=== PATIENT | male | born 1955 | race Caucasian/White ===

== ENCOUNTER 2020-04-17 15:14 | Emergency (ER) | payer MEDICARE, SELFPAY ==
[2020-04-17 16:34] VITALS: BP 203/82; PULSE 60; RESP 20; TEMP 36.6; O2SAT 98; BMI 38.0
[2020-04-17 19:24] VITALS: BP 188/63; PULSE 57; RESP 17; TEMP 36.9; O2SAT 99
--- NOTE | 2020-04-17 19:31 | ED.WEAKNESS ---
HPI - Weakness General Chief complaint: Weakness Stated complaint: SWOLLEN LEGS Time Seen by Provider: 04/17/20 18:25 Source: patient Mode of arrival: ambulatory Limitations: no limitations History of Present Illness HPI Narrative: patient with history of hypertension sleep apnea using CPAP machine the night chronic leg edema came here for 1 week of increased lethargic sleeping during daytime. Patient fairly reliable in using CPAP patient denies any headache also noticed that his leg is more swollen than before and has gained 20 lb in last few weeks patient denied any chest pain but does have shortness of breath on exertion. No cough no fever no nausea no vomiting no diarrhea patient urinating okay at this time no other family member is sick patient would like to get the COVID testing also MD Complaint: generalized weakness Onset (ago): week(s) (1) Duration: constant Location: generalized Migration: none Severity: moderate Related Data Home Medications Medication Instructions Recorded Confirmed albuterol sulfate 90 mcg/actuation 2 puff INHALATION 6XD 04/03/20 04/03/20 aerosol inhaler aspirin 81 mg tablet,delayed 81 mg PO DAILY 04/03/20 04/03/20 release calcitriol 0.5 mcg capsule 0.5 mcg PO DAILY 04/03/20 04/03/20 cyclobenzaprine 5 mg tablet 5 mg PO TID PRN 04/03/20 04/03/20 furosemide 20 mg tablet 20 mg PO DAILY 04/03/20 04/03/20 hydralazine 50 mg tablet 50 mg PO TID 04/03/20 04/03/20 hydroxychloroquine 200 mg tablet 200 mg PO DAILY 04/03/20 04/03/20 losartan 100 mg tablet 100 mg PO DAILY 04/03/20 04/03/20 pravastatin 20 mg tablet 20 mg PO DAILY 04/03/20 04/03/20 prednisone 20 mg tablet 20 mg PO DAILY PRN 04/03/20 04/03/20 terazosin 5 mg capsule 5 mg PO DAILY 04/03/20 04/03/20 tramadol 50 mg tablet 50 mg PO Q8H PRN 04/03/20 04/03/20 Previous Rx's Medication Instructions Recorded allopurinol 100 mg tablet 200 mg PO DAILY #60 tab 04/12/20 Allergies Allergy/AdvReac Type Severity Reaction Status Date / Time No Known Allergies Allergy Verified 04/03/20 15:42 [No Known Allergies*] Review of Systems Review of Systems: REVIEW OF SYSTEMS: Pertinent positives and negatives are stated above in the history. GEN: no fevers, chills, fatigue +++ HEENT: no nasal congestion, sore throat, ear pain NEURO: no headache, dizziness, focal weakness PULM: no cough, shortness of breath CV: no chest pain, palpitations, LE edema ABD: no abdominal pain, nausea, vomiting, diarrhea : no dysuria, urgency, frequency SKIN: no rash ROS otherwise negative x 10 PMFSH Past Medical History Medical History Edema Gout High cholesterol HTN (hypertension) Lupus Social History Social History Household Members: Significant Other Housing: House Alcohol intake: never Smoking Status: Former smoker Smoked in Last 30 Days: No Use of substances other than those prescribed or required for medical reasons: No Advance Directives: No Advance Directives Information Provided: Yes Physical Exam Vital Signs: Vital Signs: Vital Signs Temp Pulse Resp BP Pulse Ox 04/17/20 19:24 98.5 F 57 17 188/63 H 99 04/17/20 16:34 97.8 F 60 20 203/82 H 98 Body Mass Index 38.0 VITAL SIGNS: Reviewed. GENERAL: Well developed, well nourished, in no acute distress. HEAD: Normocephalic/atraumatic, EYES: PERRLA No pallor/icterus noted EARS: normal without abnormality NOSE: Nares patent bilateral OROPHARYNX: Oral mucosa moist no oral lesions NECK: Supple, no adenopathy LUNGS: Normal breath sounds. No adventitious sounds or accessory muscle use CARDIOVASCULAR: Regular rate and rhythm without noted murmurs, no JVD or lower extremity edema. ABDOMEN: Soft, non-tender, non-distended with bowel sounds. No rigidity. No guarding. No palpable masses or hernias noted MUSCULOSKELETAL: No tenderness, deformities, EXTREMITIES:4+ edema.L>R SKIN: no rashes, ulcerations, jaundice, pallor, or petechiae NEUROLOGIC: Alert and oriented x 3. Strength and sensation to light touch were grossly intact Course Course Course Narrative: patient with nonspecific weakness chronic leg edema and chronic renal failure creatinine slightly increased from 1.9 to 2.1 patient has a follow-up plan with urologist [id number] testing is negative chest x-ray negative no signs of fluid overload at this time patient already on Lasix at home advised to continue same and follow with hospital receiving clerk KARY Connor Lab Data Result diagrams: 04/17/20 20:33 04/17/20 20:33 Labs: Lab Results 04/17/20 04/17/20 04/17/20 Range/Units 20:33 20:33 20:33 WBC 4.7 L (4.8-10.8) X10*3/uL RBC 3.59 L (4.60-5.80) X10*6/uL Hgb 11.2 L (14.0-18.0) g/dl Hct 33.3 L (42-52) % MCV 92.8 (80-98) fL MCH 31.2 (27.0-33.0) pg MCHC 33.6 (31.0-36.0) g/dl RDW 14.0 (11.0-16.0) % Plt Count 146 L (160-400) X10*3/uL MPV 10.6 (9.4-12.4) fL Immature Gran % (Auto) 0.2 (0.0-0.4) % Neut % (Auto) 74.2 H (45-73) % Lymph % (Auto) 15.9 L (20-40) % [place] % (Auto) 8.6 (2-11) % Eos % (Auto) 0.0 (0-4) % Baso % (Auto) 1.1 (0-2) % Lymph # (Auto) 0.7 L (1.2-4.9) X10*3/uL [place] # (Auto) 0.4 (0.1-1.2) X10*3/uL Eos # (Auto) 0.0 (0.0-0.4) X10*3/uL Baso # (Auto) 0.1 (0.0-0.2) X10*3/uL Abs Immat Gran (auto) 0.01 (0.00-0.03) X10*3/uL Absolute Neuts (auto) 3.5 (2.0-8.3) X10*3/uL Absolute Nucleated RBC 0.000 (0.0-0.012) X10*3/uL Nucleated RBC % (auto) 0.0 (0.0-0.2) /100WBC Sodium 139 (135-145) mmol/L Potassium 4.3 (3.3-5.1) mmol/l Chloride 107 (96-108) mmol/L Carbon Dioxide 22 (22-29) mmol/L Anion Gap 14 (12-20) BUN 48 H (9-16) mg/dL Creatinine 2.10 H (0.5-1.4) mg/dL Estim Creat Clear Calc 47.0 Estimated GFR 32 Random Glucose 90 (60-115) mg/dL Calcium 8.3 L (8.4-10.2) mg/dL Total Bilirubin 0.8 (0.0-1.0) mg/dL Direct Bilirubin 0.3 (0.0-0.5) mg/dL AST 27 (5-37) U/L ALT 23 (0-40) U/L Alkaline Phosphatase 166 H (39-117) U/L B-Natriuretic Peptide 229 H (<100) pg/mL Total Protein 6.8 (6.5-8.0) g/dL Albumin 4.0 (3.5-5.0) g/dL Urine Color Urine Appearance Urine pH (5.0-8.0) Ur Specific [place] (1.005-1.025) Urine Protein (NEG-TRACE) MG/DL Urine Glucose (UA) (NEG) MG/DL Urine Ketones (NEG) MG/DL Urine Blood (NEG) Urine Nitrite (NEG) Ur Leukocyte Esterase (NEG) Urine RBC (0) /HPF Urine WBC (0-4) /HPF Ur Squamous Epith Cells /LPF Urine Bacteria /LPF Coronavirus (PCR) (Negative) 04/17/20 04/17/20 Range/Units 20:37 21:33 WBC (4.8-10.8) X10*3/uL RBC (4.60-5.80) X10*6/uL Hgb (14.0-18.0) g/dl Hct (42-52) % MCV (80-98) fL MCH (27.0-33.0) pg MCHC (31.0-36.0) g/dl RDW (11.0-16.0) % Plt Count (160-400) X10*3/uL MPV (9.4-12.4) fL Immature Gran % (Auto) (0.0-0.4) % Neut % (Auto) (45-73) % Lymph % (Auto) (20-40) % [place] % (Auto) (2-11) % Eos % (Auto) (0-4) % Baso % (Auto) (0-2) % Lymph # (Auto) (1.2-4.9) X10*3/uL [place] # (Auto) (0.1-1.2) X10*3/uL Eos # (Auto) (0.0-0.4) X10*3/uL Baso # (Auto) (0.0-0.2) X10*3/uL Abs Immat Gran (auto) (0.00-0.03) X10*3/uL Absolute Neuts (auto) (2.0-8.3) X10*3/uL Absolute Nucleated RBC (0.0-0.012) X10*3/uL Nucleated RBC % (auto) (0.0-0.2) /100WBC Sodium (135-145) mmol/L Potassium (3.3-5.1) mmol/l Chloride (96-108) mmol/L Carbon Dioxide (22-29) mmol/L Anion Gap (12-20) BUN (9-16) mg/dL Creatinine (0.5-1.4) mg/dL Estim Creat Clear Calc Estimated GFR Random Glucose (60-115) mg/dL Calcium (8.4-10.2) mg/dL Total Bilirubin (0.0-1.0) mg/dL Direct Bilirubin (0.0-0.5) mg/dL AST (5-37) U/L ALT (0-40) U/L Alkaline Phosphatase (39-117) U/L B-Natriuretic Peptide (<100) pg/mL Total Protein (6.5-8.0) g/dL Albumin (3.5-5.0) g/dL Urine Color COLORLESS Urine Appearance CLEAR Urine pH 5.5 (5.0-8.0) Ur Specific [place] 1.015 (1.005-1.025) Urine Protein 1+ H (NEG-TRACE) MG/DL Urine Glucose (UA) NEG (NEG) MG/DL Urine Ketones NEG (NEG) MG/DL Urine Blood TRACE (NEG) Urine Nitrite NEG (NEG) Ur Leukocyte Esterase NEG (NEG) Urine RBC 0-2 (0) /HPF Urine WBC 0-2 (0-4) /HPF Ur Squamous Epith Cells TRACE /LPF Urine Bacteria NONE /LPF Coronavirus (PCR) NEGATIVE (Negative) Discharge Plan Discharge Clinical Impression: Chronic renal disease Qualifiers: Chronic kidney disease stage: stage 3 (moderate) Chronic kidney disease stage 3 subtype: stage 3b (GFR 30-44) Qualified Code(s): N18.32 - Chronic kidney disease, stage 3b Patient Disposition: Home, Self-Care Instructions: Chronic Kidney Disease (ED) Additional Instructions: continue taking medications and follow-up with urologist. , drink plenty of fluids Prescriptions: No Action allopurinol 100 mg tablet 200 mg PO DAILY Qty: 60 RF: 5 hydroxychloroquine [Plaquenil] 200 mg tablet 200 mg PO DAILY RF: 0 calcitriol 0.5 mcg capsule 0.5 mcg PO DAILY RF: 0 losartan 100 mg tablet 100 mg PO DAILY RF: 0 cyclobenzaprine 5 mg tablet 5 mg PO TID PRNRF: 0 tramadol 50 mg tablet 50 mg PO Q8H PRNRF: 0 albuterol sulfate [ProAir HFA] 90 mcg/actuation HFA aerosol inhaler 2 puff inhalation 6XD RF: 0 furosemide 20 mg tablet 20 mg PO DAILY RF: 0 pravastatin 20 mg tablet 20 mg PO DAILY RF: 0 aspirin [Adult Aspirin Regimen] 81 mg tablet,delayed release (DR/EC) 81 mg PO DAILY RF: 0 hydralazine 50 mg tablet 50 mg PO TID RF: 0 terazosin 5 mg capsule 5 mg PO DAILY RF: 0 prednisone 20 mg tablet 20 mg PO DAILY PRN (Reason: for gout attack) RF: 0 Interventions: ED Discharge Assessment Last Done: 04/17/20 22:51 Discharge Date/Time: 04/17/20 23:07
--- NOTE | 2020-04-17 20:15 | XR_ITS ---
EXAMINATION: XR CHEST CLINICAL INFORMATION: Shortness of breath COMPARISON: Chest x-ray 10/12/2017 TECHNIQUE: Frontal portable view of the chest was obtained. 8:17 PM FINDINGS: Lungs are clear. No pulmonary vascular congestion. There is no pleural effusion. The heart size is normal. The cardiac and mediastinal contours are normal. There are calcifications of the thoracic aorta. There are multilevel degenerative changes of dorsal spine. Partial visualization of the shoulder. Bilateral again demonstrating degenerative changes of glenohumeral joints bilaterally. XR/XR chest 1V IMPRESSION: No acute abnormality of the chest.
--- NOTE | 2020-04-17 20:15 | ECG_ITS ---
Test Reason : WEAKNESS Blood Pressure : / mmHG Vent. Rate : 059 BPM Atrial Rate : 375 BPM P-R Int : 000 ms QRS Dur : 152 ms QT Int : 454 ms P-R-T Axes : 000 -43 037 degrees QTc Int : 449 ms Junctional bradycardia (no P-waves found) Left axis deviation Right bundle branch block Abnormal ECG When compared with ECG of 31-MAY-2018 13:23, (no P-waves found) Referred By: Stephen Tapia Electronically Signed By:ERLINDA ROBERSON MD
[2020-04-17 20:39] LABS: MANUAL DIFF FLAG NO
[2020-04-17 20:40] LABS: Basophils Absolute Auto 0.1 X10*3/uL (0.0-0.2); Basophils Percent Auto 1.1 % (0-2); Hematocrit 33.3 % (42-52); Hemoglobin 11.2 g/dl (14.0-18.0); Imm Gran Abs Auto 0.01 X10*3/uL (0.00-0.03); Imm Gran Pct Auto 0.2 % (0.0-0.4); Lymphocytes Absolute Auto 0.7 X10*3/uL (1.2-4.9); Lymphocytes Percent Auto 15.9 % (20-40); Mean Corpuscular HGB Conc 33.6 g/dl (31.0-36.0); Mean Corpuscular Hemoglobin 31.2 pg (27.0-33.0); Mean Corpuscular Volume 92.8 fL (80-98); Mean Platelet Volume 10.6 fL (9.4-12.4); Monocytes Absolute Auto 0.4 X10*3/uL (0.1-1.2); Monocytes Percent Auto 8.6 % (2-11); Neutrophils Absolute Auto 3.5 X10*3/uL (2.0-8.3); Neutrophils Percent Auto 74.2 % (45-73); Platelet Count 146 X10*3/uL (160-400); Red Blood Count 3.59 X10*6/uL (4.60-5.80); White Blood Count 4.7 X10*3/uL (4.8-10.8)
[2020-04-17 21:08] LABS: Alanine Aminotransferase 23 U/L (0-40); Alkaline Phosphatase 166 U/L (39-117); Anion Gap 14 (12-20); Aspartate Amino Transferase 27 U/L (5-37); Bilirubin Direct 0.3 mg/dL (0.0-0.5); Bilirubin Total 0.8 mg/dL (0.0-1.0); Blood Urea Nitrogen 48 mg/dL (9-16); Calcium 8.3 mg/dL (8.4-10.2); Carbon Dioxide 22 mmol/L (22-29); Chloride 107 mmol/L (96-108); Estimated Glomerular Filt Rate 32; Glucose Random 90 mg/dL (60-115); Potassium 4.3 mmol/l (3.3-5.1); Sodium 139 mmol/L (135-145); Total Protein 6.8 g/dL (6.5-8.0)
[2020-04-17 21:11] LABS: B Type Natriuretic Peptide 229 pg/mL (<100)
[2020-04-17 21:40] LABS: Glucose Urine UA NEG (NEG); Leukocyte Esterase Urine NEG (NEG); Nitrite Urine NEG (NEG); PH 5.5 (5.0-8.0); Specific Gravity - Urine 1.015 (1.005-1.025); Urine Blood TRACE (NEG); Urine Ketones NEG (NEG); Urine Protein 1+ MG/DL (NEG-TRACE)
[2020-04-17 21:41] LABS: Appearance Urine CLEAR; Color Urine COLORLESS
[2020-04-17 21:50] LABS: WBC Urine 0-2 /HPF (0-4)
[2020-04-17 21:51] LABS: RBC Urine 0-2 /HPF (0); Squamous Epithelial Cell Urine TRACE /LPF
[2020-04-17 22:22] LABS: SARS COV2 PCR INHOUSE NEGATIVE (Negative)
== END 2020-04-17 23:07 | disposition home or self-care (01) ==
PROVIDERS: Emergency Provider Internal Medicine; PCP Internal Medicine
DX: I12.9 Hypertensive chronic kidney disease with stage 1 through stage 4 chronic kidney disease, or unspecified chronic kidney disease (principal); N18.32 Chronic kidney disease, stage 3b; R60.0 Localized edema; G47.33 Obstructive sleep apnea (adult) (pediatric); Z20.828 Contact with and (suspected) exposure to other viral communicable diseases; Z79.899 Other long term (current) drug therapy; Z87.891 Personal history of nicotine dependence
CPT/HCPCS: 36415; 71045; 80048; 80076; 81001; 83880; 85025; 93005; 99283; 99284; U0003

== ENCOUNTER 2020-05-04 14:59 | Outpatient (REF) | payer MEDICARE, SELFPAY ==
[2020-05-04 16:21] LABS: MANUAL DIFF FLAG NO
[2020-05-04 16:26] LABS: Appearance Urine CLEAR; Basophils Absolute Auto 0.1 X10*3/uL (0.0-0.2); Color Urine YELLOW; Eosinophils Absolute Auto 0.1 X10*3/uL (0.0-0.4); Glucose Urine UA NEG (NEG); Hematocrit 32.3 % (42-52); Hemoglobin 10.7 g/dl (14.0-18.0); Imm Gran Abs Auto 0.02 X10*3/uL (0.00-0.03); Imm Gran Pct Auto 0.4 % (0.0-0.4); Leukocyte Esterase Urine NEG (NEG); Lymphocytes Absolute Auto 0.8 X10*3/uL (1.2-4.9); Lymphocytes Percent Auto 16.4 % (20-40); Mean Corpuscular HGB Conc 33.1 g/dl (31.0-36.0); Mean Corpuscular Volume 93.6 fL (80-98); Mean Platelet Volume 10.8 fL (9.4-12.4); Monocytes Absolute Auto 0.4 X10*3/uL (0.1-1.2); Monocytes Percent Auto 7.2 % (2-11); Neutrophils Absolute Auto 3.6 X10*3/uL (2.0-8.3); Nitrite Urine NEG (NEG); Platelet Count 137 X10*3/uL (160-400); Red Blood Count 3.45 X10*6/uL (4.60-5.80); Red Cell Distribution Width 14.8 % (11.0-16.0); Urine Blood NEG (NEG); Urine Ketones NEG (NEG); Urine Protein TRACE MG/DL (NEG-TRACE); White Blood Count 4.8 X10*3/uL (4.8-10.8)
[2020-05-04 16:32] LABS: RBC Urine 0 /HPF (0); WBC Urine 0 /HPF (0-4)
[2020-05-04 16:44] LABS: Cholesterol 129 mg/dL; HDL Cholesterol 44 mg/dL; LDL Cholesterol Calculated 68 mg/dl; Triglycerides 87 mg/dL
[2020-05-04 16:45] LABS: Alanine Aminotransferase 24 U/L (0-40); Albumin Level 3.9 g/dL (3.5-5.0); Alkaline Phosphatase 144 U/L (39-117); Anion Gap 12 (12-20); Aspartate Amino Transferase 25 U/L (5-37); Bilirubin Total 0.6 mg/dL (0.0-1.0); Blood Urea Nitrogen 59 mg/dL (9-16); C Reactive Protein 0.58 mg/dL (< or = 0.50); Calcium 8.5 mg/dL (8.4-10.2); Carbon Dioxide 25 mmol/L (22-29); Chloride 107 mmol/L (96-108); Estimated Glomerular Filt Rate 32; Glucose Random 90 mg/dL (60-115); Potassium 4.4 mmol/l (3.3-5.1); Sodium 140 mmol/L (135-145); Total Protein 6.8 g/dL (6.5-8.0); Uric Acid 5.9 mg/dL (3.4-7.0)
[2020-05-04 16:53] LABS: Creatinine Urine 32.71 mg/dL; Microalbum/Creatinine Ratio Ur 690.9 ug/mg cr
[2020-05-04 17:07] LABS: Free T4 (Free Thyroxine) 1.09 ng/dL (0.71-1.85); Thyroid Stimulating Hormone 1.23 uIU/mL (0.32-4.0)
[2020-05-04 18:17] LABS: Erythrocyte Sedimentation Rate 29 MM/HR (0-15)
[2020-05-05 11:06] LABS: Anti DNA DS Antibody 27 IU/mL
[2020-05-07 16:42] LABS: Complement C3 87 mg/dL (82-185)
== END 2020-05-04 15:00 | disposition home or self-care (01) ==
LOC: HO.LAB 14:59
PROVIDERS: Student in an Organized Health Care Education/Training Program; PCP Internal Medicine; Visit Provider Internal Medicine
DX: M32.9 Systemic lupus erythematosus, unspecified (principal); M1A.00X0 Idiopathic chronic gout, unspecified site, without tophus (tophi); E11.65 Type 2 diabetes mellitus with hyperglycemia; E78.00 Pure hypercholesterolemia, unspecified; I10 Essential (primary) hypertension
CPT/HCPCS: 36415; 80053; 80061; 81001; 82043; 84439; 84443; 84550; 85025; 85652; 86140; 86160; 86225

== ENCOUNTER 2020-07-05 13:41 | Outpatient (REF) | payer MEDICARE, SELFPAY ==
[2020-07-05 14:51] LABS: Appearance Urine CLEAR; Color Urine YELLOW; Glucose Urine UA NEG (NEG); Leukocyte Esterase Urine NEG (NEG); Nitrite Urine NEG (NEG); PH 5.5 (5.0-8.0); Urine Blood NEG (NEG); Urine Ketones NEG (NEG); Urine Protein 2+ MG/DL (NEG-TRACE)
[2020-07-05 15:01] LABS: Basophils Absolute Auto 0.1 X10*3/uL (0.0-0.2); Basophils Percent Auto 1.3 % (0-2); Hematocrit 30.4 % (42-52); Hemoglobin 10.2 g/dl (14.0-18.0); Imm Gran Abs Auto 0.01 X10*3/uL (0.00-0.03); Imm Gran Pct Auto 0.3 % (0.0-0.4); Lymphocytes Absolute Auto 0.6 X10*3/uL (1.2-4.9); Lymphocytes Percent Auto 15.8 % (20-40); MANUAL DIFF FLAG SCAN; Mean Corpuscular HGB Conc 33.6 g/dl (31.0-36.0); Mean Corpuscular Hemoglobin 31.9 pg (27.0-33.0); Mean Platelet Volume 10.9 fL (9.4-12.4); Monocytes Absolute Auto 0.3 X10*3/uL (0.1-1.2); Monocytes Percent Auto 7.7 % (2-11); Neutrophils Absolute Auto 2.9 X10*3/uL (2.0-8.3); Neutrophils Percent Auto 73.9 % (45-73); Platelet Count 141 X10*3/uL (160-400); Red Cell Distribution Width 14.1 % (11.0-16.0); SCAN SMEAR FLAG 1; White Blood Count 3.9 X10*3/uL (4.8-10.8)
[2020-07-05 15:03] LABS: RBC Urine 0-2 /HPF (0); Squamous Epithelial Cell Urine TRACE /LPF; WBC Urine 0-2 /HPF (0-4)
[2020-07-05 15:04] LABS: Estimated Average Glucose 108 mg/dL; Hemoglobin A1c % 5.4 %
[2020-07-05 15:20] LABS: Alanine Aminotransferase 19 U/L (0-40); Albumin Level 3.9 g/dL (3.5-5.0); Alkaline Phosphatase 155 U/L (39-117); Anion Gap 13 (12-20); Aspartate Amino Transferase 22 U/L (5-37); Bilirubin Total 0.5 mg/dL (0.0-1.0); Blood Urea Nitrogen 57 mg/dL (9-16); C Reactive Protein 1.58 mg/dL (< or = 0.50); Calcium 8.6 mg/dL (8.4-10.2); Carbon Dioxide 25 mmol/L (22-29); Chloride 105 mmol/L (96-108); Estimated Glomerular Filt Rate 30; Glucose Random 104 mg/dL (60-115); Potassium 4.3 mmol/l (3.3-5.1); Sodium 139 mmol/L (135-145); Total Protein 6.6 g/dL (6.5-8.0)
[2020-07-05 15:36] LABS: SLIDE REVIEW VERIFIED
[2020-07-05 15:46] LABS: Erythrocyte Sedimentation Rate 37 MM/HR (0-15)
[2020-07-06 13:27] LABS: Complement C3 110 mg/dL (82-185)
[2020-07-07 12:37] LABS: Anti DNA DS Antibody 22 IU/mL
[2020-07-10 12:22] LABS: Histone Antibody 1.5 U (<1.0)
== END 2020-07-05 13:42 | disposition home or self-care (01) ==
LOC: HO.LAB 13:41
PROVIDERS: PCP Internal Medicine; Referring Provider Internal Medicine; Visit Provider Student in an Organized Health Care Education/Training Program
DX: M32.9 Systemic lupus erythematosus, unspecified (principal); M1A.00X0 Idiopathic chronic gout, unspecified site, without tophus (tophi); E11.65 Type 2 diabetes mellitus with hyperglycemia; Z87.891 Personal history of nicotine dependence; Z79.899 Other long term (current) drug therapy
CPT/HCPCS: 36415; 80053; 81001; 83036; 83516; 84550; 85025; 85652; 86140; 86160; 86225; 99212

== ENCOUNTER 2020-10-16 13:13 | Outpatient (REF) | payer MEDICARE, SELFPAY ==
[2020-10-16 15:14] LABS: Basophils Percent Auto 0.6 % (0-2); Hematocrit 26.1 % (42-52); Imm Gran Abs Auto 0.01 X10*3/uL (0.00-0.03); Imm Gran Pct Auto 0.2 % (0.0-0.4); Lymphocytes Absolute Auto 0.6 X10*3/uL (1.2-4.9); Lymphocytes Percent Auto 11.8 % (20-40); MANUAL DIFF FLAG SCAN; Mean Corpuscular Hemoglobin 31.4 pg (27.0-33.0); Mean Corpuscular Volume 95.3 fL (80-98); Mean Platelet Volume 11.3 fL (9.4-12.4); Monocytes Absolute Auto 0.4 X10*3/uL (0.1-1.2); Monocytes Percent Auto 7.8 % (2-11); Neutrophils Percent Auto 79.6 % (45-73); Platelet Count 144 X10*3/uL (160-400); Red Blood Count 2.74 X10*6/uL (4.60-5.80); Red Cell Distribution Width 14.6 % (11.0-16.0); SCAN SMEAR FLAG 1
[2020-10-16 15:17] LABS: Glucose Urine UA NEG (NEG); Leukocyte Esterase Urine NEG (NEG); Nitrite Urine NEG (NEG); PH 5.5 (5.0-8.0); Urine Blood NEG (NEG); Urine Ketones NEG (NEG); Urine Protein TRACE MG/DL (NEG-TRACE)
[2020-10-16 15:19] LABS: Appearance Urine CLEAR; Color Urine YELLOW
[2020-10-16 15:21] LABS: Estimated Average Glucose 103 mg/dL; Hemoglobin A1c % 5.2 %
[2020-10-16 15:22] LABS: Immature Retic Fraction 6.9 % (2.3-13.4); Retic HGB Equivalent 32.5 pg (30.0-35.0); Reticulocyte Percent 1.1 % (0.5-1.8)
[2020-10-16 15:26] LABS: Hemoglobin 8.6 g/dl (14.0-18.0)
[2020-10-16 15:29] LABS: B Type Natriuretic Peptide 226 pg/mL (<100)
[2020-10-16 15:34] LABS: RBC Urine 0 /HPF (0); WBC Urine 0 /HPF (0-4)
[2020-10-16 15:40] LABS: Uric Acid 5.3 mg/dL (3.4-7.0)
[2020-10-16 15:51] LABS: Thyroid Stimulating Hormone 1.17 uIU/mL (0.32-4.0)
[2020-10-16 15:55] LABS: SLIDE REVIEW VERIFIED
[2020-10-16 15:59] LABS: Alanine Aminotransferase 13 U/L (0-40); Albumin Level 3.4 g/dL (3.5-5.0); Alkaline Phosphatase 151 U/L (39-117); Anion Gap 14 (12-20); Aspartate Amino Transferase 19 U/L (5-37); Bilirubin Total 0.6 mg/dL (0.0-1.0); Blood Urea Nitrogen 65 mg/dL (9-16); C Reactive Protein 5.95 mg/dL (< or = 0.50); Calcium 8.2 mg/dL (8.4-10.2); Carbon Dioxide 18 mmol/L (22-29); Chloride 111 mmol/L (96-108); Estimated Glomerular Filt Rate 26; Glucose Random 104 mg/dL (60-115); Iron 24 mcg/dL (45-160); Percent Iron Saturation 12 % (15-50); Potassium 4.7 mmol/L (3.3-5.1); Sodium 138 mmol/L (135-145); Total Iron Binding Capacity 208 mcg/dL (228-428); Total Protein 6.2 g/dL (6.5-8.0); Unsaturated Iron Binding 184 ug/dL
[2020-10-16 16:00] LABS: Free T4 (Free Thyroxine) 0.94 ng/dL (0.71-1.85); Prostate Specific Antigen Scr 1.03 ng/mL (<0.05-4.0)
[2020-10-16 16:09] LABS: Folate 18.6 ng/mL (> or = 4.0); Vitamin B12 600 pg/mL (200-900)
[2020-10-16 16:29] LABS: Erythrocyte Sedimentation Rate 55 MM/HR (0-15)
[2020-10-16 16:36] LABS: Ferritin 272 ng/mL (20-250)
[2020-10-17 11:26] LABS: Anti DNA DS Antibody 15 IU/mL
[2020-10-17 12:17] LABS: Complement C3 122 mg/dL (82-185)
== END 2020-10-16 13:14 | disposition home or self-care (01) ==
LOC: HO.LAB 13:13
PROVIDERS: PCP Internal Medicine; Visit Provider Student in an Organized Health Care Education/Training Program
DX: M32.9 Systemic lupus erythematosus, unspecified (principal); M1A.00X0 Idiopathic chronic gout, unspecified site, without tophus (tophi); E78.00 Pure hypercholesterolemia, unspecified; E11.65 Type 2 diabetes mellitus with hyperglycemia; I73.9 Peripheral vascular disease, unspecified; Z79.899 Other long term (current) drug therapy
CPT/HCPCS: 36415; 80053; 81001; 82607; 82728; 82746; 83036; 83540; 83880; 84153; 84439; 84443; 84550; 85025; 85045; 85652; 86140; 86160; 86225; 99212

== ENCOUNTER 2020-10-26 08:37 | Outpatient (RCR) | payer MEDICARE, SELFPAY | END 2020-10-31 09:12 | disposition home or self-care (01) | LOC: HO.WCC 08:37 | PROVIDERS: Visit Provider Physician Assistant | DX: E11.40 Type 2 diabetes mellitus with diabetic neuropathy, unspecified (principal); Q82.0 Hereditary lymphedema; M10.00 Idiopathic gout, unspecified site; Z79.899 Other long term (current) drug therapy | CPT/HCPCS: 99202 ==

== ENCOUNTER 2020-12-17 20:20 | Emergency (ER) | payer MEDICARE, SELFPAY ==
--- NOTE | ~2020-12-17 | XR_ITS ---
EXAMINATION: XR CHEST CLINICAL INFORMATION: Evaluate for pulmonary edema COMPARISON: 04/17/2020 TECHNIQUE: Frontal view of the chest was obtained. FINDINGS: There is pulmonary venous congestion without overt edema. Normal heart size for portable technique. Aorta is atherosclerotic. No focal consolidation. No pleural effusion or pneumothorax. Severe degenerative changes of the bilateral glenohumeral joints. XR/XR chest 1V IMPRESSION: Pulmonary venous congestion without overt edema.
[2020-12-17 20:28] VITALS: BP 130/46; PULSE 67; RESP 18; TEMP 36.9; O2SAT 95; BMI 39.3
--- NOTE | 2020-12-17 20:57 | ED_ITS ---
HPI - General Adult General Chief complaint: General Medical Stated complaint: enlarge scrotum Time Seen by Provider: 12/17/20 20:40 Source: patient Mode of arrival: ambulatory Limitations: no limitations History of Present Illness HPI narrative: patient comes emergency room complaining of an enlarged scrotum for the last 2 days, denies testicular pain. Patient denies pain. patient has been taking Lasix for several months now. Patient also has chronic lymphedema. Patient denies dysuria. Of note, patient states that he is known to be anemic, he is due for an iron infusion this week. Patient denies fever chills Related Data Home Medications Medication Instructions Recorded Confirmed aspirin 81 mg tablet,delayed 81 mg PO DAILY 04/03/20 12/03/20 release calcitriol 0.5 mcg capsule 0.5 mcg PO DAILY 04/03/20 12/03/20 hydralazine 50 mg tablet 50 mg PO TID 04/03/20 12/03/20 losartan 100 mg tablet 100 mg PO DAILY 04/03/20 12/03/20 furosemide 40 mg tablet 80 mg PO DAILY tab 05/01/20 12/03/20 nifedipine 90 mg tablet,extended 90 mg PO DAILY 05/01/20 12/03/20 release albuterol sulfate 90 mcg/actuation 2 puff INHALATION 6XD PRN 07/05/20 12/03/20 aerosol inhaler Previous Rx's Medication Instructions Recorded allopurinol 300 mg tablet 300 mg PO DAILY #90 tab 07/03/20 tramadol 50 mg tablet 50 mg PO Q8H PRN #90 tab 07/05/20 terazosin 5 mg capsule 5 mg PO DAILY #90 cap 07/12/20 pravastatin 20 mg tablet 20 mg PO BEDTIME #90 tab 08/23/20 kylah.stocking,knee,reg,xlrg #12 ea 11/01/20 miscellaneous medical supply 1 ea MISCELLANEOUS DAILY #1 ea 11/27/20 Juxta Lite Compression wraps - #2 ea 12/04/20 Adjustable -for chronic ulcers with open wounds bilat lower extremities hydroxychloroquine 200 mg tablet 400 mg PO DAILY #60 tab 12/06/20 Allergies Allergy/AdvReac Type Severity Reaction Status Date / Time No Known Allergies Allergy Verified 12/03/20 17:30 [No Known Allergies*] Review of Systems Review of Systems: Constitutional : No Weight loss, No Fever, No Chills, No Night Sweats, No Fatigue, No Malaise ENT/Mouth : No Hearing loss, No Ear Pain, No Nasal Congestion, No Sinus Pain, No Hoarseness, No sore throat, No Rhinorrhea, No Swallowing Difficulty Eyes: No Eye Pain, No Swelling, No Redness, No Foreign Body, No Discharge, No Vision Changes Cardiovascular : No Chest Pain, No SOB, No Dyspnea on Exertion, No Orthopnea, No Edema, No Palpitations Respiratory : No Cough, No Sputum, No Wheezing, No Smoke Exposure, No Dyspnea Gastrointestinal : No Nausea, No Vomiting, No Diarrhea, No Constipation, No abdominal Pain, No Hematochezia, No Melena Genitourinary : complaining of scrotal swelling, denies testicular pain, No Dysuria, No Urinary Frequency, No Hematuria, No Urinary Incontinence, No Urgency, No Flank Pain, No Urinary Flow Changes, No Hesitancy Musculoskeletal : No joint pain, No Myalgias, No Joint Swelling Skin : chronic bilateral lymphedema Neuro : No Weakness, No Numbness, No Paresthesias, No Loss of Consciousness, No Dizziness, No Headache Psych : No Anxiety/Panic, No Depression, No SI/HI/AH/VH, No Social Issues, Heme/Lymph: No Bruising, No Bleeding,No Lymphadenopathy Endocrine : No Polyuria, No Polydipsia, No Temperature Intolerance [facility], [facility] Past Medical History Medical History Abdominal distension Anemia Anxiety and depression BPH (benign prostatic hyperplasia) Chronic kidney disease COPD (chronic obstructive pulmonary disease) Diabetic retinopathy Edema Essential thrombocytopenia Gout High cholesterol HTN (hypertension) Hypercholesterolemia Lumbar degenerative disc disease Lupus Lymphedema Obesity (BMI 30-39.9) Obstructive sleep apnea Osteoarthritis Peripheral neuropathy Peripheral vascular disease Pulmonary hypertension Type 2 diabetes mellitus with hyperglycemia Venous stasis dermatitis Surgical History H/O prior ablation treatment History of bilateral cataract extraction History of carpal tunnel release History of tonsillectomy Family History Family History Father Prostate cancer CVD (cardiovascular disease) Mother Hemochromatosis Brother Motor vehicle accident Sister CAD (coronary artery disease) Maternal Grandfather Myocardial infarction Social History Social History Household Members: Significant Other Housing: House Alcohol intake: never Patient Tobacco Use Status: Former Tobacco user e-Cigarette/Vaping Use: Never Used Second Hand Smoke Exposure: Yes Advance Directives: No service: No Current occupational status: retired and disabled Physical Exam Vital Signs: Vital Signs: Last Vital Signs Temp 98.4 F 12/17/20 20:28 Pulse 64 12/17/20 23:51 Resp 22 H 12/17/20 23:51 BP 144/48 H 12/17/20 23:51 Pulse Ox 95 12/17/20 23:51 Body Mass Index 39.3 Appearance: Alert. Oriented X3. No acute distress. Eyes: Pupils equal, round and reactive to light. ENT: Pharynx normal. Neck: Normal inspection. Neck supple. No lymph nodes noted. No crepitus CVS: Normal heart rate and rhythm. Pulses normal. Normal S1 and S2 Respiratory: No respiratory distress. Breath sounds normal. No Wheezing. No rales Abdomen: Soft and nontender. No rigidity. distended per patient at baseline : no testicular pain, moderate scrotal swelling, no pain to palpation over the penis Skin: Skin warm and dry. chronic bilateral lower extremity lymphedema, candidiasis in inguinal folds Extremities: No lower extremity edema. No lower extremity edema. No Lacerations. No Rash Neuro: Oriented X 3. No motor deficit. No sensory deficit. Moving all extermities. No slurred speech. Course Course Course Narrative: I reviewed the labs with the patient, they are at baseline. I discussed with the patient increasing his dose of Lasix, at this time, patient would prefer not to do so. I discussed with the patient the option of conservative treatment such as wrapping the scrotum and a towel and applying pressure. Patient states that he has no pain at all. Patient ready for discharge Medical Decision Making Lab Data Result diagrams: 12/17/20 21:12 12/17/20 21:12 Labs: Lab Results 12/17/20 12/17/20 12/17/20 Range/Units 21:12 21:12 21:12 WBC 4.7 L (4.8-10.8) X10*3/uL RBC 2.90 L (4.60-5.80) X10*6/uL Hgb 9.1 L (14.0-18.0) g/dl Hct 28.3 L (42-52) % MCV 97.6 (80-98) fL MCH 31.4 (27.0-33.0) pg MCHC 32.2 (31.0-36.0) g/dl RDW 15.2 (11.0-16.0) % Plt Count 136 L (160-400) X10*3/uL MPV 9.9 (9.4-12.4) fL Immature Gran % (Auto) 0.4 (0.0-0.4) % Neut % (Auto) 75.6 H (45-73) % Lymph % (Auto) 14.6 L (20-40) % [place] % (Auto) 8.8 (2-11) % Eos % (Auto) 0.0 (0-4) % Baso % (Auto) 0.6 (0-2) % Lymph # (Auto) 0.7 L (1.2-4.9) X10*3/uL [place] # (Auto) 0.4 (0.1-1.2) X10*3/uL Eos # (Auto) 0.0 (0.0-0.4) X10*3/uL Baso # (Auto) 0.0 (0.0-0.2) X10*3/uL Abs Immat Gran (auto) 0.02 (0.00-0.03) X10*3/uL Absolute Neuts (auto) 3.5 (2.0-8.3) X10*3/uL Absolute Nucleated RBC 0.000 (0.0-0.012) X10*3/uL Nucleated RBC % (auto) 0.0 (0.0-0.2) /100WBC Sodium 142 (135-145) mmol/L Potassium 4.0 (3.3-5.1) mmol/L Chloride 111 H (96-108) mmol/L Carbon Dioxide 19 L (22-29) mmol/L Anion Gap 16 (12-20) BUN 40 H (9-16) mg/dL Creatinine 2.46 H (0.5-1.4) mg/dL Estim Creat Clear Calc 40.8 Estimated GFR 26 Random Glucose 108 (60-115) mg/dL Calcium 8.4 (8.4-10.2) mg/dL Total Bilirubin 0.8 (0.0-1.0) mg/dL Direct Bilirubin 0.3 (0.0-0.5) mg/dL AST 18 (5-37) U/L ALT 14 (0-40) U/L Alkaline Phosphatase 166 H (39-117) U/L B-Natriuretic Peptide (<100) pg/mL Total Protein 6.2 L (6.5-8.0) g/dL Albumin 3.5 (3.5-5.0) g/dL Urine Color Urine Appearance Urine pH (5.0-8.0) Ur Specific [place] (1.005-1.025) Urine Protein (NEG-TRACE) MG/DL Urine Glucose (UA) (NEG) MG/DL Urine Ketones (NEG) MG/DL Urine Blood (NEG) Urine Nitrite (NEG) Ur Leukocyte Esterase (NEG) 12/17/20 12/17/20 Range/Units 21:12 23:54 WBC (4.8-10.8) X10*3/uL RBC (4.60-5.80) X10*6/uL Hgb (14.0-18.0) g/dl Hct (42-52) % MCV (80-98) fL MCH (27.0-33.0) pg MCHC (31.0-36.0) g/dl RDW (11.0-16.0) % Plt Count (160-400) X10*3/uL MPV (9.4-12.4) fL Immature Gran % (Auto) (0.0-0.4) % Neut % (Auto) (45-73) % Lymph % (Auto) (20-40) % [place] % (Auto) (2-11) % Eos % (Auto) (0-4) % Baso % (Auto) (0-2) % Lymph # (Auto) (1.2-4.9) X10*3/uL [place] # (Auto) (0.1-1.2) X10*3/uL Eos # (Auto) (0.0-0.4) X10*3/uL Baso # (Auto) (0.0-0.2) X10*3/uL Abs Immat Gran (auto) (0.00-0.03) X10*3/uL Absolute Neuts (auto) (2.0-8.3) X10*3/uL Absolute Nucleated RBC (0.0-0.012) X10*3/uL Nucleated RBC % (auto) (0.0-0.2) /100WBC Sodium (135-145) mmol/L Potassium (3.3-5.1) mmol/L Chloride (96-108) mmol/L Carbon Dioxide (22-29) mmol/L Anion Gap (12-20) BUN (9-16) mg/dL Creatinine (0.5-1.4) mg/dL Estim Creat Clear Calc Estimated GFR Random Glucose (60-115) mg/dL Calcium (8.4-10.2) mg/dL Total Bilirubin (0.0-1.0) mg/dL Direct Bilirubin (0.0-0.5) mg/dL AST (5-37) U/L ALT (0-40) U/L Alkaline Phosphatase (39-117) U/L B-Natriuretic Peptide 358 H (<100) pg/mL Total Protein (6.5-8.0) g/dL Albumin (3.5-5.0) g/dL Urine Color YELLOW Urine Appearance CLEAR Urine pH 5.5 (5.0-8.0) Ur Specific [place] 1.025 (1.005-1.025) Urine Protein TRACE (NEG-TRACE) MG/DL Urine Glucose (UA) NEG (NEG) MG/DL Urine Ketones NEG (NEG) MG/DL Urine Blood NEG (NEG) Urine Nitrite NEG (NEG) Ur Leukocyte Esterase NEG (NEG) Discharge Plan Discharge Clinical Impression: Scrotal swelling Patient Disposition: Home, Self-Care Instructions: Hydrocele (ED) Additional Instructions: Please follow-up with your primary care physician tomorrow. If you have any worsening or new symptoms, please return to the emergency room or call 911 Prescriptions: No Action allopurinol 300 mg tablet 300 mg PO DAILY Qty: 90 RF: 1 terazosin 5 mg capsule 5 mg PO DAILY Qty: 90 RF: 3 pravastatin 20 mg tablet 20 mg PO BEDTIME Qty: 90 RF: 3 (DME) kylah.stocking,knee,reg,xlrg Misc See Rx Instructions .ROUTE .MEDSUPPLY Qty: 12 RF: 0 miscellaneous medical supply Misc 1 ea miscellaneous DAILY Qty: 1 RF: 0 (DME) Juxta Lite Compression wraps - Adjustable -for chronic ulcers with open wounds bilat lower extremities See Rx Instructions .Route .MEDSUPPLY Qty: 2 RF: 0 hydroxychloroquine 200 mg tablet 400 mg PO DAILY Qty: 60 RF: 5 furosemide 40 mg tablet 80 mg PO DAILY RF: 0 nifedipine 90 mg tablet extended release 90 mg PO DAILY RF: 0 calcitriol 0.5 mcg capsule 0.5 mcg PO DAILY RF: 0 losartan 100 mg tablet 100 mg PO DAILY RF: 0 aspirin [Adult Aspirin Regimen] 81 mg tablet,delayed release (DR/EC) 81 mg PO DAILY RF: 0 hydralazine 50 mg tablet 50 mg PO TID RF: 0 albuterol sulfate [ProAir HFA] 90 mcg/actuation HFA aerosol inhaler 2 puff inhalation 6XD PRNRF: 0 tramadol 50 mg tablet 50 mg PO Q8H PRN (Reason: pain) Qty: 90 RF: 5
[2020-12-17 21:16] LABS: MANUAL DIFF FLAG NO
[2020-12-17 21:18] LABS: Basophils Percent Auto 0.6 % (0-2); Hematocrit 28.3 % (42-52); Hemoglobin 9.1 g/dl (14.0-18.0); Imm Gran Abs Auto 0.02 X10*3/uL (0.00-0.03); Imm Gran Pct Auto 0.4 % (0.0-0.4); Lymphocytes Absolute Auto 0.7 X10*3/uL (1.2-4.9); Lymphocytes Percent Auto 14.6 % (20-40); Mean Corpuscular HGB Conc 32.2 g/dl (31.0-36.0); Mean Corpuscular Hemoglobin 31.4 pg (27.0-33.0); Mean Corpuscular Volume 97.6 fL (80-98); Mean Platelet Volume 9.9 fL (9.4-12.4); Monocytes Absolute Auto 0.4 X10*3/uL (0.1-1.2); Monocytes Percent Auto 8.8 % (2-11); Neutrophils Absolute Auto 3.5 X10*3/uL (2.0-8.3); Neutrophils Percent Auto 75.6 % (45-73); Platelet Count 136 X10*3/uL (160-400); Red Cell Distribution Width 15.2 % (11.0-16.0); White Blood Count 4.7 X10*3/uL (4.8-10.8)
[2020-12-17 21:42] LABS: Anion Gap 16 (12-20); Blood Urea Nitrogen 40 mg/dL (9-16); Calcium 8.4 mg/dL (8.4-10.2); Carbon Dioxide 19 mmol/L (22-29); Chloride 111 mmol/L (96-108); Creatinine Clr Calc Pharmacy 40.8; Estimated Glomerular Filt Rate 26; Glucose Random 108 mg/dL (60-115); Sodium 142 mmol/L (135-145)
[2020-12-17 21:44] LABS: Alanine Aminotransferase 14 U/L (0-40); Albumin Level 3.5 g/dL (3.5-5.0); Alkaline Phosphatase 166 U/L (39-117); Aspartate Amino Transferase 18 U/L (5-37); Bilirubin Direct 0.3 mg/dL (0.0-0.5); Bilirubin Total 0.8 mg/dL (0.0-1.0); Total Protein 6.2 g/dL (6.5-8.0)
[2020-12-17 21:47] LABS: B Type Natriuretic Peptide 358 pg/mL (<100)
[2020-12-17 23:51] VITALS: BP 144/48; PULSE 64; RESP 22; O2SAT 95
[2020-12-17 23:59] LABS: Appearance Urine CLEAR; Color Urine YELLOW; Glucose Urine UA NEG (NEG); Leukocyte Esterase Urine NEG (NEG); Nitrite Urine NEG (NEG); PH 5.5 (5.0-8.0); Specific Gravity - Urine 1.025 (1.005-1.025); UACC Culture Trigger NO; Urine Blood NEG (NEG); Urine Ketones NEG (NEG); Urine Protein TRACE MG/DL (NEG-TRACE)
== END 2020-12-18 00:15 | disposition home or self-care (01) ==
PROVIDERS: Emergency Provider Emergency Medicine; PCP Internal Medicine
DX: N50.89 Other specified disorders of the male genital organs (principal); D64.9 Anemia, unspecified; Z79.82 Long term (current) use of aspirin; Z79.899 Other long term (current) drug therapy; E11.22 Type 2 diabetes mellitus with diabetic chronic kidney disease; I12.9 Hypertensive chronic kidney disease with stage 1 through stage 4 chronic kidney disease, or unspecified chronic kidney disease; N18.9 Chronic kidney disease, unspecified; J44.9 Chronic obstructive pulmonary disease, unspecified; E78.00 Pure hypercholesterolemia, unspecified; Z79.02 Long term (current) use of antithrombotics/antiplatelets
CPT/HCPCS: 36415; 71045; 80048; 80076; 81003; 83880; 85025; 99283; 99284

== ENCOUNTER 2020-12-24 14:03 | Outpatient (REF) | payer MEDICARE, SELFPAY ==
--- NOTE | ~2020-12-24 | CT_ITS ---
EXAMINATION: CT ABDOMEN AND PELVIS WITHOUT CONTRAST CLINICAL INFORMATION: Other specified soft tissue disorder COMPARISON: Bladder ultrasound September 2013 and MRA of the abdomen January 2013 TECHNIQUE: Multidetector volumetric imaging was performed from the superior aspect of the liver through the pubic symphysis. Sagittal and coronal reformatted images were obtained on the technologist's workstation. This CT examination was performed using dose optimization techniques as appropriate, variously including the following: *Automated exposure control *Adjustment of mA and/or kV according to patient size (this includes techniques or standardized protocols for targeted exams where dose is matched to indication/reason for exam; i.e. extremities or head) *Use of iterative reconstruction technique DLP: 899 mGy-cm FINDINGS: LUNG BASES: There is a small right pleural effusion. LIVER, GALLBLADDER, AND BILIARY TREE: The liver is cirrhotic. No focal liver lesion is seen. The gallbladder is unremarkable. There is no biliary duct dilatation. There is a small amount of ascites. PANCREAS: Unremarkable. SPLEEN: Unremarkable. ADRENAL GLANDS: Unremarkable. KIDNEYS AND URETERS: The kidneys are normal in size, shape, and attenuation. No hydronephrosis, hydroureter, or calculi seen. No perinephric stranding. BLADDER: Unremarkable. GASTROINTESTINAL TRACT: The small and large bowel are unremarkable. The appendix is unremarkable. ABDOMINAL WALL: No significant hernia is appreciated. There is subcutaneous edema or anasarca, greatest in the bilateral lower abdominal wall. LYMPH NODES: There is diffuse lymphadenopathy. Largest lymph node is a right inguinal lymph node measuring 2 x 4 cm axial image 89 series 3. There are smaller retroperitoneal lymph nodes in the abdomen and pelvis. There is periportal and peripancreatic shotty lymphadenopathy. There is a fat stranding seen in the root of the small bowel mesentery. VASCULAR: There is evidence of atherosclerotic disease. PELVIC VISCERA: Unremarkable. OSSEOUS STRUCTURES: There are degenerative changes of the spine. CT/CT abdomen pelvis wo con IMPRESSION: Cirrhotic appearing liver and small amount of ascites. Diffuse lymphadenopathy, largest in the right inguinal region. Small right pleural effusion. Anasarca of the bilateral lower abdominal wall.
== END 2020-12-24 14:04 | disposition home or self-care (01) ==
LOC: HO.CT 14:03
PROVIDERS: Visit Provider Internal Medicine
DX: R14.0 Abdominal distension (gaseous) (principal); M79.89 Other specified soft tissue disorders
CPT/HCPCS: 74176

== ENCOUNTER 2021-01-01 16:37 | Outpatient (REF) | payer MEDICARE, SELFPAY ==
[2021-01-01 17:32] LABS: INTERNATIONAL NORM RATIO 1.4 (0.9-1.1); Prothrombin Time 16.2 SEC (9.9-13.0)
[2021-01-02 08:19] LABS: HBc Num1 0.11 S/CO (0.00-0.79); Hepatitis B Core Antibody Nonreactive (Nonreactive); Hepatitis B Surface Antigen Negative (Negative)
[2021-01-02 08:39] LABS: HBS Num1 0.03 mIU/mL (0-7.99); ~HepC Num1 0.35 S/CO (0.00-0.79); ~Hepatitis B Surface Antibody NONREACTIVE (Nonreactive); ~Hepatitis C Antibody Nonreactive (Nonreactive)
[2021-01-02 12:31] LABS: Alpha Fetoprotein 1.2 ng/mL (<6.1)
[2021-01-02 13:47] LABS: Alpha 1 Anti-trypsin 206 mg/dL (83-199)
[2021-01-02 15:26] LABS: Mitochondrial Antibodies NEGATIVE (NEGATIVE)
[2021-01-04 19:32] LABS: FIB-ALT 14 U/L (9-46); FIB-Alpha-2-Macroglobulin 180 mg/dL (106-279); FIB-Apolipoprotein A1 112 mg/dL (94-176); FIB-GGT 36 U/L (3-70); FIB-Haptoglobin 202 mg/dL (43-212); FIB-Total Bilirubin 0.6 mg/dL (0.2-1.2); Liver Fibrosis Score 0.36; Liver Fibrosis Stage F1-F2; Nec Inflam Act Grade A0; Nec Inflam Act Score 0.05
== END 2021-01-01 16:38 | disposition home or self-care (01) ==
LOC: HO.LAB 16:37
PROVIDERS: PCP Internal Medicine; Visit Provider Internal Medicine
DX: K70.30 Alcoholic cirrhosis of liver without ascites (principal)
CPT/HCPCS: 36415; 81596; 82103; 82105; 85610; 86255; 86256; 86704; 86706; 86803; 87340

== ENCOUNTER 2021-01-24 13:04 | Outpatient (REF) | payer MEDICARE, SELFPAY ==
--- NOTE | ~2021-01-24 | US_ITS ---
EXAMINATION: US COMPLETE ABDOMEN WITH LIVER ELASTOGRAPHY CLINICAL INFORMATION: Cirrhosis of the liver. Ascites. COMPARISON: CT abdomen and pelvis without contrast. TECHNIQUE: Real-time imaging of the abdominal viscera. Noninvasive ultrasound liver fibrosis assessment is performed using Erin ElastPQ point quantification shear wave elastography (pSWE) with a C5-2 MHz transducer. Multiple elastography samples are obtained. FINDINGS: PANCREAS: Normal. The visualized pancreatic head and body are normal in appearance. The remainder of the pancreas is obscured from visualization by the overlying bowel gas. ABDOMINAL AORTA: The proximal, middle, and distal aortic segments are normal in caliber. INFERIOR VENA CAVA: Visualized portions are normal. LIVER: The liver demonstrates normal size, contour and increased echogenicity. No focal lesion or intrahepatic biliary duct dilatation. The right lobe measures 19.8 cm in length. The left lobe measures 10.8 cm in length. Portal flow is hepatopedal. Shear wave liver elastography median stiffness is 1.41 m/s (reference: normal median stiffness is 1.3 m/s or less). IQR/median stiffness to assess sampling precision is 1.23 (reference: good quality data set is IQR/median stiffness of 0.15 or less). GALLBLADDER: There are multiple anechoic nonmobile polyps. No echogenic stones seen. There is edematous gallbladder wall with fluid within the wall and wall thickness measuring 0.75 mm. No echogenic stones seen. Minimal pericholecystic fluid collection. COMMON BILE DUCT: Normal in caliber measuring 0.25 cm in diameter. RIGHT KIDNEY: Normal. No hydronephrosis. No renal calculi or focal parenchymal lesions. The kidney measures 12.1 cm in maximum dimension. LEFT KIDNEY: Normal. No hydronephrosis. No renal calculi or focal parenchymal lesions. The kidney measures 11.6 cm in maximum dimension. SPLEEN: Normal. The spleen measures 13.5 cm in maximum dimension. FREE FLUID: There is trace free fluid surrounding the spleen. Also visualized is a small right pleural effusion. US/US abdomen comp w elastography IMPRESSION: 1. Hepatic steatosis without focal lesion. Thickened gallbladder wall with edema and fluid. There are several nonmobile echogenic polyps. No echogenic stones seen. There is minimal pericholecystic fluid collection. There is a small right pleural effusion and trace ascites. 2. Liver elastography: Medial liver stiffness measures 1.4 m/s, suggestive of cACLD rule out. REFERENCE: Society of Radiologists in Ultrasound Liver Stiffness Thresholds (2020): LIVER STIFFNESS THRESHOLDS: *Liver Stiffness equal or less than 1.3 m/s: High probability of being normal. *Liver Stiffness less than 1.7 m/s: In the absence of other known clinical signs, rules out compensated advanced chronic liver disease. *Liver Stiffness 1.7-2.1 m/s: Suggestive of compensated advanced chronic liver disease but need further test for confirmation. *Liver Stiffness over 2.1 m/s: Rules in compensated advanced chronic liver disease. *Liver Stiffness over 2.4 m/s: Suggestive of clinically significant portal hypertension. QUALITY OF DATA SET: *IQR/Median value equal or less than 0.15 implies a quality data set. *IQR/Median value over 0.15 implies a poor quality data set. SIGNIFICANT CHANGE FROM PRIOR EXAM: Significant change if liver stiffness measurement is 10% or greater from prior exam. OTHER CONSIDERATIONS: The stage of liver fibrosis may be overestimated in the setting of acute hepatitis, liver inflammation, elevated liver function tests, hepatic vascular congestion, obstructive cholestasis, non-fasting state, and infiltrative diseases such as amyloidosis and lymphoma. In some patients with NAFLD, the liver stiffness thresholds for compensated advanced chronic liver disease may be lower. In causes other than viral hepatitis and NAFLD, liver stiffness thresholds are not well established.
== END 2021-01-24 13:05 | disposition home or self-care (01) ==
LOC: HO.US 13:04
PROVIDERS: Visit Provider Internal Medicine
DX: K70.31 Alcoholic cirrhosis of liver with ascites (principal); R60.0 Localized edema
CPT/HCPCS: 76705; 76981

== ENCOUNTER → 2021-02-12 13:21 | Outpatient (BNVA) | payer MEDICARE, SELFPAY | PROVIDERS: PCP Internal Medicine; Visit Provider Student in an Organized Health Care Education/Training Program | CPT/HCPCS: Q3014 ==

== ENCOUNTER → 2021-04-04 08:52 | Outpatient (BNVA) | payer MEDICARE, SELFPAY | PROVIDERS: PCP Internal Medicine; Referring Provider Internal Medicine; Visit Provider Internal Medicine Cardiovascular Disease | DX: I48.91 Unspecified atrial fibrillation (principal); I10 Essential (primary) hypertension; R00.1 Bradycardia, unspecified | CPT/HCPCS: 93005; 99202 ==

== ENCOUNTER → 2021-05-14 09:24 | Outpatient (BNVA) | payer MEDICARE, SELFPAY | PROVIDERS: PCP Internal Medicine; Referring Provider Internal Medicine; Visit Provider Psychiatry & Neurology Neurology | DX: G47.33 Obstructive sleep apnea (adult) (pediatric) (principal); E66.9 Obesity, unspecified; Z68.38 Body mass index [BMI] 38.0-38.9, adult | CPT/HCPCS: 99202 ==

== ENCOUNTER 2021-05-16 07:59 | Outpatient (RCR) | payer MEDICARE, SELFPAY | END 2021-05-23 11:38 | disposition home or self-care (01) | LOC: HO.WCC 07:59 | PROVIDERS: PCP Internal Medicine; Visit Provider Surgery | DX: Z09 Encounter for follow-up examination after completed treatment for conditions other than malignant neoplasm (principal); I89.0 Lymphedema, not elsewhere classified; I48.91 Unspecified atrial fibrillation; G62.9 Polyneuropathy, unspecified; Z86.718 Personal history of other venous thrombosis and embolism; Z87.891 Personal history of nicotine dependence | CPT/HCPCS: 99212 ==

== ENCOUNTER → 2021-05-21 10:16 | Outpatient (REF) | payer MEDICARE, SELFPAY ==
--- NOTE | 2021-05-21 10:22 | HM_ITS ---
Total monitoring time 3 days in 2 hours. Underlying rhythm is sinus. Minimum heart rate 43/Min. Maximum 92/Min. Average 59/Min. No atrial fibrillation or flutter or AV blocks. Pauses noted, longest 2.5 seconds during sleep hours. Rare supraventricular ectopy with minimal burden. Frequent ventricular ectopy; 2 morphologies; 191 couplets; burden of 4%; 6 episodes of NSVT noted, longest 4 beats. No patient events. MTDD
--- NOTE | 2021-05-21 10:22 | CA_ITS ---
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 - There is a flattened septum in systole and diastole consistent with right ventricular pressure and volume overload. - E/E prime ratio is >15, consistent with elevated filling pressures. - Normal right ventricular cavity size and systolic function. - The left atrium is mildly dilated. The right atrium is mildly dilated. - Significantly elevated right atrial pressure. Moderate to severe pulmonary hypertension is present. Findings Left Ventricle Normal left ventricular size and systolic function. There is mildly increased left ventricular wall thickness. The visually estimated ejection fraction is between 55-60%. There is no evidence of regional wall motion abnormalities. There is a flattened septum in systole and diastole consistent with right ventricular pressure and volume overload. Abnormal diastolic function is noted. Spectral Doppler is indicative of a restrictive filling pattern. E/E prime ratio is >15, consistent with elevated filling pressures. Right Ventricle Normal right ventricular cavity size and systolic function. Atria The left atrium is mildly dilated. The right atrium is mildly dilated. Aortic Valve There is a normal trileaflet aortic valve. There is mild calcification of the aortic valve. There is mild thickening of the aortic valve. Mitral Valve There is moderate mitral annular calcification. There is trace mitral valve regurgitation. There is no mitral valve stenosis. Pulmonic Valve Normal pulmonic valve structure and function. There is trace pulmonic valve regurgitation. Tricuspid Valve Normal tricuspid valve structure. There is moderate tricuspid valve regurgitation. Significantly elevated right atrial pressure. Moderate to severe pulmonary hypertension is present. Great Vessels All visible segments of the aorta are normal in size. The visualized portions of the pulmonary artery and branches are normal. Venous The inferior vena cava is dilated and does not collapse with inspiration. Pericardium/Pleural There is no evidence of pericardial effusion. Measurements 2D Linear Measurements IVSd: 1.32 0.6-0.9/0.6-1.0 cm LVIDd: 5.97 3.9-5.3/4.2-5.9 cm LVIDd Index: 2.43 2.4-3.2/2.2-3.1 cm/m2 LVIDs: 4.23 2.0-3.6 cm LVPWd: 1.00 0.7-1.1 cm Ao Root: 3.00 2.1-3.5 cm LA Diam: 5.30 2.7-3.8/3.0-4.0 cm LAIDs Index: 2.15 1.5-2.3 cm/m2 LV Mass: 371.22 67-162/88-224 g LV Mass Index: 150.90 43-95/49-115 g/m2 LVOT Diam: 2.20 3.0+(-)1.3 cm 2D Systolic Function EF 4C: 53.30 >55% EF 2C: 63.50 >55% EF BiP: 59.10 >55% Mitral Valve MV Pk E: 1.14 MV PK A: 0.37 MV Decel Time: 254.00 E/A: 3.10 E'Lateral: 8.05 E'Medial: 6.20 E/E' Med: 18.40 E/E' Lat: 14.20 PHT: 74.00 MVA PHT: 2.97 Decel Coffee: 4.48 Aortic Valve AoV Pk Toribio: 1.41 AoV Pk Grad: 8.00 LVOT LVOT Pk Toribio: 0.93 LVOT Mn Toribio: 0.64 LVOT VTI: 0.26 LVOT Pk Grad: 3.00 LVOT Mn Grad: 2.00 LVOT Diam: 2.20 LVOT Area: 3.80 Diastolic Function MV Pk E: 1.14 MV Pk A: 0.37 E/A: 3.10 E'Medial: 6.20 E/E' Med: 18.40 E' Laterial: 8.05 E/E' Lat: 14.20 Right Ventricle TAPSE (mm): 1.98 Tricuspid Valve TR Pk Toribio: 3.25 TR Pk Grad: 42.00 RA Press: 15.00 RVSP: 57.00 Great Vessels Aorta Ao Root-2D: 3.00 2.0-3.7 cm Ao Asc: 3.00 2.1-3.4 cm Updated in Other Vendor System with Status of Final Danny Ron MD electronically signed on 05/23/2021 2:12:47 PM with status of Final
== END ==
LOC: HO.CARD 10:16
PROVIDERS: Visit Provider Internal Medicine Cardiovascular Disease
DX: I48.91 Unspecified atrial fibrillation (principal)
CPT/HCPCS: 93242; 93306

== ENCOUNTER 2021-05-23 16:54 | Outpatient (REF) | payer MEDICARE, SELFPAY ==
[2021-05-23 17:09] LABS: MANUAL DIFF FLAG NO
[2021-05-23 17:11] LABS: Basophils Percent Auto 0.4 % (0-2); Hematocrit 37.2 % (42.0-52.0); Hemoglobin 11.7 g/dl (14.0-18.0); Imm Gran Abs Auto 0.01 X10*3/uL (0.00-0.03); Imm Gran Pct Auto 0.2 % (0.0-0.4); Immature Retic Fraction 13.5 % (2.3-13.4); Lymphocytes Absolute Auto 0.5 X10*3/uL (1.2-4.9); Lymphocytes Percent Auto 9.2 % (20-40); Mean Corpuscular HGB Conc 31.5 g/dl (31.0-36.0); Mean Corpuscular Hemoglobin 30.4 pg (27.0-33.0); Mean Corpuscular Volume 96.6 fL (80.0-98.0); Mean Platelet Volume 9.5 fL (9.4-12.4); Monocytes Absolute Auto 0.5 X10*3/uL (0.1-1.2); Neutrophils Percent Auto 81.2 % (45-73); Platelet Count 156 X10*3/uL (160-400); Red Blood Count 3.85 X10*6/uL (4.60-5.80); Red Cell Distribution Width 15.2 % (11.0-16.0); Retic HGB Equivalent 29.4 pg (30.0-35.0); Reticulocyte Percent 1.4 % (0.5-1.8); Reticulocytes Absolute 0.055 X10*6/uL (0.026-0.095)
[2021-05-23 17:35] LABS: Ammonia 19 umol/L (13-55)
[2021-05-23 17:43] LABS: Alanine Aminotransferase 26 U/L (0-40); Albumin Level 3.6 g/dL (3.5-5.0); Alkaline Phosphatase 184 U/L (39-117); Anion Gap 14 (12-20); Aspartate Amino Transferase 26 U/L (5-37); Bilirubin Total 1.1 mg/dL (0.0-1.0); Blood Urea Nitrogen 36 mg/dL (9-16); Carbon Dioxide 25 mmol/L (22-29); Chloride 109 mmol/L (96-108); Cholesterol 117 mg/dL; Estimated Glomerular Filt Rate 34; Glucose Random 99 mg/dL (60-115); HDL Cholesterol 38 mg/dL; Iron 27 mcg/dL (45-160); LDL Cholesterol Calculated 67 mg/dl; Percent Iron Saturation 11 % (15-50); Potassium 3.9 mmol/L (3.3-5.1); Sodium 144 mmol/L (135-145); Total Iron Binding Capacity 251 mcg/dL (228-428); Total Protein 6.7 g/dL (6.5-8.0); Triglycerides 63 mg/dL; Unsaturated Iron Binding 224 ug/dL; Uric Acid 5.9 mg/dL (3.4-7.0)
[2021-05-23 17:47] LABS: Appearance Urine CLEAR; Color Urine YELLOW; Glucose Urine UA NEG (NEG); Leukocyte Esterase Urine NEG (NEG); Nitrite Urine NEG (NEG); PH 5.5 (5.0-8.0); Specific Gravity - Urine 1.025 (1.005-1.025); Urine Blood NEG (NEG); Urine Ketones NEG (NEG); Urine Protein 2+ MG/DL (NEG-TRACE)
[2021-05-23 17:53] LABS: Estimated Average Glucose 88 mg/dL; Hemoglobin A1c % 4.7 %
[2021-05-23 18:03] LABS: Folate 17.5 ng/mL (> or = 4.0); Vitamin B12 723 pg/mL (200-900)
[2021-05-23 18:04] LABS: Ferritin 173 ng/mL (20-250); Prostate Specific Antigen Scr 1.06 ng/mL (<0.05-4.0); Thyroid Stimulating Hormone 1.43 uIU/mL (0.32-4.0)
[2021-05-23 18:06] LABS: Erythrocyte Sedimentation Rate 13 MM/HR (0-15)
[2021-05-23 18:19] LABS: RBC Urine 0-2 /HPF (0); WBC Urine 0-2 /HPF (0-4)
== END 2021-05-23 16:55 | disposition home or self-care (01) ==
LOC: HO.LAB 16:54
PROVIDERS: Visit Provider Internal Medicine
DX: M1A.00X0 Idiopathic chronic gout, unspecified site, without tophus (tophi) (principal); I10 Essential (primary) hypertension; E78.00 Pure hypercholesterolemia, unspecified; E11.65 Type 2 diabetes mellitus with hyperglycemia; D64.9 Anemia, unspecified; M32.9 Systemic lupus erythematosus, unspecified
CPT/HCPCS: 36415; 80053; 80061; 81001; 82140; 82607; 82728; 82746; 83036; 83540; 84153; 84439; 84443; 84550; 85025; 85045; 85652

== ENCOUNTER → 2021-05-27 11:04 | Outpatient (BNVA) | payer MEDICARE, SELFPAY | PROVIDERS: PCP Internal Medicine; Referring Provider Internal Medicine; Visit Provider Internal Medicine Cardiovascular Disease | DX: I27.20 Pulmonary hypertension, unspecified (principal); I11.0 Hypertensive heart disease with heart failure; I50.30 Unspecified diastolic (congestive) heart failure; R00.1 Bradycardia, unspecified | CPT/HCPCS: 99212 ==

== ENCOUNTER → 2021-05-30 12:52 | Outpatient (REF) | payer MEDICARE, SELFPAY | LOC: HO.SL 12:52 | PROVIDERS: PCP Internal Medicine; Visit Provider Psychiatry & Neurology Neurology | DX: I10 Essential (primary) hypertension (principal); E66.9 Obesity, unspecified; G47.33 Obstructive sleep apnea (adult) (pediatric) | CPT/HCPCS: 95806 ==

== ENCOUNTER 2021-05-31 16:38 | Emergency (ER) | payer MEDICARE, SELFPAY ==
--- NOTE | ~2021-05-31 | XR_ITS ---
EXAMINATION: XR RIBS, LEFT CLINICAL INFORMATION: Fall with chest wall pain COMPARISON: 12/17/2020 TECHNIQUE: 3 views of the left ribs were obtained. PA view of the chest. FINDINGS: The lungs are well expanded. Central vascular prominence without overt edema. No effusion. No pneumothorax. The cardiomediastinal silhouette is unchanged, with a calcified aorta. Targeted radiographs of the left ribs show no acute fracture or cortical disruption. There is appropriate alignment. Degenerative changes are noted at both glenohumeral joints. XR/XR ribs LT min 3V w CXR1V IMPRESSION: No displaced rib fracture identified. Central vascular prominence without overt edema.
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
[2021-05-31 16:46] VITALS: BP 132/62; PULSE 72; RESP 18; TEMP 37; O2SAT 96; BMI 38.0
--- NOTE | 2021-05-31 17:03 | ED_ITS ---
HPI - Fall General Chief Complaint: Fall Stated Complaint: trip and fell hit his head Time Seen by Provider: 05/31/21 16:57 Source: patient Mode of arrival: ambulatory Limitations: no limitations History of Present Illness HPI Narrative: This is a 66-year-old male with extensive medical history on Eliquis for AFib here after a trip and fall striking his head. Patient tells me he was walking and tripped causing him to fall forward hitting his left face on the ground. There was no loss of consciousness. He also struck his left chest wall. No neck pain, facial pain, abdominal pain, back pain. No vision changes, nausea or vomiting or dizziness or headache. Related Data Home Medications Medication Instructions Recorded Confirmed calcitriol 0.5 mcg capsule 0.5 mcg PO DAILY 04/03/20 05/27/21 albuterol sulfate 90 mcg/actuation 2 puff INHALATION 6XD PRN 07/05/20 05/27/21 aerosol inhaler (ProAir HFA) ergocalciferol (vitamin D2) 1,250 0 mcg PO 04/04/21 05/27/21 mcg (50,000 unit) capsule ferrous sulfate 325 mg (65 mg 325 mg PO DAILY 04/04/21 05/27/21 iron) tablet furosemide 40 mg tablet See Rx Instructions PO BID tab 05/27/21 05/27/21 Previous Rx's Medication Instructions Recorded tramadol 50 mg tablet 50 mg PO Q8H PRN #90 tab 07/05/20 terazosin 5 mg capsule 5 mg PO DAILY #90 cap 07/12/20 pravastatin 20 mg tablet 20 mg PO BEDTIME #90 tab 08/23/20 kylah.stocking,knee,reg,xlrg #12 ea 11/01/20 miscellaneous medical supply 1 ea MISCELLANEOUS DAILY #1 ea 11/27/20 hydroxychloroquine 200 mg tablet 400 mg PO DAILY #60 tab 12/06/20 allopurinol 300 mg tablet 300 mg PO DAILY #90 tab 12/25/20 losartan 100 mg tablet 100 mg PO DAILY 90 Days #90 tab 12/26/20 hydralazine 50 mg tablet 50 mg PO TID 90 Days #270 tab 12/31/20 amlodipine 5 mg tablet 5 mg PO DAILY #60 tab 04/04/21 apixaban 2.5 mg tablet 2.5 mg PO BID #60 tab 04/04/21 Juxta Lite Compression wraps - #2 ea 05/22/21 Adjustable -for chronic ulcers with open wounds bilat lower extremities isosorbide mononitrate 30 mg 30 mg PO DAILY #30 tab 05/27/21 tablet,extended release 24 hr miscellaneous medical supply See Rx Instructions MISCELLANEOUS 05/27/21 .COMPLEX #1 ea miscellaneous medical supply See Rx Instructions MISCELLANEOUS 05/27/21 .COMPLEX #2 ea miscellaneous medical supply See Rx Instructions MISCELLANEOUS 05/27/21 .COMPLEX #2 ea compr.stocking,thigh,reg,x-lrg #12 ea 05/31/21 Allergies Allergy/AdvReac Type Severity Reaction Status Date / Time No Known Allergies Allergy Verified 05/31/21 16:46 [No Known Allergies*] Review of Systems Review of Systems: Yes all other systems are reviewed and are negative Constitutional: Constitutional: Reports no additional constitutional complaints, Denies body ache(s), Denies chills, Denies fever(s), Denies headache(s) and Denies weakness Eyes: Eyes: Reports no additional eye complaints and Denies change in vision ENT: Reports system reviewed and no additional complaints, except as documented, Denies dizziness, Denies headache(s), Denies nasal congestion, Den ies nasal discharge and Denies neck pain Cardiovascular: Cardiovascular: Reports no additional cardiovascular complaints, Denies chest pain, Denies leg edema and Denies dyspnea Respiratory: Respiratory: Reports no additional respiratory complaints, Denies cough and Denies dyspnea Gastrointestinal: Gastrointestinal: Reports no additional gastrointestinal complaints, Denies abdominal pain, Denies diarrhea, Denies nausea and Denies vomiting Genitourinary: Genitourinary: Denies urinary incontinence Musculoskeletal: Musculoskeletal: Reports no additional musculoskeletal complaints, Denies back pain, Denies arthralgias, Denies joint swelling, Denies neck pain, Denies numbness and Denies tingling Integumentary/Breasts: Skin/Breast: Reports system reviewed and no additional complaints, except as docu and Denies rash Comments: +laceration Neurologic: Reports system reviewed and no additional complaints, except as documented, Denies Abnormal speech present, Denies dizziness, Denies headache( s), Denies numbness, Denies tingling and Denies weakness PMFSH Past Medical History Attestation statement: The following information was validated with the patient. Source: old records reviewed and nursing notes reviewed Medical History Anemia BPH (benign prostatic hyperplasia) Chronic kidney disease COPD (chronic obstructive pulmonary disease) Diabetic retinopathy Edema Essential thrombocytopenia Gout High cholesterol HTN (hypertension) Hypercholesterolemia Lumbar degenerative disc disease Lymphedema Obesity (BMI 30-39.9) Obstructive sleep apnea Osteoarthritis Peripheral neuropathy Peripheral vascular disease Pulmonary hypertension Type 2 diabetes mellitus with hyperglycemia Venous stasis dermatitis Surgical History H/O prior ablation treatment History of bilateral cataract extraction History of carpal tunnel release History of tonsillectomy Family History Family History Father Prostate cancer CVD (cardiovascular disease) Mother Hemochromatosis Brother Motor vehicle accident Sister CAD (coronary artery disease) Maternal Grandfather Myocardial infarction Social History Social History Household Members: Significant Other Housing: House Alcohol intake: never Patient Tobacco Use Status: Former Tobacco user (10 years) e-Cigarette/Vaping Use: Never Used Second Hand Smoke Exposure: Yes Advance Directives: No Advance Directives Information Provided: Yes service: No Current occupational status: retired and disabled Physical Exam Vital Signs: Vital Signs: Last Vital Signs Temp 98.6 F 05/31/21 16:46 Pulse 72 05/31/21 16:46 Resp 18 05/31/21 16:46 BP 132/62 05/31/21 16:46 Pulse Ox 96 05/31/21 16:46 BMI result Body Mass Index 38.0 Const: General: cooperative, healthy appearing, comfortable and no acute distress Orientation/consciousness: patient oriented x3 Limitations: no limitations HENMT: Head: Yes normal to inspection Head images: 1. head lac Ears: hearing grossly normal bilaterally and TM's normal bilaterally General nose exam: Normal external nose present Face and sinus: Yes normal facial exam Mouth: Normal oral and palatal mucosa present Throat: Yes posterior oropharynx normal, Yes tonsils normal and Yes uvula midline Eyes: General: appearance normal, both eyes and all related structures Pupils: Equal, round and reactive pupils present Neck: Other: No cervical midline tenderness, step-offs deformities Neck: Yes normal visual inspection, Yes full ROM, Yes no lymphadenopathy and Yes no meningeal signs Chest: Chest palpation & inspection: normal inspection of the chest Resp: Effort & Inspection: normal respiratory effort Auscultation: clear to auscultation bilaterally Cardio: Rate: regular rate Rhythm: regular rhythm Peripheral pulses: Peripheral pulses 2+ throughout GI: Inspection: Yes normal to inspection Palpation (GI): Soft to palpation and nontender Auscultation: normal bowel sounds Back/Spine/Pelvis: Thoracic/Lumbar Spine: thoracic and lumbar spine normal to inspection Skin: General skin exam: no rashes or lesions noted Neuro: General: patient oriented x3, no meningeal signs, no focal motor deficits and normal sensation to monofilament Cranial nerves: Yes CN's II-XII intact bilaterally, Yes Equal, round and reactive pupils present, Yes Bilaterally intact EOM present, Yes Nystagmus not present, Yes Normal facial strength present and Yes Midline tongue present Cognition (Neuro): normal cognition Speech: No Abnormal speech present Gait exam (Neuro): Normal gait present Motor exam (neuro): 5/5 motor strength present throughout Sensory Exam: Normal double simultaneous stimulation for sensation Extrem: General: Yes normal to inspection, Yes no pedal edema and Yes no calf tenderness Course Course Course Narrative: 66-year-old male here after a trip and fall with head strike. No loss of consciousness. Normal normal neuro exam. Does have a small facial laceration that will need repair. Patient is on Eliquis so will check CT head. Also complaining some left chest wall pains will check rib x-ray. Will give tetanus, wound repair note 1800-Sign out to Cindy WALTERS pending CT Procedures Laceration Laceration 1: Site: scalp Side (If applicable): left Size (cm): 2 Description: linear Depth: simple, single layer Local Anesthetic: lidocaine 2% Amount of anesthesia used (mL): 3 Pre-repair: wound explored, irrigated extensively and deep structures intact Skin layer closed with: other (prolene ) Size (cm): 6-0 Number of sutures: 4 Technique: simple, interrupted MDM - Fall Medical Records Attestation: I reviewed the patient's medical records. Lab Data Attestation: I reviewed the patient's lab results. Imaging Data ribs/chest xray: Attestation: I personally reviewed and interpreted this imaging study as follows: Radiologist's impression: [id number] [place] [address] XRay Report Signed Patient: Kael Meyer MR#: [id number] : 1955 Acct:[id number] Age/Sex: 66 / M ADM Date: 05/31/21 Loc: HO.ED Attending Dr: Ordering Physician: Apryl Carbajal NP Date of Service: 05/31/21 Procedure(s): XR ribs LT min 3V w CXR1V Accession Number(s): [id number] cc: Apryl Carbajal NP~ EXAMINATION: XR RIBS, LEFT CLINICAL INFORMATION: Fall with chest wall pain COMPARISON: 12/17/2020 TECHNIQUE: 3 views of the left ribs were obtained. PA view of the chest. FINDINGS: The lungs are well expanded. Central vascular prominence without overt edema. No effusion. No pneumothorax. The cardiomediastinal silhouette is unchanged, with a calcified aorta. Targeted radiographs of the left ribs show no acute fracture or cortical disruption. There is appropriate alignment. Degenerative changes are noted at both glenohumeral joints. XR/XR ribs LT min 3V w CXR1V IMPRESSION: No displaced rib fracture identified. ? Central vascular prominence without overt edema. Discharge Plan Discharge Clinical Impression: Contusion of rib, Contusion of head, Facial laceration Patient Disposition: Home, Self-Care Instructions: Laceration (ED), Contusion in Adults (ED), Rib Contusion (ED) Additional Instructions: Sutures out in 5-7 days Prescriptions: No Action terazosin 5 mg capsule 5 mg PO DAILY Qty: 90 RF: 3 pravastatin 20 mg tablet 20 mg PO BEDTIME Qty: 90 RF: 3 (DME) kylah.stocking,knee,reg,xlrg Misc See Rx Instructions .ROUTE .MEDSUPPLY Qty: 12 RF: 0 miscellaneous medical supply Misc 1 ea miscellaneous DAILY Qty: 1 RF: 0 hydroxychloroquine 200 mg tablet 400 mg PO DAILY Qty: 60 RF: 5 allopurinol 300 mg tablet 300 mg PO DAILY Qty: 90 RF: 1 losartan 100 mg tablet 100 mg PO DAILY 90 Days Qty: 90 RF: 2 hydralazine 50 mg tablet 50 mg PO TID 90 Days Qty: 270 RF: 3 (DME) Juxta Lite Compression wraps - Adjustable -for chronic ulcers with open wounds bilat lower extremities See Rx Instructions .Route .MEDSUPPLY Qty: 2 RF: 0 miscellaneous medical supply Misc See Rx Instructions miscellaneous .COMPLEX Qty: 2 RF: 0 miscellaneous medical supply Misc See Rx Instructions miscellaneous .COMPLEX Qty: 2 RF: 0 miscellaneous medical supply Misc See Rx Instructions miscellaneous .COMPLEX Qty: 1 RF: 0 (DME) compr.stocking,thigh,reg,x-lrg Misc See Rx Instructions .Route Qty: 12 RF: 0 furosemide 40 mg tablet See Rx Instructions PO BID RF: 0 ferrous sulfate 325 mg (65 mg iron) tablet 325 mg PO DAILY RF: 0 ergocalciferol (vitamin D2) 1,250 mcg (50,000 unit) capsule 0 mcg PO RF: 0 apixaban 2.5 mg tablet 2.5 mg PO BID Qty: 60 RF: 3 amlodipine 5 mg tablet 5 mg PO DAILY Qty: 60 RF: 3 calcitriol 0.5 mcg capsule 0.5 mcg PO DAILY RF: 0 albuterol sulfate [ProAir HFA] 90 mcg/actuation HFA aerosol inhaler 2 puff inhalation 6XD PRNRF: 0 tramadol 50 mg tablet 50 mg PO Q8H PRN (Reason: pain) Qty: 90 RF: 5 isosorbide mononitrate 30 mg tablet extended release 24 hr 30 mg PO DAILY Qty: 30 RF: 3 Referrals: Po,Steve Dawn MD [Primary Care Provider] - 2 days
[2021-05-31] MEDS: Lidocaine HCl 2 % MPF 5 ML VIAL SUBCUT (18:02)
[2021-05-31 19:37] VITALS: BP 165/59; PULSE 61; RESP 16; O2SAT 95
[2021-05-31] MEDS: Diphth,Pertus(ACell),Tet Adult 0.5 ML SYRINGE IM (19:45)
[2021-05-31 22:30] VITALS: BP 175/61; PULSE 63; RESP 16; O2SAT 95
== END 2021-05-31 23:51 | disposition home or self-care (01) ==
PROVIDERS: Emergency Provider Emergency Medicine; PCP Internal Medicine
DX: S01.01XA Laceration without foreign body of scalp, initial encounter (principal); S20.213A Contusion of bilateral front wall of thorax, initial encounter; S20.319A Abrasion of unspecified front wall of thorax, initial encounter; G44.309 Post-traumatic headache, unspecified, not intractable; R07.81 Pleurodynia; W01.10XA Fall on same level from slipping, tripping and stumbling with subsequent striking against unspecified object, initial encounter; Y93.9 Activity, unspecified; Y92.009 Unspecified place in unspecified non-institutional (private) residence as the place of occurrence of the external cause; Y99.9 Unspecified external cause status; Z79.899 Other long term (current) drug therapy; Z87.891 Personal history of nicotine dependence
CPT/HCPCS: 70450; 71101; 90471; 90715; 99283; 99284

== ENCOUNTER → 2021-06-20 15:04 | Outpatient (BNVA) | payer OTHER, SELFPAY | PROVIDERS: PCP Internal Medicine; Visit Provider Internal Medicine Pulmonary Disease | DX: I27.20 Pulmonary hypertension, unspecified (principal); J43.9 Emphysema, unspecified | CPT/HCPCS: 94618; 99202 ==

== ENCOUNTER → 2021-08-01 13:55 | Outpatient (BNVA) | payer OTHER, SELFPAY | PROVIDERS: PCP Internal Medicine; Referring Provider Internal Medicine; Visit Provider Internal Medicine Cardiovascular Disease | DX: I50.30 Unspecified diastolic (congestive) heart failure (principal); I27.20 Pulmonary hypertension, unspecified; R00.1 Bradycardia, unspecified | CPT/HCPCS: 99212 ==

== ENCOUNTER 2021-08-16 11:00 | Outpatient (RCR) | payer MEDICARE, OTHER, SELFPAY ==
--- NOTE | 2021-05-08 10:19 | MHC.OT.OP ---
[address] [phone] F: [phone] Occupational Therapy Progress Note Diagnosis: Lymphedema Date of Surgery: Date of Evaluation: 04/09/21 Treatments to Date: 9 Cancellations to Date: 0 No Shows to Date: 0 Subjective: Pain Score: 4 Pain Location: Bilateral lower legs..occassional Objective Measures: See edema form Status: Assessment: Pt seen for bilateral LE lymphedema. Started with right lower leg bandaging with grayfoam and Comprilan , massage, skin care and some ther ex. Pt now wearing Juxtalite bandaging on lower leg over 2 carlton wraps and non woven gauze pad above ankle to below knee , circumstantially for inc ease and frequency of skin care. Pt now with inc edema noted at ankle , dorsal foot and proximal to Juxtalite. Medial distal thigh mild fibrosis with thickening of skin. Large areas of dried light clear yellow drainage on bandaging and breakthrough on Carlton wraps. Layer of thin dry tissue over previously granulated tissue noted at last visit. Large areas of deep pink , raw looking granulated tissue and areas of thick dry peeling, and turkey skin Sterile saline applied and wash with premoistened Ready bath wipes. Mild to moderate debridement with wipes. Areas of weeping noted at distal lower leg Pt is with large areas of open granulated tissue weeping and areas of new thin dry tissue peeling up with dressing change and cleaning as well as areas of hyperkeritosis and turkey skin I am concerned about appropriate topical applications . I instructed pt to apply Amlactin only to areas of hypergranulation at foot and thigh. Pt will also benefit from a foot to progression to thigh high Juxtafix for ease with self bandaging at this time. At this time will benefit from medical intervention to determine appropriate topical to promote healing tissue and prevent infection. 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
--- NOTE | 2021-08-16 13:09 | MHC.OT.DC ---
[address] [phone] F: [phone] Occupational Therapy Discharge Note Provider: Steve Nguyen MD Diagnosis: Lymphedema Date of Surgery: Date of Evaluation: 04/09/21 Date of Discharge: Treatments to Date: 27 Cancellations to Date: 0 No Shows to Date: 0 Discharge Status: Discharge Summary: Pt is indep with skin care, ther ex and consistant with Juxtalite calf wraps. Pt will benefit from adding a knee and thigh wrap for reducing upper leg volume for improved health of the tissues to prevent infection. He is motivated to con't with self treatment . Right lower leg circumference is reduced by 23 cm . Left lower leg circumference is reduced by 23 cm. Skin intergrity is significantly improved. Electronically Signed By: Maday Meyer OT CHT, CLT Reviewed/agree with student documentation: N/A Therapist: Please Sign and return to therapist, thank you for your referral.
== END 2021-08-16 13:10 | disposition home or self-care (01) ==
LOC: HO.OT 11:00
PROVIDERS: PCP Internal Medicine; Visit Provider Internal Medicine
DX: I89.0 Lymphedema, not elsewhere classified (principal)
CPT/HCPCS: 97110; 97140

== ENCOUNTER → 2021-09-17 14:44 | Outpatient (BNVA) | payer OTHER, SELFPAY | PROVIDERS: PCP Internal Medicine; Visit Provider Internal Medicine Pulmonary Disease | DX: I27.20 Pulmonary hypertension, unspecified (principal); J43.9 Emphysema, unspecified; Z79.899 Other long term (current) drug therapy | CPT/HCPCS: 99212 ==

== ENCOUNTER 2021-10-17 14:56 | Outpatient (REF) | payer OTHER, SELFPAY ==
--- NOTE | 2021-10-17 17:13 | PFT_ITS ---
FLOWS: FEV1 81% of predicted at 2.90 L. FVC 74% of predicted at 3.58 L. FEV1 to FVC ratio of 0.81. No bronchodilator response except in small to medium airways. LUNG VOLUMES: Total lung capacity 83% of predicted at 6.22 L. Residual volume 98% of predicted at 2.50 L. Slow vital capacity 75% of predicted at 3.72 L. Expiratory reserve volume 87% of predicted at 1.25 L. Diffusion capacity is moderately decreased. In comparison to pulmonary function test performed in August of 2014, FEV1, FVC, TLC, and SVC have been without significant changes; residual volume has decreased by 0.22 L; expiratory reserve volume has increased by 0.98 L; diffusion capacity has decreased by 4.41 mL/minute per mmHg. IMPRESSION: No obstructive or restrictive ventilatory defect. No bronchodilator response except in small to medium airways. Decreased diffusion capacity suggests emphysema. MD DEBBIE Guido/MODL / [id number]
== END 2021-10-17 14:57 | disposition home or self-care (01) ==
LOC: HO.RESP 14:56
PROVIDERS: PCP Internal Medicine; Visit Provider Internal Medicine Pulmonary Disease
DX: J43.9 Emphysema, unspecified (principal)
CPT/HCPCS: 94060; 94727; 94729

== ENCOUNTER → 2021-10-29 14:11 | Outpatient (BNVA) | payer OTHER, SELFPAY | PROVIDERS: PCP Internal Medicine; Visit Provider Internal Medicine Pulmonary Disease | DX: J43.9 Emphysema, unspecified (principal); I27.20 Pulmonary hypertension, unspecified | CPT/HCPCS: 99212 ==

== ENCOUNTER → 2021-11-21 14:48 | Outpatient (BNVA) | payer OTHER, SELFPAY | PROVIDERS: PCP Internal Medicine; Referring Provider Internal Medicine; Visit Provider Nurse Practitioner Family | DX: R00.1 Bradycardia, unspecified (principal); I11.0 Hypertensive heart disease with heart failure; I50.30 Unspecified diastolic (congestive) heart failure; I48.0 Paroxysmal atrial fibrillation; I27.20 Pulmonary hypertension, unspecified | CPT/HCPCS: Q3014 ==

== ENCOUNTER 2021-12-03 07:33 | Outpatient (REF) | payer OTHER, SELFPAY ==
[2021-12-03 07:49] LABS: MANUAL DIFF FLAG NO
[2021-12-03 08:05] LABS: Basophils Absolute Auto 0.1 X10*3/uL (0.0-0.2); Basophils Percent Auto 1.3 % (0-2); Eosinophils Percent Auto 0.8 % (0-4); Hemoglobin 10.6 g/dl (14.0-18.0); Imm Gran Abs Auto 0.01 X10*3/uL (0.00-0.03); Imm Gran Pct Auto 0.3 % (0.0-0.4); Immature Retic Fraction 6.5 % (2.3-13.4); Lymphocytes Absolute Auto 0.7 X10*3/uL (1.2-4.9); Lymphocytes Percent Auto 18.7 % (20-40); Mean Corpuscular HGB Conc 32.1 g/dl (31.0-36.0); Mean Corpuscular Hemoglobin 31.2 pg (27.0-33.0); Mean Corpuscular Volume 97.1 fL (80.0-98.0); Monocytes Absolute Auto 0.5 X10*3/uL (0.1-1.2); Monocytes Percent Auto 13.2 % (2-11); Neutrophils Absolute Auto 2.5 x10*3/uL (2.0-8.3); Neutrophils Percent Auto 65.7 % (45-73); Red Cell Distribution Width 14.3 % (11.0-16.0); Retic HGB Equivalent 35.3 pg (30.0-35.0); Reticulocytes Absolute 0.034 X10*6/uL (0.026-0.095); White Blood Count 3.8 X10*3/uL (4.8-10.8)
[2021-12-03 08:31] LABS: Alanine Aminotransferase 18 U/L (0-40); Alkaline Phosphatase 143 U/L (39-117); Anion Gap 15 (12-20); Aspartate Amino Transferase 16 U/L (5-37); Bilirubin Total 0.8 mg/dL (0.0-1.0); Blood Urea Nitrogen 68 mg/dL (9-16); Carbon Dioxide 24 mmol/L (22-29); Chloride 107 mmol/L (96-108); Cholesterol 122 mg/dL; Estimated Average Glucose 103 mg/dL; Estimated Glomerular Filt Rate 19; Glucose Random 97 mg/dL (60-115); HDL Cholesterol 52 mg/dL; Hemoglobin A1c % 5.2 %; Iron 88 mcg/dL (45-160); LDL Cholesterol Calculated 62 mg/dl; Percent Iron Saturation 32 % (15-50); Potassium 4.2 mmol/L (3.3-5.1); Sodium 142 mmol/L (135-145); Total Iron Binding Capacity 271 mcg/dL (228-428); Total Protein 6.9 g/dL (6.5-8.0); Triglycerides 42 mg/dL; Unsaturated Iron Binding 183 ug/dL; Uric Acid 12.1 mg/dL (3.4-7.0)
[2021-12-03 08:34] LABS: Platelet Count 105 X10*3/uL (160-400)
[2021-12-03 08:37] LABS: B Type Natriuretic Peptide 404 pg/mL (<100)
[2021-12-03 08:54] LABS: Ferritin 321 ng/mL (20-250); Free T4 (Free Thyroxine) 1.12 ng/dL (0.71-1.85); Thyroid Stimulating Hormone 1.88 uIU/mL (0.32-4.0)
[2021-12-03 08:59] LABS: Creatinine Urine 52.26 mg/dL; Microalbum/Creatinine Ratio Ur 143.5 ug/mg cr
[2021-12-03 09:02] LABS: Folate 10.7 ng/mL (> or = 4.0); Vitamin B12 465 pg/mL (200-900)
== END 2021-12-03 07:34 | disposition home or self-care (01) ==
LOC: HO.LAB 07:33
PROVIDERS: PCP Internal Medicine; Visit Provider Internal Medicine
DX: M1A.00X0 Idiopathic chronic gout, unspecified site, without tophus (tophi) (principal); I11.0 Hypertensive heart disease with heart failure; I50.30 Unspecified diastolic (congestive) heart failure; E78.00 Pure hypercholesterolemia, unspecified; E11.65 Type 2 diabetes mellitus with hyperglycemia
CPT/HCPCS: 36415; 80053; 80061; 82043; 82607; 82728; 82746; 83036; 83540; 83880; 84439; 84443; 84550; 85025; 85045

== ENCOUNTER 2021-12-20 07:59 | Outpatient (REF) | payer OTHER, SELFPAY ==
[2021-12-20 10:01] LABS: Appearance Urine CLEAR; Color Urine YELLOW; Glucose Urine UA NEG (NEG); Leukocyte Esterase Urine NEG (NEG); Nitrite Urine NEG (NEG); PH 5.5 (5.0-8.0); Specific Gravity - Urine 1.015 (1.005-1.025); Urine Blood NEG (NEG); Urine Ketones NEG (NEG); Urine Protein NEG (NEG-TRACE)
[2021-12-20 10:13] LABS: Mucus Urine TRACE /LPF; Squamous Epithelial Cell Urine TRACE /LPF
[2021-12-20 10:14] LABS: Hyaline Casts Urine 0-2 /LPF; RBC Urine 0 /HPF (0); WBC Urine 0-2 /HPF (0-4)
[2021-12-20 10:43] LABS: Creatinine Urine 64.84 mg/dL
== END 2021-12-20 08:00 | disposition home or self-care (01) ==
LOC: HO.LAB 07:59
PROVIDERS: PCP Internal Medicine; Visit Provider Internal Medicine
DX: E11.65 Type 2 diabetes mellitus with hyperglycemia (principal); M32.9 Systemic lupus erythematosus, unspecified
CPT/HCPCS: 81001

== ENCOUNTER 2022-01-01 08:11 | Outpatient (REF) | payer OTHER, SELFPAY ==
--- NOTE | ~2022-01-01 | US_ITS ---
EXAMINATION: US COMPLETE ABDOMEN WITH LIVER ELASTOGRAPHY CLINICAL INFORMATION: Alcoholic cirrhosis. COMPARISON: None. TECHNIQUE: Real-time imaging of the abdominal viscera. Noninvasive ultrasound liver fibrosis assessment is performed using Erin ElastPQ point quantification shear wave elastography (2D-SWE) with a C5-2 MHz transducer. Multiple elastography samples are obtained. FINDINGS: PANCREAS: The visualized pancreatic head and body are normal in appearance. The remainder of the pancreas is obscured from visualization by the overlying bowel gas. ABDOMINAL AORTA: The proximal and mid aortic segments are normal in caliber. The distal aortic segment is enlarged. INFERIOR VENA CAVA: Visualized portions are normal. LIVER: The liver demonstrates normal size, lobulated contour and increased echogenicity. No focal lesion or intrahepatic biliary duct dilatation. There is mild perihepatic ascites. The right lobe measures 18.9 cm in length. The left lobe measures 12.6 cm in length. Portal flow is pulsatile hepatopedal. Shear wave liver elastography median stiffness is 1.64 m/s (reference: normal median stiffness is 1.3 m/s or less). IQR/median stiffness to assess sampling precision is 0.09 (reference: good quality data set is IQR/median stiffness of 0.15 or less). GALLBLADDER: There are multiple non-mobile echogenic polyps with gallbladder wall thickening measuring 0.5 cm. No echogenic mobile stones seen. The gallbladder wall appears slightly edematous. COMMON BILE DUCT: Normal in caliber measuring 0.4 cm in diameter. RIGHT KIDNEY: Small anechoic cyst in midpole measures 1.0 x 1.2 x 0.7 cm. No hydronephrosis. No renal calculi or focal parenchymal lesions. The kidney measures 11.9 cm in maximum dimension. LEFT KIDNEY: Normal. No hydronephrosis. No renal calculi or focal parenchymal lesions. The kidney measures 12.2 cm in maximum dimension. SPLEEN: There is small amount of ascites around the spleen. The spleen measures 14.9 cm in maximum dimension. FREE FLUID: None. US/US abdomen comp w elastography IMPRESSION: 1. Lobulated liver with slight increased echogenicity suspicious for cirrhosis. There is small perihepatic fluid. Pulsatile hepatopedal flow. Multiple echogenic nonmobile polyps with mild gallbladder wall thickening. There are no echogenic stones. Midpole right renal cyst. 2. Liver elastography: Median liver stiffness measures 1.6. This is suggestive of cACLD ruled out. REFERENCE: Society of Radiologists in Ultrasound Liver Stiffness Thresholds (2020): LIVER STIFFNESS THRESHOLDS: *Liver Stiffness equal or less than 1.3 m/s: High probability of being normal. *Liver Stiffness less than 1.7 m/s: In the absence of other known clinical signs, rules out compensated advanced chronic liver disease. *Liver Stiffness 1.7-2.1 m/s: Suggestive of compensated advanced chronic liver disease but need further test for confirmation. *Liver Stiffness over 2.1 m/s: Rules in compensated advanced chronic liver disease. *Liver Stiffness over 2.4 m/s: Suggestive of clinically significant portal hypertension. QUALITY OF DATA SET: *IQR/Median value equal or less than 0.15 implies a quality data set. *IQR/Median value over 0.15 implies a poor quality data set. SIGNIFICANT CHANGE FROM PRIOR EXAM: Significant change if liver stiffness measurement is 10% or greater from prior exam. OTHER CONSIDERATIONS: The stage of liver fibrosis may be overestimated in the setting of acute hepatitis, liver inflammation, elevated liver function tests, hepatic vascular congestion, obstructive cholestasis, non-fasting state, and infiltrative diseases such as amyloidosis and lymphoma. In some patients with NAFLD, the liver stiffness thresholds for compensated advanced chronic liver disease may be lower. In causes other than viral hepatitis and NAFLD, liver stiffness thresholds are not well established.
== END 2022-01-01 08:12 | disposition home or self-care (01) ==
LOC: HO.US 08:11
PROVIDERS: Visit Provider Internal Medicine
DX: K70.30 Alcoholic cirrhosis of liver without ascites (principal)
CPT/HCPCS: 76705; 76981

== ENCOUNTER → 2022-02-06 13:34 | Outpatient (BNVA) | payer OTHER, SELFPAY | PROVIDERS: PCP Internal Medicine; Visit Provider Internal Medicine Pulmonary Disease | DX: I27.20 Pulmonary hypertension, unspecified (principal); J43.9 Emphysema, unspecified; Z79.899 Other long term (current) drug therapy | CPT/HCPCS: 99212 ==

== ENCOUNTER → 2022-02-24 14:50 | Outpatient (BNVA) | payer OTHER, SELFPAY | PROVIDERS: PCP Internal Medicine; Referring Provider Internal Medicine; Visit Provider Internal Medicine Cardiovascular Disease | DX: I50.30 Unspecified diastolic (congestive) heart failure (principal); I27.20 Pulmonary hypertension, unspecified; R00.1 Bradycardia, unspecified | CPT/HCPCS: 93005; 99212 ==

== ENCOUNTER → 2022-03-03 13:36 | Outpatient (REF) | payer OTHER, SELFPAY ==
--- NOTE | 2022-03-03 13:38 | ECG_ITS ---
Hook-up date: 2022-03-03 12:46:00 Duration: 42:48:00 Test Indications: BRADYCARDIA Medications: 94208 QRS complexes 66667 Ventricular ectopics which represent 16 % of total QRS comp. * Supraventricular ectopics which represent % of total QRS comp. * Paced QRS complexs which represent % of total QRS comp. VENTRICULAR ECTOPY 5154 Isolated 638 Bigeminal Cycles 2683 Couplets 297 Runs 907 Beats in Runs 4 Beats LONGEST at 109 BPM at 15:13:55 2022-03-03 3 Beats FASTEST at 142 BPM at 23:23:59 2022-03-03 SUPRAVENTRICULAR ECTOPY * Isolated * Couplets * Runs * Beats in Runs * Beats LONGEST at * BPM at :: -- * Beats FASTEST at * BPM at :: -- HEART RATES 28 MIN at 06:20:49 2022-03-04 46 AVG 67 MAX at 18:53:19 2022-03-03 LONGEST RR 2.9360 secs at 06:10:00 2022-03-04 S-T LEVELS Channel 1 - 128 mm at 12:46:00 2022-03-03 - 128 mm at 12:46:00 2022-03-03 Channel 2 - 128 mm at 12:46:00 2022-03-03 - 128 mm at 12:46:00 2022-03-03 Channel 3 - 128 mm at 03:20:51 -- - 128 mm at 03:20:51 Basic rhythm Atrial fibrillation Frequent slow VR to AF with average HR of 46 bpm No significant pauses greater than 3 seconds. Baseline BBB Frequent Premature ventricular complexes Frequent salvos of NSVT, longest 4 beats Patient did not report any symptoms in the diary Referred By: Danny Ron Overread By: PRAMOD DE LEON MD
== END ==
LOC: HO.CARD 13:36
PROVIDERS: PCP Internal Medicine; Visit Provider Internal Medicine Cardiovascular Disease
DX: R00.1 Bradycardia, unspecified (principal)
CPT/HCPCS: 93225; 93226

== ENCOUNTER → 2022-03-13 11:17 | Outpatient (BNVA) | payer OTHER, SELFPAY | PROVIDERS: PCP Internal Medicine; Visit Provider Internal Medicine Cardiovascular Disease | DX: I50.30 Unspecified diastolic (congestive) heart failure (principal); I27.20 Pulmonary hypertension, unspecified; R00.1 Bradycardia, unspecified | CPT/HCPCS: 99212 ==

== ENCOUNTER → 2022-05-26 14:06 | Outpatient (BNVA) | payer OTHER, SELFPAY | PROVIDERS: PCP Internal Medicine; Visit Provider Internal Medicine Pulmonary Disease | DX: I27.20 Pulmonary hypertension, unspecified (principal); J43.9 Emphysema, unspecified; Z79.899 Other long term (current) drug therapy | CPT/HCPCS: 99212 ==

== ENCOUNTER → 2022-06-30 11:26 | Outpatient (BNVA) | payer OTHER, SELFPAY | PROVIDERS: PCP Internal Medicine; Referring Provider Internal Medicine; Visit Provider Internal Medicine Cardiovascular Disease | DX: R07.9 Chest pain, unspecified (principal); I50.30 Unspecified diastolic (congestive) heart failure; I27.20 Pulmonary hypertension, unspecified | CPT/HCPCS: 99212 ==

== ENCOUNTER 2022-07-21 10:26 | Outpatient (REF) | payer OTHER, SELFPAY ==
[2022-07-21 10:43] LABS: MANUAL DIFF FLAG NO
[2022-07-21 11:43] LABS: Basophils Percent Auto 0.9 % (0-2); Eosinophils Percent Auto 0.9 % (0-4); Hematocrit 29.7 % (42.0-52.0); Hemoglobin 9.6 g/dl (14.0-18.0); Imm Gran Abs Auto 0.01 X10*3/uL (0.00-0.03); Imm Gran Pct Auto 0.2 % (0.0-0.4); Lymphocytes Absolute Auto 0.5 X10*3/uL (1.2-4.9); Lymphocytes Percent Auto 10.8 % (20-40); Mean Corpuscular HGB Conc 32.3 g/dl (31.0-36.0); Mean Corpuscular Hemoglobin 32.2 pg (27.0-33.0); Mean Corpuscular Volume 99.7 fL (80.0-98.0); Mean Platelet Volume 10.9 fL (9.4-12.4); Monocytes Absolute Auto 0.3 X10*3/uL (0.1-1.2); Neutrophils Absolute Auto 3.6 x10*3/uL (2.0-8.3); Neutrophils Percent Auto 80.2 % (45-73); Red Blood Count 2.98 X10*6/uL (4.60-5.80); Red Cell Distribution Width 15.9 % (11.0-16.0); White Blood Count 4.4 X10*3/uL (4.8-10.8)
[2022-07-21 12:01] LABS: Prothrombin Time 23.1 SEC (10.0-13.1)
[2022-07-21 12:42] LABS: Alanine Aminotransferase 8 U/L (0-40); Albumin Level 3.3 g/dL (3.5-5.0); Alkaline Phosphatase 140 U/L (39-117); Aspartate Amino Transferase 21 U/L (5-37); Bilirubin Direct 0.5 mg/dL (0.0-0.5); Bilirubin Total 1.1 mg/dL (0.0-1.0); Total Protein 5.6 g/dL (6.5-8.0)
[2022-07-21 12:46] LABS: Platelet Count 98 X10*3/uL (160-400)
[2022-07-22 14:08] LABS: Alpha Fetoprotein 1.8 ng/mL (<6.1)
[2022-07-24 23:39] LABS: FIB-ALT 9 U/L (9-46); FIB-Alpha-2-Macroglobulin 132 mg/dL (106-279); FIB-Apolipoprotein A1 107 mg/dL (94-176); FIB-GGT 17 U/L (3-70); FIB-Haptoglobin 164 mg/dL (43-212); FIB-Total Bilirubin 0.8 mg/dL (0.2-1.2); Liver Fibrosis Score 0.25; Liver Fibrosis Stage F0-F1; Nec Inflam Act Grade A0; Nec Inflam Act Score 0.02
== END 2022-07-21 10:27 | disposition home or self-care (01) ==
LOC: HO.LAB 10:26
PROVIDERS: PCP Internal Medicine; Visit Provider Internal Medicine
DX: K70.30 Alcoholic cirrhosis of liver without ascites (principal)
CPT/HCPCS: 36415; 80076; 81596; 82105; 85025; 85610

== ENCOUNTER → 2022-09-19 09:26 | Outpatient (REF) | payer OTHER, SELFPAY ==
--- NOTE | 2022-09-19 09:31 | CA_ITS ---
Acquisition Time: 2022-09-19 10:06:44 Total Exercise Time: 00:02:31 Test Indications: Abnormal ECG JUNCTIONAL BRADYCAR Medications: SEE H Protocol: CHAPIN Max HR: 077 BPM 50% of Pred: 151 BPM Max BP: 110/068 mmHG Max Work Load: 1.4 METS Exercise stress test with exercise 1 min 48 sec of Chapin protocol, with request to stop due to fatigue and sob, no chest discomfort, without arrythmia, with baseline heart rate 48 and only georgie to 53 with walking, with limited BP assessment with exercise due to short exercise time, with nondiagnostic EKG for ischemia. Test reviewed with Dr Ron. Note: Stress program states he exercise 2 min 31 sec however treadmill stopped at 1 min 48 sec, recovery button not immediately pressed. Referred By: Danny Ron Overread By: SHAKEEL MISHRA
== END ==
LOC: HO.CARD 09:26
PROVIDERS: PCP Internal Medicine; Visit Provider Internal Medicine Cardiovascular Disease
DX: R07.9 Chest pain, unspecified (principal)
CPT/HCPCS: 93017

== ENCOUNTER → 2022-09-22 12:48 | Outpatient (BNVA) | payer OTHER, SELFPAY | PROVIDERS: PCP Internal Medicine; Referring Provider Internal Medicine; Visit Provider Internal Medicine Cardiovascular Disease | DX: I50.30 Unspecified diastolic (congestive) heart failure (principal); I48.0 Paroxysmal atrial fibrillation; I27.20 Pulmonary hypertension, unspecified; R00.1 Bradycardia, unspecified; Z79.899 Other long term (current) drug therapy | CPT/HCPCS: 93005; 99212 ==

== ENCOUNTER 2022-09-24 09:07 | Inpatient (IN) | payer OTHER, SELFPAY ==
[2022-09-24] VITALS (7 sets, daily range): BP systolic 118–143; BP diastolic 39–65; PULSE 46–84; RESP 13–20; TEMP 36–36.4; O2SAT 96–100; BMI 35.5; BMI 36.4
--- NOTE | ~2022-09-24 | XR_ITS ---
EXAMINATION: XR CHEST CLINICAL INFORMATION: Evaluate pacer leads. COMPARISON: Most recent chest radiograph dated 09/27/2022. TECHNIQUE: Frontal view of the chest was obtained. FINDINGS: Left chest wall pacer with the leads overlying the right heart. The leads appear intact. Stable cardiomediastinal silhouette. Patchy right infrahilar airspace opacities, new when compared to the prior examination which could represent atelectasis versus early infiltrates. Mild interstitial prominence and vascular crowding, new when compared to the prior examination. No pleural effusion or pneumothorax. XR/XR chest 1V IMPRESSION: 1. Left chest wall pacer with the leads overlying the right heart. The leads appear intact. 2. Patchy right infrahilar airspace opacities, new when compared to the prior examination which could represent atelectasis versus early infiltrates. Mild interstitial prominence and vascular crowding, new when compared to the prior examination.
--- NOTE | ~2022-09-24 | FL_ITS ---
EXAMINATION: XR FLUOROSCOPY WITH IMAGES CLINICAL INFORMATION: Dual chamber pacemaker. COMPARISON: None available. TECHNIQUE: Fluoroscopy Supervised By: Lambert. Fluoroscopy Time: 1080 seconds. Cumulative Dose: 379.32 mGy. Images: 2. FINDINGS: Partial visualization is made of multiple external artifacts and ventricular and atrial pacer leads. No gross lead interruptions or grossly ectopia identified. FL/FL guidance in OR IMPRESSION: Intraprocedural fluoroscopic guidance as noted above.
--- NOTE | ~2022-09-24 | CT_ITS ---
EXAMINATION: CT ABDOMEN AND PELVIS WITHOUT CONTRAST CLINICAL INFORMATION: Hematuria COMPARISON: December 24, 2020 TECHNIQUE: Multidetector volumetric imaging was performed from the superior aspect of the liver through the pubic symphysis. Sagittal and coronal reformatted images were obtained on the technologist's workstation. This CT examination was performed using dose optimization techniques as appropriate, variously including the following: *Automated exposure control *Adjustment of mA and/or kV according to patient size (this includes techniques or standardized protocols for targeted exams where dose is matched to indication/reason for exam; i.e. extremities or head) *Use of iterative reconstruction technique DLP: 971 mGy-cm FINDINGS: LUNG BASES: There is some discoid atelectasis or scarring seen within the lingula. No pleural or pericardial effusion. Heart is upper limits of normal in size. Coronary artery calcification is present. LIVER, GALLBLADDER, AND BILIARY TREE: The liver has a nodular appearance without focal mass or intrahepatic bile duct dilatation being identified. The gallbladder is unremarkable with no evidence of radiopaque gallstones, gallbladder wall thickening, or obvious pericholecystic inflammatory changes. PANCREAS: Unremarkable. No definite mass or peripancreatic fluid is identified however there is some limited evaluation due to the ascites present. SPLEEN: Unremarkable. ADRENAL GLANDS: Unremarkable. KIDNEYS AND URETERS: The kidneys are normal in size, shape, and attenuation. No hydronephrosis, hydroureter, or collecting system calculi seen. There are some vascular calcifications present. There is perinephric stranding seen. BLADDER: There is nondependent gas present as well as gas about the urinary bladder wall with the wall being thickened. This has the appearance of emphysematous cystitis. GASTROINTESTINAL TRACT: There is small to moderate amount of ascites present. No free air is identified. No dilated loops of large or small bowel. ABDOMINAL WALL: Anasarca is present. LYMPH NODES: There are enlarged bilateral inguinal lymph nodes and right iliac chain lymph nodes VASCULAR: There is prominent calcified plaque throughout the aortoiliac system with no evidence of abdominal aortic aneurysm. PELVIC VISCERA: No suspicious pelvic masses identified. OSSEOUS STRUCTURES: No suspicious destructive bony lesions identified. There is multilevel severe degenerative disc disease seen. CT/CT abdomen pelvis wo IV con IMPRESSION: Emphysematous cystitis. Findings consistent with cirrhosis and small to moderate amount of ascites. Enlarged bilateral inguinal lymph nodes and right iliac chain lymph nodes. Fleischner guidelines were followed.
--- NOTE | ~2022-09-24 | FL_ITS ---
EXAMINATION: XR chest 1V, FL guidance in OR CLINICAL INFORMATION: Reason for Exam f/u pacer leads COMPARISON: Fluoroscopic guidance 09/27/2022 TECHNIQUE: Portable AP chest radiograph, intraprocedural fluoroscopy of the heart FINDINGS: Fluoroscopy: Cumulative dose: 83.31 mCi right. Total fluoroscopy time: 178 seconds. Total images: 2. Digital spot fluoroscopic images demonstrate partial visualization of atrial and ventricular pacer leads with multiple external overlying artifacts. No gross evidence of lead ectopia or discontinuity noted. CHEST: A left pectoral atrioventricular pacer without evidence of lead interruptions or gross lead ectopia is visualized. The heart size is normal. Moderate aortic calcific atherosclerotic plaques are visualized. Pleura no focal pulmonary consolidation is identified. Mild diffuse vascular indistinctness and fine pulmonary reticular opacities are identified. Partial visualization is made of chronic appearing arthropathic changes of the left right glenohumeral joints. FL/FL guidance in OR IMPRESSION: Chest radiograph: *No effusions or pneumothoraces. *Status post left pectoral atrioventricular pacer without evidence of grossly ectopia or discontinuity. *Mild pulmonary vascular congestion. Intraprocedural fluoroscopy: *Digital spot and continues fluoroscopic visualization for pacer placement as detailed above.
--- NOTE | ~2022-09-24 | XR_ITS ---
EXAMINATION: XR CHEST CLINICAL INFORMATION: New pacer. COMPARISON: 12/17/2020. TECHNIQUE: Portable AP view of the chest was obtained. XR/XR chest 1V FINDINGS/IMPRESSION: The study is limited by portable technique and low lung volumes. No focal infiltrate, effusion, pneumothorax is seen. The pulmonary veins may be mildly prominent in the nondependent portions, raising the possibility of mild pulmonary venous hypertension, not grossly changed. The cardiac silhouette is suboptimally evaluated. The aorta is atherosclerotic. The tips of left subclavian pulse generator device leads project over the right atrium and right ventricle. Severe osteoarthritis of the glenohumeral joints. Mild degenerative changes of the spine.
--- NOTE | ~2022-09-24 | XR_ITS ---
EXAMINATION: XR CHEST CLINICAL INFORMATION: Check pacemaker leads COMPARISON: Previous chest x-rays most recent from yesterday TECHNIQUE: Frontal view of the chest was obtained. FINDINGS: There is a left subclavian dual chamber pacemaker that appears unchanged. There are leads projecting over the right atrium and ventricular apex. The cardiac and mediastinal contours are stable. There may be pulmonary venous redistribution. The lungs are otherwise clear. No pleural effusion or pneumothorax. Degenerative changes of the spine and shoulders. XR/XR chest 1V IMPRESSION: Stable position of left subclavian dual chamber pacemaker with leads projecting over the right atrium and ventricular apex. Question pulmonary venous redistribution.
--- NOTE | 2022-09-24 10:21 | ED_ITS ---
HPI - Male Genitourinary General Chief complaint: Urogenital-Male Stated complaint: Blood in Urine Time Seen by Provider: 09/24/22 10:00 Source: patient and old records reviewed Mode of arrival: ambulatory History of Present Illness HPI Narrative: This is a 67-year-old male, with a past medical history of CKD stage 4, diabetes, COPD, hypertension, hypercholesterolemia, sleep apnea, atrial fibrillation on Eliquis, who presents emergency department today with complaints of blood in urine since yesterday. Patient denies any dysuria, urinary frequency or urinary urgency. Denies any recent trauma to his groin. Patient does report that 3 weeks ago he had a perforated bowel which required surgical repair. He was admitted to [facility] for several days and was discharged to a usp which he was discharged from on Thursday. He reports that he had frequent catheterizations at that time. He denies history of hematuria in the past. Denies any fevers or chills, dizziness, weakness, abdominal pain, nausea or vomiting. He is unsure if he has had diarrhea, unable to report bloody or black stool. No other complaints or concerns at this time. Exacerbating factors: urination Context: recent surgery Associated symptoms: Reports denies other symptoms Related Data Home Medications Medication Instructions Recorded Confirmed calcitriol 0.5 mcg capsule 0.5 mcg PO DAILY 04/03/20 09/24/22 albuterol sulfate 90 mcg/actuation 2 puff inhalation 6XD PRN 07/05/20 09/24/22 aerosol inhaler (ProAir HFA) Shortness Of Breath Or Wheezing ferrous sulfate 325 mg (65 mg 325 mg PO DAILY 04/04/21 09/24/22 iron) tablet sodium bicarbonate 650 mg tablet 650 mg PO QID 09/22/22 09/24/22 polyethylene glycol 3350 17 gram 17 g PO DAILY PRN Constipation 09/24/22 09/24/22 oral powder packet (Miralax) torsemide 20 mg tablet 40 mg PO BID 09/24/22 09/24/22 Previous Rx's Medication Instructions Recorded terazosin 5 mg capsule 5 mg PO DAILY #90 caps 07/12/20 kylah.stocking,knee,reg,xlrg #12 ea 11/01/20 compr.stocking,thigh,reg,x-lrg #12 ea 05/31/21 Juxta Lite Compression wraps - #2 ea 07/02/21 Adjustable -for chronic ulcers with open wounds bilat lower extremities APAP 5-15 cm H20 humidified AIR #1 ea 09/06/21 pravastatin 20 mg tablet 20 mg PO BEDTIME #90 tabs 09/09/21 isosorbide mononitrate 30 mg 30 mg PO DAILY #90 tabs 01/17/22 tablet,extended release 24 hr amlodipine 5 mg tablet 5 mg PO DAILY #90 tabs 03/28/22 losartan 100 mg tablet 100 mg PO DAILY 90 days #90 tabs 06/10/22 Anoro Ellipta 62.5 mcg-25 1 ea inhalation DAILY #60 ea 07/07/22 mcg/actuation powder for inhalation (umeclidinium-vilanterol) apixaban 5 mg tablet (Eliquis) 5 mg PO BID #60 tabs 07/07/22 simethicone 80 mg chewable tablet 80 mg PO BID-QID PRN abdominal 07/17/22 (Gas Relief (simethicone)) distention #30 tabs Allergies Allergy/AdvReac Type Severity Reaction Status Date / Time No Known Allergies Allergy Verified 09/22/22 12:56 [No Known Allergies*] Review of Systems Review of Systems: Yes all other systems are reviewed and are negative PMFSH Past Medical History Medical History Afib Anemia BPH (benign prostatic hyperplasia) Chronic kidney disease COPD (chronic obstructive pulmonary disease) Depression, major Diabetic retinopathy Edema Essential thrombocytopenia Fistula Gout High cholesterol HTN (hypertension) Hypercholesterolemia Lumbar degenerative disc disease Lymphedema Obesity (BMI 30-39.9) Obstructive sleep apnea Osteoarthritis Peripheral neuropathy Peripheral vascular disease Pulmonary hypertension Scrotal edema Type 2 diabetes mellitus with hyperglycemia Venous stasis dermatitis Surgical History H/O prior ablation treatment History of bilateral cataract extraction History of carpal tunnel release History of gastric surgery History of tonsillectomy Family History Family History Father Prostate cancer CVD (cardiovascular disease) Mother Hemochromatosis Brother Motor vehicle accident Sister CAD (coronary artery disease) Maternal Grandfather Myocardial infarction Social History Social History Household Members: Significant Other Housing: House Alcohol intake: never Patient Tobacco Use Status: Former Tobacco user Smoked in Last 30 Days: Yes e-Cigarette/Vaping Use: Never Used Second Hand Smoke Exposure: Yes Substance Use Type: Marijuana Substance Use Frequency: Daily Advance Directives: No Nutrition Risks: No Nutritional Risk service: No Current occupational status: retired and disabled Cognitive needs: Yes Hearing needs: Yes Vision needs: Yes Physical Exam Vital Signs: Vital Signs: Last Vital Signs Temp 97.6 F 09/24/22 09:24 Pulse 46 L 09/24/22 17:13 Resp 20 09/24/22 17:13 BP 139/58 L 09/24/22 17:13 Pulse Ox 100 09/24/22 17:13 O2 Del Method Room Air 09/24/22 17:13 BMI result Body Mass Index 35.5 Appearance: Alert. Oriented X3. No acute distress. Eyes: Pupils equal, round and reactive to light. EOMI ENT: Pharynx normal. Moist mucus membranes. Neck: Normal inspection. Neck supple. CVS:Irregularly irregular. No murmurs, rubs or gallops. Respiratory: No respiratory distress. Breath sounds normal. Coarse lung sounds in the bases, no wheezes. Abdomen: Soft and nontender. +BS x4 Skin: Skin warm and dry. Normal skin color. Normal skin turgor. No rashes. Extremities: Bilateral lower extremities with advanced vascular changes extending from bilateral knees and distally. Faint, but palpable pedal pulses bilaterally. No calf tenderness. No erythema or edema. Neuro: Oriented X 3. No motor deficit. No sensory deficit. CN II-XII intact. Course Reevaluation(s) Reevaluation #1: Creatining 5.01 - 1L IV fluids ordered. UA and CT abdomen still pending. Time: 13:00 Reevaluation #2: Labs reveal Creatinine 5.01, BUN 106, H&H 7.3/23.4, with a WBC 2.6k, with urine 100+ urine protein, Large blood, large leukocytes, negative nitrates. CT abdomen obtained revealing Emphysematous cystitis. Findings consistent with cirrhosis and small to moderate amount ofascites. Enlarged bilateral inguinal lymph nodes and right iliac chain lymph nodes . Second L IV fluids, 1g Ceftriaxone, o rdered. Lactate and blood cultures ordered. Discussed case with Hospital Medicine physician, Dr. Wagoner, who suggests to speak with Urology. I reached out to Dr. Gonzalez who is going to review the CT scan images and get back to me. Transfer to Hospital Medicine initiated. Time: 14:23 Time: 17:39 Medications Administered Generic Name Dose Route Start Last Admin Trade Name Freq PRN Reason Stop Dose Admin Sodium Bicarbonate 650 mg 09/24/22 17:00 09/24/22 17:10 Sodium Bicarbonate 650 Mg Tablet PO 650 mg QID ROBERT Administration Sodium Chloride 3 ml 09/24/22 16:00 09/24/22 17:06 0.9 % Sodium Chloride Flush 3 Ml Syringe IVFLUSH Not Given QSHIFT ROBERT Discontinued Medications Generic Name Dose Route Start Last Admin Trade Name Freq PRN Reason Stop Dose Admin Sodium Chloride 1,000 mls @ 999 mls/hr 09/24/22 11:20 09/24/22 13:23 Ns IVCONT 09/24/22 12:20 Infused .Q1H1M ONE Infusion Sodium Chloride 1,000 mls @ 999 mls/hr 09/24/22 14:15 09/24/22 17:10 Ns IVCONT 09/24/22 16:15 999 mls/hr .Q1H1M ROBERT Administration Ceftriaxone Sodium 1 gm/ 50 mls @ 100 mls/hr 09/24/22 14:18 09/24/22 17:06 Sodium Chloride IV 09/24/22 14:47 Infused ONCE ONE Infusion Medical Decision Making Medical Decision Making [facility] Narrative: [id number], with a past medical history of CKD stage 4, diabetes, COPD, hypertension, hypercholesterolemia, sleep apnea, atrial fibrillation on Eliquis, who presents today for complaints of hematuria since yesterday. Pt had recent hospitalization 3 weeks ago after having a perforated duodenum with surgical repair from August 15-August 26, 2022. Obtained medical records from [facility], see below. Denies any dysuria, abdominal pain, nausea, or vomiting. He was unsure of any bloody/black stool, hemoccult stool sample collected and was negative. On exam, patient has no abdominal tenderness and is nontoxic appearing. Differential Diagnosis Differential Diagnoses: The differential diagnosis associated with the presentation includes UTI, CARY, Hematuria, Cystitis, Nephroliathiasis Lab Data [facility] Lab Attestation statement: I reviewed the patient's lab results. 09/24/22 10:33 09/24/22 10:33 Labs: Lab Results 09/24/22 09/24/22 09/24/22 Range/Units 10:33 10:33 10:33 WBC 2.6 L (4.8-10.8) X10*3/uL RBC 2.29 L D (4.60-5.80) X10*6/uL Hgb 7.3 L D (14.0-18.0) g/dl Hct 23.4 L D (42.0-52.0) % MCV 102.2 H (80.0-98.0) fL MCH 31.9 (27.0-33.0) pg MCHC 31.2 (31.0-36.0) g/dl RDW 17.2 H (11.0-16.0) % Plt Count 77 L (160-400) X10*3/uL MPV 9.5 (9.4-12.4) fL Immature Gran % (Auto) 0.4 (0.0-0.4) % Neut % (Auto) 72.9 (45-73) % Lymph % (Auto) 14.3 L (20-40) % [place] % (Auto) 11.2 H (2-11) % Eos % (Auto) 0.0 (0-4) % Baso % (Auto) 1.2 (0-2) % Lymph # (Auto) 0.4 L (1.2-4.9) X10*3/uL [place] # (Auto) 0.3 (0.1-1.2) X10*3/uL Eos # (Auto) 0.0 (0.0-0.4) X10*3/uL Baso # (Auto) 0.0 (0.0-0.2) X10*3/uL Abs Immat Gran (auto) 0.01 (0.00-0.03) X10*3/uL Absolute Neuts (auto) 1.9 L (2.0-8.3) x10*3/uL Absolute Nucleated RBC 0.000 (0.0-0.012) X10*3/uL Nucleated RBC % (auto) 0.0 (0.0-0.2) /100WBC PT 21.9 H (10.0-13.1) SEC INR 1.9 H (0.9-1.1) APTT 38.6 H (26.0-36.4) SEC Sodium 143 (135-145) mmol/L Potassium 5.0 (3.3-5.1) mmol/L Chloride 113 H (96-108) mmol/L Carbon Dioxide 18 L (22-29) mmol/L Anion Gap 17 (12-20) BUN 106 H (9-16) mg/dL Creatinine 5.01 H* (0.5-1.4) mg/dL Estim Creat Clear Calc 17.9 Estimated GFR 12 Random Glucose 77 (60-115) mg/dL Lactic Acid (0.5-2.0) mmol/L Calcium 8.0 L D (8.4-10.2) mg/dL Magnesium 1.9 (1.6-2.6) mg/dL Total Bilirubin 0.8 (0.0-1.0) mg/dL Direct Bilirubin 0.3 (0.0-0.5) mg/dL AST 12 (5-37) U/L ALT 12 (0-40) U/L Alkaline Phosphatase 131 H (39-117) U/L Total Protein 5.7 L (6.5-8.0) g/dL Albumin 3.2 L (3.5-5.0) g/dL Lipase 47 (8-78) U/L Urine Color Urine Appearance Urine pH (5.0-9.0) Ur Specific [place] (1.005-1.025) Urine Protein (Neg-Trace) mg/dL Urine Glucose (UA) (Negative) mg/dL Urine Ketones (Negative) mg/dL Urine Blood (Negative) Urine Nitrite (Negative) Ur Leukocyte Esterase (Negative) Urine RBC (0-2) /HPF Urine WBC (0-5) /HPF Ur Squamous Epith Cells (0-2) /HPF Urine Bacteria (None Seen) Hyaline Casts (0-2) /LPF Ur Random Sodium mmol/L Urine Creatinine mg/dL Stool Occult Blood (NEGATIVE) Influenza Type A (PCR) (Negative) Influenza Type B (PCR) (Negative) RSV RNA Qual (PCR) (Negative) SARS-CoV-2 RNA (RT-PCR) (Negative) Blood Type Antibody Screen 09/24/22 09/24/22 09/24/22 Range/Units 10:33 13:37 13:37 WBC (4.8-10.8) X10*3/uL RBC (4.60-5.80) X10*6/uL Hgb (14.0-18.0) g/dl Hct (42.0-52.0) % MCV (80.0-98.0) fL MCH (27.0-33.0) pg MCHC (31.0-36.0) g/dl RDW (11.0-16.0) % Plt Count (160-400) X10*3/uL MPV (9.4-12.4) fL Immature Gran % (Auto) (0.0-0.4) % Neut % (Auto) (45-73) % Lymph % (Auto) (20-40) % [place] % (Auto) (2-11) % Eos % (Auto) (0-4) % Baso % (Auto) (0-2) % Lymph # (Auto) (1.2-4.9) X10*3/uL [place] # (Auto) (0.1-1.2) X10*3/uL Eos # (Auto) (0.0-0.4) X10*3/uL Baso # (Auto) (0.0-0.2) X10*3/uL Abs Immat Gran (auto) (0.00-0.03) X10*3/uL Absolute Neuts (auto) (2.0-8.3) x10*3/uL Absolute Nucleated RBC (0.0-0.012) X10*3/uL Nucleated RBC % (auto) (0.0-0.2) /100WBC PT (10.0-13.1) SEC INR (0.9-1.1) APTT (26.0-36.4) SEC Sodium (135-145) mmol/L Potassium (3.3-5.1) mmol/L Chloride (96-108) mmol/L Carbon Dioxide (22-29) mmol/L Anion Gap (12-20) BUN (9-16) mg/dL Creatinine (0.5-1.4) mg/dL Estim Creat Clear Calc Estimated GFR Random Glucose (60-115) mg/dL Lactic Acid (0.5-2.0) mmol/L Calcium (8.4-10.2) mg/dL Magnesium (1.6-2.6) mg/dL Total Bilirubin (0.0-1.0) mg/dL Direct Bilirubin (0.0-0.5) mg/dL AST (5-37) U/L ALT (0-40) U/L Alkaline Phosphatase (39-117) U/L Total Protein (6.5-8.0) g/dL Albumin (3.5-5.0) g/dL Lipase (8-78) U/L Urine Color Urine Appearance Urine pH (5.0-9.0) Ur Specific [place] (1.005-1.025) Urine Protein (Neg-Trace) mg/dL Urine Glucose (UA) (Negative) mg/dL Urine Ketones (Negative) mg/dL Urine Blood (Negative) Urine Nitrite (Negative) Ur Leukocyte Esterase (Negative) Urine RBC (0-2) /HPF Urine WBC (0-5) /HPF Ur Squamous Epith Cells (0-2) /HPF Urine Bacteria (None Seen) Hyaline Casts (0-2) /LPF Ur Random Sodium 64.0 mmol/L Urine Creatinine 70.94 mg/dL Stool Occult Blood NEGATIVE (NEGATIVE) Influenza Type A (PCR) NEGATIVE (Negative) Influenza Type B (PCR) NEGATIVE (Negative) RSV RNA Qual (PCR) NEGATIVE (Negative) SARS-CoV-2 RNA (RT-PCR) NEGATIVE (Negative) Blood Type Antibody Screen 09/24/22 09/24/22 09/24/22 Range/Units 13:37 14:15 14:15 WBC (4.8-10.8) X10*3/uL RBC (4.60-5.80) X10*6/uL Hgb (14.0-18.0) g/dl Hct (42.0-52.0) % MCV (80.0-98.0) fL MCH (27.0-33.0) pg MCHC (31.0-36.0) g/dl RDW (11.0-16.0) % Plt Count (160-400) X10*3/uL MPV (9.4-12.4) fL Immature Gran % (Auto) (0.0-0.4) % Neut % (Auto) (45-73) % Lymph % (Auto) (20-40) % [place] % (Auto) (2-11) % Eos % (Auto) (0-4) % Baso % (Auto) (0-2) % Lymph # (Auto) (1.2-4.9) X10*3/uL [place] # (Auto) (0.1-1.2) X10*3/uL Eos # (Auto) (0.0-0.4) X10*3/uL Baso # (Auto) (0.0-0.2) X10*3/uL Abs Immat Gran (auto) (0.00-0.03) X10*3/uL Absolute Neuts (auto) (2.0-8.3) x10*3/uL Absolute Nucleated RBC (0.0-0.012) X10*3/uL Nucleated RBC % (auto) (0.0-0.2) /100WBC PT (10.0-13.1) SEC INR (0.9-1.1) APTT (26.0-36.4) SEC Sodium (135-145) mmol/L Potassium (3.3-5.1) mmol/L Chloride (96-108) mmol/L Carbon Dioxide (22-29) mmol/L Anion Gap (12-20) BUN (9-16) mg/dL Creatinine (0.5-1.4) mg/dL Estim Creat Clear Calc Estimated GFR Random Glucose (60-115) mg/dL Lactic Acid 0.7 (0.5-2.0) mmol/L Calcium (8.4-10.2) mg/dL Magnesium (1.6-2.6) mg/dL Total Bilirubin (0.0-1.0) mg/dL Direct Bilirubin (0.0-0.5) mg/dL AST (5-37) U/L ALT (0-40) U/L Alkaline Phosphatase (39-117) U/L Total Protein (6.5-8.0) g/dL Albumin (3.5-5.0) g/dL Lipase (8-78) U/L Urine Color Dark Yellow Urine Appearance Turbid Urine pH 5.5 (5.0-9.0) Ur Specific [place] 1.010 (1.005-1.025) Urine Protein 100 (2+) H (Neg-Trace) mg/dL Urine Glucose (UA) Negative (Negative) mg/dL Urine Ketones Negative (Negative) mg/dL Urine Blood Large (3+) H (Negative) Urine Nitrite Negative (Negative) Ur Leukocyte Esterase Large (3+) H (Negative) Urine RBC >20 H (0-2) /HPF Urine WBC >50 H (0-5) /HPF Ur Squamous Epith Cells 0-2 (0-2) /HPF Urine Bacteria 4+ (None Seen) Hyaline Casts 0-2 (0-2) /LPF Ur Random Sodium mmol/L Urine Creatinine mg/dL Stool Occult Blood (NEGATIVE) Influenza Type A (PCR) (Negative) Influenza Type B (PCR) (Negative) RSV RNA Qual (PCR) (Negative) SARS-CoV-2 RNA (RT-PCR) (Negative) Blood Type A Negative Antibody Screen NEGATIVE Independent Interpretation I performed an independent interpretation of an: CT Scan Interpretation: EXAMINATION: CT ABDOMEN AND PELVIS WITHOUT CONTRAST? CLINICAL INFORMATION: Hematuria? COMPARISON: December 24, 2020? TECHNIQUE: Multidetector volumetric imaging was performed from the superior aspect of the liver through the pubic symphysis. Sagittal and coronal reformatted images were obtained on the technologist's workstation.? This CT examination was performed using dose optimization techniques as appropriate, variously including the following: *Automated exposure control *Adjustment of mA and/or kV according to patient size (this includes techniques or standardized protocols for targeted exams where dose is matched to indication/reason for exam; i.e. extremities or head) *Use of iterative reconstruction technique DLP: 971 mGy-cm FINDINGS: LUNG BASES: There is some discoid atelectasis or scarring seen within the lingula. No pleural or pericardial effusion. Heart is upper limits of normal in size. Coronary artery calcification is present.? LIVER, GALLBLADDER, AND BILIARY TREE: The liver has a nodular appearance without focal mass or intrahepatic bile duct dilatation being identified. The gallbladder is unremarkable with no evidence of radiopaque gallstones, gallbladder wall thickening, or obvious pericholecystic inflammatory changes.? PANCREAS: Unremarkable. No definite mass or peripancreatic fluid is identified however there is some limited evaluation due to the ascites present. SPLEEN: Unremarkable.? ADRENAL GLANDS: Unremarkable.? KIDNEYS AND URETERS: The kidneys are normal in size, shape, and attenuation. No hydronephrosis, hydroureter, or collecting system calculi seen. There are some vascular calcifications present. There is perinephric stranding seen. BLADDER: There is nondependent gas present as well as gas about the urinary bladder wall with the wall being thickened. This has the appearance of emphysematous cystitis.? GASTROINTESTINAL TRACT: There is small to moderate amount of ascites present. No free air is identified. No dilated loops of large or small bowel.? ABDOMINAL WALL: Anasarca is present.? LYMPH NODES: There are enlarged bilateral inguinal lymph nodes and right iliac chain lymph nodes VASCULAR: There is prominent calcified plaque throughout the aortoiliac system with no evidence of abdominal aortic aneurysm. PELVIC VISCERA: No suspicious pelvic masses identified.? OSSEOUS STRUCTURES: No suspicious destructive bony lesions identified. There is multilevel severe degenerative disc disease seen.? CT/CT abdomen pelvis wo IV con IMPRESSION: Emphysematous cystitis. ? Findings consistent with cirrhosis and small to moderate amount of ascites. ? Enlarged bilateral inguinal lymph nodes and right iliac chain lymph nodes. ? Fleischner guidelines were followed. Dictated By: Jarvis Figueredo MD External Record Review External record reviewed: Inpatient record and Outside ED record Review of medical records from [facility] hospital admission: Creatinine on September 08, 2022 was 3.6. During his hospital stay he received blood transfusion for symptomatic anemia H&H at that time was 7.6. Patient presented to the ED at that time due to abdominal pain, CT abdomen revealed a moderate volume pneumoperitoneum concerning for bowel perforation general surgery was consulted he was taken to the or emergent urgently for an ex lap with primary repair of the duodenal perforation with Amrit patch repair with PAUL drain placement. He was admitted to the surgical ICU for blood pressure support and renal was consulted for an acute on chronic kidney failure. Patient has never required hemodialysis. He was weaned off pressors and transferred out of the ICU on 08/18. Postoperative day 5 PAUL drain was noticed to have increased bloody output and was sent for IR for evaluation. He had an upper GI study on 08/21 revealing no evidence of leak. Surgery performed by Dr. Heredia. Prescription Management I considered prescription management with: Antibiotic Chronic Conditions Patient?s care impacted by: Diabetes and Other (CKD stage 4) Discharge Plan Discharge Clinical Impression: Cystitis, Acute kidney injury superimposed on chronic kidney disease Patient Disposition: Admitted As Inpatient
[2022-09-24 10:38] LABS: MANUAL DIFF FLAG NO
[2022-09-24 10:44] LABS: Basophils Percent Auto 1.2 % (0-2); Hematocrit 23.4 % (42.0-52.0); Hemoglobin 7.3 g/dl (14.0-18.0); Imm Gran Abs Auto 0.01 X10*3/uL (0.00-0.03); Imm Gran Pct Auto 0.4 % (0.0-0.4); Lymphocytes Absolute Auto 0.4 X10*3/uL (1.2-4.9); Lymphocytes Percent Auto 14.3 % (20-40); Mean Corpuscular HGB Conc 31.2 g/dl (31.0-36.0); Mean Corpuscular Hemoglobin 31.9 pg (27.0-33.0); Mean Corpuscular Volume 102.2 fL (80.0-98.0); Mean Platelet Volume 9.5 fL (9.4-12.4); Monocytes Absolute Auto 0.3 X10*3/uL (0.1-1.2); Monocytes Percent Auto 11.2 % (2-11); Neutrophils Absolute Auto 1.9 x10*3/uL (2.0-8.3); Neutrophils Percent Auto 72.9 % (45-73); Red Blood Count 2.29 X10*6/uL (4.60-5.80); Red Cell Distribution Width 17.2 % (11.0-16.0)
[2022-09-24 10:45] LABS: Platelet Count 77 X10*3/uL (160-400)
[2022-09-24 10:46] LABS: White Blood Count 2.6 X10*3/uL (4.8-10.8)
[2022-09-24 10:56] LABS: INTERNATIONAL NORM RATIO 1.9 (0.9-1.1); Prothrombin Time 21.9 SEC (10.0-13.1)
[2022-09-24 10:58] LABS: Partial Thromboplastin Time 38.6 SEC (26.0-36.4)
[2022-09-24 11:16] LABS: Alanine Aminotransferase 12 U/L (0-40); Albumin Level 3.2 g/dL (3.5-5.0); Alkaline Phosphatase 131 U/L (39-117); Anion Gap 17 (12-20); Aspartate Amino Transferase 12 U/L (5-37); Bilirubin Direct 0.3 mg/dL (0.0-0.5); Bilirubin Total 0.8 mg/dL (0.0-1.0); Blood Urea Nitrogen 106 mg/dL (9-16); Carbon Dioxide 18 mmol/L (22-29); Chloride 113 mmol/L (96-108); Creatinine Clr Calc Pharmacy 17.9; Estimated Glomerular Filt Rate 12; Glucose Random 77 mg/dL (60-115); Lipase 47 U/L (8-78); Magnesium 1.9 mg/dL (1.6-2.6); Sodium 143 mmol/L (135-145); Total Protein 5.7 g/dL (6.5-8.0)
[2022-09-24 11:33] LABS: Influenza A PCR NEGATIVE (Negative); Influenza B PCR NEGATIVE (Negative); Resp Syncy Virus RNA Qual PCR NEGATIVE (Negative); SARS COV2 PCR INHOUSE NEGATIVE (Negative)
[2022-09-24] MEDS: 0.9 % Sodium Chloride 1,000 ML 999 ML IVCONT ×3 (12:07→17:10)
--- NOTE | 2022-09-24 12:45 | PHA.MEDREC ---
Pharmacy Consult ? Medication Reconciliation Pharmacy has completed the medication reconciliation. Completed med rec using claim history and confirmed meds with patient. He states he is now on torsemide 40 mg bid per his md reduced from 60 mg bid.
[2022-09-24 13:51] LABS: OBS Int Ctl Valid YES; OBS1 NEGATIVE (NEGATIVE)
[2022-09-24 13:55] LABS: Creatinine Urine 70.94 mg/dL
[2022-09-24 13:56] LABS: Appearance Urine Turbid; Glucose Urine UA Negative (Negative); Leukocyte Esterase Urine Large (3+) (Negative); Nitrite Urine Negative (Negative); PH 5.5 (5.0-9.0); UMIC TRIGGER UACC YES; Urine Blood Large (3+) (Negative); Urine Ketones Negative (Negative); Urine Protein 100 (2+) mg/dL (Neg-Trace)
[2022-09-24 13:57] LABS: Color Urine Dark Yellow
[2022-09-24 13:58] LABS: Bacteria Urine 4+ (None Seen); Hyaline Casts Urine 0-2 /LPF (0-2); RBC Urine >20 /HPF (0-2); Squamous Epithelial Cell Urine 0-2 /HPF (0-2); UACC Culture Trigger YES; WBC Urine >50 /HPF (0-5)
[2022-09-24 14:34] LABS: Lactic Acid 0.7 mmol/L (0.5-2.0)
[2022-09-24] MEDS: cefTRIAXone sodium 1 GM in 0.9 % Sodium Chloride 50 ML IV (14:48)
--- NOTE | 2022-09-24 16:03 | P.HPHOSP_ITS ---
History of Present Illness Date of Service: 09/24/22 Chief Complaint: urinating blood 67-year-old male, with a past medical history of CKD stage 4, diabetes, COPD, hypertension, hypercholesterolemia, sleep apnea, atrial fibrillation on Eliquis, who presents emergency department today with complaints of blood in urine since yesterday.? Patient denies any dysuria, urinary frequency or urinary urgency.? Denies any recent trauma to his groin.? Patient does report that 3 weeks ago he had a perforated bowel which required surgical repair.? He was admitted to [facility] for several days and was discharged to a long-term which he was discharged from on Thursday.? He reports that he had frequent catheteri zations at that time.? He denies history of hematuria in the past.? Denies any fevers or chills, dizziness, weakness, abdominal pain, nausea or vomiting.? He is unsure if he has had diarrhea, unable to report bloody or black stool.? No other complaints or concerns at this time. Recent creatinine 09/07/2022 was 3.6 at [facility]. Review of Systems Review of Systems: Denies chest pain Denies shortness of breath Denies nausea vomiting diarrhea Denies fever chills PMFSH Medical History Afib Anemia BPH (benign prostatic hyperplasia) Chronic kidney disease COPD (chronic obstructive pulmonary disease) Depression, major Diabetic retinopathy Edema Essential thrombocytopenia Fistula Gout High cholesterol HTN (hypertension) Hypercholesterolemia Lumbar degenerative disc disease Lymphedema Obesity (BMI 30-39.9) Obstructive sleep apnea Osteoarthritis Peripheral neuropathy Peripheral vascular disease Pulmonary hypertension Scrotal edema Type 2 diabetes mellitus with hyperglycemia Venous stasis dermatitis Family History Father Prostate cancer CVD (cardiovascular disease) Mother Hemochromatosis Brother Motor vehicle accident Sister CAD (coronary artery disease) Maternal Grandfather Myocardial infarction Surgical History H/O prior ablation treatment History of bilateral cataract extraction History of carpal tunnel release History of gastric surgery History of tonsillectomy Social History Household Members: Significant Other Housing: House Alcohol intake: never Patient Tobacco Use Status: Former Tobacco user Smoked in Last 30 Days: Yes e-Cigarette/Vaping Use: Never Used Second Hand Smoke Exposure: Yes Substance Use Type: Marijuana Substance Use Frequency: Daily Advance Directives: No service: No Current occupational status: retired and disabled Cognitive needs: Yes Hearing needs: Yes Vision needs: Yes Meds Allergies Allergy/AdvReac Type Severity Reaction Status Date / Time No Known Allergies Allergy Verified 09/22/22 12:56 [No Known Allergies*] Active Medications: Current Medications Acetaminophen (Acetaminophen 325 Mg Tablet) 650 mg PO Q6H PRN PRN Reason: Pain, Mild (Pain Scale 1-3) Albuterol Sulfate (Albuterol Sulfate 90 Mcg 8 Gm Inhaler) 2 puff INHALE 6XD PRN PRN Reason: Shortness Of Breath Or Wheezing Amlodipine Besylate (Amlodipine Besylate 5 Mg Tablet) 5 mg PO DAILY ROBERT; Protocol Apixaban (Apixaban 5 Mg Tablet) 5 mg PO BID ROBERT Sodium Chloride (Ns) 1,000 mls @ 999 mls/hr IVCONT .Q1H1M ROBERT Stop: 09/24/22 16:15 Last Admin: 09/24/22 14:48 Dose: 999 mls/hr Ceftriaxone Sodium 1 gm/ (Sodium Chloride) 50 mls @ 100 mls/hr IV Q24H [facility] Isosorbide Mononitrate (Isosorbide Mononitrate 30 Mg Tab.Er.24h) 30 mg PO DAILY ROBERT; Protocol Losartan Potassium (Losartan Potassium 50 Mg Tablet) 100 mg PO DAILY ROBERT; Protocol Non-Formulary Medication (Umeclidinium-Vilanterol [Anoro Ellipta]) 1 each INHALE DAILY [facility] Non-Formulary Medication (Ferrous Sulfate) 325 mg PO DAILY [facility] Non-Formulary Medication (Terazosin) 5 mg PO DAILY [facility] Ondansetron HCl (Ondansetron Hcl 4 Mg/2 Ml Vial) 4 mg IVPUSH Q8H PRN PRN Reason: Nausea and Vomiting Pharmacy Consult (Consult Rx Perform Med Rec) 1 each MISCELLANE ONCE PRN PRN Reason: Consult order Pravastatin Sodium (Pravastatin Sodium 20 Mg Tablet) 20 mg PO BEDTIME [facility] Sodium Bicarbonate (Sodium Bicarbonate 650 Mg Tablet) 650 mg PO QID [facility] Sodium Chloride (0.9 % Sodium Chloride Flush 3 Ml Syringe) 3 ml IVFLUSH QSHIFT [facility] Home Medications Medication Instructions Recorded Confirmed Last Taken Type calcitriol 0.5 mcg capsule 0.5 mcg PO DAILY 04/03/20 09/24/22 09/23/22 History albuterol sulfate 90 mcg/actuation 2 puff inhalation 6XD PRN 07/05/20 09/24/22 09/23/22 History aerosol inhaler (ProAir HFA) Shortness Of Breath Or Wheezing ferrous sulfate 325 mg (65 mg 325 mg PO DAILY 04/04/21 09/24/22 09/23/22 History iron) tablet sodium bicarbonate 650 mg tablet 650 mg PO QID 09/22/22 09/24/22 09/23/22 History polyethylene glycol 3350 17 gram 17 g PO DAILY PRN Constipation 09/24/22 09/24/22 Unknown History oral powder packet (Miralax) torsemide 20 mg tablet 40 mg PO BID 09/24/22 09/24/22 09/23/22 History Physical Exam 2 Vital Signs and Narrative: Vital Signs: Last Vital Signs Temp 97.6 F 09/24/22 09:24 Pulse 48 L 09/24/22 15:58 Resp 19 09/24/22 15:58 BP 118/52 L 09/24/22 15:58 Pulse Ox 98 09/24/22 15:58 O2 Del Method Room Air 09/24/22 15:58 BMI result Body Mass Index 35.5 Const: Other: Awake alert oriented x3 no acute distress Resp: Other: Clear to auscultation bilaterally no rales rhonchi or wheezes Cardio: Other: No S4; positive S1-S2; no S3 murmurs rubs or gallops. Irregularly irregular GI: Other: Soft nontender nondistended normoactive bowel sounds Extrem: Other: Chronic venous stasis changes bilateral lower extremity Results Labs 09/24/22 10:33 09/24/22 10:33 Labs: Laboratory Results - last 24 hr 09/24/22 09/24/22 09/24/22 10:33 10:33 10:33 MCV 102.2 H MCH 31.9 MCHC 31.2 RDW 17.2 H Plt Count 77 L MPV 9.5 Immature Gran % (Auto) 0.4 Neut % (Auto) 72.9 Lymph % (Auto) 14.3 L [place] % (Auto) 11.2 H Eos % (Auto) 0.0 Baso % (Auto) 1.2 Lymph # (Auto) 0.4 L [place] # (Auto) 0.3 Eos # (Auto) 0.0 Baso # (Auto) 0.0 Abs Immat Gran (auto) 0.01 Absolute Neuts (auto) 1.9 L Absolute Nucleated RBC 0.000 Nucleated RBC % (auto) 0.0 PT 21.9 H INR 1.9 H APTT 38.6 H Anion Gap 17 Estim Creat Clear Calc 17.9 Estimated GFR 12 Random Glucose 77 Lactic Acid Calcium 8.0 L D Magnesium 1.9 Total Bilirubin 0.8 Direct Bilirubin 0.3 AST 12 ALT 12 Alkaline Phosphatase 131 H Total Protein 5.7 L Albumin 3.2 L Lipase 47 Urine Color Urine Appearance Urine pH Ur Specific [place] Urine Protein Urine Glucose (UA) Urine Ketones Urine Blood Urine Nitrite Ur Leukocyte Esterase Urine RBC Urine WBC Ur Squamous Epith Cells Urine Bacteria Hyaline Casts Ur Random Sodium Urine Creatinine Stool Occult Blood Influenza Type A (PCR) Influenza Type B (PCR) RSV RNA Qual (PCR) SARS-CoV-2 RNA (RT-PCR) Blood Type Antibody Screen 09/24/22 09/24/22 09/24/22 10:33 13:37 13:37 MCV MCH MCHC RDW Plt Count MPV Immature Gran % (Auto) Neut % (Auto) Lymph % (Auto) [place] % (Auto) Eos % (Auto) Baso % (Auto) Lymph # (Auto) [place] # (Auto) Eos # (Auto) Baso # (Auto) Abs Immat Gran (auto) Absolute Neuts (auto) Absolute Nucleated RBC Nucleated RBC % (auto) PT INR APTT Anion Gap Estim Creat Clear Calc Estimated GFR Random Glucose Lactic Acid Calcium Magnesium Total Bilirubin Direct Bilirubin AST ALT Alkaline Phosphatase Total Protein Albumin Lipase Urine Color Urine Appearance Urine pH Ur Specific [place] Urine Protein Urine Glucose (UA) Urine Ketones Urine Blood Urine Nitrite Ur Leukocyte Esterase Urine RBC Urine WBC Ur Squamous Epith Cells Urine Bacteria Hyaline Casts Ur Random Sodium 64.0 Urine Creatinine 70.94 Stool Occult Blood NEGATIVE Influenza Type A (PCR) NEGATIVE Influenza Type B (PCR) NEGATIVE RSV RNA Qual (PCR) NEGATIVE SARS-CoV-2 RNA (RT-PCR) NEGATIVE Blood Type Antibody Screen 09/24/22 09/24/22 09/24/22 13:37 14:15 14:15 MCV MCH MCHC RDW Plt Count MPV Immature Gran % (Auto) Neut % (Auto) Lymph % (Auto) [place] % (Auto) Eos % (Auto) Baso % (Auto) Lymph # (Auto) [place] # (Auto) Eos # (Auto) Baso # (Auto) Abs Immat Gran (auto) Absolute Neuts (auto) Absolute Nucleated RBC Nucleated RBC % (auto) PT INR APTT Anion Gap Estim Creat Clear Calc Estimated GFR Random Glucose Lactic Acid 0.7 Calcium Magnesium Total Bilirubin Direct Bilirubin AST ALT Alkaline Phosphatase Total Protein Albumin Lipase Urine Color Dark Yellow Urine Appearance Turbid Urine pH 5.5 Ur Specific [place] 1.010 Urine Protein 100 (2+) H Urine Glucose (UA) Negative Urine Ketones Negative Urine Blood Large (3+) H Urine Nitrite Negative Ur Leukocyte Esterase Large (3+) H Urine RBC >20 H Urine WBC >50 H Ur Squamous Epith Cells 0-2 Urine Bacteria 4+ Hyaline Casts 0-2 Ur Random Sodium Urine Creatinine Stool Occult Blood Influenza Type A (PCR) Influenza Type B (PCR) RSV RNA Qual (PCR) SARS-CoV-2 RNA (RT-PCR) Blood Type A Negative Antibody Screen NEGATIVE Imaging Radiologist's Impressions: Impressions Abdomen/Pelvis CT 09/24/22 11:53 IMPRESSION: Emphysematous cystitis. Findings consistent with cirrhosis and small to moderate amount of ascites. Enlarged bilateral inguinal lymph nodes and right iliac chain lymph nodes. Fleischner guidelines were followed. Assessment and Plan (1) Hematuria: Status: Acute (2) Acute kidney injury superimposed on chronic kidney disease: Status: Acute (3) Paroxysmal A-fib: Status: Acute (4) Type 2 diabetes mellitus with hyperglycemia: Qualifiers: Diabetes mellitus joint terminal attack controller insulin use: without halfway use Qualified Code(s): E11.65 - Type 2 diabetes mellitus with hyperglycemia Status: Acute (5) HTN (hypertension): Qualifiers: Hypertension type: essential hypertension Qualified Code(s): I10 - Essential (primary) hypertension Status: Acute Plan 67-year-old male presents emergency room today with a complaint of gross hematuria. 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 Found to have acute kidney injury in backdrop of chronic kidney disease. Patient recently admitted to [facility] secondary to abdominal pain; CT abdomen revealed a moderate volume pneumoperitoneum concerning for bowel perforation general surgery was consulted he was taken to the or emergent urgently for an ex lap with primary repair of the duodenal perforation with Amrit patch repair with PAUL drain placement.? He was admitted to the surgical ICU for blood pressure support and renal was consulted for an acute on chronic kidney failure.? Patient has never required hemodialysis.? He was weaned off pressors and transferred out of the ICU on 08/18.? Postoperative day 5 PAUL drain was noticed to have increased bloody output and was sent for IR for evaluation.? He had an upper GI study on 08/21 revealing no evidence of leak. 1. Hematuria (in backdrop of emphysematous cystitis) -empirically cover with ceftriaxone -consult urology -strict I&Os 2. Acute kidney injury superimposed on chronic kidney disease -clinically volume depleted. Received 3 L fluid bolus in ER -follow renals/divalents -nephrology consult in a.m. 3. Paroxysmal atrial fibrillation -monitor demonstrates atrial fibrillation with slow ventricular response -monitor on telemetry -avoid selena agents -hold Eliquis at this time secondary to hematuria 4. Diabetes type 2 -well controlled per patient -cover with sliding scale 5.Hypertension -acceptable control on current therapies -adjust as indicated Pneumatics Full Code Will require at least 2 midnights of inpatient stay for volume repletion and monitor of renal function. Will also need evaluation of hematuria. This cannot be achieved a lesser acute setting Time Spent With Patient Time: Total time managing care of this patient today ____ minutes. Quality Stroke Does the patient have a stroke diagnosis?: No VTE Prior VTE?: No VTE Risk Level:: Medical - moderate - high VTE Device Contraindication: Treatment Not Indicated VTE Drug Contraindication: N/A - Med Ordered
[2022-09-24] MEDS: Sodium Bicarbonate 650 MG TABLET PO ×2 (17:10→23:11)
--- NOTE | 2022-09-24 20:28 | PC.NURSE ---
RN to RN report given to ZACARIAS Mckay. Pt being transferred to room 444 and aware of plan of care.
[2022-09-24] MEDS: Pravastatin Sodium 20 MG TABLET PO (23:11)
[2022-09-24 23:13] LABS: Glucose, Whole Blood 106 mg/dL (60-115)
[2022-09-25] VITALS: BP 131/63; PULSE 80; RESP 18; TEMP 36.2; O2SAT 98
[2022-09-25 03:40] VITALS: BP 125/62; PULSE 70; RESP 18; TEMP 36.6; O2SAT 98
[2022-09-25 06:16] LABS: MANUAL DIFF FLAG NO
[2022-09-25 06:20] LABS: Basophils Percent Auto 0.6 % (0-2); Hematocrit 25.5 % (42.0-52.0); Hemoglobin 8.2 g/dl (14.0-18.0); Imm Gran Abs Auto 0.01 X10*3/uL (0.00-0.03); Imm Gran Pct Auto 0.3 % (0.0-0.4); Lymphocytes Absolute Auto 0.5 X10*3/uL (1.2-4.9); Lymphocytes Percent Auto 17.1 % (20-40); Mean Corpuscular HGB Conc 32.2 g/dl (31.0-36.0); Mean Corpuscular Hemoglobin 32.8 pg (27.0-33.0); Mean Platelet Volume 9.6 fL (9.4-12.4); Monocytes Absolute Auto 0.3 X10*3/uL (0.1-1.2); Monocytes Percent Auto 9.8 % (2-11); Neutrophils Absolute Auto 2.3 x10*3/uL (2.0-8.3); Neutrophils Percent Auto 72.2 % (45-73); Red Cell Distribution Width 17.2 % (11.0-16.0); White Blood Count 3.2 X10*3/uL (4.8-10.8)
[2022-09-25 06:21] LABS: Platelet Count 85 X10*3/uL (160-400)
[2022-09-25 06:49] LABS: Alanine Aminotransferase 13 U/L (0-40); Albumin Level 3.4 g/dL (3.5-5.0); Alkaline Phosphatase 145 U/L (39-117); Anion Gap 17 (12-20); Aspartate Amino Transferase 14 U/L (5-37); Bilirubin Total 0.7 mg/dL (0.0-1.0); Blood Urea Nitrogen 96 mg/dL (9-16); Calcium 8.5 mg/dL (8.4-10.2); Carbon Dioxide 18 mmol/L (22-29); Chloride 113 mmol/L (96-108); Creatinine Clr Calc Pharmacy 19.6; Estimated Glomerular Filt Rate 13; Glucose Random 72 mg/dL (60-115); Potassium 5.1 mmol/L (3.3-5.1); Sodium 143 mmol/L (135-145); Total Protein 6.1 g/dL (6.5-8.0)
--- NOTE | 2022-09-25 07:00 | CA_ITS ---
Transthoracic Echocardiogram Patient (Last, First, Middle): Kael Meyer J Gender: Male Date of : 1955 Age: 67 Procedure Date: 09/25/2022 Procedure Type: Transthoracic Echocardiogram [place] [facility] [place]: 180.34 cm Weight: 118.39 kg BSA: 2.36 m2 Heart Rate: bpm BP: 131 / 53 mmHg Banquet Line Cook: GABBY Referring MD: Hero Santos DO Family Welfare Social Work Professor: See Mcghee MD Symptoms: AFib Study Quality: Fair ECG Rhythm: Sinus Conclusions: - 1. Low normal LV systolic function with mild LVH with at least grade 2 diastolic dysfunction 2. At least moderate left atrial enlargement 3. Early mild aortic stenosis and mild mitral regurgitation 4. Severely elevated right systolic pressure with significantly elevated right atrial pressures 5. No gross pericardial effusion Findings Left Ventricle Normal left ventricular cavity size. There is mildly increased left ventricular wall thickness. The left ventricular systolic function is low normal. The visually estimated ejection fraction is between 50-55%. Spectral Doppler is indicative of a pseudonormal filling pattern. E/E prime ratio is >15, consistent with elevated filling pressures. Evidence suggests grade II (moderate) diastolic dysfunction. Wall Motion Rest Echo Findings The basal inferior and apical septum segments are hypokinetic. All other scored wall segments showed normal motion. Right Ventricle Mildly increased right ventricular cavity size. There is normal right ventricular systolic function. Atria The left atrium is moderately dilated. Interatrial shunt cannot be excluded. The right atrium is moderately dilated. Aortic Valve There is mild calcification of the aortic valve. The peak aortic gradient is 15 mmHg.The mean gradient is 9 mmHg. There is no aortic valve regurgitation. Mitral Valve The mitral valve appears normal. There is mild anterior and posterior mitral leaflet thickening. There is mild mitral annular calcification. There is mild mitral valve regurgitation. There is no mitral valve stenosis. Pulmonic Valve The pulmonic valve is likely normal. There is trace pulmonic valve regurgitation. Tricuspid Valve Normal tricuspid valve structure. There is mild to moderate tricuspid valve regurgitation. Significantly elevated right atrial pressure. Severe pulmonary hypertension is present. Great Vessels All visible segments of the aorta are normal in size. The pulmonary artery was not well visualized. Venous The inferior vena cava is severely dilated and does not collapse with inspiration. Pericardium/Pleural There is no evidence of pericardial effusion. Prior Study Comparison Changes noted compared to prior study dated: 05/21/2021. LV systolic function is at low end of normal Measurements 2D Linear Measurements IVSd: 1.29 0.6-0.9/0.6-1.0 cm LVIDd: 5.66 3.9-5.3/4.2-5.9 cm LVIDd Index: 2.40 2.4-3.2/2.2-3.1 cm/m2 LVIDs: 4.22 2.0-3.6 cm LVPWd: 1.28 0.7-1.1 cm LA Diam: 4.90 2.7-3.8/3.0-4.0 cm LAIDs Index: 2.08 1.5-2.3 cm/m2 LV Mass: 391.17 67-162/88-224 g LV Mass Index: 165.75 43-95/49-115 g/m2 LVOT Diam: 2.30 3.0+(-)1.3 cm 2D Systolic Function EF 4C: 56.70 >55% EF 2C: 53.20 >55% EF BiP: 53.20 >55% Mitral Valve MV Pk E: 1.34 MV Decel Time: 209.00 E'Lateral: 9.36 E'Medial: 5.77 E/E' Med: 23.20 E/E' Lat: 14.30 PHT: 61.00 MVA PHT: 3.61 Decel [place]: 6.42 Aortic Valve AoV Pk Toribio: 1.96 AoV Mn Toribio: 1.39 AoV VTI: 0.60 AoV Pk Grad: 15.00 Aov Mn Grad: 9.00 KARI Cont.VTI: 2.18 LVOT LVOT Pk Toribio: 1.01 LVOT Mn Toribio: 0.70 LVOT VTI: 0.31 LVOT Pk Grad: 4.00 LVOT Mn Grad: 2.00 LVOT Diam: 2.30 LVOT Area: 4.15 Diastolic Function MV Pk E: 1.34 E'Medial: 5.77 E/E' Med: 23.20 E' Laterial: 9.36 E/E' Lat: 14.30 Right Ventricle TAPSE (mm): 23.10 TVS' Toribio: 13.10 Tricuspid Valve TR Pk Toribio: 3.68 TR Pk Grad: 54.00 RA Press: 15.00 RVSP: 69.00 Great Vessels Aorta Sinus of Valsalva: 3.32 2.0-3.[address] [place]: 2.13 1.7-3.4 cm Ao Asc: 3.30 2.1-3.4 cm Updated in Other Vendor System with Status of Final See Mcghee MD electronically signed on 09/26/2022 11:05:13 AM with status of Final
[2022-09-25 07:03] LABS: Glucose, Whole Blood 80 mg/dL (60-115)
[2022-09-25 07:06] VITALS: BP 131/53; PULSE 50; RESP 16; TEMP 36.3; O2SAT 100
--- NOTE | 2022-09-25 07:32 | PC.NURSE ---
Pts heart rate kept dropping throughout the night the lowest being to 32. MD notified but since pt was not symptomatic and sleeping, this RN was told to continue monitoring. Respirations steady.
[2022-09-25] MEDS: Isosorbide Mononitrate 30 MG TAB.ER.24H PO (08:27)
[2022-09-25] MEDS: 0.9 % Sodium Chloride Flush 3 ML SYRINGE IVFLUSH ×2 (08:27→21:26)
[2022-09-25] MEDS: Sodium Bicarbonate 650 MG TABLET PO ×4 (08:27→21:25)
[2022-09-25] MEDS: amLODIPine Besylate 5 MG TABLET PO (08:27)
[2022-09-25] MEDS: Ferrous Sulfate 324 MG TABLET.DR PO (08:27)
[2022-09-25] MEDS: Doxazosin Mesylate 2 MG TABLET 4 MG PO (08:27)
[2022-09-25] MEDS: Losartan Potassium 50 MG TABLET 100 MG PO (08:27)
--- NOTE | 2022-09-25 08:42 | MHC.CM.PN ---
CM met with Patient at bedside and verbally addressed IMM with him (patient wanted to answer questions but presented with s/s of pain and later admitted to needing to use the urinal), providing him with the original and placing a copy on the chart. Patient lives in a house with his /HCP/Kimi and he uses a cane to assist with mobility. Patient states that he receives some home services through [facility]. Home/resume said services is the goal and CM has initiated and will follow for dc planning. Patient has received Pfizer/CovSymcat vax x3 and his PCP is Dr. Wilson Po.
--- NOTE | 2022-09-25 11:08 | PM.CNCAR ---
History of Present Illness History of Present Illness Date of Service: 09/25/22 Requesting physician: Hero Santos Consult reason: other (Bradycardia) Chief complaint: Hematuria Narrative: I was consulted to see Kael in cardiology consultation today per for slow heart rate with atrial fibrillation. Patient 67-year-old male who present hospital with hematuria with ludwin red blood. He was recently discharged from nursing home facility and 2 days later developed hematuria. He was in the nursing home facility for rehab because of recent hospitalization at [facility] with small-bowel rupture as per him undergoing surgery. He has known history of diastolic heart failure as well as atrial fibrillation slow ventricular response in the past. He is not on any rate lowering medication. He is on oral anticoagulation with Eliquis which is currently being withheld. He was noted to have atrial fibrillation slow ventricular response on the monitor in cardiology consult was sought. In the past he has had this for a long time without symptoms and pacing therapy has been deferred. He has also had Holter monitor without any significant pauses. Patient denies any cardiac complaints at current time. Review of Systems Constitutional: Constitutional: Reports lethargy Eyes: Eyes: Reports no additional eye complaints Cardiovascular: Cardiovascular: Reports no additional cardiovascular complaints Respiratory: Respiratory: Reports no additional respiratory complaints Gastrointestinal: Gastrointestinal: Reports no additional gastrointestinal complaints Genitourinary: Genitourinary: Reports hematuria Musculoskeletal: Musculoskeletal: Reports no additional musculoskeletal complaints Neurologic: Reports system reviewed and no additional complaints, except as documented PMF Past Medical History Medical History (Updated 09/25/22 @ 11:11 by See Mcghee MD) Afib Anemia BPH (benign prostatic hyperplasia) Chronic kidney disease COPD (chronic obstructive pulmonary disease) Depression, major Diabetic retinopathy Edema Essential thrombocytopenia Fistula Gout High cholesterol HTN (hypertension) Hypercholesterolemia Lumbar degenerative disc disease Lymphedema Obesity (BMI 30-39.9) Obstructive sleep apnea Osteoarthritis Paroxysmal A-fib Peripheral neuropathy Peripheral vascular disease Pulmonary hypertension Scrotal edema Type 2 diabetes mellitus with hyperglycemia Venous stasis dermatitis Family History Family History Father Prostate cancer CVD (cardiovascular disease) Mother Hemochromatosis Brother Motor vehicle accident Sister CAD (coronary artery disease) Maternal Grandfather Myocardial infarction Surgical History Surgical History H/O prior ablation treatment History of bilateral cataract extraction History of carpal tunnel release History of gastric surgery History of tonsillectomy Social History Social History Household Members: Spouse Housing: House Alcohol intake: never Patient Tobacco Use Status: Former Tobacco user e-Cigarette/Vaping Use: Never Used Second Hand Smoke Exposure: Yes Substance Use Type: Marijuana service: No Current occupational status: retired Cognitive needs: Yes Hearing needs: Yes Vision needs: Yes Meds Allergies Allergy/AdvReac Type Severity Reaction Status Date / Time No Known Allergies Allergy Verified 09/22/22 12:56 [No Known Allergies*] Active Medications: Current Medications Acetaminophen (Acetaminophen 325 Mg Tablet) 650 mg PO Q6H PRN PRN Reason: Pain, Mild (Pain Scale 1-3) Albuterol Sulfate (Albuterol Sulfate 90 Mcg 8 Gm Inhaler) 2 puff INHALE Q4H PRN PRN Reason: Shortness Of Breath Or Wheezing Amlodipine Besylate (Amlodipine Besylate 5 Mg Tablet) 5 mg PO DAILY [facility]; Protocol Last Admin: 09/25/22 08:27 Dose: 5 mg Doxazosin Mesylate (Doxazosin Mesylate 2 Mg Tablet) 4 mg PO DAILY [facility] Last Admin: 09/25/22 08:27 Dose: 4 mg Ferrous Sulfate (Ferrous Sulfate 324 Mg Tablet.Dr) 324 mg PO DAILY [facility] Last Admin: 09/25/22 08:27 Dose: 324 mg Glucose (Glucose Gel 15 Gm Gel..Gram.) 15 gm PO Q15M PRN; Protocol PRN Reason: per Hypoglycemia Standing Ord. Ceftriaxone Sodium 1 gm/ (Sodium Chloride) 50 mls @ 100 mls/hr IV Q24H [facility] Dextrose (D10) 250 mls @ 750 mls/hr IV Q15M PRN; Protocol PRN Reason: per Hypoglycemia Standing Ord. Insulin Human Lispro (Insulin Lispro 100 Unit/Ml 3 Ml Vial) 0.1 - 10 unit SUBCUT QIDACHS [facility]; Protocol Last Admin: 09/25/22 07:24 Dose: Not Given Isosorbide Mononitrate (Isosorbide Mononitrate 30 Mg Tab.Er.24h) 30 mg PO DAILY [facility]; Protocol Last Admin: 09/25/22 08:27 Dose: 30 mg Losartan Potassium (Losartan Potassium 50 Mg Tablet) 100 mg PO DAILY [facility]; Protocol Last Admin: 09/25/22 08:27 Dose: 100 mg Non-Formulary Medication (Umeclidinium-Vilanterol [Anoro Ellipta]) 1 each INHALE DAILY [facility] Ondansetron HCl (Ondansetron Hcl 4 Mg/2 Ml Vial) 4 mg IVPUSH Q8H PRN PRN Reason: Nausea and Vomiting Pharmacy Consult (Consult Rx Perform Med Rec) 1 each MISCELLANE ONCE PRN PRN Reason: Consult order Pravastatin Sodium (Pravastatin Sodium 20 Mg Tablet) 20 mg PO BEDTIME [facility] Last Admin: 09/24/22 23:11 Dose: 20 mg Sodium Bicarbonate (Sodium Bicarbonate 650 Mg Tablet) 650 mg PO QID [facility] Last Admin: 09/25/22 08:27 Dose: 650 mg Sodium Chloride (0.9 % Sodium Chloride Flush 3 Ml Syringe) 3 ml IVFLUSH QSHIFT [facility] Last Admin: 09/25/22 08:27 Dose: 3 ml Home Medications Medication Instructions Recorded Confirmed Last Taken Type calcitriol 0.5 mcg capsule 0.5 mcg PO DAILY 04/03/20 09/24/22 09/23/22 History albuterol sulfate 90 mcg/actuation 2 puff inhalation 6XD PRN 07/05/20 09/24/22 09/23/22 History aerosol inhaler (ProAir HFA) Shortness Of Breath Or Wheezing ferrous sulfate 325 mg (65 mg 325 mg PO DAILY 04/04/21 09/24/22 09/23/22 History iron) tablet sodium bicarbonate 650 mg tablet 650 mg PO QID 09/22/22 09/24/22 09/23/22 History polyethylene glycol 3350 17 gram 17 g PO DAILY PRN Constipation 09/24/22 09/24/22 Unknown History oral powder packet (Miralax) torsemide 20 mg tablet 40 mg PO BID 09/24/22 09/24/22 09/23/22 History Physical Exam Vital Signs: Vital Signs: Last Vital Signs Temp 97.4 F 09/25/22 07:06 Pulse 50 09/25/22 07:06 Resp 16 09/25/22 07:06 BP 131/53 L 09/25/22 07:06 Pulse Ox 100 09/25/22 07:06 O2 Del Method Room Air 09/25/22 07:06 BMI result Body Mass Index 36.4 Const: General: cooperative, comfortable, no acute distress, alert, awake and tired appearing Nutritional Appearance: obese Orientation/consciousness: patient oriented x3 HEENT: Head: Yes normocephalic and Yes atraumatic Neck: Neck: Yes trachea midline, Yes supple and Yes no JVD Resp: Effort & Inspection: normal respiratory effort Auscultation: clear to auscultation bilaterally Cardio: Jugular venous distension: no JVD Rate: bradycardic Rhythm: abnormal rhythm irregularly irregular Heart sounds: S1 normal heart sound present, S2 normal heart sound present, no click, no gallops and no murmurs GI: Auscultation: normal bowel sounds Skin: General skin exam: no rashes or lesions noted and ecchymosis Neuro: General: patient oriented x3 and no focal motor deficits Extrem: General: Yes no clubbing, cyanosis or edema Objective Labs and Meds 09/25/22 05:47 09/25/22 05:47 Lab results: Laboratory Results - last 24 hr 09/24/22 09/24/22 09/24/22 10:33 10:33 13:37 WBC RBC Hgb Hct MCV MCH MCHC RDW Plt Count MPV Immature Gran % (Auto) Neut % (Auto) Lymph % (Auto) [place] % (Auto) Eos % (Auto) Baso % (Auto) Lymph # (Auto) [place] # (Auto) Eos # (Auto) Baso # (Auto) Abs Immat Gran (auto) Absolute Neuts (auto) Absolute Nucleated RBC Nucleated RBC % (auto) Sodium 143 Potassium 5.0 Chloride 113 H Carbon Dioxide 18 L Anion Gap 17 BUN 106 H Creatinine 5.01 H* Estim Creat Clear Calc 17.9 Estimated GFR 12 POC Glucose Random Glucose 77 Lactic Acid Calcium 8.0 L D Magnesium 1.9 Total Bilirubin 0.8 Direct Bilirubin 0.3 AST 12 ALT 12 Alkaline Phosphatase 131 H Total Protein 5.7 L Albumin 3.2 L Lipase 47 Urine Color Urine Appearance Urine pH Ur Specific [place] Urine Protein Urine Glucose (UA) Urine Ketones Urine Blood Urine Nitrite Ur Leukocyte Esterase Urine RBC Urine WBC Ur Squamous Epith Cells Urine Bacteria Hyaline Casts Ur Random Sodium Urine Creatinine Stool Occult Blood NEGATIVE Influenza Type A (PCR) NEGATIVE Influenza Type B (PCR) NEGATIVE RSV RNA Qual (PCR) NEGATIVE SARS-CoV-2 RNA (RT-PCR) NEGATIVE Blood Type Antibody Screen 09/24/22 09/24/22 09/24/22 13:37 13:37 14:15 WBC RBC Hgb Hct MCV MCH MCHC RDW Plt Count MPV Immature Gran % (Auto) Neut % (Auto) Lymph % (Auto) [place] % (Auto) Eos % (Auto) Baso % (Auto) Lymph # (Auto) [place] # (Auto) Eos # (Auto) Baso # (Auto) Abs Immat Gran (auto) Absolute Neuts (auto) Absolute Nucleated RBC Nucleated RBC % (auto) Sodium Potassium Chloride Carbon Dioxide Anion Gap BUN Creatinine Estim Creat Clear Calc Estimated GFR POC Glucose Random Glucose Lactic Acid Calcium Magnesium Total Bilirubin Direct Bilirubin AST ALT Alkaline Phosphatase Total Protein Albumin Lipase Urine Color Dark Yellow Urine Appearance Turbid Urine pH 5.5 Ur Specific [place] 1.010 Urine Protein 100 (2+) H Urine Glucose (UA) Negative Urine Ketones Negative Urine Blood Large (3+) H Urine Nitrite Negative Ur Leukocyte Esterase Large (3+) H Urine RBC >20 H Urine WBC >50 H Ur Squamous Epith Cells 0-2 Urine Bacteria 4+ Hyaline Casts 0-2 Ur Random Sodium 64.0 Urine Creatinine 70.94 Stool Occult Blood Influenza Type A (PCR) Influenza Type B (PCR) RSV RNA Qual (PCR) SARS-CoV-2 RNA (RT-PCR) Blood Type A Negative Antibody Screen NEGATIVE 09/24/22 09/24/22 09/25/22 14:15 23:09 05:47 WBC 3.2 L RBC 2.50 L Hgb 8.2 L Hct 25.5 L MCV 102.0 H MCH 32.8 MCHC 32.2 RDW 17.2 H Plt Count 85 L MPV 9.6 Immature Gran % (Auto) 0.3 Neut % (Auto) 72.2 Lymph % (Auto) 17.1 L [place] % (Auto) 9.8 Eos % (Auto) 0.0 Baso % (Auto) 0.6 Lymph # (Auto) 0.5 L [place] # (Auto) 0.3 Eos # (Auto) 0.0 Baso # (Auto) 0.0 Abs Immat Gran (auto) 0.01 Absolute Neuts (auto) 2.3 Absolute Nucleated RBC 0.000 Nucleated RBC % (auto) 0.0 Sodium Potassium Chloride Carbon Dioxide Anion Gap BUN Creatinine Estim Creat Clear Calc Estimated GFR POC Glucose 106 Random Glucose Lactic Acid 0.7 Calcium Magnesium Total Bilirubin Direct Bilirubin AST ALT Alkaline Phosphatase Total Protein Albumin Lipase Urine Color Urine Appearance Urine pH Ur Specific [place] Urine Protein Urine Glucose (UA) Urine Ketones Urine Blood Urine Nitrite Ur Leukocyte Esterase Urine RBC Urine WBC Ur Squamous Epith Cells Urine Bacteria Hyaline Casts Ur Random Sodium Urine Creatinine Stool Occult Blood Influenza Type A (PCR) Influenza Type B (PCR) RSV RNA Qual (PCR) SARS-CoV-2 RNA (RT-PCR) Blood Type Antibody Screen 09/25/22 09/25/22 05:47 06:47 WBC RBC Hgb Hct MCV MCH MCHC RDW Plt Count MPV Immature Gran % (Auto) Neut % (Auto) Lymph % (Auto) [place] % (Auto) Eos % (Auto) Baso % (Auto) Lymph # (Auto) [place] # (Auto) Eos # (Auto) Baso # (Auto) Abs Immat Gran (auto) Absolute Neuts (auto) Absolute Nucleated RBC Nucleated RBC % (auto) Sodium 143 Potassium 5.1 Chloride 113 H Carbon Dioxide 18 L Anion Gap 17 BUN 96 H Creatinine 4.64 H* Estim Creat Clear Calc 19.6 Estimated GFR 13 POC Glucose 80 Random Glucose 72 Lactic Acid Calcium 8.5 D Magnesium Total Bilirubin 0.7 Direct Bilirubin AST 14 ALT 13 Alkaline Phosphatase 145 H Total Protein 6.1 L Albumin 3.4 L Lipase Urine Color Urine Appearance Urine pH Ur Specific [place] Urine Protein Urine Glucose (UA) Urine Ketones Urine Blood Urine Nitrite Ur Leukocyte Esterase Urine RBC Urine WBC Ur Squamous Epith Cells Urine Bacteria Hyaline Casts Ur Random Sodium Urine Creatinine Stool Occult Blood Influenza Type A (PCR) Influenza Type B (PCR) RSV RNA Qual (PCR) SARS-CoV-2 RNA (RT-PCR) Blood Type Antibody Screen no 12 lead EKG on admission Imaging Radiologist's impression: Impressions Abdomen/Pelvis CT 09/24/22 11:53 IMPRESSION: Emphysematous cystitis. Findings consistent with cirrhosis and small to moderate amount of ascites. Enlarged bilateral inguinal lymph nodes and right iliac chain lymph nodes. Fleischner guidelines were followed. Assessment and Plan (1) Afib: Status: Acute Chronic persistent atrial fibrillation with slow ventricular response which is known without any cardiac symptoms. There is no indication for pacing. Continue telemetry and if there are any significant pauses greater than 5 seconds may be indication for pacing therapy. This was discussed with him. He is currently on blood thinners due to active hematuria. This needs to be investigated thoroughly hopefully inpatient to assess for the source. Urology clearance prior to restarting oral anticoagulation therapy. (2) Diastolic heart failure: Status: Acute Prior history of diastolic heart failure. Clinically appears to be euvolemic and well compensated. Continue current therapy. Avoid sudden fluid shifts. Watch for signs or symptoms of heart failure. Continue current torsemide dose otherwise. Continue current blood pressure control. Will sign of the case. Thank you for allowing me to partake in his care Time Spent With Patient Time: Total time managing care of this patient today ____ minutes. Procedures Date of Service Date of Service: 09/25/22
[2022-09-25 11:40] LABS: Glucose, Whole Blood 137 mg/dL (60-115)
[2022-09-25 11:51] VITALS: BP 142/64; PULSE 46; RESP 20; TEMP 36.2; O2SAT 99
--- NOTE | 2022-09-25 12:02 | P.CNUR_ITS ---
History of Present Illness Consult details Consult date: 09/24/22 Narrative: Consulting complaint - emphysematous cystitis 67-year-old male Past medical history significant for diabetes, COPD, hypertension, CKD stage 4, AF on Eliquis Recent admission to [facility] last month for perforated bowel Had been discharged to long-term until Thursday At long-term had frequent catheterizations for inability to void Presents to [facility] with hematuria. Leuk esterase positive, nitrate negative on dipstick. Denies fever, chills, dysuria On imaging seen to have emphysematous cystitis along with gravity dependent air within bladder consistent with prior catheterization Recommendation Dorado catheter in antibiotics pending urine culture - preliminary Gram-negative rods Review of Systems Constitutional: Constitutional: Reports as per HPI and Reports no additional constitutional complaints Cardiovascular: Cardiovascular: Reports as per HPI and Reports no additional cardiovascular complaints Respiratory: Respiratory: Reports as per HPI and Reports no additional respiratory complaints Gastrointestinal: Gastrointestinal: Reports as per HPI and Reports no additional gastrointestinal complaints Genitourinary: Genitourinary: Reports as per HPI Musculoskeletal: Musculoskeletal: Reports no additional musculoskeletal complaints and Reports as per HPI Neurologic: Reports system reviewed and no additional complaints, except as documented and Reports as per HPI PMF Past Medical History Medical History (Updated 09/25/22 @ 12:05 by Juan Gonzalez MD) Afib Anemia BPH (benign prostatic hyperplasia) Chronic kidney disease COPD (chronic obstructive pulmonary disease) Depression, major Diabetic retinopathy Edema Essential thrombocytopenia Fistula Gout High cholesterol HTN (hypertension) Hypercholesterolemia Lumbar degenerative disc disease Lymphedema Obesity (BMI 30-39.9) Obstructive sleep apnea Osteoarthritis Paroxysmal A-fib Peripheral neuropathy Peripheral vascular disease Pulmonary hypertension Scrotal edema Type 2 diabetes mellitus with hyperglycemia Venous stasis dermatitis Family History Family History Father Prostate cancer CVD (cardiovascular disease) Mother Hemochromatosis Brother Motor vehicle accident Sister CAD (coronary artery disease) Maternal Grandfather Myocardial infarction Surgical History Surgical History H/O prior ablation treatment History of bilateral cataract extraction History of carpal tunnel release History of gastric surgery History of tonsillectomy Social History Social History Household Members: Spouse Housing: House Alcohol intake: never Patient Tobacco Use Status: Former Tobacco user e-Cigarette/Vaping Use: Never Used Second Hand Smoke Exposure: Yes Substance Use Type: Marijuana service: No Current occupational status: retired Cognitive needs: Yes Hearing needs: Yes Vision needs: Yes Meds Allergies Allergy/AdvReac Type Severity Reaction Status Date / Time No Known Allergies Allergy Verified 09/22/22 12:56 [No Known Allergies*] Active Medications: Current Medications Acetaminophen (Acetaminophen 325 Mg Tablet) 650 mg PO Q6H PRN PRN Reason: Pain, Mild (Pain Scale 1-3) Albuterol Sulfate (Albuterol Sulfate 90 Mcg 8 Gm Inhaler) 2 puff INHALE Q4H PRN PRN Reason: Shortness Of Breath Or Wheezing Amlodipine Besylate (Amlodipine Besylate 5 Mg Tablet) 5 mg PO DAILY [facility]; Protocol Last Admin: 09/25/22 08:27 Dose: 5 mg Doxazosin Mesylate (Doxazosin Mesylate 2 Mg Tablet) 4 mg PO DAILY [facility] Last Admin: 09/25/22 08:27 Dose: 4 mg Ferrous Sulfate (Ferrous Sulfate 324 Mg Tablet.Dr) 324 mg PO DAILY [facility] Last Admin: 09/25/22 08:27 Dose: 324 mg Glucose (Glucose Gel 15 Gm Gel..Gram.) 15 gm PO Q15M PRN; Protocol PRN Reason: per Hypoglycemia Standing Ord. Ceftriaxone Sodium 1 gm/ (Sodium Chloride) 50 mls @ 100 mls/hr IV Q24H [facility] Dextrose (D10) 250 mls @ 750 mls/hr IV Q15M PRN; Protocol PRN Reason: per Hypoglycemia Standing Ord. Insulin Human Lispro (Insulin Lispro 100 Unit/Ml 3 Ml Vial) 0.1 - 10 unit SUBCUT QIDACHS [facility]; Protocol Last Admin: 09/25/22 11:45 Dose: Not Given Isosorbide Mononitrate (Isosorbide Mononitrate 30 Mg Tab.Er.24h) 30 mg PO DAILY [facility]; Protocol Last Admin: 09/25/22 08:27 Dose: 30 mg Losartan Potassium (Losartan Potassium 50 Mg Tablet) 100 mg PO DAILY [facility]; Protocol Last Admin: 09/25/22 08:27 Dose: 100 mg Non-Formulary Medication (Umeclidinium-Vilanterol [Anoro Ellipta]) 1 each INHALE DAILY [facility] Ondansetron HCl (Ondansetron Hcl 4 Mg/2 Ml Vial) 4 mg IVPUSH Q8H PRN PRN Reason: Nausea and Vomiting Pharmacy Consult (Consult Rx Perform Med Rec) 1 each MISCELLANE ONCE PRN PRN Reason: Consult order Pravastatin Sodium (Pravastatin Sodium 20 Mg Tablet) 20 mg PO BEDTIME [facility] Last Admin: 09/24/22 23:11 Dose: 20 mg Sodium Bicarbonate (Sodium Bicarbonate 650 Mg Tablet) 650 mg PO QID [facility] Last Admin: 09/25/22 08:27 Dose: 650 mg Sodium Chloride (0.9 % Sodium Chloride Flush 3 Ml Syringe) 3 ml IVFLUSH QSHIFT [facility] Last Admin: 09/25/22 08:27 Dose: 3 ml Home Medications Medication Instructions Recorded Confirmed Last Taken Type calcitriol 0.5 mcg capsule 0.5 mcg PO DAILY 04/03/20 09/24/22 09/23/22 History albuterol sulfate 90 mcg/actuation 2 puff inhalation 6XD PRN 07/05/20 09/24/22 09/23/22 History aerosol inhaler (ProAir HFA) Shortness Of Breath Or Wheezing ferrous sulfate 325 mg (65 mg 325 mg PO DAILY 04/04/21 09/24/22 09/23/22 History iron) tablet sodium bicarbonate 650 mg tablet 650 mg PO QID 09/22/22 09/24/22 09/23/22 History polyethylene glycol 3350 17 gram 17 g PO DAILY PRN Constipation 09/24/22 09/24/22 Unknown History oral powder packet (Miralax) torsemide 20 mg tablet 40 mg PO BID 09/24/22 09/24/22 09/23/22 History Physical Exam Vital Signs: Vital Signs: Last Vital Signs Temp 97.1 F 09/25/22 11:51 Pulse 46 L 09/25/22 11:51 Resp 20 09/25/22 11:51 BP 142/64 H 09/25/22 11:51 Pulse Ox 99 09/25/22 11:51 O2 Del Method Room Air 09/25/22 11:51 BMI result Body Mass Index 36.4 Const: General: cooperative, healthy appearing, comfortable and no acute distress Orientation/consciousness: patient oriented x3 HEENT: Face and sinus: Yes normal facial exam Mouth: moist mucous membranes Neck: Neck: Yes normal visual inspection, Yes full ROM and Yes trachea midline Chest: Chest palpation & inspection: normal inspection of the chest Resp: Effort & Inspection: normal respiratory effort, able to speak in c omplete sentences and no respiratory distress GI: Inspection: Yes normal to inspection Back/Spine/Pelvis: Cervical Spine: normal cervical lordosis Thoracic/Lumbar Spine: thoracic and lumbar spine normal to inspection Skin: General skin exam: no rashes or lesions noted Neuro: General: patient oriented x3, tone normal and moves all extremities Extrem: General: Yes normal to inspection and Yes capillary refill normal Results Labs 09/25/22 05:47 09/25/22 05:47 Labs: Abnormal lab results 09/24/22 09/25/22 09/25/22 Range/Units 13:37 05:47 05:47 WBC 3.2 L (4.8-10.8) X10*3/uL RBC 2.50 L (4.60-5.80) X10*6/uL Hgb 8.2 L (14.0-18.0) g/dl Hct 25.5 L (42.0-52.0) % MCV 102.0 H (80.0-98.0) fL RDW 17.2 H (11.0-16.0) % Plt Count 85 L (160-400) X10*3/uL Lymph % (Auto) 17.1 L (20-40) % Lymph # (Auto) 0.5 L (1.2-4.9) X10*3/uL Chloride 113 H (96-108) mmol/L Carbon Dioxide 18 L (22-29) mmol/L BUN 96 H (9-16) mg/dL Creatinine 4.64 H* (0.5-1.4) mg/dL POC Glucose (60-115) mg/dL Alkaline Phosphatase 145 H (39-117) U/L Total Protein 6.1 L (6.5-8.0) g/dL Albumin 3.4 L (3.5-5.0) g/dL Urine Protein 100 (2+) H (Neg-Trace) mg/dL Urine Blood Large (3+) H (Negative) Ur Leukocyte Esterase Large (3+) H (Negative) Urine RBC >20 H (0-2) /HPF Urine WBC >50 H (0-5) /HPF 09/25/22 Range/Units 11:07 WBC (4.8-10.8) X10*3/uL RBC (4.60-5.80) X10*6/uL Hgb (14.0-18.0) g/dl Hct (42.0-52.0) % MCV (80.0-98.0) fL RDW (11.0-16.0) % Plt Count (160-400) X10*3/uL Lymph % (Auto) (20-40) % Lymph # (Auto) (1.2-4.9) X10*3/uL Chloride (96-108) mmol/L Carbon Dioxide (22-29) mmol/L BUN (9-16) mg/dL Creatinine (0.5-1.4) mg/dL POC Glucose 137 H (60-115) mg/dL Alkaline Phosphatase (39-117) U/L Total Protein (6.5-8.0) g/dL Albumin (3.5-5.0) g/dL Urine Protein (Neg-Trace) mg/dL Urine Blood (Negative) Ur Leukocyte Esterase (Negative) Urine RBC (0-2) /HPF Urine WBC (0-5) /HPF Short CBC 09/25/22 Range/Units 05:47 WBC 3.2 L (4.8-10.8) X10*3/uL Hgb 8.2 L (14.0-18.0) g/dl Hct 25.5 L (42.0-52.0) % Plt Count 85 L (160-400) X10*3/uL BMP 09/25/22 05:47 Sodium 143 Potassium 5.1 Chloride 113 H Carbon Dioxide 18 L BUN 96 H Creatinine 4.64 H* Calcium 8.5 D Liver Function 09/25/22 Range/Units 05:47 Total Bilirubin 0.7 (0.0-1.0) mg/dL AST 14 (5-37) U/L ALT 13 (0-40) U/L Alkaline Phosphatase 145 H (39-117) U/L Albumin 3.4 L (3.5-5.0) g/dL Urine 09/24/22 Range/Units 13:37 Urine Color Dark Yellow Urine Appearance Turbid Urine pH 5.5 (5.0-9.0) Ur Specific [place] 1.010 (1.005-1.025) Urine Protein 100 (2+) H (Neg-Trace) mg/dL Urine Glucose (UA) Negative (Negative) mg/dL All other labs normal. Assessment and Plan (1) Cystitis: Status: Acute (2) Hematuria: Status: Acute (3) Incomplete emptying of bladder due to benign prostatic hyperplasia: Status: Acute Plan Dorado catheter Prostate medications Antibiotics pending urine culture confirmation Time Spent With Patient Time: Total time managing care of this patient today ____ minutes. Procedures Date of Service Date of Service: 09/25/22
--- NOTE | 2022-09-25 12:57 | P.PNIM_ITS ---
Subjective Subjective Date of Service: 09/25/22 Interval History: No acute issues overnight. Monitor with bradycardia intermittently Review of Systems Denies chest pain Denies shortness of breath Denies nausea vomiting diarrhea Denies fever chills Physical Exam Vital Signs: Vital Signs: Last Vital Signs Temp 97.1 F 09/25/22 11:51 Pulse 46 L 09/25/22 11:51 Resp 20 09/25/22 11:51 BP 142/64 H 09/25/22 11:51 Pulse Ox 99 09/25/22 11:51 O2 Del Method Room Air 09/25/22 11:51 BMI result Body Mass Index 36.4 Const: Other: Awake alert oriented x3 no acute distress Resp: Other: Clear to auscultation bilaterally no rales rhonchi or wheezes Cardio: Other: No S4; positive S1-S2; no S3 murmurs rubs or gallops. Irregularly irregular GI: Other: Soft nontender nondistended normoactive bowel sounds Extrem: Other: Chronic venous stasis changes bilateral lower extremity Objective Data Active Medications Acetaminophen (Acetaminophen 325 Mg Tablet) 650 mg PO Q6H PRN PRN Reason: Pain, Mild (Pain Scale 1-3) Albuterol Sulfate (Albuterol Sulfate 90 Mcg 8 Gm Inhaler) 2 puff INHALE Q4H PRN PRN Reason: Shortness Of Breath Or Wheezing Amlodipine Besylate (Amlodipine Besylate 5 Mg Tablet) 5 mg PO DAILY [facility]; Protocol Last Admin: 09/25/22 08:27 Dose: 5 mg Documented By: AZRA Doxazosin Mesylate (Doxazosin Mesylate 2 Mg Tablet) 4 mg PO DAILY [facility] Last Admin: 09/25/22 08:27 Dose: 4 mg Documented By: AZRA Ferrous Sulfate (Ferrous Sulfate 324 Mg Tablet.Dr) 324 mg PO DAILY [facility] Last Admin: 09/25/22 08:27 Dose: 324 mg Documented By: AZRA Glucose (Glucose Gel 15 Gm Gel..Gram.) 15 gm PO Q15M PRN; Protocol PRN Reason: per Hypoglycemia Standing Ord. Ceftriaxone Sodium 1 gm/ (Sodium Chloride) 50 mls @ 100 mls/hr IV Q24H [facility] Dextrose (D10) 250 mls @ 750 mls/hr IV Q15M PRN; Protocol PRN Reason: per Hypoglycemia Standing Ord. Insulin Human Lispro (Insulin Lispro 100 Unit/Ml 3 Ml Vial) 0.1 - 10 unit SUBCUT QIDACHS [facility]; Protocol Last Admin: 09/25/22 11:45 Dose: Not Given Documented By: IKE Non-Admin Reason: No Insulin Coverage Isosorbide Mononitrate (Isosorbide Mononitrate 30 Mg Tab.Er.24h) 30 mg PO DAILY [facility]; Protocol Last Admin: 09/25/22 08:27 Dose: 30 mg Documented By: AZRA Losartan Potassium (Losartan Potassium 50 Mg Tablet) 100 mg PO DAILY [facility]; Protocol Last Admin: 09/25/22 08:27 Dose: 100 mg Documented By: AZRA Non-Formulary Medication (Umeclidinium-Vilanterol [Anoro Ellipta]) 1 each INHALE DAILY [facility] Ondansetron HCl (Ondansetron Hcl 4 Mg/2 Ml Vial) 4 mg IVPUSH Q8H PRN PRN Reason: Nausea and Vomiting Pharmacy Consult (Consult Rx Perform Med Rec) 1 each MISCELLANE ONCE PRN PRN Reason: Consult order Pravastatin Sodium (Pravastatin Sodium 20 Mg Tablet) 20 mg PO BEDTIME [facility] Last Admin: 09/24/22 23:11 Dose: 20 mg Documented By: KAYLEEN Sodium Bicarbonate (Sodium Bicarbonate 650 Mg Tablet) 650 mg PO QID [facility] Last Admin: 09/25/22 08:27 Dose: 650 mg Documented By: AZRA Sodium Chloride (0.9 % Sodium Chloride Flush 3 Ml Syringe) 3 ml IVFLUSH QSHIFT [facility] Last Admin: 09/25/22 08:27 Dose: 3 ml Documented By: AZRA Labs 09/25/22 05:47 09/25/22 05:47 Labs: Laboratory Results - last 24 hr 09/24/22 09/24/22 09/24/22 13:37 13:37 13:37 MCV MCH MCHC RDW Plt Count MPV Immature Gran % (Auto) Neut % (Auto) Lymph % (Auto) Edgar % (Auto) Eos % (Auto) Baso % (Auto) Lymph # (Auto) Edgar # (Auto) Eos # (Auto) Baso # (Auto) Abs Immat Gran (auto) Absolute Neuts (auto) Absolute Nucleated RBC Nucleated RBC % (auto) Anion Gap Estim Creat Clear Calc Estimated GFR POC Glucose Random Glucose Lactic Acid Calcium Total Bilirubin AST ALT Alkaline Phosphatase Total Protein Albumin Urine Color Dark Yellow Urine Appearance Turbid Urine pH 5.5 Ur Specific [place] 1.010 Urine Protein 100 (2+) H Urine Glucose (UA) Negative Urine Ketones Negative Urine Blood Large (3+) H Urine Nitrite Negative Ur Leukocyte Esterase Large (3+) H Urine RBC >20 H Urine WBC >50 H Ur Squamous Epith Cells 0-2 Urine Bacteria 4+ Hyaline Casts 0-2 Ur Random Sodium 64.0 Urine Creatinine 70.94 Stool Occult Blood NEGATIVE Blood Type Antibody Screen 09/24/22 09/24/22 09/24/22 14:15 14:15 23:09 MCV MCH MCHC RDW Plt Count MPV Immature Gran % (Auto) Neut % (Auto) Lymph % (Auto) Edgar % (Auto) Eos % (Auto) Baso % (Auto) Lymph # (Auto) Edgar # (Auto) Eos # (Auto) Baso # (Auto) Abs Immat Gran (auto) Absolute Neuts (auto) Absolute Nucleated RBC Nucleated RBC % (auto) Anion Gap Estim Creat Clear Calc Estimated GFR POC Glucose 106 Random Glucose Lactic Acid 0.7 Calcium Total Bilirubin AST ALT Alkaline Phosphatase Total Protein Albumin Urine Color Urine Appearance Urine pH Ur Specific [place] Urine Protein Urine Glucose (UA) Urine Ketones Urine Blood Urine Nitrite Ur Leukocyte Esterase Urine RBC Urine WBC Ur Squamous Epith Cells Urine Bacteria Hyaline Casts Ur Random Sodium Urine Creatinine Stool Occult Blood Blood Type A Negative Antibody Screen NEGATIVE 09/25/22 09/25/22 09/25/22 05:47 05:47 06:47 MCV 102.0 H MCH 32.8 MCHC 32.2 RDW 17.2 H Plt Count 85 L MPV 9.6 Immature Gran % (Auto) 0.3 Neut % (Auto) 72.2 Lymph % (Auto) 17.1 L Edgar % (Auto) 9.8 Eos % (Auto) 0.0 Baso % (Auto) 0.6 Lymph # (Auto) 0.5 L Edgar # (Auto) 0.3 Eos # (Auto) 0.0 Baso # (Auto) 0.0 Abs Immat Gran (auto) 0.01 Absolute Neuts (auto) 2.3 Absolute Nucleated RBC 0.000 Nucleated RBC % (auto) 0.0 Anion Gap 17 Estim Creat Clear Calc 19.6 Estimated GFR 13 POC Glucose 80 Random Glucose 72 Lactic Acid Calcium 8.5 D Total Bilirubin 0.7 AST 14 ALT 13 Alkaline Phosphatase 145 H Total Protein 6.1 L Albumin 3.4 L Urine Color Urine Appearance Urine pH Ur Specific [place] Urine Protein Urine Glucose (UA) Urine Ketones Urine Blood Urine Nitrite Ur Leukocyte Esterase Urine RBC Urine WBC Ur Squamous Epith Cells Urine Bacteria Hyaline Casts Ur Random Sodium Urine Creatinine Stool Occult Blood Blood Type Antibody Screen 09/25/22 11:07 MCV MCH MCHC RDW Plt Count MPV Immature Gran % (Auto) Neut % (Auto) Lymph % (Auto) Edgar % (Auto) Eos % (Auto) Baso % (Auto) Lymph # (Auto) Edgar # (Auto) Eos # (Auto) Baso # (Auto) Abs Immat Gran (auto) Absolute Neuts (auto) Absolute Nucleated RBC Nucleated RBC % (auto) Anion Gap Estim Creat Clear Calc Estimated GFR POC Glucose 137 H Random Glucose Lactic Acid Calcium Total Bilirubin AST ALT Alkaline Phosphatase Total Protein Albumin Urine Color Urine Appearance Urine pH Ur Specific [place] Urine Protein Urine Glucose (UA) Urine Ketones Urine Blood Urine Nitrite Ur Leukocyte Esterase Urine RBC Urine WBC Ur Squamous Epith Cells Urine Bacteria Hyaline Casts Ur Random Sodium Urine Creatinine Stool Occult Blood Blood Type Antibody Screen Microbiology Microbiology Results: Microbiology 09/24/22 14:03 Urine Culture - Preliminary Urine clean catch - Urine keys top Gram negative west Assessment and Plan (1) Hematuria: Status: Acute (2) Acute kidney injury superimposed on chronic kidney disease: Status: Acute (3) Afib: Status: Acute (4) Type 2 diabetes mellitus with hyperglycemia: Status: Acute Plan 67-year-old male presents emergency room today with a complaint of gross hematuria. 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 Found to have acute kidney injury in backdrop of chronic kidney disease. Patient recently admitted to [facility] secondary to abdominal pain; CT abdomen revealed a moderate volume pneumoperitoneum concerning for bowel perforation general surgery was consulted he was taken to the or emergent urgently for an ex lap with primary repair of the duodenal perforation with Amrit patch repair with PAUL drain placement.? He was admitted to the surgical ICU for blood pressure support and renal was consulted for an acute on chronic kidney failure.? Patient has never required hemodialysis.? He was weaned off pressors and transferred out of the ICU on 08/18.? Postoperative day 5 PAUL drain was noticed to have increased bloody output and was sent for IR for evaluation.? He had an upper GI study on 08/21 revealing no evidence of leak. 1. Hematuria (in backdrop of emphysematous cystitis) -empirically cover with ceftriaxone... Await culture -consult urology -strict I&Os 2. Acute kidney injury superimposed on chronic kidney disease -clinically volume depleted. Received 3 L fluid bolus in ER -follow renals/divalents -nephrology consult in a.m. -check echo to demonstrate forward flow 3. Paroxysmal atrial fibrillation -monitor demonstrates atrial fibrillation with slow ventricular response -monitor on telemetry -avoid selena agents -hold Eliquis at this time secondary to hematuria 4. Diabetes type 2 -well controlled per patient -cover with sliding scale 5.Hypertension -acceptable control on current therapies -adjust as indicated Pneumatics Full Code Will require at least 2 midnights of inpatient stay for volume repletion and monitor of renal function. Will also need evaluation of hematuria. This cannot be achieved a lesser acute setting Time Spent With Patient Time: Total time managing care of this patient today ____ minutes. Quality Stroke Does the patient have a stroke diagnosis?: No VTE Prior VTE?: No VTE Risk Level:: Medical - moderate - high VTE Device Contraindication: Treatment Not Indicated VTE Drug Contraindication: N/A - Med Ordered
[2022-09-25] MEDS: cefTRIAXone sodium 1 GM in 0.9 % Sodium Chloride 50 ML IV (15:12)
[2022-09-25 15:49] VITALS: BP 120/59; PULSE 46; RESP 14; TEMP 36.1; O2SAT 99
--- NOTE | 2022-09-25 15:54 | P.CONNP_ITS ---
History of Present Illness Reason for Consult Consult date: 09/25/22 Chief Complaint Chief complaint: Hematuria History of Present Illness Narrative: 67-year-old male, with CKD stage 4 presented to emergency department with complaints of blood in urine since day before yesterday.? Patient denies any dysuria, urinary frequency or urinary urgency.? Denies any recent trauma to his groin.? Patient does report that 3 weeks ago he had a perforated bowel which required surgical repair.? He was admitted to [facility] for several days and was [facility] a [facility] which he was discharged from on Thursday.? He reports that he had frequent catheterizations at that time.? He denies history of hematuria in the past.? Denies any fevers or chills, dizziness, weakness, abdominal pain, nausea or vomiting.? He is unsure if he has had diarrhea, unable to report bloody or black stool.? No other complaints or concerns at this time.? Recent creatinine 09/07/2022 was 3.6 at [facility] which was 5.01 at this presentation. Nephrology has been consulted to assist in his clinical care during his current hospital stay Review of Systems Review of Systems Yes all other systems are reviewed and are negative [facility] Past Medical History Medical History (Updated 09/25/22 @ 12:05 by Juan Gonzalez MD) Afib Anemia BPH (benign prostatic hyperplasia) Chronic kidney disease COPD (chronic obstructive pulmonary disease) Depression, major Diabetic retinopathy Edema Essential thrombocytopenia Fistula Gout High cholesterol HTN (hypertension) Hypercholesterolemia Lumbar degenerative disc disease Lymphedema Obesity (BMI 30-39.9) Obstructive sleep apnea Osteoarthritis Paroxysmal A-fib Peripheral neuropathy Peripheral vascular disease Pulmonary hypertension Scrotal edema Type 2 diabetes mellitus with hyperglycemia Venous stasis dermatitis Family History Family History Father Prostate cancer CVD (cardiovascular disease) Mother Hemochromatosis Brother Motor vehicle accident Sister CAD (coronary artery disease) Maternal Grandfather Myocardial infarction Surgical History Surgical History H/O prior ablation treatment History of bilateral cataract extraction History of carpal tunnel release History of gastric surgery History of tonsillectomy Social History Social History Household Members: Spouse Housing: House Alcohol intake: never Patient Tobacco Use Status: Former Tobacco user e-Cigarette/Vaping Use: Never Used Second Hand Smoke Exposure: Yes Substance Use Type: Marijuana service: No Current occupational status: retired Cognitive needs: Yes Hearing needs: Yes Vision needs: Yes Meds Allergies Allergy/AdvReac Type Severity Reaction Status Date / Time No Known Allergies Allergy Verified 09/22/22 12:56 [No Known Allergies*] Active Medications: Current Medications Acetaminophen (Acetaminophen 325 Mg Tablet) 650 mg PO Q6H PRN PRN Reason: Pain, Mild (Pain Scale 1-3) Albuterol Sulfate (Albuterol Sulfate 90 Mcg 8 Gm Inhaler) 2 puff INHALE Q4H PRN PRN Reason: Shortness Of Breath Or Wheezing Amlodipine Besylate (Amlodipine Besylate 5 Mg Tablet) 5 mg PO DAILY [facility]; Protocol Last Admin: 09/25/22 08:27 Dose: 5 mg Doxazosin Mesylate (Doxazosin Mesylate 2 Mg Tablet) 4 mg PO DAILY [facility] Last Admin: 09/25/22 08:27 Dose: 4 mg Ferrous Sulfate (Ferrous Sulfate 324 Mg Tablet.Dr) 324 mg PO DAILY [facility] Last Admin: 09/25/22 08:27 Dose: 324 mg Glucose (Glucose Gel 15 Gm Gel..Gram.) 15 gm PO Q15M PRN; Protocol PRN Reason: per Hypoglycemia Standing Ord. Ceftriaxone Sodium 1 gm/ (Sodium Chloride) 50 mls @ 100 mls/hr IV Q24H [facility] Last Infusion: 09/25/22 15:46 Dose: Infused Dextrose (D10) 250 mls @ 750 mls/hr IV Q15M PRN; Protocol PRN Reason: per Hypoglycemia Standing Ord. Insulin Human Lispro (Insulin Lispro 100 Unit/Ml 3 Ml Vial) 0.1 - 10 unit SUBCUT QIDACHS [facility]; Protocol Last Admin: 09/25/22 11:45 Dose: Not Given Isosorbide Mononitrate (Isosorbide Mononitrate 30 Mg Tab.Er.24h) 30 mg PO DAILY [facility]; Protocol Last Admin: 09/25/22 08:27 Dose: 30 mg Losartan Potassium (Losartan Potassium 50 Mg Tablet) 100 mg PO DAILY [facility]; Protocol Last Admin: 09/25/22 08:27 Dose: 100 mg Non-Formulary Medication (Umeclidinium-Vilanterol [Anoro Ellipta]) 1 each INHALE DAILY [facility] Ondansetron HCl (Ondansetron Hcl 4 Mg/2 Ml Vial) 4 mg IVPUSH Q8H PRN PRN Reason: Nausea and Vomiting Pharmacy Consult (Consult Rx Perform Med Rec) 1 each MISCELLANE ONCE PRN PRN Reason: Consult order Pravastatin Sodium (Pravastatin Sodium 20 Mg Tablet) 20 mg PO BEDTIME [facility] Last Admin: 09/24/22 23:11 Dose: 20 mg Sodium Bicarbonate (Sodium Bicarbonate 650 Mg Tablet) 650 mg PO QID [facility] Last Admin: 09/25/22 12:57 Dose: 650 mg Sodium Chloride (0.9 % Sodium Chloride Flush 3 Ml Syringe) 3 ml IVFLUSH QSHIFT [facility] Last Admin: 09/25/22 15:13 Dose: Not Given Home Medications Medication Instructions Recorded Confirmed Last Taken Type calcitriol 0.5 mcg capsule 0.5 mcg PO DAILY 04/03/20 09/24/22 09/23/22 History albuterol sulfate 90 mcg/actuation 2 puff inhalation 6XD PRN 07/05/20 09/24/22 09/23/22 History aerosol inhaler (ProAir HFA) Shortness Of Breath Or Wheezing ferrous sulfate 325 mg (65 mg 325 mg PO DAILY 04/04/21 09/24/22 09/23/22 History iron) tablet sodium bicarbonate 650 mg tablet 650 mg PO QID 09/22/22 09/24/22 09/23/22 History polyethylene glycol 3350 17 gram 17 g PO DAILY PRN Constipation 09/24/22 09/24/22 Unknown History oral powder packet (Miralax) torsemide 20 mg tablet 40 mg PO BID 09/24/22 09/24/22 09/23/22 History Physical Exam Vital Signs: Last Vital Signs Temp 97.0 F 09/25/22 15:49 Pulse 46 L 09/25/22 15:49 Resp 14 09/25/22 15:49 BP 120/59 L 09/25/22 15:49 Pulse Ox 99 09/25/22 15:49 O2 Del Method Room Air 09/25/22 15:49 BMI result Body Mass Index 36.4 Const General: no acute distress Orientation/consciousness: patient oriented x3 Eyes EOM: EOMs intact bilaterally Neck Neck: Yes supple Resp Auscultation: diminished lung sounds Cardio Rhythm: regular rhythm GI Palpation (GI): Soft to palpation Neuro General: patient oriented x3 and moves all extremities Results Lab Results 09/25/22 05:47 09/25/22 05:47 Lab results: Chemistry 09/24/22 09/25/22 10:33 05:47 Sodium 143 143 Potassium 5.0 5.1 Carbon Dioxide 18 L 18 L BUN 106 H 96 H Creatinine 5.01 H* 4.64 H* Calcium 8.0 L D 8.5 D Hematology 09/24/22 09/25/22 10:33 05:47 WBC 2.6 L 3.2 L Hgb 7.3 L D 8.2 L Plt Count 77 L 85 L Urinalysis 09/24/22 13:37 Urine Color Dark Yellow Urine Appearance Turbid Urine pH 5.5 Ur Specific [place] 1.010 Urine Protein 100 (2+) H Urine Glucose (UA) Negative Urine Ketones Negative Urine Blood Large (3+) H Urine Nitrite Negative Ur Leukocyte Esterase Large (3+) H Urine RBC >20 H Urine WBC >50 H Ur Squamous Epith Cells 0-2 Hyaline Casts 0-2 Urine Studies 09/24/22 13:37 Urine Creatinine 70.94 Assessment and Plan (1) Acute kidney injury superimposed on chronic kidney disease: Status: Acute Time Spent With Patient Time: Acute Kidney Injury due to tubular injury Has advanced CKD at baseline Had been on losartan which has been on hold Urine output OK; No reason to suspect GN/AIN Renal function better with supportive management No indication for renal replacement therapy Labs AM; Shall closely follow along Procedures Date of Service Date of Service: 09/25/22
[2022-09-25 16:30] LABS: Glucose, Whole Blood 111 mg/dL (60-115)
[2022-09-25 19:22] VITALS: BP 143/65; PULSE 50; RESP 18; TEMP 36.3; O2SAT 99
[2022-09-25 20:46] LABS: Glucose, Whole Blood 104 mg/dL (60-115)
[2022-09-25] MEDS: Pravastatin Sodium 20 MG TABLET PO (21:25)
[2022-09-25 23:55] LABS: Magnesium 1.7 mg/dL (1.6-2.6)
[2022-09-26] VITALS (8 sets, daily range): BP systolic 122–138; BP diastolic 54–69; PULSE 43–83; RESP 16–20; TEMP 36.4–37; O2SAT 96–99
--- NOTE | 2022-09-26 | ECG_ITS ---
Test Reason : bradycardia Blood Pressure : / mmHG Vent. Rate : 086 BPM Atrial Rate : 064 BPM P-R Int : 000 ms QRS Dur : 132 ms QT Int : 492 ms P-R-T Axes : 000 -10 266 degrees QTc Int : 588 ms Undetermined rhythm Right bundle branch block ST elevation consider lateral injury or acute infarct ACUTE AK / STEMI Abnormal ECG When compared with ECG of 17-APR-2020 20:26, Current undetermined rhythm precludes rhythm comparison, needs review QRS voltage has decreased T wave inversion now evident in Inferior leads QT has lengthened Referred By: Roldan Zaragoza Electronically Signed By:
[2022-09-26] MEDS: Magnesium Sulfate/H2O 2 GM/50 ML PIGGYBACK IV (00:35)
[2022-09-26 06:03] LABS: MANUAL DIFF FLAG NO
[2022-09-26 06:07] LABS: Basophils Percent Auto 1.1 % (0-2); Hemoglobin 7.6 g/dl (14.0-18.0); Imm Gran Abs Auto 0.01 X10*3/uL (0.00-0.03); Imm Gran Pct Auto 0.4 % (0.0-0.4); Lymphocytes Absolute Auto 0.5 X10*3/uL (1.2-4.9); Lymphocytes Percent Auto 19.2 % (20-40); Mean Corpuscular HGB Conc 31.7 g/dl (31.0-36.0); Mean Corpuscular Hemoglobin 31.8 pg (27.0-33.0); Mean Corpuscular Volume 100.4 fL (80.0-98.0); Mean Platelet Volume 9.7 fL (9.4-12.4); Monocytes Absolute Auto 0.4 X10*3/uL (0.1-1.2); Monocytes Percent Auto 13.4 % (2-11); Neutrophils Absolute Auto 1.8 x10*3/uL (2.0-8.3); Neutrophils Percent Auto 65.9 % (45-73); Red Blood Count 2.39 X10*6/uL (4.60-5.80); Red Cell Distribution Width 17.2 % (11.0-16.0); White Blood Count 2.8 X10*3/uL (4.8-10.8)
[2022-09-26 06:11] LABS: Platelet Count 76 X10*3/uL (160-400)
[2022-09-26 06:25] LABS: Alanine Aminotransferase 12 U/L (0-40); Albumin Level 3.1 g/dL (3.5-5.0); Alkaline Phosphatase 134 U/L (39-117); Anion Gap 18 (12-20); Aspartate Amino Transferase 12 U/L (5-37); Bilirubin Total 0.6 mg/dL (0.0-1.0); Blood Urea Nitrogen 100 mg/dL (9-16); Calcium 8.2 mg/dL (8.4-10.2); Carbon Dioxide 16 mmol/L (22-29); Chloride 114 mmol/L (96-108); Creatinine Clr Calc Pharmacy 18.7; Estimated Glomerular Filt Rate 12; Glucose Random 75 mg/dL (60-115); Potassium 5.2 mmol/L (3.3-5.1); Sodium 143 mmol/L (135-145); Total Protein 5.5 g/dL (6.5-8.0)
[2022-09-26 07:39] LABS: Glucose, Whole Blood 74 mg/dL (60-115)
[2022-09-26] MEDS: amLODIPine Besylate 5 MG TABLET PO (07:59)
[2022-09-26] MEDS: Isosorbide Mononitrate 30 MG TAB.ER.24H PO (07:59)
[2022-09-26] MEDS: 0.9 % Sodium Chloride Flush 3 ML SYRINGE IVFLUSH (07:59)
[2022-09-26] MEDS: Ferrous Sulfate 324 MG TABLET.DR PO (07:59)
[2022-09-26] MEDS: Doxazosin Mesylate 2 MG TABLET 4 MG PO (08:00)
[2022-09-26] MEDS: Sodium Bicarbonate 650 MG TABLET PO ×4 (08:00→20:05)
[2022-09-26] MEDS: levoFLOXacin/D5W 500 MG/100 ML PIGGYBACK 100 MG IV (08:59)
[2022-09-26] MEDS: Sodium Bicarbonate 8.4% 100 MEQ in Dextrose 5 % 900 ML IV ×2 (08:59→20:06)
--- NOTE | 2022-09-26 10:57 | ECG_ITS ---
Test Reason : bradycardia Blood Pressure : / mmHG Vent. Rate : 054 BPM Atrial Rate : 062 BPM P-R Int : 000 ms QRS Dur : 126 ms QT Int : 456 ms P-R-T Axes : 000 -26 019 degrees QTc Int : 432 ms Junctional bradycardia with Premature ventricular complexes Right bundle branch block Abnormal ECG When compared with ECG of 26-SEP-2022 02:04, Nonspecific T wave abnormality no longer evident in Lateral leads Referred By: See Mcghee Electronically Signed By:SEE MCGHEE MD
[2022-09-26 11:15] LABS: Glucose, Whole Blood 101 mg/dL (60-115)
--- NOTE | 2022-09-26 12:05 | PM.PNCARD ---
Subjective Subjective Date of Service: 09/26/22 Principal diagnosis: Bradycardia Interval history: Patient noted of significant bradycardia with heart rate in the upper 20s. No obvious symptoms related to it. Interestingly echocardiogram shows A wave which is usually sits suggestive of atrial contractility. However EKG is not showing clear P-waves. No significant hematuria at this point in time Review of Systems Constitutional: Reports no additional constitutional complaints Cardiovascular: Reports no additional cardiovascular complaints Physical Exam Vital Signs: Last Vital Signs Temp 98.4 F 09/26/22 07:12 Pulse 69 09/26/22 07:12 Resp 16 09/26/22 07:12 BP 133/64 09/26/22 07:12 Pulse Ox 96 09/26/22 07:12 O2 Del Method Room Air 09/26/22 07:12 BMI result Body Mass Index 36.4 Const General: cooperative, comfortable, no acute distress, alert, awake and tired appearing Nutritional Appearance: obese Orientation/consciousness: patient oriented x3 Neck Neck: Yes trachea midline, Yes supple and Yes no JVD Resp Effort & Inspection: normal respiratory effort Auscultation: clear to auscultation bilaterally Cardio Jugular venous distension: no JVD Rate: bradycardic Rhythm: abnormal rhythm irregularly irregular Heart sounds: S1 normal heart sound present, S2 normal heart sound present, no click, no gallops and no murmurs GI Auscultation: normal bowel sounds Skin General skin exam: no rashes or lesions noted and ecchymosis Neuro General: patient oriented x3 and no focal motor deficits Extrem General: Yes no clubbing, cyanosis or edema Objective Labs and Meds 09/26/22 05:37 09/26/22 05:37 Lab results: Laboratory Results - last 24 hr 09/25/22 09/25/22 09/25/22 16:12 20:39 23:31 WBC RBC Hgb Hct MCV MCH MCHC RDW Plt Count MPV Immature Gran % (Auto) Neut % (Auto) Lymph % (Auto) [place] % (Auto) Eos % (Auto) Baso % (Auto) Lymph # (Auto) [place] # (Auto) Eos # (Auto) Baso # (Auto) Abs Immat Gran (auto) Absolute Neuts (auto) Absolute Nucleated RBC Nucleated RBC % (auto) Sodium Potassium Chloride Carbon Dioxide Anion Gap BUN Creatinine Estim Creat Clear Calc Estimated GFR POC Glucose 111 104 Random Glucose Calcium Magnesium 1.7 Total Bilirubin AST ALT Alkaline Phosphatase Total Protein Albumin 09/26/22 09/26/22 09/26/22 05:37 05:37 07:11 WBC 2.8 L RBC 2.39 L Hgb 7.6 L Hct 24.0 L MCV 100.4 H MCH 31.8 MCHC 31.7 RDW 17.2 H Plt Count 76 L MPV 9.7 Immature Gran % (Auto) 0.4 Neut % (Auto) 65.9 Lymph % (Auto) 19.2 L [place] % (Auto) 13.4 H Eos % (Auto) 0.0 Baso % (Auto) 1.1 Lymph # (Auto) 0.5 L [place] # (Auto) 0.4 Eos # (Auto) 0.0 Baso # (Auto) 0.0 Abs Immat Gran (auto) 0.01 Absolute Neuts (auto) 1.8 L Absolute Nucleated RBC 0.000 Nucleated RBC % (auto) 0.0 Sodium 143 Potassium 5.2 H Chloride 114 H Carbon Dioxide 16 L Anion Gap 18 BUN 100 H Creatinine 4.88 H* Estim Creat Clear Calc 18.7 Estimated GFR 12 POC Glucose 74 Random Glucose 75 Calcium 8.2 L Magnesium Total Bilirubin 0.6 AST 12 ALT 12 Alkaline Phosphatase 134 H Total Protein 5.5 L Albumin 3.1 L 09/26/22 11:07 WBC RBC Hgb Hct MCV MCH MCHC RDW Plt Count MPV Immature Gran % (Auto) Neut % (Auto) Lymph % (Auto) [place] % (Auto) Eos % (Auto) Baso % (Auto) Lymph # (Auto) [place] # (Auto) Eos # (Auto) Baso # (Auto) Abs Immat Gran (auto) Absolute Neuts (auto) Absolute Nucleated RBC Nucleated RBC % (auto) Sodium Potassium Chloride Carbon Dioxide Anion Gap BUN Creatinine Estim Creat Clear Calc Estimated GFR POC Glucose 101 Random Glucose Calcium Magnesium Total Bilirubin AST ALT Alkaline Phosphatase Total Protein Albumin Progress Note: A&P Assessment and plan (1) Bradycardia: Status: Acute Assessment and Plan: Patient with significant bradycardia, by echocardiogram appears to have preserved atrial activity although it is not apparent on the EKG. Could suggest atrial myopathy. I would attempt to place a dual-chamber pacemaker if there is atrial electrical activity noted and/or atrial pacing possible. Need for pacemaker was discussed with the patient. He understands and agrees. Risks and benefits were discussed. To be placed tomorrow by . (2) Afib: Status: Acute Assessment and Plan: Prior history of atrial fibrillation. Admitted with hematuria. Should resume oral anticoagulation therapy if there is no further concern for recurrent hematuria. In future if he has recurrent hematuria may consider Watchman device. Once pacemaker is implanted can consider rate control medications. Pacemaker will help with management of atrial fibrillation as well. Will follow with you Time Spent With Patient Time: Total time managing care of this patient today ____ minutes. Progress Note: Quality Stroke Does the patient have a stroke diagnosis?: No Procedures Date of Service Date of Service: 09/26/22
[2022-09-26] MEDS: ceFAZolin Sodium/Dextrose,Iso 2 GM/50 ML PIGGYBACK IV (13:07)
--- NOTE | 2022-09-26 15:06 | HO.PM.IMPN ---
Subjective Subjective Date of Service: 09/26/22 Interval History: Developed a symptomatic bradycardia with heart rate in the high 20s low 30s this a.m. Review of Systems Denies chest pain Denies shortness of breath Denies nausea vomiting diarrhea Denies fever chills Physical Exam Vital Signs: Vital Signs: Last Vital Signs Temp 98.6 F 09/26/22 12:00 Pulse 83 09/26/22 12:00 Resp 16 09/26/22 12:00 BP 133/69 09/26/22 12:00 Pulse Ox 96 09/26/22 12:00 O2 Del Method Room Air 09/26/22 12:00 BMI result Body Mass Index 36.4 Const: Other: Awake alert oriented x3 no acute distress Resp: Other: Clear to auscultation bilaterally no rales rhonchi or wheezes Cardio: Other: No S4; positive S1-S2; no S3 murmurs rubs or gallops. Irregularly irregular GI: Other: Soft nontender nondistended normoactive bowel sounds Extrem: Other: Chronic venous stasis changes bilateral lower extremity Objective Data Active Medications Acetaminophen (Acetaminophen 325 Mg Tablet) 650 mg PO Q6H PRN PRN Reason: Pain, Mild (Pain Scale 1-3) Albuterol Sulfate (Albuterol Sulfate 90 Mcg 8 Gm Inhaler) 2 puff INHALE Q4H PRN PRN Reason: Shortness Of Breath Or Wheezing Amlodipine Besylate (Amlodipine Besylate 5 Mg Tablet) 5 mg PO DAILY [facility]; Protocol Last Admin: 09/26/22 07:59 Dose: 5 mg Documented By: IKE Doxazosin Mesylate (Doxazosin Mesylate 2 Mg Tablet) 4 mg PO DAILY [facility] Last Admin: 09/26/22 08:00 Dose: 4 mg Documented By: IKE Ferrous Sulfate (Ferrous Sulfate 324 Mg Tablet.Dr) 324 mg PO DAILY [facility] Last Admin: 09/26/22 07:59 Dose: 324 mg Documented By: IKE Glucose (Glucose Gel 15 Gm Gel..Gram.) 15 gm PO Q15M PRN; Protocol PRN Reason: per Hypoglycemia Standing Ord. Dextrose (D10) 250 mls @ 750 mls/hr IV Q15M PRN; Protocol PRN Reason: per Hypoglycemia Standing Ord. Sodium Bicarbonate 100 meq/ (Dextrose) 1,000 mls @ 100 mls/hr IV .Q10H [facility] Last Admin: 09/26/22 08:59 Dose: 100 mls/hr Documented By: IKE Insulin Human Lispro (Insulin Lispro 100 Unit/Ml 3 Ml Vial) 0.1 - 10 unit SUBCUT QIDACHS [facility]; Protocol Last Admin: 09/26/22 11:18 Dose: Not Given Documented By: IKE Non-Admin Reason: No Insulin Coverage Isosorbide Mononitrate (Isosorbide Mononitrate 30 Mg Tab.Er.24h) 30 mg PO DAILY [facility]; Protocol Last Admin: 09/26/22 07:59 Dose: 30 mg Documented By: IKE Ondansetron HCl (Ondansetron Hcl 4 Mg/2 Ml Vial) 4 mg IVPUSH Q8H PRN PRN Reason: Nausea and Vomiting Pharmacy Consult (Consult Rx Perform Med Rec) 1 each MISCELLANE ONCE PRN PRN Reason: Consult order Pravastatin Sodium (Pravastatin Sodium 20 Mg Tablet) 20 mg PO BEDTIME [facility] Last Admin: 09/25/22 21:25 Dose: 20 mg Documented By: SIN Salmeterol Xinafoate (Salmeterol Xinafoate 50 Mcg Blst.W.Dev) 1 puff INHALE RBID [facility] Last Admin: 09/26/22 08:00 Dose: Not Given Documented By: MARII Non-Admin Reason: Med Not Available Sodium Bicarbonate (Sodium Bicarbonate 650 Mg Tablet) 650 mg PO QID [facility] Last Admin: 09/26/22 13:06 Dose: 650 mg Documented By: IKE Sodium Chloride (0.9 % Sodium Chloride Flush 3 Ml Syringe) 3 ml IVFLUSH QSHIFT [facility] Last Admin: 09/26/22 07:59 Dose: 3 ml Documented By: IKE Tiotropium Reader (Tiotropium Reader 18 Mcg Cap.W.Dev) 1 puff INHALE RDAILY [facility] Last Admin: 09/26/22 08:01 Dose: Not Given Documented By: MARII Non-Admin Reason: Med Not Available Labs 09/26/22 05:37 09/26/22 05:37 Labs: Laboratory Results - last 24 hr 09/25/22 09/25/22 09/25/22 16:12 20:39 23:31 MCV MCH MCHC RDW Plt Count MPV Immature Gran % (Auto) Neut % (Auto) Lymph % (Auto) [place] % (Auto) Eos % (Auto) Baso % (Auto) Lymph # (Auto) [place] # (Auto) Eos # (Auto) Baso # (Auto) Abs Immat Gran (auto) Absolute Neuts (auto) Absolute Nucleated RBC Nucleated RBC % (auto) Anion Gap Estim Creat Clear Calc Estimated GFR POC Glucose 111 104 Random Glucose Calcium Magnesium 1.7 Total Bilirubin AST ALT Alkaline Phosphatase Total Protein Albumin 09/26/22 09/26/22 09/26/22 05:37 05:37 07:11 MCV 100.4 H MCH 31.8 MCHC 31.7 RDW 17.2 H Plt Count 76 L MPV 9.7 Immature Gran % (Auto) 0.4 Neut % (Auto) 65.9 Lymph % (Auto) 19.2 L [place] % (Auto) 13.4 H Eos % (Auto) 0.0 Baso % (Auto) 1.1 Lymph # (Auto) 0.5 L [place] # (Auto) 0.4 Eos # (Auto) 0.0 Baso # (Auto) 0.0 Abs Immat Gran (auto) 0.01 Absolute Neuts (auto) 1.8 L Absolute Nucleated RBC 0.000 Nucleated RBC % (auto) 0.0 Anion Gap 18 Estim Creat Clear Calc 18.7 Estimated GFR 12 POC Glucose 74 Random Glucose 75 Calcium 8.2 L Magnesium Total Bilirubin 0.6 AST 12 ALT 12 Alkaline Phosphatase 134 H Total Protein 5.5 L Albumin 3.1 L 09/26/22 11:07 MCV MCH MCHC RDW Plt Count MPV Immature Gran % (Auto) Neut % (Auto) Lymph % (Auto) [place] % (Auto) Eos % (Auto) Baso % (Auto) Lymph # (Auto) [place] # (Auto) Eos # (Auto) Baso # (Auto) Abs Immat Gran (auto) Absolute Neuts (auto) Absolute Nucleated RBC Nucleated RBC % (auto) Anion Gap Estim Creat Clear Calc Estimated GFR POC Glucose 101 Random Glucose Calcium Magnesium Total Bilirubin AST ALT Alkaline Phosphatase Total Protein Albumin Microbiology Microbiology Results: Microbiology 09/24/22 14:03 Urine Culture - Final Urine clean catch - Urine keys top Klebsiella oxytoca 09/24/22 14:25 Blood Culture - Preliminary Blood - Venous No growth after 24 hours. 09/24/22 14:15 Blood Culture - Preliminary Blood - Venous No growth after 24 hours. Assessment and Plan (1) Hematuria: Status: Acute (2) Acute kidney injury superimposed on chronic kidney disease: Status: Acute (3) Afib: Status: Acute Plan 67-year-old male presents emergency room today with a complaint of gross hematuria. 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 Found to have acute kidney injury in backdrop of chronic kidney disease. Patient recently admitted to [facility] secondary to abdominal pain; CT abdomen revealed a moderate volume pneumoperitoneum concerning for bowel perforation general surgery was consulted he was taken to the or emergent urgently for an ex lap with primary repair of the duodenal perforation with Amrit patch repair with PAUL drain placement.? He was admitted to the surgical ICU for blood pressure support and renal was consulted for an acute on chronic kidney failure.? Patient has never required hemodialysis.? He was weaned off pressors and transferred out of the ICU on 08/18.? Postoperative day 5 PAUL drain was noticed to have increased bloody output and was sent for IR for evaluation.? He had an upper GI study on 08/21 revealing no evidence of leak. 1. Hematuria (Klebsiella).. -switch to IV Levaquin -continue [place] -strict I&Os 2. Acute kidney injury superimposed on chronic kidney disease -now with significant acidosis. .. Bicarb drip started -follow renals/divalents -question impact of cardiac issues on renal function 3. Paroxysmal atrial fibrillation with slow ventricular response (asymptomatic) -for pacemaker in a.m. -monitor on telemetry -avoid selena agents -hold Eliquis at this time secondary to pacer placement 4. Diabetes type 2 -well controlled per patient -cover with sliding scale 5.Hypertension -acceptable control on current therapies -adjust as indicated Pneumatics Full Code Will require at least 2 midnights of inpatient stay for volume repletion and monitor of renal function. Will also need evaluation of hematuria. This cannot be achieved a lesser acute setting Time Spent With Patient Time: Total time managing care of this patient today ____ minutes. Quality Stroke Does the patient have a stroke diagnosis?: No VTE Prior VTE?: No VTE Risk Level:: Medical - moderate - high VTE Device Contraindication: Treatment Not Indicated VTE Drug Contraindication: N/A - Med Ordered
--- NOTE | 2022-09-26 16:08 | PM.PNNEP ---
Subjective Subjective Date of Service: 09/26/22 Principal diagnosis: Bradycardia Interval history: Developed a symptomatic bradycardia with heart rate in the high 20s low 30s this a.m. Feels ok, denies chest pain, SOB or nausea Physical Exam Vital Signs: Vital Signs: Last Vital Signs Temp 97.5 F 09/26/22 15:49 Pulse 43 L 09/26/22 15:49 Resp 18 09/26/22 15:49 BP 130/58 L 09/26/22 15:49 Pulse Ox 97 09/26/22 15:49 O2 Del Method Room Air 09/26/22 15:49 BMI result Body Mass Index 36.4 Const: Other: Awake alert oriented x3 no acute distress General: cooperative, comfortable, no acute distress, alert, awake and tired appearing Nutritional Appearance: obese Orientation/consciousness: patient oriented x3 HEENT: Head: Yes normocephalic and Yes atraumatic Face and sinus: Yes normal facial exam Mouth: moist mucous membranes Eyes: EOM: EOMs intact bilaterally Neck: Neck: Yes normal visual inspection, Yes trachea midline, Yes supple and Yes no JVD Chest: Chest palpation & inspection: normal inspection of the chest Resp: Other: Clear to auscultation bilaterally no rales rhonchi or wheezes Effort & Inspection: normal respiratory effort, able to speak in complete sentences and no respiratory distress Auscultation: clear to auscultation bilaterally and diminished lung sounds Cardio: Other: No S4; positive S1-S2; no S3 murmurs rubs or gallops. Irregularly irregular Jugular venous distension: no JVD Rate: bradycardic Rhythm: abnormal rhythm irregularly irregular Heart sounds: S1 normal heart sound present, S2 normal heart sound present, no click, no gallops and no murmurs GI: Other: Soft nontender nondistended normoactive bowel sounds Inspection: Yes normal to inspection Palpation (GI): Soft to palpation Auscultation: normal bowel sounds Back/Spine/Pelvis: Cervical Spine: normal cervical lordosis Thoracic/Lumbar Spine: thoracic and lumbar spine normal to inspection Skin: General skin exam: no rashes or lesions noted and ecchymosis Neuro: General: patient oriented x3, tone normal, moves all extremities and no focal motor deficits Extrem: Other: Chronic venous stasis changes bilateral lower extremity Objective Data Labs 09/26/22 05:37 09/26/22 05:37 Labs: Laboratory Results - last 24 hr 09/25/22 09/25/22 09/25/22 16:12 20:39 23:31 WBC RBC Hgb Hct MCV MCH MCHC RDW Plt Count MPV Immature Gran % (Auto) Neut % (Auto) Lymph % (Auto) [place] % (Auto) Eos % (Auto) Baso % (Auto) Lymph # (Auto) [place] # (Auto) Eos # (Auto) Baso # (Auto) Abs Immat Gran (auto) Absolute Neuts (auto) Absolute Nucleated RBC Nucleated RBC % (auto) Sodium Potassium Chloride Carbon Dioxide Anion Gap BUN Creatinine Estim Creat Clear Calc Estimated GFR POC Glucose 111 104 Random Glucose Calcium Magnesium 1.7 Total Bilirubin AST ALT Alkaline Phosphatase Total Protein Albumin 09/26/22 09/26/22 09/26/22 05:37 05:37 07:11 WBC 2.8 L RBC 2.39 L Hgb 7.6 L Hct 24.0 L MCV 100.4 H MCH 31.8 MCHC 31.7 RDW 17.2 H Plt Count 76 L MPV 9.7 Immature Gran % (Auto) 0.4 Neut % (Auto) 65.9 Lymph % (Auto) 19.2 L [place] % (Auto) 13.4 H Eos % (Auto) 0.0 Baso % (Auto) 1.1 Lymph # (Auto) 0.5 L [place] # (Auto) 0.4 Eos # (Auto) 0.0 Baso # (Auto) 0.0 Abs Immat Gran (auto) 0.01 Absolute Neuts (auto) 1.8 L Absolute Nucleated RBC 0.000 Nucleated RBC % (auto) 0.0 Sodium 143 Potassium 5.2 H Chloride 114 H Carbon Dioxide 16 L Anion Gap 18 BUN 100 H Creatinine 4.88 H* Estim Creat Clear Calc 18.7 Estimated GFR 12 POC Glucose 74 Random Glucose 75 Calcium 8.2 L Magnesium Total Bilirubin 0.6 AST 12 ALT 12 Alkaline Phosphatase 134 H Total Protein 5.5 L Albumin 3.1 L 09/26/22 11:07 WBC RBC Hgb Hct MCV MCH MCHC RDW Plt Count MPV Immature Gran % (Auto) Neut % (Auto) Lymph % (Auto) [place] % (Auto) Eos % (Auto) Baso % (Auto) Lymph # (Auto) [place] # (Auto) Eos # (Auto) Baso # (Auto) Abs Immat Gran (auto) Absolute Neuts (auto) Absolute Nucleated RBC Nucleated RBC % (auto) Sodium Potassium Chloride Carbon Dioxide Anion Gap BUN Creatinine Estim Creat Clear Calc Estimated GFR POC Glucose 101 Random Glucose Calcium Magnesium Total Bilirubin AST ALT Alkaline Phosphatase Total Protein Albumin Microbiology Microbiology Results: Microbiology 09/24/22 14:03 Urine clean catch - Urine keys top Urine Culture - Final Klebsiella oxytoca 09/24/22 14:25 Blood - Venous Blood Culture - Preliminary No growth after 24 hours. 09/24/22 14:15 Blood - Venous Blood Culture - Preliminary No growth after 24 hours. Procedures Date of Service Date of Service: 09/26/22 Assessment & Plan Assessment and plan (1) Acute kidney injury superimposed on chronic kidney disease: Status: Acute Assessment and Plan: CARY occurring in the setting of bradycardia; may be the cause of renal hypoperfusion; to undertake pacer placement tomorrow Prerenal CARY exacerbated by presence of raas casey and outflow issues (2) CKD (chronic kidney disease) stage 4, GFR 15-29 ml/min: Status: Acute Assessment and Plan: Carries diagnosis of SLE , cirrhosis and DM II; stage 4/5 CD (3) Hematuria: Status: Acute Assessment and Plan: ?related to traumatic garcia placement (4) Type 2 diabetes mellitus with hyperglycemia: Status: Acute (5) Metabolic acidosis: Status: Acute Assessment and Plan: Due to renal failure : both nonAG and AG Plan Pt with worsening kidney function, creaat 4.8 and BUN 100; apparently nonoliguric; hyperkalemia and metabolic acidosis Could come to require dialysis but no urgent need today To have pacer tomorrow which may improve renal perfusion; HR quite low Add sodium bicarb: 1300 bid po Low K diet Time Spent With Patient Time: Total time managing care of this patient today ____ minutes. Progress Note: Quality Stroke Does the patient have a stroke diagnosis?: No
[2022-09-26 16:27] LABS: Glucose, Whole Blood 95 mg/dL (60-115)
[2022-09-26] MEDS: Salmeterol Xinafoate 50 MCG BLST.W.DEV 1 PUFF INHALE (16:53)
[2022-09-26] MEDS: Pravastatin Sodium 20 MG TABLET PO (20:05)
[2022-09-26 20:23] LABS: Glucose, Whole Blood 95 mg/dL (60-115)
[2022-09-27] VITALS (12 sets, daily range): BP systolic 105–140; BP diastolic 50–78; PULSE 40–80; RESP 12–20; TEMP 36.3–36.8; O2SAT 95–99
[2022-09-27] MEDS: Sodium Bicarbonate 8.4% 100 MEQ in Dextrose 5 % 900 ML IV (05:49)
[2022-09-27 06:35] LABS: MANUAL DIFF FLAG NO
[2022-09-27 06:38] LABS: Basophils Percent Auto 0.7 % (0-2); Hematocrit 24.4 % (42.0-52.0); Hemoglobin 7.7 g/dl (14.0-18.0); Imm Gran Abs Auto 0.01 X10*3/uL (0.00-0.03); Imm Gran Pct Auto 0.3 % (0.0-0.4); Lymphocytes Absolute Auto 0.6 X10*3/uL (1.2-4.9); Lymphocytes Percent Auto 19.4 % (20-40); Mean Corpuscular HGB Conc 31.6 g/dl (31.0-36.0); Mean Corpuscular Hemoglobin 31.7 pg (27.0-33.0); Mean Corpuscular Volume 100.4 fL (80.0-98.0); Monocytes Absolute Auto 0.4 X10*3/uL (0.1-1.2); Neutrophils Percent Auto 66.6 % (45-73); Red Blood Count 2.43 X10*6/uL (4.60-5.80); Red Cell Distribution Width 16.9 % (11.0-16.0)
[2022-09-27 06:51] LABS: Platelet Count 72 X10*3/uL (160-400)
[2022-09-27 07:22] LABS: Alanine Aminotransferase 10 U/L (0-40); Albumin Level 2.9 g/dL (3.5-5.0); Alkaline Phosphatase 122 U/L (39-117); Anion Gap 15 (12-20); Aspartate Amino Transferase 11 U/L (5-37); Bilirubin Total 0.5 mg/dL (0.0-1.0); Blood Urea Nitrogen 95 mg/dL (9-16); Calcium 8.2 mg/dL (8.4-10.2); Carbon Dioxide 21 mmol/L (22-29); Chloride 110 mmol/L (96-108); Creatinine Clr Calc Pharmacy 19.5; Estimated Glomerular Filt Rate 12; Glucose Random 80 mg/dL (60-115); Potassium 4.8 mmol/L (3.3-5.1); Sodium 141 mmol/L (135-145); Total Protein 5.3 g/dL (6.5-8.0)
[2022-09-27 07:31] LABS: Glucose, Whole Blood 80 mg/dL (60-115)
[2022-09-27] MEDS: Salmeterol Xinafoate 50 MCG BLST.W.DEV 1 PUFF INHALE ×2 (07:43→22:42)
--- NOTE | 2022-09-27 08:05 | W.PM.CCCN ---
History of Present Illness Data of Consult Service Date: 09/27/22 Requesting physician: See Mcghee Primary Care Provider: Steve Nguyen MD HPI Reason for consult: symptomatic bradycardia 67-year-old chronically ill appearing gentleman with a history of systemic lupus with nephritis and in recently worsening progressive renal failure with current creatinine approximately 5 and what appears to be a a failed the fistula and these left upper extremity but he was a former drinker and smoker he has got elements of COPD but he also has hepatic failure with at least mild portal hypertension because he has a small amount of ascites in his abdomen my bedside echo he was in bigeminy in the peer to have a at least a moderately dysfunctional left ventricle ejection fraction may be in the mid 40s without segmental wall motion abnormality but normal left and right ventricular dimensions and no primary valve or pericardial disease he is also notably pancytopenic severely anemic with a hemoglobin approximately 770 1000 platelets he has several days now off of his Eliquis currently being treated for a a.m. cystitis with Klebsiella his rhythm is difficult to discern but he has a wide QRS escape with fairly prolonged pauses heart rates actually down into the high 20s and is affective heart rate is even less than at peak is specially when he is bigeminal with all this this there is no doubt there is a component of low-flow Review of Systems Review of Systems: Yes all other systems are reviewed and are negative [facility] Past Medical History Medical History (Updated 09/27/22 @ 15:00 by Fátima Moreau MD) Afib Anemia BPH (benign prostatic hyperplasia) Bradycardia Chronic kidney disease COPD (chronic obstructive pulmonary disease) Depression, major Diabetic retinopathy Edema Essential thrombocytopenia Fistula Gout High cholesterol HTN (hypertension) Hypercholesterolemia Lumbar degenerative disc disease Lymphedema Obesity (BMI 30-39.9) Obstructive sleep apnea Osteoarthritis Paroxysmal A-fib Peripheral neuropathy Peripheral vascular disease Pulmonary hypertension Scrotal edema Type 2 diabetes mellitus with hyperglycemia Venous stasis dermatitis Family History Family History Father Prostate cancer CVD (cardiovascular disease) Mother Hemochromatosis Brother Motor vehicle accident Sister CAD (coronary artery disease) Maternal Grandfather Myocardial infarction Surgical History Surgical History H/O prior ablation treatment History of bilateral cataract extraction History of carpal tunnel release History of gastric surgery History of tonsillectomy Social History Social History Household Members: Spouse Housing: House Alcohol intake: never Patient Tobacco Use Status: Former Tobacco user e-Cigarette/Vaping Use: Never Used Second Hand Smoke Exposure: Yes Substance Use Type: Marijuana service: No Current occupational status: retired Cognitive needs: Yes Hearing needs: Yes Vision needs: Yes Meds Allergies Allergy/AdvReac Type Severity Reaction Status Date / Time No Known Allergies Allergy Verified 09/22/22 12:56 [No Known Allergies*] Active Medications: Current Medications Acetaminophen (Acetaminophen 325 Mg Tablet) 650 mg PO Q6H PRN PRN Reason: Pain, Mild (Pain Scale 1-3) Albuterol Sulfate (Albuterol Sulfate 90 Mcg 8 Gm Inhaler) 2 puff INHALE Q4H PRN PRN Reason: Shortness Of Breath Or Wheezing Amlodipine Besylate (Amlodipine Besylate 5 Mg Tablet) 5 mg PO DAILY [facility]; Protocol Last Admin: 09/26/22 07:59 Dose: 5 mg Doxazosin Mesylate (Doxazosin Mesylate 2 Mg Tablet) 4 mg PO DAILY [facility] Last Admin: 09/26/22 08:00 Dose: 4 mg Ferrous Sulfate (Ferrous Sulfate 324 Mg Tablet.Dr) 324 mg PO DAILY [facility] Last Admin: 09/26/22 07:59 Dose: 324 mg Glucose (Glucose Gel 15 Gm Gel..Gram.) 15 gm PO Q15M PRN; Protocol PRN Reason: per Hypoglycemia Standing Ord. Dextrose (D10) 250 mls @ 750 mls/hr IV Q15M PRN; Protocol PRN Reason: per Hypoglycemia Standing Ord. Sodium Bicarbonate 100 meq/ (Dextrose) 1,000 mls @ 100 mls/hr IV .Q10H [facility] Last Admin: 09/27/22 05:49 Dose: 100 mls/hr Linezolid (Zyvox/D5w) 600 mg in 300 mls @ 300 mls/hr IV ONCE ONE Stop: 09/27/22 09:19 Insulin Human Lispro (Insulin Lispro 100 Unit/Ml 3 Ml Vial) 0.1 - 10 unit SUBCUT QIDACHS [facility]; Protocol Last Admin: 09/27/22 07:35 Dose: Not Given Isosorbide Mononitrate (Isosorbide Mononitrate 30 Mg Tab.Er.24h) 30 mg PO DAILY [facility]; Protocol Last Admin: 09/26/22 07:59 Dose: 30 mg Ondansetron HCl (Ondansetron Hcl 4 Mg/2 Ml Vial) 4 mg IVPUSH Q8H PRN PRN Reason: Nausea and Vomiting Pharmacy Consult (Consult Rx Perform Med Rec) 1 each MISCELLANE ONCE PRN PRN Reason: Consult order Pravastatin Sodium (Pravastatin Sodium 20 Mg Tablet) 20 mg PO BEDTIME [facility] Last Admin: 09/26/22 20:05 Dose: 20 mg Salmeterol Xinafoate (Salmeterol Xinafoate 50 Mcg Blst.W.Dev) 1 puff INHALE RBID [facility] Last Admin: 09/27/22 07:43 Dose: 1 puff Sodium Bicarbonate (Sodium Bicarbonate 650 Mg Tablet) 650 mg PO QID [facility] Last Admin: 09/26/22 20:05 Dose: 650 mg Sodium Chloride (0.9 % Sodium Chloride Flush 3 Ml Syringe) 3 ml IVFLUSH QSHIFT [facility] Last Admin: 09/26/22 20:08 Dose: Not Given Tiotropium [place] (Tiotropium [place] 18 Mcg Cap.W.Dev) 1 puff INHALE RDAILY [facility] Last Admin: 09/27/22 07:43 Dose: 1 puff Home Medications Medication Instructions Recorded Confirmed Last Taken Type calcitriol 0.5 mcg capsule 0.5 mcg PO DAILY 04/03/20 09/24/22 09/23/22 History albuterol sulfate 90 mcg/actuation 2 puff inhalation 6XD PRN 07/05/20 09/24/22 09/23/22 History aerosol inhaler (ProAir HFA) Shortness Of Breath Or Wheezing ferrous sulfate 325 mg (65 mg 325 mg PO DAILY 04/04/21 09/24/22 09/23/22 History iron) tablet sodium bicarbonate 650 mg tablet 650 mg PO QID 09/22/22 09/24/22 09/23/22 History polyethylene glycol 3350 17 gram 17 g PO DAILY PRN Constipation 09/24/22 09/24/22 Unknown History oral powder packet (Miralax) torsemide 20 mg tablet 40 mg PO BID 09/24/22 09/24/22 09/23/22 History Physical Exam Vital Signs: Vital Signs: Last Vital Signs Temp 98.3 F 09/27/22 07:47 Pulse 40 L 09/27/22 07:47 Resp 20 09/27/22 07:47 BP 105/60 09/27/22 07:47 Pulse Ox 98 09/27/22 07:47 O2 Del Method Room Air 09/27/22 07:47 BMI result Body Mass Index 36.4 awake and alert no focal neurologic issue no peripheral livedo or acrocyanosis abdomen soft no organomegaly bedside echo still with some some degree of reduced left ventricular systolic reserve but evidence of elevated left heart filling pressures as well lungs diminished bilateral breath sounds but no adventitious sounds Results Labs 09/27/22 06:11 09/27/22 06:11 Labs: Short CBC 09/27/22 Range/Units 06:11 WBC 3.0 L (4.8-10.8) X10*3/uL Hgb 7.7 L (14.0-18.0) g/dl Hct 24.4 L (42.0-52.0) % Plt Count 72 L (160-400) X10*3/uL BMP 09/27/22 06:11 Sodium 141 Potassium 4.8 Chloride 110 H Carbon Dioxide 21 L BUN 95 H Creatinine 4.68 H* Calcium 8.2 L Liver Function 09/27/22 Range/Units 06:11 Total Bilirubin 0.5 (0.0-1.0) mg/dL AST 11 (5-37) U/L ALT 10 (0-40) U/L Alkaline Phosphatase 122 H (39-117) U/L Albumin 2.9 L (3.5-5.0) g/dL Microbiology Microbiology Results: Microbiology 09/24/22 14:25 Blood - Venous Blood Culture - Preliminary No growth after 48 hours. 09/24/22 14:15 Blood - Venous Blood Culture - Preliminary No growth after 48 hours. 09/24/22 14:03 Urine clean catch - Urine keys top Urine Culture - Final Klebsiella oxytoca Assessment and Plan (1) Metabolic acidosis: Status: Acute (2) Symptomatic bradycardia: Status: Acute (3) CKD (chronic kidney disease) stage 4, GFR 15-29 ml/min: Status: Acute (4) Afib: Status: Acute (5) Hematuria: Status: Acute (6) Cystitis: Status: Acute (7) Acute kidney injury superimposed on chronic kidney disease: Status: Acute (8) Left leg cellulitis: Status: Acute (9) Diastolic heart failure: Status: Acute (10) Pulmonary hypertension: Status: Acute (11) SLE (systemic lupus erythematosus related syndrome): Status: Acute (12) Anasarca: Status: Acute (13) Cirrhosis: Status: Acute (14) Anemia: Status: Acute (15) Pancytopenia: Status: Acute (16) Type 2 diabetes mellitus with hyperglycemia: Qualifiers: Diabetes mellitus care home insulin use: without care home use Qualified Code(s): E11.65 - Type 2 diabetes mellitus with hyperglycemia Status: Acute (17) Chronic kidney disease: Qualifiers: Chronic kidney disease stage: stage 3 (moderate) Chronic kidney disease stage 3 subtype: stage 3b (GFR 30-44) Qualified Code(s): N18.32 - Chronic kidney disease, stage 3b Status: Acute (18) Obstructive sleep apnea: Status: Acute (19) Obesity (BMI 30-39.9): Status: Acute (20) HTN (hypertension): Qualifiers: Hypertension type: essential hypertension Qualified Code(s): I10 - Essential (primary) hypertension Status: Acute (21) COPD (chronic obstructive pulmonary disease): Qualifiers: COPD type: emphysema Emphysema type: unspecified Qualified Code(s): J43.9 - Emphysema, unspecified Status: Acute Plan the there is an equivocal component of of symptomatic bradycardia here certainly contributing to his congestive heart failure possibly even contributing acutely to his diminished creatinine clearance this remains to be seen but it the we will attempt permanent pacing at least for mormon of heart rate but hopefully if there is an organized atrial mechanism in the background we might be able to do a dual-chamber pacemaker and have the added benefit [place] [address] which is stable is adequate to proceed ease been off now for 3 days from his apixaban Time Spent With Patient Time: Total time managing care of this patient today _35___ minutes.
--- NOTE | 2022-09-27 08:06 | P.OP_ITS ---
Operative Note Operative Note Date of Service: 09/27/22 Narrative: for symptomatic bradycardia we installed and Abbot dual-chamber permanent pacemaker without complication- difficulties arose from very very significant bleeding very difficult to control I am sure that not just thrombocytopenia but probably dysfunctional platelets contributed greatly to this under fluoroscopically guidance and 1st locating axillary vein and its entry point into the subclavian venous system by ultrasound and then after sterile preparation and draping I 1st made a careful incision and dissection down to the level of prepectoral fascia securing all bleeders and gained entry into the subclavian venous system and passing retrograde with Seldinger technique 2 J tipped guidewires 5th and 1st an active fixation right ventricular lead we needed to deployed to the it to the interventricular septum deployed to screw it was well tethered 10 volts no phrenic irritation capture was 0.5 volts at 0.5 milliseconds sensing 5.7 mV there was excellent injury current and and impedance was stable at 510 Ohms so that lead was sewn and tethered to the pectoral muscle in the floor of the pocket then passing an active fixation right atrial lead with various curves because we have brief but it was difficult to find good position with good sensing and capture in that atrium when we did it lost its position on several occasions requiring is to go back in and redeployed a finally we had good injury current 1 0 volts there was no phrenic irritation we captured at 1.5 volts at 0.5 milliseconds sensing was 0.8 mV and stable lead impedance of 340 Ohms that lead was sewn and tethered to the pectoral muscle the floor of the pocket and and addend completed the pocket along the plane of the prepectoral fascia place both leads into the generator secure them and there was no change in the impedance and the leads and generator were placed in the pocket the wound closed in 3 layers patient was removed from the table without complication awake we await chest x-ray
[2022-09-27] MEDS: Linezolid/D5W 600 MG/300 ML PIGGYBACK 300 MG IV (08:33)
[2022-09-27] MEDS: Sodium Bicarbonate 650 MG TABLET PO ×3 (10:23→19:58)
--- NOTE | 2022-09-27 10:28 | PC.NURSE ---
Patient is alert and oriented to person place, time and event. Patient had a blood pressure of 105/60 morning, with patient going to surgery for pace maker this morning. Consulted Dr. Santos during morning medical rounds and verbal consent to hold morning oral medication with exception of sodium bicarb. see mar for details.
--- NOTE | 2022-09-27 10:37 | P.CONAN_ITS ---
HPI - Anesthesia Eval Consult details Narrative: Symptomatic shayy with CHF [facility] Active Problems Active Problems: All Active Problems (Updated 09/26/22 @ 16:14 by Shelley Tan MD) Metabolic acidosis (Acute) Bradycardia (Acute) CKD (chronic kidney disease) stage 4, GFR 15-29 ml/min (Acute) Incomplete emptying of bladder due to benign prostatic hyperplasia (Acute) Afib (Acute) Hematuria (Acute) Cystitis (Acute) Acute kidney injury superimposed on chronic kidney disease (Acute) Constipation (Acute) Left leg cellulitis (Acute) Chest pain (Acute) Eczema (Acute) Diastolic heart failure (Acute) Pulmonary hypertension (Acute) SLE (systemic lupus erythematosus related syndrome) (Acute) Recurrent major depression (Acute) Anasarca (Acute) Cirrhosis (Acute) Lymphedema (Acute) Skin ulcer of multiple sites of lower extremity (Acute) Anemia (Acute) Swelling of both lower extremities (Acute) GERD (gastroesophageal reflux disease) (Acute) Abdominal distension (Acute) Chronic kidney disease (Acute) Type 2 diabetes mellitus with hyperglycemia (Acute) Osteoarthritis (Acute) Obstructive sleep apnea (Acute) Obesity (BMI 30-39.9) (Acute) Hypercholesterolemia (Acute) Peripheral vascular disease (Acute) HTN (hypertension) (Acute) COPD (chronic obstructive pulmonary disease) (Acute) Gout (Acute) Past Medical History Medical History (Updated 09/26/22 @ 16:14 by Shelley Tan MD) Afib Anemia BPH (benign prostatic hyperplasia) Bradycardia Chronic kidney disease COPD (chronic obstructive pulmonary disease) Depression, major Diabetic retinopathy Edema Essential thrombocytopenia Fistula Gout High cholesterol HTN (hypertension) Hypercholesterolemia Lumbar degenerative disc disease Lymphedema Obesity (BMI 30-39.9) Obstructive sleep apnea Osteoarthritis Paroxysmal A-fib Peripheral neuropathy Peripheral vascular disease Pulmonary hypertension Scrotal edema Type 2 diabetes mellitus with hyperglycemia Venous stasis dermatitis Family History Family History Father Prostate cancer CVD (cardiovascular disease) Mother Hemochromatosis Brother Motor vehicle accident Sister CAD (coronary artery disease) Maternal Grandfather Myocardial infarction Family history of problems with anesthesia: No Surgical History Surgical History H/O prior ablation treatment History of bilateral cataract extraction History of carpal tunnel release History of gastric surgery History of tonsillectomy History of Problems with Anesthesia: No Social History Social History Household Members: Spouse Housing: House Alcohol intake: never Patient Tobacco Use Status: Former Tobacco user e-Cigarette/Vaping Use: Never Used Second Hand Smoke Exposure: Yes Substance Use Type: Marijuana service: No Current occupational status: retired Cognitive needs: Yes Hearing needs: Yes Vision needs: Yes Meds Allergies Allergy/AdvReac Type Severity Reaction Status Date / Time No Known Allergies Allergy Verified 09/22/22 12:56 [No Known Allergies*] Active Medications: Current Medications Acetaminophen (Acetaminophen 325 Mg Tablet) 650 mg PO Q6H PRN PRN Reason: Pain, Mild (Pain Scale 1-3) Albuterol Sulfate (Albuterol Sulfate 90 Mcg 8 Gm Inhaler) 2 puff INHALE Q4H PRN PRN Reason: Shortness Of Breath Or Wheezing Amlodipine Besylate (Amlodipine Besylate 5 Mg Tablet) 5 mg PO DAILY [facility]; Protocol Last Admin: 09/27/22 10:04 Dose: Not Given Doxazosin Mesylate (Doxazosin Mesylate 2 Mg Tablet) 4 mg PO DAILY [facility] Last Admin: 09/26/22 08:00 Dose: 4 mg Ferrous Sulfate (Ferrous Sulfate 324 Mg Tablet.Dr) 324 mg PO DAILY [facility] Last Admin: 09/27/22 10:05 Dose: Not Given Glucose (Glucose Gel 15 Gm Gel..Gram.) 15 gm PO Q15M PRN; Protocol PRN Reason: per Hypoglycemia Standing Ord. Dextrose (D10) 250 mls @ 750 mls/hr IV Q15M PRN; Protocol PRN Reason: per Hypoglycemia Standing Ord. Sodium Bicarbonate 100 meq/ (Dextrose) 1,000 mls @ 100 mls/hr IV .Q10H [facility] Last Admin: 09/27/22 05:49 Dose: 100 mls/hr Insulin Human Lispro (Insulin Lispro 100 Unit/Ml 3 Ml Vial) 0.1 - 10 unit SUBCUT QIDACHS [facility]; Protocol Last Admin: 09/27/22 07:35 Dose: Not Given Isosorbide Mononitrate (Isosorbide Mononitrate 30 Mg Tab.Er.24h) 30 mg PO DAILY [facility]; Protocol Last Admin: 09/26/22 07:59 Dose: 30 mg Ondansetron HCl (Ondansetron Hcl 4 Mg/2 Ml Vial) 4 mg IVPUSH Q8H PRN PRN Reason: Nausea and Vomiting Pharmacy Consult (Consult Rx Perform Med Rec) 1 each MISCELLANE ONCE PRN PRN Reason: Consult order Pravastatin Sodium (Pravastatin Sodium 20 Mg Tablet) 20 mg PO BEDTIME [facility] Last Admin: 09/26/22 20:05 Dose: 20 mg Salmeterol Xinafoate (Salmeterol Xinafoate 50 Mcg Blst.W.Dev) 1 puff INHALE RBID [facility] Last Admin: 09/27/22 07:43 Dose: 1 puff Sodium Bicarbonate (Sodium Bicarbonate 650 Mg Tablet) 650 mg PO QID [facility] Last Admin: 09/27/22 10:23 Dose: 650 mg Sodium Chloride (0.9 % Sodium Chloride Flush 3 Ml Syringe) 3 ml IVFLUSH QSHIFT [facility] Last Admin: 09/27/22 08:43 Dose: Not Given Tiotropium Advance (Tiotropium Advance 18 Mcg Cap.W.Dev) 1 puff INHALE RDAILY [facility] Last Admin: 09/27/22 07:43 Dose: 1 puff Home Medications Medication Instructions Recorded Confirmed Last Taken Type calcitriol 0.5 mcg capsule 0.5 mcg PO DAILY 04/03/20 09/24/22 09/23/22 History albuterol sulfate 90 mcg/actuation 2 puff inhalation 6XD PRN 07/05/20 09/24/22 09/23/22 History aerosol inhaler (ProAir HFA) Shortness Of Breath Or Wheezing ferrous sulfate 325 mg (65 mg 325 mg PO DAILY 04/04/21 09/24/22 09/23/22 History iron) tablet sodium bicarbonate 650 mg tablet 650 mg PO QID 09/22/22 09/24/22 09/23/22 History polyethylene glycol 3350 17 gram 17 g PO DAILY PRN Constipation 09/24/22 0 09/24/22 Unknown History oral powder packet (Miralax) torsemide 20 mg tablet 40 mg PO BID 09/24/22 09/24/22 09/23/22 History Exam Exam Date and Time: September 27, 2022 1037 Height,Weight and Vital Signs: Height 5 ft 11 in Weight 118.6 kg Last Vital Signs Temp 98.3 F 09/27/22 07:47 Pulse 40 L 09/27/22 07:47 Resp 20 09/27/22 07:47 BP 105/60 09/27/22 07:47 Pulse Ox 98 09/27/22 07:47 O2 Del Method Room Air 09/27/22 07:47 Pertinent Lab Results Pertinent Lab Results: Laboratory Tests 09/24/22 09/24/22 09/24/22 10:33 10:33 10:33 WBC 2.6 L RBC 2.29 L D Hgb 7.3 L D Hct 23.4 L D MCV 102.2 H MCH 31.9 MCHC 31.2 RDW 17.2 H Plt Count 77 L MPV 9.5 Immature Gran % (Auto) 0.4 Neut % (Auto) 72.9 Lymph % (Auto) 14.3 L Edgar % (Auto) 11.2 H Eos % (Auto) 0.0 Baso % (Auto) 1.2 Lymph # (Auto) 0.4 L Edgar # (Auto) 0.3 Eos # (Auto) 0.0 Baso # (Auto) 0.0 Abs Immat Gran (auto) 0.01 Absolute Neuts (auto) 1.9 L Absolute Nucleated RBC 0.000 Nucleated RBC % (auto) 0.0 PT 21.9 H INR 1.9 H APTT 38.6 H Sodium 143 Potassium 5.0 Chloride 113 H Carbon Dioxide 18 L Anion Gap 17 BUN 106 H Creatinine 5.01 H* Estim Creat Clear Calc 17.9 Estimated GFR 12 POC Glucose Random Glucose 77 Lactic Acid Calcium 8.0 L D Magnesium 1.9 Total Bilirubin 0.8 Direct Bilirubin 0.3 AST 12 ALT 12 Alkaline Phosphatase 131 H Total Protein 5.7 L Albumin 3.2 L Lipase 47 Urine Color Urine Appearance Urine pH Ur Specific [place] Urine Protein Urine Glucose (UA) Urine Ketones Urine Blood Urine Nitrite Ur Leukocyte Esterase Urine RBC Urine WBC Ur Squamous Epith Cells Urine Bacteria Hyaline Casts Ur Random Sodium Urine Creatinine Stool Occult Blood Influenza Type A (PCR) Influenza Type B (PCR) RSV RNA Qual (PCR) SARS-CoV-2 RNA (RT-PCR) Blood Type Antibody Screen 09/24/22 09/24/22 09/24/22 10:33 13:37 13:37 WBC RBC Hgb Hct MCV MCH MCHC RDW Plt Count MPV Immature Gran % (Auto) Neut % (Auto) Lymph % (Auto) Edgar % (Auto) Eos % (Auto) Baso % (Auto) Lymph # (Auto) Edgar # (Auto) Eos # (Auto) Baso # (Auto) Abs Immat Gran (auto) Absolute Neuts (auto) Absolute Nucleated RBC Nucleated RBC % (auto) PT INR APTT Sodium Potassium Chloride Carbon Dioxide Anion Gap BUN Creatinine Estim Creat Clear Calc Estimated GFR POC Glucose Random Glucose Lactic Acid Calcium Magnesium Total Bilirubin Direct Bilirubin AST ALT Alkaline Phosphatase Total Protein Albumin Lipase Urine Color Urine Appearance Urine pH Ur Specific [place] Urine Protein Urine Glucose (UA) Urine Ketones Urine Blood Urine Nitrite Ur Leukocyte Esterase Urine RBC Urine WBC Ur Squamous Epith Cells Urine Bacteria Hyaline Casts Ur Random Sodium 64.0 Urine Creatinine 70.94 Stool Occult Blood NEGATIVE Influenza Type A (PCR) NEGATIVE Influenza Type B (PCR) NEGATIVE RSV RNA Qual (PCR) NEGATIVE SARS-CoV-2 RNA (RT-PCR) NEGATIVE Blood Type Antibody Screen 09/24/22 09/24/22 09/24/22 13:37 14:15 14:15 WBC RBC Hgb Hct MCV MCH MCHC RDW Plt Count MPV Immature Gran % (Auto) Neut % (Auto) Lymph % (Auto) Edgar % (Auto) Eos % (Auto) Baso % (Auto) Lymph # (Auto) Edgar # (Auto) Eos # (Auto) Baso # (Auto) Abs Immat Gran (auto) Absolute Neuts (auto) Absolute Nucleated RBC Nucleated RBC % (auto) PT INR APTT Sodium Potassium Chloride Carbon Dioxide Anion Gap BUN Creatinine Estim Creat Clear Calc Estimated GFR POC Glucose Random Glucose Lactic Acid 0.7 Calcium Magnesium Total Bilirubin Direct Bilirubin AST ALT Alkaline Phosphatase Total Protein Albumin Lipase Urine Color Dark Yellow Urine Appearance Turbid Urine pH 5.5 Ur Specific [place] 1.010 Urine Protein 100 (2+) H Urine Glucose (UA) Negative Urine Ketones Negative Urine Blood Large (3+) H Urine Nitrite Negative Ur Leukocyte Esterase Large (3+) H Urine RBC >20 H Urine WBC >50 H Ur Squamous Epith Cells 0-2 Urine Bacteria 4+ Hyaline Casts 0-2 Ur Random Sodium Urine Creatinine Stool Occult Blood Influenza Type A (PCR) Influenza Type B (PCR) RSV RNA Qual (PCR) SARS-CoV-2 RNA (RT-PCR) Blood Type A Negative Antibody Screen NEGATIVE 09/24/22 09/25/22 09/25/22 23:09 05:47 05:47 WBC 3.2 L RBC 2.50 L Hgb 8.2 L Hct 25.5 L MCV 102.0 H MCH 32.8 MCHC 32.2 RDW 17.2 H Plt Count 85 L MPV 9.6 Immature Gran % (Auto) 0.3 Neut % (Auto) 72.2 Lymph % (Auto) 17.1 L Edgar % (Auto) 9.8 Eos % (Auto) 0.0 Baso % (Auto) 0.6 Lymph # (Auto) 0.5 L Edgar # (Auto) 0.3 Eos # (Auto) 0.0 Baso # (Auto) 0.0 Abs Immat Gran (auto) 0.01 Absolute Neuts (auto) 2.3 Absolute Nucleated RBC 0.000 Nucleated RBC % (auto) 0.0 PT INR APTT Sodium 143 Potassium 5.1 Chloride 113 H Carbon Dioxide 18 L Anion Gap 17 BUN 96 H Creatinine 4.64 H* Estim Creat Clear Calc 19.6 Estimated GFR 13 POC Glucose 106 Random Glucose 72 Lactic Acid Calcium 8.5 D Magnesium Total Bilirubin 0.7 Direct Bilirubin AST 14 ALT 13 Alkaline Phosphatase 145 H Total Protein 6.1 L Albumin 3.4 L Lipase Urine Color Urine Appearance Urine pH Ur Specific [place] Urine Protein Urine Glucose (UA) Urine Ketones Urine Blood Urine Nitrite Ur Leukocyte Esterase Urine RBC Urine WBC Ur Squamous Epith Cells Urine Bacteria Hyaline Casts Ur Random Sodium Urine Creatinine Stool Occult Blood Influenza Type A (PCR) Influenza Type B (PCR) RSV RNA Qual (PCR) SARS-CoV-2 RNA (RT-PCR) Blood Type Antibody Screen 09/25/22 09/25/22 09/25/22 06:47 11:07 16:12 WBC RBC Hgb Hct MCV MCH MCHC RDW Plt Count MPV Immature Gran % (Auto) Neut % (Auto) Lymph % (Auto) Edgar % (Auto) Eos % (Auto) Baso % (Auto) Lymph # (Auto) Edgar # (Auto) Eos # (Auto) Baso # (Auto) Abs Immat Gran (auto) Absolute Neuts (auto) Absolute Nucleated RBC Nucleated RBC % (auto) PT INR APTT Sodium Potassium Chloride Carbon Dioxide Anion Gap BUN Creatinine Estim Creat Clear Calc Estimated GFR POC Glucose 80 137 H 111 Random Glucose Lactic Acid Calcium Magnesium Total Bilirubin Direct Bilirubin AST ALT Alkaline Phosphatase Total Protein Albumin Lipase Urine Color Urine Appearance Urine pH Ur Specific [place] Urine Protein Urine Glucose (UA) Urine Ketones Urine Blood Urine Nitrite Ur Leukocyte Esterase Urine RBC Urine WBC Ur Squamous Epith Cells Urine Bacteria Hyaline Casts Ur Random Sodium Urine Creatinine Stool Occult Blood Influenza Type A (PCR) Influenza Type B (PCR) RSV RNA Qual (PCR) SARS-CoV-2 RNA (RT-PCR) Blood Type Antibody Screen 09/25/22 09/25/22 09/26/22 20:39 23:31 05:37 WBC 2.8 L RBC 2.39 L Hgb 7.6 L Hct 24.0 L MCV 100.4 H MCH 31.8 MCHC 31.7 RDW 17.2 H Plt Count 76 L MPV 9.7 Immature Gran % (Auto) 0.4 Neut % (Auto) 65.9 Lymph % (Auto) 19.2 L Edgar % (Auto) 13.4 H Eos % (Auto) 0.0 Baso % (Auto) 1.1 Lymph # (Auto) 0.5 L Edgar # (Auto) 0.4 Eos # (Auto) 0.0 Baso # (Auto) 0.0 Abs Immat Gran (auto) 0.01 Absolute Neuts (auto) 1.8 L Absolute Nucleated RBC 0.000 Nucleated RBC % (auto) 0.0 PT INR APTT Sodium Potassium Chloride Carbon Dioxide Anion Gap BUN Creatinine Estim Creat Clear Calc Estimated GFR POC Glucose 104 Random Glucose Lactic Acid Calcium Magnesium 1.7 Total Bilirubin Direct Bilirubin AST ALT Alkaline Phosphatase Total Protein Albumin Lipase Urine Color Urine Appearance Urine pH Ur Specific [place] Urine Protein Urine Glucose (UA) Urine Ketones Urine Blood Urine Nitrite Ur Leukocyte Esterase Urine RBC Urine WBC Ur Squamous Epith Cells Urine Bacteria Hyaline Casts Ur Random Sodium Urine Creatinine Stool Occult Blood Influenza Type A (PCR) Influenza Type B (PCR) RSV RNA Qual (PCR) SARS-CoV-2 RNA (RT-PCR) Blood Type Antibody Screen 09/26/22 09/26/22 09/26/22 05:37 07:11 11:07 WBC RBC Hgb Hct MCV MCH MCHC RDW Plt Count MPV Immature Gran % (Auto) Neut % (Auto) Lymph % (Auto) Edgar % (Auto) Eos % (Auto) Baso % (Auto) Lymph # (Auto) Edgar # (Auto) Eos # (Auto) Baso # (Auto) Abs Immat Gran (auto) Absolute Neuts (auto) Absolute Nucleated RBC Nucleated RBC % (auto) PT INR APTT Sodium 143 Potassium 5.2 H Chloride 114 H Carbon Dioxide 16 L Anion Gap 18 BUN 100 H Creatinine 4.88 H* Estim Creat Clear Calc 18.7 Estimated GFR 12 POC Glucose 74 101 Random Glucose 75 Lactic Acid Calcium 8.2 L Magnesium Total Bilirubin 0.6 Direct Bilirubin AST 12 ALT 12 Alkaline Phosphatase 134 H Total Protein 5.5 L Albumin 3.1 L Lipase Urine Color Urine Appearance Urine pH Ur Specific [place] Urine Protein Urine Glucose (UA) Urine Ketones Urine Blood Urine Nitrite Ur Leukocyte Esterase Urine RBC Urine WBC Ur Squamous Epith Cells Urine Bacteria Hyaline Casts Ur Random Sodium Urine Creatinine Stool Occult Blood Influenza Type A (PCR) Influenza Type B (PCR) RSV RNA Qual (PCR) SARS-CoV-2 RNA (RT-PCR) Blood Type Antibody Screen 09/26/22 09/26/22 09/27/22 16:21 20:19 06:11 WBC 3.0 L RBC 2.43 L Hgb 7.7 L Hct 24.4 L MCV 100.4 H MCH 31.7 MCHC 31.6 RDW 16.9 H Plt Count 72 L MPV 10.0 Immature Gran % (Auto) 0.3 Neut % (Auto) 66.6 Lymph % (Auto) 19.4 L Edgar % (Auto) 13.0 H Eos % (Auto) 0.0 Baso % (Auto) 0.7 Lymph # (Auto) 0.6 L Edgar # (Auto) 0.4 Eos # (Auto) 0.0 Baso # (Auto) 0.0 Abs Immat Gran (auto) 0.01 Absolute Neuts (auto) 2.0 Absolute Nucleated RBC 0.000 Nucleated RBC % (auto) 0.0 PT INR APTT Sodium Potassium Chloride Carbon Dioxide Anion Gap BUN Creatinine Estim Creat Clear Calc Estimated GFR POC Glucose 95 95 Random Glucose Lactic Acid Calcium Magnesium Total Bilirubin Direct Bilirubin AST ALT Alkaline Phosphatase Total Protein Albumin Lipase Urine Color Urine Appearance Urine pH Ur Specific [place] Urine Protein Urine Glucose (UA) Urine Ketones Urine Blood Urine Nitrite Ur Leukocyte Esterase Urine RBC Urine WBC Ur Squamous Epith Cells Urine Bacteria Hyaline Casts Ur Random Sodium Urine Creatinine Stool Occult Blood Influenza Type A (PCR) Influenza Type B (PCR) RSV RNA Qual (PCR) SARS-CoV-2 RNA (RT-PCR) Blood Type Antibody Screen 09/27/22 09/27/22 06:11 07:19 WBC RBC Hgb Hct MCV MCH MCHC RDW Plt Count MPV Immature Gran % (Auto) Neut % (Auto) Lymph % (Auto) Edgar % (Auto) Eos % (Auto) Baso % (Auto) Lymph # (Auto) Edgar # (Auto) Eos # (Auto) Baso # (Auto) Abs Immat Gran (auto) Absolute Neuts (auto) Absolute Nucleated RBC Nucleated RBC % (auto) PT INR APTT Sodium 141 Potassium 4.8 Chloride 110 H Carbon Dioxide 21 L Anion Gap 15 BUN 95 H Creatinine 4.68 H* Estim Creat Clear Calc 19.5 Estimated GFR 12 POC Glucose 80 Random Glucose 80 Lactic Acid Calcium 8.2 L Magnesium Total Bilirubin 0.5 Direct Bilirubin AST 11 ALT 10 Alkaline Phosphatase 122 H Total Protein 5.3 L Albumin 2.9 L Lipase Urine Color Urine Appearance Urine pH Ur Specific [place] Urine Protein Urine Glucose (UA) Urine Ketones Urine Blood Urine Nitrite Ur Leukocyte Esterase Urine RBC Urine WBC Ur Squamous Epith Cells Urine Bacteria Hyaline Casts Ur Random Sodium Urine Creatinine Stool Occult Blood Influenza Type A (PCR) Influenza Type B (PCR) RSV RNA Qual (PCR) SARS-CoV-2 RNA (RT-PCR) Blood Type Antibody Screen Airway Mallampati Class: II TM Dist: >3cm Neck ROM: Full Loose/Missing/Broken Teeth: Yes (missing upper teeth) Heart: IRRR Lungs: CTA Assessment and Plan Assessment Anesthesia Assessment: Anesthesia Plan Discussed and Chart Reviewed Final Anesthetic Review Family History of Problems with Anesthesia: No History of Problems with Anesthesia: No NPO: Yes ASA Class: IV Final Preanesthetic Review: No Changes in Pt Med Stat, Meds/Allgs Chart Reviewed, Consent Obtained/Reviewed and Anes Risks/Benef Reviewed Patient Risk: High Procedure Risk: Low Anesthetic Plan Anesthetic Plan: GA Disposition: Standard PACU
--- NOTE | 2022-09-27 11:33 | HO.PM.IMPN ---
Subjective Subjective Date of Service: 09/27/22 Interval History: No acute cardiac events overnight. Monitor atrial fibrillation with slow ventricular response (50-60). No focal complaints Review of Systems Denies chest pain Denies shortness of breath Denies nausea vomiting diarrhea Denies fever chills Physical Exam Vital Signs: Vital Signs: Last Vital Signs Temp 98.3 F 09/27/22 07:47 Pulse 40 L 09/27/22 07:47 Resp 20 09/27/22 07:47 BP 105/60 09/27/22 07:47 Pulse Ox 98 09/27/22 07:47 O2 Del Method Room Air 09/27/22 07:47 BMI result Body Mass Index 36.4 Const: Other: Awake alert oriented x3 no acute distress Resp: Other: Clear to auscultation bilaterally no rales rhonchi or wheezes Cardio: Other: No S4; positive S1-S2; no S3 murmurs rubs or gallops. Irregularly irregular GI: Other: Soft nontender nondistended normoactive bowel sounds Extrem: Other: Chronic venous stasis changes bilateral lower extremity Objective Data Active Medications Acetaminophen (Acetaminophen 325 Mg Tablet) 650 mg PO Q6H PRN PRN Reason: Pain, Mild (Pain Scale 1-3) Albuterol Sulfate (Albuterol Sulfate 90 Mcg 8 Gm Inhaler) 2 puff INHALE Q4H PRN PRN Reason: Shortness Of Breath Or Wheezing Amlodipine Besylate (Amlodipine Besylate 5 Mg Tablet) 5 mg PO DAILY [facility]; Protocol Last Admin: 09/27/22 10:04 Dose: Not Given Documented By: HOWARD Non-Admin Reason: Off Unit: Surgery Doxazosin Mesylate (Doxazosin Mesylate 2 Mg Tablet) 4 mg PO DAILY [facility] Last Admin: 09/26/22 08:00 Dose: 4 mg Documented By: IKE Ferrous Sulfate (Ferrous Sulfate 324 Mg Tablet.) 324 mg PO DAILY [facility] Last Admin: 09/27/22 10:05 Dose: Not Given Documented By: HOWARD Non-Admin Reason: Off Unit: Surgery Glucose (Glucose Gel 15 Gm Gel..Gram.) 15 gm PO Q15M PRN; Protocol PRN Reason: per Hypoglycemia Standing Ord. Dextrose (D10) 250 mls @ 750 mls/hr IV Q15M PRN; Protocol PRN Reason: per Hypoglycemia Standing Ord. Sodium Bicarbonate 100 meq/ (Dextrose) 1,000 mls @ 100 mls/hr IV .Q10H [facility] Last Admin: 09/27/22 05:49 Dose: 100 mls/hr Documented By: TRISH Insulin Human Lispro (Insulin Lispro 100 Unit/Ml 3 Ml Vial) 0.1 - 10 unit SUBCUT QIDACHS [facility]; Protocol Last Admin: 09/27/22 07:35 Dose: Not Given Documented By: HOWARD Non-Admin Reason: No Insulin Coverage Isosorbide Mononitrate (Isosorbide Mononitrate 30 Mg Tab.Er.24h) 30 mg PO DAILY [facility]; Protocol Last Admin: 09/26/22 07:59 Dose: 30 mg Documented By: IKE Ondansetron HCl (Ondansetron Hcl 4 Mg/2 Ml Vial) 4 mg IVPUSH Q8H PRN PRN Reason: Nausea and Vomiting Pharmacy Consult (Consult Rx Perform Med Rec) 1 each MISCELLANE ONCE PRN PRN Reason: Consult order Pravastatin Sodium (Pravastatin Sodium 20 Mg Tablet) 20 mg PO BEDTIME [facility] Last Admin: 09/26/22 20:05 Dose: 20 mg Documented By: TRISH Salmeterol Xinafoate (Salmeterol Xinafoate 50 Mcg Blst.W.Dev) 1 puff INHALE RBID [facility] Last Admin: 09/27/22 07:43 Dose: 1 puff Documented By: CRYSTAL Sodium Bicarbonate (Sodium Bicarbonate 650 Mg Tablet) 650 mg PO QID [facility] Last Admin: 09/27/22 10:23 Dose: 650 mg Documented By: HOWARD Sodium Chloride (0.9 % Sodium Chloride Flush 3 Ml Syringe) 3 ml IVFLUSH QSHIFT [facility] Last Admin: 09/27/22 08:43 Dose: Not Given Documented By: HOWARD Non-Admin Reason: IV Running Tiotropium [place] (Tiotropium [place] 18 Mcg Cap.W.Dev) 1 puff INHALE RDAILY [facility] Last Admin: 09/27/22 07:43 Dose: 1 puff Documented By: CRYSATL Labs 09/27/22 06:11 09/27/22 06:11 Labs: Laboratory Results - last 24 hr 09/26/22 09/26/22 09/27/22 16:21 20:19 06:11 MCV 100.4 H MCH 31.7 MCHC 31.6 RDW 16.9 H Plt Count 72 L MPV 10.0 Immature Gran % (Auto) 0.3 Neut % (Auto) 66.6 Lymph % (Auto) 19.4 L [place] % (Auto) 13.0 H Eos % (Auto) 0.0 Baso % (Auto) 0.7 Lymph # (Auto) 0.6 L [place] # (Auto) 0.4 Eos # (Auto) 0.0 Baso # (Auto) 0.0 Abs Immat Gran (auto) 0.01 Absolute Neuts (auto) 2.0 Absolute Nucleated RBC 0.000 Nucleated RBC % (auto) 0.0 Anion Gap Estim Creat Clear Calc Estimated GFR POC Glucose 95 95 Random Glucose Calcium Total Bilirubin AST ALT Alkaline Phosphatase Total Protein Albumin 09/27/22 09/27/22 06:11 07:19 MCV MCH MCHC RDW Plt Count MPV Immature Gran % (Auto) Neut % (Auto) Lymph % (Auto) [place] % (Auto) Eos % (Auto) Baso % (Auto) Lymph # (Auto) [place] # (Auto) Eos # (Auto) Baso # (Auto) Abs Immat Gran (auto) Absolute Neuts (auto) Absolute Nucleated RBC Nucleated RBC % (auto) Anion Gap 15 Estim Creat Clear Calc 19.5 Estimated GFR 12 POC Glucose 80 Random Glucose 80 Calcium 8.2 L Total Bilirubin 0.5 AST 11 ALT 10 Alkaline Phosphatase 122 H Total Protein 5.3 L Albumin 2.9 L Microbiology Microbiology Results: Microbiology 09/24/22 14:25 Blood Culture - Preliminary Blood - Venous No growth after 48 hours. 09/24/22 14:15 Blood Culture - Preliminary Blood - Venous No growth after 48 hours. 09/24/22 14:03 Urine Culture - Final Urine clean catch - Urine keys top Klebsiella oxytoca Assessment and Plan (1) Afib: Status: Acute (2) Hematuria: Status: Acute (3) Acute kidney injury superimposed on chronic kidney disease: Status: Acute Plan 67-year-old male presents emergency room today with a complaint of gross hematuria. 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 Found to have acute kidney injury in backdrop of chronic kidney disease. Patient recently admitted to [facility] secondary to abdominal pain; CT abdomen revealed a moderate volume pneumoperitoneum concerning for bowel perforation general surgery was consulted he was taken to the or emergent urgently for an ex lap with primary repair of the duodenal perforation with Amrit patch repair with PAUL drain placement.? He was admitted to the surgical ICU for blood pressure support and renal was consulted for an acute on chronic kidney failure.? Patient has never required hemodialysis.? He was weaned off pressors and transferred out of the ICU on 08/18.? Postoperative day 5 PAUL drain was noticed to have increased bloody output and was sent for IR for evaluation.? He had an upper GI study on 08/21 revealing no evidence of leak. 1. Paroxysmal atrial fibrillation with slow ventricular response (asymptomatic) -for pacemakertoday -monitor on telemetry -avoid selena agents -hold Eliquis at this time secondary to pacer placement....restart as per cardiology 2. Hematuria (Klebsiella).. -switch to IV Levaquin(2) -continue [place] -strict I&Os 3. Acute kidney injury superimposed on chronic kidney disease -bicarb improved; will DC bicarb drip and continue oral repletion -follow renals/divalents -follow response to pacer 4.. Diabetes type 2 -well controlled per patient -cover with sliding scale 5.Hypertension -acceptable control on current therapies -adjust as indicated Pneumatics Full Code Will require at least 2 midnights of inpatient stay for volume repletion and monitor of renal function. Will also need evaluation of hematuria. This cannot be achieved a lesser acute setting Time Spent With Patient Time: Total time managing care of this patient today ____ minutes. Quality Stroke Does the patient have a stroke diagnosis?: No VTE Prior VTE?: No VTE Risk Level:: Medical - moderate - high VTE Device Contraindication: Treatment Not Indicated VTE Drug Contraindication: N/A - Med Ordered
[2022-09-27 14:29] LABS: Glucose, Whole Blood 78 mg/dL (60-115)
[2022-09-27] MEDS: 0.9 % Sodium Chloride Flush 3 ML SYRINGE IVFLUSH ×2 (16:01→19:58)
[2022-09-27 16:54] LABS: Glucose, Whole Blood 80 mg/dL (60-115)
[2022-09-27] MEDS: Pravastatin Sodium 20 MG TABLET PO (19:58)
[2022-09-27 20:07] LABS: Glucose, Whole Blood 91 mg/dL (60-115)
[2022-09-28] VITALS (11 sets, daily range): BP systolic 107–144; BP diastolic 50–85; PULSE 65–93; RESP 14–20; TEMP 36.4–37.2; O2SAT 95–98
--- NOTE | 2022-09-28 | ECG_ITS ---
Test Reason : AFIB Blood Pressure : / mmHG Vent. Rate : 090 BPM Atrial Rate : 000 BPM P-R Int : 000 ms QRS Dur : 154 ms QT Int : 372 ms P-R-T Axes : 000 -81 127 degrees QTc Int : 455 ms Intermittent dual chamber pacing; some V pacing, some [place] conduction Abnormal ECG No previous ECGs available Referred By: Oliver Aleman Electronically Signed By:VICKY BANGURA
[2022-09-28] MEDS: Acetaminophen 325 MG TABLET 650 MG PO (06:26)
[2022-09-28 06:48] LABS: MANUAL DIFF FLAG NO
[2022-09-28 06:52] LABS: Basophils Percent Auto 0.8 % (0-2); Hematocrit 25.3 % (42.0-52.0); Imm Gran Abs Auto 0.02 X10*3/uL (0.00-0.03); Imm Gran Pct Auto 0.6 % (0.0-0.4); Lymphocytes Absolute Auto 0.5 X10*3/uL (1.2-4.9); Lymphocytes Percent Auto 13.2 % (20-40); Mean Corpuscular HGB Conc 31.6 g/dl (31.0-36.0); Mean Corpuscular Hemoglobin 32.3 pg (27.0-33.0); Mean Platelet Volume 9.5 fL (9.4-12.4); Monocytes Absolute Auto 0.4 X10*3/uL (0.1-1.2); Monocytes Percent Auto 10.4 % (2-11); Neutrophils Absolute Auto 2.7 x10*3/uL (2.0-8.3); Red Blood Count 2.48 X10*6/uL (4.60-5.80); Red Cell Distribution Width 16.7 % (11.0-16.0); White Blood Count 3.6 X10*3/uL (4.8-10.8)
[2022-09-28 07:07] LABS: Platelet Count 77 X10*3/uL (160-400)
[2022-09-28 07:24] LABS: Alanine Aminotransferase 5 U/L (0-40); Alkaline Phosphatase 116 U/L (39-117); Anion Gap 15 (12-20); Aspartate Amino Transferase 10 U/L (5-37); Bilirubin Total 0.6 mg/dL (0.0-1.0); Blood Urea Nitrogen 91 mg/dL (9-16); Calcium 8.2 mg/dL (8.4-10.2); Carbon Dioxide 22 mmol/L (22-29); Chloride 109 mmol/L (96-108); Creatinine Clr Calc Pharmacy 19.8; Estimated Glomerular Filt Rate 13; Glucose Fasting 77 mg/dL (60-99); Potassium 4.9 mmol/L (3.3-5.1); Sodium 141 mmol/L (135-145); Total Protein 5.3 g/dL (6.5-8.0)
[2022-09-28] MEDS: Salmeterol Xinafoate 50 MCG BLST.W.DEV 1 PUFF INHALE ×2 (07:30→19:53)
[2022-09-28 07:39] LABS: Glucose, Whole Blood 77 mg/dL (60-115)
[2022-09-28] MEDS: 0.9 % Sodium Chloride Flush 3 ML SYRINGE IVFLUSH (08:19)
[2022-09-28] MEDS: amLODIPine Besylate 5 MG TABLET PO (08:20)
[2022-09-28] MEDS: Ferrous Sulfate 324 MG TABLET.DR PO (08:20)
[2022-09-28] MEDS: Sodium Bicarbonate 650 MG TABLET PO ×3 (08:20→20:57)
--- NOTE | 2022-09-28 08:46 | HO.POSTANES ---
Post Anesthesia Evaluation Post Anesthesia Evaluation Vital Signs: Vital Signs Temp Pulse Resp BP Pulse Ox O2 Del Method 09/28/22 07:30 65 15 09/28/22 07:16 97.5 F 88 20 130/72 98 Room Air 09/28/22 02:58 98.3 F 81 18 107/57 L 97 Room Air 09/27/22 22:41 98.1 F 78 20 120/72 98 Room Air 09/27/22 22:42 60 18 Anesthesia: General LMA Mental Status: Awake Pain Control: Satisfactory Nausea/Vomiting: None Hydration: Adequate Anesthesia-Related Issues: No Anes. Related Issues
[2022-09-28] MEDS: levoFLOXacin/D5W 500 MG/100 ML PIGGYBACK 100 MG IV (09:17)
[2022-09-28 11:44] LABS: Glucose, Whole Blood 89 mg/dL (60-115)
--- NOTE | 2022-09-28 11:44 | P.PNCA_ITS ---
Subjective Subjective Date of Service: 09/28/22 Principal diagnosis: Bradycardia Interval history: Patient underwent pacemaker placement yesterday dual-chamber pacemaker. RV lead has dislodged. Patient has no cardiac symptoms. Some discomfort at the pacer site. Creatinine is still elevated Review of Systems Constitutional: Reports malaise and Reports weakness Cardiovascular: Reports no additional cardiovascular complaints Respiratory: Reports no additional respiratory complaints Reports weakness Physical Exam Vital Signs: Last Vital Signs Temp 97.7 F 09/28/22 11:39 Pulse 86 09/28/22 11:39 Resp 20 09/28/22 11:39 BP 144/63 H 09/28/22 11:39 Pulse Ox 95 09/28/22 11:39 O2 Del Method Room Air 09/28/22 11:39 O2 Flow Rate 2 09/27/22 14:15 BMI result Body Mass Index 36.4 Const General: cooperative, comfortable, no acute distress, alert, awake and tired appearing Nutritional Appearance: obese Orientation/consciousness: patient oriented x3 Neck Neck: Yes trachea midline, Yes supple and Yes no JVD Resp Effort & Inspection: normal respiratory effort Auscultation: clear to auscultation bilaterally Cardio Jugular venous distension: no JVD Rate: bradycardic Rhythm: abnormal rhythm irregularly irregular Heart sounds: S1 normal heart sound present, S2 normal heart sound present, no click, no gallops and no murmurs GI Auscultation: normal bowel sounds Skin General skin exam: no rashes or lesions noted and ecchymosis Neuro General: patient oriented x3 and no focal motor deficits Extrem General: Yes no clubbing, cyanosis or edema Objective Labs and Meds 09/28/22 06:23 09/28/22 06:23 Lab results: Laboratory Results - last 24 hr 09/27/22 09/27/22 09/27/22 14:22 16:41 19:53 WBC RBC Hgb Hct MCV MCH MCHC RDW Plt Count MPV Immature Gran % (Auto) Neut % (Auto) Lymph % (Auto) [place] % (Auto) Eos % (Auto) Baso % (Auto) Lymph # (Auto) [place] # (Auto) Eos # (Auto) Baso # (Auto) Abs Immat Gran (auto) Absolute Neuts (auto) Absolute Nucleated RBC Nucleated RBC % (auto) Sodium Potassium Chloride Carbon Dioxide Anion Gap BUN Creatinine Estim Creat Clear Calc Estimated GFR POC Glucose 78 80 91 Fasting Glucose Calcium Total Bilirubin AST ALT Alkaline Phosphatase Total Protein Albumin 09/28/22 09/28/22 09/28/22 06:23 06:23 07:35 WBC 3.6 L RBC 2.48 L Hgb 8.0 L Hct 25.3 L MCV 102.0 H MCH 32.3 MCHC 31.6 RDW 16.7 H Plt Count 77 L MPV 9.5 Immature Gran % (Auto) 0.6 H Neut % (Auto) 75.0 H Lymph % (Auto) 13.[address] [place] % (Auto) 10.4 Eos % (Auto) 0.0 Baso % (Auto) 0.8 Lymph # (Auto) 0.[address] [place] # (Auto) 0.4 Eos # (Auto) 0.0 Baso # (Auto) 0.0 Abs Immat Gran (auto) 0.02 Absolute Neuts (auto) 2.7 Absolute Nucleated RBC 0.000 Nucleated RBC % (auto) 0.0 Sodium 141 Potassium 4.9 Chloride 109 H Carbon Dioxide 22 Anion Gap 15 BUN 91 H Creatinine 4.59 H* Estim Creat Clear Calc 19.8 Estimated GFR 13 POC Glucose 77 Fasting Glucose 77 Calcium 8.2 L Total Bilirubin 0.6 AST 10 ALT 5 Alkaline Phosphatase 116 Total Protein 5.3 L Albumin 3.0 L 09/28/22 11:36 WBC RBC Hgb Hct MCV MCH MCHC RDW Plt Count MPV Immature Gran % (Auto) Neut % (Auto) Lymph % (Auto) [place] % (Auto) Eos % (Auto) Baso % (Auto) Lymph # (Auto) [place] # (Auto) Eos # (Auto) Baso # (Auto) Abs Immat Gran (auto) Absolute Neuts (auto) Absolute Nucleated RBC Nucleated RBC % (auto) Sodium Potassium Chloride Carbon Dioxide Anion Gap BUN Creatinine Estim Creat Clear Calc Estimated GFR POC Glucose 89 Fasting Glucose Calcium Total Bilirubin AST ALT Alkaline Phosphatase Total Protein Albumin Imaging Radiologist's impression: Impressions Chest X-Ray 09/27/22 15:00 FINDINGS/IMPRESSION: The study is limited by portable technique and low lung volumes. No focal infiltrate, effusion, pneumothorax is seen. The pulmonary veins may be mildly prominent in the nondependent portions, raising the possibility of mild pulmonary venous hypertension, not grossly changed. The cardiac silhouette is suboptimally evaluated. The aorta is atherosclerotic. The tips of left subclavian pulse generator device leads project over the right atrium and right ventricle. Severe osteoarthritis of the glenohumeral joints. Mild degenerative changes of the spine. Chest X-Ray 09/28/22 08:04 IMPRESSION: 1. Left chest wall pacer with the leads overlying the right heart. The leads appear intact. 2. Patchy right infrahilar airspace opacities, new when compared to the prior examination which could represent atelectasis versus early infiltrates. Mild interstitial prominence and vascular crowding, new when compared to the prior examination. Progress Note: A&P Assessment and plan (1) Bradycardia: Status: Acute Assessment and Plan: Patient with significant bradycardia status post dual-chamber pacemaker with unfortunate RV lead dislodgement. Undergoing surgery again today. From cardiac perspective no other recommendations at this point in time. Will follow-up as outpatient in 6 weeks time. (2) Afib: Status: Acute Assessment and Plan: Paroxysmal atrial fibrillation given atrial activity noted on echocardiogram. Also noted to have atrial capture thresholds with atrial lead yesterday although appears to have atrial myopathy process. Continue rate control and current medications. Once cleared by Urology can resume oral anticoagulation although this may be difficult given his advancing renal dysfunction. Will sign of the case. Thank you for allowing me to partake in his care Time Spent With Patient Time: Total time managing care of this patient today ____ minutes. Progress Note: Quality Stroke Does the patient have a stroke diagnosis?: No Procedures Date of Service Date of Service: 09/28/22
--- NOTE | 2022-09-28 12:05 | P.PNIM_ITS ---
Subjective Subjective Date of Service: 09/28/22 Physical Exam Vital Signs: Vital Signs: Last Vital Signs Temp 97.7 F 09/28/22 11:39 Pulse 86 09/28/22 11:39 Resp 20 09/28/22 11:39 BP 144/63 H 09/28/22 11:39 Pulse Ox 95 09/28/22 11:39 O2 Del Method Room Air 09/28/22 11:39 O2 Flow Rate 2 09/27/22 14:15 BMI result Body Mass Index 36.4 Objective Data Active Medications Acetaminophen (Acetaminophen 325 Mg Tablet) 650 mg PO Q6H PRN PRN Reason: Pain, Mild (Pain Scale 1-3) Last Admin: 09/28/22 06:26 Dose: 650 mg Documented By: ALHAJI Albuterol Sulfate (Albuterol Sulfate 90 Mcg 8 Gm Inhaler) 2 puff INHALE Q4H PRN PRN Reason: Shortness Of Breath Or Wheezing Amlodipine Besylate (Amlodipine Besylate 5 Mg Tablet) 5 mg PO DAILY [facility]; Protocol Last Admin: 09/28/22 08:20 Dose: 5 mg Documented By: USMAN Doxazosin Mesylate (Doxazosin Mesylate 2 Mg Tablet) 4 mg PO DAILY [facility] Last Admin: 09/26/22 08:00 Dose: 4 mg Documented By: IKE Ferrous Sulfate (Ferrous Sulfate 324 Mg Tablet.Dr) 324 mg PO DAILY [facility] Last Admin: 09/28/22 08:20 Dose: 324 mg Documented By: USMAN Glucose (Glucose Gel 15 Gm Gel..Gram.) 15 gm PO Q15M PRN; Protocol PRN Reason: per Hypoglycemia Standing Ord. Dextrose (D10) 250 mls @ 750 mls/hr IV Q15M PRN; Protocol PRN Reason: per Hypoglycemia Standing Ord. Levofloxacin (Levaquin) 500 mg in 100 mls @ 100 mls/hr IV Q48H [facility] Last Infusion: 09/28/22 10:17 Dose: 0 mls/hr Documented By: USMAN Insulin Human Lispro (Insulin Lispro 100 Unit/Ml 3 Ml Vial) 0.1 - 10 unit SUBCUT QIDACHS [facility]; Protocol Last Admin: 09/28/22 11:59 Dose: Not Given Documented By: CAITY Non-Admin Reason: No Insulin Coverage Isosorbide Mononitrate (Isosorbide Mononitrate 30 Mg Tab.Er.24h) 30 mg PO DAILY [facility]; Protocol Last Admin: 09/26/22 07:59 Dose: 30 mg Documented By: IKE Ondansetron HCl (Ondansetron Hcl 4 Mg/2 Ml Vial) 4 mg IVPUSH Q8H PRN PRN Reason: Nausea and Vomiting Pharmacy Consult (Consult Rx Perform Med Rec) 1 each MISCELLANE ONCE PRN PRN Reason: Consult order Pravastatin Sodium (Pravastatin Sodium 20 Mg Tablet) 20 mg PO BEDTIME [facility] Last Admin: 09/27/22 19:58 Dose: 20 mg Documented By: ALHAJI Salmeterol Xinafoate (Salmeterol Xinafoate 50 Mcg Blst.W.Dev) 1 puff INHALE RBID [facility] Last Admin: 09/28/22 07:30 Dose: 1 puff Documented By: CRYSTAL Sodium Bicarbonate (Sodium Bicarbonate 650 Mg Tablet) 650 mg PO QID [facility] Last Admin: 09/28/22 08:20 Dose: 650 mg Documented By: USMAN Sodium Chloride (0.9 % Sodium Chloride Flush 3 Ml Syringe) 3 ml IVFLUSH QSHIFT [facility] Last Admin: 09/28/22 08:19 Dose: 3 ml Documented By: USMAN Tiotropium [place] (Tiotropium [place] 18 Mcg Cap.W.Dev) 1 puff INHALE RDAILY [facility] Last Admin: 09/28/22 07:30 Dose: 1 puff Documented By: CRYSTAL Labs 09/28/22 06:23 09/28/22 06:23 Labs: Laboratory Results - last 24 hr 09/27/22 09/27/22 09/27/22 14:22 16:41 19:53 MCV MCH MCHC RDW Plt Count MPV Immature Gran % (Auto) Neut % (Auto) Lymph % (Auto) [place] % (Auto) Eos % (Auto) Baso % (Auto) Lymph # (Auto) [place] # (Auto) Eos # (Auto) Baso # (Auto) Abs Immat Gran (auto) Absolute Neuts (auto) Absolute Nucleated RBC Nucleated RBC % (auto) Anion Gap Estim Creat Clear Calc Estimated GFR POC Glucose 78 80 91 Fasting Glucose Calcium Total Bilirubin AST ALT Alkaline Phosphatase Total Protein Albumin 0409/28/22 09/28/22 06:23 06:23 07:35 MCV 102.0 H MCH 32.3 MCHC 31.6 RDW 16.7 H Plt Count 77 L MPV 9.5 Immature Gran % (Auto) 0.6 H Neut % (Auto) 75.0 H Lymph % (Auto) 13.2 L [place] % (Auto) 10.4 Eos % (Auto) 0.0 Baso % (Auto) 0.8 Lymph # (Auto) 0.5 L [place] # (Auto) 0.4 Eos # (Auto) 0.0 Baso # (Auto) 0.0 Abs Immat Gran (auto) 0.02 Absolute Neuts (auto) 2.7 Absolute Nucleated RBC 0.000 Nucleated RBC % (auto) 0.0 Anion Gap 15 Estim Creat Clear Calc 19.8 Estimated GFR 13 POC Glucose 77 Fasting Glucose 77 Calcium 8.2 L Total Bilirubin 0.6 AST 10 ALT 5 Alkaline Phosphatase 116 Total Protein 5.3 L Albumin 3.0 L 09/28/22 11:36 MCV MCH MCHC RDW Plt Count MPV Immature Gran % (Auto) Neut % (Auto) Lymph % (Auto) [place] % (Auto) Eos % (Auto) Baso % (Auto) Lymph # (Auto) [place] # (Auto) Eos # (Auto) Baso # (Auto) Abs Immat Gran (auto) Absolute Neuts (auto) Absolute Nucleated RBC Nucleated RBC % (auto) Anion Gap Estim Creat Clear Calc Estimated GFR POC Glucose 89 Fasting Glucose Calcium Total Bilirubin AST ALT Alkaline Phosphatase Total Protein Albumin Assessment and Plan (1) Symptomatic bradycardia: Status: Acute (2) Hematuria: Status: Acute (3) Incomplete emptying of bladder due to benign prostatic hyperplasia: Status: Acute (4) Cystitis: Status: Acute (5) Acute kidney injury superimposed on chronic kidney disease: Status: Acute Plan 67-year-old male presents emergency room today with a complaint of gross hematuria. 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 Found to have acute kidney injury in backdrop of chronic kidney disease. Patient recently admitted to [facility] secondary to abdominal pain; CT abdomen revealed a moderate volume pneumoperitoneum concerning for bowel perforation general surgery was consulted he was taken to the or emergent urgently for an ex lap with primary repair of the duodenal perforation with Amrit patch repair with PAUL drain placement.? He was admitted to the surgical ICU for blood pressure support and renal was consulted for an acute on chronic kidney failure.? Patient has never required hemodialysis.? He was weaned off pressors and transferred out of the ICU on 08/18.? Postoperative day 5 PAUL drain was noticed to have increased bloody output and was sent for IR for evaluation.? He had an upper GI study on 08/21 revealing no evidence of leak. 1. Paroxysmal atrial fibrillation with slow ventricular response status post dual-chamber pacemaker with unfortunate RV lead dislodgement.? Undergoing surgery again today. monitor on telemetry hold Eliquis at this time secondary to pacer placement....restart as per cardiology cadiology input appreciated; continue rate control meds 2. Hematuria 2/2 UTI w Klebsiella Continue IV Levaquin continue [place] strict I&Os 3. Acute kidney injury superimposed on chronic kidney disease bicarb improved follow renals/divalents nephrology following, no urgency in dialysis sodium bicarb: 1300 bid po 4. Diabetes type 2 well controlled per patient cover with sliding scale 5.Hypertension acceptable control on current therapies adjust as indicated Pneumatics Full Code Will require overnight of inpatient stay for treatment of hematuria and UTI pending surgical intervention of PPM placement. This cannot be achieved a lesser acute setting Time Spent With Patient Time: Total time managing care of this patient today ____ minutes. Quality Stroke Does the patient have a stroke diagnosis?: No VTE Prior VTE?: No VTE Risk Level:: Medical - moderate - high VTE Device Contraindication: Treatment Not Indicated VTE Drug Contraindication: N/A - Med Ordered
--- NOTE | 2022-09-28 14:02 | HO.ANESPROP2 ---
HPI - Anesthesia Eval Consult details Narrative: dislodged ppm lead PMFSH Active Problems Active Problems: All Active Problems (Updated 09/27/22 @ 15:00 by Fátima Moreau MD) Pancytopenia (Acute) Symptomatic bradycardia (Acute) Metabolic acidosis (Acute) Bradycardia (Acute) CKD (chronic kidney disease) stage 4, GFR 15-29 ml/min (Acute) Incomplete emptying of bladder due to benign prostatic hyperplasia (Acute) Afib (Acute) Hematuria (Acute) Cystitis (Acute) Acute kidney injury superimposed on chronic kidney disease (Acute) Constipation (Acute) Left leg cellulitis (Acute) Chest pain (Acute) Eczema (Acute) Diastolic heart failure (Acute) Pulmonary hypertension (Acute) SLE (systemic lupus erythematosus related syndrome) (Acute) Recurrent major depression (Acute) Anasarca (Acute) Cirrhosis (Acute) Lymphedema (Acute) Skin ulcer of multiple sites of lower extremity (Acute) Anemia (Acute) Swelling of both lower extremities (Acute) GERD (gastroesophageal reflux disease) (Acute) Abdominal distension (Acute) Chronic kidney disease (Acute) Type 2 diabetes mellitus with hyperglycemia (Acute) Osteoarthritis (Acute) Obstructive sleep apnea (Acute) Obesity (BMI 30-39.9) (Acute) Hypercholesterolemia (Acute) Peripheral vascular disease (Acute) HTN (hypertension) (Acute) COPD (chronic obstructive pulmonary disease) (Acute) Gout (Acute) Past Medical History Medical History (Updated 09/27/22 @ 15:00 by Fátima Moreau MD) Afib Anemia BPH (benign prostatic hyperplasia) Bradycardia Chronic kidney disease COPD (chronic obstructive pulmonary disease) Depression, major Diabetic retinopathy Edema Essential thrombocytopenia Fistula Gout High cholesterol HTN (hypertension) Hypercholesterolemia Lumbar degenerative disc disease Lymphedema Obesity (BMI 30-39.9) Obstructive sleep apnea Osteoarthritis Paroxysmal A-fib Peripheral neuropathy Peripheral vascular disease Pulmonary hypertension Scrotal edema Type 2 diabetes mellitus with hyperglycemia Venous stasis dermatitis Family History Family History Father Prostate cancer CVD (cardiovascular disease) Mother Hemochromatosis Brother Motor vehicle accident Sister CAD (coronary artery disease) Maternal Grandfather Myocardial infarction Family history of problems with anesthesia: No Surgical History Surgical History H/O prior ablation treatment History of bilateral cataract extraction History of carpal tunnel release History of gastric surgery History of tonsillectomy History of Problems with Anesthesia: No Social History Social History Household Members: Spouse Housing: House Alcohol intake: never Patient Tobacco Use Status: Former Tobacco user e-Cigarette/Vaping Use: Never Used Second Hand Smoke Exposure: Yes Substance Use Type: Marijuana service: No Current occupational status: retired Cognitive needs: Yes Hearing needs: Yes Vision needs: Yes Meds Allergies Allergy/AdvReac Type Severity Reaction Status Date / Time No Known Allergies Allergy Verified 09/22/22 12:56 [No Known Allergies*] Active Medications: Current Medications Acetaminophen (Acetaminophen 325 Mg Tablet) 650 mg PO Q6H PRN PRN Reason: Pain, Mild (Pain Scale 1-3) Last Admin: 09/28/22 06:26 Dose: 650 mg Albuterol Sulfate (Albuterol Sulfate 90 Mcg 8 Gm Inhaler) 2 puff INHALE Q4H PRN PRN Reason: Shortness Of Breath Or Wheezing Amlodipine Besylate (Amlodipine Besylate 5 Mg Tablet) 5 mg PO DAILY [facility]; Protocol Last Admin: 09/28/22 08:20 Dose: 5 mg Doxazosin Mesylate (Doxazosin Mesylate 2 Mg Tablet) 4 mg PO DAILY [facility] Last Admin: 09/26/22 08:00 Dose: 4 mg Ferrous Sulfate (Ferrous Sulfate 324 Mg Tablet.Dr) 324 mg PO DAILY [facility] Last Admin: 09/28/22 08:20 Dose: 324 mg Glucose (Glucose Gel 15 Gm Gel..Gram.) 15 gm PO Q15M PRN; Protocol PRN Reason: per Hypoglycemia Standing Ord. Dextrose (D10) 250 mls @ 750 mls/hr IV Q15M PRN; Protocol PRN Reason: per Hypoglycemia Standing Ord. Levofloxacin (Levaquin) 500 mg in 100 mls @ 100 mls/hr IV Q48H [facility] Last Infusion: 09/28/22 10:17 Dose: Infused Insulin Human Lispro (Insulin Lispro 100 Unit/Ml 3 Ml Vial) 0.1 - 10 unit SUBCUT QIDACHS [facility]; Protocol Last Admin: 09/28/22 11:59 Dose: Not Given Isosorbide Mononitrate (Isosorbide Mononitrate 30 Mg Tab.Er.24h) 30 mg PO DAILY [facility]; Protocol Last Admin: 09/26/22 07:59 Dose: 30 mg Ondansetron HCl (Ondansetron Hcl 4 Mg/2 Ml Vial) 4 mg IVPUSH Q8H PRN PRN Reason: Nausea and Vomiting Pharmacy Consult (Consult Rx Perform Med Rec) 1 each MISCELLANE ONCE PRN PRN Reason: Consult order Pravastatin Sodium (Pravastatin Sodium 20 Mg Tablet) 20 mg PO BEDTIME [facility] Last Admin: 09/27/22 19:58 Dose: 20 mg Salmeterol Xinafoate (Salmeterol Xinafoate 50 Mcg Blst.W.Dev) 1 puff INHALE RBID [facility] Last Admin: 09/28/22 07:30 Dose: 1 puff Sodium Bicarbonate (Sodium Bicarbonate 650 Mg Tablet) 650 mg PO QID [facility] Last Admin: 09/28/22 08:20 Dose: 650 mg Sodium Chloride (0.9 % Sodium Chloride Flush 3 Ml Syringe) 3 ml IVFLUSH QSHIFT [facility] Last Admin: 09/28/22 08:19 Dose: 3 ml Tiotropium [place] (Tiotropium [place] 18 Mcg Cap.W.Dev) 1 puff INHALE RDAILY [facility] Last Admin: 09/28/22 07:30 Dose: 1 puff Home Medications Medication Instructions Recorded Confirmed Last Taken Type calcitriol 0.5 mcg capsule 0.5 mcg PO DAILY 04/03/20 09/24/22 09/23/22 History albuterol sulfate 90 mcg/actuation 2 puff inhalation 6XD PRN 07/05/20 09/24/22 09/23/22 History aerosol inhaler (ProAir HFA) Shortness Of Breath Or Wheezing ferrous sulfate 325 mg (65 mg 325 mg PO DAILY 04/04/21 09/24/22 09/23/22 History iron) tablet sodium bicarbonate 650 mg tablet 650 mg PO QID 09/22/22 09/24/22 09/23/22 History polyethylene glycol 3350 17 gram 17 g PO DAILY PRN Constipation 09/24/22 09/24/22 Unknown History oral powder packet (Miralax) torsemide 20 mg tablet 40 mg PO BID 09/24/22 09/24/22 09/23/22 History Exam Exam Date and Time: September 28, 2022 140 Height,Weight and Vital Signs: Height 5 ft 11 in Weight 118.6 kg Last Vital Signs Temp 97.7 F 09/28/22 11:39 Pulse 86 09/28/22 11:39 Resp 20 09/28/22 11:39 BP 144/63 H 09/28/22 11:39 Pulse Ox 95 09/28/22 11:39 O2 Del Method Room Air 09/28/22 11:39 O2 Flow Rate 2 09/27/22 14:15 Pertinent Lab Results Pertinent Lab Results: Laboratory Tests 09/24/22 09/24/22 09/24/22 10:33 10:33 10:33 WBC 2.6 L RBC 2.29 L D Hgb 7.3 L D Hct 23.4 L D MCV 102.2 H MCH 31.9 MCHC 31.2 RDW 17.2 H Plt Count 77 L MPV 9.5 Immature Gran % (Auto) 0.4 Neut % (Auto) 72.9 Lymph % (Auto) 14.3 L [place] % (Auto) 11.2 H Eos % (Auto) 0.0 Baso % (Auto) 1.2 Lymph # (Auto) 0.4 L [place] # (Auto) 0.3 Eos # (Auto) 0.0 Baso # (Auto) 0.0 Abs Immat Gran (auto) 0.01 Absolute Neuts (auto) 1.9 L Absolute Nucleated RBC 0.000 Nucleated RBC % (auto) 0.0 PT 21.9 H INR 1.9 H APTT 38.6 H Sodium 143 Potassium 5.0 Chloride 113 H Carbon Dioxide 18 L Anion Gap 17 BUN 106 H Creatinine 5.01 H* Estim Creat Clear Calc 17.9 Estimated GFR 12 POC Glucose Random Glucose 77 Fasting Glucose Lactic Acid Calcium 8.0 L D Magnesium 1.9 Total Bilirubin 0.8 Direct Bilirubin 0.3 AST 12 ALT 12 Alkaline Phosphatase 131 H Total Protein 5.7 L Albumin 3.2 L Lipase 47 Urine Color Urine Appearance Urine pH Ur Specific [place] Urine Protein Urine Glucose (UA) Urine Ketones Urine Blood Urine Nitrite Ur Leukocyte Esterase Urine RBC Urine WBC Ur Squamous Epith Cells Urine Bacteria Hyaline Casts Ur Random Sodium Urine Creatinine Stool Occult Blood Influenza Type A (PCR) Influenza Type B (PCR) RSV RNA Qual (PCR) SARS-CoV-2 RNA (RT-PCR) Blood Type Antibody Screen 09/24/22 09/24/22 09/24/22 10:33 13:37 13:37 WBC RBC Hgb Hct MCV MCH MCHC RDW Plt Count MPV Immature Gran % (Auto) Neut % (Auto) Lymph % (Auto) [place] % (Auto) Eos % (Auto) Baso % (Auto) Lymph # (Auto) [place] # (Auto) Eos # (Auto) Baso # (Auto) Abs Immat Gran (auto) Absolute Neuts (auto) Absolute Nucleated RBC Nucleated RBC % (auto) PT INR APTT Sodium Potassium Chloride Carbon Dioxide Anion Gap BUN Creatinine Estim Creat Clear Calc Estimated GFR POC Glucose Random Glucose Fasting Glucose Lactic Acid Calcium Magnesium Total Bilirubin Direct Bilirubin AST ALT Alkaline Phosphatase Total Protein Albumin Lipase Urine Color Urine Appearance Urine pH Ur Specific [place] Urine Protein Urine Glucose (UA) Urine Ketones Urine Blood Urine Nitrite Ur Leukocyte Esterase Urine RBC Urine WBC Ur Squamous Epith Cells Urine Bacteria Hyaline Casts Ur Random Sodium 64.0 Urine Creatinine 70.94 Stool Occult Blood NEGATIVE Influenza Type A (PCR) NEGATIVE Influenza Type B (PCR) NEGATIVE RSV RNA Qual (PCR) NEGATIVE SARS-CoV-2 RNA (RT-PCR) NEGATIVE Blood Type Antibody Screen 09/24/22 09/24/22 09/24/22 13:37 14:15 14:15 WBC RBC Hgb Hct MCV MCH MCHC RDW Plt Count MPV Immature Gran % (Auto) Neut % (Auto) Lymph % (Auto) [place] % (Auto) Eos % (Auto) Baso % (Auto) Lymph # (Auto) [place] # (Auto) Eos # (Auto) Baso # (Auto) Abs Immat Gran (auto) Absolute Neuts (auto) Absolute Nucleated RBC Nucleated RBC % (auto) PT INR APTT Sodium Potassium Chloride Carbon Dioxide Anion Gap BUN Creatinine Estim Creat Clear Calc Estimated GFR POC Glucose Random Glucose Fasting Glucose Lactic Acid 0.7 Calcium Magnesium Total Bilirubin Direct Bilirubin AST ALT Alkaline Phosphatase Total Protein Albumin Lipase Urine Color Dark Yellow Urine Appearance Turbid Urine pH 5.5 Ur Specific [place] 1.010 Urine Protein 100 (2+) H Urine Glucose (UA) Negative Urine Ketones Negative Urine Blood Large (3+) H Urine Nitrite Negative Ur Leukocyte Esterase Large (3+) H Urine RBC >20 H Urine WBC >50 H Ur Squamous Epith Cells 0-2 Urine Bacteria 4+ Hyaline Casts 0-2 Ur Random Sodium Urine Creatinine Stool Occult Blood Influenza Type A (PCR) Influenza Type B (PCR) RSV RNA Qual (PCR) SARS-CoV-2 RNA (RT-PCR) Blood Type A Negative Antibody Screen NEGATIVE 09/24/22 09/25/22 09/25/22 23:09 05:47 05:47 WBC 3.2 L RBC 2.50 L Hgb 8.2 L Hct 25.5 L MCV 102.0 H MCH 32.8 MCHC 32.2 RDW 17.2 H Plt Count 85 L MPV 9.6 Immature Gran % (Auto) 0.3 Neut % (Auto) 72.2 Lymph % (Auto) 17.1 L [place] % (Auto) 9.8 Eos % (Auto) 0.0 Baso % (Auto) 0.6 Lymph # (Auto) 0.5 L [place] # (Auto) 0.3 Eos # (Auto) 0.0 Baso # (Auto) 0.0 Abs Immat Gran (auto) 0.01 Absolute Neuts (auto) 2.3 Absolute Nucleated RBC 0.000 Nucleated RBC % (auto) 0.0 PT INR APTT Sodium 143 Potassium 5.1 Chloride 113 H Carbon Dioxide 18 L Anion Gap 17 BUN 96 H Creatinine 4.64 H* Estim Creat Clear Calc 19.6 Estimated GFR 13 POC Glucose 106 Random Glucose 72 Fasting Glucose Lactic Acid Calcium 8.5 D Magnesium Total Bilirubin 0.7 Direct Bilirubin AST 14 ALT 13 Alkaline Phosphatase 145 H Total Protein 6.1 L Albumin 3.4 L Lipase Urine Color Urine Appearance Urine pH Ur Specific [place] Urine Protein Urine Glucose (UA) Urine Ketones Urine Blood Urine Nitrite Ur Leukocyte Esterase Urine RBC Urine WBC Ur Squamous Epith Cells Urine Bacteria Hyaline Casts Ur Random Sodium Urine Creatinine Stool Occult Blood Influenza Type A (PCR) Influenza Type B (PCR) RSV RNA Qual (PCR) SARS-CoV-2 RNA (RT-PCR) Blood Type Antibody Screen 09/25/22 09/25/22 09/25/22 06:47 11:07 16:12 WBC RBC Hgb Hct MCV MCH MCHC RDW Plt Count MPV Immature Gran % (Auto) Neut % (Auto) Lymph % (Auto) [place] % (Auto) Eos % (Auto) Baso % (Auto) Lymph # (Auto) [place] # (Auto) Eos # (Auto) Baso # (Auto) Abs Immat Gran (auto) Absolute Neuts (auto) Absolute Nucleated RBC Nucleated RBC % (auto) PT INR APTT Sodium Potassium Chloride Carbon Dioxide Anion Gap BUN Creatinine Estim Creat Clear Calc Estimated GFR POC Glucose 80 137 H 111 Random Glucose Fasting Glucose Lactic Acid Calcium Magnesium Total Bilirubin Direct Bilirubin AST ALT Alkaline Phosphatase Total Protein Albumin Lipase Urine Color Urine Appearance Urine pH Ur Specific [place] Urine Protein Urine Glucose (UA) Urine Ketones Urine Blood Urine Nitrite Ur Leukocyte Esterase Urine RBC Urine WBC Ur Squamous Epith Cells Urine Bacteria Hyaline Casts Ur Random Sodium Urine Creatinine Stool Occult Blood Influenza Type A (PCR) Influenza Type B (PCR) RSV RNA Qual (PCR) SARS-CoV-2 RNA (RT-PCR) Blood Type Antibody Screen 09/25/22 09/25/22 09/26/22 20:39 23:31 05:37 WBC 2.8 L RBC 2.39 L Hgb 7.6 L Hct 24.0 L MCV 100.4 H MCH 31.8 MCHC 31.7 RDW 17.2 H Plt Count 76 L MPV 9.7 Immature Gran % (Auto) 0.4 Neut % (Auto) 65.9 Lymph % (Auto) 19.2 L [place] % (Auto) 13.4 H Eos % (Auto) 0.0 Baso % (Auto) 1.1 Lymph # (Auto) 0.5 L [place] # (Auto) 0.4 Eos # (Auto) 0.0 Baso # (Auto) 0.0 Abs Immat Gran (auto) 0.01 Absolute Neuts (auto) 1.8 L Absolute Nucleated RBC 0.000 Nucleated RBC % (auto) 0.0 PT INR APTT Sodium Potassium Chloride Carbon Dioxide Anion Gap BUN Creatinine Estim Creat Clear Calc Estimated GFR POC Glucose 104 Random Glucose Fasting Glucose Lactic Acid Calcium Magnesium 1.7 Total Bilirubin Direct Bilirubin AST ALT Alkaline Phosphatase Total Protein Albumin Lipase Urine Color Urine Appearance Urine pH Ur Specific [place] Urine Protein Urine Glucose (UA) Urine Ketones Urine Blood Urine Nitrite Ur Leukocyte Esterase Urine RBC Urine WBC Ur Squamous Epith Cells Urine Bacteria Hyaline Casts Ur Random Sodium Urine Creatinine Stool Occult Blood Influenza Type A (PCR) Influenza Type B (PCR) RSV RNA Qual (PCR) SARS-CoV-2 RNA (RT-PCR) Blood Type Antibody Screen 09/26/22 09/26/22 09/26/22 05:37 07:11 11:07 WBC RBC Hgb Hct MCV MCH MCHC RDW Plt Count MPV Immature Gran % (Auto) Neut % (Auto) Lymph % (Auto) [place] % (Auto) Eos % (Auto) Baso % (Auto) Lymph # (Auto) [place] # (Auto) Eos # (Auto) Baso # (Auto) Abs Immat Gran (auto) Absolute Neuts (auto) Absolute Nucleated RBC Nucleated RBC % (auto) PT INR APTT Sodium 143 Potassium 5.2 H Chloride 114 H Carbon Dioxide 16 L Anion Gap 18 BUN 100 H Creatinine 4.88 H* Estim Creat Clear Calc 18.7 Estimated GFR 12 POC Glucose 74 101 Random Glucose 75 Fasting Glucose Lactic Acid Calcium 8.2 L Magnesium Total Bilirubin 0.6 Direct Bilirubin AST 12 ALT 12 Alkaline Phosphatase 134 H Total Protein 5.5 L Albumin 3.1 L Lipase Urine Color Urine Appearance Urine pH Ur Specific [place] Urine Protein Urine Glucose (UA) Urine Ketones Urine Blood Urine Nitrite Ur Leukocyte Esterase Urine RBC Urine WBC Ur Squamous Epith Cells Urine Bacteria Hyaline Casts Ur Random Sodium Urine Creatinine Stool Occult Blood Influenza Type A (PCR) Influenza Type B (PCR) RSV RNA Qual (PCR) SARS-CoV-2 RNA (RT-PCR) Blood Type Antibody Screen 09/26/22 09/26/22 09/27/22 16:21 20:19 06:11 WBC 3.0 L RBC 2.43 L Hgb 7.7 L Hct 24.4 L MCV 100.4 H MCH 31.7 MCHC 31.6 RDW 16.9 H Plt Count 72 L MPV 10.0 Immature Gran % (Auto) 0.3 Neut % (Auto) 66.6 Lymph % (Auto) 19.4 L [place] % (Auto) 13.0 H Eos % (Auto) 0.0 Baso % (Auto) 0.7 Lymph # (Auto) 0.6 L [place] # (Auto) 0.4 Eos # (Auto) 0.0 Baso # (Auto) 0.0 Abs Immat Gran (auto) 0.01 Absolute Neuts (auto) 2.0 Absolute Nucleated RBC 0.000 Nucleated RBC % (auto) 0.0 PT INR APTT Sodium Potassium Chloride Carbon Dioxide Anion Gap BUN Creatinine Estim Creat Clear Calc Estimated GFR POC Glucose 95 95 Random Glucose Fasting Glucose Lactic Acid Calcium Magnesium Total Bilirubin Direct Bilirubin AST ALT Alkaline Phosphatase Total Protein Albumin Lipase Urine Color Urine Appearance Urine pH Ur Specific [place] Urine Protein Urine Glucose (UA) Urine Ketones Urine Blood Urine Nitrite Ur Leukocyte Esterase Urine RBC Urine WBC Ur Squamous Epith Cells Urine Bacteria Hyaline Casts Ur Random Sodium Urine Creatinine Stool Occult Blood Influenza Type A (PCR) Influenza Type B (PCR) RSV RNA Qual (PCR) SARS-CoV-2 RNA (RT-PCR) Blood Type Antibody Screen 09/27/22 09/27/22 09/27/22 06:11 07:19 14:22 WBC RBC Hgb Hct MCV MCH MCHC RDW Plt Count MPV Immature Gran % (Auto) Neut % (Auto) Lymph % (Auto) [place] % (Auto) Eos % (Auto) Baso % (Auto) Lymph # (Auto) [place] # (Auto) Eos # (Auto) Baso # (Auto) Abs Immat Gran (auto) Absolute Neuts (auto) Absolute Nucleated RBC Nucleated RBC % (auto) PT INR APTT Sodium 141 Potassium 4.8 Chloride 110 H Carbon Dioxide 21 L Anion Gap 15 BUN 95 H Creatinine 4.68 H* Estim Creat Clear Calc 19.5 Estimated GFR 12 POC Glucose 80 78 Random Glucose 80 Fasting Glucose Lactic Acid Calcium 8.2 L Magnesium Total Bilirubin 0.5 Direct Bilirubin AST 11 ALT 10 Alkaline Phosphatase 122 H Total Protein 5.3 L Albumin 2.9 L Lipase Urine Color Urine Appearance Urine pH Ur Specific [place] Urine Protein Urine Glucose (UA) Urine Ketones Urine Blood Urine Nitrite Ur Leukocyte Esterase Urine RBC Urine WBC Ur Squamous Epith Cells Urine Bacteria Hyaline Casts Ur Random Sodium Urine Creatinine Stool Occult Blood Influenza Type A (PCR) Influenza Type B (PCR) RSV RNA Qual (PCR) SARS-CoV-2 RNA (RT-PCR) Blood Type Antibody Screen 09/27/22 09/27/22 09/28/22 16:41 19:53 06:23 WBC 3.6 L RBC 2.48 L Hgb 8.0 L Hct 25.3 L MCV 102.0 H MCH 32.3 MCHC 31.6 RDW 16.7 H Plt Count 77 L MPV 9.5 Immature Gran % (Auto) 0.6 H Neut % (Auto) 75.0 H Lymph % (Auto) 13.2 L [place] % (Auto) 10.4 Eos % (Auto) 0.0 Baso % (Auto) 0.8 Lymph # (Auto) 0.5 L [place] # (Auto) 0.4 Eos # (Auto) 0.0 Baso # (Auto) 0.0 Abs Immat Gran (auto) 0.02 Absolute Neuts (auto) 2.7 Absolute Nucleated RBC 0.000 Nucleated RBC % (auto) 0.0 PT INR APTT Sodium Potassium Chloride Carbon Dioxide Anion Gap BUN Creatinine Estim Creat Clear Calc Estimated GFR POC Glucose 80 91 Random Glucose Fasting Glucose Lactic Acid Calcium Magnesium Total Bilirubin Direct Bilirubin AST ALT Alkaline Phosphatase Total Protein Albumin Lipase Urine Color Urine Appearance Urine pH Ur Specific [place] Urine Protein Urine Glucose (UA) Urine Ketones Urine Blood Urine Nitrite Ur Leukocyte Esterase Urine RBC Urine WBC Ur Squamous Epith Cells Urine Bacteria Hyaline Casts Ur Random Sodium Urine Creatinine Stool Occult Blood Influenza Type A (PCR) Influenza Type B (PCR) RSV RNA Qual (PCR) SARS-CoV-2 RNA (RT-PCR) Blood Type Antibody Screen 09/28/22 09/28/22 09/28/22 06:23 07:35 11:36 WBC RBC Hgb Hct MCV MCH MCHC RDW Plt Count MPV Immature Gran % (Auto) Neut % (Auto) Lymph % (Auto) [place] % (Auto) Eos % (Auto) Baso % (Auto) Lymph # (Auto) [place] # (Auto) Eos # (Auto) Baso # (Auto) Abs Immat Gran (auto) Absolute Neuts (auto) Absolute Nucleated RBC Nucleated RBC % (auto) PT INR APTT Sodium 141 Potassium 4.9 Chloride 109 H Carbon Dioxide 22 Anion Gap 15 BUN 91 H Creatinine 4.59 H* Estim Creat Clear Calc 19.8 Estimated GFR 13 POC Glucose 77 89 Random Glucose Fasting Glucose 77 Lactic Acid Calcium 8.2 L Magnesium Total Bilirubin 0.6 Direct Bilirubin AST 10 ALT 5 Alkaline Phosphatase 116 Total Protein 5.3 L Albumin 3.0 L Lipase Urine Color Urine Appearance Urine pH Ur Specific [place] Urine Protein Urine Glucose (UA) Urine Ketones Urine Blood Urine Nitrite Ur Leukocyte Esterase Urine RBC Urine WBC Ur Squamous Epith Cells Urine Bacteria Hyaline Casts Ur Random Sodium Urine Creatinine Stool Occult Blood Influenza Type A (PCR) Influenza Type B (PCR) RSV RNA Qual (PCR) SARS-CoV-2 RNA (RT-PCR) Blood Type Antibody Screen Airway Mallampati Class: II TM Dist: >3cm Partial: Upper Loose/Missing/Broken Teeth: No Heart: RRR Lungs: CTA Assessment and Plan Final Anesthetic Review Family History of Problems with Anesthesia: No History of Problems with Anesthesia: No ASA Class: IV Final Preanesthetic Review: No Changes in Pt Med Stat, Meds/Allgs Chart Reviewed, Consent Obtained/Reviewed and Anes Risks/Benef Reviewed Patient Risk: High Procedure Risk: Low Anesthetic Plan Anesthetic Plan: MAC: Disposition: Standard PACU
--- NOTE | 2022-09-28 15:23 | PM.PNNEP ---
Subjective Subjective Date of Service: 09/28/22 Principal diagnosis: Bradycardia Interval history: No acute cardiac events overnight. Monitor atrial fibrillation with slow ventricular response (50-60). No focal complaints. 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 Review meds and labs Of note in 2020 has pos anti-ds DNA Physical Exam Vital Signs: Vital Signs: Last Vital Signs Temp 97.7 F 09/28/22 11:39 Pulse 86 09/28/22 11:39 Resp 20 09/28/22 11:39 BP 144/63 H 09/28/22 11:39 Pulse Ox 95 09/28/22 11:39 O2 Del Method Room Air 09/28/22 11:39 O2 Flow Rate 2 09/27/22 14:15 BMI result Body Mass Index 36.4 Objective Data Labs 09/28/22 06:23 09/28/22 06:23 Labs: Laboratory Results - last 24 hr 09/27/22 09/27/22 09/28/22 16:41 19:53 06:23 WBC 3.6 L RBC 2.48 L Hgb 8.0 L Hct 25.3 L MCV 102.0 H MCH 32.3 MCHC 31.6 RDW 16.7 H Plt Count 77 L MPV 9.5 Immature Gran % (Auto) 0.6 H Neut % (Auto) 75.0 H Lymph % (Auto) 13.2 L [place] % (Auto) 10.4 Eos % (Auto) 0.0 Baso % (Auto) 0.8 Lymph # (Auto) 0.5 L [place] # (Auto) 0.4 Eos # (Auto) 0.0 Baso # (Auto) 0.0 Abs Immat Gran (auto) 0.02 Absolute Neuts (auto) 2.7 Absolute Nucleated RBC 0.000 Nucleated RBC % (auto) 0.0 Sodium Potassium Chloride Carbon Dioxide Anion Gap BUN Creatinine Estim Creat Clear Calc Estimated GFR POC Glucose 80 91 Fasting Glucose Calcium Total Bilirubin AST ALT Alkaline Phosphatase Total Protein Albumin 09/28/22 09/28/22 09/28/22 06:23 07:35 11:36 WBC RBC Hgb Hct MCV MCH MCHC RDW Plt Count MPV Immature Gran % (Auto) Neut % (Auto) Lymph % (Auto) [place] % (Auto) Eos % (Auto) Baso % (Auto) Lymph # (Auto) [place] # (Auto) Eos # (Auto) Baso # (Auto) Abs Immat Gran (auto) Absolute Neuts (auto) Absolute Nucleated RBC Nucleated RBC % (auto) Sodium 141 Potassium 4.9 Chloride 109 H Carbon Dioxide 22 Anion Gap 15 BUN 91 H Creatinine 4.59 H* Estim Creat Clear Calc 19.8 Estimated GFR 13 POC Glucose 77 89 Fasting Glucose 77 Calcium 8.2 L Total Bilirubin 0.6 AST 10 ALT 5 Alkaline Phosphatase 116 Total Protein 5.3 L Albumin 3.0 L Microbiology Microbiology Results: Microbiology 09/24/22 14:25 Blood - Venous Blood Culture - Preliminary No growth after 48 hours. 09/24/22 14:15 Blood - Venous Blood Culture - Preliminary No growth after 48 hours. 09/24/22 14:03 Urine clean catch - Urine keys top Urine Culture - Final Klebsiella oxytoca Procedures Date of Service Date of Service: 09/28/22 Assessment & Plan Assessment and plan (1) Acute kidney injury superimposed on chronic kidney disease: Status: Acute (2) CKD (chronic kidney disease) stage 4, GFR 15-29 ml/min: Status: Acute (3) Cystitis: Status: Acute (4) Hematuria: Status: Acute (5) SLE (systemic lupus erythematosus related syndrome): Status: Acute (6) Cirrhosis: Status: Acute (7) Pancytopenia: Status: Acute (8) Symptomatic bradycardia: Status: Acute (9) Metabolic acidosis: Status: Acute Plan Pt followed by [facility] with advanced CKD, prior hx of SLE with pos ds DNA 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 (1) Acute kidney injury superimposed on chronic kidney disease: ?Status:?Acute ?Assessment and Plan: CARY occurring in the setting of bradycardia; may be the cause of renal hypoperfusion; getting paer Prerenal CARY exacerbated by presence of raas casey and outflow issues (2) CKD (chronic kidney disease) stage 4, GFR 15-29 ml/min: ?Status:?Acute ?Assessment and Plan: Carries diagnosis of SLE , cirrhosis and DM II; stage 4/5 CD (3) Hematuria: ?Status:?Acute ?Assessment and Plan: ?related to traumatic garcia placement (4) Type 2 diabetes mellitus with hyperglycemia: ?Status:?Acute (5) Metabolic acidosis: ?Status:?Acute ?Assessment and Plan: Due to renal failure : both nonAG and AG Plan Pt with worsening kidney function, creaat 4.8 and BUN 100; nonoliguric; Potassium and acid/base status improved Could come to require dialysis but no urgent need today Pacer today may improve renal perfusion; HR quite low sodium bicarb: 1300 bid po Low K diet Time Spent With Patient Time: Total time managing care of this patient today ____ minutes. Progress Note: Quality Stroke Does the patient have a stroke diagnosis?: No
[2022-09-28 15:57] LABS: Glucose, Whole Blood 71 mg/dL (60-115)
--- NOTE | 2022-09-28 16:06 | W.PM.OPN ---
Operative Note Operative Note Date of Service: 09/28/22 Narrative: and Dr. Moreau dictating what I thought would be a right ventricular lead repositioning because based on the morning x-ray it looked like the lead despite the excellent capture and stable impedance and excellent sensing with identical numbers it looked like the lead tip was down in the right ventricular apex which radiology agreed with but under fluoroscopy with after the wound was was opened the lead was detached was placed on the on the interrogator the numbers were excellent and position looked like it was the original position a so we tested it with maneuvers deep breathing and and on i.e. then re-sutured delete back down to the pectoral muscle and irrigated the wound and closed in 3 layers in including 4-0 sutures to the skin sterilely dressed patient returned to his room in the postoperative chest x-ray looks excellent so and retrospect there was never a true did lead dislodge it was really an artifact of the x-ray technique
[2022-09-28] MEDS: Pravastatin Sodium 20 MG TABLET PO (20:57)
[2022-09-28 21:12] LABS: Glucose, Whole Blood 96 mg/dL (60-115)
[2022-09-29] VITALS (8 sets, daily range): BP systolic 121–145; BP diastolic 59–69; PULSE 72–90; RESP 14–20; TEMP 36.4–37.1; O2SAT 94–98
[2022-09-29] MEDS: 0.9 % Sodium Chloride Flush 3 ML SYRINGE IVFLUSH ×3 (00:53→18:38)
[2022-09-29 06:46] LABS: Hematocrit 26.5 % (42.0-52.0); Hemoglobin 8.2 g/dl (14.0-18.0); Mean Corpuscular HGB Conc 30.9 g/dl (31.0-36.0); Mean Corpuscular Volume 103.5 fL (80.0-98.0); Mean Platelet Volume 9.8 fL (9.4-12.4); Red Blood Count 2.56 X10*6/uL (4.60-5.80); Red Cell Distribution Width 16.6 % (11.0-16.0); White Blood Count 4.1 X10*3/uL (4.8-10.8)
[2022-09-29 06:49] LABS: Platelet Count 70 X10*3/uL (160-400)
[2022-09-29 07:23] LABS: Anion Gap 14 (12-20); Blood Urea Nitrogen 87 mg/dL (9-16); Calcium 8.4 mg/dL (8.4-10.2); Carbon Dioxide 23 mmol/L (22-29); Chloride 109 mmol/L (96-108); Estimated Glomerular Filt Rate 13; Glucose Random 72 mg/dL (60-115); Potassium 5.1 mmol/L (3.3-5.1); Sodium 141 mmol/L (135-145)
[2022-09-29] MEDS: Salmeterol Xinafoate 50 MCG BLST.W.DEV 1 PUFF INHALE ×2 (07:31→20:18)
[2022-09-29 07:49] LABS: Glucose, Whole Blood 67 mg/dL (60-115)
[2022-09-29] MEDS: Ferrous Sulfate 324 MG TABLET.DR PO (08:34)
[2022-09-29] MEDS: amLODIPine Besylate 5 MG TABLET PO (08:34)
[2022-09-29] MEDS: Sodium Bicarbonate 650 MG TABLET PO ×4 (08:34→22:36)
--- NOTE | 2022-09-29 10:24 | P.PNIM_ITS ---
Subjective Subjective Date of Service: 09/29/22 Interval History: Seen and evaluated this morning paced rhythm with PACs and underlying Afib , rate controlled Urine clear Cr still elevated at 4.6 To start PT today Review of Systems Review of Systems: Yes all other systems are reviewed and are negative Physical Exam Vital Signs: Vital Signs: Last Vital Signs Temp 98.7 F 09/29/22 07:15 Pulse 90 09/29/22 07:33 Resp 16 09/29/22 07:33 BP 141/64 H 09/29/22 07:15 Pulse Ox 94 09/29/22 07:15 O2 Del Method Room Air 09/29/22 07:15 O2 Flow Rate 2 09/27/22 14:15 BMI result Body Mass Index 36.4 Const: Other: Constitutional : Awake, interactive, not in distress Neck : Normal inspection, Supple Cardiovascular :irregular , no JVP, no lower extremity edema Respiratory : good bilateral air entry, no crackles, wheezes or rhonchi Gastrointestinal: soft, lax, Normal bowel sounds, Non tender Skin : Warm, Dry Urology; garcia in place, no hematuria Neurological : Alert & oriented x3, No focal deficit Objective Data Active Medications Acetaminophen (Acetaminophen 325 Mg Tablet) 650 mg PO Q6H PRN PRN Reason: Pain, Mild (Pain Scale 1-3) Last Admin: 09/28/22 06:26 Dose: 650 mg Documented By: ALHAJI Albuterol Sulfate (Albuterol Sulfate 90 Mcg 8 Gm Inhaler) 2 puff INHALE Q4H PRN PRN Reason: Shortness Of Breath Or Wheezing Amlodipine Besylate (Amlodipine Besylate 5 Mg Tablet) 5 mg PO DAILY REPLACED BY [facility]; Protocol Last Admin: 09/29/22 08:34 Dose: 5 mg Documented By: LUCILA Doxazosin Mesylate (Doxazosin Mesylate 2 Mg Tablet) 4 mg PO DAILY REPLACED BY [facility] Last Admin: 09/26/22 08:00 Dose: 4 mg Documented By: IKE Ferrous Sulfate (Ferrous Sulfate 324 Mg Tablet.) 324 mg PO DAILY REPLACED BY [facility] Last Admin: 09/29/22 08:34 Dose: 324 mg Documented By: LUCILA Glucose (Glucose Gel 15 Gm Gel..Gram.) 15 gm PO Q15M PRN; Protocol PRN Reason: per Hypoglycemia Standing Ord. Dextrose (D10) 250 mls @ 750 mls/hr IV Q15M PRN; Protocol PRN Reason: per Hypoglycemia Standing Ord. Levofloxacin (Levaquin) 500 mg in 100 mls @ 100 mls/hr IV Q48H REPLACED BY [facility] Last Infusion: 09/28/22 10:17 Dose: 0 mls/hr Documented By: USMAN Insulin Human Lispro (Insulin Lispro 100 Unit/Ml 3 Ml Vial) 0.1 - 10 unit SUBCUT QIDACHS REPLACED BY [facility]; Protocol Last Admin: 09/29/22 08:02 Dose: Not Given Documented By: LUCILA Non-Admin Reason: No Insulin Coverage Isosorbide Mononitrate (Isosorbide Mononitrate 30 Mg Tab.Er.24h) 30 mg PO DAILY REPLACED BY [facility]; Protocol Last Admin: 09/26/22 07:59 Dose: 30 mg Documented By: IKE Ondansetron HCl (Ondansetron Hcl 4 Mg/2 Ml Vial) 4 mg IVPUSH Q8H PRN PRN Reason: Nausea and Vomiting Pharmacy Consult (Consult Rx Perform Med Rec) 1 each MISCELLANE ONCE PRN PRN Reason: Consult order Pravastatin Sodium (Pravastatin Sodium 20 Mg Tablet) 20 mg PO BEDTIME REPLACED BY [facility] Last Admin: 09/28/22 20:57 Dose: 20 mg Documented By: CAITY Salmeterol Xinafoate (Salmeterol Xinafoate 50 Mcg Blst.W.Dev) 1 puff INHALE RBI D REPLACED BY [facility] Last Admin: 09/29/22 07:31 Dose: 1 puff Documented By: CRYSTAL Sodium Bicarbonate (Sodium Bicarbonate 650 Mg Tablet) 650 mg PO QID REPLACED BY [facility] Last Admin: 09/29/22 08:34 Dose: 650 mg Documented By: LUCILA Sodium Chloride (0.9 % Sodium Chloride Flush 3 Ml Syringe) 3 ml IVFLUSH QSHIFT REPLACED BY [facility] Last Admin: 09/29/22 08:34 Dose: 3 ml Documented By: LUCILA Tiotropium Wetmore (Tiotropium Wetmore 18 Mcg Cap.W.Dev) 1 puff INHALE RDAILY REPLACED BY [facility] Last Admin: 09/29/22 07:31 Dose: 1 puff Documented By: CRYSTAL Labs 09/29/22 06:06 09/29/22 05:37 Labs: Laboratory Results - last 24 hr 09/28/22 09/28/22 09/28/22 11:36 15:52 20:57 MCV MCH MCHC RDW Plt Count MPV Absolute Nucleated RBC Nucleated RBC % (auto) Anion Gap Estim Creat Clear Calc Estimated GFR POC Glucose 89 71 96 Random Glucose Calcium 09/29/22 09/29/22 09/29/22 05:37 06:06 07:15 MCV 103.5 H MCH 32.0 MCHC 30.9 L RDW 16.6 H Plt Count 70 L MPV 9.8 Absolute Nucleated RBC 0.000 Nucleated RBC % (auto) 0.0 Anion Gap 14 Estim Creat Clear Calc 20.0 Estimated GFR 13 POC Glucose 67 Random Glucose 72 Calcium 8.4 Assessment and Plan (1) Pancytopenia: Status: Acute (2) Symptomatic bradycardia: Status: Acute (3) Acute kidney injury superimposed on chronic kidney disease: Status: Acute Plan 67-year-old male presents emergency room today with a complaint of gross hematuria. 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 Found to have acute kidney injury in backdrop of chronic kidney disease. Patient recently admitted to [facility] secondary to abdominal p ain; CT abdomen revealed a moderate volume pneumoperitoneum concerning for bowel perforation general surgery was consulted he was taken to the or emergent urgently for an ex lap with primary repair of the duodenal perforation with Amrit patch repair with PAUL drain placement.? He was admitted to the surgical ICU for blood pressure support and renal was consulted for an acute on chronic kidney failure.? Patient has never required hemodialysis.? He was weaned off pressors and transferred out of the ICU on 08/18.? Postoperative day 5 PAUL drain was noticed to have increased bloody output and was sent for IR for evaluation.? He had an upper GI study on 08/21 revealing no evidence of leak. 1. Paroxysmal atrial fibrillation with slow ventricular response status post dual-chamber pacemaker with reeval, no dislodgement noted monitor on telemetry restart eliquis as per cardiology, to discuss with patient cadiology input appreciated; continue rate control meds 2. Hematuria 2/2 UTI w Klebsiella Continue PO Levaquin continue Garcia strict I&Os 3. Acute kidney injury superimposed on chronic kidney disease bicarb improved follow renals/divalents nephrology following, no urgency in dialysis sodium bicarb: 1300 bid po 4. Diabetes type 2 well controlled per patient cover with sliding scale 5.Hypertension acceptable control on current therapies adjust as indicated Pneumatics Full Code Will require overnight of inpatient stay for treatment of hematuria and UTI pending PT eval for safe discharge plan. This cannot be achieved a lesser acute setting Time Spent With Patient Time: Total time managing care of this patient today ____ minutes. Quality Stroke Does the patient have a stroke diagnosis?: No VTE Prior VTE?: No VTE Risk Level:: Medical - moderate - high VTE Device Contraindication: Treatment Not Indicated VTE Drug Contraindication: N/A - Med Ordered
[2022-09-29] MEDS: Metoprolol Tartrate 12.5 MG HALFTAB PO ×2 (11:05→22:36)
--- NOTE | 2022-09-29 11:42 | PM.PNNEP ---
Subjective Subjective Date of Service: 09/30/22 Principal diagnosis: Bradycardia Interval history: Seen and evaluated this morning paced rhythm with PACs and underlying Afib , rate controlled Urine clear Cr still elevated at 4.6 To start PT today Physical Exam Vital Signs: Vital Signs: Last Vital Signs Temp 98.6 F 09/29/22 11:37 Pulse 84 09/29/22 11:37 Resp 20 09/29/22 11:37 BP 121/59 L 09/29/22 11:37 Pulse Ox 96 09/29/22 11:37 O2 Del Method Room Air 09/29/22 11:37 O2 Flow Rate 2 09/27/22 14:15 BMI result Body Mass Index 36.4 Const: Other: Awake alert oriented x3 no acute distress General: cooperative, comfortable, no acute distress, alert, awake and tired appearing Nutritional Appearance: obese Orientation/consciousness: patient oriented x3 HEENT: Head: Yes normocephalic and Yes atraumatic Face and sinus: Yes normal facial exam Mouth: moist mucous membranes Eyes: EOM: EOMs intact bilaterally Neck: Neck: Yes normal visual inspection, Yes trachea midline, Yes supple and Yes no JVD Chest: Chest palpation & inspection: normal inspection of the chest Resp: Other: Clear to auscultation bilaterally no rales rhonchi or wheezes Effort & Inspection: normal respiratory effort, able to speak in complete sentences and no respiratory distress Auscultation: clear to auscultation bilaterally and diminished lung sounds Cardio: Other: No S4; positive S1-S2; no S3 murmurs rubs or gallops. Irregularly irregular Jugular venous distension: no JVD Rate: bradycardic Rhythm: regular rhythm and abnormal rhythm irregularly irregular Heart sounds: S1 normal heart sound present, S2 normal heart sound present, no click, no gallops and no murmurs GI: Other: Soft nontender nondistended normoactive bowel sounds Inspection: Yes normal to inspection Palpation (GI): Soft to palpation Auscultation: normal bowel sounds Back/Spine/Pelvis: Cervical Spine: normal cervical lordosis Thoracic/Lumbar Spine: thoracic and lumbar spine normal to inspection Skin: General skin exam: no rashes or lesions noted Neuro: General: patient oriented x3, tone normal, moves all extremities and no focal motor deficits Extrem: Other: Chronic venous stasis changes bilateral lower extremity Objective Data Labs 09/29/22 06:06 09/29/22 05:37 Labs: Laboratory Results - last 24 hr 09/28/22 09/28/22 09/28/22 11:36 15:52 20:57 WBC RBC Hgb Hct MCV MCH MCHC RDW Plt Count MPV Absolute Nucleated RBC Nucleated RBC % (auto) Sodium Potassium Chloride Carbon Dioxide Anion Gap BUN Creatinine Estim Creat Clear Calc Estimated GFR POC Glucose 89 71 96 Random Glucose Calcium 09/29/22 09/29/22 09/29/22 05:37 06:06 07:15 WBC 4.1 L RBC 2.56 L Hgb 8.2 L Hct 26.5 L MCV 103.5 H MCH 32.0 MCHC 30.9 L RDW 16.6 H Plt Count 70 L MPV 9.8 Absolute Nucleated RBC 0.000 Nucleated RBC % (auto) 0.0 Sodium 141 Potassium 5.1 Chloride 109 H Carbon Dioxide 23 Anion Gap 14 BUN 87 H Creatinine 4.56 H* Estim Creat Clear Calc 20.0 Estimated GFR 13 POC Glucose 67 Random Glucose 72 Calcium 8.4 Microbiology Microbiology Results: Microbiology 09/24/22 14:25 Blood - Venous Blood Culture - Preliminary No growth after 48 hours. 09/24/22 14:15 Blood - Venous Blood Culture - Preliminary No growth after 48 hours. 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 (1) Acute kidney injury superimposed on chronic kidney disease: ?Status:?Acute ?Assessment and Plan: CARY occurring in the setting of bradycardia; may be the cause of renal hypoperfusion; getting paer Prerenal CARY exacerbated by presence of raas casey and outflow issues (2) CKD (chronic kidney disease) stage 4, GFR 15-29 ml/min: ?Status:?Acute ?Assessment and Plan: Carries diagnosis of SLE , cirrhosis and DM II; stage 4/5 CD (3) Hematuria: ?Status:?Acute ?Assessment and Plan: ?related to traumatic garcia placement (4) Type 2 diabetes mellitus with hyperglycemia: ?Status:?Acute (5) Metabolic acidosis: ?Status:?Acute ?Assessment and Plan: Due to renal failure : both nonAG and AG Plan Pt with worsening kidney function, creat 4.8 and BUN 100; nonoliguric; Potassium and acid/base status improved Could come to require dialysis but no urgent need Pacer today may improve renal perfusion; HR quite low sodium bicarb: 1300 bid po Low K diet Continue to hold diuretics and ARB for now. Time Spent With Patient Time: Total time managing care of this patient today ____ minutes. Progress Note: Quality Stroke Does the patient have a stroke diagnosis?: No
--- NOTE | 2022-09-29 11:47 | MHC.CM.PN ---
PER PHYSICAL THERAPY PT RECOMMENDED HOME W/SERVICES, [facility]NA REFERRAL SENT TO [facility], CM WILL CONT TO FOLLOW D/C NEEDS.
[2022-09-29 12:07] LABS: Glucose, Whole Blood 105 mg/dL (60-115)
--- NOTE | 2022-09-29 13:52 | HO.POSTANES ---
Post Anesthesia Evaluation Post Anesthesia Evaluation Vital Signs: Vital Signs Temp Pulse Resp BP Pulse Ox O2 Del Method 09/29/22 11:48 84 121/59 L 96 09/29/22 11:37 98.6 F 84 20 121/59 L 96 Room Air 09/29/22 07:33 90 16 09/29/22 07:15 98.7 F 90 17 141/64 H 94 Room Air 09/29/22 03:20 98 F 89 20 139/60 97 Room Air Anesthesia: General LMA Mental Status: Awake Pain Control: Satisfactory Nausea/Vomiting: None Hydration: Adequate Anesthesia-Related Issues: No Anes. Related Issues
[2022-09-29] MEDS: Apixaban 2.5 MG TABLET PO ×2 (14:19→22:36)
[2022-09-29 17:22] LABS: Glucose, Whole Blood 99 mg/dL (60-115)
[2022-09-29] MEDS: Pravastatin Sodium 20 MG TABLET PO (22:36)
[2022-09-30 03:34] VITALS: BP 132/64; PULSE 90; RESP 14; TEMP 37; O2SAT 98
[2022-09-30 06:58] LABS: Glucose, Whole Blood 104 mg/dL (60-115)
[2022-09-30 07:13] LABS: Hematocrit 25.7 % (42.0-52.0); Hemoglobin 8.2 g/dl (14.0-18.0); Mean Corpuscular HGB Conc 31.9 g/dl (31.0-36.0); Mean Corpuscular Hemoglobin 32.8 pg (27.0-33.0); Mean Corpuscular Volume 102.8 fL (80.0-98.0); Mean Platelet Volume 9.9 fL (9.4-12.4); Red Cell Distribution Width 16.4 % (11.0-16.0); White Blood Count 4.4 X10*3/uL (4.8-10.8)
[2022-09-30 07:27] VITALS: BP 128/62; PULSE 95; RESP 20; TEMP 36.8; O2SAT 97
[2022-09-30 07:27] LABS: Platelet Count 68 X10*3/uL (160-400)
[2022-09-30 07:35] LABS: Glucose, Whole Blood 81 mg/dL (60-115)
[2022-09-30] MEDS: Salmeterol Xinafoate 50 MCG BLST.W.DEV 1 PUFF INHALE (07:41)
[2022-09-30 07:44] VITALS: PULSE 71; RESP 16
[2022-09-30 07:44] LABS: Anion Gap 14 (12-20); Blood Urea Nitrogen 81 mg/dL (9-16); Calcium 8.4 mg/dL (8.4-10.2); Carbon Dioxide 24 mmol/L (22-29); Chloride 110 mmol/L (96-108); Creatinine Clr Calc Pharmacy 20.9; Estimated Glomerular Filt Rate 14; Glucose Random 76 mg/dL (60-115); Potassium 4.7 mmol/L (3.3-5.1); Sodium 143 mmol/L (135-145)
[2022-09-30] MEDS: levoFLOXacin 500 MG TABLET PO ×2 (09:41→09:47)
[2022-09-30] MEDS: Metoprolol Tartrate 12.5 MG HALFTAB PO ×2 (09:41→09:49)
[2022-09-30] MEDS: Ferrous Sulfate 324 MG TABLET.DR PO ×2 (09:41→09:48)
[2022-09-30] MEDS: amLODIPine Besylate 5 MG TABLET PO ×2 (09:41→09:47)
[2022-09-30] MEDS: Sodium Bicarbonate 650 MG TABLET PO ×2 (09:41→09:48)
[2022-09-30] MEDS: 0.9 % Sodium Chloride Flush 3 ML SYRINGE IVFLUSH (09:41)
[2022-09-30] MEDS: Apixaban 2.5 MG TABLET PO (09:59)
[2022-09-30 10:49] VITALS: PULSE 71
[2022-09-30 10:54] VITALS: BP 136/60; PULSE 77; RESP 20; TEMP 37; O2SAT 98
--- NOTE | 2022-09-30 10:54 | PM.PNNEP ---
Subjective Subjective Date of Service: 10/02/22 Principal diagnosis: Bradycardia Interval history: Events noted Physical Exam Vital Signs: Vital Signs: Last Vital Signs Temp 98.3 F 09/30/22 07:27 Pulse 71 09/30/22 10:49 Resp 16 09/30/22 07:44 BP 128/62 09/30/22 07:27 Pulse Ox 97 09/30/22 07:27 O2 Del Method Room Air 09/30/22 07:27 O2 Flow Rate 2 09/27/22 14:15 BMI result Body Mass Index 36.4 Const: General: cooperative, comfortable, no acute distress, alert, awake and tired appearing Nutritional Appearance: obese Orientation/consciousness: patient oriented x3 HEENT: Head: Yes normocephalic and Yes atraumatic Face and sinus: Yes normal facial exam Mouth: moist mucous membranes Neck: Neck: Yes normal visual inspection, Yes trachea midline, Yes supple and Yes no JVD Chest: Chest palpation & inspection: normal inspection of the chest Resp: Other: Clear to auscultation bilaterally no rales rhonchi or wheezes Effort & Inspection: normal respiratory effort, able to speak in complete sentences and no respiratory distress Auscultation: clear to auscultation bilaterally and diminished lung sounds Cardio: Jugular venous distension: no JVD Rate: bradycardic Rhythm: regular rhythm and abnormal rhythm irregularly irregular Heart sounds: S1 normal heart sound present, S2 normal heart sound present, no click, no gallops and no murmurs GI: Other: Soft nontender nondistended normoactive bowel sounds Inspection: Yes normal to inspection Palpation (GI): Soft to palpation Auscultation: normal bowel sounds Back/Spine/Pelvis: Cervical Spine: normal cervical lordosis Thoracic/Lumbar Spine: thoracic and lumbar spine normal to inspection Skin: General skin exam: no rashes or lesions noted Neuro: General: patient oriented x3, tone normal, moves all extremities and no focal motor deficits Extrem: Other: Chronic venous stasis changes bilateral lower extremity Objective Data Labs 09/30/22 06:30 09/30/22 06:30 Labs: Laboratory Results - last 24 hr 09/29/22 09/29/22 09/29/22 12:03 16:58 21:19 WBC RBC Hgb Hct MCV MCH MCHC RDW Plt Count MPV Absolute Nucleated RBC Nucleated RBC % (auto) Sodium Potassium Chloride Carbon Dioxide Anion Gap BUN Creatinine Estim Creat Clear Calc Estimated GFR POC Glucose 105 99 104 Random Glucose Calcium 09/30/22 09/30/22 09/30/22 06:30 06:30 07:27 WBC 4.4 L RBC 2.50 L Hgb 8.2 L Hct 25.7 L MCV 102.8 H MCH 32.8 MCHC 31.9 RDW 16.4 H Plt Count 68 L MPV 9.9 Absolute Nucleated RBC 0.000 Nucleated RBC % (auto) 0.0 Sodium 143 Potassium 4.7 Chloride 110 H Carbon Dioxide 24 Anion Gap 14 BUN 81 H Creatinine 4.36 H* Estim Creat Clear Calc 20.9 Estimated GFR 14 POC Glucose 81 Random Glucose 76 Calcium 8.4 Microbiology Microbiology Results: Microbiology 09/24/22 14:25 Blood - Venous Blood Culture - Final No growth after 5 days. 09/24/22 14:15 Blood - Venous Blood Culture - Final No growth after 5 days. 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 (1) Acute kidney injury superimposed on chronic kidney disease: ?Status:?Acute ?Assessment and Plan: CARY occurring in the setting of bradycardia; may be the cause of renal hypoperfusion; getting paer Prerenal CARY exacerbated by presence of raas casey and outflow issues (2) CKD (chronic kidney disease) stage 4, GFR 15-29 ml/min: ?Status:?Acute ?Assessment and Plan: Carries diagnosis of SLE , cirrhosis and DM II; stage 4/5 CD (3) Hematuria: ?Status:?Acute ?Assessment and Plan: ?related to traumatic garcia placement (4) Type 2 diabetes mellitus with hyperglycemia: ?Status:?Acute (5) Metabolic acidosis: ?Status:?Acute ?Assessment and Plan: Due to renal failure : both nonAG and AG Plan Pt with worsening kidney function, creat 4.8 and BUN 100; nonoliguric; Potassium and acid/base status improved Could come to require dialysis but no urgent need Pacer - may improve renal perfusion; sodium bicarb: 1300 bid po Low K diet Continue to hold diuretics and ARB for now. Time Spent With Patient Time: Total time managing care of this patient today ____ minutes. Progress Note: Quality Stroke Does the patient have a stroke diagnosis?: No
[2022-09-30 11:08] LABS: Glucose, Whole Blood 110 mg/dL (60-115)
--- NOTE | 2022-09-30 11:16 | P.DS_ITS ---
DS: Providers Provider Date of Service: 09/30/22 Date of admission: 09/24/22 15:15 Primary care physician: Steve Nguyen MD Consults: 09/24/22 15:20 Consult to Nephrology Routine Consulting Provider: Toribio Sparrow Reason for consultation: Acute on chronic KD Has provider been notified: No 09/24/22 15:22 Consult to Urology Routine Consulting Provider: Juan Gonzalez Reason for consultation: emphysematous cyctitis Has provider been notified: No 09/25/22 08:33 Consult to Cardiology Routine Consulting Provider[place] [facility] Reason for consultation: AFib with shayy Has provider been notified: Yes DS: Diagnosis Discharge Diagnosis (1) Acute kidney injury superimposed on chronic kidney disease: Status: Acute (2) CKD (chronic kidney disease) stage 4, GFR 15-29 ml/min: Status: Acute (3) Hematuria: Status: Acute (4) Symptomatic bradycardia: Status: Acute (5) Pancytopenia: Status: Acute (6) Metabolic acidosis: Status: Acute (7) Bradycardia: Status: Acute (8) Cystitis: Status: Acute DS: Summary Hospital Course Hospital Course: Admission note HPI 67-year-old male, with a past medical history of CKD stage 4, diabetes, COPD, hypertension, hypercholesterolemia, sleep apnea, atrial fibrillation on Eliquis, who presents emergency department today with complaints of blood in urine since yesterday.? Patient denies any dysuria, urinary frequency or urinary urgency.? Denies any recent trauma to his groin.? Patient does report that 3 weeks ago he had a perforated bowel which required surgical repair.? He was admitted to [facility] for several days and was discharged to a care home which he was discharged from on Thursday.? He reports that he had frequent catheterizations at that time.? He denies history of hematuria in the past.? Denies any fevers or chills, dizziness, weakness, abdominal pain, nausea or vomiting.? He is unsure if he has had diarrhea, unable to report bloody or black stool.? No other complaints or concerns at this time.? Recent creatinine 09/07/2022 was 3.6 at [facility]. Hospital course The patient presented to ED with a complaint of gross hematuria.? 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 Found to have acute kidney injury in backdrop of chronic kidney disease.? 1. he was evaluated for Paroxysmal atrial fibrillation with slow ventricular response, status post dual-chamber pacemaker with reeval, no dislodgement noted on reeval by dr Moreau. monitored on telemetry with well paced rate. cadiology dr Mcghee followed the patient and recommended starting low dose Metoprolol for better rate control. to follow with cardiology as outpatient. 2. Hematuria 2/2 UTI w Klebsiella. Garcia placed as he was followed by urologist who recommended placing a Garcia and starting Prostate medications with treatment of urine infection for underlying Incomplete emptying of bladder due to benign prostatic hyperplasia. Continue PO Levaquin to finish total of 10 days of treatment. Eliquis was restarted with no evidence of bleeding. to follow with dr Gonzalez in office for 2 weeks. 3. Noted to have Acute kidney injury superimposed on chronic kidney disease with associated metabolic acidosis with Cr elevated 5. Treated with IV fluids, bicarb drip and holding nephrotoxic medications with mild improvement in function to 4.3 at time of discharge. followed by nephrology team who recommended to continue sodium bicarb and follow up as outpatient. to repeat BMP next week. 4.Hypertension acceptable control while holding Losartan and Torsemide. monitor as outpatient. Discontinue Torsemide and Losartan Finish Levofloxacin as prescribed for urine infection Repeat blood work as outpatient Follow with dr Blair from nephrology in 2-[address] Mcghee from cardiology in 2-[address] Gonzalez from urology in 2 weeks to remove the garcia catheter Time Spent with Patient Time attestation: Total time managing care of this patient today ____ minutes. Discharge coordination time: Greater than 30 minutes Quality: Safe Use of Opioids Does Pt have an Active Cancer Diagnosis on the Problem List?: No Quality: Stroke Does the patient have a stroke diagnosis?: No Physical Exam Vital Signs: Vital Signs: Last Vital Signs Temp 98.6 F 09/30/22 10:54 Pulse 77 09/30/22 10:54 Resp 20 09/30/22 10:54 BP 136/60 09/30/22 10:54 Pulse Ox 98 09/30/22 10:54 O2 Del Method Room Air 09/30/22 10:54 O2 Flow Rate 2 09/27/22 14:15 BMI result Body Mass Index 36.4 Const: Other: Constitutional : Awake, interactive, not in distress Neck : Normal inspection, Supple Cardiovascular :irregular , no JVP, no lower extremity edema Respiratory : good bilateral air entry, no crackles, wheezes or rhonchi Gastrointestinal: soft, lax, Normal bowel sounds, Non tender Skin : Warm, Dry Urology; garcia in place, no hematuria Neurological : Alert & oriented x3, No focal deficit DS: Data Data Completed and Pending Labs on day of discharge: Laboratory Results - last 24 hr 09/29/22 09/29/22 09/29/22 12:03 16:58 21:19 WBC RBC Hgb Hct MCV MCH MCHC RDW Plt Count MPV Absolute Nucleated RBC Nucleated RBC % (auto) Sodium Potassium Chloride Carbon Dioxide Anion Gap BUN Creatinine Estim Creat Clear Calc Estimated GFR POC Glucose 105 99 104 Random Glucose Calcium 09/30/22 09/30/22 09/30/22 06:30 06:30 07:27 WBC 4.4 L RBC 2.50 L Hgb 8.2 L Hct 25.7 L MCV 102.8 H MCH 32.8 MCHC 31.9 RDW 16.4 H Plt Count 68 L MPV 9.9 Absolute Nucleated RBC 0.000 Nucleated RBC % (auto) 0.0 Sodium 143 Potassium 4.7 Chloride 110 H Carbon Dioxide 24 Anion Gap 14 BUN 81 H Creatinine 4.36 H* Estim Creat Clear Calc 20.9 Estimated GFR 14 POC Glucose 81 Random Glucose 76 Calcium 8.4 09/30/22 10:59 WBC RBC Hgb Hct MCV MCH MCHC RDW Plt Count MPV Absolute Nucleated RBC Nucleated RBC % (auto) Sodium Potassium Chloride Carbon Dioxide Anion Gap BUN Creatinine Estim Creat Clear Calc Estimated GFR POC Glucose 110 Random Glucose Calcium Imaging Chest x-ray: Radiologist's impression: ITS Impressions Abdomen/Pelvis CT 09/24/22 11:53 IMPRESSION: Emphysematous cystitis. Findings consistent with cirrhosis and small to moderate amount of ascites. Enlarged bilateral inguinal lymph nodes and right iliac chain lymph nodes. Fleischner guidelines were followed. Guidance Fluoroscopy 09/27/22 14:20 IMPRESSION: Intraprocedural fluoroscopic guidance as noted above. Chest X-Ray 09/27/22 15:00 FINDINGS/IMPRESSION: The study is limited by portable technique and low lung volumes. No focal infiltrate, effusion, pneumothorax is seen. The pulmonary veins may be mildly prominent in the nondependent portions, raising the possibility of mild pulmonary venous hypertension, not grossly changed. The cardiac silhouette is suboptimally evaluated. The aorta is atherosclerotic. The tips of left subclavian pulse generator device leads project over the right atrium and right ventricle. Severe osteoarthritis of the glenohumeral joints. Mild degenerative changes of the spine. Chest X-Ray 09/28/22 08:04 IMPRESSION: 1. Left chest wall pacer with the leads overlying the right heart. The leads appear intact. 2. Patchy right infrahilar airspace opacities, new when compared to the prior examination which could represent atelectasis versus early infiltrates. Mild interstitial prominence and vascular crowding, new when compared to the prior examination. Guidance Fluoroscopy 09/28/22 15:50 IMPRESSION: Chest radiograph: *No effusions or pneumothoraces. *Status post left pectoral atrioventricular pacer without evidence of grossly ectopia or discontinuity. *Mild pulmonary vascular congestion. Intraprocedural fluoroscopy: *Digital spot and continues fluoroscopic visualization for pacer placement as detailed above. Chest X-Ray 09/28/22 16:02 IMPRESSION: Chest radiograph: *No effusions or pneumothoraces. *Status post left pectoral atrioventricular pacer without evidence of grossly ectopia or discontinuity. *Mild pulmonary vascular congestion. Intraprocedural fluoroscopy: *Digital spot and continues fluoroscopic visualization for pacer placement as detailed above. Chest X-Ray 09/29/22 09:55 IMPRESSION: Stable position of left subclavian dual chamber pacemaker with leads projecting over the right atrium and ventricular apex. Question pulmonary venous redistribution. Discharge Plan Discharge Anticipated Discharge Date/Time: 09/30/22 11:00 Patient Disposition: Home Health Service Discharge Diagnosis: Symptomatic bradycardia post permenant pacemaker placement Acute kidney injury Hematuria 2/2 UTI Referrals: Son MCCALL [Outside] - 1 Week Po,Steve Dawn MD [Primary Care Provider] - 1 Week Discharge Medications: New levofloxacin 500 mg Tablet 500 mg PO Q48H Qty: 3 0RF metoprolol tartrate 25 mg tablet 12.5 mg PO BID Qty: 30 0RF Continued terazosin 5 mg capsule 5 mg PO DAILY Qty: 90 3RF (DME) kylah.stocking,knee,reg,xlrg Misc See Rx Instructions .ROUTE .MEDSUPPLY Qty: 12 0RF Rx Instructions: As directedcompression stockings bilateral adjustable lower extremity garments (DME) compr.stocking,thigh,reg,x-lrg Misc See Rx Instructions .Route Qty: 12 0RF Rx Instructions: As directed 20-30 mm HG (DME) Juxta Lite Compression wraps - Adjustable -for chronic ulcers with open wounds bilat lower extremities See Rx Instructions .Route .MEDSUPPLY Qty: 2 0RF Rx Instructions: As directed pravastatin 20 mg tablet 20 mg PO BEDTIME Qty: 90 3RF isosorbide mononitrate 30 mg tablet extended release 24 hr 30 mg PO DAILY Qty: 90 3RF amlodipine 5 mg tablet 5 mg PO DAILY Qty: 90 3RF Eliquis 5 mg tablet 5 mg PO BID Qty: 60 5RF Anoro Ellipta 62.5-25 mcg/actuation blister with device 1 ea inhalation DAILY Qty: 60 6RF polyethylene glycol 3350 [Miralax] 17 gram powder in packet 17 g PO DAILY PRN (Reason: Constipation) ferrous sulfate 325 mg (65 mg iron) tablet 325 mg PO DAILY Qty: 30 0RF (DME) APAP 5-15 cm H20 humidified AIR See Rx Instructions .Route .MEDSUPPLY Qty: 1 0RF Rx Instructions: As directed simethicone [Gas Relief (simethicone)] 80 mg tablet,chewable 80 mg PO BID-QID PRN (Reason: abdominal distention) Qty: 30 0RF calcitriol 0.5 mcg capsule 0.5 mcg PO DAILY albuterol sulfate [ProAir HFA] 90 mcg/actuation HFA aerosol inhaler 2 puff inhalation 6XD PRN (Reason: Shortness Of Breath Or Wheezing) sodium bicarbonate 650 mg tablet 650 mg PO QID Discontinued losartan 100 mg tablet 100 mg PO DAILY 90 Days Qty: 90 2RF torsemide 20 mg tablet 40 mg PO BID Discharge Orders: Discharge Order (Routine); Ordered 09/30/22 Ordered By: Oliver Aleman Diet: Low potassium diet Activity on Discharge: As tolerated Stand Alone Forms: Patient Portal Discharge page Care Plan Goals: Read below Health Concerns: Read below Plan of Treatment: Read below Assessment: You were admitted to the hospital for bloody urine and irregular heart beats. Evaluated by urologist dr Gonzalez as garcia catheter was placed and blood thinners put on hold. Treated for urine infection with IV antibiotics. Seen by cardiology for slow heart rate. a dual chamber pacemaker was placed. to be followed by cardiology Dr Mcghee as outpatient Noted to have acute kidney injury followed by nephrology team with mild improvement during hospital stay. Discontinue Torsemide and Losartan Finish Levofloxacin as prescribed for urine infection Repeat blood work as outpatient Follow with dr Blair from nephrology in 2-[address] Mcghee from cardiology in 2-[address] Gonzalez from urology in 2 weeks to remove the garcia catheter
--- NOTE | 2022-09-30 11:27 | MHC.CM.PN ---
Patient has been medically cleared for dc to home today with services.A referral was made to [facility], who has been made aware of today's dc. CM met with Patient and his at bedside and addressed IMM with them (original was given to Patient and a copy has been placed on the chart). Patient and his are pleased with the dc plan.
--- NOTE | 2022-09-30 11:38 | W.MHC.F2F ---
Service Date Service Date: 09/30/22 Encounter Date of encounter: 09/30/22 Reasons for Services Signs and symptoms assessed: physical deconditioning Isaías Dorado Reason for intermediate: medication management and teach disease management Reason for physical therapy: home safety and mobility and therapeutic exercises Homebound: Leaving the home is medically contraindicated at this time without the asist of a device and/or another person due th the listed conditions above and below. Reason homebound: unsteady gait / fall risk Certification: Based on the above findings, I certify that this patient is confined to the home and needs intermittent intermediate care, physical therapy and/or speech therapy, or continues to need occupational therapy. The patient is under my care, and I have initiated the establishment of the plan of care. The patient will be followed by a physician who will periodically review the plan of care. Time Spent With Patient Time: Total time managing care of this patient today ____ minutes.
[2022-09-30 15:16] VITALS: BP 145/65; PULSE 71; RESP 15; TEMP 36.7; O2SAT 98
== END 2022-09-30 16:47 | disposition home health service (06) | DRG 982 ==
LOC: HO.ED 14:41 → HO.EDOVER 15:24 → HO.IMC 19:46
PROVIDERS: Internal Medicine Cardiovascular Disease; Physician Assistant Medical; Student in an Organized Health Care Education/Training Program; Admitting Provider Hospitalist; Emergency Provider Emergency Medicine; PCP Internal Medicine; Visit Provider Student in an Organized Health Care Education/Training Program
PROC: 0JH606Z Insertion of Pacemaker, Dual Chamber into Chest Subcutaneous Tissue and Fascia, Open Approach (ICD-10-PCS; principal; 2022-09-27 09:00)
DX: N30.81 Other cystitis with hematuria (principal); D61.818 Other pancytopenia; E87.20 Acidosis, unspecified; F32.3 Major depressive disorder, single episode, severe with psychotic features; N18.4 Chronic kidney disease, stage 4 (severe); N17.9 Acute kidney failure, unspecified; K76.6 Portal hypertension; E78.00 Pure hypercholesterolemia, unspecified; G47.33 Obstructive sleep apnea (adult) (pediatric); E11.42 Type 2 diabetes mellitus with diabetic polyneuropathy; E11.65 Type 2 diabetes mellitus with hyperglycemia; I12.9 Hypertensive chronic kidney disease with stage 1 through stage 4 chronic kidney disease, or unspecified chronic kidney disease; I48.0 Paroxysmal atrial fibrillation; N40.1 Benign prostatic hyperplasia with lower urinary tract symptoms; R39.14 Feeling of incomplete bladder emptying; R00.1 Bradycardia, unspecified; M32.9 Systemic lupus erythematosus, unspecified; K74.60 Unspecified cirrhosis of liver; K72.90 Hepatic failure, unspecified without coma; B96.1 Klebsiella pneumoniae [K. pneumoniae] as the cause of diseases classified elsewhere; E11.22 Type 2 diabetes mellitus with diabetic chronic kidney disease; Z20.822 Contact with and (suspected) exposure to COVID-19; Z87.891 Personal history of nicotine dependence; Z79.01 Long term (current) use of anticoagulants; Z79.899 Other long term (current) drug therapy
CPT/HCPCS: 0241U; 36415; 71045; 74176; 80048; 80053; 80076; 81001; 82272; 82947; 83605; 83690; 83735; 84300; 85025; 85027; 85610; 85730; 86850; 86900; 86901; 87040; 87086; 87088; 87186; 93005; 93306; 94640; 97110; 97116; 97162; 99285; C1758; C1785; C1892; C1898; J0690; J0696; J1956; J2020; J2185; J2250; J2405; J3010; J3475; Q9957

== ENCOUNTER 2022-10-03 11:06 | Emergency (ER) | payer OTHER, SELFPAY ==
--- NOTE | ~2022-10-03 | US_ITS ---
EXAMINATION: US VENOUS WITH DOPPLER UPPER EXTREMITY, LEFT CLINICAL INFORMATION: Left upper extremity edema and pain. COMPARISON: None available. TECHNIQUE: Ultrasound of the upper extremity is performed using compression sonography and color and pulse Doppler flow with assessment of augmentation of flow. There is also imaging and Doppler assessment of the jugular and subclavian veins. Spectral analysis with color-flow imaging is performed. FINDINGS: Respiratory variation, normal compression, and augmented flow are noted throughout the upper extremity including the axillary, brachial, cubital, and radial and ulnar veins. There is normal flow in the internal jugular and subclavian veins. There is no visible deep or superficial thrombophlebitis. Fluid seen in the region of the shoulder, possibly surrounding the biceps tendon. Prominent axillary lymph node noted. US/US venous duplex UE LT IMPRESSION: No DVT demonstrated in the left upper extremity. Possible biceps tenosynovitis.
--- NOTE | ~2022-10-03 | XR_ITS ---
EXAMINATION: XR CHEST CLINICAL INFORMATION: Pain COMPARISON: Chest 09/29/2022 TECHNIQUE: 2 views of the chest were obtained. FINDINGS: The lungs are well-expanded and clear of acute pneumonic process. There is normal size heart with increased bilateral hilar markings. There are dual pacer electrodes in right atrium and right ventricle. No gross bony abnormality seen. XR/XR chest 2V IMPRESSION: No acute cardiopulmonary process seen. There are dual pacer electrodes in right atrium and right ventricle. No major change compared to 09/29/2022.
[2022-10-03 11:10] VITALS: BP 118/50; PULSE 87; RESP 18; TEMP 36.8; O2SAT 97; BMI 36.2
--- NOTE | 2022-10-03 11:16 | ECG_ITS ---
Test Reason : cp Blood Pressure : / mmHG Vent. Rate : 080 BPM Atrial Rate : 064 BPM P-R Int : 196 ms QRS Dur : 192 ms QT Int : 478 ms P-R-T Axes : 000 -53 134 degrees QTc Int : 551 ms AV dual-paced rhythm with occasional Premature ventricular complexes Abnormal ECG When compared with ECG of 28-SEP-2022 16:24, No significant changes seen Referred By: Andrews Jenkins Electronically Signed By:VICKY BANGURA
--- NOTE | 2022-10-03 11:17 | ED_ITS ---
HPI - General Adult General Chief complaint: Extremity Problem <Andrews Jenkins - Last Filed: 10/03/22 11:18> Stated complaint: arm swollen after pace maker was put in <Andrews Jenkins - Last Filed: 10/03/22 11:18> Time Seen by Provider: 10/03/22 13:13 <Andrews Jenkins - Last Filed: 10/03/22 11:18> Source: patient <Andriy Gardiner MD - Last Filed: 10/03/22 14:13> Mode of arrival: ambulatory <Andriy Gardiner MD - Last Filed: 10/03/22 14:13> Limitations: no limitations <Andriy Gardiner MD - Last Filed: 10/03/22 14:13> History of Present Illness HPI narrative: 67-year-old male who presents emergency department for evaluation of swelling and ecchymosis of his left chest and left arm. The patient had a pacemaker placed 09/27/2022 at this facility by Dr. Moreau. The patient does have cirrhosis of the liver secondary to alcohol use disorder. Patient had baseline anemia with thrombocytopenia and the chronic renal failure. The patient states since the procedure he has been feeling well and at his baseline. The patient noted increased swelling with ecchymosis which concerned him. He did contact Dr. Moreau and was advised to come to the emergency department. I did take expect note from Dr. Moreau regarding the patient. <Andriy Gardiner MD - Last Filed: 10/03/22 14:13> Related Data Home medications: Home Medications Medication Instructions Recorded Confirmed calcitriol 0.5 mcg capsule 0.5 mcg PO DAILY 04/03/20 09/24/22 albuterol sulfate 90 mcg/actuation 2 puff inhalation 6XD PRN 07/05/20 09/24/22 aerosol inhaler (ProAir HFA) Shortness Of Breath Or Wheezing sodium bicarbonate 650 mg tablet 650 mg PO QID 09/22/22 09/24/22 polyethylene glycol 3350 17 gram 17 g PO DAILY PRN Constipation 09/24/22 09/24/22 oral powder packet (Miralax) Previous Rx's Medication Instructions Recorded terazosin 5 mg capsule 5 mg PO DAILY #90 caps 07/12/20 kylah.stocking,knee,reg,xlrg #12 ea 11/01/20 compr.stocking,thigh,reg,x-lrg #12 ea 05/31/21 Juxta Lite Compression wraps - #2 ea 07/02/21 Adjustable -for chronic ulcers with open wounds bilat lower extremities APAP 5-15 cm H20 humidified AIR #1 ea 09/06/21 pravastatin 20 mg tablet 20 mg PO BEDTIME #90 tabs 09/09/21 isosorbide mononitrate 30 mg 30 mg PO DAILY #90 tabs 01/17/22 tablet,extended release 24 hr amlodipine 5 mg tablet 5 mg PO DAILY #90 tabs 03/28/22 Anoro Ellipta 62.5 mcg-25 1 ea inhalation DAILY #60 ea 07/07/22 mcg/actuation powder for inhalation (umeclidinium-vilanterol) apixaban 5 mg tablet (Eliquis) 5 mg PO BID #60 tabs 07/07/22 simethicone 80 mg chewable tablet 80 mg PO BID-QID PRN abdominal 07/17/22 (Gas Relief (simethicone)) distention #30 tabs ferrous sulfate 325 mg (65 mg 325 mg PO DAILY #30 tabs 09/30/22 iron) tablet levofloxacin 500 mg tablet 500 mg PO Q48H #3 tabs 09/30/22 metoprolol tartrate 25 mg tablet 12.5 mg PO BID #30 tabs 09/30/22 blood sugar diagnostic (FreeStyle #200 ea 10/02/22 Lite Strips) blood-glucose meter (FreeStyle #1 ea 10/02/22 Lite Meter kit) lancets 28 gauge (FreeStyle #200 ea 10/02/22 Lancets) <Andrews Jenkins - Last Filed: 10/03/22 11:18> Allergies/adverse reactions: Allergies Allergy/AdvReac Type Severity Reaction Status Date / Time No Known Allergies Allergy Verified 09/22/22 12:56 [No Known Allergies*] <Andrews Jenkins - Last Filed: 10/03/22 11:18> Review of Systems Review of Systems: Yes all other systems are reviewed and are negative <Andriy Gardiner MD - Last Filed: 10/03/22 14:13> [facility] Past Medical History PMFSH Narrative: Social history: Patient lives with his he is here in the emergency department with him. <Andriy Gardiner MD - Last Filed: 10/03/22 14:13> Medical History: Medical History Afib Anemia BPH (benign prostatic hyperplasia) Bradycardia Chronic kidney disease COPD (chronic obstructive pulmonary disease) Depression, major Diabetic retinopathy Edema Essential thrombocytopenia Fistula Gout High cholesterol HTN (hypertension) Hypercholesterolemia Lumbar degenerative disc disease Lymphedema Obesity (BMI 30-39.9) Obstructive sleep apnea Osteoarthritis Paroxysmal A-fib Peripheral neuropathy Peripheral vascular disease Pulmonary hypertension Scrotal edema Type 2 diabetes mellitus with hyperglycemia Venous stasis dermatitis <Andrews Jenkins - Last Filed: 10/03/22 11:18> Surgical History: Surgical History H/O prior ablation treatment History of bilateral cataract extraction History of carpal tunnel release History of gastric surgery History of tonsillectomy <Andrews Jenkins - Last Filed: 10/03/22 11:18> Family History Family History: Family History Father Prostate cancer CVD (cardiovascular disease) Mother Hemochromatosis Brother Motor vehicle accident Sister CAD (coronary artery disease) Maternal Grandfather Myocardial infarction <Andrews Jenkins - Last Filed: 10/03/22 11:18> Social History Social History: Social History Household Members: Spouse Housing: House Alcohol intake: never Patient Tobacco Use Status: Former Tobacco user Smoked in Last 30 Days: No e-Cigarette/Vaping Use: Never Used Second Hand Smoke Exposure: Yes Use of substances other than those prescribed or required for medical reasons: No Substance Use Type: Marijuana Advance Directives: Yes Advance Directives Information Provided: No Advance Directives on File: No service: No Current occupational status: retired Cognitive needs: Yes Hearing needs: Yes Vision needs: Yes <Andrews Jenkins - Last Filed: 10/03/22 11:18> Physical Exam ED Vital Signs: Vital Signs - 24 hr 10/03/22 11:10 10/03/22 12:34 Temperature 98.3 F Pulse Rate 87 75 Respiratory Rate 18 16 Blood Pressure 118/50 L 110/56 L Pulse Oximetry 97 98 Oxygen Delivery Method Room Air Room Air BMI result Body Mass Index 36.2 <Andrews Jenkins - Last Filed: 10/03/22 11:18> Vital Signs - 24 hr 10/03/22 11:10 10/03/22 12:34 Temperature 98.3 F Pulse Rate 87 75 Respiratory Rate 18 16 Blood Pressure 118/50 L 110/56 L Pulse Oximetry 97 98 Oxygen Delivery Method Room Air Room Air BMI result Body Mass Index 36.2 <Andriy Gardiner MD - Last Filed: 10/03/22 14:13> Const General: cooperative and no acute distress <Andriy Gardiner MD - Last Filed: 10/03/22 14:13> Orientation/consciousness: oriented to person and oriented to place <Andriy Gardiner MD - Last Filed: 10/03/22 14:13> Limitations: no limitations <Andriy Gardiner MD - Last Filed: 10/03/22 14:13> HENMT Head: Yes normal to inspection, Yes normocephalic and Yes atraumatic <Andriy Gardiner MD - Last Filed: 10/03/22 14:13> Ears: external ears normal <Andriy Gardiner MD - Last Filed: 10/03/22 14:13> General nose exam: Normal external nose present <Andriy Gardiner MD - Last Filed: 10/03/22 14:13> Face and sinus: Yes normal facial exam <Andriy Gardiner MD - Last Filed: 10/03/22 14: 13> Mouth: Normal oral and palatal mucosa present <Andriy Gardiner MD - Last Filed: 10/03/22 14:13> Throat: Yes posterior oropharynx normal <Andriy Gardiner MD - Last Filed: 10/03/22 14:13> Eyes General: appearance normal, both eyes and all related structures <Andriy Gardiner MD - Last Filed: 10/03/22 14:13> Pupils: Equal, round and reactive pupils present <Andriy Gardiner MD - Last Filed: 10/03/22 14:13> Neck Neck: Yes normal visual inspection, Yes no lymphadenopathy, Yes trachea midline and Yes supple <Andriy Gardiner MD - Last Filed: 10/03/22 14:13> Chest Other: There is some slight swelling over the pacemaker pocket, there is ecchymosis over the pacemaker pocket, left chest wall, the last chest wall is nontender. <Andriy Gardiner MD - Last Filed: 10/03/22 14:13> Resp Effort & Inspection: normal respiratory effort and able to speak in complete sentences <Andriy Gardiner MD - Last Filed: 10/03/22 14:13> Auscultation: clear to auscultation bilaterally <Andriy Gardiner MD - Last Filed: 10/03/22 14:13> Cardio Rate: regular rate <Andriy Gardiner MD - Last Filed: 10/03/22 14:13> Rhythm: regular rhythm <Andriy Gardiner MD - Last Filed: 10/03/22 14:13> Heart sounds: S1 normal heart sound present, S2 normal heart sound present and no murmurs <Andriy Gardiner MD - Last Filed: 10/03/22 14:13> GI Inspection: Yes normal to inspection <Andriy Gardiner MD - Last Filed: 10/03/22 14:13> Palpation (GI): Soft to palpation, nontender and no guarding <Andriy Gardiner MD - Last Filed: 10/03/22 14:13> Auscultation: normal bowel sounds <MD Mars Roche Last Filed: 10/03/22 14:13> General: Yes no CVA tenderness <Andriy Gardiner MD - Last Filed: 10/03/22 14:13> Back/Spine/Pelvis Back: no CVA tenderness <Andriy Gardiner MD - Last Filed: 10/03/22 14:13> Skin Other: There is ecchymosis over the pacemaker pocket, left pectoralis muscle, left lateral chest. There is also significant ecchymosis of the left upper extremity compared <Andriy Gardiner MD - Last Filed: 10/03/22 14:13> Neuro General: oriented to person and oriented to place <Andriy Gardiner MD - Last Filed: 10/03/22 14:13> Cranial nerves: Yes CN's II-XII intact bilaterally and Yes Equal, round and reactive pupils present <Andriy Gardiner MD - Last Filed: 10/03/22 14:13> Cognition (Neuro): normal cognition <Andriy Gardiner MD - Last Filed: 10/03/22 14:13> Motor exam (neuro): 5/5 motor strength present throughout <Andriy Gardiner MD - Last Filed: 10/03/22 14:13> Extrem Other: Left upper extremity is swollen to 1-1/2 times the size of the right upper extremity, there is ecchymosis, there is nonpitting edema of the extremity, extremities neurovascular intact <Andriy Gardiner MD - Last Filed: 10/03/22 14:13> Psych Appearance: grossly normal <Andriy Gadriner MD - Last Filed: 10/03/22 14:13> Speech and movement: Normal speech and movement present <Andriy Gardiner MD - Last Filed: 10/03/22 14:13> Affect: normal affect <Andriy Gardiner MD - Last Filed: 10/03/22 14:13> Attitude: cooperative <Andriy Gardiner MD - Last Filed: 10/03/22 14:13> Thought process: Normal thought process present <Andriy Gardiner MD - Last Filed: 14:13> Thought content: Normal thought content present <Andriy Gardiner MD - Last Filed: 10/03/22 14:13> Course Course Course Narrative: 67-year-old male presents for evaluation of pain, swelling mostly to the left but also left chest wall. He had a pacemaker placed last week at this facility. No drainage from the pacemaker wound. Plan for labs, ultrasound of the left upper extremity, chest x-ray. Patient reports history of anemia requiring transfusions a type and screen was ordered as well <Andrews Jenkins - Last Filed: 10/03/22 11:18> Medical Decision Making Medical Decision Making MDM Narrative: 67-year-old male with a history of cirrhosis, thrombocytopenia, acute on chronic kidney injury who had a pacemaker placed 09/27/2022 who presents now for evaluation of ecchymosis of his left chest, left side and left upper extremity with swelling of the left upper extremity compared to the right. Patient was otherwise asymptomatic with no increased weakness for increased shortness of breath above his baseline. Vital signs were unremarkable. Examination did reveal ecchymosis and soft tissue swelling of the left upper extremities with ecchymosis to left chest and left lateral aspect of the chest and abdomen. Provider at triage ordered a laboratory evaluation to include CBC, CMP, PT/INR, PTT, magnesium. Two-view chest x-ray, 12 EKG and left upper extremity duplex ultrasound 1400: My interpretation patient's laboratory evaluation as follows: Anemia with an H was 7.3 and 23 decreased from baseline of 8.2 and 25.7 on 09/30/2022. Thrombocytopenia 72,000-chronic. Elevated BUN and creatinine of 70 and 4.0 improving from previous values. Elevated INR 1.8, elevated PTT 37.4. Magnesium was normal 1.6. Two-view chest x-ray revealed no acute process, there are dual paced electrodes in the right atrium and right ventricle. Duplex ultrasound revealed no DVT of the left upper extremity. I did discuss the patient's physical examination and laboratory findings with Dr. Moreau. The findings are consistent with dependent edema and the patient may have also blood in to left arm subcutaneous tissue caused the swelling and ecchymosis. Given the fact that he is asymptomatic I do not think that he needs to be transfused. Pacemaker also is working and the chest x-ray shows that the pacemaker wires are in the appropriate place. The patient did restart his Eliquis at 5 mg every [address] Moreau recommended that patient stop this for 1 week and that prior to restarting it you should discuss starting a lower dose of Eliquis 2.5 mg every 12 hours with his PCP. The patient was discharged home <Andriy Gardiner MD - Last Filed: 10/03/22 14:13> Differential Diagnosis Differential diagnosis includes was not limited to DVT, bleeding into extremity, dependent edema, anemia, electrolyte abnormality <Andriy Gardiner MD - Last Filed: 10/03/22 14:13> Consult Healthcare Provider Management of the patient was discussed with: Marketing Database Coordinator (Dr. Moreau) <Andriy Gardiner MD - Last Filed: 10/03/22 14:13> Lab Data [facility] Lab Attestation statement: I reviewed the patient's lab results. <Andriy Gardiner MD - Last Filed: 10/03/22 14:13> See MDM <Andriy Gardiner MD - Last Filed: 10/03/22 14:13> Result Diagrams: 10/03/22 11:42 10/03/22 11:42 <Andrews Jenkins - Last Filed: 10/03/22 11:18> Labs: Lab Results 10/03/22 10/03/22 10/03/22 Range/Units 11:42 11:42 11:42 WBC 4.8 (4.8-10.8) X10*3/uL RBC 2.25 L (4.60-5.80) X10*6/uL Hgb 7.3 L (14.0-18.0) g/dl Hct 23.0 L (42.0-52.0) % MCV 102.2 H (80.0-98.0) fL MCH 32.4 (27.0-33.0) pg MCHC 31.7 (31.0-36.0) g/dl RDW 15.8 (11.0-16.0) % Plt Count 72 L (160-400) X10*3/uL MPV 9.4 (9.4-12.4) fL Immature Gran % (Auto) 0.4 (0.0-0.4) % Neut % (Auto) 82.7 H (45-73) % Lymph % (Auto) 9.2 L (20-40) % Crook % (Auto) 7.1 (2-11) % Eos % (Auto) 0.0 (0-4) % Baso % (Auto) 0.6 (0-2) % Lymph # (Auto) 0.4 L (1.2-4.9) X10*3/uL Crook # (Auto) 0.3 (0.1-1.2) X10*3/uL Eos # (Auto) 0.0 (0.0-0.4) X10*3/uL Baso # (Auto) 0.0 (0.0-0.2) X10*3/uL Abs Immat Gran (auto) 0.02 (0.00-0.03) X10*3/uL Absolute Neuts (auto) 4.0 (2.0-8.3) x10*3/uL Absolute Nucleated RBC 0.000 (0.0-0.012) X10*3/uL Nucleated RBC % (auto) 0.0 (0.0-0.2) /100WBC PT 21.1 H (10.0-13.1) SEC INR 1.8 H (0.9-1.1) APTT 37.4 H (26.0-36.4) SEC Sodium 146 H (135-145) mmol/L Potassium 4.1 (3.3-5.1) mmol/L Chloride 111 H (96-108) mmol/L Carbon Dioxide 25 (22-29) mmol/L Anion Gap 14 (12-20) BUN 78 H (9-16) mg/dL Creatinine 4.07 H* (0.5-1.4) mg/dL Estim Creat Clear Calc 22.3 Estimated GFR 15 Random Glucose 80 (60-115) mg/dL Calcium 8.1 L (8.4-10.2) mg/dL Magnesium 1.6 (1.6-2.6) mg/dL Total Bilirubin 0.7 (0.0-1.0) mg/dL AST 17 (5-37) U/L ALT 6 (0-40) U/L Alkaline Phosphatase 118 H (39-117) U/L Total Protein 5.5 L (6.5-8.0) g/dL Albumin 3.1 L (3.5-5.0) g/dL Blood Type Blood Bank Comment 10/03/22 Range/Units 11:42 WBC (4.8-10.8) X10*3/uL RBC (4.60-5.80) X10*6/uL Hgb (14.0-18.0) g/dl Hct (42.0-52.0) % MCV (80.0-98.0) fL MCH (27.0-33.0) pg MCHC (31.0-36.0) g/dl RDW (11.0-16.0) % Plt Count (160-400) X10*3/uL MPV (9.4-12.4) fL Immature Gran % (Auto) (0.0-0.4) % Neut % (Auto) (45-73) % Lymph % (Auto) (20-40) % Crook % (Auto) (2-11) % Eos % (Auto) (0-4) % Baso % (Auto) (0-2) % Lymph # (Auto) (1.2-4.9) X10*3/uL Crook # (Auto) (0.1-1.2) X10*3/uL Eos # (Auto) (0.0-0.4) X10*3/uL Baso # (Auto) (0.0-0.2) X10*3/uL Abs Immat Gran (auto) (0.00-0.03) X10*3/uL Absolute Neuts (auto) (2.0-8.3) x10*3/uL Absolute Nucleated RBC (0.0-0.012) X10*3/uL Nucleated RBC % (auto) (0.0-0.2) /100WBC PT (10.0-13.1) SEC INR (0.9-1.1) APTT (26.0-36.4) SEC Sodium (135-145) mmol/L Potassium (3.3-5.1) mmol/L Chloride (96-108) mmol/L Carbon Dioxide (22-29) mmol/L Anion Gap (12-20) BUN (9-16) mg/dL Creatinine (0.5-1.4) mg/dL Estim Creat Clear Calc Estimated GFR Random Glucose (60-115) mg/dL Calcium (8.4-10.2) mg/dL Magnesium (1.6-2.6) mg/dL Total Bilirubin (0.0-1.0) mg/dL AST (5-37) U/L ALT (0-40) U/L Alkaline Phosphatase (39-117) U/L Total Protein (6.5-8.0) g/dL Albumin (3.5-5.0) g/dL Blood Type A Negative Blood Bank Comment Technical <Andrews Jenkins - Last Filed: 10/03/22 11:18> Lab Results 10/03/22 10/03/22 10/03/22 Range/Units 11:42 11:42 11:42 WBC 4.8 (4.8-10.8) X10*3/uL RBC 2.25 L (4.60-5.80) X10*6/uL Hgb 7.3 L (14.0-18.0) g/dl Hct 23.0 L (42.0-52.0) % MCV 102.2 H (80.0-98.0) fL MCH 32.4 (27.0-33.0) pg MCHC 31.7 (31.0-36.0) g/dl RDW 15.8 (11.0-16.0) % Plt Count 72 L (160-400) X10*3/uL MPV 9.4 (9.4-12.4) fL Immature Gran % (Auto) 0.4 (0.0-0.4) % Neut % (Auto) 82.7 H (45-73) % Lymph % (Auto) 9.2 L (20-40) % Crook % (Auto) 7.1 (2-11) % Eos % (Auto) 0.0 (0-4) % Baso % (Auto) 0.6 (0-2) % Lymph # (Auto) 0.4 L (1.2-4.9) X10*3/uL Crook # (Auto) 0.3 (0.1-1.2) X10*3/uL Eos # (Auto) 0.0 (0.0-0.4) X10*3/uL Baso # (Auto) 0.0 (0.0-0.2) X10*3/uL Abs Immat Gran (auto) 0.02 (0.00-0.03) X10*3/uL Absolute Neuts (auto) 4.0 (2.0-8.3) x10*3/uL Absolute Nucleated RBC 0.000 (0.0-0.012) X10*3/uL Nucleated RBC % (auto) 0.0 (0.0-0.2) /100WBC PT 21.1 H (10.0-13.1) SEC INR 1.8 H (0.9-1.1) APTT 37.4 H (26.0-36.4) SEC Sodium 146 H (135-145) mmol/L Potassium 4.1 (3.3-5.1) mmol/L Chloride 111 H (96-108) mmol/L Carbon Dioxide 25 (22-29) mmol/L Anion Gap 14 (12-20) BUN 78 H (9-16) mg/dL Creatinine 4.07 H* (0.5-1.4) mg/dL Estim Creat Clear Calc 22.3 Estimated GFR 15 Random Glucose 80 (60-115) mg/dL Calcium 8.1 L (8.4-10.2) mg/dL Magnesium 1.6 (1.6-2.6) mg/dL Total Bilirubin 0.7 (0.0-1.0) mg/dL AST 17 (5-37) U/L ALT 6 (0-40) U/L Alkaline Phosphatase 118 H (39-117) U/L Total Protein 5.5 L (6.5-8.0) g/dL Albumin 3.1 L (3.5-5.0) g/dL Blood Type Blood Bank Comment 10/03/22 Range/Units 11:42 WBC (4.8-10.8) X10*3/uL RBC (4.60-5.80) X10*6/uL Hgb (14.0-18.0) g/dl Hct (42.0-52.0) % MCV (80.0-98.0) fL MCH (27.0-33.0) pg MCHC (31.0-36.0) g/dl RDW (11.0-16.0) % Plt Count (160-400) X10*3/uL MPV (9.4-12.4) fL Immature Gran % (Auto) (0.0-0.4) % Neut % (Auto) (45-73) % Lymph % (Auto) (20-40) % Crook % (Auto) (2-11) % Eos % (Auto) (0-4) % Baso % (Auto) (0-2) % Lymph # (Auto) (1.2-4.9) X10*3/uL Crook # (Auto) (0.1-1.2) X10*3/uL Eos # (Auto) (0.0-0.4) X10*3/uL Baso # (Auto) (0.0-0.2) X10*3/uL Abs Immat Gran (auto) (0.00-0.03) X10*3/uL Absolute Neuts (auto) (2.0-8.3) x10*3/uL Absolute Nucleated RBC (0.0-0.012) X10*3/uL Nucleated RBC % (auto) (0.0-0.2) /100WBC PT (10.0-13.1) SEC INR (0.9-1.1) APTT (26.0-36.4) SEC Sodium (135-145) mmol/L Potassium (3.3-5.1) mmol/L Chloride (96-108) mmol/L Carbon Dioxide (22-29) mmol/L Anion Gap (12-20) BUN (9-16) mg/dL Creatinine (0.5-1.4) mg/dL Estim Creat Clear Calc Estimated GFR Random Glucose (60-115) mg/dL Calcium (8.4-10.2) mg/dL Magnesium (1.6-2.6) mg/dL Total Bilirubin (0.0-1.0) mg/dL AST (5-37) U/L ALT (0-40) U/L Alkaline Phosphatase (39-117) U/L Total Protein (6.5-8.0) g/dL Albumin (3.5-5.0) g/dL Blood Type A Negative Blood Bank Comment Technical <Andriy Gardiner MD - Last Filed: 10/03/22 14:13> Independent Interpretation I performed an independent interpretation of an: EKG <Andriy Gardiner MD - Last Filed: 10/03/22 14:13> Interpretation: My independent interpretation patient's 12 EKG done at 11:32 is as follows: Normal sinus rhythm with a rate of 80. This is a paced rhythm with occasional PVCs. <Andriy Gardiner MD - Last Filed: 10/03/22 14:13> Radiology Impression Discussion of test interpretation with radiology: I have reviewed the radiologist's reading. <Andriy Gardiner MD - Last Filed: 10/03/22 14:13> Radiologist Impression: XR chest 2V IMPRESSION: No acute cardiopulmonary process seen. There are dual pacer electrodes in right atrium and right ventricle. No major change compared to 09/29/2022. Dictated By:Jayjay Sparks MD US venous duplex UE LT IMPRESSION: No DVT demonstrated in the left upper extremity. Possible biceps tenosynovitis. Dictated By:Cedric Galvan MD <Andriy Gardiner MD - Last Filed: 10/03/22 14:13> Independent Historian Clinical information obtained from an independent historian. History obtained from or confirmed by: Spouse <Andriy Gardiner MD - Last Filed: 10/03/22 14:13> External Record Review External record reviewed: Inpatient record <Andriy Gardiner MD - Last Filed: 10/03/22 14:13> Discharge Plan Discharge Clinical Impression: Dependent edema, Ecchymosis <Andrews Jenkins - Last Filed: 10/03/22 11:18> Patient Disposition: Home, Self-Care <Andrews Jenkins - Last Filed: 10/03/22 11:18> Additional Instructions: The duplex ultrasound of your left arm revealed no blood clot in the veins of your arm which are reassuring. Your blood count revealed a dropped in your red blood cells but not a far enough dropped to give you a transfusion The black and blueness swelling of your arm may be caused by bleeding and your arm which is most likely stopped. Also, if you are not moving her arm this can cause swelling. It is important to move your arm and to keep your arm elevated to reduce the swelling. Dr. Moreau wants you to stop your Eliquis (apixaban) for 1 week Before you restart this medication you should talk to the doctor that prescribed the medicine, Dr. Moreau is recommending that if you restart this medication you started at a lower dose, Eliquis 2.5 mg pills every 12 hours . Follow-up with your doctor in 2 days. Please return to the emergency department if your symptoms get worse or if you develop any symptoms that are concerning to you. <Andrews Jenkins - Last Filed: 10/03/22 11:18> Prescriptions: No Action terazosin 5 mg capsule 5 mg PO DAILY Qty: 90 3RF (DME) kylah.stocking,knee,reg,xlrg Misc See Rx Instructions .ROUTE .MEDSUPPLY Qty: 12 0RF Rx Instructions: As directedcompression stockings bilateral adjustable lower extremity garments (DME) compr.stocking,thigh,reg,x-lrg Misc See Rx Instructions .Route Qty: 12 0RF Rx Instructions: As directed 20-30 mm HG (DME) Juxta Lite Compression wraps - Adjustable -for chronic ulcers with open wounds bilat lower extremities See Rx Instructions .Route .MEDSUPPLY Qty: 2 0RF Rx Instructions: As directed pravastatin 20 mg tablet 20 mg PO BEDTIME Qty: 90 3RF isosorbide mononitrate 30 mg tablet extended release 24 hr 30 mg PO DAILY Qty: 90 3RF amlodipine 5 mg tablet 5 mg PO DAILY Qty: 90 3RF Eliquis 5 mg tablet 5 mg PO BID Qty: 60 5RF Anoro Ellipta 62.5-25 mcg/actuation blister with device 1 ea inhalation DAILY Qty: 60 6RF (DME) lancets [FreeStyle Lancets] 28 gauge misc See Rx Instructions .ROUTE .MEDSUPPLY Qty: 200 3RF Rx Instructions: As directed check BS BID (DME) blood-glucose meter [FreeStyle Lite Meter] Kit See Rx Instructions .ROUTE .MEDSUPPLY Qty: 1 0RF Rx Instructions: As directed (DME) FreeStyle Lite Strips Strip See Rx Instructions .ROUTE .MEDSUPPLY Qty: 200 3RF Rx Instructions: As directed check the BS BID polyethylene glycol 3350 [Miralax] 17 gram powder in packet 17 g PO DAILY PRN (Reason: Constipation) levofloxacin 500 mg Tablet 500 mg PO Q48H Qty: 3 0RF ferrous sulfate 325 mg (65 mg iron) tablet 325 mg PO DAILY Qty: 30 0RF metoprolol tartrate 25 mg tablet 12.5 mg PO BID Qty: 30 0RF (DME) APAP 5-15 cm H20 humidified AIR See Rx Instructions .Route .MEDSUPPLY Qty: 1 0RF Rx Instructions: As directed simethicone [Gas Relief (simethicone)] 80 mg tablet,chewable 80 mg PO BID-QID PRN (Reason: abdominal distention) Qty: 30 0RF calcitriol 0.5 mcg capsule 0.5 mcg PO DAILY albuterol sulfate [ProAir HFA] 90 mcg/actuation HFA aerosol inhaler 2 puff inhalation 6XD PRN (Reason: Shortness Of Breath Or Wheezing) sodium bicarbonate 650 mg tablet 650 mg PO QID <Andrews Jenkins - Last Filed: 10/03/22 11:18>
[2022-10-03 11:58] LABS: Basophils Percent Auto 0.6 % (0-2); Hemoglobin 7.3 g/dl (14.0-18.0); Imm Gran Abs Auto 0.02 X10*3/uL (0.00-0.03); Imm Gran Pct Auto 0.4 % (0.0-0.4); Lymphocytes Absolute Auto 0.4 X10*3/uL (1.2-4.9); Lymphocytes Percent Auto 9.2 % (20-40); MANUAL DIFF FLAG NO; Mean Corpuscular HGB Conc 31.7 g/dl (31.0-36.0); Mean Corpuscular Hemoglobin 32.4 pg (27.0-33.0); Mean Corpuscular Volume 102.2 fL (80.0-98.0); Mean Platelet Volume 9.4 fL (9.4-12.4); Monocytes Absolute Auto 0.3 X10*3/uL (0.1-1.2); Monocytes Percent Auto 7.1 % (2-11); Neutrophils Percent Auto 82.7 % (45-73); Red Blood Count 2.25 X10*6/uL (4.60-5.80); Red Cell Distribution Width 15.8 % (11.0-16.0); White Blood Count 4.8 X10*3/uL (4.8-10.8)
[2022-10-03 11:59] LABS: Platelet Count 72 X10*3/uL (160-400)
[2022-10-03 12:02] LABS: INTERNATIONAL NORM RATIO 1.8 (0.9-1.1); Prothrombin Time 21.1 SEC (10.0-13.1)
[2022-10-03 12:05] LABS: Partial Thromboplastin Time 37.4 SEC (26.0-36.4)
[2022-10-03 12:34] VITALS: BP 110/56; PULSE 75; RESP 16; O2SAT 98
--- NOTE | 2022-10-03 12:56 | PC.NURSE ---
pt calm, cooperative, a&ox4. changed over to hospital gown. noticable red, warm, swollen left arm with 2+ pitting edema. no pain or tenderness. rr even/unlabored. denies sob. at bedside. vss. wctm
[2022-10-03 13:18] LABS: Alanine Aminotransferase 6 U/L (0-40); Albumin Level 3.1 g/dL (3.5-5.0); Alkaline Phosphatase 118 U/L (39-117); Anion Gap 14 (12-20); Aspartate Amino Transferase 17 U/L (5-37); Bilirubin Total 0.7 mg/dL (0.0-1.0); Blood Urea Nitrogen 78 mg/dL (9-16); Calcium 8.1 mg/dL (8.4-10.2); Carbon Dioxide 25 mmol/L (22-29); Chloride 111 mmol/L (96-108); Creatinine Clr Calc Pharmacy 22.3; Estimated Glomerular Filt Rate 15; Glucose Random 80 mg/dL (60-115); Magnesium 1.6 mg/dL (1.6-2.6); Potassium 4.1 mmol/L (3.3-5.1); Sodium 146 mmol/L (135-145); Total Protein 5.5 g/dL (6.5-8.0)
[2022-10-03 14:20] VITALS: BP 113/59; PULSE 75; RESP 18; O2SAT 98
== END 2022-10-03 14:45 | disposition home or self-care (01) ==
PROVIDERS: Physician Assistant; Emergency Provider Emergency Medicine Emergency Medical Services; PCP Internal Medicine
DX: S40.022A Contusion of left upper arm, initial encounter (principal); R07.89 Other chest pain; R60.0 Localized edema; X58.XXXA Exposure to other specified factors, initial encounter; Y93.9 Activity, unspecified; Y92.9 Unspecified place or not applicable; Y99.9 Unspecified external cause status; Z79.899 Other long term (current) drug therapy; Z98.84 Bariatric surgery status; Z87.891 Personal history of nicotine dependence
CPT/HCPCS: 36415; 71046; 80053; 83735; 85025; 85610; 85730; 86850; 86870; 86880; 86900; 86901; 93005; 93971; 99284

== ENCOUNTER 2022-10-06 12:01 | Outpatient (REF) | payer OTHER, SELFPAY ==
[2022-10-06 12:05] LABS: MANUAL DIFF FLAG NO
[2022-10-06 12:13] LABS: Basophils Percent Auto 0.7 % (0-2); Eosinophils Percent Auto 0.6 % (0-4); Hemoglobin 7.7 g/dl (14.0-18.0); Imm Gran Abs Auto 0.02 X10*3/uL (0.00-0.03); Imm Gran Pct Auto 0.4 % (0.0-0.4); Lymphocytes Absolute Auto 0.5 X10*3/uL (1.2-4.9); Lymphocytes Percent Auto 8.4 % (20-40); Mean Corpuscular HGB Conc 32.1 g/dl (31.0-36.0); Mean Corpuscular Hemoglobin 32.6 pg (27.0-33.0); Mean Corpuscular Volume 101.7 fL (80.0-98.0); Mean Platelet Volume 10.1 fL (9.4-12.4); Monocytes Absolute Auto 0.4 X10*3/uL (0.1-1.2); Monocytes Percent Auto 6.9 % (2-11); Neutrophils Absolute Auto 4.4 x10*3/uL (2.0-8.3); Red Blood Count 2.36 X10*6/uL (4.60-5.80); Red Cell Distribution Width 15.5 % (11.0-16.0); White Blood Count 5.4 X10*3/uL (4.8-10.8)
[2022-10-06 12:16] LABS: Platelet Count 92 X10*3/uL (160-400)
[2022-10-06 13:20] LABS: Anion Gap 15 (12-20); Blood Urea Nitrogen 78 mg/dL (9-16); Calcium 8.5 mg/dL (8.4-10.2); Carbon Dioxide 24 mmol/L (22-29); Chloride 111 mmol/L (96-108); Glucose Random 79 mg/dL (60-115); Potassium 4.2 mmol/L (3.3-5.1); Sodium 146 mmol/L (135-145)
[2022-10-06 13:31] LABS: Estimated Glomerular Filt Rate 15
== END 2022-10-06 12:02 | disposition home or self-care (01) ==
LOC: HO.HVNA 12:01
PROVIDERS: Internal Medicine Cardiovascular Disease; Visit Provider Internal Medicine
DX: N17.9 Acute kidney failure, unspecified (principal); N18.9 Chronic kidney disease, unspecified; D61.818 Other pancytopenia; R00.1 Bradycardia, unspecified; I48.91 Unspecified atrial fibrillation; I27.20 Pulmonary hypertension, unspecified; Z95.0 Presence of cardiac pacemaker
CPT/HCPCS: 36415; 80048; 85025; 93280; 99212

== ENCOUNTER → 2022-10-13 16:02 | Outpatient (BNVA) | payer OTHER, SELFPAY | PROVIDERS: PCP Internal Medicine; Visit Provider Nurse Practitioner Family | DX: R06.02 Shortness of breath (principal); R00.1 Bradycardia, unspecified; I48.91 Unspecified atrial fibrillation; I27.20 Pulmonary hypertension, unspecified; N18.32 Chronic kidney disease, stage 3b; D64.9 Anemia, unspecified; Z95.0 Presence of cardiac pacemaker; Z51.89 Encounter for other specified aftercare | CPT/HCPCS: 99212 ==

== ENCOUNTER 2022-10-13 16:42 | Inpatient (IN) | payer OTHER, SELFPAY ==
--- NOTE | ~2022-10-13 | XR_ITS ---
EXAMINATION: XR HAND, RIGHT CLINICAL INFORMATION: Right and swelling COMPARISON: None available. TECHNIQUE: PA, lateral, and oblique views of the right hand. FINDINGS: The bones and soft tissues are normal. No fracture. Alignment is anatomic. Joint spaces are maintained. No erosions or soft tissue calcifications. XR/XR hand RT 2V IMPRESSION: Unremarkable right hand.
--- NOTE | ~2022-10-13 | IR_ITS ---
PROCEDURE: IR INSERTION OF TUNNEL CATHETER CLINICAL INFORMATION: Renal failure COMPARISON: None available. TECHNIQUE: Procedure and risks and benefits including bleeding, infection and pneumothorax were discussed with the patient and informed consent was obtained. All elements of maximal sterile barrier technique followed including use of cap, mask, sterile gown, sterile gloves, a sterile full body drape and hand hygiene. Also followed skin preparation with 2% chlorhexidine for cutaneous antisepsis, and sterile ultrasound preparation with sterile gel and probe cover when applicable. The right neck and chest were prepped and draped in the usual sterile fashion. The skin and soft tissues were anesthetized with lidocaine plain. Using ultrasound guidance and a 5 [place] micropuncture system, right internal jugular vein access was obtained. Over an 018 wire, a 5 [place] dilator was positioned in the skin and soft tissues of the right upper anterior neck were anesthetized with 1% lidocaine plain. A small incision was made. A subcutaneous tunnel from the chest to the neck incision was anesthetized with 1% lidocaine plain. Using a tunneler, a 14.5 [place] permacath was tunneled from the chest to the neck incision. An 035 guidewire was advanced through the 5 [place] dilator into the IVC. Following serial dilatation and through a peel-away sheath, permacath was advanced centrally. Catheter tip is at the cavoatrial junction. The neck incision was closed using a 3 oh absorbable subarticular suture. Chest incision was closed using a 3 0 absorbable mattress suture. Both ports had good blood return, flushed easily and were instilled with heparin 1.6 mL heparin 1000 unit per mL solution. Real-time ultrasound guidance was used to document vein patency and for needle entry. A formal ultrasound picture was recorded. Fluoroscopy time 0.4 minutes. DAP 133 CG Y per centimeter squared. 1 saved fluoroscopic image. Conscious sedation was provided by a registered nurse under my direct supervision with continuous hemodynamic monitoring. Patient received Versed 1 mg and fentanyl 50 mcg intravenously during the procedure. Total [id number] contact time was 18 minutes. FINDINGS: There is a right internal jugular 14.5 [place] 19 cm in length GlidePath permacath with tip projecting over the cavoatrial junction. IR/IR cvc insert central tunnel IMPRESSION: Right internal jugular 14.5 [place] 19 cm in length GlidePath permacath placement.
--- NOTE | ~2022-10-13 | XR_ITS ---
EXAMINATION: XR CHEST CLINICAL INFORMATION: Pain. COMPARISON: Chest radiograph 10/03/2020. TECHNIQUE: 2 views of the chest were obtained. FINDINGS: Stable cardiomegaly. Left-sided pacer with leads projecting over the right atrium and right ventricle. EKG wires overlie the chest. Increased interstitial thickening as well as patchy airspace opacities in the mid and lower lungs. Trace amount of bilateral pleural fluid. No pneumothorax. No acute osseous abnormalities. XR/XR chest 2V IMPRESSION: Constellation of findings are suspicious for worsening pulmonary edema or the presence of an atypical/viral infection. Continued follow-up recommended.
--- NOTE | ~2022-10-13 | US_ITS ---
EXAMINATION: Ultrasound-guided paracentesis CLINICAL INFORMATION: Rule out peritonitis COMPARISON: None. TECHNIQUE: Procedure and risks and benefits including bleeding, infection and low blood pressure were discussed with the patient and informed consent was obtained. The right lower quadrant was prepped and draped in the usual sterile fashion. The skin and soft tissues were anesthetized with 1% lidocaine plain. Using ultrasound guidance and a 4 [place] 1 6 system, access to the ascitic fluid was obtained. 50 mL of clear yellow fluid was removed. Diagnostic specimen was sent as requested by the ordering physician. FINDINGS: There is a moderate amount of ascites. US/US paracentesis abd w/image IMPRESSION: Ultrasound-guided paracentesis.
--- NOTE | ~2022-10-13 | US_ITS ---
EXAMINATION: US ABDOMEN LIMITED CLINICAL INFORMATION: Check for ascites. COMPARISON: Previous CT of the abdomen and pelvis most recent September 2022 TECHNIQUE: Limited 4 quadrant abdominal ultrasound FINDINGS: There is a moderate amount of ascites. US/US abdomen limited IMPRESSION: Moderate amount of ascites.
--- NOTE | ~2022-10-13 | US_ITS ---
EXAMINATION: US VENOUS WITH DOPPLER UPPER EXTREMITY, RIGHT CLINICAL INFORMATION: Evaluate for DVT COMPARISON: None available. TECHNIQUE: Ultrasound of the upper extremity is performed using compression sonography and color and pulse Doppler flow with assessment of augmentation of flow. There is also imaging and Doppler assessment of the jugular and subclavian veins. Spectral analysis with color-flow imaging is performed. FINDINGS: Respiratory variation, normal compression, and augmented flow are noted throughout the upper extremity including the axillary, brachial, cubital, and radial and ulnar veins. There is normal flow in the internal jugular and subclavian veins. There is no visible deep or superficial thrombophlebitis. If the patient's symptoms progress, a followup ultrasound in 5 -7 days might be of value to exclude proximal propagation from a nonvisualized distal arm vein. US/US venous duplex UE RT IMPRESSION: No DVT demonstrated in the right upper extremity
[2022-10-13 16:58] VITALS: BP 120/70; PULSE 75; RESP 20; O2SAT 96; BMI 40.8
[2022-10-13 17:09] VITALS: RESP 18
--- NOTE | 2022-10-13 17:12 | ECG_ITS ---
Test Reason : PAIN Blood Pressure : / mmHG Vent. Rate : 086 BPM Atrial Rate : 086 BPM P-R Int : 000 ms QRS Dur : 192 ms QT Int : 482 ms P-R-T Axes : 000 012 174 degrees QTc Int : 576 ms Ventricular-paced rhythm Abnormal ECG When compared with ECG of 03-OCT-2022 11:32, Premature ventricular complexes are no longer Present Atrial pacing is nolonger present Referred By: Andrews Jenkins Electronically Signed By:PRAMOD DE LEON MD
--- NOTE | 2022-10-13 17:13 | PC.NURSE ---
Pt on stretcher, airway open and patent, pt has slight labored breathing, equal chest rise and fall. Pt a&ox4, skin normal for ethnicity, warm, and dry. Lung sounds clr and equal bilaterally. Pt has pace maker. Bowel sounds present all elizabeth, abdomen has scar that pt reports is from intestine surgery. Abdomen firm, non-tender. Pt has pitting edema in legs, wound on right lower ankle. Pt reports that he has felt short of breath for the last week.
--- NOTE | 2022-10-13 17:24 | ED.GENADULT ---
HPI - General Adult General Chief complaint: Dyspnea Stated complaint: SOB Time Seen by Provider: 10/13/22 16:56 Source: patient, RN notes reviewed and old records reviewed Mode of arrival: ambulatory Limitations: no limitations History of Present Illness HPI narrative: 67-year-old male past medical history significant for chronic kidney disease, liver cirrhosis, CHF, recent pacemaker implantation who presents for evaluation of ?too much fluid. ? Patient presents from his cardiology office, who is Dr Ron, for evaluation of anasarca. Patient reports that he had an 11 lb weight gain in the last week He reports that at rest he feels pretty well, however he feels very short of breath with exertion. He had a pacemaker placed on 09/27/[address] Moreau. The patient was seen here on 10/03/2022 with increased edema and bruising to his left arm. He reports that he has still not yet restarted his Eliquis The patient is reportedly being considered for dialysis but he still makes urine and does not yet have a fistula Related Data Home Medications Medication Instructions Recorded Confirmed calcitriol 0.5 mcg capsule 0.5 mcg PO DAILY 04/03/20 10/13/22 albuterol sulfate 90 mcg/actuation 2 puff inhalation Q4H PRN 07/05/20 10/13/22 aerosol inhaler (ProAir HFA) Shortness Of Breath Or Wheezing sodium bicarbonate 650 mg tablet 650 mg PO QID PRN Gastric Reflux 09/22/22 10/13/22 polyethylene glycol 3350 17 gram 17 g PO DAILY PRN Constipation 09/24/22 10/13/22 oral powder packet (Miralax) terazosin 5 mg capsule 5 mg PO BEDTIME 10/13/22 10/13/22 Previous Rx's Medication Instructions Recorded kylah.stocking,knee,reg,xlrg #12 ea 11/01/20 compr.stocking,thigh,reg,x-lrg #12 ea 05/31/21 Juxta Lite Compression wraps - #2 ea 07/02/21 Adjustable -for chronic ulcers with open wounds bilat lower extremities APAP 5-15 cm H20 humidified AIR #1 ea 09/06/21 pravastatin 20 mg tablet 20 mg PO BEDTIME #90 tabs 09/09/21 isosorbide mononitrate 30 mg 30 mg PO DAILY #90 tabs 01/17/22 tablet,extended release 24 hr amlodipine 5 mg tablet 5 mg PO DAILY #90 tabs 03/28/22 Anoro Ellipta 62.5 mcg-25 1 ea inhalation DAILY #60 ea 07/07/22 mcg/actuation powder for inhalation (umeclidinium-vilanterol) ferrous sulfate 325 mg (65 mg 325 mg PO DAILY #30 tabs 09/30/22 iron) tablet metoprolol tartrate 25 mg tablet 12.5 mg PO BID #30 tabs 09/30/22 blood sugar diagnostic (FreeStyle #200 ea 10/02/22 Lite Strips) blood-glucose meter (FreeStyle #1 ea 10/02/22 Lite Meter kit) lancets 28 gauge (FreeStyle #200 ea 10/02/22 Lancets) apixaban 2.5 mg tablet (Eliquis) 2.5 mg PO BID #60 tabs 10/10/22 Allergies Allergy/AdvReac Type Severity Reaction Status Date / Time No Known Allergies Allergy Verified 10/13/22 17:04 [No Known Allergies*] Review of Systems Constitutional: Constitutional: Denies body ache(s), Denies chills, Denies fever(s), Reports weakness and Reports weight gain Eyes: Eyes: Denies blurry vision Cardiovascular: Cardiovascular: Reports edema, Reports leg edema, Reports dyspnea, Reports dyspnea on exertion and Denies orthopnea Respiratory: Respiratory: Reports dyspnea and Reports dyspnea on exertion Gastrointestinal: Gastrointestinal: Denies abdominal pain Genitourinary: Genitourinary: Denies dysuria Musculoskeletal: Musculoskeletal: Denies arthralgias Integumentary/Breasts: Skin/Breast: Reports wounds (Right lower leg) Neurologic: Reports weakness [facility] Past Medical History Medical History Acute kidney injury superimposed on chronic kidney disease Afib Anasarca Anemia Anemia BPH (benign prostatic hyperplasia) Bradycardia Chronic kidney disease Cirrhosis CKD (chronic kidney disease) stage 4, GFR 15-29 ml/min COPD (chronic obstructive pulmonary disease) Depression, major Diabetic retinopathy Diastolic heart failure Edema Essential thrombocytopenia Fistula Gout High cholesterol HTN (hypertension) Hypercholesterolemia Incomplete emptying of bladder due to benign prostatic hyperplasia Lumbar degenerative disc disease Lymphedema Obesity (BMI 30-39.9) Obstructive sleep apnea Osteoarthritis Pacemaker Pancytopenia Paroxysmal A-fib Peripheral neuropathy Peripheral vascular disease Pulmonary hypertension Pulmonary hypertension Scrotal edema SLE (systemic lupus erythematosus related syndrome) Type 2 diabetes mellitus with hyperglycemia Venous stasis dermatitis Surgical History H/O prior ablation treatment History of bilateral cataract extraction History of bowel diversion surgery History of carpal tunnel release History of gastric surgery History of tonsillectomy Family History Family History Father Prostate cancer CVD (cardiovascular disease) Mother Hemochromatosis Brother Motor vehicle accident Sister CAD (coronary artery disease) Maternal Grandfather Myocardial infarction Social History Social History Household Members: Spouse Housing: House Alcohol intake: never Patient Tobacco Use Status: Former Tobacco user Smoked in Last 30 Days: No e-Cigarette/Vaping Use: Never Used Second Hand Smoke Exposure: Yes Use of substances other than those prescribed or required for medical reasons: No Substance Use Type: Marijuana Advance Directives: No Advance Directives Information Provided: Yes service: No Current occupational status: retired Cognitive needs: Yes Hearing needs: Yes Vision needs: Yes Physical Exam ED Vital Signs: Vital Signs - 24 hr 10/13/22 16:58 10/13/22 17:09 10/13/22 18:12 Pulse Rate 75 75 Respiratory Rate 20 18 16 Blood Pressure 120/70 106/57 L Pulse Oximetry 96 96 Oxygen Delivery Method Room Air Room Air BMI result Body Mass Index 40.8 Const General: no acute distress, alert and awake Nutritional Appearance: well nourished Orientation/consciousness: patient oriented x3 HENMT Head: Yes normocephalic and Yes atraumatic Throat: Yes posterior oropharynx normal Eyes Eyelids: Yes eyelids normal Conjunctivae: conjunctivae normal Sclerae: sclerae normal Corneas: corneas normal Pupils: Equal, round and reactive pupils present EOM: EOMs intact bilaterally Neck Neck: Yes full ROM Resp Other: Diminished without adventitious breath sounds Effort & Inspection: normal respiratory effort, able to speak in complete sentences, no audible wheezes and not labored Auscultation: clear to auscultation bilaterally, no crackles, no rhonchi, no wheezes and diminished lung sounds Cardio Rate: regular rate Rhythm: regular rhythm GI Inspection: Yes Abdominal wall edema and Yes distended Palpation (GI): Soft to palpation, nontender and no guarding Auscultation: normoactive bowel sounds Skin Other: Superficial approximately 3 cm wound to the right lower leg. No surrounding erythema or drainage from the wound General skin exam: no rashes or lesions noted and elasticity normal Neuro General: patient oriented x3 Cranial nerves: Yes CN's II-XII intact bilaterally, Yes Equal, round and reactive pupils present and Yes Bilaterally intact EOM present Cognition (Neuro): normal cognition Extrem Other: Moving all extremities well without any obvious deformities Course Reevaluation(s) Time: 19:03 Reevaluation #2: Patient is anemic with an H&H of 7.5 in 23.4 which is consistent with his recent baseline. His creatinine is 4.06 also consistent with his recent baseline. He has a BNP of 962 which is over double his recent baseline. His chest x-ray shows increased pulmonary edema. I discussed with Nephrology, Dr. Byrne who agrees with IV diuresis and his team will see the patient tomorrow. The patient will be given Bumex 2 mg IV Medical Decision Making Medical Decision Making MDM Narrative: Patient is a quite complicated medical history. He has significant edema to his abdomen. This is likely multifactorial S in any allergy. The patient has history of heart failure, liver disease and kidney disease which can all pleural this. The patient is not currently on his Eliquis due to his recent surgery and subsequent bruising afterwards. He is quite comfortable at rest. Will start with labs, chest x-ray, EKG. The patient will likely require diuretics, but as he is medically stable will wait further workup. Differential Diagnosis Fluid overload CHF Anasarca Renal failure Liver failure Hepatic renal syndrome Lab Data 10/13/22 17:57 10/13/22 17:57 Labs: Lab Results 10/13/22 10/13/22 10/13/22 Range/Units 17:57 17:57 17:57 WBC 3.5 L (4.8-10.8) X10*3/uL RBC 2.31 L (4.60-5.80) X10*6/uL Hgb 7.5 L (14.0-18.0) g/dl Hct 23.4 L (42.0-52.0) % MCV 101.3 H (80.0-98.0) fL MCH 32.5 (27.0-33.0) pg MCHC 32.1 (31.0-36.0) g/dl RDW 15.4 (11.0-16.0) % Plt Count 90 L (160-400) X10*3/uL MPV 10.4 (9.4-12.4) fL Immature Gran % (Auto) 0.9 H (0.0-0.4) % Neut % (Auto) 77.2 H (45-73) % Lymph % (Auto) 9.2 L (20-40) % [place] % (Auto) 10.9 (2-11) % Eos % (Auto) 0.9 (0-4) % Baso % (Auto) 0.9 (0-2) % Lymph # (Auto) 0.3 L (1.2-4.9) X10*3/uL [place] # (Auto) 0.4 (0.1-1.2) X10*3/uL Eos # (Auto) 0.0 (0.0-0.4) X10*3/uL Baso # (Auto) 0.0 (0.0-0.2) X10*3/uL Abs Immat Gran (auto) 0.03 (0.00-0.03) X10*3/uL Absolute Neuts (auto) 2.7 (2.0-8.3) x10*3/uL Absolute Nucleated RBC 0.000 (0.0-0.012) X10*3/uL Nucleated RBC % (auto) 0.0 (0.0-0.2) /100WBC PT 16.2 H (10.0-13.1) SEC INR 1.4 H (0.9-1.1) APTT 35.3 (26.0-36.4) SEC Sodium 144 (135-145) mmol/L Potassium 4.2 (3.3-5.1) mmol/L Chloride 112 H (96-108) mmol/L Carbon Dioxide 22 (22-29) mmol/L Anion Gap 14 (12-20) BUN 98 H (9-16) mg/dL Creatinine 4.06 H* (0.5-1.4) mg/dL Estim Creat Clear Calc 23.8 Estimated GFR 15 Random Glucose 90 (60-115) mg/dL Calcium 8.4 (8.4-10.2) mg/dL Phosphorus 5.9 H (2.7-4.5) mg/dL Magnesium 1.7 (1.6-2.6) mg/dL Total Bilirubin 0.7 (0.0-1.0) mg/dL AST 18 (5-37) U/L ALT 13 (0-40) U/L Alkaline Phosphatase 130 H (39-117) U/L Troponin I High Sens (<3.5-35.0) ng/L B-Natriuretic Peptide (<100) pg/mL Total Protein 5.6 L (6.5-8.0) g/dL Albumin 3.1 L (3.5-5.0) g/dL Lipase 32 (8-78) U/L Influenza Type A (PCR) (Negative) Influenza Type B (PCR) (Negative) RSV RNA Qual (PCR) (Negative) SARS-CoV-2 RNA (RT-PCR) (Negative) 10/13/22 10/13/22 10/13/22 Range/Units 17:57 17:57 17:57 WBC (4.8-10.8) X10*3/uL RBC (4.60-5.80) X10*6/uL Hgb (14.0-18.0) g/dl Hct (42.0-52.0) % MCV (80.0-98.0) fL MCH (27.0-33.0) pg MCHC (31.0-36.0) g/dl RDW (11.0-16.0) % Plt Count (160-400) X10*3/uL MPV (9.4-12.4) fL Immature Gran % (Auto) (0.0-0.4) % Neut % (Auto) (45-73) % Lymph % (Auto) (20-40) % [place] % (Auto) (2-11) % Eos % (Auto) (0-4) % Baso % (Auto) (0-2) % Lymph # (Auto) (1.2-4.9) X10*3/uL [place] # (Auto) (0.1-1.2) X10*3/uL Eos # (Auto) (0.0-0.4) X10*3/uL Baso # (Auto) (0.0-0.2) X10*3/uL Abs Immat Gran (auto) (0.00-0.03) X10*3/uL Absolute Neuts (auto) (2.0-8.3) x10*3/uL Absolute Nucleated RBC (0.0-0.012) X10*3/uL Nucleated RBC % (auto) (0.0-0.2) /100WBC PT (10.0-13.1) SEC INR (0.9-1.1) APTT (26.0-36.4) SEC Sodium (135-145) mmol/L Potassium (3.3-5.1) mmol/L Chloride (96-108) mmol/L Carbon Dioxide (22-29) mmol/L Anion Gap (12-20) BUN (9-16) mg/dL Creatinine (0.5-1.4) mg/dL Estim Creat Clear Calc Estimated GFR Random Glucose (60-115) mg/dL Calcium (8.4-10.2) mg/dL Phosphorus (2.7-4.5) mg/dL Magnesium (1.6-2.6) mg/dL Total Bilirubin (0.0-1.0) mg/dL AST (5-37) U/L ALT (0-40) U/L Alkaline Phosphatase (39-117) U/L Troponin I High Sens 27.7 (<3.5-35.0) ng/L B-Natriuretic Peptide 962 H (<100) pg/mL Total Protein (6.5-8.0) g/dL Albumin (3.5-5.0) g/dL Lipase (8-78) U/L Influenza Type A (PCR) NEGATIVE (Negative) Influenza Type B (PCR) NEGATIVE (Negative) RSV RNA Qual (PCR) NEGATIVE (Negative) SARS-CoV-2 RNA (RT-PCR) NEGATIVE (Negative) Discharge Plan Discharge Clinical Impression: Congestive heart failure Patient Disposition: Admitted As Inpatient Prescriptions: No Action (DME) kylah.stocking,knee,reg,xlrg Misc See Rx Instructions .ROUTE .MEDSUPPLY Qty: 12 0RF Rx Instructions: As directedcompression stockings bilateral adjustable lower extremity garments (DME) compr.stocking,thigh,reg,x-lrg Misc See Rx Instructions .Route Qty: 12 0RF Rx Instructions: As directed 20-30 mm HG (DME) Juxta Lite Compression wraps - Adjustable -for chronic ulcers with open wounds bilat lower extremities See Rx Instructions .Route .MEDSUPPLY Qty: 2 0RF Rx Instructions: As directed pravastatin 20 mg tablet 20 mg PO BEDTIME Qty: 90 3RF isosorbide mononitrate 30 mg tablet extended release 24 hr 30 mg PO DAILY Qty: 90 3RF amlodipine 5 mg tablet 5 mg PO DAILY Qty: 90 3RF Anoro Ellipta 62.5-25 mcg/actuation blister with device 1 ea inhalation DAILY Qty: 60 6RF (DME) lancets [FreeStyle Lancets] 28 gauge misc See Rx Instructions .ROUTE .MEDSUPPLY Qty: 200 3RF Rx Instructions: As directed check BS BID (DME) blood-glucose meter [FreeStyle Lite Meter] Kit See Rx Instructions .ROUTE .MEDSUPPLY Qty: 1 0RF Rx Instructions: As directed (DME) FreeStyle Lite Strips Strip See Rx Instructions .ROUTE .MEDSUPPLY Qty: 200 3RF Rx Instructions: As directed check the BS BID Eliquis 2.5 mg tablet 2.5 mg PO BID Qty: 60 3RF polyethylene glycol 3350 [Miralax] 17 gram powder in packet 17 g PO DAILY PRN (Reason: Constipation) ferrous sulfate 325 mg (65 mg iron) tablet 325 mg PO DAILY Qty: 30 0RF metoprolol tartrate 25 mg tablet 12.5 mg PO BID Qty: 30 0RF terazosin 5 mg capsule 5 mg PO BEDTIME (DME) APAP 5-15 cm H20 humidified AIR See Rx Instructions .Route .MEDSUPPLY Qty: 1 0RF Rx Instructions: As directed calcitriol 0.5 mcg capsule 0.5 mcg PO DAILY albuterol sulfate [ProAir HFA] 90 mcg/actuation HFA aerosol inhaler 2 puff inhalation Q4H PRN (Reason: Shortness Of Breath Or Wheezing) sodium bicarbonate 650 mg tablet 650 mg PO QID PRN (Reason: Gastric Reflux)
[2022-10-13 18:02] LABS: MANUAL DIFF FLAG NO
[2022-10-13 18:07] LABS: Basophils Percent Auto 0.9 % (0-2); Eosinophils Percent Auto 0.9 % (0-4); Hematocrit 23.4 % (42.0-52.0); Hemoglobin 7.5 g/dl (14.0-18.0); Imm Gran Abs Auto 0.03 X10*3/uL (0.00-0.03); Imm Gran Pct Auto 0.9 % (0.0-0.4); Lymphocytes Absolute Auto 0.3 X10*3/uL (1.2-4.9); Lymphocytes Percent Auto 9.2 % (20-40); Mean Corpuscular HGB Conc 32.1 g/dl (31.0-36.0); Mean Corpuscular Hemoglobin 32.5 pg (27.0-33.0); Mean Corpuscular Volume 101.3 fL (80.0-98.0); Mean Platelet Volume 10.4 fL (9.4-12.4); Monocytes Absolute Auto 0.4 X10*3/uL (0.1-1.2); Monocytes Percent Auto 10.9 % (2-11); Neutrophils Absolute Auto 2.7 x10*3/uL (2.0-8.3); Neutrophils Percent Auto 77.2 % (45-73); Red Blood Count 2.31 X10*6/uL (4.60-5.80); Red Cell Distribution Width 15.4 % (11.0-16.0); White Blood Count 3.5 X10*3/uL (4.8-10.8)
[2022-10-13 18:10] LABS: Platelet Count 90 X10*3/uL (160-400)
[2022-10-13 18:12] VITALS: BP 106/57; PULSE 75; RESP 16; O2SAT 96
[2022-10-13 18:15] LABS: INTERNATIONAL NORM RATIO 1.4 (0.9-1.1); Prothrombin Time 16.2 SEC (10.0-13.1)
[2022-10-13 18:17] LABS: Partial Thromboplastin Time 35.3 SEC (26.0-36.4)
[2022-10-13 18:30] LABS: Alanine Aminotransferase 13 U/L (0-40); Albumin Level 3.1 g/dL (3.5-5.0); Alkaline Phosphatase 130 U/L (39-117); Anion Gap 14 (12-20); Aspartate Amino Transferase 18 U/L (5-37); B Type Natriuretic Peptide 962 pg/mL (<100); Bilirubin Total 0.7 mg/dL (0.0-1.0); Blood Urea Nitrogen 98 mg/dL (9-16); Calcium 8.4 mg/dL (8.4-10.2); Carbon Dioxide 22 mmol/L (22-29); Chloride 112 mmol/L (96-108); Creatinine Clr Calc Pharmacy 23.8; Estimated Glomerular Filt Rate 15; Glucose Random 90 mg/dL (60-115); Lipase 32 U/L (8-78); Magnesium 1.7 mg/dL (1.6-2.6); Phosphorus 5.9 mg/dL (2.7-4.5); Potassium 4.2 mmol/L (3.3-5.1); Sodium 144 mmol/L (135-145); Total Protein 5.6 g/dL (6.5-8.0)
[2022-10-13 18:34] LABS: Troponin-I High Sensitivity 27.7 ng/L (<3.5-35.0)
--- NOTE | 2022-10-13 18:40 | PHA.MEDREC ---
Pharmacy Consult ? Medication Reconciliation Pharmacy has completed the medication reconciliation. SPOKE WITH PT. HE SAID HE IS OFF THE APIXABAN FOR A WEEK
[2022-10-13 18:57] LABS: Influenza A PCR NEGATIVE (Negative); Influenza B PCR NEGATIVE (Negative); Resp Syncy Virus RNA Qual PCR NEGATIVE (Negative); SARS COV2 PCR INHOUSE NEGATIVE (Negative)
[2022-10-13] MEDS: Bumetanide 1 MG/4 ML VIAL 2 MG IVPUSH (19:26)
[2022-10-13 20:22] VITALS: BP 122/60; PULSE 86; RESP 17; TEMP 36.5; O2SAT 97
--- NOTE | 2022-10-13 21:36 | P.HPHOSP_ITS ---
I agree with findings of Mr Cook. in HPI, assessment and plan. Patient will be admitted for volume overload secondary to underlying CHF as well as CKD, will consult GI, Nephrology, continue diuretics, for full H&P please see Kushal History of Present Illness Date of Service: 10/13/22 Attending physician on admission: Eleanor White Chief Complaint: SOB with exertion Pt is a 67-year-old male with a PMH significant for?CKD stage 4 not on dialysis, [id number]-fvymuqhks diabetes type 2, COPD, HTN, HLD, ZEYAD, and AFib on Eliquis who presents to the ED with?worsening SOB with exertion for the past week. Pt was seen Dr. Ron and Cardiology for follow-up appointment when he was noted to have a 12 lb weight gain during the past week. Patient complained of increased swelling in his legs and abdomen as well as difficulty with walking due to shortness breath and being off balance. Occasional dry cough. Was sent to the ED for further evaluation. Patient also notes a skin tear on right ankle that occurred approximately 1 week ago. Patient is not currently on home supplemental oxygen. Patient denies chest pain/pressure, palpitations. No fever, chills, nausea, vomiting, diarrhea, abdominal pain. Patient denies orthopnea or paroxysmal nocturnal dyspnea. Of note, patient had a dual chamber pacemaker placed 3 weeks ago here at the hospital and has not yet restarted his Eliquis because of some postop bruising on his left chest and back. Patient also recently had an unsuccessful attempt at placing a fistula in his left arm in anticipation of starting on hemodialysis. He says he has an appointment to try again this Thursday. In the ED patient was afebrile but mildly hypotensive at 106/57. Labs were significant for chronic stable pancytopenia: WBC 3.5, H&H 7.5/23.4, platelets 90. Creatinine 4.06 (at baseline), phosphorus 5.9, BNP 962 (nearly double bas selene). CXR showed suspicion for worsening pulmonary edema versus presence atypical/viral infection. EKG demonstrated ventricular paced rhythm with no evidence ST elevations depressions. Last echocardiogram was done on 09/25/2022 and found low normal LV systolic function with mild LVH with at least grade 2 diastolic dysfunction. Pt was treated with bumetanide 2 mg IV. Pt will be admitted to the hospital treatment and further evaluation of acute CHF exacerbation. Review of Systems Review of Systems: Shortness of breath with exertion 12 lb weight gain Increased lower leg and abdominal edema No orthopnea or PND Patient denies chest pain/pressure, palpitations No fever, chills, nausea, vomiting, diarrhea Denies abdominal pain Yes all other systems are reviewed and are negative FOR[facility]LY [facility] Medical History Acute kidney injury superimposed on chronic kidney disease Afib Anasarca Anemia Anemia BPH (benign prostatic hyperplasia) Bradycardia Chronic kidney disease Cirrhosis CKD (chronic kidney disease) stage 4, GFR 15-29 ml/min COPD (chronic obstructive pulmonary disease) Depression, major Diabetic retinopathy Diastolic heart failure Edema Essential thrombocytopenia Fistula Gout High cholesterol HTN (hypertension) Hypercholesterolemia Incomplete emptying of bladder due to benign prostatic hyperplasia Lumbar degenerative disc disease Lymphedema Obesity (BMI 30-39.9) Obstructive sleep apnea Osteoarthritis Pacemaker Pancytopenia Paroxysmal A-fib Peripheral neuropathy Peripheral vascular disease Pulmonary hypertension Pulmonary hypertension Scrotal edema SLE (systemic lupus erythematosus related syndrome) Type 2 diabetes mellitus with hyperglycemia Venous stasis dermatitis Family History Father Prostate cancer CVD (cardiovascular disease) Mother Hemochromatosis Brother Motor vehicle accident Sister CAD (coronary artery disease) Maternal Grandfather Myocardial infarction Surgical History H/O prior ablation treatment History of bilateral cataract extraction History of bowel diversion surgery History of carpal tunnel release History of gastric surgery History of tonsillectomy Social History Household Members: Spouse Housing: House Alcohol intake: never Patient Tobacco Use Status: Former Tobacco user Smoked in Last 30 Days: No e-Cigarette/Vaping Use: Never Used Second Hand Smoke Exposure: Yes Use of substances other than those prescribed or required for medical reasons: No Substance Use Type: Marijuana Advance Directives: No Advance Directives Information Provided: Yes service: No Current occupational status: retired Cognitive needs: Yes Hearing needs: Yes Vision needs: Yes Meds Allergies Allergy/AdvReac Type Severity Reaction Status Date / Time No Known Allergies Allergy Verified 10/13/22 17:04 [No Known Allergies*] Active Medications: Current Medications Pharmacy Consult (Consult Rx Perform Med Rec) 1 each MISCELLANE ONCE PRN PRN Reason: Consult order Home Medications Medication Instructions Recorded Confirmed Last Taken Type calcitriol 0.5 mcg capsule 0.5 mcg PO DAILY 04/03/20 10/13/22 10/13/22 History albuterol sulfate 90 mcg/actuation 2 puff inhalation Q4H PRN 07/05/20 10/13/22 10/13/22 History aerosol inhaler (ProAir HFA) Shortness Of Breath Or Wheezing sodium bicarbonate 650 mg tablet 650 mg PO QID PRN Gastric Reflux 09/22/22 10/13/22 10/13/22 History polyethylene glycol 3350 17 gram 17 g PO DAILY PRN Constipation 09/24/22 10/13/22 10/13/22 History oral powder packet (Miralax) terazosin 5 mg capsule 5 mg PO BEDTIME 10/13/22 10/13/22 10/13/22 History Physical Exam Vital Signs and Narrative: Vital Signs: Last Vital Signs Temp 97.7 F 10/13/22 20:22 Pulse 86 10/13/22 20:22 Resp 17 10/13/22 20:22 BP 122/60 10/13/22 20:22 Pulse Ox 97 10/13/22 20:22 O2 Del Method Room Air 10/13/22 20:22 BMI result Body Mass Index 40.8 Constitutional: Alert, in no acute respiratory distress. Mental Status: Oriented to person, place and time. Eyes: Pupils are equal, round, and reactive to light. Ear, Nose, and Throat: Oropharynx clear, mucous membranes moist. Ears and nose without deformities. Trachea midline. Respiratory: Clear to auscultation bilaterally. No wheezing, rales, or rhonchi. Diminished breath sounds Cardiovascular: S1, S2 regular. No murmurs, rubs, or gallops. Gastrointestinal: Abdomen soft, non-tender, obese, distended. Normal bowel sounds. Neurologic: Cranial nerves II-XII are grossly intact bilaterally. No focal neurological deficits. Moves all extremities spontaneously. Extremities: Bilateral 2+ pitting edema. 3 cm skin tear on lateral aspect of right ankle, non-draining, non erythematous, and superficial. Bilateral chronic venous stasis dermatitis. See picture below. Psychiatric: Normal mood and affect. Results Labs 10/13/22 17:57 10/13/22 17:57 Labs: Laboratory Results - last 24 hr 10/13/22 10/13/22 10/13/22 17:57 17:57 17:57 MCV 101.3 H MCH 32.5 MCHC 32.1 RDW 15.4 Plt Count 90 L MPV 10.4 Immature Gran % (Auto) 0.9 H Neut % (Auto) 77.2 H Lymph % (Auto) 9.2 L [place] % (Auto) 10.9 Eos % (Auto) 0.9 Baso % (Auto) 0.9 Lymph # (Auto) 0.3 L [place] # (Auto) 0.4 Eos # (Auto) 0.0 Baso # (Auto) 0.0 Abs Immat Gran (auto) 0.03 Absolute Neuts (auto) 2.7 Absolute Nucleated RBC 0.000 Nucleated RBC % (auto) 0.0 PT 16.2 H INR 1.4 H APTT 35.3 Anion Gap 14 Estim Creat Clear Calc 23.8 Estimated GFR 15 Random Glucose 90 Calcium 8.4 Phosphorus 5.9 H Magnesium 1.7 Total Bilirubin 0.7 AST 18 ALT 13 Alkaline Phosphatase 130 H Troponin I High Sens B-Natriuretic Peptide Total Protein 5.6 L Albumin 3.1 L Lipase 32 Influenza Type A (PCR) Influenza Type B (PCR) RSV RNA Qual (PCR) SARS-CoV-2 RNA (RT-PCR) 10/13/22 10/13/22 10/13/22 17:57 17:57 17:57 MCV MCH MCHC RDW Plt Count MPV Immature Gran % (Auto) Neut % (Auto) Lymph % (Auto) [place] % (Auto) Eos % (Auto) Baso % (Auto) Lymph # (Auto) [place] # (Auto) Eos # (Auto) Baso # (Auto) Abs Immat Gran (auto) Absolute Neuts (auto) Absolute Nucleated RBC Nucleated RBC % (auto) PT INR APTT Anion Gap Estim Creat Clear Calc Estimated GFR Random Glucose Calcium Phosphorus Magnesium Total Bilirubin AST ALT Alkaline Phosphatase Troponin I High Sens 27.7 B-Natriuretic Peptide 962 H Total Protein Albumin Lipase Influenza Type A (PCR) NEGATIVE Influenza Type B (PCR) NEGATIVE RSV RNA Qual (PCR) NEGATIVE SARS-CoV-2 RNA (RT-PCR) NEGATIVE Imaging Radiologist's Impressions: Impressions Chest X-Ray 10/13/22 17:35 IMPRESSION: Constellation of findings are suspicious for worsening pulmonary edema or the presence of an atypical/viral infection. Continued follow-up recommended. Assessment and Plan (1) Congestive heart failure: Status: Acute Plan Pt is a 67-year-old male with a PMH significant for?CKD stage 4 not on dialysis, [id number] diabetes type 2, COPD, HTN, HLD, ZEYAD, and AFib on Eliquis who presents to the ED with?worsening SOB with exertion for the past week. Pt will be admitted to the hospital treatment and further evaluation of acute CHF exacerbation. Acute HFpEF exacerbation Patient with SOB, 12 lb weight gain in past week, increased lower leg and abdominal edema, elevated BNP, CXR with evidence of pulmonary edema IV diuretics: Bumex 2mg, per nephrology Follow lytes, mg, I/O Daily weights, low-salt diet Last echocardiogram on 09/25/2022 found low normal LV systolic function with mild LVH and at least grade 2 diastolic dysfunction Cardiology consult Monitor on telemetry Hyperphosphatemia Patient's phosphorus 5.9, likely secondary to patient's CKD Low phosphorus diet Follow phosphorus levels CKD stage 4 Patient creatinine 4.06, estimated GFR 15 Stable, at baseline Nephrology consult Paroxysmal atrial fibrillation Continue metoprolol Eliquis being held by Cardiology d/t bruising from pacemaker implantation Non insulin-dependent diabetes type 2, diet-controlled Patient not on home meds Cover with sliding scale insulin HTN Continue amlodipine COPD Not in acute exacerbation Continue home inhalers DNI Attending:?Dr. White DVT Prophylaxis: Heparin Pt will require a hospitalization of at least two nights for treatment of?acute HFpEF exacerbation with IV diuretics and specialist consults. Time Spent With Patient Time: Total time managing care of this patient today ____ minutes. Quality Stroke Does the patient have a stroke diagnosis?: No VTE Prior VTE?: No VTE Risk Level:: Medical - moderate - high VTE Device Contraindication: Treatment Not Indicated VTE Drug Contraindication: N/A - Med Ordered
[2022-10-13] MEDS: Heparin Sodium,Porcine 5,000 UNIT/ML VIAL 5000 UNIT SUBCUT (23:45)
[2022-10-13] MEDS: Metoprolol Tartrate 12.5 MG HALFTAB PO (23:57)
[2022-10-13] MEDS: Pravastatin Sodium 20 MG TABLET PO (23:57)
[2022-10-14] VITALS (12 sets, daily range): BP systolic 94–153; BP diastolic 59–87; PULSE 67–91; RESP 16–20; TEMP 36.1–36.7; O2SAT 93–97
--- NOTE | 2022-10-14 00:02 | PC.NURSE ---
handoff to augusto kwon
[2022-10-14 01:08] LABS: Appearance Urine Clear; Color Urine Yellow; Glucose Urine UA Negative (Negative); Leukocyte Esterase Urine Small (1+) (Negative); Nitrite Urine Negative (Negative); UMIC TRIGGER UACC YES; Urine Blood Negative (Negative); Urine Ketones Negative (Negative); Urine Protein Negative (Neg-Trace)
[2022-10-14 01:20] LABS: Bacteria Urine None Seen (None Seen); Hyaline Casts Urine 0-2 /LPF (0-2); RBC Urine 0-2 /HPF (0-2); Squamous Epithelial Cell Urine 0-2 /HPF (0-2); UACC Culture Trigger YES; WBC Urine 0-5 /HPF (0-5)
[2022-10-14 02:17] LABS: Glucose, Whole Blood 78 mg/dL (60-115)
--- NOTE | 2022-10-14 02:45 | PC.NURSE ---
Pt a&o, no sign of distress, pt repositioned for comfort. Will continue to monitor.
--- NOTE | 2022-10-14 06:26 | PC.NURSE ---
pt reposition for comfort, attempted to call report, Rn will call back.
[2022-10-14] MEDS: Heparin Sodium,Porcine 5,000 UNIT/ML VIAL 5000 UNIT SUBCUT ×3 (06:36→21:49)
[2022-10-14] MEDS: 0.9 % Sodium Chloride Flush 3 ML SYRINGE IVFLUSH ×2 (06:37→09:29)
[2022-10-14 07:13] LABS: Glucose, Whole Blood 79 mg/dL (60-115)
[2022-10-14 07:53] LABS: Anion Gap 18 (12-20); Blood Urea Nitrogen 97 mg/dL (9-16); Calcium 8.4 mg/dL (8.4-10.2); Carbon Dioxide 19 mmol/L (22-29); Chloride 111 mmol/L (96-108); Creatinine Clr Calc Pharmacy 24.9; Estimated Glomerular Filt Rate 15; Glucose Random 70 mg/dL (60-115); Magnesium 1.7 mg/dL (1.6-2.6); Phosphorus 5.6 mg/dL (2.7-4.5); Potassium 4.3 mmol/L (3.3-5.1); Sodium 144 mmol/L (135-145)
--- NOTE | 2022-10-14 08:36 | MHC.CM.PN ---
CM met with Patient at bedside and addressed IMM with him, providing him with the original and placing a copy on the chart. Patient lives in a house with his /HCP and he uses a walker to assist with mobility. Patient states that he is active with [facility] and home/resume said services is the goal. CM has initiated and will follow for dc planning. Patient has received Pfizer/Covid vax x3 and his PCP is Dr. Wilson Po.
[2022-10-14] MEDS: Metoprolol Tartrate 12.5 MG HALFTAB PO (09:28)
[2022-10-14] MEDS: Bumetanide 1 MG/4 ML VIAL 2 MG IVPUSH (09:29)
[2022-10-14] MEDS: amLODIPine Besylate 5 MG TABLET PO (09:29)
[2022-10-14] MEDS: Ferrous Sulfate 324 MG TABLET.DR PO (09:29)
[2022-10-14] MEDS: Isosorbide Mononitrate 30 MG TAB.ER.24H PO (09:29)
[2022-10-14] MEDS: calcitrioL 0.25 MCG CAPSULE 0.5 MCG PO (09:30)
[2022-10-14 09:54] LABS: Iron 46 mcg/dL (45-160); Percent Iron Saturation 24 % (15-50); Total Iron Binding Capacity 194 mcg/dL (228-428); Unsaturated Iron Binding 148 ug/dL
[2022-10-14 10:28] LABS: Ferritin 449 ng/mL (20-250); Folate 4.2 ng/mL (> or = 4.0); Vitamin B12 875 pg/mL (200-900)
--- NOTE | 2022-10-14 10:38 | PM.CNNEP ---
History of Present Illness Reason for Consult Consult date: 10/14/22 Reason for consult: CKD Chief Complaint Chief complaint: Acute chf exacerbation History of Present Illness Narrative: 67-year-old male with a PMH significant for?CKD stage 4 not on dialysis, [id number] diabetes type 2, COPD, HTN, HLD, ZEYAD, and AFib on Eliquis who presents to the ED with?worsening SOB with exertion for the past week. Pt was seen Dr. Ron and Cardiology for follow-up appointment when he was noted to have a 12 lb weight gain during the past week.? Patient complained of increased swelling in his legs and abdomen as well as difficulty with walking due to shortness breath and being off balance.? Occasional dry cough.? Was sent to the ED for further evaluation.? Patient also notes a skin tear on right ankle that occurred approximately 1 week ago.? Patient is not currently on home supplemental oxygen.? Patient denies chest pain/pressure, palpitations.? No fever, chills, nausea, vomiting, diarrhea, abdominal pain.? Patient denies orthopnea or paroxysmal nocturnal dyspnea. Of note, patient had a dual chamber pacemaker placed 3 weeks ago here at the hospital and has not yet restarted his Eliquis because of some postop bruising on his left chest and back.? Patient also recently had an unsuccessful attempt at placing a fistula in his left arm in anticipation of starting on hemodialysis. He says he has an appointment to try again this Thursday. Review of Systems Review of Systems Shortness of breath with exertion 12 lb weight gain Increased lower leg and abdominal edema No orthopnea or PND Patient denies chest pain/pressure, palpitations No fever, chills, nausea, vomiting, diarrhea Denies abdominal pain ? Yes all other systems are reviewed and are negative [facility]LY [facility] Past Medical History Medical History Acute kidney injury superimposed on chronic kidney disease Afib Anasarca Anemia Anemia BPH (benign prostatic hyperplasia) Bradycardia Chronic kidney disease Cirrhosis CKD (chronic kidney disease) stage 4, GFR 15-29 ml/min COPD (chronic obstructive pulmonary disease) Depression, major Diabetic retinopathy Diastolic heart failure Edema Essential thrombocytopenia Fistula Gout High cholesterol HTN (hypertension) Hypercholesterolemia Incomplete emptying of bladder due to benign prostatic hyperplasia Lumbar degenerative disc disease Lymphedema Obesity (BMI 30-39.9) Obstructive sleep apnea Osteoarthritis Pacemaker Pancytopenia Paroxysmal A-fib Peripheral neuropathy Peripheral vascular disease Pulmonary hypertension Pulmonary hypertension Scrotal edema SLE (systemic lupus erythematosus related syndrome) Type 2 diabetes mellitus with hyperglycemia Venous stasis dermatitis Family History Family History Father Prostate cancer CVD (cardiovascular disease) Mother Hemochromatosis Brother Motor vehicle accident Sister CAD (coronary artery disease) Maternal Grandfather Myocardial infarction Surgical History Surgical History H/O prior ablation treatment History of bilateral cataract extraction History of bowel diversion surgery History of carpal tunnel release History of gastric surgery History of tonsillectomy Social History Social History Household Members: Spouse Housing: House Do you presently have visiting nurse or other home services: Yes Alcohol intake: never Patient Tobacco Use Status: Former Tobacco user Tobacco use type: Cigarette Smoked in Last 30 Days: No e-Cigarette/Vaping Use: Former Use Patient Interested in Nicotine Replacement: No Patient Given Instructions on How to Stop Smoking: No Second Hand Smoke Exposure: Yes Use of substances other than those prescribed or required for medical reasons: No Substance Use Type: Marijuana Currently Displaying Signs/Symptoms of Drug Intoxication Withdrawal: No Any prior treatment program specific to substance use: No Have you been hit, kicked, punched, or otherwise hurt by someone within the past year? If so, by whom?: No Do you feel safe in your current relationship?: Yes Is there a partner from a previous relationship who is making you feel unsafe now?: No Are you made to feel afraid or neglected: No Advance Directives: No Advance Directives Information Provided: Yes Do you have thoughts of harming others: None Do you have a plan to hurt others: No Plan Recently lost weight without trying: Unsure How much weight loss: Unsure Eating poorly because of decreased appetite: Yes Nutrition screen score: 5 Nutrition Risks: Recent weight gain Poor oral hygiene: No service: No Current occupational status: retired Cognitive needs: Yes Hearing needs: Yes Vision needs: Yes Meds Allergies Allergy/AdvReac Type Severity Reaction Status Date / Time No Known Allergies Allergy Verified 10/13/22 17:04 [No Known Allergies*] Active Medications: Current Medications Acetaminophen (Acetaminophen 325 Mg Tablet) 650 mg PO Q6H PRN PRN Reason: Pain, Mild (Pain Scale 1-3) Albuterol Sulfate (Albuterol Sulfate 90 Mcg 8 Gm Inhaler) 2 puff INHALE Q4H PRN PRN Reason: Shortness Of Breath Or Wheezing Amlodipine Besylate (Amlodipine Besylate 5 Mg Tablet) 5 mg PO DAILY COUNTS INCLUDE 234 BEDS AT THE [facility]; Protocol Last Admin: 10/14/22 09:29 Dose: 5 mg Bumetanide (Bumetanide 1 Mg/4 Ml Vial) 2 mg IVPUSH DAILY COUNTS INCLUDE 234 BEDS AT THE [facility]; Protocol Last Admin: 10/14/22 09:29 Dose: 2 mg Calcitriol (Calcitriol 0.25 Mcg Capsule) 0.5 mcg PO DAILY COUNTS INCLUDE 234 BEDS AT THE [facility] Last Admin: 10/14/22 09:30 Dose: 0.5 mcg Docusate Sodium (Docusate Sodium 100 Mg Capsule) 100 mg PO DAILY PRN PRN Reason: Constipation Doxazosin Mesylate (Doxazosin Mesylate 2 Mg Tablet) 4 mg PO BEDTIME COUNTS INCLUDE 234 BEDS AT THE [facility] Ferrous Sulfate (Ferrous Sulfate 324 Mg Tablet.Dr) 324 mg PO DAILY COUNTS INCLUDE 234 BEDS AT THE [facility] Last Admin: 10/14/22 09:29 Dose: 324 mg Glucose (Glucose Gel 15 Gm Gel..Gram.) 15 gm PO Q15M PRN; Protocol PRN Reason: per Hypoglycemia Standing Ord. Heparin Sodium (Porcine) (Heparin Sodium,Porcine 5,000 Unit/Ml Vial) 5,000 unit SUBCUT Q8H COUNTS INCLUDE 234 BEDS AT THE [facility] Last Admin: 10/14/22 06:36 Dose: 5,000 unit Dextrose (D10) 250 mls @ 750 mls/hr IV Q15M PRN; Protocol PRN Reason: per Hypoglycemia Standing Ord. Insulin Human Lispro (Insulin Lispro 100 Unit/Ml 3 Ml Vial) 0 unit SUBCUT QIDACHS COUNTS INCLUDE 234 BEDS AT THE [facility]; Protocol Last Admin: 10/14/22 09:17 Dose: Not Given Isosorbide Mononitrate (Isosorbide Mononitrate 30 Mg Tab.Er.24h) 30 mg PO DAILY COUNTS INCLUDE 234 BEDS AT THE [facility]; Protocol Last Admin: 10/14/22 09:29 Dose: 30 mg Metoprolol Tartrate (Metoprolol Tartrate 12.5 Mg Halftab) 12.5 mg PO BID COUNTS INCLUDE 234 BEDS AT THE [facility]; Protocol Last Admin: 10/14/22 09:28 Dose: 12.5 mg Non-Formulary Medication (Umeclidinium-Vilanterol [Anoro Ellipta]) 1 each INHALE DAILY COUNTS INCLUDE 234 BEDS AT THE [facility] Ondansetron HCl (Ondansetron Hcl 4 Mg/2 Ml Vial) 4 mg IVPUSH Q8H PRN PRN Reason: Nausea and Vomiting Pharmacy Consult (Consult Rx Perform Med Rec) 1 each MISCELLANE ONCE PRN PRN Reason: Consult order Polyethylene Glycol (Polyethylene Glycol 3350 17 Gm Powd.Pack) 17 gm PO DAILY PRN PRN Reason: Constipation Pravastatin Sodium (Pravastatin Sodium 20 Mg Tablet) 20 mg PO BEDTIME COUNTS INCLUDE 234 BEDS AT THE [facility] Last Admin: 10/13/22 23:57 Dose: 20 mg Sodium Bicarbonate (Sodium Bicarbonate 650 Mg Tablet) 650 mg PO QID PRN PRN Reason: Gastric Reflux Sodium Chloride (0.9 % Sodium Chloride Flush 3 Ml Syringe) 3 ml IVFLUSH QSHIFT COUNTS INCLUDE 234 BEDS AT THE [facility] Last Admin: 10/14/22 09:29 Dose: 3 ml Home Medications Medication Instructions Recorded Confirmed Last Taken Type calcitriol 0.5 mcg capsule 0.5 mcg PO DAILY 04/03/20 10/13/22 10/13/22 History albuterol sulfate 90 mcg/actuation 2 puff inhalation Q4H PRN 07/05/20 10/13/22 10/13/22 History aerosol inhaler (ProAir HFA) Shortness Of Breath Or Wheezing sodium bicarbonate 650 mg tablet 650 mg PO QID PRN Gastric Reflux 09/22/22 10/13/22 10/13/22 History polyethylene glycol 3350 17 gram 17 g PO DAILY PRN Constipation 09/24/22 10/13/22 10/13/22 History oral powder packet (Miralax) terazosin 5 mg capsule 5 mg PO BEDTIME 10/13/22 10/13/22 10/13/22 History Physical Exam Vital Signs: Last Vital Signs Temp 97.3 F 10/14/22 07:06 Pulse 89 10/14/22 07:06 Resp 16 10/14/22 07:06 BP 103/62 10/14/22 07:06 Pulse Ox 96 10/14/22 07:06 O2 Del Method Room Air 10/14/22 07:06 BMI result Body Mass Index 40.8 Constitutional:?Alert, in no acute respiratory distress. Mental Status:?Oriented to person, place and time. Eyes:?Pupils are equal, round, and reactive to light. Ear, Nose, and Throat:?Oropharynx clear, mucous membranes moist. Ears and nose without deformities. Trachea midline. Respiratory:?Clear to auscultation bilaterally. No wheezing, rales, or rhonchi. Diminished breath sounds Cardiovascular:?S1, S2 regular. No murmurs, rubs, or gallops. Gastrointestinal:?Abdomen soft, non-tender, obese, distended. Normal bowel sounds. Neurologic:?Cranial nerves II-XII are grossly intact bilaterally. No focal neurological deficits. Moves all extremities spontaneously. Extremities:?Bilateral 2+ pitting edema. 3 cm skin tear on lateral aspect of right ankle, non-draining, non erythematous, and superficial. Bilateral chronic venous stasis dermatitis.? See picture below. Psychiatric:?Normal mood and affect. Results Lab Results 10/13/22 17:57 10/14/22 07:21 Lab results: Chemistry 10/13/22 10/14/22 17:57 07:21 Sodium 144 144 Potassium 4.2 4.3 Carbon Dioxide 22 19 L BUN 98 H 97 H Creatinine 4.06 H* 3.89 H Calcium 8.4 8.4 Phosphorus 5.9 H 5.6 H Hematology 10/13/22 17:57 WBC 3.5 L Hgb 7.5 L Plt Count 90 L Urinalysis 10/14/22 00:58 Urine Color Yellow Urine Appearance Clear Urine pH 5.0 Ur Specific [place] 1.010 Urine Protein Negative Urine Glucose (UA) Negative Urine Ketones Negative Urine Blood Negative Urine Nitrite Negative Ur Leukocyte Esterase Small (1+) H Urine RBC 0-2 Urine WBC 0-5 Ur Squamous Epith Cells 0-2 Hyaline Casts 0-2 Assessment and Plan (1) Congestive heart failure: Status: Acute (2) Shortness of breath: Status: Acute (3) CKD (chronic kidney disease) stage 4, GFR 15-29 ml/min: Status: Acute Plan 67-year-old man with advanced renal failure approaching ESRD admitted with fluid overload. Severe anemia. Hyperchloremic metabolic acidosis. Congestive heart failure. Recommendations For now start him on IV diuretics to keep him on a negative fluid balance. We will suggest starting Lasix drip at 10 mg an hour. if he fails to respond to IV diuretics he may require hemodialysis. I have discussed this with him and he is agreeable. Discussed with team. Time Spent With Patient Time: Total time managing care of this patient today ____ minutes. Procedures Date of Service Date of Service: 10/14/22
[2022-10-14 11:10] LABS: Glucose, Whole Blood 103 mg/dL (60-115)
--- NOTE | 2022-10-14 12:37 | P.CONCA_ITS ---
History of Present Illness History of Present Illness Date of Service: 10/14/22 Requesting physician: Andrae Rockwell Consult reason: congestive heart failure Chief complaint: Acute chf exacerbation Narrative: I was consulted to see Kael in cardiology consultation today for decompensated congestive heart failure. He has a very complicated past medical history including recent past medical history and recent hospitalization. Patient with prior history of heart failure preserved ejection fraction with last echocardiogram done September 25 showing low normal LVEF of 50-55% with mild LVH with grade 2 diastolic dysfunction with mild aortic stenosis and mild mitral regurgitation. He also has significant pulmonary hypertension with signifi cantly elevated right atrial pressure by that echocardiogram. Was admitted last time with noncardiac issues and subsequently required pacemaker due to persistent significant bradycardia. He has history of paroxysmal atrial fibrillation. He came to the office for follow-up for wound check yesterday after recent hospitalization pacemaker placement he was noted to be significantly short of breath and was referred to the emergency room. In the emergency room radiographically was noted to be in interstitial pulmonary edema with significant elevated BNP was admitted. He remains persistently and severely anemic. Since yesterday he said he has only gone to urination once. He has advanced chronic kidney disease. Creatinine is in the 4. Patient says he is feeling somewhat better than yesterday but still short of breath. Still has leg edema. Review of Systems Constitutional: Constitutional: Reports lethargy and Reports weakness Cardiovascular: Cardiovascular: Reports Abdominal Distension, Denies chest pain, Reports leg edema, Denies lightheadedness, Denies Loss of Consciousness, Denies palpitations, Reports dyspnea on exertion and Reports orthopnea Respiratory: Respiratory: Reports no additional respiratory complaints and Reports dyspnea on exertion Gastrointestinal: Gastrointestinal: Reports no additional gastrointestinal complaints Integumentary/Breasts: Skin/Breast: Reports system reviewed and no additional complaints, except as docu Neurologic: Reports system reviewed and no additional complaints, except as documented and Reports weakness Psychiatric: Psychiatric: Reports no additional psychiatric complaints Endocrine: Endocrine: Denies palpitations PMFSH Past Medical History Medical History Acute kidney injury superimposed on chronic kidney disease Afib Anasarca Anemia Anemia BPH (benign prostatic hyperplasia) Bradycardia Chronic kidney disease Cirrhosis CKD (chronic kidney disease) stage 4, GFR 15-29 ml/min COPD (chronic obstructive pulmonary disease) Depression, major Diabetic retinopathy Diastolic heart failure Edema Essential thrombocytopenia Fistula Gout High cholesterol HTN (hypertension) Hypercholesterolemia Incomplete emptying of bladder due to benign prostatic hyperplasia Lumbar degenerative disc disease Lymphedema Obesity (BMI 30-39.9) Obstructive sleep apnea Osteoarthritis Pacemaker Pancytopenia Paroxysmal A-fib Peripheral neuropathy Peripheral vascular disease Pulmonary hypertension Pulmonary hypertension Scrotal edema SLE (systemic lupus erythematosus related syndrome) Type 2 diabetes mellitus with hyperglycemia Venous stasis dermatitis Family History Family History Father Prostate cancer CVD (cardiovascular disease) Mother Hemochromatosis Brother Motor vehicle accident Sister CAD (coronary artery disease) Maternal Grandfather Myocardial infarction Surgical History Surgical History H/O prior ablation treatment History of bilateral cataract extraction History of bowel diversion surgery History of carpal tunnel release History of gastric surgery History of tonsillectomy Social History Social History Household Members: Spouse Housing: House Do you presently have visiting nurse or other home services: Yes Alcohol intake: never Patient Tobacco Use Status: Former Tobacco user Tobacco use type: Cigarette Smoked in Last 30 Days: No e-Cigarette/Vaping Use: Former Use Patient Interested in Nicotine Replacement: No Patient Given Instructions on How to Stop Smoking: No Second Hand Smoke Exposure: Yes Use of substances other than those prescribed or required for medical reasons: No Substance Use Type: Marijuana Currently Displaying Signs/Symptoms of Drug Intoxication Withdrawal: No Any prior treatment program specific to substance use: No Have you been hit, kicked, punched, or otherwise hurt by someone within the past year? If so, by whom?: No Do you feel safe in your current relationship?: Yes Is there a partner from a previous relationship who is making you feel unsafe now?: No Are you made to feel afraid or neglected: No Advance Directives: No Advance Directives Information Provided: Yes Do you have thoughts of harming others: None Do you have a plan to hurt others: No Plan Recently lost weight without trying: Unsure How much weight loss: Unsure Eating poorly because of decreased appetite: Yes Nutrition screen score: 5 Nutrition Risks: Recent weight gain Poor oral hygiene: No service: No Current occupational status: retired Cognitive needs: Yes Hearing needs: Yes Vision needs: Yes Meds Allergies Allergy/AdvReac Type Severity Reaction Status Date / Time No Known Allergies Allergy Verified 10/13/22 17:04 [No Known Allergies*] Active Medications: Current Medications Acetaminophen (Acetaminophen 325 Mg Tablet) 650 mg PO Q6H PRN PRN Reason: Pain, Mild (Pain Scale 1-3) Albuterol Sulfate (Albuterol Sulfate 90 Mcg 8 Gm Inhaler) 2 puff INHALE Q4H PRN PRN Reason: Shortness Of Breath Or Wheezing Amlodipine Besylate (Amlodipine Besylate 5 Mg Tablet) 5 mg PO DAILY [facility]; Protocol Last Admin: 10/14/22 09:29 Dose: 5 mg Bumetanide (Bumetanide 1 Mg/4 Ml Vial) 2 mg IVPUSH DAILY [facility]; Protocol Last Admin: 10/14/22 09:29 Dose: 2 mg Calcitriol (Calcitriol 0.25 Mcg Capsule) 0.5 mcg PO DAILY [facility] Last Admin: 10/14/22 09:30 Dose: 0.5 mcg Docusate Sodium (Docusate Sodium 100 Mg Capsule) 100 mg PO DAILY PRN PRN Reason: Constipation Doxazosin Mesylate (Doxazosin Mesylate 2 Mg Tablet) 4 mg PO BEDTIME [facility] Ferrous Sulfate (Ferrous Sulfate 324 Mg Tablet.Dr) 324 mg PO DAILY [facility] Last Admin: 10/14/22 09:29 Dose: 324 mg Glucose (Glucose Gel 15 Gm Gel..Gram.) 15 gm PO Q15M PRN; Protocol PRN Reason: per Hypoglycemia Standing Ord. Heparin Sodium (Porcine) (Heparin Sodium,Porcine 5,000 Unit/Ml Vial) 5,000 unit SUBCUT Q8H [facility] Last Admin: 10/14/22 06:36 Dose: 5,000 unit Dextrose (D10) 250 mls @ 750 mls/hr IV Q15M PRN; Protocol PRN Reason: per Hypoglycemia Standing Ord. Insulin Human Lispro (Insulin Lispro 100 Unit/Ml 3 Ml Vial) 0 unit SUBCUT QIDACHS [facility]; Protocol Last Admin: 10/14/22 12:17 Dose: Not Given Isosorbide Mononitrate (Isosorbide Mononitrate 30 Mg Tab.Er.24h) 30 mg PO DAILY [facility]; Protocol Last Admin: 10/14/22 09:29 Dose: 30 mg Metoprolol Tartrate (Metoprolol Tartrate 12.5 Mg Halftab) 12.5 mg PO BID [facility]; Protocol Last Admin: 10/14/22 09:28 Dose: 12.5 mg Non-Formulary Medication (Umeclidinium-Vilanterol [Anoro Ellipta]) 1 each INHALE DAILY [facility] Ondansetron HCl (Ondansetron Hcl 4 Mg/2 Ml Vial) 4 mg IVPUSH Q8H PRN PRN Reason: Nausea and Vomiting Pharmacy Consult (Consult Rx Perform Med Rec) 1 each MISCELLANE ONCE PRN PRN Reason: Consult order Polyethylene Glycol (Polyethylene Glycol 3350 17 Gm Powd.Pack) 17 gm PO DAILY PRN PRN Reason: Constipation Pravastatin Sodium (Pravastatin Sodium 20 Mg Tablet) 20 mg PO BEDTIME [facility] Last Admin: 10/13/22 23:57 Dose: 20 mg Sodium Bicarbonate (Sodium Bicarbonate 650 Mg Tablet) 650 mg PO QID PRN PRN Reason: Gastric Reflux Sodium Chloride (0.9 % Sodium Chloride Flush 3 Ml Syringe) 3 ml IVFLUSH QSHIFT [facility] Last Admin: 10/14/22 09:29 Dose: 3 ml Home Medications Medication Instructions Recorded Confirmed Last Taken Type calcitriol 0.5 mcg capsule 0.5 mcg PO DAILY 04/03/20 10/13/22 10/13/22 History albuterol sulfate 90 mcg/actuation 2 puff inhalation Q4H PRN 07/05/20 10/13/22 10/13/22 History aerosol inhaler (ProAir HFA) Shortness Of Breath Or Wheezing sodium bicarbonate 650 mg tablet 650 mg PO QID PRN Gastric Reflux 09/22/22 10/13/22 10/13/22 History polyethylene glycol 3350 17 gram 17 g PO DAILY PRN Constipation 09/24/22 10/13/22 10/13/22 History oral powder packet (Miralax) terazosin 5 mg capsule 5 mg PO BEDTIME 10/13/22 10/13/22 10/13/22 History Physical Exam Vital Signs: Vital Signs: Last Vital Signs Temp 97.3 F 10/14/22 11:49 Pulse 91 10/14/22 11:49 Resp 16 10/14/22 11:49 BP 94/59 L 10/14/22 11:49 Pulse Ox 94 10/14/22 11:49 O2 Del Method Room Air 10/14/22 11:49 BMI result Body Mass Index 40.8 Const: General: cooperative, alert, awake and in distress mild and respiratory Nutritional Appearance: obese Orientation/consciousness: patient oriented x3 HEENT: Head: Yes normocephalic and Yes atraumatic Neck: Neck: Yes trachea midline, Yes supple and Yes JVD Resp: Effort & Inspection: normal respiratory effort Auscultation: no rales, no wheezes and diminished lung sounds Cardio: Jugular venous distension: JVD Rate: regular rate Rhythm: regular rhythm Heart sounds: S1 normal heart sound present, S2 normal heart sound present, no click, no gallops, no murmurs and no rubs GI: Inspection: Yes distended Auscultation: normal bowel sounds Skin: General skin exam: no rashes or lesions noted Neuro: General: patient oriented x3 Extrem: General: No clubbing, No cyanosis and Yes edema Objective Labs and Meds 10/13/22 17:57 10/14/22 07:21 Lab results: Laboratory Results - last 24 hr 10/13/22 10/13/22 10/13/22 17:57 17:57 17:57 WBC 3.5 L RBC 2.31 L Hgb 7.5 L Hct 23.4 L MCV 101.3 H MCH 32.5 MCHC 32.1 RDW 15.4 Plt Count 90 L MPV 10.4 Immature Gran % (Auto) 0.9 H Neut % (Auto) 77.2 H Lymph % (Auto) 9.2 L Cocke % (Auto) 10.9 Eos % (Auto) 0.9 Baso % (Auto) 0.9 Lymph # (Auto) 0.3 L [place] # (Auto) 0.4 Eos # (Auto) 0.0 Baso # (Auto) 0.0 Abs Immat Gran (auto) 0.03 Absolute Neuts (auto) 2.7 Absolute Nucleated RBC 0.000 Nucleated RBC % (auto) 0.0 PT 16.2 H INR 1.4 H APTT 35.3 Sodium 144 Potassium 4.2 Chloride 112 H Carbon Dioxide 22 Anion Gap 14 BUN 98 H Creatinine 4.06 H* Estim Creat Clear Calc 23.8 Estimated GFR 15 POC Glucose Random Glucose 90 Calcium 8.4 Phosphorus 5.9 H Magnesium 1.7 Iron TIBC % Saturation Unsat Iron Binding Ferritin Total Bilirubin 0.7 AST 18 ALT 13 Alkaline Phosphatase 130 H Troponin I High Sens B-Natriuretic Peptide Total Protein 5.6 L Albumin 3.1 L Lipase 32 Vitamin B12 Folate Urine Color Urine Appearance Urine pH Ur Specific [place] Urine Protein Urine Glucose (UA) Urine Ketones Urine Blood Urine Nitrite Ur Leukocyte Esterase Urine RBC Urine WBC Ur Squamous Epith Cells Urine Bacteria Hyaline Casts Influenza Type A (PCR) Influenza Type B (PCR) RSV RNA Qual (PCR) SARS-CoV-2 RNA (RT-PCR) 10/13/22 10/13/22 10/13/22 17:57 17:57 17:57 WBC RBC Hgb Hct MCV MCH MCHC RDW Plt Count MPV Immature Gran % (Auto) Neut % (Auto) Lymph % (Auto) Cocke % (Auto) Eos % (Auto) Baso % (Auto) Lymph # (Auto) Cocke # (Auto) Eos # (Auto) Baso # (Auto) Abs Immat Gran (auto) Absolute Neuts (auto) Absolute Nucleated RBC Nucleated RBC % (auto) PT INR APTT Sodium Potassium Chloride Carbon Dioxide Anion Gap BUN Creatinine Estim Creat Clear Calc Estimated GFR POC Glucose Random Glucose Calcium Phosphorus Magnesium Iron TIBC % Saturation Unsat Iron Binding Ferritin Total Bilirubin AST ALT Alkaline Phosphatase Troponin I High Sens 27.7 B-Natriuretic Peptide 962 H Total Protein Albumin Lipase Vitamin B12 Folate Urine Color Urine Appearance Urine pH Ur Specific [place] Urine Protein Urine Glucose (UA) Urine Ketones Urine Blood Urine Nitrite Ur Leukocyte Esterase Urine RBC Urine WBC Ur Squamous Epith Cells Urine Bacteria Hyaline Casts Influenza Type A (PCR) NEGATIVE Influenza Type B (PCR) NEGATIVE RSV RNA Qual (PCR) NEGATIVE SARS-CoV-2 RNA (RT-PCR) NEGATIVE 10/14/22 10/14/22 10/14/22 00:58 02:12 07:05 WBC RBC Hgb Hct MCV MCH MCHC RDW Plt Count MPV Immature Gran % (Auto) Neut % (Auto) Lymph % (Auto) [place] % (Auto) Eos % (Auto) Baso % (Auto) Lymph # (Auto) [place] # (Auto) Eos # (Auto) Baso # (Auto) Abs Immat Gran (auto) Absolute Neuts (auto) Absolute Nucleated RBC Nucleated RBC % (auto) PT INR APTT Sodium Potassium Chloride Carbon Dioxide Anion Gap BUN Creatinine Estim Creat Clear Calc Estimated GFR POC Glucose 78 79 Random Glucose Calcium Phosphorus Magnesium Iron TIBC % Saturation Unsat Iron Binding Ferritin Total Bilirubin AST ALT Alkaline Phosphatase Troponin I High Sens B-Natriuretic Peptide Total Protein Albumin Lipase Vitamin B12 Folate Urine Color Yellow Urine Appearance Clear Urine pH 5.0 Ur Specific [place] 1.010 Urine Protein Negative Urine Glucose (UA) Negative Urine Ketones Negative Urine Blood Negative Urine Nitrite Negative Ur Leukocyte Esterase Small (1+) H Urine RBC 0-2 Urine WBC 0-5 Ur Squamous Epith Cells 0-2 Urine Bacteria None Seen Hyaline Casts 0-2 Influenza Type A (PCR) Influenza Type B (PCR) RSV RNA Qual (PCR) SARS-CoV-2 RNA (RT-PCR) 10/14/22 10/14/22 07:21 11:06 WBC RBC Hgb Hct MCV MCH MCHC RDW Plt Count MPV Immature Gran % (Auto) Neut % (Auto) Lymph % (Auto) [place] % (Auto) Eos % (Auto) Baso % (Auto) Lymph # (Auto) [place] # (Auto) Eos # (Auto) Baso # (Auto) Abs Immat Gran (auto) Absolute Neuts (auto) Absolute Nucleated RBC Nucleated RBC % (auto) PT INR APTT Sodium 144 Potassium 4.3 Chloride 111 H Carbon Dioxide 19 L Anion Gap 18 BUN 97 H Creatinine 3.89 H Estim Creat Clear Calc 24.9 Estimated GFR 15 POC Glucose 103 Random Glucose 70 Calcium 8.4 Phosphorus 5.6 H Magnesium 1.7 Iron 46 TIBC 194 L % Saturation 24 Unsat Iron Binding 148 Ferritin 449 H Total Bilirubin AST ALT Alkaline Phosphatase Troponin I High Sens B-Natriuretic Peptide Total Protein Albumin Lipase Vitamin B12 875 Folate 4.2 Urine Color Urine Appearance Urine pH Ur Specific [place] Urine Protein Urine Glucose (UA) Urine Ketones Urine Blood Urine Nitrite Ur Leukocyte Esterase Urine RBC Urine WBC Ur Squamous Epith Cells Urine Bacteria Hyaline Casts Influenza Type A (PCR) Influenza Type B (PCR) RSV RNA Qual (PCR) SARS-CoV-2 RNA (RT-PCR) EKG shows ventricular paced rhythm, atrial rhythm is not heparin. Pacemaker evaluated bedside shows fast heart rate with adequate ventricular pacing. Imaging Radiologist's impression: Impressions Chest X-Ray 10/13/22 17:35 IMPRESSION: Constellation of findings are suspicious for worsening pulmonary edema or the presence of an atypical/viral infection. Continued follow-up recommended. Assessment and Plan (1) Decompensated heart failure: Status: Acute Decompensated congestive heart failure in this elderly gentleman with significant fluid overload on clinical exam, with multiple comorbidities including poor functional status with multiple recent hospitalization, chronic kidney disease and significant anemia. Would start on IV Lasix drip. Strict intake and output chart needs to be pursued. Continue monitor renal function as well as BNP. Requires significant amount of diuresis. Consider transfusion 1-2 units of packed RBC to maintain hematocrit over 30 due to his poor cardiac status overall. Overall prognosis is guarded. Pacemaker seems to be functioning okay patient does not seem to be in atrial fibrillation the echo co ntribute to his heart failure syndrome. Will continue to follow with you. Time Spent With Patient Time: Total time managing care of this patient today ____ minutes. Procedures Date of Service Date of Service: 10/14/22
[2022-10-14 15:39] LABS: Glucose, Whole Blood 111 mg/dL (60-115)
[2022-10-14] MEDS: Furosemide 200 MG in 0.9 % Sodium Chloride 80 ML IVCONT (15:55)
[2022-10-14] MEDS: Albumin Human 25 % 100 ML IV ×2 (16:00→17:06)
--- NOTE | 2022-10-14 17:35 | HO.PM.IMPN ---
Subjective Subjective Date of Service: 10/14/22 Interval History: Acute HFpEF exacerbation,ckd 4 Review of Systems sob seems improvin has b/l leg swellin/scrotal swellin Producing urine but able to put in the urinal because of significant scrotal /denies swelling Nor edema or discharge Physical Exam Vital Signs: Vital Signs: Last Vital Signs Temp 97.0 F 10/14/22 15:04 Pulse 67 10/14/22 15:04 Resp 17 10/14/22 15:04 BP 94/66 10/14/22 15:04 Pulse Ox 95 10/14/22 15:04 O2 Del Method Room Air 10/14/22 15:04 BMI result Body Mass Index 40.8 Appearance: Alert.? Oriented X3.? sob improving? cvs: rrr, [id number] . res: clear to auscultation ,no rhonchii or wheezing abd: no rebound or guarding ,nt, bs present. abd : soft ,nd , nt ,bs present : scrotal/penile swellin ext pulses present , no cyanosis . neuro: axo3 , nonfocal. Objective Data Active Medications Acetaminophen (Acetaminophen 325 Mg Tablet) 650 mg PO Q6H PRN PRN Reason: Pain, Mild (Pain Scale 1-3) Acetaminophen (Acetaminophen 325 Mg Tablet) 650 mg PO ONCE ONE Stop: 10/14/22 17:26 Albuterol Sulfate (Albuterol Sulfate 90 Mcg 8 Gm Inhaler) 2 puff INHALE Q4H PRN PRN Reason: Shortness Of Breath Or Wheezing Amlodipine Besylate (Amlodipine Besylate 5 Mg Tablet) 5 mg PO DAILY [facility]; Protocol Last Admin: 10/14/22 09:29 Dose: 5 mg Documented By: HALIE Calcitriol (Calcitriol 0.25 Mcg Capsule) 0.5 mcg PO DAILY [facility] Last Admin: 10/14/22 09:30 Dose: 0.5 mcg Documented By: HALIE Docusate Sodium (Docusate Sodium 100 Mg Capsule) 100 mg PO DAILY PRN PRN Reason: Constipation Doxazosin Mesylate (Doxazosin Mesylate 2 Mg Tablet) 4 mg PO BEDTIME [facility] Ferrous Sulfate (Ferrous Sulfate 324 Mg Tablet.Dr) 324 mg PO DAILY [facility] Last Admin: 10/14/22 09:29 Dose: 324 mg Documented By: HALIE Glucose (Glucose Gel 15 Gm Gel..Gram.) 15 gm PO Q15M PRN; Protocol PRN Reason: per Hypoglycemia Standing Ord. Heparin Sodium (Porcine) (Heparin Sodium,Porcine 5,000 Unit/Ml Vial) 5,000 unit SUBCUT Q8H [facility] Last Admin: 10/14/22 16:10 Dose: 5,000 unit Documented By: HALIE Dextrose (D10) 250 mls @ 750 mls/hr IV Q15M PRN; Protocol PRN Reason: per Hypoglycemia Standing Ord. Furosemide 200 mg/ Sodium (Chloride) 100 mls @ 2.5 mls/hr IVCONT .Q24H [facility] Last Admin: 10/14/22 15:55 Dose: 5 mg/hr, 2.5 mls/hr Documented By: HALIE Insulin Human Lispro (Insulin Lispro 100 Unit/Ml 3 Ml Vial) 0 unit SUBCUT QIDACHS [facility]; Protocol Last Admin: 10/14/22 12:17 Dose: Not Given Documented By: HALIE Non-Admin Reason: No Insulin Coverage Isosorbide Mononitrate (Isosorbide Mononitrate 30 Mg Tab.Er.24h) 30 mg PO DAILY [facility]; Protocol Last Admin: 10/14/22 09:29 Dose: 30 mg Documented By: HALIE Metoprolol Tartrate (Metoprolol Tartrate 12.5 Mg Halftab) 12.5 mg PO BID [facility]; Protocol Last Admin: 10/14/22 09:28 Dose: 12.5 mg Documented By: HALIE Non-Formulary Medication (Umeclidinium-Vilanterol [Anoro Ellipta]) 1 each INHALE DAILY [facility] Ondansetron HCl (Ondansetron Hcl 4 Mg/2 Ml Vial) 4 mg IVPUSH Q8H PRN PRN Reason: Nausea and Vomiting Pharmacy Consult (Consult Rx Perform Med Rec) 1 each MISCELLANE ONCE PRN PRN Reason: Consult order Polyethylene Glycol (Polyethylene Glycol 3350 17 Gm Powd.Pack) 17 gm PO DAILY PRN PRN Reason: Constipation Pravastatin Sodium (Pravastatin Sodium 20 Mg Tablet) 20 mg PO BEDTIME [facility] Last Admin: 10/13/22 23:57 Dose: 20 mg Documented By: LAM Sodium Bicarbonate (Sodium Bicarbonate 650 Mg Tablet) 650 mg PO QID PRN PRN Reason: Gastric Reflux Sodium Chloride (0.9 % Sodium Chloride Flush 3 Ml Syringe) 3 ml IVFLUSH QSHIFT [facility] Last Admin: 10/14/22 09:29 Dose: 3 ml Documented By: HALIE Labs 10/13/22 17:57 10/14/22 07:21 Labs: Laboratory Results - last 24 hr 10/13/22 10/13/22 10/13/22 17:57 17:57 17:57 MCV 101.3 H MCH 32.5 MCHC 32.1 RDW 15.4 Plt Count 90 L MPV 10.4 Immature Gran % (Auto) 0.9 H Neut % (Auto) 77.2 H Lymph % (Auto) 9.2 L [place] % (Auto) 10.9 Eos % (Auto) 0.9 Baso % (Auto) 0.9 Lymph # (Auto) 0.3 L [place] # (Auto) 0.4 Eos # (Auto) 0.0 Baso # (Auto) 0.0 Abs Immat Gran (auto) 0.03 Absolute Neuts (auto) 2.7 Absolute Nucleated RBC 0.000 Nucleated RBC % (auto) 0.0 PT 16.2 H INR 1.4 H APTT 35.3 Anion Gap 14 Estim Creat Clear Calc 23.8 Estimated GFR 15 POC Glucose Random Glucose 90 Calcium 8.4 Phosphorus 5.9 H Magnesium 1.7 Iron TIBC % Saturation Unsat Iron Binding Ferritin Total Bilirubin 0.7 AST 18 ALT 13 Alkaline Phosphatase 130 H Troponin I High Sens B-Natriuretic Peptide Total Protein 5.6 L Albumin 3.1 L Lipase 32 Vitamin B12 Folate Urine Color Urine Appearance Urine pH Ur Specific [place] Urine Protein Urine Glucose (UA) Urine Ketones Urine Blood Urine Nitrite Ur Leukocyte Esterase Urine RBC Urine WBC Ur Squamous Epith Cells Urine Bacteria Hyaline Casts Influenza Type A (PCR) Influenza Type B (PCR) RSV RNA Qual (PCR) SARS-CoV-2 RNA (RT-PCR) Blood Type Antibody Screen Crossmatch ([facility]) 10/13/22 10/13/22 10/13/22 17:57 17:57 17:57 MCV MCH MCHC RDW Plt Count MPV Immature Gran % (Auto) Neut % (Auto) Lymph % (Auto) [place] % (Auto) Eos % (Auto) Baso % (Auto) Lymph # (Auto) [place] # (Auto) Eos # (Auto) Baso # (Auto) Abs Immat Gran (auto) Absolute Neuts (auto) Absolute Nucleated RBC Nucleated RBC % (auto) PT INR APTT Anion Gap Estim Creat Clear Calc Estimated GFR POC Glucose Random Glucose Calcium Phosphorus Magnesium Iron TIBC % Saturation Unsat Iron Binding Ferritin Total Bilirubin AST ALT Alkaline Phosphatase Troponin I High Sens 27.7 B-Natriuretic Peptide 962 H Total Protein Albumin Lipase Vitamin B12 Folate Urine Color Urine Appearance Urine pH Ur Specific [place] Urine Protein Urine Glucose (UA) Urine Ketones Urine Blood Urine Nitrite Ur Leukocyte Esterase Urine RBC Urine WBC Ur Squamous Epith Cells Urine Bacteria Hyaline Casts Influenza Type A (PCR) NEGATIVE Influenza Type B (PCR) NEGATIVE RSV RNA Qual (PCR) NEGATIVE SARS-CoV-2 RNA (RT-PCR) NEGATIVE Blood Type Antibody Screen Crossmatch ([facility]) 10/14/22 10/14/22 10/14/22 00:58 02:12 07:05 MCV MCH MCHC RDW Plt Count MPV Immature Gran % (Auto) Neut % (Auto) Lymph % (Auto) [place] % (Auto) Eos % (Auto) Baso % (Auto) Lymph # (Auto) [place] # (Auto) Eos # (Auto) Baso # (Auto) Abs Immat Gran (auto) Absolute Neuts (auto) Absolute Nucleated RBC Nucleated RBC % (auto) PT INR APTT Anion Gap Estim Creat Clear Calc Estimated GFR POC Glucose 78 79 Random Glucose Calcium Phosphorus Magnesium Iron TIBC % Saturation Unsat Iron Binding Ferritin Total Bilirubin AST ALT Alkaline Phosphatase Troponin I High Sens B-Natriuretic Peptide Total Protein Albumin Lipase Vitamin B12 Folate Urine Color Yellow Urine Appearance Clear Urine pH 5.0 Ur Specific [place] 1.010 Urine Protein Negative Urine Glucose (UA) Negative Urine Ketones Negative Urine Blood Negative Urine Nitrite Negative Ur Leukocyte Esterase Small (1+) H Urine RBC 0-2 Urine WBC 0-5 Ur Squamous Epith Cells 0-2 Urine Bacteria None Seen Hyaline Casts 0-2 Influenza Type A (PCR) Influenza Type B (PCR) RSV RNA Qual (PCR) SARS-CoV-2 RNA (RT-PCR) Blood Type Antibody Screen Crossmatch ([facility]) 10/14/22 10/14/22 10/14/22 07:21 11:06 13:23 MCV MCH MCHC RDW Plt Count MPV Immature Gran % (Auto) Neut % (Auto) Lymph % (Auto) [place] % (Auto) Eos % (Auto) Baso % (Auto) Lymph # (Auto) [place] # (Auto) Eos # (Auto) Baso # (Auto) Abs Immat Gran (auto) Absolute Neuts (auto) Absolute Nucleated RBC Nucleated RBC % (auto) PT INR APTT Anion Gap 18 Estim Creat Clear Calc 24.9 Estimated GFR 15 POC Glucose 103 Random Glucose 70 Calcium 8.4 Phosphorus 5.6 H Magnesium 1.7 Iron 46 TIBC 194 L % Saturation 24 Unsat Iron Binding 148 Ferritin 449 H Total Bilirubin AST ALT Alkaline Phosphatase Troponin I High Sens B-Natriuretic Peptide Total Protein Albumin Lipase Vitamin B12 875 Folate 4.2 Urine Color Urine Appearance Urine pH Ur Specific [place] Urine Protein Urine Glucose (UA) Urine Ketones Urine Blood Urine Nitrite Ur Leukocyte Esterase Urine RBC Urine WBC Ur Squamous Epith Cells Urine Bacteria Hyaline Casts Influenza Type A (PCR) Influenza Type B (PCR) RSV RNA Qual (PCR) SARS-CoV-2 RNA (RT-PCR) Blood Type A Negative Antibody Screen NEGATIVE Crossmatch ([facility]) See Detail 10/14/22 15:06 MCV MCH MCHC RDW Plt Count MPV Immature Gran % (Auto) Neut % (Auto) Lymph % (Auto) [place] % (Auto) Eos % (Auto) Baso % (Auto) Lymph # (Auto) [place] # (Auto) Eos # (Auto) Baso # (Auto) Abs Immat Gran (auto) Absolute Neuts (auto) Absolute Nucleated RBC Nucleated RBC % (auto) PT INR APTT Anion Gap Estim Creat Clear Calc Estimated GFR POC Glucose 111 Random Glucose Calcium Phosphorus Magnesium Iron TIBC % Saturation Unsat Iron Binding Ferritin Total Bilirubin AST ALT Alkaline Phosphatase Troponin I High Sens B-Natriuretic Peptide Total Protein Albumin Lipase Vitamin B12 Folate Urine Color Urine Appearance Urine pH Ur Specific [place] Urine Protein Urine Glucose (UA) Urine Ketones Urine Blood Urine Nitrite Ur Leukocyte Esterase Urine RBC Urine WBC Ur Squamous Epith Cells Urine Bacteria Hyaline Casts Influenza Type A (PCR) Influenza Type B (PCR) RSV RNA Qual (PCR) SARS-CoV-2 RNA (RT-PCR) Blood Type Antibody Screen Crossmatch ([facility]) Assessment and Plan (1) Decompensated heart failure: Status: Acute (2) CKD (chronic kidney disease) stage 4, GFR 15-29 ml/min: Status: Acute Plan 67-year-old male with a PMH significant for?CKD stage 4 not on dialysis, [id number] diabetes type 2, COPD, HTN, HLD, ZEYAD, and AFib on Eliquis who presents to the ED with?worsening SOB with exertion for the past week. Pt will be admitted to the hospital treatment and further evaluation of acute CHF exacerbation. Acute HFpEF exacerbation,boderline bP Patient with SOB, 12 lb weight gain in past week, increased lower leg and abdominal edema, elevated BNP, CXR with evidence of pulmonary edema Follow lytes, mg, I/O Daily weights, low-salt diet Last echocardiogram on 09/25/2022 found low normal LV systolic function with mild LVH and at least grade 2 diastolic dysfunction producing urine but difficult to collect in the urinal and also difficult to place urine a get tighter because of significant penile swelling Cardiology consult-added lasix drip , moniter bnp, i/o strict, hold bp meds:amlodipine /bb/imdure , if needed will add midodrine. added albumin . Monitor on telemetry Hyperphosphatemia Patient's phosphorus 5.6,improving, likely secondary to patient's CKD Low phosphorus diet Follow phosphorus levels CKD stage 4 Patient creatinine 4.06, estimated GFR 15 Stable, at baseline Nephrology consult Paroxysmal atrial fibrillation Continue metoprolol Eliquis being held by Cardiology d/t bruising from pacemaker implantation Non insulin-dependent diabetes type 2, diet-controlled Patient not on home meds Cover with sliding scale insulin HTN Continue amlodipine COPD Not in acute exacerbation Continue home inhalers DNI inpatient need:acute HFpEF exacerbation with IV diuretics and specialist consults, electrolytic monitering Time Spent With Patient Time: Total time managing care of this patient today ____ minutes. Quality Stroke Does the patient have a stroke diagnosis?: No VTE Prior VTE?: No VTE Risk Level:: Medical - moderate - high VTE Device Contraindication: Treatment Not Indicated VTE Drug Contraindication: N/A - Med Ordered
[2022-10-14] MEDS: Acetaminophen 325 MG TABLET 650 MG PO (18:49)
[2022-10-14 21:00] LABS: Glucose, Whole Blood 93 mg/dL (60-115)
[2022-10-14] MEDS: Pravastatin Sodium 20 MG TABLET PO (21:49)
[2022-10-14] MEDS: Doxazosin Mesylate 2 MG TABLET 4 MG PO (21:49)
[2022-10-15] VITALS (9 sets, daily range): BP systolic 119–139; BP diastolic 63–81; PULSE 79–95; RESP 15–20; TEMP 36.1–37; O2SAT 93–96
[2022-10-15 06:29] LABS: Hematocrit 24.2 % (42.0-52.0); Hemoglobin 7.9 g/dl (14.0-18.0)
[2022-10-15] MEDS: Heparin Sodium,Porcine 5,000 UNIT/ML VIAL 5000 UNIT SUBCUT (06:37)
[2022-10-15 06:38] LABS: B Type Natriuretic Peptide 1246 pg/mL (<100)
[2022-10-15 07:41] LABS: Anion Gap 18 (12-20); Blood Urea Nitrogen 98 mg/dL (9-16); Calcium 8.5 mg/dL (8.4-10.2); Carbon Dioxide 19 mmol/L (22-29); Chloride 110 mmol/L (96-108); Creatinine Clr Calc Pharmacy 23.3; Estimated Glomerular Filt Rate 14; Glucose Random 72 mg/dL (60-115); Potassium 4.2 mmol/L (3.3-5.1); Sodium 143 mmol/L (135-145)
[2022-10-15 07:58] LABS: Glucose, Whole Blood 81 mg/dL (60-115)
[2022-10-15] MEDS: Ferrous Sulfate 324 MG TABLET.DR PO (09:24)
[2022-10-15] MEDS: 0.9 % Sodium Chloride Flush 3 ML SYRINGE IVFLUSH ×2 (09:24→16:25)
[2022-10-15] MEDS: calcitrioL 0.25 MCG CAPSULE 0.5 MCG PO (09:27)
--- NOTE | 2022-10-15 10:05 | P.PNNP_ITS ---
Subjective Subjective Date of Service: 10/16/22 Interval history: Acute HFpEF exacerbation,ckd 4 Physical Exam Vital Signs: Vital Signs: Last Vital Signs Temp 98.6 F 10/15/22 07:28 Pulse 94 10/15/22 07:28 Resp 20 10/15/22 07:28 BP 125/64 10/15/22 07:28 Pulse Ox 94 10/15/22 07:28 O2 Del Method Room Air 10/15/22 07:28 BMI result Body Mass Index 40.8 Const: General: cooperative, no acute distress, alert, awake and in distress mild and respiratory Nutritional Appearance: well nourished and obese Orientation/consciousness: patient oriented x3 HEENT: Head: Yes normocephalic and Yes atraumatic Throat: Yes posterior oropharynx normal Eyes: Eyelids: Yes eyelids normal Conjunctivae: conjunctivae normal Sc lerae: sclerae normal Corneas: corneas normal Pupils: Equal, round and reactive pupils present EOM: EOMs intact bilaterally Neck: Neck: Yes full ROM, Yes trachea midline, Yes supple and Yes JVD Resp: Other: Diminished without adventitious breath sounds Effort & Inspection: normal respiratory effort, able to speak in complete sentences, no audible wheezes and not labored Auscultation: clear to auscultation bilaterally, no crackles, no rales, no rhonchi, no wheezes and diminished lung sounds Cardio: Jugular venous distension: JVD Rate: regular rate Rhythm: regular rhythm Heart sounds: S1 normal heart sound present, S2 normal heart sound present, no click, no gallops, no murmurs and no rubs GI: Inspection: Yes Abdominal wall edema and Yes distended Palpation (GI): Soft to palpation, nontender and no guarding Auscultation: normal bowel sounds and normoactive bowel sounds Skin: Other: Superficial approximately 3 cm wound to the right lower leg. No surrounding erythema or drainage from the wound General skin exam: no rashes or lesions noted and elasticity normal Neuro: General: patient oriented x3 Cranial nerves: Yes CN's II-XII intact bilaterally, Yes Equal, round and reactive pupils present and Yes Bilaterally intact EOM present Cognition (Neuro): normal cognition Extrem: Other: Moving all extremities well without any obvious deformities General: No clubbing, No cyanosis and Yes edema Objective Data Labs 10/15/22 05:37 10/15/22 05:37 Labs: Laboratory Results - last 24 hr 10/14/22 10/14/22 10/14/22 07:21 11:06 13:23 Hgb Hct Sodium Potassium Chloride Carbon Dioxide Anion Gap BUN Creatinine Estim Creat Clear Calc Estimated GFR POC Glucose 103 Random Glucose Calcium Ferritin 449 H B-Natriuretic Peptide Vitamin B12 875 Folate 4.2 Blood Type A Negative Antibody Screen NEGATIVE Crossmatch ([facility]) See Detail 10/14/22 10/14/22 10/15/22 15:06 19:16 05:37 Hgb 7.9 L Hct 24.2 L Sodium Potassium Chloride Carbon Dioxide Anion Gap BUN Creatinine Estim Creat Clear Calc Estimated GFR POC Glucose 111 93 Random Glucose Calcium Ferritin B-Natriuretic Peptide Vitamin B12 Folate Blood Type Antibody Screen Crossmatch ([facility]) 10/15/22 10/15/22 10/15/22 05:37 05:37 07:29 Hgb Hct Sodium 143 Potassium 4.2 Chloride 110 H Carbon Dioxide 19 L Anion Gap 18 BUN 98 H Creatinine 4.15 H* Estim Creat Clear Calc 23.3 Estimated GFR 14 POC Glucose 81 Random Glucose 72 Calcium 8.5 Ferritin B-Natriuretic Peptide 1246 H Vitamin B12 Folate Blood Type Antibody Screen Crossmatch ([facility]) Microbiology Microbiology Results: Microbiology 10/14/22 Unknown Urine clean catch - Urine keys top Urine Culture - Final Procedures Date of Service Date of Service: 10/15/22 Assessment & Plan Assessment and plan (1) Congestive heart failure: Status: Acute (2) Shortness of breath: Status: Acute (3) CKD (chronic kidney disease) stage 4, GFR 15-29 ml/min: Status: Acute Plan 67-year-old man with advanced renal failure approaching ESRD admitted with fluid overload. Severe anemia. Hyperchloremic metabolic acidosis. Congestive heart failure. Recommendations Keep on IV diuretics to keep him on a negative fluid balance. Lasix drip at 10 mg an hour. if he fails to respond to IV diuretics he may require hemodialysis. I have discussed this with him and he is agreeable. Tentatively schedule permcath for Thursday - SPoke to HOLD SQ Heparin on 10/16 Discussed with team. Time Spent With Patient Time: Total time managing care of this patient today ____ minutes. Progress Note: Quality Stroke Does the patient have a stroke diagnosis?: No
--- NOTE | 2022-10-15 10:18 | PM.UROCN ---
History of Present Illness Consult details Consult date: 10/15/22 Narrative: New consult to for penile and scrotal swelling, Pt in CHF.. 67-year-old male, with who was admitted 09/24/22, has a past medical history of CKD stage 4, diabetes, COPD, hypertension, hypercholesterolemia, sleep apnea, atrial fibrillation on Eliquis, Prior to [facility] admission, he had a perforated bowel which required surgical repair at [facility] and he was discharged to a snf with a catheter. On this admission he complaints of hematuria and was seen in consultation by on 09/25/22.? He has been on Abx for treatment of cystitis.? Denies any fevers or chills, dizziness, weakness, abdominal pain, nausea or vomiting.? He is unsure if he has had diarrhea, unable to report bloody or black stool.? Review of Systems Review of Systems: 10 point ROS negative other then stated in HPI PMFSH Past Medical History Medical History Acute kidney injury superimposed on chronic kidney disease Afib Anasarca Anemia Anemia BPH (benign prostatic hyperplasia) Bradycardia Chronic kidney disease Cirrhosis CKD (chronic kidney disease) stage 4, GFR 15-29 ml/min COPD (chronic obstructive pulmonary disease) Depression, major Diabetic retinopathy Diastolic heart failure Edema Essential thrombocytopenia Fistula Gout High cholesterol HTN (hypertension) Hypercholesterolemia Incomplete emptying of bladder due to benign prostatic hyperplasia Lumbar degenerative disc disease Lymphedema Obesity (BMI 30-39.9) Obstructive sleep apnea Osteoarthritis Pacemaker Pancytopenia Paroxysmal A-fib Peripheral neuropathy Peripheral vascular disease Pulmonary hypertension Pulmonary hypertension Scrotal edema SLE (systemic lupus erythematosus related syndrome) Type 2 diabetes mellitus with hyperglycemia Venous stasis dermatitis Family History Family History Father Prostate cancer CVD (cardiovascular disease) Mother Hemochromatosis Brother Motor vehicle accident Sister CAD (coronary artery disease) Maternal Grandfather Myocardial infarction Surgical History Surgical History H/O prior ablation treatment History of bilateral cataract extraction History of bowel diversion surgery History of carpal tunnel release History of gastric surgery History of tonsillectomy Social History Social History Household Members: Spouse Housing: House Do you presently have visiting nurse or other home services: Yes Alcohol intake: never Patient Tobacco Use Status: Former Tobacco user Tobacco use type: Cigarette Smoked in Last 30 Days: No e-Cigarette/Vaping Use: Former Use Patient Interested in Nicotine Replacement: No Patient Given Instructions on How to Stop Smoking: No Second Hand Smoke Exposure: Yes Use of substances other than those prescribed or required for medical reasons: No Substance Use Type: Marijuana Currently Displaying Signs/Symptoms of Drug Intoxication Withdrawal: No Any prior treatment program specific to substance use: No Have you been hit, kicked, punched, or otherwise hurt by someone within the past year? If so, by whom?: No Do you feel safe in your current relationship?: Yes Is there a partner from a previous relationship who is making you feel unsafe now?: No Are you made to feel afraid or neglected: No Advance Directives: No Advance Directives Information Provided: Yes Do you have thoughts of harming others: None Do you have a plan to hurt others: No Plan Recently lost weight without trying: Unsure How much weight loss: Unsure Eating poorly because of decreased appetite: Yes Nutrition screen score: 5 Nutrition Risks: Recent weight gain Poor oral hygiene: No service: No Current occupational status: retired Cognitive needs: Yes Hearing needs: Yes Vision needs: Yes Meds Allergies Allergy/AdvReac Type Severity Reaction Status Date / Time No Known Allergies Allergy Verified 10/13/22 17:04 [No Known Allergies*] Active Medications: Current Medications Acetaminophen (Acetaminophen 325 Mg Tablet) 650 mg PO Q6H PRN PRN Reason: Pain, Mild (Pain Scale 1-3) Albuterol Sulfate (Albuterol Sulfate 90 Mcg 8 Gm Inhaler) 2 puff INHALE Q4H PRN PRN Reason: Shortness Of Breath Or Wheezing Calcitriol (Calcitriol 0.25 Mcg Capsule) 0.5 mcg PO DAILY [facility] Last Admin: 10/15/22 09:27 Dose: 0.5 mcg Clotrimazole (Clotrimazole 1 % Cream 15 Gm Tube) 1 appl TOPICAL BID [facility]ERT; Protocol Docusate Sodium (Docusate Sodium 100 Mg Capsule) 100 mg PO DAILY PRN PRN Reason: Constipation Doxazosin Mesylate (Doxazosin Mesylate 2 Mg Tablet) 4 mg PO BEDTIME [facility]ERT Last Admin: 10/14/22 21:49 Dose: 4 mg Ferrous Sulfate (Ferrous Sulfate 324 Mg Tablet.Dr) 324 mg PO DAILY [facility] Last Admin: 10/15/22 09:24 Dose: 324 mg Glucose (Glucose Gel 15 Gm Gel..Gram.) 15 gm PO Q15M PRN; Protocol PRN Reason: per Hypoglycemia Standing Ord. Heparin Sodium (Porcine) (Heparin Sodium,Porcine 5,000 Unit/Ml Vial) 5,000 unit SUBCUT Q8H [facility] Last Admin: 10/15/22 06:37 Dose: 5,000 unit Dextrose (D10) 250 mls @ 750 mls/hr IV Q15M PRN; Protocol PRN Reason: per Hypoglycemia Standing Ord. Furosemide 200 mg/ Sodium (Chloride) 100 mls @ 5 mls/hr IVCONT .Q20H [facility] Last Admin: 10/14/22 15:55 Dose: 5 mg/hr, 2.5 mls/hr Insulin Human Lispro (Insulin Lispro 100 Unit/Ml 3 Ml Vial) 0 unit SUBCUT QIDACHS [facility]; Protocol Last Admin: 10/15/22 07:46 Dose: Not Given Isosorbide Mononitrate (Isosorbide Mononitrate 30 Mg Tab.Er.24h) 30 mg PO DAILY [facility]; Protocol Last Admin: 10/14/22 09:29 Dose: 30 mg Metoprolol Tartrate (Metoprolol Tartrate 12.5 Mg Halftab) 12.5 mg PO BID [facility]; Protocol Last Admin: 10/14/22 09:28 Dose: 12.5 mg Non-Formulary Medication (Umeclidinium-Vilanterol [Anoro Ellipta]) 1 each INHALE DAILY [facility] Nystatin (Nystatin Powder 15 Gm Bottle) 1 appl TOPICAL BID [facility]; Protocol Ondansetron HCl (Ondansetron Hcl 4 Mg/2 Ml Vial) 4 mg IVPUSH Q8H PRN PRN Reason: Nausea and Vomiting Pharmacy Consult (Consult Rx Perform Med Rec) 1 each MISCELLANE ONCE PRN PRN Reason: Consult order Polyethylene Glycol (Polyethylene Glycol 3350 17 Gm Powd.Pack) 17 gm PO DAILY PRN PRN Reason: Constipation Pravastatin Sodium (Pravastatin Sodium 20 Mg Tablet) 20 mg PO BEDTIME [facility] Last Admin: 10/14/22 21:49 Dose: 20 mg Sodium Bicarbonate (Sodium Bicarbonate 650 Mg Tablet) 650 mg PO QID PRN PRN Reason: Gastric Reflux Sodium Chloride (0.9 % Sodium Chloride Flush 3 Ml Syringe) 3 ml IVFLUSH QSHIFT [facility] Last Admin: 10/15/22 09:24 Dose: 3 ml Home Medications Medication Instructions Recorded Confirmed Last Taken Type calcitriol 0.5 mcg capsule 0.5 mcg PO DAILY 04/03/20 10/13/22 10/13/22 History albuterol sulfate 90 mcg/actuation 2 puff inhalation Q4H PRN 07/05/20 10/13/22 10/13/22 History aerosol inhaler (ProAir HFA) Shortness Of Breath Or Wheezing sodium bicarbonate 650 mg tablet 650 mg PO QID PRN Gastric Reflux 09/22/22 10/13/22 10/13/22 History polyethylene glycol 3350 17 gram 17 g PO DAILY PRN Constipation 09/24/22 10/13/22 10/13/22 History oral powder packet (Miralax) terazosin 5 mg capsule 5 mg PO BEDTIME 10/13/22 10/13/22 10/13/22 History Physical Exam Vital Signs: Vital Signs: Last Vital Signs Temp 98.6 F 10/15/22 07:28 Pulse 94 10/15/22 07:28 Resp 20 10/15/22 07:28 BP 125/64 10/15/22 07:28 Pulse Ox 94 10/15/22 07:28 O2 Del Method Room Air 10/15/22 07:28 BMI result Body Mass Index 40.8 Results Labs 10/15/22 05:37 10/15/22 05:37 Labs: Abnormal lab results 10/14/22 10/14/22 10/15/22 Range/Units 07:21 13:23 05:37 Hgb 7.9 L (14.0-18.0) g/dl Hct 24.2 L (42.0-52.0) % Chloride (96-108) mmol/L Carbon Dioxide (22-29) mmol/L BUN (9-16) mg/dL Creatinine (0.5-1.4) mg/dL Ferritin 449 H (20-250) ng/mL B-Natriuretic Peptide (<100) pg/mL Crossmatch (AHG) See Detail 10/15/22 10/15/22 Range/Units 05:37 05:37 Hgb (14.0-18.0) g/dl Hct (42.0-52.0) % Chloride 110 H (96-108) mmol/L Carbon Dioxide 19 L (22-29) mmol/L BUN 98 H (9-16) mg/dL Creatinine 4.15 H* (0.5-1.4) mg/dL Ferritin (20-250) ng/mL B-Natriuretic Peptide 1246 H (<100) pg/mL Crossmatch (AHG) Short CBC 10/15/22 Range/Units 05:37 Hgb 7.9 L (14.0-18.0) g/dl Hct 24.2 L (42.0-52.0) % BMP 10/15/22 05:37 Sodium 143 Potassium 4.2 Chloride 110 H Carbon Dioxide 19 L BUN 98 H Creatinine 4.15 H* Calcium 8.5 Urine 10/14/22 Range/Units 00:58 Urine Color Yellow Urine Appearance Clear Urine pH 5.0 (5.0-9.0) Ur Specific [place] 1.010 (1.005-1.025) Urine Protein Negative (Neg-Trace) mg/dL Urine Glucose (UA) Negative (Negative) mg/dL All other labs normal. Imaging Additional studies: Date of Service: 09/24/22 CT ABDOMEN AND PELVIS WITHOUT CONTRAST? CLINICAL INFORMATION: Hematuria? COMPARISON: December 24, 2020? TECHNIQUE: Multidetector volumetric imaging was performed from the superior aspect of the liver through the pubic symphysis. Sagittal and coronal reformatted images were obtained on the technologist's workstation.? This CT examination was performed using dose optimization techniques as appropriate, variously including the following: *Automated exposure control *Adjustment of mA and/or kV according to patient size (this includes techniques or standardized protocols for targeted exams where dose is matched to indication/reason for exam; i.e. extremities or head) *Use of iterative reconstruction technique DLP: 971 mGy-cm FINDINGS: LUNG BASES: There is some discoid atelectasis or scarring seen within the lingula. No pleural or pericardial effusion. Heart is upper limits of normal in size. Coronary artery calcification is present.? LIVER, GALLBLADDER, AND BILIARY TREE: The liver has a nodular appearance without focal mass or intrahepatic bile duct dilatation being identified. The gallbladder is unremarkable with no evidence of radiopaque gallstones, gallbladder wall thickening, or obvious pericholecystic inflammatory changes.? PANCREAS: Unremarkable. No definite mass or peripancreatic fluid is identified however there is some limited evaluation due to the ascites present. SPLEEN: Unremarkable.? ADRENAL GLANDS: Unremarkable.? KIDNEYS AND URETERS: The kidneys are normal in size, shape, and attenuation. No hydronephrosis, hydroureter, or collecting system calculi seen. There are some vascular calcifications present. There is perinephric stranding seen. BLADDER: There is nondependent gas present as well as gas about the urinary bladder wall with the wall being thickened. This has the appearance of emphysematous cystitis.? GASTROINTESTINAL TRACT: There is small to moderate amount of ascites present. No free air is identified. No dilated loops of large or small bowel.? ABDOMINAL WALL: Anasarca is present.? LYMPH NODES: There are enlarged bilateral inguinal lymph nodes and right iliac chain lymph nodes VASCULAR: There is prominent calcified plaque throughout the aortoiliac system with no evidence of abdominal aortic aneurysm. PELVIC VISCERA: No suspicious pelvic masses identified.? OSSEOUS STRUCTURES: No suspicious destructive bony lesions identified. There is multilevel severe degenerative disc disease seen.? IMPRESSION: Emphysematous cystitis.? Findings consistent with cirrhosis and small to moderate amount of ascites.? Enlarged bilateral inguinal lymph nodes and right iliac chain lymph nodes. Assessment and Plan (1) Urinary retention with incomplete bladder emptying: Status: Acute (2) Penile swelling: Status: Acute Plan Dorado catheter placed To remain until ambulatory Time Spent With Patient Time: Total time managing care of this patient today ____ minutes.
--- NOTE | 2022-10-15 10:19 | MHC.CM.PN ---
Per ROUNDS discussion, Patient is not yet medically cleared for dc (IV Lasix); Home/resume vna is the goal and CM will continue to follow.
--- NOTE | 2022-10-15 10:21 | PM.UROCN ---
History of Present Illness Consult details Consult date: 10/15/22 Narrative: Concerning complain - retention 67-year-old male Past medical history significant for diabetes, COPD, hypertension, CKD stage 4, AF on Eliquis Recent admission to [facility] June 2022 for perforated bowel Presents through emergency room with CHF Lasix drip initiated Has significant scrotal edema with penile edema Dorado catheter placed with 600 cc output - difficult catheter placed Review of Systems Constitutional: Constitutional: Reports as per HPI and Reports no additional constitutional complaints Cardiovascular: Cardiovascular: Reports as per HPI and Reports no additional cardiovascular complaints Respiratory: Respiratory: Reports as per HPI and Reports no additional respiratory complaints Gastrointestinal: Gastrointestinal: Reports as per HPI and Reports no additional gastrointestinal complaints Genitourinary: Genitourinary: Reports as per HPI Musculoskeletal: Musculoskeletal: Reports no additional musculoskeletal complaints and Reports as per HPI Neurologic: Reports system reviewed and no additional complaints, except as documented and Reports as per HPI [facility] Past Medical History Medical History Acute kidney injury superimposed on chronic kidney disease Afib Anasarca Anemia Anemia BPH (benign prostatic hyperplasia) Bradycardia Chronic kidney disease Cirrhosis CKD (chronic kidney disease) stage 4, GFR 15-29 ml/min COPD (chronic obstructive pulmonary disease) Depression, major Diabetic retinopathy Diastolic heart failure Edema Essential thrombocytopenia Fistula Gout High cholesterol HTN (hypertension) Hypercholesterolemia Incomplete emptying of bladder due to benign prostatic hyperplasia Lumbar degenerative disc disease Lymphedema Obesity (BMI 30-39.9) Obstructive sleep apnea Osteoarthritis Pacemaker Pancytopenia Paroxysmal A-fib Peripheral neuropathy Peripheral vascular disease Pulmonary hypertension Pulmonary hypertension Scrotal edema SLE (systemic lupus erythematosus related syndrome) Type 2 diabetes mellitus with hyperglycemia Venous stasis dermatitis Family History Family History Father Prostate cancer CVD (cardiovascular disease) Mother Hemochromatosis Brother Motor vehicle accident Sister CAD (coronary artery disease) Maternal Grandfather Myocardial infarction Surgical History Surgical History H/O prior ablation treatment History of bilateral cataract extraction History of bowel diversion surgery History of carpal tunnel release History of gastric surgery History of tonsillectomy Social History Social History Household Members: Spouse Housing: House Do you presently have visiting nurse or other home services: Yes Alcohol intake: never Patient Tobacco Use Status: Former Tobacco user Tobacco use type: Cigarette Smoked in Last 30 Days: No e-Cigarette/Vaping Use: Former Use Patient Interested in Nicotine Replacement: No Patient Given Instructions on How to Stop Smoking: No Second Hand Smoke Exposure: Yes Use of substances other than those prescribed or required for medical reasons: No Substance Use Type: Marijuana Currently Displaying Signs/Symptoms of Drug Intoxication Withdrawal: No Any prior treatment program specific to substance use: No Have you been hit, kicked, punched, or otherwise hurt by someone within the past year? If so, by whom?: No Do you feel safe in your current relationship?: Yes Is there a partner from a previous relationship who is making you feel unsafe now?: No Are you made to feel afraid or neglected: No Advance Directives: No Advance Directives Information Provided: Yes Do you have thoughts of harming others: None Do you have a plan to hurt others: No Plan Recently lost weight without trying: Unsure How much weight loss: Unsure Eating poorly because of decreased appetite: Yes Nutrition screen score: 5 Nutrition Risks: Recent weight gain Poor oral hygiene: No service: No Current occupational status: retired Cognitive needs: Yes Hearing needs: Yes Vision needs: Yes Meds Allergies Allergy/AdvReac Type Severity Reaction Status Date / Time No Known Allergies Allergy Verified 10/13/22 17:04 [No Known Allergies*] Active Medications: Current Medications Acetaminophen (Acetaminophen 325 Mg Tablet) 650 mg PO Q6H PRN PRN Reason: Pain, Mild (Pain Scale 1-3) Albuterol Sulfate (Albuterol Sulfate 90 Mcg 8 Gm Inhaler) 2 puff INHALE Q4H PRN PRN Reason: Shortness Of Breath Or Wheezing Calcitriol (Calcitriol 0.25 Mcg Capsule) 0.5 mcg PO DAILY [facility] Last Admin: 10/15/22 09:27 Dose: 0.5 mcg Clotrimazole (Clotrimazole 1 % Cream 15 Gm Tube) 1 appl TOPICAL BID [facility]; Protocol Docusate Sodium (Docusate Sodium 100 Mg Capsule) 100 mg PO DAILY PRN PRN Reason: Constipation Doxazosin Mesylate (Doxazosin Mesylate 2 Mg Tablet) 4 mg PO BEDTIME [facility] Last Admin: 10/14/22 21:49 Dose: 4 mg Ferrous Sulfate (Ferrous Sulfate 324 Mg Tablet.Dr) 324 mg PO DAILY [facility] Last Admin: 10/15/22 09:24 Dose: 324 mg Glucose (Glucose Gel 15 Gm Gel..Gram.) 15 gm PO Q15M PRN; Protocol PRN Reason: per Hypoglycemia Standing Ord. Heparin Sodium (Porcine) (Heparin Sodium,Porcine 5,000 Unit/Ml Vial) 5,000 unit SUBCUT Q8H [facility] Last Admin: 10/15/22 06:37 Dose: 5,000 unit Dextrose (D10) 250 mls @ 750 mls/hr IV Q15M PRN; Protocol PRN Reason: per Hypoglycemia Standing Ord. Furosemide 200 mg/ Sodium (Chloride) 100 mls @ 5 mls/hr IVCONT .Q20H [facility] Last Admin: 10/14/22 15:55 Dose: 5 mg/hr, 2.5 mls/hr Insulin Human Lispro (Insulin Lispro 100 Unit/Ml 3 Ml Vial) 0 unit SUBCUT QIDACHS [facility]; Protocol Last Admin: 10/15/22 07:46 Dose: Not Given Isosorbide Mononitrate (Isosorbide Mononitrate 30 Mg Tab.Er.24h) 30 mg PO DAILY [facility]; Protocol Last Admin: 10/14/22 09:29 Dose: 30 mg Metoprolol Tartrate (Metoprolol Tartrate 12.5 Mg Halftab) 12.5 mg PO BID [facility]; Protocol Last Admin: 10/14/22 09:28 Dose: 12.5 mg Non-Formulary Medication (Umeclidinium-Vilanterol [Anoro Ellipta]) 1 each INHALE DAILY [facility] Nystatin (Nystatin Powder 15 Gm Bottle) 1 appl TOPICAL BID [facility]; Protocol Ondansetron HCl (Ondansetron Hcl 4 Mg/2 Ml Vial) 4 mg IVPUSH Q8H PRN PRN Reason: Nausea and Vomiting Pharmacy Consult (Consult Rx Perform Med Rec) 1 each MISCELLANE ONCE PRN PRN Reason: Consult order Polyethylene Glycol (Polyethylene Glycol 3350 17 Gm Powd.Pack) 17 gm PO DAILY PRN PRN Reason: Constipation Pravastatin Sodium (Pravastatin Sodium 20 Mg Tablet) 20 mg PO BEDTIME [facility] Last Admin: 10/14/22 21:49 Dose: 20 mg Sodium Bicarbonate (Sodium Bicarbonate 650 Mg Tablet) 650 mg PO QID PRN PRN Reason: Gastric Reflux Sodium Chloride (0.9 % Sodium Chloride Flush 3 Ml Syringe) 3 ml IVFLUSH QSHIFT [facility] Last Admin: 10/15/22 09:24 Dose: 3 ml Home Medications Medication Instructions Recorded Confirmed Last Taken Type calcitriol 0.5 mcg capsule 0.5 mcg PO DAILY 04/03/20 10/13/22 10/13/22 History albuterol sulfate 90 mcg/actuation 2 puff inhalation Q4H PRN 07/05/20 10/13/22 10/13/22 History aerosol inhaler (ProAir HFA) Shortness Of Breath Or Wheezing sodium bicarbonate 650 mg tablet 650 mg PO QID PRN Gastric Reflux 09/22/22 10/13/22 10/13/22 History polyethylene glycol 3350 17 gram 17 g PO DAILY PRN Constipation 09/24/22 10/13/22 10/13/22 History oral powder packet (Miralax) terazosin 5 mg capsule 5 mg PO BEDTIME 10/13/22 10/13/22 10/13/22 History Physical Exam Vital Signs: Vital Signs: Last Vital Signs Temp 98.6 F 10/15/22 07:28 Pulse 94 10/15/22 07:28 Resp 20 10/15/22 07:28 BP 125/64 10/15/22 07:28 Pulse Ox 94 10/15/22 07:28 O2 Del Method Room Air 10/15/22 07:28 BMI result Body Mass Index 40.8 Const: General: cooperative, healthy appearing, comfortable and no acute distress Orientation/consciousness: patient oriented x3 HEENT: Face and sinus: Yes normal facial exam Mouth: moist mucous membranes Neck: Neck: Yes normal visual inspection, Yes full ROM and Yes trachea midline Chest: Chest palpation & inspection: normal inspection of the chest Resp: Effort & Inspection: normal respiratory effort, able to speak in complete sentences and no respiratory distress GI: Inspection: Yes normal to inspection Back/Spine/Pelvis: Cervical Spine: normal cervical lordosis Thoracic/Lumbar Spine: thoracic and lumbar spine normal to inspection Skin: General skin exam: no rashes or lesions noted Neuro: General: patient oriented x3, tone normal and moves all extremities Extrem: General: Yes normal to inspection and Yes capillary refill normal Results Labs 10/15/22 05:37 10/15/22 05:37 Labs: Abnormal lab results 10/14/22 10/14/22 10/15/22 Range/Units 07:21 13:23 05:37 Hgb 7.9 L (14.0-18.0) g/dl Hct 24.2 L (42.0-52.0) % Chloride (96-108) mmol/L Carbon Dioxide (22-29) mmol/L BUN (9-16) mg/dL Creatinine (0.5-1.4) mg/dL Ferritin 449 H (20-250) ng/mL B-Natriuretic Peptide (<100) pg/mL Crossmatch (AHG) See Detail 10/15/22 10/15/22 Range/Units 05:37 05:37 Hgb (14.0-18.0) g/dl Hct (42.0-52.0) % Chloride 110 H (96-108) mmol/L Carbon Dioxide 19 L (22-29) mmol/L BUN 98 H (9-16) mg/dL Creatinine 4.15 H* (0.5-1.4) mg/dL Ferritin (20-250) ng/mL B-Natriuretic Peptide 1246 H (<100) pg/mL Crossmatch (AHG) Short CBC 10/15/22 Range/Units 05:37 Hgb 7.9 L (14.0-18.0) g/dl Hct 24.2 L (42.0-52.0) % BMP 10/15/22 05:37 Sodium 143 Potassium 4.2 Chloride 110 H Carbon Dioxide 19 L BUN 98 H Creatinine 4.15 H* Calcium 8.5 Urine 10/14/22 Range/Units 00:58 Urine Color Yellow Urine Appearance Clear Urine pH 5.0 (5.0-9.0) Ur Specific [place] 1.010 (1.005-1.025) Urine Protein Negative (Neg-Trace) mg/dL Urine Glucose (UA) Negative (Negative) mg/dL All other labs normal. Assessment and Plan (1) Urinary retention with incomplete bladder emptying: Status: Acute Plan Dorado catheter placed To remain until ambulatory Time Spent With Patient Time: Total time managing care of this patient today ____ minutes. Procedures Date of Service Date of Service: 10/15/22 Catheter Insertion (Urinary) Date of insertion: 10/15/22 Replacement of catheter present on admission: No Reason for placing: Acute urinary retention (600 cc residual on diuretics) Bladder scan/ultrasound used before catheterization: Yes Estimated amount of urine (mLs): 600 Antiseptic solution prep: Povidone-Iodine Topical anesthesia used: Yes Catheter type/location: 2-way Urethral Size (Czech): 16 Catheter balloon size (mL): 10 Results: successfully catheterized-immediate flow Procedure performed: without complications Complications: Urology placement for difficult Dorado catheterization
--- NOTE | 2022-10-15 10:35 | PM.PNCARD ---
Subjective Subjective Date of Service: 10/15/22 Principal diagnosis: Decompensated heart failure Interval history: patient remain short of breath but says he is improving. Continues to have swelling including significant scrotal edema as well as leg swelling and abdominal distension. Eyes and nose are not well charted, there is difficulty in monitoring his output due to his incontinence. His creatinine is still elevated. His Lasix was increased to 10 mg per hour. His hematocrit remains low Review of Systems Constitutional: Reports lethargy Cardiovascular: Reports Abdominal Distension, Denies chest pain, Reports leg edema, Denies lightheadedness and Reports dyspnea Respiratory: Reports no additional respiratory complaints and Reports dyspnea Physical Exam Vital Signs: Last Vital Signs Temp 98.6 F 10/15/22 07:28 Pulse 94 10/15/22 07:28 Resp 20 10/15/22 07:28 BP 125/64 10/15/22 07:28 Pulse Ox 94 10/15/22 07:28 O2 Del Method Room Air 10/15/22 07:28 BMI result Body Mass Index 40.8 Const General: cooperative, no acute distress, alert and awake Nutritional Appearance: obese Orientation/consciousness: patient oriented x3 Neck Neck: Yes trachea midline, Yes supple and Yes JVD Resp Effort & Inspection: normal respiratory effort Auscultation: no rales, no wheezes and diminished lung sounds Cardio Jugular venous distension: JVD Rate: regular rate Rhythm: regular rhythm Heart sounds: S1 normal heart sound present, S2 normal heart sound present, no click, no gallops, no murmurs and no rubs GI Inspection: Yes distended Auscultation: normal bowel sounds Skin General skin exam: no rashes or lesions noted Neuro General: patient oriented x3 Extrem General: No clubbing, No cyanosis and Yes edema Objective Labs and Meds 10/15/22 05:37 10/15/22 05:37 Lab results: Laboratory Results - last 24 hr 10/14/22 10/14/22 10/14/22 11:06 13:23 15:06 Hgb Hct Sodium Potassium Chloride Carbon Dioxide Anion Gap BUN Creatinine Estim Creat Clear Calc Estimated GFR POC Glucose 103 111 Random Glucose Calcium B-Natriuretic Peptide Blood Type A Negative Antibody Screen NEGATIVE Crossmatch ([facility]) See Detail 10/14/22 10/15/22 10/15/22 19:16 05:37 05:37 Hgb 7.9 L Hct 24.2 L Sodium 143 Potassium 4.2 Chloride 110 H Carbon Dioxide 19 L Anion Gap 18 BUN 98 H Creatinine 4.15 H* Estim Creat Clear Calc 23.3 Estimated GFR 14 POC Glucose 93 Random Glucose 72 Calcium 8.5 B-Natriuretic Peptide Blood Type Antibody Screen Crossmatch ([facility] [place]) 10/15/22 10/15/22 05:37 07:29 Hgb Hct Sodium Potassium Chloride Carbon Dioxide Anion Gap BUN Creatinine Estim Creat Clear Calc Estimated GFR POC Glucose 81 Random Glucose Calcium B-Natriuretic Peptide 1246 H Blood Type Antibody Screen Crossmatch ([facility] [place]) Progress Note: A&P Assessment and plan (1) Decompensated heart failure: Status: Acute Assessment and Plan: decompensated congestive heart failure predominantly right-sided heart failure with multiple comorbidities including poor functional status, paroxysmal atrial fibrillation, advanced kidney dysfunction as well as significant anemia. Clinically has tepid diuretic response. Agree with increasing Lasix to 10 mg an hour and add metolazone 2.5 mg to his regimen. Nephrology is on the case and considering dialysis if he has poor response. Agree with that plan although I think he will respond to more aggressive diuresis. Continue transfuse to maintain hematocrit over 30 (2) Paroxysmal A-fib: Status: Acute Assessment and Plan: paroxysmal atrial fibrillation without any obvious clinical recurrence, intermittent episodes. Will continue monitor clinically. Continue metoprolol. Can hold Eliquis for next few days but resume in about a week to reduce risk of stroke. His blood pressure is currently improved. No need for antiarrhythmic drug therapy. Will continue to follow with you Time Spent With Patient Time: Total time managing care of this patient today ____ minutes. Progress Note: Quality Stroke Does the patient have a stroke diagnosis?: No Procedures Date of Service Date of Service: 10/15/22
[2022-10-15 11:19] LABS: Glucose, Whole Blood 112 mg/dL (60-115)
[2022-10-15] MEDS: Acetaminophen 325 MG TABLET 650 MG PO (12:49)
[2022-10-15] MEDS: metOLazone 2.5 MG TABLET PO (12:49)
[2022-10-15] MEDS: Furosemide 200 MG in 0.9 % Sodium Chloride 80 ML IVCONT (12:50)
--- NOTE | 2022-10-15 14:00 | HO.PM.IMPN ---
Subjective Subjective Date of Service: 10/15/22 Interval History: Acute HFpEF exacerbation,ckd 4 Review of Systems sob seems improvin,has b/l leg swellin/scrotal swellin Producing urine but able to put in the urinal because of significant scrotal /denies swelling Nor edema or discharge Physical Exam Vital Signs: Vital Signs: Last Vital Signs Temp 98.3 F 10/15/22 13:15 Pulse 82 10/15/22 13:15 Resp 20 10/15/22 13:15 BP 139/78 10/15/22 13:15 Pulse Ox 94 10/15/22 10:45 O2 Del Method Room Air 10/15/22 10:45 BMI result Body Mass Index 40.8 Appearance: Alert.? Oriented X3.? sob improving? cvs: rrr, [id number] . res: clear to auscultation ,no rhonchii or wheezing abd: no rebound or guarding ,nt, bs present. abd : soft ,nd , nt ,bs present : scrotal/penile swellin ext pulses present , no cyanosis . neuro: axo3 , nonfocal. Objective Data Active Medications Acetaminophen (Acetaminophen 325 Mg Tablet) 650 mg PO Q6H PRN PRN Reason: Pain, Mild (Pain Scale 1-3) Albuterol Sulfate (Albuterol Sulfate 90 Mcg 8 Gm Inhaler) 2 puff INHALE Q4H PRN PRN Reason: Shortness Of Breath Or Wheezing Calcitriol (Calcitriol 0.25 Mcg Capsule) 0.5 mcg PO DAILY COUNTS INCLUDE 234 BEDS AT THE [facility] Last Admin: 10/15/22 09:27 Dose: 0.5 mcg Documented By: ISAAC Clotrimazole (Clotrimazole 1 % Cream 15 Gm Tube) 1 appl TOPICAL BID COUNTS INCLUDE 234 BEDS AT THE [facility]; Protocol Docusate Sodium (Docusate Sodium 100 Mg Capsule) 100 mg PO DAILY PRN PRN Reason: Constipation Doxazosin Mesylate (Doxazosin Mesylate 2 Mg Tablet) 4 mg PO BEDTIME COUNTS INCLUDE 234 BEDS AT THE [facility] Last Admin: 10/14/22 21:49 Dose: 4 mg Documented By: KAYLEEN Ferrous Sulfate (Ferrous Sulfate 324 Mg Tablet.) 324 mg PO DAILY COUNTS INCLUDE 234 BEDS AT THE [facility] Last Admin: 10/15/22 09:24 Dose: 324 mg Documented By: ISAAC Glucose (Glucose Gel 15 Gm Gel..Gram.) 15 gm PO Q15M PRN; Protocol PRN Reason: per Hypoglycemia Standing Ord. Heparin Sodium (Porcine) (Heparin Sodium,Porcine 5,000 Unit/Ml Vial) 5,000 unit SUBCUT Q8H COUNTS INCLUDE 234 BEDS AT THE [facility] Last Admin: 10/15/22 06:37 Dose: 5,000 unit Documented By: KAYLEEN Dextrose (D10) 250 mls @ 750 mls/hr IV Q15M PRN; Protocol PRN Reason: per Hypoglycemia Standing Ord. Furosemide 200 mg/ Sodium (Chloride) 100 mls @ 5 mls/hr IVCONT .Q20H COUNTS INCLUDE 234 BEDS AT THE [facility] Last Admin: 10/15/22 12:50 Dose: 5 mg/hr, 2.5 mls/hr Documented By: ISAAC Insulin Human Lispro (Insulin Lispro 100 Unit/Ml 3 Ml Vial) 0 unit SUBCUT QIDACHS COUNTS INCLUDE 234 BEDS AT THE [facility]; Protocol Last Admin: 10/15/22 11:20 Dose: Not Given Documented By: ISAAC Non-Admin Reason: No Insulin Coverage Isosorbide Mononitrate (Isosorbide Mononitrate 30 Mg Tab.Er.24h) 30 mg PO DAILY COUNTS INCLUDE 234 BEDS AT THE [facility]; Protocol Last Admin: 10/14/22 09:29 Dose: 30 mg Documented By: HALIE Metoprolol Tartrate (Metoprolol Tartrate 12.5 Mg Halftab) 12.5 mg PO BID COUNTS INCLUDE 234 BEDS AT THE [facility]; Protocol Last Admin: 10/14/22 09:28 Dose: 12.5 mg Documented By: HALIE Non-Formulary Medication (Umeclidinium-Vilanterol [Anoro Ellipta]) 1 each INHALE DAILY COUNTS INCLUDE 234 BEDS AT THE [facility] Nystatin (Nystatin Powder 15 Gm Bottle) 1 appl TOPICAL BID COUNTS INCLUDE 234 BEDS AT THE [facility]; Protocol Ondansetron HCl (Ondansetron Hcl 4 Mg/2 Ml Vial) 4 mg IVPUSH Q8H PRN PRN Reason: Nausea and Vomiting Pharmacy Consult (Consult Rx Perform Med Rec) 1 each MISCELLANE ONCE PRN PRN Reason: Consult order Polyethylene Glycol (Polyethylene Glycol 3350 17 Gm Powd.Pack) 17 gm PO DAILY PRN PRN Reason: Constipation Pravastatin Sodium (Pravastatin Sodium 20 Mg Tablet) 20 mg PO BEDTIME COUNTS INCLUDE 234 BEDS AT THE [facility] Last Admin: 10/14/22 21:49 Dose: 20 mg Documented By: KAYLEEN Sodium Bicarbonate (Sodium Bicarbonate 650 Mg Tablet) 650 mg PO QID PRN PRN Reason: Gastric Reflux Sodium Chloride (0.9 % Sodium Chloride Flush 3 Ml Syringe) 3 ml IVFLUSH QSHIFT COUNTS INCLUDE 234 BEDS AT THE [facility] Last Admin: 10/15/22 09:24 Dose: 3 ml Documented By: ISAAC Labs 10/15/22 05:37 10/15/22 05:37 Labs: Laboratory Results - last 24 hr 10/14/22 10/14/22 10/14/22 13:23 15:06 19:16 Anion Gap Estim Creat Clear Calc Estimated GFR POC Glucose 111 93 Random Glucose Calcium B-Natriuretic Peptide Blood Type A Negative Antibody Screen NEGATIVE Crossmatch ([facility]) See Detail 10/15/22 10/15/22 10/15/22 05:37 05:37 07:29 Anion Gap 18 Estim Creat Clear Calc 23.3 Estimated GFR 14 POC Glucose 81 Random Glucose 72 Calcium 8.5 B-Natriuretic Peptide 1246 H Blood Type Antibody Screen Crossmatch ([facility]) 10/15/22 10:49 Anion Gap Estim Creat Clear Calc Estimated GFR POC Glucose 112 Random Glucose Calcium B-Natriuretic Peptide Blood Type Antibody Screen Crossmatch ([facility]) Microbiology Microbiology Results: Microbiology 10/14/22 Unknown Urine Culture - Final Urine clean catch - Urine keys top Assessment and Plan (1) Decompensated heart failure: Status: Acute (2) CKD (chronic kidney disease) stage 4, GFR 15-29 ml/min: Status: Acute Plan 67-year-old male with a PMH significant for?CKD stage 4 not on dialysis, [id number] diabetes type 2, COPD, HTN, HLD, ZEYAD, and AFib on Eliquis who presents to the ED with?worsening SOB with exertion for the past week. Pt will be admitted to the hospital treatment and further evaluation of acute CHF exacerbation. Acute HFpEF exacerbation,boderline bP Patient with SOB, 12 lb weight gain in past week, increased lower leg and abdominal edema, elevated BNP, CXR with evidence of pulmonary edema Follow lytes, mg, I/O( we will place garcia) Daily weights, low-salt diet Last echocardiogram on 09/25/2022 found low normal LV systolic function with mild LVH and at least grade 2 diastolic dysfunction producing urine but difficult to collect in the urinal and also difficult to place urine a get tighter because of significant penile swelling he is still sob and lower ext swellin, bnp trending up Cardiology consult-adjusted lasix drip 10 mg/hr ,metolazone , moniter bnp, i/o strict, hold bp meds:amlodipine /bb/imdure , if needed will add midodrine. added albumin . Monitor on telemetry Hyperphosphatemia Patient's phosphorus 5.6,improving, likely secondary to patient's CKD Low phosphorus diet Follow phosphorus levels CKD stage 4 Patient creatinine 4.15, estimated GFR 15 Stable, at baseline Nephrology consult- may need hd . Paroxysmal atrial fibrillation Continue metoprolol Eliquis being held by Cardiology d/t bruising from pacemaker implantation Non insulin-dependent diabetes type 2, diet-controlled Patient not on home meds Cover with sliding scale insulin HTN Continue amlodipine COPD Not in acute exacerbation Continue home inhalers DNI inpatient need:acute HFpEF exacerbation with IV diuretics and specialist consults, electrolytic monitering Time Spent With Patient Time: Total time managing care of this patient today ____ minutes. Quality Stroke Does the patient have a stroke diagnosis?: No VTE Prior VTE?: No VTE Risk Level:: Medical - moderate - high VTE Device Contraindication: Treatment Not Indicated VTE Drug Contraindication: N/A - Med Ordered
--- NOTE | 2022-10-15 14:06 | P.PNIM_ITS ---
Subjective Subjective Date of Service: 10/15/22 Interval History: Acute HFpEF exacerbation,ckd 4 Review of Systems sob seems similar to yesterday has b/l leg swellin/scrotal swellin Producing urine but able to put in the urinal because of significant scrotal /denies swelling Nor edema or discharge Physical Exam Vital Signs: Vital Signs: Last Vital Signs Temp 98.3 F 10/15/22 13:15 Pulse 82 10/15/22 13:15 Resp 20 10/15/22 13:15 BP 139/78 10/15/22 13:15 Pulse Ox 94 10/15/22 10:45 O2 Del Method Room Air 10/15/22 10:45 BMI result Body Mass Index 40.8 Appearance: Alert.? Oriented X3.? sob improving? cvs: rrr, [id number] . res: clear to auscultation ,no rhonchii or wheezing abd: no rebound or guarding ,nt, bs present. abd : soft ,nd , nt ,bs present : scrotal/penile swellin ext pulses present , no cyanosis . neuro: axo3 , nonfocal. Objective Data Active Medications Acetaminophen (Acetaminophen 325 Mg Tablet) 650 mg PO Q6H PRN PRN Reason: Pain, Mild (Pain Scale 1-3) Albuterol Sulfate (Albuterol Sulfate 90 Mcg 8 Gm Inhaler) 2 puff INHALE Q4H PRN PRN Reason: Shortness Of Breath Or Wheezing Calcitriol (Calcitriol 0.25 Mcg Capsule) 0.5 mcg PO DAILY [facility] Last Admin: 10/15/22 09:27 Dose: 0.5 mcg Documented By: ISAAC Clotrimazole (Clotrimazole 1 % Cream 15 Gm Tube) 1 appl TOPICAL BID [facility]; Helio col Docusate Sodium (Docusate Sodium 100 Mg Capsule) 100 mg PO DAILY PRN PRN Reason: Constipation Doxazosin Mesylate (Doxazosin Mesylate 2 Mg Tablet) 4 mg PO BEDTIME [facility] Last Admin: 10/14/22 21:49 Dose: 4 mg Documented By: KAYLEEN Ferrous Sulfate (Ferrous Sulfate 324 Mg Tablet.) 324 mg PO DAILY [facility] Last Admin: 10/15/22 09:24 Dose: 324 mg Documented By: ISAAC Glucose (Glucose Gel 15 Gm Gel..Gram.) 15 gm PO Q15M PRN; Protocol PRN Reason: per Hypoglycemia Standing Ord. Heparin Sodium (Porcine) (Heparin Sodium,Porcine 5,000 Unit/Ml Vial) 5,000 unit SUBCUT Q8H [facility] Last Admin: 10/15/22 06:37 Dose: 5,000 unit Documented By: KAYLEEN Dextrose (D10) 250 mls @ 750 mls/hr IV Q15M PRN; Protocol PRN Reason: per Hypoglycemia Standing Ord. Furosemide 200 mg/ Sodium (Chloride) 100 mls @ 5 mls/hr IVCONT .Q20H [facility] Last Admin: 10/15/22 12:50 Dose: 5 mg/hr, 2.5 mls/hr Documented By: ISAAC Insulin Human Lispro (Insulin Lispro 100 Unit/Ml 3 Ml Vial) 0 unit SUBCUT QIDACHS [facility]; Protocol Last Admin: 10/15/22 11:20 Dose: Not Given Documented By: ISAAC Non-Admin Reason: No Insulin Coverage Isosorbide Mononitrate (Isosorbide Mononitrate 30 Mg Tab.Er.24h) 30 mg PO DAILY [facility]; Protocol Last Admin: 10/14/22 09:29 Dose: 30 mg Documented By: HALIE Metoprolol Tartrate (Metoprolol Tartrate 12.5 Mg Halftab) 12.5 mg PO BID [facility]; Protocol Last Admin: 10/14/22 09:28 Dose: 12.5 mg Documented By: HALIE Non-Formulary Medication (Umeclidinium-Vilanterol [Anoro Ellipta]) 1 each INHALE DAILY [facility] Nystatin (Nystatin Powder 15 Gm Bottle) 1 appl TOPICAL BID [facility]; Protocol Ondansetron HCl (Ondansetron Hcl 4 Mg/2 Ml Vial) 4 mg IVPUSH Q8H PRN PRN Reason: Nausea and Vomiting Pharmacy Consult (Consult Rx Perform Med Rec) 1 each MISCELLANE ONCE PRN PRN Reason: Consult order Polyethylene Glycol (Polyethylene Glycol 3350 17 Gm Powd.Pack) 17 gm PO DAILY PRN PRN Reason: Constipation Pravastatin Sodium (Pravastatin Sodium 20 Mg Tablet) 20 mg PO BEDTIME [facility] Last Admin: 10/14/22 21:49 Dose: 20 mg Documented By: KAYLEEN Sodium Bicarbonate (Sodium Bicarbonate 650 Mg Tablet) 650 mg PO QID PRN PRN Reason: Gastric Reflux Sodium Chloride (0.9 % Sodium Chloride Flush 3 Ml Syringe) 3 ml IVFLUSH QSHIFT [facility] Last Admin: 10/15/22 09:24 Dose: 3 ml Documented By: ISAAC Labs 10/15/22 05:37 10/15/22 05:37 Labs: Laboratory Results - last 24 hr 10/14/22 10/14/22 10/14/22 13:23 15:06 19:16 Anion Gap Estim Creat Clear Calc Estimated GFR POC Glucose 111 93 Random Glucose Calcium B-Natriuretic Peptide Blood Type A Negative Antibody Screen NEGATIVE Crossmatch ([facility]) See Detail 10/15/22 10/15/22 10/15/22 05:37 05:37 07:29 Anion Gap 18 Estim Creat Clear Calc 23.3 Estimated GFR 14 POC Glucose 81 Random Glucose 72 Calcium 8.5 B-Natriuretic Peptide 1246 H Blood Type Antibody Screen Crossmatch ([facility]) 10/15/22 10:49 Anion Gap Estim Creat Clear Calc Estimated GFR POC Glucose 112 Random Glucose Calcium B-Natriuretic Peptide Blood Type Antibody Screen Crossmatch ([facility]) Microbiology Microbiology Results: Microbiology 10/14/22 Unknown Urine Culture - Final Urine clean catch - Urine keys top Assessment and Plan (1) Decompensated heart failure: Status: Acute (2) CKD (chronic kidney disease) stage 4, GFR 15-29 ml/min: Status: Acute Plan 67-year-old male with a PMH significant for?CKD stage 4 not on dialysis, [id number] diabetes type 2, COPD, HTN, HLD, ZEYAD, and AFib on Eliquis who presents to the ED with?worsening SOB with exertion for the past week. Pt will be admitted to the hospital treatment and further evaluation of acute CHF exacerbation. Acute HFpEF exacerbation,boderline bP Patient with SOB, 12 lb weight gain in past week, increased lower leg and abdominal edema, elevated BNP, CXR with evidence of pulmonary edema Follow lytes, mg, I/O( we will place garcia) Daily weights, low-salt diet Last echocardiogram on 09/25/2022 found low normal LV systolic function with mild LVH and at least grade 2 diastolic dysfunction producing urine but difficult to collect in the urinal and also difficult to place urine a get tighter because of significant penile swelling he is still sob and lower ext swellin, bnp trending up Cardiology consult-adjusted lasix,will add metolazone today (tried with lasix drip 5 mg/hr yesterday-still synptomatic ) , moniter bnp, i/o strict, hold bp meds:amlodipine /bb/imdure , if needed will add midodrine. added albumin . Monitor on telemetry Hyperphosphatemia Patient's phosphorus 5.6,improving, likely secondary to patient's CKD Low phosphorus diet Follow phosphorus levels CKD stage 4 Patient creatinine 4.15, estimated GFR 15 Stable, at baseline Nephrology consult- may need hd . Paroxysmal atrial fibrillation Continue metoprolol Eliquis being held by Cardiology d/t bruising from pacemaker implantation Non insulin-dependent diabetes type 2, diet-controlled Patient not on home meds Cover with sliding scale insulin HTN Continue amlodipine COPD Not in acute exacerbation Continue home inhalers woserning anemia of aocd(ckd) given 1 prbc yesterday-added another prbc -keep hct around 30. DNI inpatient need:acute HFpEF exacerbation with IV diuretics and specialist consults, electrolytic monitering Time Spent With Patient Time: Total time managing care of this patient today ____ minutes. Quality Stroke Does the patient have a stroke diagnosis?: No VTE Prior VTE?: No VTE Risk Level:: Medical - moderate - high VTE Device Contraindication: Treatment Not Indicated VTE Drug Contraindication: N/A - Med Ordered
[2022-10-15 16:38] LABS: Glucose, Whole Blood 96 mg/dL (60-115)
[2022-10-15] MEDS: Pravastatin Sodium 20 MG TABLET PO (20:35)
[2022-10-15] MEDS: Doxazosin Mesylate 2 MG TABLET 4 MG PO (20:35)
[2022-10-15] MEDS: Clotrimazole 1 % Cream 15 GM TUBE 1 APPL TOPICAL (20:37)
[2022-10-15] MEDS: Nystatin Powder 15 GM BOTTLE 1 APPL TOPICAL (20:41)
[2022-10-15 20:42] LABS: Glucose, Whole Blood 83 mg/dL (60-115)
[2022-10-16] VITALS (7 sets, daily range): BP systolic 111–135; BP diastolic 65–76; PULSE 87–95; RESP 14–18; TEMP 36.2–37.4; O2SAT 95–100
[2022-10-16 07:04] LABS: Hematocrit 27.8 % (42.0-52.0); Hemoglobin 9.2 g/dl (14.0-18.0)
[2022-10-16 07:24] LABS: Anion Gap 17 (12-20); Blood Urea Nitrogen 96 mg/dL (9-16); Calcium 8.7 mg/dL (8.4-10.2); Carbon Dioxide 21 mmol/L (22-29); Chloride 109 mmol/L (96-108); Creatinine Clr Calc Pharmacy 23.1; Estimated Glomerular Filt Rate 14; Glucose Random 70 mg/dL (60-115); Sodium 143 mmol/L (135-145)
[2022-10-16 08:00] LABS: B Type Natriuretic Peptide 1388 pg/mL (<100)
[2022-10-16 08:07] LABS: Glucose, Whole Blood 71 mg/dL (60-115)
[2022-10-16] MEDS: Ferrous Sulfate 324 MG TABLET.DR PO (08:22)
[2022-10-16] MEDS: calcitrioL 0.25 MCG CAPSULE 0.5 MCG PO (08:22)
[2022-10-16] MEDS: Nystatin Powder 15 GM BOTTLE 1 APPL TOPICAL ×2 (08:22→19:58)
[2022-10-16] MEDS: Clotrimazole 1 % Cream 15 GM TUBE 1 APPL TOPICAL ×2 (08:23→20:01)
[2022-10-16] MEDS: Salmeterol Xinafoate 50 MCG BLST.W.DEV 1 PUFF INHALE (08:56)
[2022-10-16] MEDS: Furosemide 200 MG in 0.9 % Sodium Chloride 80 ML IVCONT (09:35)
[2022-10-16] MEDS: metOLazone 2.5 MG TABLET PO (11:39)
--- NOTE | 2022-10-16 11:40 | PM.PNCARD ---
Subjective Subjective Date of Service: 10/16/22 Principal diagnosis: Decompensated heart failure Interval history: patient responded to diuresis well and is overall -2 L since yesterday. He feels slightly better. Still remain short of breath still has leg swelling and scrotal swelling. No atrial fibrillation. Hematocrit has improved but still not above 30. Has received blood transfusion since yesterday. Review of Systems Constitutional: Reports weakness Cardiovascular: Denies chest pain, Reports leg edema, Denies lightheadedness, Denies palpitations and Reports dyspnea on exertion Respiratory: Reports dyspnea on exertion Genitourinary: Reports scrotal swelling Reports weakness Endocrine: Denies palpitations Physical Exam Vital Signs: Last Vital Signs Temp 98.1 F 10/16/22 08:00 Pulse 95 10/16/22 08:59 Resp 18 10/16/22 08:59 BP 129/68 10/16/22 08:00 Pulse Ox 95 10/16/22 08:00 O2 Del Method Room Air 10/16/22 08:00 BMI result Body Mass Index 40.8 Const General: cooperative, no acute distress, alert and awake Nutritional Appearance: obese Orientation/consciousness: patient oriented x3 Neck Neck: Yes trachea midline, Yes supple and Yes JVD Resp Effort & Inspection: normal respiratory effort Auscultation: no rales, no wheezes and diminished lung sounds Cardio Jugular venous distension: JVD Rate: regular rate Rhythm: regular rhythm Heart sounds: S1 normal heart sound present, S2 normal heart sound present, no click, no gallops, no murmurs and no rubs GI Inspection: Yes distended Auscultation: normal bowel sounds Skin General skin exam: no rashes or lesions noted Neuro General: patient oriented x3 Extrem General: No clubbing, No cyanosis and Yes edema Objective Labs and Meds 10/16/22 06:07 10/16/22 06:07 Lab results: Laboratory Results - last 24 hr 10/14/22 10/15/22 10/15/22 13:23 16:19 20:34 Hgb Hct Sodium Potassium Chloride Carbon Dioxide Anion Gap BUN Creatinine Estim Creat Clear Calc Estimated GFR POC Glucose 96 83 Random Glucose Calcium B-Natriuretic Peptide Blood Type A Negative Antibody Screen NEGATIVE Crossmatch ([facility]) See Detail 10/16/22 10/16/22 10/16/22 06:07 06:07 06:07 Hgb 9.2 L Hct 27.8 L Sodium 143 Potassium 4.0 Chloride 109 H Carbon Dioxide 21 L Anion Gap 17 BUN 96 H Creatinine 4.19 H* Estim Creat Clear Calc 23.1 Estimated GFR 14 POC Glucose Random Glucose 70 Calcium 8.7 B-Natriuretic Peptide 1388 H Blood Type Antibody Screen Crossmatch ([facility]) 10/16/22 07:18 Hgb Hct Sodium Potassium Chloride Carbon Dioxide Anion Gap BUN Creatinine Estim Creat Clear Calc Estimated GFR POC Glucose 71 Random Glucose Calcium B-Natriuretic Peptide Blood Type Antibody Screen Crossmatch ([facility]) Progress Note: A&P Assessment and plan (1) Decompensated heart failure: Status: Acute Assessment and Plan: Decompensated congestive heart failure, improving with more aggressive diuresis. Continue metolazone and Lasix drip. Continue strict intake and output chart. Continue monitor renal function as well as BNP. Out of bed to chair. Incentive spirometry. Overall prognosis is guarded. Will continue transfuse him to hematocrit above 30. overall prognosis remains guarded. (2) Paroxysmal A-fib: Status: Acute Assessment and Plan: Paroxysmal atrial fibrillation, maintains rhythm. Continue rhythm control. Currently off anticoagulation due significant anemia of unclear etiology. Consider further workup for anemia. Eventually if his hematocrit remains stable and he has no further bleeding issues should consider oral anticoagulation therapy. Will continue to follow with you Time Spent With Patient Time: Total time managing care of this patient today ____ minutes. Progress Note: Quality Stroke Does the patient have a stroke diagnosis?: No Procedures Date of Service Date of Service: 10/16/22
[2022-10-16 11:42] LABS: Glucose, Whole Blood 93 mg/dL (60-115)
--- NOTE | 2022-10-16 14:55 | HO.PM.IMPN ---
Subjective Subjective Date of Service: 10/16/22 Interval History: Acute HFpEF exacerbation,ckd 4 Review of Systems sob seems somewhat improving feels nauseated this morning has b/l leg swellin/scrotal swellin Producing urine better Nor edema or discharge. Physical Exam Vital Signs: Vital Signs: Last Vital Signs Temp 98.5 F 10/16/22 11:43 Pulse 87 10/16/22 11:43 Resp 18 10/16/22 11:43 BP 111/75 10/16/22 11:43 Pulse Ox 95 10/16/22 11:43 O2 Del Method Room Air 10/16/22 11:43 BMI result Body Mass Index 40.8 Appearance: Alert.? Oriented X3.? slightly sob improving? cvs: rrr, [id number] . res: clear to auscultation ,no rhonchii or wheezing abd: no rebound or guarding ,nt, bs present. abd : soft ,nd , nt ,bs present : scrotal/penile swellin ext pulses present , no cyanosis . neuro: axo3 , nonfocal Objective Data Active Medications Acetaminophen (Acetaminophen 325 Mg Tablet) 650 mg PO Q6H PRN PRN Reason: Pain, Mild (Pain Scale 1-3) Albuterol Sulfate (Albuterol Sulfate 90 Mcg 8 Gm Inhaler) 2 puff INHALE Q4H PRN PRN Reason: Shortness Of Breath Or Wheezing Calcitriol (Calcitriol 0.25 Mcg Capsule) 0.5 mcg PO DAILY [facility] Last Admin: 10/16/22 08:22 Dose: 0.5 mcg Documented By: ISAAC Clotrimazole (Clotrimazole 1 % Cream 15 Gm Tube) 1 appl TOPICAL BID [facility]; Protocol Last Admin: 10/16/22 08:23 Dose: 1 appl Documented By: ISAAC Docusate Sodium (Docusate Sodium 100 Mg Capsule) 100 mg PO DAILY PRN PRN Reason: Constipation Doxazosin Mesylate (Doxazosin Mesylate 2 Mg Tablet) 4 mg PO BEDTIME [facility] Last Admin: 10/15/22 20:35 Dose: 4 mg Documented By: MAGUE Ferrous Sulfate (Ferrous Sulfate 324 Mg Tablet.Dr) 324 mg PO DAILY [facility] Last Admin: 10/16/22 08:22 Dose: 324 mg Documented By: ISAAC Glucose (Glucose Gel 15 Gm Gel..Gram.) 15 gm PO Q15M PRN; Protocol PRN Reason: per Hypoglycemia Standing Ord. Dextrose (D10) 250 mls @ 750 mls/hr IV Q15M PRN; Protocol PRN Reason: per Hypoglycemia Standing Ord. Furosemide 200 mg/ Sodium (Chloride) 100 mls @ 5 mls/hr IVCONT .Q20H [facility] Last Admin: 10/16/22 09:35 Dose: 10 mg/hr, 5 mls/hr Documented By: ISAAC Insulin Human Lispro (Insulin Lispro 100 Unit/Ml 3 Ml Vial) 0 unit SUBCUT QIDACHS [facility]; Protocol Last Admin: 10/16/22 12:09 Dose: Not Given Documented By: ISAAC Non-Admin Reason: No Insulin Coverage Isosorbide Mononitrate (Isosorbide Mononitrate 30 Mg Tab.Er.24h) 30 mg PO DAILY [facility]; Protocol Last Admin: 10/14/22 09:29 Dose: 30 mg Documented By: HALIE Metolazone (Metolazone 2.5 Mg Tablet) 2.5 mg PO DAILY [facility] Last Admin: 10/16/22 11:39 Dose: 2.5 mg Documented By: ISAAC Metoprolol Tartrate (Metoprolol Tartrate 12.5 Mg Halftab) 12.5 mg PO BID [facility]; Protocol Last Admin: 10/14/22 09:28 Dose: 12.5 mg Documented By: HALIE Nystatin (Nystatin Powder 15 Gm Bottle) 1 appl TOPICAL BID [facility]; Protocol Last Admin: 10/16/22 08:22 Dose: 1 appl Documented By: ISAAC Ondansetron HCl (Ondansetron Hcl 4 Mg/2 Ml Vial) 4 mg IVPUSH Q8H PRN PRN Reason: Nausea and Vomiting Pharmacy Consult (Consult Rx Perform Med Rec) 1 each MISCELLANE ONCE PRN PRN Reason: Consult order Polyethylene Glycol (Polyethylene Glycol 3350 17 Gm Powd.Pack) 17 gm PO DAILY PRN PRN Reason: Constipation Pravastatin Sodium (Pravastatin Sodium 20 Mg Tablet) 20 mg PO BEDTIME [facility] Last Admin: 10/15/22 20:35 Dose: 20 mg Documented By: MAGUE Salmeterol Xinafoate (Salmeterol Xinafoate 50 Mcg Blst.W.Dev) 1 puff INHALE RBID [facility] Last Admin: 10/16/22 08:56 Dose: 1 puff Documented By: PEDRO Sodium Bicarbonate (Sodium Bicarbonate 650 Mg Tablet) 650 mg PO QID PRN PRN Reason: Gastric Reflux Sodium Chloride (0.9 % Sodium Chloride Flush 3 Ml Syringe) 3 ml IVFLUSH QSHIFT [facility] Last Admin: 10/16/22 08:25 Dose: Not Given Documented By: BROB Non-Admin Reason: IV Running Tiotropium [place] (Tiotropium [place] 18 Mcg Cap.W.Dev) 1 puff INHALE RDAILY [facility] Last Admin: 10/16/22 08:56 Dose: 1 puff Documented By: PEDRO Labs 10/16/22 06:07 10/16/22 06:07 Labs: Laboratory Results - last 24 hr 10/15/22 10/15/22 10/16/22 16:19 20:34 06:07 Anion Gap 17 Estim Creat Clear Calc 23.1 Estimated GFR 14 POC Glucose 96 83 Random Glucose 70 Calcium 8.7 B-Natriuretic Peptide 10/16/22 10/16/22 10/16/22 06:07 07:18 11:38 Anion Gap Estim Creat Clear Calc Estimated GFR POC Glucose 71 93 Random Glucose Calcium B-Natriuretic Peptide 1388 H Assessment and Plan (1) Paroxysmal A-fib: Status: Acute (2) Penile swelling: Status: Acute (3) Urinary retention with incomplete bladder emptying: Status: Acute (4) Decompensated heart failure: Status: Acute Plan 67-year-old male with a PMH significant for?CKD stage 4 not on dialysis, [id number] diabetes type 2, COPD, HTN, HLD, ZEYAD, and AFib on Eliquis who presents to the ED with?worsening SOB with exertion for the past week. Pt will be admitted to the hospital treatment and further evaluation of acute CHF exacerbation. Acute HFpEF exacerbation,boderline bP Patient with SOB, 12 lb weight gain in past week, increased lower leg and abdominal edema, elevated BNP, CXR with evidence of pulmonary edema Follow lytes, mg, I/O( we will place garcia) Daily weights, low-salt diet Last echocardiogram on 09/25/2022 found low normal LV systolic function with mild LVH and at least grade 2 diastolic dysfunction producing urine but difficult to collect in the urinal and also difficult to place urine a get tighter because of significant penile? swelling he is still sob and lower ext swellin, bnp trending up Cardiology consult-adjusted? lasix, metolazone , moniter bnp, i/o strict, hold bp meds:amlodipine /bb/imdure , if needed will add midodrine. Monitor on telemetry Hyperphosphatemia Patient's phosphorus 5.6,improving, likely secondary to patient's CKD Low phosphorus diet Follow phosphorus levels CKD stage 4 Patient creatinine 4.15, estimated GFR 15 Stable, at baseline Nephrology consult- may need hd . Paroxysmal atrial fibrillation Continue metoprolol Eliquis being held by Cardiology d/t bruising from pacemaker implantation Non insulin-dependent diabetes type 2, diet-controlled Patient not on home meds Cover with sliding scale insulin HTN Continue amlodipine COPD Not in acute exacerbation Continue home inhalers woserning anemia of aocd(ckd) given 1 prbc yesterday-added another prbc -keep hct around 30. DNI inpatient need:acute HFpEF exacerbation with IV diuretics and specialist consults, electrolytic monitering Time Spent With Patient Time: Total time managing care of this patient today ____ minutes. Quality Stroke Does the patient have a stroke diagnosis?: No VTE Prior VTE?: No VTE Risk Level:: Medical - moderate - high VTE Device Contraindication: Treatment Not Indicated VTE Drug Contraindication: N/A - Med Ordered
[2022-10-16 16:45] LABS: Glucose, Whole Blood 107 mg/dL (60-115)
[2022-10-16 19:47] LABS: Glucose, Whole Blood 113 mg/dL (60-115)
[2022-10-16] MEDS: Doxazosin Mesylate 2 MG TABLET 4 MG PO (19:57)
[2022-10-16] MEDS: Pravastatin Sodium 20 MG TABLET PO (19:57)
[2022-10-16] MEDS: 0.9 % Sodium Chloride Flush 3 ML SYRINGE IVFLUSH (19:59)
--- NOTE | 2022-10-16 20:56 | PM.PNNEP ---
Subjective Subjective Date of Service: 10/27/22 Principal diagnosis: Decompensated heart failure Interval history: Acute HFpEF exacerbation,ckd 4 On Lasix drip Physical Exam Vital Signs: Vital Signs: Last Vital Signs Temp 97.3 F 10/16/22 19:15 Pulse 94 10/16/22 19:15 Resp 15 10/16/22 19:15 BP 124/76 10/16/22 19:15 Pulse Ox 100 10/16/22 19:15 O2 Del Method Room Air 10/16/22 19:15 BMI result Body Mass Index 40.8 Const: General: cooperative, no acute distress, alert, awake and in distress mild and respiratory Nutritional Appearance: well nourished and obese Orientation/consciousness: patient oriented x3 HEENT: Head: Yes normocephalic and Yes atraumatic Throat: Yes posterior oropharynx normal Eyes: Eyelids: Yes eyelids normal Conjunctivae: conjunctivae normal Sclerae: sclerae normal Corneas: corneas normal Pupils: Equal, round and reactive pupils present EOM: EOMs intact bilaterally Neck: Neck: Yes full ROM, Yes trachea midline, Yes supple and Yes JVD Resp: Other: Diminished without adventitious breath sounds Effort & Inspection: normal respiratory effort, able to speak in complete sentences, no audible wheezes and not labored Auscultation: clear to auscultation bilaterally, no crackles, no rales, no rhonchi, no wheezes and diminished lung sounds Cardio: Jugular venous distension: JVD Rate: regular rate Rhythm: regular rhythm Heart sounds: S1 normal heart sound present, S2 normal heart sound present, no click, no gallops, no murmurs and no rubs GI: Inspection: Yes Abdominal wall edema and Yes distended Palpation (GI): Soft to palpation, nontender and no guarding Auscultation: normal bowel sounds and normoactive bowel sounds Skin: Other: Superficial approximately 3 cm wound to the right lower leg. No surrounding erythema or drainage from the wound General skin exam: no rashes or lesions noted and elasticity normal Neuro: General: patient oriented x3 Cranial nerves: Yes CN's II-XII intact bilaterally, Yes Equal, round and reactive pupils present and Yes Bilaterally intact EOM present Cognition (Neuro): normal cognition Extrem: Other: Moving all extremities well without any obvious deformities General: No clubbing, No cyanosis and Yes edema Objective Data Labs 10/16/22 06:07 05/04/23 06:07 Labs: Laboratory Results - last 24 hr 10/16/22 10/16/22 10/16/22 06:07 06:07 06:07 Hgb 9.2 L Hct 27.8 L Sodium 143 Potassium 4.0 Chloride 109 H Carbon Dioxide 21 L Anion Gap 17 BUN 96 H Creatinine 4.19 H* Estim Creat Clear Calc 23.1 Estimated GFR 14 POC Glucose Random Glucose 70 Calcium 8.7 B-Natriuretic Peptide 1388 H 10/16/22 10/16/22 10/16/22 07:18 11:38 15:59 Hgb Hct Sodium Potassium Chloride Carbon Dioxide Anion Gap BUN Creatinine Estim Creat Clear Calc Estimated GFR POC Glucose 71 93 107 Random Glucose Calcium B-Natriuretic Peptide 10/16/22 19:40 Hgb Hct Sodium Potassium Chloride Carbon Dioxide Anion Gap BUN Creatinine Estim Creat Clear Calc Estimated GFR POC Glucose 113 Random Glucose Calcium B-Natriuretic Peptide Microbiology Microbiology Results: Microbiology 10/14/22 Unknown Urine clean catch - Urine keys top Urine Culture - Final Procedures Date of Service Date of Service: 10/16/22 Assessment & Plan Assessment and plan (1) Congestive heart failure: Status: Acute (2) Shortness of breath: Status: Acute (3) CKD (chronic kidney disease) stage 4, GFR 15-29 ml/min: Status: Acute Plan 67-year-old man with advanced renal failure approaching ESRD admitted with fluid overload. Severe anemia. Hyperchloremic metabolic acidosis. Congestive heart failure. Recommendations Keep on IV diuretics to keep him on a negative fluid balance. Lasix drip at 10 mg an hour. if he fails to respond to IV diuretics he may require hemodialysis. I have discussed this with him and he is agreeable. scheduled permcath for Thursday - HOLD SQ Heparin on 10/16 DDAVP x 1 dose Discussed with team. Time Spent With Patient Time: Total time managing care of this patient today ____ minutes. Progress Note: Quality Stroke Does the patient have a stroke diagnosis?: No
[2022-10-17] VITALS (9 sets, daily range): BP systolic 115–144; BP diastolic 58–81; PULSE 66–97; RESP 14–20; TEMP 36–36.6; O2SAT 94–100
[2022-10-17] MEDS: Furosemide 200 MG in 0.9 % Sodium Chloride 80 ML IVCONT (05:15)
[2022-10-17 07:10] LABS: Hematocrit 27.9 % (42.0-52.0); Hemoglobin 9.2 g/dl (14.0-18.0)
[2022-10-17 07:41] LABS: B Type Natriuretic Peptide 1645 pg/mL (<100)
[2022-10-17] MEDS: Salmeterol Xinafoate 50 MCG BLST.W.DEV 1 PUFF INHALE ×2 (07:42→20:08)
[2022-10-17] MEDS: Desmopressin Acetate 20 MCG in 0.9 % Sodium Chloride 50 ML 100 MCG IV (07:55)
[2022-10-17 08:00] LABS: Anion Gap 16 (12-20); Blood Urea Nitrogen 103 mg/dL (9-16); Carbon Dioxide 22 mmol/L (22-29); Chloride 109 mmol/L (96-108); Creatinine Clr Calc Pharmacy 23.4; Estimated Glomerular Filt Rate 14; Glucose Random 74 mg/dL (60-115); Potassium 3.6 mmol/L (3.3-5.1); Sodium 143 mmol/L (135-145)
[2022-10-17 08:01] LABS: Phosphorus 5.8 mg/dL (2.7-4.5)
[2022-10-17] MEDS: 0.9 % Sodium Chloride Flush 3 ML SYRINGE IVFLUSH (08:02)
[2022-10-17] MEDS: Clotrimazole 1 % Cream 15 GM TUBE 1 APPL TOPICAL ×2 (08:03→20:09)
[2022-10-17 08:05] LABS: Glucose, Whole Blood 75 mg/dL (60-115)
[2022-10-17] MEDS: Nystatin Powder 15 GM BOTTLE 1 APPL TOPICAL ×2 (08:09→20:09)
[2022-10-17] MEDS: Ferrous Sulfate 324 MG TABLET.DR PO (08:12)
[2022-10-17] MEDS: calcitrioL 0.25 MCG CAPSULE 0.5 MCG PO (08:12)
[2022-10-17] MEDS: metOLazone 2.5 MG TABLET PO (08:12)
--- NOTE | 2022-10-17 10:37 | MHC.CM.PN ---
Per ROUNDS discussion, Patient is still in Fluid Overload and not yet medically cleared for dc. CM will follow.
--- NOTE | 2022-10-17 10:56 | P.PNCA_ITS ---
Subjective Subjective Date of Service: 10/17/22 Principal diagnosis: Decompensated heart failure Interval history: patient has diuresed very well overnight. Overall negative balance of 3 L since yesterday. BUN creatinine is stable. Plan for PermCath placement today. Review of Systems Review of Systems Yes all other systems are reviewed and are negative Physical Exam Vital Signs: Last Vital Signs Temp 97.4 F 10/17/22 08:26 Pulse 84 10/17/22 08:26 Resp 20 10/17/22 08:26 BP 115/70 10/17/22 08:26 Pulse Ox 94 10/17/22 08:26 O2 Del Method Room Air 10/17/22 08:26 BMI result Body Mass Index 40.8 Const General: cooperative, no acute distress, alert and awake Nutritional Appearance: obese Orientation/consciousness: patient oriented x3 Neck Neck: Yes trachea midline, Yes supple and Yes JVD Resp Effort & Inspection: normal respiratory effort Auscultation: no rales, no wheezes and diminished lung sounds Cardio Jugular venous distension: JVD Rate: regular rate Rhythm: regular rhythm Heart sounds: S1 normal heart sound present, S2 normal heart sound present, no click, no gallops, no murmurs and no rubs GI Inspection: Yes distended Auscultation: normal bowel sounds Skin General skin exam: no rashes or lesions noted Neuro General: patient oriented x3 Extrem General: No clubbing, No cyanosis and Yes edema Objective Labs and Meds 10/17/22 06:13 10/17/22 06:13 Lab results: Laboratory Results - last 24 hr 10/16/22 10/16/22 10/16/22 11:38 15:59 19:40 Hgb Hct Sodium Potassium Chloride Carbon Dioxide Anion Gap BUN Creatinine Estim Creat Clear Calc Estimated GFR POC Glucose 93 107 113 Random Glucose Calcium Phosphorus B-Natriuretic Peptide 10/17/22 10/17/22 10/17/22 06:13 06:13 06:13 Hgb 9.2 L Hct 27.9 L Sodium 143 Potassium 3.6 Chloride 109 H Carbon Dioxide 22 Anion Gap 16 BUN 103 H Creatinine 4.14 H* Estim Creat Clear Calc 23.4 Estimated GFR 14 POC Glucose Random Glucose 74 Calcium 9.0 Phosphorus 5.8 H B-Natriuretic Peptide 1645 H 10/17/22 07:58 Hgb Hct Sodium Potassium Chloride Carbon Dioxide Anion Gap BUN Creatinine Estim Creat Clear Calc Estimated GFR POC Glucose 75 Random Glucose Calcium Phosphorus B-Natriuretic Peptide Progress Note: A&P Assessment and plan (1) Decompensated heart failure: Status: Acute Assessment and Plan: Decompensated heart failure with advanced kidney disease with comorbidities of poor functional status, advanced kidney disease, severe anemia. Continue IV diuresis. Add Diamox to his regimen. Plan for PermCath placement and if he has poor response plan for dialysis in the future. Can give additional dose of metolazone as well today. Continue Lasix drip. Strict intake and output chart needs to be pursued. Continue monitor renal function. Increasing BNP most likely due to poor renal clearance. Clinically gradually improving. (2) Pacemaker: Status: Acute Assessment and Plan: Cardiac pacemaker in-situ, working well. Will monitor full disclosure cardiac telemetry. (3) Paroxysmal A-fib: Status: Acute Assessment and Plan: Paroxysmal atrial fibrillation without any clinical recurrence. No further e vidence of bleeding or drop in hematocrit. Consider re-initiation oral anticoagulation therapy if there are no other obvious contraindications. Consider Eliquis 2.5 mg b.i.d. Will follow with you Time Spent With Patient Time: Total time managing care of this patient today ____ minutes. Progress Note: Quality Stroke Does the patient have a stroke diagnosis?: No Procedures Date of Service Date of Service: 10/17/22
[2022-10-17] MEDS: Lidocaine HCl 1 % MPF 5 ML VIAL 6 ML SUBCUT (11:24)
[2022-10-17] MEDS: Lidocaine HCl 1% PF/Epi 1:200,000 30 ML VIAL 10 ML SUBCUT (11:25)
[2022-10-17] MEDS: Heparin Sodium,Porcine 1,000 UNIT/ML VIAL 3200 UNIT IV (11:27)
[2022-10-17] MEDS: acetaZOLAMIDE 250 MG TABLET PO ×2 (12:33→20:09)
--- NOTE | 2022-10-17 15:44 | HO.PM.IMPN ---
Subjective Subjective Date of Service: 10/17/22 Interval History: Acute HFpEF exacerbation,ckd 4 Review of Systems sob seems slightly improvin, still swelling leg/scrotum/upper thigh Physical Exam Vital Signs: Vital Signs: Last Vital Signs Temp 97.1 F 10/17/22 15:09 Pulse 83 10/17/22 15:09 Resp 14 10/17/22 15:09 BP 118/58 L 10/17/22 15:09 Pulse Ox 99 10/17/22 15:09 O2 Del Method Room Air 10/17/22 15:09 BMI result Body Mass Index 40.8 Appearance: Alert.? Oriented X3.? slightly sob improving? cvs: rrr, [id number] . res: clear to auscultation ,no rhonchii or wheezing abd: no rebound or guarding ,nt, bs present. abd : soft ,nd , nt ,bs present : scrotal/penile swellin,leg sweling/thigh swelelin-overall anacarca-somewhat improving ext pulses present , no cyanosis . neuro: axo3 , nonfocal Objective Data Active Medications Acetaminophen (Acetaminophen 325 Mg Tablet) 650 mg PO Q6H PRN PRN Reason: Pain, Mild (Pain Scale 1-3) Acetazolamide (Acetazolamide 250 Mg Tablet) 250 mg PO BID [facility] Last Admin: 10/17/22 12:33 Dose: 250 mg Documented By: ISAAC Albuterol Sulfate (Albuterol Sulfate 90 Mcg 8 Gm Inhaler) 2 puff INHALE Q4H PRN PRN Reason: Shortness Of Breath Or Wheezing Calcitriol (Calcitriol 0.25 Mcg Capsule) 0.5 mcg PO DAILY [facility] Last Admin: 10/17/22 08:12 Dose: 0.5 mcg Documented By: ISAAC Clotrimazole (Clotrimazole 1 % Cream 15 Gm Tube) 1 appl TOPICAL BID [facility]; Protocol Last Admin: 10/17/22 08:03 Dose: 1 appl Documented By: ISAAC Docusate Sodium (Docusate Sodium 100 Mg Capsule) 100 mg PO DAILY PRN PRN Reason: Constipation Doxazosin Mesylate (Doxazosin Mesylate 2 Mg Tablet) 4 mg PO BEDTIME [facility] Last Admin: 10/16/22 19:57 Dose: 4 mg Documented By: TONE Ferrous Sulfate (Ferrous Sulfate 324 Mg Tablet.Dr) 324 mg PO DAILY [facility] Last Admin: 10/17/22 08:12 Dose: 324 mg Documented By: ISAAC Glucose (Glucose Gel 15 Gm Gel..Gram.) 15 gm PO Q15M PRN; Protocol PRN Reason: per Hypoglycemia Standing Ord. Dextrose (D10) 250 mls @ 750 mls/hr IV Q15M PRN; Protocol PRN Reason: per Hypoglycemia Standing Ord. Furosemide 200 mg/ Sodium (Chloride) 100 mls @ 5 mls/hr IVCONT .Q20H [facility] Last Admin: 10/17/22 05:15 Dose: 10 mg/hr, 5 mls/hr Documented By: TONE Insulin Human Lispro (Insulin Lispro 100 Unit/Ml 3 Ml Vial) 0 unit SUBCUT QIDACHS [facility]; Protocol Last Admin: 10/17/22 12:28 Dose: Not Given Documented By: ISAAC Non-Admin Reason: No Insulin Coverage Isosorbide Mononitrate (Isosorbide Mononitrate 30 Mg Tab.Er.24h) 30 mg PO DAILY [facility]; Protocol Last Admin: 10/14/22 09:29 Dose: 30 mg Documented By: HALIE Metolazone (Metolazone 2.5 Mg Tablet) 2.5 mg PO DAILY [facility] Last Admin: 10/17/22 08:12 Dose: 2.5 mg Documented By: ISAAC Metoprolol Tartrate (Metoprolol Tartrate 12.5 Mg Halftab) 12.5 mg PO BID [facility]; Protocol Last Admin: 10/14/22 09:28 Dose: 12.5 mg Documented By: HALIE Nystatin (Nystatin Powder 15 Gm Bottle) 1 appl TOPICAL BID [facility]; Protocol Last Admin: 10/17/22 08:09 Dose: 1 appl Documented By: ISAAC Ondansetron HCl (Ondansetron Hcl 4 Mg/2 Ml Vial) 4 mg IVPUSH Q8H PRN PRN Reason: Nausea and Vomiting Pharmacy Consult (Consult Rx Perform Med Rec) 1 each MISCELLANE ONCE PRN PRN Reason: Consult order Polyethylene Glycol (Polyethylene Glycol 3350 17 Gm Powd.Pack) 17 gm PO DAILY PRN PRN Reason: Constipation Pravastatin Sodium (Pravastatin Sodium 20 Mg Tablet) 20 mg PO BEDTIME [facility] Last Admin: 10/16/22 19:57 Dose: 20 mg Documented By: TONE Salmeterol Xinafoate (Salmeterol Xinafoate 50 Mcg Blst.W.Dev) 1 puff INHALE RBID [facility] Last Admin: 10/17/22 07:42 Dose: 1 puff Documented By: AL Sodium Bicarbonate (Sodium Bicarbonate 650 Mg Tablet) 650 mg PO QID PRN PRN Reason: Gastric Reflux Sodium Chloride (0.9 % Sodium Chloride Flush 3 Ml Syringe) 3 ml IVFLUSH QSHIFT [facility] Last Admin: 10/17/22 15:31 Dose: Not Given Documented By: BROB Non-Admin Reason: IV Running Tiotropium [place] (Tiotropium [place] 18 Mcg Cap.W.Dev) 1 puff INHALE RDAILY [facility] Last Admin: 10/17/22 07:42 Dose: 1 puff Documented By: AL Labs 10/17/22 06:13 10/17/22 06:13 Labs: Laboratory Results - last 24 hr 10/16/22 10/16/22 10/17/22 15:59 19:40 06:13 Anion Gap 16 Estim Creat Clear Calc 23.4 Estimated GFR 14 POC Glucose 107 113 Random Glucose 74 Calcium 9.0 Phosphorus 5.8 H B-Natriuretic Peptide 10/17/22 10/17/22 06:13 07:58 Anion Gap Estim Creat Clear Calc Estimated GFR POC Glucose 75 Random Glucose Calcium Phosphorus B-Natriuretic Peptide 1645 H Assessment and Plan (1) Paroxysmal A-fib: Status: Acute (2) Decompensated heart failure: Status: Acute (3) CKD (chronic kidney disease) stage 4, GFR 15-29 ml/min: Status: Acute Plan 67-year-old male with a PMH significant for?CKD stage 4 not on dialysis, [id number] diabetes type 2, COPD, HTN, HLD, ZEYAD, and AFib on Eliquis who presents to the ED with?worsening SOB with exertion for the past week. Pt will be admitted to the hospital treatment and further evaluation of acute CHF exacerbation. Acute HFpEF exacerbation,boderline bP Patient with SOB, 12 lb weight gain in past week, increased lower leg and abdominal edema, elevated BNP, CXR with evidence of pulmonary edema Follow lytes, mg, I/O( we will place garcia) neg 5 liters Daily weights, low-salt diet Last echocardiogram on 09/25/2022 found low normal LV systolic function with mild LVH and at least grade 2 diastolic dysfunction producing urine but difficult to collect in the urinal and also difficult to place urine a get tighter because of significant penile? swelling sob improving, overall sweling/lower ext swellin slightly improving, bnp trending up Cardiology consult-adjusted? lasix, metolazone , moniter bnp, i/o strict, hold bp meds:amlodipine /bb/imdure , if needed will add midodrine. Monitor on telemetry Hyperphosphatemia Patient's phosphorus flactuating 5.8,improving, likely secondary to patient's CKD Low phosphorus diet Follow phosphorus levels CKD stage 4 Patient creatinine 4.14, estimated GFR 15 Stable, at baseline Nephrology consult- may need hd/permacath . Paroxysmal atrial fibrillation Continue metoprolol Eliquis being held by Cardiology d/t bruising from pacemaker implantation Non insulin-dependent diabetes type 2, diet-controlled Patient not on home meds Cover with sliding scale insulin HTN Continue amlodipine COPD Not in acute exacerbation Continue home inhalers woserning anemia of aocd(ckd) given 1 prbc yesterday-added another prbc -keep hct around 30. DNI inpatient need:acute HFpEF exacerbation with IV diuretics and specialist consults, electrolytic monitering Time Spent With Patient Time: Total time managing care of this patient today ____ minutes. Quality Stroke Does the patient have a stroke diagnosis?: No VTE Prior VTE?: No VTE Risk Level:: Medical - moderate - high VTE Device Contraindication: Treatment Not Indicated VTE Drug Contraindication: N/A - Med Ordered
[2022-10-17 16:16] LABS: Glucose, Whole Blood 123 mg/dL (60-115)
[2022-10-17 20:09] LABS: Glucose, Whole Blood 107 mg/dL (60-115)
[2022-10-17] MEDS: Doxazosin Mesylate 2 MG TABLET 4 MG PO (20:09)
[2022-10-17] MEDS: Pravastatin Sodium 20 MG TABLET PO (20:09)
--- NOTE | 2022-10-17 20:47 | PM.PNNEP ---
Subjective Subjective Date of Service: 10/17/22 Principal diagnosis: Decompensated heart failure Interval history: Pt with a PC Acute HFpEF exacerbation,ckd 4 Physical Exam Vital Signs: Vital Signs: Last Vital Signs Temp 96.8 F 10/17/22 19:10 Pulse 83 10/17/22 20:10 Resp 18 10/17/22 20:10 BP 128/68 10/17/22 19:10 Pulse Ox 100 10/17/22 19:10 O2 Del Method Room Air 10/17/22 19:10 BMI result Body Mass Index 40.8 Appearance: Alert.? Oriented X3.? slightly sob improving? cvs: rrr, [id number] . res: clear to auscultation ,no rhonchii or wheezing abd: no rebound or guarding ,nt, bs present. abd : soft ,nd , nt ,bs present : scrotal/penile swellin,leg sweling/thigh swelelin-overall anacarca-somewhat improving ext pulses present , no cyanosis . neuro: axo3 , nonfocal Objective Data Labs 10/17/22 06:13 10/17/22 06:13 Labs: Laboratory Results - last 24 hr 10/17/22 10/17/22 10/17/22 06:13 06:13 06:13 Hgb 9.2 L Hct 27.9 L Sodium 143 Potassium 3.6 Chloride 109 H Carbon Dioxide 22 Anion Gap 16 BUN 103 H Creatinine 4.14 H* Estim Creat Clear Calc 23.4 Estimated GFR 14 POC Glucose Random Glucose 74 Calcium 9.0 Phosphorus 5.8 H B-Natriuretic Peptide 1645 H 10/17/22 10/17/22 10/17/22 07:58 16:02 20:06 Hgb Hct Sodium Potassium Chloride Carbon Dioxide Anion Gap BUN Creatinine Estim Creat Clear Calc Estimated GFR POC Glucose 75 123 H 107 Random Glucose Calcium Phosphorus B-Natriuretic Peptide Microbiology Microbiology Results: Microbiology 10/14/22 Unknown Urine clean catch - Urine keys top Urine Culture - Final Procedures Date of Service Date of Service: 10/17/22 Assessment & Plan Assessment and plan (1) Congestive heart failure: Status: Acute (2) Shortness of breath: Status: Acute (3) CKD (chronic kidney disease) stage 4, GFR 15-29 ml/min: Status: Acute Plan 67-year-old man with advanced renal failure approaching ESRD admitted with fluid overload. Severe anemia. Hyperchloremic metabolic acidosis. Congestive heart failure. Recommendations Continue IV diuretics to keep him on a negative fluid balance. Lasix drip at 10 mg an hour. Will watch and consider hemodialysis. d/w Pt has a PC - Discussed with team. Time Spent With Patient Time: Total time managing care of this patient today ____ minutes. Progress Note: Quality Stroke Does the patient have a stroke diagnosis?: No
[2022-10-18] VITALS (9 sets, daily range): BP systolic 114–143; BP diastolic 62–77; PULSE 74–88; RESP 16–20; TEMP 36.2–36.7; O2SAT 95–100
[2022-10-18] MEDS: Furosemide 200 MG in 0.9 % Sodium Chloride 80 ML IVCONT ×2 (01:30→22:23)
[2022-10-18 06:42] LABS: Hematocrit 27.7 % (42.0-52.0); Hemoglobin 8.9 g/dl (14.0-18.0)
[2022-10-18 07:05] LABS: Anion Gap 16 (12-20); Blood Urea Nitrogen 101 mg/dL (9-16); Calcium 8.7 mg/dL (8.4-10.2); Carbon Dioxide 24 mmol/L (22-29); Chloride 107 mmol/L (96-108); Creatinine Clr Calc Pharmacy 23.6; Estimated Glomerular Filt Rate 15; Glucose Random 72 mg/dL (60-115); Potassium 3.6 mmol/L (3.3-5.1); Sodium 143 mmol/L (135-145)
[2022-10-18 07:40] LABS: Glucose, Whole Blood 73 mg/dL (60-115)
[2022-10-18 08:07] LABS: B Type Natriuretic Peptide 1474 pg/mL (<100)
[2022-10-18] MEDS: Salmeterol Xinafoate 50 MCG BLST.W.DEV 1 PUFF INHALE ×2 (08:18→20:13)
[2022-10-18] MEDS: calcitrioL 0.25 MCG CAPSULE 0.5 MCG PO (08:25)
[2022-10-18] MEDS: 0.9 % Sodium Chloride Flush 3 ML SYRINGE IVFLUSH (08:26)
[2022-10-18] MEDS: acetaZOLAMIDE 250 MG TABLET PO ×2 (08:26→20:24)
[2022-10-18] MEDS: Ferrous Sulfate 324 MG TABLET.DR PO (08:26)
[2022-10-18] MEDS: metOLazone 2.5 MG TABLET PO (08:26)
[2022-10-18] MEDS: Nystatin Powder 15 GM BOTTLE 1 APPL TOPICAL ×2 (08:27→20:25)
[2022-10-18] MEDS: Clotrimazole 1 % Cream 15 GM TUBE 1 APPL TOPICAL ×2 (08:27→20:25)
--- NOTE | 2022-10-18 11:10 | P.PNIM_ITS ---
Subjective Subjective Date of Service: 10/18/22 Interval History: Acute HFpEF exacerbation,ckd 4 Review of Systems swelling leg/scrotum/upper thigh little improvin denies any chest pain or sob Physical Exam Vital Signs: Vital Signs: Last Vital Signs Temp 97.7 F 10/18/22 07:35 Pulse 88 10/18/22 08:19 Resp 18 10/18/22 08:19 BP 121/77 10/18/22 07:35 Pulse Ox 98 10/18/22 07:35 O2 Del Method Room Air 10/18/22 07:35 BMI result Body Mass Index 40.8 Appearance: Alert.? Oriented X3.? slightly sob improving? cvs: rrr, [id number] . res: clear to auscultation ,no rhonchii or wheezing abd: no rebound or guarding ,nt, bs present. abd : soft ,nd , nt ,bs present : scrotal/penile swellin,leg sweling/thigh swelelin-overall anacarca-somewhat improving has garcia ext pulses present , no cyanosis . neuro: axo3 , nonfocal Objective Data Active Medications Acetaminophen (Acetaminophen 325 Mg Tablet) 650 mg PO Q6H PRN PRN Reason: Pain, Mild (Pain Scale 1-3) Acetazolamide (Acetazolamide 250 Mg Tablet) 250 mg PO BID [facility] Last Admin: 10/18/22 08:26 Dose: 250 mg Documented By: AUNDREA Albuterol Sulfate (Albuterol Sulfate 90 Mcg 8 Gm Inhaler) 2 puff INHALE Q4H PRN PRN Reason: Shortness Of Breath Or Wheezing Calcitriol (Calcitriol 0.25 Mcg Capsule) 0.5 mcg PO DAILY [facility] Last Admin: 10/18/22 08:25 Dose: 0.5 mcg Documented By: AUNDREA Clotrimazole (Clotrimazole 1 % Cream 15 Gm Tube) 1 appl TOPICAL BID [facility]; Protocol Last Admin: 10/18/22 08:27 Dose: 1 appl Documented By: AUNDREA Docusate Sodium (Docusate Sodium 100 Mg Capsule) 100 mg PO DAILY PRN PRN Reason: Constipation Doxazosin Mesylate (Doxazosin Mesylate 2 Mg Tablet) 4 mg PO BEDTIME [facility] Last Admin: 10/17/22 20:09 Dose: 4 mg Documented By: JUAN JOSÉ Ferrous Sulfate (Ferrous Sulfate 324 Mg Tablet.Dr) 324 mg PO DAILY [facility] Last Admin: 10/18/22 08:26 Dose: 324 mg Documented By: AUNDREA Glucose (Glucose Gel 15 Gm Gel..Gram.) 15 gm PO Q15M PRN; Protocol PRN Reason: per Hypoglycemia Standing Ord. Dextrose (D10) 250 mls @ 750 mls/hr IV Q15M PRN; Protocol PRN Reason: per Hypoglycemia Standing Ord. Furosemide 200 mg/ Sodium (Chloride) 100 mls @ 5 mls/hr IVCONT .Q20H [facility] Last Admin: 10/18/22 01:30 Dose: 10 mg/hr, 5 mls/hr Documented By: JUAN JOSÉ Insulin Human Lispro (Insulin Lispro 100 Unit/Ml 3 Ml Vial) 0 unit SUBCUT QIDACHS [facility]; Protocol Last Admin: 10/18/22 07:52 Dose: Not Given Documented By: AUNDREA Non-Admin Reason: No Insulin Coverage Isosorbide Mononitrate (Isosorbide Mononitrate 30 Mg Tab.Er.24h) 30 mg PO DAILY [facility]; Protocol Last Admin: 10/14/22 09:29 Dose: 30 mg Documented By: HALIE Lactic Acid (Ammonium Lactate 12 % Cream 140 Gm Tube) 1 appl TOPICAL BID PRN; Protocol PRN Reason: Dry Skin Metolazone (Metolazone 2.5 Mg Tablet) 2.5 mg PO DAILY [facility] Last Admin: 10/18/22 08:26 Dose: 2.5 mg Documented By: AUNDREA Metoprolol Tartrate (Metoprolol Tartrate 12.5 Mg Halftab) 12.5 mg PO BID [facility]; Protocol Last Admin: 10/14/22 09:28 Dose: 12.5 mg Documented By: HALIE Nystatin (Nystatin Powder 15 Gm Bottle) 1 appl TOPICAL BID [facility]; Protocol Last Admin: 10/18/22 08:27 Dose: 1 appl Documented By: AUNDREA Ondansetron HCl (Ondansetron Hcl 4 Mg/2 Ml Vial) 4 mg IVPUSH Q8H PRN PRN Reason: Nausea and Vomiting Pharmacy Consult (Consult Rx Perform Med Rec) 1 each MISCELLANE ONCE PRN PRN Reason: Consult order Polyethylene Glycol (Polyethylene Glycol 3350 17 Gm Powd.Pack) 17 gm PO DAILY PRN PRN Reason: Constipation Pravastatin Sodium (Pravastatin Sodium 20 Mg Tablet) 20 mg PO BEDTIME [facility] Last Admin: 10/17/22 20:09 Dose: 20 mg Documented By: JUAN JOSÉ Salmeterol Xinafoate (Salmeterol Xinafoate 50 Mcg Blst.W.Dev) 1 puff INHALE RBID [facility] Last Admin: 10/18/22 08:18 Dose: 1 puff Documented By: PAT Sodium Bicarbonate (Sodium Bicarbonate 650 Mg Tablet) 650 mg PO QID PRN PRN Reason: Gastric Reflux Sodium Chloride (0.9 % Sodium Chloride Flush 3 Ml Syringe) 3 ml IVFLUSH QSHIFT [facility] Last Admin: 10/18/22 08:26 Dose: 3 ml Documented By: AUNDREA Tiotropium [place] (Tiotropium [place] 18 Mcg Cap.W.Dev) 1 puff INHALE RDAILY [facility] Last Admin: 10/18/22 08:19 Dose: 1 puff Documented By: PAT Labs 10/18/22 06:32 10/18/22 06:32 Labs: Laboratory Results - last 24 hr 10/17/22 10/17/22 10/18/22 16:02 20:06 06:32 Anion Gap 16 Estim Creat Clear Calc 23.6 Estimated GFR 15 POC Glucose 123 H 107 Random Glucose 72 Calcium 8.7 B-Natriuretic Peptide 10/18/22 10/18/22 06:32 07:32 Anion Gap Estim Creat Clear Calc Estimated GFR POC Glucose 73 Random Glucose Calcium B-Natriuretic Peptide 1474 H Assessment and Plan (1) Paroxysmal A-fib: Status: Acute (2) Decompensated heart failure: Status: Acute (3) CKD (chronic kidney disease) stage 4, GFR 15-29 ml/min: Status: Acute Plan 67-year-old male with a PMH significant for?CKD stage 4 not on dialysis, [id number] diabetes type 2, COPD, HTN, HLD, ZEYAD, and AFib on Eliquis who presents to the ED with?worsening SOB with exertion for the past week. Pt will be admitted to the hospital treatment and further evaluation of acute CHF exacerbation. Acute HFpEF exacerbation,boderline bP Patient with SOB, 12 lb weight gain in past week, increased lower leg and abdominal edema, elevated BNP, CXR with evidence of pulmonary edema Follow lytes, mg, I/O( we will place garcia) neg 9 liters Daily weights(today weight 133kg), low-salt diet Last echocardiogram on 09/25/2022 found low normal LV systolic function with mild LVH and at least grade 2 diastolic dysfunction producing urine but difficult to collect in the urinal and also difficult to place urine a get tighter because of significant penile? swelling sob improving, overall sweling/lower ext swellin slightly improving, bnp trending up Cardiology consult-adjusted? lasix, added acetazolamide , bnp improving, i/o strict, hold bp meds:amlodipine /bb/imdure . Monitor on telemetry Hyperphosphatemia Patient's phosphorus flactuating 5.8,improving, likely secondary to patient's CKD Low phosphorus diet Follow phosphorus levels CKD stage 4 Patient creatinine 4.14, estimated GFR 15 Stable, at baseline Nephrology consult- may need hd/permacath . Paroxysmal atrial fibrillation Continue metoprolol Eliquis added back ,moniter any brusing Non insulin-dependent diabetes type 2, diet-controlled Patient not on home meds Cover with sliding scale insulin HTN Continue amlodipine COPD Not in acute exacerbation Continue home inhalers woserning anemia of aocd(ckd) given 2 prbc h/h 03/11.7 DNI inpatient need:acute HFpEF exacerbation , still has fluid overload-with IV diuretics and specialist consults, electrolytic monitering Time Spent With Patient Time: Total time managing care of this patient today ____ minutes. Quality Stroke Does the patient have a stroke diagnosis?: No VTE Prior VTE?: No VTE Risk Level:: Medical - moderate - high VTE Device Contraindication: Treatment Not Indicated VTE Drug Contraindication: N/A - Med Ordered
[2022-10-18 11:17] LABS: Glucose, Whole Blood 121 mg/dL (60-115)
--- NOTE | 2022-10-18 11:57 | PM.PNCARD ---
Subjective Subjective Date of Service: 10/18/22 Principal diagnosis: Decompensated heart failure Interval history: Patient diuresing well. Overall negative balance of 9.5 L. Responding to diuretics very well. He feels a lot better. Shortness of breath is improved. Leg edema is improving. Generalized is fluid overload has improved significantly. Underwent PermCath yesterday. No overt bleeding issues. Review of Systems Constitutional: Reports fatigue and Reports weakness Eyes: Reports no additional eye complaints Cardiovascular: Denies chest pain, Reports leg edema, Denies lightheadedness, Denies palpitations and Reports dyspnea on exertion Respiratory: Reports no additional respiratory complaints and Reports dyspnea on exertion Reports weakness Endocrine: Reports fatigue and Denies palpitations Physical Exam Vital Signs: Last Vital Signs Temp 97.8 F 10/18/22 11:53 Pulse 74 10/18/22 11:53 Resp 16 10/18/22 11:53 BP 127/73 10/18/22 11:53 Pulse Ox 99 10/18/22 11:53 O2 Del Method Room Air 10/18/22 11:53 BMI result Body Mass Index 40.8 Const General: cooperative, no acute distress, alert and awake Nutritional Appearance: obese Orientation/consciousness: patient oriented x3 Neck Neck: Yes trachea midline, Yes supple and Yes JVD (Improving) Resp Effort & Inspection: normal respiratory effort Auscultation: no rales, no wheezes and diminished lung sounds Cardio Jugular venous distension: JVD Rate: regular rate Rhythm: regular rhythm Heart sounds: S1 normal heart sound present, S2 normal heart sound present, no click, no gallops, no murmurs and no rubs GI Inspection: Yes distended Auscultation: normal bowel sounds Skin General skin exam: no rashes or lesions noted Neuro General: patient oriented x3 Extrem General: No clubbing, No cyanosis and Yes edema (Improving) Objective Labs and Meds 10/18/22 06:32 10/18/22 06:32 Lab results: Laboratory Results - last 24 hr 10/17/22 10/17/22 10/18/22 16:02 20:06 06:32 Hgb 8.9 L Hct 27.7 L Sodium Potassium Chloride Carbon Dioxide Anion Gap BUN Creatinine Estim Creat Clear Calc Estimated GFR POC Glucose 123 H 107 Random Glucose Calcium B-Natriuretic Peptide 05/06/23 05/06/23 05/06/23 06:32 06:32 07:32 Hgb Hct Sodium 143 Potassium 3.6 Chloride 107 Carbon Dioxide 24 Anion Gap 16 BUN 101 H Creatinine 4.10 H* Estim Creat Clear Calc 23.6 Estimated GFR 15 POC Glucose 73 Random Glucose 72 Calcium 8.7 B-Natriuretic Peptide 1474 H 10/18/22 11:02 Hgb Hct Sodium Potassium Chloride Carbon Dioxide Anion Gap BUN Creatinine Estim Creat Clear Calc Estimated GFR POC Glucose 121 H Random Glucose Calcium B-Natriuretic Peptide Imaging Radiologist's impression: Impressions Insertion Tunneled Catheter 10/17/22 11:28 IMPRESSION: Right internal jugular 14.5 English 19 cm in length [facility] permacath placement. Progress Note: A&P Assessment and plan (1) Decompensated heart failure: Status: Acute Assessment and Plan: Decompensated heart failure with multiple comorbidities with poor functional status, advanced kidney disease as well as anemia. Has improved significantly in diuresed very well at this point time. Kidney functions have remained stable. Continue IV diuresis with Lasix. Still appears to be fluid overloaded. Not ready for discharge. Heart failure education to be provided. Continue to trend BNP tomorrow. Continue monitor renal function and strict intake and output chart. (2) Paroxysmal A-fib: Status: Acute Assessment and Plan: Paroxysmal atrial fibrillation without any clinical recurrence at this point time. Continue to monitor. If okay with surgery should restart his Eliquis therapy. Continue metoprolol therapy. Will follow with you Time Spent With Patient Time: Total time managing care of this patient today ____ minutes. Progress Note: Quality Stroke Does the patient have a stroke diagnosis?: No Procedures Date of Service Date of Service: 10/18/22
--- NOTE | 2022-10-18 15:17 | P.PNNP_ITS ---
Subjective Subjective Date of Service: 10/18/22 Principal diagnosis: Decompensated heart failure Interval history: Acute HFpEF exacerbation,ckd 4 Good Urine output Physical Exam Vital Signs: Vital Signs: Last Vital Signs Temp 98.0 F 10/18/22 15:08 Pulse 80 10/18/22 15:08 Resp 20 10/18/22 15:08 BP 121/66 10/18/22 15:08 Pulse Ox 97 10/18/22 15:08 O2 Del Method Room Air 10/18/22 15:08 BMI result Body Mass Index 40.8 Const: General: cooperative, no acute distress, alert and awake Nutritional Appearance: obese Orientation/consciousness: patient oriented x3 Neck: Neck: Yes trachea midline, Yes supple and Yes JVD (Improving) Resp: Effort & Inspection: normal respiratory effort Auscultation: no rales, no wheezes and diminished lung sounds Cardio: Jugular venous distension: JVD Rate: regular rate Rhythm: regula r rhythm Heart sounds: S1 normal heart sound present, S2 normal heart sound present, no click, no gallops, no murmurs and no rubs GI: Inspection: Yes distended Auscultation: normal bowel sounds Skin: General skin exam: no rashes or lesions noted Neuro: General: patient oriented x3 Extrem: General: No clubbing, No cyanosis and Yes edema (Improving) Objective Data Labs 10/18/22 06:32 10/18/22 06:32 Labs: Laboratory Results - last 24 hr 10/17/22 10/17/22 10/18/22 16:02 20:06 06:32 Hgb 8.9 L Hct 27.7 L Sodium Potassium Chloride Carbon Dioxide Anion Gap BUN Creatinine Estim Creat Clear Calc Estimated GFR POC Glucose 123 H 107 Random Glucose Calcium B-Natriuretic Peptide 10/18/22 10/18/22 10/18/22 06:32 06:32 07:32 Hgb Hct Sodium 143 Potassium 3.6 Chloride 107 Carbon Dioxide 24 Anion Gap 16 BUN 101 H Creatinine 4.10 H* Estim Creat Clear Calc 23.6 Estimated GFR 15 POC Glucose 73 Random Glucose 72 Calcium 8.7 B-Natriuretic Peptide 1474 H 10/18/22 11:02 Hgb Hct Sodium Potassium Chloride Carbon Dioxide Anion Gap BUN Creatinine Estim Creat Clear Calc Estimated GFR POC Glucose 121 H Random Glucose Calcium B-Natriuretic Peptide Microbiology Microbiology Results: Microbiology 10/14/22 Unknown Urine clean catch - Urine keys top Urine Culture - Final Procedures Date of Service Date of Service: 10/18/22 Assessment & Plan Assessment and plan (1) Congestive heart failure: Status: Acute (2) Shortness of breath: Status: Acute (3) CKD (chronic kidney disease) stage 4, GFR 15-29 ml/min: Status: Acute Plan 67-year-old man with advanced renal failure approaching ESRD admitted with fluid overload. Severe anemia. Hyperchloremic metabolic acidosis. Congestive heart failure. Recommendations Continue IV diuretics to keep him on a negative fluid balance.( Cr stable with diuretics ) Lasix drip at 10 mg an hour. Hold off hemodialysis. - Pt has a PC Low Na diet Fluid restriction F/u renal func Time Spent With Patient Time: Total time managing care of this patient today ____ minutes. Progress Note: Quality Stroke Does the patient have a stroke diagnosis?: No
[2022-10-18 16:24] LABS: Glucose, Whole Blood 107 mg/dL (60-115)
--- NOTE | 2022-10-18 17:23 | HO.POSTANES ---
Post Anesthesia Evaluation Post Anesthesia Evaluation Vital Signs: Vital Signs Temp Pulse Resp BP Pulse Ox O2 Del Method 10/18/22 15:08 98.0 F 80 20 121/66 97 Room Air 10/18/22 11:53 97.8 F 74 16 127/73 99 Room Air 10/18/22 08:19 88 18 10/18/22 07:35 97.7 F 85 16 121/77 98 Room Air Anesthesia: General LMA Mental Status: Awake Pain Control: Satisfactory Nausea/Vomiting: None Hydration: Adequate Anesthesia-Related Issues: No Anes. Related Issues
[2022-10-18 20:11] LABS: Glucose, Whole Blood 106 mg/dL (60-115)
[2022-10-18] MEDS: Doxazosin Mesylate 2 MG TABLET 4 MG PO (20:24)
[2022-10-18] MEDS: Apixaban 2.5 MG TABLET PO (20:24)
[2022-10-18] MEDS: Pravastatin Sodium 20 MG TABLET PO (20:24)
[2022-10-19] VITALS (8 sets, daily range): BP systolic 111–128; BP diastolic 57–94; PULSE 77–92; RESP 18–20; TEMP 36.6–36.8; O2SAT 95–100
[2022-10-19 06:52] LABS: Hematocrit 27.8 % (42.0-52.0)
[2022-10-19 07:06] LABS: Anion Gap 17 (12-20); Blood Urea Nitrogen 102 mg/dL (9-16); Calcium 8.8 mg/dL (8.4-10.2); Carbon Dioxide 24 mmol/L (22-29); Chloride 104 mmol/L (96-108); Creatinine Clr Calc Pharmacy 24.1; Estimated Glomerular Filt Rate 15; Glucose Random 72 mg/dL (60-115); Potassium 3.6 mmol/L (3.3-5.1); Sodium 141 mmol/L (135-145)
[2022-10-19] MEDS: Salmeterol Xinafoate 50 MCG BLST.W.DEV 1 PUFF INHALE ×2 (07:31→19:19)
[2022-10-19 08:04] LABS: Glucose, Whole Blood 78 mg/dL (60-115)
[2022-10-19] MEDS: 0.9 % Sodium Chloride Flush 3 ML SYRINGE IVFLUSH (09:03)
[2022-10-19] MEDS: Nystatin Powder 15 GM BOTTLE 1 APPL TOPICAL ×2 (09:04→20:53)
[2022-10-19] MEDS: Ferrous Sulfate 324 MG TABLET.DR PO (09:04)
[2022-10-19] MEDS: Apixaban 2.5 MG TABLET PO ×2 (09:04→20:52)
[2022-10-19] MEDS: acetaZOLAMIDE 250 MG TABLET PO ×2 (09:04→20:52)
[2022-10-19] MEDS: calcitrioL 0.25 MCG CAPSULE 0.5 MCG PO (09:04)
[2022-10-19] MEDS: metOLazone 2.5 MG TABLET PO (09:04)
[2022-10-19] MEDS: Clotrimazole 1 % Cream 15 GM TUBE 1 APPL TOPICAL ×2 (09:05→20:53)
--- NOTE | 2022-10-19 11:13 | PM.PNCARD ---
Subjective Subjective Date of Service: 10/19/22 Principal diagnosis: Decompensated heart failure Interval history: Patient feeling a lot better. Breathing is improved significantly. Leg edema is improving. Diuresing very well. Overall negative balance of about 12 L. Review of Systems Review of Systems Yes all other systems are reviewed and are negative Physical Exam Vital Signs: Last Vital Signs Temp 97.8 F 10/19/22 10:59 Pulse 92 10/19/22 10:59 Resp 20 10/19/22 10:59 BP 114/73 10/19/22 10:59 Pulse Ox 98 10/19/22 10:59 O2 Del Method Room Air 10/19/22 10:59 BMI result Body Mass Index 40.8 Const General: cooperative, no acute distress, alert and awake Nutritional Appearance: obese Orientation/consciousness: patient oriented x3 Neck Neck: Yes trachea midline, Yes supple and Yes JVD (Improving) Resp Effort & Inspection: normal respiratory effort Auscultation: no rales, no wheezes and diminished lung sounds Cardio Jugular venous distension: JVD Rate: regular rate Rhythm: regular rhythm Heart sounds: S1 normal heart sound present, S2 normal heart sound present, no click, no gallops, no murmurs and no rubs GI Inspection: Yes distended Auscultation: normal bowel sounds Skin General skin exam: no rashes or lesions noted Neuro General: patient oriented x3 Extrem General: No clubbing, No cyanosis and Yes edema (Improving) Objective Labs and Meds 10/19/22 06:16 10/19/22 06:16 Lab results: Laboratory Results - last 24 hr 10/18/22 10/18/22 10/18/22 11:02 16:09 19:54 Hgb Hct Sodium Potassium Chloride Carbon Dioxide Anion Gap BUN Creatinine Estim Creat Clear Calc Estimated GFR POC Glucose 121 H 107 106 Random Glucose Calcium 10/19/22 10/19/22 10/19/22 06:16 06:16 07:21 Hgb 9.0 L Hct 27.8 L Sodium 141 Potassium 3.6 Chloride 104 Carbon Dioxide 24 Anion Gap 17 BUN 102 H Creatinine 4.01 H* Estim Creat Clear Calc 24.1 Estimated GFR 15 POC Glucose 78 Random Glucose 72 Calcium 8.8 Progress Note: A&P Assessment and plan (1) Decompensated heart failure: Status: Acute Assessment and Plan: Decompensated heart failure with multiple comorbidities doing extremely well since admission has diuresed very well over the last many days. Continue diuresis. Trend BMP tomorrow. If BNP is significantly reduce below 500 range would switch to p.o. diuretics. Would switch him to p.o. torsemide of as an outpatient for better diuretic response. He was not responding to Lasix therapy. P.r.n. metolazone as outpatient also. Heart failure education to be provided. Continue supportive care. Consider PT consult tomorrow and ambulate as tolerated. Continue pursue rhythm control approach. Continue maintain hematocrit over 30. Will continue to follow with you. (2) Paroxysmal A-fib: Status: Acute Assessment and Plan: Paroxysmal atrial fibrillation has remained suppressed. Patient currently pacing in the ventricle. Doing well. Continue current metoprolol therapy. Continue current Eliquis therapy for anticoagulation. Will continue to follow with you Time Spent With Patient Time: Total time managing care of this patient today ____ minutes. Progress Note: Quality Stroke Does the patient have a stroke diagnosis?: No Procedures Date of Service Date of Service: 10/19/22
--- NOTE | 2022-10-19 11:30 | HO.PM.IMPN ---
Subjective Subjective Date of Service: 10/19/22 Interval History: Acute HFpEF exacerbation,ckd 4 Review of Systems swelling leg/scrotum/upper thigh little improvin denies any chest pain or sob Physical Exam Vital Signs: Vital Signs: Last Vital Signs Temp 97.8 F 10/19/22 10:59 Pulse 92 10/19/22 10:59 Resp 20 10/19/22 10:59 BP 114/73 10/19/22 10:59 Pulse Ox 98 10/19/22 10:59 O2 Del Method Room Air 10/19/22 10:59 BMI result Body Mass Index 40.8 Appearance: Alert.? Oriented X3.? slightly sob improving? cvs: rrr, [id number] . res: clear to auscultation ,no rhonchii or wheezing abd: no rebound or guarding ,nt, bs present. abd : soft ,nd , nt ,bs present : scrotal/penile swellin,leg sweling/thigh swelelin-overall anacarca-somewhat improving has garcia ext pulses present , no cyanosis . neuro: axo3 , nonfocal Objective Data Active Medications Acetaminophen (Acetaminophen 325 Mg Tablet) 650 mg PO Q6H PRN PRN Reason: Pain, Mild (Pain Scale 1-3) Acetazolamide (Acetazolamide 250 Mg Tablet) 250 mg PO BID [facility] Last Admin: 10/19/22 09:04 Dose: 250 mg Documented By: AUNDREA Albuterol Sulfate (Albuterol Sulfate 90 Mcg 8 Gm Inhaler) 2 puff INHALE Q4H PRN PRN Reason: Shortness Of Breath Or Wheezing Apixaban (Apixaban 2.5 Mg Tablet) 2.5 mg PO BID [facility] Last Admin: 10/19/22 09:04 Dose: 2.5 mg Documented By: AUNDREA Calcitriol (Calcitriol 0.25 Mcg Capsule) 0.5 mcg PO DAILY [facility] Last Admin: 10/19/22 09:04 Dose: 0.5 mcg Documented By: AUNDREA Clotrimazole (Clotrimazole 1 % Cream 15 Gm Tube) 1 appl TOPICAL BID [facility]; Protocol Last Admin: 10/19/22 09:05 Dose: 1 appl Documented By: AUNDREA Docusate Sodium (Docusate Sodium 100 Mg Capsule) 100 mg PO DAILY PRN PRN Reason: Constipation Doxazosin Mesylate (Doxazosin Mesylate 2 Mg Tablet) 4 mg PO BEDTIME [facility] Last Admin: 10/18/22 20:24 Dose: 4 mg Documented By: JUAN JOSÉ Ferrous Sulfate (Ferrous Sulfate 324 Mg Tablet.Dr) 324 mg PO DAILY [facility] Last Admin: 10/19/22 09:04 Dose: 324 mg Documented By: AUNDREA Glucose (Glucose Gel 15 Gm Gel..Gram.) 15 gm PO Q15M PRN; Protocol PRN Reason: per Hypoglycemia Standing Ord. Dextrose (D10) 250 mls @ 750 mls/hr IV Q15M PRN; Protocol PRN Reason: per Hypoglycemia Standing Ord. Furosemide 200 mg/ Sodium (Chloride) 100 mls @ 5 mls/hr IVCONT .Q20H [facility] Last Admin: 10/18/22 22:23 Dose: 10 mg/hr, 5 mls/hr Documented By: JUAN JOSÉ Insulin Human Lispro (Insulin Lispro 100 Unit/Ml 3 Ml Vial) 0 unit SUBCUT QIDACHS [facility]; Protocol Last Admin: 10/19/22 07:47 Dose: Not Given Documented By: AUNDREA Non-Admin Reason: No Insulin Coverage Isosorbide Mononitrate (Isosorbide Mononitrate 30 Mg Tab.Er.24h) 30 mg PO DAILY [facility]; Protocol Last Admin: 10/14/22 09:29 Dose: 30 mg Documented By: HALIE Lactic Acid (Ammonium Lactate 12 % Cream 140 Gm Tube) 1 appl TOPICAL BID PRN; Protocol PRN Reason: Dry Skin Metolazone (Metolazone 2.5 Mg Tablet) 2.5 mg PO DAILY [facility] Last Admin: 10/19/22 09:04 Dose: 2.5 mg Documented By: AUNDREA Metoprolol Tartrate (Metoprolol Tartrate 12.5 Mg Halftab) 12.5 mg PO BID [facility]; Protocol Last Admin: 10/14/22 09:28 Dose: 12.5 mg Documented By: HALIE Nystatin (Nystatin Powder 15 Gm Bottle) 1 appl TOPICAL BID [facility]; Protocol Last Admin: 10/19/22 09:04 Dose: 1 appl Documented By: AUNDREA Ondansetron HCl (Ondansetron Hcl 4 Mg/2 Ml Vial) 4 mg IVPUSH Q8H PRN PRN Reason: Nausea and Vomiting Pharmacy Consult (Consult Rx Perform Med Rec) 1 each MISCELLANE ONCE PRN PRN Reason: Consult order Polyethylene Glycol (Polyethylene Glycol 3350 17 Gm Powd.Pack) 17 gm PO DAILY PRN PRN Reason: Constipation Pravastatin Sodium (Pravastatin Sodium 20 Mg Tablet) 20 mg PO BEDTIME [facility] Last Admin: 10/18/22 20:24 Dose: 20 mg Documented By: JUAN JOSÉ Salmeterol Xinafoate (Salmeterol Xinafoate 50 Mcg Blst.W.Dev) 1 puff INHALE RBID [facility] Last Admin: 10/19/22 07:31 Dose: 1 puff Documented By: PAT Sodium Bicarbonate (Sodium Bicarbonate 650 Mg Tablet) 650 mg PO QID PRN PRN Reason: Gastric Reflux Sodium Chloride (0.9 % Sodium Chloride Flush 3 Ml Syringe) 3 ml IVFLUSH QSHIFT [facility] Last Admin: 10/19/22 09:03 Dose: 3 ml Documented By: AUNDREA Tiotropium [place] (Tiotropium [place] 18 Mcg Cap.W.Dev) 1 puff INHALE RDAILY [facility] Last Admin: 10/19/22 07:31 Dose: 1 puff Documented By: PAT Labs 10/19/22 06:16 10/19/22 06:16 Labs: Laboratory Results - last 24 hr 10/18/22 10/18/22 10/19/22 16:09 19:54 06:16 Anion Gap 17 Estim Creat Clear Calc 24.1 Estimated GFR 15 POC Glucose 107 106 Random Glucose 72 Calcium 8.8 10/19/22 07:21 Anion Gap Estim Creat Clear Calc Estimated GFR POC Glucose 78 Random Glucose Calcium Assessment and Plan (1) Paroxysmal A-fib: Status: Acute (2) Decompensated heart failure: Status: Acute Plan 67-year-old male with a PMH significant for?CKD stage 4 not on dialysis, [id number] diabetes type 2, COPD, HTN, HLD, ZEYAD, and AFib on Eliquis who presents to the ED with?worsening SOB with exertion for the past week. Pt will be admitted to the hospital treatment and further evaluation of acute CHF exacerbation. Acute HFpEF exacerbation,boderline bP Patient with SOB, 12 lb weight gain in past week, increased lower leg and abdominal edema, elevated BNP, CXR with evidence of pulmonary edema Follow lytes, mg, I/O( we will place garcia) neg 12 liters Daily weights(today weight 133kg), low-salt diet Last echocardiogram on 09/25/2022 found low normal LV systolic function with mild LVH and at least grade 2 diastolic dysfunction producing urine but difficult to collect in the urinal and also difficult to place urine a get tighter because of significant penile? swelling sob improving, overall sweling/lower ext swellin slightly improving, bnp trending up Cardiology consult-adjusted? lasix, added acetazolamide? , bnp improving, i/o strict, hold bp meds:amlodipine /bb/imdure . Monitor on telemetry Hyperphosphatemia Patient's phosphorus? flactuating 5.8,improving, likely secondary to patient's CKD Low phosphorus diet Follow phosphorus levels CKD stage 4 Patient creatinine 4.14, estimated GFR 15 Stable, at baseline Nephrology consult- may need hd/permacath . Paroxysmal atrial fibrillation Continue metoprolol Eliquis added back ,moniter any brusing Non insulin-dependent diabetes type 2, diet-controlled Patient not on home meds Cover with sliding scale insulin HTN Continue amlodipine COPD Not in acute exacerbation Continue home inhalers woserning anemia of aocd(ckd) given 2 prbc h/h 03/11.7 DNI inpatient need:acute HFpEF exacerbation , still has fluid overload-with IV diuretics and specialist consults, electrolytic monitering Time Spent With Patient Time: Total time managing care of this patient today ____ minutes. Quality Stroke Does the patient have a stroke diagnosis?: No VTE Prior VTE?: No VTE Risk Level:: Medical - moderate - high VTE Device Contraindication: Treatment Not Indicated VTE Drug Contraindication: N/A - Med Ordered
[2022-10-19 11:41] LABS: Glucose, Whole Blood 114 mg/dL (60-115)
[2022-10-19 16:26] LABS: Glucose, Whole Blood 120 mg/dL (60-115)
--- NOTE | 2022-10-19 17:33 | PM.PNNEP ---
Subjective Subjective Date of Service: 10/19/22 Principal diagnosis: Decompensated heart failure Interval history: Sitting up in the chair Good U output Physical Exam Vital Signs: Vital Signs: Last Vital Signs Temp 97.9 F 10/19/22 15:40 Pulse 78 10/19/22 15:40 Resp 20 10/19/22 15:40 BP 126/94 H 10/19/22 15:40 Pulse Ox 100 10/19/22 15:40 O2 Del Method Room Air 10/19/22 15:40 BMI result Body Mass Index 40.8 Appearance: Alert.? Oriented X3.? slightly sob improving? cvs: rrr, [id number] . res: clear to auscultation ,no rhonchii or wheezing abd: no rebound or guarding ,nt, bs present. abd : soft ,nd , nt ,bs present : scrotal/penile swellin,leg sweling/thigh swelelin-overall anacarca-somewhat improving has garcia ext pulses present , no cyanosis . neuro: axo3 , nonfocal Objective Data Labs 10/19/22 06:16 10/19/22 06:16 Labs: Laboratory Results - last 24 hr 10/18/22 10/19/22 10/19/22 19:54 06:16 06:16 Hgb 9.0 L Hct 27.8 L Sodium 141 Potassium 3.6 Chloride 104 Carbon Dioxide 24 Anion Gap 17 BUN 102 H Creatinine 4.01 H* Estim Creat Clear Calc 24.1 Estimated GFR 15 POC Glucose 106 Random Glucose 72 Calcium 8.8 10/19/22 10/19/22 10/19/22 07:21 11:00 16:15 Hgb Hct Sodium Potassium Chloride Carbon Dioxide Anion Gap BUN Creatinine Estim Creat Clear Calc Estimated GFR POC Glucose 78 114 120 H Random Glucose Calcium Microbiology Microbiology Results: Microbiology 10/14/22 Unknown Urine clean catch - Urine keys top Urine Culture - Final Procedures Date of Service Date of Service: 10/19/22 Assessment & Plan Assessment and plan (1) Congestive heart failure: Status: Acute (2) Shortness of breath: Status: Acute (3) CKD (chronic kidney disease) stage 4, GFR 15-29 ml/min: Status: Acute Plan 67-year-old man with advanced renal failure approaching ESRD admitted with fluid overload. Severe anemia. Hyperchloremic metabolic acidosis. Congestive heart failure. Recommendations Continue IV diuretics to keep him on a negative fluid balance.( Cr stable with diuretics ) Lasix drip at 10 mg an hour. Pt is still edematus Make sure pt is on a fluoid restriction 150o ml Hold off HD initiation ( Pt never started ). - Pt has a TEMP IJ in R SIDE- Will keep it today Low Na diet Fluid restriction F/u renal func Time Spent With Patient Time: Total time managing care of this patient today ____ minutes. Progress Note: Quality Stroke Does the patient have a stroke diagnosis?: No
[2022-10-19] MEDS: Furosemide 200 MG in 0.9 % Sodium Chloride 80 ML IVCONT (20:52)
[2022-10-19] MEDS: Pravastatin Sodium 20 MG TABLET PO (20:53)
[2022-10-19] MEDS: Doxazosin Mesylate 2 MG TABLET 4 MG PO (20:53)
[2022-10-19 21:00] LABS: Glucose, Whole Blood 108 mg/dL (60-115)
[2022-10-20] VITALS (9 sets, daily range): BP systolic 108–131; BP diastolic 59–73; PULSE 72–102; RESP 14–20; TEMP 36.4–37.3; O2SAT 94–99
[2022-10-20 06:26] LABS: Anion Gap 17 (12-20); Blood Urea Nitrogen 107 mg/dL (9-16); Calcium 8.8 mg/dL (8.4-10.2); Carbon Dioxide 24 mmol/L (22-29); Chloride 103 mmol/L (96-108); Creatinine Clr Calc Pharmacy 22.9; Estimated Glomerular Filt Rate 14; Glucose Random 71 mg/dL (60-115); Potassium 3.4 mmol/L (3.3-5.1); Sodium 141 mmol/L (135-145)
[2022-10-20 06:29] LABS: B Type Natriuretic Peptide 1431 pg/mL (<100)
[2022-10-20] MEDS: Salmeterol Xinafoate 50 MCG BLST.W.DEV 1 PUFF INHALE ×2 (07:23→18:45)
[2022-10-20 07:57] LABS: Glucose, Whole Blood 78 mg/dL (60-115)
[2022-10-20] MEDS: acetaZOLAMIDE 250 MG TABLET PO ×2 (08:08→21:10)
[2022-10-20] MEDS: Apixaban 2.5 MG TABLET PO ×2 (08:08→21:10)
[2022-10-20] MEDS: calcitrioL 0.25 MCG CAPSULE 0.5 MCG PO (08:08)
[2022-10-20] MEDS: metOLazone 2.5 MG TABLET PO (08:09)
[2022-10-20] MEDS: Ferrous Sulfate 324 MG TABLET.DR PO (08:09)
[2022-10-20] MEDS: 0.9 % Sodium Chloride Flush 3 ML SYRINGE IVFLUSH ×2 (08:09→21:14)
[2022-10-20] MEDS: Nystatin Powder 15 GM BOTTLE 1 APPL TOPICAL ×2 (08:10→21:11)
[2022-10-20] MEDS: Clotrimazole 1 % Cream 15 GM TUBE 1 APPL TOPICAL ×2 (08:11→21:10)
--- NOTE | 2022-10-20 10:12 | MHC.CM.PN ---
Per ROUNDS discussion, Patient is not yet medically cleared for dc (IV LASIX); home is the goal AND cm WILL CONTINUE TO FOLLOW.
--- NOTE | 2022-10-20 11:02 | P.PNCA_ITS ---
Subjective Subjective Date of Service: 10/20/22 Principal diagnosis: Decompensated heart failure Interval history: Patient states that he is feeling okay. No new complaints. Breathing is improved. Review of Systems Review of Systems Yes all other systems are reviewed and are negative Constitutional: Reports as per HPI and Reports no additional constitutional complaints Eyes: Reports as per HPI and Denies no additional eye complaints Denies system reviewed and no additional complaints, except as documented and Reports as per HPI Cardiovascular: Reports as per HPI, Reports no additional cardiovascular complaints, Denies acrocyanosis, Denies cool extremities, Denies chest pain, Reports leg edema, Denies lightheadedness, Denies palpitations and Reports dyspnea Respiratory: Reports as per HPI, Denies no additional respiratory complaints and Reports dyspnea Gastrointestinal: Reports as per HPI and Denies no additional gastrointestinal complaints Genitourinary: Reports no additional male genitourinary complaints and Reports as per HPI Musculoskeletal: Reports no additional musculoskeletal complaints and Reports as per HPI Skin/Breast: Reports system reviewed and no additional complaints, except as docu Reports system reviewed and no additional complaints, except as documented and Reports as per HPI Psychiatric: Reports no additional psychiatric complaints and Reports as per HPI Endocrine: Reports no additional endocrine complaints, Reports as per HPI and Denies palpitations Hematologic/Lymphatic: Reports no additional hematologic/lymphatic complaints and Reports as per HPI Allergic/Immunologic: Reports no additional allergic/immunologic complaints and Reports as per HPI Physical Exam Vital Signs: Last Vital Signs Temp 98.4 F 10/20/22 07:20 Pulse 79 10/20/22 07:25 Resp 20 10/20/22 07:25 BP 108/62 10/20/22 07:20 Pulse Ox 96 10/20/22 07:20 O2 Del Method Room Air 10/20/22 07:20 BMI result Body Mass Index 40.8 Const General: comfortable and no acute distress Orientation/consciousness: patient oriented x3 HEENT Other: Unremarkable Head: Yes normal to inspection Neck Neck: Yes normal visual inspection Chest Chest palpation & inspection: normal inspection of the chest Resp Other: few basal crackles Cardio Palpation: normal PMI Heart sounds: S1 normal heart sound present, S2 normal heart sound present, no gallops, no murmurs and no rubs GI Palpation (GI): Soft to palpation Back/Spine/Pelvis Other: unremarkable Skin General skin exam: no rashes or lesions noted Neuro General: patient oriented x3 Extrem Other: chronic changes in both LE; 1+ edema Psych Mental Status: mental status grossly normal Objective Labs and Meds 10/19/22 06:16 10/20/22 05:30 Lab results: Laboratory Results - last 24 hr 10/19/22 10/19/22 10/19/22 11:00 16:15 20:55 Sodium Potassium Chloride Carbon Dioxide Anion Gap BUN Creatinine Estim Creat Clear Calc Estimated GFR POC Glucose 114 120 H 108 Random Glucose Calcium B-Natriuretic Peptide 10/20/22 10/20/22 10/20/22 05:30 05:30 07:17 Sodium 141 Potassium 3.4 Chloride 103 Carbon Dioxide 24 Anion Gap 17 BUN 107 H Creatinine 4.23 H* Estim Creat Clear Calc 22.9 Estimated GFR 14 POC Glucose 78 Random Glucose 71 Calcium 8.8 B-Natriuretic Peptide 1431 H Progress Note: A&P Assessment and plan (1) Acute on chronic diastolic CHF (congestive heart failure), NYHA class 3: Status: Acute (2) Pulmonary hypertension: Status: Acute (3) CKD (chronic kidney disease) stage 4, GFR 15-29 ml/min: Status: Acute (4) Cirrhosis: Status: Acute Plan Per last echocardiogram, LVEF 55%. Moderate diastolic dysfunction. Basal inferior/apical septum hypokinesis. At least moderately dilated left atrium. Early aortic stenosis and mild mitral regurgitation. Significant pulmonary hypertension. Other labs reviewed. Cardiac BNP is 1431. On the 1st of this month, it was 962. Last year, 404. Creatinine is 4.23. It has been in this range for at le ast the last month. In 2021 it was 3.2. Even lower in 2020. In the abdomen CT-cirrhosis, small to moderate amount of ascites. Overall, he has some combination of diastolic dysfunction, renal insufficiency, cirrhosis causing fluid overload. It may be difficult to follow cardiac BNP as renal function is quite abnormal. However, based on input output data, he is - 16 L so far. Based on this, may be reasonable to switch him to oral diuretics. Will discuss with Dr. Rockwell. If Cirrhosis has not been addressed in past, may need GI involvement. Time Spent With Patient Time: Total time managing care of this patient today 50 minutes. This includes time spent in review of chart, laboratory data, imaging studies, review of telemetry, counseling patient, discussion with hospitalist, RN, documentation, coordination of care. Progress Note: Quality Stroke Does the patient have a stroke diagnosis?: No Procedures Date of Service Date of Service: 10/20/22
[2022-10-20 11:46] LABS: Glucose, Whole Blood 105 mg/dL (60-115)
--- NOTE | 2022-10-20 11:47 | HO.PM.IMPN ---
Subjective Subjective Date of Service: 10/20/22 Interval History: Acute HFpEF exacerbation,ckd 4 Review of Systems swelling leg/scrotum/upper thigh little improvin denies any chest pain or sob sofar i/o :16 liter neg Physical Exam Vital Signs: Vital Signs: Last Vital Signs Temp 99.2 F 10/20/22 11:29 Pulse 72 10/20/22 11:29 Resp 20 10/20/22 11:29 BP 114/59 L 10/20/22 11:29 Pulse Ox 97 10/20/22 11:29 O2 Del Method Room Air 10/20/22 11:29 BMI result Body Mass Index 40.8 Appearance: Alert.? Oriented X3.? slightly sob improving? cvs: rrr, [id number] . res: clear to auscultation ,no rhonchii or wheezing abd: no rebound or guarding ,nt, bs present. abd : soft ,nd , nt ,bs present : scrotal/penile swellin,leg sweling/thigh swelelin-overall anacarca-somewhat improving has garcia ext pulses present , no cyanosis . neuro: axo3 , nonfocal Objective Data Active Medications Acetaminophen (Acetaminophen 325 Mg Tablet) 650 mg PO Q6H PRN PRN Reason: Pain, Mild (Pain Scale 1-3) Acetazolamide (Acetazolamide 250 Mg Tablet) 250 mg PO BID [facility] Last Admin: 10/20/22 08:08 Dose: 250 mg Documented By: ISAAC Albuterol Sulfate (Albuterol Sulfate 90 Mcg 8 Gm Inhaler) 2 puff INHALE Q4H PRN PRN Reason: Shortness Of Breath Or Wheezing Apixaban (Apixaban 2.5 Mg Tablet) 2.5 mg PO BID [facility] Last Admin: 10/20/22 08:08 Dose: 2.5 mg Documented By: ISAAC Calcitriol (Calcitriol 0.25 Mcg Capsule) 0.5 mcg PO DAILY [facility] Last Admin: 10/20/22 08:08 Dose: 0.5 mcg Documented By: ISAAC Clotrimazole (Clotrimazole 1 % Cream 15 Gm Tube) 1 appl TOPICAL BID [facility]; Protocol Last Admin: 10/20/22 08:11 Dose: 1 appl Documented By: ISAAC Docusate Sodium (Docusate Sodium 100 Mg Capsule) 100 mg PO DAILY PRN PRN Reason: Constipation Doxazosin Mesylate (Doxazosin Mesylate 2 Mg Tablet) 4 mg PO BEDTIME [facility] Last Admin: 10/19/22 20:53 Dose: 4 mg Documented By: ISAAC Ferrous Sulfate (Ferrous Sulfate 324 Mg Tablet.Dr) 324 mg PO DAILY [facility] Last Admin: 10/20/22 08:09 Dose: 324 mg Documented By: ISAAC Glucose (Glucose Gel 15 Gm Gel..Gram.) 15 gm PO Q15M PRN; Protocol PRN Reason: per Hypoglycemia Standing Ord. Dextrose (D10) 250 mls @ 750 mls/hr IV Q15M PRN; Protocol PRN Reason: per Hypoglycemia Standing Ord. Furosemide 200 mg/ Sodium (Chloride) 100 mls @ 5 mls/hr IVCONT .Q20H [facility] Last Admin: 10/19/22 20:52 Dose: 10 mg/hr, 5 mls/hr Documented By: ISAAC Insulin Human Lispro (Insulin Lispro 100 Unit/Ml 3 Ml Vial) 0 unit SUBCUT QIDACHS [facility]; Protocol Last Admin: 10/20/22 08:00 Dose: Not Given Documented By: ISAAC Non-Admin Reason: No Insulin Coverage Isosorbide Mononitrate (Isosorbide Mononitrate 30 Mg Tab.Er.24h) 30 mg PO DAILY [facility]; Protocol Last Admin: 10/14/22 09:29 Dose: 30 mg Documented By: HALIE Lactic Acid (Ammonium Lactate 12 % Cream 140 Gm Tube) 1 appl TOPICAL BID PRN; Protocol PRN Reason: Dry Skin Metolazone (Metolazone 2.5 Mg Tablet) 2.5 mg PO DAILY [facility] Last Admin: 10/20/22 08:09 Dose: 2.5 mg Documented By: ISAAC Metoprolol Tartrate (Metoprolol Tartrate 12.5 Mg Halftab) 12.5 mg PO BID [facility]; Protocol Last Admin: 10/14/22 09:28 Dose: 12.5 mg Documented By: HALIE Nystatin (Nystatin Powder 15 Gm Bottle) 1 appl TOPICAL BID [facility]; Protocol Last Admin: 10/20/22 08:10 Dose: 1 appl Documented By: ISAAC Ondansetron HCl (Ondansetron Hcl 4 Mg/2 Ml Vial) 4 mg IVPUSH Q8H PRN PRN Reason: Nausea and Vomiting Pharmacy Consult (Consult Rx Perform Med Rec) 1 each MISCELLANE ONCE PRN PRN Reason: Consult order Polyethylene Glycol (Polyethylene Glycol 3350 17 Gm Powd.Pack) 17 gm PO DAILY PRN PRN Reason: Constipation Pravastatin Sodium (Pravastatin Sodium 20 Mg Tablet) 20 mg PO BEDTIME [facility] Last Admin: 10/19/22 20:53 Dose: 20 mg Documented By: ISAAC Salmeterol Xinafoate (Salmeterol Xinafoate 50 Mcg Blst.W.Dev) 1 puff INHALE RBID [facility] Last Admin: 10/20/22 07:23 Dose: 1 puff Documented By: RAMU Sodium Bicarbonate (Sodium Bicarbonate 650 Mg Tablet) 650 mg PO QID PRN PRN Reason: Gastric Reflux Sodium Chloride (0.9 % Sodium Chloride Flush 3 Ml Syringe) 3 ml IVFLUSH QSHIFT [facility] Last Admin: 10/20/22 08:09 Dose: 3 ml Documented By: ISAAC Tiotropium [place] (Tiotropium [place] 18 Mcg Cap.W.Dev) 1 puff INHALE RDAILY [facility] Last Admin: 10/20/22 07:24 Dose: 1 puff Documented By: ULRICC Labs 10/19/22 06:16 10/20/22 05:30 Labs: Laboratory Results - last 24 hr 10/19/22 10/19/22 10/20/22 16:15 20:55 05:30 Anion Gap 17 Estim Creat Clear Calc 22.9 Estimated GFR 14 POC Glucose 120 H 108 Random Glucose 71 Calcium 8.8 B-Natriuretic Peptide 10/20/22 10/20/22 10/20/22 05:30 07:17 11:31 Anion Gap Estim Creat Clear Calc Estimated GFR POC Glucose 78 105 Random Glucose Calcium B-Natriuretic Peptide 1431 H Assessment and Plan (1) Cirrhosis: Status: Acute (2) Pulmonary hypertension: Status: Acute (3) Acute on chronic diastolic CHF (congestive heart failure), NYHA class 3: Status: Acute Plan 67-year-old male with a PMH significant for?CKD stage 4 not on dialysis, [id number] diabetes type 2, COPD, HTN, HLD, ZEYAD, and AFib on Eliquis who presents to the ED with?worsening SOB with exertion for the past week. Pt will be admitted to the hospital treatment and further evaluation of acute CHF exacerbation. Acute HFpEF exacerbation,boderline bP Patient with SOB, 12 lb weight gain in past week, increased lower leg and abdominal edema, elevated BNP, CXR with evidence of pulmonary edema Follow lytes, mg, I/O( we will place garcia) neg 16 liters Daily weights(today weight 133kg), low-salt diet Last echocardiogram on 09/25/2022 found low normal LV systolic function with mild LVH and at least grade 2 diastolic dysfunction producing urine but difficult to collect in the urinal and also difficult to place urine a get tighter because of significant penile? swelling sob improving, overall sweling/lower ext swellin slightly improving, bnp trending up Cardiology consult-seems improving significantly with lasix drip /dimox -will d/w nephro -if need able to switch po diuretics ? , bnp improving, i/o strict, hold bp meds:amlodipine /bb/imdure . previous Ct scan showed ascitis /? possible liver cirrosis : added GI eval for further input Monitor on telemetry Hyperphosphatemia Patient's phosphorus? flactuating 5.8,improving, likely secondary to patient's CKD Low phosphorus diet Follow phosphorus levels CKD stage 4 Patient creatinine 4.14, estimated GFR 15 Stable, at baseline Nephrology consult- may need hd/permacath . Paroxysmal atrial fibrillation Continue metoprolol Eliquis added back ,moniter any brusing Non insulin-dependent diabetes type 2, diet-controlled Patient not on home meds Cover with sliding scale insulin HTN Continue amlodipine COPD Not in acute exacerbation Continue home inhalers woserning anemia of aocd(ckd) given 2 prbc h/h 03/11.7 DNI inpatient need:acute HFpEF exacerbation , still has fluid overload-with IV diuretics and specialist consults, electrolytic monitering Time Spent With Patient Time: Total time managing care of this patient today ____ minutes. Quality Stroke Does the patient have a stroke diagnosis?: No VTE Prior VTE?: No VTE Risk Level:: Medical - moderate - high VTE Device Contraindication: Treatment Not Indicated VTE Drug Contraindication: N/A - Med Ordered
--- NOTE | 2022-10-20 16:10 | PM.PNNEP ---
Subjective Subjective Date of Service: 10/20/22 Principal diagnosis: Decompensated heart failure Interval history: Seen and examined,e vents noted Physical Exam Vital Signs: Vital Signs: Last Vital Signs Temp 98.2 F 10/20/22 15:24 Pulse 89 10/20/22 15:24 Resp 14 10/20/22 15:24 BP 131/73 10/20/22 15:24 Pulse Ox 96 10/20/22 15:24 O2 Del Method Room Air 10/20/22 15:24 BMI result Body Mass Index 40.8 Const: General: cooperative, no acute distress, alert, awake and in distress mild and respiratory Nutritional Appearance: well nourished and obese Orientation/consciousness: patient oriented x3 HEENT: Head: Yes normocephalic and Yes atraumatic Throat: Yes posterior oropharynx normal Eyes: Eyelids: Yes eyelids normal Conjunctivae: conjunctivae normal Sclerae: sclerae normal Corneas: corneas normal Pupils: Equal, round and reactive pupils present EOM: EOMs intact bilaterally Neck: Neck: Yes full ROM, Yes trachea midline, Yes supple and Yes JVD (Improving) Resp: Other: Diminished without adventitious breath sounds Effort & Inspection: normal respiratory effort, able to speak in complete sentences, no audible wheezes and not labored Auscultation: clear to auscultation bilaterally, no crackles, no rales, no rhonchi, no wheezes and diminished lung sounds Cardio: Jugular venous distension: JVD Rate: regular rate Rhythm: regular rhythm Heart sounds: S1 normal heart sound present, S2 normal heart sound present, no click, no gallops, no murmurs and no rubs GI: Inspection: Yes Abdominal wall edema and Yes distended Palpation (GI): Soft to palpation, nontender and no guarding Auscultation: normal bowel sounds and normoactive bowel sounds Skin: Other: Superficial approximately 3 cm wound to the right lower leg. No surrounding erythema or drainage from the wound General skin exam: no rashes or lesions noted and elasticity normal Neuro: General: patient oriented x3 Cranial nerves: Yes CN's II-XII intact bilaterally, Yes Equal, round and reactive pupils present and Yes Bilaterally intact EOM present Cognition (Neuro): normal cognition Extrem: Other: Moving all extremities well without any obvious deformities General: No clubbing, No cyanosis and Yes edema (Improving) Objective Data Labs 10/19/22 06:16 10/20/22 05:30 Labs: Laboratory Results - last 24 hr 10/19/22 10/19/22 10/20/22 16:15 20:55 05:30 Sodium 141 Potassium 3.4 Chloride 103 Carbon Dioxide 24 Anion Gap 17 BUN 107 H Creatinine 4.23 H* Estim Creat Clear Calc 22.9 Estimated GFR 14 POC Glucose 120 H 108 Random Glucose 71 Calcium 8.8 B-Natriuretic Peptide 10/20/22 10/20/22 10/20/22 05:30 07:17 11:31 Sodium Potassium Chloride Carbon Dioxide Anion Gap BUN Creatinine Estim Creat Clear Calc Estimated GFR POC Glucose 78 105 Random Glucose Calcium B-Natriuretic Peptide 1431 H Microbiology Microbiology Results: Microbiology 10/14/22 Unknown Urine clean catch - Urine keys top Urine Culture - Final Procedures Date of Service Date of Service: 10/20/22 Assessment & Plan Assessment and plan (1) Congestive heart failure: Status: Acute (2) Shortness of breath: Status: Acute (3) CKD (chronic kidney disease) stage 4, GFR 15-29 ml/min: Status: Acute Plan 67-year-old man with advanced renal failure approaching ESRD admitted with fluid overload. Reviewing records SCR 2.0- 3.0 range 11/2021 and then adm in 09/2022 and SCr now 4.0 -5.0 range; h/o liver cirrhosis and HFpEF and urine studies benign 1. Adv CKD: SCr appears at BSL; etiol of adv CKD not clear but doubt a kidney Bx will hange management 2. Hypervol: diuresing on IV lasix and ? 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 Progress Note: Quality Stroke Does the patient have a stroke diagnosis?: No
[2022-10-20 17:09] LABS: Glucose, Whole Blood 102 mg/dL (60-115)
[2022-10-20] MEDS: Doxazosin Mesylate 2 MG TABLET 4 MG PO (21:09)
[2022-10-20] MEDS: Pravastatin Sodium 20 MG TABLET PO (21:12)
[2022-10-20 21:16] LABS: Glucose, Whole Blood 97 mg/dL (60-115)
[2022-10-21] VITALS (8 sets, daily range): BP systolic 125–140; BP diastolic 59–88; PULSE 57–98; RESP 15–20; TEMP 36.2–37.3; O2SAT 96–98
[2022-10-21 05:04] LABS: Hematocrit 26.6 % (42.0-52.0); Mean Corpuscular HGB Conc 33.8 g/dl (31.0-36.0); Mean Corpuscular Hemoglobin 32.8 pg (27.0-33.0); Mean Corpuscular Volume 97.1 fL (80.0-98.0); Mean Platelet Volume 10.8 fL (9.4-12.4); Red Blood Count 2.74 X10*6/uL (4.60-5.80); White Blood Count 5.6 X10*3/uL (4.8-10.8)
[2022-10-21 05:07] LABS: Platelet Count 91 X10*3/uL (160-400)
[2022-10-21 05:31] LABS: Alanine Aminotransferase 5 U/L (0-40); Albumin Level 3.2 g/dL (3.5-5.0); Alkaline Phosphatase 114 U/L (39-117); Anion Gap 17 (12-20); Aspartate Amino Transferase 11 U/L (5-37); Bilirubin Direct 0.4 mg/dL (0.0-0.5); Blood Urea Nitrogen 109 mg/dL (9-16); Calcium 8.6 mg/dL (8.4-10.2); Carbon Dioxide 25 mmol/L (22-29); Chloride 102 mmol/L (96-108); Creatinine Clr Calc Pharmacy 23.8; Estimated Glomerular Filt Rate 15; Glucose Random 77 mg/dL (60-115); Potassium 3.1 mmol/L (3.3-5.1); Sodium 141 mmol/L (135-145); Total Protein 5.7 g/dL (6.5-8.0)
[2022-10-21 07:12] LABS: Glucose, Whole Blood 82 mg/dL (60-115)
[2022-10-21] MEDS: Salmeterol Xinafoate 50 MCG BLST.W.DEV 1 PUFF INHALE ×2 (08:24→19:57)
[2022-10-21] MEDS: calcitrioL 0.25 MCG CAPSULE 0.5 MCG PO (09:25)
[2022-10-21] MEDS: Potassium Chloride ER 20 MEQ TAB.ER.PRT 40 MEQ PO (09:25)
[2022-10-21] MEDS: metOLazone 2.5 MG TABLET PO (09:26)
[2022-10-21] MEDS: Torsemide 20 MG TABLET 100 MG PO (09:26)
[2022-10-21] MEDS: 0.9 % Sodium Chloride Flush 3 ML SYRINGE IVFLUSH ×3 (09:27→21:15)
[2022-10-21] MEDS: Ferrous Sulfate 324 MG TABLET.DR PO (09:27)
[2022-10-21] MEDS: Apixaban 2.5 MG TABLET PO ×2 (09:27→21:04)
[2022-10-21] MEDS: acetaZOLAMIDE 250 MG TABLET PO ×2 (09:27→21:04)
--- NOTE | 2022-10-21 10:22 | P.CNGI_ITS ---
History of Present Illness Data of Consult Service Date: 10/21/22 Requesting physician: Andrae Rockwell Primary Care Provider: Steve Nguyen MD HPI Reason for consult: ?cirrhosis ?67-year-old male with hx of ?CKD stage 4 not on dialysis, [id number] diabetes type 2, COPD, HTN, HLD, ZEYAD, and AFib on Eliquis, and pacemaker insertion who I am seeing for assessment for abn imaging. Patient initially presented with dyspnea and weight gain with leg edema. No fever, chills, nausea, vomiting, diarrhea, abdominal pain.? Patient denies orthopnea or paroxysmal nocturnal dyspnea. He had an echo confirming severe pulm HTN with TR 09/2022. He had imaging with CT 09/2022-- which had suggestion of nodular liver and small ascites. He had been placed on Iv lasix drip with good results. He has never been a heavy drinker, LFt have been normal, AMA and hep serologies neg Review of Systems Review of Systems: Constitutional : No Weight loss, No Fever, No Chills ENT/Mouth : No sore throat, No Rhinorrhea Eyes: No Swelling, No Redness Cardiovascular : No Chest Pain, + SOB, + Edema Respiratory : + Cough, No Sputum, No Wheezing Gastrointestinal : see HPI Genitourinary : NO Dysuria, No Urinary Frequency, No Hematuria, No Urgency Musculoskeletal : No joint pain, No Myalgias, No Joint Swelling Skin : No Skin Lesions, No rash Neuro : No Weakness, No Numbness, No Dizziness, No Headache Psych : No Anxiety/Panic, No Depression Heme/Lymph: No Bruising, No Lymphadenopathy Endocrine : No Polyuria, No Polydipsia All other systems reviewed and are negative. [facility] Past Medical History Medical History (Updated 10/20/22 @ 11:09 by Jaylen Cornell MD) Acute kidney injury superimposed on chronic kidney disease Afib Anasarca Anemia Anemia BPH (benign prostatic hyperplasia) Bradycardia Chronic kidney disease Cirrhosis CKD (chronic kidney disease) stage 4, GFR 15-29 ml/min COPD (chronic obstructive pulmonary disease) Depression, major Diabetic retinopathy Diastolic heart failure Edema Essential thrombocytopenia Fistula Gout High cholesterol HTN (hypertension) Hypercholesterolemia Incomplete emptying of bladder due to benign prostatic hyperplasia Lumbar degenerative disc disease Lymphedema Obesity (BMI 30-39.9) Obstructive sleep apnea Osteoarthritis Pacemaker Pancytopenia Paroxysmal A-fib Peripheral neuropathy Peripheral vascular disease Pulmonary hypertension Pulmonary hypertension Scrotal edema SLE (systemic lupus erythematosus related syndrome) Type 2 diabetes mellitus with hyperglycemia Venous stasis dermatitis Family History Family History Father Prostate cancer CVD (cardiovascular disease) Mother Hemochromatosis Brother Motor vehicle accident Sister CAD (coronary artery disease) Maternal Grandfather Myocardial infarction Surgical History Surgical History H/O prior ablation treatment History of bilateral cataract extraction History of bowel diversion surgery History of carpal tunnel release History of gastric surgery History of tonsillectomy Social History Social History Household Members: Spouse Housing: House Do you presently have visiting nurse or other home services: Yes Alcohol intake: never Patient Tobacco Use Status: Former Tobacco user Tobacco use type: Cigarette Smoked in Last 30 Days: No e-Cigarette/Vaping Use: Former Use Patient Interested in Nicotine Replacement: No Patient Given Instructions on How to Stop Smoking: No Second Hand Smoke Exposure: Yes Use of substances other than those prescribed or required for medical reasons: No Substance Use Type: Marijuana Currently Displaying Signs/Symptoms of Drug Intoxication Withdrawal: No Any prior treatment program specific to substance use: No Have you been hit, kicked, punched, or otherwise hurt by someone within the past year? If so, by whom?: No Do you feel safe in your current relationship?: Yes Is there a partner from a previous relationship who is making you feel unsafe now?: No Are you made to feel afraid or neglected: No Advance Directives: No Advance Directives Information Provided: Yes Do you have thoughts of harming others: None Do you have a plan to hurt others: No Plan Recently lost weight without trying: Unsure How much weight loss: Unsure Eating poorly because of decreased appetite: Yes Nutrition screen score: 5 Nutrition Risks: Recent weight gain Poor oral hygiene: No service: No Current occupational status: retired Cognitive needs: Yes Hearing needs: Yes Vision needs: Yes Meds Allergies Allergy/AdvReac Type Severity Reaction Status Date / Time No Known Allergies Allergy Verified 10/13/22 17:04 [No Known Allergies*] Active Medications: Current Medications Acetaminophen (Acetaminophen 325 Mg Tablet) 650 mg PO Q6H PRN PRN Reason: Pain, Mild (Pain Scale 1-3) Acetazolamide (Acetazolamide 250 Mg Tablet) 250 mg PO BID [facility] Last Admin: 10/21/22 09:27 Dose: 250 mg Albuterol Sulfate (Albuterol Sulfate 90 Mcg 8 Gm Inhaler) 2 puff INHALE Q4H PRN PRN Reason: Shortness Of Breath Or Wheezing Apixaban (Apixaban 2.5 Mg Tablet) 2.5 mg PO BID [facility] Last Admin: 10/21/22 09:27 Dose: 2.5 mg Calcitriol (Calcitriol 0.25 Mcg Capsule) 0.5 mcg PO DAILY [facility] Last Admin: 10/21/22 09:25 Dose: 0.5 mcg Clotrimazole (Clotrimazole 1 % Cream 15 Gm Tube) 1 appl TOPICAL BID [facility]; Protocol Last Admin: 10/21/22 09:31 Dose: Not Given Docusate Sodium (Docusate Sodium 100 Mg Capsule) 100 mg PO DAILY PRN PRN Reason: Constipation Doxazosin Mesylate (Doxazosin Mesylate 2 Mg Tablet) 4 mg PO BEDTIME [facility] Last Admin: 10/20/22 21:09 Dose: 4 mg Ferrous Sulfate (Ferrous Sulfate 324 Mg Tablet.Dr) 324 mg PO DAILY [facility] Last Admin: 10/21/22 09:27 Dose: 324 mg Glucose (Glucose Gel 15 Gm Gel..Gram.) 15 gm PO Q15M PRN; Protocol PRN Reason: per Hypoglycemia Standing Ord. Dextrose (D10) 250 mls @ 750 mls/hr IV Q15M PRN; Protocol PRN Reason: per Hypoglycemia Standing Ord. Insulin Human Lispro (Insulin Lispro 100 Unit/Ml 3 Ml Vial) 0 unit SUBCUT QIDACHS [facility]; Protocol Last Admin: 10/21/22 07:36 Dose: Not Given Isosorbide Mononitrate (Isosorbide Mononitrate 30 Mg Tab.Er.24h) 30 mg PO DAILY [facility]; Protocol Last Admin: 10/14/22 09:29 Dose: 30 mg Lactic Acid (Ammonium Lactate 12 % Cream 140 Gm Tube) 1 appl TOPICAL BID PRN; Protocol PRN Reason: Dry Skin Metolazone (Metolazone 2.5 Mg Tablet) 2.5 mg PO DAILY [facility] Last Admin: 10/21/22 09:26 Dose: 2.5 mg Metoprolol Tartrate (Metoprolol Tartrate 12.5 Mg Halftab) 12.5 mg PO BID [facility]; Protocol Last Admin: 10/14/22 09:28 Dose: 12.5 mg Nystatin (Nystatin Powder 15 Gm Bottle) 1 appl TOPICAL BID [facility]; Protocol Last Admin: 10/21/22 09:31 Dose: Not Given Ondansetron HCl (Ondansetron Hcl 4 Mg/2 Ml Vial) 4 mg IVPUSH Q8H PRN PRN Reason: Nausea and Vomiting Pharmacy Consult (Consult Rx Perform Med Rec) 1 each MISCELLANE ONCE PRN PRN Reason: Consult order Polyethylene Glycol (Polyethylene Glycol 3350 17 Gm Powd.Pack) 17 gm PO DAILY PRN PRN Reason: Constipation Pravastatin Sodium (Pravastatin Sodium 20 Mg Tablet) 20 mg PO BEDTIME [facility] Last Admin: 10/20/22 21:12 Dose: 20 mg Salmeterol Xinafoate (Salmeterol Xinafoate 50 Mcg Blst.W.Dev) 1 puff INHALE RBID [facility] Last Admin: 10/21/22 08:24 Dose: 1 puff Sodium Bicarbonate (Sodium Bicarbonate 650 Mg Tablet) 650 mg PO QID PRN PRN Reason: Gastric Reflux Sodium Chloride (0.9 % Sodium Chloride Flush 3 Ml Syringe) 3 ml IVFLUSH QSHIFT [facility] Last Admin: 10/21/22 09:27 Dose: 3 ml Tiotropium [place] (Tiotropium [place] 18 Mcg Cap.W.Dev) 1 puff INHALE RDAILY [facility] Last Admin: 10/21/22 08:25 Dose: Not Given Torsemide (Torsemide 20 Mg Tablet) 100 mg PO DAILY [facility]; Protocol Last Admin: 10/21/22 09:26 Dose: 100 mg Home Medications Medication Instructions Recorded Confirmed Last Taken Type calcitriol 0.5 mcg capsule 0.5 mcg PO DAILY 04/03/20 10/13/22 10/13/22 History albuterol sulfate 90 mcg/actuation 2 puff inhalation Q4H PRN 07/05/20 10/13/22 10/13/22 History aerosol inhaler (ProAir HFA) Shortness Of Breath Or Wheezing sodium bicarbonate 650 mg tablet 650 mg PO QID PRN Gastric Reflux 09/22/22 10/13/22 10/13/22 History polyethylene glycol 3350 17 gram 17 g PO DAILY PRN Constipation 09/24/22 10/13/22 10/13/22 History oral powder packet (Miralax) terazosin 5 mg capsule 5 mg PO BEDTIME 10/13/22 10/13/22 10/13/22 History Physical Exam Vital Signs: Vital Signs: Last Vital Signs Temp 99.2 F 10/21/22 07:14 Pulse 57 10/21/22 08:25 Resp 18 10/21/22 08:25 BP 132/69 10/21/22 07:14 Pulse Ox 96 10/21/22 07:14 O2 Del Method Room Air 10/21/22 07:14 BMI result Body Mass Index 40.8 EXAM: GENERAL: The patient is obese, frail appearing VITAL SIGNS:see workflow HEENT: Nonicteric sclerae, PERRLA, EOMI. Oropharynx clear. Moist mucous membranes. Conjunctivae appear well perfused. No thyroid mass. CHEST: Chest wall is nontender. HEART: Regular rate and rhythm without murmurs. LUNGS: Clear to auscultation bilaterally. ABDOMEN: Soft, positive bowel sounds, nontender, no organomegaly.no flank tenderness SKIN: No rash, no excessive bruising, petechiae, or purpura. NEUROLOGIC: Cranial nerves II-XII intact without motor/sensory deficit. Legs: edema ++ Results Labs 10/21/22 04:31 10/21/22 04:30 Labs: Short CBC 10/21/22 Range/Units 04:31 WBC 5.6 (4.8-10.8) X10*3/uL Hgb 9.0 L (14.0-18.0) g/dl Hct 26.6 L (42.0-52.0) % Plt Count 91 L (160-400) X10*3/uL BMP 10/21/22 04:30 Sodium 141 Potassium 3.1 L Chloride 102 Carbon Dioxide 25 BUN 109 H Creatinine 4.06 H* Calcium 8.6 Liver Function 10/21/22 Range/Units 04:30 Total Bilirubin 1.0 (0.0-1.0) mg/dL Direct Bilirubin 0.4 (0.0-0.5) mg/dL AST 11 (5-37) U/L ALT 5 (0-40) U/L Alkaline Phosphatase 114 (39-117) U/L Albumin 3.2 L (3.5-5.0) g/dL Microbiology Microbiology Results: Microbiology 10/14/22 Unknown Urine clean catch - Urine keys top Urine Culture - Final Imaging CT scan - abdomen: My impression: irregular liver, ascites, atherosclerosis, CT 09/2022 Assessment and Plan (1) Pulmonary hypertension: Status: Acute (2) Cirrhosis: Status: Acute (3) Acute on chronic diastolic CHF (congestive heart failure), NYHA class 3: Status: Acute Plan 1/ Nodular liver on imaging with nml LFT, most likely 2/2 to cor pulmonale and right heart failure, may also have NRH, ddx: infiltrative liver disease e.g amyloid or sarcoid but much less likely, TOMLINSON related but LFT totally normal --neg Hep serologies, and unimpressive alcohol hx 2/ anemia, from combination of CKD and liver disease PLAN: 1/ cont with treatment for hert failure 2/ would hold on liver biopsy at this time, can tap ascites and measure albumina and total protein in ascites for SAAG, cell counts 3/ his CKD and cardiac issues take precedence, can see as o/p for further assessement Time Spent With Patient Time: Total time managing care of this patient today ____ minutes. Procedures Date of Service Date of Service: 10/21/22
[2022-10-21 11:18] LABS: Glucose, Whole Blood 102 mg/dL (60-115)
--- NOTE | 2022-10-21 16:19 | P.PNIM_ITS ---
Subjective Subjective Date of Service: 10/21/22 Interval History: Acute HFpEF exacerbation,ckd 4 Review of Systems swelling leg/scrotum/upper thigh little improvin denies any chest pain or sob sofar i/o :16 liter neg Physical Exam Vital Signs: Vital Signs: Last Vital Signs Temp 97.2 F 10/21/22 15:09 Pulse 89 10/21/22 15:09 Resp 15 10/21/22 15:09 BP 139/88 10/21/22 15:09 Pulse Ox 98 10/21/22 15:09 O2 Del Method Room Air 10/21/22 15:09 BMI result Body Mass Index 40.8 Appearing in no acute distress lung sounds are clear to auscultation heart regular rate rhythm, clear S1, S2 positive bowel sounds, abdomen is soft, nontender neuro patient is alert x3, no focal deficits Objective Data Active Medications Acetaminophen (Acetaminophen 325 Mg Tablet) 650 mg PO Q6H PRN PRN Reason: Pain, Mild (Pain Scale 1-3) Acetazolamide (Acetazolamide 250 Mg Tablet) 250 mg PO BID [facility] Last Admin: 10/21/22 09:27 Dose: 250 mg Documented By: ISAAC Albuterol Sulfate (Albuterol Sulfate 90 Mcg 8 Gm Inhaler) 2 puff INHALE Q4H PRN PRN Reason: Shortness Of Breath Or Wheezing Apixaban (Apixaban 2.5 Mg Tablet) 2.5 mg PO BID [facility] Last Admin: 10/21/22 09:27 Dose: 2.5 mg Documented By: ISAAC Calcitriol (Calcitriol 0.25 Mcg Capsule) 0.5 mcg PO DAILY [facility] Last Admin: 10/21/22 09:25 Dose: 0.5 mcg Documented By: ISAAC Clotrimazole (Clotrimazole 1 % Cream 15 Gm Tube) 1 appl TOPICAL BID [facility]; Protocol Last Admin: 10/21/22 09:31 Dose: Not Given Documented By: ISAAC Non-Admin Reason: Previously Administered Docusate Sodium (Docusate Sodium 100 Mg Capsule) 100 mg PO DAILY PRN PRN Reason: Constipation Doxazosin Mesylate (Doxazosin Mesylate 2 Mg Tablet) 4 mg PO BEDTIME [facility] Last Admin: 10/20/22 21:09 Dose: 4 mg Documented By: TONE Ferrous Sulfate (Ferrous Sulfate 324 Mg Tablet.) 324 mg PO DAILY [facility] Last Admin: 10/21/22 09:27 Dose: 324 mg Documented By: ISAAC Glucose (Glucose Gel 15 Gm Gel..Gram.) 15 gm PO Q15M PRN; Protocol PRN Reason: per Hypoglycemia Standing Ord. Dextrose (D10) 250 mls @ 750 mls/hr IV Q15M PRN; Protocol PRN Reason: per Hypoglycemia Standing Ord. Insulin Human Lispro (Insulin Lispro 100 Unit/Ml 3 Ml Vial) 0 unit SUBCUT QIDACHS [facility]; Protocol Last Admin: 10/21/22 11:25 Dose: Not Given Documented By: ISAAC Non-Admin Reason: No Insulin Coverage Isosorbide Mononitrate (Isosorbide Mononitrate 30 Mg Tab.Er.24h) 30 mg PO DAILY [facility]; Protocol Last Admin: 10/14/22 09:29 Dose: 30 mg Documented By: HALIE Lactic Acid (Ammonium Lactate 12 % Cream 140 Gm Tube) 1 appl TOPICAL BID PRN; Protocol PRN Reason: Dry Skin Metolazone (Metolazone 2.5 Mg Tablet) 2.5 mg PO DAILY [facility] Last Admin: 10/21/22 09:26 Dose: 2.5 mg Documented By: ISAAC Metoprolol Tartrate (Metoprolol Tartrate 12.5 Mg Halftab) 12.5 mg PO BID [facility]; Protocol Last Admin: 10/14/22 09:28 Dose: 12.5 mg Documented By: HALIE Nystatin (Nystatin Powder 15 Gm Bottle) 1 appl TOPICAL BID [facility]; Protocol Last Admin: 10/21/22 09:31 Dose: Not Given Documented By: ISAAC Non-Admin Reason: Previously Administered Ondansetron HCl (Ondansetron Hcl 4 Mg/2 Ml Vial) 4 mg IVPUSH Q8H PRN PRN Reason: Nausea and Vomiting Pharmacy Consult (Consult Rx Perform Med Rec) 1 each MISCELLANE ONCE PRN PRN Reason: Consult order Polyethylene Glycol (Polyethylene Glycol 3350 17 Gm Powd.Pack) 17 gm PO DAILY PRN PRN Reason: Constipation Pravastatin Sodium (Pravastatin Sodium 20 Mg Tablet) 20 mg PO BEDTIME [facility] Last Admin: 10/20/22 21:12 Dose: 20 mg Documented By: TONE Salmeterol Xinafoate (Salmeterol Xinafoate 50 Mcg Blst.W.Dev) 1 puff INHALE RBID [facility] Last Admin: 10/21/22 08:24 Dose: 1 puff Documented By: DESTINY Sodium Bicarbonate (Sodium Bicarbonate 650 Mg Tablet) 650 mg PO QID PRN PRN Reason: Gastric Reflux Sodium Chloride (0.9 % Sodium Chloride Flush 3 Ml Syringe) 3 ml IVFLUSH QSHIFT [facility] Last Admin: 10/21/22 09:27 Dose: 3 ml Documented By: ISAAC Tiotropium [place] (Tiotropium [place] 18 Mcg Cap.W.Dev) 1 puff INHALE RDAILY [facility] Last Admin: 10/21/22 08:25 Dose: Not Given Documented By: DESTINY Non-Admin Reason: Med Not Available Torsemide (Torsemide 20 Mg Tablet) 100 mg PO DAILY [facility]; Protocol Last Admin: 10/21/22 09:26 Dose: 100 mg Documented By: ISAAC Labs 10/21/22 04:31 10/21/22 04:30 Labs: Laboratory Results - last 24 hr 10/20/22 10/20/22 10/21/22 16:58 21:11 04:30 MCV MCH MCHC RDW Plt Count MPV Absolute Nucleated RBC Nucleated RBC % (auto) Anion Gap 17 Estim Creat Clear Calc 23.8 Estimated GFR 15 POC Glucose 102 97 Random Glucose 77 Calcium 8.6 Total Bilirubin 1.0 Direct Bilirubin 0.4 AST 11 ALT 5 Alkaline Phosphatase 114 Total Protein 5.7 L Albumin 3.2 L 10/21/22 10/21/22 10/21/22 04:31 07:08 11:11 MCV 97.1 MCH 32.8 MCHC 33.8 RDW 16.0 Plt Count 91 L MPV 10.8 Absolute Nucleated RBC 0.000 Nucleated RBC % (auto) 0.0 Anion Gap Estim Creat Clear Calc Estimated GFR POC Glucose 82 102 Random Glucose Calcium Total Bilirubin Direct Bilirubin AST ALT Alkaline Phosphatase Total Protein Albumin Assessment and Plan (1) Cirrhosis: Status: Acute (2) Pulmonary hypertension: Status: Acute (3) Acute on chronic diastolic CHF (congestive heart failure), NYHA class 3: Status: Acute Plan 67-year-old male with a PMH significant for?CKD stage 4 not on dialysis, [id number] diabetes type 2, COPD, HTN, HLD, ZEYAD, and AFib on Eliquis who presents to the ED with?worsening SOB with exertion for the past week. Pt will be admitted to the hospital treatment and further evaluation of acute CHF exacerbation. Diarrhea check stool studies and cdiff Acute HFpEF exacerbation. Resolving Last echocardiogram EF 55% Mod dystolic dysfunction, pulm htn BNP 1431 neg 19+L so far now on Torsemide 100mg daily cardiology following Liver cirrhosis nodular liver noted with normal LFT likely secondary to cor pulmonale and right heart failure neg hep panel and no pertinent alcohol history GI following>continue tx for CHF, no need for liver biopsy at this time check abd us for ascites, if enough, tap and check cell counts Hyperphosphatemia phosphorus?fluctuating, 5.8, likely secondary to patient's CKD Low phosphorus diet check phos in am CKD stage 4 Patient creatinine 4.06 Nephrology following>hold off on starting HD for now 24hr urine started 10/21/22, depending on result may dictate when to start dialysis (possibly this admission) Has Pcath to right chest Paroxysmal atrial fibrillation Continue metoprolol and eliquis Non insulin-dependent diabetes type 2, diet-controlled ss, ada diet HTN Continue amlodipine COPD No acute exacerbation Continue home inhalers acute on chronic anemia secondary to CKD and liver disease s/p 2 units prbc h/h 9.0/26.6 DVT prophylaxis with Caterina Attending Dr. Whitley DNI DISPO PT consult, encourage OOB to chair. Lives with , goal is home when medically clear inpatient need:acute HFpEF exacerbation , still has fluid overload-with IV diuretics and specialist consults, electrolytic monitering Time Spent With Patient Time: Total time managing care of this patient today ____ minutes. Quality Stroke Does the patient have a stroke diagnosis?: No VTE Prior VTE?: No VTE Risk Level:: Medical - moderate - high VTE Device Contraindication: Treatment Not Indicated VTE Drug Contraindication: N/A - Med Ordered
--- NOTE | 2022-10-21 16:24 | PM.PNNEP ---
Subjective Subjective Date of Service: 10/21/22 Principal diagnosis: Decompensated heart failure Interval history: Seen and exmined Physical Exam Vital Signs: Vital Signs: Last Vital Signs Temp 97.2 F 10/21/22 15:09 Pulse 89 10/21/22 15:09 Resp 15 10/21/22 15:09 BP 139/88 10/21/22 15:09 Pulse Ox 98 10/21/22 15:09 O2 Del Method Room Air 10/21/22 15:09 BMI result Body Mass Index 40.8 Const: General: cooperative, no acute distress, alert, awake and in distress mild and respiratory Nutritional Appearance: well nourished and obese Orientation/consciousness: patient oriented x3 HEENT: Head: Yes normocephalic and Yes atraumatic Throat: Yes posterior oropharynx normal Eyes: Eyelids: Yes eyelids normal Conjunctivae: conjunctivae normal Sclerae: sclerae normal Corneas: corneas normal Pupils: Equal, round and reactive pupils present EOM: EOMs intact bilaterally Neck: Neck: Yes full ROM, Yes trachea midline, Yes supple and Yes JVD (Improving) Resp: Other: Diminished without adventitious breath sounds Effort & Inspection: normal respiratory effort, able to speak in complete sentences, no audible wheezes and not labored Auscultation: clear to auscultation bilaterally, no crackles, no rales, no rhonchi, no wheezes and diminished lung sounds Cardio: Jugular venous distension: JVD Rate: regular rate Rhythm: regular rhythm Heart sounds: S1 normal heart sound present, S2 normal heart sound present, no click, no gallops, no murmurs and no rubs GI: Inspection: Yes Abdominal wall edema and Yes distended Palpation (GI): Soft to palpation, nontender and no guarding Auscultation: normal bowel sounds and normoactive bowel sounds Skin: Other: Superficial approximately 3 cm wound to the right lower leg. No surrounding erythema or drainage from the wound General skin exam: no rashes or lesions noted and elasticity normal Neuro: General: patient oriented x3 Cranial nerves: Yes CN's II-XII intact bilaterally, Yes Equal, round and reactive pupils present and Yes Bilaterally intact EOM present Cognition (Neuro): normal cognition Extrem: Other: Moving all extremities well without any obvious deformities General: No clubbing, No cyanosis and Yes edema (Improving) Objective Data Labs 10/21/22 04:31 05/09/23 04:30 Labs: Laboratory Results - last 24 hr 10/20/22 10/20/22 10/21/22 16:58 21:11 04:30 WBC RBC Hgb Hct MCV MCH MCHC RDW Plt Count MPV Absolute Nucleated RBC Nucleated RBC % (auto) Sodium 141 Potassium 3.1 L Chloride 102 Carbon Dioxide 25 Anion Gap 17 BUN 109 H Creatinine 4.06 H* Estim Creat Clear Calc 23.8 Estimated GFR 15 POC Glucose 102 97 Random Glucose 77 Calcium 8.6 Total Bilirubin 1.0 Direct Bilirubin 0.4 AST 11 ALT 5 Alkaline Phosphatase 114 Total Protein 5.7 L Albumin 3.2 L 10/21/22 10/21/22 10/21/22 04:31 07:08 11:11 WBC 5.6 RBC 2.74 L Hgb 9.0 L Hct 26.6 L MCV 97.1 MCH 32.8 MCHC 33.8 RDW 16.0 Plt Count 91 L MPV 10.8 Absolute Nucleated RBC 0.000 Nucleated RBC % (auto) 0.0 Sodium Potassium Chloride Carbon Dioxide Anion Gap BUN Creatinine Estim Creat Clear Calc Estimated GFR POC Glucose 82 102 Random Glucose Calcium Total Bilirubin Direct Bilirubin AST ALT Alkaline Phosphatase Total Protein Albumin Microbiology Microbiology Results: Microbiology 10/14/22 Unknown Urine clean catch - Urine keys top Urine Culture - Final Procedures Date of Service Date of Service: 10/21/22 Assessment & Plan Assessment and plan (1) Congestive heart failure: Status: Acute (2) Shortness of breath: Status: Acute (3) CKD (chronic kidney disease) stage 4, GFR 15-29 ml/min: Status: Acute Plan 67-year-old man with advanced renal failure approaching ESRD admitted with fluid overload. Reviewing records SCR 2.0- 3.0 range 11/2021 and then adm in 09/2022 and SCr now 4.0 -5.0 range; h/o liver cirrhosis and HFpEF and urine studies benign 1. Adv CKD: SCr appears at BSL; etiol of adv CKD not clear but doubt a kidney Bx will hange management 2. Hypervol: diuresing on IV lasix and ? approaching target WT to balance vol vs azotemia REC: hold off starting HD but suspect he wll need to start soon; 24 hr urine for combined CrCl and Urea Clearance and depending on htese results will look to start HD this adm Will leave Pcath in for now as likely will need to start CLINICAL REVIEWER in near future--possibly this hospoiitlization Time Spent With Patient Time: Total time managing care of this patient today ____ minutes. Progress Note: Quality Stroke Does the patient have a stroke diagnosis?: No
[2022-10-21 16:27] LABS: Glucose, Whole Blood 98 mg/dL (60-115)
[2022-10-21 20:41] LABS: CDiff Gene PCR POSITIVE (Negative)
[2022-10-21 20:50] LABS: Glucose, Whole Blood 86 mg/dL (60-115)
[2022-10-21] MEDS: Doxazosin Mesylate 2 MG TABLET 4 MG PO (21:04)
[2022-10-21] MEDS: Pravastatin Sodium 20 MG TABLET PO (21:04)
[2022-10-21 21:45] LABS: CDIFF Internal ctrl Dots and bkg OK (V)
[2022-10-21 21:48] LABS: CDiff Toxin Positive (Negative)
--- NOTE | 2022-10-21 21:54 | PM.EVENT ---
Event Note Date of Service: 10/21/22 Event Note: Was informed by the nurse that patient's stool studies came back positive for C diff. Will initiate p.o. vancomycin. Time Spent With Patient Time: Total time managing care of this patient today ____ minutes.
[2022-10-21] MEDS: vancomycin HCL 125 MG CAPSULE PO (22:04)
[2022-10-22] VITALS (7 sets, daily range): BP systolic 112–139; BP diastolic 65–98; PULSE 85–108; RESP 13–20; TEMP 36.1–36.8; O2SAT 96–97
[2022-10-22] MEDS: Acetaminophen 325 MG TABLET 650 MG PO (05:19)
[2022-10-22] MEDS: vancomycin HCL 125 MG CAPSULE PO ×2 (05:19→10:27)
[2022-10-22 06:22] LABS: Hematocrit 27.8 % (42.0-52.0); Hemoglobin 9.1 g/dl (14.0-18.0); Mean Corpuscular HGB Conc 32.7 g/dl (31.0-36.0); Mean Corpuscular Hemoglobin 31.7 pg (27.0-33.0); Mean Corpuscular Volume 96.9 fL (80.0-98.0); Mean Platelet Volume 10.9 fL (9.4-12.4); Platelet Count 94 X10*3/uL (160-400); Red Blood Count 2.87 X10*6/uL (4.60-5.80); Red Cell Distribution Width 15.8 % (11.0-16.0); White Blood Count 6.1 X10*3/uL (4.8-10.8)
[2022-10-22 06:41] LABS: Anion Gap 19 (12-20); Blood Urea Nitrogen 109 mg/dL (9-16); Calcium 8.6 mg/dL (8.4-10.2); Carbon Dioxide 25 mmol/L (22-29); Chloride 102 mmol/L (96-108); Creatinine Clr Calc Pharmacy 23.3; Estimated Glomerular Filt Rate 14; Glucose Random 71 mg/dL (60-115); Potassium 3.1 mmol/L (3.3-5.1); Sodium 143 mmol/L (135-145)
[2022-10-22 06:52] LABS: Phosphorus 6.6 mg/dL (2.7-4.5)
[2022-10-22] MEDS: Salmeterol Xinafoate 50 MCG BLST.W.DEV 1 PUFF INHALE ×2 (07:37→19:36)
[2022-10-22 07:48] LABS: Glucose, Whole Blood 75 mg/dL (60-115)
[2022-10-22] MEDS: metOLazone 2.5 MG TABLET PO (08:43)
[2022-10-22] MEDS: 0.9 % Sodium Chloride Flush 3 ML SYRINGE IVFLUSH ×2 (08:43→21:59)
[2022-10-22] MEDS: Torsemide 20 MG TABLET 100 MG PO (08:44)
[2022-10-22] MEDS: calcitrioL 0.25 MCG CAPSULE 0.5 MCG PO (08:44)
[2022-10-22] MEDS: acetaZOLAMIDE 250 MG TABLET PO (08:44)
[2022-10-22] MEDS: Ferrous Sulfate 324 MG TABLET.DR PO (08:44)
[2022-10-22] MEDS: Apixaban 2.5 MG TABLET PO ×2 (08:44→22:11)
[2022-10-22] MEDS: Lactulose 20 GM/30 ML SOLUTION 30 GM PO ×2 (08:45→21:49)
[2022-10-22] MEDS: Albumin Human 25 % 100 ML IV ×3 (08:45→21:48)
[2022-10-22] MEDS: rifAXIMin 550 MG TABLET PO ×2 (08:46→21:48)
[2022-10-22] MEDS: Nystatin Powder 15 GM BOTTLE 1 APPL TOPICAL ×2 (08:46→21:48)
[2022-10-22 09:17] LABS: Ammonia 51 umol/L (13-55)
--- NOTE | 2022-10-22 09:48 | PM.PNCARD ---
Subjective Subjective Date of Service: 10/22/22 Principal diagnosis: Decompensated heart failure Interval history: Patient seems fairly deconditioned. Repeatedly asked him how he felt and after some time, he finally stated that he was feeling okay. Seems tired, somewhat lethargic. Does not look like he has moved much at all. Review of Systems Review of Systems Yes all other systems are reviewed and are negative Constitutional: Reports as per HPI and Reports no additional constitutional complaints Eyes: Reports as per HPI and Denies no additional eye complaints Denies system reviewed and no additional complaints, except as documented and Reports as per HPI Cardiovascular: Reports as per HPI, Reports no additional cardiovascular complaints, Denies acrocyanosis, Denies cool extremities, Denies chest pain, Denies leg edema, Denies lightheadedness, Denies palpitations and Denies dyspnea Respiratory: Reports as per HPI, Denies no additional respiratory complaints and Denies dyspnea Gastrointestinal: Reports as per HPI and Denies no additional gastrointestinal complaints Genitourinary: Reports no additional male genitourinary complaints and Reports as per HPI Musculoskeletal: Reports no additional musculoskeletal complaints and Reports as per HPI Skin/Breast: Reports system reviewed and no additional complaints, except as docu Reports system reviewed and no additional complaints, except as documented and Reports as per HPI Psychiatric: Reports no additional psychiatric complaints and Reports as per HPI Endocrine: Reports no additional endocrine complaints, Reports as per HPI and Denies palpitations Hematologic/Lymphatic: Reports no additional hematologic/lymphatic complaints and Reports as per HPI Allergic/Immunologic: Reports no additional allergic/immunologic complaints and Reports as per HPI Physical Exam Vital Signs: Last Vital Signs Temp 97.6 F 10/22/22 07:06 Pulse 98 10/22/22 08:05 Resp 15 10/22/22 07:38 BP 112/71 10/22/22 07:06 Pulse Ox 96 10/22/22 07:06 O2 Del Method Room Air 10/22/22 07:06 BMI result Body Mass Index 40.8 Const General: comfortable, no acute distress, ill appearing, lethargic and tired appearing Orientation/consciousness: patient oriented x3 and lethargic HEENT Other: Unremarkable Head: Yes normal to inspection Neck Neck: Yes normal visual inspection Chest Chest palpation & inspection: normal inspection of the chest Resp Other: Inspiratory crackles but difficult to examine because of his positioning. Cardio Palpation: normal PMI Heart sounds: S1 normal heart sound present, S2 normal heart sound present, no gallops, no murmurs and no rubs GI Palpation (GI): Soft to palpation Back/Spine/Pelvis Other: unremarkable Skin General skin exam: no rashes or lesions noted Neuro General: patient oriented x3 Extrem Other: Chronic changes, mild edema. Psych Mental Status: mental status grossly normal Objective Labs and Meds 10/22/22 05:44 10/22/22 05:44 Lab results: Laboratory Results - last 24 hr 10/21/22 10/21/22 10/21/22 11:11 16:23 19:10 WBC RBC Hgb Hct MCV MCH MCHC RDW Plt Count MPV Absolute Nucleated RBC Nucleated RBC % (auto) Sodium Potassium Chloride Carbon Dioxide Anion Gap BUN Creatinine Estim Creat Clear Calc Estimated GFR POC Glucose 102 98 Random Glucose Calcium Phosphorus Ammonia C. difficile Tox B Gene POSITIVE A* C. difficile Toxin A&B Positive A* C. difficile Interpret SEE NOTE 10/21/22 10/22/22 10/22/22 20:40 05:44 05:44 WBC 6.1 RBC 2.87 L Hgb 9.1 L Hct 27.8 L MCV 96.9 MCH 31.7 MCHC 32.7 RDW 15.8 Plt Count 94 L MPV 10.9 Absolute Nucleated RBC 0.000 Nucleated RBC % (auto) 0.0 Sodium 143 Potassium 3.1 L Chloride 102 Carbon Dioxide 25 Anion Gap 19 BUN 109 H Creatinine 4.16 H* Estim Creat Clear Calc 23.3 Estimated GFR 14 POC Glucose 86 Random Glucose 71 Calcium 8.6 Phosphorus Ammonia C. difficile Tox B Gene C. difficile Toxin A&B C. difficile Interpret 10/22/22 10/22/22 10/22/22 05:44 07:35 08:55 WBC RBC Hgb Hct MCV MCH MCHC RDW Plt Count MPV Absolute Nucleated RBC Nucleated RBC % (auto) Sodium Potassium Chloride Carbon Dioxide Anion Gap BUN Creatinine Estim Creat Clear Calc Estimated GFR POC Glucose 75 Random Glucose Calcium Phosphorus 6.6 H Ammonia 51 C. difficile Tox B Gene C. difficile Toxin A&B C. difficile Interpret Imaging Radiologist's impression: Impressions Abdomen Ultrasound 10/21/22 18:01 IMPRESSION: Moderate amount of ascites. Progress Note: A&P Assessment and plan (1) Acute on chronic diastolic CHF (congestive heart failure), NYHA class 3: Status: Acute (2) Pulmonary hypertension: Status: Acute (3) CKD (chronic kidney disease) stage 4, GFR 15-29 ml/min: Status: Acute (4) Cirrhosis: Status: Acute Plan Per last echocardiogram, LVEF 55%. Moderate diastolic dysfunction. Basal inferior/apical septum hypokinesis. At least moderately dilated left atrium. Early aortic stenosis and mild mitral regurgitation. Significant pulmonary hypertension. CT abdomen shows cirrhotic liver, small to moderate amount of ascites. Renal function is quite abnormal with BUN of 109 and creatinine of 4.16. Overall, believe that his fluid retention is likely multifactorial from some combination of cardiac, liver as well as renal etiologies. With regard to the question of if the cirrhosis related to heart failure, probably less likely as he only has [id number] tricuspid regurgitation and with normal right heart function. Only way to definitively prove this will be with a liver biopsy. Overall, he seems quite deconditioned to me. He has been on a diuretics for quite some time with some improvement but in general, looks ill. So far, he has -22 L. Beyond this, no major cardiac indication to aggressively diurese. Need to set goals of care. If not already done, to discuss with family. Discussed with Dr. Mcmillan as well as Dr. Villafuerte. Time Spent With Patient Time: Total time managing care of this patient today 50 minutes. This includes time spent in review of chart, laboratory data, imaging studies, review of telemetry, counseling patient, discussion with hospitalist, Nephrology, RN, documentation, coordination of care. Progress Note: Quality Stroke Does the patient have a stroke diagnosis?: No Procedures Date of Service Date of Service: 10/22/22
--- NOTE | 2022-10-22 10:18 | MHC.CM.PN ---
Per ROUNDS discussion, Patient is not yet medically cleared for dc (new HD today, CDiff (+), needs Paracentesis); Patient will need PT eval to assist with disposition. CM will follow.
[2022-10-22 11:25] LABS: Adenovirus F 40/41 Not Detected (Not Detect.); Astrovirus Not Detected (Not Detect.); Campylobacter Not Detected (Not Detect.); Cryptosporidium Not Detected (Not Detect.); Cyclospora cayetanensis Not Detected (Not Detect.); E. coli EAEC Not Detected (Not Detect.); E. coli EPEC Not Detected (Not Detect.); E. coli ETEC Not Detected (Not Detect.); E. coli STEC Not Detected (Not Detect.); Entamoeba histolytica Not Detected (Not Detect.); Giardia lamblia Not Detected (Not Detect.); Norovirus GI/GII Not Detected (Not Detect.); Plesiomonas shigelloides Not Detected (Not Detect.); Rotavirus A Not Detected (Not Detect.); Salmonella Not Detected (Not Detect.); Sapovirus Not Detected (Not Detect.); Shigella sp./EIEC Not Detected (Not Detect.); Vibrio Not Detected (Not Detect.); Vibrio Cholerae Not Detected (Not Detect.); Yersinia enterocolitica Not Detected (Not Detect.)
[2022-10-22 12:23] LABS: HBS Num1 0.84 mIU/mL (0-7.99); HBsAGNum1 0.57 S/CO (0.00-0.99); Hepatitis B Surface Antigen Negative (Negative); ~Hepatitis B Surface Antibody NONREACTIVE (Nonreactive)
--- NOTE | 2022-10-22 12:37 | P.PNNP_ITS ---
Subjective Subjective Date of Service: 10/22/22 Principal diagnosis: Decompensated heart failure Interval history: Seen and exmined Physical Exam Vital Signs: Vital Signs: Last Vital Signs Temp 97.6 F 10/22/22 07:06 Pulse 98 10/22/22 08:05 Resp 15 10/22/22 07:38 BP 112/71 10/22/22 07:06 Pulse Ox 96 10/22/22 07:06 O2 Del Method Room Air 10/22/22 07:06 BMI result Body Mass Index 40.8 Const: General: cooperative, no acute distress, alert, awake and in distress mild and respiratory Nutritional Appearance: well nourished and obese Orientation/consciousness: patient oriented x3 HEENT: Head: Yes normocephalic and Yes atraumatic Throat: Yes posterior oropharynx normal Eyes: Eyelids: Yes eyelids normal Conjunctivae: conjunctivae normal Sclerae: sclerae normal Corneas: corneas normal Pupils: Equal, round and reactive pupils present EOM: EOMs intact bilaterally Neck: Neck: Yes full ROM, Yes trachea midline, Yes supple and Yes JVD (Improving) Resp: Other: Diminished without adventitious breath sounds Effort & Inspection: normal respiratory effort, able to speak in complete sentences, no audible wheezes and not labored Auscultation: clear to auscultation bilaterally, no crackles, no rales, no rhonchi, no wheezes and diminished lung sounds Cardio: Jugular venous distension: JVD Rate: regular rate Rhythm: regular rhythm Heart sounds: S1 normal heart sound present, S2 normal heart sound present, no click, no gallops, no murmurs and no rubs GI: Inspection: Yes Abdominal wall edema and Yes distended Palpation (GI): Soft to palpation, nontender and no guarding Auscultation: normal bowel sounds and normoactive bowel sounds Skin: Other: Superficial approximately 3 cm wound to the right lower leg. No surrounding erythema or drainage from the wound General skin exam: no rashes or lesions noted and elasticity normal Neuro: General: patient oriented x3 Cranial nerves: Yes CN's II-XII intact bilaterally, Yes Equal, round and reactive pupils present and Yes Bilaterally intact EOM present Cognition (Neuro): normal cognition Extrem: Other: Moving all extremities well without any obvious deformities General: No clubbing, No cyanosis and Yes edema (Improving) Objective Data Labs 10/22/22 05:44 05/10/23 05:44 Labs: Laboratory Results - last 24 hr 10/21/22 10/21/22 10/21/22 16:23 19:10 19:10 WBC RBC Hgb Hct MCV MCH MCHC RDW Plt Count MPV Absolute Nucleated RBC Nucleated RBC % (auto) Sodium Potassium Chloride Carbon Dioxide Anion Gap BUN Creatinine Estim Creat Clear Calc Estimated GFR POC Glucose 98 Random Glucose Calcium Phosphorus Ammonia Stl C. cayetanensis PCR Not Detected Stool Rotavirus A PCR Not Detected Stl Adenov F 40/ PCR Not Detected Stool Astrovirus (PCR) Not Detected Stool Campylobacter PCR Not Detected Stool Cryptosporidium PCR Not Detected Stl Sh Tox Pr E STEC PCR Not Detected Stool E coli O157 PCR Not applicable Stl Enterotoxigenic E PCR Not Detected Stool EPEC (PCR) Not Detected Stool EAEC (PCR) Not Detected Stl E. histolytica PCR Not Detected Stool Giardia Lamblia PCR Not Detected Stl P. shigelloides PCR Not Detected Stool Salmonella PCR Not Detected Stool Sapovirus (PCR) Not Detected Stl Shigella/EIEC PCR Not Detected St Y.enterocolitica PCR Not Detected Stool Vibrio (PCR) Not Detected Stl Vibrio cholerae PCR Not Detected Stl Norovirus GI/GII PCR Not Detected C. difficile Tox B Gene POSITIVE A* C. difficile Toxin A&B Positive A* C. difficile Interpret SEE NOTE 10/21/22 10/22/22 10/22/22 20:40 05:44 05:44 WBC 6.1 RBC 2.87 L Hgb 9.1 L Hct 27.8 L MCV 96.9 MCH 31.7 MCHC 32.7 RDW 15.8 Plt Count 94 L MPV 10.9 Absolute Nucleated RBC 0.000 Nucleated RBC % (auto) 0.0 Sodium 143 Potassium 3.1 L Chloride 102 Carbon Dioxide 25 Anion Gap 19 BUN 109 H Creatinine 4.16 H* Estim Creat Clear Calc 23.3 Estimated GFR 14 POC Glucose 86 Random Glucose 71 Calcium 8.6 Phosphorus Ammonia Stl C. cayetanensis PCR Stool Rotavirus A PCR Stl Adenov F 40/41 PCR Stool Astrovirus (PCR) Stool Campylobacter PCR Stool Cryptosporidium PCR Stl Sh Tox Pr E STEC PCR Stool E coli O157 PCR Stl Enterotoxigenic E PCR Stool EPEC (PCR) Stool EAEC (PCR) Stl E. histolytica PCR Stool Giardia Lamblia PCR Stl P. shigelloides PCR Stool Salmonella PCR Stool Sapovirus (PCR) Stl Shigella/EIEC PCR St Y.enterocolitica PCR Stool Vibrio (PCR) Stl Vibrio cholerae PCR Stl Norovirus GI/GII PCR C. difficile Tox B Gene C. difficile Toxin A&B C. difficile Interpret 10/22/22 10/22/22 10/22/22 05:44 07:35 08:55 WBC RBC Hgb Hct MCV MCH MCHC RDW Plt Count MPV Absolute Nucleated RBC Nucleated RBC % (auto) Sodium Potassium Chloride Carbon Dioxide Anion Gap BUN Creatinine Estim Creat Clear Calc Estimated GFR POC Glucose 75 Random Glucose Calcium Phosphorus 6.6 H Ammonia 51 Stl C. cayetanensis PCR Stool Rotavirus A PCR Stl Adenov F 40 PCR Stool Astrovirus (PCR) Stool Campylobacter PCR Stool Cryptosporidium PCR Stl Sh Tox Pr E STEC PCR Stool E coli O157 PCR Stl Enterotoxigenic E PCR Stool EPEC (PCR) Stool EAEC (PCR) Stl E. histolytica PCR Stool Giardia Lamblia PCR Stl P. shigelloides PCR Stool Salmonella PCR Stool Sapovirus (PCR) Stl Shigella/EIEC PCR St Y.enterocolitica PCR Stool Vibrio (PCR) Stl Vibrio cholerae PCR Stl Norovirus GI/GII PCR C. difficile Tox B Gene C. difficile Toxin A&B C. difficile Interpret Microbiology Microbiology Results: Microbiology 10/14/22 Unknown Urine clean catch - Urine keys top Urine Culture - Final Procedures Date of Service Date of Service: 10/22/22 Assessment & Plan Assessment and plan (1) Congestive heart failure: Status: Acute (2) Shortness of breath: Status: Acute (3) CKD (chronic kidney disease) stage 4, GFR 15-29 ml/min: Status: Acute Plan 67-year-old man with advanced renal failure approaching ESRD admitted with fluid overload. Reviewing records SCR 2.0- 3.0 range 11/2021 and then adm in 09/2022 and SCr now 4.0 -5.0 range; h/o liver cirrhosis and HFpEF and urine studies benign 1. Adv CKD: SCr appears at new BSL; etiol of adv CKD not clear but doubt a kidney Bx will change management manager 2. Hypervol: diuresing on IV lasix and ? approaching target WT to balance vol vs azotemia Disc: AMS and clearly with asterxisis--unlcear if the latter is d/t liver dysfunc vs urmeia but given ammonia not markedly elvated suspect UREMIA playing a signif role REC: start HD today and check 24 hr urine for combined CrCl and Urea Clearance and will look to get him outpt HD spot Will follow zita with team Time Spent With Patient Time: Total time managing care of this patient today ____ minutes. Progress Note: Quality Stroke Does the patient have a stroke diagnosis?: No
[2022-10-22 12:55] LABS: HBc Num1 0.36 S/CO (0.00-0.79); Hepatitis B Core Antibody Nonreactive (Nonreactive)
[2022-10-22 13:31] LABS: Creatinine, mg/dL 27.06
[2022-10-22 13:49] LABS: Creatinine (CrCl) 4.16 mg/dL (0.5-1.4); Creatinine Clearance 13.3 mL/min (85-125); Creatinine, 24Hr Urine 0.8 G/Day (1.0-2.0); Total Volume 24 Hour Urine 2950 mL
--- NOTE | 2022-10-22 14:48 | HO.PM.IMPN ---
Subjective Subjective Date of Service: 10/22/22 Interval History: Lethargic this morning. Awake and alert and oriented [at least to person/place/year]. Per his he has been more lethargic over the last 2 days. Diuresed nearly 22L this admission. Obvious asterixis elicited. C/o generalized swelling. Overnight Cdiff +stool. Review of Systems Review of Systems: Yes all other systems are reviewed and are negative Physical Exam Vital Signs: Vital Signs: Last Vital Signs Temp 97.6 F 10/22/22 07:06 Pulse 98 10/22/22 08:05 Resp 15 10/22/22 07:38 BP 112/71 10/22/22 07:06 Pulse Ox 96 10/22/22 07:06 O2 Del Method Room Air 10/22/22 07:06 BMI result Body Mass Index 40.8 Gen: lethargic but arousable HEENT: sclera anicteric, moist mucus membranes Neck: supple Lungs: clear to auscultation bilaterally Heart: regular rate and rhythm, no murmurs Abd: soft, fluid wave present, bulging flanks, morbidly obese Ext: generalized edema/anasarca Skin: warm/well-perfused Neuro: alert and oriented x3 [at least to person/place/year], asterixis elicited Psych: appropriate affect Objective Data Active Medications Acetaminophen (Acetaminophen 325 Mg Tablet) 650 mg PO Q6H PRN PRN Reason: Pain, Mild (Pain Scale 1-3) Last Admin: 10/22/22 05:19 Dose: 650 mg Documented By: SHIRLEY Albuterol Sulfate (Albuterol Sulfate 90 Mcg 8 Gm Inhaler) 2 puff INHALE Q4H PRN PRN Reason: Shortness Of Breath Or Wheezing Apixaban (Apixaban 2.5 Mg Tablet) 2.5 mg PO BID [facility] Last Admin: 10/22/22 08:44 Dose: 2.5 mg Documented By: BRADLY Calcitriol (Calcitriol 0.25 Mcg Capsule) 0.5 mcg PO DAILY [facility] Last Admin: 10/22/22 08:44 Dose: 0.5 mcg Documented By: BRADLY Clotrimazole (Clotrimazole 1 % Cream 15 Gm Tube) 1 appl TOPICAL BID [facility]; Protocol Last Admin: 10/22/22 08:46 Dose: Not Given Documented By: BRADLY Non-Admin Reason: Previously Administered Docusate Sodium (Docusate Sodium 100 Mg Capsule) 100 mg PO DAILY PRN PRN Reason: Constipation Doxazosin Mesylate (Doxazosin Mesylate 2 Mg Tablet) 4 mg PO BEDTIME [facility] Last Admin: 10/21/22 21:04 Dose: 4 mg Documented By: SHIRLEY Ferrous Sulfate (Ferrous Sulfate 324 Mg Tablet.Dr) 324 mg PO DAILY [facility] Last Admin: 10/22/22 08:44 Dose: 324 mg Documented By: BRADLY Glucose (Glucose Gel 15 Gm Gel..Gram.) 15 gm PO Q15M PRN; Protocol PRN Reason: per Hypoglycemia Standing Ord. Dextrose (D10) 250 mls @ 750 mls/hr IV Q15M PRN; Protocol PRN Reason: per Hypoglycemia Standing Ord. Albumin Human (Kedbumin 25 %) 100 mls @ 100 mls/hr IV Q6H [facility] Stop: 10/23/22 03:29 Last Infusion: 10/22/22 10:08 Dose: 0 mls/hr Documented By: BRADLY Insulin Human Lispro (Insulin Lispro 100 Unit/Ml 3 Ml Vial) 0 unit SUBCUT QIDACHS [facility]; Protocol Last Admin: 10/22/22 07:42 Dose: Not Given Documented By: BRADLY Non-Admin Reason: No Insulin Coverage Isosorbide Mononitrate (Isosorbide Mononitrate 30 Mg Tab.Er.24h) 30 mg PO DAILY [facility]; Protocol Last Admin: 10/14/22 09:29 Dose: 30 mg Documented By: HALIE Lactic Acid (Ammonium Lactate 12 % Cream 140 Gm Tube) 1 appl TOPICAL BID PRN; Protocol PRN Reason: Dry Skin Lactulose (Lactulose 20 Gm/30 Ml Solution) 30 gm PO TID [facility] Last Admin: 10/22/22 08:45 Dose: 30 gm Documented By: BRADLY Metoprolol Tartrate (Metoprolol Tartrate 12.5 Mg Halftab) 12.5 mg PO BID [facility]; Protocol Last Admin: 10/14/22 09:28 Dose: 12.5 mg Documented By: HALIE Nystatin (Nystatin Powder 15 Gm Bottle) 1 appl TOPICAL BID [facility]; Protocol Last Admin: 10/22/22 08:46 Dose: 1 appl Documented By: BRADLY Ondansetron HCl (Ondansetron Hcl 4 Mg/2 Ml Vial) 4 mg IVPUSH Q8H PRN PRN Reason: Nausea and Vomiting Pharmacy Consult (Consult Rx Perform Med Rec) 1 each MISCELLANE ONCE PRN PRN Reason: Consult order Polyethylene Glycol (Polyethylene Glycol 3350 17 Gm Powd.Pack) 17 gm PO DAILY PRN PRN Reason: Constipation Pravastatin Sodium (Pravastatin Sodium 20 Mg Tablet) 20 mg PO BEDTIME [facility] Last Admin: 10/21/22 21:04 Dose: 20 mg Documented By: SHIRLEY Rifaximin (Rifaximin 550 Mg Tablet) 550 mg PO BID [facility] Last Admin: 10/22/22 08:46 Dose: 550 mg Documented By: BRADLY Salmeterol Xinafoate (Salmeterol Xinafoate 50 Mcg Blst.W.Dev) 1 puff INHALE RBID [facility] Last Admin: 10/22/22 07:37 Dose: 1 puff Documented By: CRYSTAL Sodium Bicarbonate (Sodium Bicarbonate 650 Mg Tablet) 650 mg PO QID PRN PRN Reason: Gastric Reflux Sodium Chloride (0.9 % Sodium Chloride Flush 3 Ml Syringe) 3 ml IVFLUSH QSHIFT [facility] Last Admin: 10/22/22 08:43 Dose: 3 ml Documented By: BRADLY Tiotropium [place] (Tiotropium [place] 18 Mcg Cap.W.Dev) 1 puff INHALE RDAILY [facility] Last Admin: 10/22/22 07:37 Dose: 1 puff Documented By: CRYSTAL Vancomycin HCl (Vancomycin Hcl 125 Mg Capsule) 125 mg PO Q6H [facility] Last Admin: 10/22/22 10:27 Dose: 125 mg Documented By: BRADLY Labs 10/22/22 05:44 10/22/22 07:00 Labs: Laboratory Results - last 24 hr 10/21/22 10/21/22 10/21/22 16:23 19:10 19:10 MCV MCH MCHC RDW Plt Count MPV Absolute Nucleated RBC Nucleated RBC % (auto) Anion Gap Estim Creat Clear Calc Estimated GFR POC Glucose 98 Random Glucose Calcium Phosphorus Ammonia Ur 24 Hour Volume Ur Creatinine mg/dL Ur Creatinine 24 Hour Creat Clearance 24 Hr Stl C. cayetanensis PCR Not Detected Stool Rotavirus A PCR Not Detected Stl Adenov F 40/41 PCR Not Detected Stool Astrovirus (PCR) Not Detected Stool Campylobacter PCR Not Detected Stool Cryptosporidium PCR Not Detected Stl Sh Tox Pr E STEC PCR Not Detected Stool E coli O157 PCR Not applicable Stl Enterotoxigenic E PCR Not Detected Stool EPEC (PCR) Not Detected Stool EAEC (PCR) Not Detected Stl E. histolytica PCR Not Detected Stool Giardia Lamblia PCR Not Detected Stl P. shigelloides PCR Not Detected Stool Salmonella PCR Not Detected Stool Sapovirus (PCR) Not Detected Stl Shigella/EIEC PCR Not Detected St Y.enterocolitica PCR Not Detected Stool Vibrio (PCR) Not Detected Stl Vibrio cholerae PCR Not Detected Stl Norovirus GI/GII PCR Not Detected C. difficile Tox B Gene POSITIVE A* C. difficile Toxin A&B Positive A* C. difficile Interpret SEE NOTE Hep Bs Antigen Hep Bs Antibody Hep B Core Total Ab 10/21/22 10/22/22 10/22/22 20:40 05:44 05:44 MCV 96.9 MCH 31.7 MCHC 32.7 RDW 15.8 Plt Count 94 L MPV 10.9 Absolute Nucleated RBC 0.000 Nucleated RBC % (auto) 0.0 Anion Gap 19 Estim Creat Clear Calc 23.3 Estimated GFR 14 POC Glucose 86 Random Glucose 71 Calcium 8.6 Phosphorus Ammonia Ur 24 Hour Volume Ur Creatinine mg/dL Ur Creatinine 24 Hour Creat Clearance 24 Hr Stl C. cayetanensis PCR Stool Rotavirus A PCR Stl Adenov F PCR Stool Astrovirus (PCR) Stool Campylobacter PCR Stool Cryptosporidium PCR Stl Sh Tox Pr E STEC PCR Stool E coli O157 PCR Stl Enterotoxigenic E PCR Stool EPEC (PCR) Stool EAEC (PCR) Stl E. histolytica PCR Stool Giardia Lamblia PCR Stl P. shigelloides PCR Stool Salmonella PCR Stool Sapovirus (PCR) Stl Shigella/EIEC PCR St Y.enterocolitica PCR Stool Vibrio (PCR) Stl Vibrio cholerae PCR Stl Norovirus GI/GII PCR C. difficile Tox B Gene C. difficile Toxin A&B C. difficile Interpret Hep Bs Antigen Hep Bs Antibody Hep B Core Total Ab 10/22/22 10/22/22 10/22/22 05:44 07:00 07:35 MCV MCH MCHC RDW Plt Count MPV Absolute Nucleated RBC Nucleated RBC % (auto) Anion Gap Estim Creat Clear Calc Estimated GFR POC Glucose 75 Random Glucose Calcium Phosphorus 6.6 H Ammonia Ur 24 Hour Volume 2950 Ur Creatinine mg/dL 27.06 Ur Creatinine 24 Hour 0.8 L Creat Clearance 24 Hr 13.3 L Stl C. cayetanensis PCR Stool Rotavirus A PCR Stl Adenov F 40/41 PCR Stool Astrovirus (PCR) Stool Campylobacter PCR Stool Cryptosporidium PCR Stl Sh Tox Pr E STEC PCR Stool E coli O157 PCR Stl Enterotoxigenic E PCR Stool EPEC (PCR) Stool EAEC (PCR) Stl E. histolytica PCR Stool Giardia Lamblia PCR Stl P. shigelloides PCR Stool Salmonella PCR Stool Sapovirus (PCR) Stl Shigella/EIEC PCR St Y.enterocolitica PCR Stool Vibrio (PCR) Stl Vibrio cholerae PCR Stl Norovirus GI/GII PCR C. difficile Tox B Gene C. difficile Toxin A&B C. difficile Interpret Hep Bs Antigen Hep Bs Antibody Hep B Core Total Ab 10/22/22 10/22/22 08:55 11:30 MCV MCH MCHC RDW Plt Count MPV Absolute Nucleated RBC Nucleated RBC % (auto) Anion Gap Estim Creat Clear Calc Estimated GFR POC Glucose Random Glucose Calcium Phosphorus Ammonia 51 Ur 24 Hour Volume Ur Creatinine mg/dL Ur Creatinine 24 Hour Creat Clearance 24 Hr Stl C. cayetanensis PCR Stool Rotavirus A PCR Stl Adenov F 40/41 PCR Stool Astrovirus (PCR) Stool Campylobacter PCR Stool Cryptosporidium PCR Stl Sh Tox Pr E STEC PCR Stool E coli O157 PCR Stl Enterotoxigenic E PCR Stool EPEC (PCR) Stool EAEC (PCR) Stl E. histolytica PCR Stool Giardia Lamblia PCR Stl P. shigelloides PCR Stool Salmonella PCR Stool Sapovirus (PCR) Stl Shigella/EIEC PCR St Y.enterocolitica PCR Stool Vibrio (PCR) Stl Vibrio cholerae PCR Stl Norovirus GI/GII PCR C. difficile Tox B Gene C. difficile Toxin A&B C. difficile Interpret Hep Bs Antigen Negative Hep Bs Antibody NONREACTIVE Hep B Core Total Ab Nonreactive Assessment and Plan (1) Cirrhosis: Status: Acute (2) Pulmonary hypertension: Status: Acute (3) Acute on chronic diastolic CHF (congestive heart failure), NYHA class 3: Status: Acute Plan d#10 67yo M with CKD4, DM2, COPD, HTN, HLD, ZEYAD, AF on apixaban presenting with exertional dyspnea x 1 wk, admitted for CHF exacerbation hospitalization complicated by hepatic encephalopathy, CARY, and Cdiff infection # hepatic encephalopathy - start lactulose/rifaxmin, tap ascites as below # Cdiff infection - started # cirrhosis with ascites - diagnostic tap to r/o SBP. albumin as above - GI consulted # CARY/CKD4 - concern for cardiorenal and hepatorenal syndrome, to start HD today per discussion with Nephrology. Permacath placed 10/17/22. will give 25g IV albumin q6h x4 doses today # acute HFpEF - last TTE 09/25/22 with LVEF 55%, mod diastolic dysfunction, pulmonary HTN - negative 22L thus far - d/c diuretics [torsemide, acetazolamide, metolazone] as starting dialysis today [10/22] - continue Imdur, amlodipine, metoprolol tartrate # paroxysmal AF - continue metoprolol + apixaban # DM2 - marco-dose lispro # HTN - amlodipine, Imdur, metoprolol tartrate # acute/chronic anemia - s/p 2u pRBCs 10/14/22 - likely due to CKD + cirrhosis - H+H stable - continue Fe supplementation # COPD not in acute exac - prn albuterol, controller inhalers [salmeterol, tiotropium] # VTE ppx: apixaban # dispo: will need STR eventually + HD placement In my clinical judgment, the patient requires continued inpatient hospitalization for the following reasons: dialysis initiation, AMS, electrolyte monitoring I updated the pt's Zeus Castano via phone today. Time Spent With Patient Time: Total time managing care of this patient today __60__ minutes. Quality Stroke Does the patient have a stroke diagnosis?: No VTE Prior VTE?: No VTE Risk Level:: Medical - moderate - high VTE Device Contraindication: Treatment Not Indicated VTE Drug Contraindication: N/A - Med Ordered
[2022-10-22] MEDS: Lidocaine HCl 1 % MPF 5 ML VIAL SUBCUT (15:06)
[2022-10-22 15:20] LABS: MN% 77.7 %; PMN% 22.3 %; WBC Peritoneal Fluid 0.392 X10*3/uL
[2022-10-22 15:33] LABS: RBC Peritoneal Fluid < 0.002 X10*6/uL
[2022-10-22 16:10] LABS: Glucose, Whole Blood 80 mg/dL (60-115)
[2022-10-22 16:33] LABS: BF Shift QC OK YES; Lymphocyte Peritoneal Fl 5 %; Neutrophils Peritoneal Fluid 18 %; Other Peritioneal Fl 77 %
[2022-10-22] MEDS: Potassium Chloride/H20 10 MEQ/100 ML PIGGYBACK 100 MEQ IV ×4 (18:11→21:47)
--- NOTE | 2022-10-22 18:51 | PC.NURSE ---
Pt. had very loose bowel movement compromising existing garcia. MD was made aware and garcia was removed. MD ordered for new garcia to be placed along with rectal tube. Pt. tolerated both insertions well, will continue to monitor.
[2022-10-22 20:00] LABS: Glucose, Whole Blood 76 mg/dL (60-115)
[2022-10-22] MEDS: Doxazosin Mesylate 2 MG TABLET 4 MG PO (21:48)
[2022-10-22] MEDS: Clotrimazole 1 % Cream 15 GM TUBE 1 APPL TOPICAL (21:48)
[2022-10-22] MEDS: Pravastatin Sodium 20 MG TABLET PO (21:48)
[2022-10-22] MEDS: vancomycin HCL Oral Solution 125 MG/5 ML SOLN.RECON PO (21:48)
[2022-10-22 22:35] LABS: Albumin Peritoneal Fluid 2.4 GM/DL; LDH Peritoneal Fluid 94 U/L; Total Protein Peritoneal Fluid 3.9 GM/DL
--- NOTE | 2022-10-22 23:13 | W.PM.IDCN ---
History of Present Illness Data of Consult Service Date: 10/22/22 Requesting physician: Eileen Villafuerte Primary Care Provider: Steve Nguyen MD HPI Reason for consult: weakness,Cdiff He presents with weakness and swelling in legs. He has known cirrhosis and anasarca. He did come in with diarrhea as well and diagnosed Cdiff He was started on po Vancomycin and Rifaximin. He is tolerating them Review of Systems Review of Systems: Yes all other systems are reviewed and are negative [facility] Past Medical History Medical History (Updated 10/22/22 @ 23:17 by Marisa Maurer MD) Acute kidney injury superimposed on chronic kidney disease Afib Anasarca Anemia Anemia BPH (benign prostatic hyperplasia) Bradycardia Chronic kidney disease Cirrhosis CKD (chronic kidney disease) stage 4, GFR 15-29 ml/min Clostridioides difficile diarrhea COPD (chronic obstructive pulmonary disease) Depression, major Diabetic retinopathy Diastolic heart failure Edema Essential thrombocytopenia Fistula Gout High cholesterol HTN (hypertension) Hypercholesterolemia Incomplete emptying of bladder due to benign prostatic hyperplasia Lumbar degenerative disc disease Lymphedema Obesity (BMI 30-39.9) Obstructive sleep apnea Osteoarthritis Pacemaker Pancytopenia Paroxysmal A-fib Peripheral neuropathy Peripheral vascular disease Pulmonary hypertension Pulmonary hypertension Scrotal edema SLE (systemic lupus erythematosus related syndrome) Type 2 diabetes mellitus with hyperglycemia Venous stasis dermatitis Family History Family History Father Prostate cancer CVD (cardiovascular disease) Mother Hemochromatosis Brother Motor vehicle accident Sister CAD (coronary artery disease) Maternal Grandfather Myocardial infarction Family history: reviewed and not pertinent Surgical History Surgical History H/O prior ablation treatment History of bilateral cataract extraction History of bowel diversion surgery History of carpal tunnel release History of gastric surgery History of tonsillectomy Social History Social History Household Members: Spouse Housing: House Do you presently have visiting nurse or other home services: Yes Alcohol intake: never Patient Tobacco Use Status: Former Tobacco user Tobacco use type: Cigarette Smoked in Last 30 Days: No e-Cigarette/Vaping Use: Former Use Patient Interested in Nicotine Replacement: No Patient Given Instructions on How to Stop Smoking: No Second Hand Smoke Exposure: Yes Use of substances other than those prescribed or required for medical reasons: No Substance Use Type: Marijuana Currently Displaying Signs/Symptoms of Drug Intoxication Withdrawal: No Any prior treatment program specific to substance use: No Have you been hit, kicked, punched, or otherwise hurt by someone within the past year? If so, by whom?: No Do you feel safe in your current relationship?: Yes Is there a partner from a previous relationship who is making you feel unsafe now?: No Are you made to feel afraid or neglected: No Advance Directives: No Advance Directives Information Provided: Yes Do you have thoughts of harming others: None Do you have a plan to hurt others: No Plan Recently lost weight without trying: Unsure How much weight loss: Unsure Eating poorly because of decreased appetite: Yes Nutrition screen score: 5 Nutrition Risks: Recent weight gain Poor oral hygiene: No service: No Current occupational status: retired Cognitive needs: Yes Hearing needs: Yes Vision needs: Yes Meds Allergies Allergy/AdvReac Type Severity Reaction Status Date / Time No Known Allergies Allergy Verified 10/13/22 17:04 [No Known Allergies*] Active Medications: Current Medications Acetaminophen (Acetaminophen 325 Mg Tablet) 650 mg PO Q6H PRN PRN Reason: Pain, Mild (Pain Scale 1-3) Last Admin: 10/22/22 05:19 Dose: 650 mg Albuterol Sulfate (Albuterol Sulfate 90 Mcg 8 Gm Inhaler) 2 puff INHALE Q4H PRN PRN Reason: Shortness Of Breath Or Wheezing Apixaban (Apixaban 2.5 Mg Tablet) 2.5 mg PO BID [facility] Last Admin: 10/22/22 22:11 Dose: 2.5 mg Calcitriol (Calcitriol 0.25 Mcg Capsule) 0.5 mcg PO DAILY [facility] Last Admin: 10/22/22 08:44 Dose: 0.5 mcg Clotrimazole (Clotrimazole 1 % Cream 15 Gm Tube) 1 appl TOPICAL BID [facility]; Protocol Last Admin: 10/22/22 21:48 Dose: 1 appl Docusate Sodium (Docusate Sodium 100 Mg Capsule) 100 mg PO DAILY PRN PRN Reason: Constipation Doxazosin Mesylate (Doxazosin Mesylate 2 Mg Tablet) 4 mg PO BEDTIME [facility] Last Admin: 10/22/22 21:48 Dose: 4 mg Ferrous Sulfate (Ferrous Sulfate 324 Mg Tablet.) 324 mg PO DAILY [facility] Last Admin: 10/22/22 08:44 Dose: 324 mg Glucose (Glucose Gel 15 Gm Gel..Gram.) 15 gm PO Q15M PRN; Protocol PRN Reason: per Hypoglycemia Standing Ord. Dextrose (D10) 250 mls @ 750 mls/hr IV Q15M PRN; Protocol PRN Reason: per Hypoglycemia Standing Ord. Albumin Human (Kedbumin 25 %) 100 mls @ 100 mls/hr IV Q6H [facility] Stop: 10/23/22 03:29 Last Admin: 10/22/22 21:48 Dose: 100 mls/hr Insulin Human Lispro (Insulin Lispro 100 Unit/Ml 3 Ml Vial) 0 unit SUBCUT QIDACHS [facility]; Protocol Last Admin: 10/22/22 19:58 Dose: Not Given Isosorbide Mononitrate (Isosorbide Mononitrate 30 Mg Tab.Er.24h) 30 mg PO DAILY [facility]; Protocol Last Admin: 10/14/22 09:29 Dose: 30 mg Lactic Acid (Ammonium Lactate 12 % Cream 140 Gm Tube) 1 appl TOPICAL BID PRN; Protocol PRN Reason: Dry Skin Lactulose (Lactulose 20 Gm/30 Ml Solution) 30 gm PO TID [facility] Last Admin: 10/22/22 21:49 Dose: 30 gm Metoprolol Tartrate (Metoprolol Tartrate 12.5 Mg Halftab) 12.5 mg PO BID [facility]; Protocol Last Admin: 10/14/22 09:28 Dose: 12.5 mg Nystatin (Nystatin Powder 15 Gm Bottle) 1 appl TOPICAL BID [facility]; Protocol Last Admin: 10/22/22 21:48 Dose: 1 appl Ondansetron HCl (Ondansetron Hcl 4 Mg/2 Ml Vial) 4 mg IVPUSH Q8H PRN PRN Reason: Nausea and Vomiting Pharmacy Consult (Consult Rx Perform Med Rec) 1 each MISCELLANE ONCE PRN PRN Reason: Consult order Polyethylene Glycol (Polyethylene Glycol 3350 17 Gm Powd.Pack) 17 gm PO DAILY PRN PRN Reason: Constipation Pravastatin Sodium (Pravastatin Sodium 20 Mg Tablet) 20 mg PO BEDTIME [facility] Last Admin: 10/22/22 21:48 Dose: 20 mg Rifaximin (Rifaximin 550 Mg Tablet) 550 mg PO BID [facility] Last Admin: 10/22/22 21:48 Dose: 550 mg Salmeterol Xinafoate (Salmeterol Xinafoate 50 Mcg Blst.W.Dev) 1 puff INHALE RBID [facility] Last Admin: 10/22/22 19:36 Dose: 1 puff Sodium Bicarbonate (Sodium Bicarbonate 650 Mg Tablet) 650 mg PO QID PRN PRN Reason: Gastric Reflux Sodium Chloride (0.9 % Sodium Chloride Flush 3 Ml Syringe) 3 ml IVFLUSH QSHIFT [facility] Last Admin: 10/22/22 21:59 Dose: 3 ml Tiotropium [place] (Tiotropium [place] 18 Mcg Cap.W.Dev) 1 puff INHALE RDAILY [facility] Last Admin: 10/22/22 07:37 Dose: 1 puff Vancomycin HCl (Vancomycin Hcl Oral Solution 125 Mg/5 Ml Soln.Recon) 125 mg PO Q6H [facility] Last Admin: 10/22/22 21:48 Dose: 125 mg Home Medications Medication Instructions Recorded Confirmed Last Taken Type calcitriol 0.5 mcg capsule 0.5 mcg PO DAILY 04/03/20 10/13/22 10/13/22 History albuterol sulfate 90 mcg/actuation 2 puff inhalation Q4H PRN 07/05/20 10/13/22 10/13/22 History aerosol inhaler (ProAir HFA) Shortness Of Breath Or Wheezing sodium bicarbonate 650 mg tablet 650 mg PO QID PRN Gastric Reflux 09/22/22 10/13/22 10/13/22 History polyethylene glycol 3350 17 gram 17 g PO DAILY PRN Constipation 09/24/22 10/13/22 10/13/22 History oral powder packet (Miralax) terazosin 5 mg capsule 5 mg PO BEDTIME 10/13/22 10/13/22 10/13/22 History Physical Exam Vital Signs: Vital Signs: Last Vital Signs Temp 97.0 F 10/22/22 19:14 Pulse 93 10/22/22 19:37 Resp 13 10/22/22 19:37 BP 137/88 10/22/22 19:14 Pulse Ox 97 10/22/22 19:14 O2 Del Method Room Air 10/22/22 19:14 BMI result Body Mass Index 40.8 Const: General: cooperative HEENT: Head: Yes normal to inspection Face and sinus: Yes normal facial exam Mouth: Normal oral and palatal mucosa present Teeth and gingiva: dentition normal Eyes: General: appearance normal, both eyes and all related structures Pupils: Equal, round and reactive pupils present Resp: Effort & Inspection: normal respiratory effort Cardio: Other: 2/6 CHAYO Rate: regular rate Rhythm: regular rhythm GI: Palpation (GI): Soft to palpation and nontender : General: Yes no CVA tenderness Back/Spine/Pelvis: Back: no CVA tenderness Skin: Other: right chest wall port left chest wall possible fistula General skin exam: no rashes or lesions noted Neuro: General: moves all extremities Cranial nerves: Yes Equal, round and reactive pupils present Extrem: General: Yes normal to inspection Psych: Appearance: grossly normal Results Labs 10/22/22 05:44 10/22/22 07:00 Labs: Short CBC 10/22/22 Range/Units 05:44 WBC 6.1 (4.8-10.8) X10*3/uL Hgb 9.1 L (14.0-18.0) g/dl Hct 27.8 L (42.0-52.0) % Plt Count 94 L (160-400) X10*3/uL BMP 10/22/22 10/22/22 05:44 07:00 Sodium 143 Potassium 3.1 L Chloride 102 Carbon Dioxide 25 BUN 109 H Creatinine 4.16 H* 4.16 H* Calcium 8.6 Microbiology Microbiology Results: Microbiology 10/14/22 Unknown Urine clean catch - Urine keys top Urine Culture - Final Assessment and Plan (1) Clostridioides difficile diarrhea: Status: Acute He presents with diarrhea and has positive Cdiff This is probably due to immunocompromised state He is needing hemodialysis Plan Can use po Vancomycin in ESRD Fidaxomicin data doesnt indicate mandatory need but can be used as adjunctive therapy ,both for 10 days Time Spent With Patient Time: Total time managing care of this patient today ____ minutes.
[2022-10-23] VITALS (8 sets, daily range): BP systolic 108–134; BP diastolic 57–87; PULSE 77–97; RESP 18–20; TEMP 36.3–37.2; O2SAT 94–97
[2022-10-23] MEDS: Albumin Human 25 % 100 ML IV (02:48)
[2022-10-23] MEDS: traMADoL HCL 50 MG TABLET PO (02:48)
[2022-10-23] MEDS: vancomycin HCL Oral Solution 125 MG/5 ML SOLN.RECON PO ×4 (02:48→20:36)
[2022-10-23 07:40] LABS: Hematocrit 26.9 % (42.0-52.0); Mean Corpuscular HGB Conc 33.5 g/dl (31.0-36.0); Mean Corpuscular Hemoglobin 32.5 pg (27.0-33.0); Mean Corpuscular Volume 97.1 fL (80.0-98.0); Platelet Count 110 X10*3/uL (160-400); Red Blood Count 2.77 X10*6/uL (4.60-5.80); Red Cell Distribution Width 15.7 % (11.0-16.0); White Blood Count 6.6 X10*3/uL (4.8-10.8)
[2022-10-23 07:57] LABS: Alanine Aminotransferase < 5 U/L (0-40); Albumin Level 3.7 g/dL (3.5-5.0); Alkaline Phosphatase 104 U/L (39-117); Anion Gap 20 (12-20); Aspartate Amino Transferase 10 U/L (5-37); Bilirubin Total 1.2 mg/dL (0.0-1.0); Blood Urea Nitrogen 86 mg/dL (9-16); Calcium 8.8 mg/dL (8.4-10.2); Carbon Dioxide 27 mmol/L (22-29); Chloride 101 mmol/L (96-108); Estimated Glomerular Filt Rate 18; Glucose Random 56 mg/dL (60-115); Potassium 2.6 mmol/L (3.3-5.1); Sodium 145 mmol/L (135-145); Total Protein 5.8 g/dL (6.5-8.0)
[2022-10-23] MEDS: Glucose Gel 15 GM GEL..GRAM. PO (08:03)
[2022-10-23 08:54] LABS: Glucose, Whole Blood 76 mg/dL (60-115)
[2022-10-23] MEDS: rifAXIMin 550 MG TABLET PO ×2 (09:14→20:36)
[2022-10-23] MEDS: Apixaban 2.5 MG TABLET PO ×2 (09:14→20:37)
[2022-10-23] MEDS: 0.9 % Sodium Chloride Flush 3 ML SYRINGE IVFLUSH (09:14)
[2022-10-23] MEDS: Ferrous Sulfate 324 MG TABLET.DR PO (09:14)
[2022-10-23] MEDS: calcitrioL 0.25 MCG CAPSULE 0.5 MCG PO (09:14)
[2022-10-23] MEDS: Clotrimazole 1 % Cream 15 GM TUBE 1 APPL TOPICAL ×2 (09:15→20:42)
[2022-10-23] MEDS: Nystatin Powder 15 GM BOTTLE 1 APPL TOPICAL (09:16)
--- NOTE | 2022-10-23 10:21 | PM.PNNEP ---
Subjective Subjective Date of Service: 10/23/22 Principal diagnosis: Decompensated heart failure Interval history: Seen and examied, events noted Physical Exam Vital Signs: Vital Signs: Last Vital Signs Temp 99.0 F 10/23/22 08:52 Pulse 92 10/23/22 08:52 Resp 20 10/23/22 08:52 BP 108/57 L 10/23/22 08:52 Pulse Ox 94 10/23/22 08:52 O2 Del Method Room Air 10/23/22 08:52 BMI result Body Mass Index 40.8 Const: General: cooperative, no acute distress, alert, awake and in distress mild and respiratory Nutritional Appearance: well nourished and obese Orientation/consciousness: patient oriented x3 HEENT: Head: Yes normocephalic and Yes atraumatic Throat: Yes posterior oropharynx normal Eyes: Eyelids: Yes eyelids normal Conjunctivae: conjunctivae normal Sclerae: sclerae normal Corneas: corneas normal Pupils: Equal, round and reactive pupils present EOM: EOMs intact bilaterally Neck: Neck: Yes full ROM, Yes trachea midline, Yes supple and Yes JVD (Improving) Resp: Other: Diminished without adventitious breath sounds Effort & Inspection: normal respiratory effort, able to speak in complete sentences, no audible wheezes and not labored Auscultation: clear to auscultation bilaterally, no crackles, no rales, no rhonchi, no wheezes and diminished lung sounds Cardio: Jugular venous distension: JVD Rate: regular rate Rhythm: regular rhythm Heart sounds: S1 normal heart sound present, S2 normal heart sound present, no click, no gallops, no murmurs and no rubs GI: Inspection: Yes Abdominal wall edema and Yes distended Palpation (GI): Soft to palpation, nontender and no guarding Auscultation: normal bowel sounds and normoactive bowel sounds Skin: Other: Superficial approximately 3 cm wound to the right lower leg. No surrounding erythema or drainage from the wound General skin exam: no rashes or lesions noted and elasticity normal Neuro: General: patient oriented x3 Cranial nerves: Yes CN's II-XII intact bilaterally, Yes Equal, round and reactive pupils present and Yes Bilaterally intact EOM present Cognition (Neuro): normal cognition Extrem: Other: Moving all extremities well without any obvious deformities General: No clubbing, No cyanosis and Yes edema (Improving) Objective Data Labs 10/23/22 05:15 10/23/22 05:15 Labs: Laboratory Results - last 24 hr 10/21/22 10/22/22 10/22/22 19:10 07:00 11:30 WBC RBC Hgb Hct MCV MCH MCHC RDW Plt Count MPV Absolute Nucleated RBC Nucleated RBC % (auto) Sodium Potassium Chloride Carbon Dioxide Anion Gap BUN Creatinine 4.16 H* Estim Creat Clear Calc Estimated GFR POC Glucose Random Glucose Calcium Total Bilirubin AST ALT Alkaline Phosphatase Total Protein Albumin Ur 24 Hour Volume 2950 Ur Creatinine mg/dL 27.06 Ur Creatinine 24 Hour 0.8 L Creat Clearance 24 Hr 13.3 L Peritoneal WBC Peritoneal RBC Periton Neutrophils Periton Lymphocytes Peritoneal Other Cells Peritoneal Tot Protein Peritoneal Albumin Peritoneal LDH Stl C. cayetanensis PCR Not Detected Stool Rotavirus A PCR Not Detected Stl Adenov F / PCR Not Detected Stool Astrovirus (PCR) Not Detected Stool Campylobacter PCR Not Detected Stool Cryptosporidium PCR Not Detected Stl Sh Tox Pr E STEC PCR Not Detected Stool E coli O157 PCR Not applicable Stl Enterotoxigenic E PCR Not Detected Stool EPEC (PCR) Not Detected Stool EAEC (PCR) Not Detected Stl E. histolytica PCR Not Detected Stool Giardia Lamblia PCR Not Detected Stl P. shigelloides PCR Not Detected Stool Salmonella PCR Not Detected Stool Sapovirus (PCR) Not Detected Stl Shigella/EIEC PCR Not Detected St Y.enterocolitica PCR Not Detected Stool Vibrio (PCR) Not Detected Stl Vibrio cholerae PCR Not Detected Stl Norovirus GI/GII PCR Not Detected Hep Bs Antigen Negative Hep Bs Antibody NONREACTIVE Hep B Core Total Ab Nonreactive 10/22/22 10/22/22 10/22/22 14:21 14:21 16:00 WBC RBC Hgb Hct MCV MCH MCHC RDW Plt Count MPV Absolute Nucleated RBC Nucleated RBC % (auto) Sodium Potassium Chloride Carbon Dioxide Anion Gap BUN Creatinine Estim Creat Clear Calc Estimated GFR POC Glucose 80 Random Glucose Calcium Total Bilirubin AST ALT Alkaline Phosphatase Total Protein Albumin Ur 24 Hour Volume Ur Creatinine mg/dL Ur Creatinine 24 Hour Creat Clearance 24 Hr Peritoneal WBC 0.392 Peritoneal RBC < 0.002 Periton Neutrophils 18 Periton Lymphocytes 5 Peritoneal Other Cells 77 Peritoneal Tot Protein 3.9 Peritoneal Albumin 2.4 Peritoneal LDH 94 Stl C. cayetanensis PCR Stool Rotavirus A PCR Stl Adenov F 40/41 PCR Stool Astrovirus (PCR) Stool Campylobacter PCR Stool Cryptosporidium PCR Stl Sh Tox Pr E STEC PCR Stool E coli O157 PCR Stl Enterotoxigenic E PCR Stool EPEC (PCR) Stool EAEC (PCR) Stl E. histolytica PCR Stool Giardia Lamblia PCR Stl P. shigelloides PCR Stool Salmonella PCR Stool Sapovirus (PCR) Stl Shigella/EIEC PCR St Y.enterocolitica PCR Stool Vibrio (PCR) Stl Vibrio cholerae PCR Stl Norovirus GI/GII PCR Hep Bs Antigen Hep Bs Antibody Hep B Core Total Ab 10/22/22 10/23/22 10/23/22 19:51 05:15 05:15 WBC 6.6 RBC 2.77 L Hgb 9.0 L Hct 26.9 L MCV 97.1 MCH 32.5 MCHC 33.5 RDW 15.7 Plt Count 110 L MPV 11.0 Absolute Nucleated RBC 0.000 Nucleated RBC % (auto) 0.0 Sodium 145 Potassium 2.6 L Chloride 101 Carbon Dioxide 27 Anion Gap 20 BUN 86 H Creatinine 3.46 H Estim Creat Clear Calc 28.0 Estimated GFR 18 POC Glucose 76 Random Glucose 56 L* Calcium 8.8 Total Bilirubin 1.2 H AST 10 ALT < 5 Alkaline Phosphatase 104 Total Protein 5.8 L Albumin 3.7 Ur 24 Hour Volume Ur Creatinine mg/dL Ur Creatinine 24 Hour Creat Clearance 24 Hr Peritoneal WBC Peritoneal RBC Periton Neutrophils Periton Lymphocytes Peritoneal Other Cells Peritoneal Tot Protein Peritoneal Albumin Peritoneal LDH Stl C. cayetanensis PCR Stool Rotavirus A PCR Stl Adenov F 40/41 PCR Stool Astrovirus (PCR) Stool Campylobacter PCR Stool Cryptosporidium PCR Stl Sh Tox Pr E STEC PCR Stool E coli O157 PCR Stl Enterotoxigenic E PCR Stool EPEC (PCR) Stool EAEC (PCR) Stl E. histolytica PCR Stool Giardia Lamblia PCR Stl P. shigelloides PCR Stool Salmonella PCR Stool Sapovirus (PCR) Stl Shigella/EIEC PCR St Y.enterocolitica PCR Stool Vibrio (PCR) Stl Vibrio cholerae PCR Stl Norovirus GI/GII PCR Hep Bs Antigen Hep Bs Antibody Hep B Core Total Ab 10/23/22 08:47 WBC RBC Hgb Hct MCV MCH MCHC RDW Plt Count MPV Absolute Nucleated RBC Nucleated RBC % (auto) Sodium Potassium Chloride Carbon Dioxide Anion Gap BUN Creatinine Estim Creat Clear Calc Estimated GFR POC Glucose 76 Random Glucose Calcium Total Bilirubin AST ALT Alkaline Phosphatase Total Protein Albumin Ur 24 Hour Volume Ur Creatinine mg/dL Ur Creatinine 24 Hour Creat Clearance 24 Hr Peritoneal WBC Peritoneal RBC Periton Neutrophils Periton Lymphocytes Peritoneal Other Cells Peritoneal Tot Protein Peritoneal Albumin Peritoneal LDH Stl C. cayetanensis PCR Stool Rotavirus A PCR Stl Adenov F 40 PCR Stool Astrovirus (PCR) Stool Campylobacter PCR Stool Cryptosporidium PCR Stl Sh Tox Pr E STEC PCR Stool E coli O157 PCR Stl Enterotoxigenic E PCR Stool EPEC (PCR) Stool EAEC (PCR) Stl E. histolytica PCR Stool Giardia Lamblia PCR Stl P. shigelloides PCR Stool Salmonella PCR Stool Sapovirus (PCR) Stl Shigella/EIEC PCR St Y.enterocolitica PCR Stool Vibrio (PCR) Stl Vibrio cholerae PCR Stl Norovirus GI/GII PCR Hep Bs Antigen Hep Bs Antibody Hep B Core Total Ab Microbiology Microbiology Results: Microbiology 10/22/22 14:21 Ascites Fluid Gram Stain - Final 10/22/22 14:21 Ascites Fluid Anaerobic Culture - Preliminary No growth to date. 10/22/22 14:21 Ascites Fluid Body Fluid Culture - Preliminary No growth after 1 day 10/14/22 Unknown Urine clean catch - Urine keys top Urine Culture - Final Procedures Date of Service Date of Service: 10/23/22 Assessment & Plan Assessment and plan (1) Congestive heart failure: Status: Acute (2) Shortness of breath: Status: Acute (3) CKD (chronic kidney disease) stage 4, GFR 15-29 ml/min: Status: Acute Plan 67-year-old man with advanced renal failure approaching ESRD admitted with fluid overload. Reviewing records SCR 2.0- 3.0 range 11/2021 and then adm in 09/2022 and SCr now 4.0 -5.0 range; h/o liver cirrhosis and HFpEF and urine studies benign 1. 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 Hypervol: diuresing on IV lasix and ? approaching target WT to balance vol vs azotemia Disc: AMS and clearly with asterxisis--unlcear if the latter is d/t liver dysfunc vs urmeia but given ammonia not markedly elvated suspect UREMIA playing a signif role HD day # 2today and looks better; CrCl 13 and UrCl pending REC: cont HD MWF; outpt HD spot at [facility] Unit MWF 1st shift ( [id number]) Will follow zita with team Time Spent With Patient Time: Total time managing care of this patient today ____ minutes. Progress Note: Quality Stroke Does the patient have a stroke diagnosis?: No
[2022-10-23 11:36] LABS: Glucose, Whole Blood 100 mg/dL (60-115)
--- NOTE | 2022-10-23 12:23 | HO.PM.IMPN ---
Subjective Subjective Date of Service: 10/23/22 Interval History: seen and examined this morning while in HD follow up for multiple issues patient awake and alert, knows he is in [facility] reporting right arm pain, otherwise no complaints, doesn't seem to be reliable historian. Review of Systems Review of Systems: Yes all other systems are reviewed and are negative Constitutional Constitutional: Denies fever(s) Cardiovascular Cardiovascular: Denies chest pain and Denies dyspnea Respiratory Respiratory: Denies dyspnea Gastrointestinal Gastrointestinal: Denies abdominal pain Physical Exam Vital Signs: Vital Signs: Last Vital Signs Temp 98.3 F 10/23/22 11:25 Pulse 88 10/23/22 11:25 Resp 20 10/23/22 11:25 BP 121/66 10/23/22 11:25 Pulse Ox 97 10/23/22 11:25 O2 Del Method Room Air 10/23/22 11:25 BMI result Body Mass Index 40.8 Const: General: comfortable, alert and awake Nutritional Appearance: overweight Orientation/consciousness: oriented to person and oriented to place Chest: Other: permcath present right side pacemaker site left side with some swelling GI: Other: rectal tube in place Palpation (GI): Soft to palpation and nontender : Other: garcia present, draining clear yellow urine Skin: Other: chronic skin changes b/l lower extremiteis Neuro: General: oriented to person, oriented to place and moves all extremities Objective Data Active Medications Acetaminophen (Acetaminophen 325 Mg Tablet) 650 mg PO Q6H PRN PRN Reason: Pain, Mild (Pain Scale 1-3) Last Admin: 10/22/22 05:19 Dose: 650 mg Documented By: SHIRLEY Albuterol Sulfate (Albuterol Sulfate 90 Mcg 8 Gm Inhaler) 2 puff INHALE Q4H PRN PRN Reason: Shortness Of Breath Or Wheezing Apixaban (Apixaban 2.5 Mg Tablet) 2.5 mg PO BID [facility] Last Admin: 10/23/22 09:14 Dose: 2.5 mg Documented By: BRADLY Calcitriol (Calcitriol 0.25 Mcg Capsule) 0.5 mcg PO DAILY [facility] Last Admin: 10/23/22 09:14 Dose: 0.5 mcg Documented By: BRADLY Clotrimazole (Clotrimazole 1 % Cream 15 Gm Tube) 1 appl TOPICAL BID [facility]; Protocol Last Admin: 10/23/22 09:15 Dose: 1 appl Documented By: BRADLY Docusate Sodium (Docusate Sodium 100 Mg Capsule) 100 mg PO DAILY PRN PRN Reason: Constipation Doxazosin Mesylate (Doxazosin Mesylate 2 Mg Tablet) 4 mg PO BEDTIME [facility] Last Admin: 10/22/22 21:48 Dose: 4 mg Documented By: SHIRLEY Ferrous Sulfate (Ferrous Sulfate 324 Mg Tablet.Dr) 324 mg PO DAILY [facility] Last Admin: 10/23/22 09:14 Dose: 324 mg Documented By: BRADLY Glucose (Glucose Gel 15 Gm Gel..Gram.) 15 gm PO Q15M PRN; Protocol PRN Reason: per Hypoglycemia Standing Ord. Last Admin: 10/23/22 08:03 Dose: 15 gm Documented By: BRADLY Dextrose (D10) 250 mls @ 750 mls/hr IV Q15M PRN; Protocol PRN Reason: per Hypoglycemia Standing Ord. Insulin Human Lispro (Insulin Lispro 100 Unit/Ml 3 Ml Vial) 0 unit SUBCUT QIDACHS [facility]; Protocol Last Admin: 10/23/22 11:46 Dose: Not Given Documented By: BRADLY Non-Admin Reason: No Insulin Coverage Isosorbide Mononitrate (Isosorbide Mononitrate 30 Mg Tab.Er.24h) 30 mg PO DAILY [facility]; Protocol Last Admin: 10/14/22 09:29 Dose: 30 mg Documented By: HALIE Lactic Acid (Ammonium Lactate 12 % Cream 140 Gm Tube) 1 appl TOPICAL BID PRN; Protocol PRN Reason: Dry Skin Lactulose (Lactulose 20 Gm/30 Ml Solution) 30 gm PO TID [facility] Last Admin: 10/23/22 09:14 Dose: Not Given Documented By: BRADLY Non-Admin Reason: Patient Condition Contraindication Metoprolol Tartrate (Metoprolol Tartrate 12.5 Mg Halftab) 12.5 mg PO BID [facility]; Protocol Last Admin: 10/14/22 09:28 Dose: 12.5 mg Documented By: HALIE Nystatin (Nystatin Powder 15 Gm Bottle) 1 appl TOPICAL BID [facility]; Protocol Last Admin: 10/23/22 09:16 Dose: 1 appl Documented By: BRADLY Ondansetron HCl (Ondansetron Hcl 4 Mg/2 Ml Vial) 4 mg IVPUSH Q8H PRN PRN Reason: Nausea and Vomiting Pharmacy Consult (Consult Rx Perform Med Rec) 1 each MISCELLANE ONCE PRN PRN Reason: Consult order Polyethylene Glycol (Polyethylene Glycol 3350 17 Gm Powd.Pack) 17 gm PO DAILY PRN PRN Reason: Constipation Pravastatin Sodium (Pravastatin Sodium 20 Mg Tablet) 20 mg PO BEDTIME [facility] Last Admin: 10/22/22 21:48 Dose: 20 mg Documented By: SHIRLEY Rifaximin (Rifaximin 550 Mg Tablet) 550 mg PO BID [facility] Last Admin: 10/23/22 09:14 Dose: 550 mg Documented By: BRADLY Salmeterol Xinafoate (Salmeterol Xinafoate 50 Mcg Blst.W.Dev) 1 puff INHALE RBID [facility] Last Admin: 10/23/22 07:48 Dose: Not Given Documented By: AL Non-Admin Reason: Off unit: Dialysis Sodium Bicarbonate (Sodium Bicarbonate 650 Mg Tablet) 650 mg PO QID PRN PRN Reason: Gastric Reflux Sodium Chloride (0.9 % Sodium Chloride Flush 3 Ml Syringe) 3 ml IVFLUSH QSHIFT [facility] Last Admin: 10/23/22 09:14 Dose: 3 ml Documented By: BRADLY Tiotropium Slaton (Tiotropium Slaton 18 Mcg Cap.W.Dev) 1 puff INHALE RDAILY [facility] Last Admin: 10/23/22 07:48 Dose: Not Given Documented By: AL Non-Admin Reason: Off unit: Dialysis Tramadol HCl (Tramadol Hcl 50 Mg Tablet) 50 mg PO Q6H PRN PRN Reason: Pain, Moderate(Pain Scale 4-6) Last Admin: 10/23/22 02:48 Dose: 50 mg Documented By: SHIRLEY Vancomycin HCl (Vancomycin Hcl Oral Solution 125 Mg/5 Ml Soln.Recon) 125 mg PO Q6H [facility] Last Admin: 10/23/22 09:14 Dose: 125 mg Documented By: BRADLY Labs 10/23/22 05:15 10/23/22 05:15 Labs: Laboratory Results - last 24 hr 10/22/22 10/22/22 10/22/22 07:00 11:30 14:21 MCV MCH MCHC RDW Plt Count MPV Absolute Nucleated RBC Nucleated RBC % (auto) Anion Gap Estim Creat Clear Calc Estimated GFR POC Glucose Random Glucose Calcium Total Bilirubin AST ALT Alkaline Phosphatase Total Protein Albumin Ur 24 Hour Volume 2950 Ur Creatinine mg/dL 27.06 Ur Creatinine 24 Hour 0.8 L Creat Clearance 24 Hr 13.3 L Peritoneal WBC Peritoneal RBC Periton Neutrophils Periton Lymphocytes Peritoneal Other Cells Peritoneal Tot Protein 3.9 Peritoneal Albumin 2.4 Peritoneal LDH 94 Hep Bs Antigen Negative Hep Bs Antibody NONREACTIVE Hep B Core Total Ab Nonreactive 10/22/22 10/22/22 10/22/22 14:21 16:00 19:51 MCV MCH MCHC RDW Plt Count MPV Absolute Nucleated RBC Nucleated RBC % (auto) Anion Gap Estim Creat Clear Calc Estimated GFR POC Glucose 80 76 Random Glucose Calcium Total Bilirubin AST ALT Alkaline Phosphatase Total Protein Albumin Ur 24 Hour Volume Ur Creatinine mg/dL Ur Creatinine 24 Hour Creat Clearance 24 Hr Peritoneal WBC 0.392 Peritoneal RBC < 0.002 Periton Neutrophils 18 Periton Lymphocytes 5 Peritoneal Other Cells 77 Peritoneal Tot Protein Peritoneal Albumin Peritoneal LDH Hep Bs Antigen Hep Bs Antibody Hep B Core Total Ab 10/23/22 10/23/22 10/23/22 05:15 05:15 08:47 MCV 97.1 MCH 32.5 MCHC 33.5 RDW 15.7 Plt Count 110 L MPV 11.0 Absolute Nucleated RBC 0.000 Nucleated RBC % (auto) 0.0 Anion Gap 20 Estim Creat Clear Calc 28.0 Estimated GFR 18 POC Glucose 76 Random Glucose 56 L* Calcium 8.8 Total Bilirubin 1.2 H AST 10 ALT < 5 Alkaline Phosphatase 104 Total Protein 5.8 L Albumin 3.7 Ur 24 Hour Volume Ur Creatinine mg/dL Ur Creatinine 24 Hour Creat Clearance 24 Hr Peritoneal WBC Peritoneal RBC Periton Neutrophils Periton Lymphocytes Peritoneal Other Cells Peritoneal Tot Protein Peritoneal Albumin Peritoneal LDH Hep Bs Antigen Hep Bs Antibody Hep B Core Total Ab 10/23/22 11:23 MCV MCH MCHC RDW Plt Count MPV Absolute Nucleated RBC Nucleated RBC % (auto) Anion Gap Estim Creat Clear Calc Estimated GFR POC Glucose 100 Random Glucose Calcium Total Bilirubin AST ALT Alkaline Phosphatase Total Protein Albumin Ur 24 Hour Volume Ur Creatinine mg/dL Ur Creatinine 24 Hour Creat Clearance 24 Hr Peritoneal WBC Peritoneal RBC Periton Neutrophils Periton Lymphocytes Peritoneal Other Cells Peritoneal Tot Protein Peritoneal Albumin Peritoneal LDH Hep Bs Antigen Hep Bs Antibody Hep B Core Total Ab Microbiology Microbiology Results: Microbiology 10/22/22 08:55 Blood Culture - Preliminary Blood - Venous No growth after 24 hours. 10/22/22 08:55 Blood Culture - Preliminary Blood - Venous No growth after 24 hours. 10/22/22 14:21 Gram Stain - Final Ascites Fluid Anaerobic Culture - Preliminary No growth to date. Body Fluid Culture - Preliminary No growth after 1 day Assessment and Plan (1) Clostridioides difficile diarrhea: Status: Acute (2) Decompensated heart failure: Status: Acute Plan 67yo M with CKD4, DM2, COPD, HTN, HLD, ZEYAD, AF on apixaban presenting with exertional dyspnea x 1 wk, admitted for CHF exacerbation hospitalization complicated by hepatic encephalopathy, CARY, and Cdiff infection # Cdiff infection -started on po vanco -seen by ID, rec to add deficid as well; total 10 days for both # cirrhosis with ascites - diagnostic tap, ascites most likely from heart failure - GI consulted # CARY/CKD4 - concern for cardiorenal and hepatorenal syndrome, received HD 10/22 and this am. Permacath placed 10/17/22 -nephrology following # acute HFpEF - last TTE 09/25/22 with LVEF 55%, mod diastolic dysfunction, pulmonary HTN - negative 22L thus far - d/c diuretics [torsemide, acetazolamide, metolazone] as starting dialysis today [10/22] #acute toxic metabolic encephalopathy multifactorial due to renal failure, cdif, new HD, and hepatic encephalopathy likely uremia playing significant role - now on HD started on lactulose/rifaximin for hepatic encephalopathy #hypokalemia 40 po K per nephro rec follow renal function # paroxysmal AF s/p PPM placement 09/27 - continue AC with apixaban # DM2 - marco-dose lispro # HTN - amlodipine previously d/c and Imdur, metoprolol tartrate have been on hold # acute/chronic anemia - s/p 2u pRBCs 10/14/22 - likely due to CKD + cirrhosis - H+H stable - continue Fe supplementation #thrombocytopenia chronic # COPD not in acute exac - prn albuterol, controller inhalers [salmeterol, tiotropium] #morbid obesity bmi 40.9 # VTE ppx: apixaban # dispo: will need STR eventually + HD placement attending - dr. edwards In my clinical judgment, the patient requires continued inpatient hospitalization for the following reasons: dialysis initiation, AMS, electrolyte monitoring aboce discussed with pt's Zeus Castano at bedside Time Spent With Patient Time: Total time managing care of this patient today ____ minutes. Quality Stroke Does the patient have a stroke diagnosis?: No VTE Prior VTE?: No VTE Risk Level:: Medical - moderate - high VTE Device Contraindication: Treatment Not Indicated VTE Drug Contraindication: N/A - Med Ordered
[2022-10-23] MEDS: Potassium Chloride Packet 20 MEQ PACKET 40 MEQ PO (12:30)
[2022-10-23 13:43] LABS: Ammonia 25 umol/L (13-55)
[2022-10-23 16:47] LABS: Glucose, Whole Blood 83 mg/dL (60-115)
--- NOTE | 2022-10-23 17:12 | MHC.SL.SWA ---
Speech Pathologist Impression: Risk of Aspiration Due to: Medically Fragile Dysphasia Diet Status: Mild to moderate oropharyngeal dysphagia, Liquid Consistency and Strategies for Safe Swallow: Liquid Intake Recommendation: Thin Liquid Intake Strategies: Small Sips Solid Food Consistency: Dietary Recommendations: Chopped/Advanced (NDD3) Additional Modifications to Solid Foods: Recommend full supervision during all meals with monitor for signs of aspiration (coughing, throat clearing, upper respiratory congestion after swallow). Do not attempt if patient is too lethargic. Discontinue meal if signs of aspiration. Blend gravies and sauces into meal. Avoid mixed consistencies, including and in particular soups and cereals. Oral Medication Intake: Whole with Puree Please contact the pharmacy regarding appropriate crushable or liquid drug formulations that are available whenever modified delivery is recommended. Compensatory Strategies and Precautions to be Taken for Safe Swallow: Sitting Upright (90 deg) Liquids from Cup Small Bites and Sips Alternate Liquids/Solids Oral Check Supervision While Eating and Drinking for Safe Swallow: Total Supervision (1:1) Foods to Avoid: Mixed consistencies (soups, cereals), difficult to chew solids. Swallowing Recommended Treatments: Compens. Strategy Educat. Recommendation for Speech: Inpatient Speech Therapy Comment: Patient presents with a mild to moderate oropharyngeal dysphagia, characterized by a consistent delay initiating swallow, with longer delay noted on solid consistencies, and slow, mildly disorganized oral phase of swallow. Patient evidenced clinical signs of aspiration on regular food item with mixed consistencies (melon/juice). Recommend DOWNGRADE diet to Chopped/Advanced (NDD2) with THIN liquids, pills whole in puree. Patient will require supervision at all meals with close monitor for signs of aspiration. Discontinue if patient evidences coughing, wet voice, throat clearing or increasing upper respiratory congestion. Do not attempt if patient is fatigued. Avoid all mixed consistencies. , RD notified of recommendation by secure text, discussed with RN in person. ASSISTANT PRODUCT MANAGER will continue to follow for toleration of diet, re-assessment of swallow as needed. ASSISTANT PRODUCT MANAGER made diet adjustment in orders. Frequency/Duration: M-F while inpatient Date Range for Service Req: Timeline to reassess: Electrical And Electronic Assembler Clinican/Clinical Fellow: No Supervisory Statement: I have reviewed and agree with the student/clinical fellow's documentation: N/A Speech Language Pathologist: Salima Mueller M.A., [facility]-ASSISTANT PRODUCT MANAGER
[2022-10-23] MEDS: Salmeterol Xinafoate 50 MCG BLST.W.DEV 1 PUFF INHALE (19:27)
[2022-10-23 20:02] LABS: Glucose, Whole Blood 92 mg/dL (60-115)
[2022-10-23] MEDS: Doxazosin Mesylate 2 MG TABLET 4 MG PO (20:36)
[2022-10-23] MEDS: Lactulose 20 GM/30 ML SOLUTION 30 GM PO (20:36)
[2022-10-23] MEDS: Fidaxomicin 200 MG TABLET PO (20:37)
[2022-10-23] MEDS: Pravastatin Sodium 20 MG TABLET PO (20:37)
[2022-10-24] VITALS (7 sets, daily range): BP systolic 114–141; BP diastolic 53–73; PULSE 75–86; RESP 16–20; TEMP 36.3–37.6; O2SAT 93–98
[2022-10-24] MEDS: vancomycin HCL Oral Solution 125 MG/5 ML SOLN.RECON PO ×4 (03:19→21:29)
[2022-10-24 06:31] LABS: Hematocrit 28.6 % (42.0-52.0); Hemoglobin 9.3 g/dl (14.0-18.0); Mean Corpuscular HGB Conc 32.5 g/dl (31.0-36.0); Mean Corpuscular Hemoglobin 31.6 pg (27.0-33.0); Mean Corpuscular Volume 97.3 fL (80.0-98.0); Mean Platelet Volume 10.3 fL (9.4-12.4); Platelet Count 106 X10*3/uL (160-400); Red Blood Count 2.94 X10*6/uL (4.60-5.80); White Blood Count 7.5 X10*3/uL (4.8-10.8)
[2022-10-24 07:07] LABS: Anion Gap 16 (12-20); Blood Urea Nitrogen 59 mg/dL (9-16); Calcium 8.9 mg/dL (8.4-10.2); Carbon Dioxide 26 mmol/L (22-29); Chloride 102 mmol/L (96-108); Creatinine Clr Calc Pharmacy 33.1; Estimated Glomerular Filt Rate 21; Glucose Random 74 mg/dL (60-115); Potassium 2.6 mmol/L (3.3-5.1); Sodium 141 mmol/L (135-145)
[2022-10-24 07:13] LABS: Glucose, Whole Blood 85 mg/dL (60-115)
[2022-10-24] MEDS: Lactulose 20 GM/30 ML SOLUTION 30 GM PO ×2 (07:42→13:36)
[2022-10-24] MEDS: Apixaban 2.5 MG TABLET PO ×2 (07:43→21:30)
[2022-10-24] MEDS: Ammonium Lactate 12 % Cream 140 GM TUBE 1 APPL TOPICAL (07:43)
[2022-10-24] MEDS: rifAXIMin 550 MG TABLET PO ×2 (07:43→21:30)
[2022-10-24] MEDS: calcitrioL 0.25 MCG CAPSULE 0.5 MCG PO (07:43)
[2022-10-24] MEDS: Ferrous Sulfate 324 MG TABLET.DR PO (07:43)
[2022-10-24] MEDS: Fidaxomicin 200 MG TABLET PO ×2 (07:43→21:30)
[2022-10-24] MEDS: 0.9 % Sodium Chloride Flush 3 ML SYRINGE IVFLUSH ×3 (07:43→21:31)
[2022-10-24] MEDS: Potassium Chloride Packet 20 MEQ PACKET 40 MEQ PO ×4 (07:43→21:29)
[2022-10-24] MEDS: Nystatin Powder 15 GM BOTTLE 1 APPL TOPICAL ×2 (07:44→21:43)
[2022-10-24] MEDS: Clotrimazole 1 % Cream 15 GM TUBE 1 APPL TOPICAL ×2 (07:44→21:43)
[2022-10-24] MEDS: Salmeterol Xinafoate 50 MCG BLST.W.DEV 1 PUFF INHALE (08:40)
--- NOTE | 2022-10-24 10:08 | MHC.CM.PN ---
Per ROUNDS discussion, Patient is not yet medically cleared for dc (Initiation of HD); Patient will need a PT eval to assist with disposition. CM will follow.
[2022-10-24] MEDS: Magnesium Sulfate/H2O 2 GM/50 ML PIGGYBACK IV (10:26)
[2022-10-24 11:06] LABS: Magnesium 1.8 mg/dL (1.6-2.6)
[2022-10-24 11:10] LABS: Glucose, Whole Blood 105 mg/dL (60-115)
--- NOTE | 2022-10-24 11:26 | HO.PM.IMPN ---
Subjective Subjective Date of Service: 10/24/22 Interval History: seen and examined this morning follow up for renal failure, chf no overnight events, was noted to have 13 beat vtach this am patient with no specific complaints at this time. he is awake, alert and able to state his name, the hospital and year Review of Systems Review of Systems: Yes all other systems are reviewed and are negative Constitutional Constitutional: Denies chills and Denies fever(s) Cardiovascular Cardiovascular: Denies chest pain, Denies palpitations and Denies dyspnea Respiratory Respiratory: Denies dyspnea Gastrointestinal Gastrointestinal: Denies abdominal pain Endocrine Endocrine: Denies palpitations Physical Exam Vital Signs: Vital Signs: Last Vital Signs Temp 99.3 F 10/24/22 11:12 Pulse 86 10/24/22 11:12 Resp 16 10/24/22 11:12 BP 129/59 L 10/24/22 11:12 Pulse Ox 93 10/24/22 11:12 O2 Del Method Room Air 10/24/22 11:12 BMI result Body Mass Index 40.8 Const: General: comfortable, alert, awake and ill appearing Nutritional Appearance: overweight Orientation/consciousness: patient oriented x3 Chest: Other: permcath present right side pacemaker site left side with some swelling GI: Other: rectal tube in place Palpation (GI): Soft to palpation and nontender : Other: garcia present, draining clear yellow urine Skin: Other: chronic b/l lower extremity skin changes Neuro: General: patient oriented x3 and moves all extremities Objective Data Active Medications Acetaminophen (Acetaminophen 325 Mg Tablet) 650 mg PO Q6H PRN PRN Reason: Pain, Mild (Pain Scale 1-3) Last Admin: 10/22/22 05:19 Dose: 650 mg Documented By: SHIRLEY Albuterol Sulfate (Albuterol Sulfate 90 Mcg 8 Gm Inhaler) 2 puff INHALE Q4H PRN PRN Reason: Shortness Of Breath Or Wheezing Apixaban (Apixaban 2.5 Mg Tablet) 2.5 mg PO BID [facility] Last Admin: 10/24/22 07:43 Dose: 2.5 mg Documented By: JIMI Calcitriol (Calcitriol 0.25 Mcg Capsule) 0.5 mcg PO DAILY [facility] Last Admin: 10/24/22 07:43 Dose: 0.5 mcg Documented By: JIMI Clotrimazole (Clotrimazole 1 % Cream 15 Gm Tube) 1 appl TOPICAL BID [facility]; Protocol Last Admin: 10/24/22 07:44 Dose: 1 appl Documented By: JIMI Docusate Sodium (Docusate Sodium 100 Mg Capsule) 100 mg PO DAILY PRN PRN Reason: Constipation Doxazosin Mesylate (Doxazosin Mesylate 2 Mg Tablet) 4 mg PO BEDTIME [facility] Last Admin: 10/23/22 20:36 Dose: 4 mg Documented By: BROCK Ferrous Sulfate (Ferrous Sulfate 324 Mg Tablet.Dr) 324 mg PO DAILY [facility] Last Admin: 10/24/22 07:43 Dose: 324 mg Documented By: JIMI Fidaxomicin (Fidaxomicin 200 Mg Tablet) 200 mg PO BID [facility] Last Admin: 10/24/22 07:43 Dose: 200 mg Documented By: JIMI Glucose (Glucose Gel 15 Gm Gel..Gram.) 15 gm PO Q15M PRN; Protocol PRN Reason: per Hypoglycemia Standing Ord. Last Admin: 10/23/22 08:03 Dose: 15 gm Documented By: BRADLY Dextrose (D10) 250 mls @ 750 mls/hr IV Q15M PRN; Protocol PRN Reason: per Hypoglycemia Standing Ord. Magnesium Sulfate (Magnesium Sulfate/H2o) 2 gm in 50 mls @ 25 mls/hr IV ONCE ONE Stop: 10/24/22 12:20 Last Admin: 10/24/22 10:26 Dose: 25 mls/hr Documented By: JIMI Insulin Human Lispro (Insulin Lispro 100 Unit/Ml 3 Ml Vial) 0 unit SUBCUT QIDACHS [facility]; Protocol Last Admin: 10/24/22 11:19 Dose: Not Given Documented By: JIMI Non-Admin Reason: No Insulin Coverage Isosorbide Mononitrate (Isosorbide Mononitrate 30 Mg Tab.Er.24h) 30 mg PO DAILY [facility]; Protocol Last Admin: 10/14/22 09:29 Dose: 30 mg Documented By: HALIE Lactic Acid (Ammonium Lactate 12 % Cream 140 Gm Tube) 1 appl TOPICAL BID PRN; Protocol PRN Reason: Dry Skin Last Admin: 10/24/22 07:43 Dose: 1 appl Documented By: JIMI Lactulose (Lactulose 20 Gm/30 Ml Solution) 30 gm PO TID [facility] Last Admin: 10/24/22 07:42 Dose: 30 gm Documented By: JIMI Metoprolol Tartrate (Metoprolol Tartrate 12.5 Mg Halftab) 12.5 mg PO BID [facility]; Protocol Nystatin (Nystatin Powder 15 Gm Bottle) 1 appl TOPICAL BID [facility]; Protocol Last Admin: 10/24/22 07:44 Dose: 1 appl Documented By: JIMI Ondansetron HCl (Ondansetron Hcl 4 Mg/2 Ml Vial) 4 mg IVPUSH Q8H PRN PRN Reason: Nausea and Vomiting Pharmacy Consult (Consult Rx Perform Med Rec) 1 each MISCELLANE ONCE PRN PRN Reason: Consult order Polyethylene Glycol (Polyethylene Glycol 3350 17 Gm Powd.Pack) 17 gm PO DAILY PRN PRN Reason: Constipation Potassium Chloride (Potassium Chloride Packet 20 Meq Packet) 40 meq PO ONCE ONE Stop: 10/24/22 11:31 Last Admin: 10/24/22 11:26 Dose: 40 meq Documented By: JIMI Pravastatin Sodium (Pravastatin Sodium 20 Mg Tablet) 20 mg PO BEDTIME [facility] Last Admin: 10/23/22 20:37 Dose: 20 mg Documented By: BROCK Rifaximin (Rifaximin 550 Mg Tablet) 550 mg PO BID [facility] Last Admin: 10/24/22 07:43 Dose: 550 mg Documented By: JIMI Salmeterol Xinafoate (Salmeterol Xinafoate 50 Mcg Blst.W.Dev) 1 puff INHALE RBID [facility] Last Admin: 10/24/22 08:40 Dose: 1 puff Documented By: PEDRO Sodium Bicarbonate (Sodium Bicarbonate 650 Mg Tablet) 650 mg PO QID PRN PRN Reason: Gastric Reflux Sodium Chloride (0.9 % Sodium Chloride Flush 3 Ml Syringe) 3 ml IVFLUSH QSHIFT [facility] Last Admin: 10/24/22 07:43 Dose: 3 ml Documented By: JIMI Tiotropium [place] (Tiotropium [place] 18 Mcg Cap.W.Dev) 1 puff INHALE RDAILY [facility] Last Admin: 10/24/22 08:40 Dose: 1 puff Documented By: PEDRO Tramadol HCl (Tramadol Hcl 50 Mg Tablet) 50 mg PO Q6H PRN PRN Reason: Pain, Moderate(Pain Scale 4-6) Last Admin: 10/23/22 02:48 Dose: 50 mg Documented By: SHIRLEY Vancomycin HCl (Vancomycin Hcl Oral Solution 125 Mg/5 Ml Soln.Recon) 125 mg PO Q6H ROBERT Stop: 11/01/22 19:59 Last Admin: 10/24/22 07:42 Dose: 125 mg Documented By: JIMI Labs 10/24/22 05:59 10/24/22 05:59 Labs: Laboratory Results - last 24 hr 10/23/22 10/23/22 10/23/22 11:23 13:28 16:41 MCV MCH MCHC RDW Plt Count MPV Absolute Nucleated RBC Nucleated RBC % (auto) Anion Gap Estim Creat Clear Calc Estimated GFR POC Glucose 100 83 Random Glucose Calcium Magnesium Ammonia 25 10/23/22 10/24/22 10/24/22 19:50 05:59 05:59 MCV 97.3 MCH 31.6 MCHC 32.5 RDW 15.0 Plt Count 106 L MPV 10.3 Absolute Nucleated RBC 0.000 Nucleated RBC % (auto) 0.0 Anion Gap 16 Estim Creat Clear Calc 33.1 Estimated GFR 21 POC Glucose 92 Random Glucose 74 Calcium 8.9 Magnesium 1.8 Ammonia 10/24/22 10/24/22 07:05 11:07 MCV MCH MCHC RDW Plt Count MPV Absolute Nucleated RBC Nucleated RBC % (auto) Anion Gap Estim Creat Clear Calc Estimated GFR POC Glucose 85 105 Random Glucose Calcium Magnesium Ammonia Microbiology Microbiology Results: Microbiology 10/22/22 08:55 Blood Culture - Preliminary Blood - Venous No growth after 48 hours. 10/22/22 08:55 Blood Culture - Preliminary Blood - Venous No growth after 48 hours. 10/22/22 14:21 Gram Stain - Final Ascites Fluid Anaerobic Culture - Preliminary No growth to date. Body Fluid Culture - Final No growth after 2 days Assessment and Plan (1) Clostridioides difficile diarrhea: Status: Acute (2) Acute on chronic diastolic CHF (congestive heart failure), NYHA class 3: Status: Acute (3) Paroxysmal A-fib: Status: Acute (4) Decompensated heart failure: Status: Acute Plan 67yo M with CKD4, DM2, COPD, HTN, HLD, ZEYAD, AF on apixaban presenting with exertional dyspnea x 1 wk, admitted for CHF exacerbation hospitalization complicated by hepatic encephalopathy, CARY, and Cdiff infection # Cdiff infection -started on po vanco -seen by ID, rec to add deficid as well; total 10 days for both #vtach had 13 beat episode 10/24 will give empiric magnesium k 40 q4h x2 and then repeat level resume low dose BB, up titrate prn echo from september with preserved EF tele monitoring # cirrhosis with ascites - diagnostic tap, ascites most likely from heart failure - GI following # CARY/CKD4 - concern for cardiorenal and hepatorenal syndrome, received HD 10/22 and this am. Permacath placed 10/17/22 -nephrology following # acute HFpEF - last TTE 09/25/22 with LVEF 55%, mod diastolic dysfunction, pulmonary HTN - negative 22L thus far - d/c diuretics [torsemide, acetazolamide, metolazone] as started dialysis [10/22] #acute toxic metabolic encephalopathy multifactorial due to renal failure, cdif, new HD, and hepatic encephalopathy likely uremia playing significant role - now on HD started on lactulose/rifaximin for hepatic encephalopathy #hypokalemia 40 po x2 doses today per nephro rec follow levels closely # paroxysmal AF s/p PPM placement 09/27 - continue AC with apixaban # DM2 - correction-dose lispro # HTN - amlodipine previously d/c and Imdur, metoprolol tartrate have been on hold resume metoprolol # acute/chronic anemia - s/p 2u pRBCs 10/14/22 - likely due to CKD + cirrhosis - H+H stable - continue Fe supplementation #thrombocytopenia chronic # COPD not in acute exac - prn albuterol, controller inhalers [salmeterol, tiotropium] #morbid obesity bmi 40.9 # VTE ppx: apixaban # dispo: will need STR eventually + HD placement attending - dr. edwards In my clinical judgment, the patient requires continued inpatient hospitalization for the following reasons: dialysis initiation, AMS, electrolyte monitoring, telemetry monitoring Time Spent With Patient Time: Total time managing care of this patient today ____ minutes. Quality Stroke Does the patient have a stroke diagnosis?: No VTE Prior VTE?: No VTE Risk Level:: Medical - moderate - high VTE Device Contraindication: Treatment Not Indicated VTE Drug Contraindication: N/A - Med Ordered
--- NOTE | 2022-10-24 12:50 | PM.PNNEP ---
Subjective Subjective Date of Service: 10/24/22 Principal diagnosis: Decompensated heart failure Interval history: Events noted Had HD yesterday K is low Right hand edema Doppler- NO DVT Physical Exam Vital Signs: Vital Signs: Last Vital Signs Temp 99.3 F 10/24/22 11:12 Pulse 86 10/24/22 11:12 Resp 16 10/24/22 11:12 BP 129/59 L 10/24/22 11:12 Pulse Ox 93 10/24/22 11:12 O2 Del Method Room Air 10/24/22 11:12 BMI result Body Mass Index 40.8 Comfortable Neck is supple Lung: Air entry equal with rhonchi Heart: S1,S2, normal. No rub Abd: Soft. BS + Distended NS : Alert.No asterexis Ext: 1+ edema Objective Data Labs 10/24/22 05:59 10/24/22 05:59 Labs: Laboratory Results - last 24 hr 10/23/22 10/23/22 10/23/22 13:28 16:41 19:50 WBC RBC Hgb Hct MCV MCH MCHC RDW Plt Count MPV Absolute Nucleated RBC Nucleated RBC % (auto) Sodium Potassium Chloride Carbon Dioxide Anion Gap BUN Creatinine Estim Creat Clear Calc Estimated GFR POC Glucose 83 92 Random Glucose Calcium Magnesium Ammonia 25 10/24/22 10/24/22 10/24/22 05:59 05:59 07:05 WBC 7.5 RBC 2.94 L Hgb 9.3 L Hct 28.6 L MCV 97.3 MCH 31.6 MCHC 32.5 RDW 15.0 Plt Count 106 L MPV 10.3 Absolute Nucleated RBC 0.000 Nucleated RBC % (auto) 0.0 Sodium 141 Potassium 2.6 L Chloride 102 Carbon Dioxide 26 Anion Gap 16 BUN 59 H Creatinine 2.93 H Estim Creat Clear Calc 33.1 Estimated GFR 21 POC Glucose 85 Random Glucose 74 Calcium 8.9 Magnesium 1.8 Ammonia 10/24/22 11:07 WBC RBC Hgb Hct MCV MCH MCHC RDW Plt Count MPV Absolute Nucleated RBC Nucleated RBC % (auto) Sodium Potassium Chloride Carbon Dioxide Anion Gap BUN Creatinine Estim Creat Clear Calc Estimated GFR POC Glucose 105 Random Glucose Calcium Magnesium Ammonia Microbiology Microbiology Results: Microbiology 10/22/22 08:55 Blood - Venous Blood Culture - Preliminary No growth after 48 hours. 10/22/22 08:55 Blood - Venous Blood Culture - Preliminary No growth after 48 hours. 10/22/22 14:21 Ascites Fluid Gram Stain - Final 10/22/22 14:21 Ascites Fluid Anaerobic Culture - Preliminary No growth to date. 10/22/22 14:21 Ascites Fluid Body Fluid Culture - Final No growth after 2 days 10/14/22 Unknown Urine clean catch - Urine keys top Urine Culture - Final Procedures Date of Service Date of Service: 10/24/22 Assessment & Plan Assessment and plan (1) Acute on chronic diastolic CHF (congestive heart failure), NYHA class 3: Status: Acute (2) CKD (chronic kidney disease) stage 4, GFR 15-29 ml/min: Status: Acute Plan HD 3 X week Next HD tomorrow and fluid removal Hypokalemia Replace K orally CHD- Fluid removal with HD Time Spent With Patient Time: Total time managing care of this patient today ____ minutes. Progress Note: Quality Stroke Does the patient have a stroke diagnosis?: No
[2022-10-24 13:48] LABS: Potassium 3.1 mmol/L (3.3-5.1)
--- NOTE | 2022-10-24 14:28 | MHC.SL.SWA ---
Speech Pathologist Impression: Risk of aspiration, oropharyngeal dysphagia Risk of Aspiration Due to: Medically Fragile Dysphasia Diet Status: Downgrade from NDD3/thin to NDD2/HTL Liquid Consistency and Strategies for Safe Swallow: Liquid Intake Recommendation: Honey Thick Liquid Intake Strategies: Small Sips No Straws Solid Food Consistency: Dietary Recommendations: Grnd/Mech Altered (NDD2) Additional Modifications to Solid Foods: Recommend DOWNGRADE to GROUND/MECH ALTERED (NDD2) solids and HONEY THICK liquids (avoid straws). Patient will require supervision at all meals with close monitor for signs of aspiration. Discontinue if patient evidences coughing, wet voice, throat clearing or increasing upper respiratory congestion. Do not attempt if patient is fatigued. Avoid all mixed consistencies. , KARON notified of change by secure text, discussed with RN in person. Updated whiteboard in pt's room w/ this recommendation. MORT[facility] MAN will continue to follow for toleration of diet, re-assessment of swallow as needed. MORTAR MAN made diet adjustment in orders. Oral Medication Intake: Whole with Puree Please contact the pharmacy regarding appropriate crushable or liquid drug formulations that are available whenever modified delivery is recommended. Compensatory Strategies and Precautions to be Taken for Safe Swallow: Sitting Upright (90 deg) Double Swallow No Straw Small Bites and Sips Rate of Ingestion Change Avoid Specific Foods Supervision While Eating and Drinking for Safe Swallow: Total Supervision (1:1) Foods to Avoid: Mixed consistencies (soups, cereals), difficult to chew solids. Swallowing Recommended Treatments: Compens. Strategy Educat. Recommendation for Speech: Inpatient Speech Therapy Frequency/Duration: M-F while inpatient [facility] Clinican/Clinical Fellow: No Supervisory Statement: I have reviewed and agree with the student/clinical fellow's documentation: N/A Speech Language Pathologist: Judy Sandoval M.A., CCC-MORTAR MAN
[2022-10-24 16:07] LABS: Glucose, Whole Blood 109 mg/dL (60-115)
[2022-10-24 17:34] LABS: Urea, 24 Hr Urine 9 g/24 h (6-17)
[2022-10-24 19:23] LABS: Glucose, Whole Blood 109 mg/dL (60-115)
[2022-10-24] MEDS: Pravastatin Sodium 20 MG TABLET PO (21:30)
[2022-10-24] MEDS: Doxazosin Mesylate 2 MG TABLET 4 MG PO (21:30)
[2022-10-24] MEDS: Metoprolol Tartrate 12.5 MG HALFTAB PO (21:30)
[2022-10-25] VITALS (8 sets, daily range): BP systolic 102–150; BP diastolic 55–89; PULSE 73–101; RESP 18–20; TEMP 36.3–37.6; O2SAT 93–97
[2022-10-25] MEDS: vancomycin HCL Oral Solution 125 MG/5 ML SOLN.RECON PO ×4 (02:24→21:00)
[2022-10-25 07:16] LABS: Anion Gap 17 (12-20); Blood Urea Nitrogen 65 mg/dL (9-16); Calcium 8.9 mg/dL (8.4-10.2); Carbon Dioxide 26 mmol/L (22-29); Chloride 105 mmol/L (96-108); Creatinine Clr Calc Pharmacy 28.5; Estimated Glomerular Filt Rate 18; Glucose Random 84 mg/dL (60-115); Magnesium 2.1 mg/dL (1.6-2.6); Potassium 3.2 mmol/L (3.3-5.1); Sodium 145 mmol/L (135-145)
[2022-10-25] MEDS: Salmeterol Xinafoate 50 MCG BLST.W.DEV 1 PUFF INHALE ×2 (07:29→18:51)
[2022-10-25 08:18] LABS: Glucose, Whole Blood 96 mg/dL (60-115)
[2022-10-25] MEDS: Fidaxomicin 200 MG TABLET PO ×2 (08:53→22:46)
[2022-10-25] MEDS: Potassium Chloride ER 20 MEQ TAB.ER.PRT 40 MEQ PO (08:53)
[2022-10-25] MEDS: calcitrioL 0.25 MCG CAPSULE 0.5 MCG PO (08:54)
[2022-10-25] MEDS: Ferrous Sulfate 324 MG TABLET.DR PO (08:54)
[2022-10-25] MEDS: Metoprolol Tartrate 12.5 MG HALFTAB PO ×2 (08:54→22:45)
[2022-10-25] MEDS: rifAXIMin 550 MG TABLET PO ×2 (08:54→22:46)
[2022-10-25] MEDS: Apixaban 2.5 MG TABLET PO ×2 (08:54→22:46)
[2022-10-25] MEDS: 0.9 % Sodium Chloride Flush 3 ML SYRINGE IVFLUSH (08:55)
--- NOTE | 2022-10-25 10:54 | HO.PM.IMPN ---
Subjective Subjective Date of Service: 10/25/22 Interval History: seen and examined this morning follow up for renal failure, chf no overnight events, was noted to have 13 beat vtach this am patient with no specific complaints at this time. he is awake, alert and able to state his name, the hospital and year Review of Systems Review of Systems: Yes all other systems are reviewed and are negative Constitutional Constitutional: Denies chills and Denies fever(s) Cardiovascular Cardiovascular: Denies chest pain, Denies palpitations and Denies dyspnea Respiratory Respiratory: Denies dyspnea Gastrointestinal Gastrointestinal: Denies abdominal pain Endocrine Endocrine: Denies palpitations Physical Exam Vital Signs: Vital Signs: Last Vital Signs Temp 97.3 F 10/25/22 07:59 Pulse 101 H 10/25/22 07:59 Resp 18 10/25/22 07:59 BP 145/78 H 10/25/22 07:59 Pulse Ox 93 10/25/22 07:59 O2 Del Method Room Air 10/25/22 07:59 BMI result Body Mass Index 40.8 Objective Data Active Medications Acetaminophen (Acetaminophen 325 Mg Tablet) 650 mg PO Q6H PRN PRN Reason: Pain, Mild (Pain Scale 1-3) Last Admin: 10/22/22 05:19 Dose: 650 mg Documented By: SHIRLEY Albuterol Sulfate (Albuterol Sulfate 90 Mcg 8 Gm Inhaler) 2 puff INHALE Q4H PRN PRN Reason: Shortness Of Breath Or Wheezing Albuterol/Ipratropium (Albuterol/Iprat 2.5/0.5mg 3 Ml Ampul.Neb) 3 ml INHALE RQ6H WHILE AWAKE PRN PRN Reason: Shortness of Breath/Wheezing Apixaban (Apixaban 2.5 Mg Tablet) 2.5 mg PO BID [facility] Last Admin: 10/25/22 08:54 Dose: 2.5 mg Documented By: LAVINIA Calcitriol (Calcitriol 0.25 Mcg Capsule) 0.5 mcg PO DAILY [facility] Last Admin: 10/25/22 08:54 Dose: 0.5 mcg Documented By: LAVINIA Clotrimazole (Clotrimazole 1 % Cream 15 Gm Tube) 1 appl TOPICAL BID [facility]; Protocol Last Admin: 10/24/22 21:43 Dose: 1 appl Documented By: SHIRLEY Docusate Sodium (Docusate Sodium 100 Mg Capsule) 100 mg PO DAILY PRN PRN Reason: Constipation Doxazosin Mesylate (Doxazosin Mesylate 2 Mg Tablet) 4 mg PO BEDTIME [facility] Last Admin: 10/24/22 21:30 Dose: 4 mg Documented By: SHIRLEY Ferrous Sulfate (Ferrous Sulfate 324 Mg Tablet.Dr) 324 mg PO DAILY [facility] Last Admin: 10/25/22 08:54 Dose: 324 mg Documented By: LAVINIA Fidaxomicin (Fidaxomicin 200 Mg Tablet) 200 mg PO BID [facility] Stop: 11/02/22 20:59 Last Admin: 10/25/22 08:53 Dose: 200 mg Documented By: LAVINIA Glucose (Glucose Gel 15 Gm Gel..Gram.) 15 gm PO Q15M PRN; Protocol PRN Reason: per Hypoglycemia Standing Ord. Last Admin: 10/23/22 08:03 Dose: 15 gm Documented By: BRADLY Dextrose (D10) 250 mls @ 750 mls/hr IV Q15M PRN; Protocol PRN Reason: per Hypoglycemia Standing Ord. Insulin Human Lispro (Insulin Lispro 100 Unit/Ml 3 Ml Vial) 0 unit SUBCUT QIDACHS [facility]; Protocol Last Admin: 10/25/22 08:16 Dose: Not Given Documented By: LAVINIA Non-Admin Reason: No Insulin Coverage Isosorbide Mononitrate (Isosorbide Mononitrate 30 Mg Tab.Er.24h) 30 mg PO DAILY [facility]; Protocol Last Admin: 10/14/22 09:29 Dose: 30 mg Documented By: HALIE Lactic Acid (Ammonium Lactate 12 % Cream 140 Gm Tube) 1 appl TOPICAL BID PRN; Protocol PRN Reason: Dry Skin Last Admin: 10/24/22 07:43 Dose: 1 appl Documented By: JIMI Lactulose (Lactulose 20 Gm/30 Ml Solution) 30 gm PO TID [facility] Last Admin: 10/25/22 08:55 Dose: Not Given Documented By: LAVINIA Non-Admin Reason: See Note Metoprolol Tartrate (Metoprolol Tartrate 12.5 Mg Halftab) 12.5 mg PO BID [facility]; Protocol Last Admin: 10/25/22 08:54 Dose: 12.5 mg Documented By: LAVINIA Nystatin (Nystatin Powder 15 Gm Bottle) 1 appl TOPICAL BID [facility]; Protocol Last Admin: 10/24/22 21:43 Dose: 1 appl Documented By: SHIRLEY Ondansetron HCl (Ondansetron Hcl 4 Mg/2 Ml Vial) 4 mg IVPUSH Q8H PRN PRN Reason: Nausea and Vomiting Pharmacy Consult (Consult Rx Perform Med Rec) 1 each MISCELLANE ONCE PRN PRN Reason: Consult order Polyethylene Glycol (Polyethylene Glycol 3350 17 Gm Powd.Pack) 17 gm PO DAILY PRN PRN Reason: Constipation Pravastatin Sodium (Pravastatin Sodium 20 Mg Tablet) 20 mg PO BEDTIME [facility] Last Admin: 10/24/22 21:30 Dose: 20 mg Documented By: SHIRLEY Rifaximin (Rifaximin 550 Mg Tablet) 550 mg PO BID [facility] Last Admin: 10/25/22 08:54 Dose: 550 mg Documented By: LAVINIA Salmeterol Xinafoate (Salmeterol Xinafoate 50 Mcg Blst.W.Dev) 1 puff INHALE RBID [facility] Last Admin: 10/25/22 07:29 Dose: 1 puff Documented By: AL Sodium Bicarbonate (Sodium Bicarbonate 650 Mg Tablet) 650 mg PO QID PRN PRN Reason: Gastric Reflux Sodium Chloride (0.9 % Sodium Chloride Flush 3 Ml Syringe) 3 ml IVFLUSH QSHIFT [facility] Last Admin: 10/25/22 08:55 Dose: 3 ml Documented By: LAIVNIA Tiotropium [place] (Tiotropium [place] 18 Mcg Cap.W.Dev) 1 puff INHALE RDAILY [facility] Last Admin: 10/25/22 07:29 Dose: 1 puff Documented By: AL Tramadol HCl (Tramadol Hcl 50 Mg Tablet) 50 mg PO Q6H PRN PRN Reason: Pain, Moderate(Pain Scale 4-6) Last Admin: 10/23/22 02:48 Dose: 50 mg Documented By: SHIRLEY Vancomycin HCl (Vancomycin Hcl Oral Solution 125 Mg/5 Ml Soln.Recon) 125 mg PO Q6H [facility] Stop: 11/01/22 19:59 Last Admin: 10/25/22 08:52 Dose: 125 mg Documented By: LAVINIA Labs 10/24/22 05:59 10/25/22 06:25 Labs: Laboratory Results - last 24 hr 10/22/22 10/24/22 10/24/22 07:00 05:59 11:07 Anion Gap Estim Creat Clear Calc Estimated GFR POC Glucose 105 Random Glucose Calcium Magnesium 1.8 Urine Urea 24 Hr 9 10/24/22 10/24/22 10/25/22 16:04 19:20 06:25 Anion Gap 17 Estim Creat Clear Calc 28.5 Estimated GFR 18 POC Glucose 109 109 Random Glucose 84 Calcium 8.9 Magnesium 2.1 Urine Urea 24 Hr 10/25/22 08:01 Anion Gap Estim Creat Clear Calc Estimated GFR POC Glucose 96 Random Glucose Calcium Magnesium Urine Urea 24 Hr Microbiology Microbiology Results: Microbiology 10/22/22 14:21 Gram Stain - Final Ascites Fluid Anaerobic Culture - Preliminary No growth to date. Body Fluid Culture - Final No growth after 2 days 10/22/22 08:55 Blood Culture - Preliminary Blood - Venous No growth after 48 hours. 10/22/22 08:55 Blood Culture - Preliminary Blood - Venous No growth after 48 hours. Assessment and Plan (1) Clostridioides difficile diarrhea: Status: Acute (2) Acute on chronic diastolic CHF (congestive heart failure), NYHA class 3: Status: Acute (3) Paroxysmal A-fib: Status: Acute (4) Decompensated heart failure: Status: Acute Plan 67 year old with CKD4, DM2, COPD, HTN, HLD, ZEYAD, AF on apixaban presenting with exertional dyspnea x 1 wk, admitted for CHF exacerbation hospitalization complicated by hepatic encephalopathy, CARY, and Cdiff infection. Cdiff infection continue po vanco seen by ID, rec to add deficid; total 10 days for both vtach had 13 beat episode 10/24 s/p empiric magnesium k 40 q4h x2 resume low dose BB, up titrate prn echo from september with preserved EF tele monitoring cirrhosis with ascites diagnostic tap, ascites most likely from heart failure GI following CARY/CKD4 concern for cardiorenal and hepatorenal syndrome, received HD 10/22 and this am. Permacath placed 10/17/22 nephrology following HD T<TH<SAT acute HFpEF last TTE 09/25/22 with LVEF 55%, mod diastolic dysfunction, pulmonary HTN negative 22L thus far d/c diuretics [torsemide, acetazolamide, metolazone] as started dialysis [10/22] acute toxic metabolic encephalopathy multifactorial due to renal failure, cdif, new HD, and hepatic encephalopathy likely uremia playing significant role - now on HD started on lactulose/rifaximin for hepatic encephalopathy hypokalemia replaced follow levels closely paroxysmal AF s/p PPM placement 09/27 continue AC with apixaban DM2 ss, ada diet HTN metoprolol acute/chronic anemia s/p 2u pRBCs 10/14/22 likely due to CKD + cirrhosis H+H stable continue Fe supplementation thrombocytopenia chronic COPD not in acute exacerbation prn albuterol, controller inhalers [salmeterol, tiotropium] morbid obesity BMI 40.9 weight management VTE ppx: apixaban attending - dr. Wagoner dispo: will need STR eventually + HD placement In my clinical judgment, the patient requires continued inpatient hospitalization for the following reasons: dialysis initiation, AMS, electrolyte monitoring, telemetry monitoring Time Spent With Patient Time: Total time managing care of this patient today ____ minutes. Quality Stroke Does the patient have a stroke diagnosis?: No VTE Prior VTE?: No VTE Risk Level:: Medical - moderate - high VTE Device Contraindication: Treatment Not Indicated VTE Drug Contraindication: N/A - Med Ordered
--- NOTE | 2022-10-25 12:40 | W.PM.DNNEP ---
Subjective Subjective Principal diagnosis: Decompensated heart failure This patient was seen during dialysis. Interval history: Events noted. Seen during dialysis. Still has diarrhea. Received potassium supplementation yesterday. Current potassium is 3.2. He still has ongoing potassium losses from the diarrhea. The right upper extremity edema has improved. Physical Exam Vital Signs: Vital Signs: Last Vital Signs Temp 97.3 F 10/25/22 07:59 Pulse 101 H 10/25/22 07:59 Resp 18 10/25/22 07:59 BP 145/78 H 10/25/22 07:59 Pulse Ox 93 10/25/22 07:59 O2 Del Method Room Air 10/25/22 07:59 BMI result Body Mass Index 40.8 Comfortable Neck is supple Lung: Air entry decreased bilaterally. Heart: S1,S2, normal. No rub Abd: Soft. BS + NS : Alert.No asterexis Ext: 1+ edema Assessment & Plan Assessment and plan (1) Acute on chronic diastolic CHF (congestive heart failure), NYHA class 3: Status: Acute (2) CKD (chronic kidney disease) stage 4, GFR 15-29 ml/min: Status: Acute Plan He is tolerating dialysis and fluid removal. He is currently on dialysis primarily for fluid management. Clinically is not uremic. We will continue with hemodialysis and remove fluid as tolerated. It is possible that he may require dialysis 2 times a week rather than 3 times. Further clinical course will determine this. Hypokalemia due to GI losses. Add potassium chloride 40 mEq p.o. b.i.d. for now and follow potassium levels. We will use K 3.0 bath during dialysis. Anemia. Due to the combination of iron deficiency and erythropoietin deficiency. I will add Epogen. Time Spent With Patient Time: Total time managing care of this patient today ____ minutes. Procedures Date of Service Date of Service: 10/27/22
[2022-10-25 12:48] LABS: Glucose, Whole Blood 99 mg/dL (60-115)
[2022-10-25] MEDS: Nystatin Powder 15 GM BOTTLE 1 APPL TOPICAL ×2 (13:11→22:48)
[2022-10-25] MEDS: Clotrimazole 1 % Cream 15 GM TUBE 1 APPL TOPICAL ×2 (13:12→22:47)
[2022-10-25] MEDS: Ammonium Lactate 12 % Cream 140 GM TUBE 1 APPL TOPICAL (13:12)
[2022-10-25 16:02] LABS: Glucose, Whole Blood 149 mg/dL (60-115)
--- NOTE | 2022-10-25 17:34 | PC.NURSE ---
Patient off unit this am for dialysis returns early afternoon dressing to right chest access CDI. Vital signs stable. Remains A&OX4. Continues with generalized weakness. Dressing changed to right ankle. [place] catheter in place. Rectal tube in place with liquid stool occasionally leaking, incontinent care provided and creams applied to buttocks. Will continue to monitor and report changes
[2022-10-25 19:40] LABS: Glucose, Whole Blood 133 mg/dL (60-115)
[2022-10-25] MEDS: Doxazosin Mesylate 2 MG TABLET 4 MG PO (22:46)
[2022-10-25] MEDS: Pravastatin Sodium 20 MG TABLET PO (22:46)
[2022-10-26] VITALS (9 sets, daily range): BP systolic 123–141; BP diastolic 56–83; PULSE 62–92; RESP 18–20; TEMP 36.2–37.1; O2SAT 95–98
[2022-10-26] MEDS: vancomycin HCL Oral Solution 125 MG/5 ML SOLN.RECON PO ×4 (03:00→19:45)
[2022-10-26] MEDS: 0.9 % Sodium Chloride Flush 3 ML SYRINGE IVFLUSH ×3 (03:15→19:47)
--- NOTE | 2022-10-26 06:19 | PC.NURSE ---
Assumed care at 19:00. Patient alert, oriented x4, vague at times. Patient endorses tenderness to touch in right hand and has nonverbal signs of pain there as well as mild nonpitting swelling. Patient reports history of ?gout, and says he may have been taking steroids for this, which does not appear to be represented by his medication list. Patient declines Ultram at this time, pending MD coming to bedside to assess. MD was notified and reports will come assess or relay to daytime provider.
[2022-10-26] MEDS: Salmeterol Xinafoate 50 MCG BLST.W.DEV 1 PUFF INHALE ×2 (07:45→19:29)
[2022-10-26 07:49] LABS: Glucose, Whole Blood 92 mg/dL (60-115)
[2022-10-26 08:05] LABS: Anion Gap 16 (12-20); Blood Urea Nitrogen 48 mg/dL (9-16); Calcium 8.6 mg/dL (8.4-10.2); Carbon Dioxide 23 mmol/L (22-29); Chloride 104 mmol/L (96-108); Creatinine Clr Calc Pharmacy 34.4; Estimated Glomerular Filt Rate 22; Glucose Random 92 mg/dL (60-115); Potassium 3.5 mmol/L (3.3-5.1); Sodium 139 mmol/L (135-145)
[2022-10-26] MEDS: rifAXIMin 550 MG TABLET PO ×2 (08:28→19:44)
[2022-10-26] MEDS: calcitrioL 0.25 MCG CAPSULE 0.5 MCG PO (08:28)
[2022-10-26] MEDS: Ferrous Sulfate 324 MG TABLET.DR PO (08:28)
[2022-10-26] MEDS: Metoprolol Tartrate 12.5 MG HALFTAB PO ×2 (08:28→19:44)
[2022-10-26] MEDS: Apixaban 2.5 MG TABLET PO ×2 (08:29→19:45)
[2022-10-26] MEDS: Fidaxomicin 200 MG TABLET PO ×2 (08:29→19:45)
[2022-10-26] MEDS: Nystatin Powder 15 GM BOTTLE 1 APPL TOPICAL ×2 (08:29→19:46)
[2022-10-26] MEDS: Clotrimazole 1 % Cream 15 GM TUBE 1 APPL TOPICAL ×2 (08:29→19:45)
[2022-10-26] MEDS: Ammonium Lactate 12 % Cream 140 GM TUBE 1 APPL TOPICAL (08:37)
--- NOTE | 2022-10-26 09:03 | HO.PM.IMPN ---
Subjective Subjective Date of Service: 10/26/22 Interval History: seen and examined this morning follow up for renal failure, chf doing better today Review of Systems Review of Systems: Yes all other systems are reviewed and are negative Constitutional Constitutional: Denies chills and Denies fever(s) Cardiovascular Cardiovascular: Denies chest pain, Denies palpitations and Denies dyspnea Respiratory Respiratory: Denies dyspnea Gastrointestinal Gastrointestinal: Denies abdominal pain Endocrine Endocrine: Denies palpitations Physical Exam Vital Signs: Vital Signs: Last Vital Signs Temp 97.4 F 10/26/22 08:00 Pulse 84 10/26/22 08:00 Resp 20 10/26/22 08:00 BP 129/83 10/26/22 08:00 Pulse Ox 97 10/26/22 08:00 O2 Del Method Room Air 10/26/22 08:00 BMI result Body Mass Index 40.8 Appearing in no acute distress lung sounds are clear to auscultation heart regular rate rhythm, clear S1, S2 positive bowel sounds, abdomen is soft, nontender neuro patient is alert x3, no focal deficits Stasis dermatitis to LE Right hand edema Right hand Objective Data Active Medications Acetaminophen (Acetaminophen 325 Mg Tablet) 650 mg PO Q6H PRN PRN Reason: Pain, Mild (Pain Scale 1-3) Last Admin: 10/22/22 05:19 Dose: 650 mg Documented By: SHIRLEY Albuterol Sulfate (Albuterol Sulfate 90 Mcg 8 Gm Inhaler) 2 puff INHALE Q4H PRN PRN Reason: Shortness Of Breath Or Wheezing Albuterol/Ipratropium (Albuterol/Iprat 2.5/0.5mg 3 Ml Ampul.Neb) 3 ml INHALE RQ6H WHILE AWAKE PRN PRN Reason: Shortness of Breath/Wheezing Apixaban (Apixaban 2.5 Mg Tablet) 2.[address] [facility] Last Admin: 10/26/22 08:29 Dose: 2.5 mg Documented By: IKE Calcitriol (Calcitriol 0.25 Mcg Capsule) 0.[address] [facility] Last Admin: 10/26/22 08:28 Dose: 0.5 mcg Documented By: IKE Clotrimazole (Clotrimazole 1 % Cream 15 Gm Tube) [address] [facility]; Protocol Last Admin: 10/26/22 08:29 Dose: 1 appl Documented By: IKE Docusate Sodium (Docusate Sodium 100 Mg Capsule) 100 mg PO DAILY PRN PRN Reason: Constipation Doxazosin Mesylate (Doxazosin Mesylate 2 Mg Tablet) [address] [facility] Last Admin: 10/25/22 22:46 Dose: 4 mg Documented By: CAITY Ferrous Sulfate (Ferrous Sulfate 324 Mg Tablet.Dr) [address] [facility] Last Admin: 10/26/22 08:28 Dose: 324 mg Documented By: IKE Fidaxomicin (Fidaxomicin 200 Mg Tablet) [address] [facility] Stop: 11/02/22 20:59 Last Admin: 10/26/22 08:29 Dose: 200 mg Documented By: IKE Glucose (Glucose Gel 15 Gm Gel..Gram.) 15 gm PO Q15M PRN; Protocol PRN Reason: per Hypoglycemia Standing Ord. Last Admin: 10/23/22 08:03 Dose: 15 gm Documented By: BRADLY Dextrose (D10) 250 mls @ 750 mls/hr IV Q15M PRN; Protocol PRN Reason: per Hypoglycemia Standing Ord. Insulin Human Lispro (Insulin Lispro 100 Unit/Ml 3 Ml Vial) [address] [facility]; Protocol Last Admin: 10/26/22 07:56 Dose: Not Given Documented By: IKE Non-Admin Reason: No Insulin Coverage Isosorbide Mononitrate (Isosorbide Mononitrate 30 Mg Tab.Er.24h) [address] [facility]; Protocol Last Admin: 10/14/22 09:29 Dose: 30 mg Documented By: HALIE Lactic Acid (Ammonium Lactate 12 % Cream 140 Gm Tube) 1 appl TOPICAL BID PRN; Protocol PRN Reason: Dry Skin Last Admin: 10/26/22 08:37 Dose: 1 appl Documented By: IKE Lactulose (Lactulose 20 Gm/30 Ml Solution) [address] [facility] Last Admin: 10/26/22 07:24 Dose: Not Given Documented By: IKE Non-Admin Reason: diarrhea Metoprolol Tartrate (Metoprolol Tartrate 12.5 Mg Halftab) 12.[address] [facility]; Protocol Last Admin: 10/26/22 08:28 Dose: 12.5 mg Documented By: IKE Nystatin (Nystatin Powder 15 Gm Bottle) [address] [facility]; Protocol Last Admin: 10/26/22 08:29 Dose: 1 appl Documented By: IKE Ondansetron HCl (Ondansetron Hcl 4 Mg/2 Ml Vial) 4 mg IVPUSH Q8H PRN PRN Reason: Nausea and Vomiting Pharmacy Consult (Consult Rx Perform Med Rec) 1 each MISCELLANE ONCE PRN PRN Reason: Consult order Polyethylene Glycol (Polyethylene Glycol 3350 17 Gm Powd.Pack) 17 gm PO DAILY PRN PRN Reason: Constipation Pravastatin Sodium (Pravastatin Sodium 20 Mg Tablet) [address] [facility] Last Admin: 10/25/22 22:46 Dose: 20 mg Documented By: CAITY Rifaximin (Rifaximin 550 Mg Tablet) [address] [facility] Last Admin: 10/26/22 08:28 Dose: 550 mg Documented By: IKE Salmeterol Xinafoate (Salmeterol Xinafoate 50 Mcg Blst.W.Dev) [address] [facility] Last Admin: 10/26/22 07:45 Dose: 1 puff Documented By: AL Sodium Bicarbonate (Sodium Bicarbonate 650 Mg Tablet) 650 mg PO QID PRN PRN Reason: Gastric Reflux Sodium Chloride (0.9 % Sodium Chloride Flush 3 Ml Syringe) [address] [facility] Last Admin: 10/26/22 08:28 Dose: 3 ml Documented By: IKE Tiotropium Sc[place] (Tiotropium [place] 18 Mcg Cap.W.Dev) [address] [facility] Last Admin: 10/26/22 07:45 Dose: 1 puff Documented By: AL Tramadol HCl (Tramadol Hcl 50 Mg Tablet) 50 mg PO Q6H PRN PRN Reason: Pain, Moderate(Pain Scale 4-6) Last Admin: 10/23/22 02:48 Dose: 50 mg Documented By: SHIRLEY Vancomycin HCl (Vancomycin Hcl Oral Solution 125 Mg/5 Ml Soln.Recon) [address] [facility] Stop: 11/01/22 19:59 Last Admin: 10/26/22 08:29 Dose: 125 mg Documented By: IKE Labs 10/24/22 05:59 10/26/22 07:37 Labs: Laboratory Results - last 24 hr 10/25/22 10/25/22 10/25/22 12:44 15:50 18:56 Anion Gap Estim Creat Clear Calc Estimated GFR POC Glucose 99 149 H 133 H Random Glucose Calcium 10/26/22 10/26/22 07:37 07:41 Anion Gap 16 Estim Creat Clear Calc 34.4 Estimated GFR 22 POC Glucose 92 Random Glucose 92 Calcium 8.6 Microbiology Microbiology Results: Microbiology 10/22/22 14:21 Gram Stain - Final Ascites Fluid Anaerobic Culture - Preliminary No growth to date. Body Fluid Culture - Final No growth after 2 days Assessment and Plan (1) Clostridioides difficile diarrhea: Status: Acute (2) Acute on chronic diastolic CHF (congestive heart failure), NYHA class 3: Status: Acute (3) Paroxysmal A-fib: Status: Acute (4) Decompensated heart failure: Status: Acute Plan 67 year old with CKD4, DM2, COPD, HTN, HLD, ZEYAD, AF on apixaban presenting with exertional dyspnea x 1 wk, admitted for CHF exacerbation hospitalization complicated by hepatic encephalopathy, CARY, and Cdiff infection. Cdiff infection continue po vanco seen by ID, rec to add deficid; total 10 days for both vtach. Resolved had 13 beat episode 10/24 s/p empiric magnesium k 40 q4h x2 resume low dose BB, up titrate prn echo from september with preserved EF tele monitoring cirrhosis with ascites diagnostic tap, ascites most likely from heart failure GI following CARY/CKD4 concern for cardiorenal and hepatorenal syndrome, received HD 10/22 and this am. Permacath placed 10/17/22 nephrology following HD T<TH<SAT acute HFpEF last TTE 09/25/22 with LVEF 55%, mod diastolic dysfunction, pulmonary HTN negative 22L thus far d/c diuretics [torsemide, acetazolamide, metolazone] as started dialysis [10/22] acute toxic metabolic encephalopathy multifactorial due to renal failure, cdif, new HD, and hepatic encephalopathy likely uremia playing significant role - now on HD started on lactulose/rifaximin for hepatic encephalopathy hypokalemia replaced follow levels closely paroxysmal AF s/p PPM placement 09/27 continue AC with apixaban DM2 ss, ada diet HTN metoprolol acute/chronic anemia s/p 2u pRBCs 10/14/22 likely due to CKD + cirrhosis H+H stable continue Fe supplementation thrombocytopenia chronic COPD not in acute exacerbation prn albuterol, controller inhalers [salmeterol, tiotropium] morbid obesity BMI 40.9 weight management VTE ppx: apixaban attending - dr. Wagoner dispo: will need STR eventually + HD placement In my clinical judgment, the patient requires continued inpatient hospitalization for the following reasons: dialysis initiation, AMS, electrolyte monitoring, telemetry monitoring Time Spent With Patient Time: Total time managing care of this patient today ____ minutes. Quality Stroke Does the patient have a stroke diagnosis?: No VTE Prior VTE?: No VTE Risk Level:: Medical - moderate - high VTE Device Contraindication: Treatment Not Indicated VTE Drug Contraindication: N/A - Med Ordered
[2022-10-26 11:51] LABS: Glucose, Whole Blood 105 mg/dL (60-115)
--- NOTE | 2022-10-26 13:47 | PM.PNNEP ---
Subjective Subjective Date of Service: 10/27/22 Principal diagnosis: Decompensated heart failure Interval history: Events noted. Significant improvement in edema. Physical Exam Vital Signs: Vital Signs: Last Vital Signs Temp 97.2 F 10/26/22 11:49 Pulse 75 10/26/22 11:49 Resp 20 10/26/22 11:49 BP 126/65 10/26/22 11:49 Pulse Ox 97 10/26/22 11:49 O2 Del Method Room Air 10/26/22 11:49 BMI result Body Mass Index 40.8 Const: General: cooperative, no acute distress, alert, awake and in distress mild and respiratory Nutritional Appearance: well nourished and obese Orientation/consciousness: patient oriented x3 HEENT: Head: Yes normocephalic and Yes atraumatic Throat: Yes posterior oropharynx normal Eyes: Eyelids: Yes eyelids normal Conjunctivae: conjunctivae normal Sclerae: sclerae normal Corneas: corneas normal Pupils: Equal, round and reactive pupils present EOM: EOMs intact bilaterally Neck: Neck: Yes full ROM, Yes trachea midline, Yes supple and Yes JVD Resp: Other: Diminished without adventitious breath sounds Effort & Inspection: normal respiratory effort, able to speak in complete sentences, no audible wheezes and not labored Auscultation: clear to auscultation bilaterally, no crackles, no rales, no rhonchi, no wheezes and diminished lung sounds Cardio: Jugular venous distension: JVD Rate: regular rate Rhythm: regular rhythm Heart sounds: S1 normal heart sound present, S2 normal heart sound present, no click, no gallops, no murmurs and no rubs GI: Inspection: Yes Abdominal wall edema and Yes distended Palpation (GI): Soft to palpation, nontender and no guarding Auscultation: normal bowel sounds and normoactive bowel sounds Skin: Other: Superficial approximately 3 cm wound to the right lower leg. No surrounding erythema or drainage from the wound General skin exam: no rashes or lesions noted and elasticity normal Neuro: General: patient oriented x3 Cranial nerves: Yes CN's II-XII intact bilaterally, Yes Equal, round and reactive pupils present and Yes Bilaterally intact EOM present Cognition (Neuro): normal cognition Extrem: Other: Moving all extremities well without any obvious deformities General: No clubbing, No cyanosis and Yes edema Objective Data Labs 10/24/22 05:59 10/26/22 07:37 Labs: Laboratory Results - last 24 hr 10/25/22 10/25/22 10/26/22 15:50 18:56 07:37 Sodium 139 Potassium 3.5 Chloride 104 Carbon Dioxide 23 Anion Gap 16 BUN 48 H Creatinine 2.82 H Estim Creat Clear Calc 34.4 Estimated GFR 22 POC Glucose 149 H 133 H Random Glucose 92 Calcium 8.6 10/26/22 10/26/22 07:41 11:44 Sodium Potassium Chloride Carbon Dioxide Anion Gap BUN Creatinine Estim Creat Clear Calc Estimated GFR POC Glucose 92 105 Random Glucose Calcium Microbiology Microbiology Results: Microbiology 10/22/22 14:21 Ascites Fluid Gram Stain - Final 10/22/22 14:21 Ascites Fluid Anaerobic Culture - Preliminary No growth to date. 10/22/22 14:21 Ascites Fluid Body Fluid Culture - Final No growth after 2 days 10/22/22 08:55 Blood - Venous Blood Culture - Preliminary No growth after 48 hours. 10/22/22 08:55 Blood - Venous Blood Culture - Preliminary No growth after 48 hours. 10/14/22 Unknown Urine clean catch - Urine keys top Urine Culture - Final Procedures Date of Service Date of Service: 10/27/22 Assessment & Plan Assessment and plan (1) Acute on chronic diastolic CHF (congestive heart failure), NYHA class 3: Status: Acute (2) CKD (chronic kidney disease) stage 4, GFR 15-29 ml/min: Status: Acute Plan He is tolerating dialysis and fluid removal. He is currently on dialysis primarily for fluid management. Clinically is not uremic. We will continue with hemodialysis and remove fluid as tolerated. It is possible that he may require dialysis 2 times a week rather than 3 times. Further clinical course will determine this. Hypokalemia due to GI losses. We will use K 3.0 bath during dialysis. Anemia. Due to the combination of iron deficiency and erythropoietin deficiency. On Epogen Epogen. Time Spent With Patient Time: Total time managing care of this patient today ____ minutes. Progress Note: Quality Stroke Does the patient have a stroke diagnosis?: No
[2022-10-26 16:04] LABS: Glucose, Whole Blood 103 mg/dL (60-115)
[2022-10-26 19:37] LABS: Glucose, Whole Blood 98 mg/dL (60-115)
[2022-10-26] MEDS: Pravastatin Sodium 20 MG TABLET PO (19:44)
[2022-10-26] MEDS: Doxazosin Mesylate 2 MG TABLET 4 MG PO (19:45)
[2022-10-27] VITALS (8 sets, daily range): BP systolic 115–142; BP diastolic 58–70; PULSE 75–93; RESP 14–20; TEMP 36.2–37.1; O2SAT 96–98; BMI 30.5
[2022-10-27] MEDS: vancomycin HCL Oral Solution 125 MG/5 ML SOLN.RECON PO ×4 (01:34→20:41)
[2022-10-27 05:56] LABS: MANUAL DIFF FLAG NO
[2022-10-27 06:02] LABS: Basophils Percent Auto 0.5 % (0-2); Hematocrit 28.4 % (42.0-52.0); Hemoglobin 9.1 g/dl (14.0-18.0); Imm Gran Abs Auto 0.03 X10*3/uL (0.00-0.03); Imm Gran Pct Auto 0.5 % (0.0-0.4); Lymphocytes Absolute Auto 0.5 X10*3/uL (1.2-4.9); Lymphocytes Percent Auto 8.7 % (20-40); Mean Corpuscular Hemoglobin 31.6 pg (27.0-33.0); Mean Corpuscular Volume 98.6 fL (80.0-98.0); Mean Platelet Volume 10.2 fL (9.4-12.4); Monocytes Absolute Auto 0.4 X10*3/uL (0.1-1.2); Monocytes Percent Auto 6.6 % (2-11); Neutrophils Absolute Auto 4.8 x10*3/uL (2.0-8.3); Neutrophils Percent Auto 83.7 % (45-73); Platelet Count 103 X10*3/uL (160-400); Red Blood Count 2.88 X10*6/uL (4.60-5.80); Red Cell Distribution Width 14.6 % (11.0-16.0); White Blood Count 5.7 X10*3/uL (4.8-10.8)
[2022-10-27 06:26] LABS: Anion Gap 17 (12-20); Blood Urea Nitrogen 56 mg/dL (9-16); Calcium 8.6 mg/dL (8.4-10.2); Carbon Dioxide 22 mmol/L (22-29); Chloride 104 mmol/L (96-108); Creatinine Clr Calc Pharmacy 33.4; Estimated Glomerular Filt Rate 22; Glucose Random 76 mg/dL (60-115); Potassium 3.5 mmol/L (3.3-5.1); Sodium 139 mmol/L (135-145)
[2022-10-27 06:32] LABS: B Type Natriuretic Peptide 2285 pg/mL (<100)
[2022-10-27 07:47] LABS: Glucose, Whole Blood 80 mg/dL (60-115)
[2022-10-27] MEDS: Salmeterol Xinafoate 50 MCG BLST.W.DEV 1 PUFF INHALE ×2 (08:16→20:16)
[2022-10-27] MEDS: Metoprolol Tartrate 12.5 MG HALFTAB PO ×2 (08:56→20:42)
[2022-10-27] MEDS: Apixaban 2.5 MG TABLET PO ×2 (08:56→20:42)
[2022-10-27] MEDS: Ferrous Sulfate 324 MG TABLET.DR PO (08:57)
[2022-10-27] MEDS: Clotrimazole 1 % Cream 15 GM TUBE 1 APPL TOPICAL ×2 (08:57→20:43)
[2022-10-27] MEDS: Nystatin Powder 15 GM BOTTLE 1 APPL TOPICAL ×2 (08:57→20:43)
[2022-10-27] MEDS: calcitrioL 0.25 MCG CAPSULE 0.5 MCG PO (08:57)
[2022-10-27] MEDS: 0.9 % Sodium Chloride Flush 3 ML SYRINGE IVFLUSH ×2 (08:57→20:43)
[2022-10-27] MEDS: rifAXIMin 550 MG TABLET PO ×2 (08:57→20:42)
[2022-10-27] MEDS: Fidaxomicin 200 MG TABLET PO ×2 (08:57→20:42)
--- NOTE | 2022-10-27 09:56 | HO.PM.IMPN ---
Subjective Subjective Date of Service: 10/27/22 Interval History: seen and examined this morning follow up for renal failure, chf doing better today Review of Systems Review of Systems: Yes all other systems are reviewed and are negative Constitutional Constitutional: Denies chills and Denies fever(s) Cardiovascular Cardiovascular: Denies chest pain, Denies palpitations and Denies dyspnea Respiratory Respiratory: Denies dyspnea Gastrointestinal Gastrointestinal: Denies abdominal pain Endocrine Endocrine: Denies palpitations Physical Exam Vital Signs: Vital Signs: Last Vital Signs Temp 98.7 F 10/27/22 08:00 Pulse 80 10/27/22 08:17 Resp 16 10/27/22 08:17 BP 115/58 L 10/27/22 08:00 Pulse Ox 96 10/27/22 08:00 O2 Del Method Room Air 10/27/22 08:00 BMI result Body Mass Index 30.5 Appearing in no acute distress lung sounds are clear to auscultation heart regular rate rhythm, clear S1, S2 positive bowel sounds, abdomen is soft, nontender neuro patient is alert x3, no focal deficits Chronic stasis dermatitis to LE Objective Data Active Medications Acetaminophen (Acetaminophen 325 Mg Tablet) 650 mg PO Q6H PRN PRN Reason: Pain, Mild (Pain Scale 1-3) Last Admin: 10/22/22 05:19 Dose: 650 mg Documented By: SHIRLEY Albuterol Sulfate (Albuterol Sulfate 90 Mcg 8 Gm Inhaler) 2 puff INHALE Q4H PRN PRN Reason: Shortness Of Breath Or Wheezing Albuterol/Ipratropium (Albuterol/Iprat 2.5/0.5mg 3 Ml Ampul.Neb) 3 ml INHALE RQ6H WHILE AWAKE PRN PRN Reason: Shortness of Breath/Wheezing Apixaban (Apixaban 2.5 Mg Tablet) 2.5 mg PO BID [facility] Last Admin: 10/27/22 08:56 Dose: 2.5 mg Documented By: BRADLY Calcitriol (Calcitriol 0.25 Mcg Capsule) 0.5 mcg PO DAILY [facility] Last Admin: 10/27/22 08:57 Dose: 0.5 mcg Documented By: BRADLY Clotrimazole (Clotrimazole 1 % Cream 15 Gm Tube) 1 appl TOPICAL BID [facility]; Protocol Last Admin: 10/27/22 08:57 Dose: 1 appl Documented By: BRADLY Docusate Sodium (Docusate Sodium 100 Mg Capsule) 100 mg PO DAILY PRN PRN Reason: Constipation Doxazosin Mesylate (Doxazosin Mesylate 2 Mg Tablet) 4 mg PO BEDTIME [facility] Last Admin: 10/26/22 19:45 Dose: 4 mg Documented By: JUAN JOSÉ Ferrous Sulfate (Ferrous Sulfate 324 Mg Tablet.Dr) 324 mg PO DAILY [facility] Last Admin: 10/27/22 08:57 Dose: 324 mg Documented By: BRADLY Fidaxomicin (Fidaxomicin 200 Mg Tablet) 200 mg PO BID [facility] Stop: 11/02/22 20:59 Last Admin: 10/27/22 08:57 Dose: 200 mg Documented By: BRADLY Glucose (Glucose Gel 15 Gm Gel..Gram.) 15 gm PO Q15M PRN; Protocol PRN Reason: per Hypoglycemia Standing Ord. Last Admin: 10/23/22 08:03 Dose: 15 gm Documented By: BRADLY Dextrose (D10) 250 mls @ 750 mls/hr IV Q15M PRN; Protocol PRN Reason: per Hypoglycemia Standing Ord. Insulin Human Lispro (Insulin Lispro 100 Unit/Ml 3 Ml Vial) 0 unit SUBCUT QIDACHS [facility]; Protocol Last Admin: 10/27/22 07:50 Dose: Not Given Documented By: BRADLY Non-Admin Reason: No Insulin Coverage Isosorbide Mononitrate (Isosorbide Mononitrate 30 Mg Tab.Er.24h) 30 mg PO DAILY [facility]; Protocol Last Admin: 10/14/22 09:29 Dose: 30 mg Documented By: HALIE Lactic Acid (Ammonium Lactate 12 % Cream 140 Gm Tube) 1 appl TOPICAL BID PRN; Protocol PRN Reason: Dry Skin Last Admin: 10/26/22 08:37 Dose: 1 appl Documented By: IKE Lactulose (Lactulose 20 Gm/30 Ml Solution) 30 gm PO TID [facility] Last Admin: 10/27/22 08:54 Dose: Not Given Documented By: BRADLY Non-Admin Reason: diarrhea Metoprolol Tartrate (Metoprolol Tartrate 12.5 Mg Halftab) 12.5 mg PO BID [facility]; Protocol Last Admin: 10/27/22 08:56 Dose: 12.5 mg Documented By: BRADLY Nystatin (Nystatin Powder 15 Gm Bottle) 1 appl TOPICAL BID [facility]; Protocol Last Admin: 10/27/22 08:57 Dose: 1 appl Documented By: BRADLY Ondansetron HCl (Ondansetron Hcl 4 Mg/2 Ml Vial) 4 mg IVPUSH Q8H PRN PRN Reason: Nausea and Vomiting Pharmacy Consult (Consult Rx Perform Med Rec) 1 each MISCELLANE ONCE PRN PRN Reason: Consult order Polyethylene Glycol (Polyethylene Glycol 3350 17 Gm Powd.Pack) 17 gm PO DAILY PRN PRN Reason: Constipation Pravastatin Sodium (Pravastatin Sodium 20 Mg Tablet) 20 mg PO BEDTIME [facility] Last Admin: 10/26/22 19:44 Dose: 20 mg Documented By: JUAN JOSÉ Rifaximin (Rifaximin 550 Mg Tablet) 550 mg PO BID [facility] Last Admin: 10/27/22 08:57 Dose: 550 mg Documented By: BRADLY Salmeterol Xinafoate (Salmeterol Xinafoate 50 Mcg Blst.W.Dev) 1 puff INHALE RBID [facility] Last Admin: 10/27/22 08:16 Dose: 1 puff Documented By: PEDRO Sodium Bicarbonate (Sodium Bicarbonate 650 Mg Tablet) 650 mg PO QID PRN PRN Reason: Gastric Reflux Sodium Chloride (0.9 % Sodium Chloride Flush 3 Ml Syringe) 3 ml IVFLUSH QSHIFT [facility] Last Admin: 10/27/22 08:57 Dose: 3 ml Documented By: BRADLY Tiotropium [place] (Tiotropium [place] 18 Mcg Cap.W.Dev) 1 puff INHALE RDAILY [facility] Last Admin: 10/27/22 08:16 Dose: 1 puff Documented By: PEDRO Tramadol HCl (Tramadol Hcl 50 Mg Tablet) 50 mg PO Q6H PRN PRN Reason: Pain, Moderate(Pain Scale 4-6) Last Admin: 10/23/22 02:48 Dose: 50 mg Documented By: SHIRLEY Vancomycin HCl (Vancomycin Hcl Oral Solution 125 Mg/5 Ml Soln.Recon) 125 mg PO Q6H [facility] Stop: 11/01/22 19:59 Last Admin: 10/27/22 08:56 Dose: 125 mg Documented By: BRADLY Labs 10/27/22 05:11 10/27/22 05:11 Labs: Laboratory Results - last 24 hr 10/26/22 10/26/22 10/26/22 11:44 15:14 19:10 MCV MCH MCHC RDW Plt Count MPV Immature Gran % (Auto) Neut % (Auto) Lymph % (Auto) [place] % (Auto) Eos % (Auto) Baso % (Auto) Lymph # (Auto) [place] # (Auto) Eos # (Auto) Baso # (Auto) Abs Immat Gran (auto) Absolute Neuts (auto) Absolute Nucleated RBC Nucleated RBC % (auto) Anion Gap Estim Creat Clear Calc Estimated GFR POC Glucose 105 103 98 Random Glucose Calcium B-Natriuretic Peptide 10/27/22 10/27/22 10/27/22 05:11 05:11 05:11 MCV 98.6 H MCH 31.6 MCHC 32.0 RDW 14.6 Plt Count 103 L MPV 10.2 Immature Gran % (Auto) 0.5 H Neut % (Auto) 83.7 H Lymph % (Auto) 8.7 L [place] % (Auto) 6.6 Eos % (Auto) 0.0 Baso % (Auto) 0.5 Lymph # (Auto) 0.5 L [place] # (Auto) 0.4 Eos # (Auto) 0.0 Baso # (Auto) 0.0 Abs Immat Gran (auto) 0.03 Absolute Neuts (auto) 4.8 Absolute Nucleated RBC 0.000 Nucleated RBC % (auto) 0.0 Anion Gap 17 Estim Creat Clear Calc 33.4 Estimated GFR 22 POC Glucose Random Glucose 76 Calcium 8.6 B-Natriuretic Peptide 2285 H 10/27/22 07:35 MCV MCH MCHC RDW Plt Count MPV Immature Gran % (Auto) Neut % (Auto) Lymph % (Auto) [place] % (Auto) Eos % (Auto) Baso % (Auto) Lymph # (Auto) [place] # (Auto) Eos # (Auto) Baso # (Auto) Abs Immat Gran (auto) Absolute Neuts (auto) Absolute Nucleated RBC Nucleated RBC % (auto) Anion Gap Estim Creat Clear Calc Estimated GFR POC Glucose 80 Random Glucose Calcium B-Natriuretic Peptide Microbiology Microbiology Results: Microbiology 10/22/22 14:21 Gram Stain - Final Ascites Fluid Anaerobic Culture - Final NO GROWTH AFTER 5 DAYS Body Fluid Culture - Final No growth after 2 days Assessment and Plan (1) Clostridioides difficile diarrhea: Status: Acute (2) Acute on chronic diastolic CHF (congestive heart failure), NYHA class 3: Status: Acute (3) Paroxysmal A-fib: Status: Acute (4) Decompensated heart failure: Status: Acute Plan 67 year old with CKD4, DM2, COPD, HTN, HLD, ZEYAD, AF on apixaban presenting with exertional dyspnea x 1 wk, admitted for CHF exacerbation hospitalization complicated by hepatic encephalopathy, CARY, and Cdiff infection. Cdiff infection continue po vanco seen by ID, rec to add deficid; total 10 days for both (11/02/22) vtach. Resolved had 13 beat episode 10/24 s/p empiric magnesium k 40 q4h x2 resume low dose BB, up titrate prn echo from september with preserved EF tele monitoring cirrhosis with ascites diagnostic tap, ascites most likely from heart failure GI following CARY/CKD4 concern for cardiorenal and hepatorenal syndrome Permacath placed 10/17/22 nephrology following HD T<TH<SAT acute HFpEF last TTE 09/25/22 with LVEF 55%, mod diastolic dysfunction, pulmonary HTN negative 22L thus far d/c diuretics [torsemide, acetazolamide, metolazone] as started dialysis [10/22] acute toxic metabolic encephalopathy multifactorial due to renal failure, cdif, new HD, and hepatic encephalopathy likely uremia playing significant role - now on HD started on lactulose/rifaximin for hepatic encephalopathy hypokalemia replaced follow levels closely paroxysmal AF s/p PPM placement 09/27 continue AC with apixaban DM2 ss, ada diet HTN metoprolol acute/chronic anemia s/p 2u pRBCs 10/14/22 likely due to CKD + cirrhosis H+H stable continue Fe supplementation thrombocytopenia chronic COPD not in acute exacerbation prn albuterol, controller inhalers [salmeterol, tiotropium] morbid obesity BMI 40.9 weight management VTE ppx: apixaban attending - dr. Wagoner dispo: will need STR eventually + HD placement In my clinical judgment, the patient requires continued inpatient hospitalization for the following reasons: dialysis initiation, AMS, electrolyte monitoring, telemetry monitoring Time Spent With Patient Time: Total time managing care of this patient today ____ minutes. Quality Stroke Does the patient have a stroke diagnosis?: No VTE Prior VTE?: No VTE Risk Level:: Medical - moderate - high VTE Device Contraindication: Treatment Not Indicated VTE Drug Contraindication: N/A - Med Ordered
--- NOTE | 2022-10-27 10:29 | MHC.CM.PN ---
Per ROUNDS discussion, Patient will get a PT eval to assist with disposition; CM will follow.
--- NOTE | 2022-10-27 10:43 | MHC.SL.SWA ---
Speech Pathologist Impression: Mild oropharyngeal dysphagia Risk of Aspiration Due to: Medically Fragile Dysphasia Diet Status: UPGRADE from NDD2/HTL to NDD3/NTL Liquid Consistency and Strategies for Safe Swallow: Liquid Intake Recommendation: [place] Thick Liquid Intake Strategies: Small Sips No Straws Solid Food Consistency: Dietary Recommendations: Chopped/Advanced (NDD3) Additional Modifications to Solid Foods: Recommend UPGRADE to CHOPPED/ADVANCED (NDD3) solids and [place] THICK liquids (avoid straws). Patient will require supervision at all meals with close monitor for signs of aspiration. Discontinue if patient evidences coughing, wet voice, throat clearing or increasing upper respiratory congestion. Do not attempt if patient is fatigued. Avoid all mixed consistencies. , KARON notified of change by secure text, discussed with RN in person. Updated whiteboard in pt's room w/ this recommendation. CASING COOKER will continue to follow for toleration of diet, re-assessment of swallow as needed. CASING COOKER made diet adjustment in orders. Oral Medication Intake: Whole with Puree Please contact the pharmacy regarding appropriate crushable or liquid drug formulations that are available whenever modified delivery is recommended. Compensatory Strategies and Precautions to be Taken for Safe Swallow: Sitting Upright (90 deg) Double Swallow No Straw Small Bites and Sips Rate of Ingestion Change Avoid Specific Foods Supervision While Eating and Drinking for Safe Swallow: Total Supervision (1:1) Foods to Avoid: Mixed consistencies (soups, cereals), difficult to chew solids. Swallowing Recommended Treatments: Compens. Strategy Educat. Recommendation for Speech: Inpatient Speech Therapy Frequency/Duration: M-F while inpatient Date Range for Service Req: Timeline to reassess: [employer] Clinican/Clinical Fellow: No Supervisory Statement: I have reviewed and agree with the student/clinical fellow's documentation: N/A Speech Language Pathologist: Judy Sandoval M.A., CCC-CASING COOKER
[2022-10-27 11:39] LABS: Glucose, Whole Blood 98 mg/dL (60-115)
--- NOTE | 2022-10-27 11:51 | P.PNNP_ITS ---
Subjective Subjective Date of Service: 10/30/22 Principal diagnosis: Decompensated heart failure Interval history: seen and examined this morning follow up for renal failure, chf doing better today Physical Exam Vital Signs: Vital Signs: Last Vital Signs Temp 98.5 F 10/27/22 11:38 Pulse 75 10/27/22 11:38 Resp 20 10/27/22 11:38 BP 121/63 10/27/22 11:38 Pulse Ox 96 10/27/22 11:38 O2 Del Method Room Air 10/27/22 11:38 BMI result Body Mass Index 30.5 Const: General: cooperative, alert, awake and in distress mild and respiratory HEENT: Head: Yes normocephalic and Yes atraumatic Throat: Yes posterior oropharynx normal Eyes: Eyelids: Yes eyelids normal Conjunctivae: conjunctivae normal Sclerae: sclerae normal Corneas: corneas normal EOM: EOMs intact bilaterally Neck: Neck: Yes full ROM, Yes trachea midline, Yes supple and Yes JVD Resp: Effort & Inspection: normal respiratory effort, able to speak in complete sentences, no audible wheezes and not labored Auscultation: clear to auscultation bilaterally, no crackles, no rales, no rhonchi, no wheezes and diminished lung sounds Cardio: Jugular venous distension: JVD Rate: regular rate Rhythm: regular rhythm Heart sounds: S1 normal heart sound present, S2 normal heart sound present, no click, no gallops, no murmurs and no rubs GI: Inspection: Yes Abdominal wall edema and Yes distended Palpation (GI): Soft to palpation, nontender and no guarding Auscultation: normal bowel sounds and normoactive bowel sounds Skin: Other: Superficial approximately 3 cm wound to the right lower leg. No surrounding erythema or drainage from the wound General skin exam: no rashes or lesions noted and elasticity normal Neuro: Cognition (Neuro): normal cognition Extrem: General: No clubbing, No cyanosis and Yes edema Objective Data Labs 10/27/22 05:11 10/27/22 05:11 Labs: Laboratory Results - last 24 hr 10/26/22 10/26/22 10/26/22 11:44 15:14 19:10 WBC RBC Hgb Hct MCV MCH MCHC RDW Plt Count MPV Immature Gran % (Auto) Neut % (Auto) Lymph % (Auto) [place] % (Auto) Eos % (Auto) Baso % (Auto) Lymph # (Auto) [place] # (Auto) Eos # (Auto) Baso # (Auto) Abs Immat Gran (auto) Absolute Neuts (auto) Absolute Nucleated RBC Nucleated RBC % (auto) Sodium Potassium Chloride Carbon Dioxide Anion Gap BUN Creatinine Estim Creat Clear Calc Estimated GFR POC Glucose 105 103 98 Random Glucose Calcium B-Natriuretic Peptide 10/27/22 10/27/22 10/27/22 05:11 05:11 05:11 WBC 5.7 RBC 2.88 L Hgb 9.1 L Hct 28.4 L MCV 98.6 H MCH 31.6 MCHC 32.0 RDW 14.6 Plt Count 103 L MPV 10.2 Immature Gran % (Auto) 0.5 H Neut % (Auto) 83.7 H Lymph % (Auto) 8.7 L [place] % (Auto) 6.6 Eos % (Auto) 0.0 Baso % (Auto) 0.5 Lymph # (Auto) 0.5 L [place] # (Auto) 0.4 Eos # (Auto) 0.0 Baso # (Auto) 0.0 Abs Immat Gran (auto) 0.03 Absolute Neuts (auto) 4.8 Absolute Nucleated RBC 0.000 Nucleated RBC % (auto) 0.0 Sodium 139 Potassium 3.5 Chloride 104 Carbon Dioxide 22 Anion Gap 17 BUN 56 H Creatinine 2.90 H Estim Creat Clear Calc 33.4 Estimated GFR 22 POC Glucose Random Glucose 76 Calcium 8.6 B-Natriuretic Peptide 2285 H 10/27/22 10/27/22 07:35 11:14 WBC RBC Hgb Hct MCV MCH MCHC RDW Plt Count MPV Immature Gran % (Auto) Neut % (Auto) Lymph % (Auto) [place] % (Auto) Eos % (Auto) Baso % (Auto) Lymph # (Auto) [place] # (Auto) Eos # (Auto) Baso # (Auto) Abs Immat Gran (auto) Absolute Neuts (auto) Absolute Nucleated RBC Nucleated RBC % (auto) Sodium Potassium Chloride Carbon Dioxide Anion Gap BUN Creatinine Estim Creat Clear Calc Estimated GFR POC Glucose 80 98 Random Glucose Calcium B-Natriuretic Peptide Microbiology Microbiology Results: Microbiology 10/22/22 08:55 Blood - Venous Blood Culture - Final No growth after 5 days. 10/22/22 08:55 Blood - Venous Blood Culture - Final No growth after 5 days. 10/22/22 14:21 Ascites Fluid Gram Stain - Final 10/22/22 14:21 Ascites Fluid Anaerobic Culture - Final NO GROWTH AFTER 5 DAYS 10/22/22 14:21 Ascites Fluid Body Fluid Culture - Final No growth after 2 days 10/14/22 Unknown Urine clean catch - Urine keys top Urine Culture - Final Procedures Date of Service Date of Service: 10/30/22 Assessment & Plan Assessment and plan (1) Acute on chronic diastolic CHF (congestive heart failure), NYHA class 3: Status: Acute (2) CKD (chronic kidney disease) stage 4, GFR 15-29 ml/min: Status: Acute Plan Advanced CKD approaching ESRD. He is tolerating dialysis and fluid removal. He is currently on dialysis primarily for fluid management. Clinically is not uremic. We will continue with hemodialysis and remove fluid as tolerated. It is possible that he may require dialysis 2 times a week rather than 3 times. Fur ther clinical course will determine this. Hypokalemia due to GI losses. Potassium is normalized Anemia. Due to the combination of iron deficiency and erythropoietin deficiency. On Epogen Epogen. He will require rehab. I will arrange for hemodialysis at [facility] since his is also getting dialyzed there. Time Spent With Patient Time: Total time managing care of this patient today ____ minutes. Progress Note: Quality Stroke Does the patient have a stroke diagnosis?: No
[2022-10-27 16:47] LABS: Glucose, Whole Blood 92 mg/dL (60-115)
[2022-10-27 20:40] LABS: Glucose, Whole Blood 108 mg/dL (60-115)
[2022-10-27] MEDS: Doxazosin Mesylate 2 MG TABLET 4 MG PO (20:42)
[2022-10-27] MEDS: Pravastatin Sodium 20 MG TABLET PO (20:42)
[2022-10-28] VITALS (9 sets, daily range): BP systolic 122–137; BP diastolic 59–68; PULSE 70–81; RESP 16–20; TEMP 36.4–36.8; O2SAT 95–99
[2022-10-28] MEDS: vancomycin HCL Oral Solution 125 MG/5 ML SOLN.RECON PO ×4 (01:57→20:24)
[2022-10-28 07:26] LABS: Glucose, Whole Blood 78 mg/dL (60-115)
[2022-10-28] MEDS: Salmeterol Xinafoate 50 MCG BLST.W.DEV 1 PUFF INHALE ×2 (08:06→19:22)
[2022-10-28] MEDS: 0.9 % Sodium Chloride Flush 3 ML SYRINGE IVFLUSH ×2 (08:20→20:26)
[2022-10-28] MEDS: rifAXIMin 550 MG TABLET PO ×2 (08:20→20:22)
[2022-10-28] MEDS: calcitrioL 0.25 MCG CAPSULE 0.5 MCG PO (08:20)
[2022-10-28] MEDS: Ferrous Sulfate 324 MG TABLET.DR PO (08:20)
[2022-10-28] MEDS: Metoprolol Tartrate 12.5 MG HALFTAB PO ×2 (08:20→20:25)
[2022-10-28] MEDS: Apixaban 2.5 MG TABLET PO ×2 (08:20→20:25)
[2022-10-28] MEDS: Fidaxomicin 200 MG TABLET PO ×2 (08:20→20:25)
[2022-10-28] MEDS: Clotrimazole 1 % Cream 15 GM TUBE 1 APPL TOPICAL (08:21)
[2022-10-28] MEDS: Nystatin Powder 15 GM BOTTLE 1 APPL TOPICAL ×2 (08:21→20:26)
[2022-10-28 08:31] LABS: Anion Gap 17 (12-20); Blood Urea Nitrogen 69 mg/dL (9-16); Calcium 9.4 mg/dL (8.4-10.2); Carbon Dioxide 23 mmol/L (22-29); Chloride 104 mmol/L (96-108); Estimated Glomerular Filt Rate 21; Glucose Random 80 mg/dL (60-115); Potassium 3.5 mmol/L (3.3-5.1); Sodium 140 mmol/L (135-145)
--- NOTE | 2022-10-28 09:37 | W.PM.DNNEP ---
Subjective Subjective Principal diagnosis: Decompensated heart failure This patient was seen during dialysis. Interval history: Feels better Physical Exam Vital Signs: Vital Signs: Last Vital Signs Temp 98.1 F 10/28/22 07:08 Pulse 80 10/28/22 08:10 Resp 16 10/28/22 08:10 BP 126/65 10/28/22 07:08 Pulse Ox 95 10/28/22 07:08 O2 Del Method Room Air 10/28/22 07:08 BMI result Body Mass Index 30.5 Const: General: cooperative, no acute distress, alert, awake and in distress mild and respiratory Nutritional Appearance: well nourished and obese Orientation/consciousness: patient oriented x3 HEENT: Head: Yes normocephalic and Yes atraumatic Throat: Yes posterior oropharynx normal Eyes: Eyelids: Yes eyelids normal Conjunctivae: conjunctivae normal Sclerae: sclerae normal Corneas: corneas normal Pupils: Equal, round and reactive pupils present EOM: EOMs intact bilaterally Neck: Neck: Yes supple Resp: Effort & Inspection: normal respiratory effort, able to speak in complete sentences, no audible wheezes and not labored Auscultation: diminished lung sounds Cardio: Jugular venous distension: JVD Rate: regular rate Rhythm: regular rhythm Heart sounds: no click GI: Inspection: Yes Abdominal wall edema and Yes distended Palpation (GI): Soft to palpation, nontender and no guarding Auscultation: normal bowel sounds and normoactive bowel sounds Skin: General skin exam: no rashes or lesions noted and elasticity normal Neuro: General: patient oriented x3 Cranial nerves: Yes Equal, round and reactive pupils present Cognition (Neuro): normal cognition Extrem: General: No clubbing, No cyanosis and Yes edema Assessment & Plan Assessment and plan (1) Acute on chronic diastolic CHF (congestive heart failure), NYHA class 3: Status: Acute (2) CKD (chronic kidney disease) stage 4, GFR 15-29 ml/min: Status: Acute Plan Advanced CKD approaching ESRD. He is tolerating dialysis and fluid removal. He is currently on dialysis primarily for fluid management. Clinically is not uremic. We will continue with hemodialysis and remove fluid as tolerated. Hypokalemia due to GI losses. Potassium is normalized Anemia. Due to the combination of iron deficiency and erythropoietin deficiency. On Epogen Epogen. He will require rehab. hemodialysis at [facility] since his is also getting dialyzed there. Time Spent With Patient Time: Total time managing care of this patient today ____ minutes. Procedures Date of Service Date of Service: 10/30/22
--- NOTE | 2022-10-28 11:13 | P.PNIM_ITS ---
Subjective Subjective Date of Service: 10/28/22 Interval History: seen and examined this morning follow up for renal failure, chf doing better today Review of Systems Review of Systems: Yes all other systems are reviewed and are negative Constitutional Constitutional: Denies chills and Denies fever(s) Cardiovascular Cardiovascular: Denies chest pain, Denies palpitations and Denies dyspnea Respiratory Respiratory: Denies dyspnea Gastrointestinal Gastrointestinal: Denies abdominal pain Endocrine Endocrine: Denies palpitations Physical Exam Vital Signs: Vital Signs: Last Vital Signs Temp 98.1 F 10/28/22 07:08 Pulse 80 10/28/22 08:10 Resp 16 10/28/22 08:10 BP 126/65 10/28/22 07:08 Pulse Ox 95 10/28/22 07:08 O2 Del Method Room Air 10/28/22 07:08 BMI result Body Mass Index 30.5 Appearing in no acute distress lung sounds are clear to auscultation heart regular rate rhythm, clear S1, S2 positive bowel sounds, abdomen is soft, nontender neuro patient is alert x3, no focal deficits Objective Data Active Medications Acetaminophen (Acetaminophen 325 Mg Tablet) 650 mg PO Q6H PRN PRN Reason: Pain, Mild (Pain Scale 1-3) Last Admin: 10/22/22 05:19 Dose: 650 mg Documented By: SHIRLEY Albuterol Sulfate (Albuterol Sulfate 90 Mcg 8 Gm Inhaler) 2 puff INHALE Q4H PRN PRN Reason: Shortness Of Breath Or Wheezing Albuterol/Ipratropium (Albuterol/Iprat 2.5/0.5mg 3 Ml Ampul.Neb) 3 ml INHALE RQ6H WHILE AWAKE PRN PRN Reason: Shortness of Breath/Wheezing Apixaban (Apixaban 2.5 Mg Tablet) 2.5 mg PO BID [facility] Last Admin: 10/28/22 08:20 Dose: 2.5 mg Documented By: BRADLY Calcitriol (Calcitriol 0.25 Mcg Capsule) 0.5 mcg PO DAILY [facility] Last Admin: 10/28/22 08:20 Dose: 0.5 mcg Documented By: BRADLY Clotrimazole (Clotrimazole 1 % Cream 15 Gm Tube) 1 appl TOPICAL BID [facility]; Protocol Last Admin: 10/28/22 08:21 Dose: 1 appl Documented By: BRADLY Docusate Sodium (Docusate Sodium 100 Mg Capsule) 100 mg PO DAILY PRN PRN Reason: Constipation Doxazosin Mesylate (Doxazosin Mesylate 2 Mg Tablet) 4 mg PO BEDTIME [facility] Last Admin: 10/27/22 20:42 Dose: 4 mg Documented By: JUAN OJSÉ Ferrous Sulfate (Ferrous Sulfate 324 Mg Tablet.Dr) 324 mg PO DAILY [facility] Last Admin: 10/28/22 08:20 Dose: 324 mg Documented By: BRADLY Fidaxomicin (Fidaxomicin 200 Mg Tablet) 200 mg PO BID [facility] Stop: 11/02/22 20:59 Last Admin: 10/28/22 08:20 Dose: 200 mg Documented By: BRADLY Glucose (Glucose Gel 15 Gm Gel..Gram.) 15 gm PO Q15M PRN; Protocol PRN Reason: per Hypoglycemia Standing Ord. Last Admin: 10/23/22 08:03 Dose: 15 gm Documented By: BRADLY Dextrose (D10) 250 mls @ 750 mls/hr IV Q15M PRN; Protocol PRN Reason: per Hypoglycemia Standing Ord. Insulin Human Lispro (Insulin Lispro 100 Unit/Ml 3 Ml Vial) 0 unit SUBCUT QIDACHS [facility]; Protocol Last Admin: 10/28/22 07:29 Dose: Not Given Documented By: BRADLY Non-Admin Reason: No Insulin Coverage Isosorbide Mononitrate (Isosorbide Mononitrate 30 Mg Tab.Er.24h) 30 mg PO DAILY [facility]; Protocol Last Admin: 10/14/22 09:29 Dose: 30 mg Documented By: HALIE Lactic Acid (Ammonium Lactate 12 % Cream 140 Gm Tube) 1 appl TOPICAL BID PRN; Protocol PRN Reason: Dry Skin Last Admin: 10/26/22 08:37 Dose: 1 appl Documented By: IKE Lactulose (Lactulose 20 Gm/30 Ml Solution) 30 gm PO TID [facility] Last Admin: 10/28/22 08:21 Dose: Not Given Documented By: BRADLY Non-Admin Reason: DIARRHEA Metoprolol Tartrate (Metoprolol Tartrate 12.5 Mg Halftab) 12.5 mg PO BID [facility]; Protocol Last Admin: 10/28/22 08:20 Dose: 12.5 mg Documented By: BRADLY Nystatin (Nystatin Powder 15 Gm Bottle) 1 appl TOPICAL BID [facility]; Protocol Last Admin: 10/28/22 08:21 Dose: 1 appl Documented By: BRADLY Ondansetron HCl (Ondansetron Hcl 4 Mg/2 Ml Vial) 4 mg IVPUSH Q8H PRN PRN Reason: Nausea and Vomiting Pharmacy Consult (Consult Rx Perform Med Rec) 1 each MISCELLANE ONCE PRN PRN Reason: Consult order Polyethylene Glycol (Polyethylene Glycol 3350 17 Gm Powd.Pack) 17 gm PO DAILY PRN PRN Reason: Constipation Pravastatin Sodium (Pravastatin Sodium 20 Mg Tablet) 20 mg PO BEDTIME [facility] Last Admin: 10/27/22 20:42 Dose: 20 mg Documented By: JUAN JOSÉ Rifaximin (Rifaximin 550 Mg Tablet) 550 mg PO BID [facility] Last Admin: 10/28/22 08:20 Dose: 550 mg Documented By: BRADLY Salmeterol Xinafoate (Salmeterol Xinafoate 50 Mcg Blst.W.Dev) 1 puff INHALE RBID [facility] Last Admin: 10/28/22 08:06 Dose: 1 puff Documented By: MALI Sodium Bicarbonate (Sodium Bicarbonate 650 Mg Tablet) 650 mg PO QID PRN PRN Reason: Gastric Reflux Sodium Chloride (0.9 % Sodium Chloride Flush 3 Ml Syringe) 3 ml IVFLUSH QSHIFT [facility] Last Admin: 10/28/22 08:20 Dose: 3 ml Documented By: BRADLY Tiotropium [place] (Tiotropium [place] 18 Mcg Cap.W.Dev) 1 puff INHALE RDAILY [facility] Last Admin: 10/28/22 08:06 Dose: 1 puff Documented By: MALI Vancomycin HCl (Vancomycin Hcl Oral Solution 125 Mg/5 Ml Soln.Recon) 125 mg PO Q6H [facility] Stop: 11/01/22 19:59 Last Admin: 10/28/22 08:20 Dose: 125 mg Documented By: BRADLY Labs 10/27/22 05:11 10/28/22 08:09 Labs: Laboratory Results - last 24 hr 10/27/22 10/27/22 10/27/22 11:14 16:32 20:31 Anion Gap Estim Creat Clear Calc Estimated GFR POC Glucose 98 92 108 Random Glucose Calcium 10/28/22 10/28/22 07:09 08:09 Anion Gap 17 Estim Creat Clear Calc 28.0 Estimated GFR 21 POC Glucose 78 Random Glucose 80 Calcium 9.4 D Microbiology Microbiology Results: Microbiology 10/22/22 08:55 Blood Culture - Final Blood - Venous No growth after 5 days. 10/22/22 08:55 Blood Culture - Final Blood - Venous No growth after 5 days. 10/22/22 14:21 Gram Stain - Final Ascites Fluid Anaerobic Culture - Final NO GROWTH AFTER 5 DAYS Body Fluid Culture - Final No growth after 2 days Assessment and Plan (1) Clostridioides difficile diarrhea: Status: Acute (2) Acute on chronic diastolic CHF (congestive heart failure), NYHA class 3: Status: Acute (3) Paroxysmal A-fib: Status: Acute (4) Decompensated heart failure: Status: Acute Plan 67 year old with CKD4, DM2, COPD, HTN, HLD, ZEYAD, AF on apixaban presenting with exertional dyspnea x 1 wk, admitted for CHF exacerbation hospitalization complicated by hepatic encephalopathy, CARY, and Cdiff infection. Cdiff infection continue po vanco seen by ID, rec to add deficid; total 10 days for both (11/02/22) vtach. Resolved had 13 beat episode 10/24 s/p empiric magnesium k 40 q4h x2 resume low dose BB, up titrate prn echo from september with preserved EF tele monitoring cirrhosis with ascites diagnostic tap, ascites most likely from heart failure GI following CARY/CKD4 concern for cardiorenal and hepatorenal syndrome Permacath placed 10/17/22 nephrology following HD T<TH<SAT acute HFpEF last TTE 09/25/22 with LVEF 55%, mod diastolic dysfunction, pulmonary HTN negative 22L thus far d/c diuretics [torsemide, acetazolamide, metolazone] as started dialysis [10/22] acute toxic metabolic encephalopathy multifactorial due to renal failure, cdif, new HD, and hepatic encephalopathy likely uremia playing significant role - now on HD started on lactulose/rifaximin for hepatic encephalopathy hypokalemia replaced follow levels closely paroxysmal AF s/p PPM placement 09/27 continue AC with apixaban DM2 ss, ada diet HTN metoprolol acute/chronic anemia s/p 2u pRBCs 10/14/22 likely due to CKD + cirrhosis H+H stable continue Fe supplementation thrombocytopenia chronic COPD not in acute exacerbation prn albuterol, controller inhalers [salmeterol, tiotropium] Obesity BMI 30.5 weight management VTE ppx: apixaban attending - dr. Gutierrez bhagat: Plan for STR, o/p HD set up at [facility] In my clinical judgment, the patient requires continued inpatient hospitalization for the following reasons: dialysis, electrolyte monitoring, telemetry monitoring Time Spent With Patient Time: Total time managing care of this patient today ____ minutes. Quality Stroke Does the patient have a stroke diagnosis?: No VTE Prior VTE?: No VTE Risk Level:: Medical - moderate - high VTE Device Contraindication: Treatment Not Indicated VTE Drug Contraindication: N/A - Med Ordered
--- NOTE | 2022-10-28 11:30 | MHC.SPEECHCO ---
Pt in Dialysis this morning. Per RN, he has been tolerating his diet without complaints or concerns. 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
[2022-10-28 11:37] LABS: Glucose, Whole Blood 92 mg/dL (60-115)
--- NOTE | 2022-10-28 13:46 | MHC.CM.PN ---
PT recommendations given for pt to got to STR, referrals place via careport. Natty from [facility] called requesting pt information in order to start dialysis at their center. Requested information faxed to Natty. [facility] was contacted and rep [employer] confirmed that they would cover an OON benefit. [facility] unable to accept an [facility] pt, although they were informed that [facility] had approved it. We were hopeful that pt could have gone to [facility] as he was getting set up with [facility] dialysis associated with [facility], and pts also receives her dialysis at [facility]. Pts states she can drive pt to dialysis from home once he is done with STR. Will continue to try to find placement for STR.
[2022-10-28 16:12] LABS: Glucose, Whole Blood 97 mg/dL (60-115)
[2022-10-28] MEDS: Doxazosin Mesylate 2 MG TABLET 4 MG PO (20:24)
[2022-10-28] MEDS: Pravastatin Sodium 20 MG TABLET PO (20:25)
[2022-10-28] MEDS: Ammonium Lactate 12 % Cream 140 GM TUBE 1 APPL TOPICAL (20:26)
[2022-10-28 20:51] LABS: Glucose, Whole Blood 91 mg/dL (60-115)
[2022-10-29] VITALS (7 sets, daily range): BP systolic 119–134; BP diastolic 61–72; PULSE 67–82; RESP 16–20; TEMP 36.6–37.1; O2SAT 96–99
[2022-10-29] MEDS: vancomycin HCL Oral Solution 125 MG/5 ML SOLN.RECON PO ×4 (02:43→20:50)
--- NOTE | 2022-10-29 05:36 | PC.NURSE ---
There was a IT computer glitch and the documentation done under RN Rekha Alan on 10/28 around 20:00 should be under RN Nely Manzanares. IT aware.
[2022-10-29 07:11] LABS: Anion Gap 15 (12-20); Blood Urea Nitrogen 42 mg/dL (9-16); Calcium 8.7 mg/dL (8.4-10.2); Carbon Dioxide 24 mmol/L (22-29); Chloride 105 mmol/L (96-108); Creatinine Clr Calc Pharmacy 36.3; Estimated Glomerular Filt Rate 28; Glucose Random 75 mg/dL (60-115); Potassium 3.6 mmol/L (3.3-5.1); Sodium 140 mmol/L (135-145)
[2022-10-29 07:20] LABS: Glucose, Whole Blood 83 mg/dL (60-115)
[2022-10-29] MEDS: Salmeterol Xinafoate 50 MCG BLST.W.DEV 1 PUFF INHALE ×2 (07:49→19:39)
[2022-10-29] MEDS: Ferrous Sulfate 324 MG TABLET.DR PO (08:02)
[2022-10-29] MEDS: Apixaban 2.5 MG TABLET PO ×2 (08:02→20:50)
[2022-10-29] MEDS: rifAXIMin 550 MG TABLET PO ×2 (08:02→20:49)
[2022-10-29] MEDS: calcitrioL 0.25 MCG CAPSULE 0.5 MCG PO (08:02)
[2022-10-29] MEDS: Fidaxomicin 200 MG TABLET PO ×2 (08:02→20:50)
[2022-10-29] MEDS: Metoprolol Tartrate 12.5 MG HALFTAB PO ×2 (08:02→20:49)
[2022-10-29] MEDS: 0.9 % Sodium Chloride Flush 3 ML SYRINGE IVFLUSH ×2 (08:03→20:52)
[2022-10-29] MEDS: Nystatin Powder 15 GM BOTTLE 1 APPL TOPICAL ×2 (08:05→20:50)
[2022-10-29] MEDS: Ammonium Lactate 12 % Cream 140 GM TUBE 1 APPL TOPICAL (08:05)
[2022-10-29] MEDS: Clotrimazole 1 % Cream 15 GM TUBE 1 APPL TOPICAL (08:06)
[2022-10-29 11:24] LABS: Glucose, Whole Blood 91 mg/dL (60-115)
--- NOTE | 2022-10-29 12:29 | MHC.SL.SWA ---
Speech Pathologist Impression: Mild oral phase dysphagia Risk of Aspiration Due to: Medically Fragile Dysphasia Diet Status: Upgrade liquids Liquid Consistency and Strategies for Safe Swallow: Liquid Intake Recommendation: Thin Liquid Intake Strategies: Small Sips Solid Food Consistency: Dietary Recommendations: NDD3, soft bread OK Oral Medication Intake: Whole with Liquid/Puree Please contact the pharmacy regarding appropriate crushable or liquid drug formulations that are available whenever modified delivery is recommended. Compensatory Strategies and Precautions to be Taken for Safe Swallow: Sitting Upright (90 deg) Double Swallow Small Bites and Sips Alternate Liquids/Solids Rate of Ingestion Change Avoid Specific Foods Supervision While Eating and Drinking for Safe Swallow: Supervision Foods to Avoid: Mixed consistencies (soups, cereals), difficult to chew solids. Swallowing Recommended Treatments: Compens. Strategy Educat. Recommendation for Speech: Inpatient Speech Therapy Per conversation with RN, recommend pt continue with CHOPPED/ADVANCED solids (SOFT breads OK i.e. hamburger bun). Upgrade to THIN liquids (Straws OK). Pills whole w/ liquid or puree (one at a time), depending on pt preference. Recommend supervision/assistance during meals to provide assistance w/ tray as needed and reminders to take small bites/sips slowly. Continue to avoid mixed consistencies (i.e. soup, cereal). , RD notified of change by secure text, discussed with RN in person. Updated whiteboard in pt's room w/ this recommendation. SOFTWARE SOLUTIONS ARCHITECT will continue to follow for toleration of diet, re-assessment of swallow as needed. SOFTWARE SOLUTIONS ARCHITECT made diet adjustment in orders. Pt and provided education on s/s of dysphagia. Resident Care Associate Clinican/Clinical Fellow: No Supervisory Statement: I have reviewed and agree with the student/clinical fellow's documentation: N/A Speech Language Pathologist: Neena Arrington M.A., SOFTWARE SOLUTIONS ARCHITECT
--- NOTE | 2022-10-29 12:59 | HO.PM.IMPN ---
Subjective Subjective Date of Service: 10/29/22 Interval History: being followed for renal failure, congestive heart failure and C diff infection, rectal tube in place patient noted to have multiple coccyx ulcers. complaining of right hand discomfort, no other acute events overnight, offers no other complaints no nausea, no vomiting,and no abdominal pain. Review of Systems Review of Systems: Yes all other systems are reviewed and are negative Physical Exam Vital Signs: Vital Signs: Last Vital Signs Temp 97.9 F 10/29/22 11:50 Pulse 74 10/29/22 11:50 Resp 20 10/29/22 11:50 BP 134/66 10/29/22 11:50 Pulse Ox 99 10/29/22 11:50 O2 Del Method Room Air 10/29/22 11:50 BMI result Body Mass Index 30.5 Const: Other: HEENT: sclera anicteric, moist mucus membranes Neck: supple Lungs: clear to auscultation bilaterally Heart: regular rate and rhythm, no murmurs Abd: soft, nontender, bowel sounds audible, no guarding, no rigidity Ext:? mild edema rectal tube in place with liquidy stools Skin: coccyx stage II ulceration with surrounding macerated skin, midline sacral ulcer unstageable Neuro: nonfocal Psych: appropriate affect Objective Data Active Medications Acetaminophen (Acetaminophen 325 Mg Tablet) 650 mg PO Q6H PRN PRN Reason: Pain, Mild (Pain Scale 1-3) Last Admin: 10/22/22 05:19 Dose: 650 mg Documented By: SHIRLEY Albuterol Sulfate (Albuterol Sulfate 90 Mcg 8 Gm Inhaler) 2 puff INHALE Q4H PRN PRN Reason: Shortness Of Breath Or Wheezing Albuterol/Ipratropium (Albuterol/Iprat 2.5/0.5mg 3 Ml Ampul.Neb) 3 ml INHALE RQ6H WHILE AWAKE PRN PRN Reason: Shortness of Breath/Wheezing Apixaban (Apixaban 2.5 Mg Tablet) 2.5 mg PO BID [facility] Last Admin: 10/29/22 08:02 Dose: 2.5 mg Documented By: IKE Calcitriol (Calcitriol 0.25 Mcg Capsule) 0.5 mcg PO DAILY [facility] Last Admin: 10/29/22 08:02 Dose: 0.5 mcg Documented By: IKE Clotrimazole (Clotrimazole 1 % Cream 15 Gm Tube) 1 appl TOPICAL BID [facility]; Protocol Last Admin: 10/29/22 08:06 Dose: 1 appl Documented By: IKE Docusate Sodium (Docusate Sodium 100 Mg Capsule) 100 mg PO DAILY PRN PRN Reason: Constipation Doxazosin Mesylate (Doxazosin Mesylate 2 Mg Tablet) 4 mg PO BEDTIME [facility] Last Admin: 10/28/22 20:24 Dose: 4 mg Documented By: MAGUE Ferrous Sulfate (Ferrous Sulfate 324 Mg Tablet.Dr) 324 mg PO DAILY [facility] Last Admin: 10/29/22 08:02 Dose: 324 mg Documented By: IKE Fidaxomicin (Fidaxomicin 200 Mg Tablet) 200 mg PO BID [facility] Stop: 11/02/22 20:59 Last Admin: 10/29/22 08:02 Dose: 200 mg Documented By: IKE Glucose (Glucose Gel 15 Gm Gel..Gram.) 15 gm PO Q15M PRN; Protocol PRN Reason: per Hypoglycemia Standing Ord. Last Admin: 10/23/22 08:03 Dose: 15 gm Documented By: BRADLY Dextrose (D10) 250 mls @ 750 mls/hr IV Q15M PRN; Protocol PRN Reason: per Hypoglycemia Standing Ord. Insulin Human Lispro (Insulin Lispro 100 Unit/Ml 3 Ml Vial) 0 unit SUBCUT QIDACHS [facility]; Protocol Last Admin: 10/29/22 11:20 Dose: Not Given Documented By: IKE Non-Admin Reason: No Insulin Coverage Isosorbide Mononitrate (Isosorbide Mononitrate 30 Mg Tab.Er.24h) 30 mg PO DAILY [facility]; Protocol Last Admin: 10/14/22 09:29 Dose: 30 mg Documented By: HALIE Lactic Acid (Ammonium Lactate 12 % Cream 140 Gm Tube) 1 appl TOPICAL BID PRN; Protocol PRN Reason: Dry Skin Last Admin: 10/29/22 08:05 Dose: 1 appl Documented By: IKE Metoprolol Tartrate (Metoprolol Tartrate 12.5 Mg Halftab) 12.5 mg PO BID [facility]; Protocol Last Admin: 10/29/22 08:02 Dose: 12.5 mg Documented By: IKE Nystatin (Nystatin Powder 15 Gm Bottle) 1 appl TOPICAL BID [facility]; Protocol Last Admin: 10/29/22 08:05 Dose: 1 appl Documented By: IKE Ondansetron HCl (Ondansetron Hcl 4 Mg/2 Ml Vial) 4 mg IVPUSH Q8H PRN PRN Reason: Nausea and Vomiting Pharmacy Consult (Consult Rx Perform Med Rec) 1 each MISCELLANE ONCE PRN PRN Reason: Consult order Polyethylene Glycol (Polyethylene Glycol 3350 17 Gm Powd.Pack) 17 gm PO DAILY PRN PRN Reason: Constipation Pravastatin Sodium (Pravastatin Sodium 20 Mg Tablet) 20 mg PO BEDTIME [facility] Last Admin: 10/28/22 20:25 Dose: 20 mg Documented By: MAGUE Rifaximin (Rifaximin 550 Mg Tablet) 550 mg PO BID [facility] Last Admin: 10/29/22 08:02 Dose: 550 mg Documented By: IKE Salmeterol Xinafoate (Salmeterol Xinafoate 50 Mcg Blst.W.Dev) 1 puff INHALE RBID [facility] Last Admin: 10/29/22 07:49 Dose: 1 puff Documented By: PHYLICIA Sodium Bicarbonate (Sodium Bicarbonate 650 Mg Tablet) 650 mg PO QID PRN PRN Reason: Gastric Reflux Sodium Chloride (0.9 % Sodium Chloride Flush 3 Ml Syringe) 3 ml IVFLUSH QSHIFT [facility] Last Admin: 10/29/22 08:03 Dose: 3 ml Documented By: IKE Tiotropium [place] (Tiotropium [place] 18 Mcg Cap.W.Dev) 1 puff INHALE RDAILY [facility] Last Admin: 10/29/22 07:49 Dose: 1 puff Documented By: PHYLICIA Vancomycin HCl (Vancomycin Hcl Oral Solution 125 Mg/5 Ml Soln.Recon) 125 mg PO Q6H [facility] Stop: 11/01/22 19:59 Last Admin: 10/29/22 08:02 Dose: 125 mg Documented By: IKE Labs 10/27/22 05:11 10/29/22 06:04 Labs: Laboratory Results - last 24 hr 10/28/22 10/28/22 10/29/22 15:20 20:41 06:04 Anion Gap 15 Estim Creat Clear Calc 36.3 Estimated GFR 28 POC Glucose 97 91 Random Glucose 75 Calcium 8.7 D 10/29/22 10/29/22 06:58 11:14 Anion Gap Estim Creat Clear Calc Estimated GFR POC Glucose 83 91 Random Glucose Calcium Assessment and Plan (1) Clostridioides difficile diarrhea: Status: Acute (2) Acute on chronic diastolic CHF (congestive heart failure), NYHA class 3: Status: Acute (3) Paroxysmal A-fib: Status: Acute (4) Decompensated heart failure: Status: Acute Plan 67 year old with CKD4, DM2, COPD, HTN, HLD, ZEYAD, AF on apixaban presenting with exertional dyspnea x 1 wk, admitted for CHF exacerbation hospitalization complicated by hepatic encephalopathy, CARY, and Cdiff infection. Cdiff infection persistent diarrhea, rectal tube in place will DC lactulose seen by ID, sharifa matthews and [place] for total 10 days ending 11/02/22 vtach. Resolved had 13 beat episode 10/24 s/p empiric magnesium,k 40 q4h x2 ,magnesium 2.1, stable potassium of on low dose BB, 12.5 mg b.i.d. tele monitoring cirrhosis with ascites underwent diagnostic tap, no SBP, ascites most likely from severe pulmonary hypertension, tricuspid regurgitation /heart failure GI following CARY/CKD4 concern for cardiorenal and hepatorenal syndrome Permacath placed 10/17/22 nephrology following , continue hemodialysis on Thursday and Saturdays for fluid management acute HFpEF last TTE 09/25/22 with LVEF 55%, mod diastolic dysfunction, pulmonary HTN negative 24L thus far d/c diuretics [torsemide, acetazolamide, metolazone] as started dialysis [10/22] acute toxic metabolic encephalopathy likely multifactorial due to renal failure, cdif, and hepatic encephalopathy started on lactulose/rifaximin for hepatic encephalopathy , since encephalopathy resolved will DC lactulose due to persistent diarrhea hypokalemia resolved repeat potassium 3.6 paroxysmal AF s/p PPM placement 09/27 continue AC with apixaban DM2 stable blood sugars, DC insulin sliding scale and point of care blood sugar monitoring, ada diet stage II coccyx ulcers, frequent position change, air loss mattress, added protein supplements, wound consult HTN stable blood sugar continue metoprolol home dose 12.5 b.i.d. acute/chronic anemia s/p 2u pRBCs 10/14/22 likely due to CKD + cirrhosis H+H stable continue Fe supplementation thrombocytopenia chronic and stable COPD not in acute exacerbation prn albuterol, controller inhalers [salmeterol, tiotropium] Obesity BMI 30.5 weight management VTE ppx: apixaban dispo: Plan for STR In my clinical judgment, the patient requires continued inpatient hospitalization for the following reasons: dialysis, electrolyte monitoring, telemetry monitoring and safe disposition to rehab Time Spent With Patient Time: Total time managing care of this patient today ____ minutes. Quality Stroke Does the patient have a stroke diagnosis?: No VTE Prior VTE?: No VTE Risk Level:: Medical - moderate - high VTE Device Contraindication: Treatment Not Indicated VTE Drug Contraindication: N/A - Med Ordered
--- NOTE | 2022-10-29 13:09 | MHC.CM.PN ---
EMR REVIEWED AND PER MD ROUNDS, PT IS NOT MEDICALLY CLEARED FOR DC (RECTAL TUBE, LOOSE STOOLS, NEW SACRAL WOUNDS) CM WILL CONTINUE TO FOLLOW FOR CHANGE IN PLAN
--- NOTE | 2022-10-29 15:02 | PC.NURSE ---
pt's rectal tube accidentally removed by pt. pt reluctant to have tube replaced. pt states he is able to verbalize his toileting needs. when cleaning pt this morning, two wounds were noted on around coccyx: stage 2 L buttock and a difficult to stage/unstageable on coccyx. wounds were lightly cleaned, a foam was applied, barrier cream was also applied.
[2022-10-29 16:47] LABS: Glucose, Whole Blood 96 mg/dL (60-115)
[2022-10-29 20:04] LABS: Glucose, Whole Blood 91 mg/dL (60-115)
[2022-10-29] MEDS: Doxazosin Mesylate 2 MG TABLET 4 MG PO (20:49)
[2022-10-29] MEDS: Pravastatin Sodium 20 MG TABLET PO (20:50)
[2022-10-30] VITALS (10 sets, daily range): BP systolic 113–142; BP diastolic 61–73; PULSE 56–87; RESP 17–20; TEMP 36.2–37; O2SAT 95–100; BMI 30.5
[2022-10-30] MEDS: vancomycin HCL Oral Solution 125 MG/5 ML SOLN.RECON PO ×4 (03:04→20:00)
[2022-10-30 07:22] LABS: Glucose, Whole Blood 73 mg/dL (60-115)
[2022-10-30] MEDS: Salmeterol Xinafoate 50 MCG BLST.W.DEV 1 PUFF INHALE ×2 (07:25→19:35)
[2022-10-30] MEDS: calcitrioL 0.25 MCG CAPSULE 0.5 MCG PO (08:01)
[2022-10-30] MEDS: Metoprolol Tartrate 12.5 MG HALFTAB PO ×2 (08:01→20:01)
[2022-10-30] MEDS: Fidaxomicin 200 MG TABLET PO ×2 (08:01→20:01)
[2022-10-30] MEDS: Apixaban 2.5 MG TABLET PO ×2 (08:01→20:00)
[2022-10-30] MEDS: rifAXIMin 550 MG TABLET PO ×2 (08:01→20:01)
[2022-10-30] MEDS: Ferrous Sulfate 324 MG TABLET.DR PO (08:02)
[2022-10-30] MEDS: Clotrimazole 1 % Cream 15 GM TUBE 1 APPL TOPICAL ×2 (08:03→20:08)
[2022-10-30] MEDS: Nystatin Powder 15 GM BOTTLE 1 APPL TOPICAL ×2 (08:03→20:03)
[2022-10-30] MEDS: 0.9 % Sodium Chloride Flush 3 ML SYRINGE IVFLUSH ×2 (08:05→15:16)
--- NOTE | 2022-10-30 09:24 | PM.PNNEP ---
Subjective Subjective Date of Service: 10/30/22 Principal diagnosis: Decompensated heart failure Interval history: Events noted. Comfortable. Still has diarrhea. Physical Exam Vital Signs: Vital Signs: Last Vital Signs Temp 97.2 F 10/30/22 07:42 Pulse 87 10/30/22 07:42 Resp 20 10/30/22 07:42 BP 123/71 10/30/22 07:42 Pulse Ox 99 10/30/22 07:42 O2 Del Method Room Air 10/30/22 07:42 BMI result Body Mass Index 30.5 Comfortable Neck is supple Lung: Air entry equal Heart: S1,S2, normal. No rub Abd: Soft. BS + NS : Alert.No asterexis Ext: No edema Objective Data Labs 10/27/22 05:11 10/29/22 06:04 Labs: Laboratory Results - last 24 hr 10/29/22 10/29/22 10/29/22 11:14 16:25 19:36 POC Glucose 91 96 91 10/30/22 07:15 POC Glucose 73 Microbiology Microbiology Results: Microbiology 10/22/22 08:55 Blood - Venous Blood Culture - Final No growth after 5 days. 10/22/22 08:55 Blood - Venous Blood Culture - Final No growth after 5 days. 10/22/22 14:21 Ascites Fluid Gram Stain - Final 10/22/22 14:21 Ascites Fluid Anaerobic Culture - Final NO GROWTH AFTER 5 DAYS 10/22/22 14:21 Ascites Fluid Body Fluid Culture - Final No growth after 2 days 10/14/22 Unknown Urine clean catch - Urine keys top Urine Culture - Final Procedures Date of Service Date of Service: 10/30/22 Assessment & Plan Assessment and plan (1) Acute on chronic diastolic CHF (congestive heart failure), NYHA class 3: Status: Acute (2) CKD (chronic kidney disease) stage 4, GFR 15-29 ml/min: Status: Acute Plan Advanced CKD approaching ESRD. He is tolerating dialysis and fluid removal. He is currently on dialysis primarily for fluid management. Clinically is not uremic. We will continue with hemodialysis and remove fluid as tolerated. Hypokalemia due to GI losses. Potassium is normalized Anemia. Due to the combination of iron deficiency and erythropoietin deficiency. On Epogen Epogen. He will require rehab. hemodialysis at [place] dialysis 3 x week for 3 hrs since his is also getting dialyzed there. Time Spent With Patient Time: Total time managing care of this patient today ____ minutes. Progress Note: Quality Stroke Does the patient have a stroke diagnosis?: No
--- NOTE | 2022-10-30 09:25 | HO.WOUND ---
Wound Care Consult Reason for consult: Coccyx ulcer Patient has an abraded area on coccyx and right buttock. Coccyx area seems to be full thickness and right buttock is partial thickness. Allevyn foam dressing in place at the time of consult. Wound bed appearance was mostly red granulation with a small amount of slough/fibrin. Wound edges were attached. No undermining or tunneling. Surrounding tissue is intact for the most part, the periwound on the right buttock was peeling. There was a moderate amount of serosangineous drainage. Wound area measured about 8cm x 8cm x 0.2cm (cluster of 3 areas). Wounds were cleansed with the sea clens wound wash. Applied alginate ag cut to the size of wounds, skin prepped area and covered with 2 allevyn foams. Recommendation: Cleanse wound with normal saline or the sea clense wound wash, cut alginate ag to wound size and cover with allevyn foam. Change daily and as needed for soiling.
--- NOTE | 2022-10-30 10:38 | MHC.CLN ---
RE: CONSULT PT WITH INCREASED NUTRITION RISK R/T PRESSURE INJURIES PO INTAKE VARIABLE THROUGHOUT ADMISSION DIET RX: 2000DM, LOW PHOS, 2GM NA CHOPPED-APPROPRIATE PT WITH ORDER FOR GLUCERNA HOWEVER GLUCERNA SHAKES ON BACK ORDERED AND NOT AVAILABLE AT THIS TIME RECOMMEND ENSURE MAX BID TO PROVIDE 300KCALS, 60G PROTEIN TO PROMOTE WOUND HEALING MONITOR PO INTAKE CLOSELY SEE ALSO FULL CLINICAL NUTRITION ASSESSMENT
[2022-10-30 11:27] LABS: Glucose, Whole Blood 96 mg/dL (60-115)
--- NOTE | 2022-10-30 12:30 | HO.WOUNDCONS ---
History of Present Illness Data of Consult Service Date: 10/29/22 Primary Care Provider: Steve Nguyen MD [facility] Reason for consult: Sacral wounds The patient is a 67-year-old male who is here with multiple medical issues but we are being consulted for sacral and buttock wounds with skin breakdown. He has C diff colitis and is being treated for this but has had multiple loose bowel movements and had a rectal tube in place. He has a history of alcohol abuse and has alcoholic encephalopathy as well and was being given medication for diarrhea promotion Review of Systems Review of Systems: Yes Unobtainable due to mental status [facility] Medical History (Updated 10/30/22 @ 12:40 by Herlinda Georges MD) Acute kidney injury superimposed on chronic kidney disease Afib Anasarca Anemia Anemia BPH (benign prostatic hyperplasia) Bradycardia Chronic kidney disease Cirrhosis CKD (chronic kidney disease) stage 4, GFR 15-29 ml/min Clostridioides difficile diarrhea COPD (chronic obstructive pulmonary disease) Depression, major Diabetic retinopathy Diastolic heart failure Edema Essential thrombocytopenia Fistula Gout High cholesterol HTN (hypertension) Hypercholesterolemia Incomplete emptying of bladder due to benign prostatic hyperplasia Lumbar degenerative disc disease Lymphedema Obesity (BMI 30-39.9) Obstructive sleep apnea Osteoarthritis Pacemaker Pancytopenia Paroxysmal A-fib Peripheral neuropathy Peripheral vascular disease Pulmonary hypertension Pulmonary hypertension Scrotal edema SLE (systemic lupus erythematosus related syndrome) Type 2 diabetes mellitus with hyperglycemia Venous stasis dermatitis Family History Father Prostate cancer CVD (cardiovascular disease) Mother Hemochromatosis Brother Motor vehicle accident Sister CAD (coronary artery disease) Maternal Grandfather Myocardial infarction Surgical History H/O prior ablation treatment History of bilateral cataract extraction History of bowel diversion surgery History of carpal tunnel release History of gastric surgery History of tonsillectomy Social History Household Members: Spouse Housing: House Do you presently have visiting nurse or other home services: Yes Alcohol intake: never Patient Tobacco Use Status: Former Tobacco user Tobacco use type: Cigarette Smoked in Last 30 Days: No e-Cigarette/Vaping Use: Former Use Patient Interested in Nicotine Replacement: No Patient Given Instructions on How to Stop Smoking: No Second Hand Smoke Exposure: Yes Use of substances other than those prescribed or required for medical reasons: No Substance Use Type: Marijuana Currently Displaying Signs/Symptoms of Drug Intoxication Withdrawal: No Any prior treatment program specific to substance use: No Have you been hit, kicked, punched, or otherwise hurt by someone within the past year? If so, by whom?: No Do you feel safe in your current relationship?: Yes Is there a partner from a previous relationship who is making you feel unsafe now?: No Are you made to feel afraid or neglected: No Advance Directives: No Advance Directives Information Provided: Yes Do you have thoughts of harming others: None Do you have a plan to hurt others: No Plan Recently lost weight without trying: Unsure How much weight loss: Unsure Eating poorly because of decreased appetite: Yes Nutrition screen score: 5 Nutrition Risks: Recent weight gain Poor oral hygiene: No service: No Current occupational status: retired Cognitive needs: Yes Hearing needs: Yes Vision needs: Yes Meds Allergies Allergy/AdvReac Type Severity Reaction Status Date / Time No Known Allergies Allergy Verified 10/13/22 17:04 [No Known Allergies*] Active Medications: Current Medications Acetaminophen (Acetaminophen 325 Mg Tablet) 650 mg PO Q6H PRN PRN Reason: Pain, Mild (Pain Scale 1-3) Last Admin: 10/22/22 05:19 Dose: 650 mg Albuterol Sulfate (Albuterol Sulfate 90 Mcg 8 Gm Inhaler) 2 puff INHALE Q4H PRN PRN Reason: Shortness Of Breath Or Wheezing Albuterol/Ipratropium (Albuterol/Iprat 2.5/0.5mg 3 Ml Ampul.Neb) 3 ml INHALE RQ6H WHILE AWAKE PRN PRN Reason: Shortness of Breath/Wheezing Apixaban (Apixaban 2.5 Mg Tablet) 2.5 mg PO BID [facility] Last Admin: 10/30/22 08:01 Dose: 2.5 mg Calcitriol (Calcitriol 0.25 Mcg Capsule) 0.5 mcg PO DAILY [facility] Last Admin: 10/30/22 08:01 Dose: 0.5 mcg Clotrimazole (Clotrimazole 1 % Cream 15 Gm Tube) 1 appl TOPICAL BID [facility]; Protocol Last Admin: 10/30/22 08:03 Dose: 1 appl Docusate Sodium (Docusate Sodium 100 Mg Capsule) 100 mg PO DAILY PRN PRN Reason: Constipation Doxazosin Mesylate (Doxazosin Mesylate 2 Mg Tablet) 4 mg PO BEDTIME [facility] Last Admin: 10/29/22 20:49 Dose: 4 mg Ferrous Sulfate (Ferrous Sulfate 324 Mg Tablet.Dr) 324 mg PO DAILY [facility] Last Admin: 10/30/22 08:02 Dose: 324 mg Fidaxomicin (Fidaxomicin 200 Mg Tablet) 200 mg PO BID [facility] Stop: 11/02/22 20:59 Last Admin: 10/30/22 08:01 Dose: 200 mg Glucose (Glucose Gel 15 Gm Gel..Gram.) 15 gm PO Q15M PRN; Protocol PRN Reason: per Hypoglycemia Standing Ord. Last Admin: 10/23/22 08:03 Dose: 15 gm Dextrose (D10) 250 mls @ 750 mls/hr IV Q15M PRN; Protocol PRN Reason: per Hypoglycemia Standing Ord. Insulin Human Lispro (Insulin Lispro 100 Unit/Ml 3 Ml Vial) 0 unit SUBCUT QIDACHS [facility]; Protocol Last Admin: 10/30/22 08:04 Dose: Not Given Isosorbide Mononitrate (Isosorbide Mononitrate 30 Mg Tab.Er.24h) 30 mg PO DAILY [facility]; Protocol Last Admin: 10/14/22 09:29 Dose: 30 mg Lactic Acid (Ammonium Lactate 12 % Cream 140 Gm Tube) 1 appl TOPICAL BID PRN; Protocol PRN Reason: Dry Skin Last Admin: 10/29/22 08:05 Dose: 1 appl Metoprolol Tartrate (Metoprolol Tartrate 12.5 Mg Halftab) 12.5 mg PO BID [facility]; Protocol Last Admin: 10/30/22 08:01 Dose: 12.5 mg Nystatin (Nystatin Powder 15 Gm Bottle) 1 appl TOPICAL BID [facility]; Protocol Last Admin: 10/30/22 08:03 Dose: 1 appl Ondansetron HCl (Ondansetron Hcl 4 Mg/2 Ml Vial) 4 mg IVPUSH Q8H PRN PRN Reason: Nausea and Vomiting Pharmacy Consult (Consult Rx Perform Med Rec) 1 each MISCELLANE ONCE PRN PRN Reason: Consult order Polyethylene Glycol (Polyethylene Glycol 3350 17 Gm Powd.Pack) 17 gm PO DAILY PRN PRN Reason: Constipation Pravastatin Sodium (Pravastatin Sodium 20 Mg Tablet) 20 mg PO BEDTIME [facility] Last Admin: 10/29/22 20:50 Dose: 20 mg Rifaximin (Rifaximin 550 Mg Tablet) 550 mg PO BID [facility] Last Admin: 10/30/22 08:01 Dose: 550 mg Salmeterol Xinafoate (Salmeterol Xinafoate 50 Mcg Blst.W.Dev) 1 puff INHALE RBID [facility] Last Admin: 10/30/22 07:25 Dose: 1 puff Sodium Bicarbonate (Sodium Bicarbonate 650 Mg Tablet) 650 mg PO QID PRN PRN Reason: Gastric Reflux Sodium Chloride (0.9 % Sodium Chloride Flush 3 Ml Syringe) 3 ml IVFLUSH QSHIFT [facility] Last Admin: 10/30/22 08:05 Dose: 3 ml Tiotropium [place] (Tiotropium [place] 18 Mcg Cap.W.Dev) 1 puff INHALE RDAILY [facility] Last Admin: 10/30/22 07:25 Dose: 1 puff Vancomycin HCl (Vancomycin Hcl Oral Solution 125 Mg/5 Ml Soln.Recon) 125 mg PO Q6H [facility] Stop: 11/01/22 19:59 Last Admin: 10/30/22 08:01 Dose: 125 mg Home Medications Medication Instructions Recorded Confirmed Last Taken Type calcitriol 0.5 mcg capsule 0.5 mcg PO DAILY 04/03/20 10/13/22 10/13/22 History albuterol sulfate 90 mcg/actuation 2 puff inhalation Q4H PRN 07/05/20 10/13/22 10/13/22 History aerosol inhaler (ProAir HFA) Shortness Of Breath Or Wheezing sodium bicarbonate 650 mg tablet 650 mg PO QID PRN Gastric Reflux 09/22/22 10/13/22 10/13/22 History polyethylene glycol 3350 17 gram 17 g PO DAILY PRN Constipation 09/24/22 10/13/22 10/13/22 History oral powder packet (Miralax) terazosin 5 mg capsule 5 mg PO BEDTIME 10/13/22 10/13/22 10/13/22 History Physical Exam Vital Signs and Narrative: Vital Signs: Last Vital Signs Temp 97.2 F 10/30/22 11:28 Pulse 85 10/30/22 11:28 Resp 20 10/30/22 11:28 BP 120/73 10/30/22 11:28 Pulse Ox 100 10/30/22 11:28 O2 Del Method Room Air 10/30/22 11:28 BMI result Body Mass Index 30.5 Skin: Other: Reason for consult: Coccyx ulcer ? ? Patient has an abraded area on coccyx and right buttock. Coccyx area seems to be full thickness and right buttock is partial thickness. Allevyn foam dressing in place at the time of consult. Wound bed appearance was mostly red granulation with a small amount of slough/fibrin. Wound edges were attached. No undermining or tunneling. Surrounding tissue is intact for the most part, the periwound on the right buttock was peeling. There was a moderate amount of serosangineous drainage. Wound area measured about 8cm x 8cm x 0.2cm (cluster of 3 areas). Wounds were cleansed with the [email or web address] wound wash. Applied alginate ag cut to the size of wounds, skin prepped area and covered with 2 allevyn foams. ? Results Labs 10/27/22 05:11 10/29/22 06:04 Labs: Laboratory Results - last 24 hr 10/29/22 10/29/22 10/30/22 16:25 19:36 07:15 POC Glucose 96 91 73 10/30/22 11:10 POC Glucose 96 Assessment and Plan (1) Dermatitis associated with moisture from stool incontinence: Status: Acute Plan Patient is a 67-year-old male with moisture associated dermatitis skin breakdown in the coccyx and sacral area probably secondary to his C diff colitis and diarrhea and the rectal tube. At this point plan to remove rectal tube as soon as possible but need to maintain a relatively dry environment for his buttock skin. Carry out dressings as above with some alginate as well as zinc oxide for barrier protection. These wounds are not true pressure wounds but we need to stake cognizant of pressure wounds in these types of patients with shifting every 2 3 hours and offloading the body. Time Spent With Patient Time: Total time managing care of this patient today ____ minutes.
--- NOTE | 2022-10-30 12:37 | MHC.SLORD ---
Addendum entered and electronically signed by STEW Crow 10/30/22 14:01: Made second attempt in PM to see patient, patient was still away at dialysis. Original Note: Speech Language Pathology Order Status: Attempted to see patient today for toleration of upgraded diet (Chopped/Advanced, Thin), patient away at dialysis during lunch. Will continue to follow.
--- NOTE | 2022-10-30 14:21 | P.PNIM_ITS ---
Subjective Subjective Date of Service: 10/30/22 Interval History: resting comfortably in bed complaining of lower back discomfort otherwise offers no other complaints of nausea vomiting, no abdominal pain, no chest pain no lightheadedness or dizziness, no shortness of breath, in no acute issues overnight his stools are more formed, rectal tube is out. Review of Systems Review of Systems: Yes all other systems are reviewed and are negative Physical Exam Vital Signs: Vital Signs: Last Vital Signs Temp 97.2 F 10/30/22 11:28 Pulse 85 10/30/22 11:28 Resp 20 10/30/22 11:28 BP 120/73 10/30/22 11:28 Pulse Ox 100 10/30/22 11:28 O2 Del Method Room Air 10/30/22 11:28 BMI result Body Mass Index 30.5 Const: Other: HEENT: sclera anicteric, moist mucus membranes Neck: supple right anterior chest wall hemodialysis catheter in place with mild surrounding bruise, pacemaker in place left chest wall Lungs: clear to auscultation bilaterally Heart: regular rate and rhythm, no murmurs Abd: soft,? nontender, bowel sounds audible, no guarding, no rigidity Ext:? chronic discoloration, no edema Skin:? coccyx full-thickness and right buttock partial-thickness wound/stage II ulceration with surrounding macerated skin.? Neuro: nonfocal Psych: appropriate affect Objective Data Active Medications Acetaminophen (Acetaminophen 325 Mg Tablet) 650 mg PO Q6H PRN PRN Reason: Pain, Mild (Pain Scale 1-3) Last Admin: 10/22/22 05:19 Dose: 650 mg Documented By: SHIRLEY Albuterol Sulfate (Albuterol Sulfate 90 Mcg 8 Gm Inhaler) 2 puff INHALE Q4H PRN PRN Reason: Shortness Of Breath Or Wheezing Albuterol/Ipratropium (Albuterol/Iprat 2.5/0.5mg 3 Ml Ampul.Neb) 3 ml INHALE RQ6H WHILE AWAKE PRN PRN Reason: Shortness of Breath/Wheezing Apixaban (Apixaban 2.5 Mg Tablet) 2.5 mg PO BID [facility] Last Admin: 10/30/22 08:01 Dose: 2.5 mg Documented By: LAVINIA Calcitriol (Calcitriol 0.25 Mcg Capsule) 0.5 mcg PO DAILY [facility] Last Admin: 10/30/22 08:01 Dose: 0.5 mcg Documented By: LAVINIA Clotrimazole (Clotrimazole 1 % Cream 15 Gm Tube) 1 appl TOPICAL BID [facility]; Protocol Last Admin: 10/30/22 08:03 Dose: 1 appl Documented By: LAVINIA Docusate Sodium (Docusate Sodium 100 Mg Capsule) 100 mg PO DAILY PRN PRN Reason: Constipation Doxazosin Mesylate (Doxazosin Mesylate 2 Mg Tablet) 4 mg PO BEDTIME [facility] Last Admin: 10/29/22 20:49 Dose: 4 mg Documented By: KAYLEEN Ferrous Sulfate (Ferrous Sulfate 324 Mg Tablet.Dr) 324 mg PO DAILY [facility] Last Admin: 10/30/22 08:02 Dose: 324 mg Documented By: LAVINIA Fidaxomicin (Fidaxomicin 200 Mg Tablet) 200 mg PO BID [facility] Stop: 11/02/22 20:59 Last Admin: 10/30/22 08:01 Dose: 200 mg Documented By: LAVINIA Glucose (Glucose Gel 15 Gm Gel..Gram.) 15 gm PO Q15M PRN; Protocol PRN Reason: per Hypoglycemia Standing Ord. Last Admin: 10/23/22 08:03 Dose: 15 gm Documented By: BRADLY Dextrose (D10) 250 mls @ 750 mls/hr IV Q15M PRN; Protocol PRN Reason: per Hypoglycemia Standing Ord. Insulin Human Lispro (Insulin Lispro 100 Unit/Ml 3 Ml Vial) 0 unit SUBCUT QIDACHS [facility]; Protocol Last Admin: 10/30/22 13:10 Dose: Not Given Documented By: LAVINIA Non-Admin Reason: No Insulin Coverage Isosorbide Mononitrate (Isosorbide Mononitrate 30 Mg Tab.Er.24h) 30 mg PO DAILY [facility]; Protocol Last Admin: 10/14/22 09:29 Dose: 30 mg Documented By: HALIE Lactic Acid (Ammonium Lactate 12 % Cream 140 Gm Tube) 1 appl TOPICAL BID PRN; Protocol PRN Reason: Dry Skin Last Admin: 10/29/22 08:05 Dose: 1 appl Documented By: IKE Metoprolol Tartrate (Metoprolol Tartrate 12.5 Mg Halftab) 12.5 mg PO BID [facility]; Protocol Last Admin: 10/30/22 08:01 Dose: 12.5 mg Documented By: LAVINIA Nystatin (Nystatin Powder 15 Gm Bottle) 1 appl TOPICAL BID [facility]; Protocol Last Admin: 10/30/22 08:03 Dose: 1 appl Documented By: LAVINIA Ondansetron HCl (Ondansetron Hcl 4 Mg/2 Ml Vial) 4 mg IVPUSH Q8H PRN PRN Reason: Nausea and Vomiting Pharmacy Consult (Consult Rx Perform Med Rec) 1 each MISCELLANE ONCE PRN PRN Reason: Consult order Polyethylene Glycol (Polyethylene Glycol 3350 17 Gm Powd.Pack) 17 gm PO DAILY PRN PRN Reason: Constipation Pravastatin Sodium (Pravastatin Sodium 20 Mg Tablet) 20 mg PO BEDTIME [facility] Last Admin: 10/29/22 20:50 Dose: 20 mg Documented By: KAYLEEN Rifaximin (Rifaximin 550 Mg Tablet) 550 mg PO BID [facility] Last Admin: 10/30/22 08:01 Dose: 550 mg Documented By: LAVINIA Salmeterol Xinafoate (Salmeterol Xinafoate 50 Mcg Blst.W.Dev) 1 puff INHALE RBID [facility] Last Admin: 10/30/22 07:25 Dose: 1 puff Documented By: AL Sodium Bicarbonate (Sodium Bicarbonate 650 Mg Tablet) 650 mg PO QID PRN PRN Reason: Gastric Reflux Sodium Chloride (0.9 % Sodium Chloride Flush 3 Ml Syringe) 3 ml IVFLUSH QSHIFT [facility] Last Admin: 10/30/22 08:05 Dose: 3 ml Documented By: LAVINIA Tiotropium [place] (Tiotropium [place] 18 Mcg Cap.W.Dev) 1 puff INHALE RDAILY [facility] Last Admin: 10/30/22 07:25 Dose: 1 puff Documented By: AL Vancomycin HCl (Vancomycin Hcl Oral Solution 125 Mg/5 Ml Soln.Recon) 125 mg PO Q6H [facility] Stop: 11/01/22 19:59 Last Admin: 10/30/22 08:01 Dose: 125 mg Documented By: LAVINIA Labs 10/27/22 05:11 10/29/22 06:04 Labs: Laboratory Results - last 24 hr 10/29/22 10/29/22 10/30/22 16:25 19:36 07:15 POC Glucose 96 91 73 10/30/22 11:10 POC Glucose 96 Assessment and Plan (1) Clostridioides difficile diarrhea: Status: Acute (2) Acute on chronic diastolic CHF (congestive heart failure), NYHA class 3: Status: Acute (3) Paroxysmal A-fib: Status: Acute (4) Decompensated heart failure: Status: Acute Plan 67 year old with CKD4, DM2, COPD, HTN, HLD, ZEYAD, AF on apixaban presenting with exertional dyspnea x 1 wk, admitted for CHF exacerbation hospitalization complicated by hepatic encephalopathy, CARY, and Cdiff infection. Cdiff infection stools more formed, rectal tube is out, on vanco and deficid for total 10 days ending 11/02/22 vtach. Resolved had 13 beat episode 10/24 s/p empiric magnesium,k 40 q4h x2 ,magnesium 2.1, stable potassium continue low dose BB, 12.5 mg b.i.d. tele monitoring cirrhosis with ascites underwent diagnostic tap, no SBP, ascites most likely from severe pulmonary hypertension, tricuspid regurgitation /heart failure CARY/CKD4 concern for cardiorenal and hepatorenal syndrome Permacath placed 10/17/22 nephrology following , continue hemodialysis on Thursday and Saturdays for fluid management acute HFpEF last TTE 09/25/22 with LVEF 55%, mod diastolic dysfunction, pulmonary HTN negative 24L thus far d/c diuretics [torsemide, acetazolamide, metolazone] as started dialysis [10/22] acute toxic metabolic encephalopathy resolved was likely multifactorial due to renal failure, cdif, and hepatic encephalopathy started on lactulose/rifaximin for hepatic encephalopathy , since encephalopathy resolved will DC lactulose due to persistent diarrhea hypokalemia resolved repeat potassium 3.6 paroxysmal AF s/p PPM placement 09/27 continue AC with apixaban DM2 stable blood sugars, DC insulin sliding scale and point of care blood sugar monitoring, ada diet full-thickness (stage 3/4) coccyx ulcers, and right buttock stage II, frequent position change, air loss mattress, added protein supplements, seen by wound nurse patient placed on silver alginate and foam dressing HTN stable blood sugar continue metoprolol home dose 12.5 b.i.d. acute/chronic anemia s/p 2u pRBCs 10/14/22 likely due to CKD + cirrhosis H+H stable continue Fe supplementation thrombocytopenia chronic and stable COPD not in acute exacerbation prn albuterol, controller inhalers [salmeterol, tiotropium] Obesity BMI 30.5 weight management VTE ppx: apixaban dispo: Plan for STR In my clinical judgment, the patient requires continued inpatient hospitalization for the following reasons: dialysis, electrolyte monitoring, telemetry monitoring and safe disposition to rehab Time Spent With Patient Time: Total time managing care of this patient today ____ minutes. Quality Stroke Does the patient have a stroke diagnosis?: No VTE Prior VTE?: No VTE Risk Level:: Medical - moderate - high VTE Device Contraindication: Treatment Not Indicated VTE Drug Contraindication: N/A - Med Ordered
[2022-10-30] MEDS: Pravastatin Sodium 20 MG TABLET PO (20:00)
[2022-10-30] MEDS: Doxazosin Mesylate 2 MG TABLET 4 MG PO (20:01)
[2022-10-31] VITALS (9 sets, daily range): BP systolic 112–126; BP diastolic 58–72; PULSE 62–84; RESP 18–20; TEMP 36.2–37.6; O2SAT 98–100
[2022-10-31] MEDS: 0.9 % Sodium Chloride Flush 3 ML SYRINGE IVFLUSH ×4 (00:32→22:19)
[2022-10-31] MEDS: vancomycin HCL Oral Solution 125 MG/5 ML SOLN.RECON PO ×4 (02:20→22:16)
[2022-10-31] MEDS: Salmeterol Xinafoate 50 MCG BLST.W.DEV 1 PUFF INHALE ×2 (07:31→19:37)
[2022-10-31 07:55] LABS: Glucose, Whole Blood 72 mg/dL (60-115)
[2022-10-31] MEDS: rifAXIMin 550 MG TABLET PO ×2 (08:00→22:15)
[2022-10-31] MEDS: Fidaxomicin 200 MG TABLET PO ×2 (08:00→22:15)
[2022-10-31] MEDS: Apixaban 2.5 MG TABLET PO ×2 (08:00→22:15)
[2022-10-31] MEDS: Ferrous Sulfate 324 MG TABLET.DR PO (08:00)
[2022-10-31] MEDS: calcitrioL 0.25 MCG CAPSULE 0.5 MCG PO (08:00)
[2022-10-31] MEDS: Metoprolol Tartrate 12.5 MG HALFTAB PO ×2 (08:01→22:15)
[2022-10-31] MEDS: Clotrimazole 1 % Cream 15 GM TUBE 1 APPL TOPICAL ×2 (08:06→22:18)
[2022-10-31] MEDS: Nystatin Powder 15 GM BOTTLE 1 APPL TOPICAL ×2 (08:06→22:18)
--- NOTE | 2022-10-31 10:56 | MHC.SL.SWA ---
Speech Pathologist Impression: Mild oropharyngeal dysphagia Risk of Aspiration Due to: Medically Fragile Dysphasia Diet Status: No changes Liquid Consistency and Strategies for Safe Swallow: Liquid Intake Recommendation: Thin Liquid Intake Strategies: Small Sips Solid Food Consistency: Dietary Recommendations: Chopped/Advanced (NDD3) Additional Modifications to Solid Foods: Per conversation with RN, recommend pt continue with CHOPPED/ADVANCED solids (SOFT breads OK i.e. hamburger bun). Upgrade to THIN liquids (Straws OK). Pills whole w/ liquid or puree (one at a time), depending on pt preference. Pt may require some assistance with tray set up. Recommend intermittent supervision during meals. Avoid all mixed consistencies. KARON ANDERSEN notified of change by secure text, discussed with RN in person. Updated whiteboard in pt's room w/ this recommendation. RESIDENTIAL ADVISOR will continue to follow for toleration of diet, re-assessment of swallow as needed. Oral Medication Intake: Whole with Liquid Please contact the pharmacy regarding appropriate crushable or liquid drug formulations that are available whenever modified delivery is recommended. Compensatory Strategies and Precautions to be Taken for Safe Swallow: Sitting Upright (90 deg) Double Swallow Small Bites and Sips Alternate Liquids/Solids Rate of Ingestion Change Avoid Specific Foods Supervision While Eating and Drinking for Safe Swallow: Intermittent Supervision Foods to Avoid: Mixed consistencies (soups, cereals), difficult to chew solids. Swallowing Recommended Treatments: Compens. Strategy Educat. Recommendation for Speech: Inpatient Speech Therapy Fruit Stuffer Clinican/Clinical Fellow: No Supervisory Statement: I have reviewed and agree with the student/clinical fellow's documentation: N/A Speech Language Pathologist: Judy Sandoval M.A., CCC-RESIDENTIAL ADVISOR
--- NOTE | 2022-10-31 11:44 | MHC.CLN ---
F/U PT WITH INCREASED NUTRITION RISK R/T PRESSURE INJURIES PO INTAKE REMAINS VARIABLE DIET RX: 2000DM, LOW PHOS, 2GM NA CHOPPED-APPROPRIATE INTERNATIONAL LOGISTICS ANALYST FOLLOWING FOR APPROPRIATE DIET CONSISTENCY PT RECEIVING ENSURE MAX BID PROVIDES 300KCALS, 60G PROTEIN TO PROMOTE WOUND HEALING MONITOR PO INTAKE AND SUPPLEMENT ACCEPTANCE
--- NOTE | 2022-10-31 12:46 | HO.PM.IMPN ---
Subjective Subjective Date of Service: 10/31/22 Interval History: resting comfortably, denies lower back discomfort, tolerating diet denies nausea, no vomiting, no abdominal pain, no further bout of diarrhea, no fevers no chills,no acute events overnight. Review of Systems Review of Systems: Yes all other systems are reviewed and are negative Physical Exam Vital Signs: Vital Signs: Last Vital Signs Temp 97.2 F 10/31/22 11:39 Pulse 82 10/31/22 11:39 Resp 20 10/31/22 11:39 BP 112/58 L 10/31/22 11:39 Pulse Ox 99 10/31/22 11:39 O2 Del Method Room Air 10/31/22 11:39 BMI result Body Mass Index 30.5 Const: Other: HEENT: sclera anicteric, moist mucus membranes Neck: supple right anterior chest wall hemodialysis catheter in place with mild surrounding bruise, pacemaker in place? left chest wall Lungs: clear to auscultation bilaterally Heart: regular rate and rhythm, no murmurs Abd: soft,? nontender, bowel sounds audible, no guarding, no rigidity Ext:? chronic discoloration, no edema Skin:? coccyx? full-thickness and right buttock partial-thickness wound/stage II ulceration .? Neuro: nonfocal Psych: appropriate affect Objective Data Active Medications Acetaminophen (Acetaminophen 325 Mg Tablet) 650 mg PO Q6H PRN PRN Reason: Pain, Mild (Pain Scale 1-3) Last Admin: 10/22/22 05:19 Dose: 650 mg Documented By: SHIRLEY Albuterol Sulfate (Albuterol Sulfate 90 Mcg 8 Gm Inhaler) 2 puff INHALE Q4H PRN PRN Reason: Shortness Of Breath Or Wheezing Albuterol/Ipratropium (Albuterol/Iprat 2.5/0.5mg 3 Ml Ampul.Neb) 3 ml INHALE RQ6H WHILE AWAKE PRN PRN Reason: Shortness of Breath/Wheezing Apixaban (Apixaban 2.5 Mg Tablet) 2.5 mg PO BID [facility] Last Admin: 10/31/22 08:00 Dose: 2.5 mg Documented By: SARITA Calcitriol (Calcitriol 0.25 Mcg Capsule) 0.5 mcg PO DAILY [facility] Last Admin: 10/31/22 08:00 Dose: 0.5 mcg Documented By: SARITA Clotrimazole (Clotrimazole 1 % Cream 15 Gm Tube) 1 appl TOPICAL BID [facility]; Protocol Last Admin: 10/31/22 08:06 Dose: 1 appl Documented By: SARITA Docusate Sodium (Docusate Sodium 100 Mg Capsule) 100 mg PO DAILY PRN PRN Reason: Constipation Doxazosin Mesylate (Doxazosin Mesylate 2 Mg Tablet) 4 mg PO BEDTIME [facility] Last Admin: 10/30/22 20:01 Dose: 4 mg Documented By: INGRID Ferrous Sulfate (Ferrous Sulfate 324 Mg Tablet.) 324 mg PO DAILY [facility] Last Admin: 10/31/22 08:00 Dose: 324 mg Documented By: SARITA Fidaxomicin (Fidaxomicin 200 Mg Tablet) 200 mg PO BID [facility] Stop: 11/02/22 20:59 Last Admin: 10/31/22 08:00 Dose: 200 mg Documented By: SARITA Isosorbide Mononitrate (Isosorbide Mononitrate 30 Mg Tab.Er.24h) 30 mg PO DAILY [facility]; Protocol Last Admin: 10/14/22 09:29 Dose: 30 mg Documented By: HALIE Lactic Acid (Ammonium Lactate 12 % Cream 140 Gm Tube) 1 appl TOPICAL BID PRN; Protocol PRN Reason: Dry Skin Last Admin: 10/29/22 08:05 Dose: 1 appl Metoprolol Tartrate (Metoprolol Tartrate 12.5 Mg Halftab) 12.5 mg PO BID [facility]; Protocol Last Admin: 10/31/22 08:01 Dose: 12.5 mg Documented By: SARITA Nystatin (Nystatin Powder 15 Gm Bottle) 1 appl TOPICAL BID [facility]; Protocol Last Admin: 10/31/22 08:06 Dose: 1 appl Documented By: SARITA Ondansetron HCl (Ondansetron Hcl 4 Mg/2 Ml Vial) 4 mg IVPUSH Q8H PRN PRN Reason: Nausea and Vomiting Pharmacy Consult (Consult Rx Perform Med Rec) 1 each MISCELLANE ONCE PRN PRN Reason: Consult order Polyethylene Glycol (Polyethylene Glycol 3350 17 Gm Powd.Pack) 17 gm PO DAILY PRN PRN Reason: Constipation Pravastatin Sodium (Pravastatin Sodium 20 Mg Tablet) 20 mg PO BEDTIME [facility] Last Admin: 10/30/22 20:00 Dose: 20 mg Documented By: INGRID Rifaximin (Rifaximin 550 Mg Tablet) 550 mg PO BID [facility] Last Admin: 10/31/22 08:00 Dose: 550 mg Documented By: SARITA Salmeterol Xinafoate (Salmeterol Xinafoate 50 Mcg Blst.W.Dev) 1 puff INHALE RBID [facility] Last Admin: 10/31/22 07:31 Dose: 1 puff Documented By: AL Sodium Bicarbonate (Sodium Bicarbonate 650 Mg Tablet) 650 mg PO QID PRN PRN Reason: Gastric Reflux Sodium Chloride (0.9 % Sodium Chloride Flush 3 Ml Syringe) 3 ml IVFLUSH QSHIFT [facility] Last Admin: 10/31/22 08:01 Dose: 3 ml Documented By: SARITA Tiotropium [place] (Tiotropium [place] 18 Mcg Cap.W.Dev) 1 puff INHALE RDAILY [facility] Last Admin: 10/31/22 07:31 Dose: 1 puff Documented By: AL Vancomycin HCl (Vancomycin Hcl Oral Solution 125 Mg/5 Ml Soln.Recon) 125 mg PO Q6H [facility] Stop: 11/01/22 19:59 Last Admin: 10/31/22 08:00 Dose: 125 mg Documented By: SARITA Labs 10/27/22 05:11 10/29/22 06:04 Labs: Laboratory Results - last 24 hr 10/31/22 07:35 POC Glucose 72 Assessment and Plan (1) Clostridioides difficile diarrhea: Status: Acute (2) Acute on chronic diastolic CHF (congestive heart failure), NYHA class 3: Status: Acute (3) Paroxysmal A-fib: Status: Acute (4) Decompensated heart failure: Status: Acute Plan 67 year old with CKD4, DM2, COPD, HTN, HLD, ZEYAD, AF on apixaban presenting with exertional dyspnea x 1 wk, admitted for CHF exacerbation hospitalization complicated by hepatic encephalopathy, CARY, and Cdiff infection. Cdiff infection no further diarrhea,rectal tube is out, on vanco and deficid for total 10 days ending 11/02/22 vtach. Resolved had 13 beat episode 10/24, stable magnesium and potassium continue low dose BB, 12.5 mg b.i.d. tele monitoring cirrhosis with ascites underwent diagnostic tap, no SBP, ascites most likely from severe pulmonary hypertension, tricuspid regurgitation /heart failure. no recurrent abdominal distension. CARY/CKD4 concern for cardiorenal and hepatorenal syndrome Permacath placed 10/17/22 nephrology following , continue hemodialysis on Thursday and Saturdays for fluid management acute HFpEF last TTE 09/25/22 with LVEF 55%, mod diastolic dysfunction, pulmonary HTN not on diuretics since receiving hemodialysis acute toxic metabolic encephalopathy resolved was likely multifactorial due to renal failure, cdif, and hepatic encephalopathy started on lactulose/rifaximin for hepatic encephalopathy , since encephalopathy resolved , lactulose discontinued due to persistent diarrhea hypokalemia resolved repeat potassium 3.6 paroxysmal AF s/p PPM placement 09/27 ,continue AC with apixaban DM2 stable blood sugars, DC insulin sliding scale and point of care blood sugar monitoring, ada diet full-thickness (stage 3/4) coccyx ulcers, and right buttock stage II, frequent position change, air loss mattress, added protein supplements, seen by wound nurse patient placed on silver alginate and foam dressing HTN stable blood sugar continue metoprolol home dose 12.5 b.i.d. acute/chronic anemia s/p 2u pRBCs 10/14/22, likely due to CKD + cirrhosis H+H stable, continue Fe supplementation thrombocytopenia chronic and stable COPD not in acute exacerbation prn albuterol, controller inhalers [salmeterol, tiotropium] Obesity BMI 30.5 weight management VTE ppx: apixaban dispo: Plan for STR In my clinical judgment, the patient requires continued inpatient hospitalization for the following reasons: dialysis, electrolyte monitoring, telemetry monitoring and safe disposition to rehab Time Spent With Patient Time: Total time managing care of this patient today ____ minutes. Quality Stroke Does the patient have a stroke diagnosis?: No VTE Prior VTE?: No VTE Risk Level:: Medical - moderate - high VTE Device Contraindication: Treatment Not Indicated VTE Drug Contraindication: N/A - Med Ordered
--- NOTE | 2022-10-31 12:47 | P.PNNP_ITS ---
Subjective Subjective Date of Service: 10/31/22 Principal diagnosis: Decompensated heart failure Interval history: seen and examined no complaints at bedside Physical Exam Vital Signs: Vital Signs: Last Vital Signs Temp 97.2 F 10/31/22 11:39 Pulse 82 10/31/22 11:39 Resp 20 10/31/22 11:39 BP 112/58 L 10/31/22 11:39 Pulse Ox 99 10/31/22 11:39 O2 Del Method Room Air 10/31/22 11:39 BMI result Body Mass Index 30.5 Const: General: alert and awake HEENT: Head: Yes normocephalic and Yes atraumatic Neck: Neck: Yes supple Resp: Effort & Inspection: normal respiratory effort Cardio: Heart sounds: S1 normal heart sound present and S2 normal heart sound present GI: Palpation (GI): Soft to palpation and nontender Extrem: General: Yes pedal edema Objective Data Labs 10/27/22 05:11 10/29/22 06:04 Labs: Laboratory Results - last 24 hr 10/31/22 07:35 POC Glucose 72 Microbiology Microbiology Results: Microbiology 10/22/22 08:55 Blood - Venous Blood Culture - Final No growth after 5 days. 10/22/22 08:55 Blood - Venous Blood Culture - Final No growth after 5 days. 10/22/22 14:21 Ascites Fluid Gram Stain - Final 10/22/22 14:21 Ascites Fluid Anaerobic Culture - Final NO GROWTH AFTER 5 DAYS 10/22/22 14:21 Ascites Fluid Body Fluid Culture - Final No growth after 2 days 10/14/22 Unknown Urine clean catch - Urine keys top Urine Culture - Final Procedures Date of Service Date of Service: 10/31/22 Assessment & Plan Assessment and plan (1) CARY (acute kidney injury): Status: Acute (2) (HFpEF) heart failure with preserved ejection fraction: Status: Acute (3) CKD (chronic kidney disease) stage 4, GFR 15-29 ml/min: Status: Acute Plan CARY superimposed on advanced CKD now ESRD s/p placement of dialysis tunnelled catheter on 10/17 LVEF 55% with pulmonary HTN o/p HD arranged at [place] dialysis unit REC HD in am renal diet phosphate binders retacrit Time Spent With Patient Time: Total time managing care of this patient today ____ minutes. Progress Note: Quality Stroke Does the patient have a stroke diagnosis?: No
--- NOTE | 2022-10-31 14:21 | MHC.CM.PN ---
Pt medically cleared for D/C, awaiting STR bed placement. [facility] currently following. Suni ([phone]) from [facility] dialysis called and stated that they can't start the patient with them until this upcoming Thursday (11/04/22) and he will be on a //Thu schedule with a 6am chair time arriving at 5:45am. Suni states that the patient will have to stay at [facility] to receive dialysis through Thursday. Aye at [facility] aware of the anticipated dialysis schedule at [facility].
[2022-10-31] MEDS: Doxazosin Mesylate 2 MG TABLET 4 MG PO (22:15)
[2022-10-31] MEDS: Pravastatin Sodium 20 MG TABLET PO (22:19)
[2022-11-01] VITALS (7 sets, daily range): BP systolic 99–130; BP diastolic 56–66; PULSE 72–101; RESP 16–20; TEMP 36.2–37.2; O2SAT 96–99
[2022-11-01] MEDS: vancomycin HCL Oral Solution 125 MG/5 ML SOLN.RECON PO ×3 (02:11→13:41)
[2022-11-01] MEDS: Salmeterol Xinafoate 50 MCG BLST.W.DEV 1 PUFF INHALE ×2 (08:37→20:07)
[2022-11-01] MEDS: 0.9 % Sodium Chloride Flush 3 ML SYRINGE IVFLUSH (09:03)
[2022-11-01] MEDS: calcitrioL 0.25 MCG CAPSULE 0.5 MCG PO (09:03)
[2022-11-01] MEDS: Metoprolol Tartrate 12.5 MG HALFTAB PO ×2 (09:03→21:19)
[2022-11-01] MEDS: Fidaxomicin 200 MG TABLET PO ×2 (09:03→21:19)
[2022-11-01] MEDS: Apixaban 2.5 MG TABLET PO ×2 (09:04→21:19)
[2022-11-01] MEDS: Clotrimazole 1 % Cream 15 GM TUBE 1 APPL TOPICAL (09:04)
[2022-11-01] MEDS: Nystatin Powder 15 GM BOTTLE 1 APPL TOPICAL ×2 (09:04→21:21)
[2022-11-01] MEDS: Ferrous Sulfate 324 MG TABLET.DR PO (09:04)
--- NOTE | 2022-11-01 09:13 | P.PNNP_ITS ---
Subjective Subjective Date of Service: 11/01/22 Principal diagnosis: Decompensated heart failure Interval history: seen and examined no complaints had HD earlier Physical Exam Vital Signs: Vital Signs: Last Vital Signs Temp 98 F 11/01/22 07:45 Pulse 72 11/01/22 08:38 Resp 18 11/01/22 08:38 BP 99/58 L 11/01/22 07:45 Pulse Ox 96 11/01/22 07:45 O2 Del Method Room Air 11/01/22 07:45 BMI result Body Mass Index 30.5 Const: General: alert and awake HEENT: Head: Yes normocephalic and Yes atraumatic Neck: Neck: Yes supple Resp: Effort & Inspection: normal respiratory effort Cardio: Heart sounds: S1 normal heart sound present and S2 normal heart sound present GI: Palpation (GI): Soft to palpation and nontender Extrem: General: Yes pedal edema Objective Data Labs 10/27/22 05:11 10/29/22 06:04 Microbiology Microbiology Results: Microbiology 10/22/22 08:55 Blood - Venous Blood Culture - Final No growth after 5 days. 10/22/22 08:55 Blood - Venous Blood Culture - Final No growth after 5 days. 10/22/22 14:21 Ascites Fluid Gram Stain - Final 10/22/22 14:21 Ascites Fluid Anaerobic Culture - Final NO GROWTH AFTER 5 DAYS 10/22/22 14:21 Ascites Fluid Body Fluid Culture - Final No growth after 2 days 10/14/22 Unknown Urine clean catch - Urine keys top Urine Culture - Final Procedures Date of Service Date of Service: 11/01/22 Assessment & Plan Assessment and plan (1) CARY (acute kidney injury): Status: Acute (2) (HFpEF) heart failure with preserved ejection fraction: Status: Acute (3) CKD (chronic kidney disease) stage 4, GFR 15-29 ml/min: Status: Acute Plan CARY superimposed on advanced CKD now ESRD s/p placement of dialysis tunnelled catheter on 10/17 LVEF 55% with pulmonary HTN o/p HD arranged at [place] dialysis unit REC HD today with volume optimization renal diet phosphate binders retacrit Time Spent With Patient Time: Total time managing care of this patient today ____ minutes. Progress Note: Quality Stroke Does the patient have a stroke diagnosis?: No
[2022-11-01] MEDS: rifAXIMin 550 MG TABLET PO ×2 (09:14→21:19)
[2022-11-01 11:29] LABS: Glucose, Whole Blood 109 mg/dL (60-115)
--- NOTE | 2022-11-01 12:59 | P.PNIM_ITS ---
Subjective Subjective Date of Service: 11/01/22 Interval History: offers no acute complaints resting comfortably on chair, is at bedside, tolerating diet no nausea, no vomiting, no abdominal pain no diarrhea no fevers, no chills denies back discomfort, no acute events overnight. Review of Systems Review of Systems: Yes all other systems are reviewed and are negative Physical Exam 2 Vital Signs: Vital Signs: Last Vital Signs Temp 98.5 F 11/01/22 11:03 Pulse 101 H 11/01/22 11:03 Resp 18 11/01/22 11:03 BP 115/56 L 11/01/22 11:03 Pulse Ox 98 11/01/22 11:03 O2 Del Method Room Air 11/01/22 11:03 BMI result Body Mass Index 30.5 Const: Other: HEENT: sclera anicteric, moist mucus membranes Neck: supple right anterior chest wall hemodialysis catheter in place with mild surrounding bruise, pacemaker in place? left chest wall Lungs: clear to auscultation bilaterally Heart: regular rate and rhythm, no murmurs Abd: soft,? non tender, bowel sounds audible, no guarding, no rigidity Ext:? chronic discoloration, no edema Skin:? coccyx? full-thickness and right buttock partial-thickness wound/stage II ulceration .? Neuro: nonfocal Psych: appropriate affect Objective Data Active Medications Acetaminophen (Acetaminophen 325 Mg Tablet) 650 mg PO Q6H PRN PRN Reason: Pain, Mild (Pain Scale 1-3) Last Admin: 10/22/22 05:19 Dose: 650 mg Documented By: SHIRLEY Albuterol Sulfate (Albuterol Sulfate 90 Mcg 8 Gm Inhaler) 2 puff INHALE Q4H PRN PRN Reason: Shortness Of Breath Or Wheezing Albuterol/Ipratropium (Albuterol/Iprat 2.5/0.5mg 3 Ml Ampul.Neb) 3 ml INHALE RQ6H WHILE AWAKE PRN PRN Reason: Shortness of Breath/Wheezing Apixaban (Apixaban 2.5 Mg Tablet) 2.5 mg PO BID [facility] Last Admin: 11/01/22 09:04 Dose: 2.5 mg Documented By: BRADLY Calcitriol (Calcitriol 0.25 Mcg Capsule) 0.5 mcg PO DAILY [facility] Last Admin: 11/01/22 09:03 Dose: 0.5 mcg Documented By: BRADLY Clotrimazole (Clotrimazole 1 % Cream 15 Gm Tube) 1 appl TOPICAL BID [facility]; Protocol Last Admin: 11/01/22 09:04 Dose: 1 appl Documented By: BRADLY Docusate Sodium (Docusate Sodium 100 Mg Capsule) 100 mg PO DAILY PRN PRN Reason: Constipation Doxazosin Mesylate (Doxazosin Mesylate 2 Mg Tablet) 4 mg PO BEDTIME [facility] Last Admin: 10/31/22 22:15 Dose: 4 mg Documented By: JOCE Ferrous Sulfate (Ferrous Sulfate 324 Mg Tablet.Dr) 324 mg PO DAILY [facility] Last Admin: 11/01/22 09:04 Dose: 324 mg Documented By: BRADLY Fidaxomicin (Fidaxomicin 200 Mg Tablet) 200 mg PO BID [facility] Stop: 11/02/22 20:59 Last Admin: 11/01/22 09:03 Dose: 200 mg Documented By: BRADLY Isosorbide Mononitrate (Isosorbide Mononitrate 30 Mg Tab.Er.24h) 30 mg PO DAILY [facility]; Protocol Last Admin: 10/14/22 09:29 Dose: 30 mg Documented By: HALIE Lactic Acid (Ammonium Lactate 12 % Cream 140 Gm Tube) 1 appl TOPICAL BID PRN; Protocol PRN Reason: Dry Skin Last Admin: 10/29/22 08:05 Dose: 1 appl Metoprolol Tartrate (Metoprolol Tartrate 12.5 Mg Halftab) 12.5 mg PO BID [facility]; Protocol Last Admin: 11/01/22 09:03 Dose: 12.5 mg Documented By: BRADLY Nystatin (Nystatin Powder 15 Gm Bottle) 1 appl TOPICAL BID [facility]; Protocol Last Admin: 11/01/22 09:04 Dose: 1 appl Documented By: BRADLY Ondansetron HCl (Ondansetron Hcl 4 Mg/2 Ml Vial) 4 mg IVPUSH Q8H PRN PRN Reason: Nausea and Vomiting Pharmacy Consult (Consult Rx Perform Med Rec) 1 each MISCELLANE ONCE PRN PRN Reason: Consult order Polyethylene Glycol (Polyethylene Glycol 3350 17 Gm Powd.Pack) 17 gm PO DAILY PRN PRN Reason: Constipation Pravastatin Sodium (Pravastatin Sodium 20 Mg Tablet) 20 mg PO BEDTIME [facility] Last Admin: 10/31/22 22:19 Dose: 20 mg Documented By: JOCE Rifaximin (Rifaximin 550 Mg Tablet) 550 mg PO BID [facility] Last Admin: 11/01/22 09:14 Dose: 550 mg Documented By: BRADLY Salmeterol Xinafoate (Salmeterol Xinafoate 50 Mcg Blst.W.Dev) 1 puff INHALE RBID [facility] Last Admin: 11/01/22 08:37 Dose: 1 puff Documented By: PAT Sodium Bicarbonate (Sodium Bicarbonate 650 Mg Tablet) 650 mg PO QID PRN PRN Reason: Gastric Reflux Sodium Chloride (0.9 % Sodium Chloride Flush 3 Ml Syringe) 3 ml IVFLUSH QSHIFT [facility] Last Admin: 11/01/22 09:03 Dose: 3 ml Documented By: BRADLY Tiotropium [place] (Tiotropium [place] 18 Mcg Cap.W.Dev) 1 puff INHALE RDAILY [facility] Last Admin: 11/01/22 08:37 Dose: 1 puff Documented By: PAT Vancomycin HCl (Vancomycin Hcl Oral Solution 125 Mg/5 Ml Soln.Recon) 125 mg PO Q6H [facility] Stop: 11/01/22 19:59 Last Admin: 11/01/22 09:03 Dose: 125 mg Documented By: BRADLY Labs 10/27/22 05:11 10/29/22 06:04 Labs: Laboratory Results - last 24 hr 11/01/22 11:05 POC Glucose 109 Assessment and Plan (1) Clostridioides difficile diarrhea: Status: Acute (2) Acute on chronic diastolic CHF (congestive heart failure), NYHA class 3: Status: Acute (3) Paroxysmal A-fib: Status: Acute (4) Decompensated heart failure: Status: Acute Plan 67 year old with CKD4, DM2, COPD, HTN, HLD, ZEYAD, AF on apixaban presenting with exertional dyspnea x 1 wk, admitted for CHF exacerbation hospitalization complicated by hepatic encephalopathy, CARY, and Cdiff infection. Cdiff infection no further diarrhea,rectal tube is out, on vanco and deficid for total 10 days ending 11/02/22 vtach. Resolved had 13 beat episode 10/24, stable magnesium and potassium continue low dose BB, 12.5 mg b.i.d. tele monitoring showed no recurrent episodes cirrhosis with ascites underwent diagnostic tap, no SBP, ascites most likely from severe pulmonary hypertension, tricuspid regurgitation /heart failure. no recurrent abdominal distension. CARY/CKD4 now ESRD concern for cardiorenal and hepatorenal syndrome Permacath placed 10/17/22 nephrology following , continue hemodialysis on Thursday and Saturdays for fluid management, continue renal diet, phosphate binders acute HFpEF last TTE 09/25/22 with LVEF 55%, mod diastolic dysfunction, pulmonary HTN not on diuretics since receiving hemodialysis acute toxic metabolic encephalopathy resolved was likely multifactorial due to renal failure, cdif, and hepatic encephalopathy started on lactulose/rifaximin for hepatic encephalopathy , since encephalopathy resolved , lactulose discontinued due to persistent diarrhea hypokalemia resolved repeat potassium 3.6 paroxysmal AF s/p PPM placement 09/27 ,continue AC with apixaban DM2 stable blood sugars, cont. ada diet no insulin sliding scale and point of care blood sugar monitoring. full-thickness (stage 3/4) coccyx ulcers, and right buttock stage II, frequent position change, air loss mattress, added protein supplements, seen by wound nurse patient placed on silver alginate and foam dressing HTN stable blood sugar continue metoprolol home dose 12.5 b.i.d. acute/chronic anemia s/p 2u pRBCs 10/14/22, likely due to CKD + cirrhosis H+H stable, continue Fe supplementation thrombocytopenia chronic and stable COPD not in acute exacerbation prn albuterol, controller inhalers [salmeterol, tiotropium] Obesity BMI 30.5 weight management VTE ppx: apixaban dispo: Plan for STR In my clinical judgment, the patient requires continued inpatient hospitalization for the following reasons: dialysis, electrolyte monitoring, telemetry monitoring and safe disposition to rehab. Time Spent With Patient Time: Total time managing care of this patient today ____ minutes. Quality Stroke Does the patient have a stroke diagnosis?: No VTE Prior VTE?: No VTE Risk Level:: Medical - moderate - high VTE Device Contraindication: Treatment Not Indicated VTE Drug Contraindication: N/A - Med Ordered
[2022-11-01 16:11] LABS: Glucose, Whole Blood 105 mg/dL (60-115)
[2022-11-01] MEDS: Doxazosin Mesylate 2 MG TABLET 4 MG PO (21:19)
[2022-11-01] MEDS: Pravastatin Sodium 20 MG TABLET PO (21:19)
[2022-11-01] MEDS: Ammonium Lactate 12 % Cream 140 GM TUBE 1 APPL TOPICAL (21:21)
[2022-11-02] VITALS (8 sets, daily range): BP systolic 100–134; BP diastolic 57–72; PULSE 71–90; RESP 18–20; TEMP 36.2–37.1; O2SAT 96–100
--- NOTE | 2022-11-02 06:54 | P.PNNP_ITS ---
Subjective Subjective Date of Service: 11/02/22 Principal diagnosis: Decompensated heart failure Interval history: seen and examined no complaints had HD yesterday Physical Exam Vital Signs: Vital Signs: Last Vital Signs Temp 98.0 F 11/02/22 03:48 Pulse 90 11/02/22 03:48 Resp 18 11/02/22 03:48 BP 100/57 L 11/02/22 03:48 Pulse Ox 99 11/02/22 03:48 O2 Del Method Room Air 11/02/22 03:48 BMI result Body Mass Index 30.5 Const: General: alert and awake HEENT: Head: Yes normocephalic and Yes atraumatic Neck: Neck: Yes supple Resp: Effort & Inspection: normal respiratory effort Cardio: Heart sounds: S1 normal heart sound present and S2 normal heart sound present GI: Palpation (GI): Soft to palpation and nontender Extrem: General: Yes pedal edema Objective Data Labs 10/27/22 05:11 10/29/22 06:04 Labs: Laboratory Results - last 24 hr 11/01/22 11/01/22 11:05 16:08 POC Glucose 109 105 Microbiology Microbiology Results: Microbiology 10/22/22 08:55 Blood - Venous Blood Culture - Final No growth after 5 days. 10/22/22 08:55 Blood - Venous Blood Culture - Final No growth after 5 days. 10/22/22 14:21 Ascites Fluid Gram Stain - Final 10/22/22 14:21 Ascites Fluid Anaerobic Culture - Final NO GROWTH AFTER 5 DAYS 10/22/22 14:21 Ascites Fluid Body Fluid Culture - Final No growth after 2 days 10/14/22 Unknown Urine clean catch - Urine keys top Urine Culture - Final Procedures Date of Service Date of Service: 11/02/22 Assessment & Plan Assessment and plan (1) CARY (acute kidney injury): Status: Acute (2) (HFpEF) heart failure with preserved ejection fraction: Status: Acute (3) CKD (chronic kidney disease) stage 4, GFR 15-29 ml/min: Status: Acute Plan CARY superimposed on advanced CKD now ESRD s/p placement of dialysis tunnelled catheter on 10/17 LVEF 55% with pulmonary HTN o/p HD arranged at [place] dialysis unit REC HD per schedule renal diet phosphate binders retacrit Time Spent With Patient Time: Total time managing care of this patient today ____ minutes. Progress Note: Quality Stroke Does the patient have a stroke diagnosis?: No
[2022-11-02] MEDS: Salmeterol Xinafoate 50 MCG BLST.W.DEV 1 PUFF INHALE ×2 (07:49→19:09)
[2022-11-02] MEDS: 0.9 % Sodium Chloride Flush 3 ML SYRINGE IVFLUSH (09:18)
[2022-11-02] MEDS: Nystatin Powder 15 GM BOTTLE 1 APPL TOPICAL ×2 (09:18→20:05)
[2022-11-02] MEDS: rifAXIMin 550 MG TABLET PO (09:18)
[2022-11-02] MEDS: calcitrioL 0.25 MCG CAPSULE 0.5 MCG PO (09:18)
[2022-11-02] MEDS: Ferrous Sulfate 324 MG TABLET.DR PO (09:18)
[2022-11-02] MEDS: Apixaban 2.5 MG TABLET PO ×2 (09:18→20:01)
[2022-11-02] MEDS: Metoprolol Tartrate 12.5 MG HALFTAB PO ×2 (09:18→20:01)
[2022-11-02] MEDS: Fidaxomicin 200 MG TABLET PO (09:18)
[2022-11-02] MEDS: Clotrimazole 1 % Cream 15 GM TUBE 1 APPL TOPICAL ×2 (09:19→20:02)
--- NOTE | 2022-11-02 09:52 | MHC.CM.PN ---
Per MD, Patient is medically cleared for dc. Replaced By [facility] is attempting to arrange for a O[facility] agreement with [facility]. CM will follow.
--- NOTE | 2022-11-02 12:16 | HO.PM.IMPN ---
Subjective Subjective Date of Service: 11/02/22 Interval History: Show sitting comfortably on bed offers no acute complaints tolerating diet, denies nausea, no vomiting, no abdominal pain, no urinary symptoms, no back pain, no fevers, no chills, no acute events overnight. Review of Systems Review of Systems: Yes all other systems are reviewed and are negative Physical Exam Vital Signs: Vital Signs: Last Vital Signs Temp 98.2 F 11/02/22 11:56 Pulse 75 11/02/22 11:56 Resp 20 11/02/22 11:56 BP 104/62 11/02/22 11:56 Pulse Ox 99 11/02/22 11:56 O2 Del Method Room Air 11/02/22 11:56 BMI result Body Mass Index 30.5 Const: Other: HEENT: sclera anic teric, moist mucus membranes Neck: s upple right anteri or chest wall hemo dialysis catheter in place, pacemake r in place? left c hest wall Lungs: c lear to auscultati on bilaterally Hea rt: regular rate a nd rhythm, no murm urs Abd: soft,? no n tender, bowel so unds audible, no g uarding, no rigidi ty Ext:? chronic d iscoloration, no e candice Skin:? coccyx ? full-thickness a nd right buttock p artial-thickness w ound/stage II ulce ration .? Neuro: n onfocal Psych: gilbert ropriate affect Objective Data Active Medications Acetaminophen (Acetaminophen 325 Mg Tablet) 650 mg PO Q6H PRN PRN Reason: Pain, Mild (Pain Scale 1-3) Last Admin: 10/22/22 05:19 Dose: 650 mg Documented By: SHIRLEY Albuterol Sulfate (Albuterol Sulfate 90 Mcg 8 Gm Inhaler) 2 puff INHALE Q4H PRN PRN Reason: Shortness Of Breath Or Wheezing Albuterol/Ipratropium (Albuterol/Iprat 2.5/0.5mg 3 Ml Ampul.Neb) 3 ml INHALE RQ6H WHILE AWAKE PRN PRN Reason: Shortness of Breath/Wheezing Apixaban (Apixaban 2.5 Mg Tablet) 2.5 mg PO BID [facility] Last Admin: 11/02/22 09:18 Dose: 2.5 mg Documented By: BRADLY Calcitriol (Calcitriol 0.25 Mcg Capsule) 0.5 mcg PO DAILY [facility] Last Admin: 11/02/22 09:18 Dose: 0.5 mcg Documented By: BRADLY Clotrimazole (Clotrimazole 1 % Cream 15 Gm Tube) 1 appl TOPICAL BID ROBERT; Protocol Last Admin: 11/02/22 09:19 Dose: 1 appl Documented By: BRADLY Docusate Sodium (Docusate Sodium 100 Mg Capsule) 100 mg PO DAILY PRN PRN Reason: Constipation Doxazosin Mesylate (Doxazosin Mesylate 2 Mg Tablet) 4 mg PO BEDTIME [facility] Last Admin: 11/01/22 21:19 Dose: 4 mg Documented By: JODIE Ferrous Sulfate (Ferrous Sulfate 324 Mg Tablet.Dr) 324 mg PO DAILY [facility] Last Admin: 11/02/22 09:18 Dose: 324 mg Documented By: BRADLY Fidaxomicin (Fidaxomicin 200 Mg Tablet) 200 mg PO BID [facility] Stop: 11/02/22 20:59 Last Admin: 11/02/22 09:18 Dose: 200 mg Documented By: BRADLY Isosorbide Mononitrate (Isosorbide Mononitrate 30 Mg Tab.Er.24h) 30 mg PO DAILY [facility]; Protocol Last Admin: 10/14/22 09:29 Dose: 30 mg Documented By: HALIE Lactic Acid (Ammonium Lactate 12 % Cream 140 Gm Tube) 1 appl TOPICAL BID PRN; Protocol PRN Reason: Dry Skin Last Admin: 11/01/22 21:21 Dose: 1 appl Documented By: JODIE Metoprolol Tartrate (Metoprolol Tartrate 12.5 Mg Halftab) 12.5 mg PO BID ROBERT; Protocol Last Admin: 11/02/22 09:18 Dose: 12.5 mg Documented By: BRADLY Nystatin (Nystatin Powder 15 Gm Bottle) 1 appl TOPICAL BID ROBERT; Protocol Last Admin: 11/02/22 09:18 Dose: 1 appl Documented By: BRADLY Ondansetron HCl (Ondansetron Hcl 4 Mg/2 Ml Vial) 4 mg IVPUSH Q8H PRN PRN Reason: Nausea and Vomiting Pharmacy Consult (Consult Rx Perform Med Rec) 1 each MISCELLANE ONCE PRN PRN Reason: Consult order Polyethylene Glycol (Polyethylene Glycol 3350 17 Gm Powd.Pack) 17 gm PO DAILY PRN PRN Reason: Constipation Pravastatin Sodium (Pravastatin Sodium 20 Mg Tablet) 20 mg PO BEDTIME [facility] Last Admin: 11/01/22 21:19 Dose: 20 mg Documented By: GRETCHEN-JOZEB Rifaximin (Rifaximin 550 Mg Tablet) 550 mg PO BID [facility] Last Admin: 11/02/22 09:18 Dose: 550 mg Documented By: BRADLY Salmeterol Xinafoate (Salmeterol Xinafoate 50 Mcg Blst.W.Dev) 1 puff INHALE RBID [facility] Last Admin: 11/02/22 07:49 Dose: 1 puff Documented By: PAT Sodium Bicarbonate (Sodium Bicarbonate 650 Mg Tablet) 650 mg PO QID PRN PRN Reason: Gastric Reflux Sodium Chloride (0.9 % Sodium Chloride Flush 3 Ml Syringe) 3 ml IVFLUSH QSHIFT [facility] Last Admin: 11/02/22 09:18 Dose: 3 ml Documented By: BRADLY Tiotropium [place] (Tiotropium [place] 18 Mcg Cap.W.Dev) 1 puff INHALE RDAILY [facility] Last Admin: 11/02/22 07:49 Dose: 1 puff Documented By: PAT Labs 10/27/22 05:11 10/29/22 06:04 Labs: Laboratory Results - last 24 hr 11/01/22 16:08 POC Glucose 105 Assessment and Plan (1) Clostridioides difficile diarrhea: Status: Acute (2) Acute on chronic diastolic CHF (congestive heart failure), NYHA class 3: Status: Acute (3) Paroxysmal A-fib: Status: Acute (4) Decompensated heart failure: Status: Acute Plan 67 year old with CKD4, DM2, COPD, HTN, HLD, ZEYAD, AF on apixaban presenting with exertional dyspnea x 1 wk, admitted for CHF exacerbation hospitalization complicated by hepatic encephalopathy, CARY, and Cdiff infection. Cdiff infection no further diarrhea,rectal tube is out, finished 10 day course of vanco and deficid. vtach. Resolved had 13 beat episode 10/24, stable magnesium and potassium continue low dose BB, 12.5 mg b.i.d. tele monitoring showed no recurrent episodes cirrhosis with ascites underwent diagnostic tap, no SBP, ascites most likely from severe pulmonary hypertension, tricuspid regurgitation /heart failure. no recurrent abdominal distension. CARY/CKD4 now ESRD concern for cardiorenal and hepatorenal syndrome Permacath placed 10/17/22 nephrology following , continue hemodialysis on Thursday and Saturdays for fluid management, continue renal diet, phosphate binders acute HFpEF last TTE 09/25/22 with LVEF 55%, mod diastolic dysfunction, pulmonary HTN not on diuretics since receiving hemodialysis acute toxic metabolic encephalopathy resolved was likely multifactorial due to renal failure, cdif, and hepatic encephalopathy started on lactulose/rifaximin for hepatic encephalopathy , since encephalopathy resolved , lactulose discontinued due to persistent diarrhea, will also DC rifaximin. hypokalemia resolved repeat potassium 3.6 paroxysmal AF s/p PPM placement 09/27 ,continue AC with apixaban DM2 stable blood sugars, cont. ada diet no insulin sliding scale and point of care blood sugar monitoring. full-thickness (stage 3/4) coccyx ulcers, and right buttock stage II, frequent position change, air loss mattress, added protein supplements, on silver alginate and foam dressing HTN stable blood pressure continue metoprolol home dose 12.5 b.i.d. acute/chronic anemia s/p 2u pRBCs 10/14/22, likely due to CKD + cirrhosis H+H stable, continue Fe supplementation thrombocytopenia chronic and stable COPD not in acute exacerbation prn albuterol, controller inhalers [salmeterol, tiotropium] Obesity BMI 30.5 weight management VTE ppx: apixaban dispo: Plan for STR In my clinical judgment, the patient requires continued inpatient hospitalization for the following reasons: dialysis, electrolyte monitoring, telemetry monitoring and safe disposition to rehab. Time Spent With Patient Time: Total time managing care of this patient today ____ minutes. Quality Stroke Does the patient have a stroke diagnosis?: No VTE Prior VTE?: No VTE Risk Level:: Medical - moderate - high VTE Device Contraindication: Treatment Not Indicated VTE Drug Contraindication: N/A - Med Ordered
[2022-11-02] MEDS: Pravastatin Sodium 20 MG TABLET PO (20:01)
[2022-11-02] MEDS: Doxazosin Mesylate 2 MG TABLET 4 MG PO (20:01)
[2022-11-02] MEDS: Ammonium Lactate 12 % Cream 140 GM TUBE 1 APPL TOPICAL (20:02)
[2022-11-03] VITALS (9 sets, daily range): BP systolic 110–132; BP diastolic 60–68; PULSE 72–80; RESP 18–20; TEMP 36.5–37; O2SAT 95–100
[2022-11-03] MEDS: 0.9 % Sodium Chloride Flush 3 ML SYRINGE IVFLUSH ×2 (00:30→21:54)
[2022-11-03 05:54] LABS: Hematocrit 27.5 % (42.0-52.0); Hemoglobin 8.9 g/dl (14.0-18.0); Mean Corpuscular HGB Conc 32.4 g/dl (31.0-36.0); Mean Corpuscular Hemoglobin 31.3 pg (27.0-33.0); Mean Corpuscular Volume 96.8 fL (80.0-98.0); Mean Platelet Volume 9.5 fL (9.4-12.4); Platelet Count 175 X10*3/uL (160-400); Red Blood Count 2.84 X10*6/uL (4.60-5.80); Red Cell Distribution Width 14.4 % (11.0-16.0); White Blood Count 4.8 X10*3/uL (4.8-10.8)
[2022-11-03 05:56] LABS: Anion Gap 16 (12-20); Blood Urea Nitrogen 66 mg/dL (9-16); Carbon Dioxide 26 mmol/L (22-29); Chloride 99 mmol/L (96-108); Creatinine Clr Calc Pharmacy 31.2; Estimated Glomerular Filt Rate 24; Glucose Random 79 mg/dL (60-115); Potassium 4.3 mmol/L (3.3-5.1); Sodium 137 mmol/L (135-145)
[2022-11-03] MEDS: Salmeterol Xinafoate 50 MCG BLST.W.DEV 1 PUFF INHALE ×2 (07:44→19:25)
[2022-11-03] MEDS: Metoprolol Tartrate 12.5 MG HALFTAB PO ×2 (08:44→21:54)
[2022-11-03] MEDS: Apixaban 2.5 MG TABLET PO ×2 (08:44→21:54)
[2022-11-03] MEDS: calcitrioL 0.25 MCG CAPSULE 0.5 MCG PO (08:44)
[2022-11-03] MEDS: Ferrous Sulfate 324 MG TABLET.DR PO (08:44)
--- NOTE | 2022-11-03 10:06 | PM.PNNEP ---
Subjective Subjective Date of Service: 11/03/22 Principal diagnosis: Decompensated heart failure Interval history: seen and examined no complaints d/w medical attending Physical Exam Vital Signs: Vital Signs: Last Vital Signs Temp 98.6 F 11/03/22 06:59 Pulse 72 11/03/22 07:45 Resp 18 11/03/22 07:45 BP 129/68 11/03/22 06:59 Pulse Ox 95 11/03/22 06:59 O2 Del Method Room Air 11/03/22 06:59 BMI result Body Mass Index 30.5 Const: General: alert and awake HEENT: Head: Yes normocephalic and Yes atraumatic Neck: Neck: Yes supple Resp: Effort & Inspection: normal respiratory effort Cardio: Heart sounds: S1 normal heart sound present and S2 normal heart sound present GI: Palpation (GI): Soft to palpation and nontender Extrem: General: Yes pedal edema Objective Data Labs 11/03/22 05:26 11/03/22 05:26 Labs: Laboratory Results - last 24 hr 11/03/22 11/03/22 05:26 05:26 WBC 4.8 RBC 2.84 L Hgb 8.9 L Hct 27.5 L MCV 96.8 MCH 31.3 MCHC 32.4 RDW 14.4 Plt Count 175 D MPV 9.5 Absolute Nucleated RBC 0.000 Nucleated RBC % (auto) 0.0 Sodium 137 Potassium 4.3 Chloride 99 Carbon Dioxide 26 Anion Gap 16 BUN 66 H Creatinine 2.68 H Estim Creat Clear Calc 31.2 Estimated GFR 24 Random Glucose 79 Calcium 9.0 Microbiology Microbiology Results: Microbiology 10/22/22 08:55 Blood - Venous Blood Culture - Final No growth after 5 days. 10/22/22 08:55 Blood - Venous Blood Culture - Final No growth after 5 days. 10/22/22 14:21 Ascites Fluid Gram Stain - Final 10/22/22 14:21 Ascites Fluid Anaerobic Culture - Final NO GROWTH AFTER 5 DAYS 10/22/22 14:21 Ascites Fluid Body Fluid Culture - Final No growth after 2 days 10/14/22 Unknown Urine clean catch - Urine keys top Urine Culture - Final Procedures Date of Service Date of Service: 11/03/22 Assessment & Plan Assessment and plan (1) CARY (acute kidney injury): Status: Acute (2) (HFpEF) heart failure with preserved ejection fraction: Status: Acute (3) CKD (chronic kidney disease) stage 4, GFR 15-29 ml/min: Status: Acute Plan CARY superimposed on advanced CKD now ESRD s/p placement of dialysis tunnelled catheter on 10/17 LVEF 55% with pulmonary HTN o/p HD arranged at [facility] REC HD tomorrow renal diet phosphate binders retacrit await placement Time Spent With Patient Time: Total time managing care of this patient today ____ minutes. Progress Note: Quality Stroke Does the patient have a stroke diagnosis?: No
--- NOTE | 2022-11-03 10:46 | MHC.CLN ---
F/U PO INTAKE LIMITED BUT 100% DIET RX: 2000DM, LOW PHOS, 2GM NA CHOPPED-APPROPRIATE PT RECEIVING ENSURE MAX BID PROVIDES 300KCALS, 60G PROTEIN TO PROMOTE WOUND HEALING MONITOR PO INTAKE AND SUPPLEMENT ACCEPTANCE
[2022-11-03] MEDS: Clotrimazole 1 % Cream 15 GM TUBE 1 APPL TOPICAL ×2 (11:11→21:55)
[2022-11-03] MEDS: Nystatin Powder 15 GM BOTTLE 1 APPL TOPICAL ×2 (11:12→21:55)
--- NOTE | 2022-11-03 11:19 | P.PNIM_ITS ---
Subjective Subjective Date of Service: 11/03/22 Interval History: Offers no acute complaints, denies fever, no chills, denies nausea, vomiting, abdominal pain, no recurrence of diarrhea, denies lower back discomfort, no urinary symptoms , no events overnight. Review of Systems Review of Systems: Yes all other systems are reviewed and are negative Physical Exam Vital Signs: Vital Signs: Last Vital Signs Temp 97.7 F 11/03/22 11:07 Pulse 76 11/03/22 11:07 Resp 20 11/03/22 11:07 BP 110/62 11/03/22 11:07 Pulse Ox 98 11/03/22 11:07 O2 Del Method Room Air 11/03/22 11:07 BMI result Body Mass Index 30.5 Const: Other: HEENT: sclera anicteric, moist mucus membranes Neck: supple right anterior chest wall hemodialysis catheter in place with mild surrounding bruise, pacemaker in place? left chest wall Lungs: clear to auscultation bilaterally Heart: regular rate and rhythm, no murmurs Abd: soft,? non tender, bowel sounds audible, no guarding, no rigidity Ext:? chronic discoloration, no edema Skin:? coccyx? foam dressing in place. Neuro: nonfocal Psych: appropriate affect Objective Data Active Medications Acetaminophen (Acetaminophen 325 Mg Tablet) 650 mg PO Q6H PRN PRN Reason: Pain, Mild (Pain Scale 1-3) Last Admin: 10/22/22 05:19 Dose: 650 mg Documented By: SHIRLEY Albuterol Sulfate (Albuterol Sulfate 90 Mcg 8 Gm Inhaler) 2 puff INHALE Q4H PRN PRN Reason: Shortness Of Breath Or Wheezing Albuterol/Ipratropium (Albuterol/Iprat 2.5/0.5mg 3 Ml Ampul.Neb) 3 ml INHALE RQ6H WHILE AWAKE PRN PRN Reason: Shortness of Breath/Wheezing Apixaban (Apixaban 2.5 Mg Tablet) 2.5 mg PO BID [facility] Last Admin: 11/03/22 08:44 Dose: 2.5 mg Documented By: LAVINIA Calcitriol (Calcitriol 0.25 Mcg Capsule) 0.5 mcg PO DAILY [facility] Last Admin: 11/03/22 08:44 Dose: 0.5 mcg Documented By: LAVINIA Clotrimazole (Clotrimazole 1 % Cream 15 Gm Tube) 1 appl TOPICAL BID [facility]; Protocol Last Admin: 11/03/22 11:11 Dose: 1 appl Documented By: LAVINIA Docusate Sodium (Docusate Sodium 100 Mg Capsule) 100 mg PO DAILY PRN PRN Reason: Constipation Doxazosin Mesylate (Doxazosin Mesylate 2 Mg Tablet) 4 mg PO BEDTIME [facility] Last Admin: 11/02/22 20:01 Dose: 4 mg Documented By: PILAR Ferrous Sulfate (Ferrous Sulfate 324 Mg Tablet.Dr) 324 mg PO DAILY [facility] Last Admin: 11/03/22 08:44 Dose: 324 mg Documented By: LAVINIA Isosorbide Mononitrate (Isosorbide Mononitrate 30 Mg Tab.Er.24h) 30 mg PO DAILY [facility]; Protocol Last Admin: 10/14/22 09:29 Dose: 30 mg Documented By: HALIE Lactic Acid (Ammonium Lactate 12 % Cream 140 Gm Tube) 1 appl TOPICAL BID PRN; Protocol PRN Reason: Dry Skin Last Admin: 11/02/22 20:02 Dose: 1 appl Documented By: PILAR Metoprolol Tartrate (Metoprolol Tartrate 12.5 Mg Halftab) 12.5 mg PO BID [facility]; Protocol Last Admin: 11/03/22 08:44 Dose: 12.5 mg Documented By: LAVINIA Nystatin (Nystatin Powder 15 Gm Bottle) 1 appl TOPICAL BID [facility]; Protocol Last Admin: 11/03/22 11:12 Dose: 1 appl Documented By: LAVINIA Ondansetron HCl (Ondansetron Hcl 4 Mg/2 Ml Vial) 4 mg IVPUSH Q8H PRN PRN Reason: Nausea and Vomiting Pharmacy Consult (Consult Rx Perform Med Rec) 1 each MISCELLANE ONCE PRN PRN Reason: Consult order Polyethylene Glycol (Polyethylene Glycol 3350 17 Gm Powd.Pack) 17 gm PO DAILY PRN PRN Reason: Constipation Pravastatin Sodium (Pravastatin Sodium 20 Mg Tablet) 20 mg PO BEDTIME [facility] Last Admin: 11/02/22 20:01 Dose: 20 mg Documented By: PILAR Salmeterol Xinafoate (Salmeterol Xinafoate 50 Mcg Blst.W.Dev) 1 puff INHALE RBID [facility] Last Admin: 11/03/22 07:44 Dose: 1 puff Documented By: PAT Sodium Bicarbonate (Sodium Bicarbonate 650 Mg Tablet) 650 mg PO QID PRN PRN Reason: Gastric Reflux Sodium Chloride (0.9 % Sodium Chloride Flush 3 Ml Syringe) 3 ml IVFLUSH QSHIFT [facility] Last Admin: 11/03/22 08:39 Dose: Not Given Documented By: LAVINIA Non-Admin Reason: IV Running Tiotropium Walker (Tiotropium Walker 18 Mcg Cap.W.Dev) 1 puff INHALE RDAILY [facility] Last Admin: 11/03/22 07:44 Dose: 1 puff Documented By: PAT Labs 11/03/22 05:26 11/03/22 05:26 Labs: Laboratory Results - last 24 hr 11/03/22 11/03/22 05:26 05:26 MCV 96.8 MCH 31.3 MCHC 32.4 RDW 14.4 Plt Count 175 D MPV 9.5 Absolute Nucleated RBC 0.000 Nucleated RBC % (auto) 0.0 Anion Gap 16 Estim Creat Clear Calc 31.2 Estimated GFR 24 Random Glucose 79 Calcium 9.0 Assessment and Plan (1) Clostridioides difficile diarrhea: Status: Acute (2) Acute on chronic diastolic CHF (congestive heart failure), NYHA class 3: Status: Acute (3) Paroxysmal A-fib: Status: Acute (4) Decompensated heart failure: Status: Acute Plan 67 year old with CKD4, DM2, COPD, HTN, HLD, ZEYAD, AF on apixaban presenting with exertional dyspnea x 1 wk, admitted for CHF exacerbation hospitalization complicated by hepatic encephalopathy, CARY, and Cdiff infection. Cdiff infection no further diarrhea,rectal tube is out, finished 10 day course of vanco and deficid. vtach. Resolved had 13 beat episode 10/24, stable magnesium and potassium continue low dose BB, 12.5 mg b.i.d. tele monitoring showed no recurrent episodes cirrhosis with ascites underwent diagnostic tap, no SBP, ascites most likely from severe pulmonary hypertension, tricuspid regurgitation /heart failure. no recurrent abdominal distension. CARY/CKD4 now ESRD concern for cardiorenal and hepatorenal syndrome Permacath placed 10/17/22 nephrology following , continue hemodialysis on Thursday and Saturdays for fluid management, continue renal diet, phosphate binders acute HFpEF last TTE 09/25/22 with LVEF 55%, mod diastolic dysfunction, pulmonary HTN not on diuretics since receiving hemodialysis, will DC cardiac monitoring acute toxic metabolic encephalopathy resolved was likely multifactorial due to renal failure, and cdif, less likely hepatic encephalopathy with no underlying history of liver disease started on lactulose/rifaximin for concern for hepatic encephalopathy , since encephalopathy resolved , with no underlying history of liver disease lactulose and rifaximin discontinued hypokalemia resolved repeat potassium 3.6 paroxysmal AF s/p PPM placement 09/27 ,continue AC with apixaban DM2 stable blood sugars, cont. ada diet, no insulin sliding scale and point of care blood sugar monitoring. full-thickness (stage 3/4) coccyx ulcers, and right buttock stage II, frequent position change, air loss mattress, added protein supplements, silver alginate and foam dressing HTN stable blood pressure continue metoprolol home dose 12.5 b.i.d. acute/chronic anemia s/p 2u pRBCs 10/14/22, likely due to CKD + cirrhosis. H+H stable, continue Fe supplementation. thrombocytopenia chronic and stable. COPD not in acute exacerbation prn albuterol, controller inhalers [salmeterol, tiotropium]. Obesity BMI 30.5 weight management. VTE ppx: apixaban dispo: Plan for STR In my clinical judgment, the patient requires continued inpatient hospitalization for the following reasons: dialysis, electrolyte monitoring,and safe disposition to rehab. Time Spent With Patient Time: Total time managing care of this patient today ____ minutes. Quality Stroke Does the patient have a stroke diagnosis?: No VTE Prior VTE?: No VTE Risk Level:: Medical - moderate - high VTE Device Contraindication: Treatment Not Indicated VTE Drug Contraindication: N/A - Med Ordered
--- NOTE | 2022-11-03 15:20 | MHC.SL.SWA ---
Speech Pathologist Impression: Mild oral phase dysphagia Risk of Aspiration Due to: Medically Fragile Dysphasia Diet Status: No change Liquid Consistency and Strategies for Safe Swallow: Liquid Intake Recommendation: Thin Liquid Intake Strategies: Small Sips Solid Food Consistency: Dietary Recommendations: Chopped/Advanced (NDD3) Oral Medication Intake: Whole with Liquid Please contact the pharmacy regarding appropriate crushable or liquid drug formulations that are available whenever modified delivery is recommended. Compensatory Strategies and Precautions to be Taken for Safe Swallow: Sitting Upright (90 deg) Double Swallow Small Bites and Sips Alternate Liquids/Solids Rate of Ingestion Change Avoid Specific Foods Supervision While Eating and Drinking for Safe Swallow: Intermittent Supervision Foods to Avoid: Mixed consistencies (soups, cereals), difficult to chew solids. Swallowing Recommended Treatments: Compens. Strategy Educat. Recommendation for Speech: Inpatient Speech Therapy Per conversation with RN, recommend pt continue with CHOPPED/ADVANCED solids and THIN liquids (Straws OK). Pills whole w/ liquid or puree (one at a time), depending on pt preference. Pt may require some assistance with tray set up. Recommend intermittent supervision during meals. HEAD WELL PULLER will continue to follow for toleration of diet, re-assessment of swallow as needed. Toe Sewer Clinican/Clinical Fellow: No Supervisory Statement: I have reviewed and agree with the student/clinical fellow's documentation: N/A Speech Language Pathologist: Neena Arrington M.A., HEAD WELL PULLER
[2022-11-03] MEDS: Doxazosin Mesylate 2 MG TABLET 4 MG PO (21:54)
[2022-11-03] MEDS: Pravastatin Sodium 20 MG TABLET PO (21:54)
[2022-11-04 04:00] VITALS: BP 131/69; PULSE 75; RESP 16; TEMP 37.2; O2SAT 99
[2022-11-04 07:00] VITALS: BP 139/80; PULSE 74; RESP 20; TEMP 37.2; O2SAT 96
--- NOTE | 2022-11-04 07:09 | P.PNNP_ITS ---
Subjective Subjective Date of Service: 11/04/22 Principal diagnosis: Decompensated heart failure Interval history: seen and examined no complaints Physical Exam Vital Signs: Vital Signs: Last Vital Signs Temp 98.9 F 11/04/22 07:00 Pulse 74 11/04/22 07:00 Resp 20 11/04/22 07:00 BP 139/80 11/04/22 07:00 Pulse Ox 96 11/04/22 07:00 O2 Del Method Room Air 11/04/22 07:00 BMI result Body Mass Index 30.5 Const: General: alert and awake HEENT: Head: Yes normocephalic and Yes atraumatic Neck: Neck: Yes supple Resp: Effort & Inspection: normal respiratory effort Cardio: Heart sounds: S1 normal heart sound present and S2 normal heart sound present GI: Palpation (GI): Soft to palpation and nontender Extrem: General: Yes pedal edema Objective Data Labs 11/03/22 05:26 11/03/22 05:26 Microbiology Microbiology Results: Microbiology 10/22/22 08:55 Blood - Venous Blood Culture - Final No growth after 5 days. 10/22/22 08:55 Blood - Venous Blood Culture - Final No growth after 5 days. 10/22/22 14:21 Ascites Fluid Gram Stain - Final 10/22/22 14:21 Ascites Fluid Anaerobic Culture - Final NO GROWTH AFTER 5 DAYS 10/22/22 14:21 Ascites Fluid Body Fluid Culture - Final No growth after 2 days 10/14/22 Unknown Urine clean catch - Urine keys top Urine Culture - Final Procedures Date of Service Date of Service: 11/04/22 Assessment & Plan Assessment and plan (1) CARY (acute kidney injury): Status: Acute (2) (HFpEF) heart failure with preserved ejection fraction: Status: Acute (3) CKD (chronic kidney disease) stage 4, GFR 15-29 ml/min: Status: Acute Plan CARY superimposed on advanced CKD now ESRD s/p placement of dialysis tunnelled catheter on 10/17 LVEF 55% with pulmonary HTN o/p HD arranged at [place] dialysis unit REC HD today optimize volume status ? HD twice a week (will depends on residual [place] kidney function) renal diet phosphate binders retacrit await placement Time Spent With Patient Time: Total time managing care of this patient today ____ minutes. Progress Note: Quality Stroke Does the patient have a stroke diagnosis?: No
[2022-11-04] MEDS: Salmeterol Xinafoate 50 MCG BLST.W.DEV 1 PUFF INHALE ×2 (07:32→19:32)
[2022-11-04 07:35] VITALS: PULSE 74; RESP 20; O2SAT 96
[2022-11-04] MEDS: 0.9 % Sodium Chloride Flush 3 ML SYRINGE IVFLUSH (07:58)
[2022-11-04] MEDS: calcitrioL 0.25 MCG CAPSULE 0.5 MCG PO (07:58)
[2022-11-04] MEDS: Apixaban 2.5 MG TABLET PO ×2 (07:58→20:33)
[2022-11-04] MEDS: Ferrous Sulfate 324 MG TABLET.DR PO (07:58)
[2022-11-04] MEDS: Metoprolol Tartrate 12.5 MG HALFTAB PO ×2 (07:58→20:33)
[2022-11-04] MEDS: Ammonium Lactate 12 % Cream 140 GM TUBE 1 APPL TOPICAL ×2 (07:59→20:35)
[2022-11-04] MEDS: Nystatin Powder 15 GM BOTTLE 1 APPL TOPICAL ×2 (07:59→20:35)
[2022-11-04] MEDS: Clotrimazole 1 % Cream 15 GM TUBE 1 APPL TOPICAL ×2 (07:59→20:35)
--- NOTE | 2022-11-04 09:48 | MHC.CM.PN ---
CM has assisted Patient with the completion of a HCP; Patient has named his /Kimi as his Agent.
--- NOTE | 2022-11-04 10:53 | MHC.CM.PN ---
[facility] SNF is unable to obtain an O[facility] agreement with [facility] . 29 SNF referrals have been made and thus far, [facility] is the only SNF considering accepting Patient (many are out of network with Patient's insurance and Patient does not have a payer to cover transportation to HD/ was willing to try transporting Patient but Patient is requiring a 2 assist transport). CM has met with Patient today at bedside/in HD and spoke with /HCP/Kimi at listed #; Kimi is willing to discuss a pinion-pins gilbert with [facility] to secure a payer for HD transport. A referral has been sent to [facility]. Referrals have also been sent to the 3 area [facility]. CM will follow.
--- NOTE | 2022-11-04 11:07 | MHC.SPEECHCO ---
Pt off the floor this morning. Per RN he has been stable with his diet recommendations. No further RUSSIAN TEACHER intervention indicated at this time. Please re-refer if status changes.
--- NOTE | 2022-11-04 11:33 | HO.PM.IMPN ---
Subjective Subjective Date of Service: 11/04/22 Interval History: Sitting comfortably offers no acute complaints scheduled for hemodialysis today, tolerating diet with no nausea, no vomiting, no abdominal pain, no other acute events overnight, no symptoms of shortness of breath, no chest pain or palpitation tolerating all medications. Review of Systems Review of Systems: Yes all other systems are reviewed and are negative Physical Exam Vital Signs: Vital Signs: Last Vital Signs Temp 98.9 F 11/04/22 07:00 Pulse 74 11/04/22 07:35 Resp 20 11/04/22 07:35 BP 139/80 11/04/22 07:00 Pulse Ox 96 11/04/22 07:00 O2 Del Method Room Air 11/04/22 07:00 BMI result Body Mass Index 30.5 Const: Other: HEENT: sclera anicteric, moist mucus membranes Neck: supple right anterior chest wall hemodialysis catheter in place with mild surrounding bruise, pacemaker in place? left chest wall Lungs: clear to auscultation bilaterally Heart: regular rate and rhythm, no murmurs Abd: soft,? non tender, bowel sounds audible, no guarding, no rigidity Ext:? chronic discoloration, no edema Skin:? coccyx? foam dressing in place. Neuro: nonfocal Psych: appropriate affect Objective Data Active Medications Acetaminophen (Acetaminophen 325 Mg Tablet) 650 mg PO Q6H PRN PRN Reason: Pain, Mild (Pain Scale 1-3) Last Admin: 10/22/22 05:19 Dose: 650 mg Documented By: SHIRLEY Albuterol Sulfate (Albuterol Sulfate 90 Mcg 8 Gm Inhaler) 2 puff INHALE Q4H PRN PRN Reason: Shortness Of Breath Or Wheezing Albuterol/Ipratropium (Albuterol/Iprat 2.5/0.5mg 3 Ml Ampul.Neb) 3 ml INHALE RQ6H WHILE AWAKE PRN PRN Reason: Shortness of Breath/Wheezing Apixaban (Apixaban 2.5 Mg Tablet) 2.5 mg PO BID [facility] Last Admin: 11/04/22 07:58 Dose: 2.5 mg Documented By: IKE Calcitriol (Calcitriol 0.25 Mcg Capsule) 0.5 mcg PO DAILY [facility] Last Admin: 11/04/22 07:58 Dose: 0.5 mcg Documented By: IKE Clotrimazole (Clotrimazole 1 % Cream 15 Gm Tube) 1 appl TOPICAL BID [facility]; Protocol Last Admin: 11/04/22 07:59 Dose: 1 appl Documented By: IKE Docusate Sodium (Docusate Sodium 100 Mg Capsule) 100 mg PO DAILY PRN PRN Reason: Constipation Doxazosin Mesylate (Doxazosin Mesylate 2 Mg Tablet) 4 mg PO BEDTIME [facility] Last Admin: 11/03/22 21:54 Dose: 4 mg Documented By: LONA Ferrous Sulfate (Ferrous Sulfate 324 Mg Tablet.Dr) 324 mg PO DAILY [facility] Last Admin: 11/04/22 07:58 Dose: 324 mg Documented By: IKE Isosorbide Mononitrate (Isosorbide Mononitrate 30 Mg Tab.Er.24h) 30 mg PO DAILY [facility]; Protocol Last Admin: 10/14/22 09:29 Dose: 30 mg Documented By: HALIE Lactic Acid (Ammonium Lactate 12 % Cream 140 Gm Tube) 1 appl TOPICAL BID PRN; Protocol PRN Reason: Dry Skin Last Admin: 11/04/22 07:59 Dose: 1 appl Documented By: IKE Metoprolol Tartrate (Metoprolol Tartrate 12.5 Mg Halftab) 12.5 mg PO BID [facility]; Protocol Last Admin: 11/04/22 07:58 Dose: 12.5 mg Documented By: IKE Nystatin (Nystatin Powder 15 Gm Bottle) 1 appl TOPICAL BID [facility]; Protocol Last Admin: 11/04/22 07:59 Dose: 1 appl Documented By: IKE Ondansetron HCl (Ondansetron Hcl 4 Mg/2 Ml Vial) 4 mg IVPUSH Q8H PRN PRN Reason: Nausea and Vomiting Pharmacy Consult (Consult Rx Perform Med Rec) 1 each MISCELLANE ONCE PRN PRN Reason: Consult order Polyethylene Glycol (Polyethylene Glycol 3350 17 Gm Powd.Pack) 17 gm PO DAILY PRN PRN Reason: Constipation Pravastatin Sodium (Pravastatin Sodium 20 Mg Tablet) 20 mg PO BEDTIME [facility] Last Admin: 11/03/22 21:54 Dose: 20 mg Documented By: LONA Salmeterol Xinafoate (Salmeterol Xinafoate 50 Mcg Blst.W.Dev) 1 puff INHALE RBID [facility] Last Admin: 11/04/22 07:32 Dose: 1 puff Documented By: DESTINY Sodium Bicarbonate (Sodium Bicarbonate 650 Mg Tablet) 650 mg PO QID PRN PRN Reason: Gastric Reflux Sodium Chloride (0.9 % Sodium Chloride Flush 3 Ml Syringe) 3 ml IVFLUSH QSHIFT [facility] Last Admin: 11/04/22 07:58 Dose: 3 ml Documented By: IKE Tiotropium [place] (Tiotropium [place] 18 Mcg Cap.W.Dev) 1 puff INHALE RDAILY [facility] Last Admin: 11/04/22 07:32 Dose: 1 puff Documented By: DESTINY Labs 11/03/22 05:26 11/03/22 05:26 Assessment and Plan (1) Clostridioides difficile diarrhea: Status: Acute (2) Acute on chronic diastolic CHF (congestive heart failure), NYHA class 3: Status: Acute (3) Paroxysmal A-fib: Status: Acute (4) Decompensated heart failure: Status: Acute Plan 67 year old with CKD4, DM2, COPD, HTN, HLD, ZEYAD, AF on apixaban presenting with exertional dyspnea x 1 wk, admitted for CHF exacerbation hospitalization complicated by hepatic encephalopathy, CARY, and Cdiff infection. Cdiff infection no further diarrhea,rectal tube is out, finished 10 day course of vanco and deficid. vtach. Resolved had 13 beat episode 10/24, stable magnesium and potassium continue low dose BB, 12.5 mg b.i.d. tele monitoring showed no recurrent episodes cirrhosis with ascites underwent diagnostic tap, no SBP, ascites most likely from severe pulmonary hypertension, tricuspid regurgitation /heart failure. no recurrent abdominal distension. CARY/CKD4 now ESRD concern for cardiorenal and hepatorenal syndrome Permacath placed 10/17/22 nephrology following , continue hemodialysis on Thursday and Saturdays for fluid management, continue renal diet, phosphate binders acute HFpEF last TTE 09/25/22 with LVEF 55%, mod diastolic dysfunction, pulmonary HTN not on diuretics since receiving hemodialysis. acute toxic metabolic encephalopathy resolved was likely multifactorial due to renal failure, and cdif, less likely hepatic encephalopathy with no underlying history of liver disease started on lactulose/rifaximin for concern for hepatic encephalopathy , since encephalopathy resolved , with no underlying history of liver disease lactulose and rifaximin discontinued hypokalemia resolved repeat potassium 3.6 paroxysmal AF s/p PPM placement 09/27 ,continue AC with apixaban DM2 stable blood sugars, cont. ada diet, no insulin sliding scale and point of care blood sugar monitoring. Pressure ulcer (stage 3/4) coccyx , and right buttock stage II, frequent position change, air loss mattress, protein supplements, silver alginate and foam dressing, is stable ulcers. HTN stable blood pressure continue metoprolol home dose 12.5 b.i.d. acute/chronic anemia s/p 2u pRBCs 10/14/22, likely due to CKD + cirrhosis.H+H stable, continue Fe supplementation. thrombocytopenia chronic and stable. COPD not in acute exacerbation prn albuterol, controller inhalers [salmeterol, tiotropium]. Obesity BMI 30.5 weight management. VTE ppx: apixaban dispo: Plan for STR In my clinical judgment, the patient requires continued inpatient hospitalization for the following reasons: dialysis, electrolyte monitoring,and safe disposition to rehab. Time Spent With Patient Time: Total time managing care of this patient today ____ minutes. Quality Stroke Does the patient have a stroke diagnosis?: No VTE Prior VTE?: No VTE Risk Level:: Medical - moderate - high VTE Device Contraindication: Treatment Not Indicated VTE Drug Contraindication: N/A - Med Ordered
[2022-11-04 11:43] VITALS: BP 110/66; PULSE 81; RESP 20; TEMP 36.4; O2SAT 97
[2022-11-04 15:58] VITALS: BP 121/63; PULSE 78; RESP 18; TEMP 36.7; O2SAT 98
[2022-11-04 19:28] VITALS: BP 118/60; PULSE 89; RESP 18; TEMP 36.7; O2SAT 98
[2022-11-04] MEDS: Doxazosin Mesylate 2 MG TABLET 4 MG PO (20:33)
[2022-11-04] MEDS: Pravastatin Sodium 20 MG TABLET PO (20:33)
[2022-11-05] VITALS: BP 132/66; PULSE 79; RESP 18; TEMP 37.3; O2SAT 97
[2022-11-05 04:00] VITALS: BP 133/63; PULSE 75; RESP 18; TEMP 37.4; O2SAT 96
[2022-11-05 07:37] VITALS: BP 126/63; PULSE 87; RESP 20; TEMP 36.7; O2SAT 98
[2022-11-05 07:40] VITALS: PULSE 87; RESP 20; O2SAT 98
[2022-11-05] MEDS: Salmeterol Xinafoate 50 MCG BLST.W.DEV 1 PUFF INHALE (07:40)
[2022-11-05] MEDS: Apixaban 2.5 MG TABLET PO (08:19)
[2022-11-05] MEDS: Clotrimazole 1 % Cream 15 GM TUBE 1 APPL TOPICAL (08:19)
[2022-11-05] MEDS: calcitrioL 0.25 MCG CAPSULE 0.5 MCG PO (08:19)
[2022-11-05] MEDS: Metoprolol Tartrate 12.5 MG HALFTAB PO (08:19)
[2022-11-05] MEDS: Ferrous Sulfate 324 MG TABLET.DR PO (08:19)
[2022-11-05] MEDS: 0.9 % Sodium Chloride Flush 3 ML SYRINGE IVFLUSH (08:20)
[2022-11-05] MEDS: Nystatin Powder 15 GM BOTTLE 1 APPL TOPICAL (08:23)
--- NOTE | 2022-11-05 09:53 | MHC.CM.PN ---
Per MD, Patient will be medically cleared for dc to home today (Patient and 's preference over STR)with services.Patient is active with [facility], who has been informed of today's dc. CM met with Patient and at bedside and addressed IMM with them (original was given to Patient and a copy has been placed on the chart).
--- NOTE | 2022-11-05 09:55 | P.PNNP_ITS ---
Subjective Subjective Date of Service: 11/05/22 Principal diagnosis: Decompensated heart failure Interval history: seen and examined had HD yesterday no complaints Physical Exam Vital Signs: Vital Signs: Last Vital Signs Temp 98.1 F 11/05/22 07:37 Pulse 87 11/05/22 07:40 Resp 20 11/05/22 07:40 BP 126/63 11/05/22 07:37 Pulse Ox 98 11/05/22 07:37 O2 Del Method Room Air 11/05/22 07:37 BMI result Body Mass Index 30.5 Const: General: alert and awake HEENT: Head: Yes normocephalic and Yes atraumatic Neck: Neck: Yes supple Resp: Effort & Inspection: normal respiratory effort Cardio: Heart sounds: S1 normal heart sound present and S2 normal heart sound present GI: Palpation (GI): Soft to palpation and nontender Extrem: General: Yes pedal edema Objective Data Labs 11/03/22 05:26 11/03/22 05:26 Microbiology Microbiology Results: Microbiology 10/22/22 08:55 Blood - Venous Blood Culture - Final No growth after 5 days. 10/22/22 08:55 Blood - Venous Blood Culture - Final No growth after 5 days. 10/22/22 14:21 Ascites Fluid Gram Stain - Final 10/22/22 14:21 Ascites Fluid Anaerobic Culture - Final NO GROWTH AFTER 5 DAYS 10/22/22 14:21 Ascites Fluid Body Fluid Culture - Final No growth after 2 days 10/14/22 Unknown Urine clean catch - Urine keys top Urine Culture - Final Procedures Date of Service Date of Service: 11/05/22 Assessment & Plan Assessment and plan (1) CARY (acute kidney injury): Status: Acute (2) (HFpEF) heart failure with preserved ejection fraction: Status: Acute (3) CKD (chronic kidney disease) stage 4, GFR 15-29 ml/min: Status: Acute Plan CARY superimposed on advanced CKD now ESRD s/p placement of dialysis tunnelled catheter on 10/17 LVEF 55% with pulmonary HTN o/p HD arranged at [facility] dialysis unit REC HD on Thursday ? HD twice a week (will depends on residual [place] kidney function) renal diet phosphate binders retacrit await placement Time Spent With Patient Time: Total time managing care of this patient today ____ minutes. Progress Note: Quality Stroke Does the patient have a stroke diagnosis?: No
--- NOTE | 2022-11-05 10:41 | MHC.CLN ---
F/U PO INTAKE 75-100% DIET RX: 2000DM, LOW PHOS, 2GM NA CHOPPED-APPROPRIATE PT RECEIVING ENSURE MAX BID PROVIDES 300KCALS, 60G PROTEIN TO PROMOTE WOUND HEALING RECOMMEND CHANGING SUPPLEMENT TO ENSURE CLEAR TID WITH THAO PRODUCT IS MORE RENAL FRIENDLY SUPP TO PROVIDE 1200KCALS, 39G PROTEIN MONITOR PO INTAKE, SUPPLEMENT ACCEPTANCE AND WOUND HEALING
--- NOTE | 2022-11-05 11:00 | PM.DS ---
DS: Providers Provider Date of Service: 11/05/22 Date of admission: 10/13/22 22:44 Primary care physician: Steve Nguyen MD Consults: 10/13/22 22:54 Consult to Cardiology Routine Consulting Provider: [facility] Reason for consultation: CHF, sent to ED by Dr. Ron Consult to Nephrology Stat Consulting Provider: Shaggy Byrne Reason for consultation: CHF in pt w/CKD stage 4 10/15/22 07:39 Consult to Urology Routine Consulting Provider: [facility] Reason for consultation: significant scrotal/penile ,has chf Has provider been notified: No 10/20/22 18:24 Consult to Gastroenterology Routine Consulting Provider: [facility] [place] [facility] Reason for consultation: cirrosis /ascitis Has provider been notified: No 10/22/22 15:20 Consult to Infectious Diseases Routine Consulting Provider: [facility] [facility] Reason for consultation: severe Cdiff-> dificid? 10/29/22 12:52 Consult to Wound Care Stat Consulting Provider: Herlinda Georges Reason for consultation: coccyx ulcer Has provider been notified: No DS: Diagnosis Discharge Diagnosis (1) CARY (acute kidney injury): Status: Acute (2) (HFpEF) heart failure with preserved ejection fraction: Status: Acute (3) CKD (chronic kidney disease) stage 4, GFR 15-29 ml/min: Status: Acute DS: Summary Hospital Course Hospital Course: History of presenting illness: Attending physician on admission: Eleanor White Chief Complaint: SOB with exertion Pt is a 67-year-old male with a PMH significant for?CKD stage 4 not on dialysis, tda-nevrpab-[place] diabetes type 2, COPD, HTN, HLD, ZEYAD, and AFib on Eliquis who presents to the ED with?worsening SOB with exertion for the past week. Pt was seen Dr. Ron and Cardiology for follow-up appointment when he was noted to have a 12 lb weight gain during the past week.? Patient complained of increased swelling in his legs and abdomen as well as difficulty with walking due to shortness breath and being off balance.? Occasional dry cough.? Was sent to the ED for further evaluation.? Patient also notes a skin tear on right ankle that occurred approximately 1 week ago.? Patient is not currently on home supplemental oxygen.? Patient denies chest pain/pressure, palpitations.? No fever, chills, nausea, vomiting, diarrhea, abdominal pain.? Patient denies orthopnea or paroxysmal nocturnal dyspnea. Of note, patient had a dual chamber pacemaker placed 3 weeks ago here at the hospital and has not yet restarted his Eliquis because of some postop bruising on his left chest and back.? Patient also recently had an unsuccessful attempt at placing a fistula in his left arm in anticipation of starting on hemodialysis. He says he has an appointment to try again this Thursday. In the ED patient was afebrile but mildly hypotensive at 106/57. Labs were significant for chronic stable pancytopenia:? WBC 3.5, H&H 7.5/23.4, platelets 90.? Creatinine 4.06 (at baseline), phosphorus 5.9, BNP 962 (nearly double baseline). CXR showed suspicion for worsening pulmonary edema versus presence atypical/viral infection. EKG demonstrated ventricular paced rhythm with no evidence ST elevations depressions.? Last echocardiogram was done on 09/25/2022 and found low normal LV systolic function with mild LVH with at least grade 2 diastolic dysfunction. Pt was treated with bumetanide 2 mg IV. Pt will be admitted to the hospital treatment and further evaluation of acute CHF exacerbation. Hospital course: 67 year old with CKD4, DM2, COPD, HTN, HLD, ZEYAD, AF on apixaban presenting with exertional dyspnea x 1 wk, admitted for CHF exacerbation hospitalization complicated by hepatic encephalopathy, CARY, and Cdiff infection. CARY/CKD4 now ESRD noted to have worsening renal function concern for cardiorenal and hepatorenal syndrome? Permacath placed 10/17/22 and patient started on dialysis For fluid management his continued on phosphate binders, outpatient hemodialysis is arranged at [facility] dialysis unit for ThursdayNovember 07 recommend continued outpatient follow-up with Nephrology. Cdiff infection: Diarrhea resolved, finished 10 day course of? vanco and deficid. vtach. Resolved had 13 beat episode 10/24,? stable magnesium and potassium, continue low dose BB, 12.5 mg b.i.d. cirrhosis with ascites underwent diagnostic tap, no SBP, ascites most likely from severe pulmonary hypertension, tricuspid regurgitation /heart failure. no recurrent abdominal distension noted patient tolerating diet. acute HFpEF resolved patient not on diuretic since receiving hemodialysis, last echocardiogram 09/25/22 with LVEF 55%, mod diastolic dysfunction, pulmonary HTN. acute toxic metabolic encephalopathy resolved, was likely multifactorial due to renal failure, and cdif, less likely hepatic encephalopathy with no underlying history of liver disease hypokalemia resolved repeat potassium 3.6 paroxysmal AF s/p PPM placement 09/27 ,continue AC with apixaban DM2 ?stable blood sugars, cont. ada diet, no insulin sliding scale and point of care blood sugar monitoring needed. Pressure ulcer (stage 3/4) coccyx , and right buttock stage II, recommend frequent position change, protein supplements,? silver alginate and foam dressing, stable ulcers. HTN stable blood pressure continue metoprolol home dose 12.5 b.i.d. acute/chronic anemia s/p 2u pRBCs 10/14/22, likely due to CKD H+H stable, continue Fe supplementation. thrombocytopenia chronic and stable. COPD not in acute exacerbation prn albuterol, continue home inhalers. Obesity BMI 30.5, weight management. Time Spent with Patient Time attestation: Total time managing care of this patient today ____ minutes. Discharge coordination time: Greater than 30 minutes Quality: Safe Use of Opioids Does Pt have an Active Cancer Diagnosis on the Problem List?: No Quality: Stroke Does the patient have a stroke diagnosis?: No Physical Exam Vital Signs: Vital Signs: Last Vital Signs Temp 98.1 F 11/05/22 07:37 Pulse 87 11/05/22 07:40 Resp 20 11/05/22 07:40 BP 126/63 11/05/22 07:37 Pulse Ox 98 11/05/22 07:37 O2 Del Method Room Air 11/05/22 07:37 BMI result Body Mass Index 30.5 Const: Other: HEENT: sclera anicteric, moist mucus membranes Neck: supple right anterior chest wall hemodialysis catheter in place with mild surrounding bruise, pacemaker in place? left chest wall Lungs: clear to auscultation bilaterally Heart: regular rate and rhythm, no murmurs Abd: soft,? non tender, bowel sounds audible, no guarding, no rigidity Ext:? chronic discoloration, no edema Skin:? coccyx? foam dressing in place. Neuro: nonfocal Psych: appropriate affect DS: Data Data Completed and Pending Completed studies during hospitalization [Text1]: Pending at discharge 10/22/22 11:00 Cytology [PTH] Routine Procedures Insertion of Pacemaker Lead into Right Atrium, Percutaneous Approach (09/24/22) Insertion of Pacemaker Lead into Right Ventricle, Percutaneous Approach (09/24/22) Insertion of Pacemaker, Dual Chamber into Chest Subcutaneous Tissue and Fascia, Open Approach (09/24/22) Discharge Plan Discharge Anticipated Discharge Date/Time: 11/05/22 10:49 Patient Disposition: Home Health Service Discharge Diagnosis: C difficile infection V-tach Cirrhosis with ascites Acute on chronic kidney disease now end-stage renal disease Heart failure with preserved EF Acute toxic metabolic encephalopathy Hypokalemia Referrals: Son MCCALL [Outside] - 1 Week Po,Steve Dawn MD [Primary Care Provider] - 1 Week (Call office to schedule follow up visit) Discharge Medications: Continued (DME) kylah.stocking,knee,reg,xlrg Misc See Rx Instructions .ROUTE .MEDSUPPLY Qty: 12 0RF Rx Instructions: As directedcompression stockings bilateral adjustable lower extremity garments (DME) compr.stocking,thigh,reg,x-lrg Misc See Rx Instructions .Route Qty: 12 0RF Rx Instructions: As directed 20-30 mm HG (DME) Juxta Lite Compression wraps - Adjustable -for chronic ulcers with open wounds bilat lower extremities See Rx Instructions .Route .MEDSUPPLY Qty: 2 0RF Rx Instructions: As directed pravastatin 20 mg tablet 20 mg PO BEDTIME Qty: 90 3RF Anoro Ellipta 62.5-25 mcg/actuation blister with device 1 ea inhalation DAILY Qty: 60 6RF (DME) lancets [FreeStyle Lancets] 28 gauge misc See Rx Instructions .ROUTE .MEDSUPPLY Qty: 200 3RF Rx Instructions: As directed check BS BID (DME) blood-glucose meter [FreeStyle Lite Meter] Kit See Rx Instructions .ROUTE .MEDSUPPLY Qty: 1 0RF Rx Instructions: As directed (DME) FreeStyle Lite Strips Strip See Rx Instructions .ROUTE .MEDSUPPLY Qty: 200 3RF Rx Instructions: As directed check the BS BID Eliquis 2.5 mg tablet 2.5 mg PO BID Qty: 60 3RF polyethylene glycol 3350 [Miralax] 17 gram powder in packet 17 g PO DAILY PRN (Reason: Constipation) ferrous sulfate 325 mg (65 mg iron) tablet 325 mg PO DAILY Qty: 30 0RF metoprolol tartrate 25 mg tablet 12.5 mg PO BID Qty: 30 0RF terazosin 5 mg capsule 5 mg PO BEDTIME (DME) APAP 5-15 cm H20 humidified AIR See Rx Instructions .Route .MEDSUPPLY Qty: 1 0RF Rx Instructions: As directed calcitriol 0.5 mcg capsule 0.5 mcg PO DAILY albuterol sulfate [ProAir HFA] 90 mcg/actuation HFA aerosol inhaler 2 puff inhalation Q4H PRN (Reason: Shortness Of Breath Or Wheezing) Discontinued isosorbide mononitrate 30 mg tablet extended release 24 hr 30 mg PO DAILY Qty: 90 3RF amlodipine 5 mg tablet 5 mg PO DAILY Qty: 90 3RF sodium bicarbonate 650 mg tablet 650 mg PO QID PRN (Reason: Gastric Reflux) Discharge Orders: Discharge Order (Routine); Ordered 11/05/22 Ordered By: Jim Benites Diet: Diabetic diet Activity on Discharge: As tolerated Stand Alone Forms: Patient Portal Discharge page Care Plan Goals: Take all medications as prescribed Return to check with shortness of breath, chest pain, lightheadedness or dizziness. Outpatient hemodialysis Arranged at [facility] dialysis unit on Thursday Hemodialysis on Thursday. Continue silver alginate and foam dressing to pressure ulcers coccyx and right buttock Health Concerns: End-stage renal disease/diabetes/atrial fibrillation Plan of Treatment: Outpatient follow-up with primary care physician and with Nephrology for continued hemodialysis Assessment: As above
[2022-11-05 11:24] VITALS: BP 129/74; PULSE 74; RESP 20; TEMP 36.3; O2SAT 96
--- NOTE | 2022-11-05 13:49 | MHC.CM.PN ---
Per Patient's 's request, has asked MD to call to address questions regarding HD. MD is agreeable to call.
--- NOTE | 2022-11-05 14:01 | MHC.CM.PN ---
Per MD, she has spoken with Patient's and addressed her questions regarding HD and HD schedule.
--- NOTE | 2022-11-05 14:09 | MHC.CM.PN ---
DEV received a call from CONSUELO BARRETT/Natty @ [phone] requesting community HD start date. Per MD start date is tomorrow/AM shift, DEV relayed to Natty that Dr. Benites indicated Patient will start community HD at [facility] tomorrow morning. Per Natty's request, DEV has faxed dc summary to Natty @ fax # [phone].
== END 2022-11-05 15:34 | disposition home health service (06) | DRG 291 ==
LOC: HO.ED 19:04 → HO.EDOVER 23:22 → HO.IMC 10-14 06:14
PROVIDERS: Family Medicine; Internal Medicine; Internal Medicine Nephrology; Nurse Practitioner Acute Care; Physician Assistant; Physician Assistant Medical; Radiology Diagnostic Radiology; Admitting Provider Student in an Organized Health Care Education/Training Program; Emergency Provider Emergency Medicine; PCP Internal Medicine; Visit Provider Hospitalist
PROC: 0JH63XZ Insertion of Tunneled Vascular Access Device into Chest Subcutaneous Tissue and Fascia, Percutaneous Approach (ICD-10-PCS; principal; 2022-10-17 10:00)
DX: I13.0 Hypertensive heart and chronic kidney disease with heart failure and stage 1 through stage 4 chronic kidney disease, or unspecified chronic kidney disease (principal); G92.8 Other toxic encephalopathy; L89.153 Pressure ulcer of sacral region, stage 3; I50.33 Acute on chronic diastolic (congestive) heart failure; K76.7 Hepatorenal syndrome; N18.4 Chronic kidney disease, stage 4 (severe); E87.20 Acidosis, unspecified; A04.72 Enterocolitis due to Clostridium difficile, not specified as recurrent; R18.8 Other ascites; N17.9 Acute kidney failure, unspecified; D84.9 Immunodeficiency, unspecified; I47.20 Ventricular tachycardia, unspecified; I27.29 Other secondary pulmonary hypertension; E78.00 Pure hypercholesterolemia, unspecified; E11.22 Type 2 diabetes mellitus with diabetic chronic kidney disease; D63.1 Anemia in chronic kidney disease; J44.9 Chronic obstructive pulmonary disease, unspecified; K74.60 Unspecified cirrhosis of liver; Z95.0 Presence of cardiac pacemaker; I50.810 Right heart failure, unspecified; K76.82 Hepatic encephalopathy; D69.6 Thrombocytopenia, unspecified; D50.9 Iron deficiency anemia, unspecified; E87.6 Hypokalemia; I27.81 Cor pulmonale (chronic); E66.9 Obesity, unspecified; L89.312 Pressure ulcer of right buttock, stage 2; Z68.30 Body mass index [BMI] 30.0-30.9, adult; I48.0 Paroxysmal atrial fibrillation; G47.33 Obstructive sleep apnea (adult) (pediatric); E83.39 Other disorders of phosphorus metabolism; Z87.891 Personal history of nicotine dependence; Z79.01 Long term (current) use of anticoagulants; Z79.899 Other long term (current) drug therapy
CPT/HCPCS: 0241U; 36415; 36558; 49083; 71046; 73120; 76705; 80048; 80053; 80076; 81001; 82042; 82140; 82575; 82607; 82728; 82746; 82947; 83540; 83615; 83690; 83735; 83880; 84100; 84132; 84157; 84484; 84540; 85014; 85018; 85025; 85027; 85610; 85730; 86704; 86706; 86850; 86900; 86901; 86920; 86922; 87040; 87070; 87073; 87086; 87205; 87324; 87340; 87493; 87507; 88112; 88305; 89051; 90999; 92526; 92610; 92950; 93005; 93971; 94640; 97110; 97162; 99152; 99285; C1750; C1758; C1769; J0885; J1643; J1940; J2597; J3475; P9016; P9047

== ENCOUNTER 2022-11-22 04:34 | Inpatient (IN) | payer OTHER, SELFPAY ==
[2022-11-22] VITALS (18 sets, daily range): BP systolic 98–133; BP diastolic 44–64; PULSE 65–100; RESP 12–22; TEMP 36.1–37.1; O2SAT 98–100; BMI 27.9; BMI 27.8
--- NOTE | 2022-11-22 | ECG_ITS ---
Test Reason : GI BLEED Blood Pressure : / mmHG Vent. Rate : 089 BPM Atrial Rate : 000 BPM P-R Int : 000 ms QRS Dur : 162 ms QT Int : 450 ms P-R-T Axes : 000 -14 135 degrees QTc Int : 547 ms V-paced rhythm with frequent PVCs Abnormal ECG When compared with ECG of 13-OCT-2022 17:45, Frequent PVCs Referred By: Janine Tuttle Electronically Signed By:Danny Ron
--- NOTE | ~2022-11-22 | CT_ITS ---
EXAMINATION: CT ABDOMEN AND PELVIS WITH AND WITHOUT CONTRAST: CT GI BLEEDING STUDY CLINICAL INFORMATION: Reason for Exam rectal bleeding. COMPARISON: 09/24/2022. TECHNIQUE: Multidetector volumetric imaging was performed from the lung bases to the pubic symphysis before and after the administration of: Intravenous contrast: 80 mL Omnipaque 350 No contrast reaction reported MIP coronal, sagittal and coronal reformatted images were obtained on the technologist workstation. This CT examination was performed using dose optimization techniques as appropriate, variously including the following: *Automated exposure control *Adjustment of mA and/or kV according to patient size (this includes techniques or standardized protocols for targeted exams where dose is matched to indication/reason for exam; i.e. extremities or head) *Use of iterative reconstruction technique Total exam dose-length product 2240 mGy-cm FINDINGS: STOMACH: Partially distended. No abnormal wall thickening or mass. No intraluminal contrast accumulation to suggest hemorrhage. SMALL BOWEL: No abnormal wall thickening or dilation. No intraluminal contrast accumulation to suggest hemorrhage. COLON: No intraluminal contrast accumulation to suggest hemorrhage. No colonic wall thickening or pericolonic inflammatory changes. Normal appendix. LUNG BASES: Minimal left basilar atelectasis. Coronary artery calcifications. Cardiac pacer lead. PLEURA: No pleural effusion. LIVER, GALLBLADDER, AND BILIARY TREE: Normal size of the liver with nodular Contour. No biliary ductal dilatation or focal lesion. The gallbladder is unremarkable with no evidence of radiopaque gallstones, gallbladder wall thickening, or obvious pericholecystic inflammatory changes. PANCREAS: Normal; no mass or surrounding fluid. SPLEEN: Normal size. No focal lesion. ADRENAL GLANDS: Normal; no mass. KIDNEYS AND URETERS: The kidneys are normal in size, shape, and attenuation. No hydronephrosis, hydroureter, or calculi. Simple cyst at the midpole of the left kidney. No specific follow-up recommended. ABDOMINAL WALL: No hernia seen. Diffuse anasarca. LYMPHOVASCULAR STRUCTURES: Mildly prominent inguinal lymph nodes bilaterally. No retroperitoneal lymphadenopathy.. The aorta is normal in caliber. Severe atherosclerotic calcification. BLADDER: Partially distended with circumferential wall thickening. Mild adjacent inflammation. PELVIC VISCERA: The prostate and seminal vesicles are normal. OSSEOUS STRUCTURES: No acute or suspicious osseous abnormality. Advanced degenerative change throughout the spine. CT/CT gi bleed abd pel wo/w IVcon IMPRESSION: 1. No evidence of active gastrointestinal hemorrhage. 2. Cirrhotic liver. 3. Wall thickening of the bladder with adjacent inflammation. Correlate for cystitis.
--- NOTE | 2022-11-22 04:56 | ED.GIBLEED ---
HPI - GI Bleed General Chief complaint: GI Bleed Stated complaint: Bleeding from rectum Time Seen by Provider: 11/22/22 04:55 Source: patient Mode of arrival: ambulatory Limitations: no limitations History of Present Illness HPI Narrative: Patient comes in the emergency room complaining of a GI bleed and feeling weak. Patient states that prior to arrival, patient thought that he had diarrhea, went to the bathroom, noticed that there was a large amount of blood in the toilet, Robin in his stool. Patient denies abdominal pain. Patient has been on Eliquis for approximately 6 months. Patient states that he has been feeling very weak for the last 2 days. Denies lightheadedness, no chest pain or shortness of breath. Related Data Home Medications Medication Instructions Recorded Confirmed calcitriol 0.5 mcg capsule 0.5 mcg PO DAILY 04/03/20 10/13/22 albuterol sulfate 90 mcg/actuation 2 puff inhalation Q4H PRN 07/05/20 10/13/22 aerosol inhaler (ProAir HFA) Shortness Of Breath Or Wheezing polyethylene glycol 3350 17 gram 17 g PO DAILY PRN Constipation 09/24/22 10/13/22 oral powder packet (Miralax) terazosin 5 mg capsule 5 mg PO BEDTIME 10/13/22 10/13/22 Previous Rx's Medication Instructions Recorded kylah.stocking,knee,reg,xlrg #12 ea 11/01/20 compr.stocking,thigh,reg,x-lrg #12 ea 05/31/21 Juxta Lite Compression wraps - #2 ea 07/02/21 Adjustable -for chronic ulcers with open wounds bilat lower extremities APAP 5-15 cm H20 humidified AIR #1 ea 09/06/21 pravastatin 20 mg tablet 20 mg PO BEDTIME #90 tabs 09/09/21 Anoro Ellipta 62.5 mcg-25 1 ea inhalation DAILY #60 ea 07/07/22 mcg/actuation powder for inhalation (umeclidinium-vilanterol) ferrous sulfate 325 mg (65 mg 325 mg PO DAILY #30 tabs 09/30/22 iron) tablet metoprolol tartrate 25 mg tablet 12.5 mg PO BID #30 tabs 09/30/22 blood sugar diagnostic (FreeStyle #200 ea 10/02/22 Lite Strips) blood-glucose meter (FreeStyle #1 ea 10/02/22 Lite Meter kit) lancets 28 gauge (FreeStyle #200 ea 10/02/22 Lancets) apixaban 2.5 mg tablet (Eliquis) 2.5 mg PO BID #60 tabs 10/10/22 Allergies Allergy/AdvReac Type Severity Reaction Status Date / Time No Known Allergies Allergy Verified 10/13/22 17:04 [No Known Allergies*] Review of Systems Review of Systems: Constitutional : No Weight loss, No Fever, No Chills, No Night Sweats, complaining of fatigue ENT/Mouth : No Hearing loss, No Ear Pain, No Nasal Congestion, No Sinus Pain, No Hoarseness, No sore throat, No Rhinorrhea, No Swallowing Difficulty Eyes: No Eye Pain, No Swelling, No Redness, No Foreign Body, No Discharge, No Vision Changes Cardiovascular : No Chest Pain, No SOB, No Dyspnea on Exertion, No Orthopnea, No Edema, No Palpitations Respiratory : No Cough, No Sputum, No Wheezing, No Smoke Exposure, No Dyspnea Gastrointestinal : No Nausea, No Vomiting, No Diarrhea, No Constipation, No abdominal Pain, complaining of rectal bleeding Genitourinary : No Dysuria, No Urinary Frequency, No Hematuria, No Urinary Incontinence, No Urgency, No Flank Pain, No Urinary Flow Changes, No Hesitancy Musculoskeletal : No joint pain, No Myalgias, No Joint Swelling Skin : No Skin Lesions, No rash Neuro : No Weakness, No Numbness, No Paresthesias, No Loss of Consciousness, No Dizziness, No Headache Psych : No Anxiety/Panic, No Depression, No SI/HI/AH/VH, No Social Issues, Heme/Lymph: No Bruising, No Bleeding,No Lymphadenopathy Endocrine : No Polyuria, No Polydipsia, No Temperature Intolerance PMFSH Past Medical History Medical History Acute kidney injury superimposed on chronic kidney disease Afib Anasarca Anemia Anemia BPH (benign prostatic hyperplasia) Bradycardia Chronic kidney disease Cirrhosis CKD (chronic kidney disease) stage 4, GFR 15-29 ml/min Clostridioides difficile diarrhea COPD (chronic obstructive pulmonary disease) Depression, major Dermatitis associated with moisture from stool incontinence Diabetic retinopathy Diastolic heart failure Edema Essential thrombocytopenia Fistula Gout High cholesterol HTN (hypertension) Hypercholesterolemia Incomplete emptying of bladder due to benign prostatic hyperplasia Lumbar degenerative disc disease Lymphedema Obesity (BMI 30-39.9) Obstructive sleep apnea Osteoarthritis Pacemaker Pancytopenia Paroxysmal A-fib Peripheral neuropathy Peripheral vascular disease Pulmonary hypertension Pulmonary hypertension Scrotal edema SLE (systemic lupus erythematosus related syndrome) Type 2 diabetes mellitus with hyperglycemia Urinary retention with incomplete bladder emptying Venous stasis dermatitis Surgical History H/O prior ablation treatment History of bilateral cataract extraction History of bowel diversion surgery History of carpal tunnel release History of gastric surgery History of tonsillectomy Family History Family History Father Prostate cancer CVD (cardiovascular disease) Mother Hemochromatosis Brother Motor vehicle accident Sister CAD (coronary artery disease) Maternal Grandfather Myocardial infarction Social History Social History Household Members: Spouse Housing: House Do you presently have visiting nurse or other home services: Yes Alcohol intake: never Patient Tobacco Use Status: Former Tobacco user Tobacco use type: Cigarette Smoked in Last 30 Days: No e-Cigarette/Vaping Use: Former Use Second Hand Smoke Exposure: Yes Use of substances other than those prescribed or required for medical reasons: No Substance Use Type: Marijuana Advance Directives: No Advance Directives Information Provided: Yes service: No Current occupational status: retired Cognitive needs: Yes Hearing needs: Yes Vision needs: Yes Physical Exam Vital Signs: Vital Signs: Last Vital Signs Temp 97 F 11/22/22 04:36 Pulse 85 11/22/22 06:45 Resp 12 11/22/22 06:45 BP 133/56 L 11/22/22 06:45 Pulse Ox 100 11/22/22 06:45 O2 Del Method Room Air 11/22/22 06:45 BMI result Body Mass Index 27.9 Const: Other: Appearance: Alert. Oriented X3. No acute distress. Eyes: Pupils equal, round and reactive to light. ENT: Pharynx normal. Neck: Normal inspection. Neck supple. No lymph nodes noted. No crepitus CVS: Normal heart rate and rhythm. Pulses normal. Normal S1 and S2 Respiratory: No respiratory distress. Breath sounds normal. No Wheezing. No rales Abdomen: Soft and nontender. No rigidity. No distention. On rectal exam the stool is black mixed with fresh blood Skin: Skin warm and dry. Normal skin color. Normal skin turgor. Extremities: No lower extremity edema. No Lacerations. No Rash Neuro: Oriented X 3. No motor deficit. No sensory deficit. Moving all extremities. No slurred speech. CN 2 through 12 grossly intact Psych: calm, cooperative, normal affect Medications Administered Discontinued Medications Generic Name Dose Route Start Last Admin Trade Name Krystina PRN Reason Stop Dose Admin Iohexol 80 ml 11/22/22 06:31 11/22/22 06:32 Iohexol 350 Mg/Ml 100 Ml Infus..Btl IV 11/22/22 06:32 80 ml ONCE ONE Administration Medical Decision Making Medical Decision Making [facility] Narrative: -patient has had a GI bleed, vital stable, unable to use contrast for CT scan due to chronic kidney disease. -patient started dialysis 3 weeks ago -patient had a pacemaker inserted 2 weeks ago -GI bleed likely secondary to Eliquis, all labs pending. -I was informed by the lab that the patient's hemoglobin is 5.6. Patient's baseline is approximately 9. Patient is symptomatic. I discussed with the patient the benefits versus risks of a blood transfusion, patient states he has had blood transfusions in the past and is agreeable to the blood transfusion. Patient signed consent. I was informed by the blood bank that the patient has antibodies and the blood transfusion will be delayed for couple of hours. -CT scan of the abdomen/pelvis for GI bleed is pending. We will go ahead and use contrast. Patient is due for dialysis today - I discussed the patient with Dr. Santos, patient being admitted Admission/Observation Consideration of admission/observation: Escalation of care including admission/observation considered Consult Healthcare Provider Management of the patient was discussed with: Hospitalist Lab Data [facility] Lab Attestation statement: I reviewed the patient's lab results. 11/22/22 05:08 11/22/22 05:06 Labs: Lab Results 11/22/22 11/22/22 11/22/22 Range/Units 05:06 05:06 05:06 WBC (4.8-10.8) X10*3/uL RBC (4.60-5.80) X10*6/uL Hgb (14.0-18.0) g/dl Hct (42.0-52.0) % MCV (80.0-98.0) fL MCH (27.0-33.0) pg MCHC (31.0-36.0) g/dl RDW (11.0-16.0) % Plt Count (160-400) X10*3/uL MPV (9.4-12.4) fL Immature Gran % (Auto) (0.0-0.4) % Neut % (Auto) (45-73) % Lymph % (Auto) (20-40) % Rowan % (Auto) (2-11) % Eos % (Auto) (0-4) % Baso % (Auto) (0-2) % Lymph # (Auto) (1.2-4.9) X10*3/uL Rowan # (Auto) (0.1-1.2) X10*3/uL Eos # (Auto) (0.0-0.4) X10*3/uL Baso # (Auto) (0.0-0.2) X10*3/uL Abs Immat Gran (auto) (0.00-0.03) X10*3/uL Absolute Neuts (auto) (2.0-8.3) x10*3/uL Absolute Nucleated RBC (0.0-0.012) X10*3/uL Nucleated RBC % (auto) (0.0-0.2) /100WBC PT 15.2 H (10.0-13.1) SEC INR 1.3 H (0.9-1.1) Sodium 138 (135-145) mmol/L Potassium 5.3 H D (3.3-5.1) mmol/L Chloride 99 (96-108) mmol/L Carbon Dioxide 23 (22-29) mmol/L Anion Gap 21 H (12-20) BUN 73 H (9-16) mg/dL Creatinine 4.88 H* (0.5-1.4) mg/dL Estim Creat Clear Calc 16.4 Estimated GFR 12 Random Glucose 121 H (60-115) mg/dL Lactic Acid 4.5 H* (0.5-2.0) mmol/L Calcium 8.5 (8.4-10.2) mg/dL Total Bilirubin 0.6 (0.0-1.0) mg/dL Direct Bilirubin 0.3 (0.0-0.5) mg/dL AST 11 (5-37) U/L ALT 8 (0-40) U/L Alkaline Phosphatase 109 (39-117) U/L Troponin I High Sens (<3.5-35.0) ng/L Total Protein 5.5 L (6.5-8.0) g/dL Albumin 2.9 L (3.5-5.0) g/dL Stool Occult Blood (NEGATIVE) Blood Type Antibody Screen Antibody Identification Crossmatch (AHG) Enhanced Crossmatch 11/22/22 11/22/22 11/22/22 Range/Units 05:06 05:06 05:07 WBC (4.8-10.8) X10*3/uL RBC (4.60-5.80) X10*6/uL Hgb (14.0-18.0) g/dl Hct (42.0-52.0) % MCV (80.0-98.0) fL MCH (27.0-33.0) pg MCHC (31.0-36.0) g/dl RDW (11.0-16.0) % Plt Count (160-400) X10*3/uL MPV (9.4-12.4) fL Immature Gran % (Auto) (0.0-0.4) % Neut % (Auto) (45-73) % Lymph % (Auto) (20-40) % Rowan % (Auto) (2-11) % Eos % (Auto) (0-4) % Baso % (Auto) (0-2) % Lymph # (Auto) (1.2-4.9) X10*3/uL Rowan # (Auto) (0.1-1.2) X10*3/uL Eos # (Auto) (0.0-0.4) X10*3/uL Baso # (Auto) (0.0-0.2) X10*3/uL Abs Immat Gran (auto) (0.00-0.03) X10*3/uL Absolute Neuts (auto) (2.0-8.3) x10*3/uL Absolute Nucleated RBC (0.0-0.012) X10*3/uL Nucleated RBC % (auto) (0.0-0.2) /100WBC PT (10.0-13.1) SEC INR (0.9-1.1) Sodium (135-145) mmol/L Potassium (3.3-5.1) mmol/L Chloride (96-108) mmol/L Carbon Dioxide (22-29) mmol/L Anion Gap (12-20) BUN (9-16) mg/dL Creatinine (0.5-1.4) mg/dL Estim Creat Clear Calc Estimated GFR Random Glucose (60-115) mg/dL Lactic Acid (0.5-2.0) mmol/L Calcium (8.4-10.2) mg/dL Total Bilirubin (0.0-1.0) mg/dL Direct Bilirubin (0.0-0.5) mg/dL AST (5-37) U/L ALT (0-40) U/L Alkaline Phosphatase (39-117) U/L Troponin I High Sens 33.3 (<3.5-35.0) ng/L Total Protein (6.5-8.0) g/dL Albumin (3.5-5.0) g/dL Stool Occult Blood POSITIVE (NEGATIVE) Blood Type A Negative Antibody Screen POSITIVE Antibody Identification Warm Auto Antibody Crossmatch (AHG) See Detail Enhanced Crossmatch See Detail 11/22/22 Range/Units 05:08 WBC 6.4 (4.8-10.8) X10*3/uL RBC 1.77 L D (4.60-5.80) X10*6/uL Hgb 5.6 L* D (14.0-18.0) g/dl Hct 17.3 L* D (42.0-52.0) % MCV 97.7 (80.0-98.0) fL MCH 31.6 (27.0-33.0) pg MCHC 32.4 (31.0-36.0) g/dl RDW 14.1 (11.0-16.0) % Plt Count 114 L D (160-400) X10*3/uL MPV 9.5 (9.4-12.4) fL Immature Gran % (Auto) 0.5 H (0.0-0.4) % Neut % (Auto) 83.5 H (45-73) % Lymph % (Auto) 9.0 L (20-40) % Rowan % (Auto) 6.7 (2-11) % Eos % (Auto) 0.0 (0-4) % Baso % (Auto) 0.3 (0-2) % Lymph # (Auto) 0.6 L (1.2-4.9) X10*3/uL Rowan # (Auto) 0.4 (0.1-1.2) X10*3/uL Eos # (Auto) 0.0 (0.0-0.4) X10*3/uL Baso # (Auto) 0.0 (0.0-0.2) X10*3/uL Abs Immat Gran (auto) 0.03 (0.00-0.03) X10*3/uL Absolute Neuts (auto) 5.4 (2.0-8.3) x10*3/uL Absolute Nucleated RBC 0.000 (0.0-0.012) X10*3/uL Nucleated RBC % (auto) 0.0 (0.0-0.2) /100WBC PT (10.0-13.1) SEC INR (0.9-1.1) Sodium (135-145) mmol/L Potassium (3.3-5.1) mmol/L Chloride (96-108) mmol/L Carbon Dioxide (22-29) mmol/L Anion Gap (12-20) BUN (9-16) mg/dL Creatinine (0.5-1.4) mg/dL Estim Creat Clear Calc Estimated GFR Random Glucose (60-115) mg/dL Lactic Acid (0.5-2.0) mmol/L Calcium (8.4-10.2) mg/dL Total Bilirubin (0.0-1.0) mg/dL Direct Bilirubin (0.0-0.5) mg/dL AST (5-37) U/L ALT (0-40) U/L Alkaline Phosphatase (39-117) U/L Troponin I High Sens (<3.5-35.0) ng/L Total Protein (6.5-8.0) g/dL Albumin (3.5-5.0) g/dL Stool Occult Blood (NEGATIVE) Blood Type Antibody Screen Antibody Identification Crossmatch (AHG) Enhanced Crossmatch Radiology Impression Discussion of test interpretation with radiology: I have reviewed the radiologist's reading. Radiologist Impression: FINDINGS: STOMACH: Partially distended. No abnormal wall thickening or mass.? No intraluminal contrast accumulation to suggest hemorrhage. SMALL BOWEL: No abnormal wall thickening or dilation. No intraluminal contrast accumulation to suggest hemorrhage. COLON: No intraluminal contrast accumulation to suggest hemorrhage.? No colonic wall thickening or pericolonic inflammatory changes.? Normal appendix. LUNG BASES: Minimal left basilar atelectasis. Coronary artery calcifications. Cardiac pacer lead. PLEURA: No pleural effusion. LIVER, GALLBLADDER, AND BILIARY TREE: Normal size of the liver with nodular Contour. No biliary ductal dilatation or focal lesion. The gallbladder is unremarkable with no evidence of radiopaque gallstones, gallbladder wall thickening, or obvious pericholecystic inflammatory changes.? PANCREAS: Normal; no mass or surrounding fluid.? SPLEEN: Normal size.? No focal lesion.? ADRENAL GLANDS: Normal; no mass.? KIDNEYS AND URETERS: The kidneys are normal in size, shape, and attenuation. No hydronephrosis, hydroureter, or calculi. Simple cyst at the midpole of the left kidney. No specific follow-up recommended. ABDOMINAL WALL: No hernia seen. Diffuse anasarca. LYMPHOVASCULAR STRUCTURES: Mildly prominent inguinal lymph nodes bilaterally. No retroperitoneal lymphadenopathy.. The aorta is normal in caliber. Severe atherosclerotic calcification. BLADDER: Partially distended with circumferential wall thickening. Mild adjacent inflammation.? PELVIC VISCERA: The prostate and seminal vesicles are normal. OSSEOUS STRUCTURES: No acute or suspicious osseous abnormality. Advanced degenerative change throughout the spine. CT/CT gi bleed abd pel wo/w IVcon IMPRESSION: 1.? No evidence of active gastrointestinal hemorrhage. 2.? Cirrhotic liver. 3.? Wall thickening of the bladder with adjacent inflammation. Correlate for cystitis. ? Critical Care Time Critical Care Time Critical Care Time: Yes Total Critical Care Time: 60 Attestation: I have personally provided critical care time. Time includes review of lab data, radiology results, discussion with consultants, and monitoring for potential decompensation. Intervention performed as documented. Discharge Plan Discharge Clinical Impression: Acute GI bleeding, Anemia Patient Disposition: Admitted As Inpatient Prescriptions: No Action (DME) kylah.stocking,knee,reg,xlrg Misc See Rx Instructions .ROUTE .MEDSUPPLY Qty: 12 0RF Rx Instructions: As directedcompression stockings bilateral adjustable lower extremity garments (DME) compr.stocking,thigh,reg,x-lrg Misc See Rx Instructions .Route Qty: 12 0RF Rx Instructions: As directed 20-30 mm HG (DME) Juxta Lite Compression wraps - Adjustable -for chronic ulcers with open wounds bilat lower extremities See Rx Instructions .Route .MEDSUPPLY Qty: 2 0RF Rx Instructions: As directed pravastatin 20 mg tablet 20 mg PO BEDTIME Qty: 90 3RF Anoro Ellipta 62.5-25 mcg/actuation blister with device 1 ea inhalation DAILY Qty: 60 6RF (DME) lancets [FreeStyle Lancets] 28 gauge misc See Rx Instructions .ROUTE .MEDSUPPLY Qty: 200 3RF Rx Instructions: As directed check BS BID (DME) blood-glucose meter [FreeStyle Lite Meter] Kit See Rx Instructions .ROUTE .MEDSUPPLY Qty: 1 0RF Rx Instructions: As directed (DME) FreeStyle Lite Strips Strip See Rx Instructions .ROUTE .MEDSUPPLY Qty: 200 3RF Rx Instructions: As directed check the BS BID Eliquis 2.5 mg tablet 2.5 mg PO BID Qty: 60 3RF polyethylene glycol 3350 [Miralax] 17 gram powder in packet 17 g PO DAILY PRN (Reason: Constipation) ferrous sulfate 325 mg (65 mg iron) tablet 325 mg PO DAILY Qty: 30 0RF metoprolol tartrate 25 mg tablet 12.5 mg PO BID Qty: 30 0RF terazosin 5 mg capsule 5 mg PO BEDTIME (DME) APAP 5-15 cm H20 humidified AIR See Rx Instructions .Route .MEDSUPPLY Qty: 1 0RF Rx Instructions: As directed calcitriol 0.5 mcg capsule 0.5 mcg PO DAILY albuterol sulfate [ProAir HFA] 90 mcg/actuation HFA aerosol inhaler 2 puff inhalation Q4H PRN (Reason: Shortness Of Breath Or Wheezing)
[2022-11-22 05:16] LABS: MANUAL DIFF FLAG NO
[2022-11-22 05:17] LABS: OBS Int Ctl Valid YES; OBS1 POSITIVE (NEGATIVE)
[2022-11-22 05:18] LABS: Basophils Percent Auto 0.3 % (0-2); Imm Gran Abs Auto 0.03 X10*3/uL (0.00-0.03); Imm Gran Pct Auto 0.5 % (0.0-0.4); Lymphocytes Absolute Auto 0.6 X10*3/uL (1.2-4.9); Mean Corpuscular HGB Conc 32.4 g/dl (31.0-36.0); Mean Corpuscular Hemoglobin 31.6 pg (27.0-33.0); Mean Corpuscular Volume 97.7 fL (80.0-98.0); Mean Platelet Volume 9.5 fL (9.4-12.4); Monocytes Absolute Auto 0.4 X10*3/uL (0.1-1.2); Monocytes Percent Auto 6.7 % (2-11); Neutrophils Absolute Auto 5.4 x10*3/uL (2.0-8.3); Neutrophils Percent Auto 83.5 % (45-73); Platelet Count 114 X10*3/uL (160-400); Red Blood Count 1.77 X10*6/uL (4.60-5.80); Red Cell Distribution Width 14.1 % (11.0-16.0); White Blood Count 6.4 X10*3/uL (4.8-10.8)
[2022-11-22 05:21] LABS: Hematocrit 17.3 % (42.0-52.0); Hemoglobin 5.6 g/dl (14.0-18.0)
[2022-11-22 05:24] LABS: INTERNATIONAL NORM RATIO 1.3 (0.9-1.1); Prothrombin Time 15.2 SEC (10.0-13.1)
[2022-11-22 05:31] LABS: Lactic Acid 4.5 mmol/L (0.5-2.0)
[2022-11-22 05:34] LABS: Alanine Aminotransferase 8 U/L (0-40); Albumin Level 2.9 g/dL (3.5-5.0); Alkaline Phosphatase 109 U/L (39-117); Anion Gap 21 (12-20); Aspartate Amino Transferase 11 U/L (5-37); Bilirubin Direct 0.3 mg/dL (0.0-0.5); Bilirubin Total 0.6 mg/dL (0.0-1.0); Blood Urea Nitrogen 73 mg/dL (9-16); Calcium 8.5 mg/dL (8.4-10.2); Carbon Dioxide 23 mmol/L (22-29); Chloride 99 mmol/L (96-108); Creatinine Clr Calc Pharmacy 16.4; Estimated Glomerular Filt Rate 12; Glucose Random 121 mg/dL (60-115); Potassium 5.3 mmol/L (3.3-5.1); Sodium 138 mmol/L (135-145); Total Protein 5.5 g/dL (6.5-8.0); Troponin-I High Sensitivity 33.3 ng/L (<3.5-35.0)
[2022-11-22] MEDS: iohexoL 350 MG/ML 100 ML INFUS..BTL 80 ML IV (06:32)
[2022-11-22 07:15] LABS: Reflex Lactate? Lactic Acid Added
[2022-11-22 08:00] LABS: ~Lactic Acid-LAB USE ONLY 1.5 mmol/L (0.5-2.0)
--- NOTE | 2022-11-22 08:24 | PM.IMHP ---
History of Present Illness Date of Service: 11/22/22 Chief Complaint: Dark red blood per rectum 67M PMH liver cirrhosis (?TOMLINSON), ESRD on HD, sick sinus s/p pacer, DM, chronic diastolic chf, pulm htn, COPD, depression, paroxysmal afib on eliquis, recent cdif 10/2022, presented with blood per rectum. patient states on night priot to presentation he noted significant dark red blood per rectum. 1 episode, took imodium and has not recurred. he feels weak and 'Whoozy', in ED noted to have hgb of 5.6. Review of Systems Review of Systems: Yes all other systems are reviewed and are negative [facility] Medical History Acute kidney injury superimposed on chronic kidney disease Afib Anasarca Anemia Anemia BPH (benign prostatic hyperplasia) Bradycardia Chronic kidney disease Cirrhosis CKD (chronic kidney disease) stage 4, GFR 15-29 ml/min Clostridioides difficile diarrhea COPD (chronic obstructive pulmonary disease) Depression, major Dermatitis associated with moisture from stool incontinence Diabetic retinopathy Diastolic heart failure Edema Essential thrombocytopenia Fistula Gout High cholesterol HTN (hypertension) Hypercholesterolemia Incomplete emptying of bladder due to benign prostatic hyperplasia Lumbar degenerative disc disease Lymphedema Obesity (BMI 30-39.9) Obstructive sleep apnea Osteoarthritis Pacemaker Pancytopenia Paroxysmal A-fib Peripheral neuropathy Peripheral vascular disease Pulmonary hypertension Pulmonary hypertension Scrotal edema SLE (systemic lupus erythematosus related syndrome) Type 2 diabetes mellitus with hyperglycemia Urinary retention with incomplete bladder emptying Venous stasis dermatitis Family History Father Prostate cancer CVD (cardiovascular disease) Mother Hemochromatosis Brother Motor vehicle accident Sister CAD (coronary artery disease) Maternal Grandfather Myocardial infarction Surgical History H/O prior ablation treatment History of bilateral cataract extraction History of bowel diversion surgery History of carpal tunnel release History of gastric surgery History of tonsillectomy Social History Household Members: Spouse Housing: House Do you presently have visiting nurse or other home services: Yes Alcohol intake: never Patient Tobacco Use Status: Former Tobacco user Tobacco use type: Cigarette Smoked in Last 30 Days: No e-Cigarette/Vaping Use: Former Use Second Hand Smoke Exposure: Yes Use of substances other than those prescribed or required for medical reasons: No Substance Use Type: Marijuana Advance Directives: No Advance Directives Information Provided: Yes service: No Current occupational status: retired Cognitive needs: Yes Hearing needs: Yes Vision needs: Yes Meds Allergies Allergy/AdvReac Type Severity Reaction Status Date / Time No Known Allergies Allergy Verified 10/13/22 17:04 [No Known Allergies*] Active Medications: Current Medications Glucose (Glucose Gel 15 Gm Gel..Gram.) 15 gm PO Q15M PRN; Protocol PRN Reason: per Hypoglycemia Standing Ord. Dextrose (D10) 250 mls @ 750 mls/hr IV Q15M PRN; Protocol PRN Reason: per Hypoglycemia Standing Ord. Sodium Chloride (Ns) 1,000 mls @ 75 mls/hr IVCONT .[id number] [facility] Insulin Human Lispro (Insulin Lispro 100 Unit/Ml 3 Ml Vial) 0 unit SUBCUT QIDACHS [facility]; Protocol Pantoprazole Sodium (Pantoprazole Sodium 40 Mg/10 Ml Vial) 40 mg IVPUSH BID@0630,1630 [facility] Pharmacy Consult (Consult Rx Perform Med Rec) 1 each MISCELLANE ONCE STA Stop: 11/22/22 07:51 Home Medications Medication Instructions Recorded Confirmed Last Taken Type calcitriol 0.5 mcg capsule 0.5 mcg PO DAILY 04/03/20 10/13/22 10/13/22 History albuterol sulfate 90 mcg/actuation 2 puff inhalation Q4H PRN 07/05/20 10/13/22 10/13/22 History aerosol inhaler (ProAir HFA) Shortness Of Breath Or Wheezing polyethylene glycol 3350 17 gram 17 g PO DAILY PRN Constipation 09/24/22 10/13/22 10/13/22 History oral powder packet (Miralax) terazosin 5 mg capsule 5 mg PO BEDTIME 10/13/22 10/13/22 10/13/22 History Physical Exam Vital Signs and Narrative: Vital Signs: Last Vital Signs Temp 97.9 F 11/22/22 08:16 Pulse 84 11/22/22 08:16 Resp 16 11/22/22 08:16 BP 121/57 L 11/22/22 08:16 Pulse Ox 100 11/22/22 08:16 O2 Del Method Room Air 11/22/22 08:16 BMI result Body Mass Index 27.9 General: AO X 3, no acute distress, pale Resp: CTA bilateral, no accessory muscles used CVS: S1,S2,RRR GI: soft, non tender, non distended Neuro: motor grossly intact, alert Psych: appropriate affect, appropriate insight Results Labs 11/22/22 05:08 11/22/22 05:06 Labs: Laboratory Results - last 24 hr 11/22/22 11/22/22 11/22/22 05:06 05:06 05:06 MCV MCH MCHC RDW Plt Count MPV Immature Gran % (Auto) Neut % (Auto) Lymph % (Auto) [place] % (Auto) Eos % (Auto) Baso % (Auto) Lymph # (Auto) [place] # (Auto) Eos # (Auto) Baso # (Auto) Abs Immat Gran (auto) Absolute Neuts (auto) Absolute Nucleated RBC Nucleated RBC % (auto) PT 15.2 H INR 1.3 H Anion Gap 21 H Estim Creat Clear Calc 16.4 Estimated GFR 12 Random Glucose 121 H Lactic Acid 4.5 H* Lactic Acid F/U @ 2Hr Calcium 8.5 Total Bilirubin 0.6 Direct Bilirubin 0.3 AST 11 ALT 8 Alkaline Phosphatase 109 Troponin I High Sens Total Protein 5.5 L Albumin 2.9 L Stool Occult Blood Blood Type Antibody Screen Antibody Identification Crossmatch (AHG) Enhanced Crossmatch 11/22/22 11/22/22 11/22/22 05:06 05:06 05:07 MCV MCH MCHC RDW Plt Count MPV Immature Gran % (Auto) Neut % (Auto) Lymph % (Auto) [place] % (Auto) Eos % (Auto) Baso % (Auto) Lymph # (Auto) [place] # (Auto) Eos # (Auto) Baso # (Auto) Abs Immat Gran (auto) Absolute Neuts (auto) Absolute Nucleated RBC Nucleated RBC % (auto) PT INR Anion Gap Estim Creat Clear Calc Estimated GFR Random Glucose Lactic Acid Lactic Acid F/U @ 2Hr Calcium Total Bilirubin Direct Bilirubin AST ALT Alkaline Phosphatase Troponin I High Sens 33.3 Total Protein Albumin Stool Occult Blood POSITIVE Blood Type A Negative Antibody Screen POSITIVE Antibody Identification Warm Auto Antibody Crossmatch (AHG) See Detail Enhanced Crossmatch See Detail 11/22/22 11/22/22 05:08 07:41 MCV 97.7 MCH 31.6 MCHC 32.4 RDW 14.1 Plt Count 114 L D MPV 9.5 Immature Gran % (Auto) 0.5 H Neut % (Auto) 83.5 H Lymph % (Auto) 9.0 L [place] % (Auto) 6.7 Eos % (Auto) 0.0 Baso % (Auto) 0.3 Lymph # (Auto) 0.6 L [place] # (Auto) 0.4 Eos # (Auto) 0.0 Baso # (Auto) 0.0 Abs Immat Gran (auto) 0.03 Absolute Neuts (auto) 5.4 Absolute Nucleated RBC 0.000 Nucleated RBC % (auto) 0.0 PT INR Anion Gap Estim Creat Clear Calc Estimated GFR Random Glucose Lactic Acid Lactic Acid F/U @ 2Hr 1.5 Calcium Total Bilirubin Direct Bilirubin AST ALT Alkaline Phosphatase Troponin I High Sens Total Protein Albumin Stool Occult Blood Blood Type Antibody Screen Antibody Identification Crossmatch (AHG) Enhanced Crossmatch Imaging Radiologist's Impressions: Impressions Abdomen/Pelvis CT 11/22/22 06:20 IMPRESSION: 1. No evidence of active gastrointestinal hemorrhage. 2. Cirrhotic liver. 3. Wall thickening of the bladder with adjacent inflammation. Correlate for cystitis. Assessment and Plan (1) Acute GI bleeding: Status: Acute Plan 67M PMH liver cirrhosis (?TOMLINSON), ESRD on HD, sick sinus s/p pacer, DM, chronic diastolic chf, pulm htn, COPD, depression, paroxysmal afib on eliquis, recent cdif 10/2022, presented with blood per rectum. acute blood loss anemia due to gi bleed hold eliquis iv ppi gi eval 3 units prbc monitor cbc if stable plan for scope on 11/24/22 ESRD HD, nephro DM insulin sliding scale liver cirrhosis suspect TOMLINSON, history of morbid obesity and DM, now with significant weight loss over past 2 years gi eval chronic diastolic chf, pulm htn currently hypovolemic, cautious hydration copd stable paroxysmal afib holding eliquis dvt prophylaxis - mechanical due to gi bleed full code patient with signifcant anemia and gi bleed, needing iv ppi and transfusions as well as close monitoring and likely endoscopic procedure, therefore, expected to require atleast 2 midnights inpatient Time Spent With Patient Time: Total time managing care of this patient today ____ minutes. Quality Stroke Does the patient have a stroke diagnosis?: No VTE Prior VTE?: No VTE Risk Level:: Medical - moderate - high VTE Device Contraindication: N/A - Device Ordered VTE Drug Contraindication: Treatment Not Tolerated
[2022-11-22] MEDS: Pantoprazole Sodium 40 MG/10 ML VIAL IVPUSH ×2 (08:29→18:15)
--- NOTE | 2022-11-22 08:30 | PC.NURSE ---
N2N report given to ZACARIAS Fan
--- NOTE | 2022-11-22 11:13 | P.CONNP_ITS ---
History of Present Illness Reason for Consult Consult date: 11/23/22 Reason for consult: ESRD Chief Complaint Chief complaint: gi bleed History of Present Illness Narrative: 67M PMH liver cirrhosis (?TOMLINSON), ESRD on HD, sick sinus s/p pacer, DM, chronic diastolic chf, pulm htn, COPD, depression, paroxysmal afib on eliquis, recent cdif 10/2022, presented with blood per rectum. patient states on night priot to presentation he noted significant dark red blood per rectum. 1 episode, took imodium and has not recurred. he feels weak and 'Whoozy', in ED noted to have hgb of 5.6. He was on apixaban at home. Usually gets dialysis at [facility] [place] on Saturdays in the morning. Review of Systems Review of Systems No headache. No nausea vomiting. No abdominal pain. No shortness of breath. No cough. No dysuria urgency or hematuria. No edema. No rash. He noticed some dark stools. [facility] Past Medical History Medical History Acute kidney injury superimposed on chronic kidney disease Afib Anasarca Anemia Anemia BPH (benign prostatic hyperplasia) Bradycardia Chronic kidney disease Cirrhosis CKD (chronic kidney disease) stage 4, GFR 15-29 ml/min Clostridioides difficile diarrhea COPD (chronic obstructive pulmonary disease) Depression, major Dermatitis associated with moisture from stool incontinence Diabetic retinopathy Diastolic heart failure Edema Essential thrombocytopenia Fistula Gout High cholesterol HTN (hypertension) Hypercholesterolemia Incomplete emptying of bladder due to benign prostatic hyperplasia Lumbar degenerative disc disease Lymphedema Obesity (BMI 30-39.9) Obstructive sleep apnea Osteoarthritis Pacemaker Pancytopenia Paroxysmal A-fib Peripheral neuropathy Peripheral vascular disease Pulmonary hypertension Pulmonary hypertension Scrotal edema SLE (systemic lupus erythematosus related syndrome) Type 2 diabetes mellitus with hyperglycemia Urinary retention with incomplete bladder emptying Venous stasis dermatitis Family History Family History Father Prostate cancer CVD (cardiovascular disease) Mother Hemochromatosis Brother Motor vehicle accident Sister CAD (coronary artery disease) Maternal Grandfather Myocardial infarction Surgical History Surgical History H/O prior ablation treatment History of bilateral cataract extraction History of bowel diversion surgery History of carpal tunnel release History of gastric surgery History of tonsillectomy Social History Social History Household Members: Spouse Housing: House Do you presently have visiting nurse or other home services: Yes Alcohol intake: never Patient Tobacco Use Status: Former Tobacco user Tobacco use type: Cigarette e-Cigarette/Vaping Use: Former Use Second Hand Smoke Exposure: Yes Substance Use Type: Marijuana service: No Current occupational status: retired Cognitive needs: Yes Hearing needs: Yes Vision needs: Yes Meds Allergies Allergy/AdvReac Type Severity Reaction Status Date / Time No Known Allergies Allergy Verified 10/13/22 17:04 [No Known Allergies*] Active Medications: Current Medications Glucose (Glucose Gel 15 Gm Gel..Gram.) 15 gm PO Q15M PRN; Protocol PRN Reason: per Hypoglycemia Standing Ord. Dextrose (D10) 250 mls @ 750 mls/hr IV Q15M PRN; Protocol PRN Reason: per Hypoglycemia Standing Ord. Insulin Human Lispro (Insulin Lispro 100 Unit/Ml 3 Ml Vial) 0 unit SUBCUT QIDACHS [facility]; Protocol Pantoprazole Sodium (Pantoprazole Sodium 40 Mg/10 Ml Vial) 40 mg IVPUSH BID@0630,1630 [facility] Last Admin: 11/22/22 08:29 Dose: 40 mg Pharmacy Consult (Consult Rx Perform Med Rec) 1 each MISCELLANE ONCE STA Stop: 11/22/22 07:51 Sodium Chloride (0.9 % Sodium Chloride Flush 3 Ml Syringe) [facility] Medications Medication Instructions Recorded Confirmed Last Taken Type calcitriol 0.5 mcg capsule 0.5 mcg PO TUTHSA 04/03/20 11/22/22 10/13/22 History albuterol sulfate 90 mcg/actuation 2 puff inhalation Q6H PRN 07/05/20 11/22/22 10/13/22 History aerosol inhaler (ProAir HFA) Shortness Of Breath Or Wheezing polyethylene glycol 3350 17 gram 17 g PO DAILY PRN Constipation 09/24/22 11/22/22 10/13/22 History oral powder packet (Miralax) terazosin 5 mg capsule 5 mg PO BEDTIME 10/13/22 11/22/22 10/13/22 History pravastatin 20 mg tablet 20 mg PO DAILY 11/22/22 11/22/22 Unknown History sevelamer carbonate 800 mg tablet 800 mg PO TIDWM 11/22/22 11/22/22 Unknown History Physical Exam Vital Signs: Last Vital Signs Temp 97.9 F 11/22/22 10:18 Pulse 80 11/22/22 10:18 Resp 20 11/22/22 10:18 BP 121/57 L 11/22/22 10:18 Pulse Ox 100 11/22/22 10:18 O2 Del Method Room Air 11/22/22 10:18 BMI result Body Mass Index 27.9 Comfortable Neck is supple Lung: Air entry equal Heart: S1,S2, normal. No rub Abd: Soft. BS + NS : Alert.No asterexis Ext: 1+ edema with pigmentation legs Results Lab Results 11/22/22 05:08 11/22/22 05:06 Lab results: Chemistry 11/22/22 05:06 Sodium 138 Potassium 5.3 H D Carbon Dioxide 23 BUN 73 H Creatinine 4.88 H* Calcium 8.5 Hematology 11/22/22 05:08 WBC 6.4 Hgb 5.6 L* D Plt Count 114 L D Assessment and Plan (1) Anemia: Status: Acute (2) ESRD (end stage renal disease): Status: Acute Plan Elderly man with renal failure currently on hemodialysis. Admitted with GI bleed. From a renal status. No overt signs or symptoms of uremia. We will dialyze him again today. We will use a low-potassium bath to correct hyperkalemia. Transfuse packed red blood cells as indicated. Concur with GI workup for the GI bleed. Time Spent With Patient Time: Total time managing care of this patient today ____ minutes. Procedures Date of Service Date of Service: 11/23/22
--- NOTE | 2022-11-22 11:21 | PC.NURSE ---
[facility] called to see how patient was doing. Gave an update. 2nd unit of RBC's en route.
--- NOTE | 2022-11-22 11:32 | PHA.MEDREC ---
Pharmacy Consult ? Medication Reconciliation Pharmacy has completed the medication reconciliation. spoke with patient. verified his medications. His Eliquis was prescribed as 5mg BID but the patient and the previous discharge summaries say 2.5mg BID. Also, there is no claim history for the Terazosin 5mg but the patient says he is on it and is on his previous discharge summaries as well. Patient gave me the phone number for the visiting nurse ([phone]). Left her a voicemail for further verification.
[2022-11-22 12:35] LABS: Glucose, Whole Blood 73 mg/dL (60-115)
--- NOTE | 2022-11-22 16:05 | PC.NURSE ---
Pt is in dialysis at this time. Nurse from Dialysis just called the ED to inform me that the second unit of blood is finished. Third unit of blood will be hung when pt gets back to ED.
--- NOTE | 2022-11-22 16:35 | PC.NURSE ---
Medication administration delayed due to pt in dialysis.
[2022-11-22 18:08] LABS: Glucose, Whole Blood 88 mg/dL (60-115)
--- NOTE | 2022-11-22 18:08 | PC.NURSE ---
Just retrieved pt from dialysis. Pt states he fees okay, reports no pain................... Third unit of blood is being issued now.
--- NOTE | 2022-11-22 20:42 | PC.NURSE ---
Third unit of blood completed. I confirmed with SELENA Gamez that pt will only get 3 units, but there is a fourth unit in the system. Pt resting comfortably in bed at this time, no complaints
[2022-11-22 20:50] LABS: Glucose, Whole Blood 87 mg/dL (60-115)
--- NOTE | 2022-11-22 21:52 | PC.NURSE ---
Attempted to call report at 21:53, no response.
[2022-11-22] MEDS: 0.9 % Sodium Chloride Flush 3 ML SYRINGE IVFLUSH (23:06)
[2022-11-23] VITALS (10 sets, daily range): BP systolic 94–132; BP diastolic 43–70; PULSE 84–91; RESP 12–20; TEMP 36.4–37.2; O2SAT 98–100
[2022-11-23] MEDS: Pantoprazole Sodium 40 MG/10 ML VIAL IVPUSH ×2 (05:42→17:14)
[2022-11-23 06:35] LABS: Anion Gap 14 (12-20); Blood Urea Nitrogen 38 mg/dL (9-16); Calcium 8.5 mg/dL (8.4-10.2); Carbon Dioxide 25 mmol/L (22-29); Chloride 102 mmol/L (96-108); Creatinine Clr Calc Pharmacy 26.3; Estimated Glomerular Filt Rate 20; Glucose Fasting 71 mg/dL (60-99); Potassium 4.2 mmol/L (3.3-5.1); Sodium 137 mmol/L (135-145)
[2022-11-23 06:40] LABS: Mean Corpuscular HGB Conc 32.5 g/dl (31.0-36.0); Mean Corpuscular Hemoglobin 31.8 pg (27.0-33.0); Mean Corpuscular Volume 97.7 fL (80.0-98.0); Platelet Count 106 X10*3/uL (160-400); Red Blood Count 2.14 X10*6/uL (4.60-5.80); Red Cell Distribution Width 14.4 % (11.0-16.0); White Blood Count 5.3 X10*3/uL (4.8-10.8)
[2022-11-23 07:21] LABS: Hemoglobin 6.8 g/dl (14.0-18.0)
[2022-11-23 07:22] LABS: Hematocrit 20.9 % (42.0-52.0)
[2022-11-23 08:11] LABS: Glucose, Whole Blood 76 mg/dL (60-115)
--- NOTE | 2022-11-23 08:19 | HO.PM.IMPN ---
Subjective Subjective Date of Service: 11/23/22 Interval History: no further bleeding Physical Exam Vital Signs: Vital Signs: Last Vital Signs Temp 97.9 F 11/23/22 07:08 Pulse 88 11/23/22 07:08 Resp 20 11/23/22 07:08 BP 116/64 11/23/22 07:08 Pulse Ox 98 11/23/22 07:08 O2 Del Method Room Air 11/23/22 07:08 BMI result Body Mass Index 27.8 General: AO X 3, no acute distress Resp: CTA bilateral, no accessory muscles used CVS: S1,S2,RRR GI: soft, non tender, non distended Neuro: motor grossly intact, alert Psych: appropriate affect, appropriate insight Objective Data Active Medications Glucose (Glucose Gel 15 Gm Gel..Gram.) 15 gm PO Q15M PRN; Protocol PRN Reason: per Hypoglycemia Standing Ord. Dextrose (D10) 250 mls @ 750 mls/hr IV Q15M PRN; Protocol PRN Reason: per Hypoglycemia Standing Ord. Insulin Human Lispro (Insulin Lispro 100 Unit/Ml 3 Ml Vial) 0 unit SUBCUT QIDACHS [facility]; Protocol Last Admin: 11/22/22 21:25 Dose: Not Given Documented By: GREGORIO Non-Admin Reason: No Insulin Coverage Metoprolol Tartrate (Metoprolol Tartrate 12.5 Mg Halftab) 12.5 mg PO BID [facility]; Protocol Pantoprazole Sodium (Pantoprazole Sodium 40 Mg/10 Ml Vial) 40 mg IVPUSH BID@0630,1630 [facility] Last Admin: 11/23/22 05:42 Dose: 40 mg Documented By: GLORIA Sevelamer Carbonate (Sevelamer Carbonate Tablet 800 Mg Tablet) 800 mg PO TIDWM [facility] Sodium Chloride (0.9 % Sodium Chloride Flush 3 Ml Syringe) 3 ml IVFLUSH QSHIFT [facility] Last Admin: 11/22/22 23:06 Dose: 3 ml Documented By: ELLA Labs 11/23/22 05:39 11/23/22 05:39 Labs: Laboratory Results - last 24 hr 11/22/22 11/22/22 11/22/22 05:06 12:31 18:05 MCV MCH MCHC RDW Plt Count MPV Absolute Nucleated RBC Nucleated RBC % (auto) Anion Gap Estim Creat Clear Calc Estimated GFR POC Glucose 73 88 Fasting Glucose Calcium Blood Type A Negative Antibody Screen POSITIVE Antibody Identification Warm Auto Antibody Crossmatch (AHG) See Detail Enhanced Crossmatch See Detail 11/22/22 11/23/22 11/23/22 20:45 05:39 05:39 MCV 97.7 MCH 31.8 MCHC 32.5 RDW 14.4 Plt Count 106 L MPV 10.0 Absolute Nucleated RBC 0.000 Nucleated RBC % (auto) 0.0 Anion Gap 14 Estim Creat Clear Calc 26.3 Estimated GFR 20 POC Glucose 87 Fasting Glucose 71 Calcium 8.5 Blood Type Antibody Screen Antibody Identification Crossmatch (AHG) Enhanced Crossmatch 11/23/22 07:17 MCV MCH MCHC RDW Plt Count MPV Absolute Nucleated RBC Nucleated RBC % (auto) Anion Gap Estim Creat Clear Calc Estimated GFR POC Glucose 76 Fasting Glucose Calcium Blood Type Antibody Screen Antibody Identification Crossmatch (AHG) Enhanced Crossmatch Microbiology Microbiology Results: Microbiology 11/22/22 05:06 Blood Culture - Preliminary Blood - Venous No growth after 24 hours. 11/22/22 05:06 Blood Culture - Preliminary Blood - Venous No growth after 24 hours. Assessment and Plan (1) ESRD (end stage renal disease): Status: Acute Plan 67M PMH liver cirrhosis (?TOMLINSON), ESRD on HD, sick sinus s/p pacer, DM, chronic diastolic chf, pulm htn, COPD, depression, paroxysmal afib on eliquis, recent cdif 10/2022, presented with blood per rectum. acute blood loss anemia due to gi bleed holding eliquis iv ppi gi eval 3 units prbc 11/22/22, hgb 6.8, will order another unit 11/23/22 monitor cbc if stable plan for scope on 11/24/22, will make npo after midnight ESRD HD, nephro DM insulin sliding scale liver cirrhosis suspect TOMLINSON, history of morbid obesity and DM, now with significant weight loss over past 2 years gi eval chronic diastolic chf, pulm htn monitor for volume overload copd stable paroxysmal afib holding eliquis dvt prophylaxis - mechanical due to gi bleed full code reason for continued hospitalization:close monitoring of active bleed Time Spent With Patient Time: Total time managing care of this patient today ____ minutes. Quality Stroke Does the patient have a stroke diagnosis?: No VTE Prior VTE?: No VTE Risk Level:: Medical - moderate - high VTE Device Contraindication: N/A - Device Ordered VTE Drug Contraindication: Treatment Not Tolerated
[2022-11-23] MEDS: Metoprolol Tartrate 12.5 MG HALFTAB PO ×2 (08:49→20:27)
[2022-11-23] MEDS: Sevelamer Carbonate Tablet 800 MG TABLET PO ×3 (08:49→17:14)
[2022-11-23] MEDS: 0.9 % Sodium Chloride Flush 3 ML SYRINGE IVFLUSH ×2 (08:50→15:40)
--- NOTE | 2022-11-23 10:00 | PM.GICN ---
History of Present Illness Data of Consult Service Date: 11/23/22 Requesting physician: Rickie Barrow Primary Care Provider: Steve Nguyen MD HPI Reason for consult: acute GI blood loss anemia 67 year old with hx of CKD4, DM2, COPD, HTN, HLD, ZEYAD, AF on apixaban, cirrhosis who I am seeing for assessment for acute blood loss anemia. Patient noted few episodes of bloody maroon colored diarrheal stools last few days but no abdominal pain, no nausea, no vomiting, no reflux. Not been taking nsaids. He did SOB and slightly dizzy but no chest pain. sicne admission he is feeling better, not noted any further bleeding in hospital. CT scan with cirrhosis but no acute findings. (I had seen him previously and felt this was due to right heart failure as ascitic fluid with high TP level) HGB: 6 g/dl on admission, normally runs at 9 g/dl Review of Systems Review of Systems: Constitutional : No Weight loss, No Fever, No Chills ENT/Mouth : No sore throat, No Rhinorrhea Eyes: No Swelling, No Redness Cardiovascular : No Chest Pain, + SOB, No Edema Respiratory : No Cough, No Sputum, No Wheezing Gastrointestinal : see HPI Genitourinary : NO Dysuria, No Urinary Frequency, No Hematuria, No Urgency Musculoskeletal : No joint pain, No Myalgias, No Joint Swelling Skin : No Skin Lesions, No rash Neuro : + Weakness, No Numbness, No Dizziness, No Headache Psych : No Anxiety/Panic, No Depression Heme/Lymph: No Bruising, No Lymphadenopathy Endocrine : No Polyuria, No Polydipsia All other systems reviewed and are negative. [facility]LY [facility] Past Medical History Medical History Acute kidney injury superimposed on chronic kidney disease Afib Anasarca Anemia Anemia BPH (benign prostatic hyperplasia) Bradycardia Chronic kidney disease Cirrhosis CKD (chronic kidney disease) stage 4, GFR 15-29 ml/min Clostridioides difficile diarrhea COPD (chronic obstructive pulmonary disease) Depression, major Dermatitis associated with moisture from stool incontinence Diabetic retinopathy Diastolic heart failure Edema Essential thrombocytopenia Fistula Gout High cholesterol HTN (hypertension) Hypercholesterolemia Incomplete emptying of bladder due to benign prostatic hyperplasia Lumbar degenerative disc disease Lymphedema Obesity (BMI 30-39.9) Obstructive sleep apnea Osteoarthritis Pacemaker Pancytopenia Paroxysmal A-fib Peripheral neuropathy Peripheral vascular disease Pulmonary hypertension Pulmonary hypertension Scrotal edema SLE (systemic lupus erythematosus related syndrome) Type 2 diabetes mellitus with hyperglycemia Urinary retention with incomplete bladder emptying Venous stasis dermatitis Family History Family History Father Prostate cancer CVD (cardiovascular disease) Mother Hemochromatosis Brother Motor vehicle accident Sister CAD (coronary artery disease) Maternal Grandfather Myocardial infarction Surgical History Surgical History H/O prior ablation treatment History of bilateral cataract extraction History of bowel diversion surgery History of carpal tunnel release History of gastric surgery History of tonsillectomy Social History Social History Household Members: Spouse Housing: House Do you presently have visiting nurse or other home services: Yes Alcohol intake: never Patient Tobacco Use Status: Former Tobacco user Tobacco use type: Cigarette e-Cigarette/Vaping Use: Former Use Second Hand Smoke Exposure: Yes Substance Use Type: Marijuana service: No Current occupational status: retired Cognitive needs: Yes Hearing needs: Yes Vision needs: Yes Meds Allergies Allergy/AdvReac Type Severity Reaction Status Date / Time No Known Allergies Allergy Verified 10/13/22 17:04 [No Known Allergies*] Active Medications: Current Medications Glucose (Glucose Gel 15 Gm Gel..Gram.) 15 gm PO Q15M PRN; Protocol PRN Reason: per Hypoglycemia Standing Ord. Dextrose (D10) 250 mls @ 750 mls/hr IV Q15M PRN; Protocol PRN Reason: per Hypoglycemia Standing Ord. Insulin Human Lispro (Insulin Lispro 100 Unit/Ml 3 Ml Vial) 0 unit SUBCUT QIDACHS [facility]; Protocol Last Admin: 11/23/22 08:48 Dose: Not Given Metoprolol Tartrate (Metoprolol Tartrate 12.5 Mg Halftab) 12.5 mg PO BID [facility]; Protocol Last Admin: 11/23/22 08:49 Dose: 12.5 mg Pantoprazole Sodium (Pantoprazole Sodium 40 Mg/10 Ml Vial) 40 mg IVPUSH BID@0630,1630 [facility] Last Admin: 11/23/22 05:42 Dose: 40 mg Sevelamer Carbonate (Sevelamer Carbonate Tablet 800 Mg Tablet) 800 mg PO TIDWM [facility] Last Admin: 11/23/22 08:49 Dose: 800 mg Sodium Chloride (0.9 % Sodium Chloride Flush 3 Ml Syringe) 3 ml IVFLUSH QSHIFT [facility] Last Admin: 11/23/22 08:50 Dose: 3 ml Home Medications Medication Instructions Recorded Confirmed Last Taken Type calcitriol 0.5 mcg capsule 0.5 mcg PO TUTHSA 04/03/20 11/22/22 10/13/22 History albuterol sulfate 90 mcg/actuation 2 puff inhalation Q6H PRN 07/05/20 11/22/22 10/13/22 History aerosol inhaler (ProAir HFA) Shortness Of Breath Or Wheezing polyethylene glycol 3350 17 gram 17 g PO DAILY PRN Constipation 09/24/22 11/22/22 10/13/22 History oral powder packet (Miralax) terazosin 5 mg capsule 5 mg PO BEDTIME 10/13/22 11/22/22 10/13/22 History pravastatin 20 mg tablet 20 mg PO DAILY 11/22/22 11/22/22 Unknown History sevelamer carbonate 800 mg tablet 800 mg PO TIDWM 11/22/22 11/22/22 Unknown History Physical Exam Vital Signs: Vital Signs: Last Vital Signs Temp 98.7 F 11/23/22 09:12 Pulse 85 11/23/22 09:12 Resp 12 11/23/22 09:12 BP 103/58 L 11/23/22 09:12 Pulse Ox 98 11/23/22 07:08 O2 Del Method Room Air 11/23/22 07:08 BMI result Body Mass Index 27.8 EXAM: GENERAL: The patient is nontoxic appearing VITAL SIGNS:see workflow HEENT: Nonicteric sclerae, PERRLA, EOMI. Oropharynx clear. Moist mucous membranes. Conjunctivae appear well perfused. No thyroid mass. CHEST: Chest wall is nontender. HEART: irregular rate and rhythm without murmurs. LUNGS: Clear to auscultation bilaterally. ABDOMEN: Soft, positive bowel sounds, nontender, no organomegaly.no flank tenderness SKIN: No rash, no excessive bruising, petechiae, or purpura. dialysis catheter noted. NEUROLOGIC: Cranial nerves II-XII intact without motor/sensory deficit. Psych: Appearance: grossly normal Results Labs 11/23/22 05:39 11/23/22 05:39 Labs: Short CBC 11/23/22 Range/Units 05:39 WBC 5.3 (4.8-10.8) X10*3/uL Hgb 6.8 L* D (14.0-18.0) g/dl Hct 20.9 L* D (42.0-52.0) % Plt Count 106 L (160-400) X10*3/uL BMP 11/23/22 05:39 Sodium 137 Potassium 4.2 D Chloride 102 Carbon Dioxide 25 BUN 38 H Creatinine 3.05 H Calcium 8.5 Microbiology Microbiology Results: Microbiology 11/22/22 05:06 Blood - Venous Blood Culture - Preliminary No growth after 24 hours. 11/22/22 05:06 Blood - Venous Blood Culture - Preliminary No growth after [address] scan - abdomen: My impression: no acute findings, nodular liver Assessment and Plan (1) Acute GI bleeding: Status: Acute (2) Anemia: Status: Acute Plan 1/ Acute on chronic blood loss anemia, with overt GI bleeding, maybe upper wiht rapid transit as BUN is high vs lower bleed, ddx: PUD, gastritis, right sided colonic lesion, less likely variceal, dieulafoy PLAN: 1/ Fluid and PRBC resus as needed 2/ IV PPI 3/ allow clears 4/ plan for EGD and colo tomorrow, hopefully will be long enough for apixiban to be out of his system 5/ can hold on ABX for cirrhosis as he does not have any major ascites Time Spent With Patient Time: Total time managing care of this patient today ____ minutes. Procedures Date of Service Date of Service: 11/23/22
[2022-11-23 11:32] LABS: Glucose, Whole Blood 84 mg/dL (60-115)
--- NOTE | 2022-11-23 12:14 | PM.PNNEP ---
Subjective Subjective Date of Service: 11/24/22 Interval history: Events noted. at bedside. Status post transfusion. Physical Exam Vital Signs: Vital Signs: Last Vital Signs Temp 98.4 F 11/23/22 11:21 Pulse 84 11/23/22 11:21 Resp 20 11/23/22 11:21 BP 104/64 11/23/22 11:21 Pulse Ox 98 11/23/22 11:21 O2 Del Method Room Air 11/23/22 11:21 BMI result Body Mass Index 27.8 Comfortable Neck is supple Lung: Air entry equal Heart: S1,S2, normal. No rub Abd: Soft. BS + NS : Alert.No asterexis Ext: No edema Const: Other: Appearance: Alert. Oriented X3. No acute distress. Eyes: Pupils equal, round and reactive to light. ENT: Pharynx normal. Neck: Normal inspection. Neck supple. No lymph nodes noted. No crepitus CVS: Normal heart rate and rhythm. Pulses normal. Normal S1 and S2 Respiratory: No respiratory distress. Breath sounds normal. No Wheezing. No rales Abdomen: Soft and nontender. No rigidity. No distention. On rectal exam the stool is black mixed with fresh blood Skin: Skin warm and dry. Normal skin color. Normal skin turgor. Extremities: No lower extremity edema. No Lacerations. No Rash Neuro: Oriented X 3. No motor deficit. No sensory deficit. Moving all extremities. No slurred speech. CN 2 through 12 grossly intact Psych: calm, cooperative, normal affect Objective Data Labs 11/23/22 05:39 11/23/22 05:39 Labs: Laboratory Results - last 24 hr 11/22/22 11/22/22 11/22/22 05:06 12:31 18:05 WBC RBC Hgb Hct MCV MCH MCHC RDW Plt Count MPV Absolute Nucleated RBC Nucleated RBC % (auto) Sodium Potassium Chloride Carbon Dioxide Anion Gap BUN Creatinine Estim Creat Clear Calc Estimated GFR POC Glucose 73 88 Fasting Glucose Calcium Blood Type A Negative Antibody Screen POSITIVE Antibody Identification Warm Auto Antibody Crossmatch (AHG) See Detail Enhanced Crossmatch See Detail 11/22/22 11/23/22 11/23/22 20:45 05:39 05:39 WBC 5.3 RBC 2.14 L D Hgb 6.8 L* D Hct 20.9 L* D MCV 97.7 MCH 31.8 MCHC 32.5 RDW 14.4 Plt Count 106 L MPV 10.0 Absolute Nucleated RBC 0.000 Nucleated RBC % (auto) 0.0 Sodium 137 Potassium 4.2 D Chloride 102 Carbon Dioxide 25 Anion Gap 14 BUN 38 H Creatinine 3.05 H Estim Creat Clear Calc 26.3 Estimated GFR 20 POC Glucose 87 Fasting Glucose 71 Calcium 8.5 Blood Type Antibody Screen Antibody Identification Crossmatch (AHG) Enhanced Crossmatch 11/23/22 11/23/22 07:17 11:23 WBC RBC Hgb Hct MCV MCH MCHC RDW Plt Count MPV Absolute Nucleated RBC Nucleated RBC % (auto) Sodium Potassium Chloride Carbon Dioxide Anion Gap BUN Creatinine Estim Creat Clear Calc Estimated GFR POC Glucose 76 84 Fasting Glucose Calcium Blood Type Antibody Screen Antibody Identification Crossmatch (AHG) Enhanced Crossmatch Microbiology Microbiology Results: Microbiology 11/22/22 05:06 Blood - Venous Blood Culture - Preliminary No growth after 24 hours. 11/22/22 05:06 Blood - Venous Blood Culture - Preliminary No growth after 24 hours. Procedures Date of Service Date of Service: 11/24/22 Assessment & Plan Assessment and plan (1) Anemia: Status: Acute (2) ESRD (end stage renal disease): Status: Acute Plan Elderly man with renal failure currently on hemodialysis. Admitted with GI bleed. From a renal status. No overt signs or symptoms of uremia. We will dialyze him on Thursday schedule.. We will use a low-potassium bath to correct hyperkalemia. Transfuse packed red blood cells as indicated. Concur with GI workup for the GI bleed. Await endoscopy tomorrow Time Spent With Patient Time: Total time managing care of this patient today ____ minutes. Progress Note: Quality Stroke Does the patient have a stroke diagnosis?: No
[2022-11-23 14:10] LABS: Appearance Urine Turbid; Color Urine Yellow; Glucose Urine UA Negative (Negative); Leukocyte Esterase Urine Large (3+) (Negative); Nitrite Urine Negative (Negative); Specific Gravity - Urine 1.015 (1.005-1.025); UMIC TRIGGER UACC YES; Urine Blood Moderate (2+) (Negative); Urine Ketones Negative (Negative); Urine Protein 100 (2+) mg/dL (Neg-Trace)
[2022-11-23 14:15] LABS: Bacteria Urine 4+ (None Seen); Hyaline Casts Urine 0-2 /LPF (0-2); Squamous Epithelial Cell Urine 0-2 /HPF (0-2); UACC Culture Trigger YES; WBC Urine >50 /HPF (0-5)
[2022-11-23 15:43] LABS: Glucose, Whole Blood 132 mg/dL (60-115)
--- NOTE | 2022-11-23 16:08 | MHC.CM.PN ---
PT REPORTS HE LIVES WITH HIS AND IS INDEPENDENT WITH SELF CARE PT SAYS HE IS ACTIVE WITH [facility] AND GOES TO [facility] FOR HD HIS PROVIDES TRANSPORT PT HAS A WALKER, CANE, CPAP, AND COMMODE AT HOME HCP ON FILE PCP: TIMMY WALKER IMM DELIVERED DCP: HOME RESUME [facility] AND OP HD TO TRANSPORT
[2022-11-23] MEDS: PEG 3350/Na Sulf,Bicarb,Cl/KCL 4,000 ML SOLN.RECON 4000 ML PO (17:15)
[2022-11-23 20:38] LABS: Glucose, Whole Blood 93 mg/dL (60-115)
[2022-11-24] VITALS (12 sets, daily range): BP systolic 100–129; BP diastolic 50–70; PULSE 67–94; RESP 16–20; TEMP 36.1–36.8; O2SAT 95–100; BMI 27.8
[2022-11-24] MEDS: Pantoprazole Sodium 40 MG/10 ML VIAL IVPUSH (05:18)
[2022-11-24 06:53] LABS: Hematocrit 22.8 % (42.0-52.0); Hemoglobin 7.7 g/dl (14.0-18.0); Mean Corpuscular HGB Conc 33.8 g/dl (31.0-36.0); Mean Corpuscular Hemoglobin 32.1 pg (27.0-33.0); Mean Platelet Volume 9.8 fL (9.4-12.4); Platelet Count 107 X10*3/uL (160-400); Red Cell Distribution Width 14.5 % (11.0-16.0)
[2022-11-24 07:01] LABS: Anion Gap 14 (12-20); Blood Urea Nitrogen 44 mg/dL (9-16); Calcium 8.4 mg/dL (8.4-10.2); Carbon Dioxide 25 mmol/L (22-29); Chloride 99 mmol/L (96-108); Creatinine Clr Calc Pharmacy 20.6; Estimated Glomerular Filt Rate 15; Glucose Fasting 77 mg/dL (60-99); Potassium 3.9 mmol/L (3.3-5.1); Sodium 134 mmol/L (135-145)
[2022-11-24 07:16] LABS: Glucose, Whole Blood 84 mg/dL (60-115)
--- NOTE | 2022-11-24 08:24 | P.PNIM_ITS ---
Subjective Subjective Date of Service: 11/24/22 Interval History: lolita eblood during prep Physical Exam Vital Signs: Vital Signs: Last Vital Signs Temp 98.1 F 11/24/22 07:29 Pulse 85 11/24/22 07:29 Resp 16 11/24/22 07:29 BP 126/68 11/24/22 07:29 Pulse Ox 99 11/24/22 07:29 O2 Del Method Room Air 11/24/22 07:29 BMI result Body Mass Index 27.8 Comfortable Neck is supple Lung: Air entry equal Heart: S1,S2, normal. No rub Abd: Soft. BS + NS : Alert.No asterexis Ext: No edema Const: Other: Appearance: Alert. Oriented X3. No acute distress. Eyes: Pupils equal, round and reactive to light. ENT: Pharynx normal. Neck: Normal inspection. Neck supple. No lymph nodes noted. No crepitus CVS: Normal heart rate and rhythm. Pulses normal. Normal S1 and S2 Respiratory: No respiratory distress. Breath sounds normal. No Wheezing. No rales Abdomen: Soft and nontender. No rigidity. No distention. On rectal exam the stool is black mixed with fresh blood Skin: Skin warm and dry. Normal skin color. Normal skin turgor. Extremities: No lower extremity edema. No Lacerations. No Rash Neuro: Oriented X 3. No motor deficit. No sensory deficit. Moving all extremities. No slurred speech. CN 2 through 12 grossly intact Psych: calm, cooperative, normal affect Objective Data Active Medications Glucose (Glucose Gel 15 Gm Gel..Gram.) 15 gm PO Q15M PRN; Protocol PRN Reason: per Hypoglycemia Standing Ord. Dextrose (D10) 250 mls @ 750 mls/hr IV Q15M PRN; Protocol PRN Reason: per Hypoglycemia Standing Ord. Insulin Human Lispro (Insulin Lispro 100 Unit/Ml 3 Ml Vial) 0 unit SUBCUT QIDACHS [facility]; Protocol Last Admin: 11/24/22 07:54 Dose: Not Given Documented By: BRADLY Non-Admin Reason: No Insulin Coverage Metoprolol Tartrate (Metoprolol Tartrate 12.5 Mg Halftab) 12.5 mg PO BID [facility]; Protocol Last Admin: 11/24/22 07:55 Dose: Not Given Documented By: BRADLY Non-Admin Reason: NPO Pantoprazole Sodium (Pantoprazole Sodium 40 Mg/10 Ml Vial) 40 mg IVPUSH BID@0630,1630 [facility] Last Admin: 11/24/22 05:18 Dose: 40 mg Documented By: BROCK Sevelamer Carbonate (Sevelamer Carbonate Tablet 800 Mg Tablet) 800 mg PO TIDWM [facility] Last Admin: 11/24/22 07:54 Dose: Not Given Documented By: BRADLY Non-Admin Reason: NPO Sodium Chloride (0.9 % Sodium Chloride Flush 3 Ml Syringe) 3 ml IVFLUSH QSHIFT [facility] Last Admin: 11/24/22 01:48 Dose: Not Given Documented By: BROCK Non-Admin Reason: Patient Asleep Labs 11/24/22 06:01 11/24/22 06:01 Labs: Laboratory Results - last 24 hr 11/22/22 11/23/22 11/23/22 05:06 11:23 14:00 MCV MCH MCHC RDW Plt Count MPV Absolute Nucleated RBC Nucleated RBC % (auto) Anion Gap Estim Creat Clear Calc Estimated GFR POC Glucose 84 Fasting Glucose Calcium Urine Color Yellow Urine Appearance Turbid Urine pH 6.0 Ur Specific [place] 1.015 Urine Protein 100 (2+) H Urine Glucose (UA) Negative Urine Ketones Negative Urine Blood Moderate (2+) H Urine Nitrite Negative Ur Leukocyte Esterase Large (3+) H Urine RBC 6-10 H Urine WBC >50 H Ur Squamous Epith Cells 0-2 Urine Bacteria 4+ Hyaline Casts 0-2 Blood Type A Negative Antibody Screen POSITIVE Antibody Identification Warm Auto Antibody Crossmatch (AHG) See Detail Enhanced Crossmatch See Detail 11/23/22 11/23/22 11/24/22 15:22 19:48 06:01 MCV 95.0 MCH 32.1 MCHC 33.8 RDW 14.5 Plt Count 107 L MPV 9.8 Absolute Nucleated RBC 0.000 Nucleated RBC % (auto) 0.0 Anion Gap Estim Creat Clear Calc Estimated GFR POC Glucose 132 H 93 Fasting Glucose Calcium Urine Color Urine Appearance Urine pH Ur Specific [place] Urine Protein Urine Glucose (UA) Urine Ketones Urine Blood Urine Nitrite Ur Leukocyte Esterase Urine RBC Urine WBC Ur Squamous Epith Cells Urine Bacteria Hyaline Casts Blood Type Antibody Screen Antibody Identification Crossmatch (AHG) Enhanced Crossmatch 11/24/22 11/24/22 06:01 07:12 MCV MCH MCHC RDW Plt Count MPV Absolute Nucleated RBC Nucleated RBC % (auto) Anion Gap 14 Estim Creat Clear Calc 20.6 Estimated GFR 15 POC Glucose 84 Fasting Glucose 77 Calcium 8.4 Urine Color Urine Appearance Urine pH Ur Specific [place] Urine Protein Urine Glucose (UA) Urine Ketones Urine Blood Urine Nitrite Ur Leukocyte Esterase Urine RBC Urine WBC Ur Squamous Epith Cells Urine Bacteria Hyaline Casts Blood Type Antibody Screen Antibody Identification Crossmatch (AHG) Enhanced Crossmatch Microbiology Microbiology Results: Microbiology 11/23/22 18:15 Urine Culture - Preliminary Urine clean catch - Urine keys top Culture in progress. 11/22/22 05:06 Blood Culture - Preliminary Blood - Venous No growth after 48 hours. 11/22/22 05:06 Blood Culture - Preliminary Blood - Venous No growth after 48 hours. Assessment and Plan (1) ESRD (end stage renal disease): Status: Acute Plan 67M PMH liver cirrhosis (?TOMLINSON), ESRD on HD, sick sinus s/p pacer, DM, chronic diastolic chf, pulm htn, COPD, depression, paroxysmal afib on eliquis, recent cdif 10/2022, presented with blood per rectum. acute blood loss anemia due to gi bleed holding eliquis iv ppi gi eval s/p 4 units prbc so far monitor cbc plan for egd/colono today, 11/24/22 ESRD HD, nephro DM insulin sliding scale liver cirrhosis suspect TOMLINSON, history of morbid obesity and DM, now with significant weight loss over past 2 years gi following chronic diastolic chf, pulm htn monitor for volume overload copd stable paroxysmal afib holding eliquis dvt prophylaxis - mechanical due to gi bleed full code reason for continued hospitalization:close monitoring of active bleed Time Spent With Patient Time: Total time managing care of this patient today ____ minutes. Quality Stroke Does the patient have a stroke diagnosis?: No VTE Prior VTE?: No VTE Risk Level:: Medical - moderate - high VTE Device Contraindication: N/A - Device Ordered VTE Drug Contraindication: Treatment Not Tolerated
[2022-11-24] MEDS: 0.9 % Sodium Chloride Flush 3 ML SYRINGE IVFLUSH ×2 (09:13→17:16)
--- NOTE | 2022-11-24 09:32 | PC.NURSE ---
Pt. prepping for colonoscopy, occasional incontinence. Foam dressings on sacrum and L buttock soiled, dressings changed to protect integrity of skin. Barrier cream applied. Pt. is dry, will continue to check for incontinence.
--- NOTE | 2022-11-24 09:45 | P.PNNP_ITS ---
Subjective Subjective Date of Service: 11/25/22 Interval history: Events noted Physical Exam Vital Signs: Vital Signs: Last Vital Signs Temp 98.1 F 11/24/22 07:29 Pulse 85 11/24/22 07:29 Resp 16 11/24/22 07:29 BP 126/68 11/24/22 07:29 Pulse Ox 99 11/24/22 07:29 O2 Del Method Room Air 11/24/22 07:29 BMI result Body Mass Index 27.8 Const: Other: Appearance: Alert. Oriented X3. No acute distress. Eyes: Pupils equal, round and reactive to light. ENT: Pharynx normal. Neck: Normal inspection. Neck supple. No lymph nodes noted. No crepitus CVS: Normal heart rate and rhythm. Pulses normal. Normal S1 and S2 Respiratory: No respiratory distress. Breath sounds normal. No Wheezing. No rales Abdomen: Soft and nontender. No rigidity. No distention. On rectal exam the stool is black mixed with fresh blood Skin: Skin warm and dry. Normal skin color. Normal skin turgor. Extremities: No lower extremity edema. No Lacerations. No Rash Neuro: Oriented X 3. No motor deficit. No sensory deficit. Moving all extr emities. No slurred speech. CN 2 through 12 grossly intact Psych: calm, cooperative, normal affect Objective Data Labs 11/24/22 06:01 11/24/22 06:01 Labs: Laboratory Results - last 24 hr 11/22/22 11/23/22 11/23/22 05:06 11:23 14:00 WBC RBC Hgb Hct MCV MCH MCHC RDW Plt Count MPV Absolute Nucleated RBC Nucleated RBC % (auto) Sodium Potassium Chloride Carbon Dioxide Anion Gap BUN Creatinine Estim Creat Clear Calc Estimated GFR POC Glucose 84 Fasting Glucose Calcium Urine Color Yellow Urine Appearance Turbid Urine pH 6.0 Ur Specific [place] 1.015 Urine Protein 100 (2+) H Urine Glucose (UA) Negative Urine Ketones Negative Urine Blood Moderate (2+) H Urine Nitrite Negative Ur Leukocyte Esterase Large (3+) H Urine RBC 6-10 H Urine WBC >50 H Ur Squamous Epith Cells 0-2 Urine Bacteria 4+ Hyaline Casts 0-2 Blood Type A Negative Antibody Screen POSITIVE Antibody Identification Warm Auto Antibody Crossmatch (AHG) See Detail Enhanced Crossmatch See Detail 11/23/22 11/23/22 11/24/22 15:22 19:48 06:01 WBC 5.0 RBC 2.40 L Hgb 7.7 L Hct 22.8 L MCV 95.0 MCH 32.1 MCHC 33.8 RDW 14.5 Plt Count 107 L MPV 9.8 Absolute Nucleated RBC 0.000 Nucleated RBC % (auto) 0.0 Sodium Potassium Chloride Carbon Dioxide Anion Gap BUN Creatinine Estim Creat Clear Calc Estimated GFR POC Glucose 132 H 93 Fasting Glucose Calcium Urine Color Urine Appearance Urine pH Ur Specific [place] Urine Protein Urine Glucose (UA) Urine Ketones Urine Blood Urine Nitrite Ur Leukocyte Esterase Urine RBC Urine WBC Ur Squamous Epith Cells Urine Bacteria Hyaline Casts Blood Type Antibody Screen Antibody Identification Crossmatch (AHG) Enhanced Crossmatch 11/24/22 11/24/22 06:01 07:12 WBC RBC Hgb Hct MCV MCH MCHC RDW Plt Count MPV Absolute Nucleated RBC Nucleated RBC % (auto) Sodium 134 L Potassium 3.9 Chloride 99 Carbon Dioxide 25 Anion Gap 14 BUN 44 H Creatinine 3.89 H Estim Creat Clear Calc 20.6 Estimated GFR 15 POC Glucose 84 Fasting Glucose 77 Calcium 8.4 Urine Color Urine Appearance Urine pH Ur Specific [place] Urine Protein Urine Glucose (UA) Urine Ketones Urine Blood Urine Nitrite Ur Leukocyte Esterase Urine RBC Urine WBC Ur Squamous Epith Cells Urine Bacteria Hyaline Casts Blood Type Antibody Screen Antibody Identification Crossmatch (AHG) Enhanced Crossmatch Microbiology Microbiology Results: Microbiology 11/23/22 18:15 Urine clean catch - Urine keys top Urine Culture - Preliminary Culture in progress. 11/22/22 05:06 Blood - Venous Blood Culture - Preliminary No growth after 48 hours. 11/22/22 05:06 Blood - Venous Blood Culture - Preliminary No growth after 48 hours. Procedures Date of Service Date of Service: 11/25/22 Assessment & Plan Assessment and plan (1) Anemia: Status: Acute (2) ESRD (end stage renal disease): Status: Acute Plan Elderly man with renal failure currently on hemodialysis. Admitted with GI bleed. No overt signs or symptoms of uremia. We will dialyze him on Thursday schedule.. We will use a low-potassium bath to correct hyperkalemia. Transfuse packed red blood cells as indicated. Concur with GI workup for the GI bleed. Await endoscopy Resume MAURICE Time Spent With Patient Time: Total time managing care of this patient today ____ minutes. Progress Note: Quality Stroke Does the patient have a stroke diagnosis?: No
--- NOTE | 2022-11-24 10:33 | MHC.CM.PN ---
EMR reviewed and per MD rounds, pt not medically cleared for D/C at this time, anticipating need for endoscopy. CM will continue to follow.
[2022-11-24 11:03] LABS: Glucose, Whole Blood 80 mg/dL (60-115)
--- NOTE | 2022-11-24 12:26 | MHC.CLN ---
RE: CONSULT PT TRIGGERS FOR 26.5% SIGNIFICANT WT LOSS X 6 MONTHS, HOWEVER WITH CHF AND ESRD ON HD AND FLUID MAY BE CONTRIBUTING FACTOR IN WT LOSS. PT REMAINS OVER WT FOR HT AND APPEARS TO BE WELL NOURISHED PT IS CURRENTLY NPO WHEN DIET TO ADVANCE; RECOMMEND ADDING ENSURE CLEAR TID AND THAO TO INCREASE KCALS AND PROMOTE WOUND HEALING RECOMMEND 2200DM 2GM NA LOW PHOS LOW K+ DIET MONITOR FOR DIET ADVANCEMENT AND WOUND IMPROVEMENT SEE ALSO FULL CLINICAL NUTRITION ASSESSMENT
--- NOTE | 2022-11-24 12:37 | P.CONAN_ITS ---
HPI - Anesthesia Eval Consult details Narrative: 67 yo male patient for EGD, Colonoscopy PMF Active Problems Active Problems: All Active Problems (Updated 11/24/22 @ 12:30 by Lena Okeefe MD) ESRD (end stage renal disease) (Acute) Acute GI bleeding (Acute) Anemia (Acute) S/p 4 units PRBC since 11/22/22. Hct today 22.8. Baseline Hct 27 Hospital discharge follow-up (Acute) Visit for wound check (Acute) Bowel perforation (Acute) Constipation (Acute) Chest pain (Acute) Eczema (Acute) Recurrent major depression (Acute) Lymphedema (Acute) Skin ulcer of multiple sites of lower extremity (Acute) Swelling of both lower extremities (Acute) GERD (gastroesophageal reflux disease) (Acute) Abdominal distension (Acute) Osteoarthritis (Acute) Hypercholesterolemia (Acute) Peripheral vascular disease (Acute) Gout (Acute) ZEYAD. Uses CPAP ?UTI Past Medical History Medical History (Updated 11/24/22 @ 13:17 by Lena Okeefe MD) Acute kidney injury superimposed on chronic kidney disease Afib Anasarca Anemia BPH (benign prostatic hyperplasia) Bradycardia Chronic kidney disease Cirrhosis CKD (chronic kidney disease) stage 4, GFR 15-29 ml/min Clostridioides difficile diarrhea COPD (chronic obstructive pulmonary disease) Depression, major Dermatitis associated with moisture from stool incontinence Diabetic retinopathy Diastolic heart failure Edema Essential thrombocytopenia Fistula Gout High cholesterol HTN (hypertension) Hypercholesterolemia Incomplete emptying of bladder due to benign prostatic hyperplasia Lumbar degenerative disc disease Lymphedema Obesity (BMI 30-39.9) Obstructive sleep apnea Osteoarthritis Pacemaker Pancytopenia Paroxysmal A-fib Peripheral neuropathy Peripheral vascular disease Pulmonary hypertension Pulmonary hypertension Scrotal edema SLE (systemic lupus erythematosus related syndrome) Type 2 diabetes mellitus with hyperglycemia Urinary retention with incomplete bladder emptying Venous stasis dermatitis Family History Family History Father Prostate cancer CVD (cardiovascular disease) Mother Hemochromatosis Brother Motor vehicle accident Sister CAD (coronary artery disease) Maternal Grandfather Myocardial infarction Family history of problems with anesthesia: No Surgical History Surgical History H/O prior ablation treatment History of bilateral cataract extraction History of bowel diversion surgery History of carpal tunnel release History of gastric surgery History of tonsillectomy History of Problems with Anesthesia: No Social History Social History Household Members: Spouse Housing: House Do you presently have visiting nurse or other home services: Yes Alcohol intake: never Patient Tobacco Use Status: Former Tobacco user Tobacco use type: Cigarette e-Cigarette/Vaping Use: Former Use Second Hand Smoke Exposure: Yes Substance Use Type: Marijuana service: No Current occupational status: retired Cognitive needs: Yes Hearing needs: Yes Vision needs: Yes Meds Allergies Allergy/AdvReac Type Severity Reaction Status Date / Time No Known Allergies Allergy Verified 10/13/22 17:04 [No Known Allergies*] Active Medications: Current Medications Epoetin Duncan (Epoetin Duncan 10,000 Unit/Ml Vial) 10,000 unit SUBCUT TuTa@1645 [facility] Glucose (Glucose Gel 15 Gm Gel..Gram.) 15 gm PO Q15M PRN; Protocol PRN Reason: per Hypoglycemia Standing Ord. Dextrose (D10) 250 mls @ 750 mls/hr IV Q15M PRN; Protocol PRN Reason: per Hypoglycemia Standing Ord. Insulin Human Lispro (Insulin Lispro 100 Unit/Ml 3 Ml Vial) 0 unit SUBCUT QIDACHS [facility]; Protocol Last Admin: 11/24/22 11:06 Dose: Not Given Metoprolol Tartrate (Metoprolol Tartrate 12.5 Mg Halftab) 12.5 mg PO BID [facility]; Protocol Last Admin: 11/24/22 07:55 Dose: Not Given Pantoprazole Sodium (Pantoprazole Sodium 40 Mg/10 Ml Vial) 40 mg IVPUSH BID@0630,1630 [facility] Last Admin: 11/24/22 05:18 Dose: 40 mg Sevelamer Carbonate (Sevelamer Carbonate Tablet 800 Mg Tablet) 800 mg PO TIDWM [facility] Last Admin: 11/24/22 11:06 Dose: Not Given Sodium Chloride (0.9 % Sodium Chloride Flush 3 Ml Syringe) [facility] Last Admin: 11/24/22 09:13 Dose: 3 ml Home Medications Medication Instructions Recorded Confirmed Last Taken Type calcitriol 0.5 mcg capsule 0.5 mcg PO TUTHSA 04/03/20 11/22/22 10/13/22 History albuterol sulfate 90 mcg/actuation 2 puff inhalation Q6H PRN 07/05/20 11/22/22 10/13/22 History aerosol inhaler (ProAir HFA) Shortness Of Breath Or Wheezing polyethylene glycol 3350 17 gram 17 g PO DAILY PRN Constipation 09/24/22 11/22/22 10/13/22 History oral powder packet (Miralax) terazosin 5 mg capsule 5 mg PO BEDTIME 10/13/22 11/22/22 10/13/22 History pravastatin 20 mg tablet 20 mg PO DAILY 11/22/22 11/22/22 Unknown History sevelamer carbonate 800 mg tablet 800 mg PO TIDWM 11/22/22 11/22/22 Unknown History Exam Exam Date and Time: November 24, 2022 1237 Height,Weight and Vital Signs: Height 5 ft 11 in Weight 90.5 kg Last Vital Signs Temp 97 F 11/24/22 11:38 Pulse 83 11/24/22 11:38 Resp 20 11/24/22 11:38 BP 126/68 11/24/22 11:38 Pulse Ox 97 11/24/22 11:38 O2 Del Method Room Air 11/24/22 11:38 Pertinent Lab Results Pertinent Lab Results: Laboratory Tests 11/22/22 11/22/22 11/22/22 05:06 05:06 05:06 WBC RBC Hgb Hct MCV MCH MCHC RDW Plt Count MPV Immature Gran % (Auto) Neut % (Auto) Lymph % (Auto) [place] % (Auto) Eos % (Auto) Baso % (Auto) Lymph # (Auto) [place] # (Auto) Eos # (Auto) Baso # (Auto) Abs Immat Gran (auto) Absolute Neuts (auto) Absolute Nucleated RBC Nucleated RBC % (auto) PT 15.2 H INR 1.3 H Sodium 138 Potassium 5.3 H D Chloride 99 Carbon Dioxide 23 Anion Gap 21 H BUN 73 H Creatinine 4.88 H* Estim Creat Clear Calc 16.4 Estimated GFR 12 POC Glucose Random Glucose 121 H Fasting Glucose Lactic Acid 4.5 H* Lactic Acid F/U @ 2Hr Calcium 8.5 Total Bilirubin 0.6 Direct Bilirubin 0.3 AST 11 ALT 8 Alkaline Phosphatase 109 Troponin I High Sens Total Protein 5.5 L Albumin 2.9 L Urine Color Urine Appearance Urine pH Ur Specific [place] Urine Protein Urine Glucose (UA) Urine Ketones Urine Blood Urine Nitrite Ur Leukocyte Esterase Urine RBC Urine WBC Ur Squamous Epith Cells Urine Bacteria Hyaline Casts Stool Occult Blood Blood Type Antibody Screen Antibody Identification Crossmatch ([facility]G) Enhanced Crossmatch 11/22/22 11/22/22 11/22/22 05:06 05:06 05:07 WBC RBC Hgb Hct MCV MCH MCHC RDW Plt Count MPV Immature Gran % (Auto) Neut % (Auto) Lymph % (Auto) [place] % (Auto) Eos % (Auto) Baso % (Auto) Lymph # (Auto) [place] # (Auto) Eos # (Auto) Baso # (Auto) Abs Immat Gran (auto) Absolute Neuts (auto) Absolute Nucleated RBC Nucleated RBC % (auto) PT INR Sodium Potassium Chloride Carbon Dioxide Anion Gap BUN Creatinine Estim Creat Clear Calc Estimated GFR POC Glucose Random Glucose Fasting Glucose Lactic Acid Lactic Acid F/U @ 2Hr Calcium Total Bilirubin Direct Bilirubin AST ALT Alkaline Phosphatase Troponin I High Sens 33.3 Total Protein Albumin Urine Color Urine Appearance Urine pH Ur Specific [place] Urine Protein Urine Glucose (UA) Urine Ketones Urine Blood Urine Nitrite Ur Leukocyte Esterase Urine RBC Urine WBC Ur Squamous Epith Cells Urine Bacteria Hyaline Casts Stool Occult Blood POSITIVE Blood Type A Negative Antibody Screen POSITIVE Antibody Identification Warm Auto Antibody Crossmatch (AHG) See Detail Enhanced Crossmatch See Detail 11/22/22 11/22/22 11/22/22 05:08 07:41 12:31 WBC 6.4 RBC 1.77 L D Hgb 5.6 L* D Hct 17.3 L* D MCV 97.7 MCH 31.6 MCHC 32.4 RDW 14.1 Plt Count 114 L D MPV 9.5 Immature Gran % (Auto) 0.5 H Neut % (Auto) 83.5 H Lymph % (Auto) 9.0 L [place] % (Auto) 6.7 Eos % (Auto) 0.0 Baso % (Auto) 0.3 Lymph # (Auto) 0.6 L [place] # (Auto) 0.4 Eos # (Auto) 0.0 Baso # (Auto) 0.0 Abs Immat Gran (auto) 0.03 Absolute Neuts (auto) 5.4 Absolute Nucleated RBC 0.000 Nucleated RBC % (auto) 0.0 PT INR Sodium Potassium Chloride Carbon Dioxide Anion Gap BUN Creatinine Estim Creat Clear Calc Estimated GFR POC Glucose 73 Random Glucose Fasting Glucose Lactic Acid Lactic Acid F/U @ 2Hr 1.5 Calcium Total Bilirubin Direct Bilirubin AST ALT Alkaline Phosphatase Troponin I High Sens Total Protein Albumin Urine Color Urine Appearance Urine pH Ur Specific [place] Urine Protein Urine Glucose (UA) Urine Ketones Urine Blood Urine Nitrite Ur Leukocyte Esterase Urine RBC Urine WBC Ur Squamous Epith Cells Urine Bacteria Hyaline Casts Stool Occult Blood Blood Type Antibody Screen Antibody Identification Crossmatch ([facility]) Enhanced Crossmatch 11/22/22 11/22/22 11/23/22 18:05 20:45 05:39 WBC 5.3 RBC 2.14 L D Hgb 6.8 L* D Hct 20.9 L* D MCV 97.7 MCH 31.8 MCHC 32.5 RDW 14.4 Plt Count 106 L MPV 10.0 Immature Gran % (Auto) Neut % (Auto) Lymph % (Auto) [place] % (Auto) Eos % (Auto) Baso % (Auto) Lymph # (Auto) [place] # (Auto) Eos # (Auto) Baso # (Auto) Abs Immat Gran (auto) Absolute Neuts (auto) Absolute Nucleated RBC 0.000 Nucleated RBC % (auto) 0.0 PT INR Sodium Potassium Chloride Carbon Dioxide Anion Gap BUN Creatinine Estim Creat Clear Calc Estimated GFR POC Glucose 88 87 Random Glucose Fasting Glucose Lactic Acid Lactic Acid F/U @ 2Hr Calcium Total Bilirubin Direct Bilirubin AST ALT Alkaline Phosphatase Troponin I High Sens Total Protein Albumin Urine Color Urine Appearance Urine pH Ur Specific [place] Urine Protein Urine Glucose (UA) Urine Ketones Urine Blood Urine Nitrite Ur Leukocyte Esterase Urine RBC Urine WBC Ur Squamous Epith Cells Urine Bacteria Hyaline Casts Stool Occult Blood Blood Type Antibody Screen Antibody Identification Crossmatch ([facility]) Enhanced Crossmatch 11/23/22 11/23/22 11/23/22 05:39 07:17 11:23 WBC RBC Hgb Hct MCV MCH MCHC RDW Plt Count MPV Immature Gran % (Auto) Neut % (Auto) Lymph % (Auto) [place] % (Auto) Eos % (Auto) Baso % (Auto) Lymph # (Auto) [place] # (Auto) Eos # (Auto) Baso # (Auto) Abs Immat Gran (auto) Absolute Neuts (auto) Absolute Nucleated RBC Nucleated RBC % (auto) PT INR Sodium 137 Potassium 4.2 D Chloride 102 Carbon Dioxide 25 Anion Gap 14 BUN 38 H Creatinine 3.05 H Estim Creat Clear Calc 26.3 Estimated GFR 20 POC Glucose 76 84 Random Glucose Fasting Glucose 71 Lactic Acid Lactic Acid F/U @ 2Hr Calcium 8.5 Total Bilirubin Direct Bilirubin AST ALT Alkaline Phosphatase Troponin I High Sens Total Protein Albumin Urine Color Urine Appearance Urine pH Ur Specific [place] Urine Protein Urine Glucose (UA) Urine Ketones Urine Blood Urine Nitrite Ur Leukocyte Esterase Urine RBC Urine WBC Ur Squamous Epith Cells Urine Bacteria Hyaline Casts Stool Occult Blood Blood Type Antibody Screen Antibody Identification Crossmatch ([facility]) Enhanced Crossmatch 11/23/22 11/23/22 11/23/22 14:00 15:22 19:48 WBC RBC Hgb Hct MCV MCH MCHC RDW Plt Count MPV Immature Gran % (Auto) Neut % (Auto) Lymph % (Auto) [place] % (Auto) Eos % (Auto) Baso % (Auto) Lymph # (Auto) [place] # (Auto) Eos # (Auto) Baso # (Auto) Abs Immat Gran (auto) Absolute Neuts (auto) Absolute Nucleated RBC Nucleated RBC % (auto) PT INR Sodium Potassium Chloride Carbon Dioxide Anion Gap BUN Creatinine Estim Creat Clear Calc Estimated GFR POC Glucose 132 H 93 Random Glucose Fasting Glucose Lactic Acid Lactic Acid F/U @ 2Hr Calcium Total Bilirubin Direct Bilirubin AST ALT Alkaline Phosphatase Troponin I High Sens Total Protein Albumin Urine Color Yellow Urine Appearance Turbid Urine pH 6.0 Ur Specific [place] 1.015 Urine Protein 100 (2+) H Urine Glucose (UA) Negative Urine Ketones Negative Urine Blood Moderate (2+) H Urine Nitrite Negative Ur Leukocyte Esterase Large (3+) H Urine RBC 6-10 H Urine WBC >50 H Ur Squamous Epith Cells 0-2 Urine Bacteria 4+ Hyaline Casts 0-2 Stool Occult Blood Blood Type Antibody Screen Antibody Identification Crossmatch ([facility]) Enhanced Crossmatch 11/24/22 11/24/22 11/24/22 06:01 06:01 07:12 WBC 5.0 RBC 2.40 L Hgb 7.7 L Hct 22.8 L MCV 95.0 MCH 32.1 MCHC 33.8 RDW 14.5 Plt Count 107 L MPV 9.8 Immature Gran % (Auto) Neut % (Auto) Lymph % (Auto) [place] % (Auto) Eos % (Auto) Baso % (Auto) Lymph # (Auto) [place] # (Auto) Eos # (Auto) Baso # (Auto) Abs Immat Gran (auto) Absolute Neuts (auto) Absolute Nucleated RBC 0.000 Nucleated RBC % (auto) 0.0 PT INR Sodium 134 L Potassium 3.9 Chloride 99 Carbon Dioxide 25 Anion Gap 14 BUN 44 H Creatinine 3.89 H Estim Creat Clear Calc 20.6 Estimated GFR 15 POC Glucose 84 Random Glucose Fasting Glucose 77 Lactic Acid Lactic Acid F/U @ 2Hr Calcium 8.4 Total Bilirubin Direct Bilirubin AST ALT Alkaline Phosphatase Troponin I High Sens Total Protein Albumin Urine Color Urine Appearance Urine pH Ur Specific [place] Urine Protein Urine Glucose (UA) Urine Ketones Urine Blood Urine Nitrite Ur Leukocyte Esterase Urine RBC Urine WBC Ur Squamous Epith Cells Urine Bacteria Hyaline Casts Stool Occult Blood Blood Type Antibody Screen Antibody Identification Crossmatch ([facility]) Enhanced Crossmatch 11/24/22 11:00 WBC RBC Hgb Hct MCV MCH MCHC RDW Plt Count MPV Immature Gran % (Auto) Neut % (Auto) Lymph % (Auto) [place] % (Auto) Eos % (Auto) Baso % (Auto) Lymph # (Auto) [place] # (Auto) Eos # (Auto) Baso # (Auto) Abs Immat Gran (auto) Absolute Neuts (auto) Absolute Nucleated RBC Nucleated RBC % (auto) PT INR Sodium Potassium Chloride Carbon Dioxide Anion Gap BUN Creatinine Estim Creat Clear Calc Estimated GFR POC Glucose 80 Random Glucose Fasting Glucose Lactic Acid Lactic Acid F/U @ 2Hr Calcium Total Bilirubin Direct Bilirubin AST ALT Alkaline Phosphatase Troponin I High Sens Total Protein Albumin Urine Color Urine Appearance Urine pH Ur Specific [place] Urine Protein Urine Glucose (UA) Urine Ketones Urine Blood Urine Nitrite Ur Leukocyte Esterase Urine RBC Urine WBC Ur Squamous Epith Cells Urine Bacteria Hyaline Casts Stool Occult Blood Blood Type Antibody Screen Antibody Identification Crossmatch ([facility]) Enhanced Crossmatch Airway Mallampati Class: III TM Dist: >3cm Neck ROM: Full Loose/Missing/Broken Teeth: Yes (Poor dentition. Many missing. Denies loose) Heart: Irregularly irregular Lungs: CTAB Assessment and Plan Assessment Anesthesia Assessment: Anesthesia Plan Discussed and Chart Reviewed Final Anesthetic Review Family History of Problems with Anesthesia: No History of Problems with Anesthesia: No NPO: Yes ASA Class: IV and Emergency Final Preanesthetic Review: No Changes in Pt Med Stat, Meds/Allgs Chart Reviewed, Consent Obtained/Reviewed and Anes Risks/Benef Reviewed Patient Risk: High Procedure Risk: Intermediate Assessment/Block/Sedation in SS: Assess/Block/Sedation-SS Anesthetic Plan Anesthetic Plan: GA and MAC: Disposition: Standard PACU and Inp. Admit - Standard Bed
[2022-11-24] MEDS: Lactated Ringers 1,000 ML 100 ML IVCONT ×2 (12:53→22:48)
--- NOTE | 2022-11-24 12:56 | P.OP_ITS ---
Operative Note Operative Note Date of Service: 11/24/22 Narrative: Operative Information Procedure Description: EGD, Colonoscopy Indication: acute blood loss anemia Anesthesia: GA FLEXIBLE TRANSORAL UPPER GASTROINTESTINAL ENDOSCOPY AND COLONOSCOPY PROCEDURE NOTE UPPER ENDOSCOPY Consent: Indications for the procedure and potential complications of bleeding, perforation, reaction to medications and missed diagnosis were discussed with the patient and informed consent was obtained. Instrument: Olympus GIF H 190 J mid size upper endoscope Monitoring: Vital signs and clinical assessment, continuous EKG monitoring, Pulse oximetry, Carbon Dioxide monitoring and blood pressure monitoring were done throughout the procedure. Procedure: The patient was placed in the left lateral decubitis position and pre-procedure medications were administered and a bite block was placed. The endoscope was inserted into the mouth and advanced under direct vision to the third part of duodenum. A careful inspection was made as the upper endoscope was withdrawn including a retroflexed examination of the proximal stomach; Findings and interventions are described below. Findings: Larynx:normal Esophagus: GE junction at 44 cm, diaphragm hiatus at 44 cm, bogginess and erythema at GEJ consistent with esophagitis Stomach: Normal mucosa. Biopsies were obtained. Grade 2 flap valve on retroflexed examination of the cardia. Duodenum: Severe duodenitis noted, no active bleeding, old suture noted, possible slight erosion around it but hard to see. Intervention: Biopsies as noted above COLONOSCOPY Instrument: Olympus variable stiffness pediatric scope 190L Colonoscopy Monitoring: Vital signs and clinical assessment, continuous EKG monitoring, Pulse oximetry, Carbon Dioxide monitoring and blood pressure monitoring were done throughout the procedure. Procedure: The patient was placed in the left lateral decubitis position and pre-procedure medications were administered. After a digital rectal examination of the ano-rectum, the video colonoscope was inserted into the rectum and advanced through the colon to the cecum/TI. The colonoscope was slowly withdrawn in a retrograde panoramic fashion and the colon mucosa was carefully examined including a retroflexed view of the rectum. Findings and interventions are described below. Procedure Difficulty: easy Findings: old blood noted in colon, no active bleeding Terminal Ileum-normal Cecum:normal Ascending Colon: normal Transverse Colon -normal Descending Colon: x3 sessile polyps 4-6 mm removed with cold forceps Sigmoid Colon: normal Rectum: Retroflexion with small internal hemorrhoids, grade I Anorectum - normal Colon preparation: [place] Bowel Preparation Scale Right colon; 2 Transverse colon: 2 Left colon; 2 (0 = Unprepared colon segment with mucosa not seen due to solid stool that cannot be cleared. 1 = Portion of mucosa of the colon segment seen, but other areas of the colon segment not well seen due to staining, residual stool and/or opaque liquid. 2 = Minor amount of residual staining, small fragments of stool and/or opaque liquid, but mucosa of colon segment seen well. 3 = Entire mucosa of colon segment seen well with no residual staining, small fragments of stool or opaque liquid) Impression and Post Procedure Diagnosis: Endoscopy Findings: esophagitis duodenitis -severe Colonoscopy Findings: internal hemorrhoids polyps Plan: Await Pathology results High fiber diet leaflet avoid straining at stool, epsom salts and sitz bath, anusol supps or cream most likely source of bleeding is duodenum, recommend high dose PPI and carafate BID--if ongoing bleeding then capsule endoscopy--restart eliquis in 2-3 d Above findings were reviewed with the patient and relevant handouts were provided if indicated.
--- NOTE | 2022-11-24 12:56 | MHC.SHP ---
Pre-Procedural Eval Section A Date of Service: 11/24/22 The patient is an INPATIENT: Yes The History & Physical has been completed within 30 days and I have reviewed it.: Yes Section B Chief Complaint: gi bleed Allergies: Allergies Allergy/AdvReac Type Severity Reaction Status Date / Time No Known Allergies Allergy Verified 10/13/22 17:04 [No Known Allergies*] Plan Diagnosis/Plan: Unchanged I have reviewed the history and physical and performed a pertinent physical examination on my patient. No changes have occurred unless specified. egd,colo for assessment of GI blood loss Time Spent With Patient Time: Total time managing care of this patient today ____ minutes.
[2022-11-24 16:36] LABS: Glucose, Whole Blood 81 mg/dL (60-115)
[2022-11-24] MEDS: Omeprazole 40 MG CAPSULE.DR PO (17:16)
[2022-11-24] MEDS: Sevelamer Carbonate Tablet 800 MG TABLET PO (17:16)
[2022-11-24] MEDS: Sucralfate 1 GM TABLET PO ×2 (17:16→19:43)
[2022-11-24 19:29] LABS: Glucose, Whole Blood 124 mg/dL (60-115)
[2022-11-25] MEDS: 0.9 % Sodium Chloride Flush 3 ML SYRINGE IVFLUSH ×2 (01:07→08:22)
[2022-11-25 03:41] VITALS: BP 107/61; PULSE 86; RESP 18; TEMP 36.6; O2SAT 100
[2022-11-25] MEDS: Omeprazole 40 MG CAPSULE.DR PO (05:23)
[2022-11-25 05:36] LABS: Hematocrit 22.7 % (42.0-52.0); Hemoglobin 7.6 g/dl (14.0-18.0); Mean Corpuscular HGB Conc 33.5 g/dl (31.0-36.0); Mean Corpuscular Hemoglobin 31.7 pg (27.0-33.0); Mean Corpuscular Volume 94.6 fL (80.0-98.0); Mean Platelet Volume 9.2 fL (9.4-12.4); Platelet Count 104 X10*3/uL (160-400); Red Cell Distribution Width 14.1 % (11.0-16.0); White Blood Count 5.2 X10*3/uL (4.8-10.8)
[2022-11-25 06:27] LABS: Anion Gap 14 (12-20); Blood Urea Nitrogen 48 mg/dL (9-16); Calcium 8.2 mg/dL (8.4-10.2); Carbon Dioxide 24 mmol/L (22-29); Chloride 100 mmol/L (96-108); Creatinine Clr Calc Pharmacy 17.6; Estimated Glomerular Filt Rate 13; Glucose Fasting 81 mg/dL (60-99); Sodium 134 mmol/L (135-145)
[2022-11-25 07:42] VITALS: BP 137/74; PULSE 92; RESP 20; TEMP 36.1; O2SAT 96
[2022-11-25 07:48] LABS: Glucose, Whole Blood 78 mg/dL (60-115)
[2022-11-25] MEDS: Sevelamer Carbonate Tablet 800 MG TABLET PO (08:20)
[2022-11-25] MEDS: Sucralfate 1 GM TABLET PO (08:20)
[2022-11-25] MEDS: Metoprolol Tartrate 12.5 MG HALFTAB PO (08:20)
--- NOTE | 2022-11-25 09:06 | PM.DS ---
DS: Providers Provider Date of Service: 11/25/22 Date of admission: 11/22/22 08:23 Primary care physician: Steve Nguyen MD Consults: 11/22/22 08:17 Consult to Nephrology Routine Consulting Provider: Alber Mcmillan Reason for consultation: esrd 11/22/22 08:18 Consult to Gastroenterology Routine Consulting Provider: Wally Devi Reason for consultation: gi bleed DS: Diagnosis Discharge Diagnosis (1) Anemia: Status: Acute (2) ESRD (end stage renal disease): Status: Acute DS: Summary Hospital Course Hospital Course: form initial hpi: 67M PMH liver cirrhosis (?TOMLINSON), ESRD on HD, sick sinus s/p pacer, DM, chronic diastolic chf, pulm htn, COPD, depression, paroxysmal afib on eliquis, recent cdif 10/2022, presented with blood per rectum. patient states on night priot to presentation he noted significant dark red blood per rectum. 1 episode, took imodium and has not recurred. he feels weak and 'Whoozy', in ED noted to have hgb of 5.6. hospital course: patient was admitted for acute blood loss anemia due to gi bleed. his eliquis was held. he was started on iv ppi, received total 4 units prbc during hospitalization, hgb stabilized between 7 and 7.5. underwent EGD/Colonoscopy 11/24/22 which showed: esophagitis, severe duodenitis, internal hemorrhoids, polyps. duodenitis is the likely culprit. recommendations were to follow up path, high fiber diet, avoid straining at stool, epsom salts and sitz bath, anusol supps or cream, high dose PPI and carafate BID, and hold eliquis for 2-3 days. patient had no futher bleeding. for ESRD was conintued on HD. for DM was continued on insulin. for liver cirrhosis likely due to TOMLINSON will follow up outpatinet with gi. for chornic diastolic chf and pulm htn remained euvolemic. for copd remained stable. for paroxysmal afib will restart eliquis in 2-3 days. Time Spent with Patient Time attestation: Total time managing care of this patient today ____ minutes. Discharge coordination time: Greater than 30 minutes Quality: Safe Use of Opioids Does Pt have an Active Cancer Diagnosis on the Problem List?: No Quality: Stroke Does the patient have a stroke diagnosis?: No Physical Exam Vital Signs: Vital Signs: Last Vital Signs Temp 97.0 F 11/25/22 07:42 Pulse 92 11/25/22 07:42 Resp 20 11/25/22 07:42 BP 137/74 11/25/22 07:42 Pulse Ox 96 11/25/22 07:42 O2 Del Method Room Air 11/25/22 07:42 BMI result Body Mass Index 27.8 General: AO X 3, no acute distress Resp: CTA bilateral, no accessory muscles used CVS: S1,S2,RRR GI: soft, non tender, non distended Neuro: motor grossly intact, alert Psych: appropriate affect, appropriate insight skin: bilateral lower extremity chronic venous stasis changes DS: Data Data Completed and Pending Completed studies during hospitalization [Text1]: Procedures Drainage of Peritoneal Cavity, Percutaneous Approach (10/13/22) Insertion of Infusion Device into Superior Vena Cava, Percutaneous Approach (10/13/22) Insertion of Pacemaker Lead into Right Atrium, Percutaneous Approach (09/24/22) Insertion of Pacemaker Lead into Right Ventricle, Percutaneous Approach (09/24/22) Insertion of Pacemaker, Dual Chamber into Chest Subcutaneous Tissue and Fascia, Open Approach (09/24/22) Insertion of Tunneled Vascular Access Device into Chest Subcutaneous Tissue and Fascia, Percutaneous Approach (10/13/22) Performance of Urinary Filtration, Intermittent, Less than 6 Hours Per Day (10/13/22) Ultrasonography of Superior Vena Cava, Guidance (10/13/22) Pending studies at discharge: Pending at discharge 11/24/22 13:56 Surgical [PTH] Routine Labs on day of discharge: Laboratory Results - last 24 hr 11/24/22 11/24/22 11/24/22 11:00 16:00 19:25 WBC RBC Hgb Hct MCV MCH MCHC RDW Plt Count MPV Absolute Nucleated RBC Nucleated RBC % (auto) Sodium Potassium Chloride Carbon Dioxide Anion Gap BUN Creatinine Estim Creat Clear Calc Estimated GFR POC Glucose 80 81 124 H Fasting Glucose Calcium 11/25/22 11/25/22 11/25/22 05:27 05:27 07:44 WBC 5.2 RBC 2.40 L Hgb 7.6 L Hct 22.7 L MCV 94.6 MCH 31.7 MCHC 33.5 RDW 14.1 Plt Count 104 L MPV 9.2 L Absolute Nucleated RBC 0.000 Nucleated RBC % (auto) 0.0 Sodium 134 L Potassium 4.0 Chloride 100 Carbon Dioxide 24 Anion Gap 14 BUN 48 H Creatinine 4.55 H* Estim Creat Clear Calc 17.6 Estimated GFR 13 POC Glucose 78 Fasting Glucose 81 Calcium 8.2 L Preliminary micro results at discharge 11/23/22 18:15 Urine Culture - Preliminary Urine clean catch - Urine keys top Culture in progress. 11/22/22 05:06 Blood Culture - Preliminary Blood - Venous No growth after 48 hours. 11/22/22 05:06 Blood Culture - Preliminary Blood - Venous No growth after 48 hours. Discharge Plan Discharge Anticipated Discharge Date/Time: 11/25/22 09:03 Patient Disposition: Home, Self-Care Discharge Diagnosis: gi bleed - severe duodenitis Referrals: Po,Steve Dawn MD [Primary Care Provider] - 1 Week Discharge Medications: New sucralfate 1 gram Tablet 1 g PO QIDACHS Qty: 120 0RF omeprazole 40 mg Capsule,Delayed Release(Dr/Ec) 40 mg PO BID@0630,1630 Qty: 60 0RF Continued (DME) kylah.stocking,knee,reg,xlrg Misc See Rx Instructions .ROUTE .MEDSUPPLY Qty: 12 0RF Rx Instructions: As directedcompression stockings bilateral adjustable lower extremity garments (DME) compr.stocking,thigh,reg,x-lrg Misc See Rx Instructions .Route Qty: 12 0RF Rx Instructions: As directed 20-30 mm HG (DME) Juxta Lite Compression wraps - Adjustable -for chronic ulcers with open wounds bilat lower extremities See Rx Instructions .Route .MEDSUPPLY Qty: 2 0RF Rx Instructions: As directed Anoro Ellipta 62.5-25 mcg/actuation blister with device 1 ea inhalation DAILY Qty: 60 6RF (DME) lancets [FreeStyle Lancets] 28 gauge misc See Rx Instructions .ROUTE .MEDSUPPLY Qty: 200 3RF Rx Instructions: As directed check BS BID (DME) blood-glucose meter [FreeStyle Lite Meter] Kit See Rx Instructions .ROUTE .MEDSUPPLY Qty: 1 0RF Rx Instructions: As directed (DME) FreeStyle Lite Strips Strip See Rx Instructions .ROUTE .MEDSUPPLY Qty: 200 3RF Rx Instructions: As directed check the BS BID polyethylene glycol 3350 [Miralax] 17 gram powder in packet 17 g PO DAILY PRN (Reason: Constipation) ferrous sulfate 325 mg (65 mg iron) tablet 325 mg PO DAILY Qty: 30 0RF metoprolol tartrate 25 mg tablet 12.5 mg PO BID Qty: 30 0RF terazosin 5 mg capsule 5 mg PO BEDTIME sevelamer carbonate 800 mg tablet 800 mg PO TIDWM pravastatin 20 mg tablet 20 mg PO DAILY (DME) APAP 5-15 cm H20 humidified AIR See Rx Instructions .Route .MEDSUPPLY Qty: 1 0RF Rx Instructions: As directed calcitriol 0.5 mcg capsule 0.5 mcg PO TUTHSA Rx Instructions: during dialysis albuterol sulfate [ProAir HFA] 90 mcg/actuation HFA aerosol inhaler 2 puff inhalation Q6H PRN (Reason: Shortness Of Breath Or Wheezing) Held Eliquis 2.5 mg tablet 2.5 mg PO BID Qty: 60 3RF Hold Instructions: Resume on 11/27/22. Discharge Orders: Discharge Order (Routine); Ordered 11/25/22 Ordered By: Rickie Barrow Diet: Advance to usual diet Activity on Discharge: As tolerated Stand Alone Forms: Patient Portal Discharge page Care Plan Goals: avoid bleed Health Concerns: severe duodenitis Plan of Treatment: follow up Pathology results High fiber diet avoid straining at stool, epsom salts and sitz bath, anusol supps or cream most likely source of bleeding is duoditis, high dose PPI and carafate BID--if ongoing bleeding then capsule endoscopy--restart eliquis in 2-3 d follow up with gi Assessment: see above
--- NOTE | 2022-11-25 10:18 | W.PM.DNNEP ---
Subjective Subjective This patient was seen during dialysis. Interval history: Events noted Physical Exam Vital Signs: Vital Signs: Last Vital Signs Temp 97.0 F 11/25/22 07:42 Pulse 92 11/25/22 07:42 Resp 20 11/25/22 07:42 BP 137/74 11/25/22 07:42 Pulse Ox 96 11/25/22 07:42 O2 Del Method Room Air 11/25/22 07:42 BMI result Body Mass Index 27.8 Const: Other: Appearance: Alert. Oriented X3. No acute distress. Eyes: Pupils equal, round and reactive to light. ENT: Pharynx normal. Neck: Normal inspection. Neck supple. No lymph nodes noted. No crepitus CVS: Normal heart rate and rhythm. Pulses normal. Normal S1 and S2 Respiratory: No respiratory distress. Breath sounds normal. No Wheezing. No rales Abdomen: Soft and nontender. No rigidity. No distention. On rectal exam the stool is black mixed with fresh blood Skin: Skin warm and dry. Normal skin color. Normal skin turgor. Extremities: No lower extremity edema. No Lacerations. No Rash Neuro: Oriented X 3. No motor deficit. No sensory deficit. Moving all extremities. No slurred speech. CN 2 through 12 grossly intact Psych: calm, cooperative, normal affect Assessment & Plan Assessment and plan (1) Anemia: Status: Acute (2) ESRD (end stage renal disease): Status: Acute Plan Elderly man with renal failure currently on hemodialysis. Admitted with GI bleed. No overt signs or symptoms of uremia. We will dialyze him on Thursday schedule.. We will use a low-potassium bath to correct hyperkalemia. Transfuse packed red blood cells as indicated. Concur with GI workup for the GI bleed. s/p endoscopy Resume MAURICE Time Spent With Patient Time: Total time managing care of this patient today ____ minutes. Procedures Date of Service Date of Service: 11/25/22
--- NOTE | 2022-11-25 12:12 | MHC.CM.PN ---
EMR reviewed and per MD rounds, pt medically cleared for D/C home self-care, pts will transport. Pt will continue with [facility] dialysis and pts to transport.
--- NOTE | 2022-11-25 13:55 | HO.POSTANES ---
Post Anesthesia Evaluation Post Anesthesia Evaluation Date of Service: 11/25/22 Vital Signs: Vital Signs Temp Pulse Resp BP Pulse Ox O2 Del Method 11/25/22 07:42 97.0 F 92 20 137/74 96 Room Air 11/25/22 03:41 97.8 F 86 18 107/61 100 Room Air Anesthesia: General Mental Status: Awake Pain Control: Satisfactory Nausea/Vomiting: None Hydration: Adequate Anesthesia-Related Issues: No Anes. Related Issues
[2022-11-25 15:05] VITALS: BP 134/68; PULSE 80; RESP 20; TEMP 37.2; O2SAT 92
== END 2022-11-25 15:17 | disposition home or self-care (01) | DRG 377 ==
LOC: HO.ED 07:19 → HO.EDOVER 08:33 → HO.IMC 21:41
PROVIDERS: Internal Medicine Gastroenterology; Admitting Provider Internal Medicine; Emergency Provider Emergency Medicine; PCP Internal Medicine; Visit Provider Internal Medicine
PROC: 0DB98ZX Excision of Duodenum, Via Natural or Artificial Opening Endoscopic, Diagnostic (ICD-10-PCS; principal; 2022-11-24 12:10)
DX: K29.81 Duodenitis with bleeding (principal); N18.6 End stage renal disease; I13.2 Hypertensive heart and chronic kidney disease with heart failure and with stage 5 chronic kidney disease, or end stage renal disease; D62 Acute posthemorrhagic anemia; D68.32 Hemorrhagic disorder due to extrinsic circulating anticoagulants; I50.32 Chronic diastolic (congestive) heart failure; K20.91 Esophagitis, unspecified with bleeding; D63.1 Anemia in chronic kidney disease; E11.22 Type 2 diabetes mellitus with diabetic chronic kidney disease; K63.5 Polyp of colon; Z99.2 Dependence on renal dialysis; I48.0 Paroxysmal atrial fibrillation; E87.5 Hyperkalemia; K74.69 Other cirrhosis of liver; K64.8 Other hemorrhoids; K75.81 Nonalcoholic steatohepatitis (NASH); Z95.0 Presence of cardiac pacemaker; I49.5 Sick sinus syndrome; T45.511A Poisoning by anticoagulants, accidental (unintentional), initial encounter; Z79.01 Long term (current) use of anticoagulants; Z79.899 Other long term (current) drug therapy
CPT/HCPCS: 36415; 74178; 80048; 80076; 81001; 82272; 82947; 83605; 84484; 85025; 85027; 85610; 86850; 86870; 86885; 86900; 86901; 86920; 86921; 87040; 87086; 87088; 87186; 88305; 88307; 88342; 90999; 93005; 99285; J0330; J3010; P9016; Q9967

== ENCOUNTER 2022-12-24 10:57 | Outpatient (AMB) | payer OTHER, SELFPAY ==
--- NOTE | 2022-12-24 10:59 | A.OFFVIS_ITS ---
Intake Vital Signs 12/24/22 11:01 Height 5 ft 11 in Weight 196 lb 3.382 oz BMI 27.4 BP 90/56 L Blood Pressure Location Lt brachial Position Sitting Pulse 62 Pulse Source Pulse Oximeter Intake Visit Reasons: 3 mth fu/clearance Intake Note: 3 month follow up. Senior Group Manager Required: No Accompanied by: Self / Same As Patient Allergies No Known Allergies [No Known Allergies*] Allergy (Verified 12/24/22 11:03) Medication List - Last Reconciled 12/24/22 by Danny Ron MD albuterol sulfate 90 mcg/actuation (ProAir HFA) 2 puffs inhalation Q6H PRN Anoro Ellipta 62.5-25 mcg/actuation (umeclidinium-vilanterol) 1 ea inhalation D AILY NS [APAP 5-15 cm H20 humidified AIR As directed] apixaban (Eliquis) 2.5 mg PO BID blood sugar diagnostic (FreeStyle Lite Strips) As directed check the BS BID blood-glucose meter (FreeStyle Lite Meter kit) As directed calcitriol 0.5 mcg PO TUTHSA compr.stocking,thigh,reg,x-lrg As directed 20-30 mm HG kylah.stocking,knee,reg,xlrg As directedcompression stockings bilateral adjustable lower extremity garments ferrous sulfate 325 mg PO DAILY [Juxta Lite Compression wraps - Adjustable -for chronic ulcers with open wounds bilat lower extremities As directed] lancets (FreeStyle Lancets) As directed check BS BID metoprolol tartrate 12.5 mg (1/2 x 25 mg) PO BID omeprazole 40 mg PO BID@0630,1630 polyethylene glycol 3350 (Miralax) 17 grams PO DAILY PRN pravastatin 20 mg PO DAILY sevelamer carbonate 800 mg PO TIDWM sucralfate 1 g PO QIDACHS terazosin 5 mg PO BEDTIME HPI HPI Comments History of Present Illness Details 67-year-old gentleman who is here for follow-up. He was previously seeing Dr. Cuevas and Dr Varner at [facility]. He has background history of diabetes, obesity, obstructive sleep apnea, chronic kidney disease, peripheral vascular disease, COPD, gout, hypertension and lymphedema. He has background of junctional bradycardia and as per his report there were some discussions in the past about pacemaker placement but then it was decided not to place a pacemaker. Echocardiography showed normal biventricular function with D-shaped LV cavity pointing towards right ventricular pressure and volume overload. Echo also showed moderate to severe pulmonary hypertension he is a former smoker. Has been taking medications regularly. He was referred for pulmonology evaluation to see if he has hypoxic when he ambulates. This has shown that his saturations are normal when he walks. He has atrial fibrillation with slow ventricular response in low 40s. He has been asymptomatic and denies any chest discomfort, dizziness or syncope. He does look little in more edematous on follow-up. He is saying that he is taking the morning dose of Lasix but not taking the afternoon does regularly. He is supposed to be on 120 mg Lasix in the morning and 80 in the afternoon. Because of progressive kidney disease he had left arm AV fistula placed but since then he has swelling of the left hand and unable to use the left hand and unable to make a fist. He is saying he is going back for surgery where they are going to ligate the AV fistula and make a new 1 in the upper arm. He also had 1 episode of central chest tightness at rest which happen few days ago. He is saying it lasted for few minutes and then resolved. It has not recurred since then. He was referred for stress test but could not exercise signifcantly on treadmill and stress was very limited. 09/2022: He is returning [place] [facility] [place]. He had bowel perforation and underwent surgery. His BP was low and his medications were held. He as finished rehab and came back home 2 days ago. He has not been taking the Lasix. He has edema. He has PETERSEN. 12/24/22: He returns for follow-up. He has lost significant weight. Since last visit, he has been started on hemodialysis. He also had admission with severe anemia and was transfused. He is here for follow-up with his . He is planning to undergo vascular surgery to have AV fistula formation on the left arm. He is significantly frail. He is walking with a walker. With ambulation inside the house he has no significant chest discomfort or shortness of breath. He is describing 1 episode of right-sided chest discomfort which lasted for 30 minutes at rest few days ago but it has not been a recurrent symptom for him. With ambulation he currently has no chest discomfort. [facility] Medical History (Updated 12/24/22 @ 19:33 by Danny Ron MD) Acute kidney injury superimposed on chronic kidney disease Afib Anasarca Anemia BPH (benign prostatic hyperplasia) Bradycardia Chronic kidney disease Cirrhosis CKD (chronic kidney disease) stage 4, GFR 15-29 ml/min Clostridioides difficile diarrhea COPD (chronic obstructive pulmonary disease) Depression, major Dermatitis associated with moisture from stool incontinence Diabetic retinopathy Diastolic heart failure Edema Essential thrombocytopenia Fistula Gout High cholesterol HTN (hypertension) Hypercholesterolemia Incomplete emptying of bladder due to benign prostatic hyperplasia Lumbar degenerative disc disease Lymphedema Obesity (BMI 30-39.9) Obstructive sleep apnea Osteoarthritis Pacemaker Pancytopenia Paroxysmal A-fib Peripheral neuropathy Peripheral vascular disease Pulmonary hypertension Pulmonary hypertension Scrotal edema SLE (systemic lupus erythematosus related syndrome) Type 2 diabetes mellitus with hyperglycemia Urinary retention with incomplete bladder emptying Venous stasis dermatitis Surgical History H/O prior ablation treatment History of bilateral cataract extraction History of bowel diversion surgery History of carpal tunnel release History of gastric surgery History of tonsillectomy Family History Father Prostate cancer CVD (cardiovascular disease) Mother Hemochromatosis Brother Motor vehicle accident Sister CAD (coronary artery disease) Maternal Grandfather Myocardial infarction Social History Household Members: Spouse Housing: House Do you presently have visiting nurse or other home services: Yes Alcohol intake: never Patient Tobacco Use Status: Former Tobacco user Tobacco use type: Cigarette e-Cigarette/Vaping Use: Former Use Second Hand Smoke Exposure: Yes Substance Use Type: Marijuana service: No Current occupational status: retired Cognitive needs: Yes Hearing needs: Yes Vision needs: Yes Review of Systems Const Denies weakness ENT Denies dizziness Card Denies chest pain, Denies chest pain with activity, Denies syncope, Denies rapid heart rate, Denies pedal edema, Denies edema, Denies leg edema, Denies lightheadedness, Denies palpitations, Denies dyspnea, Denies dyspnea on exertion and Denies orthopnea Resp Denies cough, Denies dyspnea and Denies dyspnea on exertion GI Denies hematochezia and Denies change in stool character Musc Denies abnormal gait, Denies muscle cramps, Denies muscle weakness, Denies numbness, Denies radiating pain into limb and Denies tingling Neuro Denies abnormal gait, Denies dizziness, Denies syncope, Denies numbness, Denies tingling and Denies weakness Endo Denies palpitations Physical Exam Vital Signs: Last Vital Signs Pulse 62 12/24/22 11:01 BP 90/56 L 12/24/22 11:01 BMI result Body Mass Index 27.4 GENERAL APPEARANCE: in no acute distress, frail. NECK: no carotid bruit, no jugular venous distention. SKIN: no suspicious lesions, warm and dry. HEART: no murmurs, regular rate and rhythm. LUNGS: Lungs clear to auscultation ABDOMEN: soft, nontender. EXTREMITIES: Chronic changes for lymphedema. Mild edema. PERIPHERAL PULSES: equal. NEUROLOGIC: No gross deficits, AAO X 3 Assessment & Plan Assessment & Plan (1) Shortness of breath: Code(s): R06.02 - Shortness of breath (2) ESRD (end stage renal disease): Code(s): N18.6 - End stage renal disease (3) Acute GI bleeding: Code(s): K92.2 - Gastrointestinal hemorrhage, unspecified (4) Anemia: Code(s): D64.9 - Anemia, unspecified (5) Chest pain: Code(s): R07.9 - Chest pain, unspecified (6) Afib: Code(s): I48.91 - Unspecified atrial fibrillation Plan 67-year-old gentleman who is here for follow-up. He has complex issues. He has end-stage renal disease now and is on hemodialysis. He has been anemic and received blood transfusion and juices. He is on apixaban for AFib. He also had permanent pacemaker placement for slow atrial fibrillation. He has lost significant weight and has been quite deconditioned and appears very frail. He has been experiencing some off and on chest pains but no consistent symptoms. We previously tried exercise stress test but he had very poor functional capacity in the was quite limited and stress test was inconclusive. He has been on hemodialysis and is denying any significant symptoms on follow-up right now. Not in heart failure. Ambulating inside the house without any significant issues. Overall I feel he is intermediate to high risk for perioperative cardiovascular complications. He has ESRD and probably will need a fistula placement though. I think we should continue the same medications for now. Thank you for allowing me to participate in the care of your patient. Please feel free to contact me if you have any questions. Orders: Orders XR chest 2V Today N18.6 - End stage renal disease Medications: Discontinued terazosin 5 mg PO DAILY 90 caps 3RF pravastatin 20 mg PO BEDTIME 90 tabs 3RF polyethylene glycol 3350 17 grams PO DAILY 90 days 100 ea 0RF K59.00 - Constipation, unspecified Coding Level of Care Code Est Pt Level 4 (17890) Diagnoses Shortness of breath R06.02 ESRD (end stage renal disease) N18.6 Acute GI bleeding K92.2 Anemia D64.9 Chest pain R07.9 Afib I48.91
[2022-12-24 11:01] VITALS: BP 90/56; PULSE 62; BMI 27.4
== END 2022-12-24 11:27 | disposition home or self-care (01) ==
PROVIDERS: Visit Provider Internal Medicine Cardiovascular Disease
DX: R06.02 Shortness of breath (principal); N18.6 End stage renal disease; K92.2 Gastrointestinal hemorrhage, unspecified; D64.9 Anemia, unspecified; R07.9 Chest pain, unspecified; I48.91 Unspecified atrial fibrillation
CPT/HCPCS: 99214

== ENCOUNTER 2022-12-24 10:57 | Outpatient (REF) | payer OTHER, SELFPAY ==
--- NOTE | ~2022-12-24 | XR_ITS ---
EXAMINATION: XR CHEST CLINICAL INFORMATION: End-stage renal disease COMPARISON: 10/13/2022 TECHNIQUE: 2 views of the chest were obtained. FINDINGS: Dual-chamber pacemaker device and right-sided central line in place. No pneumothorax. Minor increased markings at the left base appears chronic likely sequela of old infectious inflammatory process. There is no acute superimposed process. No significant abnormality is noted involving the heart, lungs, mediastinum, bony thorax or soft tissues. XR/XR chest 2V IMPRESSION: No active chest disease.
== END 2022-12-24 10:58 | disposition home or self-care (01) ==
LOC: HO.XRAY 10:57
PROVIDERS: PCP Internal Medicine; Visit Provider Internal Medicine Cardiovascular Disease
DX: I48.91 Unspecified atrial fibrillation (principal); N18.6 End stage renal disease; D63.1 Anemia in chronic kidney disease; R06.02 Shortness of breath; K92.2 Gastrointestinal hemorrhage, unspecified; R07.9 Chest pain, unspecified; Z79.899 Other long term (current) drug therapy; Z87.891 Personal history of nicotine dependence
CPT/HCPCS: 71046; 99212

== ENCOUNTER → 2023-01-09 23:59 | Outpatient (BNV) | payer OTHER, SELFPAY ==
--- NOTE | 2023-01-19 14:33 | MHC.OFFVIS ---
Intake Intake Visit Reasons: Remote Device Check- [facility] Allergies No Known Allergies [No Known Allergies*] Allergy (Verified 01/12/23 09:25) PFSH Medical History Acute kidney injury superimposed on chronic kidney disease Afib Anasarca Anemia BPH (benign prostatic hyperplasia) Bradycardia Chronic kidney disease Cirrhosis CKD (chronic kidney disease) stage 4, GFR 15-29 ml/min Clostridioides difficile diarrhea COPD (chronic obstructive pulmonary disease) Depression, major Dermatitis associated with moisture from stool incontinence Diabetic retinopathy Diastolic heart failure Edema Essential thrombocytopenia Fistula Gout High cholesterol HTN (hypertension) Hypercholesterolemia Incomplete emptying of bladder due to benign prostatic hyperplasia Lumbar degenerative disc disease Lymphedema Obesity (BMI 30-39.9) Obstructive sleep apnea Osteoarthritis Pacemaker Pancytopenia Paroxysmal A-fib Peripheral neuropathy Peripheral vascular disease Pulmonary hypertension Pulmonary hypertension Scrotal edema SLE (systemic lupus erythematosus related syndrome) Type 2 diabetes mellitus with hyperglycemia Urinary retention with incomplete bladder emptying Venous stasis dermatitis Surgical History H/O prior ablation treatment History of bilateral cataract extraction History of bowel diversion surgery History of carpal tunnel release History of gastric surgery History of tonsillectomy Family History Father Prostate cancer CVD (cardiovascular disease) Mother Hemochromatosis Brother Motor vehicle accident Sister CAD (coronary artery disease) Maternal Grandfather Myocardial infarction Social History Household Members: Spouse Housing: House Do you presently have visiting nurse or other home services: Yes Alcohol intake: never Patient Tobacco Use Status: Former Tobacco user Tobacco use type: Cigarette e-Cigarette/Vaping Use: Former Use Second Hand Smoke Exposure: Yes Substance Use Type: Marijuana service: No Current occupational status: retired Cognitive needs: Yes Hearing needs: Yes Vision needs: Yes Office Procedures Cardiac Device Check Cardiac Device Check Details: [facility]. Good better life 6 years. Mode DDD. Atrial paced 51%. V paced 85%. Acute mode switch episodes = 356, due to known atrial fibrillation. [id number] Cardiac Device Interrogation, pacemaker Procedure code (CPT) selection complete Assessment & Plan Assessment & Plan (1) Pacemaker: Code(s): Z95.0 - Presence of cardiac pacemaker Medications: Discontinued terazosin 5 mg PO DAILY 90 caps 3RF pravastatin 20 mg PO BEDTIME 90 tabs 3RF polyethylene glycol 3350 17 grams PO DAILY 90 days 100 ea 0RF K59.00 - Constipation, unspecified Coding Level of Care Code Procedure Only Diagnoses Pacemaker Z95.0 CPT Codes Cardiac Device Check - Cardiac Device 12: [id number] Cardiac Device Interrogation, pacemaker ([id number])
== END ==
PROVIDERS: PCP Internal Medicine; Visit Provider Internal Medicine Cardiovascular Disease
DX: I48.0 Paroxysmal atrial fibrillation (principal); Z95.0 Presence of cardiac pacemaker
CPT/HCPCS: 93294

== ENCOUNTER 2023-01-12 09:17 | Outpatient (AMB) | payer OTHER, SELFPAY ==
[2023-01-12 09:23] VITALS: BP 133/69; PULSE 98; BMI 27.5
--- NOTE | 2023-01-12 09:23 | MHC.OFFVIS ---
Intake Vital Signs 01/12/23 09:23 Height 5 ft 11 in Weight 197 lb 1.492 oz BMI 27.5 BP 133/69 Blood Pressure Location Lt brachial Position Sitting Pulse 98 Intake Visit Reasons: Anemia Intake Note: Kael presents in office as a new.patient for Anemia. 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 his eliquis was held. he was started on iv ppi, received total 4 units prbc during hospitalization, hgb stabilized between 7 and 7.5. underwent EGD/Colonoscopy 11/24/22 which showed: esophagitis, severe duodenitis, internal hemorrhoids, polyps. duodenitis is the likely culprit. recommendations were to follow up path, high fiber diet, avoid straining at stool, epsom salts and sitz bath, anusol supps or cream, high dose PPI and carafate BID, and hold eliquis for 2-3 days. patient had no futher bleeding. for ESRD was conintued on HD. for DM was continued on insulin. for liver cirrhosis likely due to [place] will follow up outpatinet with gi. for chornic diastolic chf and pulm htn remained euvolemic. for copd remained stable. for paroxysmal afib will restart eliquis in 2-3 days. UPPER ENDOSCOPY AND COLONOSCOPY Findings: Larynx:normal Esophagus: GE junction at 44? cm, diaphragm hiatus at 44 cm, bogginess and erythema at GEJ consistent with esophagitis Stomach: Normal mucosa. Biopsies were obtained. Grade 2 flap valve on retroflexed examination of the cardia. Duodenum: Severe duodenitis noted, no active bleeding, old suture noted, possible slight erosion around it but hard to see. Intervention: Biopsies as noted above Findings: old blood noted in colon, no active bleeding Terminal Ileum-normal Cecum:normal Ascending Colon: normal Transverse Colon -normal Descending Colon: x3 sessile polyps 4-6 mm removed with cold forceps Sigmoid Colon: normal Rectum: Retroflexion with small internal hemorrhoids, grade I Anorectum - normal Colon preparation: [place] Bowel Preparation Scale Right colon; 2 Transverse colon: 2 Left colon; 2 (0 = Unprepared colon segment with mucosa not seen due to solid stool that cannot be cleared. 1 = Portion of mucosa of the colon segment seen, but other areas of the colon segment not well seen due to staining, residual stool and/or opaque liquid. 2 = Minor amount of residual staining, small fragments of stool and/or opaque liquid, but mucosa of colon segment seen well. 3 = Entire mucosa of colon segment seen well with no residual staining, small fragments of stool or opaque liquid) Impression and Post Procedure Diagnosis: Endoscopy Findings: esophagitis duodenitis -severe Colonoscopy Findings: internal hemorrhoids polyps Plan: Await Pathology results High fiber diet leaflet avoid straining at stool, epsom salts and sitz bath, anusol supps or cream most likely source of bleeding is duodenum, recommend high dose PPI and carafate BID--if ongoing bleeding then capsule endoscopy--restart eliquis in 2-3 d TODAY'S VISIT Patient is here today following hospital visit. 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 Recently admitted with possible GI bleed had colonoscopy and upper endoscopy done by Dr. Farris and referred to our office for possible capsule. Patient reports that occasionally he will see blood in his stools. He continues to be on Eliquis. He is going for hemodialysis Thursday and Saturdays. Patient denies any GI concerning symptoms. He was diagnosed with hemorrhoids, duodenitis. Patient ran out of his omeprazole will send a script for that. He continues to take sucralfate twice a day. Denies dyspepsia, dysphagia or odynophagia [facility] Medical History Acute kidney injury superimposed on chronic kidney disease Afib Anasarca Anemia BPH (benign prostatic hyperplasia) Bradycardia Chronic kidney disease Cirrhosis CKD (chronic kidney disease) stage 4, GFR 15-29 ml/min Clostridioides difficile diarrhea COPD (chronic obstructive pulmonary disease) Depression, major Dermatitis associated with moisture from stool incontinence Diabetic retinopathy Diastolic heart failure Edema Essential thrombocytopenia Fistula Gout High cholesterol HTN (hypertension) Hypercholesterolemia Incomplete emptying of bladder due to benign prostatic hyperplasia Lumbar degenerative disc disease Lymphedema Obesity (BMI 30-39.9) Obstructive sleep apnea Osteoarthritis Pacemaker Pancytopenia Paroxysmal A-fib Peripheral neuropathy Peripheral vascular disease Pulmonary hypertension Pulmonary hypertension Scrotal edema SLE (systemic lupus erythematosus related syndrome) Type 2 diabetes mellitus with hyperglycemia Urinary retention with incomplete bladder emptying Venous stasis dermatitis Surgical History H/O prior ablation treatment History of bilateral cataract extraction History of bowel diversion surgery History of carpal tunnel release History of gastric surgery History of tonsillectomy Family History Father Prostate cancer CVD (cardiovascular disease) Mother Hemochromatosis Brother Motor vehicle accident Sister CAD (coronary artery disease) Maternal Grandfather Myocardial infarction Social History Household Members: Spouse Housing: House Do you presently have visiting nurse or other home services: Yes Alcohol intake: never Patient Tobacco Use Status: Former Tobacco user Tobacco use type: Cigarette e-Cigarette/Vaping Use: Former Use Second Hand Smoke Exposure: Yes Substance Use Type: Marijuana service: No Current occupational status: retired Cognitive needs: Yes Hearing needs: Yes Vision needs: Yes Review of Systems Const Denies weight gain and Denies weight loss ENT Reports no additional complaints, Denies dysphagia and Denies odynophagia Card Reports no additional complaints Resp Reports no additional complaints GI Denies abdominal pain, Denies belching, Denies melena, Denies bloating, Reports hematochezia, Denies change in bowel habits, Denies dysphagia, Denies excessive flatus, Denies dyspepsia, Denies heartburn, Denies diarrhea, Denies loose stools, Denies nausea, Denies odynophagia, Denies vomiting and Reports other (Black stool) Reports no additional complaints Musc Reports no additional complaints Neuro Reports no additional complaints Psych Reports no additional complaints Endo Reports no additional complaints Physical Exam Vital Signs: Last Vital Signs Pulse 98 01/12/23 09:23 BP 133/69 01/12/23 09:23 BMI result Body Mass Index 27.5 Const General: no acute distress and well developed Nutritional Appearance: well nourished Orientation/consciousness: patient oriented x3 HEENT Head: Yes normal to inspection, Yes normocephalic and Yes atraumatic Face and sinus: Yes normal facial exam Mouth: Normal oral and palatal mucosa present Throat: Yes posterior oropharynx normal, Yes tonsils normal and Yes uvula midline Eyes General: appearance normal, both eyes and all related structures Neck Neck: Yes normal visual inspection, Yes full ROM and Yes trachea midline Thyroid: Thyroid normal Resp Effort & Inspection: normal respiratory effort, able to speak in complete sentences, no tracheal deviation and symmetric chest movement Auscultation: clear to auscultation bilaterally Cardio Rate: regular rate Heart sounds: S1 normal heart sound present and S2 normal heart sound present GI Inspection: Yes normal to inspection and No distended Palpation (GI): Soft to palpation, not firm, nontender and No hepatosplenomegaly present Auscultation: normal bowel sounds General: Yes no CVA tenderness Back/Spine/Pelvis Back: no CVA tenderness Skin General skin exam: elasticity normal, turgor normal and dry skin Neuro General: patient oriented x3 Psych Appearance: grossly normal Mental Status: mental status grossly normal Speech and movement: Normal speech and movement present Assessment & Plan Assessment & Plan (1) Acute GI bleeding: Code(s): K92.2 - Gastrointestinal hemorrhage, unspecified Plan: Continue omeprazole and sucralfate. Patient can also be scheduled for capsule endoscopy. Discussed with patient prep and what to expect day before and the day of the testing (2) Anemia: Code(s): D64.9 - Anemia, unspecified Qualifiers: Anemia type: iron deficiency Iron deficiency anemia type: chronic blood loss Qualified Code(s): D50.0 - Iron deficiency anemia secondary to blood loss (chronic) Plan: Capsule endoscopy scheduled for January 23. Will send patient to repeat his CBC. He will follow-up with Dr. Freed. Patient is agreeable to this plan and verbalizes understanding of instructions. He was the opportunity to ask questions and all questions answered. Thank you for allowing me to participate in his care Orders: Orders Complete Blood Count no Diff Today D64.9 - Anemia, unspecified Medications: New bisacodyl (Dulcolax (bisacodyl)) take 2 tabs at noon the day before your colonoscopy 10 mg (2 x 5 mg) PO ONCE 1 day 2 tabs 0RF Z12.11 - Encounter for screening for malignant neoplasm of colon polyethylene glycol 3350 (Miralax) As directed by gastroenterology department at [facility] 238 grams PO ONCE 238 grams 0RF Z12.11 - Encounter for screening for malignant neoplasm of colon Changed From omeprazole 40 mg PO BID@0630,1630 60 caps 0RF To omeprazole 40 mg PO BID 60 caps 0RF From sucralfate 1 g PO QIDACHS 120 tabs 0RF To sucralfate 1 g PO BID 60 tabs 0RF Discontinued terazosin 5 mg PO DAILY 90 caps 3RF pravastatin 20 mg PO BEDTIME 90 tabs 3RF polyethylene glycol 3350 17 grams PO DAILY 90 days 100 ea 0RF K59.00 - Constipation, unspecified Coding Level of Care Code New Pt Level 4 (57038) Diagnoses Acute GI bleeding K92.2 Anemia D50.0 Anemia type: iron deficiency Iron deficiency anemia type: chronic blood loss Time Spent (min) 45 Comment 30 minutes spent with patient and additional 15 minutes spent reviewing his records
== END 2023-01-12 10:22 | disposition home or self-care (01) ==
PROVIDERS: PCP Internal Medicine; Visit Provider Nurse Practitioner Family
DX: K92.2 Gastrointestinal hemorrhage, unspecified (principal); D50.0 Iron deficiency anemia secondary to blood loss (chronic)
CPT/HCPCS: 99204; 99214

== ENCOUNTER → 2023-01-12 09:17 | Outpatient (BNVA) | payer OTHER, SELFPAY | PROVIDERS: PCP Internal Medicine; Visit Provider Nurse Practitioner Family | DX: K92.2 Gastrointestinal hemorrhage, unspecified (principal); D63.8 Anemia in other chronic diseases classified elsewhere; E11.65 Type 2 diabetes mellitus with hyperglycemia; E11.22 Type 2 diabetes mellitus with diabetic chronic kidney disease; E11.319 Type 2 diabetes mellitus with unspecified diabetic retinopathy without macular edema; I12.9 Hypertensive chronic kidney disease with stage 1 through stage 4 chronic kidney disease, or unspecified chronic kidney disease; N18.4 Chronic kidney disease, stage 4 (severe); Z98.84 Bariatric surgery status | CPT/HCPCS: 99202 ==

== ENCOUNTER 2023-01-23 07:46 | Outpatient (AMB) | payer OTHER, SELFPAY ==
--- NOTE | 2023-01-27 18:52 | A.OFFVIS_ITS ---
Intake Intake Visit Reasons: Capsules Allergies No Known Allergies [No Known Allergies*] Allergy (Verified 01/12/23 09:25) PFSH Medical History Acute kidney injury superimposed on chronic kidney disease Afib Anasarca Anemia BPH (benign prostatic hyperplasia) Bradycardia Chronic kidney disease Cirrhosis CKD (chronic kidney disease) stage 4, GFR 15-29 ml/min Clostridioides difficile diarrhea COPD (chronic obstructive pulmonary disease) Depression, major Dermatitis associated with moisture from stool incontinence Diabetic retinopathy Diastolic heart failure Edema Essential thrombocytopenia Fistula Gout High cholesterol HTN (hypertension) Hypercholesterolemia Incomplete emptying of bladder due to benign prostatic hyperplasia Lumbar degenerative disc disease Lymphedema Obesity (BMI 30-39.9) Obstructive sleep apnea Osteoarthritis Pacemaker Pancytopenia Paroxysmal A-fib Peripheral neuropathy Peripheral vascular disease Pulmonary hypertension Pulmonary hypertension Scrotal edema SLE (systemic lupus erythematosus related syndrome) Type 2 diabetes mellitus with hyperglycemia Urinary retention with incomplete bladder emptying Venous stasis dermatitis Surgical History H/O prior ablation treatment History of bilateral cataract extraction History of bowel diversion surgery History of carpal tunnel release History of gastric surgery History of tonsillectomy Family History Father Prostate cancer CVD (cardiovascular disease) Mother Hemochromatosis Brother Motor vehicle accident Sister CAD (coronary artery disease) Maternal Grandfather Myocardial infarction Social History Household Members: Spouse Housing: House Do you presently have visiting nurse or other home services: Yes Alcohol intake: never Patient Tobacco Use Status: Former Tobacco user Tobacco use type: Cigarette e-Cigarette/Vaping Use: Former Use Second Hand Smoke Exposure: Yes Substance Use Type: Marijuana service: No Current occupational status: retired Cognitive needs: Yes Hearing needs: Yes Vision needs: Yes Office Procedures AMB Capsule Endoscopy Procedure Notes: Capsule endoscopy date of service: 01/23/23 Indication: GI bleed Findings: esophagitis noted at GEJ. Stomach appeared normal. Duodenum entered at 19 min with mild bulbar duodenitis noted. [place] pattern to duodenal mucosa. No active bleeding seen in small bowel, cecum reached at 3 hr 20 min Conclusion: esophagitis mild duodenitis cobblestone appearance to mucosa check celiac serology and h pylori if not done Capsule Endoscopy CPT Code: 30241 - Capsule Endoscopy Assessment & Plan Assessment & Plan (1) Anemia: Code(s): D64.9 - Anemia, unspecified Qualifiers: Anemia type: iron deficiency Iron deficiency anemia type: chronic blood loss Qualified Code(s): D50.0 - Iron deficiency anemia secondary to blood loss (chronic) Orders: Orders Gliadin Ab Panel Today D64.9 - Anemia, unspecified Transglutaminase IgA Today D64.9 - Anemia, unspecified Transglutaminase Ab IgG Today D64.9 - Anemia, unspecified, G89.29 - Other chronic pain, R10.33 - Periumbilical pain Medications: Discontinued terazosin 5 mg PO DAILY 90 caps 3RF pravastatin 20 mg PO BEDTIME 90 tabs 3RF polyethylene glycol 3350 17 grams PO DAILY 90 days 100 ea 0RF K59.00 - Constip ation, unspecified Coding Level of Care Code Procedure Only Diagnoses Anemia D50.0 Anemia type: iron deficiency Iron deficiency anemia type: chronic blood loss CPT Codes AMB Capsule Endoscopy - Capsule Endoscopy CPT Code: 09636 - Capsule Endoscopy ([id number])
== END 2023-01-23 08:29 | disposition home or self-care (01) ==
PROVIDERS: PCP Internal Medicine; Visit Provider Internal Medicine Gastroenterology
DX: D50.0 Iron deficiency anemia secondary to blood loss (chronic) (principal)
CPT/HCPCS: 91110

== ENCOUNTER → 2023-01-23 07:46 | Outpatient (BNVA) | payer OTHER, SELFPAY | PROVIDERS: PCP Internal Medicine; Visit Provider Internal Medicine Gastroenterology | DX: D50.0 Iron deficiency anemia secondary to blood loss (chronic) (principal); K20.90 Esophagitis, unspecified without bleeding; K29.80 Duodenitis without bleeding | CPT/HCPCS: 91110 ==

== ENCOUNTER 2023-03-03 10:45 | Outpatient (AMB) | payer OTHER, SELFPAY ==
[2023-03-03 10:54] VITALS: BP 128/60; PULSE 76; TEMP 36.3; O2SAT 96; BMI 27.2
--- NOTE | 2023-03-03 10:54 | A.OFFVIS_ITS ---
Intake Vital Signs 03/03/23 10:54 Height 5 ft 11 in Weight 195 lb 1.745 oz BMI 27.2 BP 128/60 Blood Pressure Location Rt brachial Position Sitting Pulse 76 Pulse Source Pulse Oximeter Temp 97.3 F Temp Source Skin Pulse Oximetry (%) 96 Intake Visit Reasons: sle Intake Note: Pt seen today for SLE consult. Last seen by Dr Birch March 2020. C/o constant bl shoulder pain, has tried tylenol. States he was thinking about trying some prednisone he has from [address] Birch last prescribed it. 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 Accompanied by: Spouse Allergies No Known Allergies [No Known Allergies*] Allergy (Verified 03/03/23 10:57) Medication List - Last Reconciled 03/03/23 by Colton Reyna MD albuterol sulfate 90 mcg/actuation (ProAir HFA) 2 puffs inhalation Q6H PRN amlodipine 5 mg PO DAILY Anoro Ellipta 62.5-25 mcg/actuation (umeclidinium-vilanterol) 1 ea inhalation DAILY NS [APAP 5-15 cm H20 humidified AIR As directed] apixaban (Eliquis) 2.5 mg PO BID bisacodyl (Dulcolax (bisacodyl)) 10 mg (2 x 5 mg) PO ONCE 1 day blood sugar diagnostic (FreeStyle Lite Strips) As directed check the BS BID blood-glucose meter (FreeStyle Lite Meter kit) As directed [email or web address],thigh,reg,x-lrg As directed 20-30 mm HG [email or web address],knee,reg,xlrg As directedcompression stockings bilateral adjustable lower extremity garments ferrous sulfate 325 mg PO DAILY [Juxta Lite Compression wraps - Adjustable -for chronic ulcers with open wounds bilat lower extremities As directed] ketoconazole 2% appl topical DAILY lancets (FreeStyle Lancets) As directed check BS BID metoprolol tartrate 12.5 mg (1/2 x 25 mg) PO BID omeprazole 40 mg PO BID polyethylene glycol 3350 (Miralax) 17 grams PO DAILY PRN pravastatin 20 mg PO DAILY sucralfate 1 g PO BID HPI HPI Comments History of Present Illness Details This is a 68-year-old male with a past medical history of SLE, gout who presents for follow-up. He was last seen by Dr. Birch 2 years ago. Patient was admitted to the hospital in July of 2022 and discharged in November of 2022. Patient had a GI bleed, he had other complications including acute on chronic CKD which turned into end-stage CKD, now he is on hemodialysis. He had a pacemaker placed. He also had multiple infections. He has lost 80 lb since then. Over the last 6-7 months patient has been having bilateral shoulder pain and stiffness. Gets intermittent ankle swelling. He has not been on the hydroxychloroquine for more than a year as he was not able to get any refills. He is not taking allopurinol but has not had any gout flares recently. He denies any skin rashes. [facility] Medical History SLE (systemic lupus erythematosus related syndrome) Dermatitis associated with moisture from stool incontinence Clostridioides difficile diarrhea Urinary retention with incomplete bladder emptying Pacemaker Pancytopenia CKD (chronic kidney disease) stage 4, GFR 15-29 ml/min Incomplete emptying of bladder due to benign prostatic hyperplasia Acute kidney injury superimposed on chronic kidney disease Fistula Paroxysmal A-fib Diastolic heart failure Pulmonary hypertension Depression, major Afib Bradycardia Scrotal edema Anasarca Cirrhosis Lymphedema Type 2 diabetes mellitus with hyperglycemia Osteoarthritis Peripheral neuropathy Obstructive sleep apnea BPH (benign prostatic hyperplasia) Venous stasis dermatitis Obesity (BMI 30-39.9) Hypercholesterolemia Peripheral vascular disease Pulmonary hypertension Essential thrombocytopenia Anemia COPD (chronic obstructive pulmonary disease) Diabetic retinopathy Chronic kidney disease Lumbar degenerative disc disease High cholesterol HTN (hypertension) Edema Gout Surgical History Hx of cardiac pacemaker History of bowel diversion surgery History of gastric surgery H/O prior ablation treatment History of carpal tunnel release History of bilateral cataract extraction History of tonsillectomy Family History Father Prostate cancer CVD (cardiovascular disease) Mother Hemochromatosis Brother Motor vehicle accident Sister CAD (coronary artery disease) Maternal Grandfather Myocardial infarction Social History Household Members: Spouse Housing: House Do you presently have visiting nurse or other home services: Yes Alcohol intake: never Patient Tobacco Use Status: Former Tobacco user Tobacco use type: Cigarette e-Cigarette/Vaping Use: Former Use Second Hand Smoke Exposure: Yes Substance Use Type: Marijuana service: No Current occupational status: retired Cognitive needs: Yes Hearing needs: Yes Vision needs: Yes Review of Systems Const Reports weight loss Resp Reports cough Musc Reports arthralgias, Reports joint swelling and Reports stiffness Skin/Breast Reports dry skin, Denies rash and Reports unusual bruising Physical Exam Vital Signs: Last Vital Signs Temp 97.3 F 03/03/23 10:54 Pulse 76 03/03/23 10:54 BP 128/60 03/03/23 10:54 Pulse Ox 96 03/03/23 10:54 BMI result Body Mass Index 27.2 Const General: cooperative and poor hygiene Nutritional Appearance: overweight Limitations: ambulation with walker HEENT Other: Bilateral temporal wasting Mouth: moist mucous membranes Resp Effort & Inspection: normal respiratory effort and able to speak in complete sentences Auscultation: clear to auscultation bilaterally Cardio Other: Pacemaker left upper chest and PermCath right upper chest Rhythm: abnormal rhythm Skin Other: Dry skin on both lower extremities Extrem Other: Osteoarthritic changes of both hands Mild flexure contracture of multiple PIPs Right 1st MCP swelling and tenderness Right 4th finger swelling No wrist swelling tenderness or pain with full range of motion No elbow swelling or tenderness or pain with range of motion Bilateral significantly limited range of motion of both shoulders. Bilateral knee osteoarthritis, crepitus with knee flexion Normal nailfold capillaroscopy Assessment & Plan Assessment & Plan (1) SLE (systemic lupus erythematosus related syndrome): Code(s): M32.9 - Systemic lupus erythematosus, unspecified Plan: This is a 68-year-old male previously diagnosed with SLE based on positive MARISEL 1-320 homogeneous, low titer positive SENIOR QUALITATIVE RESEARCHER antibody, leukopenia, thrombocytopenia, low complements and positive dsDNA. He was on hydroxychloroquine 200 mg every other day. Could not tolerate higher doses due to GI upset. Has not been on hydroxychloroquine for more than a year. Who presents with bilateral shoulder pain and stiffness. Can be inflammatory arthritis versus osteoarthritis. Of note patient was admitted to the hospital for 4 months due to a complicated hospital course with GI bleeding, pacemaker placement, progression of CKD into ESRD on hemodialysis, multiple infections, has lost about 80 lb. On exam he has significant stiffness of both shoulders and few swollen finger joints. Will check x-rays of both shoulders and both hands. Check SLE activity labs. Start prednisone therapeutic trial. Patient has history of GI bleeding and is on Eliquis but takes omeprazole 40 mg Twice daily Follow-up in 1 month (2) Gout: Code(s): M10.9 - Gout, unspecified Qualifiers: Gout site: unspecified site Gout etiology: idiopathic Chronicity: chronic Presence of tophus: without tophus Qualified Code(s): M1A.00X0 - Idiopathic chronic gout, unspecified site, without tophus (tophi) Plan: Has not been on allopurinol for a long period of time, has not had any gout flares recently. Patient however was started on dialysis. Will check uric acid less Plan I spent 46 minutes reviewing patient's chart, evaluating patient, ordering diagnostic workup, counseling patient and documenting in the chart Orders: Orders Immunofixation Pnl, Serum Today M32.9 - Systemic lupus erythematosus, unspecified Protein Electrophoresis, Serum Today M32.9 - Systemic lupus erythematosus, unspecified Anti Extractable Nuclear Ag Today M32.9 - Systemic lupus erythematosus, uns pecified Anti DNA DS Antibody Today M32.9 - Systemic lupus erythematosus, unspecified Protein Creatinine Ratio, Ur Today M32.9 - Systemic lupus erythematosus, unspecified UA w Microscopic Today M32.9 - Systemic lupus erythematosus, unspecified Cyclic Citrullinated Peptide Today M19.90 - Unspecified osteoarthritis, unspecified site, M25.511 - Pain in right shoulder, M25.512 - Pain in left shoulder Complete Blood Count Auto Diff Today M32.9 - Systemic lupus erythematosus, unspecified Comprehensive Met. Panel Today M32.9 - Systemic lupus erythematosus, unspecified C Reactive Protein Today M32.9 - Systemic lupus erythematosus, unspecified Hepatitis A,B,C Profile Today Z11.59 - Encounter for screening for other viral diseases Complement C3 Today M32.9 - Systemic lupus erythematosus, unspecified Complement C4 Today M32.9 - Systemic lupus erythematosus, unspecified Erythrocyte Sedimentation Rate Today M32.9 - Systemic lupus erythematosus, unspecified Sjogren's Antibodies Today M32.9 - Systemic lupus erythematosus, unspecified Rheumatoid Factor Today M19.90 - Unspecified osteoarthritis, unspecified site, M25.511 - Pain in right shoulder, M25.512 - Pain in left shoulder Uric Acid Today M10.9 - Gout, unspecified XR hand wrist LT Today M19.90 - Unspecified osteoarthritis, unspecified site XR hand wrist RT Today M19.90 - Unspecified osteoarthritis, unspecified site XR shoulder LT min 2V Today M25.511 - Pain in right shoulder, M25.512 - Pain in left shoulder XR shoulder RT min 2V Today M25.511 - Pain in right shoulder, M25.512 - Pain in left shoulder Medications: New prednisone Take 4 tabs by mouth daily with breakfast for 1 week then 3 tabs daily for 1 week then 2 tabs daily for 1 week then 1 tab daily for 1 week then stop 70 tabs 0RF Coding Level of Care Code Est Pt Level 5 (87155) Diagnoses SLE (systemic lupus erythematosus related syndrome) M32.9 Idiopathic chronic gout without tophus, unspecified site M1A.00X0 Gout site: unspecified site Gout etiology: idiopathic Chronicity: chronic Presence of tophus: without tophus
== END 2023-03-03 11:38 | disposition home or self-care (01) ==
PROVIDERS: PCP Internal Medicine; Visit Provider Student in an Organized Health Care Education/Training Program
DX: M32.9 Systemic lupus erythematosus, unspecified (principal); M1A.00X0 Idiopathic chronic gout, unspecified site, without tophus (tophi)
CPT/HCPCS: 99215

== ENCOUNTER 2023-03-03 10:45 | Outpatient (REF) | payer OTHER, SELFPAY ==
--- NOTE | ~2023-03-03 | XR_ITS ---
EXAMINATION: XR WRIST, BILATERAL XR HAND, BILATERAL XR SHOULDER, BILATERAL CLINICAL INFORMATION: Any signs of inflammatory arthritis? Pain. COMPARISON: Right hand 10/24/2022 TECHNIQUE: 4 views of each hand. 4 views of each shoulder.. FINDINGS: RIGHT WRIST/HAND: Vascular calcifications. Bones are diffusely demineralized. Moderate degenerative changes in the 1st carpometacarpal joint with joint space narrowing and hypertrophic change. Mild degenerative changes in scattered interphalangeal joints, most notable in the DIP joints. Suggestion of periarticular erosive changes most notable at the distal aspect of the 2nd proximal phalange. A 6 mm cystic lucency at the distal aspect of the 2nd proximal phalanx. LEFT WRIST/HAND: Vascular calcifications. Bones are diffusely demineralized. Moderate degenerative changes in the 1st carpometacarpal joint with joint space narrowing and hypertrophic change. Mild degenerative changes in scattered interphalangeal joints. Periarticular erosions most notable at the PIP joint of the 2nd digit. RIGHT SHOULDER: Bones are diffusely demineralized. Catheter partially visualized overlying the mediastinum. Severe degenerative changes in the glenohumeral joint with loss of the joint space, hypertrophic change and periarticular lucencies. Scattered soft tissue calcifications may be vascular. Moderate degenerative changes in the acromioclavicular joint. LEFT SHOULDER: Bones are diffusely demineralized. Pacer overlies the upper left thorax. Severe degenerative changes in the glenohumeral joint with loss of the joint space, hypertrophic change and periarticular lucencies. Scattered soft tissue calcifications may be vascular. Moderate degenerative changes in the acromioclavicular joint. XR/XR shoulder LT min 2V IMPRESSION: 1. Scattered degenerative changes in bilateral hands as detailed above. 2. Severe degenerative changes in the bilateral glenohumeral joints. 3. Bones are diffusely demineralized. Additional imaging with CT scan or MRI should be considered for better visualization as these modalities are much more sensitive for detection of fracture or other underlying pathology.
--- NOTE | ~2023-03-03 | XR_ITS ---
EXAMINATION: XR WRIST, BILATERAL XR HAND, BILATERAL XR SHOULDER, BILATERAL CLINICAL INFORMATION: Any signs of inflammatory arthritis? Pain. COMPARISON: Right hand 10/24/2022 TECHNIQUE: 4 views of each hand. 4 views of each shoulder.. FINDINGS: RIGHT WRIST/HAND: Vascular calcifications. Bones are diffusely demineralized. Moderate degenerative changes in the 1st carpometacarpal joint with joint space narrowing and hypertrophic change. Mild degenerative changes in scattered interphalangeal joints, most notable in the DIP joints. Suggestion of periarticular erosive changes most notable at the distal aspect of the 2nd proximal phalange. A 6 mm cystic lucency at the distal aspect of the 2nd proximal phalanx. LEFT WRIST/HAND: Vascular calcifications. Bones are diffusely demineralized. Moderate degenerative changes in the 1st carpometacarpal joint with joint space narrowing and hypertrophic change. Mild degenerative changes in scattered interphalangeal joints. Periarticular erosions most notable at the PIP joint of the 2nd digit. RIGHT SHOULDER: Bones are diffusely demineralized. Catheter partially visualized overlying the mediastinum. Severe degenerative changes in the glenohumeral joint with loss of the joint space, hypertrophic change and periarticular lucencies. Scattered soft tissue calcifications may be vascular. Moderate degenerative changes in the acromioclavicular joint. LEFT SHOULDER: Bones are diffusely demineralized. Pacer overlies the upper left thorax. Severe degenerative changes in the glenohumeral joint with loss of the joint space, hypertrophic change and periarticular lucencies. Scattered soft tissue calcifications may be vascular. Moderate degenerative changes in the acromioclavicular joint. XR/XR hand wrist RT IMPRESSION: 1. Scattered degenerative changes in bilateral hands as detailed above. 2. Severe degenerative changes in the bilateral glenohumeral joints. 3. Bones are diffusely demineralized. Additional imaging with CT scan or MRI should be considered for better visualization as these modalities are much more sensitive for detection of fracture or other underlying pathology.
--- NOTE | ~2023-03-03 | XR_ITS ---
EXAMINATION: XR WRIST, BILATERAL XR HAND, BILATERAL XR SHOULDER, BILATERAL CLINICAL INFORMATION: Any signs of inflammatory arthritis? Pain. COMPARISON: Right hand 10/24/2022 TECHNIQUE: 4 views of each hand. 4 views of each shoulder.. FINDINGS: RIGHT WRIST/HAND: Vascular calcifications. Bones are diffusely demineralized. Moderate degenerative changes in the 1st carpometacarpal joint with joint space narrowing and hypertrophic change. Mild degenerative changes in scattered interphalangeal joints, most notable in the DIP joints. Suggestion of periarticular erosive changes most notable at the distal aspect of the 2nd proximal phalange. A 6 mm cystic lucency at the distal aspect of the 2nd proximal phalanx. LEFT WRIST/HAND: Vascular calcifications. Bones are diffusely demineralized. Moderate degenerative changes in the 1st carpometacarpal joint with joint space narrowing and hypertrophic change. Mild degenerative changes in scattered interphalangeal joints. Periarticular erosions most notable at the PIP joint of the 2nd digit. RIGHT SHOULDER: Bones are diffusely demineralized. Catheter partially visualized overlying the mediastinum. Severe degenerative changes in the glenohumeral joint with loss of the joint space, hypertrophic change and periarticular lucencies. Scattered soft tissue calcifications may be vascular. Moderate degenerative changes in the acromioclavicular joint. LEFT SHOULDER: Bones are diffusely demineralized. Pacer overlies the upper left thorax. Severe degenerative changes in the glenohumeral joint with loss of the joint space, hypertrophic change and periarticular lucencies. Scattered soft tissue calcifications may be vascular. Moderate degenerative changes in the acromioclavicular joint. XR/XR hand wrist LT IMPRESSION: 1. Scattered degenerative changes in bilateral hands as detailed above. 2. Severe degenerative changes in the bilateral glenohumeral joints. 3. Bones are diffusely demineralized. Additional imaging with CT scan or MRI should be considered for better visualization as these modalities are much more sensitive for detection of fracture or other underlying pathology.
--- NOTE | ~2023-03-03 | XR_ITS ---
EXAMINATION: XR WRIST, BILATERAL XR HAND, BILATERAL XR SHOULDER, BILATERAL CLINICAL INFORMATION: Any signs of inflammatory arthritis? Pain. COMPARISON: Right hand 10/24/2022 TECHNIQUE: 4 views of each hand. 4 views of each shoulder.. FINDINGS: RIGHT WRIST/HAND: Vascular calcifications. Bones are diffusely demineralized. Moderate degenerative changes in the 1st carpometacarpal joint with joint space narrowing and hypertrophic change. Mild degenerative changes in scattered interphalangeal joints, most notable in the DIP joints. Suggestion of periarticular erosive changes most notable at the distal aspect of the 2nd proximal phalange. A 6 mm cystic lucency at the distal aspect of the 2nd proximal phalanx. LEFT WRIST/HAND: Vascular calcifications. Bones are diffusely demineralized. Moderate degenerative changes in the 1st carpometacarpal joint with joint space narrowing and hypertrophic change. Mild degenerative changes in scattered interphalangeal joints. Periarticular erosions most notable at the PIP joint of the 2nd digit. RIGHT SHOULDER: Bones are diffusely demineralized. Catheter partially visualized overlying the mediastinum. Severe degenerative changes in the glenohumeral joint with loss of the joint space, hypertrophic change and periarticular lucencies. Scattered soft tissue calcifications may be vascular. Moderate degenerative changes in the acromioclavicular joint. LEFT SHOULDER: Bones are diffusely demineralized. Pacer overlies the upper left thorax. Severe degenerative changes in the glenohumeral joint with loss of the joint space, hypertrophic change and periarticular lucencies. Scattered soft tissue calcifications may be vascular. Moderate degenerative changes in the acromioclavicular joint. XR/XR shoulder RT min 2V IMPRESSION: 1. Scattered degenerative changes in bilateral hands as detailed above. 2. Severe degenerative changes in the bilateral glenohumeral joints. 3. Bones are diffusely demineralized. Additional imaging with CT scan or MRI should be considered for better visualization as these modalities are much more sensitive for detection of fracture or other underlying pathology.
[2023-03-03 12:25] LABS: MANUAL DIFF FLAG NO
[2023-03-03 12:56] LABS: Basophils Absolute Auto 0.1 X10*3/uL (0.0-0.2); Basophils Percent Auto 0.9 % (0-2); Eosinophils Absolute Auto 0.2 X10*3/uL (0.0-0.4); Eosinophils Percent Auto 2.8 % (0-4); Hematocrit 37.3 % (42.0-52.0); Hemoglobin 12.6 g/dl (14.0-18.0); Imm Gran Abs Auto 0.04 X10*3/uL (0.00-0.03); Imm Gran Pct Auto 0.7 % (0.0-0.4); Lymphocytes Absolute Auto 0.8 X10*3/uL (1.2-4.9); Lymphocytes Percent Auto 14.6 % (20-40); Mean Corpuscular HGB Conc 33.8 g/dl (31.0-36.0); Mean Corpuscular Hemoglobin 32.8 pg (27.0-33.0); Mean Corpuscular Volume 97.1 fL (80.0-98.0); Mean Platelet Volume 9.4 fL (9.4-12.4); Monocytes Absolute Auto 0.6 X10*3/uL (0.1-1.2); Monocytes Percent Auto 10.9 % (2-11); Neutrophils Percent Auto 70.1 % (45-73); Platelet Count 169 X10*3/uL (160-400); Red Blood Count 3.84 X10*6/uL (4.60-5.80); Red Cell Distribution Width 14.8 % (11.0-16.0); White Blood Count 5.7 X10*3/uL (4.8-10.8)
[2023-03-03 13:37] LABS: Erythrocyte Sedimentation Rate 77 MM/HR (0-15)
[2023-03-03 14:04] LABS: Rheumatoid Factor 16.9 IU/mL (<15.0)
[2023-03-03 14:07] LABS: C Reactive Protein 3.79 mg/dL (< or = 0.50); Uric Acid 2.9 mg/dL (3.4-7.0)
[2023-03-04 09:10] LABS: HBc Num1 0.19 S/CO (0.00-0.79); HBsAGNum1 0.31 S/CO (0.00-0.99); Hepatitis A Antibody IgM 0.21 Index (0-0.79); Hepatitis B Core Antibody Nonreactive (Nonreactive); Hepatitis B Surface Antigen Negative (Negative); ~Hepatitis A Antibody IgM Nonreactive (Nonreactive); ~Hepatitis B Surface Antibody REACTIVE (Nonreactive); ~Hepatitis C Antibody Nonreactive (Nonreactive)
[2023-03-04 12:09] LABS: Complement C3 161 mg/dL (82-185)
[2023-03-04 13:28] LABS: Anti DNA DS Antibody 4 IU/mL; Antibody to SS-A Antigen <1.0 NEG AI (<1.0 NEG); Antibody to SS-B Antigen <1.0 NEG AI (<1.0 NEG); SM/Ribonucleoprotein Ab <1.0 NEG AI (<1.0 NEG); Smith Protein <1.0 NEG AI (<1.0 NEG)
[2023-03-04 15:29] LABS: Cyclic Citrullinated Peptide <16 UNITS
[2023-03-05 11:43] LABS: IgA 525 mg/dL (70-320); IgG 1453 mg/dL (600-1540); IgM 176 mg/dL (50-300)
[2023-03-05 13:04] LABS: Prot Elec - Albumin 3.8 g/dL (3.8-4.8); Prot Elec - Alpha1 0.5 g/dL (0.2-0.3); Prot Elec - Alpha2 0.9 g/dL (0.5-0.9); Prot Elec - Beta 1 0.4 g/dL (0.4-0.6); Prot Elec - Beta 2 0.6 g/dL (0.2-0.5); Prot Elec - Gamma 1.4 g/dL (0.8-1.7); Prot Elec - Total Protein 7.6 g/dL (6.1-8.1)
== END 2023-03-03 10:46 | disposition home or self-care (01) ==
LOC: HO.XRAY 10:45
PROVIDERS: PCP Internal Medicine; Visit Provider Student in an Organized Health Care Education/Training Program
DX: M32.9 Systemic lupus erythematosus, unspecified (principal); M19.90 Unspecified osteoarthritis, unspecified site; M25.512 Pain in left shoulder; M25.511 Pain in right shoulder; N18.6 End stage renal disease; M1A.00X0 Idiopathic chronic gout, unspecified site, without tophus (tophi); Z99.2 Dependence on renal dialysis; Z11.59 Encounter for screening for other viral diseases; Z79.899 Other long term (current) drug therapy; Z72.89 Other problems related to lifestyle
CPT/HCPCS: 36415; 73030; 73110; 73130; 82784; 84165; 84550; 85025; 85652; 86140; 86160; 86200; 86225; 86235; 86334; 86431; 86704; 86706; 86709; 86803; 87340; 99212

== ENCOUNTER 2023-03-10 09:45 | Outpatient (REF) | payer OTHER, SELFPAY ==
[2023-03-10 10:43] LABS: Appearance Urine Cloudy; Color Urine Yellow; Glucose Urine UA Negative (Negative); Leukocyte Esterase Urine Small (1+) (Negative); Nitrite Urine Negative (Negative); Specific Gravity - Urine 1.015 (1.005-1.025); UMIC TRIGGER UA YES; Urine Blood Negative (Negative); Urine Ketones Negative (Negative); Urine Protein 30 (1+) mg/dL (Neg-Trace)
[2023-03-10 10:48] LABS: Bacteria Urine None Seen (None Seen); RBC Urine 0-2 /HPF (0-2)
[2023-03-10 10:58] LABS: Creatinine Urine 94.98 mg/dL; Protein/Creatinine Ratio, Ur 0.58 (<0.2); Total Protein Urine Random 55 mg/dL (<12)
== END 2023-03-10 09:46 | disposition home or self-care (01) ==
LOC: HO.LNPL 09:45
PROVIDERS: Visit Provider Student in an Organized Health Care Education/Training Program
DX: M32.9 Systemic lupus erythematosus, unspecified (principal)
CPT/HCPCS: 81001; 82570; 84156

== ENCOUNTER 2023-04-06 14:01 | Outpatient (AMB) | payer OTHER, SELFPAY ==
[2023-04-06 14:03] VITALS: BP 124/60; PULSE 95; O2SAT 100; BMI 29.0
--- NOTE | 2023-04-06 14:03 | A.OFFPC_ITS ---
Vital Signs 04/06/23 14:03 Height 5 ft 11 in Weight 208 lb BMI 29.0 BP 124/60 Blood Pressure Location Lt brachial Position Sitting Pulse 95 Pulse Source Pulse Oximeter Temp Source Skin Pulse Oximetry (%) 100 Oxygen Delivery Method Room Air Intake Visit Reasons: DM Skin Care Specialist Required: No Allergies No Known Allergies [No Known Allergies*] Allergy (Verified 04/06/23 14:03) Medication List - Last Reconciled 04/06/23 by Steve Dawn Po, albuterol sulfate 90 mcg/actuation (ProAir HFA) 2 puffs inhalation Q6H PRN amlodipine 5 mg PO DAILY Anoro Ellipta 62.5-25 mcg/actuation (umeclidinium-vilanterol) 1 ea inhalation DAILY NS [APAP 5-15 cm H20 humidified AIR As directed] apixaban 2.5 mg PO BID bisacodyl (Dulcolax (bisacodyl)) 10 mg (2 x 5 mg) PO ONCE 1 day blood sugar diagnostic (FreeStyle Lite Strips) As directed check the BS BID blood-glucose meter (FreeStyle Lite Meter kit) As directed compr.stocking,thigh,reg,x-lrg As directed 20-30 mm HG kylah.stocking,knee,reg,xlrg As directedcompression stockings bilateral adjustable lower extremity garments ferrous sulfate 325 mg PO DAILY [Juxta Lite Compression wraps - Adjustable -for chronic ulcers with open wounds bilat lower extremities As directed] ketoconazole 2% appl topical DAILY lancets (FreeStyle Lancets) As directed check BS BID metoprolol tartrate 12.5 mg (1/2 x 25 mg) PO BID omeprazole 40 mg PO BID polyethylene glycol 3350 (Miralax) 17 grams PO DAILY PRN pravastatin 20 mg PO DAILY sucralfate 1 g PO BID Tobacco use date assessed: 04/06/23 Fall risk assessment: No Falls in past year Last assessed Fall Risk: 04/06/23 Dental Screening Dental Screen Date: 04/06/23 Did you have a dental visit in the last 12 months?: Yes Did you have a dental problem in the last 6 months where you did not have access to dental care?: No Was dental information given to patient?: Patient has dentist HPI DM HPI Details 68-year-old overweight male with multipl e medical problems diabetes mellitus obstructive sleep apnea hypercholesterolemia hypertension COPD depression atrial fibrillation with congestive heart failure SLE coming in for follow-up. Last seen in July 2022 patient did have colonoscopy done November 2022 with the end-stage renal disease patient had the creation of for a right ulnar artery 2 0 ulnar vein ENDO AV fistula with wave line Q 01/21/2023. For the dialysis. Patient also follows up with Rheumatology with SLE bilateral shoulder pain patient was advised blood work and started on prednisone x-ray did show severe degenerative changes in the glenohumeral joints for the SLE patient also had GI bleed had capsule endoscopy under gastroenterology showing esophagitis, duodenitis cobblestone appearance checking celiac serology. Patient has been seeing the nurse practitioner for follow-up for the hospital admission for GI bleed. Did and before that in October had C diff.. In September patient was in the hospital also for hematuria had a CT scan of the abdomen showing emphysematous cystitis. September 2022 [facility] emergency room for bowel perforation, had exploratory lap had the bradycardia [facility] Medical History (Updated 04/06/23 @ 14:48 by Steve Nguyen MD) HTN (hypertension) SLE (systemic lupus erythematosus related syndrome) Dermatitis associated with moisture from stool incontinence Clostridioides difficile diarrhea Urinary retention with incomplete bladder emptying Pacemaker Pancytopenia CKD (chronic kidney disease) stage 4, GFR 15-29 ml/min Incomplete emptying of bladder due to benign prostatic hyperplasia Acute kidney injury superimposed on chronic kidney disease Fistula Paroxysmal A-fib Diastolic heart failure Pulmonary hypertension Depression, major Afib Bradycardia Scrotal edema Anasarca Cirrhosis Lymphedema Type 2 diabetes mellitus with hyperglycemia Osteoarthritis Peripheral neuropathy Obstructive sleep apnea BPH (benign prostatic hyperplasia) Venous stasis dermatitis Obesity (BMI 30-39.9) Hypercholesterolemia Peripheral vascular disease Pulmonary hypertension Essential thrombocytopenia Anemia COPD (chronic obstructive pulmonary disease) Diabetic retinopathy Chronic kidney disease Lumbar degenerative disc disease High cholesterol Edema Gout Surgical History Hx of cardiac pacemaker History of bowel diversion surgery History of gastric surgery H/O prior ablation treatment History of carpal tunnel release History of bilateral cataract extraction History of tonsillectomy Family History Father Prostate cancer CVD (cardiovascular disease) Mother Hemochromatosis Brother Motor vehicle accident Sister CAD (coronary artery disease) Maternal Grandfather Myocardial infarction Social History Household Members: Spouse Housing: House Do you presently have visiting nurse or other home services: Yes Alcohol intake: never Patient Tobacco Use Status: Former Tobacco user Tobacco use type: Cigarette e-Cigarette/Vaping Use: Former Use Second Hand Smoke Exposure: Yes Substance Use Type: Marijuana service: No Current occupational status: retired Cognitive needs: Yes Hearing needs: Yes Vision needs: Yes Questionnaire Thrive Questionnaire Date Thrive assessed: 07/17/22 AUDIT C Alcohol Use Questionnaire (AUDIT-C) 1. How often do you have a drink containing alcohol?: Never 3. How often do you have six or more drinks on one occasion?: Never Total Score: 0 RADHA-7 AMB Questionnaire RADHA-7 Date RADHA - 7 assessed: 07/17/22 Source: Developed by Drs. Milton Ferrer, Shanna Fischer, Marc Hunt and colleagues, with an educational kaur from [employer]. Physical exam (Primary Care) Vital Signs: Last Vital Signs Pulse 95 04/06/23 14:03 BP 124/60 04/06/23 14:03 Pulse Ox 100 04/06/23 14:03 Oxygen Delivery Method Room Air 04/06/23 14:03 BMI result Body Mass Index 29.0 Tobacco/Smoking Status: Tobacco use Status Tobacco use date assessed 04/06/23 04/06/23 14:04 Patient Tobacco Use Status Former Tobacco user 04/06/23 14:04 Tobacco use type Cigarette 04/06/23 14:04 e-Cigarette/Vaping Use Former Use 04/06/23 14:04 Thrive Assessment: Date of Thrive Assessment Date Thrive assessed 07/17/22 04/06/23 14:04 Const General: alert; No acute distress Eyes Conjunctivae: conjunctivae normal Resp Auscultation: clear to auscultation bilaterally Cardio Rate: regular rate Rhythm: regular rhythm GI Inspection: Yes normal to inspection Extrem Other: Lower extremity 1+ edema bilaterally with scaly skin General: Yes edema Results AMB Hemoglobin A1c AMB Hemoglobin A1c 6.0 % Last Edit by PAULA Rosado on 04/06/23 14:23 Results Reviewed Results Reviewed: Laboratory Last Values Hgb A1c (Clinic) 6.0 % (4.0-6.0) 04/06/23 14:16 Assessment and Plan Assessment & Plan (1) Hypercholesterolemia: Code(s): E78.00 - Pure hypercholesterolemia, unspecified Plan: Avoid fried foods, chicken skin, eggs, butter margarine, pastries and meat. Be it pork or beef they have a lot of cholesterol LDL goal of less than 100 and triglyceride of less than 150 on pravastatin 20 mg once a day (2) GERD (gastroesophageal reflux disease): Code(s): K21.9 - Gastro-esophageal reflux disease without esophagitis Plan: Avoid the foods that causes that usually spicy foods, tomato products, juices, coffee, soda and foods that your sensitive to. After eating do not lie down, allow 3-4 hours before in lie down. And keep the head of bed above 30 degrees to avoid the acid from going up. (3) Recurrent major depression: Comment: decline referral for counselling presently Code(s): F33.9 - Major depressive disorder, recurrent, unspecified Plan: Continue with present medication (4) Bowel perforation: Comment: August 2022 Code(s): K63.1 - Perforation of intestine (nontraumatic) Plan: Stable (5) ESRD (end stage renal disease): Code(s): N18.6 - End stage renal disease Plan: On dialysis continued follow-up with Nephrology (6) Afib: Code(s): I48.91 - Unspecified atrial fibrillation Plan: Continue with anticoagulation with apixaban to 2.5 mg twice a day (7) SLE (systemic lupus erythematosus related syndrome): Code(s): M32.9 - Systemic lupus erythematosus, unspecified Plan: Continue to monitor (8) HTN (hypertension): Comment: May 2013 perfusion negative echo EF 60-65% Code(s): I10 - Essential (primary) hypertension Qualifiers: Hypertension type: essential hypertension Qualified Code(s): I10 - Essential (primary) hypertension Orders: Orders Pneumococcal 20 Immunization Today Z23 - Encounter for immunization Complete Blood Count Auto Diff Today K21.9 - Gastro-esophageal reflux disease without esophagitis Comprehensive Met. Panel Today K21.9 - Gastro-esophageal reflux disease without esophagitis Lipid Panel Today E78.00 - Pure hypercholesterolemia, unspecified, K21.9 - Gastro-esophageal reflux disease without esophagitis Thyroid Stimulating Hormone Today K21.9 - Gastro-esophageal reflux disease without esophagitis Free T4 (Free Thyroxine) Today K21.9 - Gastro-esophageal reflux disease without esophagitis Vitamin B12 and Folate Today K21.9 - Gastro-esophageal reflux disease without esophagitis Prostate Specific Antigen Scr Today K21.9 - Gastro-esophageal reflux disease without esophagitis Ferritin Today K21.9 - Gastro-esophageal reflux disease without esophagitis AMB Hemoglobin A1c Today Z13.9 - Encounter for screening, unspecified IRON PROFILE Today K21.9 - Gastro-esophageal reflux disease without esophagitis Reticulocyte Count Today K21.9 - Gastro-esophageal reflux disease without esophagitis Medications: New pneumoc 20-dejuan conj-dip cr(PF) 0.5 mL IM ONCE 0.5 mL 0RF Z23 - Encounter for immunization tramadol 50 mg PO BEDTIME 30 tabs 0RF M25.511 - Pain in right shoulder, M25.512 - Pain in left shoulder amlodipine 5 mg PO DAILY 90 tabs 1RF I10 - Essential (primary) hypertension Changed From metoprolol tartrate 12.5 mg (1/2 x 25 mg) PO BID 30 tabs 0RF I10 - Essential (primary) hypertension To metoprolol tartrate 12.5 mg (1/2 x 25 mg) PO BID 90 days 90 tabs 1RF I10 - Essential (primary) hypertension Coding Level of Care Code Est Pt Level 4 (92562) Diagnoses Hypercholesterolemia E78.00 GERD (gastroesophageal reflux disease) K21.9 Recurrent major depression F33.9 Bowel perforation K63.1 ESRD (end stage renal disease) N18.6 Afib I48.91 SLE (systemic lupus erythematosus related syndrome) M32.9 Essential hypertension I10 Hypertension type: essential hypertension
== END 2023-04-06 15:09 | disposition home or self-care (01) ==
PROVIDERS: PCP Internal Medicine; Visit Provider Internal Medicine
DX: Z23 Encounter for immunization (principal); E11.22 Type 2 diabetes mellitus with diabetic chronic kidney disease; I12.0 Hypertensive chronic kidney disease with stage 5 chronic kidney disease or end stage renal disease; N18.6 End stage renal disease; F33.9 Major depressive disorder, recurrent, unspecified; M32.9 Systemic lupus erythematosus, unspecified; I48.91 Unspecified atrial fibrillation
CPT/HCPCS: 83036; 90471; 90677; 99214

== ENCOUNTER 2023-04-08 08:04 | Outpatient (AMB) | payer OTHER, SELFPAY ==
[2023-04-08 08:14] VITALS: BP 122/74; PULSE 56; TEMP 36.2; O2SAT 99; BMI 28.9
--- NOTE | 2023-04-08 08:14 | MHC.OFFVIS ---
Intake Vital Signs 04/08/23 08:14 Height 5 ft 11 in Weight 207 lb 7.28 oz BMI 28.9 BP 122/74 Blood Pressure Location Lt brachial Position Sitting Pulse 56 Pulse Source Pulse Oximeter Temp 97.1 F Temp Source Skin Pulse Oximetry (%) 99 Intake Visit Reasons: sle Intake Note: Pt presents today for follow up on bl shoulder pain/stiffness and test results. Completed prednisone taper. Continues to have pain and stiffness in [place]. Saw PCP prescribed tramadol but he hasn't picked it up yet. Hog Tender Required: No Accompanied by: Self / Same As Patient Allergies No Known Allergies [No Known Allergies*] Allergy (Verified 04/08/23 08:16) Medication List - Last Reconciled 04/08/23 by Colton Reyna MD albuterol sulfate 90 mcg/actuation (ProAir HFA) 2 puffs inhalation Q6H PRN amlodipine 5 mg PO DAILY Anoro Ellipta 62.5-25 mcg/actuation (umeclidinium-vilanterol) 1 ea inhalation DAILY NS [APAP 5-15 cm H20 humidified AIR As directed] apixaban 2.5 mg PO BID bisacodyl (Dulcolax (bisacodyl)) 10 mg (2 x 5 mg) PO ONCE 1 day blood sugar diagnostic (FreeStyle Lite Strips) As directed check the BS BID blood-glucose meter (FreeStyle Lite Meter kit) As directed compr.stocking,thigh,reg,x-lrg As directed 20-30 mm HG kylah.stocking,knee,reg,xlrg As directedcompression stockings bilateral adjustable lower extremity garments ferrous sulfate 325 mg PO DAILY hydroxychloroquine 200 mg PO Q OTHER DAY [Juxta Lite Compression wraps - Adjustable -for chronic ulcers with open wounds bilat lower extremities As directed] ketoconazole 2% appl topical DAILY lancets (FreeStyle Lancets) As directed check BS BID metoprolol tartrate 12.5 mg (1/2 x 25 mg) PO BID 90 days omeprazole 40 mg PO BID polyethylene glycol 3350 (Miralax) 17 grams PO DAILY PRN pravastatin 20 mg PO DAILY prednisone 15 mg (3 x 5 mg) PO DAILY sevelamer carbonate mg PO sucralfate 1 g PO BID tramadol 50 mg PO BEDTIME HPI HPI Comments History of Present Illness Details 68-year-old male with SLE returns for follow-up, patient took prednisone taper as prescribed. Stated that when he was taking the higher doses he felt some relief and improvement in his shoulder pain and stiffness. Today he feels about the same as when I saw him last visit. States that he was eating a little more when he was on prednisone. He completed prednisone taper 5 days ago. Mentions that he has triggering of both ring fingers. INITIAL HISTORY: This is a 68-year-old male with a past medical history of SLE, gout who presents for follow-up. He was last seen by Dr. Birch 2 years ago. Patient was admitted to the hospital in July of 2022 and discharged in November of 2022. Patient had a GI bleed, he had other complications including acute on chronic CKD which turned into end-stage CKD, now he is on hemodialysis. He had a pacemaker placed. He also had multiple infections. He has lost 80 lb since then. Over the last 6-7 months patient has been having bilateral shoulder pain and stiffness. Gets intermittent ankle swelling. He has not been on the hydroxychloroquine for more than a year as he was not able to get any refills. He is not taking allopurinol but has not had any gout flares recently. He denies any skin rashes. [facility] Medical History HTN (hypertension) Dermatitis associated with moisture from stool incontinence Clostridioides difficile diarrhea Urinary retention with incomplete bladder emptying Pacemaker Pancytopenia CKD (chronic kidney disease) stage 4, GFR 15-29 ml/min Incomplete emptying of bladder due to benign prostatic hyperplasia Acute kidney injury superimposed on chronic kidney disease Fistula Paroxysmal A-fib Diastolic heart failure Pulmonary hypertension Depression, major Afib Bradycardia Scrotal edema Anasarca Cirrhosis Lymphedema Type 2 diabetes mellitus with hyperglycemia Osteoarthritis Peripheral neuropathy Obstructive sleep apnea BPH (benign prostatic hyperplasia) Venous stasis dermatitis Obesity (BMI 30-39.9) Hypercholesterolemia Peripheral vascular disease Pulmonary hypertension Essential thrombocytopenia Anemia COPD (chronic obstructive pulmonary disease) Diabetic retinopathy Chronic kidney disease Lumbar degenerative disc disease High cholesterol Edema Gout Surgical History Hx of cardiac pacemaker History of bowel diversion surgery History of gastric surgery H/O prior ablation treatment History of carpal tunnel release History of bilateral cataract extraction History of tonsillectomy Family History Father Prostate cancer CVD (cardiovascular disease) Mother Hemochromatosis Brother Motor vehicle accident Sister CAD (coronary artery disease) Maternal Grandfather Myocardial infarction Social History Household Members: Spouse Housing: House Do you presently have visiting nurse or other home services: Yes Alcohol intake: never Patient Tobacco Use Status: Former Tobacco user Tobacco use type: Cigarette e-Cigarette/Vaping Use: Former Use Second Hand Smoke Exposure: Yes Substance Use Type: Marijuana service: No Current occupational status: retired Cognitive needs: Yes Hearing needs: Yes Vision needs: Yes Review of Systems Musc Reports arthralgias, Reports joint swelling and Reports stiffness Skin/Breast Reports dry skin, Denies rash and Reports unusual bruising Physical Exam Vital Signs: Last Vital Signs Temp 97.1 F 04/08/23 08:14 Pulse 56 04/08/23 08:14 BP 122/74 04/08/23 08:14 Pulse Ox 99 04/08/23 08:14 BMI result Body Mass Index 28.9 Const General: cooperative and poor hygiene Nutritional Appearance: overweight Limitations: ambulation with walker HEENT Other: Bilateral temporal wasting Mouth: moist mucous membranes Resp Effort & Inspection: normal respiratory effort and able to speak in complete sentences Cardio Other: Pacemaker left upper chest and PermCath right upper chest Rhythm: abnormal rhythm Skin Other: Dry skin on both lower extremities Extrem Other: Osteoarthritic changes of both hands Mild flexure contracture of multiple PIPs Right 1st MCP swelling without tenderness Triggering of right ring finger No wrist swelling tenderness or pain with full range of motion No elbow swelling or tenderness or pain with range of motion Bilateral significantly limited abduction of both shoulders Painful flexion of both shoulders Bilateral knee osteoarthritis, crepitus with knee flexion Normal nailfold capillaroscopy Assessment & Plan Assessment & Plan (1) SLE (systemic lupus erythematosus related syndrome): Code(s): M32.9 - Systemic lupus erythematosus, unspecified Plan: This is a 68-year-old male previously diagnosed with SLE based on positive MARISEL 1-320 homogeneous, low titer 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 He was on hydroxychloroquine 200 mg every other day. Could not tolerate higher doses due to GI upset. Has not been on hydroxychloroquine for more than a year. Who presents with bilateral shoulder pain and stiffness. Labs show significantly elevated inflammatory markers, x-rays show significant bilateral shoulder osteoarthritis. I prescribed him a prednisone taper patient felt some improvement. On exam today his peripheral synovitis is improved, however continues to have significantly limited shoulder range of motion. His SLE activity markers are normal, he has normal dsDNA and normal C3-C4. DDx PMR versus elderly onset RA versus osteoarthritis Start prednisone 15 mg daily as a standing dose. Start hydroxychloroquine 200 mg every other day. Labs before next visit in 1 month (2) Gout: Code(s): M10.9 - Gout, unspecified Qualifiers: Gout site: unspecified site Gout etiology: idiopathic Chronicity: chronic Presence of tophus: without tophus Qualified Code(s): M1A.00X0 - Idiopathic chronic gout, unspecified site, without tophus (tophi) Plan: Has not been on allopurinol for a long period of time, has not had any gout flares recently. He is on dialysis currently, his uric acid level is 2.9 (3) Trigger finger: Code(s): M65.30 - Trigger finger, unspecified finger Qualifiers: Trigger finger location: ring finger Laterality: right Qualified Code(s): M65.341 - Trigger finger, right ring finger Plan: Triggering of her right ring finger on exam. Patient also mentions triggering of his left ring finger. Minimally symptomatic. Patient not interested in any treatment at this point Plan I spent 30 minutes reviewing patient's chart, evaluating patient, ordering diagnostic workup, counseling patient and documenting in the chart Orders: Orders Complete Blood Count Auto Diff 1 Month M32.9 - Systemic lupus erythematosus, unspecified Comprehensive Met. Panel 1 Month M32.9 - Systemic lupus erythematosus, unspecified Erythrocyte Sedimentation Rate 1 Month M32.9 - Systemic lupus erythematosus, unspecified C Reactive Protein 1 Month M32.9 - Systemic lupus erythematosus, unspecified Medications: New hydroxychloroquine 200 mg PO Q OTHER DAY 30 tabs 1RF prednisone 15 mg (3 x 5 mg) PO DAILY 90 tabs 1RF Coding Level of Care Code Est Pt Level 4 (04400) Diagnoses SLE (systemic lupus erythematosus related syndrome) M32.9 Idiopathic chronic gout without tophus, unspecified site M1A.00X0 Gout site: unspecified site Gout etiology: idiopathic Chronicity: chronic Presence of tophus: without tophus Trigger ring finger of right hand M65.341 Trigger finger location: ring finger Laterality: right
== END 2023-04-08 08:44 | disposition home or self-care (01) ==
PROVIDERS: PCP Internal Medicine; Visit Provider Student in an Organized Health Care Education/Training Program
DX: M32.9 Systemic lupus erythematosus, unspecified (principal); M1A.00X0 Idiopathic chronic gout, unspecified site, without tophus (tophi); M65.341 Trigger finger, right ring finger
CPT/HCPCS: 99214

== ENCOUNTER → 2023-04-08 08:04 | Outpatient (BNVA) | payer OTHER, SELFPAY | PROVIDERS: PCP Internal Medicine; Visit Provider Student in an Organized Health Care Education/Training Program | DX: M32.9 Systemic lupus erythematosus, unspecified (principal); M1A.00X0 Idiopathic chronic gout, unspecified site, without tophus (tophi); M65.341 Trigger finger, right ring finger | CPT/HCPCS: 99212 ==

== ENCOUNTER → 2023-04-10 23:59 | Outpatient (BNV) | payer OTHER, SELFPAY ==
--- NOTE | 2023-04-13 11:44 | MHC.OFFVIS ---
Intake Intake Visit Reasons: Remote Device Check- [facility] Allergies No Known Allergies [No Known Allergies*] Allergy (Verified 04/08/23 08:16) [facility] Medical History HTN (hypertension) Dermatitis associated with moisture from stool incontinence Clostridioides difficile diarrhea Urinary retention with incomplete bladder emptying Pacemaker Pancytopenia CKD (chronic kidney disease) stage 4, GFR 15-29 ml/min Incomplete emptying of bladder due to benign prostatic hyperplasia Acute kidney injury superimposed on chronic kidney disease Fistula Paroxysmal A-fib Diastolic heart failure Pulmonary hypertension Depression, major Afib Bradycardia Scrotal edema Anasarca Cirrhosis Lymphedema Type 2 diabetes mellitus with hyperglycemia Osteoarthritis Peripheral neuropathy Obstructive sleep apnea BPH (benign prostatic hyperplasia) Venous stasis dermatitis Obesity (BMI 30-39.9) Hypercholesterolemia Peripheral vascular disease Pulmonary hypertension Essential thrombocytopenia Anemia COPD (chronic obstructive pulmonary disease) Diabetic retinopathy Chronic kidney disease Lumbar degenerative disc disease High cholesterol Edema Gout Surgical History Hx of cardiac pacemaker History of bowel diversion surgery History of gastric surgery H/O prior ablation treatment History of carpal tunnel release History of bilateral cataract extraction History of tonsillectomy Family History Father Prostate cancer CVD (cardiovascular disease) Mother Hemochromatosis Brother Motor vehicle accident Sister CAD (coronary artery disease) Maternal Grandfather Myocardial infarction Social History Household Members: Spouse Housing: House Do you presently have visiting nurse or other home services: Yes Alcohol intake: never Patient Tobacco Use Status: Former Tobacco user Tobacco use type: Cigarette e-Cigarette/Vaping Use: Former Use Second Hand Smoke Exposure: Yes Substance Use Type: Marijuana service: No Current occupational status: retired Cognitive needs: Yes Hearing needs: Yes Vision needs: Yes Office Procedures Cardiac Device Check Cardiac Device Check Details: PPM Battery life 5.7 years. 91% V -paced. AP 80%. [id number] Cardiac Device Interrogation, pacemaker Procedure code (CPT) selection complete Assessment & Plan Assessment & Plan (1) Pacemaker: Code(s): Z95.0 - Presence of cardiac pacemaker Orders: Orders AMB Cardiac Device Follow-up 04/10/23 Z95.0 - Presence of cardiac pacemaker Coding Level of Care Code Procedure Only Diagnoses Pacemaker Z95.0 CPT Codes Cardiac Device Check - Cardiac Device 12: [id number] Cardiac Device Interrogation, pacemaker ([id number])
== END ==
PROVIDERS: PCP Internal Medicine; Visit Provider Internal Medicine Cardiovascular Disease
DX: I48.0 Paroxysmal atrial fibrillation (principal); Z95.0 Presence of cardiac pacemaker
CPT/HCPCS: 93294

== ENCOUNTER 2023-04-27 12:32 | Outpatient (AMB) | payer OTHER, SELFPAY ==
--- NOTE | 2023-04-27 12:52 | MHC.OFFVIS ---
Intake Vital Signs 04/27/23 12:57 Height 5 ft 11 in Weight 217 lb 6.012 oz BMI 30.3 BP 120/68 Blood Pressure Location Lt brachial Position Sitting Pulse 76 Pulse Source Palpation Intake Visit Reasons: 4 mth f/up Intake Note: Pt presents to the office today for a 4 month follow up. Pt states he is feeling okay and denies any SOB,chest pains or any other cardiac concerns at this time. Allergies No Known Allergies [No Known Allergies*] Allergy (Verified 04/27/23 12:57) Medication List - Last Reconciled 04/27/23 by Danny Ron MD albuterol sulfate 90 mcg/actuation (ProAir HFA) 2 puffs inhalation Q6H PRN amlodipine 5 mg PO DAILY Anoro Ellipta 62.5-25 mcg/actuation (umeclidinium-vilanterol) 1 ea inhalation DAILY NS [APAP 5-15 cm H20 humidified AIR As directed] apixaban 2.5 mg PO BID bisacodyl (Dulcolax (bisacodyl)) 10 mg (2 x 5 mg) PO ONCE 1 day blood sugar diagnostic (FreeStyle Lite Strips) As directed check the BS BID blood-glucose meter (FreeStyle Lite Meter kit) As directed compr.stocking,thigh,reg,x-lrg As directed 20-30 mm HG kylah.stocking,knee,reg,xlrg As directedcompression stockings bilateral adjustable lower extremity garments ferrous sulfate 325 mg PO DAILY hydroxychloroquine 200 mg PO Q OTHER DAY [Juxta Lite Compression wraps - Adjustable -for chronic ulcers with open wounds bilat lower extremities As directed] ketoconazole 2% appl topical DAILY lancets (FreeStyle Lancets) As directed check BS BID metoprolol tartrate 12.5 mg (1/2 x 25 mg) PO BID 90 days omeprazole 40 mg PO BID polyethylene glycol 3350 (Miralax) 17 grams PO DAILY PRN pravastatin 20 mg PO DAILY prednisone 15 mg (3 x 5 mg) PO DAILY sevelamer carbonate mg PO tramadol 50 mg PO BEDTIME HPI HPI Comments History of Present Illness Details 67-year-old gentleman who is here for follow-up. He was previously seeing Dr. Cuevas and Dr Varner at [facility]. He has background history of diabetes, obesity, obstructive sleep apnea, chronic kidney disease, peripheral vascular disease, COPD, gout, hypertension and lymphedema. He has background of junctional bradycardia and as per his report there were some discussions in the past about pacemaker placement but then it was decided not to place a pacemaker. Echocardiography showed normal biventricular function with D-shaped LV cavity pointing towards right ventricular pressure and volume overload. Echo also showed moderate to severe pulmonary hypertension he is a former smoker. Has been taking medications regularly. He was referred for pulmonology evaluation to see if he has hypoxic when he ambulates. This has shown that his saturations are normal when he walks. He has atrial fibrillation with slow ventricular response in low 40s. He has been asymptomatic and denies any chest discomfort, dizziness or syncope. He does look little in more edematous on follow-up. He is saying that he is taking the morning dose of Lasix but not taking the afternoon does regularly. He is supposed to be on 120 mg Lasix in the morning and 80 in the afternoon. Because of progressive kidney disease he had left arm AV fistula placed but since then he has swelling of the left hand and unable to use the left hand and unable to make a fist. He is saying he is going back for surgery where they are going to ligate the AV fistula and make a new 1 in the upper arm. He also had 1 episode of central chest tightness at rest which happen few days ago. He is saying it lasted for few minutes and then resolved. It has not recurred since then. He was referred for stress test but could not exercise signifcantly on treadmill and stress was very limited. 09/2022: He is returning about admission at [facility] for abdominal pain. He had bowel perforation and underwent surgery. His BP was low and his medications were held. He as finished rehab and came back home 2 days ago. He has not been taking the Lasix. He has edema. He has PETERSEN. 12/24/22: He returns for follow-up. He has lost significant weight. Since last visit, he has been started on hemodialysis. He also had admission with severe anemia and was transfused. He is here for follow-up with his . He is planning to undergo vascular surgery to have AV fistula formation on the left arm. He is significantly frail. He is walking with a walker. With ambulation inside the house he has no significant chest discomfort or shortness of breath. He is describing 1 episode of right-sided chest discomfort which lasted for 30 minutes at rest few days ago but it has not been a recurrent symptom for him. With ambulation he currently has no chest discomfort. 04/27/2023: He returns for follow up. He looks better than before. He is saying his appetite is improving. Does not look as frail as he was last time. He is denying shortness of breath. He does get off and on left-sided pressure-like feeling lasting for few seconds at rest. He is saying with activities he does not get any discomfort in his chest. Overall he is clinically stable. Blood pressure control is good. REPLACED BY [facility] Medical History HTN (hypertension) Dermatitis associated with moisture from stool incontinence Clostridioides difficile diarrhea Urinary retention with incomplete bladder emptying Pacemaker Pancytopenia CKD (chronic kidney disease) stage 4, GFR 15-29 ml/min Incomplete emptying of bladder due to benign prostatic hyperplasia Acute kidney injury superimposed on chronic kidney disease Fistula Paroxysmal A-fib Diastolic heart failure Pulmonary hypertension Depression, major Afib Bradycardia Scrotal edema Anasarca Cirrhosis Lymphedema Type 2 diabetes mellitus with hyperglycemia Osteoarthritis Peripheral neuropathy Obstructive sleep apnea BPH (benign prostatic hyperplasia) Venous stasis dermatitis Obesity (BMI 30-39.9) Hypercholesterolemia Peripheral vascular disease Pulmonary hypertension Essential thrombocytopenia Anemia COPD (chronic obstructive pulmonary disease) Diabetic retinopathy Chronic kidney disease Lumbar degenerative disc disease High cholesterol Edema Gout Surgical History Hx of cardiac pacemaker History of bowel diversion surgery History of gastric surgery H/O prior ablation treatment History of carpal tunnel release History of bilateral cataract extraction History of tonsillectomy Family History Father Prostate cancer CVD (cardiovascular disease) Mother Hemochromatosis Brother Motor vehicle accident Sister CAD (coronary artery disease) Maternal Grandfather Myocardial infarction Social History (Updated 04/27/23 @ 13:22 by Nayla Gee MA) Household Members: Spouse Housing: House Do you presently have visiting nurse or other home services: Yes Alcohol intake: never Patient Tobacco Use Status: Former Tobacco user Tobacco use type: Cigarette e-Cigarette/Vaping Use: Former Use Second Hand Smoke Exposure: Yes service: No Current occupational status: retired Cognitive needs: Yes Hearing needs: Yes Vision needs: Yes Physical Exam Vital Signs: Last Vital Signs Pulse 76 04/27/23 12:57 BP 120/68 04/27/23 12:57 BMI result Body Mass Index 30.3 GENERAL APPEARANCE: in no acute distress. SKIN: no suspicious lesions, warm and dry. HEART: no murmurs, regular rate and rhythm. LUNGS: Lungs clear to auscultation ABDOMEN: soft, nontender. EXTREMITIES: Chronic changes from lymphedema. Mild edema. PERIPHERAL PULSES: equal. NEUROLOGIC: No gross deficits, AAO X 3 Assessment & Plan Assessment & Plan (1) HTN (hypertension): Comment: May 2013 perfusion negative echo EF 60-65% Code(s): I10 - Essential (primary) hypertension Qualifiers: Hypertension type: essential hypertension Qualified Code(s): I10 - Essential (primary) hypertension (2) Pacemaker: Code(s): Z95.0 - Presence of cardiac pacemaker (3) Afib: Code(s): I48.91 - Unspecified atrial fibrillation (4) Chest pain: Code(s): R07.9 - Chest pain, unspecified Plan Pleasant 68-year-old gentleman who is here for follow-up. He has history of bradycardia and had permanent pacemaker placed in the past. He has atrial fibrillation and has been apixaban. He has ESRD and has been undergoing hemodialysis 3 times a week. He also has background of SLE. Denying any shortness of breath and overall has been doing quite well with hemodialysis at this stage. He has non anginal chest pain at this stage. I have advised him that if he gets any discomfort in the chest with activity then he should reach out to us. Currently no further workup is required for this. Blood pressure control is good. He will see us back in 3 months. Thank you for allowing me to participate in the care of your patient. Please feel free to contact me if you have any questions. Coding Level of Care Code Est Pt Level 4 (70037) Diagnoses Essential hypertension I10 Hypertension type: essential hypertension Pacemaker Z95.0 Afib I48.91 Chest pain R07.9
[2023-04-27 12:57] VITALS: BP 120/68; PULSE 76; BMI 30.3
== END 2023-04-27 13:35 | disposition home or self-care (01) ==
PROVIDERS: PCP Internal Medicine; Visit Provider Internal Medicine Cardiovascular Disease
DX: I10 Essential (primary) hypertension (principal); Z95.0 Presence of cardiac pacemaker; I48.91 Unspecified atrial fibrillation; R07.9 Chest pain, unspecified
CPT/HCPCS: 99214

== ENCOUNTER → 2023-04-27 12:32 | Outpatient (BNVA) | payer OTHER, SELFPAY | PROVIDERS: PCP Internal Medicine; Visit Provider Internal Medicine Cardiovascular Disease | DX: I48.91 Unspecified atrial fibrillation (principal); I10 Essential (primary) hypertension; R07.9 Chest pain, unspecified; Z95.0 Presence of cardiac pacemaker | CPT/HCPCS: 99212 ==

== ENCOUNTER 2023-05-12 10:17 | Outpatient (REF) | payer OTHER, SELFPAY ==
[2023-05-12 10:40] LABS: MANUAL DIFF FLAG NO
[2023-05-12 11:31] LABS: Immature Retic Fraction 19.2 % (2.3-13.4); Reticulocyte Percent 2.8 % (0.5-1.8); Reticulocytes Absolute 0.084 X10*6/uL (0.026-0.095)
[2023-05-12 11:33] LABS: Basophils Percent Auto 0.5 % (0-2); Hematocrit 30.3 % (42.0-52.0); Hemoglobin 10.4 g/dl (14.0-18.0); Imm Gran Abs Auto 0.05 X10*3/uL (0.00-0.03); Imm Gran Pct Auto 0.9 % (0.0-0.4); Lymphocytes Absolute Auto 0.7 X10*3/uL (1.2-4.9); Lymphocytes Percent Auto 12.4 % (20-40); Mean Corpuscular HGB Conc 34.3 g/dl (31.0-36.0); Mean Corpuscular Hemoglobin 34.1 pg (27.0-33.0); Mean Corpuscular Volume 99.3 fL (80.0-98.0); Mean Platelet Volume 9.8 fL (9.4-12.4); Monocytes Absolute Auto 0.5 X10*3/uL (0.1-1.2); Monocytes Percent Auto 9.1 % (2-11); Neutrophils Absolute Auto 4.3 x10*3/uL (2.0-8.3); Neutrophils Percent Auto 77.1 % (45-73); Platelet Count 132 X10*3/uL (160-400); Red Blood Count 3.05 X10*6/uL (4.60-5.80); Red Cell Distribution Width 16.6 % (11.0-16.0); White Blood Count 5.6 X10*3/uL (4.8-10.8)
[2023-05-12 12:03] LABS: Alanine Aminotransferase 17 U/L (0-40); Albumin Level 3.8 g/dL (3.5-5.0); Alkaline Phosphatase 98 U/L (39-117); Anion Gap 16 (12-20); Aspartate Amino Transferase 10 U/L (5-37); Bilirubin Total 0.7 mg/dL (0.0-1.0); Blood Urea Nitrogen 23 mg/dL (9-16); C Reactive Protein 8.09 mg/dL (< or = 0.50); Calcium 9.3 mg/dL (8.4-10.2); Carbon Dioxide 31 mmol/L (22-29); Chloride 98 mmol/L (96-108); Estimated Glomerular Filt Rate 16; Glucose Random 119 mg/dL (60-115); Potassium 3.7 mmol/L (3.3-5.1); Sodium 141 mmol/L (135-145); Total Protein 7.4 g/dL (6.5-8.0)
[2023-05-12 12:04] LABS: Erythrocyte Sedimentation Rate 69 MM/HR (0-15)
[2023-05-12 12:33] LABS: Cholesterol 179 mg/dL (<200); HDL Cholesterol 54 mg/dL (>40); Iron 70 mcg/dL (45-160); LDL Cholesterol Calculated 110 mg/dL (<100); Percent Iron Saturation 34 % (15-50); Total Iron Binding Capacity 203 mcg/dL (228-428); Triglycerides 78 mg/dL (<150); Unsaturated Iron Binding 133 ug/dL
[2023-05-12 12:37] LABS: Folate 7.4 ng/mL (> or = 4.0); Prostate Specific Antigen Scr 0.89 ng/mL (<0.05-4.0); Vitamin B12 649 pg/mL (200-900)
[2023-05-12 12:39] LABS: Free T4 (Free Thyroxine) 1.06 ng/dL (0.71-1.85); Thyroid Stimulating Hormone 0.88 uIU/mL (0.32-4.0)
[2023-05-12 13:04] LABS: Ferritin 1678 ng/mL (20-250)
== END 2023-05-12 10:18 | disposition home or self-care (01) ==
LOC: HO.LAB 10:17
PROVIDERS: Absent Provider Student in an Organized Health Care Education/Training Program; PCP Internal Medicine; Visit Provider Internal Medicine
DX: Z12.5 Encounter for screening for malignant neoplasm of prostate (principal); M32.9 Systemic lupus erythematosus, unspecified; K21.9 Gastro-esophageal reflux disease without esophagitis; E78.00 Pure hypercholesterolemia, unspecified; D64.9 Anemia, unspecified
CPT/HCPCS: 36415; 80053; 80061; 82607; 82728; 82746; 83540; 84153; 84439; 84443; 85025; 85045; 85652; 86140

== ENCOUNTER 2023-05-13 08:10 | Outpatient (AMB) | payer OTHER, SELFPAY ==
[2023-05-13 08:12] VITALS: BP 128/64; PULSE 75; TEMP 35.8; O2SAT 100; BMI 30.1
--- NOTE | 2023-05-13 08:12 | MHC.OFFVIS ---
Intake Vital Signs 05/13/23 08:12 Height 5 ft 11 in Weight 215 lb 13.321 oz BMI 30.1 BP 128/64 Blood Pressure Location Rt brachial Position Sitting Pulse 75 Pulse Source Pulse Oximeter Temp 96.5 F L Temp Source Skin Pulse Oximetry (%) 100 Oxygen Delivery Method Room Air Intake Visit Reasons: RA Intake Note: Pt last seen 04/08/23, presents today for follow up and test results. He was started on plaquenil every other day and prednisone 15mg daily. Reports he takes plaquenil daily because that is what his previous patient intake representative did. He states dialysis doctor advised to get off prednisone and do a cortisone injection instead in the shoulders. Complaining of bl shoulder pain Manager Reimbursement Required: No Accompanied by: Self / Same As Patient Allergies No Known Allergies [No Known Allergies*] Allergy (Verified 05/13/23 08:17) Medication List - Last Reconciled 05/13/23 by Colton Reyna MD albuterol sulfate 90 mcg/actuation (ProAir HFA) 2 puffs inhalation Q6H PRN amlodipine 5 mg PO DAILY Anoro Ellipta 62.5-25 mcg/actuation (umeclidinium-vilanterol) 1 ea inhalation DAILY NS [APAP 5-15 cm H20 humidified AIR As directed] apixaban 2.5 mg PO BID bisacodyl (Dulcolax (bisacodyl)) 10 mg (2 x 5 mg) PO ONCE 1 day blood sugar diagnostic (FreeStyle Lite Strips) As directed check the BS BID blood-glucose meter (FreeStyle Lite Meter kit) As directed compr.stocking,thigh,reg,x-lrg As directed 20-30 mm HG kylah.stocking,knee,reg,xlrg As directedcompression stockings bilateral adjustable lower extremity garments ferrous sulfate 325 mg PO DAILY hydroxychloroquine 200 mg PO Q OTHER DAY [Juxta Lite Compression wraps - Adjustable -for chronic ulcers with open wounds bilat lower extremities As directed] ketoconazole 2% appl topical DAILY lancets (FreeStyle Lancets) As directed check BS BID metoprolol tartrate 12.5 mg (1/2 x 25 mg) PO BID 90 days omeprazole 40 mg PO BID polyethylene glycol 3350 (Miralax) 17 grams PO DAILY PRN pravastatin 20 mg PO DAILY prednisone 15 mg (3 x 5 mg) PO DAILY sevelamer carbonate mg PO tramadol 50 mg PO BEDTIME HPI HPI Comments History of Present Illness Details 68-year-old male with SLE returns for follow-up. On prednisone 15 mg daily and hydroxychloroquine daily. He states that he was taking hydroxychloroquine every day as this was the way it was prescribed by Dr. Birch. States that the pain and swelling of his fingers is improving. Now he is able to put his rings back on. The pain and stiffness of his shoulders however has not improved. INITIAL HISTORY: This is a 68-year-old male with a past medical history of SLE, gout who presents for follow-up. He was last seen by Dr. Birch 2 years ago. Patient was admitted to the hospital in July of 2022 and discharged in November of 2022. Patient had a GI bleed, he had other complications including acute on chronic CKD which turned into end-stage CKD, now he is on hemodialysis. He had a pacemaker placed. He also had multiple infections. He has lost 80 lb since then. Over the last 6-7 months patient has been having bilateral shoulder pain and stiffness. Gets intermittent ankle swelling. He has not been on the hydroxychloroquine for more than a year as he was not able to get any refills. He is not taking allopurinol but has not had any gout flares recently. He denies any skin rashes. [facility] Medical History (Updated 05/13/23 @ 08:52 by Colton Reyna MD) HTN (hypertension) Dermatitis associated with moisture from stool incontinence Clostridioides difficile diarrhea Urinary retention with incomplete bladder emptying Pacemaker Pancytopenia CKD (chronic kidney disease) stage 4, GFR 15-29 ml/min Incomplete emptying of bladder due to benign prostatic hyperplasia Acute kidney injury superimposed on chronic kidney disease Fistula Paroxysmal A-fib Diastolic heart failure Pulmonary hypertension Depression, major Afib Bradycardia Scrotal edema Anasarca Cirrhosis Lymphedema Type 2 diabetes mellitus with hyperglycemia Osteoarthritis Peripheral neuropathy Obstructive sleep apnea BPH (benign prostatic hyperplasia) Venous stasis dermatitis Obesity (BMI 30-39.9) Hypercholesterolemia Peripheral vascular disease Pulmonary hypertension Essential thrombocytopenia Anemia COPD (chronic obstructive pulmonary disease) Diabetic retinopathy Chronic kidney disease Lumbar degenerative disc disease High cholesterol Edema Gout Surgical History Hx of cardiac pacemaker History of bowel diversion surgery History of gastric surgery H/O prior ablation treatment History of carpal tunnel release History of bilateral cataract extraction History of tonsillectomy Family History Father Prostate cancer CVD (cardiovascular disease) Mother Hemochromatosis Brother Motor vehicle accident Sister CAD (coronary artery disease) Maternal Grandfather Myocardial infarction Social History Household Members: Spouse Housing: House Do you presently have visiting nurse or other home services: Yes Alcohol intake: never Patient Tobacco Use Status: Former Tobacco user Tobacco use type: Cigarette e-Cigarette/Vaping Use: Former Use Second Hand Smoke Exposure: Yes service: No Current occupational status: retired Cognitive needs: Yes Hearing needs: Yes Vision needs: Yes Review of Systems Musc Reports arthralgias and Reports stiffness Skin/Breast Reports dry skin and Denies rash Physical Exam Vital Signs: Last Vital Signs Temp 96.5 F L 05/13/23 08:12 Pulse 75 05/13/23 08:12 BP 128/64 05/13/23 08:12 Pulse Ox 100 05/13/23 08:12 Oxygen Delivery Method Room Air 05/13/23 08:12 BMI result Body Mass Index 30.1 Const General: cooperative and poor hygiene Nutritional Appearance: overweight HEENT Other: Bilateral temporal wasting Resp Effort & Inspection: normal respiratory effort and able to speak in complete sentences Skin Other: Dry skin on both lower extremities Extrem Other: Osteoarthritic changes of both hands Mild flexure contracture of multiple PIPs No wrist swelling tenderness or pain with full range of motion No elbow swelling or tenderness or pain with range of motion Bilateral significantly limited abduction of both shoulders he worse on the right Painful flexion of both shoulders Bilateral knee osteoarthritis, crepitus with knee flexion Normal nailfold capillaroscopy Office Procedures Joint Injection/Drain Joint Injection/Drain Primary Site: right shoulder Secondary Site: left shoulder Prep: site was prepped using sterile technique and ethochloride spray was applied Injected: 40 mg of, Kenalog and other (2 mL of 1% lidocaine) Procedure: The patient tolerated the procedure well Coding Details: With the patient's consent the right shoulder was prepped with ChloraPrep and alcohol. Under a topical ethyl chloride spray the right subacromial space was injected with 40 mg of triamcinolone and 2 cc of 1% lidocaine. The patient tolerated the procedure without any acute adverse effects. With the patient's consent the left shoulder was prepped with ChloraPrep and alcohol. Under a topical ethyl chloride spray the left subacromial space was injected with 40 mg of triamcinolone and 1 cc of 1% lidocaine. The patient tolerated the procedure without any acute adverse effects. 89236 - Large joint (X 2) Procedure code (CPT) selection complete Assessment & Plan Assessment & Plan (1) SLE (systemic lupus erythematosus related syndrome): Code(s): M32.9 - Systemic lupus erythematosus, unspecified Plan: This is a 68-year-old male previously diagnosed with SLE based on positive MARISEL 1-320 homogeneous, low titer positive [employer] DIRECTOR antibody, leukopenia, thrombocytopenia, low complements and positive dsDNA. He was on hydroxychloroquine 200 mg every other day. Could not tolerate higher doses due to GI upset. Who presents with bilateral shoulder pain and stiffness. Labs show significantly elevated inflammatory markers, x-rays show significant bilateral shoulder osteoarthritis. Patient is on hydroxychloroquine 200 mg daily and prednisone 15 mg daily. His peripheral synovitis seems to have resolved. however continues to have significantly limited shoulder range of motion. His SLE activity markers are normal, he has normal dsDNA and normal C3-C4. DDx PMR versus elderly onset RA versus osteoarthritis With patient's consent both shoulders were injected with Kenalog today. Advised patient to take the hydroxychloroquine 200 mg every other day as prescribed given likely chronic therapy and his end-stage kidney disease Will taper prednisone to off. DMARDs such as low-dose sulfasalazine can be considered in the future Follow-up in 2 months (2) Gout: Code(s): M10.9 - Gout, unspecified Qualifiers: Gout site: unspecified site Gout etiology: idiopathic Chronicity: chronic Presence of tophus: without tophus Qualified Code(s): M1A.00X0 - Idiopathic chronic gout, unspecified site, without tophus (tophi) Plan: Has not been on allopurinol for a long period of time, has not had any gout flares recently. He is on dialysis currently, his uric acid level is 6.0 (3) Long-term use of hydroxychloroquine: Code(s): Z79.899 - Other care home (current) drug therapy Plan: Discussed risk of retinopathy associated with hydroxychloroquine. Will refer patient to Ophthalmology Plan I spent 30 minutes reviewing patient's chart, evaluating patient, , counseling patient and documenting in the chart Orders: Orders AMB Joint Injection/Aspiration Today M19.011 - Primary osteoarthritis, right shoulder, M19.012 - Primary osteoarthritis, left shoulder Referrals Ophthalmology Referral Z79.899 - Other machinist linotype (current) drug therapy Coding Level of Care Code Est Pt Level 4 (82903) Diagnoses SLE (systemic lupus erythematosus related syndrome) M32.9 Idiopathic chronic gout without tophus, unspecified site [id number].[id number] Gout site: unspecified site Gout etiology: idiopathic Chronicity: chronic Presence of tophus: without tophus Long-term use of hydroxychloroquine Z79.899 CPT Codes Coding - 18674 Large joint: 00120 - Large joint ([id number])
== END 2023-05-13 08:52 | disposition home or self-care (01) ==
PROVIDERS: PCP Internal Medicine; Visit Provider Student in an Organized Health Care Education/Training Program
DX: M32.9 Systemic lupus erythematosus, unspecified (principal); M1A.00X0 Idiopathic chronic gout, unspecified site, without tophus (tophi); Z79.899 Other long term (current) drug therapy
CPT/HCPCS: 20610; 99214

== ENCOUNTER → 2023-05-13 08:10 | Outpatient (BNVA) | payer OTHER, SELFPAY | PROVIDERS: PCP Internal Medicine; Visit Provider Student in an Organized Health Care Education/Training Program | DX: M32.9 Systemic lupus erythematosus, unspecified (principal); M1A.00X0 Idiopathic chronic gout, unspecified site, without tophus (tophi); Z79.899 Other long term (current) drug therapy | CPT/HCPCS: 20610; 99212 ==

== ENCOUNTER 2023-06-09 13:46 | Emergency (ER) | payer OTHER, SELFPAY ==
--- NOTE | 2023-06-09 14:13 | ED_ITS ---
HPI - General Adult General Chief complaint: Skin/Abscess/Foreign Body Stated complaint: Nose Infection Time Seen by Provider: 06/09/23 22:05 Source: patient and family () Mode of arrival: ambulatory History of Present Illness HPI narrative: 68-year-old male who presents with 1 week of having increasing swelling/redness to upper lip that he states started off looking like a pimple, patient is baseline ESRD on dialysis and had dialysis today. He denies any other complaints, no airway or swallowing difficulties and no fevers or chills. He did go to the urgent care facility where the provider at that location did open lip up a little bit but wanted patient to be seen in the emergency room. Patient denies any use of antibiotics. Related Data Home Medications Medication Instructions Recorded Confirmed albuterol sulfate 90 mcg/actuation 2 puff inhalation Q6H PRN 07/05/20 04/27/23 aerosol inhaler (ProAir HFA) Shortness Of Breath Or Wheezing polyethylene glycol 3350 17 gram 17 g PO DAILY PRN Constipation 09/24/22 04/27/23 oral powder packet (Miralax) pravastatin 20 mg tablet 20 mg PO DAILY 11/22/22 04/27/23 ketoconazole 2 % topical cream appl topical DAILY 02/27/23 04/27/23 sevelamer carbonate 800 mg tablet mg PO 04/08/23 04/27/23 Previous Rx's Medication Instructions Recorded kylah.stocking,knee,reg,xlrg #12 ea 11/01/20 compr.stocking,thigh,reg,x-lrg #12 ea 05/31/21 Juxta Lite Compression wraps - #2 ea 07/02/21 Adjustable -for chronic ulcers with open wounds bilat lower extremities APAP 5-15 cm H20 humidified AIR #1 ea 09/06/21 Anoro Ellipta 62.5 mcg-25 1 ea inhalation DAILY #60 ea 07/07/22 mcg/actuation powder for inhalation (umeclidinium-vilanterol) ferrous sulfate 325 mg (65 mg 325 mg PO DAILY #30 tabs 09/30/22 iron) tablet blood sugar diagnostic (FreeStyle #200 ea 10/02/22 Lite Strips) blood-glucose meter (FreeStyle #1 ea 10/02/22 Lite Meter kit) lancets 28 gauge (FreeStyle #200 ea 10/02/22 Lancets) bisacodyl 5 mg tablet,delayed 10 mg (2 x 5 mg) PO ONCE 1 day #2 01/12/23 release (Dulcolax (bisacodyl)) tabs omeprazole 40 mg capsule,delayed 40 mg PO BID #60 caps 02/11/23 release apixaban 2.5 mg tablet 2.5 mg PO BID #60 tabs 04/01/23 amlodipine 5 mg tablet 5 mg PO DAILY #90 tabs 04/06/23 metoprolol tartrate 25 mg tablet 12.5 mg (1/2 x 25 mg) PO BID 90 04/06/23 days #90 tabs tramadol 50 mg tablet 50 mg PO BEDTIME #30 tabs 04/06/23 hydroxychloroquine 200 mg tablet 200 mg PO Q OTHER DAY #30 tabs 04/08/23 prednisone 5 mg tablet 15 mg (3 x 5 mg) PO DAILY #90 tabs 04/08/23 cephalexin 500 mg capsule 500 mg PO BID 7 days #14 caps 06/09/23 doxycycline monohydrate 100 mg 100 mg PO BID 7 days #14 caps 06/09/23 capsule Allergies Allergy/AdvReac Type Severity Reaction Status Date / Time No Known Allergies Allergy Verified 06/09/23 14:19 [No Known Allergies*] Review of Systems 2 Review of Systems: Pertinent positives and negatives as stated in HPI [facility] Past Medical History Source: nursing notes reviewed Medical History (Updated 06/09/23 @ 22:34 by Tori Rick MD) HTN (hypertension) Dermatitis associated with moisture from stool incontinence Clostridioides difficile diarrhea Urinary retention with incomplete bladder emptying Pacemaker Pancytopenia CKD (chronic kidney disease) stage 4, GFR 15-29 ml/min Incomplete emptying of bladder due to benign prostatic hyperplasia Acute kidney injury superimposed on chronic kidney disease Fistula Paroxysmal A-fib Diastolic heart failure Pulmonary hypertension Depression, major Afib Bradycardia Scrotal edema Anasarca Cirrhosis Lymphedema Type 2 diabetes mellitus with hyperglycemia Osteoarthritis Peripheral neuropathy Obstructive sleep apnea BPH (benign prostatic hyperplasia) Venous stasis dermatitis Obesity (BMI 30-39.9) Hypercholesterolemia Peripheral vascular disease Pulmonary hypertension Essential thrombocytopenia Anemia COPD (chronic obstructive pulmonary disease) Diabetic retinopathy Chronic kidney disease Lumbar degenerative disc disease High cholesterol Edema Gout Surgical History Hx of cardiac pacemaker History of bowel diversion surgery History of gastric surgery H/O prior ablation treatment History of carpal tunnel release History of bilateral cataract extraction History of tonsillectomy Family History Family History Father Prostate cancer CVD (cardiovascular disease) Mother Hemochromatosis Brother Motor vehicle accident Sister CAD (coronary artery disease) Maternal Grandfather Myocardial infarction Social History Social History Household Members: Spouse Housing: House Do you presently have visiting nurse or other home services: Yes Alcohol intake: never Patient Tobacco Use Status: Former Tobacco user Tobacco use type: Cigarette e-Cigarette/Vaping Use: Former Use Second Hand Smoke Exposure: Yes Advance Directives: Yes Advance Directives on File: Yes Advance Directives Date on File: 11/06/22 service: No Current occupational status: retired Cognitive needs: Yes Hearing needs: Yes Vision needs: Yes Physical Exam ED Vital Signs: Vital Signs - 24 hr 06/09/23 14:15 Temperature 98.0 F Pulse Rate 80 Respiratory Rate 18 Blood Pressure 131/49 L Pulse Oximetry 99 Oxygen Delivery Method Room Air BMI result Body Mass Index 29.6 VITAL SIGNS: Reviewed. GENERAL: Well developed, well nourished, in no acute distress. HEAD: Normocephalic/atraumatic FACE/LIP: Please see the attached pictures EYES: PERRLA, EOMI EARS: Ext canals without abnormality LUNGS: Normal breath sounds. No adventitious sounds or accessory muscle use. CARDIOVASCULAR: Regular rate and rhythm without noted murmurs ABDOMEN: Soft, non-tender, non-distended with bowel sounds. MUSCULOSKELETAL: No tenderness, deformities, or effusions noted on gross inspection. EXTREMITIES: No cyanosis, clubbing or edema. SKIN: Inspection of the skin reveals no rashes NEUROLOGIC: Alert and oriented x 4. Strength and sensation to light touch were grossly intact x 4. Course Course Course Narrative: RME:?68 yo male, hx CKD, liver cirrhosis, CHF s/p pacemaker here with my nose is infected . Noticed a pimple to his right upper lip 1 wk ago. Reports picking at it over the last week. The area has been swelling and draining purulent discharge. denies fever, chills. + adentulous. swelling between upper lip and nose, L>R, crusted lesions, draining purulent discharge. no LAD. Labs ordered +/- imaging per primary provider Full HPI, ROS and PE to be performed by the primary ED provider. Medications Administered Discontinued Medications Generic Name Dose Route Start Last Admin Trade Name Krystina PRN Reason Stop Dose Admin Acetaminophen 975 mg 06/09/23 22:30 06/09/23 22:36 Acetaminophen 325 Mg Tablet PO 06/09/23 22:31 975 mg ONCE ONE Administration Cephalexin HCl 500 mg 06/09/23 22:29 06/09/23 22:36 Cephalexin 500 Mg Capsule PO 06/09/23 22:30 500 mg ONCE ONE Administration Doxycycline Monohydrate 100 mg 06/09/23 22:29 06/09/23 22:36 Doxycycline Monohydrate 100 Mg Capsule PO 06/09/23 22:30 100 mg ONCE ONE Administration Medical Decision Making Medical Decision Making [facility] Narrative: 68-year-old male with history and clinical presentation consistent with cellulitis and likely secondary infection when patient attempted to address the pimple/ingrown hair. There are areas that are actively draining, he is not having systemic symptoms, I do feel that he is clinically safe to go home with recommendations for warm compresses (which he has not used) as well as a 7 day course antibiotics. He was given strict return precautions and received initial antibiotics here in the emergency room. I did review all investigations and there is no leukocytosis there is a chronic macrocytic anemia and no thrombocytopenia. Chemistry indices demonstrates his known ESRD and otherwise there are no significant electrolyte derangements. My interpretation is patient has an infected upper lip that would not benefit from further incision and drainage as it appears to be somewhat draining at this time and will likely respond to antibiotics. He understands the plan and is discharged. Differential Diagnosis Differential Diagnoses: The differential diagnosis associated with the presentation includes Please see the discussion above Admission/Observation Consideration of admission/observation: Escalation of care including admission/observation considered Please see the discussion above Lab Data [facility] Lab Attestation statement: I reviewed the patient's lab results. Please see the discussion above 06/09/23 14:30 06/09/23 14:30 Labs: Lab Results 06/09/23 Range/Units 14:30 WBC 7.6 (4.8-10.8) X10*3/uL RBC 3.32 L (4.60-5.80) X10*6/uL Hgb 11.5 L (14.0-18.0) g/dl Hct 33.8 L (42.0-52.0) % MCV 101.8 H (80.0-98.0) fL MCH 34.6 H (27.0-33.0) pg MCHC 34.0 (31.0-36.0) g/dl RDW 14.4 (11.0-16.0) % Plt Count 163 (160-400) X10*3/uL MPV 9.1 L (9.4-12.4) fL Immature Gran % (Auto) 0.5 H (0.0-0.4) % Neut % (Auto) 78.9 H (45-73) % Lymph % (Auto) 11.8 L (20-40) % Mellette % (Auto) 8.3 (2-11) % Eos % (Auto) 0.0 (0-4) % Baso % (Auto) 0.5 (0-2) % Lymph # (Auto) 0.9 L (1.2-4.9) X10*3/uL Mellette # (Auto) 0.6 (0.1-1.2) X10*3/uL Eos # (Auto) 0.0 (0.0-0.4) X10*3/uL Baso # (Auto) 0.0 (0.0-0.2) X10*3/uL Abs Immat Gran (auto) 0.04 H (0.00-0.03) X10*3/uL Absolute Neuts (auto) 6.0 (2.0-8.3) x10*3/uL Absolute Nucleated RBC 0.000 (0.0-0.012) X10*3/uL Nucleated RBC % (auto) 0.0 (0.0-0.2) /100WBC Sodium 138 (135-145) mmol/L Potassium 3.9 (3.3-5.1) mmol/L Chloride 95 L (96-108) mmol/L Carbon Dioxide 28 (22-29) mmol/L Anion Gap 19 (12-20) BUN 27 H (9-16) mg/dL Creatinine 4.39 H* (0.5-1.4) mg/dL Estim Creat Clear Calc 18.5 Estimated GFR 13 Random Glucose 104 (60-115) mg/dL Lactic Acid 1.8 (0.5-2.0) mmol/L Calcium 9.5 (8.4-10.2) mg/dL Magnesium 2.0 (1.6-2.6) mg/dL External Record Review External record reviewed: Outpatient record and Prior outpatient labs Chronic Conditions Patient?s care impacted by: Other ESRD on dialysis Critical Care Time Critical Care Time Critical Care Time: Yes Total Critical Care Time: 30 Attestation: I personally attest to this time spent taking care of the patient. Discharge Plan Discharge Clinical Impression: Infection of lip, Cellulitis, ESRD on dialysis Patient Disposition: Home, Self-Care Instructions: Cellulitis (ED), Warm Compress or Soak (ED) Additional Instructions: 1. Resume all home medications as prescribed. 2. Complete the entire course of antibiotics as prescribed. 3. Give 24 hours for the antibiotics to take cold, however if you have increasing redness creeping up to the lower portion of your left eye or developed any fevers or chills please return to the emergency room immediately. 4. Please use warm-hot compresses 3 times a day for proximally 5 minutes. 5. Please call your primary care doctor 1st thing in the morning. 6. You have been provided with a referral to follow-up with Ear, Nose, Throat, the referral as below any should call the office in the morning. Return to the ER as mentioned above for any acute worsening of your symptoms. Prescriptions: New doxycycline monohydrate 100 mg capsule 100 mg PO BID 7 Days Qty: 14 0RF cephalexin 500 mg capsule 500 mg PO BID 7 Days Qty: 14 0RF No Action (DME) kylah.stocking,knee,reg,xlrg Misc See Rx Instructions .ROUTE .MEDSUPPLY Qty: 12 0RF Rx Instructions: As directedcompression stockings bilateral adjustable lower extremity garments (DME) compr.stocking,thigh,reg,x-lrg Misc See Rx Instructions .Route Qty: 12 0RF Rx Instructions: As directed 20-30 mm HG (DME) Juxta Lite Compression wraps - Adjustable -for chronic ulcers with open wounds bilat lower extremities See Rx Instructions .Route .MEDSUPPLY Qty: 2 0RF Rx Instructions: As directed Anoro Ellipta 62.5-25 mcg/actuation blister with device 1 ea inhalation DAILY Qty: 60 6RF (DME) lancets [FreeStyle Lancets] 28 gauge misc See Rx Instructions .ROUTE .MEDSUPPLY Qty: 200 3RF Rx Instructions: As directed check BS BID (DME) blood-glucose meter [FreeStyle Lite Meter] Kit See Rx Instructions .ROUTE .MEDSUPPLY Qty: 1 0RF Rx Instructions: As directed (DME) FreeStyle Lite Strips Strip See Rx Instructions .ROUTE .MEDSUPPLY Qty: 200 3RF Rx Instructions: As directed check the BS BID omeprazole 40 mg capsule,delayed release(DR/EC) 40 mg PO BID Qty: 60 0RF Eliquis 2.5 mg tablet 2.5 mg PO BID Qty: 60 5RF Hold Instructions: Resume on 11/27/22. polyethylene glycol 3350 [Miralax] 17 gram powder in packet 17 g PO DAILY PRN (Reason: Constipation) ferrous sulfate 325 mg (65 mg iron) tablet 325 mg PO DAILY Qty: 30 0RF pravastatin 20 mg tablet 20 mg PO DAILY (DME) APAP 5-15 cm H20 humidified AIR See Rx Instructions .Route .MEDSUPPLY Qty: 1 0RF Rx Instructions: As directed amlodipine 5 mg tablet 5 mg PO DAILY Qty: 90 1RF metoprolol tartrate 25 mg tablet 12.5 mg PO BID 90 Days Qty: 90 1RF tramadol 50 mg tablet 50 mg PO BEDTIME Qty: 30 0RF albuterol sulfate [ProAir HFA] 90 mcg/actuation HFA aerosol inhaler 2 puff inhalation Q6H PRN (Reason: Shortness Of Breath Or Wheezing) ketoconazole 2 % cream topical DAILY bisacodyl [Dulcolax (bisacodyl)] 5 mg tablet,delayed release (DR/EC) 10 mg PO ONCE 1 Days Qty: 2 0RF Rx Instructions: take 2 tabs at noon the day before your colonoscopy sevelamer carbonate 800 mg tablet PO hydroxychloroquine 200 mg tablet 200 mg PO Q OTHER DAY Qty: 30 1RF prednisone 5 mg tablet 15 mg PO DAILY Qty: 90 1RF Referrals: Dagoberto rPabhakar [Physician] - Po,Steve Dawn MD [Primary Care Provider] - Interventions: ED Discharge Assessment Last Done: 06/09/23 22:41
[2023-06-09 14:15] VITALS: BP 131/49; PULSE 80; RESP 18; TEMP 36.7; O2SAT 99; BMI 29.6
[2023-06-09 14:41] LABS: MANUAL DIFF FLAG NO
[2023-06-09 14:44] LABS: Basophils Percent Auto 0.5 % (0-2); Hematocrit 33.8 % (42.0-52.0); Hemoglobin 11.5 g/dl (14.0-18.0); Imm Gran Abs Auto 0.04 X10*3/uL (0.00-0.03); Imm Gran Pct Auto 0.5 % (0.0-0.4); Lymphocytes Absolute Auto 0.9 X10*3/uL (1.2-4.9); Lymphocytes Percent Auto 11.8 % (20-40); Mean Corpuscular Hemoglobin 34.6 pg (27.0-33.0); Mean Corpuscular Volume 101.8 fL (80.0-98.0); Mean Platelet Volume 9.1 fL (9.4-12.4); Monocytes Absolute Auto 0.6 X10*3/uL (0.1-1.2); Monocytes Percent Auto 8.3 % (2-11); Neutrophils Percent Auto 78.9 % (45-73); Platelet Count 163 X10*3/uL (160-400); Red Blood Count 3.32 X10*6/uL (4.60-5.80); Red Cell Distribution Width 14.4 % (11.0-16.0); White Blood Count 7.6 X10*3/uL (4.8-10.8)
[2023-06-09 14:55] LABS: Lactic Acid 1.8 mmol/L (0.5-2.0)
[2023-06-09 15:29] LABS: Anion Gap 19 (12-20); Blood Urea Nitrogen 27 mg/dL (9-16); Calcium 9.5 mg/dL (8.4-10.2); Carbon Dioxide 28 mmol/L (22-29); Chloride 95 mmol/L (96-108); Creatinine Clr Calc Pharmacy 18.5; Estimated Glomerular Filt Rate 13; Glucose Random 104 mg/dL (60-115); Potassium 3.9 mmol/L (3.3-5.1); Sodium 138 mmol/L (135-145)
[2023-06-09] MEDS: Acetaminophen 325 MG TABLET 975 MG PO (22:36)
[2023-06-09] MEDS: cephALEXin 500 MG CAPSULE PO (22:36)
[2023-06-09] MEDS: Doxycycline Monohydrate 100 MG CAPSULE PO (22:36)
[2023-06-09 22:46] VITALS: BP 159/81; PULSE 103; RESP 18; TEMP 36.8; O2SAT 97
== END 2023-06-09 22:48 | disposition home or self-care (01) ==
PROVIDERS: Physician Assistant Medical; Emergency Provider Student in an Organized Health Care Education/Training Program; PCP Internal Medicine
DX: J34.0 Abscess, furuncle and carbuncle of nose (principal); I12.0 Hypertensive chronic kidney disease with stage 5 chronic kidney disease or end stage renal disease; N18.6 End stage renal disease; Z87.891 Personal history of nicotine dependence; Z79.899 Other long term (current) drug therapy
CPT/HCPCS: 36415; 80048; 83605; 83735; 85025; 87040; 99283; 99284

== ENCOUNTER 2023-06-17 10:47 | Outpatient (REF) | payer OTHER, SELFPAY | END 2023-06-17 10:48 | disposition home or self-care (01) | LOC: HO.LNP 10:47 | PROVIDERS: Visit Provider Otolaryngology | DX: S00.501A Unspecified superficial injury of lip, initial encounter (principal); X58.XXXA Exposure to other specified factors, initial encounter | CPT/HCPCS: 87070; 87077; 87186; 87205 ==

== ENCOUNTER 2023-07-06 09:13 | Outpatient (AMB) | payer OTHER, SELFPAY ==
--- NOTE | 2023-07-06 09:35 | A.OFFVIS_ITS ---
Intake Vital Signs 07/06/23 09:36 Height 5 ft 11 in Weight 233 lb 7.512 oz BMI 32.6 BP 110/70 Blood Pressure Location Lt brachial Position Sitting Pulse 64 Pulse Source Palpation Temp 97.3 F Temp Source Skin Intake Visit Reasons: SLE Intake Note: Patient last seen 05/13/23 presents today for follow up. He was referred to [facility] on 05/18/23. Reports shoulder pain, limited ROM. 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 Accompanied by: Self / Same As Patient Allergies No Known Allergies [No Known Allergies*] Allergy (Verified 06/09/23 14:19) Medication List - Last Reconciled 07/06/23 by Colton Reyna MD albuterol sulfate 90 mcg/actuation (ProAir HFA) 2 puffs inhalation Q6H PRN amlodipine 5 mg PO DAILY Anoro Ellipta 62.5-25 mcg/actuation (umeclidinium-vilanterol) 1 ea inhalation DAILY NS [APAP 5-15 cm H20 humidified AIR As directed] apixaban 2.5 mg PO BID bisacodyl (Dulcolax (bisacodyl)) 10 mg (2 x 5 mg) PO ONCE 1 day blood sugar diagnostic (FreeStyle Lite Strips) As directed check the BS BID blood-glucose meter (FreeStyle Lite Meter kit) As directed cephalexin 500 mg PO BID 7 days compr.stocking,thigh,reg,x-lrg As directed 20-30 mm HG kylah.stocking,knee,reg,xlrg As directedcompression stockings bilateral adjustable lower extremity garments doxycycline monohydrate 100 mg PO BID 7 days ferrous sulfate 325 mg PO DAILY hydroxychloroquine 200 mg PO Q OTHER DAY [Juxta Lite Compression wraps - Adjustable -for chronic ulcers with open wounds bilat lower extremities As directed] ketoconazole 2% appl topical DAILY lancets (FreeStyle Lancets) As directed check BS BID metoprolol tartrate 12.5 mg (1/2 x 25 mg) PO BID 90 days omeprazole 40 mg PO BID polyethylene glycol 3350 (Miralax) 17 grams PO DAILY PRN pravastatin 20 mg PO DAILY prednisone 15 mg (3 x 5 mg) PO DAILY sevelamer carbonate mg PO tramadol 50 mg PO BEDTIME HPI HPI Comments History of Present Illness Details 68-year-old [facility] with [facility] On hydroxychloroquine every other day. States that bilateral shoulder injections done last visit did provide some relief. He continues to have significant bilateral shoulder stiffness and limited range of motion. Denies any other significant joint pain. INITIAL HISTORY: This is a 68-year-old male with a past medical history of SLE, gout who presents for follow-up. He was last seen by Dr. Birch 2 years ago. Patient was admitted to the hospital in July of 2022 and discharged in November of 2022. Patient had a GI bleed, he had other complications including acute on chronic CKD which turned into end-stage CKD, now he is on hemodialysis. He had a pacemaker placed. He also had multiple infections. He has lost 80 lb since then. Over the last 6-7 months patient has been having bilateral shoulder pain and stiffness. Gets intermittent ankle swelling. He has not been on the hydroxychloroquine for more than a year as he was not able to get any refills. He is not taking allopurinol but has not had any gout flares recently. He denies any skin rashes. [facility] Medical History HTN (hypertension) Dermatitis associated with moisture from stool incontinence Clostridioides difficile diarrhea Urinary retention with incomplete bladder emptying Pacemaker Pancytopenia CKD (chronic kidney disease) stage 4, GFR 15-29 ml/min Incomplete emptying of bladder due to benign prostatic hyperplasia Acute kidney injury superimposed on chronic kidney disease Fistula Paroxysmal A-fib Diastolic heart failure Pulmonary hypertension Depression, major Afib Bradycardia Scrotal edema Anasarca Cirrhosis Lymphedema Type 2 diabetes mellitus with hyperglycemia Osteoarthritis Peripheral neuropathy Obstructive sleep apnea BPH (benign prostatic hyperplasia) Venous stasis dermatitis Obesity (BMI 30-39.9) Hypercholesterolemia Peripheral vascular disease Pulmonary hypertension Essential thrombocytopenia Anemia COPD (chronic obstructive pulmonary disease) Diabetic retinopathy Chronic kidney disease Lumbar degenerative disc disease High cholesterol Edema Gout Surgical History Hx of cardiac pacemaker History of bowel diversion surgery History of gastric surgery H/O prior ablation treatment History of carpal tunnel release History of bilateral cataract extraction History of tonsillectomy Family History Father Prostate cancer CVD (cardiovascular disease) Mother Hemochromatosis Brother Motor vehicle accident Sister CAD (coronary artery disease) Maternal Grandfather Myocardial infarction Social History Household Members: Spouse Housing: House Do you presently have visiting nurse or other home services: Yes Alcohol intake: never Patient Tobacco Use Status: Former Tobacco user Tobacco use type: Cigarette e-Cigarette/Vaping Use: Former Use Second Hand Smoke Exposure: Yes Advance Directives Date on File: 11/06/22 service: No Current occupational status: retired Cognitive needs: Yes Hearing needs: Yes Vision needs: Yes Review of Systems Musc Reports arthralgias and Reports stiffness Physical Exam Vital Signs: Last Vital Signs Temp 97.3 F 07/06/23 09:36 Pulse 64 07/06/23 09:36 BP 110/70 07/06/23 09:36 BMI result Body Mass Index 32.6 Const General: cooperative and poor hygiene Nutritional Appearance: overweight HEENT Other: Bilateral temporal wasting Resp Effort & Inspection: normal respiratory effort and able to speak in complete sentences Skin Other: Dry skin on both lower extremities Extrem Other: Osteoarthritic changes of both hands Mild flexure contracture of multiple PIPs No wrist swelling tenderness or pain with full range of motion No elbow swelling or tenderness or pain with range of motion Bilateral significantly limited abduction of both shoulders worse on the left Significant shoulder crepitus bilaterally Painful flexion of both shoulders Bilateral knee osteoarthritis, crepitus with knee flexion Normal nailfold capillaroscopy Assessment & Plan Assessment & Plan (1) SLE (systemic lupus erythematosus related syndrome): Code(s): M32.9 - Systemic lupus erythematosus, unspecified Plan: This is a 68-year-old male previously diagnosed with SLE based on positive MARISEL 1-320 homogeneous, 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 Is on hydroxychloroquine 200 mg every other day. Patient is on dialysis. I do not see any features of active SLE today. However he has significant bilateral shoulder stiffness, this did not respond to steroids. He mentioned some symptomatic improvement with bilateral shoulder steroid injection. Will refer patient to orthopedics. Will also prescribe a course of PT for bilateral shoulder osteoarthritis. Can consider repeat injection in 1-2 months. Follow-up in 2 months (2) Gout: Code(s): M10.9 - Gout, unspecified Qualifiers: Gout site: unspecified site Gout etiology: idiopathic Chronicity: chronic Presence of tophus: without tophus Qualified Code(s): M1A.00X0 - Idiopathic chronic gout, unspecified site, without tophus (tophi) Plan: Has not been on allopurinol for a long period of time, has not had any gout flares recently. He is on dialysis currently, his most recent uric acid level is 6.0 (3) Long-term use of hydroxychloroquine: Code(s): Z79.899 - Other retirement (current) drug therapy Plan: Discussed risk of retinopathy associated with hydroxychloroquine. Advised patie nt to make an appointment with publisher assistant Plan I spent 25 minutes reviewing patient's chart, evaluating patient, , counseling patient and documenting in the chart Orders: Orders PT Evaluation and Treatment Today M19.011 - Primary osteoarthritis, right shoulder, M19.012 - Primary osteoarthritis, left shoulder Referrals Orthopedics Referral M19.011 - Primary osteoarthritis, right shoulder, M19.012 - Primary osteoarthritis, left shoulder Coding Level of Care Code Est Pt Level 4 (18900) Diagnoses SLE (systemic lupus erythematosus related syndrome) M32.9 Idiopathic chronic gout without tophus, unspecified site [id number].[id number] Gout site: unspecified site Gout etiology: idiopathic Chronicity: chronic Presence of tophus: without tophus Long-term use of hydroxychloroquine Z79.899
[2023-07-06 09:36] VITALS: BP 110/70; PULSE 64; TEMP 36.3; BMI 32.6
== END 2023-07-06 10:05 | disposition home or self-care (01) ==
PROVIDERS: PCP Internal Medicine; Visit Provider Student in an Organized Health Care Education/Training Program
DX: M32.9 Systemic lupus erythematosus, unspecified (principal); M1A.00X0 Idiopathic chronic gout, unspecified site, without tophus (tophi); Z79.899 Other long term (current) drug therapy
CPT/HCPCS: 99214

== ENCOUNTER → 2023-07-06 09:13 | Outpatient (BNVA) | payer OTHER, MEDICARE, SELFPAY | PROVIDERS: PCP Internal Medicine; Visit Provider Student in an Organized Health Care Education/Training Program | DX: M32.9 Systemic lupus erythematosus, unspecified (principal); M1A.00X0 Idiopathic chronic gout, unspecified site, without tophus (tophi); Z79.899 Other long term (current) drug therapy | CPT/HCPCS: 99212 ==

== ENCOUNTER → 2023-07-10 23:59 | Outpatient (BNV) | payer OTHER, SELFPAY ==
--- NOTE | 2023-07-13 14:25 | A.OFFVIS_ITS ---
Intake Intake Visit Reasons: Remote Device Check- [facility] Allergies No Known Allergies [No Known Allergies*] Allergy (Verified 06/09/23 14:19) [facility] Medical History HTN (hypertension) Dermatitis associated with moisture from stool incontinence Clostridioides difficile diarrhea Urinary retention with incomplete bladder emptying Pacemaker Pancytopenia CKD (chronic kidney disease) stage 4, GFR 15-29 ml/min Incomplete emptying of bladder due to benign prostatic hyperplasia Acute kidney injury superimposed on chronic kidney disease Fistula Paroxysmal A-fib Diastolic heart failure Pulmonary hypertension Depression, major Afib Bradycardia Scrotal edema Anasarca Cirrhosis Lymphedema Type 2 diabetes mellitus with hyperglycemia Osteoarthritis Peripheral neuropathy Obstructive sleep apnea BPH (benign prostatic hyperplasia) Venous stasis dermatitis Obesity (BMI 30-39.9) Hypercholesterolemia Peripheral vascular disease Pulmonary hypertension Essential thrombocytopenia Anemia COPD (chronic obstructive pulmonary disease) Diabetic retinopathy Chronic kidney disease Lumbar degenerative disc disease High cholesterol Edema Gout Surgical History Hx of cardiac pacemaker History of bowel diversion surgery History of gastric surgery H/O prior ablation treatment History of carpal tunnel release History of bilateral cataract extraction History of tonsillectomy Family History Father Prostate cancer CVD (cardiovascular disease) Mother Hemochromatosis Brother Motor vehicle accident Sister CAD (coronary artery disease) Maternal Grandfather Myocardial infarction Social History Household Members: Spouse Housing: House Do you presently have visiting nurse or other home services: Yes Alcohol intake: never Patient Tobacco Use Status: Former Tobacco user Tobacco use type: Cigarette e-Cigarette/Vaping Use: Former Use Second Hand Smoke Exposure: Yes Advance Directives Date on File: 11/06/22 service: No Current occupational status: retired Cognitive needs: Yes Hearing needs: Yes Vision needs: Yes Office Procedures Cardiac Device Check Cardiac Device Check Details: PPM Good battery life [employer] 93%. Multiple AMS episodes due to Afib. [id number] Cardiac Device Interrogation, pacemaker Procedure code (CPT) selection complete Assessment & Plan Assessment & Plan (1) Pacemaker: Code(s): Z95.0 - Presence of cardiac pacemaker Plan: Orders: Orders AMB Cardiac Device Follow-up 07/10/23 Z95.0 - Presence of cardiac pacemaker Coding Level of Care Code Procedure Only Diagnoses Pacemaker Z95.0 CPT Codes Cardiac Device Check - Cardiac Device 12: [id number] Cardiac Device In [facility], [place], pacemaker ([id number])
== END ==
PROVIDERS: PCP Internal Medicine; Visit Provider Internal Medicine Cardiovascular Disease
DX: I48.0 Paroxysmal atrial fibrillation (principal); Z95.0 Presence of cardiac pacemaker
CPT/HCPCS: 93294

== ENCOUNTER 2023-07-13 15:16 | Outpatient (AMB) | payer OTHER, SELFPAY ==
[2023-07-13 15:19] VITALS: BP 132/70; BMI 33.6
--- NOTE | 2023-07-13 15:19 | A.OFFPC_ITS ---
Vital Signs 07/13/23 15:19 Height 5 ft 11 in Weight 241 lb BMI 33.6 BP 132/70 Pulse Source Pulse Oximeter Oxygen Delivery Method Room Air Intake Visit Reasons: A fib, ESRD Intake Note: Patient is here to follow up [employer] Required: No Allergies No Known Allergies [No Known Allergies*] Allergy (Verified 07/13/23 15:19) Tobacco use date assessed: 07/13/23 Fall risk assessment: No Falls in past year Last assessed Fall Risk: 07/13/23 Dental Screening Dental Screen Date: 07/13/23 HPI A fib, ESRD HPI Details 68-year-old obese male with multiple med ical problems hypercholesterolemia GERD recurrent major depression end-stage renal disease atrial fibrillation SLE hypertension last seen in March 2023. Patient is up-to-date with colonoscopy November 2022. Patient follows up with Rheumatology patient on hydroxychloroquine every other day shoulder pains doing good patient presently on dialysis. Patient has been referred back to Orthopedics for the shoulder pain. Noted also ER visit June 14 for infection on the lip which has been treated with doxycycline and cephalexin. With the atrial fibrillation patient follows up with Cardiology presently on anticoagulation. for the lip infection follow up with Dr. Ernandez and getting better. Dialysis [facility] renal . for the shoulder- had injection last month R shoulder Eye doctor Dr. aKthleen reminded to ff up. ZEYAD - has not been using . [facility] Medical History HTN (hypertension) Dermatitis associated with moisture from stool incontinence Clostridioides difficile diarrhea Urinary retention with incomplete bladder emptying Pacemaker Pancytopenia CKD (chronic kidney disease) stage 4, GFR 15-29 ml/min Incomplete emptying of bladder due to benign prostatic hyperplasia Acute kidney injury superimposed on chronic kidney disease Fistula Paroxysmal A-fib Diastolic heart failure Pulmonary hypertension Depression, major Afib Bradycardia Scrotal edema Anasarca Cirrhosis Lymphedema Type 2 diabetes mellitus with hyperglycemia Osteoarthritis Peripheral neuropathy Obstructive sleep apnea BPH (benign prostatic hyperplasia) Venous stasis dermatitis Obesity (BMI 30-39.9) Hypercholesterolemia Peripheral vascular disease Pulmonary hypertension Essential thrombocytopenia Anemia COPD (chronic obstructive pulmonary disease) Diabetic retinopathy Chronic kidney disease Lumbar degenerative disc disease High cholesterol Edema Gout Surgical History Hx of cardiac pacemaker History of bowel diversion surgery History of gastric surgery H/O prior ablation treatment History of carpal tunnel release History of bilateral cataract extraction History of tonsillectomy Family History Father Prostate cancer CVD (cardiovascular disease) Mother Hemochromatosis Brother Motor vehicle accident Sister CAD (coronary artery disease) Maternal Grandfather Myocardial infarction Social History Household Members: Spouse Housing: House Do you presently have visiting nurse or other home services: Yes Alcohol intake: never Patient Tobacco Use Status: Former Tobacco user Tobacco use type: Cigarette e-Cigarette/Vaping Use: Former Use Second Hand Smoke Exposure: Yes Advance Directives Date on File: 11/06/22 service: No Current occupational status: retired Cognitive needs: Yes Hearing needs: Yes Vision needs: Yes Questionnaire PHQ-9 Over the last 2 weeks, how often have you been bothered by any of the following problems? 1. Little interest or pleasure in doing things: not at all 2. Feeling down, depressed, or hopeless: not at all 3. Trouble falling or staying asleep, or sleeping too much: not at all 4. Feeling tired or having little energy: not at all 5. Poor appetite or overeating: not at all 6. Feeling bad about yourself - or that you are a failure or have let yourself or your family down: not at all 7. Trouble concentrating on things, such as reading the newspaper or watching television: not at all 8. Moving or speaking so slowly that other people could have noticed. Or the opposite - being so fidgety or restless that you have been moving around a lot more than usual: not at all 9. Thoughts that you would be better off or of hurting yourself in some way: not at all Total score: 0 Depression Screening Interpretation: Negative Depression Screening Done: Yes Source: Developed by Drs. Milton Ferrer, Shanna Fischer, Marc Hunt and colleagues, with an educational kaur from [employer]. Thrive Questionnaire Date Thrive assessed: 07/13/23 I am a: Patient What is your living situation today?: I have a steady place to live Within the past 12 months, did the food you bought not last and you didn't have the money to get more?: Never true Within the past 12 months, did you worry whether your food would run out before you got money to buy more?: Never true Do you have trouble paying for medicines?: No Do you have trouble getting transportation to medical appointments?: No Do you have trouble paying your heating and electricity bill?: No Do you have trouble taking care of your child, family member or friend?: No Do you have trouble with day-to-day activities such as bathing, preparing meals, shopping, managing finances, etc.?: No Are you currently unemployed and looking for a job?: No Are you interested in more education?: No THRIVE Score: 0 AUDIT C Alcohol Use Questionnaire (AUDIT-C) 1. How often do you have a drink containing alcohol?: Never 3. How often do you have six or more drinks on one occasion?: Never Total Score: 0 RADHA-7 AMB Questionnaire RADHA-7 Date RADHA - 7 assessed: 07/13/23 Source: Developed by Drs. Milton Ferrer, Shanna Fischer, Marc Hunt and colleagues, with an educational kaur from [employer]. Physical exam (Primary Care) Vital Signs: Oxygen Delivery Method Room Air 07/13/23 15:19 Care Plan Goal for BP management: left phltrum no redness but has the scab BMI result Body Mass Index 33.6 Tobacco/Smoking Status: Tobacco use Status Tobacco use date assessed 07/13/23 07/13/23 15:20 Patient Tobacco Use Status Former Tobacco user 07/13/23 15:20 Tobacco use type Cigarette 07/13/23 15:20 e-Cigarette/Vaping Use Former Use 07/13/23 15:20 PHQ-9: PHQ-9 Score PHQ-9: Total score 0 07/13/23 15:30 Depression Screening Interpretation: Negative Thrive Assessment: Date of Thrive Assessment Date Thrive assessed 07/13/23 07/13/23 15:20 Const General: alert; No acute distress Eyes Conjunctivae: conjunctivae normal Resp Auscultation: clear to auscultation bilaterally Cardio Rate: regular rate Rhythm: regular rhythm GI Inspection: Yes normal to inspection Extrem General: Yes normal to inspection and No edema Assessment and Plan Assessment & Plan (1) Osteoarthritis of shoulders, bilateral: Code(s): M19.011 - Primary osteoarthritis, right shoulder; M19.012 - Primary osteoarthritis, left shoulder Plan: Patient follows up with Rheumatology and also Orthopedics. Has had injections before on the shoulder with relief. (2) SLE (systemic lupus erythematosus): Code(s): M32.9 - Systemic lupus erythematosus, unspecified Plan: Patient follows up with Rheumatology and on hydroxychloroquine reminded about eye exams (3) HTN (hypertension): Comment: May 2013 perfusion negative echo EF 60-65% Code(s): I10 - Essential (primary) hypertension Qualifiers: Hypertension type: essential hypertension Qualified Code(s): I10 - Essential (primary) hypertension Plan: Continue with blood pressure medication. Decrease salt intake and exercise patient takes amlodipine 5 mg once a day metoprolol 12.5 mg twice a day (4) Afib: Code(s): I48.91 - Unspecified atrial fibrillation Plan: Continue with anticoagulation with Eliquis 2.5 mg twice a day (5) ESRD (end stage renal disease): Code(s): N18.6 - End stage renal disease Plan: Continue with dialysis (6) Anemia: Code(s): D64.9 - Anemia, unspecified Qualifiers: Anemia type: iron deficiency Iron deficiency anemia type: chronic blood loss Qualified Code(s): D50.0 - Iron deficiency anemia secondary to blood loss (chronic) Plan: Continue to monitor and stable (7) Recurrent major depression: Comment: decline referral for counselling presently Code(s): F33.9 - Major depressive disorder, recurrent, unspecified Plan: Stable.decline referral for counselling (8) GERD (gastroesophageal reflux disease): Code(s): K21.9 - Gastro-esophageal reflux disease without esophagitis Plan: Avoid the foods that causes that usually spicy foods, tomato products, juices, coffee, soda and foods that your sensitive to. After eating do not lie down, allow 3-4 hours before in lie down. And keep the head of bed above 30 degrees to avoid the acid from going up. (9) Hypercholesterolemia: Code(s): E78.00 - Pure hypercholesterolemia, unspecified Plan: Avoid fried foods, chicken skin, eggs, butter margarine, pastries and meat. Be it pork or beef they have a lot of cholesterol LDL goal of less than 130 and triglyceride of less than 150 (10) Dry skin dermatitis: Code(s): L85.3 - Xerosis cutis Plan: discussed about lotion , lotion, lotion!!! Coding Level of Care Code Est Pt Level 4 (48128) Diagnoses Osteoarthritis of shoulders, bilateral M19.011; M19.012 SLE (systemic lupus erythematosus) M32.9 Essential hypertension I10 Hypertension type: essential hypertension Afib I48.91 ESRD (end stage renal disease) N18.6 Iron deficiency anemia due to chronic blood loss D50.0 Anemia type: iron deficiency Iron deficiency anemia type: chronic blood loss Recurrent major depression F33.9 GERD (gastroesophageal reflux disease) K21.9 Hypercholesterolemia E78.00 Dry skin dermatitis L85.3
== END 2023-07-13 16:02 | disposition home or self-care (01) ==
PROVIDERS: PCP Internal Medicine; Visit Provider Internal Medicine
DX: I12.0 Hypertensive chronic kidney disease with stage 5 chronic kidney disease or end stage renal disease (principal); M32.9 Systemic lupus erythematosus, unspecified; I48.91 Unspecified atrial fibrillation; N18.6 End stage renal disease; F33.9 Major depressive disorder, recurrent, unspecified; M19.011 Primary osteoarthritis, right shoulder; M19.012 Primary osteoarthritis, left shoulder; D50.0 Iron deficiency anemia secondary to blood loss (chronic); K21.9 Gastro-esophageal reflux disease without esophagitis; E78.00 Pure hypercholesterolemia, unspecified; L85.3 Xerosis cutis
CPT/HCPCS: 99214

== ENCOUNTER 2023-07-20 08:51 | Outpatient (AMB) | payer OTHER, SELFPAY ==
--- NOTE | 2023-07-20 07:57 | MHC.OFFVIS ---
Intake Intake Visit Reasons: New Pt - Bilateral Shoulder OA Intake Note: Kael is a 68 year old right hand dominant male who presents today as a new patient with complaints of bilateral shoulder pain.Right shoulder is worse than the left. Curerently on Dialysis He is a patient of Rheumatology, has had [employer] steriod use. Hx of Bilateral Shoulder injections done on 05/13/[address] Reyna. Patient reports that the steriod injections are only helpful for about a week. HE has painfula nd limited ROM Allergies No Known Allergies [No Known Allergies*] Allergy (Verified 07/13/23 15:19) HPI New Pt - Bilateral Shoulder OA HPI Details Kael is a 68 year old Diabetic man who presents with complaints of bilateral shoulder OA pain. He has constant pain and minimal motion. He is has received injections in the past but they were only minimally helpful. He complains of pain with daily activity and limited ROM. He received bilateral shoulder injections on 05/13/23 by Rheumatology. He says the injections gave him relief for ~1 week. He has a hx of Lupus, and follows with rheumatology. he has a hx of [employer] steroid use. He is currently on Dialysis. [facility] Medical History (Updated 07/20/23 @ 09:16 by Mohsen Martinez MD) CKD (chronic kidney disease) stage 4, GFR 15-29 ml/min HTN (hypertension) Dermatitis associated with moisture from stool incontinence Clostridioides difficile diarrhea Urinary retention with incomplete bladder emptying Pacemaker Pancytopenia Incomplete emptying of bladder due to benign prostatic hyperplasia Acute kidney injury superimposed on chronic kidney disease Fistula Paroxysmal A-fib Diastolic heart failure Pulmonary hypertension Depression, major Afib Bradycardia Scrotal edema Anasarca Cirrhosis Lymphedema Type 2 diabetes mellitus with hyperglycemia Osteoarthritis Peripheral neuropathy Obstructive sleep apnea BPH (benign prostatic hyperplasia) Venous stasis dermatitis Obesity (BMI 30-39.9) Hypercholesterolemia Peripheral vascular disease Pulmonary hypertension Essential thrombocytopenia Anemia COPD (chronic obstructive pulmonary disease) Diabetic retinopathy Chronic kidney disease Lumbar degenerative disc disease High cholesterol Edema Gout Surgical History Hx of cardiac pacemaker History of bowel diversion surgery History of gastric surgery H/O prior ablation treatment History of carpal tunnel release History of bilateral cataract extraction History of tonsillectomy Family History Father Prostate cancer CVD (cardiovascular disease) Mother Hemochromatosis Brother Motor vehicle accident Sister CAD (coronary artery disease) Maternal Grandfather Myocardial infarction Social History Household Members: Spouse Housing: House Do you presently have visiting nurse or other home services: Yes Alcohol intake: never Patient Tobacco Use Status: Former Tobacco user Tobacco use type: Cigarette e-Cigarette/Vaping Use: Former Use Second Hand Smoke Exposure: Yes Advance Directives Date on File: 11/06/22 service: No Current occupational status: retired Cognitive needs: Yes Hearing needs: Yes Vision needs: Yes Review of Systems Const All systems reviewed & are unremarkable except as noted in HPI and below Physical Exam Const General: no acute distress, alert and awake Orientation/consciousness: patient oriented x3 HEENT Head: Yes normocephalic and Yes atraumatic Eyes EOM: EOMs intact bilaterally Resp Effort & Inspection: normal respiratory effort and able to speak in complete sentences Cardio Jugular venous distension: no JVD Skin General skin exam: turgor normal Rashes: no rashes Neuro General: patient oriented x3 Extrem Other: 30 deg abduction (passiv and active) no ER bilateral shoulders Psych Appearance: grossly normal Affect: normal affect Attitude: cooperative Results Reviewed Results Reviewed: I personally reviewed relevant radiographs. Severe gh OA bilateral shoulders Assessment & Plan Assessment & Plan (1) Osteoarthritis of shoulders, bilateral: Code(s): M19.011 - Primary osteoarthritis, right shoulder; M19.012 - Primary osteoarthritis, left shoulder Plan: Severe bilateral shoulder OA with compromised function. I reviewed treatment options including injections, PT and surgery. He is not a surgical candidate given his medical comorbidities and he is aware of this. I referred him to pain management as he was underwhelmed by the efficacy of prior steroid injections. (2) SLE (systemic lupus erythematosus): Code(s): M32.9 - Systemic lupus erythematosus, unspecified (3) CKD (chronic kidney disease) stage 4, GFR 15-29 ml/min: Code(s): N18.4 - Chronic kidney disease, stage 4 (severe) Plan: ESRD. Not a surgical candidate Plan Prepared for Mohsen Martinez MD by Raz Bowers, medical professionals, on 07/20/23 at 8:58 AM, EST. Orders: Referrals Pain Management Referral M19.011 - Primary osteoarthritis, right shoulder, M19.012 - Primary osteoarthritis, left shoulder Coding Level of Care Code New Pt Level 4 (51263) Diagnoses Osteoarthritis of shoulders, bilateral M19.011; M19.012 SLE (systemic lupus erythematosus) M32.9 CKD (chronic kidney disease) stage 4, GFR 15-29 ml/min N18.4
== END 2023-07-20 09:44 | disposition home or self-care (01) ==
PROVIDERS: PCP Internal Medicine; Visit Provider Orthopaedic Surgery
DX: M19.011 Primary osteoarthritis, right shoulder (principal); M19.012 Primary osteoarthritis, left shoulder; M32.9 Systemic lupus erythematosus, unspecified; N18.4 Chronic kidney disease, stage 4 (severe)
CPT/HCPCS: 99204; 99214

== ENCOUNTER → 2023-07-20 08:51 | Outpatient (BNVA) | payer OTHER, MEDICARE, SELFPAY | PROVIDERS: PCP Internal Medicine; Visit Provider Orthopaedic Surgery | DX: M19.011 Primary osteoarthritis, right shoulder (principal); M19.012 Primary osteoarthritis, left shoulder; M32.9 Systemic lupus erythematosus, unspecified; N18.6 End stage renal disease | CPT/HCPCS: 99202 ==

== ENCOUNTER 2023-08-10 10:11 | Outpatient (AMB) | payer OTHER, SELFPAY ==
[2023-08-10 11:08] VITALS: BP 120/70; PULSE 75; BMI 33.0
--- NOTE | 2023-08-10 11:08 | A.OFFVIS_ITS ---
Intake Vital Signs 08/10/23 11:08 Height 5 ft 11 in Weight 236 lb 12.423 oz BMI 33.0 BP 120/70 Blood Pressure Location Lt brachial Position Sitting Pulse 75 Pulse Source Pulse Oximeter Intake Visit Reasons: 3 mth f/up Intake Note: pt its here for a 3 mnth f/up, pt state that he its doing fine Disability Hearing Officer Required: No Accompanied by: Self / Same As Patient Allergies No Known Allergies [No Known Allergies*] Allergy (Verified 07/13/23 15:19) Medication List - Last Reconciled 08/10/23 by Danny Ron MD albuterol sulfate 90 mcg/actuation (ProAir HFA) 2 puffs inhalation Q6H PRN amlodipine 5 mg PO DAILY Anoro Ellipta 62.5-25 mcg/actuation (umeclidinium-vilanterol) 1 ea inhalation DAILY NS [APAP 5-15 cm H20 humidified AIR As directed] apixaban 2.5 mg PO BID blood sugar diagnostic (FreeStyle Lite Strips) As directed check the BS BID blood-glucose meter (FreeStyle Lite Meter kit) As directed compr.stocking,thigh,reg,x-lrg As directed 20-30 mm HG kylah.stocking,knee,reg,xlrg As directedcompression stockings bilateral adjustable lower extremity garments ferrous sulfate 325 mg PO DAILY hydroxychloroquine 200 mg PO Q OTHER DAY [Juxta Lite Compression wraps - Adjustable -for chronic ulcers with open wounds bilat lower extremities As directed] ketoconazole 2% appl topical DAILY lancets (FreeStyle Lancets) As directed check BS BID metoprolol tartrate 12.5 mg (1/2 x 25 mg) PO BID 90 days omeprazole 40 mg PO BID polyethylene glycol 3350 (Miralax) 17 grams PO DAILY PRN pravastatin 20 mg PO DAILY prednisone 15 mg (3 x 5 mg) PO DAILY sevelamer carbonate mg PO tramadol 50 mg PO BEDTIME HPI HPI Comments History of Present Illness Details 68-year-old gentleman who is here for fo llow-up. He was previously seeing Dr. Cuevas and Dr Varner at [facility]. He has background history of diabetes, obesity, obstructive sleep apnea, chronic kidney disease, peripheral vascular disease, COPD, gout, hypertension and lymphedema. He has background of junctional bradycardia and as per his report there were some discussions in the past about pacemaker placement but then it was decided not to place a pacemaker. Echocardiography showed normal biventricular function with D-shaped LV cavity pointing towards right ventricular pressure and volume overload. Echo also showed moderate to severe pulmonary hypertension he is a former smoker. Has been taking medications regularly. He was referred for pulmonology evaluation to see if he has hypoxic when he ambulates. This has shown that his saturations are normal when he walks. He has atrial fibrillation with slow ventricular response in low 40s. He has been asymptomatic and denies any chest discomfort, dizziness or syncope. He does look little in more edematous on follow-up. He is saying that he is taking the morning dose of Lasix but not taking the afternoon does regularly. He is supposed to be on 120 mg Lasix in the morning and 80 in the afternoon. Because of progressive kidney disease he had left arm AV fistula placed but since then he has swelling of the left hand and unable to use the left hand and unable to make a fist. He is saying he is going back for surgery where they are going to ligate the AV fistula and make a new 1 in the upper arm. He also had 1 episode of central chest tightness at rest which happen few days ago. He is saying it lasted for few minutes and then resolved. It has not recurred since then. He was referred for stress test but could not exercise signifcantly on treadmill and stress was very limited. 09/2022: He is returning about admission at [facility] for abdominal pain. He had bowel perforation and underwent surgery. His BP was low and his medications were held. He as finished rehab and came back home 2 days ago. He has not been taking the Lasix. He has edema. He has PETERSEN. 12/24/22: He returns for follow-up. He has lost significant weight. Since last visit, he has been started on hemodialysis. He also had admission with severe anemia and was transfused. He is here for follow-up with his . He is planning to undergo vascular surgery to have AV fistula formation on the left arm. He is significantly frail. He is walking with a walker. With ambulation inside the house he has no significant chest discomfort or shortness of breath. He is describing 1 episode of right-sided chest discomfort which lasted for 30 minutes at rest few days ago but it has not been a recurrent symptom for him. With ambulation he currently has no chest discomfort. 04/27/2023: He returns for follow up. Leonardo molina looks better than before. He is saying his appetite is improving. Does not look as frail as he was last time. He is denying shortness of breath. He does get off and on left-sided pressure- like feeling lasting for few seconds at rest. He is saying with activities he does not get any discomfort in his chest. Overall he is clinically stable. Blood pressure control is good. 08/10/2023:He returns for follow-up. He has been doing well. He has gained some weight. No chest discomfort shortness of breath. Compliant with hemodialysis. [facility] Medical History (Updated 07/20/23 @ 09:16 by Mohsen Martinez MD) CKD (chronic kidney disease) stage 4, GFR 15-29 ml/min HTN (hypertension) Dermatitis associated with moisture from stool incontinence Clostridioides difficile diarrhea Urinary retention with incomplete bladder emptying Pacemaker Pancytopenia Incomplete emptying of bladder due to benign prostatic hyperplasia Acute kidney injury superimposed on chronic kidney disease Fistula Paroxysmal A-fib Diastolic heart failure Pulmonary hypertension Depression, major Afib Bradycardia Scrotal edema Anasarca Cirrhosis Lymphedema Type 2 diabetes mellitus with hyperglycemia Osteoarthritis Peripheral neuropathy Obstructive sleep apnea BPH (benign prostatic hyperplasia) Venous stasis dermatitis Obesity (BMI 30-39.9) Hypercholesterolemia Peripheral vascular disease Pulmonary hypertension Essential thrombocytopenia Anemia COPD (chronic obstructive pulmonary disease) Diabetic retinopathy Chronic kidney disease Lumbar degenerative disc disease High cholesterol Edema Gout Surgical History Hx of cardiac pacemaker History of bowel diversion surgery History of gastric surgery H/O prior ablation treatment History of carpal tunnel release History of bilateral cataract extraction History of tonsillectomy Family History Father Prostate cancer CVD (cardiovascular disease) Mother Hemochromatosis Brother Motor vehicle accident Sister CAD (coronary artery disease) Maternal Grandfather Myocardial infarction Social History Household Members: Spouse Housing: House Do you presently have visiting nurse or other home services: Yes Alcohol intake: never Patient Tobacco Use Status: Former Tobacco user Tobacco use type: Cigarette e-Cigarette/Vaping Use: Former Use Second Hand Smoke Exposure: Yes Advance Directives Date on File: 11/06/22 service: No Current occupational status: retired Cognitive needs: Yes Hearing needs: Yes Vision needs: Yes Review of Systems Const Denies chills, Denies fatigue, Denies fever(s), Denies frequent falls, Denies weakness, Denies weight gain and Denies weight loss ENT Denies dizziness Card Denies chest pain, Denies leg edema, Denies lightheadedness, Denies palpitations, Denies dyspnea and Denies dyspnea on exertion Resp Denies cough, Denies dyspnea and Denies dyspnea on exertion GI Denies hematochezia Musc Denies abnormal gait, Denies muscle weakness, Denies numbness, Denies radiating pain into limb and Denies tingling Neuro Denies abnormal gait, Denies dizziness, Denies frequent falls, Denies numbness, Denies tingling and Denies weakness Endo Denies fatigue and Denies palpitations Physical Exam Vital Signs: Last Vital Signs Pulse 75 08/10/23 11:08 BP 120/70 08/10/23 11:08 BMI result Body Mass Index 33.0 GENERAL APPEARANCE: in no acute distress. SKIN: no suspicious lesions, warm and dry. HEART: no murmurs, regular rate and rhythm. LUNGS: Lungs clear to auscultation ABDOMEN: soft, nontender. EXTREMITIES: Chronic changes from lymphedema. Mild edema. PERIPHERAL PULSES: equal. NEUROLOGIC: No gross deficits, AAO X 3 Assessment & Plan Assessment & Plan (1) HTN (hypertension): Comment: May 2013 perfusion negative echo EF 60-65% Code(s): I10 - Essential (primary) hypertension Qualifiers: Hypertension type: essential hypertension Qualified Code(s): I10 - Essential (primary) hypertension (2) Afib: Code(s): I48.91 - Unspecified atrial fibrillation (3) ESRD (end stage renal disease): Code(s): N18.6 - End stage renal disease Plan Pleasant 68-year-old gentleman who is here for follow-up. He has end-stage renal disease at this point and he is on hemodialysis. Blood pressure is well controlled currently. He has atrial fibrillation and is on apixaban 2.5 mg twice a day. He previously had permanent pacemaker placed and we have been monitoring him closely. No issues with pacemaker. Continue same medications currently. He will see us back in 4-6 months. Thank you for allowing me to participate in the care of your patient. Please feel free to contact me if you have any questions. Coding Level of Care Code Est Pt Level 4 (70412) Diagnoses Essential hypertension I10 Hypertension type: essential hypertension Afib I48.91 ESRD (end stage renal disease) N18.6
== END 2023-08-10 11:41 | disposition home or self-care (01) ==
PROVIDERS: PCP Internal Medicine; Visit Provider Internal Medicine Cardiovascular Disease
DX: I12.0 Hypertensive chronic kidney disease with stage 5 chronic kidney disease or end stage renal disease (principal); I48.91 Unspecified atrial fibrillation; N18.6 End stage renal disease
CPT/HCPCS: 99214

== ENCOUNTER → 2023-08-10 10:11 | Outpatient (BNVA) | payer OTHER, SELFPAY | PROVIDERS: PCP Internal Medicine; Visit Provider Internal Medicine Cardiovascular Disease | DX: I12.9 Hypertensive chronic kidney disease with stage 1 through stage 4 chronic kidney disease, or unspecified chronic kidney disease (principal); N18.6 End stage renal disease; I48.91 Unspecified atrial fibrillation | CPT/HCPCS: 99212 ==

== ENCOUNTER 2023-08-12 11:00 | Outpatient (RCR) | payer OTHER, MEDICARE, SELFPAY ==
--- NOTE | 2023-08-28 11:16 | MHC.PT.DC ---
[facility] [place] [facility] [place] [facility] [place] [facility] [address] Javy Shankar [address] [phone] F: [phone] F: [phone] F: [phone] F: [phone] Physical Therapy Discharge Report Diagnosis: STEPHEN SHOULDER OA (KP) Date of Surgery: NA Date of Evaluation: 07/29/23 Date of Discharge: 08/28/23 Treatments to Date: 4 Cancellations to Date: 1 No Shows to Date: 0 Discharge Status: Discharge Summary: Kael phoned to say he had fallen at home and was going to MD for evaluation, called the following day to self DC from PT at this time as he would prefer to f/u with pain management. Electronically signed by: Noa Avitia PT DPT Please sign and return to therapist. Thank you for your referral.
== END 2023-08-28 11:16 | disposition home or self-care (01) ==
LOC: HO.PT 11:00
PROVIDERS: PCP Internal Medicine; Visit Provider Student in an Organized Health Care Education/Training Program
DX: M19.011 Primary osteoarthritis, right shoulder (principal); M19.012 Primary osteoarthritis, left shoulder
CPT/HCPCS: 97110; 97161

== ENCOUNTER 2023-08-14 12:44 | Outpatient (AMB) | payer OTHER, SELFPAY ==
--- NOTE | 2023-08-14 12:59 | A.OFFVIS_ITS ---
Intake Vital Signs 08/14/23 13:04 Height 5 ft 11 in Weight 230 lb BMI 32.1 BP 102/54 L Blood Pressure Location Lt brachial Position Sitting Pulse 75 Pulse Source Pulse Oximeter Pulse Oximetry (%) 96 Oxygen Delivery Method Room Air Intake Visit Reasons: OSTEOARTHRITIS OF SHOULDERS Customer Support Specialist Required: No Accompanied by: Self / Same As Patient Allergies No Known Allergies [No Known Allergies*] Allergy (Verified 08/14/23 13:06) HPI OSTEOARTHRITIS OF SHOULDERS HPI Details Patient is a pleasant 68-year-old male with complex medical and surgical history presents today with bilateral shoulder pain due to severe osteoarthritis with compromised function. He is not a surgical candidate given his medical comorbidities. Patient received cortisone injection over 3 months ago in Rheumatology which gave him temporary mild relief. He is currently in physical therapy which has not provided him any meaningful benefit due to significant pain. Right-hand dominant. Patient reports exacerbation of pain with any activity especially with overhead reaching, cross body movement and IR/ER of the upper extremities which causes him moderate to severe pain. Patient is on long-term anticoagulation with Eliquis for AFib and has pacemaker in place, followed by Dr. Ron. Patient is also on hemodialysis on Thursday, and Saturdays via right AV fistula. Patient reports his shoulder pain has been progressively worse since October 2022. Denies any trauma, injury, or falls. Pain affects his daily activities, functioning, sleep, social activities and quality of life. Patient also reports low back pain with flexion and extension. He notes shoulder pain has been the most troublesome to him. Denies any recent cough, cold, infection, fever, any significant changes in his medical history, medications or recent hospitalizations. Location Bilateral shoulders Duration Chronic pain due to severe osteoarthritis Characteristics of symptom or complaint Aching, tightness, piercing, tiring, sharp Aggravating or associated factors Any movement, daily activities, reaching across Relieving factors Rest, heat, tramadol, Tylenol, activity modifications Treatment PT- no improvement, injections- slight relief, better if with fluoroscopy [facility] Medical History CKD (chronic kidney disease) stage 4, GFR 15-29 ml/min HTN (hypertension) Dermatitis associated with moisture from stool incontinence Clostridioides difficile diarrhea Urinary retention with incomplete bladder emptying Pacemaker Pancytopenia Incomplete emptying of bladder due to benign prostatic hyperplasia Acute kidney injury superimposed on chronic kidney disease Fistula Paroxysmal A-fib Diastolic heart failure Pulmonary hypertension Depression, major Afib Bradycardia Scrotal edema Anasarca Cirrhosis Lymphedema Type 2 diabetes mellitus with hyperglycemia Osteoarthritis Peripheral neuropathy Obstructive sleep apnea BPH (benign prostatic hyperplasia) Venous stasis dermatitis Obesity (BMI 30-39.9) Hypercholesterolemia Peripheral vascular disease Pulmonary hypertension Essential thrombocytopenia Anemia COPD (chronic obstructive pulmonary disease) Diabetic retinopathy Chronic kidney disease Lumbar degenerative disc disease High cholesterol Edema Gout Surgical History Hx of cardiac pacemaker History of bowel diversion surgery History of gastric surgery H/O prior ablation treatment History of carpal tunnel release History of bilateral cataract extraction History of tonsillectomy Family History Father Prostate cancer CVD (cardiovascular disease) Mother Hemochromatosis Brother Motor vehicle accident Sister CAD (coronary artery disease) Maternal Grandfather Myocardial infarction Social History Household Members: Spouse Housing: House Do you presently have visiting nurse or other home services: Yes Alcohol intake: never Patient Tobacco Use Status: Former Tobacco user Tobacco use type: Cigarette e-Cigarette/Vaping Use: Former Use Second Hand Smoke Exposure: Yes Advance Directives Date on File: 11/06/22 service: No Current occupational status: retired Cognitive needs: Yes Hearing needs: Yes Vision needs: Yes Review of Systems Const All systems reviewed & are unremarkable except as noted in HPI and below Physical Exam Vital Signs: Last Vital Signs Pulse 75 08/14/23 13:04 BP 102/54 L 08/14/23 13:04 Pulse Ox 96 08/14/23 13:04 Oxygen Delivery Method Room Air 08/14/23 13:04 BMI result Body Mass Index 32.1 General: Appears afebrile. Alert and oriented. Mood and affect appropriate. Follows and participates in conversation appropriately. Respiratory effort is unlabored. No cough. Able to transition from sit to stand unassisted. Uses cane with ambulation. Slow, antalgic gait with mild limping. Lumbar ROM limited due to pain. Back/Spine/Pelvis Thoracic/Lumbar Spine: thoracic and lumbar spine normal to inspection, Lasegue's sign negative, pain with thoraco-lumbar ROM, thoraco-lumbar ROM limited, No thoracic spinal tenderness and lumbar spinal tenderness (L3-S1) Extrem Other: Bilateral shoulders normal to inspection. No erythema or ecchymosis. Patient has difficulty with overhead reach or reaching his back pockets. Significant te nderness to palpation to the anterior and posterior aspects of the both shoulders. Unable to adequately assess empty can and drop arm due to patient pain. General: Yes capillary refill normal, Yes no calf tenderness, No cyanosis and Yes pedal edema (+1) Results Reviewed Results Reviewed: XR WRIST, BILATERAL XR HAND, BILATERAL XR SHOULDER, BILATERAL 03/03/23 CLINICAL INFORMATION: Any signs of inflammatory arthritis? Pain. COMPARISON: Right hand 10/24/2022 FINDINGS: RIGHT WRIST/HAND: Vascular calcifications. Bones are diffusely demineralized. Moderate degenerative changes in the 1st carpometacarpal joint with joint space narrowing and hypertrophic change. Mild degenerative changes in scattered interphalangeal joints, most notable in the DIP joints. Suggestion of periarticular erosive changes most notable at the distal aspect of the 2nd proximal phalange. A 6 mm cystic lucency at the distal aspect of the 2nd proximal phalanx. LEFT WRIST/HAND: Vascular calcifications. Bones are diffusely demineralized. Moderate degenerative changes in the 1st carpometacarpal joint with joint space narrowing and hypertrophic change. Mild degenerative changes in scattered interphalangeal joints. Periarticular erosions most notable at the PIP joint of the 2nd digit. RIGHT SHOULDER: Bones are diffusely demineralized. Catheter partially visualized overlying the mediastinum. Severe degenerative changes in the glenohumeral joint with loss of the joint space, hypertrophic change and periarticular lucencies. Scattered soft tissue calcifications may be vascular. Moderate degenerative changes in the acromioclavicular joint. LEFT SHOULDER: Bones are diffusely demineralized. Pacer overlies the upper left thorax. Severe degenerative changes in the glenohumeral joint with loss of the joint space, hypertrophic change and periarticular lucencies. Scattered soft tissue calcifications may be vascular. Moderate degenerative changes in the acromioclavicular joint. IMPRESSION: 1. Scattered degenerative changes in bilateral hands as detailed above. 2. Severe degenerative changes in the bilateral glenohumeral joints. 3. Bones are diffusely demineralized. Additional imaging with CT scan or MRI should be considered for better visualization as these modalities are much more sensitive for detection of fracture or other underlying pathology. Assessment & Plan Assessment & Plan (1) Osteoarthritis of shoulders, bilateral: Code(s): M19.011 - Primary osteoarthritis, right shoulder; M19.012 - Primary osteoarthritis, left shoulder (2) Bilateral shoulder pain: Code(s): M25.511 - Pain in right shoulder; M25.512 - Pain in left shoulder (3) Lumbosacral spondylosis: Code(s): M47.817 - Spondylosis without myelopathy or radiculopathy, lumbosacral region Plan Schedule Bilateral Intra-articular shoulder steroid injections with fluoroscopy/US guidance for chronic shoulder pain due to OA with compromised function. We also discussed RFA procedure. Patient is not candidate for peripheral nerve stimulation due to pacemaker in place. Expectations, risks and benefits were reviewed. Patient is aware he will be contacted to schedule this procedure. If no or minimal relief to steroidal injections, we will plan to do diagnostic nerve blocks for the suprascapular and axillary articular branches on both sides at the same time followed by potential bilateral RFA one week apart if there's a successful response to the diagnostic blocks. Continue heat/ice therapy, Tylenol prn, tramadol (prescribed by PCP) and activity modifications. All questions and concerns have been answered and patient agreed with the plan. Follow up after injections and sooner as needed. Anticoagulation: Patient on anticoagulation (Eliquis) and instructions given on when to pause with prescribing physician permission. Justification for interventional therapy: ? Patient with average pain > 6/10 ? Patient has exhausted conservative therapy, PT, HEP, Tylenol, tramadol, heat therapy ? Patient cannot take NSAIDs due to CKD stage 4, long-term anticoagulation The risks, consequences, alternatives, and benefits of various treatment options were discussed with the patient in great detail, including conservative management, injections and procedures. Patient is aware of hyperglycemic effects of steroids. Coding Level of Care Code New Pt Level 4 (61469) Diagnoses Osteoarthritis of shoulders, bilateral M19.011; M19.012 Bilateral shoulder pain M25.511; M25.512 Lumbosacral spondylosis M47.817
[2023-08-14 13:04] VITALS: BP 102/54; PULSE 75; O2SAT 96; BMI 32.1
== END 2023-08-14 13:28 | disposition home or self-care (01) ==
PROVIDERS: PCP Internal Medicine; Referring Provider Orthopaedic Surgery; Visit Provider Nurse Practitioner Family
DX: M19.011 Primary osteoarthritis, right shoulder (principal); M19.012 Primary osteoarthritis, left shoulder; M25.511 Pain in right shoulder; M25.512 Pain in left shoulder; M47.817 Spondylosis without myelopathy or radiculopathy, lumbosacral region
CPT/HCPCS: 99204

== ENCOUNTER → 2023-08-14 12:44 | Outpatient (BNVA) | payer OTHER, SELFPAY | PROVIDERS: PCP Internal Medicine; Referring Provider Orthopaedic Surgery; Visit Provider Nurse Practitioner Family | DX: M19.011 Primary osteoarthritis, right shoulder (principal); M19.012 Primary osteoarthritis, left shoulder; M25.511 Pain in right shoulder; M25.512 Pain in left shoulder; M47.817 Spondylosis without myelopathy or radiculopathy, lumbosacral region | CPT/HCPCS: 99202 ==

== ENCOUNTER 2023-08-31 09:38 | Outpatient (AMB) | payer OTHER, SELFPAY ==
[2023-08-31 09:46] VITALS: BP 141/60; PULSE 75; RESP 12; O2SAT 100; BMI 33.5
--- NOTE | 2023-08-31 09:46 | MHC.OFFVIS ---
Intake Vital Signs 08/31/23 09:46 Height 5 ft 11 in Weight 240 lb BMI 33.5 BP 141/60 H Blood Pressure Location Lt brachial Position Sitting Respiration 12 Pulse 75 Pulse Source Pulse Oximeter Pulse Oximetry (%) 100 Oxygen Delivery Method Room Air Intake Visit Reasons: bilateral theraputic intraarticular shoulder inj Allergies No Known Allergies [No Known Allergies*] Allergy (Verified 08/31/23 09:47) Medication List - Last Reconciled 08/31/23 by Maggie Mukherjee LPN albuterol sulfate 90 mcg/actuation (ProAir HFA) 2 puffs inhalation Q6H PRN amlodipine 5 mg PO DAILY Anoro Ellipta 62.5-25 mcg/actuation (umeclidinium-vilanterol) 1 ea inhalation DAILY NS [APAP 5-15 cm H20 humidified AIR As directed] apixaban 2.5 mg PO BID blood sugar diagnostic (FreeStyle Lite Strips) As directed check the BS BID blood-glucose meter (FreeStyle Lite Meter kit) As directed compr.stocking,thigh,reg,x-lrg As directed 20-30 mm HG kylah.stocking,knee,reg,xlrg As directedcompression stockings bilateral adjustable lower extremity garments ergocalciferol (vitamin D2) 50 mcg PO DAILY ferrous sulfate 325 mg PO DAILY hydroxychloroquine 200 mg PO Q OTHER DAY [Juxta Lite Compression wraps - Adjustable -for chronic ulcers with open wounds bilat lower extremities As directed] ketoconazole 2% appl topical DAILY lancets (FreeStyle Lancets) As directed check BS BID metoprolol tartrate 12.5 mg (1/2 x 25 mg) PO BID 90 days midodrine 5 mg PO DAILY polyethylene glycol 3350 (Miralax) 17 grams PO DAILY PRN pravastatin 20 mg PO DAILY sevelamer carbonate mg PO tramadol 50 mg PO BEDTIME HPI bilateral theraputic intraarticular shoulder inj HPI Details 68-year-old male who presents today to the office for a bilateral therapeutic intraarticular shoulder injection. Denies any recent cough, cold, infection, fever, or other significant changes in medical history since the last office visit.? He is currently on Eliquis 2.5 twice a week. He has a history of kidney disease.? His last HbA1C was 6.0%, and his last blood sugar level was 90. [facility] Medical History CKD (chronic kidney disease) stage 4, GFR 15-29 ml/min HTN (hypertension) Dermatitis associated with moisture from stool incontinence Clostridioides difficile diarrhea Urinary retention with incomplete bladder emptying Pacemaker Pancytopenia Incomplete emptying of bladder due to benign prostatic hyperplasia Acute kidney injury superimposed on chronic kidney disease Fistula Paroxysmal A-fib Diastolic heart failure Pulmonary hypertension Depression, major Afib Bradycardia Scrotal edema Anasarca Cirrhosis Lymphedema Type 2 diabetes mellitus with hyperglycemia Osteoarthritis Peripheral neuropathy Obstructive sleep apnea BPH (benign prostatic hyperplasia) Venous stasis dermatitis Obesity (BMI 30-39.9) Hypercholesterolemia Peripheral vascular disease Pulmonary hypertension Essential thrombocytopenia Anemia COPD (chronic obstructive pulmonary disease) Diabetic retinopathy Chronic kidney disease Lumbar degenerative disc disease High cholesterol Edema Gout Surgical History Hx of cardiac pacemaker History of bowel diversion surgery History of gastric surgery H/O prior ablation treatment History of carpal tunnel release History of bilateral cataract extraction History of tonsillectomy Family History Father Prostate cancer CVD (cardiovascular disease) Mother Hemochromatosis Brother Motor vehicle accident Sister CAD (coronary artery disease) Maternal Grandfather Myocardial infarction Social History Household Members: Spouse Housing: House Do you presently have visiting nurse or other home services: Yes Alcohol intake: never Patient Tobacco Use Status: Former Tobacco user Tobacco use type: Cigarette e-Cigarette/Vaping Use: Former Use Second Hand Smoke Exposure: Yes Advance Directives Date on File: 11/06/22 service: No Current occupational status: retired Cognitive needs: Yes Hearing needs: Yes Vision needs: Yes Review of Systems Const All systems reviewed & are unremarkable except as noted in HPI and below Physical Exam Vital Signs: Last Vital Signs Pulse 75 08/31/23 09:46 Resp 12 08/31/23 09:46 BP 141/60 H 08/31/23 09:46 Pulse Ox 100 08/31/23 09:46 Oxygen Delivery Method Room Air 08/31/23 09:46 BMI result Body Mass Index 33.5 General: Appears afebrile. Alert and oriented. Mood and affect appropriate. Follows and participates in conversation appropriately. Respiratory effort is unlabored. Able to transition from sit to stand unassisted. Ambulates with bilaterally normal heel strike and toe off. Office Procedures Joint Injection/Drain Joint Injection/Drain Details: Bilateral glenohumeral joint injection with ultrasound guidance. Primary Site: right shoulder Secondary Site: left shoulder Prep: site was prepped using aseptic technique and site was prepped using sterile technique Injected: 40 mg of (On each side), Kenalog, with 4 mL of (ropivacaine 0.25%), 1% plain lidocaine and in the joint Approach Used: posterolateral Procedure: The patient tolerated the procedure well Coding Details: An ultrasound image of the injection was taken and stored in the permanent record. - Glenohumeral with ultrasound guidance (bilateral) Procedure code (CPT) selection complete Results Reviewed Results Reviewed: No imaging is available for review. Assessment & Plan Assessment & Plan (1) Osteoarthritis of shoulders, bilateral: Code(s): M19.011 - Primary osteoarthritis, right shoulder; M19.012 - Primary osteoarthritis, left shoulder Plan Patient is status post bilateral glenohumeral joint injection with ultrasound guidance. Patient tolerated procedure well and was discharged home in stable condition with discharge instructions. All questions were answered. We will follow-up in two weeks via telephone or in clinic to assess response to therapy. A follow-up appointment was made during today's visit. Scribed for Dr. Apodaca by Stone Hoyt, medical technologist chemistry, on 08/31/2023. I, Dr. Apodaca, have personally reviewed and agree with the information entered by the scribe. Coding Level of Care Code Procedure Only Diagnoses Osteoarthritis of shoulders, bilateral M19.011; M19.012 CPT Codes Coding - Joint 8: - Glenohumeral with ultrasound guidance ([id number])
== END 2023-08-31 10:13 | disposition home or self-care (01) ==
PROVIDERS: PCP Internal Medicine; Visit Provider Internal Medicine
DX: M19.011 Primary osteoarthritis, right shoulder (principal); M19.012 Primary osteoarthritis, left shoulder
CPT/HCPCS: 20611

== ENCOUNTER → 2023-08-31 09:38 | Outpatient (BNVA) | payer OTHER, MEDICARE, SELFPAY | PROVIDERS: PCP Internal Medicine; Visit Provider Internal Medicine | DX: M19.011 Primary osteoarthritis, right shoulder (principal); M19.012 Primary osteoarthritis, left shoulder | CPT/HCPCS: 20611; J2795; J3301 ==

== ENCOUNTER 2023-09-02 11:08 | Outpatient (AMB) | payer OTHER, SELFPAY ==
--- NOTE | 2023-09-02 11:12 | MHC.OFFVIS ---
Intake Vital Signs 09/02/23 11:13 Height 5 ft 11 in Weight 241 lb 13.553 oz BMI 33.7 BP 128/64 Blood Pressure Location Lt brachial Position Sitting Pulse 79 Pulse Source Pulse Oximeter Temp 97.9 F Temp Source Skin Pulse Oximetry (%) 98 Oxygen Delivery Method Room Air Intake Visit Reasons: SLE/OA Intake Note: Patient last seen 07/06/23 presents today for follow up and test results. 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: No Accompanied by: Self / Same As Patient Allergies No Known Allergies [No Known Allergies*] Allergy (Verified 09/02/23 11:13) Medication List - Last Reconciled 09/02/23 by Colton Reyna MD albuterol sulfate 90 mcg/actuation (ProAir HFA) 2 puffs inhalation Q6H PRN amlodipine 5 mg PO DAILY Anoro Ellipta 62.5-25 mcg/actuation (umeclidinium-vilanterol) 1 ea inhalation DAILY NS [APAP 5-15 cm H20 humidified AIR As directed] apixaban 2.5 mg PO BID blood sugar diagnostic (FreeStyle Lite Strips) As directed check the BS BID blood-glucose meter (FreeStyle Lite Meter kit) As directed compr.stocking,thigh,reg,x-lrg As directed 20-30 mm HG kylah.stocking,knee,reg,xlrg As directedcompression stockings bilateral adjustable lower extremity garments ergocalciferol (vitamin D2) 50 mcg PO DAILY ferrous sulfate 325 mg PO DAILY hydroxychloroquine 200 mg PO Q OTHER DAY [Juxta Lite Compression wraps - Adjustable -for chronic ulcers with open wounds bilat lower extremities As directed] ketoconazole 2% appl topical DAILY lancets (FreeStyle Lancets) As directed check BS BID metoprolol tartrate 12.5 mg (1/2 x 25 mg) PO BID 90 days midodrine 5 mg PO DAILY polyethylene glycol 3350 (Miralax) 17 grams PO DAILY PRN pravastatin 20 mg PO DAILY sevelamer carbonate mg PO tramadol 50 mg PO BEDTIME HPI HPI Comments History of Present Illness Details 68-year-old male with SLE returns for follow-up. On hydroxychloroquine every other day. He was evaluated by Orthopedics, and deemed not a surgical candidate for shoulder replacement. He was referred to pain management and had bilateral shoulder ultrasound-guided cortisone injections. He believes he has having a little more range of motion especially the left shoulder. He feels about the same otherwise INITIAL HISTORY: This is a 68-year-old male with a past medical history of SLE, gout who presents for follow-up. He was last seen by Dr. Birch 2 years ago. Patient was admitted to the hospital in July of 2022 and discharged in November of 2022. Patient had a GI bleed, he had other complications including acute on chronic CKD which turned into end-stage CKD, now he is on hemodialysis. He had a pacemaker placed. He also had multiple infections. He has lost 80 lb since then. Over the last 6-7 months patient has been having bilateral shoulder pain and stiffness. Gets intermittent ankle swelling. He has not been on the hydroxychloroquine for more than a year as he was not able to get any refills. He is not taking allopurinol but has not had any gout flares recently. He denies any skin rashes. [facility] Medical History CKD (chronic kidney disease) stage 4, GFR 15-29 ml/min HTN (hypertension) Dermatitis associated with moisture from stool incontinence Clostridioides difficile diarrhea Urinary retention with incomplete bladder emptying Pacemaker Pancytopenia Incomplete emptying of bladder due to benign prostatic hyperplasia Acute kidney injury superimposed on chronic kidney disease Fistula Paroxysmal A-fib Diastolic heart failure Pulmonary hypertension Depression, major Afib Bradycardia Scrotal edema Anasarca Cirrhosis Lymphedema Type 2 diabetes mellitus with hyperglycemia Osteoarthritis Peripheral neuropathy Obstructive sleep apnea BPH (benign prostatic hyperplasia) Venous stasis dermatitis Obesity (BMI 30-39.9) Hypercholesterolemia Peripheral vascular disease Pulmonary hypertension Essential thrombocytopenia Anemia COPD (chronic obstructive pulmonary disease) Diabetic retinopathy Chronic kidney disease Lumbar degenerative disc disease High cholesterol Edema Gout Surgical History Hx of cardiac pacemaker History of bowel diversion surgery History of gastric surgery H/O prior ablation treatment History of carpal tunnel release History of bilateral cataract extraction History of tonsillectomy Family History Father Prostate cancer CVD (cardiovascular disease) Mother Hemochromatosis Brother Motor vehicle accident Sister CAD (coronary artery disease) Maternal Grandfather Myocardial infarction Social History Household Members: Spouse Housing: House Do you presently have visiting nurse or other home services: Yes Alcohol intake: never Patient Tobacco Use Status: Former Tobacco user Tobacco use type: Cigarette e-Cigarette/Vaping Use: Former Use Second Hand Smoke Exposure: Yes Advance Directives Date on File: 11/06/22 service: No Current occupational status: retired Cognitive needs: Yes Hearing needs: Yes Vision needs: Yes Review of Systems Musc Reports arthralgias, Reports limited range of motion and Reports stiffness Physical Exam Vital Signs: Last Vital Signs Temp 97.9 F 09/02/23 11:13 Pulse 79 09/02/23 11:13 BP 128/64 09/02/23 11:13 Pulse Ox 98 09/02/23 11:13 Oxygen Delivery Method Room Air 09/02/23 11:13 BMI result Body Mass Index 33.7 Const General: cooperative and poor hygiene Nutritional Appearance: overweight HEENT Other: Bilateral temporal wasting Resp Effort & Inspection: normal respiratory effort and able to speak in complete sentences Skin Other: Dry skin on both lower extremities Extrem Other: Osteoarthritic changes of both hands Mild flexure contracture of multiple PIPs No wrist swelling tenderness or pain with full range of motion No elbow swelling or tenderness or pain with range of motion Bilateral significantly limited abduction of both shoulders worse on the left Significant shoulder crepitus bilaterally Bilateral knee osteoarthritis, crepitus with knee flexion Normal nailfold capillaroscopy Results Reviewed Results Reviewed: [address] [address] XRay Report Signed Patient: Kael Meyer MR#: [id number] : 1955 Acct:[id number] Age/Sex: 68 / M ADM Date: 03/03/23 Loc: HO.XRAY Attending Dr: Colton Reyna MD Ordering Physician: Colton Reyna MD Date of Service: 03/03/23 Procedure(s): XR shoulder RT min 2V Accession Number(s): [id number] cc: Steve Nguyen MD; Colton Reyna MD~ EXAMINATION: XR WRIST, BILATERAL XR HAND, BILATERAL XR SHOULDER, BILATERAL CLINICAL INFORMATION: Any signs of inflammatory arthritis? Pain. COMPARISON: Right hand 10/24/2022 TECHNIQUE: 4 views of each hand. 4 views of each shoulder.. FINDINGS: RIGHT WRIST/HAND: Vascular calcifications. Bones are diffusely demineralized. Moderate degenerative changes in the 1st carpometacarpal joint with joint space narrowing and hypertrophic change. Mild degenerative changes in scattered interphalangeal joints, most notable in the DIP joints. Suggestion of periarticular erosive changes most notable at the distal aspect of the 2nd proximal phalange. A 6 mm cystic lucency at the distal aspect of the 2nd proximal phalanx. LEFT WRIST/HAND: Vascular calcifications. Bones are diffusely demineralized. Moderate degenerative changes in the 1st carpometacarpal joint with joint space narrowing and hypertrophic change. Mild degenerative changes in scattered interphalangeal joints. Periarticular erosions most notable at the PIP joint of the 2nd digit. RIGHT SHOULDER: Bones are diffusely demineralized. Catheter partially visualized overlying the mediastinum. Severe degenerative changes in the glenohumeral joint with loss of the joint space, hypertrophic change and periarticular lucencies. Scattered soft tissue calcifications may be vascular. Moderate degenerative changes in the acromioclavicular joint. LEFT SHOULDER: Bones are diffusely demineralized. Pacer overlies the upper left thorax. Severe degenerative changes in the glenohumeral joint with loss of the joint space, hypertrophic change and periarticular lucencies. Scattered soft tissue calcifications may be vascular. Moderate degenerative changes in the acromioclavicular joint. XR/XR shoulder RT min 2V IMPRESSION: 1. Scattered degenerative changes in bilateral hands as detailed above. 2. Severe degenerative changes in the bilateral glenohumeral joints. 3. 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 When initially evaluated by be 02/2023 he had bilateral hand synovitis which resolved with prednisone taper. Hydroxychloroquine was restarted. This has not recurred I do not see any features of active SLE upon evaluation today. Continue with hydroxychloroquine 200 mg every other day Labs before next visit in 4 months (2) Gout: Code(s): M10.9 - Gout, unspecified Qualifiers: Gout site: unspecified site Gout etiology: idiopathic Chronicity: chronic Presence of tophus: without tophus Qualified Code(s): M1A.00X0 - Idiopathic chronic gout, unspecified site, without tophus (tophi) Plan: Has not been on allopurinol for a long period of time, has not had any gout flares recently. He is on dialysis currently (3) Long-term use of hydroxychloroquine: Code(s): Z79.899 - Other senior living (current) drug therapy Plan: Discussed risk of retinopathy associated with hydroxychloroquine. Patient has an appointment with model maker [employer]erglass in the coming few days. Advised patient to ask model maker [employer]erg[employer] to send me their office notes (4) Osteoarthritis of shoulders, bilateral: Code(s): M19.011 - Primary osteoarthritis, right shoulder; M19.012 - Primary osteoarthritis, left shoulder Qualifiers: Osteoarthritis type: primary Qualified Code(s): M19.011 - Primary osteoarthritis, right shoulder; M19.012 - Primary osteoarthritis, left shoulder Plan: Bilateral severe glenohumeral osteoarthritis. Received bilateral shoulder intra-articular steroid injections by me 04/2023, not very helpful, evaluated by Orthopedics and deemed not a surgical candidate, 08/30 he had bilateral shoulder ultrasound-guided steroid injections. Plan I spent 35 minutes reviewing patient's chart, evaluating patient, ordering diagnostic workup, counseling patient and documenting in the chart Orders: Orders Complement C3 4 Months M32.9 - Systemic lupus erythematosus, unspecified Complement C4 4 Months M32.9 - Systemic lupus erythematosus, unspecified C Reactive Protein 4 Months M32.9 - Systemic lupus erythematosus, unspecified Comprehensive Met. Panel 4 Months M32.9 - Systemic lupus erythematosus, unspecified Anti DNA DS Antibody 4 Months M32.9 - Systemic lupus erythematosus, unspecified Erythrocyte Sedimentation Rate 4 Months M32.9 - Systemic lupus erythematosus, unspecified Complete Blood Count Auto Diff 4 Months M32.9 - Systemic lupus erythematosus, unspecified Coding Level of Care Code Est Pt Level 5 (92003) Diagnoses SLE (systemic lupus erythematosus related syndrome) M32.9 Idiopathic chronic gout without tophus, unspecified site M1A.00X0 Gout site: unspecified site Gout etiology: idiopathic Chronicity: chronic Presence of tophus: without tophus Long-term use of hydroxychloroquine Z79.899 Primary osteoarthritis of both shoulders M19.011; M19.012 Osteoarthritis type: primary
[2023-09-02 11:13] VITALS: BP 128/64; PULSE 79; TEMP 36.6; O2SAT 98; BMI 33.7
== END 2023-09-02 11:40 | disposition home or self-care (01) ==
PROVIDERS: PCP Internal Medicine; Visit Provider Student in an Organized Health Care Education/Training Program
DX: M32.9 Systemic lupus erythematosus, unspecified (principal); M1A.00X0 Idiopathic chronic gout, unspecified site, without tophus (tophi); Z79.899 Other long term (current) drug therapy; M19.011 Primary osteoarthritis, right shoulder; M19.012 Primary osteoarthritis, left shoulder
CPT/HCPCS: 99214

== ENCOUNTER → 2023-09-02 11:11 | Outpatient (BNVA) | payer OTHER, MEDICARE, SELFPAY | PROVIDERS: PCP Internal Medicine; Visit Provider Student in an Organized Health Care Education/Training Program | DX: M32.9 Systemic lupus erythematosus, unspecified (principal); M1A.00X0 Idiopathic chronic gout, unspecified site, without tophus (tophi); M19.011 Primary osteoarthritis, right shoulder; M19.012 Primary osteoarthritis, left shoulder; Z79.899 Other long term (current) drug therapy | CPT/HCPCS: 99212 ==

== ENCOUNTER 2023-09-21 13:46 | Outpatient (AMB) | payer OTHER, SELFPAY ==
--- NOTE | 2023-09-21 13:51 | A.OFFVIS_ITS ---
Intake Vital Signs 09/21/23 13:56 Height 5 ft 11 in Weight 228 lb 6 oz BMI 31.8 BP 152/67 H Blood Pressure Location Lt brachial Position Sitting Pulse 75 Pulse Source Pulse Oximeter Pulse Oximetry (%) 98 Oxygen Delivery Method Room Air Intake Visit Reasons: s/p rodo intraarticular shoulder inj Intake Note: Pain today 0/10 when arms at his side, pain increases when he raises them. Armature Coil Winder Required: No Accompanied by: Self / Same As Patient Allergies No Known Allergies [No Known Allergies*] Allergy (Verified 09/21/23 13:56) HPI HPI Comments History of Present Illness Details Patient presents today to assess response to bilateral glenohumeral joint injections with US guidance on 08/31/[address] Apodaca. Patient reports overall 45% pain relief since procedure and partial improvement in his range of motion, ADLs, and sleep. Patient reports bilateral shoulder pain 0/10 at rest and both hands with activities and holding his hands below heart level. His shoulder pain quickly raises to 6-7/10 with raising his hands above heart level or attempting overhead reaches. He states recent injections do allow him to be less symptomatic and more functional. Patient is not surgical candidate for shoulder replacement given his complex medical history and current comorbidities. Denies any recent cough, cold, infection, fever, any significant changes in her medical history, medications or recent hospitalizations. Past Procedures: 08/31/23: Bilateral glenohumeral joint i njections with Kenolog 40 mg in each joint-45% ongoing pain relief PRIOR: Patient is a pleasant 68-year-old male with complex medical and surgical history presents today with bilateral shoulder pain due to severe osteoarthritis with compromised function. He is not a surgical candidate given his medical comorbidities. Patient received cortisone injection over 3 months ago in Rheumatology which gave him temporary mild relief. He is currently in physical therapy which has not provided him any meaningful benefit due to significant pain. Right-hand dominant. Patient reports exacerbation of pain with any activity especially with overhead reaching, cross body movement and IR/ER of the upper extremities which causes him moderate to severe pain. Patient is on long- term anticoagulation with Eliquis for AFib and has pacemaker in place, followed by Dr. Ron. Patient is also on hemodialysis on Thursday, and Saturdays via right AV fistula. Patient reports his shoulder pain has been progressively worse since October 2022. Denies any trauma, injury, or falls. Pain affects his daily activities, functioning, sleep, social activities and quality of life. Patient also reports low back pain with flexion and extension. He notes shoulder pain has been the most troublesome to him. Denies any recent cough, cold, infection, fever, any significant changes in his medical history, medications or recent hospitalizations. Location Bilateral shoulders Duration Chronic pain due to severe osteoarthritis Characteristics of symptom or complaint Aching, tightness, piercing, tiring, sharp Aggravating or associated factors Any movement, daily activities, reaching across Relieving factors Rest, heat, tramadol, Tylenol, activity modifications Treatment PT- no improvement, injections- slight relief, better if with fluoroscopy PFS Medical History CKD (chronic kidney disease) stage 4, GFR 15-29 ml/min HTN (hypertension) Dermatitis associated with moisture from stool incontinence Clostridioides difficile diarrhea Urinary retention with incomplete bladder emptying Pacemaker Pancytopenia Incomplete emptying of bladder due to benign prostatic hyperplasia Acute kidney injury superimposed on chronic kidney disease Fistula Paroxysmal A-fib Diastolic heart failure Pulmonary hypertension Depression, major Afib Bradycardia Scrotal edema Anasarca Cirrhosis Lymphedema Type 2 diabetes mellitus with hyperglycemia Osteoarthritis Peripheral neuropathy Obstructive sleep apnea BPH (benign prostatic hyperplasia) Venous stasis dermatitis Obesity (BMI 30-39.9) Hypercholesterolemia Peripheral vascular disease Pulmonary hypertension Essential thrombocytopenia Anemia COPD (chronic obstructive pulmonary disease) Diabetic retinopathy Chronic kidney disease Lumbar degenerative disc disease High cholesterol Edema Gout Surgical History Hx of cardiac pacemaker History of bowel diversion surgery History of gastric surgery H/O prior ablation treatment History of carpal tunnel release History of bilateral cataract extraction History of tonsillectomy Family History Father Prostate cancer CVD (cardiovascular disease) Mother Hemochromatosis Brother Motor vehicle accident Sister CAD (coronary artery disease) Maternal Grandfather Myocardial infarction Social History Household Members: Spouse Housing: House Do you presently have visiting nurse or other home services: Yes Alcohol intake: never Patient Tobacco Use Status: Former Tobacco user Tobacco use type: Cigarette e-Cigarette/Vaping Use: Former Use Second Hand Smoke Exposure: Yes Advance Directives Date on File: 11/06/22 service: No Current occupational status: retired Cognitive needs: Yes Hearing needs: Yes Vision needs: Yes Review of Systems Const All systems reviewed & are unremarkable except as noted in HPI and below Physical Exam Vital Signs: Last Vital Signs Pulse 75 09/21/23 13:56 BP 152/67 H 09/21/23 13:56 Pulse Ox 98 09/21/23 13:56 Oxygen Delivery Method Room Air 09/21/23 13:56 BMI result Body Mass Index 31.8 General: Appears afebrile. Alert and oriented. Mood and affect appropriate. Follows and participates in conversation appropriately. Respiratory effort is unlabored. Able to transition from sit to stand unassisted. Ambulates with bilaterally normal heel strike and toe off. Extrem Other: Limited bilateral shoulder ROM, active and passive abduction reproduces moderate pain, worse on the left. Significant crepitus global shoulder bilaterally. General: Yes capillary refill normal, Yes no calf tenderness and No edema Results Reviewed Results Reviewed: XR WRIST, BILATERAL XR HAND, BILATERAL XR SHOULDER, BILATERAL 03/03/23 CLINICAL INFORMATION: Any signs of inflammatory arthritis? Pain. COMPARISON: Right hand 10/24/2022 FINDINGS: RIGHT WRIST/HAND: Vascular calcifications. Bones are diffusely demineralized. Moderate degenerative changes in the 1st carpometacarpal joint with joint space narrowing and hypertrophic change. Mild degenerative changes in scattered interphalangeal joints, most notable in the DIP joints. Suggestion of periarticular erosive changes most notable at the distal aspect of the 2nd proximal phalange. A 6 mm cystic lucency at the distal aspect of the 2nd proximal phalanx. LEFT WRIST/HAND: Vascular calcifications. Bones are diffusely demineralized. Moderate degenerative changes in the 1st carpometacarpal joint with joint space narrowing and hypertrophic change. Mild degenerative changes in scattered interphalangeal joints. Periarticular erosions most notable at the PIP joint of the 2nd digit. RIGHT SHOULDER: Bones are diffusely demineralized. Catheter partially visualized overlying the mediastinum. Severe degenerative changes in the glenohumeral joint with loss of the joint space, hypertrophic change and periarticular lucencies. Scattered soft tissue calcifications may be vascular. Moderate degenerative changes in the acromioclavicular joint. LEFT SHOULDER: Bones are diffusely demineralized. Pacer overlies the upper left thorax. Severe degenerative changes in the glenohumeral joint with loss of the joint space, hypertrophic change and periarticular lucencies. Scattered soft tissue calcifications may be vascular. Moderate degenerative changes in the acromioclavicular joint. IMPRESSION: 1. Scattered degenerative changes in bilateral hands as detailed above. 2. Severe degenerative changes in the bilateral glenohumeral joints. 3. Bones are diffusely demineralized. Additional imaging with CT scan or MRI should be considered for better visualization as these modalities are much more sensitive for detection of fracture or other underlying pathology. Assessment & Plan Assessment & Plan (1) Osteoarthritis of shoulders, bilateral: Code(s): M19.011 - Primary osteoarthritis, right shoulder; M19.012 - Primary osteoarthritis, left shoulder Qualifiers: Osteoarthritis type: primary Qualified Code(s): M19.011 - Primary osteoarthritis, right shoulder; M19.012 - Primary osteoarthritis, left shoulder (2) Bilateral shoulder pain: Code(s): M25.511 - Pain in right shoulder; M25.512 - Pain in left shoulder Plan Patient is 3 weeks status post bilateral glenohumeral joint injection with ultrasound guidance with ongoing 45% pain relief. We also reviewed diagnostic nerve blocks for the suprascapular and axillary articular branches on both sides at the same time followed by potential bilate ral RFA one week apart if there's a successful response to the diagnostic blocks. Patient is not candidate for peripheral nerve stimulation due to pacemaker in place. Patient would like to continue monitor his symptoms and longevity of recent steroid injections at this time and will notify our office when his pain returns to baseline. Continue heat/ice therapy, Tylenol prn, tramadol (prescribed by PCP) and activity modifications. All questions and concerns have been answered and patient agreed with the plan. Follow up as needed. Coding Level of Care Code Est Pt Level 3 (31088) Diagnoses Primary osteoarthritis of both shoulders M19.011; M19.012 Osteoarthritis type: primary Bilateral shoulder pain M25.511; M25.512
[2023-09-21 13:56] VITALS: BP 152/67; PULSE 75; O2SAT 98; BMI 31.8
== END 2023-09-21 14:17 | disposition home or self-care (01) ==
PROVIDERS: PCP Internal Medicine; Visit Provider Nurse Practitioner Family
DX: M19.011 Primary osteoarthritis, right shoulder (principal); M19.012 Primary osteoarthritis, left shoulder; M25.511 Pain in right shoulder; M25.512 Pain in left shoulder
CPT/HCPCS: 99213

== ENCOUNTER → 2023-09-21 13:46 | Outpatient (BNVA) | payer OTHER, SELFPAY | PROVIDERS: PCP Internal Medicine; Visit Provider Nurse Practitioner Family | DX: M19.011 Primary osteoarthritis, right shoulder (principal); M19.012 Primary osteoarthritis, left shoulder; M25.511 Pain in right shoulder; M25.512 Pain in left shoulder; G89.29 Other chronic pain; Z79.01 Long term (current) use of anticoagulants | CPT/HCPCS: 99212 ==

== ENCOUNTER → 2023-10-08 23:59 | Outpatient (BNV) | payer OTHER, MEDICARE, SELFPAY ==
--- NOTE | 2023-10-19 10:21 | MHC.OFFVIS ---
Intake Visit Reasons: Remote device check- [facility] Allergies No Known Allergies [No Known Allergies*] Allergy (Verified 10/12/23 15:05) PENDING SALE TO [facility] Medical History CKD (chronic kidney disease) stage 4, GFR 15-29 ml/min HTN (hypertension) Dermatitis associated with moisture from stool incontinence Clostridioides difficile diarrhea Urinary retention with incomplete bladder emptying Pacemaker Pancytopenia Incomplete emptying of bladder due to benign prostatic hyperplasia Acute kidney injury superimposed on chronic kidney disease Fistula Paroxysmal A-fib Diastolic heart failure Pulmonary hypertension Depression, major Afib Bradycardia Scrotal edema Anasarca Cirrhosis Lymphedema Type 2 diabetes mellitus with hyperglycemia Osteoarthritis Peripheral neuropathy Obstructive sleep apnea BPH (benign prostatic hyperplasia) Venous stasis dermatitis Obesity (BMI 30-39.9) Hypercholesterolemia Peripheral vascular disease Pulmonary hypertension Essential thrombocytopenia Anemia COPD (chronic obstructive pulmonary disease) Diabetic retinopathy Chronic kidney disease Lumbar degenerative disc disease High cholesterol Edema Gout Surgical History Hx of cardiac pacemaker History of bowel diversion surgery History of gastric surgery H/O prior ablation treatment History of carpal tunnel release History of bilateral cataract extraction History of tonsillectomy Family History Father Prostate cancer CVD (cardiovascular disease) Mother Hemochromatosis Brother Motor vehicle accident Sister CAD (coronary artery disease) Maternal Grandfather Myocardial infarction Social History Household Members: Spouse Housing: House Do you presently have visiting nurse or other home services: Yes Alcohol intake: never Patient Tobacco Use Status: Former Tobacco user Tobacco use type: Cigarette e-Cigarette/Vaping Use: Former Use Second Hand Smoke Exposure: Yes Advance Directives Date on File: 11/06/22 service: No Current occupational status: retired Cognitive needs: Yes Hearing needs: Yes Vision needs: Yes Office Procedures Cardiac Device Check Cardiac Device Check Details: PPM Gupta Assurity MRI Good battery life. Multiple episodes of acute mode switching due to episodes of atrial fibrillation. [id number] Cardiac Device Interrogation, pacemaker Procedure code (CPT) selection complete Assessment & Plan Assessment & Plan (1) Pacemaker: Code(s): Z95.0 - Presence of cardiac pacemaker Category: Medical Plan Medications: Discontinued metoprolol tartrate Discontinued Reason: Doctor's Order 12.5 mg (1/2 x 25 mg) PO BID 90 days 90 tabs 1RF I10 - Essential (primary) hypertension Coding Level of Care Code Procedure Only Diagnoses Pacemaker Z95.0 CPT Codes Cardiac Device Check - Cardiac Device 12: [id number] Cardiac Device Interrogation, pacemaker ([id number])
== END ==
PROVIDERS: PCP Internal Medicine; Visit Provider Internal Medicine Cardiovascular Disease
DX: I48.91 Unspecified atrial fibrillation (principal); Z95.0 Presence of cardiac pacemaker
CPT/HCPCS: 93294

== ENCOUNTER 2023-10-12 15:03 | Outpatient (AMB) | payer OTHER, SELFPAY ==
[2023-10-12 15:04] VITALS: BP 110/68; PULSE 110; BMI 33.3
--- NOTE | 2023-10-12 15:04 | A.OFFPC_ITS ---
Vital Signs 10/12/23 15:04 Height 5 ft 11 in Weight 239 lb 0.4 oz BMI 33.3 BP 110/68 Blood Pressure Location Lt brachial Position Sitting Pulse 110 H Pulse Source Pulse Oximeter Oxygen Delivery Method Room Air Intake Visit Reasons: gerd, DM, PE Intake Note: Patient is here today for a physical. [employer] Consultant And Designer Required: No Allergies No Known Allergies [No Known Allergies*] Allergy (Verified 10/12/23 15:05) Tobacco use date assessed: 10/12/23 Fall risk assessment: No Falls in past year Last assessed Fall Risk: 10/12/23 Dental Screening Dental Screen Date: 10/12/23 Did you have a dental visit in the last 12 months?: Yes Did you have a dental problem in the last 6 months where you did not have access to dental care?: No Was dental information given to patient?: Patient has dentist HPI gerd, DM, PE HPI Details 68-year-old obese male with GERD hyperch olesterolemia end-stage renal disease chronic anemia recurrent major depression atrial fibrillation hypertension SLE and osteoarthritis coming in for follow-up. Last seen in June 2023. Patient's colonoscopy is up-to-date November 2022. With the bilateral shoulder pain patient was seen by the pain management and has had injections of the shoulder bilateral patient also has followed up with Rheumatology regarding the SLE patient's hydroxychloroquine was started as for the gout keeping well hydrated FOR[facility] Medical History CKD (chronic kidney disease) stage 4, GFR 15-29 ml/min HTN (hypertension) Dermatitis associated with moisture from stool incontinence Clostridioides difficile diarrhea Urinary retention with incomplete bladder emptying Pacemaker Pancytopenia Incomplete emptying of bladder due to benign prostatic hyperplasia Acute kidney injury superimposed on chronic kidney disease Fistula Paroxysmal A-fib Diastolic heart failure Pulmonary hypertension Depression, major Afib Bradycardia Scrotal edema Anasarca Cirrhosis Lymphedema Type 2 diabetes mellitus with hyperglycemia Osteoarthritis Peripheral neuropathy Obstructive sleep apnea BPH (benign prostatic hyperplasia) Venous stasis dermatitis Obesity (BMI 30-39.9) Hypercholesterolemia Peripheral vascular disease Pulmonary hypertension Essential thrombocytopenia Anemia COPD (chronic obstructive pulmonary disease) Diabetic retinopathy Chronic kidney disease Lumbar degenerative disc disease High cholesterol Edema Gout Surgical History Hx of cardiac pacemaker History of bowel diversion surgery History of gastric surgery H/O prior ablation treatment History of carpal tunnel release History of bilateral cataract extraction History of tonsillectomy Family History Father Prostate cancer CVD (cardiovascular disease) Mother Hemochromatosis Brother Motor vehicle accident Sister CAD (coronary artery disease) Maternal Grandfather Myocardial infarction Social History Household Members: Spouse Housing: House Do you presently have visiting nurse or other home services: Yes Alcohol intake: never Patient Tobacco Use Status: Former Tobacco user Tobacco use type: Cigarette e-Cigarette/Vaping Use: Former Use Second Hand Smoke Exposure: Yes Advance Directives Date on File: 11/06/22 service: No Current occupational status: retired Cognitive needs: Yes Hearing needs: Yes Vision needs: Yes Questionnaire PHQ-9 Over the last 2 weeks, how often have you been bothered by any of the following problems? 1. Little interest or pleasure in doing things: not at all 2. Feeling down, depressed, or hopeless: not at all 3. Trouble falling or staying asleep, or sleeping too much: not at all 4. Feeling tired or having little energy: not at all 5. Poor appetite or overeating: not at all 6. Feeling bad about yourself - or that you are a failure or have let yourself or your family down: not at all 7. Trouble concentrating on things, such as reading the newspaper or watching television: not at all 8. Moving or speaking so slowly that other people could have noticed. Or the opposite - being so fidgety or restless that you have been moving around a lot more than usual: not at all 9. Thoughts that you would be better off or of hurting yourself in some wa y: not at all Total score: 0 Depression Screening Interpretation: Negative Depression Screening Done: Yes Source: Developed by Drs. Milton Ferrer, Shanna Fischer, Marc Hunt and colleagues, with an educational kaur from [employer]. Thrive Questionnaire Date Thrive assessed: 07/13/23 I am a: Patient What is your living situation today?: I have a steady place to live Within the past 12 months, did the food you bought not last and you didn't have the money to get more?: Never true Within the past 12 months, did you worry whether your food would run out before you got money to buy more?: Never true Do you have trouble paying for medicines?: No Do you have trouble getting transportation to medical appointments?: No Do you have trouble paying your heating and electricity bill?: No Do you have trouble taking care of your child, family member or friend?: No Do you have trouble with day-to-day activities such as bathing, preparing meals, shopping, managing finances, etc.?: No Are you currently unemployed and looking for a job?: No Are you interested in more education?: No Please select the resources that you would like help with: None Currently or been in a relationship where the following occur: no concerns reported THRIVE Score: 0 AUDIT C Alcohol Use Questionnaire (AUDIT-C) 1. How often do you have a drink containing alcohol?: Never 3. How often do you have six or more drinks on one occasion?: Never Total Score: 0 RADHA-7 AMB Questionnaire RADHA-7 Date RADHA - 7 assessed: 07/13/23 Feeling nervous, anxious, or on edge: 0 = Not at all Not being able to stop or control worryin = Not at all Worrying too much about different things: 0 = Not at all Trouble relaxin = Not at all Being so restless that it is hard to sit still: 0 = Not at all Becoming easily annoyed or irritable: 0 = Not at all Feeling afraid as if something awful might happen: 0 = Not at all Total RADHA-7 score (0-4 normal; 5-9 mild; 10-14 moderate; 15-21 severe): 0 Source: Developed by Drs. Milton Ferrer, Shanna Fischer, Marc Hunt and colleagues, with an educational kaur from [employer]. RADHA-7 Assessment Billing RADHA-7 Assessment Tool: RADHA-7 Assessment 48119 Physical exam (Primary Care) Vital Signs: Last Vital Signs Pulse 110 H 10/12/23 15:04 BP 110/68 10/12/23 15:04 Oxygen Delivery Method Room Air 10/12/23 15:04 BMI result Body Mass Index 33.3 Tobacco/Smoking Status: Tobacco use Status Tobacco use date assessed 10/12/23 10/12/23 15:06 Patient Tobacco Use Status Former Tobacco user 10/12/23 15:06 Tobacco use type Cigarette 10/12/23 15:06 e-Cigarette/Vaping Use Former Use 10/12/23 15:06 PHQ-9: PHQ-9 Score PHQ-9: Total score 0 10/12/23 15:06 Depression Screening Interpretation: Negative Thrive Assessment: Date of Thrive Assessment Date Thrive assessed 07/13/23 10/12/23 15:06 Currently or been in a relationship where the following occur: no concerns reported Const General: alert; No acute distress Eyes Conjunctivae: conjunctivae normal Resp Auscultation: clear to auscultation bilaterally Cardio Rate: regular rate Rhythm: regular rhythm GI Inspection: Yes normal to inspection Extrem General: Yes normal to inspection and No edema Assessment and Plan Assessment & Plan (1) CKD (chronic kidney disease) stage 4, GFR 15-29 ml/min: Code(s): N18.4 - Chronic kidney disease, stage 4 (severe) Plan: Keep well hydrated, avoid NSAIDs and follow-up with Nephrology. portacath placed 09/25/2023 (2) SLE (systemic lupus erythematosus): Code(s): M32.9 - Systemic lupus erythematosus, unspecified Plan: Patient has followed up with Rheumatology and has been placed on hydroxychloroq uine (3) HTN (hypertension): Comment: May 2013 perfusion negative echo EF 60-65% Code(s): I10 - Essential (primary) hypertension Qualifiers: Hypertension type: essential hypertension Qualified Code(s): I10 - Essential (primary) hypertension Plan: Continue with blood pressure medication. Decrease salt intake and exercise (4) Afib: Code(s): I48.91 - Unspecified atrial fibrillation Plan: Continue with anticoagulation with Eliquis (5) Recurrent major depression: Comment: decline referral for counselling presently Code(s): F33.9 - Major depressive disorder, recurrent, unspecified Plan: Continue with present medication and declined counseling. (6) GERD (gastroesophageal reflux disease): Code(s): K21.9 - Gastro-esophageal reflux disease without esophagitis Plan: Avoid the foods that causes that usually spicy foods, tomato products, juices, coffee, soda and foods that your sensitive to. After eating do not lie down, allow 3-4 hours before in lie down. And keep the head of bed above 30 degrees to avoid the acid from going up. (7) Peripheral vascular disease: Code(s): I73.9 - Peripheral vascular disease, unspecified Plan: When sitting down elevate the legs, exercise, and support stockings (8) Hypercholesterolemia: Code(s): E78.00 - Pure hypercholesterolemia, unspecified Plan: Avoid fried foods, chicken skin, eggs, butter margarine, pastries and meat. Be it pork or beef they have a lot of cholesterol LDL goal of less than 100 and triglyceride of less than 150. (9) Tachycardia: Code(s): R00.0 - Tachycardia, unspecified Orders: Orders Complete Blood Count Auto Diff Today E78.00 - Pure hypercholesterolemia, unspecified Comprehensive Met. Panel Today E78.00 - Pure hypercholesterolemia, unspecified Lipid Panel Today E78.00 - Pure hypercholesterolemia, unspecified UA CC w/rflx Micro + Cult Today E78.00 - Pure hypercholesterolemia, unspecified, R30.0 - Dysuria Vitamin B12 and Folate Today E78.00 - Pure hypercholesterolemia, unspecified Prostate Specific Antigen Scr Today E78.00 - Pure hypercholesterolemia, unspecified UA w Microscopic Today R00.0 - Tachycardia, unspecified Thyroid Stimulating Hormone Today R00.0 - Tachycardia, unspecified Free T4 (Free Thyroxine) Today E78.00 - Pure hypercholesterolemia, unspecified Coding Level of Care Code Est Pt Level 4 (62082) Diagnoses CKD (chronic kidney disease) stage 4, GFR 15-29 ml/min N18.4 SLE (systemic lupus erythematosus) M32.9 Essential hypertension I10 Hypertension type: essential hypertension Afib I48.91 Recurrent major depression F33.9 GERD (gastroesophageal reflux disease) K21.9 Peripheral vascular disease I73.9 Hypercholesterolemia E78.00 Tachycardia R00.0 Additional Codes RADHA-7 Assessment Billing - RADHA-7 Assessment Tool: RADHA-7 Assessment [id number] ([id number])
== END 2023-10-12 15:34 | disposition home or self-care (01) ==
PROVIDERS: PCP Internal Medicine; Visit Provider Internal Medicine
DX: I12.9 Hypertensive chronic kidney disease with stage 1 through stage 4 chronic kidney disease, or unspecified chronic kidney disease (principal); N18.4 Chronic kidney disease, stage 4 (severe); M32.9 Systemic lupus erythematosus, unspecified; I48.91 Unspecified atrial fibrillation; I73.9 Peripheral vascular disease, unspecified; F33.9 Major depressive disorder, recurrent, unspecified; K21.9 Gastro-esophageal reflux disease without esophagitis; E78.00 Pure hypercholesterolemia, unspecified; R00.0 Tachycardia, unspecified
CPT/HCPCS: 99214

== ENCOUNTER 2023-12-29 10:27 | Outpatient (REF) | payer OTHER, MEDICARE, SELFPAY ==
[2023-12-29 10:40] LABS: MANUAL DIFF FLAG NO
[2023-12-29 11:04] LABS: Basophils Absolute Auto 0.1 X10*3/uL (0.0-0.2); Basophils Percent Auto 1.2 % (0-2); Hematocrit 36.7 % (42.0-52.0); Hemoglobin 12.4 g/dl (14.0-18.0); Lymphocytes Absolute Auto 0.8 X10*3/uL (1.2-4.9); Lymphocytes Percent Auto 18.1 % (20-40); Mean Corpuscular HGB Conc 33.8 g/dl (31.0-36.0); Mean Corpuscular Hemoglobin 34.5 pg (27.0-33.0); Mean Corpuscular Volume 102.2 fL (80.0-98.0); Mean Platelet Volume 9.8 fL (9.4-12.4); Monocytes Absolute Auto 0.5 X10*3/uL (0.1-1.2); Monocytes Percent Auto 11.8 % (2-11); Neutrophils Absolute Auto 2.9 x10*3/uL (2.0-8.3); Neutrophils Percent Auto 68.9 % (45-73); Platelet Count 112 X10*3/uL (160-400); Red Blood Count 3.59 X10*6/uL (4.60-5.80); Red Cell Distribution Width 15.4 % (11.0-16.0); White Blood Count 4.1 X10*3/uL (4.8-10.8)
[2023-12-29 11:43] LABS: Alanine Aminotransferase 21 U/L (0-40); Albumin Level 4.4 g/dL (3.5-5.0); Alkaline Phosphatase 132 U/L (39-117); Anion Gap 16 (12-20); Aspartate Amino Transferase 34 U/L (5-37); Blood Urea Nitrogen 21 mg/dL (9-16); Calcium 9.8 mg/dL (8.4-10.2); Carbon Dioxide 34 mmol/L (22-29); Chloride 94 mmol/L (96-108); Estimated Glomerular Filt Rate 14; Glucose Random 82 mg/dL (60-115); Potassium 3.4 mmol/L (3.3-5.1); Sodium 141 mmol/L (135-145); Total Protein 7.8 g/dL (6.5-8.0)
[2023-12-29 11:47] LABS: Erythrocyte Sedimentation Rate 31 MM/HR (0-15)
[2023-12-31 07:03] LABS: Anti DNA DS Antibody 1 IU/mL
[2023-12-31 10:59] LABS: Complement C3 128 mg/dL (82-185)
== END 2023-12-29 10:28 | disposition home or self-care (01) ==
LOC: HO.LAB 10:27
PROVIDERS: PCP Internal Medicine; Visit Provider Student in an Organized Health Care Education/Training Program
DX: M32.9 Systemic lupus erythematosus, unspecified (principal)
CPT/HCPCS: 36415; 80053; 85025; 85652; 86140; 86160; 86225

== ENCOUNTER 2024-01-04 11:13 | Outpatient (AMB) | payer OTHER, SELFPAY ==
[2024-01-04 11:17] VITALS: BP 120/62; PULSE 85; BMI 33.5
--- NOTE | 2024-01-04 11:17 | MHC.OFFVIS ---
Vital Signs 01/04/24 11:17 Height 5 ft 11 in Weight 240 lb 1.334 oz BMI 33.5 BP 120/62 Blood Pressure Location Lt brachial Position Sitting Pulse 85 Pulse Source Monitor Intake Visit Reasons: 5 th f/up Intake Note: 5 mth f/up with ekg/ pt state that he is doing great Oral Surgery Physician Required: No Accompanied by: Self / Same As Patient Allergies No Known Allergies [No Known Allergies*] Allergy (Verified 10/12/23 15:05) Medication List - Last Reconciled 01/04/24 by Danny Ron MD albuterol sulfate 90 mcg/actuation (ProAir HFA) 2 puffs inhalation Q6H PRN amlodipine 5 mg PO DAILY Anoro Ellipta 62.5-25 mcg/actuation (umeclidinium-vilanterol) 1 ea inhalation DAILY NS [APAP 5-15 cm H20 humidified AIR As directed] apixaban 2.5 mg PO BID blood sugar diagnostic (FreeStyle Lite Strips) As directed check the BS BID blood-glucose meter (FreeStyle Lite Meter kit) As directed compr.stocking,thigh,reg,x-lrg As directed 20-30 mm HG kylah.stocking,knee,reg,xlrg As directedcompression stockings bilateral adjustable lower extremity garments ergocalciferol (vitamin D2) 50 mcg PO DAILY ferrous sulfate 325 mg PO DAILY hydroxychloroquine 200 mg PO Q OTHER DAY [Juxta Lite Compression wraps - Adjustable -for chronic ulcers with open wounds bilat lower extremities As directed] ketoconazole 2% appl topical DAILY lancets (FreeStyle Lancets) As directed check BS BID metoprolol tartrate 25 mg PO BID midodrine 5 mg PO DAILY polyethylene glycol 3350 (Miralax) 17 grams PO DAILY PRN pravastatin 20 mg PO DAILY sevelamer carbonate mg PO tramadol 50 mg PO BEDTIME HPI Comments Details: 68-year-old gentleman who is here for follow-up. He was previously seeing Dr. Cuevas and Dr Varner at [facility]. He has background history of diabetes, obesity, obstructive sleep apnea, chronic kidney disease, peripheral vascular disease, COPD, gout, hypertension and lymphedema. He has background of junctional bradycardia and as per his report there were some discussions in the past about pacemaker placement but then it was decided not to place a pacemaker. Echocardiography showed normal biventricular function with D-shaped LV cavity pointing towards right ventricular pressure and volume overload. Echo also showed moderate to severe pulmonary hypertension he is a former smoker. Has been taking medications regularly. He was referred for pulmonology evaluation to see if he has hypoxic when he ambulates. This has shown that his saturations are normal when he walks. He has atrial fibrillation with slow ventricular response in low 40s. He has been asymptomatic and denies any chest discomfort, dizziness or syncope. He does look little in more edematous on follow-up. He is saying that he is taking the morning dose of Lasix but not taking the afternoon does regularly. He is supposed to be on 120 mg Lasix in the morning and 80 in the afternoon. Because of progressive kidney disease he had left arm AV fistula placed but since then he has swelling of the left hand and unable to use the left hand and unable to make a fist. He is saying he is going back for surgery where they are going to ligate the AV fistula and make a new 1 in the upper arm. He also had 1 episode of central chest tightness at rest which happen few days ago. He is saying it lasted for few minutes and then resolved. It has not recurred since then. He was referred for stress test but could not exercise signifcantly on treadmill and stress was very limited. 09/2022: He is returning about admission [place] [facility] [place] abdominal pain. He had bowel perforation and underwent surgery. His BP was low and his medications were held. He as finished rehab and came back home 2 days ago. He has not been taking the Lasix. He has edema. He has PETERSEN. 12/24/22: He returns for follow-up. He has lost significant weight. Since last visit, he has been started on hemodialysis. He also had admission with severe anemia and was transfused. He is here for follow-up with his . He is planning to undergo vascular surgery to have AV fistula formation on the left arm. He is significantly frail. He is walking with a walker. With ambulation inside the house he has no significant chest discomfort or shortness of breath. He is describing 1 episode of right-sided chest discomfort which lasted for 30 minutes at rest few days ago but it has not been a recurrent symptom for him. With ambulation he currently has no chest discomfort. 04/27/2023: He returns for follow up. He looks better than before. He is saying his appetite is improving. Does not look as frail as he was last time. He is denying shortness of breath. He does get off and on left-sided pressure-like feeling lasting for few seconds at rest. He is saying with activities he does not get any discomfort in his chest. Overall he is clinically stable. Blood pressure control is good. 08/10/2023:He returns for follow-up. He has been doing well. He has gained some weight. No chest discomfort shortness of breath. Compliant with hemodialysis. 01/04/24: He is here for follow-up. Has been doing well. No chest pain or shortness of breath. He is undergoing hemodialysis from right arm AV fistula on Thursday, and Thursday. [facility] Medical History CKD (chronic kidney disease) stage 4, GFR 15-29 ml/min HTN (hypertension) Dermatitis associated with moisture from stool incontinence Clostridioides difficile diarrhea Urinary retention with incomplete bladder emptying Pacemaker Pancytopenia Incomplete emptying of bladder due to benign prostatic hyperplasia Acute kidney injury superimposed on chronic kidney disease Fistula Paroxysmal A-fib Diastolic heart failure Pulmonary hypertension Depression, major Afib Bradycardia Scrotal edema Anasarca Cirrhosis Lymphedema Type 2 diabetes mellitus with hyperglycemia Osteoarthritis Peripheral neuropathy Obstructive sleep apnea BPH (benign prostatic hyperplasia) Venous stasis dermatitis Obesity (BMI 30-39.9) Hypercholesterolemia Peripheral vascular disease Pulmonary hypertension Essential thrombocytopenia Anemia COPD (chronic obstructive pulmonary disease) Diabetic retinopathy Chronic kidney disease Lumbar degenerative disc disease High cholesterol Edema Gout Surgical History Hx of cardiac pacemaker History of bowel diversion surgery History of gastric surgery H/O prior ablation treatment History of carpal tunnel release History of bilateral cataract extraction History of tonsillectomy Family History Father Prostate cancer CVD (cardiovascular disease) Mother Hemochromatosis Brother Motor vehicle accident Sister CAD (coronary artery disease) Maternal Grandfather Myocardial infarction Social History Household Members: Spouse Housing: House Do you presently have visiting nurse or other home services: Yes Alcohol intake: never Patient Tobacco Use Status: Former Tobacco user Tobacco use type: Cigarette e-Cigarette/Vaping Use: Former Use Second Hand Smoke Exposure: Yes Advance Directives Date on File: 11/06/22 service: No Current occupational status: retired Cognitive needs: Yes Hearing needs: Yes Vision needs: Yes Review of Systems Const Denies chills, Denies fatigue, Denies fever(s), Denies frequent falls, Denies weakness, Denies weight gain and Denies weight loss ENT Denies dizziness Card Denies chest pain, Denies leg edema, Denies lightheadedness, Denies palpitations, Denies dyspnea and Denies dyspnea on exertion Resp Denies cough, Denies dyspnea and Denies dyspnea on exertion GI Denies hematochezia Musc Denies abnormal gait, Denies muscle weakness, Denies numbness, Denies radiating pain into limb and Denies tingling Neuro Denies abnormal gait, Denies dizziness, Denies frequent falls, Denies numbness, Denies tingling and Denies weakness Endo Denies fatigue and Denies palpitations Physical Exam Vital Signs: Last Vital Signs Pulse 85 01/04/24 11:17 BP 120/62 01/04/24 11:17 BMI result Body Mass Index 33.5 GENERAL APPEARANCE: in no acute distress. SKIN: no suspicious lesions, warm and dry. HEART: no murmurs, regular rate and rhythm. LUNGS: Few crackles at bases. ABDOMEN: soft, nontender. EXTREMITIES: Chronic changes from lymphedema. Mild edema. Right upper extremity AV fistula. PERIPHERAL PULSES: equal. NEUROLOGIC: No gross deficits, AAO X 3 Assessment & Plan Assessment & Plan (1) HTN (hypertension): Code(s): I10 - Essential (primary) hypertension Category: Medical Qualifiers: Hypertension type: essential hypertension Qualified Code(s): I10 - Essential (primary) hypertension (2) Pacemaker: Code(s): Z95.0 - Presence of cardiac pacemaker Category: Medical Plan Pleasant 74-year-old gentleman who is here for follow-up. He is on hemodialysis Thursday, and Thursday. Blood pressure is well controlled. He is V paced more than 90% of time based on pacemaker interrogation. I will arrange echocardiogram to assess LV function because RV pacing at times can lead to LV dysfunction. Otherwise stable. On apixaban 2.5 mg twice a day for paroxysmal atrial fibrillation. Thank you for allowing me to participate in the care of your patient. Please feel free to contact me if you have any questions. Orders: Orders CA echo transthoracic complete Today Z95.0 - Presence of cardiac pacemaker Coding Level of Care Code Est Pt Level 4 (62598) Diagnoses Essential hypertension I10 Hypertension type: essential hypertension Pacemaker Z95.0
== END 2024-01-04 11:38 | disposition home or self-care (01) ==
PROVIDERS: PCP Internal Medicine; Visit Provider Internal Medicine Cardiovascular Disease
DX: I10 Essential (primary) hypertension (principal); Z95.0 Presence of cardiac pacemaker
CPT/HCPCS: 99214

== ENCOUNTER → 2024-01-04 11:13 | Outpatient (BNVA) | payer OTHER, SELFPAY | PROVIDERS: PCP Internal Medicine; Visit Provider Internal Medicine Cardiovascular Disease | DX: I10 Essential (primary) hypertension (principal); Z95.0 Presence of cardiac pacemaker | CPT/HCPCS: 99212 ==

== ENCOUNTER 2024-01-22 08:43 | Outpatient (AMB) | payer MEDICARE, SELFPAY ==
--- NOTE | 2024-01-22 08:45 | MHC.OFFVIS ---
Vital Signs 01/22/24 08:49 Height 5 ft 11 in Weight 234 lb 9.149 oz BMI 32.7 BP 116/62 Blood Pressure Location Lt brachial Position Sitting Pulse 75 Pulse Source Pulse Oximeter Pulse Oximetry (%) 98 Oxygen Delivery Method Room Air Intake Visit Reasons: SLE/OA/CM Intake Note: Patient presents for SLE/OA. Allergies No Known Allergies [No Known Allergies*] Allergy (Verified 01/22/24 08:49) Medication List - Last Reconciled 01/22/24 by Colton Reyna MD albuterol sulfate 90 mcg/actuation (ProAir HFA) 2 puffs inhalation Q6H PRN amlodipine 5 mg PO DAILY Anoro Ellipta 62.5-25 mcg/actuation (umeclidinium-vilanterol) 1 ea inhalation DAILY NS [APAP 5-15 cm H20 humidified AIR As directed] apixaban 2.5 mg PO BID blood sugar diagnostic (FreeStyle Lite Strips) As directed check the BS BID blood-glucose meter (FreeStyle Lite Meter kit) As directed compr.stocking,thigh,reg,x-lrg As directed 20-30 mm HG kylah.stocking,knee,reg,xlrg As directedcompression stockings bilateral adjustable lower extremity garments ergocalciferol (vitamin D2) 50 mcg PO DAILY ferrous sulfate 325 mg PO DAILY hydroxychloroquine 200 mg PO Q OTHER DAY [Juxta Lite Compression wraps - Adjustable -for chronic ulcers with open wounds bilat lower extremities As directed] ketoconazole 2% appl topical DAILY lancets (FreeStyle Lancets) As directed check BS BID metoprolol tartrate 25 mg PO BID midodrine 5 mg PO DAILY polyethylene glycol 3350 (Miralax) 17 grams PO DAILY PRN pravastatin 20 mg PO DAILY sevelamer carbonate mg PO tramadol 50 mg PO BEDTIME HPI Comments Details: 68-year-old male with SLE returns for follow-up. On hydroxychloroquine 200 mg every other day. Has not had any recurrence of pain and swelling of his hands, he continues to have pain and significantly limited range of motion of his shoulders. States that he has done PT in the past and it was not helpful and was quite painful INITIAL HISTORY: This is a 68-year-old male with a past medical history of SLE, gout who presents for follow-up. He was last seen by Dr. Birch 2 years ago. Patient was admitted to the hospital in July of 2022 and discharged in November of 2022. Patient had a GI bleed, he had other complications including acute on chronic CKD which turned into end-stage CKD, now he is on hemodialysis. He had a pacemaker placed. He also had multiple infections. He has lost 80 lb since then. Over the last 6-7 months patient has been having bilateral shoulder pain and stiffness. Gets intermittent ankle swelling. He has not been on the hydroxychloroquine for more than a year as he was not able to get any refills. He is not taking allopurinol but has not had any gout flares recently. He denies any skin rashes. [facility] Medical History CKD (chronic kidney disease) stage 4, GFR 15-29 ml/min HTN (hypertension) Dermatitis associated with moisture from stool incontinence Clostridioides difficile diarrhea Urinary retention with incomplete bladder emptying Pacemaker Pancytopenia Incomplete emptying of bladder due to benign prostatic hyperplasia Acute kidney injury superimposed on chronic kidney disease Fistula Paroxysmal A-fib Diastolic heart failure Pulmonary hypertension Depression, major Afib Bradycardia Scrotal edema Anasarca Cirrhosis Lymphedema Type 2 diabetes mellitus with hyperglycemia Osteoarthritis Peripheral neuropathy Obstructive sleep apnea BPH (benign prostatic hyperplasia) Venous stasis dermatitis Obesity (BMI 30-39.9) Hypercholesterolemia Peripheral vascular disease Pulmonary hypertension Essential thrombocytopenia Anemia COPD (chronic obstructive pulmonary disease) Diabetic retinopathy Chronic kidney disease Lumbar degenerative disc disease High cholesterol Edema Gout Surgical History Hx of cardiac pacemaker History of bowel diversion surgery History of gastric surgery H/O prior ablation treatment History of carpal tunnel release History of bilateral cataract extraction History of tonsillectomy Family History Father Prostate cancer CVD (cardiovascular disease) Mother Hemochromatosis Brother Motor vehicle accident Sister CAD (coronary artery disease) Maternal Grandfather Myocardial infarction Social History Household Members: Spouse Housing: House Do you presently have visiting nurse or other home services: Yes Alcohol intake: never Patient Tobacco Use Status: Former Tobacco user Tobacco use type: Cigarette e-Cigarette/Vaping Use: Former Use Second Hand Smoke Exposure: Yes Advance Directives Date on File: 11/06/22 service: No Current occupational status: retired Cognitive needs: Yes Hearing needs: Yes Vision needs: Yes Review of Systems [facility] [place] arthralgias, Reports limited range of motion and Reports stiffness Physical Exam Vital Signs: Last Vital Signs Pulse 75 01/22/24 08:49 BP 116/62 01/22/24 08:49 Pulse Ox 98 01/22/24 08:49 Oxygen Delivery Method Room Air 01/22/24 08:49 BMI result Body Mass Index 32.7 Const General: cooperative and poor hygiene Nutritional Appearance: overweight HEENT Other: Bilateral temporal wasting Resp Effort & Inspection: normal respiratory effort and able to speak in complete sentences Skin Other: Dry skin on both lower extremities Extrem Other: Osteoarthritic changes of both hands Mild flexure contracture of multiple PIPs No wrist swelling tenderness or pain with full range of motion No elbow swelling or tenderness or pain with range of motion Bilateral significantly limited abduction of both shoulders worse on the left Significant shoulder crepitus bilaterally Bilateral knee osteoarthritis, crepitus with knee flexion Normal nailfold capillaroscopy Results Reviewed Results Reviewed: [address] [address] XRay Report Signed Patient: Kael Meyer MR#: [id number] : 1955 Acct:[id number] Age/Sex: 68 / M ADM Date: 03/03/23 Loc: HO.XRAY Attending Dr: Colton Reyna MD Ordering Physician: Colton Reyna MD Date of Service: 03/03/23 Procedure(s): XR shoulder RT min 2V Accession Number(s): [id number] cc: Steve Nguyen MD; Colton Reyna MD~ EXAMINATION: XR WRIST, BILATERAL XR HAND, BILATERAL XR SHOULDER, BILATERAL CLINICAL INFORMATION: Any signs of inflammatory arthritis? Pain. COMPARISON: Right hand 10/24/2022 TECHNIQUE: 4 views of each hand. 4 views of each shoulder.. FINDINGS: RIGHT WRIST/HAND: Vascular calcifications. Bones are diffusely demineralized. Moderate degenerative changes in the 1st carpometacarpal joint with joint space narrowing and hypertrophic change. Mild degenerative changes in scattered interphalangeal joints, most notable in the DIP joints. Suggestion of periarticular erosive changes most notable at the distal aspect of the 2nd proximal phalange. A 6 mm cystic lucency at the distal aspect of the 2nd proximal phalanx. LEFT WRIST/HAND: Vascular calcifications. Bones are diffusely demineralized. Moderate degenerative changes in the 1st carpometacarpal joint with joint space narrowing and hypertrophic change. Mild degenerative changes in scattered interphalangeal joints. Periarticular erosions most notable at the PIP joint of the 2nd digit. RIGHT SHOULDER: Bones are diffusely demineralized. Catheter partially visualized overlying the mediastinum. Severe degenerative changes in the glenohumeral joint with loss of the joint space, hypertrophic change and periarticular lucencies. Scattered soft tissue calcifications may be vascular. Moderate degenerative changes in the acromioclavicular joint. LEFT SHOULDER: Bones are diffusely demineralized. Pacer overlies the upper left thorax. Severe degenerative changes in the glenohumeral joint with loss of the joint space, hypertrophic change and periarticular lucencies. Scattered soft tissue calcifications may be vascular. Moderate degenerative changes in the acromioclavicular joint. XR/XR shoulder RT min 2V IMPRESSION: 1. Scattered degenerative changes in bilateral hands as detailed above. 2. Severe degenerative changes in the bilateral glenohumeral joints. 3. Bones are diffusely demineralized Assessment & Plan Assessment & Plan (1) SLE (systemic lupus erythematosus related syndrome): Code(s): M32.9 - Systemic lupus erythematosus, unspecified Category: Medical Plan: This is a 68-year-old male previously diagnosed with SLE based on positive MARISEL 1-320 homogeneous, low titer positive DYNAMO REPAIRER antibody, leukopenia, thrombocytopenia, low complements and positive dsDNA. When I initially evaluated him 02/2023 he had bilateral hand synovitis which resolved with prednisone taper. Hydroxychloroquine was restarted. This has not recurred I do not see any features of active SLE upon evaluation today. Continue with hydroxychloroquine 200 mg every other day Labs before next visit in 6 months (2) Gout: Code(s): M10.9 - Gout, unspecified Category: Medical Qualifiers: Gout site: unspecified site Gout etiology: idiopathic Chronicity: chronic Presence of tophus: without tophus Qualified Code(s): M1A.00X0 - Idiopathic chronic gout, unspecified site, without tophus (tophi) Plan: Has not been on allopurinol for a long period of time, has not had any gout flares recently. He is on dialysis currently (3) Long-term use of hydroxychloroquine: Code(s): Z79.899 - Other jail (current) drug therapy Category: Medical Plan: Discussed risk of retinopathy associated with hydroxychloroquine. follow-up regularly with director patient accounting (4) Osteoarthritis of shoulders, bilateral: Code(s): M19.011 - Primary osteoarthritis, right shoulder; M19.012 - Primary osteoarthritis, left shoulder Category: Medical Qualifiers: Osteoarthritis type: primary Qualified Code(s): M19.011 - Primary osteoarthritis, right shoulder; M19.012 - Primary osteoarthritis, left shoulder Plan: Bilateral severe glenohumeral osteoarthritis. He was evaluated by Orthopedics and deemed not a surgical candidate, he had ultrasound-guided shoulder injections which provided short-lived relief, did PT and did not find it helpful and was quite painful for him. Advised patient that he might consider going back to pain management to consider neuromodulation Plan I spent 25 minutes reviewing patient's chart, evaluating patient, ordering diagnostic workup, counseling patient and documenting in the chart Orders: Orders Complement C4 6 Months M32.9 - Systemic lupus erythematosus, unspecified Erythrocyte Sedimentation Rate 6 Months M32.9 - Systemic lupus erythematosus, unspecified C Reactive Protein 6 Months M32.9 - Systemic lupus erythematosus, unspecified Anti DNA DS Antibody 6 Months M32.9 - Systemic lupus erythematosus, unspecified Complement C3 6 Months M32.9 - Systemic lupus erythematosus, unspecified Complete Blood Count Auto Diff 6 Months M32.9 - Systemic lupus erythematosus, unspecified Comprehensive Met. Panel 6 Months M32.9 - Systemic lupus erythematosus, unspecified Coding Level of Care Code Est Pt Level 4 (78838) Diagnoses SLE (systemic lupus erythematosus related syndrome) M32.9 Idiopathic chronic gout without tophus, unspecified site M1A.00X0 Gout site: unspecified site Gout etiology: idiopathic Chronicity: chronic Presence of tophus: without tophus Long-term use of hydroxychloroquine Z79.899 Primary osteoarthritis of both shoulders M19.011; M19.012 Osteoarthritis type: primary
[2024-01-22 08:49] VITALS: BP 116/62; PULSE 75; O2SAT 98; BMI 32.7
== END 2024-01-22 09:44 | disposition home or self-care (01) ==
PROVIDERS: PCP Internal Medicine; Visit Provider Student in an Organized Health Care Education/Training Program
DX: M32.9 Systemic lupus erythematosus, unspecified (principal); M1A.00X0 Idiopathic chronic gout, unspecified site, without tophus (tophi); Z79.899 Other long term (current) drug therapy; M19.011 Primary osteoarthritis, right shoulder; M19.012 Primary osteoarthritis, left shoulder
CPT/HCPCS: 99214

== ENCOUNTER 2024-01-22 08:43 | Outpatient (REF) | payer MEDICARE, SELFPAY ==
[2024-01-22 09:39] LABS: MANUAL DIFF FLAG NO
[2024-01-22 10:22] LABS: Basophils Absolute Auto 0.1 X10*3/uL (0.0-0.2); Basophils Percent Auto 1.2 % (0-2); Eosinophils Percent Auto 0.7 % (0-4); Hematocrit 33.4 % (42.0-52.0); Hemoglobin 11.1 g/dl (14.0-18.0); Imm Gran Abs Auto 0.01 X10*3/uL (0.00-0.03); Imm Gran Pct Auto 0.2 % (0.0-0.4); Lymphocytes Absolute Auto 0.8 X10*3/uL (1.2-4.9); Lymphocytes Percent Auto 18.2 % (20-40); Mean Corpuscular HGB Conc 33.2 g/dl (31.0-36.0); Mean Corpuscular Volume 102.5 fL (80.0-98.0); Mean Platelet Volume 10.1 fL (9.4-12.4); Monocytes Absolute Auto 0.5 X10*3/uL (0.1-1.2); Monocytes Percent Auto 10.8 % (2-11); Neutrophils Absolute Auto 2.9 x10*3/uL (2.0-8.3); Neutrophils Percent Auto 68.9 % (45-73); Platelet Count 106 X10*3/uL (160-400); Red Blood Count 3.26 X10*6/uL (4.60-5.80); White Blood Count 4.2 X10*3/uL (4.8-10.8)
[2024-01-22 11:25] LABS: Alanine Aminotransferase 16 U/L (0-40); Albumin Level 4.1 g/dL (3.5-5.0); Alkaline Phosphatase 117 U/L (39-117); Anion Gap 19 (12-20); Aspartate Amino Transferase 22 U/L (5-37); Blood Urea Nitrogen 28 mg/dL (9-16); Calcium 9.6 mg/dL (8.4-10.2); Carbon Dioxide 32 mmol/L (22-29); Chloride 93 mmol/L (96-108); Cholesterol 117 mg/dL (<200); Estimated Glomerular Filt Rate 11; Glucose Random 82 mg/dL (60-115); HDL Cholesterol 39 mg/dL (>40); LDL Cholesterol Calculated 64 mg/dL (<100); Potassium 3.6 mmol/L (3.3-5.1); Sodium 140 mmol/L (135-145); Total Protein 7.1 g/dL (6.5-8.0); Triglycerides 74 mg/dL (<150)
[2024-01-22 11:29] LABS: Free T4 (Free Thyroxine) 1.21 ng/dL (0.71-1.85); Thyroid Stimulating Hormone 0.84 uIU/mL (0.32-4.0)
[2024-01-22 11:41] LABS: Prostate Specific Antigen Scr 0.89 ng/mL (<0.05-4.0); Vitamin B12 693 pg/mL (200-900)
[2024-01-25 21:24] LABS: Gliadin Deamidated IgA Ab 93.8 U/mL; Gliadin Deamidated IgG Ab 5.3 U/mL; Transglutaminase Ab IgG <1.0 U/mL; Transglutaminase IgA >250.0 U/mL
== END 2024-01-22 08:44 | disposition home or self-care (01) ==
LOC: HO.LAB 08:43
PROVIDERS: Internal Medicine Gastroenterology; Absent Provider Internal Medicine; PCP Internal Medicine; Visit Provider Student in an Organized Health Care Education/Training Program
DX: D64.9 Anemia, unspecified (principal); R10.33 Periumbilical pain; G89.29 Other chronic pain; E78.00 Pure hypercholesterolemia, unspecified; R00.0 Tachycardia, unspecified; K21.9 Gastro-esophageal reflux disease without esophagitis; Z12.5 Encounter for screening for malignant neoplasm of prostate; M32.9 Systemic lupus erythematosus, unspecified; M10.9 Gout, unspecified; Z79.899 Other long term (current) drug therapy; M19.011 Primary osteoarthritis, right shoulder
CPT/HCPCS: 36415; 80053; 80061; 82607; 82746; 84153; 84439; 84443; 85025; 86258; 86364; 99212

== ENCOUNTER → 2024-01-27 08:41 | Outpatient (REF) | payer MEDICARE, SELFPAY ==
--- NOTE | 2024-01-27 08:44 | CA_ITS ---
Transthoracic Echocardiogram Patient (Last, First, Middle): Kael Meyer J Gender: Male Date of : 1955 Age: 68 Procedure Date: 01/27/2024 Procedure Type: Transthoracic Echocardiogram Location: OP Height: 180.34 cm Weight: 106.6 kg BSA: 2.26 m2 Heart Rate: bpm BP: 117 / 60 mmHg Catalyst Operator Gasoline: GABBY Referring MD: Danny Ron MD Director Of Events: Danny Ron MD Symptoms: Z95.0 - Presence of cardiac pacemaker Study Quality: Fair, contrast Conclusions: - Normal left ventricular cavity size. There is normal left ventricular wall thickness. The left ventricular systolic function is severely decreased. The visually estimated ejection fraction is between 20-25%. - There is paradoxical septal motion consistent with a right ventricular pacemaker. - The basal inferior and mid inferior segments are akinetic. - There is mildly decreased right ventricular systolic function. - Significantly elevated right atrial pressure. - Moderate pulmonary hypertension is present. Findings Procedure Information Contrast agent, definity, is being given per protocol without apparent complications. Left Ventricle Normal left ventricular cavity size. There is normal left ventricular wall thickness. The left ventricular systolic function is severely decreased. The visually estimated ejection fraction is between 20-25%. There is evidence of regional wall motion abnormalities. There is paradoxical septal motion consistent with a right ventricular pacemaker. Diastolic function is indeterminate on the basis of available data. Wall Motion Rest Echo Findings The basal inferior and mid inferior segments are akinetic. Right Ventricle Normal right ventricular cavity size. There is mildly decreased right ventricular systolic function. There is a pacemaker wire seen in the right ventricle. Atria The left atrium is severely dilated. The right atrium is severely dilated. Aortic Valve There is mild calcification of the aortic valve. There is no aortic valve stenosis. There is no aortic valve regurgitation. Mitral Valve There is severe mitral annular calcification. There is trace mitral valve regurgitation. There is no mitral valve stenosis. Pulmonic Valve The pulmonic valve is likely normal. Tricuspid Valve Normal tricuspid valve structure. There is mild tricuspid valve regurgitation. The right ventricular systolic pressure is 54 mmHg. Significantly elevated right atrial pressure. Moderate pulmonary hypertension is present. Great Vessels All visible segments of the aorta are normal in size. The visualized portions of the pulmonary artery and branches are normal. Venous The inferior vena cava is dilated and collapses less than 50% with inspiration. Pericardium/Pleural There is no evidence of pericardial effusion. Prior Study Comparison Changes noted compared to prior study dated: 09/25/2022. EF severely reduced. Measurements 2D Linear Measurements IVSd: 0.97 0.6-0.9/0.6-1.0 cm LVIDd: 5.53 3.9-5.3/4.2-5.9 cm LVIDd Index: 2.45 2.4-3.2/2.2-3.1 cm/m2 LVIDs: 4.78 2.0-3.6 cm LVPWd: 1.14 0.7-1.1 cm LA Diam: 4.50 2.7-3.8/3.0-4.0 cm LAIDs Index: 1.99 1.5-2.3 cm/m2 LV Mass: 287.54 67-162/88-224 g LV Mass Index: 127.23 43-95/49-115 g/m2 LVOT Diam: 2.30 3.0+(-)1.3 cm 2D Systolic Function EF 4C: 24.60 >55% EF 2C: 30.10 >55% EF BiP: 26.10 >55% Mitral Valve MV Pk E: 1.27 MV Decel Time: 171.00 E'Lateral: 10.40 E'Medial: 2.09 E/E' Med: 60.80 E/E' Lat: 12.20 PHT: 50.00 MVA PHT: 4.40 Decel Monroe: 7.53 Aortic Valve AoV Pk Toribio: 1.35 AoV Mn Toribio: 1.06 AoV VTI: 0.30 AoV Pk Grad: 7.00 Aov Mn Grad: 5.00 KARI Cont.VTI: 2.90 LVOT LVOT Pk Toribio: 0.94 LVOT Mn Toribio: 0.58 LVOT VTI: 0.21 LVOT Pk Grad: 4.00 LVOT Mn Grad: 2.00 LVOT Diam: 2.30 LVOT Area: 4.15 Diastolic Function MV Pk E: 1.27 E'Medial: 2.09 E/E' Med: 60.80 E' Laterial: 10.40 E/E' Lat: 12.20 Right Ventricle TAPSE (mm): 19.70 TVS' Toribio: 7.31 Tricuspid Valve TR Pk Toribio: 3.14 TR Pk Grad: 39.00 RA Press: 15.00 RVSP: 54.00 Great Vessels Aorta Sinus of Valsalva: 3.46 2.0-3.[address] [place]: 2.13 1.7-3.4 cm Ao Asc: 3.40 2.1-3.4 cm Updated in Other Vendor System with Status of Final Danny Ron MD electronically signed on 01/27/2024 8:52:29 PM with status of Final
== END ==
LOC: HO.CARD 08:41
PROVIDERS: PCP Internal Medicine; Visit Provider Internal Medicine Cardiovascular Disease
DX: Z95.0 Presence of cardiac pacemaker (principal)
CPT/HCPCS: 93306; Q9957

== ENCOUNTER → 2024-01-27 08:44 | Outpatient (BNV) | payer MEDICARE, SELFPAY | PROVIDERS: PCP Internal Medicine; Visit Provider Internal Medicine Cardiovascular Disease | DX: I34.81 Nonrheumatic mitral (valve) annulus calcification (principal); I36.1 Nonrheumatic tricuspid (valve) insufficiency; Z95.0 Presence of cardiac pacemaker; I27.20 Pulmonary hypertension, unspecified | CPT/HCPCS: 93306 ==

== ENCOUNTER 2024-01-29 13:42 | Outpatient (AMB) | payer OTHER, SELFPAY ==
[2024-01-29 13:47] VITALS: BP 112/70; PULSE 114; O2SAT 97; BMI 32.2
--- NOTE | 2024-01-29 13:47 | MHC.PC.OV ---
Vital Signs 01/29/24 13:47 Height 5 ft 11 in Weight 231 lb BMI 32.2 BP 112/70 Blood Pressure Location Lt brachial Position Sitting Pulse 114 H Pulse Source Pulse Oximeter Pulse Oximetry (%) 97 Oxygen Delivery Method Room Air Intake Visit Reasons: SLE, hypercholesterolemia Order Make Up Clerk Required: No Allergies No Known Allergies [No Known Allergies*] Allergy (Verified 01/29/24 13:47) Tobacco use date assessed: 10/12/23 Fall risk assessment: No Falls in past year Last assessed Fall Risk: 01/29/24 Dental Screening Dental Screen Date: 10/12/23 HPI SLE, hypercholesterolemia HPI Details 69-year-old obese male with multiple medical problems systemic lupus erythematosus chronic kidney disease stage 4 hypertension atrial fibrillation depression GERD hypercholesterolemia peripheral vascular disease last seen in September. Patient's colonoscopy is up-to-date November 2022. Patient had an Ophthalmology consult which discussed about diabetes. Patient also recently had an echocardiogram. 01/2024 Normal left ventricular cavity size. There is normal left ventricular wall thickness. The left ventricular systolic function is severely decreased. The visually estimated ejection fraction is between 20-25%. - There is paradoxical septal motion consistent with a right ventricular pacemaker. - The basal inferior and mid inferior segments are akinetic. - There is mildly decreased right ventricular systolic function. - Significantly elevated right atrial pressure. - Moderate pulmonary hypertension is present. Review of the notes has been follow-up with Rheumatology for the SLE has had x-rays of the hands shoulders showing severe degenerative changes shoulders. No active SLE features on hydroxychloroquine 200 mg once a day. Patient did follow-up with cardiology January 03.. Patient also has the right armAV fistula for dialysis Tuesdays and Saturdays patient is on anticoagulation with apixaban 2.5 mg twice a day received notes from October 29 hospitalization for AV fistula. For AV fistula infection. [facility] Medical History (Updated 01/29/24 @ 14:12 by Steve Nguyen MD) Obstructive sleep apnea CKD (chronic kidney disease) stage 4, GFR 15-29 ml/min HTN (hypertension) Dermatitis associated with moisture from stool incontinence Clostridioides difficile diarrhea Urinary retention with incomplete bladder emptying Pacemaker Pancytopenia Incomplete emptying of bladder due to benign prostatic hyperplasia Acute kidney injury superimposed on chronic kidney disease Fistula Paroxysmal A-fib Diastolic heart failure Pulmonary hypertension Depression, major Afib Bradycardia Scrotal edema Anasarca Cirrhosis Lymphedema Type 2 diabetes mellitus with hyperglycemia Osteoarthritis Peripheral neuropathy BPH (benign prostatic hyperplasia) Venous stasis dermatitis Obesity (BMI 30-39.9) Hypercholesterolemia Peripheral vascular disease Pulmonary hypertension Essential thrombocytopenia Anemia COPD (chronic obstructive pulmonary disease) Diabetic retinopathy Chronic kidney disease Lumbar degenerative disc disease High cholesterol Edema Gout Surgical History Hx of cardiac pacemaker History of bowel diversion surgery History of gastric surgery H/O prior ablation treatment History of carpal tunnel release History of bilateral cataract extraction History of tonsillectomy Family History Father Prostate cancer CVD (cardiovascular disease) Mother Hemochromatosis Brother Motor vehicle accident Sister CAD (coronary artery disease) Maternal Grandfather Myocardial infarction Social History Household Members: Spouse Housing: House Do you presently have visiting nurse or other home services: Yes Alcohol intake: never Patient Tobacco Use Status: Former Tobacco user Tobacco use type: Cigarette e-Cigarette/Vaping Use: Former Use Second Hand Smoke Exposure: Yes Advance Directives Date on File: 11/06/22 service: No Current occupational status: retired Cognitive needs: Yes Hearing needs: Yes Vision needs: Yes Questionnaire PHQ-9 Over the last 2 weeks, how often have you been bothered by any of the following problems? 1. Little interest or pleasure in doing things: not at all 2. Feeling down, depressed, or hopeless: not at all 3. Trouble falling or staying asleep, or sleeping too much: not at all 4. Feeling tired or having little energy: not at all 5. Poor appetite or overeating: not at all 6. Feeling bad about yourself - or that you are a failure or have let yourself or your family down: not at all 7. Trouble concentrating on things, such as reading the newspaper or watching television: not at all 8. Moving or speaking so slowly that other people could have noticed. Or the opposite - being so fidgety or restless that you have been moving around a lot more than usual: not at all 9. Thoughts that you would be better off or of hurting yourself in some way: not at all Total score: 0 Depression Screening Interpretation: Negative Depression Screening Done: Yes Source: Developed by Drs. Milton Ferrer, Shanna Fischer, Marc Hunt and colleagues, with an educational kaur from [employer]. Thrive Questionnaire Date Thrive assessed: 07/13/23 I am a: Patient What is your living situation today?: I have a steady place to live Within the past 12 months, did the food you bought not last and you didn't have the money to get more?: Never true Within the past 12 months, did you worry whether your food would run out before you got money to buy more?: Never true Do you have trouble paying for medicines?: No Do you have trouble getting transportation to medical appointments?: No Do you have trouble paying your heating and electricity bill?: No Do you have trouble taking care of your child, family member or friend?: No Do you have trouble with day-to-day activities such as bathing, preparing meals, shopping, managing finances, etc.?: No Are you currently unemployed and looking for a job?: No Are you interested in more education?: No Please select the resources that you would like help with: None THRIVE Score: 0 AUDIT C Alcohol Use Questionnaire (AUDIT-C) 1. How often do you have a drink containing alcohol?: Never 3. How often do you have six or more drinks on one occasion?: Never Total Score: 0 RADHA-7 AMB Questionnaire RADHA-7 Date RADHA - 7 assessed: 07/13/23 Feeling nervous, anxious, or on edge: 0 = Not at all Not being able to stop or control worryin = Not at all Worrying too much about different things: 0 = Not at all Trouble relaxin = Not at all Being so restless that it is hard to sit still: 0 = Not at all Becoming easily annoyed or irritable: 0 = Not at all Feeling afraid as if something awful might happen: 0 = Not at all Total RADHA-7 score (0-4 normal; 5-9 mild; 10-14 moderate; 15-21 severe): 0 Source: Developed by Drs. Milton Ferrer, Marc Butler and colleagues, with an educational kaur from [employer]. RADHA-7 Assessment Billing RADHA-7 Assessment Tool: RADHA-7 Assessment 17355 Physical exam (Primary Care) Vital Signs: Last Vital Signs Pulse 114 H 01/29/24 13:47 BP 112/70 01/29/24 13:47 Pulse Ox 97 01/29/24 13:47 Oxygen Delivery Method Room Air 01/29/24 13:47 BMI result Body Mass Index 32.2 Tobacco/Smoking Status: Tobacco use Status Tobacco use date assessed 10/12/23 01/29/24 13:48 Patient Tobacco Use Status Former Tobacco user 01/29/24 13:48 Tobacco use type Cigarette 01/29/24 13:48 e-Cigarette/Vaping Use Former Use 01/29/24 13:48 PHQ-9: PHQ-9 Score PHQ-9: Total score 0 01/29/24 13:54 Depression Screening Interpretation: Negative Thrive Assessment: Date of Thrive Assessment Date Thrive assessed 07/13/23 01/29/24 13:48 Const General: alert; No acute distress Eyes Conjunctivae: conjunctivae normal Resp Auscultation: clear to auscultation bilaterally Cardio Rate: regular rate Rhythm: regular rhythm GI Inspection: Yes normal to inspection Extrem General: Yes normal to inspection and No edema Assessment and Plan Assessment & Plan (1) SLE (systemic lupus erythematosus): Code(s): M32.9 - Systemic lupus erythematosus, unspecified Plan: Patient is being followed up by Rheumatology and SLE on hydroxychloroquine and stable continuing to see Ophthalmology also. (2) HTN (hypertension): Code(s): I10 - Essential (primary) hypertension Qualifiers: Hypertension type: essential hypertension Qualified Code(s): I10 - Essential (primary) hypertension Plan: Continue with blood pressure medication. Decrease salt intake and exercise on amlodipine 5 mg once a day metoprolol 25 mg twice a day (3) Afib: Code(s): I48.91 - Unspecified atrial fibrillation Plan: Continue with anticoagulation with apixaban (4) ESRD (end stage renal disease): Code(s): N18.6 - End stage renal disease Plan: Continuing with hemodialysis Tuesdays and Saturdays. (5) Recurrent major depression: Comment: decline referral for counselling presently Code(s): F33.9 - Major depressive disorder, recurrent, unspecified Plan: Stable (6) GERD (gastroesophageal reflux disease): Code(s): K21.9 - Gastro-esophageal reflux disease without esophagitis Plan: Avoid the foods that causes that usually spicy foods, tomato products, juices, coffee, soda and foods that your sensitive to. After eating do not lie down, allow 3-4 hours before in lie down. And keep the head of bed above 30 degrees to avoid the acid from going up. (7) Hypercholesterolemia: Code(s): E78.00 - Pure hypercholesterolemia, unspecified Plan: Avoid fried foods, chicken skin, eggs, butter margarine, pastries and meat. Be it pork or beef they have a lot of cholesterol LDL goal of less than 70 and triglyceride of less than 150. On pravastatin 20 mg once a day (8) Peripheral vascular disease: Code(s): I73.9 - Peripheral vascular disease, unspecified Plan: When sitting down elevate the legs, exercise, and support stockings (9) Obstructive sleep apnea: Comment: May 2021 decline /CPAP Code(s): G47.33 - Obstructive sleep apnea (adult) (pediatric) Plan: has not been using the CPAP. (10) Anemia: Code(s): D64.9 - Anemia, unspecified Qualifiers: Anemia type: iron deficiency Iron deficiency anemia type: chronic blood loss Qualified Code(s): D50.0 - Iron deficiency anemia secondary to blood loss (chronic) Coding Level of Care Code Est Pt Level 4 (29437) Complex EM visit Add On G2211 Diagnoses SLE (systemic lupus erythematosus) M32.9 Essential hypertension I10 Hypertension type: essential hypertension Afib I48.91 ESRD (end stage renal disease) N18.6 Recurrent major depression F33.9 GERD (gastroesophageal reflux disease) K21.9 Hypercholesterolemia E78.00 Peripheral vascular disease I73.9 Obstructive sleep apnea G47.33 Iron deficiency anemia due to chronic blood loss D50.0 Anemia type: iron deficiency Iron deficiency anemia type: chronic blood loss Additional Codes RADHA-7 Assessment Billing - RADHA-7 Assessment Tool: RADHA-7 Assessment [id number] ([id number])
== END 2024-01-29 14:22 | disposition home or self-care (01) ==
PROVIDERS: PCP Internal Medicine; Visit Provider Internal Medicine
DX: M32.9 Systemic lupus erythematosus, unspecified (principal); I12.0 Hypertensive chronic kidney disease with stage 5 chronic kidney disease or end stage renal disease; I48.91 Unspecified atrial fibrillation; N18.6 End stage renal disease; F33.9 Major depressive disorder, recurrent, unspecified; K21.9 Gastro-esophageal reflux disease without esophagitis; E78.00 Pure hypercholesterolemia, unspecified; I73.9 Peripheral vascular disease, unspecified; G47.33 Obstructive sleep apnea (adult) (pediatric); D50.0 Iron deficiency anemia secondary to blood loss (chronic)
CPT/HCPCS: 99214; G2211

== ENCOUNTER 2024-02-03 13:41 | Outpatient (AMB) | payer MEDICARE, SELFPAY ==
[2024-02-03 13:48] VITALS: BP 130/64; PULSE 68; BMI 32.7
--- NOTE | 2024-02-03 13:48 | MHC.OFFVIS ---
Vital Signs 02/03/24 13:48 Height 5 ft 11 in Weight 234 lb 9.149 oz BMI 32.7 BP 130/64 Blood Pressure Location Lt brachial Position Sitting Pulse 68 Pulse Source Pulse Oximeter Intake Visit Reasons: f/up-per KM Draw Frame Tender Required: No Accompanied by: Self / Same As Patient Allergies No Known Allergies [No Known Allergies*] Allergy (Verified 01/29/24 13:47) Medication List - Last Reconciled 02/03/24 by Danny Ron MD albuterol sulfate 90 mcg/actuation (ProAir HFA) 2 puffs inhalation Q6H PRN amlodipine 5 mg PO DAILY Anoro Ellipta 62.5-25 mcg/actuation (umeclidinium-vilanterol) 1 ea inhalation DAILY NS [APAP 5-15 cm H20 humidified AIR As directed] apixaban 2.5 mg PO BID blood sugar diagnostic (FreeStyle Lite Strips) As directed check the BS BID blood-glucose meter (FreeStyle Lite Meter kit) As directed compr.stocking,thigh,reg,x-lrg As directed 20-30 mm HG kylah.stocking,knee,reg,xlrg As directedcompression stockings bilateral adjustable lower extremity garments ergocalciferol (vitamin D2) 50 mcg PO DAILY ferrous sulfate 325 mg PO DAILY hydroxychloroquine 200 mg PO Q OTHER DAY [Juxta Lite Compression wraps - Adjustable -for chronic ulcers with open wounds bilat lower extremities As directed] ketoconazole 2% appl topical DAILY lancets (FreeStyle Lancets) As directed check BS BID metoprolol tartrate 25 mg PO BID midodrine 5 mg PO DAILY polyethylene glycol 3350 (Miralax) 17 grams PO DAILY PRN pravastatin 20 mg PO DAILY sevelamer carbonate mg PO tramadol 50 mg PO BEDTIME HPI Comments Details: 68-year-old gentleman who is here for follow-up. He was previously seeing Dr. Cuevas and Dr Varner at [facility]. He has background history of diabetes, obesity, obstructive sleep apnea, chronic kidney disease, peripheral vascular disease, COPD, gout, hypertension and lymphedema. He has background of junctional bradycardia and as per his report there were some discussions in the past about pacemaker placement but then it was decided not to place a pacemaker. Echocardiography showed normal biventricular function with D-shaped LV cavity pointing towards right ventricular pressure and volume overload. Echo also showed moderate to severe pulmonary hypertension he is a former smoker. Has been taking medications regularly. He was referred for pulmonology evaluation to see if he has hypoxic when he ambulates. This has shown that his saturations are normal when he walks. He has atrial fibrillation with slow ventricular response in low 40s. He has been asymptomatic and denies any chest discomfort, dizziness or syncope. He does look little in more edematous on follow-up. He is saying that he is taking the morning dose of Lasix but not taking the afternoon does regularly. He is supposed to be on 120 mg Lasix in the morning and 80 in the afternoon. Because of progressive kidney disease he had left arm AV fistula placed but since then he has swelling of the left hand and unable to use the left hand and unable to make a fist. He is saying he is going back for surgery where they are going to ligate the AV fistula and make a new 1 in the upper arm. He also had 1 episode of central chest tightness at rest which happen few days ago. He is saying it lasted for few minutes and then resolved. It has not recurred since then. He was referred for stress test but could not exercise signifcantly on treadmill and stress was very limited. 09/2022: He is returning about [place] [facility]. He had bowel perforation and underwent surgery. His BP was low and his medications were held. He as finished rehab and came back home 2 days ago. He has not been taking the Lasix. He has edema. He has PETERSEN. 12/24/22: He returns for follow-up. He has lost significant weight. Since last visit, he has been started on hemodialysis. He also had admission with severe anemia and was transfused. He is here for follow-up with his . He is planning to undergo vascular surgery to have AV fistula formation on the left arm. He is significantly frail. He is walking with a walker. With ambulation inside the house he has no significant chest discomfort or shortness of breath. He is describing 1 episode of right-sided chest discomfort which lasted for 30 minutes at rest few days ago but it has not been a recurrent symptom for him. With ambulation he currently has no chest discomfort. 04/27/2023: He returns for follow up. He looks better than before. He is saying his appetite is improving. Does not look as frail as he was last time. He is denying shortness of breath. He does get off and on left-sided pressure-like feeling lasting for few seconds at rest. He is saying with activities he does not get any discomfort in his chest. Overall he is clinically stable. Blood pressure control is good. 08/10/2023:He returns for follow-up. He has been doing well. He has gained some weight. No chest discomfort shortness of breath. Compliant with hemodialysis. 01/04/24: He is here for follow-up. Has been doing well. No chest pain or shortness of breath. He is undergoing hemodialysis from right arm AV fistula on Thursday, and Thursday. 02/03/2024: He is here for follow-up. On last visit we arranged an echocardiogram for him because he has been 100% paced on the pacemaker. Sometimes RV pacing can lead to cardiomyopathy. Interestingly his echocardiography is showing severe LV dysfunction. He continues to be asymptomatic. We discussed about further workup including diagnostic angiogram and then referral to electrophysiology if there is no coronary artery disease found. In that situation he needs an upgrade to Bi V pacing. [facility] Medical History (Updated 02/03/24 @ 14:41 by Danny Ron MD) Obstructive sleep apnea CKD (chronic kidney disease) stage 4, GFR 15-29 ml/min HTN (hypertension) Dermatitis associated with moisture from stool incontinence Clostridioides difficile diarrhea Urinary retention with incomplete bladder emptying Pacemaker Pancytopenia Incomplete emptying of bladder due to benign prostatic hyperplasia Acute kidney injury superimposed on chronic kidney disease Fistula Paroxysmal A-fib Diastolic heart failure Pulmonary hypertension Depression, major Afib Bradycardia Scrotal edema Anasarca Cirrhosis Lymphedema Type 2 diabetes mellitus with hyperglycemia Osteoarthritis Peripheral neuropathy BPH (benign prostatic hyperplasia) Venous stasis dermatitis Obesity (BMI 30-39.9) Hypercholesterolemia Peripheral vascular disease Pulmonary hypertension Essential thrombocytopenia Anemia COPD (chronic obstructive pulmonary disease) Diabetic retinopathy Chronic kidney disease Lumbar degenerative disc disease High cholesterol Edema Gout Surgical History Hx of cardiac pacemaker History of bowel diversion surgery History of gastric surgery H/O prior ablation treatment History of carpal tunnel release History of bilateral cataract extraction History of tonsillectomy Family History Father Prostate cancer CVD (cardiovascular disease) Mother Hemochromatosis Brother Motor vehicle accident Sister CAD (coronary artery disease) Maternal Grandfather Myocardial infarction Social History Household Members: Spouse Housing: House Do you presently have visiting nurse or other home services: Yes Alcohol intake: never Patient Tobacco Use Status: Former Tobacco user Tobacco use type: Cigarette e-Cigarette/Vaping Use: Former Use Second Hand Smoke Exposure: Yes Advance Directives Date on File: 11/06/22 service: No Current occupational status: retired Cognitive needs: Yes Hearing needs: Yes Vision needs: Yes Review of Systems Const Denies chills, Denies fatigue, Denies fever(s), Denies frequent falls, Denies weakness, Denies weight gain and Denies weight loss ENT Denies dizziness Card Denies chest pain, Denies leg edema, Denies lightheadedness, Denies palpitations, Denies dyspnea and Denies dyspnea on exertion Resp Denies cough, Denies dyspnea and Denies dyspnea on exertion GI Denies hematochezia Musc Denies abnormal gait, Denies muscle weakness, Denies numbness, Denies radiating pain into limb and Denies tingling Neuro Denies abnormal gait, Denies dizziness, Denies frequent falls, Denies numbness, Denies tingling and Denies weakness Endo Denies fatigue and Denies palpitations Physical Exam Vital Signs: Last Vital Signs Pulse 68 02/03/24 13:48 BP 130/64 02/03/24 13:48 BMI result Body Mass Index 32.7 GENERAL APPEARANCE: in no acute distress. SKIN: no suspicious lesions, warm and dry. HEART: no murmurs, regular rate and rhythm. LUNGS: Few crackles at bases. ABDOMEN: soft, nontender. EXTREMITIES: Chronic changes from lymphedema. Mild edema. Right upper extremity AV fistula. PERIPHERAL PULSES: equal. NEUROLOGIC: No gross deficits, AAO X 3 Assessment & Plan Assessment & Plan (1) Cardiomyopathy: Code(s): I42.9 - Cardiomyopathy, unspecified Category: Medical Plan Pleasant 69 year gentleman who is here for follow-up. He was seen in December and an echocardiogram was requested because he has frequent RV pacing on his pacemaker. Echocardiography has shown severe LV dysfunction with EF of 20 25%. Clinically he is asymptomatic currently. I have discussed with him to do a diagnostic angiogram to rule out any coronary disease. If that is negative then we will refer him to EP for cardiac resynchronization therapy. He is on amlodipine and metoprolol tartrate 25 mg twice a day. I think he should be changed to losartan from amlodipine. We will discuss this with his loss prevention associate. Further recommendations we will be given as we do the diagnostic angiogram. If he has significant coronary disease which explains the level of LV dysfunction then we will revascularize him 1st. Thank you for allowing me to participate in the care of your patient. Please feel free to contact me if you have any questions. Orders: Orders Basic Metabolic Panel Today I42.9 - Cardiomyopathy, unspecified Prothrombin Time INR Today I42.9 - Cardiomyopathy, unspecified Complete Blood Count no Diff Today I42.9 - Cardiomyopathy, unspecified Cardiac Cath LT Diagnostic Today I42.9 - Cardiomyopathy, unspecified Coding Level of Care Code Est Pt Level 5 (02188) Diagnoses Cardiomyopathy I42.9
== END 2024-02-03 14:51 | disposition home or self-care (01) ==
PROVIDERS: PCP Internal Medicine; Visit Provider Internal Medicine Cardiovascular Disease
DX: I42.9 Cardiomyopathy, unspecified (principal); Z95.0 Presence of cardiac pacemaker
CPT/HCPCS: 99214

== ENCOUNTER → 2024-02-03 13:41 | Outpatient (BNVA) | payer MEDICARE, SELFPAY | PROVIDERS: PCP Internal Medicine; Visit Provider Internal Medicine Cardiovascular Disease | DX: I42.9 Cardiomyopathy, unspecified (principal); Z95.0 Presence of cardiac pacemaker | CPT/HCPCS: 99212 ==

== ENCOUNTER → 2024-02-13 23:59 | Outpatient (BNV) | payer MEDICARE, SELFPAY ==
--- NOTE | 2024-02-20 21:35 | MHC.OFFVIS ---
Intake Visit Reasons: Remote device check- [facility] Allergies No Known Allergies [No Known Allergies*] Allergy (Verified 01/29/24 13:47) [facility] Medical History (Updated 02/03/24 @ 14:41 by Danny Ron MD) Obstructive sleep apnea CKD (chronic kidney disease) stage 4, GFR 15-29 ml/min HTN (hypertension) Dermatitis associated with moisture from stool incontinence Clostridioides difficile diarrhea Urinary retention with incomplete bladder emptying Pacemaker Pancytopenia Incomplete emptying of bladder due to benign prostatic hyperplasia Acute kidney injury superimposed on chronic kidney disease Fistula Paroxysmal A-fib Diastolic heart failure Pulmonary hypertension Depression, major Afib Bradycardia Scrotal edema Anasarca Cirrhosis Lymphedema Type 2 diabetes mellitus with hyperglycemia Osteoarthritis Peripheral neuropathy BPH (benign prostatic hyperplasia) Venous stasis dermatitis Obesity (BMI 30-39.9) Hypercholesterolemia Peripheral vascular disease Pulmonary hypertension Essential thrombocytopenia Anemia COPD (chronic obstructive pulmonary disease) Diabetic retinopathy Chronic kidney disease Lumbar degenerative disc disease High cholesterol Edema Gout Surgical History Hx of cardiac pacemaker History of bowel diversion surgery History of gastric surgery H/O prior ablation treatment History of carpal tunnel release History of bilateral cataract extraction History of tonsillectomy Family History Father Prostate cancer CVD (cardiovascular disease) Mother Hemochromatosis Brother Motor vehicle accident Sister CAD (coronary artery disease) Maternal Grandfather Myocardial infarction Social History Household Members: Spouse Housing: House Do you presently have visiting nurse or other home services: Yes Alcohol intake: never Patient Tobacco Use Status: Former Tobacco user Tobacco use type: Cigarette e-Cigarette/Vaping Use: Former Use Second Hand Smoke Exposure: Yes Advance Directives Date on File: 11/06/22 service: No Current occupational status: retired Cognitive needs: Yes Hearing needs: Yes Vision needs: Yes Office Procedures Cardiac Device Check Cardiac Device Check Details: PPM Good battery life [employer] 94%. Multiple AMS episodes due to atrial fibrillation. [id number] Cardiac Device Check, pacemaker dual lead Procedure code (CPT) selection complete Assessment & Plan Assessment & Plan (1) Pacemaker: Code(s): Z95.0 - Presence of cardiac pacemaker Category: Medical Plan: Orders: Orders AMB Cardiac Device Follow-up 02/13/24 Z95.0 - Presence of cardiac pacemaker Coding Level of Care Code Procedure Only Diagnoses Pacemaker Z95.0 CPT Codes Cardiac Device Check - Cardiac Device 2: [id number] Cardiac Device Check, pacemaker dual lead ([id number])
== END ==
PROVIDERS: PCP Internal Medicine; Visit Provider Internal Medicine Cardiovascular Disease
DX: I48.91 Unspecified atrial fibrillation (principal); Z95.0 Presence of cardiac pacemaker
CPT/HCPCS: 93294

== ENCOUNTER 2024-02-16 10:01 | Outpatient (REF) | payer MEDICARE, SELFPAY ==
[2024-02-16 10:26] LABS: Hematocrit 33.8 % (42.0-52.0); Hemoglobin 11.4 g/dl (14.0-18.0); Mean Corpuscular HGB Conc 33.7 g/dl (31.0-36.0); Mean Corpuscular Hemoglobin 35.3 pg (27.0-33.0); Mean Corpuscular Volume 104.6 fL (80.0-98.0); Mean Platelet Volume 9.7 fL (9.4-12.4); Platelet Count 123 X10*3/uL (160-400); Red Blood Count 3.23 X10*6/uL (4.60-5.80); Red Cell Distribution Width 15.2 % (11.0-16.0); White Blood Count 4.3 X10*3/uL (4.8-10.8)
[2024-02-16 10:31] LABS: INTERNATIONAL NORM RATIO 1.3 (0.9-1.1); Prothrombin Time 15.9 SEC (11.1-13.3)
[2024-02-16 11:27] LABS: Anion Gap 19 (12-20); Blood Urea Nitrogen 18 mg/dL (9-16); Calcium 9.5 mg/dL (8.4-10.2); Carbon Dioxide 31 mmol/L (22-29); Chloride 96 mmol/L (96-108); Glucose Random 86 mg/dL (60-115); Potassium 3.9 mmol/L (3.3-5.1); Sodium 142 mmol/L (135-145)
[2024-02-16 11:39] LABS: Estimated Glomerular Filt Rate 14
== END 2024-02-16 10:02 | disposition home or self-care (01) ==
LOC: HO.LAB 10:01
PROVIDERS: PCP Internal Medicine; Visit Provider Internal Medicine Cardiovascular Disease
DX: I42.9 Cardiomyopathy, unspecified (principal)
CPT/HCPCS: 36415; 80048; 85027; 85610

== ENCOUNTER → 2024-02-24 23:59 | Outpatient (BNV) | payer MEDICARE, SELFPAY | PROVIDERS: PCP Internal Medicine; Visit Provider Internal Medicine Cardiovascular Disease | DX: I50.20 Unspecified systolic (congestive) heart failure (principal); I42.9 Cardiomyopathy, unspecified; N18.6 End stage renal disease | CPT/HCPCS: 93458; 93571; 93572; 99152 ==

== ENCOUNTER 2024-03-09 12:58 | Outpatient (AMB) | payer MEDICARE, SELFPAY ==
--- NOTE | 2024-03-09 13:04 | A.OFFVIS_ITS ---
Vital Signs 03/09/24 13:05 Height 5 ft 11 in Weight 233 lb 11.04 oz BMI 32.6 BP 110/60 Blood Pressure Location Lt brachial Position Sitting Pulse 68 Pulse Source Pulse Oximeter Intake Visit Reasons: 2 wks s/p cath Allergies No Known Allergies [No Known Allergies*] Allergy (Verified 01/29/24 13:47) Medication List - Last Reconciled 03/09/24 by Millie Manzanares NP albuterol sulfate 90 mcg/actuation (ProAir HFA) 2 puffs inhalation Q6H PRN amlodipine 5 mg PO DAILY Anoro Ellipta 62.5-25 mcg/actuation (umeclidinium-vilanterol) 1 ea inhalation DAILY NS [APAP 5-15 cm H20 humidified AIR As directed] apixaban 2.5 mg PO BID blood sugar diagnostic (FreeStyle Lite Strips) As directed check the BS BID blood-glucose meter (FreeStyle Lite Meter kit) As directed compr.stocking,thigh,reg,x-lrg As directed 20-30 mm HG kylah.stocking,knee,reg,xlrg As directedcompression stockings bilateral adjustable lower extremity garments ergocalciferol (vitamin D2) 50 mcg PO DAILY ferrous sulfate 325 mg PO DAILY hydroxychloroquine 200 mg PO Q OTHER DAY [Juxta Lite Compression wraps - Adjustable -for chronic ulcers with open wounds bilat lower extremities As directed] ketoconazole 2% appl topical DAILY lancets (FreeStyle Lancets) As directed check BS BID metoprolol tartrate 25 mg PO BID midodrine 5 mg PO DAILY polyethylene glycol 3350 (Miralax) 17 grams PO DAILY PRN pravastatin 20 mg PO DAILY sevelamer carbonate mg PO tramadol 50 mg PO BEDTIME HPI Comments Details: 69-year-old male presents today for a follow=up post cardiac catherization. He reports he has been feeling fine. Denies any chest pains, shortness of breath, swelling,. dizziness, or palpitations. He denies any fever, chills, or tenderness at left femoral access site. He states he has his appointment with Dr. Ibanez on 03/23/2024 for his REINSPECTOR consult. [facility] Medical History (Updated 02/03/24 @ 14:41 by Danny Ron MD) Obstructive sleep apnea CKD (chronic kidney disease) stage 4, GFR 15-29 ml/min HTN (hypertension) Dermatitis associated with moisture from stool incontinence Clostridioides difficile diarrhea Urinary retention with incomplete bladder emptying Pacemaker Pancytopenia Incomplete emptying of bladder due to benign prostatic hyperplasia Acute kidney injury superimposed on chronic kidney disease Fistula Paroxysmal A-fib Diastolic heart failure Pulmonary hypertension Depression, major Afib Bradycardia Scrotal edema Anasarca Cirrhosis Lymphedema Type 2 diabetes mellitus with hyperglycemia Osteoarthritis Peripheral neuropathy BPH (benign prostatic hyperplasia) Venous stasis dermatitis Obesity (BMI 30-39.9) Hypercholesterolemia Peripheral vascular disease Pulmonary hypertension Essential thrombocytopenia Anemia COPD (chronic obstructive pulmonary disease) Diabetic retinopathy Chronic kidney disease Lumbar degenerative disc disease High cholesterol Edema Gout Surgical History (Updated 03/09/24 @ 13:09 by Millie Manzanares NP) S/P cardiac catheterization Hx of cardiac pacemaker History of bowel diversion surgery History of gastric surgery H/O prior ablation treatment History of carpal tunnel release History of bilateral cataract extraction History of tonsillectomy Family History Father Prostate cancer CVD (cardiovascular disease) Mother Hemochromatosis Brother Motor vehicle accident Sister CAD (coronary artery disease) Maternal Grandfather Myocardial infarction Social History Household Members: Spouse Housing: House Do you presently have visiting nurse or other home services: Yes Alcohol intake: never Patient Tobacco Use Status: Former Tobacco user Tobacco use type: Cigarette e-Cigarette/Vaping Use: Former Use Second Hand Smoke Exposure: Yes Advance Directives Date on File: 11/06/22 service: No Current occupational status: retired Cognitive needs: Yes Hearing needs: Yes Vision needs: Yes Review of Systems Const Denies weakness ENT Denies dizziness Card Denies chest pain, Denies chest pain with activity, Denies syncope, Denies rapid heart rate, Denies pedal edema, Denies edema, Denies leg edema, Denies lightheadedness, Denies palpitations, Denies dyspnea, Denies dyspnea on exertion and Denies orthopnea Resp Denies cough, Denies dyspnea and Denies dyspnea on exertion GI Denies hematochezia and Denies change in stool character Musc Denies abnormal gait, Denies muscle cramps, Denies muscle weakness, Denies n umbness, Denies radiating pain into limb and Denies tingling Neuro Denies abnormal gait, Denies dizziness, Denies syncope, Denies numbness, Denies tingling and Denies weakness Endo Denies palpitations Physical Exam Vital Signs: Last Vital Signs Pulse 68 03/09/24 13:05 BP 110/60 03/09/24 13:05 BMI result Body Mass Index 32.6 Const Other: Left femoral artery acccessed. Healing appropriately. Mild bruising that is healing. No swelling, tenderness, erythema, or drainage noted. General: healthy appearing and no acute distress Orientation/consciousness: patient oriented x3 HEENT Head: Yes normal to inspection Eyes General: appearance normal, both eyes and all related structures Neck Neck: Yes normal visual inspection Chest Chest palpation & inspection: normal inspection of the chest Resp Effort & Inspection: normal respiratory effort Auscultation: clear to auscultation bilaterally Cardio Jugular venous distension: no JVD Palpation: normal PMI Rate: regular rate Rhythm: regular rhythm Heart sounds: S1 normal heart sound present, S2 normal heart sound present, no click, no gallops, no murmurs and no rubs GI Inspection: Yes normal to inspection Palpation (GI): Soft to palpation Skin General skin exam: no rashes or lesions noted Neuro General: patient oriented x3 Extrem General: Yes normal to inspection Psych Appearance: grossly normal Assessment & Plan Assessment & Plan (1) S/P cardiac catheterization: Comment: 02/24/[address] Ron Cardiac Arteries and Lesion Findings LAD: Lesion in Mid LAD: 60% stenosis .The lesion was eccentric. LCx: Lesion in Mid CX: 65% stenosis . RCA: Lesion in Dist RCA: Proximal subsection.99% stenosis .The lesion was heavily calcified. Code(s): Z98.890 - Other specified postprocedural states Category: Surgical (2) Cardiomyopathy: Code(s): I42.9 - Cardiomyopathy, unspecified Category: Medical Plan Catherization showed severe mid RCA stenosis with heavy calcifications. Left to right collaterals - faint. Moderate LCx and LAD disease. Accessed by left femoral artery. Healing appropriately. No swelling, erythema, tenderness, or drainage noted. mild bruising. Coronary disease does not explain the defree of LV dysunction. Predominately non-ischemic caridomyopathy. Recommendations of GDMT for cardiomyopathy, aggressive risk factor modifications, REINSPECTOR. If anginal symptoms then RCA PCI with atherectomy. REINSPECTOR consult on 03/23/[address] Ibanez. Echocardiography has showed EF of 20-25%. Continue current medications. Coding Level of Care Code Est Pt Level 4 (38086) Diagnoses S/P cardiac catheterization Z98.890 Cardiomyopathy I42.9
[2024-03-09 13:05] VITALS: BP 110/60; PULSE 68; BMI 32.6
== END 2024-03-09 13:27 | disposition home or self-care (01) ==
PROVIDERS: PCP Internal Medicine; Visit Provider Nurse Practitioner
DX: Z98.890 Other specified postprocedural states (principal); I42.9 Cardiomyopathy, unspecified
CPT/HCPCS: 99214

== ENCOUNTER → 2024-03-09 12:58 | Outpatient (BNVA) | payer MEDICARE, SELFPAY | PROVIDERS: PCP Internal Medicine; Visit Provider Nurse Practitioner | DX: I42.9 Cardiomyopathy, unspecified (principal); Z98.890 Other specified postprocedural states | CPT/HCPCS: 99212 ==

== ENCOUNTER 2024-04-15 09:09 | Outpatient (AMB) | payer MEDICARE, SELFPAY ==
--- NOTE | 2024-04-15 10:04 | MHC.PC.OV ---
Vital Signs 04/15/24 10:05 Height 5 ft 11 in Weight 223 lb BMI 31.1 BP 120/70 Blood Pressure Location Lt brachial Position Sitting Intake Visit Reasons: pain in his left ankle wound Intake Note: Patient is here to follow up on pain in left ankle wound. Corporate Controller Required: No Collaborative Physician: Not Required per policy Accompanied by: Self / Same As Patient Allergies No Known Allergies [No Known Allergies*] Allergy (Verified 04/15/24 10:05) Tobacco use date assessed: 04/15/24 Fall risk assessment: No Falls in past year Last assessed Fall Risk: 04/15/24 Dental Screening Dental Screen Date: 10/12/23 HPI pain in his left ankle wound HPI Details 69-year-old obese male(noted 10 lb weight loss) with SLE hypertension atrial fibrillation on Eliquis end-stage renal disease on dialysis Thursday, , Thursday right AV fistula depression GERD hypercholesterolemia and peripheral vascular disease. Patient also has a diagnosis of obstructive sleep apnea. But does not use the CPAP. Comes in for follow-up for an acute problem. Review of the notes was recently discharged from the hospital April 07 2024 acute hypoxic respiratory failure with congestive heart failure rhino virus likely superimposed bacterial pneumonia patient did have atrial fibrillation with rapid ventricular rate pacemaker 03/2024 with device upgrade. Pneumonia treated with ceftriaxone and doxycycline transition to Augmentin with prednisone. Called in due to a painful left ankle wound. [facility] Medical History (Updated 04/15/24 @ 18:39 by Steve Nguyen MD) CKD (chronic kidney disease) stage 4, GFR 15-29 ml/min Obstructive sleep apnea HTN (hypertension) Dermatitis associated with moisture from stool incontinence Clostridioides difficile diarrhea Urinary retention with incomplete bladder emptying Pacemaker Pancytopenia Incomplete emptying of bladder due to benign prostatic hyperplasia Acute kidney injury superimposed on chronic kidney disease Fistula Paroxysmal A-fib Diastolic heart failure Pulmonary hypertension Depression, major Afib Bradycardia Scrotal edema Anasarca Cirrhosis Lymphedema Type 2 diabetes mellitus with hyperglycemia Osteoarthritis Peripheral neuropathy BPH (benign prostatic hyperplasia) Venous stasis dermatitis Obesity (BMI 30-39.9) Hypercholesterolemia Peripheral vascular disease Pulmonary hypertension Essential thrombocytopenia Anemia COPD (chronic obstructive pulmonary disease) Diabetic retinopathy Chronic kidney disease Lumbar degenerative disc disease High cholesterol Edema Gout Surgical History S/P cardiac catheterization Hx of cardiac pacemaker History of bowel diversion surgery History of gastric surgery H/O prior ablation treatment History of carpal tunnel release History of bilateral cataract extraction History of tonsillectomy Family History Father Prostate cancer CVD (cardiovascular disease) Mother Hemochromatosis Brother Motor vehicle accident Sister CAD (coronary artery disease) Maternal Grandfather Myocardial infarction Social History Household Members: Spouse Housing: House Do you presently have visiting nurse or other home services: Yes Alcohol intake: never Patient Tobacco Use Status: Former Tobacco user Tobacco use type: Cigarette e-Cigarette/Vaping Use: Former Use Second Hand Smoke Exposure: Yes Advance Directives Date on File: 11/06/22 service: No Current occupational status: retired Cognitive needs: Yes Hearing needs: Yes Vision needs: Yes Questionnaire Thrive Questionnaire Date Thrive assessed: 07/13/23 RADHA-7 AMB Questionnaire RADHA-7 Date RADHA - 7 assessed: 07/13/23 Source: Developed by Drs. Milton Ferrer, Shanna Fischer, Marc Hunt and colleagues, with an educational kaur from [employer]. Physical exam (Primary Care) Vital Signs: Last Vital Signs BP 120/70 04/15/24 10:05 BMI result Body Mass Index 31.1 Tobacco/Smoking Status: Tobacco use Status Tobacco use date assessed 04/15/24 04/15/24 10:18 Patient Tobacco Use Status Former Tobacco user 04/15/24 10:18 Tobacco use type Cigarette 04/15/24 10:18 e-Cigarette/Vaping Use Former Use 04/15/24 10:18 Thrive Assessment: Date of Thrive Assessment Date Thrive assessed 07/13/23 04/15/24 10:18 Extrem Ankle/foot/toe images: 1. 1.5 cm ulcwer L lateral ankle Coding Level of Care Code Est Pt Level 4 (59827) Diagnoses Paroxysmal atrial fibrillation I48.0 Atrial fibrillation type: paroxysmal Cardiomyopathy, unspecified type I42.9 Cardiomyopathy type: unspecified ESRD (end stage renal disease) N18.6 Essential hypertension I10 Hypertension type: essential hypertension Peripheral vascular disease I73.9 Lower limb ulcer, ankle, left, with unspecified severity L97.329 Non-pressure ulcer stage: unspecified non-pressure ulcer stage Onychomycosis B35.1 Assessment & Plan Assessment & Plan (1) Afib: Code(s): I48.91 - Unspecified atrial fibrillation Category: Medical Qualifiers: Atrial fibrillation type: paroxysmal Qualified Code(s): I48.0 - Paroxysmal atrial fibrillation Plan: Patient on anticoagulation with Eliquis (2) Cardiomyopathy: Code(s): I42.9 - Cardiomyopathy, unspecified Category: Medical Qualifiers: Cardiomyopathy type: unspecified Qualified Code(s): I42.9 - Cardiomyopathy, unspecified Plan: Pacemaker placement/upgrade continuing on beta casey (3) ESRD (end stage renal disease): Comment: On dialysis Tuesdays Code(s): N18.6 - End stage renal disease Category: Medical Plan: Continue with dialysis (4) HTN (hypertension): Code(s): I10 - Essential (primary) hypertension Category: Medical Qualifiers: Hypertension type: essential hypertension Qualified Code(s): I10 - Essential (primary) hypertension Plan: Continue with blood pressure medication. Decrease salt intake and exercise on amlodipine 5 mg once a day metoprolol 25 mg twice a day (5) Peripheral vascular disease: Code(s): I73.9 - Peripheral vascular disease, unspecified Category: Medical Plan: When sitting down elevate the legs, exercise, and support stockings (6) Ulcer of left ankle: Code(s): L97.329 - Non-pressure chronic ulcer of left ankle with unspecified severity Category: Medical Qualifiers: Non-pressure ulcer stage: unspecified non-pressure ulcer stage Qualified Code(s): L97.329 - Non-pressure chronic ulcer of left ankle with unspecified severity Plan: will refer to wound care and will supply with pain med (7) Onychomycosis: Code(s): B35.1 - Tinea unguium Category: Medical Plan: Referral to podiatry Orders: Referrals Podiatry Referral B35.1 - Tinea unguium Wound Care Referral L97.329 - Non-pressure chronic ulcer of left ankle with unspecified severity Medications: New gabapentin 300 mg PO BEDTIME 30 caps 1RF L97.329 - Non-pressure chronic ulcer of left ankle with unspecified severity Refilled tramadol 50 mg PO BEDTIME 30 tabs 0RF M25.511 - Pain in right shoulder, M25.512 - Pain in left shoulder
[2024-04-15 10:05] VITALS: BP 120/70; BMI 31.1
== END 2024-04-15 10:46 | disposition home or self-care (01) ==
LOC: HO.HMCH 09:10
PROVIDERS: PCP Internal Medicine; Visit Provider Internal Medicine
DX: I12.0 Hypertensive chronic kidney disease with stage 5 chronic kidney disease or end stage renal disease (principal); I48.0 Paroxysmal atrial fibrillation; I42.9 Cardiomyopathy, unspecified; N18.6 End stage renal disease; I73.9 Peripheral vascular disease, unspecified; L97.329 Non-pressure chronic ulcer of left ankle with unspecified severity; B35.1 Tinea unguium

== ENCOUNTER → 2024-04-15 09:09 | Outpatient (BNVA) | payer MEDICARE, SELFPAY | PROVIDERS: PCP Internal Medicine; Visit Provider Internal Medicine | DX: I48.0 Paroxysmal atrial fibrillation (principal); I42.9 Cardiomyopathy, unspecified; I12.9 Hypertensive chronic kidney disease with stage 1 through stage 4 chronic kidney disease, or unspecified chronic kidney disease; N18.6 End stage renal disease; I73.9 Peripheral vascular disease, unspecified; L97.329 Non-pressure chronic ulcer of left ankle with unspecified severity; B35.1 Tinea unguium | CPT/HCPCS: 99212 ==

== ENCOUNTER → 2024-04-18 15:11 | Outpatient (BNVA) | payer MEDICARE, SELFPAY | PROVIDERS: PCP Internal Medicine; Visit Provider Nurse Practitioner Family ==

== ENCOUNTER → 2024-05-14 23:59 | Outpatient (BNV) | payer MEDICARE, SELFPAY ==
--- NOTE | 2024-05-31 21:08 | MHC.OFFVIS ---
Intake Visit Reasons: Remote device check- [facility] Allergies No Known Allergies [No Known Allergies*] Allergy (Verified 04/18/24 15:13) [facility] Medical History Blood clot in arm (~04/11/24) CKD (chronic kidney disease) stage 4, GFR 15-29 ml/min Obstructive sleep apnea HTN (hypertension) Dermatitis associated with moisture from stool incontinence Clostridioides difficile diarrhea Urinary retention with incomplete bladder emptying Pacemaker Pancytopenia Incomplete emptying of bladder due to benign prostatic hyperplasia Acute kidney injury superimposed on chronic kidney disease Fistula Paroxysmal A-fib Diastolic heart failure Pulmonary hypertension Depression, major Afib Bradycardia Scrotal edema Anasarca Cirrhosis Lymphedema Type 2 diabetes mellitus with hyperglycemia Osteoarthritis Peripheral neuropathy BPH (benign prostatic hyperplasia) Venous stasis dermatitis Obesity (BMI 30-39.9) Hypercholesterolemia Peripheral vascular disease Pulmonary hypertension Essential thrombocytopenia Anemia COPD (chronic obstructive pulmonary disease) Diabetic retinopathy Chronic kidney disease Lumbar degenerative disc disease High cholesterol Edema Gout Surgical History S/P cardiac catheterization Hx of cardiac pacemaker History of bowel diversion surgery History of gastric surgery H/O prior ablation treatment History of carpal tunnel release History of bilateral cataract extraction History of tonsillectomy Family History Father Prostate cancer CVD (cardiovascular disease) Mother Hemochromatosis Brother Motor vehicle accident Sister CAD (coronary artery disease) Maternal Grandfather Myocardial infarction Social History Household Members: Spouse Housing: House Do you presently have visiting nurse or other home services: Yes Alcohol intake: never Patient Tobacco Use Status: Former Tobacco user Tobacco use type: Cigarette e-Cigarette/Vaping Use: Former Use Second Hand Smoke Exposure: Yes Advance Directives Date on File: 11/06/22 service: No Current occupational status: retired Cognitive needs: Yes Hearing needs: Yes Vision needs: Yes Office Procedures Cardiac Device Check Cardiac Device Check Details: LBBA pacing BP 95%. Background atrial fibrillation. [place]. [id number] Cardiac Device Check, multi lead pacemaker Procedure code (CPT) selection complete Assessment & Plan Assessment & Plan (1) Cardiomyopathy: Code(s): I42.9 - Cardiomyopathy, unspecified Category: Medical Qualifiers: Cardiomyopathy type: unspecified Qualified Code(s): I42.9 - Cardiomyopathy, unspecified Plan: Coding Level of Care Code Procedure Only Diagnoses Cardiomyopathy, unspecified type I42.9 Cardiomyopathy type: unspecified CPT Codes Cardiac Device Check - Cardiac Device 3: 35262-PW Cardiac Device Check, multi lead pacemaker ([id number])
== END ==
PROVIDERS: PCP Internal Medicine; Visit Provider Internal Medicine Cardiovascular Disease
DX: I42.9 Cardiomyopathy, unspecified (principal); Z95.0 Presence of cardiac pacemaker
CPT/HCPCS: 93294

== ENCOUNTER 2024-06-20 09:35 | Outpatient (AMB) | payer MEDICARE, SELFPAY ==
[2024-06-20 09:40] VITALS: BP 130/70; PULSE 67; BMI 33.1
--- NOTE | 2024-06-20 09:40 | A.OFFVIS_ITS ---
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 Required: No Accompanied by: Self / Same As Patient Allergies No Known Allergies [No Known Allergies*] Allergy (Verified 04/18/24 15:13) Medication List - Last Reconciled 06/20/24 by Danny Ron MD albuterol sulfate 90 mcg/actuation (ProAir HFA) 2 puffs inhalation Q6H PRN amlodipine 5 mg PO DAILY Anoro Ellipta 62.5-25 mcg/actuation (umeclidinium-vilanterol) 1 ea inhalation DAILY NS [APAP 5-15 cm H20 humidified AIR As directed] apixaban 2.5 mg PO BID blood sugar diagnostic (FreeStyle Lite Strips) As directed check the BS BID blood-glucose meter (FreeStyle Lite Meter kit) As directed compr.[email or web address],thigh,reg,x-lrg As directed 20-30 mm HG kylah.stocking,knee,reg,xlrg As directedcompression stockings bilateral adjustable lower extremity garments ergocalciferol (vitamin D2) 50 mcg PO DAILY fluconazole mg PO gabapentin 300 mg PO BEDTIME hydroxychloroquine 200 mg PO Q OTHER DAY [Juxta Lite Compression wraps - Adjustable -for chronic ulcers with open wounds bilat lower extremities As directed] ketoconazole 2% appl topical DAILY lancets (FreeStyle Lancets) As directed check BS BID metoprolol tartrate 25 mg PO BID midodrine 5 mg PO DAILY polyethylene glycol 3350 (Miralax) 17 grams PO DAILY PRN pravastatin 20 mg PO DAILY sevelamer carbonate mg PO tramadol 50 mg PO BEDTIME HPI Comments Details: 69-year-old gentleman who is here for follow-up. He was previously seeing Dr. Cuevas and Dr Varner at [facility]. He has background history of diabetes, obesity, obstructive sleep apnea, chronic kidney disease, peripheral vascular disease, COPD, gout, hypertension and lymphedema. He has background of junctional bradycardia and as per his report there were some discussions in the past about pacemaker placement but then it was decided not to place a pacemaker. Echocardiography showed normal biventricular function with D-shaped LV cavity pointing towards right ventricular pressure and volume overload. Echo also showed moderate to severe pulmonary hypertension he is a former smoker. Has been taking medications regularly. He was referred for pulmonology evaluation to see if he has hypoxic when he ambulates. This has shown that his saturations are normal when he walks. He has atrial fibrillation with slow ventricular response in low 40s. He has been asymptomatic and denies any chest discomfort, dizziness or syncope. He does look little in more edematous on follow-up. He is saying that he is taking the morning dose of Lasix but not taking the afternoon does regularly. He is supposed to be on 120 mg Lasix in the morning and 80 in the afternoon. Because of progressive kidney disease he had left arm AV fistula placed but since then he has swelling of the left hand and unable to use the left hand and unable to make a fist. He is saying he is going back for surgery where they are going to ligate the AV fistula and make a new 1 in the upper arm. He also had 1 episode of central chest tightness at rest which happen few days ago. He is saying it lasted for few minutes and then resolved. It has not recurred since then. He was referred for stress test but could not exercise signifcantly on treadmill and stress was very limited. 09/2022: He is returning about admission at [facility] for abdominal pain. He had bowel perforation and underwent surgery. His BP was low and his medications were held. He as finished rehab and came back home 2 days ago. He has not been taking the Lasix. He has edema. He has PETERSEN. 12/24/22: He returns for follow-up. He has lost significant weight. Since last visit, he has been started on hemodialysis. He also had admission with severe anemia and was transfused. He is here for follow-up with his . He is planning to undergo vascular surgery to have AV fistula formation on the left arm. He is significantly frail. He is walking with a walker. With ambulation inside the house he has no significant chest discomfort or shortness of breath. He is describing 1 episode of right-sided chest discomfort which lasted for 30 minutes at rest few days ago but it has not been a recurrent symptom for him. With ambulation he currently has no chest discomfort. 04/27/2023: He returns for follow up. He looks better than before. He is saying his appetite is improving. Does not look as frail as he was last time. He is denying shortness of breath. He does get off and on left-sided pressure- like feeling lasting for few seconds at rest. He is saying with activities he does not get any discomfort in his chest. Overall he is clinically stable. Blood pressure control is good. 08/10/2023:He returns for follow-up. He has been doing well. He has gained some weight. No chest discomfort shortness of breath. Compliant with hemodialysis. 01/04/24: He is here for follow-up. Has been doing well. No chest pain or shortness of breath. He is undergoing hemodialysis from right arm AV fistula on Thursday, and Thursday. 02/03/2024: He is here for follow-up. On last visit we arranged an echocardiogram for him because he has been 100% paced on the pacemaker. Sometim es RV pacing can lead to cardiomyopathy. Interestingly his echocardiography is showing severe LV dysfunction. He continues to be asymptomatic. We discussed about further workup including diagnostic angiogram and then referral to electrophysiology if there is no coronary artery disease found. In that situation he needs an upgrade to Bi V pacing. 06/20/2024: He returns for follow-up. He underwent Bi V upgrade in 04/03/2024 for severe cardiomyopathy. Before that he underwent cardiac catheterization which showed moderate circumflex and LAD stenosis but severe mid right coronary artery stenosis with heavy calcification. He did not have significant anginal symptoms at that time. On follow-up today he is complaining of chest discomfort which is happening with activity. He is not very active at baseline. No symptoms at rest. On dialysis Thursday and Thursday. [facility] Medical History Blood clot in arm (~04/11/24) CKD (chronic kidney disease) stage 4, GFR 15-29 ml/min Obstructive sleep apnea HTN (hypertension) Dermatitis associated with moisture from stool incontinence Clostridioides difficile diarrhea Urinary retention with incomplete bladder emptying Pacemaker Pancytopenia Incomplete emptying of bladder due to benign prostatic hyperplasia Acute kidney injury superimposed on chronic kidney disease Fistula Paroxysmal A-fib Diastolic heart failure Pulmonary hypertension Depression, major Afib Bradycardia Scrotal edema Anasarca Cirrhosis Lymphedema Type 2 diabetes mellitus with hyperglycemia Osteoarthritis Peripheral neuropathy BPH (benign prostatic hyperplasia) Venous stasis dermatitis Obesity (BMI 30-39.9) Hypercholesterolemia Peripheral vascular disease Pulmonary hypertension Essential thrombocytopenia Anemia COPD (chronic obstructive pulmonary disease) Diabetic retinopathy Chronic kidney disease Lumbar degenerative disc disease High cholesterol Edema Gout Surgical History S/P cardiac catheterization Hx of cardiac pacemaker History of bowel diversion surgery History of gastric surgery H/O prior ablation treatment History of carpal tunnel release History of bilateral cataract extraction History of tonsillectomy Family History Father Prostate cancer CVD (cardiovascular disease) Mother Hemochromatosis Brother Motor vehicle accident Sister CAD (coronary artery disease) Maternal Grandfather Myocardial infarction Social History Household Members: Spouse Housing: House Do you presently have visiting nurse or other home services: Yes Alcohol intake: never Patient Tobacco Use Status: Former Tobacco user Tobacco use type: Cigarette e-Cigarette/Vaping Use: Former Use Second Hand Smoke Exposure: Yes Advance Directives Date on File: 11/06/22 service: No Current occupational status: retired Cognitive needs: Yes Hearing needs: Yes Vision needs: Yes Review of Systems Const Denies chills, Denies fatigue, Denies fever(s), Denies frequent falls, Denies weakness, Denies weight gain and Denies weight loss ENT Denies dizziness Card Denies chest pain, Denies leg edema, Denies lightheadedness, Denies palpitations, Denies dyspnea and Denies dyspnea on exertion Resp Denies cough, Denies dyspnea and Denies dyspnea on exertion GI Denies hematochezia Musc Denies abnormal gait, Denies muscle weakness, Denies numbness, Denies radiating pain into limb and Denies tingling Neuro Denies abnormal gait, Denies dizziness, Denies frequent falls, Denies numbness, Denies tingling and Denies weakness Endo Denies fatigue and Denies palpitations Physical Exam Vital Signs: Last Vital Signs Pulse 67 06/20/24 09:40 BP 130/70 06/20/24 09:40 BMI result Body Mass Index 33.1 GENERAL APPEARANCE: in no acute distress. Neck: Positive JVD. SKIN: no suspicious lesions, warm and dry. HEART: no murmurs, regular rate and rhythm. LUNGS: Crackles both bases. ABDOMEN: soft, nontender. EXTREMITIES: Chronic changes from lymphedema. Mild edema. Right upper extremity AV fistula. PERIPHERAL PULSES: equal. NEUROLOGIC: No gross deficits, AAO X 3 Office Procedures EKG Details: V paced rhythm, QRS duration 122 milliseconds. Background atrial fibrillation. 26002-[id number], Complete Assessment & Plan Assessment & Plan (1) Chest pain: Code(s): R07.9 - Chest pain, unspecified Category: Medical (2) Pacemaker: Code(s): Z95.0 - Presence of cardiac pacemaker Category: Medical (3) Afib: Code(s): I48.91 - Unspecified atrial fibrillation Category: Medical Qualifiers: Atrial fibrillation type: paroxysmal Qualified Code(s): I48.0 - Paroxysmal atrial fibrillation (4) Cardiomyopathy: Code(s): I42.9 - Cardiomyopathy, unspecified Category: Medical Qualifiers: Cardiomyopathy type: unspecified Qualified Code(s): I42.9 - Cardiomyopathy, unspecified Plan Pleasant 69 year gentleman who is here for follow-up. He was seen in December and an echocardiogram was requested because he has frequent RV pacing on his pacemaker. Echocardiography has shown severe LV dysfunction with EF of 20 25%. Clinically did not develop any heart failure syndrome. He underwent cardiac catheterization which showed severe right coronary artery stenosis. He had moderate LAD and circumflex stenosis. His severe LV dysfunction was out of proportion to coronary artery disease. We decided do DROP FORGER HELPER which he underwent in 04/03/2024. He is back for follow-up and has been doing okay. He has been getting some chest pressure with activities which lasts for 2-3 minutes. He is saying that he has to sit down when this happens. This has not happened at rest but does happen with activities. He is not very active at baseline in his day-to-day life. We will repeat limited echocardiogram to reassess LV function after DROP FORGER HELPER. I discussed with him in detail about coronary angiography findings that he has severe right coronary artery stenosis. The RCA is heavily calcified and we will require atherectomy. He is more inclined to her doing angiography and treating the right coronary artery. We will arrange cardiac catheterization for him. Starting him on Plavix 75 mg along with Eliquis. On the day of procedure we will give him aspirin load and treat the right coronary artery and then transition him to Plavix 75 mg and Eliquis. He continues to require some midodrine during dialysis but does not need it otherwise. Thank you for allowing me to participate in the care of your patient. Please feel free to contact me if you have any questions. Orders: Orders CA Echo Limited Today I42.9 - Cardiomyopathy, unspecified Cardiac Cath LT w PCI Today I42.9 - Cardiomyopathy, unspecified Medications: New clopidogrel 75 mg PO DAILY 120 tabs 3RF I42.9 - Cardiomyopathy, unspecified Coding Level of Care Code Est Pt Level 5 (69109) Diagnoses Chest pain R07.9 Pacemaker Z95.0 Paroxysmal atrial fibrillation I48.0 Atrial fibrillation type: paroxysmal Cardiomyopathy, unspecified type I42.9 Cardiomyopathy type: unspecified CPT Codes EKG - CPT: 60262-[id number], Complete ([id number])
== END 2024-06-20 10:16 | disposition home or self-care (01) ==
PROVIDERS: PCP Internal Medicine; Visit Provider Internal Medicine Cardiovascular Disease
DX: R07.9 Chest pain, unspecified (principal); Z95.0 Presence of cardiac pacemaker; I48.0 Paroxysmal atrial fibrillation; I42.9 Cardiomyopathy, unspecified; R94.31 Abnormal electrocardiogram [ECG] [EKG]
CPT/HCPCS: 93010; 99215

== ENCOUNTER → 2024-06-20 09:35 | Outpatient (BNVA) | payer MEDICARE, SELFPAY | PROVIDERS: PCP Internal Medicine; Visit Provider Internal Medicine Cardiovascular Disease | DX: R07.9 Chest pain, unspecified (principal); I48.0 Paroxysmal atrial fibrillation; I42.9 Cardiomyopathy, unspecified; Z95.0 Presence of cardiac pacemaker; R94.31 Abnormal electrocardiogram [ECG] [EKG]; I45.10 Unspecified right bundle-branch block | CPT/HCPCS: 93005; 99212 ==

== ENCOUNTER → 2024-08-13 23:59 | Outpatient (BNV) | payer MEDICARE, SELFPAY ==
--- NOTE | 2024-08-21 16:57 | A.OFFVIS_ITS ---
Intake Visit Reasons: Remote device check- [facility] Allergies No Known Allergies [No Known Allergies*] Allergy (Verified 04/18/24 15:13) FOR[facility]LY [facility] Medical History Blood clot in arm (~04/11/24) CKD (chronic kidney disease) stage 4, GFR 15-29 ml/min Obstructive sleep apnea HTN (hypertension) Dermatitis associated with moisture from stool incontinence Clostridioides difficile diarrhea Urinary retention with incomplete bladder emptying Pacemaker Pancytopenia Incomplete emptying of bladder due to benign prostatic hyperplasia Acute kidney injury superimposed on chronic kidney disease Fistula Paroxysmal A-fib Diastolic heart failure Pulmonary hypertension Depression, major Afib Bradycardia Scrotal edema Anasarca Cirrhosis Lymphedema Type 2 diabetes mellitus with hyperglycemia Osteoarthritis Peripheral neuropathy BPH (benign prostatic hyperplasia) Venous stasis dermatitis Obesity (BMI 30-39.9) Hypercholesterolemia Peripheral vascular disease Pulmonary hypertension Essential thrombocytopenia Anemia COPD (chronic obstructive pulmonary disease) Diabetic retinopathy Chronic kidney disease Lumbar degenerative disc disease High cholesterol Edema Gout Surgical History S/P cardiac catheterization Hx of cardiac pacemaker History of bowel diversion surgery History of gastric surgery H/O prior ablation treatment History of carpal tunnel release History of bilateral cataract extraction History of tonsillectomy Family History Father Prostate cancer CVD (cardiovascular disease) Mother Hemochromatosis Brother Motor vehicle accident Sister CAD (coronary artery disease) Maternal Grandfather Myocardial infarction Social History Household Members: Spouse Housing: House Do you presently have visiting nurse or other home services: Yes Alcohol intake: never Patient Tobacco Use Status: Former Tobacco user Tobacco use type: Cigarette e-Cigarette/Vaping Use: Former Use Second Hand Smoke Exposure: Yes Advance Directives Date on File: 11/06/22 service: No Current occupational status: retired Cognitive needs: Yes Hearing needs: Yes Vision needs: Yes Office Procedures Cardiac Device Check Cardiac Device Check Details: LBBAP Good battery life V-paced 92%. No new alerts. 06459-[id number] Cardiac Device Check, pacemaker dual lead Procedure code (CPT) selection complete Assessment & Plan Assessment & Plan (1) Cardiomyopathy: Code(s): I42.9 - Cardiomyopathy, unspecified Category: Medical Qualifiers: Cardiomyopathy type: unspecified Qualified Code(s): I42.9 - Cardiomyopathy, unspecified Plan: Coding Level of Care Code Procedure Only Diagnoses Cardiomyopathy, unspecified type I42.9 Cardiomyopathy type: unspecified CPT Codes Cardiac Device Check - Cardiac Device 2: 19971-RM Cardiac Device Check, pacemak er dual lead ([id number])
== END ==
PROVIDERS: PCP Internal Medicine; Visit Provider Internal Medicine Cardiovascular Disease
DX: I42.9 Cardiomyopathy, unspecified (principal); Z95.0 Presence of cardiac pacemaker
CPT/HCPCS: 93294

== ENCOUNTER 2024-08-25 10:27 | Outpatient (REF) | payer MEDICARE, SELFPAY ==
[2024-08-25 10:59] LABS: MANUAL DIFF FLAG NO
[2024-08-25 11:11] LABS: Basophils Absolute Auto 0.1 X10*3/uL (0.0-0.2); Basophils Percent Auto 1.8 % (0-2); Eosinophils Absolute Auto 0.1 X10*3/uL (0.0-0.4); Eosinophils Percent Auto 1.8 % (0-4); Hemoglobin 10.7 g/dl (14.0-18.0); Imm Gran Abs Auto 0.01 X10*3/uL (0.00-0.03); Imm Gran Pct Auto 0.3 % (0.0-0.4); Lymphocytes Absolute Auto 0.8 X10*3/uL (1.2-4.9); Lymphocytes Percent Auto 19.2 % (20-40); Mean Corpuscular HGB Conc 33.4 g/dl (31.0-36.0); Mean Corpuscular Hemoglobin 33.9 pg (27.0-33.0); Mean Corpuscular Volume 101.3 fL (80.0-98.0); Mean Platelet Volume 9.1 fL (9.4-12.4); Monocytes Absolute Auto 0.5 X10*3/uL (0.1-1.2); Monocytes Percent Auto 12.6 % (2-11); Neutrophils Absolute Auto 2.5 x10*3/uL (2.0-8.3); Neutrophils Percent Auto 64.3 % (45-73); Platelet Count 115 X10*3/uL (160-400); Red Blood Count 3.16 X10*6/uL (4.60-5.80); Red Cell Distribution Width 14.5 % (11.0-16.0); White Blood Count 3.9 X10*3/uL (4.8-10.8)
[2024-08-25 11:17] LABS: INTERNATIONAL NORM RATIO 1.2 (0.9-1.1); Prothrombin Time 14.5 SEC (10.9-12.4)
[2024-08-25 11:45] LABS: Alanine Aminotransferase 15 U/L (0-40); Albumin Level 3.8 g/dL (3.5-5.0); Alkaline Phosphatase 163 U/L (39-117); Anion Gap 13 (12-20); Aspartate Amino Transferase 23 U/L (5-37); Bilirubin Total 1.2 mg/dL (0.0-1.0); Blood Urea Nitrogen 19 mg/dL (9-16); C Reactive Protein 3.41 mg/dL (< or = 0.50); Calcium 9.2 mg/dL (8.4-10.2); Carbon Dioxide 37 mmol/L (22-29); Chloride 94 mmol/L (96-108); Estimated Glomerular Filt Rate 20; Glucose Random 78 mg/dL (60-115); Potassium 3.7 mmol/L (3.3-5.1); Sodium 140 mmol/L (135-145); Total Protein 7.5 g/dL (6.5-8.0)
[2024-08-25 12:01] LABS: Erythrocyte Sedimentation Rate 41 MM/HR (0-15)
--- OUTSIDE RECORDS SUMMARY | 2024-08-25 13:05 | XMS_ITS | Encounter Summary ---
Author Organization [facility] Address [address] [place] [address] Phone Care Team Providers Care Legislators Name Role Phone Steve Nguyen MD Primary Care Provider [phone] Encounter Details Date Type Department Care Team (Late st Contact Info) Description 07/31/2022 Documentation Only [facility] [address] [place] [address] Sahara Rousseau PA Social History Tobacco Use Types Packs/Day Years Used Date Smoking Tobacco: Former Cigarettes Q uit: 06/15/2011 Comments:Smoking History Inf o:Every day Alcohol Use Standard Drinks/Week Comments No 0 (1 standard drink = 0.6 oz pur e alcohol) Sex and Gender Information Value Date Recorded Sex Assigned at Not on file Legal Sex Male 4:35 PM EST Gender Identity Not on file Sexual Orientation Not on file COVID-19 Exposure Response Date Recorded In the last 10 days, have yo u been in contact with someone who was confirmed or suspected to have Coronavirus/COVID-19? No / Unsure 07/24/2022 11:16 AM EST documented as of this encounter Plan of Treatment Upcoming Encounters Date Type Department Care Team (Late st Contact Info) Description 10/28/2024 10:00 AM EDT Procedure visit [facility] [address] [place] [phone] documented as of this encounter Visit Diagnoses Not on filedocumented in this encounter Care Teams Legislators Relationship Specialty Start Date End Date Steve Nguyen MD [facility] [place] [address] [place] PCP - General 04/19/19 documented as of this encounter
--- OUTSIDE RECORDS SUMMARY | 2024-08-25 13:05 | XMS_ITS | Encounter Summary ---
Author Organization [facility] Address [address] [place] [address] Phone Care Team Providers Care Port Captain Name Role Phone Steve Nguyen MD Primary Care Provider [phone] Reason for Visit * Reason Comments Med Refill Encounter Details Date Type Department Care Team (Late Contact Info) Description 04/05/2023 Refill [facility] [address] [place] [address] Bakari Wells MD [address] [place] [address] [place] [phone] Social History Tobacco Use Types Packs/Day Years Used Date Smoking Tobacco: Former Cigarettes Q uit: 06/15/2011 Smokeless Tobacco: Never Comments:Smoking History Inf o:Every day Alcohol Use Standard Drinks/Week Comments No 0 (1 standard drink = 0.6 oz pur e alcohol) Sex and Gender Information Value Date Recorded Sex Assigned at Not on file Legal Sex Male 4:35 PM EST Gender Identity Not on file Sexual Orientation Not on file documented as of this encounter Plan of Treatment Upcoming Encounters Date Type Department Care Team (Late Contact Info) Description 10/28/2024 10:00 AM EDT Procedure visit [facility] [place] [address] [place] [address] [place] [phone] documented as of this encounter Visit Diagnoses Not on filedocumented in this encounter Care Teams Port Captain Relationship Specialty Start Date End Date Steve Nguyen MD [facility] [place] [address] [place] PCP - General 04/19/19 documented as of this encounter
--- OUTSIDE RECORDS SUMMARY | 2024-08-25 13:05 | XMS_ITS | Encounter Summary ---
Author Organization [facility] Address [address] [place] [address] Phone Care Team Providers Care Hand Collator Name Role Phone Steve Nguyen MD Primary Care Provider [phone] Encounter Details Date Type Department Care Team (Late Contact Info) Description 04/22/2022 Documentation Only [facility] [address] [place] [address] Sahara Rousseau PA Social History [...] suspected to have Coronavirus/COVID-19? No / Unsure 04/03/2022 10:39 AM EDT documented as of this encounter Plan of Treatment Upcoming Encounters Date Type Department Care Team (Late st Contact Info) Description 10/28/2024 10:00 AM EDT Procedure visit [facility] - [facility] [address] [place] [phone] documented as of this encounter Visit Diagnoses Not on filedocumented in this encounter Care Teams Hand Collator Relationship Specialty Start Date End Date Steve Nguyen MD [facility] [place] [address] [place] PCP - General 04/19/19 documented as of this encounter
--- OUTSIDE RECORDS SUMMARY | 2024-08-25 13:05 | XMS_ITS | Encounter Summary ---
Author Organization [facility] Address [address] [place] [address] Phone Care Team Providers Care Loan Specialist Name Role Phone Steve Nguyen MD Primary Care Provider [phone] Reason for Visit * Reason Comments Med Refill Encounter Details Date Type Department Care Team (Late st Contact Info) Description 05/10/2022 Refill [facility] [address] [place] [phone] Bakari Wells MD [address] [place] [address] Social History Tobacco Use Types Packs/Day Years [...] suspected to have Coronavirus/COVID-19? No / Unsure 05/07/2022 9:45 AM EST documented as of this encounter Plan of Treatment Upcoming Encounters Date Type Department Care Team (Late st Contact Info) Description 10/28/2024 10:00 AM EDT Procedure visit [facility] Access Center [address] [place] [address] documented as of this encounter Visit Diagnoses Not on filedocumented in this encounter Care Teams Loan Specialist Relationship Specialty Start Date End Date Steve Nguyen MD [facility] INTERNAL [address] [place], [place] PCP - General 04/19/19 documented as of this encounter
--- OUTSIDE RECORDS SUMMARY | 2024-08-25 13:05 | XMS_ITS | Encounter Summary ---
Author Organization [facility] Address [address] [place] [address] Phone Care Team Providers Care Agricultural Produce Washer Name Role Phone Steve Nguyen MD Primary Care Provider [phone] Encounter Details Date Type Department Care Team (Late st Contact Info) Description 05/22/2022 Documentation Only [facility] [address] [place] [address] Hermelinda Colunga [address] [place] [phone] Social History Tobacco Use Types Packs/Day Years [...] suspected to have Coronavirus/COVID-19? No / Unsure 05/19/2022 11:48 AM EST documented as of this encounter Plan of Treatment Upcoming Encounters Date Type Department Care Team (Late st Contact Info) Description 10/28/2024 10:00 AM EDT Procedure visit [facility] - [facility] Access Center [address] [place] [phone] documented as of this encounter Visit Diagnoses Not on filedocumented in this encounter Care Teams Agricultural Produce Washer Relationship Specialty Start Date End Date Steve Nguyen MD [address] [place] PCP - General 04/19/19 documented as of this encounter
--- OUTSIDE RECORDS SUMMARY | 2024-08-25 13:05 | XMS_ITS | Encounter Summary ---
Author Organization [facility] Address [address] [place] [address] Phone Care Team Providers Care Installer Interior Assemblies Name Role Phone Steve Nguyen MD Primary Care Provider [phone] Encounter Details Date Type Department Care Team (Late st Contact Info) Description 05/23/2021 Documentation Only [facility] [address] [place] [phone] Bakari Wells MD [address] [place] [address] [place] [phone] Social History Tobacco Use Types Packs/Day Years [...] visit [facility] Center [address] [place] [phone] documented as of this encounter Visit Diagnoses Not on filedocumented in this encounter Care Teams Installer Interior Assemblies Relationship Specialty Start Date End Date Steve Nguyen MD [address] [place] PCP - General 04/19/19 documented as of this encounter
--- OUTSIDE RECORDS SUMMARY | 2024-08-25 13:05 | XMS_ITS | Encounter Summary ---
Author Organization [facility] Address [address] [place] [address] Phone Care Team Providers Care Finger Waver Name Role Phone Steve Nguyen MD Primary Care Provider [phone] Encounter Details Date Type Department Care Team (Late st Contact Info) Description 03/24/2022 Documentation Only [facility] [address] [place] [address] Sahara Rousseau PA Social History [...] suspected to have Coronavirus/COVID-19? No / Unsure 03/24/2022 8:44 AM EDT documented as of this encounter Plan of Treatment Upcoming Encounters Date Type Department Care Team (Late st Contact Info) Description 10/28/2024 10:00 AM EDT Procedure visit [facility] - [facility] Access Center [address] [place] [phone] documented as of this encounter Visit Diagnoses Not on filedocumented in this encounter Care Teams Finger Waver Relationship Specialty Start Date End Date Steve Nguyen MD [facility] [place] [address] [place] PCP - General 04/19/19 documented as of this encounter
--- OUTSIDE RECORDS SUMMARY | 2024-08-25 13:05 | XMS_ITS | Encounter Summary ---
Author Organization [facility] Address [address] [place] [address] Phone Care Team Providers Care Post Doc Fellowship Name Role Phone Steve Nguyen MD Primary Care Provider [phone] Encounter Details Date Type Department Care Team (Late st Contact Info) Description 09/22/2022 Documentation Only [facility] [address] [place] [address] Sahara Rousseau PA Social History [...] suspected to have Coronavirus/COVID-19? No / Unsure 09/15/2022 9:31 AM EDT documented as of this encounter Plan of Treatment Upcoming Encounters Date Type Department Care Team (Late st Contact Info) Description 10/28/2024 10:00 AM EDT Procedure visit [facility] - [facility] Access Center [address] [place] [phone] documented as of this encounter Visit Diagnoses Not on filedocumented in this encounter Care Teams Post Doc Fellowship Relationship Specialty Start Date End Date Steve Nguyen MD [facility] [place] [address] [place] PCP - General 04/19/19 documented as of this encounter
--- OUTSIDE RECORDS SUMMARY | 2024-08-25 13:05 | XMS_ITS | Encounter Summary ---
Author Organization [facility] Address [address] [place] [address] Phone Care Team Providers Care Administration Manager Name Role Phone Steve Nguyen MD Primary Care Provider [phone] Encounter Details Date Type Department Care Team (Late st Contact Info) Description 05/21/2022 Documentation Only [facility] [address] [place] [address] Rory Leahy MD [address] [place] [address] Social History Tobacco Use Types [...] visit [facility] [place] - [facility] Access Center [address] [place] [address] documented as of this encounter Visit Diagnoses Not on filedocumented in this encounter Care Teams Administration Manager Relationship Specialty Start Date End Date Steve Nguyen MD [facility] INTERNAL [address] [place] PCP - General 04/19/19 documented as of this encounter
--- OUTSIDE RECORDS SUMMARY | 2024-08-25 13:05 | XMS_ITS | Encounter Summary ---
Author Organization [facility] Address [address] [place] [address] Phone Care Team Providers Care Farm Implement Mechanic Name Role Phone Steve Nguyen MD Primary Care Provider [phone] Reason for Visit * Reason Comments Med Refill Encounter Details Date Type Department Care Team ([facility] Contact Info) Description 04/01/2022 Refill [facility] [address] [facility] [address] [place] [address] Bakari Wells MD [address] [place] [address] [place] [address] Social History Tobacco Use Types [...] Upcoming Encounters Date Type Department Care Team ([facility] Contact Info) Description 10/28/2024 10:00 AM EDT Procedure visit [facility], - Vascular Access Center [address] [place] [address] documented as of this encounter Visit Diagnoses Not on filedocumented in this encounter Care Teams Farm Implement Mechanic Relationship Specialty Start Date End Date Steve Nguyen MD [facility] INTER[facility] [address] [place], [place] PCP - General 04/19/19 documented as of this encounter
--- OUTSIDE RECORDS SUMMARY | 2024-08-25 13:05 | XMS_ITS | Encounter Summary ---
Author Organization [facility] Address [address] [place] [address] Phone Care Team Providers Care Grant Writer Name Role Phone Steve Nguyen MD Primary Care Provider [phone] Encounter Details Date Type Department Care Team (Late st Contact Info) Description 05/21/2022 Documentation Only [facility] [address] [place] [address] Hermelinda Colunga [address] [place] [phone] Social History Tobacco Use Types Packs/Day [...] visit [facility] - [facility] Access Center [address] [place] [address] documented as of this encounter Visit Diagnoses Not on filedocumented in this encounter Care Teams Grant Writer Relationship Specialty Start Date End Date Steve Nguyen MD [address] [place] PCP - General 04/19/19 documented as of this encounter
--- OUTSIDE RECORDS SUMMARY | 2024-08-25 13:05 | XMS_ITS | Encounter Summary ---
Author Organization [facility] Address [address] [place] [address] Phone Care Team Providers Care Shingle Packer Name Role Phone Steve Nguyen MD Primary Care Provider [phone] Encounter Details Date Type Department Care Team (Late st Contact Info) Description 06/20/2022 Documentation Only [facility] [address] [place] [address] Hermelinda Colunga [address] [place] [phone] Social History Tobacco Use Types Packs/Day [...] suspected to have Coronavirus/COVID-19? No / Unsure 06/13/2022 9:00 AM EST documented as of this encounter Plan of Treatment Upcoming Encounters Date Type Department Care Team (Late st Contact Info) Description 10/28/2024 10:00 AM EDT Procedure visit [facility] - [facility] Access Center [address] [place] [phone] documented as of this encounter Visit Diagnoses Not on filedocumented in this encounter Care Teams Shingle Packer Relationship Specialty Start Date End Date Steve Nguyen MD [address] [place] PCP - General 04/19/19 documented as of this encounter
--- OUTSIDE RECORDS SUMMARY | 2024-08-25 13:05 | XMS_ITS | Continuity of Care Document ---
Author Organization [facility] Address [address] [place] [id number] Phone Care Team Providers Care Real Estate Recruiter Name Role Phone Lucio ANDERSEN, Norm Unavailable Unavailab le Allergies, Adverse Reactions, Alerts Substance Reaction Status Criticality No Known allergies Medications Medication Instructions Dosage Effective Dates (start - stop) Status Comments Proventil HFA 90 mcg/actuation Aerosol Inhaler inhale 2 puff by inhalation route four times a day as needed - Active meloxicam 7.5 mg Tab take 1 tablet (7.5MG) by oral route every day 7.5 MG - Active Hytrin 5 mg Cap take 1 capsule (5MG) by oral route every day - Active carvedilol 25 mg Tab take 1 tablet (25MG) by oral route 2 times every day with food 25 MG - Active Lotrel 10 mg-40 mg Cap take 1 capsule by oral route every day 1.00 capsule - Active Hyzaar 100 mg-12.5 mg Tab take 1 tablet by oral route every day 1.00 tablet - Active citalopram 40 mg Tab take 1 tablet (40MG) by oral route every day 40 MG - Active pravastatin 40 mg Tab take 1 tablet (40MG) by oral route every day 40 MG - Active METFORMIN HCL (unknown strength) take 1/2 tab a day by mouth Not Available - Active ASPIRIN (unknown strength) take 1 tablet by oral route every day Not Available - Active Procedures Procedure Date Ofc/Outpt Visit, Est, Level 3 2 Ofc/Outpt Visit, Est, Level 3 2 MUSC TEST DONE W/N TEST COMP MOTOR NERVE CONDUCTION TEST MOTOR NERVE CONDUCTION TEST SENSE NERVE CONDUCTION TEST OFFICE/OUTPATIENT VISIT, EST PSYTX, OFF, 45-50 MIN PSYTX, OFF, 45-50 MIN OFFICE/OUTPATIENT VISIT, EST PSY DX INTERVIEW OFFICE/OUTPATIENT VISIT, EST PREV VISIT, EST, AGE 40-64 Advance Directives Directive Yes / No Effective Date File Name No Information Encounters Encounter Description Practice Location Reason(s) For Visit Diagnoses Date Provider Providers Copied on Encounter [facility], [address] [place] [address], [address] [place] [address], tel:[phone] [facility] No Information 3 Lucio Zheng. [address] [facility], [id number] [place], [place], [address] [place] [address], . [phone] [facility], [address] [place] [address], [address] [place] [address], tel:[phone] [facility] No Information 2 Lucio Zheng. [address] [facility], [id number] [place], [place], [address] [place] [address], . tel:[phone] Ofc/Outpt Visit, Est, Level 3 [facility], [address] [place] [address], [address] [place] [address], tel:[phone] [facility] spinal stenosis (chief complaint) neuropathy (chief complaint) Spinal stenosisPerip heral neuropathy 2 Lucio Zheng. [address] [facility], [id number] [place], [place], [address] [place] [address], . tel:[phone] Referring Provider: Norm Michel i, [address] [place] [address] [id number] [place], [address] . tel:[phone] [facility], [address] [place] [address], [id number], [place] tel:[phone] Int Med [facility] No Information 2 Lucio Zheng. [address], [id number] [place], [id number], [place]. tel:[phone] [facility], [address] [place] [address], [id number], [place] tel:[phone] Neurology No Information 2 Betofloridalma Shaheed. [address], [place], [address]. tel:[phone] Referring Provider: Shaheed Lopez, [address], [place], [address]. tel:[phone] OFFICE/OUTPA TIENT VISIT, [facility], [address] [place] [address], [id number], [place] tel:[phone] Int Med [facility] No Information 2 Lucio Zheng. [address], [id number] [place], [place], [id number], [place]. tel:[phone] Referring Provider: Norm Michel i, [address] [place] [address] [id number] [place], [address] . tel:[phone] [facility], [address] [place] [address], [id number], [place] tel:[phone] [facility] No Information 2 Matias Manjarrez. [address], [place], [id number], [place]. tel:[phone] Referring Provider: Loki Salcedo, [address], [place], [address] . tel:[phone] [facility], [address] [place] [address], [id number], [place] tel:[phone] Neurosciences [facility] No Information 2 Matias Manjarrez. [address], [place], [place], [id number], [place]. tel:[phone] Referring Provider: Loki Salcedo, [address] , [place], [address] . tel:[phone] OFFICE/OUTPA TIENT VISIT, [facility], [address] [place] [address], [id number], [place] tel:[phone] [facility] No Information 2 Lucio Zheng. [address], [id number] [place], [place], [id number], [place]. tel:[phone] Referring Provider: Norm Michel i, [address] [id number], [place], [address] . tel:[phone] [facility], [address] [place] [address], [id number], [place] tel:[phone] [facility] No Information 2 Matias Loki. [address] , [place], [place], [id number], [place]. tel:[phone] Referring Provider: Loki Salcedo, [address], [place], [address] . tel:[phone] OFFICE/OUTPA TIENT VISIT, [facility], [address] [place] [address], [id number], [place] tel:[phone] [facility] No Information 1 Lucio Zheng. [address], [id number] [place], [place], [id number], [place]. tel:[phone] Referring Provider: Norm Michel i, [address] [id number], [place], [address] . tel:[phone] PREV VISIT, EST, AGE 40-64 [facility], [address] [place] [address], [id number], [place] tel:[phone] [facility] No Information Lucio Zheng. [address] [place] [address], [id number] , [place], [place], [id number], . tel:[phone] Referring Provider: Norm Michel i, [address] [place] [address] [id number], [place], [address] . tel:[phone] Family History Family Member Type Diagnosis Age At Onset Father Problem (finding) prostate cancer Payers Payer name Insurance type Covered green party ID Arley perry(s) [facility] [id number] Social History Type Description Quantity Date Captured Comments Sex Male Smoking Status No Information Chief Complaint And Reason For Visit No Information Reason For Referral Reason For Referral No Information History Of Present Illness Encounter Date Complaint History Of Prese nt Illness No Information Functional Status Date Functional Assessmen t No Information Instructions Date Instruction Additional Infor mation No Information Assessments Type Assessment Date No Information Patient Care Teams Name Effective Dates (start - stop) Status Members No Information
--- OUTSIDE RECORDS SUMMARY | 2024-08-25 13:05 | XMS_ITS | Clinical Summary ---
Author Organization [facility], Address [address] [place] [address] Phone Care Team Providers Care Territory Service Representative Name Role Phone Steve Nguyen MD Primary Care Provider [phone] Allergies Active Allergy Reactions Criticality Noted Date Comments Ferumoxytol Other (see comments) High 04/02/2021 Chest pain, chills Other reaction(s): Other (see comments) Chest pain, chills Medications isosorbide mononitrate (IMDUR) 30 MG 24 hr tablet Take 30 mg by mouth 1 (one) time each day 2 Active Vitamin D, Ergocalciferol, 86005 units capsule Take 1 capsule by mouth 2 Active acetaminophen (TYLENOL) 500 MG tablet Take by mouth every 6 (six) hours if needed for mild pain Active albuterol HFA (PROVENTIL HFA;VENTOLIN HFA) 108 (90 Base) MCG/ACT inhaler Inhale 2 puffs every 6 (six) hours if needed for wheezing Active amLODIPine (NORVASC) 5 MG tablet Take 5 mg by mouth 1 (one) time each day Active sevelamer carbonate (RENVELA) 800 MG tablet Take 800 mg by mouth in the morning and 800 mg at noon and 800 mg in the evening. Take with meals. Swallow tablet whole; do not crush, break, or chew.. Active pravastatin (PRAVACHOL) 20 MG tablet Take 20 mg by mouth 1 (one) time each day Active apixaban (Eliquis) 5 MG tablet Take 5 mg by mouth in the morning and 5 mg in the evening. Active hydroxychloroqui ne (PLAQUENIL) 200 MG tablet Take by mouth 1 (one) time each day Active metoprolol succinate XL (TOPROL XL) 25 MG 24 hr tablet Take 25 mg by mouth 1 (one) time each day Do not crush or chew. Active midodrine (PROAMATINE) 5 MG tablet TAKE 1 TABLET BY MOUTH IN MORNING BEFORE DIALYSIS ONLY ON DIALYSIS DAY 90 tablet 2 4 Active epoetin gaby (EPOGEN,PROCRIT) 46169 UNIT/ML injection Inject 10,000 Units under the skin 2 (two) times a week 4 Active predniSONE 10 MG (21) tablet therapy pack PLEASE SEE ATTACHED FOR DETAILED DIRECTIONS Oral for 28 Active gabapentin (NEURONTIN) 300 MG capsule Take 300 mg by mouth in the morning. 4 Active SILVER EX Apply 1 Application topically 4 Active traMADol (ULTRAM) 50 MG tablet Take 50 mg by mouth in the morning. 4 Active vancomycin 750-5 MG/150ML-% IVPB Infuse 750 mg into a venous catheter 3 (three) times a week 4 Active terazosin (HYTRIN) 5 MG capsule 1 capsule 1 (one) time each day at the same time Active losartan (COZAAR) 100 MG tablet Take 100 mg by mouth 1 (one) time each day at the same time Active furosemide (LASIX) 80 MG tablet Take 80 mg by mouth in the morning and 80 mg in the evening. Active ferrous sulfate 325 (65 Fe) MG tablet Take 325 mg by mouth 1 (one) time each day with breakfast Active ciclopirox (LOPROX) 0.77 % cream Apply 1 application. topically 1 (one) time each day 4 Active cefepime (MAXIPIME) 1 g injection Infuse 1 g into a venous catheter 3 (three) times a week 4 Active Active Problems Problem Noted Date Diagnosed Date Pneumonia 04/12/2024 Pacemaker status 08/20/2023 Occlusion and stenosis of bilateral carotid gagan moreno 06/09/2023 Congestive heart failure 03/09/2023 Lupus erythematosus 03/09/2023 Obese class I 09/15/2022 Stage 5 chronic kidney disease 07/29/2022 Anemia in chronic kidney disease 06/24/2022 Hypervolemia 06/24/2022 Essential (primary) hypertension 06/24/2022 Atrial fibrillation 06/03/2022 Chronic obstructive pulmonary disease 06/03/2022 Osteoarthritis 06/03/2022 Chronic depression 06/03/2022 Gastroesophageal reflux disease 06/03/2022 Hyperphosphatemia 03/24/2022 Iron deficiency anemia 11/21/2020 Gout 08/23/2019 Hyperparathyroidism due to renal insufficiency 0 08/23/2019 Renal disorder due to type 2 diabetes mellitus 0 08/23/2019 Resolved Problems Problem Noted Date Diagnosed Date Resolved Date Anemia 06/03/2022 07/28/2022 Hyperuricemia 04/29/2022 07/28/2022 Screening for malignant neoplasm of colon 11/18/2021 07/28/2022 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 Disorder of carotid artery 09/01/2017 0 11/20/2020 Overview (08/23/2019): 08/2017 CAROTID Cresencio LESS THAN 50% Last Assessment & Plan: Mild disease a year and a half ago. Would consider repeat in another year. Essential hypertension 09/01/201711/20 Overview (08/23/2019): Last Assessment & Plan: Fair control today. No changes. Hyperlipidemia 09/01/2017 11/20/2020 Overview (08/23/2019): Last Assessment & Plan: Statin is unchanged but he has not had his labs drawn. He is agreed to have that done shortly. Venous insufficiency 09/01/2017 021 Overview (08/23/2019): Last Assessment & Plan: Markedly improved. Encounters Date Type Department Care Team Description 08/23/2024 Treatment [facility] [address] [address] Ezequiel Reyes MD End stage renal disease; Dependence on renal dialysis 08/16/2024 Treatment [facility] [address] [address] Ezequiel Reyes MD End stage renal disease; Dependence on renal dialysis 08/11/2024 Treatment [facility] [address] [address] Ezequiel Reyes MD 08/09/2024 Treatment [facility] [address] [address] Ezequiel Reyes MD 08/01/2024 Telephone [facility] [address] [place] [address] [place] [address] Sylvie Daniel post op call 07/30/2024 Treatment [facility] [address] [address] Ezequiel Reyes MD 07/29/2024 11:00 AM EST Procedure visit [facility] [address] [place] [address] [place] [address] Milton Stone MD End stage renal disease (HCC) (Primary Dx); Stenosis of other vascular prosthetic devices, implants and grafts, initial encounter (HCC) 07/28/2024 Telephone [facility] [address] [place] [address] [place] [address] Pamela Cespedes 07/28/2024 Telephone [facility] [address] [place] [address] [address] [place] [address] Pamela Cespedes 07/19/2024 Treatment [facility] [address] [address] Ezequiel Reyes MD 07/07/2024 Treatment [facility] [address] [address] Ezequiel Reyes MD 06/30/2024 Treatment [facility] [address] [address] Ezequiel Reyes MD 06/23/2024 Treatment [facility] [address] [address] Arvind Avila MD 06/16/2024 Treatment [facility] [address] [address] Ezequiel Reyes MD 06/09/2024 Treatment [facility] [address] [address] Ezequiel Reyes MD 06/04/2024 Treatment [facility] [address] [address] Ezequiel Reyes MD 05/31/2024 Treatment [facility] [address] [address] Ezequiel Reyes MD from Last 3 Months Immunizations Name Administration Dates Next Due H1N1 Inj 05/28/2016 Hepatitis B 06/19/2021,03/21/2021,12/19/2020 Influenza Split High Dose Pr eservative Free IM 04/28/2019,05/03/2018,03/30/2015 Influenza, MDCK, Quadrivalen t, with preservative 03/28/2021 Influenza, Quadrivalent, With Preservative 03/30,05/12/2016 Influenza, Unspecified 03/26/2021,05/06/2017 Pfizer SARS-COV-2 10/18/2020,09/27/2020 Pneumococcal Polysaccharide 01/28/2018, 4,05/04/2012 Family History Medical History Relation Comments Cancer Father Heart disease Mother Diabetes Sibling 1 Hypertension Sibling 2 Relation Status Comments Father Unknown Mother Sibling 1 Sibling 2 Social History Tobacco Use Types Packs/Day Years Used Date Smoking Tobacco: Former Cigarettes Q uit: 06/15/2011 Smokeless Tobacco: Never Tobacco Cessation:Counseling Given: Not Answered Comments:Smoking History Info:Every day Alcohol Use Standard Drinks/Week Comments No 0 (1 standard drink = 0.6 oz pur e alcohol) Sex and Gender Information Value Date Recorded Sex Assigned at Not on file Legal Sex Male 4:35 PM EST Gender Identity Not on file Sexual Orientation Not on file Last Filed Vital Signs Vital Sign Reading Time Taken Comments Blood Pressure 120/50 07/29/2024 10:14 AM EST Pulse 82 07/29/2024 10:14 AM EST Temperature 36.2 ??C (97.2 ??F) 07/29/2024 10:[address] Respiratory Rate 16 05/05/2024 12:03 PM EST Oxygen Saturation 97% 07/29/2024 10:14 AM EST Inhaled Oxygen Concentration - - Weight 105 kg (231 lb 7.7 oz) 07/29/2024 10:14 A M EST Height 177.8 cm (5' 10 ) 07/29/2024 10:14 AM EST Body Mass Index 33.21 07/29/2024 10:14 AM EST Plan of Treatment Upcoming Encounters Date Type Department Care Team (Late st Contact Info) Description 10/28/2024 10:00 AM EDT Procedure visit [facility] [address] [place] [address] [place] [address] Health Maintenance Due Date Last Done Comments Hepatitis B Vaccine (1 of 5 - Risk Dialysis 4-dose series) 1975 05/28/2023, 01/22/2023, 12/25/2022, Additional history exists Colorectal Cancer Screening: Annual FOBT 2002 Colorectal Cancer Screening: Colonoscopy 2002 Colorectal Cancer Screening: Sigmoidoscopy 2002 Pneumococcal Vaccine: 65+ Ye ars (3 of 3 - PCV) 01/28/2019 01/28/2018, 12/13/2013, 05/04/2012 Diabetes: Ophthalmology Exam 08/23/2019 Diabetes: Pedal Pulse Checked 08/23/2019 Diabetes: Sensory Foot Exam 08/23/2019 Diabetes: Visual Foot Exam 08/23/2019 Influenza Vaccine (#1) 2024 1, 03/26/2021, 04/28/2019, Additional history exists Diabetes: Hemoglobin A1C 09/21/2024 025, 08/05/2022, 08/13/2021, Additional history exists Procedures Procedure Name Priority Date/Time Associated Diagnosis Comments LIH (HC) Routine 08/20/2024 3:00 AM EST COLLECTION DATE () Routine 08/20/2024 3:00 AM EST KT/V NATURAL LOG, URR (HC) Routine 08/20/2024 3:00 AM EST TRANSFERRIN SATURATION Routine 3:00 AM EST PROTEIN, TOTAL, SERUM Routine 08/18/2024 3:00 AM EST MAGNESIUM Routine 08/18/2024 3:00 AM EST ELECTROLYTE PANEL Routine 08/18/2024 3:0 0 AM EST LIH (HC) Routine 08/18/2024 3:00 AM EST LACTATE DEHYDROGENASE Routine 08/18/2024 3:00 AM EST BILIRUBIN, TOTAL Routine 08/18/2024 3:00 AM EST CREATININE, SERUM Routine 08/18/2024 3:0 0 AM EST GLUCOSE, RANDOM Routine 08/18/2024 3:00 AM EST ALT Routine 08/18/2024 3:00 AM EST AST Routine 08/18/2024 3:00 AM EST CALCIUM PHOSPHORUS PRODUCT, ADJUSTED (HC) Routine 08/18/2024 3:00 AM EST ALKALINE PHOSPHATASE Routine 08/18/2024 3:00 AM EST HEPATITIS B SURFACE ANTIGEN W/REFL CONFIRM Routine 08/18/2024 3:00 AM EST FERRITIN Routine 08/18/2024 3:00 AM EST KT/V NATURAL LOG, URR (HC) Routine 08/18/2024 3:00 AM EST CBC AND DIFFERENTIAL Routine 08/18/2024 3:00 AM EST POTASSIUM Routine 08/09/2024 3:00 AM EST LIH (HC) Routine 08/09/2024 3:00 AM EST HEMOGLOBIN Routine 08/04/2024 3:00 AM EST POTASSIUM Routine 08/02/2024 3:00 AM EST LIH (HC) Routine 08/02/2024 3:00 AM EST COLLECTION DATE (HC) Routine 08/02/2024 3:00 AM EST TRANSFERRIN SATURATION Routine 3:00 AM EST LIH (HC) Routine 07/21/2024 3:00 AM EST MAGNESIUM Routine 07/21/2024 3:00 AM EST PROTEIN, TOTAL, SERUM Routine 07/21/2024 3:00 AM EST ELECTROLYTE PANEL Routine 07/21/2024 3:0 0 AM EST LACTATE DEHYDROGENASE Routine 07/21/2024 3:00 AM EST GLUCOSE, RANDOM Routine 07/21/2024 3:00 AM EST CREATININE, SERUM Routine 07/21/2024 3:0 0 AM EST AST Routine 07/21/2024 3:00 AM EST BILIRUBIN, TOTAL Routine 07/21/2024 3:00 AM EST ALT Routine 07/21/2024 3:00 AM EST ALKALINE PHOSPHATASE Routine 07/21/2024 3:00 AM EST CALCIUM PHOSPHORUS PRODUCT, ADJUSTED (HC) Routine 07/21/2024 3:00 AM EST CBC AND DIFFERENTIAL Routine 07/21/2024 3:00 AM EST HEPATITIS B SURFACE ANTIGEN W/REFL CONFIRM Routine 07/21/2024 3:00 AM EST FERRITIN Routine 07/21/2024 3:00 AM EST KT/V NATURAL LOG, URR (HC) Routine 07/21/2024 3:00 AM EST POTASSIUM Routine 07/21/2024 POTASSIUM Routine 07/07/2024 3:00 AM EST LIH (HC) Routine 07/07/2024 3:00 AM EST HEMOGLOBIN AND HEMATOCRIT, BLOOD Routine 07/07/2024 3:00 AM EST PHOSPHATE ( PHOSPHORUS) Routine 07/05/2024 3:00 AM EST LIH (HC) Routine 07/05/2024 3:00 AM EST POTASSIUM Routine 06/30/2024 3:00 AM EST LIH (HC) Routine 06/30/2024 3:00 AM EST ALUMINUM LEVEL Routine 06/23/2024 3:00 AM EST HEMOGLOBIN A1C Routine 06/23/2024 3:00 AM EST FERRITIN Routine 06/23/2024 3:00 AM EST HEPATITIS C ABS W/REFLEX RNA DETECTR Routine 06/23/2024 3:00 AM EST CONFIRMATION TEST HCV Routine 06/23/2024 3:00 AM EST HEPATITIS B SURFACE ANTIGEN W/REFL CONFIRM Routine 06/23/2024 3:00 AM EST URIC ACID Routine 06/23/2024 3:00 AM EST TRANSFERRIN SATURATION Routine 3:00 AM EST PROTEIN, TOTAL, SERUM Routine 06/23/2024 3:00 AM EST ELECTROLYTE PANEL Routine 06/23/2024 3:0 0 AM EST MAGNESIUM Routine 06/23/2024 3:00 AM EST LIPID PANEL Routine 06/23/2024 3:00 AM EST LIH (HC) Routine 06/23/2024 3:00 AM EST LACTATE DEHYDROGENASE Routine 06/23/2024 3:00 AM EST GLUCOSE, RANDOM Routine 06/23/2024 3:00 AM EST BILIRUBIN, TOTAL Routine 06/23/2024 3:00 AM EST CREATININE, SERUM Routine 06/23/2024 3:0 0 AM EST AST Routine 06/23/2024 3:00 AM EST ALT Routine 06/23/2024 3:00 AM EST ALKALINE PHOSPHATASE Routine 06/23/2024 3:00 AM EST CALCIUM PHOSPHORUS PRODUCT, ADJUSTED (HC) Routine 06/23/2024 3:00 AM EST PTH, INTACT Routine 06/23/2024 3:00 AM EST HEPATITIS B SURFACE ANTIBODY QUANT Routine 06/23/2024 3:00 AM EST KT/V NATURAL LOG, URR (HC) Routine 06/23/2024 3:00 AM EST CBC AND DIFFERENTIAL Routine 06/23/2024 3:00 AM EST LIH (HC) Routine 06/02/2024 3:00 AM EST PHOSPHATE ( PHOSPHORUS) Routine 06/02/2024 3:00 AM EST HEMOGLOBIN AND HEMATOCRIT, BLOOD Routine 06/02/2024 3:00 AM EST ALUMINUM LEVEL Routine 05/28/2024 3:00 AM EST HEPATITIS B SURFACE ANTIBODY QUANT Routine 05/28/2024 3:00 AM EST POTASSIUM Routine 05/28/2024 3:00 AM EST LIH (HC) Routine 05/28/2024 3:00 AM EST HEMOGLOBIN AND HEMATOCRIT, BLOOD Routine 05/28/2024 3:00 AM EST COLLECTION DATE (HC) Routine 05/28/2024 3:00 AM EST from Last 3 Months Results * Collection Date (08/20/2024 3:00 AM EST) Only the most recent of3 resultswithin the time period is included. Collection Date See Comment [facility] Comment: Patient sample received may exceed specimen stability, based on the collection date electronically provided. ??When reviewing patient results, verify collection information and consider specimen stability before acting on any critical or panic results. 08/20/2024 3:00 AM EST us Ezequiel Reyes MD LAB HISTORICA [id number] RESULTS Final Result [facility] [address] [place] [address] * LIH (08/20/2024 3:00 AM EST) Only the most recent of11 resultswithin the time period is included. Lipemia Normal Normal [facility] Icterus Normal Normal [facility] Hemolysis Normal Normal [facility] 08/20/2024 3:00 AM EST 08/23/2024 2:08 PM EDT Ezequiel Reyes MD LAB HISTORICA [id number] RESULTS Final Result [facility] [address] [place] [address] * (ABNORMAL) Kt/V Natural Log, URR (08/20/2024 3:00 AM EST) Only the most recent of4 resultswithin the time period is included. Treatment Time 239 min [facility] Pre-Weight, lb 106.3 kg [facility] Post-Weight, lb 103.5 kg [facility] Ultrafiltration Rate 7 <=13 mL/kg/hr [facility] Comment: Recommend achieving Ultrafiltration Rate (UFR) <=10 mL/kg/hr References: Maria M TAFOYA et al. Kidney Int. 2010; 79(2):250-257 BUN Post Dialysis 19 7 - 25 mg/dL [facility] BUN 52(H) 7 - 25 mg/dL [facility] UREA REDUCTION RATIO (%) 63(L) >=65 % [facility] Kt/V Natural Log 1.17(L) >=1.2 [facility] 08/20/2024 3:00 AM EST 08/23/2024 12:34 PM EDT Ezequiel Reyes MD LAB HISTORICA [id number] RESULTS Final Result Performing Organization Address [facility] Co de Phone Number [facility] [address] [place] [address] * (ABNORMAL) Calcium Phosphorus Product, Adjusted (08/18/2024 3:00 AM EST) Only the most recent of3 resultswithin the time period is included. Albumin 4.3 3.6 - 5.4 g/dL [facility] Calcium 9.4 8.6 - 10.3 mg/dL [facility] Phosphorus, Serum 8.5(H) 2.5 - 5.0 mg/dL [facility] Ca*PO4 79.9(A) <55.0 mg2/dL2 [facility] Calcium, Adjusted Total 9.4 8.6 - 10.3 mg/dL [facility] CA*PO4 CORRCTD 79.9(A) <55.0 mg2/dL2 [facility] 08/18/2024 3:00 AM EST 08/19/2024 2:01 PM EST Ezequiel Reyes MD LAB HISTORICA [id number] RESULTS Final Result Performing Organization Address City/[facility] Co de Phone Number [facility] [address] [place] [address] * Hepatitis B Surface Ag w/Reflex Confirmation (08/18/2024 3:00 AM EST) Only the most recent of3 resultswithin the time period is included. Pathologist [facility] Hep B Surface Antigen Negative Negative [facility] 08/18/2024 3:00 AM EST 08/19/2024 2:01 PM EST us Ezequiel Reyes MD LAB BLOOD ORDERABLES Final Result Performing Organization Address [facility] Co de Phone Number [facility] [address] [place] [address] * (ABNORMAL) TSAT (08/18/2024 3:00 AM EST) Only the most recent of3 resultswithin the time period is included. Pathologist [facility] Iron 74 65 - 175 ug/dL [facility] Transferrin 165(L) 215 - 365 mg/dL [facility] TIBC 231 211 - 406 ug/dL [facility] Iron Saturation (TSat) 32 22 - 52 % [facility] 08/18/2024 3:00 AM EST 08/19/2024 2:01 PM EST us Ezequiel Reyes MD LAB BLOOD ORDERABLES Final Result Performing Organization Address [facility] Co de Phone Number [facility] [address] [place] [address] * (ABNORMAL) CBC and Differential (08/18/2024 3:00 AM EST) Only the most recent of3 resultswithin the time period is included. Pathologist [facility] DIFFERENTIAL MANUAL, 2 Not Indicated [facility] White Blood Cells 4.9 4.2 - 9.1 K/uL [facility] RBC 3.09(L) 4.63 - 6.08 M/uL [facility] Hgb 10.7(L) 13.7 - 17.5 g/dL [facility] Hemoglobin x 3 32.1(L) 41.1 - 52.5 g/dL [facility] Hematocrit 31.6(L) 40.1 - 51.0 % [facility] MCV 102.3(H) 79.0 - 92.2 fL [facility] MCH 34.6(H) 25.7 - 32.2 pg [facility] MCHC 33.9 32.3 - 36.5 g/dL [facility] Platelets 135(L) 163 - 337 K/uL [facility] RDW 14.6(H) 11.6 - 14.4 % [facility] Neutrophils Relative 70.6(H) 34.0 - 67.9 % [facility] Lymphocytes Relative 14.5(L) 21.8 - 53.1 % [facility] Monocytes 12.3(H) 5.3 - 12.2 % [facility] Eosinophils Relative 0.8 0.8 - 7.0 % [facility] Basophils Relative 1.4(H) 0.2 - 1.2 % [facility] Immature Granulocytes 0.4 0.0 - 1.0 % [facility] 08/18/2024 3:00 AM EST 08/19/2024 1:57 PM EST Ezequiel Reyes MD LAB BLOOD ORDERABLES Final Result Performing Organization Address City/[facility]/ZIP Co de Phone Number [facility] [address] [place] [address] * ALT (08/18/2024 3:00 AM EST) Only the most recent of3 resultswithin the time period is included. ALT (SGPT) 14 10 - 49 U/L [facility] 08/18/2024 3:00 AM EST 08/19/2024 2:01 PM EST Ezequiel Reyes MD LAB BLOOD ORDERABLES Final Result Performing Organization Address City/[facility] Co de Phone Number [facility] [address] [place] [address] * AST (08/18/2024 3:00 AM EST) Only the most recent of3 resultswithin the time period is included. AST (SGOT) 22 <34 U/L [facility] 08/18/2024 3:00 AM EST 08/19/2024 2:01 PM EST us Ezequiel Reyes MD LAB BLOOD ORDERABLES Final Result Performing Organization Address [facility] de Phone Number [facility] [address] [place] [address] * Protein, total (08/18/2024 3:00 AM EST) Only the most recent of3 resultswithin the time period is included. Total Protein 7.0 6.4 - 8.9 g/dL [facility] 08/18/2024 3:00 AM EST 08/19/2024 2:01 PM EST us Ezequiel Reyes MD LAB BLOOD ORDERABLES Final Result Performing Organization Address [facility] de Phone Number [facility] [address] [place] [address] * (ABNORMAL) Alkaline phosphatase (08/18/2024 3:00 AM EST) Only the most recent of3 resultswithin the time period is included. Alkaline Phosphatase 162(H) 46 - 116 U/L [facility] 08/18/2024 3:00 AM EST 08/19/2024 2:01 PM EST us Ezequiel Reyes MD LAB BLOOD ORDERABLES Final Result Performing Organization Address [facility] de Phone Number [facility] [address] [place] [address] * Magnesium (08/18/2024 3:00 AM EST) Only the most recent of3 resultswithin the time period is included. Magnesium 2.2 1.9 - 2.7 mg/dL [facility] 08/18/2024 3:00 AM EST 08/19/2024 2:01 PM EST us Ezequiel Reyes MD LAB BLOOD ORDERABLES Final Result Performing [facility] Co de Phone Number [facility] [address] [place] [address] * (ABNORMAL) Lactate dehydrogenase (08/18/2024 3:00 AM EST) Only the most recent of3 resultswithin the time period is included. LDH 292(H) 120 - 246 U/L [facility] 08/18/2024 3:00 AM EST 08/19/2024 2:01 PM EST Ezequiel Reyes MD LAB BLOOD ORDERABLES Final Result Performing Organization Address [facility] de Phone Number [facility] [address] [place] [address] * Glucose, random (08/18/2024 3:00 AM EST) Only the most recent of3 resultswithin the time period is included. Glucose 93 74 - 109 mg/dL [facility] 08/18/2024 3:00 AM EST 08/19/2024 2:01 PM EST Ezequiel Reyes MD LAB BLOOD ORDERABLES Final Result Performing Organization Address [facility] de Phone Number [facility] [address] [place] [address] * (ABNORMAL) Ferritin (08/18/2024 3:00 AM EST) Only the most recent of3 resultswithin the time period is included. Ferritin 1,541(H) 22 - 322 ng/mL [facility] 08/18/2024 3:00 AM EST 08/19/2024 2:01 PM EST Ezequiel Reyes MD LAB BLOOD ORDERABLES Final Result Performing Organization Address [facility] Co de Phone Number [facility] [address] [place] [address] * (ABNORMAL) Creatinine, serum (08/18/2024 3:00 AM EST) Only the most recent of3 resultswithin the time period is included. Creatinine 6.29(H) 0.70 - 1.30 mg/dL [facility] 08/18/2024 3:00 AM EST 08/19/2024 2:01 PM EST Ezequiel Reyes MD LAB BLOOD ORDERABLES Final Result Performing Organization Address [facility] Co de Phone Number [facility] [address] [place] [address] * Bilirubin, total (08/18/2024 3:00 AM EST) Only the most recent of3 resultswithin the time period is included. Total Bilirubin 0.7 0.3 - 1.2 mg/dL [facility] 08/18/2024 3:00 AM EST 08/19/2024 2:01 PM EST Ezequiel Reyes MD LAB BLOOD ORDERABLES Final Result Performing Organization Address [facility] de Phone Number [facility] [address] [place] [address] * (ABNORMAL) Electrolyte panel (08/18/2024 3:00 AM EST) Only the most recent of3 resultswithin the time period is included. Sodium 135(L) 136 - 145 mEq/L [facility] Potassium 4.2 3.4 - 5.0 mEq/L [facility] Chloride 94(L) 98 - 107 mEq/L [facility] Bicarbonate (CO2) 26 21 - 31 mEq/L [facility] Anion Gap 15(H) 3 - 14 mEq/L [facility] 08/18/2024 3:00 AM EST 08/19/2024 2:01 PM EST Ezequiel Reyes MD LAB BLOOD ORDERABLES Final Result Performing Organization Address [facility] Co de Phone Number [facility] [address] [place] [address] * Potassium (08/09/2024 3:00 AM EST) Only the most recent of6 resultswithin the time period is included. Potassium 4.3 3.4 - 5.0 mEq/L [facility] 08/09/2024 3:00 AM EST 08/10/2024 12:55 PM EST Ezequiel Reyes MD LAB BLOOD ORDERABLES Final Result Performing Organization Address City/[facility] de Phone Number [facility] [address] [place] [address] * (ABNORMAL) Hemoglobin (08/04/2024 3:00 AM EST) Hgb 11.0(L) 13.7 - 17.5 g/dL [facility] Hemoglobin x 3 33.0(L) 41.1 - 52.5 g/dL [facility] 08/04/2024 3:00 AM EST 08/05/2024 12:51 PM EST Ezequiel Reyes MD LAB BLOOD ORDERABLES Final Result Performing Organization Address [facility] de Phone Number [facility] [address] [place] [address] * (ABNORMAL) Hemoglobin and hematocrit (07/07/2024 3:00 AM EST) Only the most recent of3 resultswithin the time period is included. Hgb 10.2(L) 13.7 - 17.5 g/dL [facility] Hematocrit 31.7(L) 40.1 - 51.0 % [facility] Hemoglobin x 3 30.6(L) 41.1 - 52.5 g/dL [facility] 07/07/2024 3:00 AM EST 07/08/2024 12:53 PM EST us Ezequiel Reyes MD LAB BLOOD ORDERABLES Final Result Performing Organization Address City/[facility] de Phone Number [facility] [address] [place] [address] * (ABNORMAL) Phosphorus (07/05/2024 3:00 AM EST) Only the most recent of2 resultswithin the time period is included. Pathologist [facility] Phosphorus, Serum 8.0(H) 2.5 - 5.0 mg/dL [facility] 07/05/2024 3:00 AM EST 07/06/2024 2:08 PM EST Ezequiel Reyes MD LAB BLOOD ORDERABLES Final Result Performing Organization Address [facility] de Phone Number [facility] [address] [place] [address] * Confirmation Test HCV (06/23/2024 3:00 AM EST) [facility] Hep C Ab Confirmation Not needed [facility] 06/23/2024 3:00 AM EST 06/25/2024 12:30 PM EST Ezequiel Reyes MD LAB BLOOD ORDERABLES Final Result Performing Organization Address [facility] de Phone Number [facility] [address] [place] [address] * HEPATITIS C ABS W/REFLEX RNA DETECTR (06/23/2024 3:00 AM EST) [facility] Hep C Virus Ab Non-Reacti ve Non-Reacti ve [facility] 06/23/2024 3:00 AM EST 06/25/2024 12:41 PM EST Ezequiel Reyes MD LAB HISTORICA [id number] RESULTS Final Result Performing Organization Address [facility] de Phone Number [facility] [address] [place] [address] * Aluminum level (06/23/2024 3:00 AM EST) Only the most recent of2 resultswithin the time period is included. [facility] Aluminum 7 1 - 20 ug/L [facility] 06/23/2024 3:00 AM EST 06/25/2024 12:38 PM EST us Ezequiel Reyes MD LAB BLOOD ORDERABLES Final Result Performing Organization Address [facility] de Phone Number [facility] [address] [place] [address] * (ABNORMAL) Hepatitis B Surface Antibody (06/23/2024 3:00 AM EST) Only the most recent of2 resultswithin the time period is included. Hep B Surface Antibody <4(A) mIU/mL [facility] Comment: Interpretation: <10: No Immunity >=10: Probable Immunity 06/23/2024 3:0 0 AM EST 06/25/2024 12:41 PM EST us Ezequiel Reyes MD LAB BLOOD ORDERABLES Final Result Performing Organization Address [facility] de Phone Number [facility] [address] [place] [address] * Uric Acid (06/23/2024 3:00 AM EST) Uric Acid 6.5 4.4 - 7.6 mg/dL [facility] 06/23/2024 3:00 AM EST 06/25/2024 12:41 PM EST us Ezequiel Reyes MD LAB BLOOD ORDERABLES Final Result Performing Organization Address [facility] de Phone Number [facility] [address] [place] [address] * PTH, Intact (06/23/2024 3:00 AM EST) PTH, Intact 362 160 - 721 pg/mL [facility] Comment: Suggested (KDIGO) ESRD maintenance range is two to nine times the upper normal limit (80.1 pg/mL) for the laboratory. 06/23/2024 3:00 AM EST 06/25/2024 12:41 PM EST Ezequiel Reyes MD LAB BLOOD ORDERABLES Final Result Performing Organization Address [facility] de Phone Number [facility] [address] [place] [address] * Hemoglobin A1c (06/23/2024 3:00 AM EST) Hemoglobin A1C 4.4 <5.7 % [facility] Comment: Methodology: Ion-exchange high-performance liquid chromatography (HPLC) HbA1c (NGSP %) ?Suggested Diagnosis >6.4% ? Diabetic 5.7-6.4% ?Pre-Diabetic <5.7% ? Non-Diabetic Diabetic Glucose Control Evaluation: Therapeutic action suggested at >8.0% ADA recommends a glycemic goal of <7.0% 06/23/2024 3:00 AM EST 06/25/2024 12:30 PM EST Ezequiel Reyes MD LAB BLOOD ORDERABLES Final Result Performing Organization Address [facility] de Phone Number MELISA ASCIV[facility] [address] [place] [address] * (ABNORMAL) Lipid panel (06/23/2024 3:00 AM EST) Cholesterol 145 <200 mg/dL [facility] Comment: Optimal: ?<200 Borderline: ? 200-239 Higher Risk: ?>239 Triglycerides 64 <150 mg/dL [facility] Comment: Optimal: ?<150 Borderline High: ??150-199 High: ? 200-499 Very High: ?>499 HDL 48(A) >59 mg/dL [facility] Comment: Desirable: ?>59 Higher Risk: ?<40 LDL-Calc 84 <100 mg/dL [facility] Comment: Optimal: ?<100 Above Optimal: ?100-129 Borderline High: ??130-159 High: ? 160-189 Very High: ?>189 VLDL Cholesterol Ravi 13 <30 mg/dL [facility] Comment: Optimal: ?<30 Borderline High: ??30-39 High: ? 40-99 Very High: ?>99 Chol/HDL Ratio 3.0 <3.3 [facility] Comment: Optimal: ?<3.3 Higher Risk: ?>6.2 06/23/2024 3:00 AM EST 06/25/2024 12:41 PM EST Ezequiel Reyes MD LAB BLOOD ORDERABLES Final Result Performing Organization Address City/State/[facility] Co de Phone Number [facility] [address] [place] [address] from Last 3 Months Insurance MEDICARE [facility] MEDICARE [facility] MEDICARE Care Teams Territory Service Representative Relationship Specialty Start Date End Date Steve Nguyen MD [facility] [address] [place], [place] PCP - General 04/19/19
--- OUTSIDE RECORDS SUMMARY | 2024-08-25 13:05 | XMS_ITS ---
Author Organization [facility] Address [address] [place] [id number] Care Team Providers Care [employer] Name Role Phone Po Steve ANDERSEN Primary Care Provider Milton Poon [phone] Allergies No Known Allergies REASON FOR VISIT Patient presents today for constipation Medications Medication SIG (Take, Route, Frequency, Duration) Notes Start Date End Date Status traMADol HCl 50 MG Oral for 30 Active hydrALAZINE HCl 50 MG Oral for 90 Active Terazosin HCl 5 MG 1 capsule Orally Onc e a day Active Pravastatin Sodium 20 MG 1 tablet Orally Once a day Active ProAir HFA 108 (90 Base) MCG/ACT 2 puffs as needed Inhalation every 6 hrs Active Furosemide 80 MG 1 tablet Orally BID Active Hydroxychloroquine Sulfate 2 00 MG as directed Orally qod Activ e Vitamin D2 10 MCG (400 UNIT) 2 tablets O rally Once a day for 30 day(s) Active Losartan Potassium 100 MG 1 tablet Orall y Once a day for 30 day(s) Active Iron (Ferrous Sulfate) 325 ( 65 Fe) MG 1 tablet Orally Once a day for 30 day(s) Active FreeStyle Lancets - USE TO TEST TWICE A DAY DIRECTED for 90 Active Simethicone Active Sucralfate 1 GM Oral for 30 Ac tive Eliquis 2.5 MG Oral for 30 Act moriah FreeStyle Lite w/Device DIRECTED for 30 Active Omeprazole 40 MG Oral for 30 A ctive predniSONE 10 MG PLEASE SEE ATTACHED FOR DETAILED DIRECTIONS Oral for 28 Active oxyCODONE HCl Active Ketoconazole 2 % External for 15 Active Sevelamer Carbonate 800 MG Oral for 90 Active Vitamin D (Ergocalciferol) 1.25 MG (52156 UT) TAKE 1 CAPSULE BY MOUTH ONE TIME PER WEEK *DRUG NT CVD* Oral for 83 Active Ferrous Sulfate 325 (65 Fe) MG TAKE 1 TA BLET (325 MG TOTAL) BY MOUTH 1 (ONE) TIME EACH DAY WITH BREAKFAST Oral for 90 Active Anoro Ellipta 62.5-25 MCG/INH Inhalation for 30 Active amLODIPine Besylate 5 MG Oral for 90 Active Isosorbide Mononitrate ER 30 MG TAKE 1 TABLET BY MOUTH DAILY Oral for 90 Active Calcitriol 0.5 MCG Oral for 90 Active Social History Tobacco Use: Social History Observation Description Date Details (start date - stop date) Former Smoker NA - NA Tobacco Use/Smoking Question Answer Notes Patient is a former smoker How long has it been since you last smoked? 5-10 years Alcohol Screen Question Answer Notes Did you have a drink containing alcohol in the p ast year? No Points 0 Interpretation Negative Section Notes: Stopped smoking in 2011; no sig alcohol since age 48; heavy drinker from age 18 to age 48. He is originally from [place]. Vital Signs Temperature 98.4 degrees Fahrenheit 03/18/20 23 Blood pressure systolic 000 mm Hg 03/18/20 23 Blood pressure diastolic 00 mm Hg 023 Height 5 ft 11 in in 03/18/2023 Weight 207 lbs 03/18/2023 BMI 28.87 kg/m2 03/18/2023 Encounters Encounter Location Date Provider Diagnosis [facility] [address] [place] [address] 03/18/2023 Milton Freed Alcoholic cirrhosis of liver without ascites K70.30 and Chronic liver disease K76.9 Assessments Encounter Date Diagnosis (ICD Code) Assessment Notes Treatment Notes Treatment Clinical Notes Section Notes 03/18/2023 Alcoholic cirrhosis of liver without ascites (ICD-10 - K70.30) Overall, Kael appears stable and remarkably well considering all of the events he went through earlier this year. At the present time he is not having any active GI complaints. I did advise him to continue his current medical therapy for acid suppression, as well as to avoid aspirin and NSAIDs. I don't think he'll need any further endoscopic intervention as long as things remain stable. His liver disease appears to be stable at the present time as well. I don't think he needs any further imaging studies at this time nor any laboratories. He doesn't show any signs of liver decompensation such as jaundice, increasing ascites, GI bleeding, nor encephalopathy. If things remain stable I advised him that I would be happy to see me in one year for a followup visit. However, I did advise him to certainly call me prior to that if he has any problems or questions I can be of assistance with. Kael was comfortable with this plan. Thank you again for allowing me to participate in Kael's care. I shall continue to keep you advised of his progress. 03/18/2023 Chronic liver disease (ICD-10 - K76.9) Overall, Kael appears stable and remarkably well considering all of the events he went through earlier this year. At the present time he is not having any active GI complaints. I did advise him to continue his current medical therapy for acid suppression, as well as to avoid aspirin and NSAIDs. I don't think he'll need any further endoscopic intervention as long as things remain stable. His liver disease appears to be stable at the present time as well. I don't think he needs any further imaging studies at this time nor any laboratories. He doesn't show any signs of liver decompensation such as jaundice, increasing ascites, GI bleeding, nor encephalopathy. If things remain stable I advised him that I would be happy to see me in one year for a followup visit. However, I did advise him to certainly call me prior to that if he has any problems or questions I can be of assistance with. Kael was comfortable with this plan. Thank you again for allowing me to participate in Kael's care. I shall continue to keep you advised of his progress. 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 I saw Kael in followup today in regard to his underlying history of cirrhosis, anemia, and history of tubular adenomas of the colon. ?I last saw Kael in July. Since that time he has had a lot of medical and surgical interventions. He describes an emergency laparotomy at [facility] with a resection of some small intestine. He is not exactly sure why that that was but he thinks it might have been an obstruction. He has also had placement of a pacemaker, dialysis catheter with hemodialysis every 3 weeks, C. difficile infection, and then a hospitalization in November for some GI bleeding which for he underwent an upper endoscopy and colonoscopy with Dr. Devi. The upper endoscopy revealed some esophagitis and duodenitis, but no evidence of any ulcer disease, varices, nor neoplasm. Duodenal biopsies were negative for celiac disease and gastric biopsies were negative for H. pylori. A colonoscopy revealed some small tubular adenomas but no other significant pathology. He did have a small bowel video capsule study done in January showing the evidence of some esophagitis and duodenitis, but no evidence of any active bleeding in the small bowel, and specifically no sign of any neoplasm nor angiodysplasias. A CT scan in November did not reveal any sign of liver mass, splenomegaly, nor other acute pathology. ?At the present time Kael reports that he feels reasonably well considering everything that he has been through. From a GI standpoint he reports that he is eating comfortably and denies any significant heartburn, dysphagia, nausea, or vomiting. He reports his bowel movements have been fairly regular and without any hematochezia nor melena. He denies any abdominal pain, increasing abdominal girth, nor any signs of jaundice. ?Laboratories in February revealed a hemoglobin of 12.6 with a normal MCV. During the hospitalization in November his hemoglobin was as low as 5.6. ?He did have a paracentesis back in October with negative studies for spontaneous bacterial peritonitis. * ROS:?General/Constitutional:?Change in appetite?denies.?Chills?denies.?Fatigue?denies.?Ophthalmologic:?Patient denies? Negative..?ENT:?Patient denies?Negative..?Respiratory:?Patient denies?No coughing/hemoptysis..?Cardiovascular:?Patient denies? No chest pain/orthopnea..?Gastrointestinal:?Comments?See HPI for details.?Genitourinary:?Patient denies? No dysuria/hematuria..?Musculoskeletal:?Patient denies? No specific arthralgias/myalgias..?Skin:?Patient denies?No rash/pruritus..?Neurologic:?Patient denies? No headaches/seizures..?Psychiatric:?Patient denies?Negative..? * Medical History:? * Surgical History:?Cataract-l ens implants Carpal tunnel on the left Tonsillectomy LE veins HD fistula left arm 04/2022 Laparotomy at [facility] in Spring 2022 for what sounds like a small bowel obstruction and some small bowel resection * Hospitalization/Major Diagno stic Procedure:? * Family History:?Father: dece ased.?Mother: , Hemochromatosis-- of cirrhosis, diagnosed with Diabetes.? His 1st cousin on his mother's side has hemochromatosis and needs a liver transplant No colorectal cancer. * Social History:?Tobacco Use:?Tobacco Use/Smoking?Patient is a?former smoker,?How long has it been since you last smoked??5-10 years.?Drugs/Alcohol:?Alcohol Screen?Did you have a drink containing alcohol in the past year??No,?Points?0,?Interpretation?Negative.?Miscellaneous:?Marital status: Significant other-but she in 02/2021. Occupation: retired. ???Stopped smoking in 2011; no sig alcohol since age 48; heavy drinker from age 18 to age 48. He is originally from [place]. * Medications:?TakingSimethico ne Vitamin D2 10 MCG (400 UNIT) Tablet 2 tablets Orally Once a dayIron (Ferrous Sulfate) 325 (65 Fe) MG Tablet 1 tablet Orally Once a dayLosartan Potassium 100 MG Tablet 1 tablet Orally Once a dayHydroxychloroquine Sulfate 200 MG Tablet as directed Orally qodFurosemide 80 MG Tablet 1 tablet Orally BIDPravastatin Sodium 20 MG Tablet 1 tablet Orally Once a dayTerazosin HCl 5 MG Capsule 1 capsule Orally Once a dayhydrALAZINE HCl 50 MG Tablet Oral traMADol HCl 50 MG Tablet Oral ProAir HFA 108 (90 Base) MCG/ACT Aerosol Solution 2 puffs as needed Inhalation every 6 hrsCalcitriol 0.5 MCG Capsule Oral Anoro Ellipta 62.5-25 MCG/INH Aerosol Powder Breath Activated Inhalation Isosorbide Mononitrate ER 30 MG Tablet Extended Release 24 Hour TAKE 1 TABLET BY MOUTH DAILY Oral amLODIPine Besylate 5 MG Tablet Oral Ferrous Sulfate 325 (65 Fe) MG Tablet TAKE 1 TABLET (325 MG TOTAL) BY MOUTH 1 (ONE) TIME EACH DAY WITH BREAKFAST Oral Vitamin D (Ergocalciferol) 1.25 MG (55669 UT) Capsule TAKE 1 CAPSULE BY MOUTH ONE TIME PER WEEK *DRUG NT CVD* Oral oxyCODONE HCl predniSONE 10 MG Tablet PLEASE SEE ATTACHED FOR DETAILED DIRECTIONS Oral Omeprazole 40 MG Capsule Delayed Release Oral Sevelamer Carbonate 800 MG Tablet Oral Ketoconazole 2 % Cream External Sucralfate 1 GM Tablet Oral FreeStyle Lancets - Miscellaneous USE TO TEST TWICE A DAY DIRECTED FreeStyle Lite w/Device Kit DIRECTED Eliquis 2.5 MG Tablet Oral Medication List reviewed and reconciled with the patientTaking Rle Taking Vitamin D2 10 MCG (400 UNIT) Tablet 2 tablets Orally Once a dayTaking Iron (Ferrous Sulfate) 325 (65 Fe) MG Tablet 1 tablet Orally Once a dayTaking Losartan Potassium 100 MG Tablet 1 tablet Orally Once a dayTaking Hydroxychloroquine Sulfate 200 MG Tablet as directed Orally qodTaking Furosemide 80 MG Tablet 1 tablet Orally BIDTaking Pravastatin Sodium 20 MG Tablet 1 tablet Orally Once a dayTaking Terazosin HCl 5 MG Capsule 1 capsule Orally Once a dayTaking hydrALAZINE HCl 50 MG Tablet Oral Taking traMADol HCl 50 MG Tablet Oral Taking ProAir HFA 108 (90 Base) MCG/ACT Aerosol Solution 2 puffs as needed Inhalation every 6 hrsTaking Calcitriol 0.5 MCG Capsule Oral Taking Anoro Ellipta 62.5-25 MCG/INH Aerosol Powder Breath Activated Inhalation Taking Isosorbide Mononitrate ER 30 MG Tablet Extended Release 24 Hour TAKE 1 TABLET BY MOUTH DAILY Oral Taking amLODIPine Besylate 5 MG Tablet Oral Taking Ferrous Sulfate 325 (65 Fe) MG Tablet TAKE 1 TABLET (325 MG TOTAL) BY MOUTH 1 (ONE) TIME EACH DAY WITH BREAKFAST Oral Taking Vitamin D (Ergocalciferol) 1.25 MG (46571 UT) Capsule TAKE 1 CAPSULE BY MOUTH ONE TIME PER WEEK *DRUG NT CVD* Oral Taking oxyCODONE HCl Taking predniSONE 10 MG Tablet PLEASE SEE ATTACHED FOR DETAILED DIRECTIONS Oral Taking Omeprazole 40 MG Capsule Delayed Release Oral Taking Sevelamer Carbonate 800 MG Tablet Oral Taking Ketoconazole 2 % Cream External Taking Sucralfate 1 GM Tablet Oral Taking FreeStyle Lancets - Miscellaneous USE TO TEST TWICE A DAY DIRECTED Taking FreeStyle Lite w/Device Kit DIRECTED Taking Eliquis 2.5 MG Tablet Oral Medication List reviewed and reconciled with the patient * Allergies:?N.K.D.A.yes[Aller gies Verified] Objective: * Vitals:?Wt: 207 lbs, Ht: 5 f t 11 in, BMI:28.87 Index, BP: 000/00 mm Hg, Temp: 98.4. * Examination: ???General Examination: ?GENERAL APPEARANCE:?pleasant, well nourished, well developed, in no acute distress.?EYES:?sclera non-icteric.?ORAL CAVITY:?mucosa moist.?NECK/THYROID:?no cervical lymphadenopathy, neck supple.?SKIN:?nonjaundiced, no spider angiomata..?HEART:?S1, S2 normal.?LUNGS:?clear to auscultation bilaterally.?ABDOMEN:?normal bowel sounds, no guarding or rigidity, no hepatosplenomegaly, no masses palpable, soft, nontender, nondistended..?EXTREMITIES:? Bilateral LE severe venous stasis skin changes and edema ?Palmar erythema.?NEUROLOGIC:?alert and oriented.? Assessment: * Assessment: 1.?Alcoholic cirrhosis of li tal without ascites - K70.30 (Primary)?2.?Chronic liver disease - K76.9? Overall, Kael appears stable and remarkably well considering all of the events he went through earlier this year. At the present time he is not having any active GI complaints. I did advise him to continue his current medical therapy for acid suppression, as well as to avoid aspirin and NSAIDs. I don't think he'll need any further endoscopic intervention as long as things remain stable. His liver disease appears to be stable at the present time as well. I don't think he needs any further imaging studies at this time nor any laboratories. He doesn't show any signs of liver decompensation such as jaundice, increasing ascites, GI bleeding, nor encephalopathy. If things remain stable I advised him that I would be happy to see me in one year for a followup visit. However, I did advise him to certainly call me prior to that if he has any problems or questions I can be of assistance with. Kael was comfortable with this plan. Thank you again for allowing me to participate in Kael's care. I shall continue to keep you advised of his progress. Plan: * Treatment: * Procedure Codes:?3017F COLOR ECTAL CA SCREEN DOC [id number] TOBACCO [id number] BP SCR NOT PRFRM REC REASON NOS * Preventive Medicine:? ??Counseling:?Care goal follow-up plan:?Above Normal BMI Follow-up?Giving encouragement to exercise,?BMI management provided?Yes.? * Follow Up:?1 Year * * Sign off status: Completed true * Provider:?Milton Freed MD Date:? 023 Generated for Malu knight/Ally/Stacyitting on:?08/25/2024 01:05 PM EDT History and Physical Notes * HPI (History of Present Illness) Category Sub-Category Detail Notes Category Not es incontinence I saw Kael in followup today in regard to his underlying history of cirrhosis, anemia, and history of tubular adenomas of the colon. I last saw Kael in July. Since that time he has had a lot of medical and surgical interventions. He describes an emergency laparotomy at [facility] with a resection of some small intestine. He is not exactly sure why that that was but he thinks it might have been an obstruction. He has also had placement of a pacemaker, dialysis catheter with hemodialysis every 3 weeks, C. difficile infection, and then a hospitalization in November for some GI bleeding which for he underwent an upper endoscopy and colonoscopy with Dr. Devi. The upper endoscopy revealed some esophagitis and duodenitis, but no evidence of any ulcer disease, varices, nor neoplasm. Duodenal biopsies were negative for celiac disease and gastric biopsies were negative for H. pylori. A colonoscopy revealed some small tubular adenomas but no other significant pathology. He did have a small bowel video capsule study done in January showing the evidence of some esophagitis and duodenitis, but no evidence of any active bleeding in the small bowel, and specifically no sign of any neoplasm nor angiodysplasias. A CT scan in November did not reveal any sign of liver mass, splenomegaly, nor other acute pathology. At the present time Kael reports that he feels reasonably well considering everything that he has been through. From a GI standpoint he reports that he is eating comfortably and denies any significant heartburn, dysphagia, nausea, or vomiting. He reports his bowel movements have been fairly regular and without any hematochezia nor melena. He denies any abdominal pain, increasing abdominal girth, nor any signs of jaundice. Laboratories in February revealed a hemoglobin of 12.6 with a normal MCV. During the hospitalization in November his hemoglobin was as low as 5.6. He did have a paracentesis back in October with negative studies for spontaneous bacterial peritonitis. Examination Category Sub-Category Detail Notes Category Not es General Examination GENERAL APPEARANCE: pleasant , well nourished, well developed, in no acute distress EYES: sclera non-icteric NECK/THYROID: no cervical lymphade nopathy, neck supple HEART: S1, S2 normal LUNGS: clear to auscultatio n bilaterally ABDOMEN: normal bowel sounds, no guarding or rigidity, no hepatosplenomegaly, no masses palpable, soft, nontender, nondistended. NEUROLOGIC: alert and oriented SKIN: nonjaundiced, no spi echo angiomata. EXTREMITIES: Bilateral LE severe venous stasis skin changes and edema Palmar erythema ORAL CAVITY: mucosa moist
--- OUTSIDE RECORDS SUMMARY | 2024-08-25 13:05 | XMS_ITS | Encounter Summary ---
Author Organization [facility] Address [address] [place] [address] Phone Care Team Providers Care Shoe Polisher Name Role Phone Steve Nguyen MD Primary Care Provider [phone] Encounter Details Date Type Department Care Team (Late st Contact Info) Description 05/22/2022 Documentation Only [facility] [address] [place] [address] Hermelinda Colunga [address] [place] [phone] Social History Tobacco Use Types Packs/Day [...] visit [facility] - V[facility] Access Center [address] [place] [phone] documented as of this encounter Visit Diagnoses Not on filedocumented in this encounter Care Teams Shoe Polisher Relationship Specialty Start Date End Date Steve Nguyen MD [address] [place] PCP - General 04/19/19 documented as of this encounter
--- OUTSIDE RECORDS SUMMARY | 2024-08-25 13:05 | XMS_ITS | Encounter Summary ---
Author Organization [facility] Address [address] [place] [address] Phone Care Team Providers Care Winder Fixer Name Role Phone Steve Nguyen MD Primary Care Provider [phone] Encounter Details Date Type Department Care Team (Late st Contact Info) Description 09/01/2022 Documentation Only [facility] [address] [place] [address] Sahara Rousseau PA Social History [...] visit [facility] [address] [place] [address] documented as of this encounter Visit Diagnoses Not on filedocumented in this encounter Care Teams Winder Fixer Relationship Specialty Start Date End Date Steve Nguyen MD [facility] [address] [facility] PCP - General 04/19/19 documented as of this encounter
--- OUTSIDE RECORDS SUMMARY | 2024-08-25 13:05 | XMS_ITS | Clinical Summary ---
Author Organization [facility] Address [address] [place] [address] Care Team Providers Care Cleaning Technician Name Role Phone Steve Nguyen MD Primary Care Provider [phone] Allergies Active Allergy Reactions Criticality Noted Date Comments Ferumoxytol High 04/02/2021 Other reaction(s): Other (see comments) Chest pain, chills Medications Medication Sig Dispensed Refills Start Date End Date Status albuterol 108 (90 Base) MCG/ACT inhaler INHALE 2 PUFFS INTO THE LUNGS EVERY 6 HOURS NEEDED FOR WHEEZE 0 06/09/2022 Active amLODIPine (NORVASC) tablet 5 mg Take 1 tablet (5 mg total) by mouth daily. 0 03/28/2022 Active Eliquis 5 MG TABS tablet Take 1 tablet (5 mg total) by mouth 2 (two) times a day. 0 06/02/2022 Active calcitriol (ROCALTROL) 0.5 MCG capsule Take 1 capsule (0.5 mcg total) by mouth daily. 0 04/02/2022 Active epoetin gaby (PROCRIT) 01199 UNIT/ML injection Inject 1 mL (20,000 Units total) under the skin. 0 11/27/2020 Active ferrous sulfate 325 (65 FE) MG tablet TAKE 1 TABLET BY MOUTH 1 TIME EACH DAY WITH BREAKFAST. 0 04/02/2022 Active furosemide (LASIX) 40 MG tablet PLEASE SEE ATTACHED FOR DETAILED DIRECTIONS 0 04/17/2022 Active hydrALAZINE (APRESOLINE) 50 MG tablet Take 1 tablet (50 mg total) by mouth 3 (three) times a day. 0 04/02/2022 Active isosorbide mononitrate (IMDUR) 30 MG 24 hr tablet Take 1 tablet (30 mg total) by mouth daily. 0 04/21/2022 Active losartan (COZAAR) 100 MG tablet Take 1 tablet (100 mg total) by mouth daily. 0 06/10/2022 Active NIFEdipine (PROCARDIA XL) 90 MG 24 hr tablet Take 1 tablet (90 mg total) by mouth. 0 03/21/2020 Active pravastatin (PRAVACHOL) tablet 20 mg Take 1 tablet (20 mg total) by mouth every night at bedtime. 0 04/12/2022 Active TERAZOSIN HCL PO Take 5 mg by mouth. 0 05/23/2013 Active traMADol (ULTRAM) 50 MG tablet Take 50 mg by mouth every 8 (eight) hours as needed. for pain 0 03/27/2022 Active Anoro Ellipta 62.5-25 MCG/ACT AEPB 1 puff by Inhaled route daily. 0 06/02/2022 Active Active Problems Problem Noted Date Diagnosed Date Anemia 06/17/2022 Social History Tobacco Use Types Packs/Day Years Used Date Smoking Tobacco: Never Assessed Sex and Gender Information Value Date Recorded Sex Assigned at Not on file Gender Identity Not on file Sexual Orientation Not on file Job Start Date Occupation Industry Not on file Not on file Not on file Last Filed Vital Signs Vital Sign Reading Time Taken Comments Blood Pressure 114/35 06/18/2022 11:27 AM EST Pulse 116 06/18/2022 11:27 AM EST Temperature 36.3 ??C (97.4 ??F) 06/18/2022 1 1:27 AM EST Respiratory Rate 18 06/18/2022 11:2 7 AM EST Oxygen Saturation 98% 06/18/2022 11: 27 AM EST Inhaled Oxygen Concentration - - Weight 132.5 kg (292 lb 1.8 oz) 023 11:27 AM EST Height - - Body Mass Index - - Plan of Treatment Health Maintenance Due Date Last Done Comments Hepatitis C Screening 1953 Depression Screening 1965 Preventative Health Evaluation 1971 DTap / Tdap / Td (1 - Tdap) 01/28/1972 Colon Cancer Screening (Colonoscopy) 1998 Shingrix-Zoster Vaccine (1 of 2) 2003 Fall Risk Assessment 2018 Pneumococcal Vaccine (2 of 2 - PCV) 01/28/2019 01/28/2018, 12/13/2013, 05/04/2012 COVID-19 Vaccine ( season) 2024 10/18/2020, 09/27/2020 Influenza Vaccine (#1) 2024 , 03/26/2021, 04/28/2019, Additional history exists RSV Adult > 60+ Yrs or (1 - 1-dose 75+ series) 01/28/2028 Hepatitis B Vaccines Aged Out No long er eligible based on patient's age to complete this topic RSV Ped < 20 months Aged Out No longe r eligible based on patient's age to complete this topic Care Teams Cleaning Technician Relationship Specialty Start Date End Date Po, Steve Dawn MD [address] [place] [address] Dr [address] [facility] [place] [address] PCP - General Internal Medicine 06/18/22
--- OUTSIDE RECORDS SUMMARY | 2024-08-25 13:06 | XMS_ITS | Encounter Summary ---
Author Organization [facility] Address [address] [place] [address] Phone Care Team Providers Care Career Development Associate Name Role Phone Steve Nguyen MD Primary Care Provider [phone] Encounter Details Date Type Department Care Team (Latest Contact Info) Description 07/29/2024 11:00 AM EST Procedure visit [facility] - Vascular Access Center [address] [place] [phone] Milton Levi MD [address] [phone] End stage renal disease (HCC) (Primary Dx); Stenosis of other vascular prosthetic devices, implants and grafts, initial encounter (HCC) Social History Tobacco Use Types Packs/Day Years [...] on file documented as of this encounter Last Filed Vital Signs Vital Sign Reading Time Taken Comments Blood Pressure 120/50 07/29/2024 10:14 AM EST Pulse 82 07/29/2024 10:14 AM EST Temperature 36.2 ??C (97.2 ??F) 07/29/2024 10:[address] Respiratory Rate - - Oxygen Saturation 97% 07/29/2024 10:14 AM EST Inhaled Oxygen Concentration - - Weight 105 kg (231 lb 7.7 oz) 07/29/2024 10:14 A M EST Height 177.8 cm (5' 10 ) 07/29/2024 10:14 AM EST Body Mass Index 33.21 07/29/2024 10:14 AM EST documented in this encounter Progress Notes * Genna Sauceda - 07/29/2024 11:00 AM EST VAC Nurse Pre-Op Form Arrival time: 1000 Vitals: 07/29/24 1014 BP: 120/50 BP Location: Left upper arm Pulse: 82 Temp: 97.2 ??F SpO2: 97% Weight: 231 lb 7.7 oz (105 kg) Height: 5' 10 (1.778 m) Pre-Procedure Checklist: Patient ID Confirmed: [x] Yes [] No Questionnaire Reviewed: [x] Yes [] No Jewelry Removed: [] Yes [x] No [] N/A Dentures Removed: [] Yes [x] No [] N/A Food, alcohol, pain meds, sedatives in last 8 hours: [] Yes [x] No Procedure Verified by Patient: [x] Yes [] No [x] Fistulagram [] Angioplasty [] Thrombectomy [] BAM [] Stent Placement [] Ligation [] Catheter Placement [] Catheter Replacement [] Portacath Placement [] Portacath Removal [] Venogram [] Peritoneal dialysis catheter insertion. [] Peritoneal dialysis catheter removal. Acknowledgements and Consent for Care/Treatment/Procedure/Anesthesia Signed: [x] Yes [] No Problem and medication list updated: [x] Labs Reviewed: Glucose Results (Point of Care) if applicable: Time: Result: Platelets Date Value Ref Range Status 07/21/2024 120 (L) 163 - 337 K/uL Final Potassium Date Value Ref Range Status 07/21/2024 4.4 3.4 - 5.0 mEq/L Final Patient arrived: [] Ambulatory [x] Ambulatory/cane [] Ambulatory/walker [] Via wheelchair [] Via stretcher Mental Status: [x] A&O x3 [] Lethargic [] Dementia [] Confused Lungs: [x] Lungs clear bilaterally [] Right []Clear []Absent [] Diminished []Rales []Rhonchi []Wheezing []Rub [] Left []Clear []Absent [] Diminished []Rales []Rhonchi []Wheezing []Rub Heart: [x] Regular rate [] Regular rate with murmur [] Irregular rate [] Irregular rate with murmur Access Type: [x] AV Access [] Central Venous Catheter [] Port [] Peritoneal Catheter [] None Location: [] Left [x] Right [x] Arm [] Thigh [] Chest [] Groin [] Abdomen [] Left [] Right [] Arm [] Thigh [] Chest [] Groin [] Abdomen Access Assessment: [] Thrill present [x] Pulsatile thrill present [] Thrombosed [] Aneurysmal [x] No signs of infection Distal pulse to surgical site: [x] Right. [] Left. [] Brachial. [x] Radial. [] DP. [] PT. [] Popliteal. [x] Present. [] Weak. [] Absent. [] Doppler. Peritoneal Catheter insertion: [] Fleets enema 2-3 hrs prior to arrival [] Voided prior to entering OR [] Grounding pad placed on thigh IV Site: []Left []Right []Dorsum of hand []Forearm []Wrist []Antecubital Angio size: []22G []18G Medications Administered: [x] Cephalexin 500 mg po @ 1055 ([facility]#[id number]) [] Clindamycin 300 mg po @ ([facility]#[id number]) [] Cefazolin slow IVP 1 gm (wgt<60 kg) @ ([facility]#[id number]) [] Cefazolin slow IVP 2 gm (wgt 60-120 kg) @ ([facility]#[id number]) [] Cefazolin slow IVP 3 gm (wgt > or = 120 kg) @ ([facility]#[id number]) [] Clindamycin 600 mg in 50 ml NS IV over 20 minutes @ ([facility]#[id number]) [] Vancomycin 1 GM IV over 1 hour @ ([facility]#[id number]) Site marked: [x] R hand Marked by: [x]Chiki Sauceda RN []Hal Daniel RN [] Anna Marie Harmon RN Notes: Immediately upon arrival to waiting room, pt was screened for COVID. All responses to COVID screening questions were answered negative. Patient temperature was checked and was noted to be WNL (see vital sign section in EHR for details). Pt then brought to pre-op room. Pt presents for 12 week access eval with possible fistulagram. Procedure explained, consents signedand witnessed. Pt reports occasional bleeding at HD. Dr. Levi aware. [facility] ? Graft infection cx exploration d/t improvement w antifungals. Dr. Levi aware. L pacemaker. Pt reports unable to get eliquis d/t insurance. Ran out about 2 weeks ago. Asked patient to speak w cardiology office or SW at HD to see if other anticoag covered by new plan. Pt verbalized understanding. Dr. Levi aware. Wedding band unable to be removed, dentures in tight. Report given to: []Chiki Sauceda RN []Hal Daniel RN [] Anna Marie Harmon RN Genna Sauceda * Genna Sauceda - 07/29/2024 11:00 AM EST VAC NURSING INTRA-OP FORM Events Record: TIME Time in OR 1057 Time out called 1109 Anesthesia start 1117 Procedure start 1109 Procedure end 1124 Time out of OR 1128 Anesthesia end 1128 Surgeon: [] Sita. [x] Chase. [] Meran. Circulating RN: [x] Komal [] Fredy [] Faustino Deputy Sheriff Generalist: [] Fatou. [x] Faustino [] Coy. production assistant: [] Jo-Ann. [x] Coy. [] Denver. [] Vern. Anesthesia: [] Kurbanov. [x] Levi. [] Amandaartseverino. Safety Checks: Pre-procedure counts of sponges, sharps and instruments: [x] Yes [] N/A PPE verified: [x] Yes [] N/A Supine position: [x] Yes [] N/A Pillow under knees and safety strap on: [x] Yes [] N/A Grounding pad: ESU setting 30/30 Blend 2: [] Yes [x] N/A Grounding pad location: [] left flank. [] right flank. [] left thigh. [] right thigh. Site marking verified/ correct site during time-out [x] Xray in Use light turned on: [x] Yes [] N/A Fire Risk Assessment: Alcohol-based skin antiseptic: [x] Yes [] No Surgical site above xiphoid: [] Yes [x] No Oxygen being administered: [x] Yes [] No Electrosurgical unit being used: [] Yes [x] No Skin Prep: Duraprep: [x] Yes Chloraprep: [] Yes 70% Isopropyl Alcohol: [] Yes Final Count Correct: [x] Yes [] N/A Implant: [] Yes [x] No [] CVC [] stent Editorial Director: Lot#1: Ref#: Date: Local type: [] Mix 1% xylocaine (5cc), 0.5% marcaine with epinephrine (5cc), and normal saline 0.9% (10cc) Total 1% xylocaine and 0.5% marcaine with epinephrine ml given: Total 1% xylocaine and 0.5% marcaine with epinephrine ml wasted: [] Mix 1% xylocaine with epinephrine (5cc), 0.25% marcaine (5cc), and normal saline 0.9% (10cc) Total 1% xylocaine with epinephrine and 0.25% marcaine ml given: Total 1% xylocaine with epinephrine and 0.25% marcaine ml wasted: [x] Mix lidocaine 1% plain (1cc), and normal saline 0.9% (1 cc) Total xylocaine 1% ml given: 0.5 Total xylocaine 1% ml wasted:0.5 Dye: [x] Optiray 320 [] Optiray 350 [] Omnipaque 350 Total ml given: 40 Total ml wasted:10 Radiation usage: 8.40 mGy Anesthesia used: [] None. [x] Local. [x] IV sedation. Procedure: [x] Fistulagram. [x] Angioplasty. [] Thrombectomy. [] BAM. [] Stent placement. [] Ligation. [] Catheter placement. [] Catheter replacement. [] Portacath placement [] Portacath removal. [] Venogram. [] Peritoneal dialysis catheter insertion. [] Peritoneal dialysis catheter removal. Patient transferred OR table: [x] Ambulatory w cane . [] Wheelchair. [] Stretcher. Intra-operative Flow Sheet: Time 1057 1102 1107 1112 1117 1122 BP 131/64 129/63 127/61 127/63 127/63 128/63 Heart rate 63 64 66 60 66 63 Rhythm Paced freq pvc Paced freq pvc Paced freq pvc Paced freq pvc Paced freq pvc Paced freq pvc Resp rate 12 12 11 16 14 12 O2 sat 94 94 94 94 95 96 2L LOC a a a a a b Pain scale 0 0 0 0 0 0 Time 1117 Total Given Total Wasted Given By Versed mg 1 1 1 Levi Response 2 Fentanyl mcg 50 50 50 Levi Response 2 Time BP Heart rate Rhythm Resp rate O2 sat LOC Pain scale Time Total Given Total Wasted Given By Versed mg Response Fentanyl mcg Response Legend: LOC: A = Awake B = Drowsy but awake and responds appropriately to voice C = Slow to arouse and responds appropriately to touch D = Difficult to arouse and responds inappropriately to stimulation Pain scale: 0 (no pain) ... 5 (moderate pain) ... 10 (severe pain) Response to medication: 1 = no effect 2 = moderate effect 3 = effective Nurses Notes: Time Note 1057 Pt assisted on OR table and prepped in usual manner. O2 stat on thumb. 1117 Applied O2 at 2L d.t hx destat. 1118 Destat to 88, encouraged deep breathes with positive effect. New O2 stat 92. Dr. Levi aware. 1121 Destat to 87, encouraged deep breathes with positive effect. New O2 stat 98. Dr. Levi aware. 1128 Pt tolerated procedure well, transferred to recovery via cardiac chair Genna Sauceda * Genna Sauceda - 07/29/2024 11:00 AM EST VAC NURSING RECOVERY FORM Arrival time: 112 Transferred to recovery room via: [x] cardiac chair. [] stretcher. [] wheelchair. [] ambulatory Report given by: [] Komal [] Fredy. [] Faustino. Anesthesia: [x] local. [x] IV conscious sedation. [] none. Position of patient: [] Supine. [x] Fowlers. [] T-Leal Skin: [x] Warm. [] Cool. [x] Dry. [] Diaphoretic. Breath sounds equal & clear: [x] Yes. [] No. (see comment in nursing note below). IV site: [x] N/A [] Patent. [] Clean& dry. [] Erythema. Surgical dressing site: [] Left. [x] Right. [x] Arm. [] Leg. [] Neck. [] Chest. [] Abdomen. [] Left. [] Right. [] Arm. [] Leg. [] Neck. [] Chest. [] Abdomen. Surgical dressing dry and intact: [x] Yes. [] No. (see comment in nursing note below). AV access: [] Thrill present. [x] Pulsatile thrill. [] Thrombosed. [] N/A Distal pulse to surgical site: [x] Right. [] Left. [] Brachial. [x] Radial. [] DP. [] PT. [] Popliteal. [x] Present. [] Weak. [] Absent. [] Doppler. Nausea on arrival: [] Yes. [x] No. IV Fluid given: 0.9% NaCl [x] N/A [] ml 0.9% NaCl with 1 gram Vancomycin [x] N/A [] ml Medications: Time Drug/Dose Route Response []Effective []Mod effective []No effect []Effective []Mod effective []No effect Time 1129 1144 1159 BP 136/78 144/59 147/62 Heart rate 58 61 62 Heart Rhythm Paced freq pvc Paced freq pvc Paced freq pvc Resp rate 14 12 11 O2 sat 98 97 98 LOC a a a Pain scale 0 0 0 Legend: LOC: A = Awake; B = Drowsy but awake and responds appropriately to voice; C = Slow to arouse and responds appropriately to touch; D = Difficult to arouse and responds inappropriately to stimulation Pain scale: 0 (no pain) ... 5 (moderate pain) ... 10 (severe pain) Functional Status Score Admit Discharge Activity 2 2 2=Moves all extremities voluntarily or on command, 1=Moves two extremities, 0=Unable to move extremities Respirations 2 2 2=Breathes deeply and coughs freely, 1=Dyspneic, shallow, or limited breathing, 0=Apnea Circulation 2 2 2=BP + 20mm of preanesthetic level, 1=BP + 20-50mm of preanesthetic level, 0=BP + 50mm preanesthetic level Consciousness 2 2 2=Fully awake, 1= Arousable on calling, 0=Not responding O2 Saturation 2 2 2=SpO2 >92% on room air, 1=Supplemental O2 required to maintain SpO2 >90%, 0=SpO2 <92% with O2 supplementation TOTAL 10 10 SCORE >9 REQUIRED FOR DISCHARGE Discharge Checklist YES NO N/A COMMENTS Nausea/vomiting [] [x] [] Taking nourishment without problem [x] [] [] Pain Controlled [x] [] [] IV removed [] [] [x] Prescriptions given & reviewed [] [] [x] Reconciled medication/ allergy list given to patient. [] [] [] [x] Pt declined list due to already having a current list. Discharge instructions reviewed with stated understanding. [x] [] [] Discharge criteria met [x] [] [] Nurses Notes: Time Note 1129 Pt arrived to recovery A&O X 3. 1205 Dr Levi present in recovery and cleared pt for discharge. Pt assisted with dress and discharged home. Discharged to: [x]Home. []Longterm. []Hospital. []Dialysis. Accompanied by: [x] Spouse. [] Family. [] Friend. [] Van service. [] Ambulance. [] Staff. Discharge time: 1205 Discharged via: [x] Wheelchair. [] Stretcher. [] Ambulatory. [] Ambulance. documented in this encounter H&P Notes * Milton Levi MD - 07/29/2024 11:00 AM EST Images from the original note were not included. HISTORY AND PHYSICAL DATE: 07/29/24 HPI: This patient returns today for evaluation of their hemodialysis access. On examination, the access is malfunctioning: pulsatile. He can no longer afford Eliquis and recently stopped it. Because of the documented findings on physical exam of the access today, I recommend a fistulagram of the access (and treatment based upon the findings from the fistulagram).. Patient Questionnaire Reviewed. 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 Procedure/Plan: Fistulagram with possible angioplasty Anesthesia Assessment: ASA Status: Class 3 Airway: Class 3 Plan: local and IV conscious sedation documented in this encounter Miscellaneous Notes * Op Note - Milton Levi MD - 07/29/2024 11:00 AM EST Images from the original note were not included. VAC Angiogram of Dialysis Access Procedure Date: 07/29/24 Preoperative Diagnosis: Malfunctioning dialysis access Postoperative Diagnosis: Malfunctioning dialysis access Procedure: Needle cannulation of dialysis access. Angiogram dialysis access: right arm Percutaneous balloon angioplasty of: Innominate vein Anesthesia: local and sedation Procedure Description: After obtaining informed consent, the patient was placed on the operating table in supine position.EKG, BP and continuous oxygen saturation monitoring were performed. The operative site was prepped and draped in the usual sterile fashion. The access was cannulated near the midpoint. An angiogram was performed to visualize the inflow artery, the access, the outflow draining veins (peripheral and central) and the vena cava. A guide wirewas inserted followed by a percutaneous angioplasty balloon catheter. Angioplasty was performed as needed using a pressure syringe. A final angiogram was performed. The catheter(s) and sheath(s) wereremoved and hemostasis was achieved. Findings: Stenotic lesion(s) identified and balloon angioplasty(ies) were as follows: Site 1: Innominate vein Percent stenosis: 60 Angioplasty balloon size: 12 mm Angioplasty result, percent residual stenosis: 20 EKG: sinus rhythm The flow in the access was assessed as fair. Distal Pulse: palpable. Notes: Full loop, upper arm graft with good inflow and an old VA stent. No stenosis seen in graft or stent. There was a stenosis in the innominate vein that partially responded to angioplasty with an improvement in the thrill. Plan: Schedule for physical exam of the access and a possible fistulagram in 3 months. documented in this encounter Plan of Treatment Upcoming Encounters Date Type Department Care Team (Late st Contact Info) Description 10/28/2024 10:00 AM EDT Procedure visit [facility] - Vascular Access Center [address] [place] [address] documented as of this encounter Procedures Procedure Name Priority Date/Time Associated Diagnosis Comments POTASSIUM Routine 07/21/2024 documented in this encounter Results * Potassium (07/21/2024) Potassium 4.4 mEq/L Blood (Blood, Venous) 07/21/2024 us Historical Provider LAB BLOOD ORDERABLES Jazmyn l Result documented in this encounter Visit Diagnoses Diagnosis End stage renal disease (HCC)- Primary End stage renal disease Stenosis of other vascular prosthetic devices, implants and grafts, initial encounter (HCC) documented in this encounter Care Teams Career Development Associate Relationship Specialty Start Date End Date Steve Nguyen MD [facility] [address] [place], [place] PCP - General 04/19/19 documented as of this encounter
--- OUTSIDE RECORDS SUMMARY | 2024-08-25 13:06 | XMS_ITS | Encounter Summary ---
Author Organization [facility] Address [address] [address] Phone Care Team Providers Care Inside Sales Agent Name Role Phone Steve Nguyen MD Primary Care Provider [phone] Encounter Details Date Type Department Care Team (Late st Contact Info) Description 08/23/2024 Treatment [facility] [address] [address] Bianca Reyes MD [address] [address] End stage renal disease; Dependence on renal dialysis Social History Tobacco Use Types Packs/Day Years [...] on file documented as of this encounter Miscellaneous Notes * Dialysis Note - Bianca Reyes MD - 08/23/2024 12:00 AM EDT Patient: Dimitrios Meyer : 1955 Note Type: Dialysis Rounds-Basic Service Date: 08/23/2024 This patient was personally seen for a basic visit as part of routine monthly dialysis care for end stage renal disease. Attending Italian Tutor: BIANCA REYES MD Dialysis Location: [facility] Schedule: Shift: 1 OVERVIEW Patient is stable. COMMENTS: Note in dialysis manager of merchandising HOME MEDICATIONS Current [facility] Outpatient Medications acetaminophen (TYLENOL) tablet Take by mouth every 6 (six) hours if needed for mild pain Start Date: albuterol (PROVENTIL HFA;VENTOLIN HFA) inhaler Inhale 2 puffs every 6 (six) hours if needed for wheezing Start Date: amLODIPine (NORVASC) tablet Take 5 mg by mouth 1 (one) time each day Start Date: apixaban (ELIQUIS) tablet Take 5 mg by mouth in the morning and 5 mg in the evening. Start Date: cefepime (MAXIPIME) vial 1 g Infuse 1 g into a venous catheter 3 (three) times a week Start Date: 05/26/2024 ciclopirox (LOPROX) cream 0.77% Apply 1 application. topically 1 (one) time each day Start Date: 05/26/2024 epoetin gaby (EPOGEN,PROCRIT) injection 10,000 units/mL Inject 10,000 Units under the skin 2 (two) times a week Start Date: 04/04/2024 ferrous sulfate tablet 325 mg Take 325 mg by mouth 1 (one) time each day with breakfast Start Date: furosemide (LASIX) tablet Take 80 mg by mouth in the morning and 80 mg in the evening. Start Date: gabapentin (NEURONTIN) capsule Take 300 mg by mouth in the morning. Start Date: 04/15/2024 hydroxychloroquine (PLAQUENIL) tablet 200 mg Take by mouth 1 (one) time each day Start Date: isosorbide mononitrate (IMDUR) 24 hr tablet Take 30 mg by mouth 1 (one) time each day Start Date: 10/19/2021 losartan (COZAAR) tablet Take 100 mg by mouth 1 (one) time each day at the same time Start Date: metoprolol succinate (TOPROL-XL) 24 hr tablet Take 25 mg by mouth 1 (one) time each day Do not crush or chew. Start Date: midodrine (PROAMATINE) 5 MG tablet TAKE 1 TABLET BY MOUTH IN MORNING BEFORE DIALYSIS ONLY ON DIALYSIS DAY Start Date: 04/05/2024 pravastatin (PRAVACHOL) tablet Take 20 mg by mouth 1 (one) time each day Start Date: PREDNISONE 10 MG (21) PO TBPK Reported on 05/05/2024 Start Date: sevelamer carbonate (RENVELA) tablet 800 mg Take 800 mg by mouth in the morning and 800 mg at noon and 800 mg in the evening. Take with meals. Swallow tablet whole; do not crush, break, or chew.. Start Date: SILVER EX Apply 1 Application topically Start Date: 05/04/2024 terazosin (HYTRIN) capsule 1 capsule 1 (one) time each day at the same time Start Date: traMADol (ULTRAM) tablet 50 mg Take 50 mg by mouth in the morning. Start Date: 04/15/2024 vancomycin IVPB 750 mg in 150 mL (premix) Infuse 750 mg into a venous catheter 3 (three) times a week Start Date: 05/27/2024 VITAMIN D (ERGOCALCIFEROL) 63972 UNITS PO CAPS Take 1 capsule by mouth Start Date: 05/20/2022 Current [facility] Epic Allergies Allergen: FERUMOXYTOL Reaction: Other (see comments) Severity: High ADEQUACY ASSESSMENT Kt/V, Natural Log 0.74 (08/18/24) 1.41 (07/21/24) 1.21 (06/23/24) UREA REDUCTION RATIO (%) 47 (08/18/24) 70 (07/21/24) 64 (06/23/24) BUN 64 (08/18/24) 67 (07/21/24) 59 (06/23/24) BUN Post Dialysis 34 (08/18/24) 20 (07/21/24) 21 (06/23/24) Creatinine 6.29 (08/18/24) 9.82 (07/21/24) 5.71 (06/23/24) Bicarbonate (CO2) 26 (08/18/24) 24 (07/21/24) 24 (06/23/24) Sodium 135 (08/18/24) 134 (07/21/24) 138 (06/23/24) ANEMIA ASSESSMENT Hgb 10.7 (08/18/24) 11.0 (08/04/24) 11.5 (07/21/24) Iron Saturation (TSat) 32 (08/18/24) 30 (07/21/24) 25 (06/23/24) Ferritin 1,541 (08/18/24) 753 (07/21/24) 1,401 (06/23/24) Iron 74 (08/18/24) 58 (07/21/24) 64 (06/23/24) TIBC 231 (08/18/24) 192 (07/21/24) 253 (06/23/24) MCV 102.3 (08/18/24) 108.2 (07/21/24) 108.1 (06/23/24) Platelets 135 (08/18/24) 120 (07/21/24) 122 (06/23/24) BMM ASSESSMENT PTH within target. Hyperphosphatemia noted. Calcium, Adjusted Total 9.4 08/18/24 9.1 07/21/24 9.7 06/23/24 Calcium 9.4 08/18/24 9.0 07/21/24 9.7 06/23/24 Phosphorus, Serum 8.5 08/18/24 3.8 07/21/24 8.0 07/05/24 Ca*PO4 79.9 08/18/24 34.2 07/21/24 62.1 06/23/24 PTH, Intact 362 06/23/24 Magnesium 2.2 08/18/24 2.4 07/21/24 2.0 06/23/24 Alkaline Phosphatase 162 08/18/24 139 07/21/24 176 06/23/24 Aluminum 7 06/23/24 5 05/28/24 NUTRITION ASSESSMENT Albumin at goal. Albumin 4.3 08/18/24 3.9 07/21/24 4.2 06/23/24 Potassium 4.2 08/18/24 4.3 08/09/24 4.1 08/02/24 Hemoglobin A1C 4.4 06/23/24 ADDITIONAL LABS White Blood Cells 4.9 (08/18/24) 3.5 (07/21/24) 5.7 (06/23/24) Cholesterol 145 (06/23/24) HDL 48 (06/23/24) LDL-Calc 84 (06/23/24) Triglycerides 64 (06/23/24) Hep B Surface Antibody <4 (06/23/24) <4 (05/28/24) Uric Acid 6.5 (06/23/24) ADDITIONAL COMMENT COMMENTS: Note in dialysis manager of merchandising Signed by: BIANCA REYES MD on 08/23/2024 at 08:56:53 AM documented in this encounter Plan of Treatment Upcoming Encounters Date Type Department Care Team (Late st Contact Info) Description 10/28/2024 10:00 AM EDT Procedure visit [facility] [address] [place] [phone] documented as of this encounter Visit Diagnoses Diagnosis End stage renal disease Dependence on renal dialysis documented in this encounter Care Teams Inside Sales Agent Relationship Specialty Start Date End Date Steve Nguyen MD [facility] [place] [address] [place], [place] PCP - General 04/19/19 documented as of this encounter
--- OUTSIDE RECORDS SUMMARY | 2024-08-25 13:06 | XMS_ITS | Encounter Summary ---
Author Organization [facility] Address [address] [place] [address] Phone Care Team Providers Care Staff Submarine Warfare Officer Name Role Phone Steve Nguyen MD Primary Care Provider [phone] Encounter Details Date Type Department Care Team (Late st Contact Info) Description 03/21/2022 Documentation Only [facility] [address] [place] [address] Sahara Rousseau PA Social History [...] [facility] [address] [place] [phone] documented as of this encounter Visit Diagnoses Not on filedocumented in this encounter Care Teams Staff Submarine Warfare Officer Relationship Specialty Start Date End Date Steve Nguyen MD [facility] [place] [address] [place] PCP - General 04/19/19 documented as of this encounter
--- OUTSIDE RECORDS SUMMARY | 2024-08-25 13:06 | XMS_ITS | Encounter Summary ---
Author Organization [facility] Address [address] [address] Phone Care Team Providers Care Quality Engineer Name Role Phone Steve Nguyen MD Primary Care Provider [phone] Encounter Details Date Type Department Care Team (Late st Contact Info) Description 07/30/2024 Treatment [facility] [address] [address] Bianca Reyes MD [address] [address] Social History Tobacco Use Types Packs/Day Years [...] Dialysis Note - Bianca Reyes MD - 07/30/2024 12:00 AM EST Patient: Dimitrios Meyer : 1955 Note Type: Dialysis Rounds-Basic Service Date: 07/30/2024 This patient was personally seen for a basic visit as part of routine monthly dialysis care for end stage renal disease. Attending Beck Operator: BIANCA REYES MD Dialysis Location: [facility] Schedule: Shift: 1 OVERVIEW Patient is stable. COMMENTS: Note in dialysis healthcare manager HOME MEDICATIONS Current [facility] Epic Outpatient Medications [...] week Start Date: 05/27/2024 VITAMIN D (ERGOCALCIFEROL) 73563 UNITS PO CAPS Take 1 capsule by mouth Start Date: 05/20/2022 Current [facility] Epic Allergies Allergen: FERUMOXYTOL Reaction: Other (see comments) Severity: High ADEQUACY ASSESSMENT Kt/V, Natural Log 1.41 (07/21/24) 1.21 (06/23/24) 1.30 (05/19/24) UREA REDUCTION RATIO (%) 70 (07/21/24) 64 (06/23/24) 69 (05/19/24) BUN 67 (07/21/24) 59 (06/23/24) 32 (05/19/24) BUN Post Dialysis 20 (07/21/24) 21 (06/23/24) 10 (05/19/24) Creatinine 9.82 (07/21/24) 5.71 (06/23/24) 5.71 (05/19/24) Bicarbonate (CO2) 24 (07/21/24) 24 (06/23/24) 29 (05/19/24) Sodium 134 (07/21/24) 138 (06/23/24) 143 (05/19/24) ANEMIA ASSESSMENT Hgb 11.5 (07/21/24) 10.2 (07/07/24) 10.3 (06/23/24) Iron Saturation (TSat) 30 (07/21/24) 25 (06/23/24) 23 (05/19/24) Ferritin 753 (07/21/24) 1,401 (06/23/24) 1,683 (05/19/24) Iron 58 (07/21/24) 64 (06/23/24) 58 (05/19/24) TIBC 192 (07/21/24) 253 (06/23/24) 253 (05/19/24) MCV 108.2 (07/21/24) 108.1 (06/23/24) 110.4 (05/21/24) Platelets 120 (07/21/24) 122 (06/23/24) 107 (05/21/24) BMM ASSESSMENT Calcium, Adjusted Total 9.1 07/21/24 9.7 06/23/24 9.9 05/19/24 Calcium 9.0 07/21/24 9.7 06/23/24 9.8 05/19/24 Phosphorus, Serum 3.8 07/21/24 8.0 07/05/24 6.4 06/23/24 Ca*PO4 34.2 07/21/24 62.1 06/23/24 56.8 05/19/24 PTH, Intact 362 06/23/24 Magnesium 2.4 07/21/24 2.0 06/23/24 2.1 05/19/24 Alkaline Phosphatase 139 07/21/24 176 06/23/24 116 05/19/24 Aluminum 7 06/23/24 5 05/28/24 NUTRITION ASSESSMENT Albumin 3.9 07/21/24 4.2 06/23/24 3.9 05/19/24 Potassium 4.4 07/21/24 4.2 07/07/24 3.9 06/30/24 Hemoglobin A1C 4.4 06/23/24 ADDITIONAL LABS White Blood Cells 3.5 (07/21/24) 5.7 (06/23/24) 3.9 (05/21/24) Cholesterol 145 (06/23/24) HDL 48 (06/23/24) LDL-Calc 84 (06/23/24) Triglycerides 64 (06/23/24) Hep B Surface Antibody <4 (06/23/24) <4 (05/28/24) Uric Acid 6.5 (06/23/24) ADDITIONAL COMMENT COMMENTS: Note in dialysis healthcare manager Signed by: BIANCA REYES MD on 07/30/2024 at 08:56:18 AM documented in this encounter Plan of Treatment Upcoming Encounters Date Type Department Care Team (Late st Contact Info) Description 10/28/2024 10:00 AM EDT Procedure visit [facility] [address] [place] [address] documented as of this encounter Visit Diagnoses Not on filedocumented in this encounter Care Teams Quality Engineer Relationship Specialty Start Date End Date Steve Nguyen MD [facility] [address] [place], [place] PCP - General 04/19/19 documented as of this encounter
--- OUTSIDE RECORDS SUMMARY | 2024-08-25 13:06 | XMS_ITS ---
Author Organization [facility] Address [address] [place] [address] Care Team Providers Care Heel Stiffener Name Role Phone Po Steve ANDERSEN Primary Care Provider Milton Poon [phone] REASON FOR VISIT ov recall Encounters Encounter Location Date Provider Diagnosis [facility] [address] [facility] [address] [place] [phone] 03/18/2023 Milton Freed Plan Of Treatment No Information Progress Notes * SHELL WALKERDOB:[birth year] (68 yo M)Acc No.[id number]:03/18/2023 Patient:?SHELL WALKER :1955???Age:68 Y???Sex:Male Address:[address] [place] [address], [address] * true * Date:? Generated for Malu knight/Ally/eTransmitting on:?08/25/2024 01:05 PM EDT
--- OUTSIDE RECORDS SUMMARY | 2024-08-25 13:06 | XMS_ITS | Encounter Summary ---
Author Organization [facility] Address [address] [place] [address] Phone Care Team Providers Care Structural Design Engineer Name Role Phone Steve Nguyen MD Primary Care Provider [phone] Encounter Details Date Type Department Care Team (Late st Contact Info) Description 06/25/2022 Documentation Only [facility] [address] [place] [address] [facility] [place] [address] [place] [phone] Social History Tobacco Use Types Packs/Day [...] suspected to have Coronavirus/COVID-19? No / Unsure 06/26/2022 12:41 PM EST documented as of this encounter Plan of Treatment Upcoming Encounters Date Type Department Care Team (Late st Contact Info) Description 10/28/2024 10:00 AM EDT Procedure visit [facility] [address] [place] [phone] documented as of this encounter Visit Diagnoses Not on filedocumented in this encounter Care Teams Structural Design Engineer Relationship Specialty Start Date End Date Steve Nguyen MD [address] PCP - General 04/19/19 documented as of this encounter
--- OUTSIDE RECORDS SUMMARY | 2024-08-25 13:06 | XMS_ITS | Encounter Summary ---
Author Organization [facility] Address [address] [place] [address] Phone Care Team Providers Care Aviation Electrical Technician Name Role Phone Steve Nguyen MD Primary Care Provider [phone] Encounter Details Date Type Department Care Team (Late st Contact Info) Description 07/28/2024 Telephone [facility] [address] [place] [address] [place] [phone] Pamela Cespedes [address] [place] [phone] Social History Tobacco Use Types Packs/Day Years [...] as of this encounter Miscellaneous Notes * Telephone Encounter - Pamela Cespedes - 07/28/2024 8:46 AM EST PRE-OP REMINDER COMMUNICATION Spoke to pt and confirmed VAC procedure scheduled on 07/29/24. Pre-procedure instructions reviewed with stated understanding. Covid screening also completed: YES NO COMMENTS Do you have or have you had COVID or coronavirus? [] [x] Have you been exposed to COVID or coronavirus? [] [x] Do you live with anyone with COVID or who has been exposed? [] [x] Have you had any COVID symptoms in the past month such as fever, chills, cough, sore throat, shortness of breath or any other cold/fu symptoms? [] [x] Have you been hospitalized in the past 2 weeks? [] [x] Do you reside in a facility? [] [x] documented in this encounter Plan of Treatment Upcoming Encounters Date Type Department Care Team (Late st Contact Info) Description 10/28/2024 10:00 AM EDT Procedure visit [facility] [address] [place] [address] documented as of this encounter Visit Diagnoses Not on filedocumented in this encounter Care Teams Aviation Electrical Technician Relationship Specialty Start Date End Date Steve Nguyen MD [facility] [address] [place], [place] PCP - General 04/19/19 documented as of this encounter
--- OUTSIDE RECORDS SUMMARY | 2024-08-25 13:06 | XMS_ITS | Encounter Summary ---
Author Organization [facility] Address [address] [place] [address] Phone Care Team Providers Care Frontend Engineer Name Role Phone Steve Nguyen MD Primary Care Provider [phone] Encounter Details Date Type Department Care Team (Late st Contact Info) Description 09/02/2021 Documentation Only [facility] [address] [place] [phone] Bakari Wells MD [address] [place] [address] [place] [phone] Social History Tobacco Use Types Packs/Day Years [...] visit [facility] [address] [place] [phone] documented as of this encounter Visit Diagnoses Not on filedocumented in this encounter Care Teams Frontend Engineer Relationship Specialty Start Date End Date Steve Nguyen MD [address] [place] PCP - General 04/19/19 documented as of this encounter
--- OUTSIDE RECORDS SUMMARY | 2024-08-25 13:06 | XMS_ITS | Patient Health Record ---
Author Organization [facility] Address [address] [place] [phone] Care Team Providers Care Compass Operator Name Role Phone Po Steve ANDERSEN Primary Care Provider Milton Poon Unavailable [phone] Allergies No Known Allergies Reason For Referral No Information Medications Medication SIG (Take, Route, Frequency, Duration) Notes Start Date End Date Status traMADol HCl 50 MG Oral for 30 Active hydrALAZINE HCl 50 MG Oral for 90 Active Furosemide 80 MG 1 tablet Orally BID Active Hydroxychloroquine Sulfate 2 00 MG as directed Orally qod Activ e Terazosin HCl 5 MG 1 capsule Orally Onc e a day Active Pravastatin Sodium 20 MG 1 tablet Orally Once a day Active Anoro Ellipta 62.5-25 MCG/INH Inhalation for 30 Active Calcitriol 0.5 MCG Oral for 90 Active amLODIPine Besylate 5 MG Oral for 90 Active Isosorbide Mononitrate ER 30 MG TAKE 1 TABLET BY MOUTH DAILY Oral for 90 Active ProAir HFA 108 (90 Base) MCG/ACT 2 puffs as needed Inhalation every 6 hrs Active Omeprazole 40 MG Oral for 30 A ctive Vitamin D (Ergocalciferol) 1.25 MG (91937 UT) TAKE 1 CAPSULE BY MOUTH ONE TIME PER WEEK *DRUG NT CVD* Oral for 83 Active Ferrous Sulfate 325 (65 Fe) MG TAKE 1 TA BLET (325 MG TOTAL) BY MOUTH 1 (ONE) TIME EACH DAY WITH BREAKFAST Oral for 90 Active predniSONE 10 MG PLEASE SEE ATTACHED FOR DETAILED DIRECTIONS Oral for 28 Active oxyCODONE HCl Active Vitamin D2 10 MCG (400 UNIT) 2 tablets O rally Once a day for 30 day(s) Active FreeStyle Lancets - USE TO TEST TWICE A DAY DIRECTED for 90 Active Simethicone Active Sucralfate 1 GM Oral for 30 Ac tive Losartan Potassium 100 MG 1 tablet Orall y Once a day for 30 day(s) Active Eliquis 2.5 MG Oral for 30 Act moriah Iron (Ferrous Sulfate) 325 ( 65 Fe) MG 1 tablet Orally Once a day for 30 day(s) Active FreeStyle Lite w/Device DIRECTED for 30 Active Ketoconazole 2 % External for 15 Active Sevelamer Carbonate 800 MG Oral for 90 Active Immunizations Vaccine Route Administration Date Status Comme nts Influenza Unknown 05/06/2017 Administered Influenza Unknown 03/26/2021 Administered Influenza Unknown 02/13/2022 Administered Influenza Unknown 03/16/2023 Administered Influenza Unknown 01/01/2021 Refused Social History Tobacco Use: Social History Observation [...] Stopped smoking in 2011; no sig alcohol . He is originally from [place]. Stopped smoking in 2011; no sig alcohol . He is originally from [place]. Stopped smoking in 2011; no sig alcohol since age 48; heavy drinker from age 18 to age 48. He is originally from [place]. Stopped smoking in 2011; no sig alcohol since age 48; heavy drinker from age 18 to age 48. He is originally from [place]. Stopped smoking in 2011; no sig alcohol since age 48; heavy drinker from age 18 to age 48. He is originally from [place]. Stopped smoking in 2011; no sig alcohol since age 48; heavy drinker from age 18 to age 48. He is originally from [place]. Stopped smoking in 2011; no sig alcohol since age 48; heavy drinker from age 18 to age 48. He is originally from [place]. Problems Problem Type SNOMED Code ICD Code Onset Dates Problem Status W/U Status Risk Notes Problem 593776346 Encounter for screening for malignant neoplasm of colon (Z12.11) Active confirmed Problem 839319305 Alcoholic cirrhosis of liver without ascites (K70.30) Active confirmed Problem 000764931 Alcoholic cirrhosis of liver with ascites (K70.31) Active confirmed Problem 59875898 Constipation, unspecified constipation type (K59.00) Active confirmed Problem 310613661 Hx of adenomatou s colonic polyps (Z86.010) Active confirmed Problem Chronic liver disease (097966514) Chronic liver disease (K76.9) Active confirmed Problem 785745871 Lower extremity edema (R60.0) Active confirmed Plan Of Treatment Pending Test Test Name Order Date LIVER PROFILE 11/20/2021 LIVER PROFILE 07/18/2022 CBC w DIFF 11/20/2021 CBC w DIFF 07/18/2022 PROTHROMBIN TIME (PT, INR) 11/20/2021 PROTHROMBIN TIME (PT, INR) 01/01/2021 HEPATITIS B, C PROFILE 01/01/2021 [id number] (A1A) 01/01/2021 ALPHA-FETOPROTEIN,TUMOR MARKER 3 ALPHA-FETOPROTEIN,TUMOR MARKER 1 ALPHA-FETOPROTEIN,TUMOR MARKER 2 HCV LIVER FIBROSIS, FIBRO TEST 1 US ABDOMEN COMP WITH ELASTOGRAPHY 2021 US ABDOMEN COMP WITH ELASTOGRAPHY 2020 Prothrombin Time INR 07/18/2022 Liver Fibrosis Pnl 11/20/2021 Liver Fibrosis Pnl 07/18/2022 Mitochondrial Antibody 01/01/2021 Future Test Test Name Order Date COLONOSCOPY 04/23/2018 Insurance Providers Payer Name Payer Address Payer Phone Subscriber Number Group Number Insured Name Patient Relationship to Insured Coverage Start Date Coverage End Date [facility] [address] [address] [place] [address] [id number] SHELL WALKER Self - patient is the insured Medical (General) History Medical History History ICD Code Hypertension Chronic renal failure on hem odialysis 3 times per week as of the spring Diet-controlled DM Denies TN nor CVA Neuropathy in the LE's COPD Colonoscopy in 06/2012 with Wilver Dewitt--small tubular adenoma removed---previous colonoscopy in [place] had reported polyps removed as well Sleep apnea--uses CPAP Anemia Anxiety Depression Gout Lupus--Dr. Birch--Dx'd in 2019 Colonoscopy 05/2018 with removal of a sm all tubular adenoma Chronic liver disease probab ly due to EtOH seen on 12/2020 CT scan which was suggestive of cirrhosis with minimal ascites and no sign of splenomegaly--describes a neg. EGD in [place] before moving to [place]; his liver w/u was negative including normal Iron studies and Ferritin at age 58; abdominal ultrasound in 01/2021 describes actually a normal-appearing liver and spleen, with only minimal trace fluid around the spleen and a small right pleural effusion. The elastography was only 1.4 which is just about in the normal range; his liver fibrosis score was in the F1-F2 range as well Significant lower extremity edema and ve nous stasis Hospitalization in November for GI bleeding. I went an upper endoscopy with the finding of some duodenitis and esophagitis, but biopsies were negative for celiac disease and negative for H. pylori. A colonoscopy revealed only some small tubular adenomas and was otherwise nonrevealing. He small bowel video capsule study in January of 2023 revealed some duodenitis and esophagitis, but no other abnormalities nor any sign of bleeding. Pacemaker placed in the spring Surgical History Surgery Date(Month/Year) Cataract-lens implants Carpal tunnel on the left Tonsillectomy LE veins HD fistula left arm 04/2022 Laparotomy at [facility] in [facility] 2022 for what sounds like a small bowel obstruction and some small bowel resection
--- OUTSIDE RECORDS SUMMARY | 2024-08-25 13:06 | XMS_ITS | Encounter Summary ---
Author Organization [facility] Address [address] [address] Phone Care Team Providers Care Treating Plant Pumper Name Role Phone Steve Nguyen MD Primary Care Provider [phone] Encounter Details Date Type Department Care Team (Late st Contact Info) Description 08/16/2024 Treatment [facility] [address] [address] Bianca Reyes MD [address] [address] End stage renal disease; Dependence [...] Dialysis Note - Bianca Reyes MD - 08/16/2024 12:00 AM EST Patient: Dimitrios Meyer : 1955 Note Type: Dialysis Rounds-Comp Service Date: 08/16/2024 This patient was personally seen for a complete visit as part of routine monthly dialysis care for end stage renal disease. Attending Sales Advisor: BIANCA REYES MD Dialysis Location: [facility] Schedule: Shift: 1 OVERVIEW Patient is stable. 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 Fluid status acceptable. ADEQUACY ASSESSMENT Target met. Kt/V, Natural Log 1.41 (07/21/24) 1.21 (06/23/24) 1.30 (05/19/24) UREA REDUCTION RATIO (%) 70 (07/21/24) 64 (06/23/24) 69 (05/19/24) BUN 67 (07/21/24) 59 (06/23/24) 32 (05/19/24) BUN Post Dialysis 20 (07/21/24) 21 (06/23/24) 10 (05/19/24) Creatinine 9.82 (07/21/24) 5.71 (06/23/24) 5.71 (05/19/24) Bicarbonate (CO2) 24 (07/21/24) 24 (06/23/24) 29 (05/19/24) Sodium 134 (07/21/24) 138 (06/23/24) 143 (05/19/24) ACCESS ASSESSMENT Vascular access examined. ANEMIA ASSESSMENT Anemia targets met. Hgb 11.0 (08/04/24) 11.5 (07/21/24) 10.2 (07/07/24) Iron Saturation (TSat) 30 (07/21/24) 25 (06/23/24) 23 (05/19/24) Ferritin 753 (07/21/24) 1,401 (06/23/24) 1,683 (05/19/24) Iron 58 (07/21/24) 64 (06/23/24) 58 (05/19/24) TIBC 192 (07/21/24) 253 (06/23/24) 253 (05/19/24) MCV 108.2 (07/21/24) 108.1 (06/23/24) 110.4 (05/21/24) Platelets 120 (07/21/24) 122 (06/23/24) 107 (05/21/24) BMM ASSESSMENT PTH within target. Phosphorus controlled. Calcium controlled. Bone and mineral metabolism parameters reviewed. Calcium, Adjusted Total 9.1 07/21/24 9.7 06/23/24 9.9 05/19/24 Calcium 9.0 07/21/24 9.7 06/23/24 9.8 05/19/24 Phosphorus, Serum 3.8 07/21/24 8.0 07/05/24 6.4 06/23/24 Ca*PO4 34.2 07/21/24 62.1 06/23/24 56.8 05/19/24 PTH, Intact 362 06/23/24 Magnesium 2.4 07/21/24 2.0 06/23/24 2.1 05/19/24 Alkaline Phosphatase 139 07/21/24 176 06/23/24 116 05/19/24 Aluminum 7 06/23/24 5 05/28/24 NUTRITION ASSESSMENT Albumin not at goal. Albumin 3.9 07/21/24 4.2 06/23/24 3.9 05/19/24 Potassium 4.3 08/09/24 4.1 08/02/24 4.4 07/21/24 Hemoglobin A1C 4.4 06/23/24 PHYSICAL EXAM Exam performed. Vital Signs Reviewed. Lungs - Clear. CV - Blood pressure noted. No edema. EXT - No ulcers. 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 Signed by: BIANCA REYES MD on 08/16/2024 at 11:02:00 PM documented in this encounter Plan of Treatment Upcoming Encounters Date Type Department Care Team (Late st Contact Info) Description 10/28/2024 10:00 AM EDT Procedure visit [facility] [address] [place] [address] [place] [address] documented as of this encounter Visit Diagnoses Diagnosis End stage renal disease Dependence on renal dialysis documented in this encounter Care Teams Treating Plant Pumper Relationship Specialty Start Date End Date Steve Nguyen MD [facility] [place] [address] [place] PCP - General 04/19/19 documented as of this encounter
--- OUTSIDE RECORDS SUMMARY | 2024-08-25 13:06 | XMS_ITS | Encounter Summary ---
Author Organization [facility] Address [address] [place] [phone] Phone Care Team Providers Care Product Marketing Executive Name Role Phone Steve Nguyen MD Primary Care Provider [phone] Encounter Details Date Type Department Care Team (Late st Contact Info) Description 07/28/2024 Telephone [facility] [address] [place] [phone] Pamela Cespedes [address] [place] [phone] Social History Tobacco Use Types Packs/Day Years [...] visit [facility] [address] [place] [phone] documented as of this encounter Visit Diagnoses Not on filedocumented in this encounter Care Teams Product Marketing Executive Relationship Specialty Start Date End Date Steve Nguyen MD [facility] [place] [address] [place] PCP - General 04/19/19 documented as of this encounter
--- OUTSIDE RECORDS SUMMARY | 2024-08-25 13:06 | XMS_ITS | Encounter Summary ---
Author Organization [facility] Address [address] [phone] Phone Care Team Providers Care Slide Fasteners Inspector Name Role Phone Steve Nguyen MD Primary Care Provider [phone] Encounter Details Date Type Department Care Team (Late st Contact Info) Description 08/11/2024 Treatment [facility] [address] [phone] Bianca Reyes MD [address] [phone] Social History Tobacco Use Types [...] Dialysis Note - Bianca Reyes MD - 08/11/2024 12:00 AM EST Patient: Dimitrios Meyer : 1955 Note Type: Dialysis Rounds-Basic Service Date: 08/11/2024 This patient was personally seen for a basic visit as part of routine monthly dialysis care for end stage renal disease. Attending Court Magistrate: BIANCA REYES MD Dialysis Location: [facility] Schedule: Shift: 1 OVERVIEW Patient is stable. 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 HOME MEDICATIONS Current [facility] Outpatient [...] week Start Date: 05/27/2024 VITAMIN D (ERGOCALCIFEROL) 97184 UNITS PO CAPS Take 1 capsule by [...] 138 (06/23/24) 143 (05/19/24) ANEMIA ASSESSMENT Hgb 11.0 (08/04/24) 11.5 (07/21/24) 10.2 (07/07/24) [...] 08/02/24 4.4 07/21/24 Hemoglobin A1C 4.4 06/23/24 ADDITIONAL LABS White Blood Cells 3.5 (07/21/24) 5.7 (06/23/24) 3.9 (05/21/24) Cholesterol 145 (06/23/24) HDL 48 (06/23/24) LDL-Calc 84 (06/23/24) Triglycerides 64 (06/23/24) Hep B Surface Antibody <4 (06/23/24) <4 (05/28/24) Uric Acid 6.5 (06/23/24) ADDITIONAL COMMENT 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 Signed by: BIANCA REYES MD on 08/11/2024 at 08:36:39 AM documented in this encounter Plan of Treatment Upcoming Encounters Date Type Department Care Team (Late st Contact Info) Description 10/28/2024 10:00 AM EDT Procedure visit [facility] [address] [place] [address] documented as of this encounter Visit Diagnoses Not on filedocumented in this encounter Care Teams Slide Fasteners Inspector Relationship Specialty Start Date End Date Steve Nugyen MD [facility] [address] [place], [place] PCP - General 04/19/19 documented as of this encounter
--- OUTSIDE RECORDS SUMMARY | 2024-08-25 13:06 | XMS_ITS | Encounter Summary ---
Author Organization [facility] Address [address] [address] Phone Care Team Providers Care President Finance Company Name Role Phone Steve Nguyen MD Primary Care Provider [phone] Encounter Details Date Type Department Care Team (Late st Contact Info) Description 08/09/2024 Treatment [facility] [address] [phone] Bianca Reyes MD [address] [address] Social History Tobacco Use Types [...] Dialysis Note - Bianca Reyes MD - 08/09/2024 12:00 AM EST Patient: Dimitrios Meyer : 1955 Note Type: Dialysis Rounds-Basic Service Date: 08/09/2024 This patient was personally seen for a basic visit as part of routine monthly dialysis care for end stage renal disease. Attending Sales Development Representative: BIANCA REYES MD Dialysis Location: [facility] Schedule: Shift: 1 OVERVIEW Patient is stable. COMMENTS: Note in dialysis ramp manager HOME MEDICATIONS Current [facility] Outpatient [...] week Start Date: 05/27/2024 VITAMIN D (ERGOCALCIFEROL) 64167 UNITS PO CAPS Take 1 capsule by [...] 3.9 07/21/24 4.2 06/23/24 3.9 05/19/24 Potassium 4.1 08/02/24 4.4 07/21/24 4.2 07/07/24 Hemoglobin A1C 4.4 06/23/24 ADDITIONAL LABS White Blood Cells 3.5 (07/21/24) 5.7 (06/23/24) 3.9 (05/21/24) Cholesterol 145 (06/23/24) HDL 48 (06/23/24) LDL-Calc 84 (06/23/24) Triglycerides 64 (06/23/24) Hep B Surface Antibody <4 (06/23/24) <4 (05/28/24) Uric Acid 6.5 (06/23/24) ADDITIONAL COMMENT COMMENTS: Note in dialysis ramp manager Signed by: BIANCA REYES MD on 08/09/2024 at 08:54:17 AM documented in this encounter Plan of Treatment Upcoming Encounters Date Type Department Care Team (Late st Contact Info) Description 10/28/2024 10:00 AM EDT Procedure visit [facility] [address] [place] [address] documented as of this encounter Visit Diagnoses Not on filedocumented in this encounter Care Teams President Finance Company Relationship Specialty Start Date End Date Steve Nguyen MD [facility] [address] [place], [place] PCP - General 04/19/19 documented as of this encounter
--- OUTSIDE RECORDS SUMMARY | 2024-08-25 13:06 | XMS_ITS | Encounter Summary ---
Author Organization [facility], Address [address] [place] [address] Phone Care Team Providers Care Store Operations Specialist Name Role Phone Steve Nguyen MD Primary Care Provider [phone] Reason for Visit * Reason Onset Date Comments post op call 08/01/2024 Encounter Details Date Type Department Care Team (Late st Contact Info) Description 08/01/2024 Telephone [facility], - Vascular Access Center [address] [place] [address] Sylvie Daniel [address] [place] [phone] post op call Social History Tobacco Use Types Packs/Day Years [...] encounter Miscellaneous Notes * Telephone Encounter - Sylvie Daniel - 08/01/2024 2:54 PM EST POST PROCEDURE TELEPHONE INTERVIEW RESULTS OF CALL: [x]Spoke with patient. []Spoke with family member. []Spoke with outside facility: []Spoke with dialysis unit: []No answer. []Left message to call back: []Answering machine cannot accept message at this time. []Busy x2 PATIENT STATUS: [x]No problems or questions. []Bleeding. []Swelling. []Hand numbness/weakness/pain. []Nausea/vomiting. []Fever/chills. []Other procedure related problems: [x]POST OP INSTRUCTIONS REVIEWED WITH STATED UNDERSTANDING. []POST OP INSTRUCTIONS REVIEWED ON ANSWERING MACHINE. []ACTION PLAN IF NEEDED: documented in this encounter Plan of Treatment Upcoming Encounters Date Type Department Care Team (Late st Contact Info) Description 10/28/2024 10:00 AM EDT Procedure visit [facility] - Vascular Access Center [address] [place] [address] documented as of this encounter Procedures Procedure Name Priority Date/Time Associated Diagnosis Comments COLLECTION DATE (HC) Routine 08/20/2024 3:00 AM EST LIH () Routine 08/20/2024 3:00 AM EST KT/V NATURAL LOG, URR () Routine 08/20/2024 3:00 AM EST LIH (HC) Routine 08/18/2024 3:00 AM EST KT/V NATURAL LOG, URR () Routine 08/18/2024 3:00 AM EST CALCIUM PHOSPHORUS PRODUCT, ADJUSTED (HC) Routine 08/18/2024 3:00 AM EST HEPATITIS B SURFACE ANTIGEN W/REFL CONFIRM Routine 08/18/2024 3:00 AM EST TRANSFERRIN SATURATION Routine 3:00 AM EST CBC AND DIFFERENTIAL Routine 08/18/2024 3:00 AM EST ALT Routine 08/18/2024 3:00 AM EST AST Routine 08/18/2024 3:00 AM EST PROTEIN, TOTAL, SERUM Routine 08/18/2024 3:00 AM EST ALKALINE PHOSPHATASE Routine 08/18/2024 3:00 AM EST MAGNESIUM Routine 08/18/2024 3:00 AM EST LACTATE DEHYDROGENASE Routine 08/18/2024 3:00 AM EST GLUCOSE, RANDOM Routine 08/18/2024 3:00 AM EST FERRITIN Routine 08/18/2024 3:00 AM EST CREATININE, SERUM Routine 08/18/2024 3:0 0 AM EST BILIRUBIN, TOTAL Routine 08/18/2024 3:00 AM EST ELECTROLYTE PANEL Routine 08/18/2024 3:0 0 AM EST LIH (HC) Routine 08/09/2024 3:00 AM EST POTASSIUM Routine 08/09/2024 3:00 AM EST HEMOGLOBIN Routine 08/04/2024 3:00 AM EST COLLECTION DATE (HC) Routine 08/02/2024 3:00 AM EST LIH (HC) Routine 08/02/2024 3:00 AM EST POTASSIUM Routine 08/02/2024 3:00 AM EST documented in this encounter Results * LIH (08/20/2024 3:00 AM EST) Lipemia Normal Normal [facility] Icterus Normal Normal [facility] Hemolysis Normal Normal [facility] 08/20/2024 3:00 AM EST 08/23/2024 2:08 PM EDT Ezequiel Reyes MD LAB HISTORICA [id number] RESULTS Final Result Performing Organization Address [facility] Phone Number [facility]PS [facility] [address] [place] [address] * Collection Date (08/20/2024 3:00 AM EST) Collection Date See Comment [facility] Comment: Patient sample received may exceed specimen stability, based on the collection date electronically provided. ??When reviewing patient results, verify collection information and consider specimen stability before acting on any critical or panic results. 08/20/2024 3:00 AM EST us Ezequiel Reyes MD LAB HISTORICA [id number] RESULTS Final Result Performing Organization Address [facility] Phone Number [facility] [address] [place] [address] * (ABNORMAL) Kt/V Natural Log, URR (08/20/2024 3:00 AM EST) Treatment Time 239 min [facility] Pre-Weight, lb [...] PM EDT Ezequiel Reyes MD LAB HISTORICA [id number] RESULTS Final Result Performing Organization Address [facility]/ZIP Co de Phone Number [facility] [address] [place] [address] * (ABNORMAL) TSAT (08/18/2024 3:00 AM EST) Iron 74 65 - 175 ug/dL [facility] Transferrin 165(L) 215 - 365 mg/dL [facility] TIBC 231 211 - 406 ug/dL [facility] Iron Saturation (TSat) 32 22 - 52 % [facility] 08/18/2024 3:00 AM EST 08/19/2024 2:01 PM EST Ezequiel Reyes MD LAB BLOOD ORDERABLES Final Result Performing Organization Address [facility] de Phone Number [facility] [address] [place] [address] * Protein, total (08/18/2024 3:00 AM EST) Total Protein 7.0 6.4 - 8.9 g/dL [facility] 08/18/2024 3:00 AM EST 08/19/2024 2:01 PM EST Ezequiel Reyes MD LAB BLOOD ORDERABLES Final Result Performing Organization Address [facility] de Phone Number [facility] [address] [place] [address] * Magnesium (08/18/2024 3:00 AM EST) Magnesium 2.2 1.9 - 2.7 mg/dL [facility] 08/18/2024 3:00 AM EST 08/19/2024 2:01 PM EST us Ezequiel Reyes MD LAB BLOOD ORDERABLES Final Result Performing Organization Address [facility] de Phone Number [facility] [address] [place] [address] * (ABNORMAL) Electrolyte panel (08/18/2024 3:00 AM EST) Sodium 135(L) 136 - 145 mEq/L [facility] Potassium 4.2 3.4 - 5.0 mEq/L [facility] Chloride 94(L) 98 - 107 mEq/L [facility] Bicarbonate (CO2) 26 21 - 31 mEq/L [facility] Anion Gap 15(H) 3 - 14 mEq/L [facility] 08/18/2024 3:00 AM EST 08/19/2024 2:01 PM EST Ezequiel Reyes MD LAB BLOOD ORDERABLES Final Result Performing Organization Address [facility]/ZIP Co de Phone Number [facility] [address] [place] [address] * LIH (08/18/2024 3:00 AM EST) Lipemia Normal Normal [facility] Icterus Normal Normal [facility] Hemolysis Normal Normal [facility] 08/18/2024 3:00 AM EST 08/19/2024 2:01 PM EST Ezequiel Reyes MD LAB HISTORICA [id number] RESULTS Final Result Performing Organization Address [facility] de Phone Number [facility] [address] [place] [address] * (ABNORMAL) Lactate dehydrogenase (08/18/2024 3:00 AM EST) LDH 292(H) 120 - 246 U/L [facility] 08/18/2024 3:00 AM EST 08/19/2024 2:01 PM EST Ezequiel Reyes MD LAB BLOOD ORDERABLES Final Result Performing Organization Address [facility] Co de Phone Number [facility] [address] [place] [address] * Bilirubin, total (08/18/2024 3:00 AM EST) Total Bilirubin 0.7 0.3 - 1.2 mg/dL [facility] 08/18/2024 3:00 AM EST 08/19/2024 2:01 PM EST us Ezequiel Reyes MD LAB BLOOD ORDERABLES Final Result Performing Organization Address [facility] Co de Phone Number [facility] [address] [place] [address] * (ABNORMAL) Creatinine, serum (08/18/2024 3:00 AM EST) Creatinine 6.29(H) 0.70 - 1.30 mg/dL [facility] 08/18/2024 3:00 AM EST 08/19/2024 2:01 PM EST us Ezequiel Reyes MD LAB BLOOD ORDERABLES Final Result Performing Organization Address [facility] de Phone Number [facility] [address] [place] [address] * Glucose, random (08/18/2024 3:00 AM EST) Glucose 93 74 - 109 mg/dL [facility] 08/18/2024 3:00 AM EST 08/19/2024 2:01 PM EST us Ezequiel Reyes MD LAB BLOOD ORDERABLES Final Result Performing Organization Address [facility] de Phone Number [facility] [address] [place] [address] * ALT (08/18/2024 3:00 AM EST) ALT (SGPT) 14 10 - 49 U/L [facility] 08/18/2024 3:00 AM EST 08/19/2024 2:01 PM EST us Ezequiel Reyes MD LAB BLOOD ORDERABLES Final Result Performing Organization Address [facility] de Phone Number [facility] [address] [place] [address] * AST (08/18/2024 3:00 AM EST) AST (SGOT) 22 <34 U/L [facility] 08/18/2024 3:00 AM EST 08/19/2024 2:01 PM EST us Ezequiel Reyes MD LAB BLOOD ORDERABLES Final Result Performing Organization Address [facility]/ZIP Co de Phone Number [facility] [address] [place] [address] * (ABNORMAL) Calcium Phosphorus Product, Adjusted (08/18/2024 3:00 AM EST) Albumin 4.3 3.6 - 5.4 g/dL [facility] Calcium 9.4 8.6 - 10.3 mg/dL [facility] Phosphorus, Serum 8.5(H) 2.5 - 5.0 mg/dL [facility] Ca*PO4 79.9(A) <55.0 mg2/dL2 [facility] Calcium, Adjusted Total 9.4 8.6 - 10.3 mg/dL [facility] CA*PO4 CORRCTD 79.9(A) <55.0 mg2/dL2 [facility] 08/18/2024 3:00 AM EST 08/19/2024 2:01 PM EST us Ezequiel Reyes MD LAB HISTORICA [id number] RESULTS Final Result Performing Organization Address [facility]/ZIP Co de Phone Number [facility] [address] [place] [address] * (ABNORMAL) Alkaline phosphatase (08/18/2024 3:00 AM EST) Alkaline Phosphatase 162(H) 46 - 116 U/L [facility] 08/18/2024 3:00 AM EST 08/19/2024 2:01 PM EST us Ezequiel Reyes MD LAB BLOOD ORDERABLES Final Result Performing Organization Address [facility]/ZIP Co de Phone Number [facility] [address] [place] [address] * Hepatitis B Surface Ag w/Reflex Confirmation (08/18/2024 3:00 AM EST) Pathologist [facility] Hep B Surface Antigen Negative Negative [facility] 08/18/2024 3:00 AM EST 08/19/2024 2:01 PM EST us Ezequiel Reyes MD LAB BLOOD ORDERABLES Final Result Performing Organization Address [facility] de Phone Number [facility] [address] [place] [address] * (ABNORMAL) Ferritin (08/18/2024 3:00 AM EST) Pathologist [facility] Ferritin 1,541(H) 22 - 322 ng/mL [facility] 08/18/2024 3:00 AM EST 08/19/2024 2:01 PM EST Ezequiel Reyes MD LAB BLOOD ORDERABLES Final Result Performing Organization Address [facility] de Phone Number [facility] [address] [place] [address] * (ABNORMAL) Kt/V Natural Log, URR (08/18/2024 3:00 AM EST) Pathologist [facility] Treatment Time 243 min [facility] Pre-Weight, lb 105.3 kg [facility] Post-Weight, lb 103.0 kg [facility] Ultrafiltration Rate 6 <=13 mL/kg/hr [facility] Comment: Recommend achieving Ultrafiltration Rate (UFR) <=10 mL/kg/hr References: Maria M TAFOYA et al. Kidney Int. 2010; 79(2):250-257 BUN 64(H) 7 - 25 mg/dL [facility] BUN Post Dialysis 34(H) 7 - 25 mg/dL [facility] UREA REDUCTION RATIO (%) 47(L) >=65 % [facility] Kt/V Natural Log 0.74(L) >=1.2 [facility] 08/18/2024 3:00 AM EST 08/19/2024 2:00 PM EST Ezequiel Reyes MD LAB HISTORICA [id number] RESULTS Final Result [facility] [address] [place] [address] * (ABNORMAL) CBC and Differential (08/18/2024 3:00 AM EST) Pathologist [facility] DIFFERENTIAL MANUAL, 2 Not Indicated [facility] White [...] Reyes MD LAB BLOOD ORDERABLES Final Result [facility] [address] [place] [address] * Potassium (08/09/2024 3:00 AM EST) [facility] Potassium 4.3 3.4 - 5.0 mEq/L [facility] 08/09/2024 3:00 AM EST 08/10/2024 12:55 PM EST us Ezequiel Reyes MD LAB BLOOD ORDERABLES Final Result Performing Organization Address [facility] Co de Phone Number [facility] [address] [place] [address] * LIH (08/09/2024 3:00 AM EST) Lipemia Normal Normal [facility] Icterus Normal Normal [facility] Hemolysis Normal Normal [facility] 08/09/2024 3:00 AM EST 08/10/2024 12:55 PM EST us Ezequiel Reyes MD LAB HISTORICA [id number] RESULTS Final Result Performing Organization Address [facility] de Phone Number [facility] [address] [place] [address] * (ABNORMAL) Hemoglobin (08/04/2024 3:00 AM EST) Hgb 11.0(L) 13.7 - 17.5 g/dL [facility] Hemoglobin x 3 33.0(L) 41.1 - 52.5 g/dL [facility] 08/04/2024 3:00 AM EST 08/05/2024 12:51 PM EST us Ezequiel Reyes MD LAB BLOOD ORDERABLES Final Result Performing Organization Address [facility] de Phone Number [facility] [address] [place] [address] * Potassium (08/02/2024 3:00 AM EST) Potassium 4.1 3.4 - 5.0 mEq/L [facility] 08/02/2024 3:00 AM EST 08/05/2024 3:23 PM EST us Ezequiel Reyes MD LAB BLOOD ORDERABLES Final Result Performing Organization Address [facility]/ZIP Co de Phone Number [facility] [address] [place] [address] * LIH (08/02/2024 3:00 AM EST) Lipemia Normal Normal [facility] Icterus Normal Normal [facility] Hemolysis Normal Normal [facility] 08/02/2024 3:00 AM EST 08/05/2024 3:23 PM EST Ezequiel Reyes MD LAB HISTORICA [id number] RESULTS Final Result Performing Organization Address [facility] Co de Phone Number [facility] [address] [place] [address] * Collection Date (08/02/2024 3:00 AM EST) Collection Date See Comment [facility] Comment: Patient sample received may exceed specimen stability, based on the collection date electronically provided. ??When reviewing patient results, verify collection information and consider specimen stability before acting on any critical or panic results. 08/02/2024 3:00 AM EST Ezequiel Reyes MD LAB HISTORICA [id number] RESULTS Final Result Performing Organization Address [facility] de Phone Number [facility] [address] [place] [address] documented in this encounter Visit Diagnoses Not on filedocumented in this encounter Care Teams Store Operations Specialist Relationship Specialty Start Date End Date Steve Nguyen MD [facility] [address] [place] PCP - General 04/19/19 documented as of this encounter
[2024-08-26 17:14] LABS: Complement C3 135 mg/dL (82-185)
[2024-08-26 20:23] LABS: Anti DNA DS Antibody 1 IU/mL
== END 2024-08-25 10:28 | disposition home or self-care (01) ==
LOC: HO.LAB 10:27
PROVIDERS: Student in an Organized Health Care Education/Training Program; PCP Internal Medicine; Visit Provider Internal Medicine Cardiovascular Disease
DX: I48.0 Paroxysmal atrial fibrillation (principal); M32.9 Systemic lupus erythematosus, unspecified
CPT/HCPCS: 36415; 80053; 85025; 85610; 85652; 86140; 86160; 86225

== ENCOUNTER → 2024-08-31 23:59 | Outpatient (BNV) | payer MEDICARE, SELFPAY | PROVIDERS: PCP Internal Medicine; Visit Provider Internal Medicine Cardiovascular Disease | DX: I25.82 Chronic total occlusion of coronary artery (principal); I20.89 Other forms of angina pectoris; R93.1 Abnormal findings on diagnostic imaging of heart and coronary circulation | CPT/HCPCS: 92943; 92972; 93458; 99152 ==

== ENCOUNTER 2024-09-14 09:01 | Outpatient (AMB) | payer MEDICARE, SELFPAY ==
[2024-09-14 09:08] VITALS: BP 118/62; PULSE 64; O2SAT 97; BMI 32.1
--- NOTE | 2024-09-14 09:08 | A.OFFPC_ITS ---
Vital Signs 09/14/24 09:08 Height 5 ft 11 in Weight 230 lb BMI 32.1 BP 118/62 Blood Pressure Location Lt brachial Position Sitting Pulse 64 Pulse Source Pulse Oximeter Pulse Oximetry (%) 97 Oxygen Delivery Method Room Air Intake Visit Reasons: follow up appt Allergies No Known Allergies [No Known Allergies*] Allergy (Verified 09/14/24 09:09) Medication List - Last Reconciled 09/14/24 by Steve Nguyen MD albuterol sulfate 90 mcg/actuation (ProAir HFA) 2 puffs inhalation Q6H PRN amlodipine 5 mg PO DAILY Anoro Ellipta 62.5-25 mcg/actuation (umeclidinium-vilanterol) 1 ea inhalation DAILY NS [APAP 5-15 cm H20 humidified AIR As directed] apixaban 2.5 mg PO BID blood sugar diagnostic (FreeStyle Lite Strips) As directed check the BS BID blood-glucose meter (FreeStyle Lite Meter kit) As directed clopidogrel 75 mg PO DAILY compr.stocking,thigh,reg,x-lrg As directed 20-30 mm HG kylah.stocking,knee,reg,xlrg As directedcompression stockings bilateral adjustable lower extremity garments ergocalciferol (vitamin D2) 50 mcg PO DAILY hydroxychloroquine 200 mg PO Q OTHER DAY [Juxta Lite Compression wraps - Adjustable -for chronic ulcers with open wounds bilat lower extremities As directed] ketoconazole 2% appl topical DAILY lancets (FreeStyle Lancets) As directed check BS BID metoprolol tartrate 25 mg PO BID midodrine 5 mg PO DAILY polyethylene glycol 3350 (Miralax) 17 grams PO DAILY PRN pravastatin 20 mg PO DAILY sevelamer carbonate mg PO tramadol 50 mg PO BEDTIME Tobacco use date assessed: 09/14/24 Fall risk assessment: No Falls in past year Last assessed Fall Risk: 09/14/24 Dental Screening Dental Screen Date: 09/14/24 Did you have a dental visit in the last 12 months?: Yes Did you have a dental problem in the last 6 months where you did not have access to dental care?: No Was dental information given to patient?: Patient has dentist COUNT INCLUDES [facility] Medical History Blood clot in arm (~04/11/24) CKD (chronic kidney disease) stage 4, GFR 15-29 ml/min Obstructive sleep apnea HTN (hypertension) Dermatitis associated with moisture from stool incontinence Clostridioides difficile diarrhea Urinary retention with incomplete bladder emptying Pacemaker Pancytopenia Incomplete emptying of bladder due to benign prostatic hyperplasia Acute kidney injury superimposed on chronic kidney disease Fistula Paroxysmal A-fib Diastolic heart failure Pulmonary hypertension Depression, major Afib Bradycardia Scrotal edema Anasarca Cirrhosis Lymphedema Type 2 diabetes mellitus with hyperglycemia Osteoarthritis Peripheral neuropathy BPH (benign prostatic hyperplasia) Venous stasis dermatitis Obesity (BMI 30-39.9) Hypercholesterolemia Peripheral vascular disease Pulmonary hypertension Essential thrombocytopenia Anemia COPD (chronic obstructive pulmonary disease) Diabetic retinopathy Chronic kidney disease Lumbar degenerative disc disease High cholesterol Edema Gout Surgical History S/P cardiac catheterization Hx of cardiac pacemaker History of bowel diversion surgery History of gastric surgery H/O prior ablation treatment History of carpal tunnel release History of bilateral cataract extraction History of tonsillectomy Family History Father Prostate cancer CVD (cardiovascular disease) Mother Hemochromatosis Brother Motor vehicle accident Sister CAD (coronary artery disease) Maternal Grandfather Myocardial infarction Social History Household Members: Spouse Housing: House Do you presently have visiting nurse or other home services: Yes Alcohol intake: never Patient Tobacco Use Status: Former Tobacco user Tobacco use type: Cigarette e-Cigarette/Vaping Use: Former Use Second Hand Smoke Exposure: Yes Advance Directives Date on File: 11/06/22 service: No Current occupational status: retired Cognitive needs: Yes Hearing needs: Yes Vision needs: Yes Questionnaire Thrive Questionnaire Date Thrive assessed: 09/14/24 I am a: Patient What is your living situation today?: I have a steady place to live Within the past 12 months, did the food you bought not last and you didn't have the money to get more?: Never true Within the past 12 months, did you worry whether your food would run out before you got money to buy more?: Never true Do you have trouble paying for medicines?: No Do you have trouble getting transportation to medical appointments?: No Do you have trouble paying your heating and electricity bill?: No Do you have trouble taking care of your child, family member or friend?: No Do you have trouble with day-to-day activities such as bathing, preparing meals, shopping, managing finances, etc.?: No Are you currently unemployed and looking for a job?: No Are you interested in more education?: No Currently or been in a relationship where the following occur: No concerns reported THRIVE Score: 0 AUDIT C Alcohol Use Questionnaire (AUDIT-C) 1. How often do you have a drink containing alcohol?: Never 3. How often do you have six or more drinks on one occasion?: Never Total Score: 0 RADHA-7 AMB Questionnaire RADHA-7 Date RADHA - 7 assessed: 09/14/24 Feeling nervous, anxious, or on edge: 0 = Not at all Not being able to stop or control worryin = Not at all Worrying too much about different things: 0 = Not at all Trouble relaxin = Not at all Being so restless that it is hard to sit still: 0 = Not at all Becoming easily annoyed or irritable: 0 = Not at all Feeling afraid as if something awful might happen: 0 = Not at all Total RADHA-7 score (0-4 normal; 5-9 mild; 10-14 moderate; 15-21 severe): 0 Source: Developed by Drs. Milton Ferrer, Shanna Fischer, Marc Hunt and colleagues, with an educational kaur from [employer]. Physical exam (Primary Care) Vital Signs: Last Vital Signs Pulse 64 09/14/24 09:08 BP 118/62 09/14/24 09:08 Pulse Ox 97 09/14/24 09:08 Oxygen Delivery Method Room Air 09/14/24 09:08 BMI result Body Mass Index 32.1 Tobacco/Smoking Status: Tobacco use Status Tobacco use date assessed 09/14/24 09/14/24 09:10 Patient Tobacco Use Status Former Tobacco user 09/14/24 09:10 Tobacco use type Cigarette 09/14/24 09:10 e-Cigarette/Vaping Use Former Use 09/14/24 09:10 Thrive Assessment: Date of Thrive Assessment Date Thrive assessed 09/14/24 09/14/24 09:10 Currently or been in a relationship where the following occur: No concerns reported Const General: alert; No acute distress Eyes Conjunctivae: conjunctivae normal Resp Auscultation: clear to auscultation bilaterally Cardio Rate: regular rate Rhythm: regular rhythm GI Inspection: Yes normal to inspection Extrem General: Yes normal to inspection and No edema Results AMB Hemoglobin A1c AMB Hemoglobin A1c 5.0 % Last Edit by Liv Omer CMA on 09/14/24 09 :23 Coding Level of Care Code Est Pt Level 4 (63033) Complex EM visit Add On G2211 Diagnoses Coronary artery disease I25.10 Cardiomyopathy, unspecified type I42.9 Cardiomyopathy type: unspecified SLE (systemic lupus erythematosus) M32.9 Essential hypertension I10 Hypertension type: essential hypertension Paroxysmal atrial fibrillation I48.0 Atrial fibrillation type: paroxysmal Pacemaker Z95.0 ESRD (end stage renal disease) N18.6 Recurrent major depression F33.9 GERD (gastroesophageal reflux disease) K21.9 Hypercholesterolemia E78.00 Peripheral vascular disease I73.9 Assessment & Plan Assessment & Plan (1) Coronary artery disease: Comment: RCA stented August 2024 Code(s): I25.10 - Atherosclerotic heart disease of [place] coronary artery without angina pectoris Category: Medical Plan: August 2024 started on Plavix (2) Cardiomyopathy: Code(s): I42.9 - Cardiomyopathy, unspecified Category: Medical Qualifiers: Cardiomyopathy type: unspecified Qualified Code(s): I42.9 - Cardiomyopathy, unspecified Plan: Patient is being followed up by Cardiology and referred to cardiac rehab (3) SLE (systemic lupus erythematosus): Code(s): M32.9 - Systemic lupus erythematosus, unspecified Category: Medical Plan: Patient is reminded to follow-up with Rheumatology noted sed rate to be high (4) HTN (hypertension): Code(s): I10 - Essential (primary) hypertension Category: Medical Qualifiers: Hypertension type: essential hypertension Qualified Code(s): I10 - Essential (primary) hypertension Plan: Continue with blood pressure medication. Decrease salt intake and exercise on amlodipine 5 mg once a day metoprolol 25 mg twice a day (5) Afib: Code(s): I48.91 - Unspecified atrial fibrillation Category: Medical Qualifiers: Atrial fibrillation type: paroxysmal Qualified Code(s): I48.0 - Paroxysmal atrial fibrillation Plan: Patient is on apixaban 2.5 mg twice a day (6) Pacemaker: Code(s): Z95.0 - Presence of cardiac pacemaker Category: Medical Plan: Patient is being followed up by Cardiology with device check routine (7) ESRD (end stage renal disease): Comment: On dialysis Tuesdays Code(s): N18.6 - End stage renal disease Category: Medical Plan: Patient on dialysis (8) Recurrent major depression: Comment: decline referral for counselling presently Code(s): F33.9 - Major depressive disorder, recurrent, unspecified Category: Medical Plan: Stable (9) GERD (gastroesophageal reflux disease): Code(s): K21.9 - Gastro-esophageal reflux disease without esophagitis Category: Medical Plan: Avoid the foods that causes that usually spicy foods, tomato products, juices, coffee, soda and foods that your sensitive to. After eating do not lie down, allow 3-4 hours before in lie down. And keep the head of bed above 30 degrees to avoid the acid from going up. (10) Hypercholesterolemia: Code(s): E78.00 - Pure hypercholesterolemia, unspecified Category: Medical Plan: Avoid fried foods, chicken skin, eggs, butter margarine, pastries and meat. Be it pork or beef they have a lot of cholesterol January 2024 last tested LDL goal of less than 70 and triglyceride of less than 150 (11) Peripheral vascular disease: Code(s): I73.9 - Peripheral vascular disease, unspecified Category: Medical Plan: When sitting down elevate the legs, exercise, and support stockings try to keep active Plan History of Present Illness The patient is a 69-year-old male presenting for a follow-up visit for management of multiple chronic conditions, including hypercholesterolemia, peripheral vascular disease, gout, GERD, ESRD, atrial fibrillation, hypertension, SLE, obstructive sleep apnea, and cardiomyopathy. His cardiac history is significant for a successful drug-eluting stent placement in August 2024, addressing a severe stenosis of the right coronary artery and chronic total occlusion at the mid to distal RCA. The patient's condition is compounded by obesity and a weight gain of 9 pounds. His obstructive sleep apnea remains untreated due to a previous decision to decline CPAP therapy. ESRD management continues through dialysis via a right upper arm fistula, with recent concerns over drainage at the site noted in the follow-up. Laboratory findings indicate chronic thrombocytopenia, leukopenia, and anemia, with creatinine levels reflecting compromised renal function. Health Maintenance - Vaccinations updated, including flu, pneumonia, tetanus, shingles - Cholesterol management with pravastatin; recent test with LDL at 64 - Kidney function monitoring with regular dialysis and blood work - Regular appointments for cardiac monitoring and wound care - Encouragement for activity as per peripheral vascular disease management Social History - Patient does not engage in regular exercise - Reports no current issues with shortness of breath - Haphazard medication adherence observed, with gabapentin use commented as sporadic - Podiatry care as needed, financial and insurance barriers previously noted Review of Systems - Cardiovascular: Reports compliance with blood pressure management medications - Respiratory: Denies current shortness of breath - Musculoskeletal: Reports intermittent use of gabapentin; denies need - Dermatological: Notes left ankle ulcer not significantly improved - Renal: Aware of drainage from dialysis fistula site Physical Exam - Cardiovascular- Blood pressure adequately controlled, specific measures not documented but implied stability - Dermatologic- Pulse detectable at the feet, despite notable ulcer on the left ankle - General- Observed compliance and awareness of medication regimen Results - Labs: Anemia (Hb 10.7), leukopenia (WBC 3.9), thrombocytopenia (Platelets 115), elevated sed rate at 41, creatinine of 3.09, GFR 20, cholesterol (LDL 64, recent) - Imaging & Tests: Previous cardiac catheterization showing severe RCA stenosis Plan Continuation of current management protocols for hypercholesterolemia with pravastatin is indicated, supported by recent LDL results. Blood pressure control is maintained through amlodipine and metoprolol, integral as the patient continues follow-up with cardiology. Anticoagulation therapy with Eliquis and Plavix should be adhered to in managing post-stent care. The ulcer on the left ankle warrants re-evaluation in wound care, and dialogue with podiatry may assist in addressing foot care concerns. For ESRD, consistent dialysis and vigilance regarding fistula drainage are paramount. As inflammation persists, further engagement with rheumatology for SLE management is crucial, possibly adjusting hydroxychloroquine therapy. A follow-up visit is advisable in four months with pre-scheduled lab work for thorough assessment. Patient was informed and verbally consented to the use of an ambient scribe for clinic note documentation during this visit. Discussion Notes I discussed with the patient the significance of continued adherence to the antihypertensive and cholesterol-lowering medications. The success of stenting and importance of compliance with anticoagulation therapy were highlighted. The necessity of wound care for the left ankle ulcer was reemphasized, and the potential benefits of podiatric follow-up were considered. The potential for i ncreased inflammation due to SLE was addressed, and collaboration with rheumatology for effective management was agreed upon. The ESRD-related dialysis protocol was reviewed, emphasizing the importance of monitoring the fistula site for drainage. Anticipatory guidance includes a four-month follow-up covering lab results and cardiovascular assessments, with an open dialog maintained via the patient portal for potential inquiries or complications. Patient Instructions - Continue pravastatin and follow prescribed regimen for blood pressure and heart rate - Attend scheduled cardiac rehab sessions and follow up in cardiology clinic - Ensure consistent dialysis attendance and monitor fistula for drainage - Keep the wound care appointment for left ankle ulcer assessment - Reengage engineering technical specialist to manage SLE effectively - Maintain an active lifestyle in consultation with healthcare professionals - Use the patient portal for any medication queries or health-related concerns Orders: Orders Thyroid Stimulating Hormone 4 Months E78.00 - Pure hypercholesterolemia, unspecified Lipid Panel 4 Months E78.00 - Pure hypercholesterolemia, unspecified Reticulocyte Count 4 Months E78.00 - Pure hypercholesterolemia, unspecified AMB Hemoglobin A1c Today Z13.9 - Encounter for screening, unspecified Complete Blood Count Auto Diff 4 Months E78.00 - Pure hypercholesterolemia, unspecified Comprehensive Met. Panel 4 Months E78.00 - Pure hypercholesterolemia, unspecified Free T4 (Free Thyroxine) 4 Months E78.00 - Pure hypercholesterolemia, unspecified Ferritin 4 Months E78.00 - Pure hypercholesterolemia, unspecified Vitamin B12 and Folate 4 Months E78.00 - Pure hypercholesterolemia, unspecified IRON PROFILE 4 Months E78.00 - Pure hypercholesterolemia, unspecified UA w Microscopic 4 Months E78.00 - Pure hypercholesterolemia, unspecified Magnesium 4 Months E78.00 - Pure hypercholesterolemia, unspecified B Type Natriuretic Peptide 4 Months E78.00 - Pure hypercholesterolemia, unspecified Erythrocyte Sedimentation Rate 4 Months E78.00 - Pure hypercholesterolemia, unspecified C Reactive Protein 4 Months E78.00 - Pure hypercholesterolemia, unspecified Referrals Podiatry Referral B35.1 - Tinea unguium Medications: Discontinued gabapentin Discontinued Reason: Doctor's Order 300 mg PO BEDTIME 30 caps 1RF L97.329 - Non-pressure chronic ulcer of left ankle with unspecified severity
--- OUTSIDE RECORDS SUMMARY | 2024-09-14 09:50 | XMS_ITS ---
Author Organization [facility] Address [address] [place] [id number] Care Team Providers Care Blender Machine Operator Name Role Phone Po Steve ANDERSEN Primary Care Provider Milton Poon [phone] Allergies No Known Allergies REASON FOR VISIT [...] 90 Active Vitamin D (Ergocalciferol) 1.25 MG (24701 UT) TAKE 1 CAPSULE BY MOUTH ONE [...] to age 48. He is originally from [place]. Vital Signs Temperature 98.4 degrees Fahrenheit 03/18/20 23 Blood pressure systolic 000 mm Hg 03/18/20 23 Blood pressure diastolic 00 mm Hg 023 Height 5 ft 11 in in 03/18/2023 Weight 207 lbs 03/18/2023 BMI 28.87 kg/m2 03/18/2023 Encounters Encounter Location Date Provider Diagnosis [facility] [address] [place] [address] 03/18/2023 Milton Freed Alcoholic cirrhosis of liver [...] * SHELL WALKER JDOB:[birth year] (68 yo M)Acc No.[id number]:03/18/2023 Progress Notes Patient:?WALKERSHELL PEDERSON Provider:?Milton Freed MD :[id number]???Age:68 Y???Sex:Male Corbin e:03/18/2023 Address:[address] [place], [place] [id number] Pcp:Steve Nguyen MD Subjective: * Chief Complaints: [...] interventions. He describes an emergency laparotomy at [facility] with a resection of some small [...] HD fistula left arm 04/2022 Laparotomy at [facility] in Spring 2022 for what sounds [...] to age 48. He is originally from [place]. * Medications:?TakingSimethico ne Vitamin D2 10 MCG [...] BREAKFAST Oral Vitamin D (Ergocalciferol) 1.25 MG (34963 UT) Capsule TAKE 1 CAPSULE BY MOUTH [...] Oral Taking Vitamin D (Ergocalciferol) 1.25 MG (16571 UT) Capsule TAKE 1 CAPSULE BY MOUTH [...] Procedure Codes:?3017F COLOR ECTAL CA SCREEN DOC [id number] TOBACCO [id number] BP SCR NOT PRFRM REC REASON NOS * Preventive Medicine:? ??Counseling:?Care goal follow-up plan:?Above Normal BMI Follow-up?Giving encouragement to exercise,?BMI management provided?Yes.? * Follow Up:?1 Year * * Sign off status: Completed true * Provider:?Milton Freed MD Date:? 023 Generated for Malu knight/Ally/Stacyitting on:?09/14/2024 09:50 AM EDT History and Physical Notes * HPI [...] interventions. He describes an emergency laparotomy at [facility] with a resection of some small [...]
--- OUTSIDE RECORDS SUMMARY | 2024-09-14 09:51 | XMS_ITS | Encounter Summary ---
Author Organization [facility] Address [address] [place] [address] Phone Care Team Providers Care Equipment Driver Name Role Phone Steve Nguyen MD Primary Care Provider [phone] Encounter Details Date Type Department Care Team (Late st Contact Info) Description 07/31/2022 Documentation Only [facility] [address] [place] [address] Sahara Rousseau PA Social History [...] Care Team (Late st Contact Info) Description 09/29/2024 2:00 PM EDT Procedure visit [facility] [address] [place] [id number] documented as of this encounter Visit Diagnoses Not on filedocumented in this encounter Care Teams Equipment Driver Relationship Specialty Start Date End Date Steve Nguyen MD [facility] [id number] HEIDI ZIMMERMAN PCP - General 04/19/19 documented as of this encounter
--- OUTSIDE RECORDS SUMMARY | 2024-09-14 09:51 | XMS_ITS | Continuity of Care Document ---
Author Organization [facility] Address [address] [place] [address] Phone Care Team Providers Care Outreach Nurse Name Role Phone Lucio ANDERSEN, Norm Unavailable Unavailab le Allergies, Adverse Reactions, Alerts Substance Reaction Status Criticality No Known allergies Medications Medication Instructions Dosage Effective Dates (start - stop) Status Comments Proventil HFA 90 mcg/actuation Aerosol Inhaler inhale 2 puff by inhalation route four times a day as needed - Active citalopram 40 mg Tab take 1 tablet (40MG) by oral route every day 40 MG - Active pravastatin 40 mg Tab take 1 tablet (40MG) by oral route every day 40 MG - Active meloxicam 7.5 mg Tab take [...] route every day 1.00 tablet - Active METFORMIN HCL (unknown strength) take [...] Diagnoses Date Provider Providers Copied on Encounter [facility], [address] [place] [address], [address] [place] [address], tel:[phone] [facility] No Information 3 Lucio Zheng. [address] [facility], [id number] [place], [place], [address] [place] [address], . [phone] [facility], [address] [place] [address], [address] [place] [address], tel:[phone] [facility] No Information 2 Lucio Zheng. [address] [facility], [id number] [place], [place], [address] [place] [address], . tel:[phone] Ofc/Outpt Visit, Est, Level 3 [facility], [address] [place] [address], [address] [place] [address], tel:[phone] [facility] spinal stenosis (chief complaint) neuropathy (chief complaint) Spinal stenosisPerip heral neuropathy 2 Lucio Zehng. [address] [facility], [id number] [place], [place], [address] [place] [address], . tel:[phone] Referring Provider: Norm Michel i, [address] [place] [address] [id number] [place], [address] . tel:[phone] [facility], [address] [place] [address], [id number], [place] tel:[phone] Int Med [facility] No Information 2 Lucio Zheng. [address], [id number] [place], [id number], [place]. tel:[phone] [facility], [address] [place] [address], [id number], [place] tel:[phone] Neurology No Information 2 Betofloridalma Shaheed. [address], [place], [address]. tel:[phone] Referring Provider: Shaheed Lopez, [address], [place], [address]. tel:[phone] OFFICE/OUTPA TIENT VISIT, [facility], [address] [place] [address], [id number], [place] tel:[phone] Int Med [facility] No Information 2 Lucio Zheng. [address], [id number] [place], [id number], [place]. tel:[phone] Referring Provider: Norm Michel i, [address] [place] [address] [id number] [place], [address] . tel:[phone] [facility], [address] [place] [address], [id number], [place] tel:[phone] [facility] No Information 2 Matias Manjarrez. [address] [place], [id number], [place]. tel:[phone] Referring Provider: Loki Salcedo, [address] [place], [place], [address] . tel:[phone] [facility], [address] [place] [address], [id number], [place] tel:[phone] Neurosc[facility] No Information 2 Matias Manjarrez. [address], [place], [place], [id number], [place]. tel:[phone] Referring Provider: Loki Salcedo, [address] , [place], [address] . tel:[phone] OFFICE/OUTPA TIENT VISIT, [facility], [address] [place] [address], [id number], [place] tel:[phone] [facility] No Information 2 Lucio Zheng. [address], [id number] [place], [id number], [place]. tel:[phone] Referring Provider: Norm Michel i, [address] [id number], [place], [address] . tel:[phone] [facility], [address] [place] [address], [id number], [place] tel:[phone] [facility] No Information 2 Matias Loki. [address] , [place], [place], [id number], [place]. tel:[phone] Referring Provider: Loki Salcedo, [address], [place], [address] . tel:[phone] OFFICE/OUTPA TIENT VISIT, [facility], [address] [place] [address], [id number], [place] tel:[phone] [facility] No Information 1 Lucio Zheng. [address], [id number] [place], [id number], [place]. tel:[phone] Referring Provider: Norm Michel i, [address] [id number], [place], [address] . tel:[phone] PREV VISIT, EST, AGE 40-64 [facility], [address] [place] [address], [id number], [place] tel:[phone] [facility] No Information Lucio Zheng. [address] [place] [address], [id number] , [place], [place], [id number], . tel:[phone] Referring Provider: Norm Michel i, [address] [place] [address] [id number], [place], [address] . tel:[phone] Family History Family Member Type Diagnosis Age At Onset Father Problem (finding) prostate cancer Payers Payer name Insurance type Covered alliance party ID Arley perry(s) [facility] BL [id number] Social History Type Description Quantity Date Captured [...]
--- OUTSIDE RECORDS SUMMARY | 2024-09-14 09:51 | XMS_ITS | Encounter Summary ---
Author Organization [facility] Address [address] [place] [address] Phone Care Team Providers Care Freezer Worker Name Role Phone Steve Nguyen MD Primary Care Provider [phone] Encounter Details Date Type Department Care Team (Late st Contact Info) Description 05/21/2022 Documentation Only [facility] [address] [place] [address] Rory Leahy MD [address] [place] [address] Social History Tobacco Use Types [...] visit [facility] [place] [address] [place] [address] documented as of this encounter Visit Diagnoses Not on filedocumented in this encounter Care Teams Freezer Worker Relationship Specialty Start Date End Date Steve Nguyen MD [facility] [address] [place] PCP - General 04/19/19 documented as of this encounter
--- OUTSIDE RECORDS SUMMARY | 2024-09-14 09:51 | XMS_ITS | Encounter Summary ---
Author Organization [facility] Address [address] [place] [address] Phone Care Team Providers Care Console Manager Name Role Phone Steve Nguyen MD Primary Care Provider [phone] Encounter Details Date Type Department Care Team (Late st Contact Info) Description 06/20/2022 Documentation Only [facility] [address] [place] [address] Hermelinda Colunga [address] [place] [address] Social History Tobacco Use Types Packs/Day [...] visit [facility] [address] [place] [address] documented as of this encounter Visit Diagnoses Not on filedocumented in this encounter Care Teams Console Manager Relationship Specialty Start Date End Date Steve Nguyen MD [address] [place] PCP - General 04/19/19 documented as of this encounter
--- OUTSIDE RECORDS SUMMARY | 2024-09-14 09:51 | XMS_ITS | Encounter Summary ---
Author Organization [facility] Address [address] [place] [address] Phone Care Team Providers Care Chief Of Service Name Role Phone Steve Nguyen MD Primary Care Provider [phone] Reason for Visit * Reason Comments Med Refill Encounter Details Date Type Department Care Team (Late st Contact Info) Description 05/10/2022 Refill [facility] [address] [place] [phone] Bakari Wells MD [address] [place] [address] Social History Tobacco Use Types [...] Procedure visit [facility] [address] [place] [address] documented as of this encounter Visit Diagnoses Not on filedocumented in this encounter Care Teams Chief Of Service Relationship Specialty Start Date End Date Steve Nguyen MD [facility] [address] [place], [place] PCP - General 04/19/19 documented as of this encounter
--- OUTSIDE RECORDS SUMMARY | 2024-09-14 09:51 | XMS_ITS | Encounter Summary ---
Author Organization [facility] Address [address] [address] Phone Care Team Providers Care Oil Drilling Engineer Name Role Phone Steve Nguyen MD Primary Care Provider [phone] Encounter Details Date Type Department Care Team (Late st Contact Info) Description 09/13/2024 Treatment [facility] [address] [address] Bianca Reyes MD [address] [address] End stage renal disease; Dependence [...] Dialysis Note - Bianca Reyes MD - 09/13/2024 12:00 AM EDT Patient: Dimitrios Meyer : 1955 Note Type: Dialysis Rounds-Comp Service Date: 09/13/2024 This patient was personally seen for a complete visit as part of routine monthly dialysis care for end stage renal disease. Attending Vba Developer: BIANCA REYES MD Dialysis Location: [facility] Schedule: Shift: 1 OVERVIEW Patient is stable. COMMENTS: Note in dialysis analytical research program manager HOME MEDICATIONS Current [facility] Outpatient [...] week Start Date: 05/27/2024 VITAMIN D (ERGOCALCIFEROL) 28261 UNITS PO CAPS Take 1 capsule by mouth Start Date: 05/20/2022 Current [facility] Allergies Allergen: FERUMOXYTOL Reaction: Other (see comments) Severity: High BP AND FLUID ASSESSMENT Acceptable blood pressure. Fluid status acceptable. ADEQUACY ASSESSMENT Kt/V, Natural Log 1.21 (08/27/24) 1.17 (08/20/24) 0.74 (08/18/24) UREA REDUCTION RATIO (%) 65 (08/27/24) 63 (08/20/24) 47 (08/18/24) BUN 37 (08/27/24) 52 (08/20/24) 64 (08/18/24) BUN Post Dialysis 13 (08/27/24) 19 (08/20/24) 34 (08/18/24) Creatinine 6.29 (08/18/24) 9.82 (07/21/24) 5.71 (06/23/24) Bicarbonate (CO2) 26 (08/18/24) 24 (07/21/24) 24 (06/23/24) Sodium 135 (08/18/24) 134 (07/21/24) 138 (06/23/24) Target met. Prescription compliance acceptable. ACCESS ASSESSMENT Vascular access examined. ANEMIA ASSESSMENT Hgb 10.4 (09/03/24) 10.7 (08/18/24) 11.0 (08/04/24) Iron Saturation (TSat) 32 (08/18/24) 30 (07/21/24) 25 (06/23/24) Ferritin 1,541 (08/18/24) 753 (07/21/24) 1,401 (06/23/24) Iron 74 (08/18/24) 58 (07/21/24) 64 (06/23/24) TIBC 231 (08/18/24) 192 (07/21/24) 253 (06/23/24) MCV 102.3 (08/18/24) 108.2 (07/21/24) 108.1 (06/23/24) Platelets 135 (08/18/24) 120 (07/21/24) 122 (06/23/24) Anemia targets met. Hemoglobin at target. BMM ASSESSMENT Calcium, Adjusted Total 9.0 08/30/24 9.4 08/18/24 9.1 07/21/24 Calcium 9.0 08/30/24 9.4 08/18/24 9.0 07/21/24 Phosphorus, Serum 7.3 08/30/24 8.5 08/18/24 3.8 07/21/24 Ca*PO4 65.7 08/30/24 79.9 08/18/24 34.2 07/21/24 PTH, Intact 362 06/23/24 Magnesium 2.2 08/18/24 2.4 07/21/24 2.0 06/23/24 Alkaline Phosphatase 162 08/18/24 139 07/21/24 176 06/23/24 Aluminum 7 06/23/24 5 05/28/24 PTH within target. Phosphorus controlled. Calcium controlled. Bone and mineral metabolism parameters reviewed. NUTRITION ASSESSMENT Albumin 4.1 08/30/24 4.3 08/18/24 3.9 07/21/24 Potassium 4.3 09/08/24 4.0 09/03/24 4.3 08/25/24 Hemoglobin A1C 4.4 06/23/24 Albumin at goal. PHYSICAL EXAM Exam performed. Vital Signs Reviewed. Lungs - Clear. CV - Blood pressure noted. No edema. EXT - No ulcers. ADDITIONAL LABS White Blood Cells 4.9 (08/18/24) 3.5 (07/21/24) 5.7 (06/23/24) Cholesterol 145 (06/23/24) HDL 48 (06/23/24) LDL-Calc 84 (06/23/24) Triglycerides 64 (06/23/24) Hep B Surface Antibody <4 (06/23/24) <4 (05/28/24) Uric Acid 6.5 (06/23/24) ADDITIONAL COMMENT COMMENTS: Note in dialysis analytical research program manager Signed by: BIANCA REYES MD on 09/13/2024 at 08:25:16 AM documented in this encounter Plan of Treatment Upcoming Encounters Date Type Department Care Team (Late st Contact Info) Description 09/29/2024 2:00 PM EDT Procedure visit [facility] V[facility] Access Center [address] [place] [address] documented as of this encounter Visit Diagnoses Diagnosis End stage renal disease Dependence on renal dialysis documented in this encounter Care Teams Oil Drilling Engineer Relationship Specialty Start Date End Date Steve Nguyen MD [facility] [place] [address] [place] PCP - General 04/19/19 documented as of this encounter
--- OUTSIDE RECORDS SUMMARY | 2024-09-14 09:51 | XMS_ITS | Encounter Summary ---
Author Organization [facility] Address [address] [place] [address] Phone Care Team Providers Care Automation And Controls Manager Name Role Phone Steve Nguyen MD Primary Care Provider [phone] Encounter Details Date Type Department Care Team (Late st Contact Info) Description 05/21/2022 Documentation Only [facility] [address] [place] [address] Hermelinda Colunga [address] [place] [address] Social History Tobacco Use Types Packs/Day [...] visit [facility] Access Center [address] [place] [address] documented as of this encounter Visit Diagnoses Not on filedocumented in this encounter Care Teams Automation And Controls Manager Relationship Specialty Start Date End Date Steve Nguyen MD [address] [place] PCP - General 04/19/19 documented as of this encounter
--- OUTSIDE RECORDS SUMMARY | 2024-09-14 09:51 | XMS_ITS | Encounter Summary ---
Author Organization [facility] Address [address] [place] [address] Phone Care Team Providers Care Vice President Mission Integration Name Role Phone Steve Nguyen MD Primary Care Provider [phone] Encounter Details Date Type Department Care Team (Late st Contact Info) Description 05/23/2021 Documentation Only [facility] [address] [place] [address] Bakari Wells MD [address] [place] [address] [place] [phone] Social History Tobacco Use Types Packs/Day Years [...] visit [facility] Vascular Access Center [address] [place] [address] documented as of this encounter Visit Diagnoses Not on filedocumented in this encounter Care Teams Vice President Mission Integration Relationship Specialty Start Date End Date Steve Nguyen MD [address] [place] PCP - General 04/19/19 documented as of this encounter
--- OUTSIDE RECORDS SUMMARY | 2024-09-14 09:51 | XMS_ITS | Encounter Summary ---
Author Organization [facility] Address [address] [place] [address] Phone Care Team Providers Care Medicine Man Name Role Phone Steve Nguyen MD Primary Care Provider [phone] Reason for Visit * Reason Comments Med Refill Encounter Details Date Type Department Care Team (Late Contact Info) Description 04/05/2023 Refill [facility] [address] [place] [address] Bakari Wells MD [address] [place] [address] [place] [phone] Social History Tobacco Use Types Packs/Day Years [...] Department Care Team (Late Contact Info) Description 09/29/2024 2:00 PM EDT Procedure visit [facility] [place], - [facility] Access Center [address] [place] [address] [place] [address] documented as of this encounter Visit Diagnoses Not on filedocumented in this encounter Care Teams Medicine Man Relationship Specialty Start Date End Date Steve Nguyen MD [facility] [place] [address] [place] PCP - General 04/19/19 documented as of this encounter
--- OUTSIDE RECORDS SUMMARY | 2024-09-14 09:51 | XMS_ITS | Encounter Summary ---
Author Organization [facility] Address [address] [place] [address] Phone Care Team Providers Care Bakery Helper Name Role Phone Steve Nguyen MD Primary Care Provider [phone] Encounter Details Date Type Department Care Team (Late st Contact Info) Description 05/22/2022 Documentation Only [facility] Of [address] [place] [address] Hermelinda Colunga [address] [place] [address] Social History Tobacco Use Types Packs/Day [...] [facility]plant [facility] Vascular Access Center [address] [place] [address] documented as of this encounter Visit Diagnoses Not on filedocumented in this encounter Care Teams Bakery Helper Relationship Specialty Start Date End Date Steve Nguyen MD [address] [place] PCP - General 04/19/19 documented as of this encounter
--- OUTSIDE RECORDS SUMMARY | 2024-09-14 09:51 | XMS_ITS | Encounter Summary ---
Author Organization [facility] Address [address] [place] [address] Phone Care Team Providers Care Hardware Assembler Name Role Phone Steve Nguyen MD Primary Care Provider [phone] Encounter Details Date Type Department Care Team (Late st Contact Info) Description 03/21/2022 Documentation Only [facility] [address] [place] [address] Sahara Rousseau PA Social History [...] visit [facility] Vascular Access Center [address] [place] [address] documented as of this encounter Visit Diagnoses Not on filedocumented in this encounter Care Teams Hardware Assembler Relationship Specialty Start Date End Date Steve Nguyen MD [facility] [place] [address] [place] PCP - General 04/19/19 documented as of this encounter
--- OUTSIDE RECORDS SUMMARY | 2024-09-14 09:51 | XMS_ITS | Encounter Summary ---
Author Organization [facility] Address [address] [place] [address] Phone Care Team Providers Care Appian Developer Name Role Phone Steve Nguyen MD Primary Care Provider [phone] Encounter Details Date Type Department Care Team (Late st Contact Info) Description 04/22/2022 Documentation Only [facility] [address] [place] [address] Sahara Rousseau PA Social History [...] visit [facility] Vascular Access Center [address] [place] [place] [address] documented as of this encounter Visit Diagnoses Not on filedocumented in this encounter Care Teams Appian Developer Relationship Specialty Start Date End Date Steve Nguyen MD [facility] [place] [address] [place] PCP - General 04/19/19 documented as of this encounter
--- OUTSIDE RECORDS SUMMARY | 2024-09-14 09:51 | XMS_ITS | Encounter Summary ---
Author Organization [facility] Address [address] [place] [address] Phone Care Team Providers Care Manager Workers Compensation Name Role Phone Steve Nguyen MD Primary Care Provider [phone] Encounter Details Date Type Department Care Team (Late st Contact Info) Description 09/01/2022 Documentation Only [facility] [address] [place] [address] Sahara Rousseau PA Social History [...] visit [facility] Vascular Access Center [address] [place] [address] documented as of this encounter Visit Diagnoses Not on filedocumented in this encounter Care Teams Manager Workers Compensation Relationship Specialty Start Date End Date Steve Nguyen MD [place] [facility] [address] [facility] PCP - General 04/19/19 documented as of this encounter
--- OUTSIDE RECORDS SUMMARY | 2024-09-14 09:51 | XMS_ITS ---
Author Organization [facility] Address [address] [place] [address] Care Team Providers Care Irs Agent Name Role Phone Po Steve ANDERSEN Primary Care Provider Milton Poon [phone] REASON FOR VISIT ov recall Encounters Encounter Location Date Provider Diagnosis [facility] [address] [facility] [address] [place] [phone] 03/18/2023 Milton Freed Plan Of Treatment No Information Progress Notes * SHELL WALKERDOB:[birth year] (68 yo M)Acc No.[id number]:03/18/2023 Patient:?SHELL WALKER :1955???Age:68 Y???Sex:Male Address:[address] [place] [address], [address] * true * Date:? Generated for Malu knight/Ally/eTransmitting on:?09/14/2024 09:50 AM EDT
--- OUTSIDE RECORDS SUMMARY | 2024-09-14 09:51 | XMS_ITS | Clinical Summary ---
Author Organization [facility] Address [address] [place] [address] Care Team Providers Care Locomotive Supervisor Name Role Phone Steve Nguyen MD Primary Care Provider [phone] Allergies Active Allergy Reactions Criticality Noted Date [...] daily. 0 04/02/2022 Active epoetin gaby (PROCRIT) 76510 UNIT/ML injection Inject 1 mL (20,000 Units [...] age to complete this topic Care Teams Locomotive Supervisor Relationship Specialty Start Date End Date Po, Steve Dawn MD [address] [place] [address] [address] [facility] [place] [address] PCP - General Internal Medicine 06/18/22
--- OUTSIDE RECORDS SUMMARY | 2024-09-14 09:51 | XMS_ITS | Clinical Summary ---
Author Organization [facility], Address [address] [place] [address] Phone Care Team Providers Care Experimental Machining Lab Manager Name Role Phone Steve Nguyen MD Primary Care Provider [phone] Allergies Active Allergy Reactions Criticality Noted Date Comments Ferumoxytol Other (see comments) High 04/02/2021 Chest pain, chills Other reaction(s): Other (see comments) Chest pain, chills Medications isosorbide mononitrate (IMDUR) 30 MG 24 hr tablet Take 30 mg by mouth 1 (one) time each day 2 Active Vitamin D, Ergocalciferol, 04484 units capsule Take 1 capsule by mouth [...] tablet 2 4 Active epoetin gaby (EPOGEN,PROCRIT) 67691 UNIT/ML injection Inject 10,000 Units under the [...] Encounters Date Type Department Care Team Description 09/13/2024 Treatment [facility] [address] [address] Ezequiel Reyes MD End stage renal disease; Dependence on renal dialysis 09/06/2024 Treatment [facility] [address] [address] Ezequiel Reyes MD End stage renal disease; Dependence on renal dialysis 09/01/2024 Treatment [facility] [address] [address] Ezequiel Reyes MD End stage renal disease; Dependence on renal dialysis 08/23/2024 Treatment [facility] [address] [address] Ezequiel Reyes MD End stage renal disease; Dependence on renal dialysis 08/16/2024 Treatment [facility] [address] [address] Ezequiel Reyes MD End stage renal disease; Dependence on renal dialysis 08/11/2024 Treatment [facility] [address] [address] Ezequiel Reyes MD 08/09/2024 Treatment [facility] [address] [address] Ezequiel Reyes MD 08/01/2024 [facility] [address] [place] [address] Sylvie Daniel post op call 07/30/2024 Treatment [facility] [address] [address] Ezequiel Reyes MD 07/29/2024 11:00 AM EST Procedure visit [facility] [address] [place] [address] Milton Stone MD End stage renal disease (HCC) (Primary Dx); Stenosis of other vascular prosthetic devices, implants and grafts, initial encounter (HCC) 07/28/2024 Telephone [facility] [address] [place] [address] Pamela Cespedes 07/28/2024 Telephone [facility] [address] [place] [address] Pamela Cespedes 07/19/2024 Treatment [facility] [address] [phone] Ezequiel Reyes MD 07/07/2024 Treatment [facility] [address] [address] Ezequiel Reyes MD 06/30/2024 Treatment [facility] [address] [address] Ezequiel Reyes MD 06/23/2024 Treatment [facility] [address] [phone] Arvind Avila MD 06/16/2024 Treatment [facility] [address] [address] Ezequiel Reyes MD from Last 3 Months [...] visit [facility] [address] [place] [address] Health Maintenance Due Date Last Done Comments [...] Exam 08/23/2019 Diabetes: Visual Foot Exam 08/23/2019 Diabetes: Hemoglobin A1C 09/21/2024 025, 08/05/2022, 08/13/2021, Additional history exists Influenza Vaccine (Season Ended) 2025 03/28/2021, 03/26/2021, 04/28/2019, Additional history exists Procedures Procedure Name Priority Date/Time Associated Diagnosis Comments POTASSIUM Routine 09/08/2024 3:00 AM EDT LIH () Routine 09/08/2024 3:00 AM EDT LIH () Routine 09/03/2024 3:00 AM EDT POTASSIUM Routine 09/03/2024 3:00 AM EDT HEMOGLOBIN Routine 09/03/2024 3:00 AM EDT COLLECTION DATE (HC) Routine 09/03/2024 3:00 AM EDT LIH () Routine 08/30/2024 3:00 AM EDT CALCIUM PHOSPHORUS PRODUCT, ADJUSTED (HC) Routine 08/30/2024 3:00 AM EDT LIH () Routine 08/27/2024 3:00 AM EDT COLLECTION DATE () Routine 08/27/2024 3:00 AM EDT KT/V NATURAL LOG, URR () Routine 08/27/2024 3:00 AM EDT LIH () Routine 08/25/2024 3:00 AM EDT POTASSIUM Routine 08/25/2024 3:00 AM EDT LIH () Routine 08/20/2024 3:00 AM EST COLLECTION DATE () Routine 08/20/2024 3:00 AM EST KT/V NATURAL LOG, URR () Routine 08/20/2024 3:00 AM EST TRANSFERRIN SATURATION Routine 3:00 AM EST PROTEIN, TOTAL, SERUM Routine 08/18/2024 3:00 AM EST MAGNESIUM Routine 08/18/2024 3:00 AM EST ELECTROLYTE PANEL Routine 08/18/2024 3:0 0 AM EST LIH () Routine 08/18/2024 3:00 AM EST LACTATE DEHYDROGENASE [...] AND DIFFERENTIAL Routine 06/23/2024 3:00 AM EST from Last 3 Months Results * LIH (09/08/2024 3:00 AM EDT) Only the most recent of14 resultswithin the time period is included. Lipemia Normal Normal [facility] Icterus Normal Normal [facility] Hemolysis Normal Normal [facility] 09/08/2024 3:00 AM EDT 09/09/2024 1:26 PM EDT us Ezequiel Reyes MD LAB HISTORICA [id number] RESULTS Final Result [facility] [address] [place] [address] * Potassium (09/08/2024 3:00 AM EDT) Only the most recent of8 resultswithin the time period is included. Potassium 4.3 3.4 - 5.0 mEq/L [facility] 09/08/2024 3:00 AM EDT 09/09/2024 1:26 PM EDT us Ezequiel Reyes MD LAB BLOOD ORDERABLES Final Result Performing Organization Address [facility] Co de Phone Number [facility] [address] [place] [address] * Collection Date (09/03/2024 3:00 AM EDT) Only the most recent of4 resultswithin the time period is included. Collection Date See Comment [facility] Comment: Patient sample received may exceed specimen stability, based on the collection date electronically provided. ??When reviewing patient results, verify collection information and consider specimen stability before acting on any critical or panic results. 09/03/2024 3:00 AM EDT us Ezequiel Reyes MD LAB HISTORICA [id number] RESULTS Final Result Performing Organization Address [facility] de Phone Number [facility] [address] [place] [address] * (ABNORMAL) Hemoglobin (09/03/2024 3:00 AM EDT) Only the most recent of2 resultswithin the time period is included. Hgb 10.4(L) 13.7 - 17.5 g/dL [facility] Hemoglobin x 3 31.2(L) 41.1 - 52.5 g/dL [facility] 09/03/2024 3:00 AM EDT 09/06/2024 12:59 PM EDT us Ezequiel Reyes MD LAB BLOOD ORDERABLES Final Result Performing Organization Address [facility] de Phone Number [facility] [address] [place] [address] * (ABNORMAL) Calcium Phosphorus Product, Adjusted (08/30/2024 3:00 AM EDT) Only the most recent of4 resultswithin the time period is included. Pathologist [facility] Albumin 4.1 3.6 - 5.4 g/dL [facility] Calcium 9.0 8.6 - 10.3 mg/dL [facility] Phosphorus, Serum 7.3(H) 2.5 - 5.0 mg/dL [facility] Ca*PO4 65.7(A) <55.0 mg2/dL2 [facility] Calcium, Adjusted Total 9.0 8.6 - 10.3 mg/dL [facility] CA*PO4 CORRCTD 65.7(A) <55.0 mg2/dL2 [facility] 08/30/2024 3:00 AM EDT 08/31/2024 12:20 PM EDT us Ezequiel Reyes MD LAB HISTORICA [id number] RESULTS Final Result Performing Organization Address City/[facility] Co de Phone Number [facility] [address] [place] [address] * (ABNORMAL) Kt/V Natural Log, URR (08/27/2024 3:00 AM EDT) Only the most recent of5 resultswithin the time period is included. Pathologist [facility] Treatment Time 234 min [facility] Pre-Weight, lb 105.8 kg [facility] Post-Weight, lb 103.1 kg [facility] Ultrafiltration Rate 7 <=13 mL/kg/hr [facility] Comment: Recommend achieving Ultrafiltration Rate (UFR) <=10 mL/kg/hr References: Maria M TAFOYA et al. Kidney Int. 2010; 79(2):250-257 BUN 37(H) 7 - 25 mg/dL [facility] BUN Post Dialysis 13 7 - 25 mg/dL [facility] UREA REDUCTION RATIO (%) 65 >=65 % [facility] Kt/V Natural Log 1.21 >=1.2 [facility] 08/27/2024 3:00 AM EDT 08/30/2024 12:10 PM EDT us Ezequiel Reyes MD LAB HISTORICA [id number] RESULTS Final Result Performing Organization Address [facility] Co de Phone Number [facility] [address] [place] [address] * Hepatitis B Surface Ag w/Reflex Confirmation (08/18/2024 3:00 AM EST) Only the most recent of3 resultswithin the time period is included. [facility] Hep B Surface Antigen Negative Negative [facility] 08/18/2024 3:00 AM EST 08/19/2024 2:01 PM EST Ezequiel Reyes MD LAB BLOOD ORDERABLES Final Result Performing Organization Address [facility] Co de Phone Number [facility] [address] [place] [address] * (ABNORMAL) TSAT (08/18/2024 3:00 AM EST) Only the most recent of3 resultswithin the time period is included. [facility] Iron 74 65 - 175 ug/dL [facility] Transferrin 165(L) 215 - 365 mg/dL [facility] TIBC 231 211 - 406 ug/dL [facility] Iron Saturation (TSat) 32 22 - 52 % [facility] 08/18/2024 3:00 AM EST 08/19/2024 2:01 PM EST Ezequiel Reyes MD LAB BLOOD ORDERABLES Final Result Performing Organization Address [facility] Co de Phone Number [facility] [address] [place] [address] * (ABNORMAL) CBC and Differential (08/18/2024 3:00 AM EST) Only the most recent of3 resultswithin the time period is included. [facility] DIFFERENTIAL MANUAL, 2 Not Indicated [facility] White [...] BLOOD ORDERABLES Final Result Performing Organization Address City/[facility]/ZIP Co de Phone Number [facility] [address] [place] [address] * ALT (08/18/2024 3:00 AM EST) Only the most recent of3 resultswithin the time period is included. ALT (SGPT) 14 10 - 49 U/L [facility] 08/18/2024 3:00 AM EST 08/19/2024 2:01 PM EST Ezequiel Reyes MD LAB BLOOD ORDERABLES Final Result Performing Organization Address [facility] Co de Phone Number [facility] [address] [place] [address] * AST (08/18/2024 3:00 AM EST) Only the most recent of3 resultswithin the time period is included. AST (SGOT) 22 <34 U/L [facility] 08/18/2024 3:00 AM EST 08/19/2024 2:01 PM EST us Ezequiel Reyes MD LAB BLOOD ORDERABLES Final Result Performing Organization Address [facility] de Phone Number [facility] [address] [place] [address] * Protein, total (08/18/2024 3:00 AM EST) Only the most recent of3 resultswithin the time period is included. Total Protein 7.0 6.4 - 8.9 g/dL [facility] 08/18/2024 3:00 AM EST 08/19/2024 2:01 PM EST us Ezequiel Reyes MD LAB BLOOD ORDERABLES Final Result Performing Organization Address [facility] Phone Number [facility] [address] [place] [address] * (ABNORMAL) Alkaline phosphatase (08/18/2024 3:00 AM EST) Only the most recent of3 resultswithin the time period is included. Alkaline Phosphatase 162(H) 46 - 116 U/L [facility] 08/18/2024 3:00 AM EST 08/19/2024 2:01 PM EST us Ezequiel Reyes MD LAB BLOOD ORDERABLES Final Result Performing Organization Address [facility] de Phone Number [facility] [address] [place] [address] * Magnesium (08/18/2024 3:00 AM EST) Only the most recent of3 resultswithin the time period is included. Magnesium 2.2 1.9 - 2.7 mg/dL [facility] 08/18/2024 3:00 AM EST 08/19/2024 2:01 PM EST us Ezequiel Reyes MD LAB BLOOD ORDERABLES Final Result Performing Organization Address [facility]/ZIP Co de Phone Number [facility] [address] [place] [address] * (ABNORMAL) Lactate dehydrogenase (08/18/2024 3:00 AM EST) Only the most recent of3 resultswithin the time period is included. LDH 292(H) 120 - 246 U/L [facility] 08/18/2024 3:00 AM EST 08/19/2024 2:01 PM EST Ezequiel Reyes MD LAB BLOOD ORDERABLES Final Result Performing Organization Address [facility] Co de Phone Number [facility] [address] [place] [address] * Glucose, random (08/18/2024 3:00 AM EST) Only the most recent of3 resultswithin the time period is included. Glucose 93 74 - 109 mg/dL [facility] 08/18/2024 3:00 AM EST 08/19/2024 2:01 PM EST Ezequiel Reyes MD LAB BLOOD ORDERABLES Final Result Performing Organization Address [facility] de Phone Number [facility] [address] [place] [address] * (ABNORMAL) Ferritin (08/18/2024 3:00 AM EST) Only the most recent of3 resultswithin the time period is included. Ferritin 1,541(H) 22 - 322 ng/mL [facility] 08/18/2024 3:00 AM EST 08/19/2024 2:01 PM EST Ezequiel Reyes MD LAB BLOOD ORDERABLES Final Result Performing Organization Address [facility] Co de Phone Number [facility] [address] [place] [address] * (ABNORMAL) Creatinine, serum (08/18/2024 3:00 AM EST) Only the most recent of3 resultswithin the time period is included. Creatinine 6.29(H) 0.70 - 1.30 mg/dL [facility] 08/18/2024 3:00 AM EST 08/19/2024 2:01 PM EST us Ezequiel Reyes MD LAB BLOOD ORDERABLES Final Result Performing Organization Address [facility] Co de Phone Number [facility] [address] [place] [address] * Bilirubin, total (08/18/2024 3:00 AM EST) Only the most recent of3 resultswithin the time period is included. Total Bilirubin 0.7 0.3 - 1.2 mg/dL [facility] 08/18/2024 3:00 AM EST 08/19/2024 2:01 PM EST Ezequiel Reyes MD LAB BLOOD ORDERABLES Final Result Performing Organization Address [facility] de Phone Number [facility] [address] [place] [address] * (ABNORMAL) Electrolyte panel (08/18/2024 3:00 AM [...] BLOOD ORDERABLES Final Result Performing Organization Address [facility] de Phone Number [facility] [address] [place] [address] * (ABNORMAL) Hemoglobin and hematocrit (07/07/2024 3:00 AM EST) Pathologist [facility] Hgb 10.2(L) 13.7 - 17.5 g/dL [facility] Hematocrit 31.7(L) 40.1 - 51.0 % [facility] Hemoglobin x 3 30.6(L) 41.1 - 52.5 g/dL [facility] 07/07/2024 3:00 AM EST 07/08/2024 12:53 PM EST Ezequiel Reyes MD LAB BLOOD ORDERABLES Final Result Performing Organization Address [facility]/ZIP Co de Phone Number [facility] [address] [place] [address] * (ABNORMAL) Phosphorus (07/05/2024 3:00 AM EST) [facility] Phosphorus, Serum 8.0(H) 2.5 - 5.0 mg/dL [facility] 07/05/2024 3:00 AM EST 07/06/2024 2:08 PM EST Ezequiel Reyes MD LAB BLOOD ORDERABLES Final Result Performing Organization Address [facility] Co de Phone Number [facility] [address] [place] [address] * Confirmation Test HCV (06/23/2024 3:00 AM EST) [facility] Hep C Ab Confirmation Not needed [facility] 06/23/2024 3:00 AM EST 06/25/2024 12:30 PM EST Ezequiel Reyes MD LAB BLOOD ORDERABLES Final Result Performing Organization Address [facility] Co de Phone Number [facility] [address] [place] [address] * HEPATITIS C ABS W/REFLEX RNA DETECTR (06/23/2024 3:00 AM EST) [facility] Hep C Virus Ab Non-Reacti ve Non-Reacti ve [facility] 06/23/2024 3:00 AM EST 06/25/2024 12:41 PM EST us Ezequiel Reyes MD LAB HISTORICA [id number] RESULTS Final Result Performing Organization Address [facility] de Phone Number [facility] [address] [place] [address] * Aluminum level (06/23/2024 3:00 AM EST) Aluminum 7 1 - 20 ug/L [facility] 06/23/2024 3:00 AM EST 06/25/2024 12:38 PM EST us Ezequiel Reyes MD LAB BLOOD ORDERABLES Final Result Performing Organization Address [facility] de Phone Number [facility] [address] [place] [address] * (ABNORMAL) Hepatitis B Surface Antibody (06/23/2024 3:00 AM EST) Hep B Surface Antibody <4(A) mIU/mL [facility] Comment: Interpretation: <10: No Immunity >=10: Probable Immunity 06/23/2024 3:00 AM EST 06/25/2024 12:41 PM EST us Ezequiel Reyes MD LAB BLOOD ORDERABLES Final Result Performing Organization Address [facility] de Phone Number [facility] [address] [place] [address] * Uric Acid (06/23/2024 3:00 AM EST) Uric Acid 6.5 4.4 - 7.6 mg/dL [facility] 06/23/2024 3:00 AM EST 06/25/2024 12:41 PM EST us Ezequiel Reyes MD LAB BLOOD ORDERABLES Final Result Performing Organization Address [facility]/ZIP Co de Phone Number [facility] [address] [place] [address] * PTH, Intact (06/23/2024 3:00 AM EST) PTH, Intact 362 160 - 721 pg/mL [facility] Comment: Suggested (KDIGO) ESRD maintenance range is two to nine times the upper normal limit (80.1 pg/mL) for the laboratory. 06/23/2024 3:00 AM EST 06/25/2024 12:41 PM EST Ezequiel Reyes MD LAB BLOOD ORDERABLES Final Result Performing Organization Address [facility] de Phone Number [facility] [address] [place] [address] * Hemoglobin A1c (06/23/2024 3:00 AM EST) Pathologist [facility] Hemoglobin A1C 4.4 <5.7 % [facility] Comment: Methodology: Ion-exchange high-performance liquid chromatography (HPLC) HbA1c (NGSP %) ?Suggested Diagnosis >6.4% ? Diabetic 5.7-6.4% ?Pre-Diabetic <5.7% ? Non-Diabetic Diabetic Glucose Control Evaluation: Therapeutic action suggested at >8.0% ADA recommends a glycemic goal of <7.0% 06/23/2024 3:00 AM EST 06/25/2024 12:30 PM EST Ezequiel Reyes MD LAB BLOOD ORDERABLES Final Result Performing Organization Address [facility] de Phone Number [facility] [address] [place] [address] * (ABNORMAL) Lipid panel (06/23/2024 3:00 AM [...] ORDERABLES Final Result [facility] [address] [place] [address] from Last 3 Months Insurance MEDICARE [facility] [place] [address] [facility] MEDICARE Care Teams Experimental Machining Lab Manager Relationship Specialty Start Date End Date Steve Nguyen MD [address] [facility] - General 04/19/19
--- OUTSIDE RECORDS SUMMARY | 2024-09-14 09:51 | XMS_ITS | Patient Health Record ---
Author Organization [facility] Address [address] [place] [address] Care Team Providers Care Iron Assorter Name Role Phone Po Steve ANDERSEN Primary Care Provider Milton Poon Unavailable [phone] Allergies No Known Allergies Reason For Referral [...] A ctive Vitamin D (Ergocalciferol) 1.25 MG (47970 UT) TAKE 1 CAPSULE BY MOUTH ONE [...] sig alcohol . He is originally from [place]. Stopped smoking in 2011; no sig alcohol . He is originally from [place]. Stopped smoking in 2011; no sig alcohol since age 48; heavy drinker from age 18 to age 48. He is originally from [place]. Stopped smoking in 2011; no sig alcohol since age 48; heavy drinker from age 18 to age 48. He is originally from [place]. Stopped smoking in 2011; no sig alcohol since age 48; heavy drinker from age 18 to age 48. He is originally from [place]. Stopped smoking in 2011; no sig alcohol since age 48; heavy drinker from age 18 to age 48. He is originally from [place]. Stopped smoking in 2011; no sig alcohol since age 48; heavy drinker from age 18 to age 48. He is originally from [place]. Problems Problem Type SNOMED Code ICD Code Onset Dates Problem Status W/U Status Risk Notes Problem 740830649 Encounter for screening for malignant neoplasm of colon (Z12.11) Active confirmed Problem 099882209 Alcoholic cirrhosis of liver without ascites (K70.30) Active confirmed Problem 640821719 Alcoholic cirrhosis of liver with ascites (K70.31) Active confirmed Problem 24222371 Constipation, unspecified constipation type (K59.00) Active confirmed Problem 468902991 Hx of adenomatou s colonic polyps (Z86.010) Active confirmed Problem Chronic liver disease (158575533) Chronic liver disease (K76.9) Active confirmed Problem 287827840 Lower extremity edema (R60.0) Active confirmed Plan Of Treatment Pending Test Test Name Order Date LIVER PROFILE 11/20/2021 LIVER PROFILE 07/18/2022 CBC w DIFF 11/20/2021 CBC w DIFF 07/18/2022 PROTHROMBIN TIME (PT, INR) 11/20/2021 PROTHROMBIN TIME (PT, INR) 01/01/2021 HEPATITIS B, C PROFILE 01/01/2021 [id number] (A1A) 01/01/2021 ALPHA-FETOPROTEIN,TUMOR MARKER 3 ALPHA-FETOPROTEIN,TUMOR MARKER [...] Insured Coverage Start Date Coverage End Date [facility] [address] [address] [place] [address] [phone] [id number] [employer] Self - patient is the insured Medical (General) History Medical History History ICD Code Hypertension Chronic renal failure on hem odialysis 3 times per week as of the spring Diet-controlled DM Denies IN nor CVA Neuropathy in the LE's COPD Colonoscopy in 06/2012 with Wilver Dewitt--small tubular adenoma removed---previous colonoscopy in [place] had reported polyps removed as well Sleep apnea--uses CPAP Anemia Anxiety Depression Gout Lupus--Dr. Birch--Dx'd in 2019 Colonoscopy 05/2018 with removal of a sm all tubular adenoma Chronic liver disease probab ly due to EtOH seen on 12/2020 CT scan which was suggestive of cirrhosis with minimal ascites and no sign of splenomegaly--describes a neg. EGD in [place] before moving to [place]; his liver w/u was negative including normal [...] HD fistula left arm 04/2022 Laparotomy at [facility] 2022 for what sounds like a small bowel obstruction and some small bowel resection
--- OUTSIDE RECORDS SUMMARY | 2024-09-14 09:51 | XMS_ITS | Encounter Summary ---
Author Organization [facility] Address [address] [place] [address] Phone Care Team Providers Care Respiratory Director Name Role Phone Steve Nguyen MD Primary Care Provider [phone] Encounter Details Date Type Department Care Team (Late st Contact Info) Description 06/25/2022 Documentation Only [facility] [address] [place] [address] [facility] [place] [address] [place] [phone] Social History Tobacco Use Types Packs/Day [...] visit [facility] - [facility] Access Center [address] [place] [phone] documented as of this encounter Visit Diagnoses Not on filedocumented in this encounter Care Teams Respiratory Director Relationship Specialty Start Date End Date Steve Nguyen MD [address] [place] PCP - General 04/19/19 documented as of this encounter
--- OUTSIDE RECORDS SUMMARY | 2024-09-14 09:51 | XMS_ITS | Encounter Summary ---
Author Organization [facility] Address [address] [place] [address] Phone Care Team Providers Care Payroll Assistant Name Role Phone Steve Nguyen MD Primary Care Provider [phone] Encounter Details Date Type Department Care Team (Late st Contact Info) Description 03/24/2022 Documentation Only [facility] [address] [place] [address] Sahara Rousseau PA Social History [...] [facility] Center [address] [place] [phone] documented as of this encounter Visit Diagnoses Not on filedocumented in this encounter Care Teams Payroll Assistant Relationship Specialty Start Date End Date Steve Nguyen MD [facility] [address] [place] PCP - General 04/19/19 documented as of this encounter
--- OUTSIDE RECORDS SUMMARY | 2024-09-14 09:51 | XMS_ITS | Encounter Summary ---
Author Organization [facility] Address [address] [place] [address] Phone Care Team Providers Care Rn Child Name Role Phone Steve Nguyen MD Primary Care Provider [phone] Encounter Details Date Type Department Care Team (Late st Contact Info) Description 05/22/2022 Documentation Only [facility] [address] [place] [address] Hermelinda Colunga [address] [place] [phone] Social History Tobacco Use Types Packs/Day [...] visit [facility] [address] [place] [phone] documented as of this encounter Visit Diagnoses Not on filedocumented in this encounter Care Teams Rn Child Relationship Specialty Start Date End Date Steve Nguyen MD [address] [place] PCP - General 04/19/19 documented as of this encounter
--- OUTSIDE RECORDS SUMMARY | 2024-09-14 09:51 | XMS_ITS | Encounter Summary ---
Author Organization [facility] Address [address] [place] [address] Phone Care Team Providers Care Chemical Treatment Operator Name Role Phone Steve Nguyen MD Primary Care Provider [phone] Encounter Details Date Type Department Care Team (Late st Contact Info) Description 09/02/2021 Documentation Only [facility] [address] [place] [phone] Bakari Wells MD [address] [place] [address] [place] [phone] Social History Tobacco Use Types Packs/Day Years [...] visit [facility] Center [address] [place] [phone] documented as of this encounter Visit Diagnoses Not on filedocumented in this encounter Care Teams Chemical Treatment Operator Relationship Specialty Start Date End Date Steve Nguyen MD [address] [place] PCP - General 04/19/19 documented as of this encounter
--- OUTSIDE RECORDS SUMMARY | 2024-09-14 09:51 | XMS_ITS | Encounter Summary ---
Author Organization [facility] Address [address] [place] [address] Phone Care Team Providers Care Layout Artist Name Role Phone Steve Nguyen MD Primary Care Provider [phone] Reason for Visit * Reason Comments Med Refill Encounter Details Date Type Department Care Team ([facility] Contact Info) Description 04/01/2022 Refill [facility] [address] [facility] [facility] [address] [place] [address] Bakari Wells MD [address] [place] [address] [place] [address] Social History Tobacco Use Types [...] Upcoming Encounters Date Type Department Care Team ([facility] Contact Info) Description 09/29/2024 2:00 PM EDT Procedure visit [facility] - V[facility] Access Center [address] [place] [address] documented as of this encounter Visit Diagnoses Not on filedocumented in this encounter Care Teams Layout Artist Relationship Specialty Start Date End Date Steve Nguyen MD [facility] [address] [place], [place] PCP - General 04/19/19 documented as of this encounter
--- OUTSIDE RECORDS SUMMARY | 2024-09-14 09:51 | XMS_ITS | Encounter Summary ---
Author Organization [facility] Address [address] [place] [address] Phone Care Team Providers Care Diamond Cutter Name Role Phone Steve Nguyen MD Primary Care Provider [phone] Encounter Details Date Type Department Care Team (Late st Contact Info) Description 09/22/2022 Documentation Only [facility] [address] [place] [address] Sahara Rousseau PA Social History [...] visit [facility] Center [address] [place] [phone] documented as of this encounter Visit Diagnoses Not on filedocumented in this encounter Care Teams Diamond Cutter Relationship Specialty Start Date End Date Steve Nguyen MD [facility] [place] [address] [place] PCP - General 04/19/19 documented as of this encounter
== END 2024-09-14 09:38 | disposition home or self-care (01) ==
LOC: HO.HMCH 09:02
PROVIDERS: PCP Internal Medicine; Visit Provider Internal Medicine
DX: I25.10 Atherosclerotic heart disease of native coronary artery without angina pectoris (principal); I42.9 Cardiomyopathy, unspecified; M32.9 Systemic lupus erythematosus, unspecified; I12.0 Hypertensive chronic kidney disease with stage 5 chronic kidney disease or end stage renal disease; I48.0 Paroxysmal atrial fibrillation; Z95.0 Presence of cardiac pacemaker; N18.6 End stage renal disease; F33.9 Major depressive disorder, recurrent, unspecified; K21.9 Gastro-esophageal reflux disease without esophagitis; E78.00 Pure hypercholesterolemia, unspecified; I73.9 Peripheral vascular disease, unspecified; Z13.9 Encounter for screening, unspecified

== ENCOUNTER → 2024-09-14 09:01 | Outpatient (BNVA) | payer MEDICARE, SELFPAY | PROVIDERS: PCP Internal Medicine; Visit Provider Internal Medicine | DX: I25.10 Atherosclerotic heart disease of native coronary artery without angina pectoris (principal); I42.9 Cardiomyopathy, unspecified; I48.0 Paroxysmal atrial fibrillation; Z95.0 Presence of cardiac pacemaker; Z98.890 Other specified postprocedural states; M32.9 Systemic lupus erythematosus, unspecified; I12.0 Hypertensive chronic kidney disease with stage 5 chronic kidney disease or end stage renal disease; E11.22 Type 2 diabetes mellitus with diabetic chronic kidney disease; N18.6 End stage renal disease; F33.9 Major depressive disorder, recurrent, unspecified; K21.9 Gastro-esophageal reflux disease without esophagitis; E78.00 Pure hypercholesterolemia, unspecified; I73.9 Peripheral vascular disease, unspecified | CPT/HCPCS: 83036; 99212 ==

== ENCOUNTER 2024-09-14 12:55 | Outpatient (AMB) | payer MEDICARE, SELFPAY ==
--- NOTE | 2024-09-14 13:22 | A.OFFVIS_ITS ---
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 Accompanied by: Self / Same As Patient Allergies No Known Allergies [No Known Allergies*] Allergy (Verified 09/14/24 09:09) Medication List - Last Reconciled 09/14/24 by Tavo Cowart NP albuterol sulfate 90 mcg/actuation (ProAir HFA) 2 puffs inhalation Q6H PRN amlodipine 5 mg PO DAILY Anoro Ellipta 62.5-25 mcg/actuation (umeclidinium-vilanterol) 1 ea inhalation DAILY NS [APAP 5-15 cm H20 humidified AIR As directed] apixaban 2.5 mg PO BID blood sugar diagnostic (FreeStyle Lite Strips) As directed check the BS BID blood-glucose meter (FreeStyle Lite Meter kit) As directed clopidogrel 75 mg PO DAILY compr.stocking,thigh,reg,x-lrg As directed 20-30 mm HG kylah.stocking,knee,reg,xlrg As directedcompression stockings bilateral adjustable lower extremity garments ergocalciferol (vitamin D2) 50 mcg PO DAILY hydroxychloroquine 200 mg PO Q OTHER DAY [Juxta Lite Compression wraps - Adjustable -for chronic ulcers with open wounds bilat lower extremities As directed] ketoconazole 2% appl topical DAILY lancets (FreeStyle Lancets) As directed check BS BID metoprolol tartrate 25 mg PO BID midodrine 5 mg PO DAILY polyethylene glycol 3350 (Miralax) 17 grams PO DAILY PRN pravastatin 20 mg PO DAILY sevelamer carbonate mg PO tramadol 50 mg PO BEDTIME HPI Comments Details: This is a 69-year-old male patient presenting for a follow-up visit. The patient has a history of hypertension, hyperlipidemia, diabetes, PVD, paroxysmal AFib, pulmonary hypertension, chronic kidney disease on dialysis, junctional bradycardia status post pacemaker placement, sleep apnea, and cardiomyopathy. In January patient had severe LV dysfunction and underwent a diagnostic angiogram which revealed severe coronary artery disease that was medically managed. In June, patient returned with complaints of exertional chest pain prompting another cardiac catheterization status post stent to the RCA on August [address] Ron at [facility]. Today, the patient reports feeling well overall and denies any cardiac symptoms, including exertional chest pain, shortness of breath, palpitations, dizziness, fatigue, orthopnea, PND, leg edema, presyncope, or syncope. The patient affirms compliance with all his prescribed medications. PENDING SALE TO [facility] Medical History Blood clot in arm (~04/11/24) CKD (chronic kidney disease) stage 4, GFR 15-29 ml/min Obstructive sleep apnea HTN (hypertension) Dermatitis associated with moisture from stool incontinence Clostridioides difficile diarrhea Urinary retention with incomplete bladder emptying Pacemaker Pancytopenia Incomplete emptying of bladder due to benign prostatic hyperplasia Acute kidney injury superimposed on chronic kidney disease Fistula Paroxysmal A-fib Diastolic heart failure Pulmonary hypertension Depression, major Afib Bradycardia Scrotal edema Anasarca Cirrhosis Lymphedema Type 2 diabetes mellitus with hyperglycemia Osteoarthritis Peripheral neuropathy BPH (benign prostatic hyperplasia) Venous stasis dermatitis Obesity (BMI 30-39.9) Hypercholesterolemia Peripheral vascular disease Pulmonary hypertension Essential thrombocytopenia Anemia COPD (chronic obstructive pulmonary disease) Diabetic retinopathy Chronic kidney disease Lumbar degenerative disc disease High cholesterol Edema Gout Surgical History S/P cardiac catheterization Hx of cardiac pacemaker History of bowel diversion surgery History of gastric surgery H/O prior ablation treatment History of carpal tunnel release History of bilateral cataract extraction History of tonsillectomy Family History Father Prostate cancer CVD (cardiovascular disease) Mother Hemochromatosis Brother Motor vehicle accident Sister CAD (coronary artery disease) Maternal Grandfather Myocardial infarction Social History Household Members: Spouse Housing: House Do you presently have visiting nurse or other home services: Yes Alcohol intake: never Patient Tobacco Use Status: Former Tobacco user Tobacco use type: Cigarette e-Cigarette/Vaping Use: Former Use Second Hand Smoke Exposure: Yes Advance Directives Date on File: 11/06/22 service: No Current occupational status: retired Cognitive needs: Yes Hearing needs: Yes Vision needs: Yes Review of Systems Const Denies chills, Denies fatigue, Denies fever(s), Denies frequent falls, Denies weakness, Denies weight gain and Denies weight loss ENT Denies dizziness Card Denies chest pain, Denies leg edema, Denies lightheadedness, Denies palpitations, Denies dyspnea and Denies dyspnea on exertion Resp Denies cough, Denies dyspnea and Denies dyspnea on exertion GI Denies hematochezia Musc Denies abnormal gait, Denies muscle weakness, Denies numbness, Denies radiating pain into limb and Denies tingling Neuro Denies abnormal gait, Denies dizziness, Denies frequent falls, Denies numbness, Denies tingling and Denies weakness Endo Denies fatigue and Denies palpitations Physical Exam Vital Signs: Last Vital Signs Pulse 63 09/14/24 13:24 BP 112/64 09/14/24 13:24 BMI result Body Mass Index 32.3 Const General: cooperative, healthy appearing, comfortable and no acute distress Orientation/consciousness: patient oriented x3 HEENT Head: Yes normal to inspection Neck Neck: Yes normal visual inspection, Yes trachea midline and Yes supple Chest Chest palpation & inspection: normal inspection of the chest Resp Effort & Inspection: normal respiratory effort Auscultation: clear to auscultation bilaterally, no crackles, no rales, no rhonchi and no wheezes Cardio Jugular venous distension: no JVD Palpation: normal PMI Rate: regular rate Rhythm: regular rhythm Heart sounds: S1 normal heart sound present, S2 normal heart sound present, no click, no gallops, no murmurs and no rubs Peripheral pulses: Peripheral pulses 2+ throughout GI Inspection: Yes normal to inspection Palpation (GI): Soft to palpation Auscultation: normal bowel sounds Skin General skin exam: no rashes or lesions noted Neuro General: patient oriented x3 Extrem General: Yes normal to inspection, No no pedal edema and No calf tenderness Psych Appearance: grossly normal Mental Status: mental status grossly normal Speech and movement: Normal speech and movement present Results AMB Hemoglobin A1c AMB Hemoglobin A1c 5.0 % Last Edit by Liv Omer CMA on 09/14/24 09 :23 Assessment & Plan Assessment & Plan (1) Coronary artery disease: Code(s): I25.10 - Atherosclerotic heart disease of [place] coronary artery without angina pectoris Category: Medical Plan: 08/31/2024-patient underwent cardiac catheterization with Dr. Ron at [facility] that showed severe mid RCA stenosis at 100%, 60% stenosis in the mid LAD, 65% stenosis in the mid left circumflex; successful PCI with drug-eluting stent to mid RCA with mechanical atherectomy and intravascular lithotripsy. Patient states his catheterization site in the left groin is well healed. Continue Eliquis and Plavix therapy. No reported signs of bleeding. Continue amlodipine, metoprolol, and statin therapy. Most recent LDL within goal of LDL less than 70. We will monitor labs periodically has upcoming labs with PCP. Patient has been referred out to cardiac rehab and is waiting to hear from them. (2) S/P cardiac catheterization: Code(s): Z98.890 - Other specified postprocedural states Category: Surgical Plan: As above. (3) Cardiomyopathy: Code(s): I42.9 - Cardiomyopathy, unspecified Category: Medical Qualifiers: Cardiomyopathy type: unspecified Qualified Code(s): I42.9 - Cardiomyopathy, unspecified Plan: 01/27/2024-patient's echo study showed severely decreased EF between 20-25%, akinetic basal inferior and mid inferior segments, mildly decreased RV systolic function, significantly elevated right atrial pressure, moderate pulmonary hypertension. Clinically euvolemic. We will repeat echo before his next visit. (4) Afib: Code(s): I48.91 - Unspecified atrial fibrillation Category: Medical Qualifiers: Atrial fibrillation type: paroxysmal Qualified Code(s): I48.0 - Paroxysmal atrial fibrillation Plan: Continue Eliquis and metoprolol therapy for full anticoagulation as well as rate control approach respectively. (5) Pacemaker: Code(s): Z95.0 - Presence of cardiac pacemaker Category: Medical Plan: Patient has a [employer] dual-chamber pacemaker. Adequate battery life. We will follow his pacemaker transmissions remotely. (6) HTN (hypertension): Code(s): I10 - Essential (primary) hypertension Category: Medical Qualifiers: Hypertension type: essential hypertension Qualified Code(s): I10 - Essential (primary) hypertension Plan: Patient's blood pressure is well-controlled. Advised monitoring blood pressures at home and keeping a log of it. Ideally, blood pressure goal less than 130/80. Advised heart healthy diet, regular exercise, losing weight, and aggressive management of his vascular risk factors. Follow-up in 4 months. In the interim, patient will call the office with any concerns or change in symptoms. This note was generated using voice recognition software. While every effort has been made to ensure accuracy and proper professional architect, there may be occasional errors that could affect the content or meaning of the described symptoms. Orders: Orders CA echo transthoracic complete Today I42.9 - Cardiomyopathy, unspecified Coding Level of Care Code Est Pt Level 4 (12909) Complex EM visit Add On G2211 Diagnoses Coronary artery disease I25.10 S/P cardiac catheterization Z98.890 Cardiomyopathy, unspecified type I42.9 Cardiomyopathy type: unspecified Paroxysmal atrial fibrillation I48.0 Atrial fibrillation type: paroxysmal Pacemaker Z95.0 Essential hypertension I10 Hypertension type: essential hypertension Time Spent (min) 34 Comment Time spent in reviewing the chart, test results, assessment, counseling and documentation.
[2024-09-14 13:24] VITALS: BP 112/64; PULSE 63; BMI 32.3
--- OUTSIDE RECORDS SUMMARY | 2024-09-14 15:27 | XMS_ITS | Clinical Summary ---
Author Organization [facility], Address [address] [place] [address] Phone Care Team Providers Care Display Designer Outside Name Role Phone Steve Nguyen MD Primary Care Provider [phone] Allergies Active Allergy Reactions Criticality Noted Date Comments Ferumoxytol Other (see comments) High 04/02/2021 Chest pain, chills Other reaction(s): Other (see comments) Chest pain, chills Medications isosorbide mononitrate (IMDUR) 30 MG 24 hr tablet Take 30 mg by mouth 1 (one) time each day 2 Active Vitamin D, Ergocalciferol, 27651 units capsule Take 1 capsule by mouth [...] tablet 2 4 Active epoetin gaby (EPOGEN,PROCRIT) 59235 UNIT/ML injection Inject 10,000 Units under the [...] 09/13/2024 [facility] [address] [address] Ezequiel Reyes MD End stage renal disease; Dependence on renal dialysis 09/06/2024 [facility] [address] [address] Ezequiel Reyes MD End stage renal disease; Dependence on renal dialysis 09/01/2024 Treatment [facility] [address] [address] Ezequiel Reyes MD End stage renal disease; Dependence on renal dialysis 08/23/2024 Treatment [facility] [address] [address] Ezequiel Reyes MD End stage renal disease; Dependence on renal dialysis 08/16/2024 Treatment [facility] [address] [address] Ezequiel Reyes MD End stage renal disease; Dependence on renal dialysis 08/11/2024 Treatment [facility] [address] [address] Ezequiel Reyes MD 08/09/2024 Treatment [facility] [address] [address] Ezequiel Reyes MD 08/01/2024 [place] [facility] [address] [place] [address] Sylvie Daniel post op call 07/30/2024 Treatment [facility] [address] [address] Ezequiel Reyes MD 07/29/2024 11:00 AM EST Procedure visit [facility] [address] [place] [address] Milton Stone MD End stage renal disease (HCC) (Primary Dx); Stenosis of other vascular prosthetic devices, implants and grafts, initial encounter (HCC) 07/28/2024 Telephone [facility] [address] [place] [address] Pamela Cespedes 07/28/2024 Telephone [facility] [address] [place] [address] Pamela Cespedes 07/19/2024 Treatment [facility] [address] [phone] Ezequiel Reyes MD 07/07/2024 Treatment [facility] [address] [address] Ezequiel Reyes MD 06/30/2024 Treatment [facility] [address] [address] Ezequiel Reyes MD 06/23/2024 Treatment [facility] [address] [phone] Arvind Avila MD 06/16/2024 Treatment [facility] [address] [address] Ezequiel Reyes MD from Last 3 Months [...] visit [facility] [address] [place] [address] Health Maintenance Due Date Last Done [...] EDT us Ezequiel Reyes MD LAB HISTORICA [id number] RESULTS Final Result [facility] [address] [place] [address] * Potassium (09/08/2024 3:00 AM EDT) Only the most recent of8 resultswithin the time period is included. Potassium 4.3 3.4 - 5.0 mEq/L [facility] 09/08/2024 3:00 AM EDT 09/09/2024 1:26 PM EDT us Ezequiel Reyes MD LAB BLOOD ORDERABLES Final Result Performing Organization Address [facility] Co de Phone Number [facility] [address] [place] [address] * Collection Date (09/03/2024 3:00 AM EDT) [...] EDT us Ezequiel Reyes MD LAB HISTORICA [id number] RESULTS Final Result Performing Organization Address [facility] de Phone Number [facility] [address] [place] [address] * (ABNORMAL) Hemoglobin (09/03/2024 3:00 AM EDT) Only the most recent of2 resultswithin the time period is included. Hgb 10.4(L) 13.7 - 17.5 g/dL [facility] Hemoglobin x 3 31.2(L) 41.1 - 52.5 g/dL [facility] 09/03/2024 3:00 AM EDT 09/06/2024 12:59 PM EDT us Ezequiel Reyes MD LAB BLOOD ORDERABLES Final Result Performing Organization Address [facility] de Phone Number [facility] [address] [place] [address] * (ABNORMAL) Calcium Phosphorus Product, Adjusted (08/30/2024 3:00 AM EDT) Only the most recent of4 resultswithin the time period is included. Pathologist [facility] Albumin 4.1 3.6 - 5.4 g/dL [facility] Calcium 9.0 8.6 - 10.3 mg/dL [facility] Phosphorus, Serum 7.3(H) 2.5 - 5.0 mg/dL [facility] Ca*PO4 65.7(A) <55.0 mg2/dL2 [facility] Calcium, Adjusted Total 9.0 8.6 - 10.3 mg/dL [facility] CA*PO4 CORRCTD 65.7(A) <55.0 mg2/dL2 [facility] 08/30/2024 3:00 AM EDT 08/31/2024 12:20 PM EDT us Ezequiel Reyes MD LAB HISTORICA [id number] RESULTS Final Result Performing Organization Address [facility] Co de Phone Number [facility] [address] [place] [address] * (ABNORMAL) Kt/V Natural Log, URR (08/27/2024 3:00 AM EDT) Only the most recent of5 resultswithin the time period is included. Pathologist [facility] Treatment Time 234 min [facility] Pre-Weight, lb [...] EDT us Ezequiel Reyes MD LAB HISTORICA [id number] RESULTS Final Result Performing Organization Address [facility] Co de Phone Number [facility] [address] [place] [address] * Hepatitis B Surface Ag w/Reflex Confirmation (08/18/2024 3:00 AM EST) Only the most recent of3 resultswithin the time period is included. [facility] Hep B Surface Antigen Negative Negative [facility] 08/18/2024 3:00 AM EST 08/19/2024 2:01 PM EST Ezequiel Reyes MD LAB BLOOD ORDERABLES Final Result Performing Organization Address [facility] Co de Phone Number [facility] [address] [place] [address] * (ABNORMAL) TSAT (08/18/2024 3:00 AM EST) Only the most recent of3 resultswithin the time period is included. [facility] Iron 74 65 - 175 ug/dL [facility] Transferrin 165(L) 215 - 365 mg/dL [facility] TIBC 231 211 - 406 ug/dL [facility] Iron Saturation (TSat) 32 22 - 52 % [facility] 08/18/2024 3:00 AM EST 08/19/2024 2:01 PM EST Ezequiel Reyes MD LAB BLOOD ORDERABLES Final Result Performing Organization Address [facility] Co de Phone Number [facility] [address] [place] [address] * (ABNORMAL) CBC and Differential (08/18/2024 3:00 AM EST) Only the most recent of3 resultswithin the time period is included. [facility] DIFFERENTIAL MANUAL, 2 Not Indicated [facility] White [...] BLOOD ORDERABLES Final Result Performing Organization Address [facility]/ZIP Co de Phone Number [facility] [address] [place] [address] * ALT (08/18/2024 3:00 AM EST) Only the most recent of3 resultswithin the time period is included. ALT (SGPT) 14 10 - 49 U/L [facility] 08/18/2024 3:00 AM EST 08/19/2024 2:01 PM EST Ezequiel Reyes MD LAB BLOOD ORDERABLES Final Result Performing Organization Address [facility] Co de Phone Number [facility] [address] [place] [address] * AST (08/18/2024 3:00 AM EST) Only the most recent of3 resultswithin the time period is included. AST (SGOT) 22 <34 U/L [facility] 08/18/2024 3:00 AM EST 08/19/2024 2:01 PM EST us Ezequiel Reyes MD LAB BLOOD ORDERABLES Final Result Performing Organization Address [facility] de Phone Number [facility] [address] [place] [address] * Protein, total (08/18/2024 3:00 AM EST) Only the most recent of3 resultswithin the time period is included. Total Protein 7.0 6.4 - 8.9 g/dL [facility] 08/18/2024 3:00 AM EST 08/19/2024 2:01 PM EST us Ezequiel Reyes MD LAB BLOOD ORDERABLES Final Result Performing Organization Address [facility] Phone Number [facility] [address] [place] [address] * (ABNORMAL) Alkaline phosphatase (08/18/2024 3:00 AM EST) Only the most recent of3 resultswithin the time period is included. Alkaline Phosphatase 162(H) 46 - 116 U/L [facility] 08/18/2024 3:00 AM EST 08/19/2024 2:01 PM EST us Ezequiel Reyes MD LAB BLOOD ORDERABLES Final Result Performing Organization Address [facility] de Phone Number [facility] [address] [place] [address] * Magnesium (08/18/2024 3:00 AM EST) Only the most recent of3 resultswithin the time period is included. Magnesium 2.2 1.9 - 2.7 mg/dL [facility] 08/18/2024 3:00 AM EST 08/19/2024 2:01 PM EST us Ezequiel Reyes MD LAB BLOOD ORDERABLES Final Result Performing Organization Address [facility]/ZIP Co de Phone Number [facility] [address] [place] [address] * (ABNORMAL) Lactate dehydrogenase (08/18/2024 3:00 AM EST) Only the most recent of3 resultswithin the time period is included. LDH 292(H) 120 - 246 U/L [facility] 08/18/2024 3:00 AM EST 08/19/2024 2:01 PM EST Ezequiel Reyes MD LAB BLOOD ORDERABLES Final Result Performing Organization Address [facility] Co de Phone Number [facility] [address] [place] [address] * Glucose, random (08/18/2024 3:00 AM EST) Only the most recent of3 resultswithin the time period is included. Glucose 93 74 - 109 mg/dL [facility] 08/18/2024 3:00 AM EST 08/19/2024 2:01 PM EST Ezequiel Reyes MD LAB BLOOD ORDERABLES Final Result Performing Organization Address [facility] de Phone Number [facility] [address] [place] [address] * (ABNORMAL) Ferritin (08/18/2024 3:00 AM EST) Only the most recent of3 resultswithin the time period is included. Ferritin 1,541(H) 22 - 322 ng/mL [facility] 08/18/2024 3:00 AM EST 08/19/2024 2:01 PM EST Ezequiel Reyes MD LAB BLOOD ORDERABLES Final Result Performing Organization Address [facility] Co de Phone Number [facility] [address] [place] [address] * (ABNORMAL) Creatinine, serum (08/18/2024 3:00 AM EST) Only the most recent of3 resultswithin the time period is included. Creatinine 6.29(H) 0.70 - 1.30 mg/dL [facility] 08/18/2024 3:00 AM EST 08/19/2024 2:01 PM EST us Ezequiel Reyes MD LAB BLOOD ORDERABLES Final Result Performing Organization Address [facility] Co de Phone Number [facility] [address] [place] [address] * Bilirubin, total (08/18/2024 3:00 AM EST) Only the most recent of3 resultswithin the time period is included. Total Bilirubin 0.7 0.3 - 1.2 mg/dL [facility] 08/18/2024 3:00 AM EST 08/19/2024 2:01 PM EST Ezequiel Reyes MD LAB BLOOD ORDERABLES Final Result Performing Organization Address [facility] de Phone Number [facility] [address] [place] [address] * (ABNORMAL) Electrolyte panel (08/18/2024 3:00 AM [...] BLOOD ORDERABLES Final Result Performing Organization Address [facility] de Phone Number [facility] [address] [place] [address] * (ABNORMAL) Hemoglobin and hematocrit (07/07/2024 3:00 AM EST) Pathologist [facility] Hgb 10.2(L) 13.7 - 17.5 g/dL [facility] Hematocrit 31.7(L) 40.1 - 51.0 % [facility] Hemoglobin x 3 30.6(L) 41.1 - 52.5 g/dL [facility] 07/07/2024 3:00 AM EST 07/08/2024 12:53 PM EST Ezequiel Reyes MD LAB BLOOD ORDERABLES Final Result Performing Organization Address [facility]/ZIP Co de Phone Number [facility] [address] [place] [address] * (ABNORMAL) Phosphorus (07/05/2024 3:00 AM EST) [facility] Phosphorus, Serum 8.0(H) 2.5 - 5.0 mg/dL [facility] 07/05/2024 3:00 AM EST 07/06/2024 2:08 PM EST Ezequiel Reyes MD LAB BLOOD ORDERABLES Final Result Performing Organization Address [facility] Co de Phone Number [facility] [address] [place] [address] * Confirmation Test HCV (06/23/2024 3:00 AM EST) [facility] Hep C Ab Confirmation Not needed [facility] 06/23/2024 3:00 AM EST 06/25/2024 12:30 PM EST Ezequiel Reyes MD LAB BLOOD ORDERABLES Final Result Performing Organization Address [facility] Co de Phone Number [facility] [address] [place] [address] * HEPATITIS C ABS W/REFLEX RNA DETECTR (06/23/2024 3:00 AM EST) [facility] Hep C Virus Ab Non-Reacti ve Non-Reacti ve [facility] 06/23/2024 3:00 AM EST 06/25/2024 12:41 PM EST us Ezequiel Reyes MD LAB HISTORICA [id number] RESULTS Final Result Performing Organization Address [facility] de Phone Number [facility] [address] [place] [address] * Aluminum level (06/23/2024 3:00 AM EST) Aluminum 7 1 - 20 ug/L [facility] 06/23/2024 3:00 AM EST 06/25/2024 12:38 PM EST us Ezequiel Reyes MD LAB BLOOD ORDERABLES Final Result Performing Organization Address [facility] de Phone Number [facility] [address] [place] [address] * (ABNORMAL) Hepatitis B Surface Antibody (06/23/2024 3:00 AM EST) Hep B Surface Antibody <4(A) mIU/mL [facility] Comment: Interpretation: <10: No Immunity >=10: Probable Immunity 06/23/2024 3:00 AM EST 06/25/2024 12:41 PM EST us Ezequiel Reyes MD LAB BLOOD ORDERABLES Final Result Performing Organization Address [facility] de Phone Number [facility] [address] [place] [address] * Uric Acid (06/23/2024 3:00 AM EST) Uric Acid 6.5 4.4 - 7.6 mg/dL [facility] 06/23/2024 3:00 AM EST 06/25/2024 12:41 PM EST us Ezequiel Reyes MD LAB BLOOD ORDERABLES Final Result Performing Organization Address [facility]/ZIP Co de Phone Number [facility] [address] [place] [address] * PTH, Intact (06/23/2024 3:00 AM EST) PTH, Intact 362 160 - 721 pg/mL [facility] Comment: Suggested (KDIGO) ESRD maintenance range is two to nine times the upper normal limit (80.1 pg/mL) for the laboratory. 06/23/2024 3:00 AM EST 06/25/2024 12:41 PM EST Ezequiel Reyes MD LAB BLOOD ORDERABLES Final Result Performing Organization Address [facility] de Phone Number [facility] [address] [place] [address] * Hemoglobin A1c (06/23/2024 3:00 AM EST) Pathologist [facility] Hemoglobin A1C 4.4 <5.7 % [facility] Comment: Methodology: Ion-exchange high-performance liquid chromatography (HPLC) HbA1c (NGSP %) ?Suggested Diagnosis >6.4% ? Diabetic 5.7-6.4% ?Pre-Diabetic <5.7% ? Non-Diabetic Diabetic Glucose Control Evaluation: Therapeutic action suggested at >8.0% ADA recommends a glycemic goal of <7.0% 06/23/2024 3:00 AM EST 06/25/2024 12:30 PM EST Ezequiel Reyes MD LAB BLOOD ORDERABLES Final Result Performing Organization Address [facility] de Phone Number [facility] [address] [place] [address] * (ABNORMAL) Lipid panel (06/23/2024 3:00 AM [...] ORDERABLES Final Result [facility] [address] [place] [address] from Last 3 Months Insurance MEDICARE [facility] MEDICARE [facility] MEDICARE Care Teams Display Designer Outside Relationship Specialty Start Date End Date Steve Nguyen MD [address] [place] [facility] - General 04/19/19
--- OUTSIDE RECORDS SUMMARY | 2024-09-14 15:27 | XMS_ITS | Encounter Summary ---
Author Organization [facility] Address [address] [place] [address] Phone Care Team Providers Care Hollow Handle Bench Worker Name Role Phone Steve Nguyen MD Primary Care Provider [phone] Encounter Details Date Type Department Care Team (Late st Contact Info) Description 07/31/2022 Documentation Only [facility] [address] [address] Sahara Rousseau PA Social History [...] visit [facility] Center [address] [place] [address] documented as of this encounter Visit Diagnoses Not on filedocumented in this encounter Care Teams Hollow Handle Bench Worker Relationship Specialty Start Date End Date Steve Nguyen MD [facility] [address] HEIDI ZIMMERMAN PCP - General 04/19/19 documented as of this encounter
--- OUTSIDE RECORDS SUMMARY | 2024-09-14 15:27 | XMS_ITS | Continuity of Care Document ---
Author Organization [facility] Address [address] [place] [address] Phone Care Team Providers Care Bag Machine Tender Name Role Phone Lucio ANDERSEN, Norm Unavailable Unavailab le Allergies, Adverse Reactions, Alerts Substance Reaction Status Criticality No Known allergies Medications Medication Instructions Dosage Effective Dates (start - stop) Status Comments Proventil HFA 90 mcg/actuation Aerosol Inhaler inhale 2 puff by inhalation route four times a day as needed - Active Hyzaar 100 mg-12.5 mg Tab take 1 tablet by oral route every day 1.00 tablet - Active Lotrel 10 mg-40 mg Cap take 1 capsule by oral route every day 1.00 capsule - Active carvedilol 25 mg Tab take 1 tablet (25MG) by oral route 2 times every day with food 25 MG - Active Hytrin 5 mg Cap take 1 capsule (5MG) by oral route every day - Active meloxicam 7.5 mg Tab take 1 tablet (7.5MG) by oral route every day 7.5 MG - Active pravastatin 40 mg Tab take 1 tablet (40MG) by oral route every day 40 MG - Active citalopram 40 mg Tab take 1 tablet (40MG) by oral route every day 40 MG - Active ASPIRIN (unknown strength) take 1 tablet by oral route every day Not Available - Active METFORMIN HCL (unknown strength) take 1/2 tab a day by mouth Not Available - Active Procedures Procedure Date [...] Date Provider Providers Copied on Encounter [facility], [address] [place] [address], [address] [place] [address], tel:[phone] [facility] No Information 3 Lucio Zheng. [address] [facility], [id number] [place], [place], [address] [place] [address], . [phone] [facility], [address] [place] [address], [address] [place] [address], tel:[phone] [facility] No Information 2 Lucio Zheng. [address] [facility], [id number] [place], [place], [address] [place] [address], . tel:[phone] Ofc/Outpt Visit, Est, Level 3 [facility], [address] [place] [address], [address] [place] [address], tel:[phone] [facility] spinal stenosis (chief complaint) neuropathy (chief complaint) Spinal stenosisPerip heral neuropathy 2 Lucio Zheng. [address] [facility], [id number] [place], [place], [address] [place] [address], . tel:[phone] Referring Provider: Norm Michel i, [address] [place] [address] [id number] [place], [place], [address] . tel:[phone] [facility], [address] [place] [address], [id number], [place] tel:[phone] Int Med [facility] No Information 2 Lucio Zheng. [address], [id number] [place], [id number], [place]. tel:[phone] [facility], [address] [place] [address], [id number], [place] tel:[phone] Neurology No Information 2 Betofloridalma Shaheed. [address], [place], [address]. tel:[phone] Referring Provider: Shaheed Lopez, [address], [place], [address]. tel:[phone] OFFICE/OUTPA TIENT VISIT, [facility], [address] [place] [address], [id number], [place] tel:[phone] Int Med [facility] No Information 2 Lucio Zheng. [address], [id number] [place], [id number], [place]. tel:[phone] Referring Provider: Norm Michel i, [address] [place] [address] [id number] [place], [address] . tel:[phone] [facility], [address] [place] [address], [id number], [place] tel:[phone] [facility] No Information 2 Matias Manjarrez. [address], [place], [id number], [place]. tel:[phone] Referring Provider: Loki Salcedo, [address], [place], [address] . tel:[phone] [facility], [address] [place] [address], [id number], [place] tel:[phone] Neurosciences [facility] No Information 2 Matias Manjarrez. [address], [place], [place], [id number], [place]. tel:[phone] Referring Provider: Loki Salcedo, [address] , [place], [address] . tel:[phone] OFFICE/OUTPA TIENT VISIT, [facility], [address] [place] [address], [id number], [place] tel:[phone] [facility] No Information 2 Lucio Zheng. [address], [id number] [place], [place], [id number], [place]. tel:[phone] Referring Provider: Norm Michel i, [address] [id number], [place], [address] . tel:[phone] [facility], [address] [place] [address], [id number], [place] tel:[phone] [facility] No Information 2 Matias Loki. [address] , [place], [place], [id number], [place]. tel:[phone] Referring Provider: Loki Salcedo, [address], [place], [address] . tel:[phone] OFFICE/OUTPA TIENT VISIT, [facility], [address] [place] [address], [id number], [place] tel:[phone] [facility] No Information 1 Lucio Zheng. [address], [id number] [place], [place], [id number], [place]. tel:[phone] Referring Provider: Norm Michel i, [address] [id number], [place], [address] . tel:[phone] PREV VISIT, EST, AGE 40-64 [facility], [address] [place] [address], [id number], [place] tel:[phone] [facility] No Information Lucio Zheng. [address] [place] [address], [id number] , [place], [place], [id number], . tel:[phone] Referring Provider: Norm Michel i, [address] [place] [address] [id number], [place], [address] . tel:[phone] Family History Family Member Type Diagnosis Age At Onset Father Problem (finding) prostate cancer Payers Payer name Insurance type Covered alliance party ID Arley perry(s) [facility] [id number] Social History Type Description Quantity Date Captured [...]
--- OUTSIDE RECORDS SUMMARY | 2024-09-14 15:28 | XMS_ITS | Encounter Summary ---
Author Organization [facility] Address [address] [place] [address] Phone Care Team Providers Care Investment Analyst Name Role Phone Steve Nguyen MD Primary Care Provider [phone] Encounter Details Date Type Department Care Team (Late st Contact Info) Description 05/22/2022 Documentation Only [facility] [address] [place] [address] Hermelinda Colunga [address] [place] [phone] Social History Tobacco Use Types Packs/Day [...] [facility] [address] [place] [address] documented as of this encounter Visit Diagnoses Not on filedocumented in this encounter Care Teams Investment Analyst Relationship Specialty Start Date End Date Steve Nguyen MD [address] [place] PCP - General 04/19/19 documented as of this encounter
--- OUTSIDE RECORDS SUMMARY | 2024-09-14 15:28 | XMS_ITS | Encounter Summary ---
Author Organization [facility] Address [address] [place] [address] Phone Care Team Providers Care Block Cableman Name Role Phone Steve Nguyen MD Primary Care Provider [phone] Reason for Visit * Reason Comments Med Refill Encounter Details Date Type Department Care Team (Late Contact Info) Description 04/05/2023 Refill [facility] [address] [place] [address] Bakari Wells MD [address] [place] [address] [place] [phone] Social History Tobacco Use Types Packs/Day Years [...] visit [facility] [place] - [facility] [address] [place] [address] [place] [address] documented as of this encounter Visit Diagnoses Not on filedocumented in this encounter Care Teams Block Cableman Relationship Specialty Start Date End Date Steve Nguyen MD [facility] INTERNAL [place] [address] [place] PCP - General 04/19/19 documented as of this encounter
--- OUTSIDE RECORDS SUMMARY | 2024-09-14 15:28 | XMS_ITS | Encounter Summary ---
Author Organization [facility] Address [address] [place] [address] Phone Care Team Providers Care Passenger Flagman Name Role Phone Steve Nguyen MD Primary Care Provider [phone] Encounter Details Date Type Department Care Team (Late st Contact Info) Description 05/21/2022 Documentation Only [facility] Of [address] [place] [address] Hermelinda Colunga [address] [place] [address] Social History Tobacco Use Types Packs/Day [...] visit [facility] Center [address] [place] [phone] documented as of this encounter Visit Diagnoses Not on filedocumented in this encounter Care Teams Passenger Flagman Relationship Specialty Start Date End Date Steve Nguyen MD [address] [place] PCP - General 04/19/19 documented as of this encounter
--- OUTSIDE RECORDS SUMMARY | 2024-09-14 15:28 | XMS_ITS | Encounter Summary ---
Author Organization [facility] Address [address] [place] [address] Phone Care Team Providers Care Colored Liquid Plastic Applier Name Role Phone Steve Nguyen MD Primary Care Provider [phone] Encounter Details Date Type Department Care Team (Late st Contact Info) Description 03/24/2022 Documentation Only [facility] [address] [place] [address] Sahara Rousseau PA Social History [...] visit [facility] Vascular Access Center [address] [place] [phone] documented as of this encounter Visit Diagnoses Not on filedocumented in this encounter Care Teams Colored Liquid Plastic Applier Relationship Specialty Start Date End Date Steve Nguyen MD [facility] INTERNAL [place] [address] [place] PCP - General 04/19/19 documented as of this encounter
--- OUTSIDE RECORDS SUMMARY | 2024-09-14 15:28 | XMS_ITS | Encounter Summary ---
Author Organization [facility] Address [address] [place] [address] Phone Care Team Providers Care Shipping Weigher Name Role Phone Steve Nguyen MD Primary Care Provider [phone] Encounter Details Date Type Department Care Team (Late st Contact Info) Description 06/25/2022 Documentation Only [facility] [address] [place] [address] [facility] [place] [address] [place] [phone] Social History Tobacco Use Types Packs/Day [...] visit [facility] - [facility] Access Center [address] [place] [phone] documented as of this encounter Visit Diagnoses Not on filedocumented in this encounter Care Teams Shipping Weigher Relationship Specialty Start Date End Date Steve Nguyen MD [address] [place] PCP - General 04/19/19 documented as of this encounter
--- OUTSIDE RECORDS SUMMARY | 2024-09-14 15:28 | XMS_ITS | Encounter Summary ---
Author Organization [facility] Address [address] [place] [address] Phone Care Team Providers Care Carton Making Machine Operator Name Role Phone Steve Nguyen MD Primary Care Provider [phone] Encounter Details Date Type Department Care Team (Late st Contact Info) Description 05/23/2021 Documentation Only [facility] [address] [place] [phone] Bakari Wells MD [address] [place] [address] [place] [phone] Social History Tobacco Use Types Packs/Day Years [...] visit [facility] Vascular Access Center [address] [place] [address] documented as of this encounter Visit Diagnoses Not on filedocumented in this encounter Care Teams Carton Making Machine Operator Relationship Specialty Start Date End Date Steve Nguyen MD [address] [place] PCP - General 04/19/19 documented as of this encounter
--- OUTSIDE RECORDS SUMMARY | 2024-09-14 15:28 | XMS_ITS | Encounter Summary ---
Author Organization [facility] Address [address] [place] [address] Phone Care Team Providers Care Red Hat Linux Administrator Name Role Phone Steve Nguyen MD Primary Care Provider [phone] Reason for Visit * Reason Comments Med Refill Encounter Details Date Type Department Care Team (Late st Contact Info) Description 05/10/2022 Refill [facility] [address] [place] [phone] Bakari Wells MD [address] [place] [address] Social History Tobacco Use Types [...] Procedure visit [facility] V[facility] Access Center [address] [address] documented as of this encounter Visit Diagnoses Not on filedocumented in this encounter Care Teams Red Hat Linux Administrator Relationship Specialty Start Date End Date Steve Nguyen MD [facility] INTERNAL [address] [place], [place] PCP - General 04/19/19 documented as of this encounter
--- OUTSIDE RECORDS SUMMARY | 2024-09-14 15:28 | XMS_ITS | Clinical Summary ---
Author Organization [facility] Address [address] [place] [address] Care Team Providers Care Lamp Shade Maker Name Role Phone Steve Nguyen MD Primary Care Provider [phone] Allergies Active Allergy Reactions Criticality Noted Date [...] daily. 0 04/02/2022 Active epoetin gaby (PROCRIT) 38761 UNIT/ML injection Inject 1 mL (20,000 Units [...] age to complete this topic Care Teams Lamp Shade Maker Relationship Specialty Start Date End Date Po, Steve Dawn MD [address] [place] [address] Dr [address] [facility] [place] [address] PCP - General Internal Medicine 06/18/22
--- OUTSIDE RECORDS SUMMARY | 2024-09-14 15:28 | XMS_ITS | Encounter Summary ---
Author Organization [facility] Address [address] [place] [address] Phone Care Team Providers Care Mexican Food Maker Name Role Phone Steve Nguyen MD Primary Care Provider [phone] Encounter Details Date Type Department Care Team (Late st Contact Info) Description 05/22/2022 Documentation Only [facility] [address] [place] [address] Hermelinda Colunga [address] [place] [address] Social History Tobacco Use Types Packs/Day [facility] [address] [place] [phone] documented as of this encounter Visit Diagnoses Not on filedocumented in this encounter Care Teams Mexican Food Maker Relationship Specialty Start Date End Date Steve Nguyen MD [address] [place] PCP - General 04/19/19 documented as of this encounter
--- OUTSIDE RECORDS SUMMARY | 2024-09-14 15:28 | XMS_ITS | Encounter Summary ---
Author Organization [facility] Address [address] [place] [address] Phone Care Team Providers Care Manager Crisis Name Role Phone Steve Nguyen MD Primary Care Provider [phone] Encounter Details Date Type Department Care Team (Late st Contact Info) Description 09/02/2021 Documentation Only [facility] [address] [place] [address] Bakari Wells MD [address] [place] [address] [place] [phone] Social History Tobacco Use Types Packs/Day Years [...] [facility] Vascular Access Center [address] [place] [address] documented as of this encounter Visit Diagnoses Not on filedocumented in this encounter Care Teams Manager Crisis Relationship Specialty Start Date End Date Steve Nguyen MD [address] [place] PCP - General 04/19/19 documented as of this encounter
--- OUTSIDE RECORDS SUMMARY | 2024-09-14 15:28 | XMS_ITS | Encounter Summary ---
Author Organization [facility] Address [address] [place] [address] Phone Care Team Providers Care Gaming Department Head Name Role Phone Steve Nguyen MD Primary Care Provider [phone] Encounter Details Date Type Department Care Team (Late st Contact Info) Description 09/01/2022 Documentation Only [facility] [address] [place] [address] Sahara Rousseau PA Social History [...] visit [facility] Vascular Access Center [address] [place] [address] documented as of this encounter Visit Diagnoses Not on filedocumented in this encounter Care Teams Gaming Department Head Relationship Specialty Start Date End Date Steve Nguyen MD [place] [facility] [address] [facility] PCP - General 04/19/19 documented as of this encounter
--- OUTSIDE RECORDS SUMMARY | 2024-09-14 15:28 | XMS_ITS | Encounter Summary ---
Author Organization [facility] Address [address] [place] [address] Phone Care Team Providers Care Manager Dialysis Name Role Phone Steve Nguyen MD Primary Care Provider [phone] Encounter Details Date Type Department Care Team (Late st Contact Info) Description 04/22/2022 Documentation Only [facility] [address] [facility] [address] [place] [address] Sahara Rousseau PA Social History [...] visit [facility] Vascular Access Center [address] [place] [address] documented as of this encounter Visit Diagnoses Not on filedocumented in this encounter Care Teams Manager Dialysis Relationship Specialty Start Date End Date Steve Nguyen MD [facility] INTERNAL [place] [address] [place] PCP - General 04/19/19 documented as of this encounter
--- OUTSIDE RECORDS SUMMARY | 2024-09-14 15:28 | XMS_ITS | Encounter Summary ---
Author Organization [facility] Address [address] [place] [address] Phone Care Team Providers Care Flatbed Company Driver Name Role Phone Steve Nguyen MD Primary Care Provider [phone] Encounter Details Date Type Department Care Team (Late st Contact Info) Description 09/22/2022 Documentation Only [facility] [address] [place] [address] Sahara Rousseau PA Social History [...] visit [facility] Vascular Access Center [address] [place] [address] documented as of this encounter Visit Diagnoses Not on filedocumented in this encounter Care Teams Flatbed Company Driver Relationship Specialty Start Date End Date Steve Nguyen MD [facility] INTERNAL [place] [address] [place] PCP - General 04/19/19 documented as of this encounter
--- OUTSIDE RECORDS SUMMARY | 2024-09-14 15:28 | XMS_ITS | Encounter Summary ---
Author Organization [facility] Address [address] [place] [address] Phone Care Team Providers Care Rattle Leak And Squeak Repairer Name Role Phone Steve Nguyen MD Primary Care Provider [phone] Encounter Details Date Type Department Care Team (Late st Contact Info) Description 05/21/2022 Documentation Only [facility] [address] [place] [address] Rory Leahy MD [address] [place] [address] Social History Tobacco Use Types [...] visit [facility] [place], - Vascular Access Center [address] [place] [address] documented as of this encounter Visit Diagnoses Not on filedocumented in this encounter Care Teams Rattle Leak And Squeak Repairer Relationship Specialty Start Date End Date Steve Nguyen MD [facility] INTERNAL [address] [place] PCP - General 04/19/19 documented as of this encounter
--- OUTSIDE RECORDS SUMMARY | 2024-09-14 15:28 | XMS_ITS | Encounter Summary ---
Author Organization [facility] Address [address] [place] [address] Phone Care Team Providers Care Office Copy Selector Name Role Phone Steve Nguyen MD Primary Care Provider [phone] Encounter Details Date Type Department Care Team (Late st Contact Info) Description 06/20/2022 Documentation Only [facility] Of [address] [place] [address] Hermelinda Colunga [address] [place] [address] Social History Tobacco Use Types Packs/Day [...] visit [facility] Vascular Access Center [address] [place] [address] documented as of this encounter Visit Diagnoses Not on filedocumented in this encounter Care Teams Office Copy Selector Relationship Specialty Start Date End Date Steve Nguyen MD [address] [place] PCP - General 04/19/19 documented as of this encounter
--- OUTSIDE RECORDS SUMMARY | 2024-09-14 15:28 | XMS_ITS | Encounter Summary ---
Author Organization [facility] Address [address] [address] Phone Care Team Providers Care Hypoid Gear Generator Name Role Phone Steve Nguyen MD Primary Care Provider [phone] Encounter Details Date Type Department Care Team (Late st Contact Info) Description 09/13/2024 Treatment [facility] [address] [address] Bianca Reyes MD [address] [address] End stage renal disease; Dependence [...] care for end stage renal disease. Attending River Boat Captain: BIANCA REYES MD Dialysis Location: [facility] Schedule: Shift: 1 OVERVIEW Patient is stable. COMMENTS: Note in dialysis placement manager HOME MEDICATIONS Current [facility]patient [...] week Start Date: 05/27/2024 VITAMIN D (ERGOCALCIFEROL) 76043 UNITS PO CAPS Take 1 capsule by [...] (06/23/24) ADDITIONAL COMMENT COMMENTS: Note in dialysis placement manager Signed by: BIANCA REYES MD on 09/13/2024 at 08:25:16 AM documented in this encounter Plan of Treatment Upcoming Encounters Date Type Department Care Team (Late st Contact Info) Description 09/29/2024 2:00 PM EDT Procedure visit [facility] Vascular Access Center [address] [place] [address] documented as of this encounter Visit Diagnoses Diagnosis End stage renal disease Dependence on renal dialysis documented in this encounter Care Teams Hypoid Gear Generator Relationship Specialty Start Date End Date Steve Nguyen MD [facility] INTERNAL [place] [address] [place] PCP - General 04/19/19 documented as of this encounter
--- OUTSIDE RECORDS SUMMARY | 2024-09-14 15:28 | XMS_ITS | Encounter Summary ---
Author Organization [facility] Address [address] [place] [address] Phone Care Team Providers Care Net C Developer Name Role Phone Steve Nguyen MD Primary Care Provider [phone] Reason for Visit * Reason Comments Med Refill Encounter Details Date Type Department Care Team ([facility] Contact Info) Description 04/01/2022 Refill [facility] [address] [facility] [address] [place] [address] Bakari Wells MD [address] [place] [address] [place] [address] Social History Tobacco Use Types [...] Upcoming Encounters Date Type Department Care Team ([facility] Contact Info) Description 09/29/2024 2:00 PM EDT Procedure visit [facility] - Vascular Access Center [address] [place] [address] documented as of this encounter Visit Diagnoses Not on filedocumented in this encounter Care Teams Net C Developer Relationship Specialty Start Date End Date Steve Nguyen MD [facility] INTERNAL [address] [place], [place] PCP - General 04/19/19 documented as of this encounter
--- OUTSIDE RECORDS SUMMARY | 2024-09-14 15:28 | XMS_ITS | Encounter Summary ---
Author Organization [facility] Address [address] [place] [address] Phone Care Team Providers Care Monomer Recovery Supervisor Name Role Phone Steve Nguyen MD Primary Care Provider [phone] Encounter Details Date Type Department Care Team (Late st Contact Info) Description 03/21/2022 Documentation Only [facility] [address] [place] [address] Sahara Rousseau PA Social History [...] visit [facility] Vascular Access Center [address] [place] [address] documented as of this encounter Visit Diagnoses Not on filedocumented in this encounter Care Teams Monomer Recovery Supervisor Relationship Specialty Start Date End Date Steve Nguyen MD [facility] INTERNAL [place] [address] [place] PCP - General 04/19/19 documented as of this encounter
== END 2024-09-14 14:05 | disposition home or self-care (01) ==
PROVIDERS: PCP Internal Medicine
DX: I25.10 Atherosclerotic heart disease of native coronary artery without angina pectoris (principal); Z98.890 Other specified postprocedural states; I42.9 Cardiomyopathy, unspecified; I48.0 Paroxysmal atrial fibrillation; Z95.0 Presence of cardiac pacemaker; I10 Essential (primary) hypertension
CPT/HCPCS: 99214; G2211

== ENCOUNTER → 2024-10-06 12:56 | Outpatient (REF) | payer MEDICARE, SELFPAY ==
--- NOTE | 2024-10-06 13:01 | CA_ITS ---
Transthoracic Echocardiogram Patient (Last, First, Middle): Kael Meyer J Gender: Male Date of : 1955 Age: 69 Procedure Date: 10/06/2024 Procedure Type: Transthoracic Echocardiogram Location: OP Height: 180.34 cm Weight: 102. kg BSA: 2.22 m2 Heart Rate: 68 bpm BP: 112 / 64 mmHg Mathematical Engineer: SB Referring MD: Tavo Cowart ELECTROCARDIOGRAPHIC TECHNICIAN Symptoms: I42.9 - Cardiomyopathy, unspecified Study Quality: Adequate w contrast ECG Rhythm: Paced Conclusions: - The left ventricular systolic function is severely decreased. The visually estimated ejection fraction is between 20-25%. - The inferolateral wall, the basal inferior, basal inferoseptal, and mid anterolateral segments are akinetic. - There is severely decreased right ventricular systolic function. - There is moderate calcification of the aortic valve. - There is moderate mitral annular calcification. - There is mild to moderate tricuspid valve regurgitation. - Moderate pulmonary hypertension is present. Findings Procedure Information Contrast agent, definity, is being given per protocol without apparent complications. Left Ventricle Mildly increased left ventricular cavity size. The left ventricular systolic function is severely decreased. The visually estimated ejection fraction is between 20-25%. There is evidence of regional wall motion abnormalities. Diastolic function is indeterminate on the basis of available data. There is mild septal asymmetric hypertrophy. Wall Motion Rest Echo Findings The inferolateral wall, the basal inferior, basal inferoseptal, and mid anterolateral segments are akinetic. Right Ventricle Moderately increased right ventricular cavity size. There is severely decreased right ventricular systolic function. Atria Mild biatrial enlargement. Aortic Valve There is moderate calcification of the aortic valve. There is no aortic valve stenosis. There is no aortic valve regurgitation. Mitral Valve There is moderate mitral annular calcification. There is trace mitral valve regurgitation. There is no mitral valve stenosis. Pulmonic Valve The pulmonic valve is likely normal. Tricuspid Valve There is mild to moderate tricuspid valve regurgitation. Moderate pulmonary hypertension is present. Great Vessels The asc aorta is normal in size. Venous The inferior vena cava is dilated and collapses less than 50% with inspiration. Pericardium/Pleural There is a small loculated pericardial effusion overlying the right atrium. Prior Study Comparison Changes noted compared to prior study dated: 01/27/2024. RV function appears reduced. Wall motion abnormalities better visualized in the current study. Measurements 2D Linear Measurements IVSd: 1.11 0.6-0.9/0.6-1.0 cm LVIDd: 5.82 3.9-5.3/4.2-5.9 cm LVIDd Index: 2.62 2.4-3.2/2.2-3.1 cm/m2 LVIDs: 5.14 2.0-3.6 cm LVPWd: 0.86 0.7-1.1 cm LA Diam: 4.70 2.7-3.8/3.0-4.0 cm LAIDs Index: 2.12 1.5-2.3 cm/m2 LV Mass: 286.24 67-162/88-224 g LV Mass Index: 128.94 43-95/49-115 g/m2 LVOT Diam: 2.30 3.0+(-)1.3 cm 2D Systolic Function EF 4C: 41.50 >55% EF 2C: 36.50 >55% EF BiP: 38.80 >55% Mitral Valve MV Pk E: 1.35 MV PK A: 0.22 MV Decel Time: 212.00 E/A: 6.00 E'Lateral: 10.40 E'Medial: 3.77 E/E' Med: 35.80 E/E' Lat: 13.00 PHT: 62.00 MVA PHT: 3.55 Decel [place]: 6.37 Aortic Valve AoV Pk Toribio: 1.78 AoV Mn Toribio: 1.16 AoV VTI: 0.38 AoV Pk Grad: 13.00 Aov Mn Grad: 6.00 KARI Cont.VTI: 2.03 LVOT LVOT Pk Toribio: 0.83 LVOT Mn Toribio: 0.56 LVOT VTI: 0.19 LVOT Pk Grad: 3.00 LVOT Mn Grad: 1.00 LVOT Diam: 2.30 LVOT Area: 4.15 Diastolic Function MV Pk E: 1.35 MV Pk A: 0.22 E/A: 6.00 E'Medial: 3.77 E/E' Med: 35.80 E' Laterial: 10.40 E/E' Lat: 13.00 Right Ventricle TAPSE (mm): 9.00 TVS' Toribio: 3.98 Tricuspid Valve TR Pk Toribio: 3.27 TR Pk Grad: 43.00 RA Press: 15.00 RVSP: 58.00 Great Vessels Aorta Sinus of Valsalva: 3.00 2.0-3.5 cm Ao Asc: 2.60 2.1-3.4 cm Pulmonary Valve PV Pk Toribio: 0.77 Peak PV Grad: 2.00 Updated in Other Vendor System with Status of Final Jaylen Cornell MD electronically signed on 10/07/2024 6:11:22 PM with status of Final
--- OUTSIDE RECORDS SUMMARY | 2024-10-06 15:14 | XMS_ITS | Encounter Summary ---
Author Organization [facility] Address [address] [place] [address] Phone Care Team Providers Care Circle Saw Operator Name Role Phone Steve Nguyen MD Primary Care Provider [phone] Encounter Details Date Type Department Care Team (Late st Contact Info) Description 07/31/2022 Documentation Only [facility] [address] [place] [place] [address] Sahara Rousseau PA Social History [...] visit [facility] [address] [place] [address] documented as of this encounter Visit Diagnoses Not on filedocumented in this encounter Care Teams Circle Saw Operator Relationship Specialty Start Date End Date Steve Nguyen MD [facility] [address] [place] PCP - General 04/19/19 documented as of this encounter
--- OUTSIDE RECORDS SUMMARY | 2024-10-06 15:14 | XMS_ITS | Encounter Summary ---
Author Organization [facility] Address [address] [place] [address] Phone Care Team Providers Care Certified Coder Name Role Phone Steve Nguyen MD Primary Care Provider [phone] Reason for Visit * Reason Comments Med Refill Encounter Details Date Type Department Care Team (Late st Contact Info) Description 05/10/2022 Refill [facility] [address] [place] [phone] Bakari Wells MD [address] [place] [address] Social History Tobacco Use Types [...] Procedure visit [facility] Center [address] [place] [address] documented as of this encounter Visit Diagnoses Not on filedocumented in this encounter Care Teams Certified Coder Relationship Specialty Start Date End Date Steve Nguyen MD [facility] [address] [place], [place] PCP - General 04/19/19 documented as of this encounter
--- OUTSIDE RECORDS SUMMARY | 2024-10-06 15:14 | XMS_ITS | Encounter Summary ---
Author Organization [facility] Address [address] [place] [address] Phone Care Team Providers Care Gristmiller Name Role Phone Steve Nguyen MD Primary Care Provider [phone] Encounter Details Date Type Department Care Team (Late st Contact Info) Description 05/21/2022 Documentation Only [facility] [address] [place] [address] Rory Leahy MD [address] [place] [address] Social History Tobacco Use Types [...] visit [facility] [place], - V[facility] Access Center [address] [place] [address] documented as of this encounter Visit Diagnoses Not on filedocumented in this encounter Care Teams Gristmiller Relationship Specialty Start Date End Date Steve Nguyen MD [facility] [address] [place] PCP - General 04/19/19 documented as of this encounter
--- OUTSIDE RECORDS SUMMARY | 2024-10-06 15:14 | XMS_ITS | Encounter Summary ---
Author Organization [facility] Address [address] [place] [address] Phone Care Team Providers Care Mailing Jogger Name Role Phone Steve Nguyen MD Primary Care Provider [phone] Encounter Details Date Type Department Care Team (Late st Contact Info) Description 06/20/2022 Documentation Only [facility] Of [address] [place] [address] Hermelinda Colunga [address] [place] [address] Social History Tobacco Use Types Packs/Day [...] visit [facility] - Vascular Access Center [address] [place] [address] documented as of this encounter Visit Diagnoses Not on filedocumented in this encounter Care Teams Mailing Jogger Relationship Specialty Start Date End Date Steve Nguyen MD [address] [place] PCP - General 04/19/19 documented as of this encounter
--- OUTSIDE RECORDS SUMMARY | 2024-10-06 15:14 | XMS_ITS | Encounter Summary ---
Author Organization [facility] Address [address] [place] [address] Phone Care Team Providers Care Nurse Examiner Name Role Phone Steve Nguyen MD Primary Care Provider [phone] Reason for Visit * Reason Comments Med Refill Encounter Details Date Type Department Care Team ([facility] Contact Info) Description 04/01/2022 Refill [facility] [address] [address] [place] [address] Bakari Wells MD [address] [place] [address] [place] [address] Social History Tobacco Use Types [...] Upcoming Encounters Date Type Department Care Team ([facility] Contact Info) Description 10/28/2024 10:00 AM EDT Procedure visit [facility], - Vascular Access Center [address] [place] [address] documented as of this encounter Visit Diagnoses Not on filedocumented in this encounter Care Teams Nurse Examiner Relationship Specialty Start Date End Date Steve Nguyen MD [facility] [address] [place], [place] PCP - General 04/19/19 documented as of this encounter
--- OUTSIDE RECORDS SUMMARY | 2024-10-06 15:14 | XMS_ITS | Encounter Summary ---
Author Organization [facility] Address [address] [address] Phone Care Team Providers Care Vice President Of Operations Name Role Phone Steve Nguyen MD Primary Care Provider [phone] Encounter Details Date Type Department Care Team (Late st Contact Info) Description 10/01/2024 Treatment [facility] [address] [address] Bianca Reyes MD [address] [address] End stage renal disease; Dependence [...] Dialysis Note - Bianca Reyes MD - 10/01/2024 12:00 AM EDT BASIC NOTE Patient: Dimitrios Meyer : 1955 Note Author: BIANCA REYES MD Service Date: 10/01/2024 This patient was personally seen for a basic visit as part of routine monthly dialysis care for end stage renal disease. Attending Master Ship: BIANCA REYES MD Dialysis Location: [facility] Schedule: Shift: 1 OVERVIEW Patient is stable. COMMENTS: Note in dialysis reservations manager HOME MEDICATIONS Current [facility] Outpatient [...] week Start Date: 05/27/2024 VITAMIN D (ERGOCALCIFEROL) 55411 UNITS PO CAPS Take 1 capsule by mouth Start Date: 05/20/2022 Current [facility] Allergies Allergen: FERUMOXYTOL Reaction: Other (see comments) Severity: High ADEQUACY ASSESSMENT Kt/V, Natural Log 1.44 (09/15/24) 1.21 (08/27/24) 1.17 (08/20/24) UREA REDUCTION RATIO (%) 70 (09/15/24) 65 (08/27/24) 63 (08/20/24) BUN 47 (09/15/24) 37 (08/27/24) 52 (08/20/24) BUN Post Dialysis 14 (09/15/24) 13 (08/27/24) 19 (08/20/24) Creatinine 6.15 (09/15/24) 6.29 (08/18/24) 9.82 (07/21/24) Bicarbonate (CO2) 27 (09/15/24) 26 (08/18/24) 24 (07/21/24) Sodium 132 (09/15/24) 135 (08/18/24) 134 (07/21/24) ANEMIA ASSESSMENT Hgb 10.1 (09/29/24) 10.5 (09/15/24) 10.4 (09/03/24) Iron Saturation (TSat) 35 (09/15/24) 32 (08/18/24) 30 (07/21/24) Ferritin 1,418 (09/15/24) 1,541 (08/18/24) 753 (07/21/24) Iron 86 (09/15/24) 74 (08/18/24) 58 (07/21/24) TIBC 249 (09/15/24) 231 (08/18/24) 192 (07/21/24) MCV 103.3 (09/15/24) 102.3 (08/18/24) 108.2 (07/21/24) Platelets 142 (09/15/24) 135 (08/18/24) 120 (07/21/24) BMM ASSESSMENT Calcium, Adjusted Total 9.7 09/15/24 9.0 08/30/24 9.4 08/18/24 Calcium 9.7 09/15/24 9.0 08/30/24 9.4 08/18/24 Phosphorus, Serum 6.6 09/15/24 7.3 08/30/24 8.5 08/18/24 Ca*PO4 64.0 09/15/24 65.7 08/30/24 79.9 08/18/24 PTH, Intact 253 09/15/24 362 06/23/24 Magnesium 2.0 09/15/24 2.2 08/18/24 2.4 07/21/24 Alkaline Phosphatase 121 09/15/24 162 08/18/24 139 07/21/24 Aluminum 7 06/23/24 5 05/28/24 NUTRITION ASSESSMENT Albumin 4.1 09/15/24 4.1 08/30/24 4.3 08/18/24 Potassium 3.7 09/29/24 4.2 09/24/24 4.4 09/15/24 Hemoglobin A1C 5.1 09/15/24 4.4 06/23/24 ADDITIONAL LABS White Blood Cells 5.3 (09/15/24) 4.9 (08/18/24) 3.5 (07/21/24) Cholesterol 114 (09/15/24) 145 (06/23/24) HDL 43 (09/15/24) 48 (06/23/24) LDL-Calc 56 (09/15/24) 84 (06/23/24) Triglycerides 74 (09/15/24) 64 (06/23/24) Hep B Surface Antibody <4 (06/23/24) <4 (05/28/24) Uric Acid 6.5 (06/23/24) ADDITIONAL COMMENT COMMENTS: Note in dialysis reservations manager Signed by: BIANCA REYES MD on 10/01/2024 at 08:57:43 AM documented in this encounter Plan of Treatment Upcoming Encounters Date Type Department Care Team (Late st Contact Info) Description 10/28/2024 10:00 AM EDT Procedure visit [facility] - Vascular Access Center [address] [place] [address] documented as of this encounter Visit Diagnoses Diagnosis End stage renal disease Dependence on renal dialysis documented in this encounter Care Teams Vice President Of Operations Relationship Specialty Start Date End Date Steve Nguyen MD [facility] [address] [place], [place] PCP - General 04/19/19 documented as of this encounter
--- OUTSIDE RECORDS SUMMARY | 2024-10-06 15:14 | XMS_ITS | Encounter Summary ---
Author Organization [facility] Address [address] [place] [address] Phone Care Team Providers Care Visual Merchandising Director Name Role Phone Steve Nguyen MD Primary Care Provider [phone] Encounter Details Date Type Department Care Team (Late st Contact Info) Description 09/02/2021 Documentation Only [facility] Of [address] [place] [address] Bakari Wells MD [address] [place] [address] [place] [address] Social History Tobacco Use Types Packs/Day Years [...] visit [facility] Access Center [address] [place] [address] documented as of this encounter Visit Diagnoses Not on filedocumented in this encounter Care Teams Visual Merchandising Director Relationship Specialty Start Date End Date Steve Nguyen MD [address] [place] PCP - General 04/19/19 documented as of this encounter
--- OUTSIDE RECORDS SUMMARY | 2024-10-06 15:14 | XMS_ITS | Encounter Summary ---
Author Organization [facility] Address [address] [place] [address] Phone Care Team Providers Care Senior Maintenance Technician Name Role Phone Steve Nguyen MD Primary Care Provider [phone] Encounter Details Date Type Department Care Team (Late st Contact Info) Description 05/22/2022 Documentation Only [facility] Of [address] [place] [address] Hermelinda Colunga [address] [place] [address] Social History Tobacco Use Types Packs/Day [...] [facility] [address] [place] [address] documented as of this encounter Visit Diagnoses Not on filedocumented in this encounter Care Teams Senior Maintenance Technician Relationship Specialty Start Date End Date Steve Nguyen MD [address] [place] PCP - General 04/19/19 documented as of this encounter
--- OUTSIDE RECORDS SUMMARY | 2024-10-06 15:14 | XMS_ITS | Continuity of Care Document ---
Author Organization [facility] Address [address] [place] [address] Phone Care Team Providers Care Skin Care Therapist Name Role Phone Lucio ANDERSEN, Norm Unavailable [...] Diagnoses Date Provider Providers Copied on Encounter [facility], [address] [place] [address], [address] [place] [address], tel:[phone] [facility] No Information 3 Lucio Zheng. [address] [facility], [id number] [place], [place], [address] [place] [address], . [phone] [facility], [address] [place] [address], [address] [place] [address], tel:[phone] [facility] No Information 2 Lucio Zheng. [address] [facility], [id number] [place], [place], [address] [place] [address], . tel:[phone] Ofc/Outpt Visit, Est, Level 3 [facility], [address] [place] [address], [address] [place] [address], tel:[phone] [facility] spinal stenosis (chief complaint) neuropathy (chief complaint) Spinal stenosisPerip heral neuropathy 2 Lucio Zheng. [address] [facility], [id number] [place], [place], [address] [place] [address], . tel:[phone] Referring Provider: Norm Michel i, [address] [place] [address] [id number] [place], [place], [address] . tel:[phone] [facility], [address] [place] [address], [id number], [place] tel:[phone] Int Med [facility] No Information 2 Lucio Zheng. [address], [id number] [place], [id number], [place]. tel:[phone] [facility], [address] [place] [address], [id number], [place] tel:[phone] Neurology No Information 2 Betofloridalma Shaheed. [address], [place], [address]. tel:[phone] Referring Provider: Shaheed Lopez, [address], [place], [address]. tel:[phone] OFFICE/OUTPA TIENT VISIT, [facility], [address] [place] [address], [id number], [place] tel:[phone] Int Med [facility] No Information 2 Lucio Zheng. [address], [id number] [place], [id number], [place]. tel:[phone] Referring Provider: Norm Michel i, [address] [place] [address] [id number] [place], [address] . tel:[phone] [facility], [address] [place] [address], [id number], [place] tel:[phone] [facility] No Information 2 Matias Manjarrez. [address], [place], [id number], [place]. tel:[phone] Referring Provider: Loki Salcedo, [address] [place], [place], [address] . tel:[phone] [facility], [address] [place] [address], [id number], [place] tel:[phone] [facility] No Information 2 Matias Manjarrez. [address], [place], [place], [id number], [place]. tel:[phone] Referring Provider: Loki Salcedo, [address] , [place], [address] . tel:[phone] OFFICE/OUTPA TIENT VISIT, [facility], [address] [place] [address], [id number], [place] tel:[phone] [facility] No Information 2 Lucio Zheng. [address], [id number] [place], [id number], [place]. tel:[phone] Referring Provider: Norm Michel i, [address] [id number], [place], [address] . tel:[phone] [facility], [address] [place] [address], [id number], [place] tel:[phone] [facility] No Information [address] Matias Loki. [address] , [place], [place], [id number], [place]. tel:[phone] Referring Provider: Loki Salcedo, [address], [place], [address] . tel:[phone] OFFICE/OUTPA TIENT VISIT, [facility], [address] [place] [address], [id number], [place] tel:[phone] [facility] No Information 1 Lucio Zheng. [address], [id number] [place], [id number], [place]. tel:[phone] Referring Provider: Norm Michel i, [address] [id number], [place], [address] . tel:[phone] PREV VISIT, EST, AGE 40-64 [facility], [address] [place] [address], [id number], [place] tel:[phone] [facility] No Information Lucio Zheng. [address] [place] [address], [id number] , [place], [place], [id number], . tel:[phone] Referring Provider: Norm Michel i, [address] [place] [address] [id number], [place], [address] . tel:[phone] Family History Family Member Type Diagnosis Age At Onset Father Problem (finding) prostate cancer Payers Payer name Insurance type Covered republican ID Arley perry(s) [facility] [id number] Social History Type Description Quantity Date Captured [...]
--- OUTSIDE RECORDS SUMMARY | 2024-10-06 15:14 | XMS_ITS | Encounter Summary ---
Author Organization [facility] Address [address] [place] [address] Phone Care Team Providers Care Shearing Shed Worker Name Role Phone Steve Nguyen MD Primary Care Provider [phone] Encounter Details Date Type Department Care Team (Late st Contact Info) Description 05/22/2022 Documentation Only [facility] Of [address] [place] [address] Hermelinda Colunga [address] [place] [address] Social History Tobacco Use Types Packs/Day [...] visit [facility] - Vascular Access Center [address] [place] [address] documented as of this encounter Visit Diagnoses Not on filedocumented in this encounter Care Teams Shearing Shed Worker Relationship Specialty Start Date End Date Steve Nguyen MD [address] [place] PCP - General 04/19/19 documented as of this encounter
--- OUTSIDE RECORDS SUMMARY | 2024-10-06 15:14 | XMS_ITS | Encounter Summary ---
Author Organization [facility] Address [address] [place] [address] Phone Care Team Providers Care Media Consultant Outside Sales Name Role Phone Steve Nguyen MD Primary Care Provider [phone] Encounter Details Date Type Department Care Team (Late st Contact Info) Description 05/21/2022 Documentation Only [facility] Of [address] [place] [address] Hermelinda Colunga [address] [place] [address] Social History Tobacco Use Types Packs/Day [...] visit [facility] - Vascular Access Center [address] [place] [address] documented as of this encounter Visit Diagnoses Not on filedocumented in this encounter Care Teams Media Consultant Outside Sales Relationship Specialty Start Date End Date Steve Nguyen MD [address] [place] PCP - General 04/19/19 documented as of this encounter
--- OUTSIDE RECORDS SUMMARY | 2024-10-06 15:14 | XMS_ITS | Encounter Summary ---
Author Organization [facility] Address [address] [place] [address] Phone Care Team Providers Care Inside Sales Lead Name Role Phone Steve Nguyen MD Primary Care Provider [phone] Encounter Details Date Type Department Care Team (Late Contact Info) Description 04/22/2022 Documentation Only [facility] [address] [place] [address] Sahara Rousseau PA Social History [...] visit [facility] - Vascular Access Center [address] [place] [phone] documented as of this encounter Visit Diagnoses Not on filedocumented in this encounter Care Teams Inside Sales Lead Relationship Specialty Start Date End Date Steve Nguyen MD [facility] INTERNAL [place] [address] [place] PCP - General 04/19/19 documented as of this encounter
--- OUTSIDE RECORDS SUMMARY | 2024-10-06 15:14 | XMS_ITS | Encounter Summary ---
Author Organization [facility] Address [address] [place] [address] Phone Care Team Providers Care Gps Field Data Collector Name Role Phone Steve Nguyen MD Primary Care Provider [phone] Encounter Details Date Type Department Care Team (Late st Contact Info) Description 03/24/2022 Documentation Only [facility] [address] [place] [address] Sahara Rousseau PA Social History [...] [facility] - Vascular Access Center [address] [place] [phone] documented as of this encounter Visit Diagnoses Not on filedocumented in this encounter Care Teams Gps Field Data Collector Relationship Specialty Start Date End Date Steve Nguyen MD [facility] INTERNAL [place] [address] [place] PCP - General 04/19/19 documented as of this encounter
--- OUTSIDE RECORDS SUMMARY | 2024-10-06 15:14 | XMS_ITS | Encounter Summary ---
Author Organization [facility] Address [address] [place] [address] Phone Care Team Providers Care Laborer [employer] Name Role Phone Steve Nguyen MD Primary Care Provider [phone] Encounter Details Date Type Department Care Team (Late st Contact Info) Description 03/21/2022 Documentation Only [facility] [address] [place] [address] Sahara Rousseau PA Social History [...] visit [facility] - Vascular Access Center [address] [place] [phone] documented as of this encounter Visit Diagnoses Not on filedocumented in this encounter Care Teams Laborer [employer] Relationship Specialty Start Date End Date Steve Nguyen MD [facility] INTERNAL [place] [address] [place] PCP - General 04/19/19 documented as of this encounter
--- OUTSIDE RECORDS SUMMARY | 2024-10-06 15:14 | XMS_ITS | Encounter Summary ---
Author Organization [facility] Address [address] [place] [address] Phone Care Team Providers Care Medical Billing Representative Name Role Phone Steve Nguyen MD Primary Care Provider [phone] Reason for Visit * Reason Comments Med Refill Encounter Details Date Type Department Care Team (Late Contact Info) Description 04/05/2023 Refill [facility] [address] [place] [address] Bakari Wells MD [address] [place] [address] [place] [phone] Social History Tobacco Use Types Packs/Day Years [...] visit [facility] [place] - Vascular Access Center [address] [place] [address] [place] [phone] documented as of this encounter Visit Diagnoses Not on filedocumented in this encounter Care Teams Medical Billing Representative Relationship Specialty Start Date End Date Steve Nguyen MD [facility] INTERNAL [place] [address] [place] PCP - General 04/19/19 documented as of this encounter
--- OUTSIDE RECORDS SUMMARY | 2024-10-06 15:14 | XMS_ITS | Clinical Summary ---
Author Organization [facility] Address [address] [place] [address] Care Team Providers Care Sap Specialist Name Role Phone Steve Nguyen MD Primary Care Provider Allergies Active Allergy Reactions Criticality Noted Date [...] daily. 0 04/02/2022 Active epoetin gaby (PROCRIT) 00652 UNIT/ML injection Inject 1 mL (20,000 Units [...] age to complete this topic Care Teams Sap Specialist Relationship Specialty Start Date End Date Po, Steve Dawn MD [address] [place] [address] Dr [address] [facility] [place] [address] PCP - General Internal Medicine 06/18/22
--- OUTSIDE RECORDS SUMMARY | 2024-10-06 15:14 | XMS_ITS | Encounter Summary ---
Author Organization [facility] Address [address] [address] Phone Care Team Providers Care Blow Down Helper Name Role Phone Steve Nguyen MD Primary Care Provider [phone] Encounter Details Date Type Department Care Team (Late st Contact Info) Description 10/06/2024 Treatment [facility] [address] [address] Bianca Reyes MD [address] [address] End stage renal disease; Dependence [...] Dialysis Note - Bianca Reyes MD - 10/06/2024 12:00 AM EDT BASIC NOTE Patient: Dimitrios Meyer : 1955 Note Author: BIANCA REYES MD Service Date: 10/06/2024 This patient was personally seen for a basic visit as part of routine monthly dialysis care for end stage renal disease. Attending Preschool Education Director: BIANCA REYES MD Dialysis Location: [facility] Schedule: Shift: 1 OVERVIEW Patient is stable. COMMENTS: Note in dialysis audio/visual manager HOME MEDICATIONS Current [facility] [...] week Start Date: 05/27/2024 VITAMIN D (ERGOCALCIFEROL) 70120 UNITS PO CAPS Take 1 capsule by [...] (06/23/24) ADDITIONAL COMMENT COMMENTS: Note in dialysis audio/visual manager Signed by: BIANCA REYES MD on 10/06/2024 at 02:24:06 PM Transcribed by: BIANCA REYES MD on 10/06/2024 at 02:24:06 PM documented in this encounter Plan of Treatment Upcoming Encounters Date Type Department Care Team (Late st Contact Info) Description 10/28/2024 10:00 AM EDT Procedure visit [facility] - V[facility] Center [address] [place] [address] [place] [address] documented as of this encounter Visit Diagnoses Diagnosis End stage renal disease Dependence on renal dialysis documented in this encounter Care Teams Blow Down Helper Relationship Specialty Start Date End Date Steve Nguyen MD [facility] INTERNAL [place] [address] [place], [place] PCP - General 04/19/19 documented as of this encounter
--- OUTSIDE RECORDS SUMMARY | 2024-10-06 15:14 | XMS_ITS | Encounter Summary ---
Author Organization [facility] Address [address] [place] [address] Phone Care Team Providers Care Behavioral Specialist Name Role Phone Steve Nguyen MD Primary Care Provider [phone] Encounter Details Date Type Department Care Team (Late st Contact Info) Description 09/22/2022 Documentation Only [facility] [address] [place] [address] Sahara Rousseau PA Social History [...] [facility] - Vascular Access Center [address] [place] [phone] documented as of this encounter Visit Diagnoses Not on filedocumented in this encounter Care Teams Behavioral Specialist Relationship Specialty Start Date End Date Steve Nguyen MD [facility] INTERNAL [place] [address] [place] PCP - General 04/19/19 documented as of this encounter
--- OUTSIDE RECORDS SUMMARY | 2024-10-06 15:14 | XMS_ITS | Encounter Summary ---
Author Organization [facility] Address [address] [place] [address] Phone Care Team Providers Care Roll Cleaner Name Role Phone Steve Nguyen MD Primary Care Provider [phone] Encounter Details Date Type Department Care Team (Late st Contact Info) Description 09/01/2022 Documentation Only [facility] [address] [place] [address] Sahara Rousseau PA Social History [...] [facility] V[facility] [address] [place] [address] documented as of this encounter Visit Diagnoses Not on filedocumented in this encounter Care Teams Roll Cleaner Relationship Specialty Start Date End Date Steve Nguyen MD [place] [facility] [address] [facility] PCP - General 04/19/19 documented as of this encounter
--- OUTSIDE RECORDS SUMMARY | 2024-10-06 15:14 | XMS_ITS | Clinical Summary ---
Author Organization [facility], Address [address] [place] [address] Phone Care Team Providers Care Waste Removalist Name Role Phone Steve Nguyen MD Primary Care Provider Allergies Active Allergy Reactions Criticality Noted Date Comments Ferumoxytol Other (see comments) High 04/02/2021 Chest pain, chills Other reaction(s): Other (see comments) Chest pain, chills Medications isosorbide mononitrate (IMDUR) 30 MG 24 hr tablet Take 30 mg by mouth 1 (one) time each day 2 Active Vitamin D, Ergocalciferol, 84880 units capsule Take 1 capsule by mouth [...] tablet 2 4 Active epoetin gaby (EPOGEN,PROCRIT) 63494 UNIT/ML injection Inject 10,000 Units under the [...] Encounters Date Type Department Care Team Description 10/06/2024 Treatment [facility] [address] [phone] Ezequiel Reyes MD End stage renal disease; Dependence on renal dialysis 10/01/2024 Treatment [facility] [address] [phone] Ezequiel Reyes MD End stage renal disease; Dependence on renal dialysis 09/29/2024 11:30 AM EDT Office Visit [facility] [address] [place] [address] [place] [address] Milton Stone MD End stage renal disease (HCC) (Primary Dx); Abscess of skin and/or subcutaneous tissue 09/28/2024 Telephone [facility] [address] [place] [address] [place] [phone] Pamela Cespedes 09/20/2024 Treatment [facility] [address] [phone] Ezequiel Reyes MD End stage renal disease; Dependence on renal dialysis 09/13/2024 Treatment [facility] [address] [address] Ezequiel Reyes MD End stage renal disease; Dependence on renal dialysis 09/06/2024 Treatment [facility] [address] [phone] Ezequiel Reyes MD End stage renal disease; Dependence on renal dialysis 09/01/2024 [facility] [address] [address] Ezequiel Reyes MD End stage renal disease; Dependence on renal dialysis 08/23/2024 [facility] [address] [address] Ezequiel Reyes MD End stage renal disease; Dependence on renal dialysis 08/16/2024 Treatment [facility] [address] [address] Ezequiel Reyes MD End stage renal disease; Dependence on renal dialysis 08/11/2024 Treatment [facility] [address] [address] Ezequiel Reyes MD 08/09/2024 Treatment [facility] [address] [phone] Ezequiel Reyes MD 08/01/2024 Telephone [facility] V[facility] Access [address] [place] [address] Sylvie Daniel post op call 07/30/2024 Treatment [facility] [address] [address] Ezequiel Reyes MD 07/29/2024 11:00 AM EST Procedure visit [facility] Access [address] [place] [address] Milton Stone MD End stage renal disease (HCC) (Primary Dx); Stenosis of other vascular prosthetic devices, implants and grafts, initial encounter (HCC) 07/28/2024 Telephone [facility] [place] [address] [place] [phone] Coy Pamela 07/28/2024 Telephone [facility] [place] [address] [place] [phone] Coy Pamela 07/19/2024 Treatment [facility] [address] [phone] Ezequiel Reyes MD from Last 3 Months Immunizations Immunization Administration Dates Next Due H1N1 Inj 05/28/2016 [...] visit [facility] [place] [address] [place] [address] Health Maintenance Due Date Last Done Comments Hepatitis B Vaccine (1 of 5 - Risk Dialysis 4-dose series) 1975 05/28/2023, 01/22/2023, 12/25/2022, Additional history exists Colorectal Cancer Screening: Annual FOBT 2002 Colorectal Cancer Screening: Colonoscopy 2002 Colorectal Cancer Screening: Sigmoidoscopy 2002 Pneumococcal Vaccine: 50+ Ye ars (3 of 3 - PCV) 01/28/2019 01/28/2018, 12/13/2013, 05/04/2012 Diabetes: Ophthalmology Exam 08/23/2019 Diabetes: Pedal Pulse Checked 08/23/2019 Diabetes: Sensory Foot Exam 08/23/2019 Diabetes: Visual Foot Exam 08/23/2019 Diabetes: Hemoglobin A1C 12/15/2024 04/2 025, 06/23/2024, 08/05/2022, Additional history exists Influenza Vaccine (Season Ended) 2025 03/28/2021, 03/26/2021, 04/28/2019, Additional history exists Pneumococcal Vaccine: Peds ( 0 to 5 Years) and At-Risk Patients (6 to 49 Years) Discontinued 01/28/2018, 12/13/2013, 05/04/2012 Procedures Procedure Name Priority Date/Time Associated Diagnosis Comments HEMOGLOBIN Routine 09/29/2024 3:00 AM EDT LIH (HC) Routine 09/29/2024 3:00 AM EDT POTASSIUM Routine 09/29/2024 3:00 AM EDT LIH (HC) Routine 09/24/2024 3:00 AM EDT POTASSIUM Routine 09/24/2024 3:00 AM EDT COLLECTION DATE (HC) Routine 09/24/2024 3:00 AM EDT HEPATITIS B SURFACE ANTIGEN W/REFL CONFIRM Routine 09/15/2024 3:00 AM EDT HEMOGLOBIN A1C Routine 09/15/2024 3:00 AM EDT FERRITIN Routine 09/15/2024 3:00 AM EDT TRANSFERRIN SATURATION Routine 3:00 AM EDT PTH, INTACT Routine 09/15/2024 3:00 AM EDT PROTEIN, TOTAL, SERUM Routine 09/15/2024 3:00 AM EDT KT/V NATURAL LOG, URR (HC) Routine 09/15/2024 3:00 AM EDT MAGNESIUM Routine 09/15/2024 3:00 AM EDT LIPID PANEL Routine 09/15/2024 3:00 AM EDT ELECTROLYTE PANEL Routine 09/15/2024 3:0 0 AM EDT LIH (HC) Routine 09/15/2024 3:00 AM EDT LACTATE DEHYDROGENASE Routine 09/15/2024 3:00 AM EDT GLUCOSE, RANDOM Routine 09/15/2024 3:00 AM EDT CREATININE, SERUM Routine 09/15/2024 3:0 0 AM EDT BILIRUBIN, TOTAL Routine 09/15/2024 3:00 AM EDT AST Routine 09/15/2024 3:00 AM EDT ALT Routine 09/15/2024 3:00 AM EDT ALKALINE PHOSPHATASE Routine 09/15/2024 3:00 AM EDT CALCIUM PHOSPHORUS PRODUCT, ADJUSTED (HC) Routine 09/15/2024 3:00 AM EDT CBC AND DIFFERENTIAL Routine 09/15/2024 3:00 AM EDT POTASSIUM Routine 09/08/2024 3:00 AM EDT LIH (HC) Routine 09/08/2024 3:00 AM EDT LIH (HC) Routine 09/03/2024 3:00 AM EDT POTASSIUM Routine 09/03/2024 3:00 AM EDT HEMOGLOBIN Routine 09/03/2024 3:00 AM EDT COLLECTION DATE (HC) Routine 09/03/2024 3:00 AM EDT LIH (HC) Routine 08/30/2024 3:00 AM EDT CALCIUM PHOSPHORUS PRODUCT, ADJUSTED (HC) Routine 08/30/2024 3:00 AM EDT LIH (HC) Routine 08/27/2024 3:00 AM EDT COLLECTION DATE (HC) Routine 08/27/2024 3:00 AM EDT KT/V NATURAL LOG, URR (HC) Routine 08/27/2024 3:00 AM EDT LIH (HC) Routine 08/25/2024 3:00 AM EDT POTASSIUM Routine [...] POTASSIUM Routine 08/09/2024 3:00 AM EST LIH () Routine 08/09/2024 3:00 AM EST HEMOGLOBIN Routine 08/04/2024 3:00 AM EST POTASSIUM Routine 08/02/2024 3:00 AM EST LIH () Routine 08/02/2024 3:00 AM EST COLLECTION DATE () Routine 08/02/2024 3:00 AM EST TRANSFERRIN SATURATION Routine 3:00 AM EST LIH () Routine 07/21/2024 3:00 AM EST MAGNESIUM Routine [...] 07/21/2024 3:00 AM EST POTASSIUM Routine 07/21/2024 from Last 3 Months Results * LIH (09/29/2024 3:00 AM EDT) Only the most recent of13 resultswithin the time period is included. Lipemia Normal Normal [facility] Icterus Normal Normal [facility] Hemolysis Normal Normal [facility] 09/29/2024 3:00 AM EDT 09/30/2024 12:22 PM EDT us Ezequiel Reyes MD LAB HISTORICA [id number] RESULTS Final Result [facility] [address] [place] [address] * (ABNORMAL) Hemoglobin (09/29/2024 3:00 AM EDT) Only the most recent of3 resultswithin the time period is included. Hgb 10.1(L) 13.7 - 17.5 g/dL [facility] Hemoglobin x 3 30.3(L) 41.1 - 52.5 g/dL [facility] 09/29/2024 3:00 AM EDT 09/30/2024 12:54 PM EDT us Ezequiel Reyes MD LAB BLOOD ORDERABLES Final Result Performing Organization Address City/[facility] Co de Phone Number [facility] [address] [place] [address] * Potassium (09/29/2024 3:00 AM EDT) Only the most recent of8 resultswithin the time period is included. Potassium 3.7 3.4 - 5.0 mEq/L [facility] 09/29/2024 3:00 AM EDT 09/30/2024 12:22 PM EDT Ezequiel Reyes MD LAB BLOOD ORDERABLES Final Result Performing Organization Address [facility] de Phone Number [facility] [address] [place] [address] * Collection Date (09/24/2024 3:00 AM EDT) Only the most recent of5 resultswithin the time period is included. Collection Date See Comment [facility] Comment: Patient sample received may exceed specimen stability, based on the collection date electronically provided. ??When reviewing patient results, verify collection information and consider specimen stability before acting on any critical or panic results. 09/24/2024 3:00 AM EDT Ezequiel Reyes MD LAB HISTORICA [id number] RESULTS Final Result Performing Organization Address [facility] de Phone Number [facility] [address] [place] [address] * (ABNORMAL) Kt/V Natural Log, URR (09/15/2024 3:00 AM EDT) Only the most recent of5 resultswithin the time period is included. BUN 47(H) 7 - 25 mg/dL [facility] Treatment Time 246 min [facility] Pre-Weight, lb 105.7 kg [facility] Post-Weight, lb 102.0 kg [facility] Ultrafiltration Rate 9 <=13 mL/kg/hr [facility] Comment: Recommend achieving Ultrafiltration Rate (UFR) <=10 mL/kg/hr References: Maria M TAFOYA et al. Kidney Int. 2010; 79(2):250-257 BUN Post Dialysis 14 7 - 25 mg/dL [facility] UREA REDUCTION RATIO (%) 70 >=65 % [facility] Kt/V Natural Log 1.44 >=1.2 [facility] 09/15/2024 3:00 AM EDT 09/17/2024 1:30 PM EDT Ezequiel Reyes MD LAB HISTORICA [id number] RESULTS Final Result Performing Organization Address [facility] Co de Phone Number [facility] [address] [place] [address] * (ABNORMAL) Calcium Phosphorus Product, Adjusted (09/15/2024 3:00 AM EDT) Only the most recent of4 resultswithin the time period is included. Albumin 4.1 3.6 - 5.4 g/dL [facility] Calcium 9.7 8.6 - 10.3 mg/dL [facility] Phosphorus, Serum 6.6(H) 2.5 - 5.0 mg/dL [facility] Ca*PO4 64.0(A) <55.0 mg2/dL2 [facility] Calcium, Adjusted Total 9.7 8.6 - 10.3 mg/dL [facility] CA*PO4 CORRCTD 64.0(A) <55.0 mg2/dL2 [facility] 09/15/2024 3:00 AM EDT 09/17/2024 1:30 PM EDT us Ezequiel Reyes MD LAB HISTORICA [id number] RESULTS Final Result Performing Organization Address [facility] Co de Phone Number [facility] [address] [place] [address] * Hepatitis B Surface Ag w/Reflex Confirmation (09/15/2024 3:00 AM EDT) Only the most recent of3 resultswithin the time period is included. [facility] Hep B Surface Antigen Negative Negative [facility] 09/15/2024 3:00 AM EDT 09/17/2024 1:30 PM EDT Ezequiel Reyes MD LAB BLOOD ORDERABLES Final Result Performing Organization Address City/[facility] Co de Phone Number [facility] [address] [place] [address] * (ABNORMAL) TSAT (09/15/2024 3:00 AM EDT) Only the most recent of3 resultswithin the time period is included. [facility] Iron 86 65 - 175 ug/dL [facility] Transferrin 178(L) 215 - 365 mg/dL [facility] TIBC 249 211 - 406 ug/dL [facility] Iron Saturation (TSat) 35 22 - 52 % [facility] 09/15/2024 3:00 AM EDT 09/17/2024 1:30 PM EDT Ezequiel Reyes MD LAB BLOOD ORDERABLES Final Result Performing Organization Address [facility] Co de Phone Number [facility] [address] [place] [address] * (ABNORMAL) CBC and Differential (09/15/2024 3:00 AM EDT) Only the most recent of3 resultswithin the time period is included. [facility] DIFFERENTIAL MANUAL, 2 Not Indicated [facility] White Blood Cells 5.3 4.2 - 9.1 K/uL [facility] RBC 3.01(L) 4.63 - 6.08 M/uL [facility] Hgb 10.5(L) 13.7 - 17.5 g/dL [facility] Hemoglobin x 3 31.5(L) 41.1 - 52.5 g/dL [facility] Hematocrit 31.1(L) 40.1 - 51.0 % [facility] MCV 103.3(H) 79.0 - 92.2 fL [facility] MCH 34.9(H) 25.7 - 32.2 pg [facility] MCHC 33.8 32.3 - 36.5 g/dL [facility] Platelets 142(L) 163 - 337 K/uL [facility] RDW 14.2 11.6 - 14.4 % [facility] Neutrophils Relative 71.4(H) 34.0 - 67.9 % [facility] Lymphocytes Relative 15.5(L) 21.8 - 53.1 % [facility] Monocytes 11.0 5.3 - 12.2 % [facility] Eosinophils Relative 0.6(L) 0.8 - 7.0 % [facility] Basophils Relative 1.1 0.2 - 1.2 % [facility] Immature Granulocytes 0.4 0.0 - 1.0 % [facility] 09/15/2024 3:00 AM EDT 09/17/2024 1:27 PM EDT Ezequiel Reyes MD LAB BLOOD ORDERABLES Final Result Performing Organization Address City/[facility]/ZIP Co de Phone Number [facility] [address] [place] [address] * ALT (09/15/2024 3:00 AM EDT) Only the most recent of3 resultswithin the time period is included. ALT (SGPT) 13 10 - 49 U/L [facility] 09/15/2024 3:00 AM EDT 09/17/2024 1:30 PM EDT Ezequiel Reyes MD LAB BLOOD ORDERABLES Final Result Performing Organization Address City/[facility] Co de Phone Number [facility] [address] [place] [address] * AST (09/15/2024 3:00 AM EDT) Only the most recent of3 resultswithin the time period is included. AST (SGOT) 13 <34 U/L [facility] 09/15/2024 3:00 AM EDT 09/17/2024 1:30 PM EDT Ezequiel Reyes MD LAB BLOOD ORDERABLES Final Result Performing Organization Address City/[facility] Co de Phone Number [facility] [address] [place] [address] * Protein, total (09/15/2024 3:00 AM EDT) Only the most recent of3 resultswithin the time period is included. Total Protein 6.8 6.4 - 8.9 g/dL [facility] 09/15/2024 3:00 AM EDT 09/17/2024 1:30 PM EDT Ezequiel Reyes MD LAB BLOOD ORDERABLES Final Result Performing Organization Address [facility] de Phone Number [facility] [address] [place] [address] * (ABNORMAL) Alkaline phosphatase (09/15/2024 3:00 AM EDT) Only the most recent of3 resultswithin the time period is included. Alkaline Phosphatase 121(H) 46 - 116 U/L [facility] 09/15/2024 3:00 AM EDT 09/17/2024 1:30 PM EDT Ezequiel Reyes MD LAB BLOOD ORDERABLES Final Result Performing Organization Address [facility] de Phone Number [facility] [address] [place] [address] * PTH, Intact (09/15/2024 3:00 AM EDT) PTH, Intact 253 160 - 721 pg/mL [facility] Comment: Suggested (KDIGO) ESRD maintenance range is two to nine times the upper normal limit (80.1 pg/mL) for the laboratory. 09/15/2024 3:00 AM EDT 09/17/2024 1:30 PM EDT us Ezequiel Reyes MD LAB BLOOD ORDERABLES Final Result Performing Organization Address City/[facility]/ZIP Co de Phone Number [facility] [address] [place] [address] * Magnesium (09/15/2024 3:00 AM EDT) Only the most recent of3 resultswithin the time period is included. Magnesium 2.0 1.9 - 2.7 mg/dL [facility] 09/15/2024 3:00 AM EDT 09/17/2024 1:30 PM EDT Ezequiel Reyes MD LAB BLOOD ORDERABLES Final Result Performing Organization Address [facility] de Phone Number [facility] [address] [place] [address] * (ABNORMAL) Lactate dehydrogenase (09/15/2024 3:00 AM EDT) Only the most recent of3 resultswithin the time period is included. LDH 362(H) 120 - 246 U/L [facility] 09/15/2024 3:00 AM EDT 09/17/2024 1:30 PM EDT Ezequiel Reyes MD LAB BLOOD ORDERABLES Final Result Performing Organization Address [facility] de Phone Number [facility] [address] [place] [address] * Hemoglobin A1c (09/15/2024 3:00 AM EDT) Hemoglobin A1C 5.1 <5.7 % [facility] Comment: Methodology: Enzymatic HbA1c (NGSP %) ?Suggested Diagnosis >6.4% ? Diabetic 5.7-6.4% ?Pre-Diabetic <5.7% ? Non-Diabetic Diabetic Glucose Control Evaluation: Therapeutic action suggested at >8.0% ADA recommends a glycemic goal of <7.0% 09/15/2024 3:00 AM EDT 09/17/2024 1:27 PM EDT Ezequiel Reyes MD LAB BLOOD ORDERABLES Final Result Performing Organization Address City/[facility] Co de Phone Number [facility] [address] [place] [address] * (ABNORMAL) Glucose, random (09/15/2024 3:00 AM EDT) Only the most recent of3 resultswithin the time period is included. Glucose 73(L) 74 - 109 mg/dL [facility] 09/15/2024 3:00 AM EDT 09/17/2024 1:30 PM EDT Ezequiel Reyes MD LAB BLOOD ORDERABLES Final Result Performing Organization Address [facility] de Phone Number [facility] [address] [place] [address] * (ABNORMAL) Ferritin (09/15/2024 3:00 AM EDT) Only the most recent of3 resultswithin the time period is included. Ferritin 1,418(H) 22 - 322 ng/mL [facility] 09/15/2024 3:00 AM EDT 09/17/2024 1:30 PM EDT Ezequiel Reyes MD LAB BLOOD ORDERABLES Final Result Performing Organization Address [facility] de Phone Number [facility] [address] [place] [address] * (ABNORMAL) Creatinine, serum (09/15/2024 3:00 AM EDT) Only the most recent of3 resultswithin the time period is included. Creatinine 6.15(H) 0.70 - 1.30 mg/dL [facility] 09/15/2024 3:00 AM EDT 09/17/2024 1:30 PM EDT Ezequiel Reyes MD LAB BLOOD ORDERABLES Final Result Performing Organization Address [facility] de Phone Number [facility] [address] [place] [address] * Bilirubin, total (09/15/2024 3:00 AM EDT) Only the most recent of3 resultswithin the time period is included. Total Bilirubin 0.9 0.3 - 1.2 mg/dL [facility] 09/15/2024 3:00 AM EDT 09/17/2024 1:30 PM EDT Ezequiel Reyes MD LAB BLOOD ORDERABLES Final Result Performing Organization Address [facility] de Phone Number [facility] [address] [place] [address] * (ABNORMAL) Lipid panel (09/15/2024 3:00 AM EDT) Cholesterol 114 <200 mg/dL [facility] Comment: Optimal: ?<200 Borderline: ? 200-239 Higher Risk: ?>239 Triglycerides 74 <150 mg/dL [facility] Comment: Optimal: ?<150 Borderline High: ??150-199 High: ? 200-499 Very High: ?>499 HDL 43(A) >59 mg/dL [facility] Comment: Desirable: ?>59 Higher Risk: ?<40 LDL-Calc 56 <100 mg/dL [facility] Comment: Optimal: ?<100 Above Optimal: ?100-129 Borderline High: ??130-159 High: ? 160-189 Very High: ?>189 VLDL Cholesterol Ravi 15 <30 mg/dL [facility] Comment: Optimal: ?<30 Borderline High: ??30-39 High: ? 40-99 Very High: ?>99 Chol/HDL Ratio 2.7 <3.3 [facility] Comment: Optimal: ?<3.3 Higher Risk: ?>6.2 09/15/2024 3:00 AM EDT 09/17/2024 1:30 PM EDT Ezequiel Reyes MD LAB BLOOD ORDERABLES Final Result Performing Organization Address [facility] de Phone Number [facility] [address] [place] [address] * (ABNORMAL) Electrolyte panel (09/15/2024 3:00 AM EDT) Only the most recent of3 resultswithin the time period is included. Sodium 132(L) 136 - 145 mEq/L [facility] Potassium 4.4 3.4 - 5.0 mEq/L [facility] Chloride 96(L) 98 - 107 mEq/L [facility] Bicarbonate (CO2) 27 21 - 31 mEq/L [facility] Anion Gap 9 3 - 14 mEq/L [facility] 09/15/2024 3:00 AM EDT 09/17/2024 1:30 PM EDT Ezequiel Reyes MD LAB BLOOD ORDERABLES Final Result Performing Organization Address [facility] de Phone Number [facility] [address] [place] [address] from Last 3 Months Insurance Medicare [facility] Medicare Care Teams Waste Removalist Relationship Specialty Start Date End Date Steve Nguyen MD [address] [place] PCP - General 04/19/19
--- OUTSIDE RECORDS SUMMARY | 2024-10-06 15:14 | XMS_ITS | Encounter Summary ---
Author Organization [facility] Address [address] [place] [address] Phone Care Team Providers Care Fire Medic Name Role Phone Steve Nguyen MD Primary Care Provider [phone] Encounter Details Date Type Department Care Team (Late st Contact Info) Description 05/23/2021 Documentation Only [facility] [address] [place] [phone] Bakari Wells MD [address] [place] [address] [place] [phone] Social History Tobacco Use Types Packs/Day Years [...] visit [facility] [address] [place] [phone] documented as of this encounter Visit Diagnoses Not on filedocumented in this encounter Care Teams Fire Medic Relationship Specialty Start Date End Date Steve Nguyen MD [address] [place] PCP - General 04/19/19 documented as of this encounter
--- OUTSIDE RECORDS SUMMARY | 2024-10-06 15:14 | XMS_ITS | Encounter Summary ---
Author Organization [facility] Address [address] [place] [address] Phone Care Team Providers Care Carpenter Maintenance Name Role Phone Steve Nguyen MD Primary Care Provider [phone] Encounter Details Date Type Department Care Team (Late st Contact Info) Description 06/25/2022 Documentation Only [facility] [address] [place] [address] [place] [address] [place] [phone] Social History Tobacco Use Types Packs/Day [...] visit [facility] - [facility] Center [address] [place] [phone] documented as of this encounter Visit Diagnoses Not on filedocumented in this encounter Care Teams Carpenter Maintenance Relationship Specialty Start Date End Date Steve Nguyen MD [address] [place] PCP - General 04/19/19 documented as of this encounter
== END ==
LOC: HO.CARD 12:56
PROVIDERS: PCP Internal Medicine
DX: I42.9 Cardiomyopathy, unspecified (principal)
CPT/HCPCS: 93306; Q9957

== ENCOUNTER → 2024-10-06 13:01 | Outpatient (BNV) | payer MEDICARE, SELFPAY | PROVIDERS: PCP Internal Medicine; Visit Provider Internal Medicine | DX: I42.2 Other hypertrophic cardiomyopathy (principal); I35.8 Other nonrheumatic aortic valve disorders; I34.81 Nonrheumatic mitral (valve) annulus calcification; I36.1 Nonrheumatic tricuspid (valve) insufficiency | CPT/HCPCS: 93306 ==

== ENCOUNTER → 2024-11-12 23:59 | Outpatient (BNV) | payer MEDICARE, SELFPAY ==
--- NOTE | 2024-12-08 21:51 | A.OFFVIS_ITS ---
Intake Visit Reasons: Remote device check- [facility] Allergies No Known Allergies (No Known Allergies*) Allergy (Verified 12/08/24 14:13) [facility] Medical History ESRD (end stage renal disease) Blood clot in arm (~04/11/24) CKD (chronic kidney disease) stage 4, GFR 15-29 ml/min Obstructive sleep apnea HTN (hypertension) Dermatitis associated with moisture from stool incontinence Clostridioides difficile diarrhea Urinary retention with incomplete bladder emptying Pacemaker Pancytopenia Incomplete emptying of bladder due to benign prostatic hyperplasia Acute kidney injury superimposed on chronic kidney disease Fistula Paroxysmal A-fib Diastolic heart failure Pulmonary hypertension Depression, major Afib Bradycardia Scrotal edema Anasarca Cirrhosis Lymphedema Type 2 diabetes mellitus with hyperglycemia Osteoarthritis Peripheral neuropathy BPH (benign prostatic hyperplasia) Venous stasis dermatitis Obesity (BMI 30-39.9) Hypercholesterolemia Peripheral vascular disease Pulmonary hypertension Essential thrombocytopenia Anemia COPD (chronic obstructive pulmonary disease) Diabetic retinopathy Chronic kidney disease Lumbar degenerative disc disease High cholesterol Edema Gout Surgical History S/P cardiac catheterization Hx of cardiac pacemaker History of bowel diversion surgery History of gastric surgery H/O prior ablation treatment History of carpal tunnel release History of bilateral cataract extraction History of tonsillectomy Family History Father Prostate cancer CVD (cardiovascular disease) Mother Hemochromatosis Brother Motor vehicle accident Sister CAD (coronary artery disease) Maternal Grandfather Myocardial infarction Social History Household Members: Spouse Housing: House Do you presently have visiting nurse or other home services: No Alcohol intake: never Patient Tobacco Use Status: Former Tobacco user Tobacco use type: Cigarette e-Cigarette/Vaping Use: Former Use Second Hand Smoke Exposure: Yes Advance Directives Date on File: 11/06/22 service: No Current occupational status: retired Cognitive needs: Yes (Cane) Hearing needs: Yes Vision needs: Yes (Glasses) Office Procedures Cardiac Device Check Cardiac Device Check Details: 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 [id number] Cardiac Device Interrogation, pacemaker Procedure code (CPT) selection complete Assessment & Plan Assessment & Plan (1) Cardiomyopathy: Code(s): I42.9 - Cardiomyopathy, unspecified Category: Medical Qualifiers: Cardiomyopathy type: unspecified Qualified Code(s): I42.9 - Cardiomyopathy, unspecified Plan: Coding Level of Care Code Procedure Only Diagnoses Cardiomyopathy, unspecified type I42.9 Cardiomyopathy type: unspecified CPT Codes Cardiac Device Check - Cardiac Device 12: [id number] Cardiac Device Interrogation, pacemaker ([id number])
== END ==
PROVIDERS: PCP Internal Medicine; Visit Provider Internal Medicine Cardiovascular Disease
DX: I42.9 Cardiomyopathy, unspecified (principal); Z95.0 Presence of cardiac pacemaker
CPT/HCPCS: 93294

== ENCOUNTER 2024-11-24 10:43 | Inpatient (IN) | payer MEDICARE, SELFPAY ==
--- NOTE | ~2024-11-24 | US_ITS ---
EXAMINATION: Noninvasive assessment of the left lower extremity. CLINICAL INFORMATION: Ankle wound. TECHNIQUE: Duplex Doppler techniques with waveform analysis and measurement of velocities in the left common femoral, profunda femoris, superficial femoral, popliteal and tibial arteries were performed. The study was performed only at rest. COMPARISON: None FINDINGS: DIRECT DUPLEX DOPPLER FINDINGS: LEFT LEG: Common femoral artery: 196 cm/s, phasicity: Monophasic. Profunda femoris artery: 192 cm/s, phasicity: Biphasic. Superficial femoral artery (proximal): 105 cm/s, phasicity: Monophasic. Superficial femoral artery (mid): 90 cm/s, phasicity: Monophasic. Superficial femoral artery (distal): 114 cm/s, phasicity: Monophasic. Popliteal artery: 141 cm/s, phasicity: Monophasic. Posterior tibial artery: 60 cm/s, phasicity: Monophasic. Peroneal artery: 91 cm/s, phasicity: Monophasic. Anterior tibial artery: Not interrogated. Dorsalis pedis artery: 29 cm/s, phasicity: Biphasic. US/US arterial duplex LE LT IMPRESSION: Severe inflow disease throughout the interrogated arteries. Electronically signed by: Fito Rodriges MD 11/24/2024 01:13 PM EDT
--- NOTE | ~2024-11-24 | XR_ITS ---
CLINICAL HISTORY: Fall, left leg shorter + external rotation Pelvis and left hip. Findings: Artifact mildly limits the study. No definite acute fractures are seen. There is no dislocation. Impression: No definite acute fractures. This document has been electronically signed by: Dave Renner MD on 11/24/2024 17:27:26
--- NOTE | ~2024-11-24 | US_ITS ---
EXAMINATION: US TRIPLEX LOWER EXTREMITY, LEFT CLINICAL INFORMATION: Skin changes. COMPARISON: None available. TECHNIQUE: Color-flow triplex imaging with spectral analysis and compression Doppler were performed on the left lower extremity. FINDINGS: Respiratory variation, normal compression and augmented flow are present throughout the interrogated common femoral vein, superficial femoral vein, profunda femoral vein, popliteal vein and midcalf peroneal and posterior tibial venous segments. There is no Olvera's cyst. US/US venous duplex LE IMPRESSION: No acute deep venous thrombosis interrogated veins, left lower extremity. Negative for DVT. Electronically signed by: Fito Rodriges MD 11/24/2024 01:07 PM EDT
--- NOTE | ~2024-11-24 | NM_ITS ---
EXAMINATION: Three-phase bone scan. CLINICAL INDICATION: Diabetes. Question left fibular osteomyelitis. TECHNIQUE: Following intravenous administration of 35 mCi of technetium 99m MDP, whole-body three-phase bone scan of lower leg was obtained. The first phase/perfusion study was interrupted due to technical errors. FINDINGS: On visualized perfusion images there is somewhat normal flow seen in left lower leg. On immediate static images there is normal blood pool in both lower legs, ankle and the foot region. On delayed images there is mild increased activity seen along the lateral malleolus soft tissues likely related to skin ulcer. No activity seen within the bone to suspect any osteomyelitis. Also visualized is mild increased activity along the left lateral hindfoot. Mild focal activity seen in the right midfoot slightly degenerative arthritic changes. Bilateral knee joints are unremarkable. NM/NM bone 3 phase IMPRESSION: There is mild increased activity in the soft tissues of lateral malleolus likely related to ulcer. No bone activity seen to suspect osteomyelitis. Nonspecific activity seen along the left lateral mid foot and small foci of activity in the right midfoot likely related to degenerative arthritis. Electronically signed by: Jayjay Sparks MD 11/25/2024 04:17 PM EDT
--- NOTE | ~2024-11-24 | XR_ITS ---
EXAMINATION: XR ANKLE, LEFT CLINICAL INFORMATION: Soft tissue wound COMPARISON: None available. TECHNIQUE: AP, lateral, and mortise views of the left ankle. FINDINGS: Extensive arterial vascular opacifications are present in the lower leg extending into the midfoot. There is severe fatty replacement of the lower leg musculature. Degenerative cystic change is present in the medial and lateral malleoli. Mixed sclerotic and lytic lesion is noted projecting over the posterior subtalar joint, likely degenerative cystic change. Inferior fibular cortex is indistinct. XR/XR ankle LT min 3V IMPRESSION: Inferior fibular cortex is indistinct raising concern for osteomyelitis. Cystic changes in the medial and lateral menisci are probably chronic and degenerative. Extensive peripheral arterial disease. Electronically signed by: Rod Munoz MD 11/24/2024 01:53 PM EDT
[2024-11-24 10:46] VITALS: BP 131/68; PULSE 92; RESP 20; TEMP 36.3; O2SAT 95; BMI 31.9
--- NOTE | 2024-11-24 11:10 | ED.WOUNDLAC ---
HPI - Wound/Laceration General Chief Complaint: Wound/Laceration Stated Complaint: wound check r ankle Time Seen by Provider: 11/24/24 11:04 Source: patient, RN notes reviewed and old records reviewed Mode of arrival: ambulatory History of Present Illness ED Provider: Cris Cheng PA-C HPI narrative: 69-year-old male with a past medical history of CKD on HD (T//Thu), HTN, pacemaker, proximal AFib on Eliquis, CHF, cirrhosis, anasarca, lymphedema, diabetes, COPD, HLD, presenting to the ED complaining of painful left ankle wound x months. States saw wound care a few months ago, has not been on antibiotics x months. Last received full dialysis [facility] [facility] [facility]. Denies fever, chills, drainage from area, injury, SOB/CP Related Data Home Medications ?Medication ?Instructions ?Recorded ?Confirmed albuterol sulfate 90 mcg/actuation 2 puff inhalation Q6H PRN 07/05/20 09/14/24 aerosol inhaler (ProAir HFA) Shortness Of Breath Or Wheezing polyethylene glycol 3350 17 gram 17 g PO DAILY PRN Constipation 09/24/22 09/14/24 oral powder packet (Miralax) ketoconazole 2 % topical cream appl topical DAILY 02/27/23 09/14/24 sevelamer carbonate 800 mg tablet mg PO 04/08/23 09/14/24 ergocalciferol (vitamin D2) 50 mcg 50 mcg PO DAILY 08/14/23 09/14/24 (2,000 unit) capsule midodrine 5 mg tablet 5 mg PO DAILY 08/14/23 09/14/24 Previous Rx's ?Medication ?Instructions ?Recorded kylah.stocking,knee,reg,xlrg #12 ea 11/01/20 compr.stocking,thigh,reg,x-lrg #12 ea 05/31/21 Juxta Lite Compression wraps - #2 ea 07/02/21 Adjustable -for chronic ulcers with open wounds bilat lower extremities APAP 5-15 cm H20 humidified AIR #1 ea 09/06/21 Anoro Ellipta 62.5 mcg-25 1 ea inhalation DAILY #60 ea 07/07/22 mcg/actuation powder for inhalation (umeclidinium-vilanterol) blood sugar diagnostic (FreeStyle #200 ea 10/02/22 Lite Strips) blood-glucose meter (FreeStyle #1 ea 10/02/22 Lite Meter kit) lancets 28 gauge (FreeStyle #200 ea 10/02/22 Lancets) amlodipine 5 mg tablet 5 mg PO DAILY #90 tabs 10/30/23 tramadol 50 mg tablet 50 mg PO BEDTIME #30 tabs 04/15/24 metoprolol tartrate 25 mg tablet 25 mg PO BID #180 tabs 04/29/24 hydroxychloroquine 200 mg tablet 200 mg PO Q OTHER DAY #30 tabs 05/27/24 clopidogrel 75 mg tablet 75 mg PO DAILY #120 tabs 06/20/24 apixaban 2.5 mg tablet 2.5 mg PO BID #60 tabs 08/18/24 pravastatin 20 mg tablet 20 mg PO DAILY #90 tabs 08/18/24 Allergies Allergy/AdvReac Type Severity Reaction Status Date / Time No Known Allergies Allergy Verified 11/24/24 10:47 [No Known Allergies*] Review of Systems Review of Systems: Yes all other systems are reviewed and are negative Constitutional: Constitutional: Reports as per [facility] Past Medical History Attestation statement: The following information was validated with the patient. Source: old records reviewed Medical History Blood clot in arm (~04/11/24) CKD (chronic kidney disease) stage 4, GFR 15-29 ml/min Obstructive sleep apnea HTN (hypertension) Dermatitis associated with moisture from stool incontinence Clostridioides difficile diarrhea Urinary retention with incomplete bladder emptying Pacemaker Pancytopenia Incomplete emptying of bladder due to benign prostatic hyperplasia Acute kidney injury superimposed on chronic kidney disease Fistula Paroxysmal A-fib Diastolic heart failure Pulmonary hypertension Depression, major Afib Bradycardia Scrotal edema Anasarca Cirrhosis Lymphedema Type 2 diabetes mellitus with hyperglycemia Osteoarthritis Peripheral neuropathy BPH (benign prostatic hyperplasia) Venous stasis dermatitis Obesity (BMI 30-39.9) Hypercholesterolemia Peripheral vascular disease Pulmonary hypertension Essential thrombocytopenia Anemia COPD (chronic obstructive pulmonary disease) Diabetic retinopathy Chronic kidney disease Lumbar degenerative disc disease High cholesterol Edema Gout Surgical History S/P cardiac catheterization Hx of cardiac pacemaker History of bowel diversion surgery History of gastric surgery H/O prior ablation treatment History of carpal tunnel release History of bilateral cataract extraction History of tonsillectomy Family History Family History Father Prostate cancer CVD (cardiovascular disease) Mother Hemochromatosis Brother Motor vehicle accident Sister CAD (coronary artery disease) Maternal Grandfather Myocardial infarction Social History Social History Household Members: Spouse Housing: House Do you presently have visiting nurse or other home services: Yes Alcohol intake: never Patient Tobacco Use Status: Former Tobacco user Tobacco use type: Cigarette e-Cigarette/Vaping Use: Former Use Second Hand Smoke Exposure: Yes Advance Directives: Yes Advance Directives on File: Yes Advance Directives Date on File: 11/06/22 service: No Current occupational status: retired Cognitive needs: Yes Hearing needs: Yes Vision needs: Yes Physical Exam Vital Signs: Vital Signs: Last Vital Signs Temp 98.0 F 11/24/24 12:00 Pulse 78 11/24/24 12:00 Resp 13 11/24/24 12:00 BP 134/78 11/24/24 12:00 Pulse Ox 98 11/24/24 12:00 O2 Del Method Nasal Cannula 11/24/24 12:00 O2 Flow Rate 4 11/24/24 12:00 BMI result Body Mass Index 31.9 Const: General: cooperative, healthy appearing and no acute distress Orientation/consciousness: patient oriented x3 Limitations: no limitations HEENT: Head: Yes normal to inspection and Yes atraumatic Ears: hearing grossly normal bilaterally General nose exam: Normal external nose present Face and sinus: Yes normal facial exam Eyes: General: appearance normal, both eyes and all related structures EOM: EOMs intact bilaterally Neck: Neck: Yes normal visual inspection and Yes no meningeal signs Resp: Effort & Inspection: normal respiratory effort and no respiratory distress Cardio: Rate: regular rate Skin: Other: Please refer to images above. Bilateral LE chronic skin changes with chronic appearing wound to left lateral ankle. No surrounding erythema/warmth. Nontender to palpation. No fluctuance/induration. No active drainage. No crepitus. Lower extremity pulses dopplerable Rashes: no rashes Neuro: General: patient oriented x3, tone normal and no meningeal signs Cranial nerves: Yes CN's II-XII intact bilaterally Gait exam (Neuro): Normal gait present Extrem: General: Yes normal to inspection Course Course Course Narrative: -chronic leukopenia. H&H at patient's baseline. Potassium mildly low at 3.2 > p.o. repletion ordered -chronic CKD, patient had dialysis today -glucose 68 > patient is tolerating p.o. -BNP elevated, chronically, likely from dialysis. No evidence of fluid overload 1356--US arterial duplex LE LT IMPRESSION: Severe inflow disease throughout the interrogated arteries. US venous duplex LE LT IMPRESSION: No acute deep venous thrombosis interrogated veins, left lower extremity. Negative for DVT. XR ankle LT min 3V IMPRESSION: Inferior fibular cortex is indistinct raising concern for osteomyelitis. Cystic changes in the medial and lateral menisci are probably chronic and degenerative. Extensive peripheral arterial disease. > plan to admit for further management -case discussed with hospitalist 14:18. Empiric IV antibiotics ordered Medications Administered Generic Name Dose Route Start Last Admin Trade Name Freq PRN Reason Stop Dose Admin Piperacillin Sod/Tazobactam 50 mls @ 100 mls/hr 11/24/24 13:59 11/24/24 14:14 Sod 2.25 gm/ Sodium Chloride IV 11/24/24 14:28 100 mls/hr ONCE ONE Administration Discontinued Medications Generic Name Dose Route Start Last Admin Trade Name Freq PRN Reason Stop Dose Admin Potassium Chloride 40 meq 11/24/24 12:59 11/24/24 13:06 Potassium Chloride Er 20 Meq Tab.Er.Prt PO 11/24/24 13:00 40 meq ONCE ONE Administration Medical Decision Making Medical Decision Making [facility] Narrative: 69-year-old male with a past medical history of CKD on HD (), HTN, pacemaker, proximal AFib on Eliquis, CHF, cirrhosis, anasarca, lymphedema, diabetes, COPD, HLD, presenting to the ED complaining of painful left ankle wound x months. On exam vital signs stable, NAD, nontoxic appearing, physical exam as noted above, please refer to images. Concern for acute on chronic wound / PAD vs diabetic wound vs ?osteo. No overt cellulitis appreciated. No drainable collection/abscess. Lower suspicion for DVT. Low suspicion for severe sepsis at this time Plan: Labs, lactic/blood cultures, ultrasound, x-ray Please refer to course for remaining clinical decision making, interpretation of labs/imaging results, and discussions with consultants and/or family members. Differential Diagnosis Differential Diagnoses: The differential diagnosis associated with the presentation includes As above Admission/Observation Consideration of admission/observation: Escalation of care including admission/observation considered Lab Data MDM Lab Attestation statement: I reviewed the patient's lab results. 11/24/24 11:57 11/24/24 11:57 Labs: Lab Results 11/24/24 11/24/24 11/24/24 Range/Units 11:57 12:05 13:34 WBC 4.0 L (4.8-10.8) X10*3/uL RBC 3.37 L (4.60-5.80) X10*6/uL Hgb 11.7 L (14.0-18.0) g/dl Hct 34.5 L (42.0-52.0) % MCV 102.4 H (80.0-98.0) fL MCH 34.7 H (27.0-33.0) pg MCHC 33.9 (31.0-36.0) g/dl RDW 14.9 (11.0-16.0) % Plt Count 99 L (160-400) X10*3/uL MPV 9.7 (9.4-12.4) fL Immature Gran % (Auto) 0.0 (0.0-0.4) % Neut % (Auto) 68.7 (45-73) % Lymph % (Auto) 13.9 L (20-40) % [place] % (Auto) 15.9 H (2-11) % Eos % (Auto) 0.0 (0-4) % Baso % (Auto) 1.5 (0-2) % Lymph # (Auto) 0.6 L (1.2-4.9) X10*3/uL [place] # (Auto) 0.6 (0.1-1.2) X10*3/uL Eos # (Auto) 0.0 (0.0-0.4) X10*3/uL Baso # (Auto) 0.1 (0.0-0.2) X10*3/uL Abs Immat Gran (auto) 0.00 (0.00-0.03) X10*3/uL Absolute Neuts (auto) 2.7 (2.0-8.3) x10*3/uL Absolute Nucleated RBC 0.000 (0.0-0.012) X10*3/uL Nucleated RBC % (auto) 0.0 (0.0-0.2) /100WBC PT 17.4 H (10.9-12.4) SEC INR 1.5 H (0.9-1.1) Sodium 141 (135-145) mmol/L Potassium 3.2 L (3.3-5.1) mmol/L Chloride 94 L (96-108) mmol/L Carbon Dioxide 36 H (22-29) mmol/L Anion Gap 14 (12-20) BUN 20 H (9-16) mg/dL Creatinine 3.78 H (0.5-1.4) mg/dL Estim Creat Clear Calc 21.3 Estimated GFR 16 POC Glucose 76 68 (60-115) mg/dL Random Glucose 78 (60-115) mg/dL Lactic Acid 1.2 (0.5-2.0) mmol/L Calcium 8.9 (8.4-10.2) mg/dL Magnesium 1.9 (1.6-2.6) mg/dL Total Bilirubin 1.8 H (0.0-1.0) mg/dL AST 26 (5-37) U/L ALT 9 (0-40) U/L Alkaline Phosphatase 136 H (39-117) U/L B-Natriuretic Peptide 2669 H (<100) pg/mL Total Protein 7.2 (6.5-8.0) g/dL Albumin 4.0 (3.5-5.0) g/dL Independent Interpretation I performed an independent interpretation of an: Plain X-Ray and Ultrasound Radiology Impression Discussion of test interpretation with radiology: I have reviewed the radiologist's reading. External Record Review External record reviewed: Inpatient record, Office record, Outpatient record, Prior outpatient labs, Prior outpatient radiology, Primary care record and Outside ED record Tests considered The following testing was considered but not selected: As above Prescription Management I considered prescription management with: Pain Medication and Antibiotic Chronic Conditions Patient?s care impacted by: Diabetes, Hypertension and Other (ESRD on HD) Social Determinants Patient?s care significantly limited by Social Determinants of Health including: Other Social Determinant of Health Critical Care Time Critical Care Time Critical Care Time: Yes Total Critical Care Time: 35 Attestation: I have personally provided critical care time exclusive of time spent on separately billable procedures. Time includes review of lab data, radiology results, discussion with consultants, and monitoring for potential decompensation. Intervention performed as documented. Discharge Plan Discharge Clinical Impression: Osteomyelitis Patient Disposition: Admitted As Inpatient Print Language: Haitian
[2024-11-24 12:00] VITALS: BP 134/78; PULSE 78; RESP 13; TEMP 36.7; O2SAT 98
[2024-11-24 12:04] LABS: MANUAL DIFF FLAG NO
[2024-11-24 12:06] LABS: Basophils Absolute Auto 0.1 X10*3/uL (0.0-0.2); Basophils Percent Auto 1.5 % (0-2); Hematocrit 34.5 % (42.0-52.0); Hemoglobin 11.7 g/dl (14.0-18.0); Lymphocytes Absolute Auto 0.6 X10*3/uL (1.2-4.9); Lymphocytes Percent Auto 13.9 % (20-40); Mean Corpuscular HGB Conc 33.9 g/dl (31.0-36.0); Mean Corpuscular Hemoglobin 34.7 pg (27.0-33.0); Mean Corpuscular Volume 102.4 fL (80.0-98.0); Mean Platelet Volume 9.7 fL (9.4-12.4); Monocytes Absolute Auto 0.6 X10*3/uL (0.1-1.2); Monocytes Percent Auto 15.9 % (2-11); Neutrophils Absolute Auto 2.7 x10*3/uL (2.0-8.3); Neutrophils Percent Auto 68.7 % (45-73); Red Blood Count 3.37 X10*6/uL (4.60-5.80); Red Cell Distribution Width 14.9 % (11.0-16.0)
[2024-11-24 12:09] LABS: Glucose, Whole Blood 76 mg/dL (60-115)
[2024-11-24 12:15] LABS: INTERNATIONAL NORM RATIO 1.5 (0.9-1.1); Prothrombin Time 17.4 SEC (10.9-12.4)
[2024-11-24 12:18] LABS: Platelet Count 99 X10*3/uL (160-400)
[2024-11-24 12:19] LABS: Magnesium 1.9 mg/dL (1.6-2.6)
[2024-11-24 12:20] LABS: Alanine Aminotransferase 9 U/L (0-40); Alkaline Phosphatase 136 U/L (39-117); Anion Gap 14 (12-20); Aspartate Amino Transferase 26 U/L (5-37); Bilirubin Total 1.8 mg/dL (0.0-1.0); Blood Urea Nitrogen 20 mg/dL (9-16); Calcium 8.9 mg/dL (8.4-10.2); Carbon Dioxide 36 mmol/L (22-29); Chloride 94 mmol/L (96-108); Creatinine Clr Calc Pharmacy 21.3; Estimated Glomerular Filt Rate 16; Glucose Random 78 mg/dL (60-115); Lactic Acid 1.2 mmol/L (0.5-2.0); Potassium 3.2 mmol/L (3.3-5.1); Sodium 141 mmol/L (135-145); Total Protein 7.2 g/dL (6.5-8.0)
[2024-11-24 12:26] LABS: B Type Natriuretic Peptide 2669 pg/mL (<100)
[2024-11-24] MEDS: Potassium Chloride ER 20 MEQ TAB.ER.PRT 40 MEQ PO (13:06)
--- OUTSIDE RECORDS SUMMARY | 2024-11-24 13:19 | XMS_ITS | Clinical Summary ---
Author Organization [facility] Address [address] [place] [phone] Phone Care Team Providers Care Ultrasound Technol Name Role Phone Steve Nguyen MD Primary Care Provider [phone] Allergies Active Allergy Reactions Criticality Noted Date Comments Ferumoxytol Other (see comments) High 04/02/2021 Chest pain, chills Other reaction(s): Other (see comments) Chest pain, chills Medications isosorbide mononitrate (IMDUR) 30 MG 24 hr tablet Take 30 mg by mouth 1 (one) time each day 2 Active Vitamin D, Ergocalciferol, 30143 units capsule Take 1 capsule by mouth [...] tablet 2 4 Active epoetin gaby (EPOGEN,PROCRIT) 50613 UNIT/ML injection Inject 10,000 Units under the [...] 3 (three) times a week 4 Active amoxicillin-clav ulanate (AUGMENTIN) 875-125 MG per tablet Take 1 tablet by mouth in the morning and 1 tablet in the evening. X 7 days. 5 Active clopidogrel (PLAVIX) 75 MG tablet Take 75 mg by mouth 5 08/28/19 26 Active doxycycline (VIBRA-TABS) 100 MG tablet take 1 tablet by mouth every 12 hours for 7 days 5 Active pantoprazole (PROTONIX) 40 MG EC tablet Take 40 mg by mouth 1 (one) time each day 5 Active Active Problems Problem Noted Date Diagnosed [...] 4 11/27/2020 08/12/2022 End stage renal disease 11/21/2020 022 01/2023 Idiopathic peripheral neuropathy 09/27/2020 07/15/2021 Sleep apnea [...] Encounters Date Type Department Care Team Description 11/24/2024 Treatment [facility] [address] [phone] Ezequiel Reyes MD End stage renal disease; Dependence on renal dialysis 11/15/2024 Treatment [facility] [place] [id number] [phone] Ezequiel Reyes MD End stage renal disease; Dependence on renal dialysis 11/10/2024 Treatment [facility] [place] [id number] [phone] Ezequiel Reyes MD End stage renal disease; Dependence on renal dialysis 11/03/2024 Treatment [facility] [place] [id number] [phone] Ezequiel Reyes MD End stage renal disease; Dependence on renal dialysis 10/31/2024 Telephone [facility] [address] [place] [address] [place] [phone] Genna Sauceda 10/28/2024 10:00 AM EDT Procedure visit [facility] [address] [place] [address] [place] [phone] Juan Buckner MD 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, implants and grafts, initial encounter [T85.858A] (Primary Dx) 10/27/2024 [facility] [address] [phone] Ezequiel Reyes MD End stage renal disease; Dependence on renal dialysis 10/26/2024 Telephone [facility] [address] [place] [address] [place] [phone] Tisha Goff 10/20/2024 Treatment [facility] [address] [phone] Ezequiel Reyes MD End stage renal disease; Dependence on renal dialysis 10/06/2024 Treatment [facility] [address] [phone] Ezequiel Reyes MD End stage renal disease; Dependence on renal dialysis 10/01/2024 Treatment [facility] [address] [phone] Ezequiel Reyes MD End stage renal disease; Dependence on renal dialysis 09/29/2024 11:30 AM EDT Office Visit [facility] [address] [place] [address] [place] [phone] Milton Stone MD End stage renal disease (HCC) (Primary Dx); Abscess of skin and/or subcutaneous tissue 09/28/2024 Telephone [facility] [address] [place] [address] [place] [phone] Pamela Cespedes 09/20/2024 Treatment [facility] [address] [phone] Ezequiel Reyes MD End stage renal disease; Dependence on renal dialysis 09/13/2024 [facility] [address] [phone] Ezequiel Reyes MD End stage renal disease; Dependence on renal dialysis 09/06/2024 Treatment [facility] [address] [phone] Ezequiel Reyes MD End stage renal disease; Dependence on renal dialysis 09/01/2024 Treatment [facility] [address] [phone] Ezequiel Reyes MD End stage renal disease; Dependence on renal dialysis from Last 3 Months Immunizations Immunization Administration [...] Sign Reading Time Taken Comments Blood Pressure 147/70 10/28/2024 9:28 AM EDT Pulse 65 10/28/2024 9:28 AM EDT Temperature 36.4 ??C (97.5 ??F) 10/28/2024 9:28 AM ED T Respiratory Rate 14 10/28/2024 9:28 AM EDT Oxygen Saturation 93% 10/28/2024 9:28 AM EDT Inhaled Oxygen Concentration - - Weight 103 kg (227 lb 1.2 oz) 10/28/2024 9:28 AM EDT Height 177.8 cm (5' 10 ) 10/28/2024 9:28 AM EDT Body Mass Index 32.58 10/28/2024 9:28 AM EDT Plan of Treatment Upcoming Encounters Date Type Department Care Team (Late st Contact Info) Description 02/17/2025 11:00 AM EDT Procedure visit [facility] [address] [place] [address] [place] [phone] Health Maintenance Due Date Last Done Comments [...] Foot Exam 08/23/2019 Diabetes: Hemoglobin A1C 12/15/2024 0403/2 025, 06/23/2024, 08/05/2022, Additional history exists Influenza Vaccine (Season Ended) 2025 03/28/2021, 03/26/2021, 04/28/2019, Additional history exists Pneumococcal Vaccine: Peds ( 0 to 5 Years) and At-Risk Patients (6 to 49 Years) Discontinued 01/28/2018, 12/13/2013, 05/04/2012 Procedures Procedure Name Priority Date/Time Associated Diagnosis Comments HEPATITIS B SURFACE ANTIGEN W/REFL CONFIRM Routine 11/17/2024 3:00 AM EDT TRANSFERRIN SATURATION Routine 3:00 AM EDT PROTEIN, TOTAL, SERUM Routine 11/17/2024 3:00 AM EDT ELECTROLYTE PANEL Routine 11/17/2024 3:0 0 AM EDT MAGNESIUM Routine 11/17/2024 3:00 AM EDT LACTATE DEHYDROGENASE Routine 11/17/2024 3:00 AM EDT LIH (HC) Routine 11/17/2024 3:00 AM EDT CREATININE, SERUM Routine 11/17/2024 3:0 0 AM EDT GLUCOSE, RANDOM Routine 11/17/2024 3:00 AM EDT BILIRUBIN, TOTAL Routine 11/17/2024 3:00 AM EDT BUN/CREATININE RATIO Routine 11/17/2024 3:00 AM EDT ALT Routine 11/17/2024 3:00 AM EDT AST Routine 11/17/2024 3:00 AM EDT CALCIUM PHOSPHORUS PRODUCT, ADJUSTED (HC) Routine 11/17/2024 3:00 AM EDT ALKALINE PHOSPHATASE Routine 11/17/2024 3:00 AM EDT FERRITIN Routine 11/17/2024 3:00 AM EDT KT/V NATURAL LOG, URR (HC) Routine 11/17/2024 3:00 AM EDT CBC AND DIFFERENTIAL Routine 11/17/2024 3:00 AM EDT POTASSIUM Routine 11/10/2024 3:00 AM EDT LIH (HC) Routine 11/10/2024 3:00 AM EDT PHOSPHATE ( PHOSPHORUS) Routine 11/08/2024 3:00 AM EDT LIH (HC) Routine 11/08/2024 3:00 AM EDT HEMOGLOBIN Routine 11/03/2024 3:00 AM EDT LIH (HC) Routine 11/03/2024 3:00 AM EDT POTASSIUM Routine 11/03/2024 3:00 AM EDT LIH (HC) Routine 10/27/2024 3:00 AM EDT POTASSIUM Routine 10/27/2024 3:00 AM EDT HEPATITIS B SURFACE ANTIGEN W/REFL CONFIRM Routine 10/20/2024 3:00 AM EDT TRANSFERRIN SATURATION Routine 3:00 AM EDT PROTEIN, TOTAL, SERUM Routine 10/20/2024 3:00 AM EDT ELECTROLYTE PANEL Routine 10/20/2024 3:0 0 AM EDT MAGNESIUM Routine 10/20/2024 3:00 AM EDT LIH (HC) Routine 10/20/2024 3:00 AM EDT LACTATE DEHYDROGENASE Routine 10/20/2024 3:00 AM EDT GLUCOSE, RANDOM Routine 10/20/2024 3:00 AM EDT BUN/CREATININE RATIO Routine 10/20/2024 3:00 AM EDT BILIRUBIN, TOTAL Routine 10/20/2024 3:00 AM EDT AST Routine 10/20/2024 3:00 AM EDT CREATININE, SERUM Routine 10/20/2024 3:0 0 AM EDT ALT Routine 10/20/2024 3:00 AM EDT CALCIUM PHOSPHORUS PRODUCT, ADJUSTED (HC) Routine 10/20/2024 3:00 AM EDT ALKALINE PHOSPHATASE Routine 10/20/2024 3:00 AM EDT FERRITIN Routine 10/20/2024 3:00 AM EDT KT/V NATURAL LOG, URR (HC) Routine 10/20/2024 3:00 AM EDT CBC AND DIFFERENTIAL Routine 10/20/2024 3:00 AM EDT POTASSIUM Routine 10/13/2024 3:00 AM EDT LIH (HC) Routine 10/13/2024 3:00 AM EDT LIH (HC) Routine 10/06/2024 3:00 AM EDT PHOSPHATE ( PHOSPHORUS) Routine 10/06/2024 3:00 AM EDT POTASSIUM Routine 10/06/2024 3:00 AM EDT HEMOGLOBIN Routine 09/29/2024 3:00 AM EDT LIH [...] EDT POTASSIUM Routine 08/25/2024 3:00 AM EDT from Last 3 Months Results * LIH (11/17/2024 3:00 AM EDT) Only the most recent of16 resultswithin the time period is included. Lipemia Normal Normal [facility] Icterus Normal Normal [facility] Hemolysis Normal Normal [facility] 11/17/2024 3:00 AM EDT 11/18/2024 1:30 PM EDT Ezequiel Reyes MD LAB HISTORICA [id number] RESULTS Final Result [facility] [address] [place] [address] * (ABNORMAL) Kt/V Natural Log, URR (11/17/2024 3:00 AM EDT) Only the most recent of4 resultswithin the time period is included. Treatment Time 241 min [facility] Pre-Weight, lb 105.2 kg [facility] Post-Weight, lb 102.3 kg [facility] Ultrafiltration Rate 7 <=13 mL/kg/hr [facility] Comment: Recommend achieving Ultrafiltration Rate (UFR) <=10 mL/kg/hr References: Maria M TAFOYA et al. Kidney Int. 2010; 79(2):250-257 BUN 44(H) 7 - 25 mg/dL [facility] BUN Post Dialysis 14 7 - 25 mg/dL [facility] UREA REDUCTION RATIO (%) 68 >=65 % [facility] Kt/V Natural Log 1.33 >=1.2 [facility] 11/17/2024 3:00 AM EDT 11/18/2024 1:30 PM EDT Ezequiel Reyes MD LAB HISTORICA [id number] RESULTS Final Result Performing Organization Address City/[facility]/ZIP Co de Phone Number [facility] [address] [place] [address] * (ABNORMAL) Calcium Phosphorus Product, Adjusted (11/17/2024 3:00 AM EDT) Only the most recent of4 resultswithin the time period is included. Albumin 4.2 3.6 - 5.4 g/dL [facility] Calcium 9.3 8.6 - 10.3 mg/dL [facility] Phosphorus, Serum 6.5(H) 2.5 - 5.0 mg/dL [facility] Ca*PO4 60.4(A) <55.0 mg2/dL2 [facility] Calcium, Adjusted Total 9.3 8.6 - 10.3 mg/dL [facility] CA*PO4 CORRCTD 60.4(A) <55.0 mg2/dL2 [facility] 11/17/2024 3:00 AM EDT 11/18/2024 1:30 PM EDT Ezequiel Reyes MD LAB HISTORICA [id number] RESULTS Final Result Performing Organization Address [facility] de Phone Number [facility] [address] [place] [address] * Hepatitis B Surface Ag w/Reflex Confirmation (11/17/2024 3:00 AM EDT) Only the most recent of3 resultswithin the time period is included. Hep B Surface Antigen Negative Negative [facility] 11/17/2024 3:00 AM EDT 11/18/2024 1:30 PM EDT Ezequiel Reyes MD LAB BLOOD ORDERABLES Final Result Performing Organization Address [facility] Co de Phone Number [facility] [address] [place] [address] * BUN/CREATININE RATIO (11/17/2024 3:00 AM EDT) Only the most recent of2 resultswithin the time period is included. Pathologist [facility] BUN/Creatinine Ratio 7.1 <=23.0 [facility] 11/17/2024 3:00 AM EDT 11/18/2024 1:30 PM EDT Ezequiel Reyes MD LAB HISTORICA [id number] RESULTS Final Result Performing Organization Address [facility] de Phone Number [facility] [address] [place] [address] * (ABNORMAL) TSAT (11/17/2024 3:00 AM EDT) Only the most recent of3 resultswithin the time period is included. Pathologist [facility] Iron 88 65 - 175 ug/dL [facility] Comment:REVISED REPORT, Prev iously reported as: 11 (Reported 11/18/2024 11:28) Transferrin 180(L) 215 - 365 mg/dL [facility] TIBC 252 211 - 406 ug/dL [facility] Iron Saturation (TSat) 35 22 - 52 % [facility] Comment:REVISED REPORT, Prev iously reported as: 4 (Reported 11/18/2024 11:28) 11/17/2024 3:00 AM EDT 11/18/2024 1:30 PM EDT Ezequiel Reyes MD LAB BLOOD ORDERABLES Edited Result - Final Performing Organization Address [facility] de Phone Number [facility] [address] [place] [address] * (ABNORMAL) CBC and Differential (11/17/2024 3:00 AM EDT) Only the most recent of3 resultswithin the time period is included. Pathologist [facility] DIFFERENTIAL MANUAL, 2 Not Indicated [facility] White Blood Cells 4.6 4.2 - 9.1 K/uL [facility] RBC 3.27(L) 4.63 - 6.08 M/uL [facility] Hgb 11.3(L) 13.7 - 17.5 g/dL [facility] Hemoglobin x 3 33.9(L) 41.1 - 52.5 g/dL [facility] Hematocrit 35.2(L) 40.1 - 51.0 % [facility] MCV 107.6(H) 79.0 - 92.2 fL [facility] MCH 34.6(H) 25.7 - 32.2 pg [facility] MCHC 32.1(L) 32.3 - 36.5 g/dL [facility] RDW 14.8(H) 11.6 - 14.4 % [facility] Platelets 114(L) 163 - 337 K/uL [facility] Neutrophils Relative 71.5(H) 34.0 - 67.9 % [facility] Lymphocytes Relative 15.0(L) 21.8 - 53.1 % [facility] Monocytes 12.2 5.3 - 12.2 % [facility] Eosinophils Relative 0.0(L) 0.8 - 7.0 % [facility] Basophils Relative 1.1 0.2 - 1.2 % [facility] Immature Granulocytes 0.2 0.0 - 1.0 % [facility] 11/17/2024 3:00 AM EDT 11/18/2024 1:36 PM EDT Ezequiel Reyes MD LAB BLOOD ORDERABLES Final Result Performing Organization Address City/[facility] Co de Phone Number [facility] [address] [place] [address] * ALT (11/17/2024 3:00 AM EDT) Only the most recent of3 resultswithin the time period is included. ALT (SGPT) 13 10 - 49 U/L [facility] 11/17/2024 3:00 AM EDT 11/18/2024 1:30 PM EDT Ezequiel Reyes MD LAB BLOOD ORDERABLES Final Result Performing Organization Address City/[facility] Co de Phone Number [facility] [address] [place] [address] * AST (11/17/2024 3:00 AM EDT) Only the most recent of3 resultswithin the time period is included. AST (SGOT) 20 <34 U/L [facility] 11/17/2024 3:00 AM EDT 11/18/2024 1:30 PM EDT Ezequiel Reyes MD LAB BLOOD ORDERABLES Final Result Performing Organization Address [facility] de Phone Number [facility] [address] [place] [address] * Protein, total (11/17/2024 3:00 AM EDT) Only the most recent of3 resultswithin the time period is included. Total Protein 7.0 6.4 - 8.9 g/dL [facility] 11/17/2024 3:00 AM EDT 11/18/2024 1:30 PM EDT Ezequiel Reyes MD LAB BLOOD ORDERABLES Final Result Performing Organization Address [facility] de Phone Number [facility] [address] [place] [address] * (ABNORMAL) Alkaline phosphatase (11/17/2024 3:00 AM EDT) Only the most recent of3 resultswithin the time period is included. Alkaline Phosphatase 130(H) 46 - 116 U/L [facility] 11/17/2024 3:00 AM EDT 11/18/2024 1:30 PM EDT Ezequiel Reyes MD LAB BLOOD ORDERABLES Final Result Performing Organization Address [facility] de Phone Number [facility] [address] [place] [address] * Magnesium (11/17/2024 3:00 AM EDT) Only the most recent of3 resultswithin the time period is included. Magnesium 2.1 1.9 - 2.7 mg/dL [facility] 11/17/2024 3:00 AM EDT 11/18/2024 1:30 PM EDT us Ezequiel Reyes MD LAB BLOOD ORDERABLES Final Result Performing Organization Address [facility] de Phone Number [facility] [address] [place] [address] * (ABNORMAL) Lactate dehydrogenase (11/17/2024 3:00 AM EDT) Only the most recent of3 resultswithin the time period is included. LDH 255(H) 120 - 246 U/L [facility] 11/17/2024 3:00 AM EDT 11/18/2024 1:30 PM EDT us Ezequiel Reyes MD LAB BLOOD ORDERABLES Final Result Performing Organization Address [facility] de Phone Number [facility] [address] [place] [address] * Glucose, random (11/17/2024 3:00 AM EDT) Only the most recent of3 resultswithin the time period is included. Glucose 84 70 - 99 mg/dL [facility] Comment: ADA guidelines outline the following fasting glucose ranges: Normal: ? <100 Prediabetes: 100-125 Diabetes: ? >125 11/17/2024 3:00 AM EDT 11/18/2024 1:30 PM EDT Ezequiel Reyes MD LAB BLOOD ORDERABLES Final Result Performing Organization Address [facility] de Phone Number [facility] [address] [place] [address] * (ABNORMAL) Ferritin (11/17/2024 3:00 AM EDT) Only the most recent of3 resultswithin the time period is included. Ferritin 1,063(H) 22 - 322 ng/mL [facility] 11/17/2024 3:00 AM EDT 11/18/2024 1:30 PM EDT us Ezequiel Reyes MD LAB BLOOD ORDERABLES Final Result Performing Organization Address [facility] de Phone Number [facility] [address] [place] [address] * (ABNORMAL) Creatinine, serum (11/17/2024 3:00 AM EDT) Only the most recent of3 resultswithin the time period is included. Creatinine 6.22(H) 0.70 - 1.30 mg/dL [facility] 11/17/2024 3:00 AM EDT 11/18/2024 1:30 PM EDT us Ezequiel Reyes MD LAB BLOOD ORDERABLES Final Result Performing Organization Address [facility] de Phone Number [facility] [address] [place] [address] * Bilirubin, total (11/17/2024 3:00 AM EDT) Only the most recent of3 resultswithin the time period is included. Total Bilirubin 1.1 0.3 - 1.2 mg/dL [facility] 11/17/2024 3:00 AM EDT 11/18/2024 1:30 PM EDT us Ezequiel Reyes MD LAB BLOOD ORDERABLES Final Result Performing Organization Address [facility] de Phone Number [facility] [address] [place] [address] * (ABNORMAL) Electrolyte panel (11/17/2024 3:00 AM EDT) Only the most recent of3 resultswithin the time period is included. Sodium 141 136 - 145 mEq/L [facility] Potassium 3.6 3.4 - 5.0 mEq/L [facility] Chloride 97(L) 98 - 107 mEq/L [facility] Bicarbonate (CO2) 29 21 - 31 mEq/L [facility] Anion Gap 15(H) 3 - 14 mEq/L [facility] 11/17/2024 3:00 AM EDT 11/18/2024 1:30 PM EDT us Ezequiel Reyes MD LAB BLOOD ORDERABLES Final Result Performing Organization Address [facility] Co de Phone Number [facility] [address] [place] [address] * Potassium (11/10/2024 3:00 AM EDT) Only the most recent of10 resultswithin the time period is included. Potassium 4.4 3.4 - 5.0 mEq/L [facility] 11/10/2024 3:00 AM EDT 11/11/2024 1:27 PM EDT us Ezequiel Reyes MD LAB BLOOD ORDERABLES Final Result Performing Organization Address [facility] de Phone Number [facility] [address] [place] [address] * (ABNORMAL) Phosphorus (11/08/2024 3:00 AM EDT) Only the most recent of2 resultswithin the time period is included. Phosphorus, Serum 7.0(H) 2.5 - 5.0 mg/dL [facility] 11/08/2024 3:00 AM EDT 11/09/2024 3:07 PM EDT Ezequiel Reyes MD LAB BLOOD ORDERABLES Final Result Performing Organization Address [facility] de Phone Number [facility] [address] [place] [address] * (ABNORMAL) Hemoglobin (11/03/2024 3:00 AM EDT) Only the most recent of3 resultswithin the time period is included. Hgb 10.9(L) 13.7 - 17.5 g/dL [facility] Hemoglobin x 3 32.7(L) 41.1 - 52.5 g/dL [facility] 11/03/2024 3:00 AM EDT 11/04/2024 12:20 PM EDT us Ezequiel Reyes MD LAB BLOOD ORDERABLES Final Result Performing Organization Address [facility] de Phone Number [facility] [address] [place] [address] * Collection Date (09/24/2024 3:00 AM EDT) Only the most recent of3 resultswithin the time period is included. Collection Date See Comment [facility] Comment: Patient sample received may exceed specimen stability, based on the collection date electronically provided. ??When reviewing patient results, verify collection information and consider specimen stability before acting on any critical or panic results. 09/24/2024 3:00 AM EDT us Ezequiel Reyes MD LAB HISTORICA [id number] RESULTS Final Result Performing Organization Address [facility] de Phone Number [facility] [address] [place] [address] * PTH, Intact (09/15/2024 3:00 AM EDT) Pathologist [facility] PTH, Intact 253 160 - 721 pg/mL [facility] Comment: Suggested (KDIGO) ESRD maintenance range is two to nine times the upper normal limit (80.1 pg/mL) for the laboratory. 09/15/2024 3:00 AM EDT 09/17/2024 1:30 PM EDT us Ezequiel Reyes MD LAB BLOOD ORDERABLES Final Result Performing Organization Address [facility] de Phone Number [facility] [address] [place] [address] * Hemoglobin A1c (09/15/2024 3:00 AM EDT) Hemoglobin A1C 5.1 <5.7 % [facility] Comment: Methodology: Enzymatic HbA1c (NGSP %) ?Suggested Diagnosis >6.4% ? Diabetic 5.7-6.4% ?Pre-Diabetic <5.7% ? Non-Diabetic Diabetic Glucose Control Evaluation: Therapeutic action suggested at >8.0% ADA recommends a glycemic goal of <7.0% 09/15/2024 3:00 AM EDT 09/17/2024 1:27 PM EDT us Ezequiel Reyes MD LAB BLOOD ORDERABLES Final Result [facility] [address] [place] [address] * (ABNORMAL) Lipid panel (09/15/2024 3:00 AM [...] ORDERABLES Final Result [facility] [address] [place] [address] from Last 3 Months Insurance Medicare Medicare Medicare Care Teams Ultrasound Technol Relationship Specialty Start Date End Date Steve Nguyen MD [address] [place], [place] PCP - General 04/19/19
[2024-11-24 13:37] LABS: Glucose, Whole Blood 68 mg/dL (60-115)
[2024-11-24] MEDS: Piperacillin Sodium/Tazobactam 2.25 GM in 0.9 % Sodium Chloride 50 ML IV ×2 (14:14→22:46)
[2024-11-24] MEDS: vancomycin/NS 2,000 MG/500 ML PLAST..BAG 250 MG IV (15:03)
[2024-11-24 15:36] VITALS: BP 146/71; PULSE 80; RESP 18; TEMP 36.4; O2SAT 99
--- NOTE | 2024-11-24 17:39 | P.HPHOSP_ITS ---
History of Present Illness Date of Service: 11/24/24 Attending physician on admission: Ashley Porras Chief Complaint: Left ankle pain Kael Meyer is a 69 years old man with past medical history significant for PVD, chronic dermatitis to the lower extremities, ESRD on HD (via right arm fistula; TTS), obstructive sleep apnea on CPAP, paroxysmal atrial fibrillation on Eliquis, permanent pacemaker, HFrEF (20-25%), hypertension, peripheral vascular disease and COPD not on home oxygen presents to the emergency department complaining of left ankle pain associated ulcer. Patient stated that that also has been there for at least 5 months. He has not noted any discharge from the ulcer. Patient is a very poor historian. He denied any headache, dizziness, chest pain, shortness on breath, abdominal pain, nausea, vomiting or diarrhea. Denies fever or chills. His last hemodialysis was today and completed. He is a former tobacco and alcohol abuser. Denied illicit drug use. In the ED, he was found to have stable vital signs. Last blood pressure is 146/71. Blood workup showed leukocytosis of 0.04, hemoglobin 11.7 and platelets of 99 (all around baseline). Blood workup was remarkable for hypokalemia of 3.2, CO2 36, BUN 20 and creatinine of 3.78. Sodium is 141. Glucose 76 and 68. Bilirubin is 1.8 (around baseline), and BNP is 2669. Left lower extremity arterial duplex showed severe inflow disease through the interrogated arteries. Venous Doppler is negative for DVT. Left ankle x-ray showed inferior fibular cortex raising concern for osteomyelitis. Left hip x-ray showed no definitive acute fracture. ED tx: Vancomycin 2 g IV, potassium 40 mEq p.o. Zosyn 2.25 g IV Review of Systems 2 Review of Systems: All 12 systems were reviewed and normal except as noted in HPI. [facility] Medical History Blood clot in arm (~04/11/24) CKD (chronic kidney disease) stage 4, GFR 15-29 ml/min Obstructive sleep apnea HTN (hypertension) Dermatitis associated with moisture from stool incontinence Clostridioides difficile diarrhea Urinary retention with incomplete bladder emptying Pacemaker Pancytopenia Incomplete emptying of bladder due to benign prostatic hyperplasia Acute kidney injury superimposed on chronic kidney disease Fistula Paroxysmal A-fib Diastolic heart failure Pulmonary hypertension Depression, major Afib Bradycardia Scrotal edema Anasarca Cirrhosis Lymphedema Type 2 diabetes mellitus with hyperglycemia Osteoarthritis Peripheral neuropathy BPH (benign prostatic hyperplasia) Venous stasis dermatitis Obesity (BMI 30-39.9) Hypercholesterolemia Peripheral vascular disease Pulmonary hypertension Essential thrombocytopenia Anemia COPD (chronic obstructive pulmonary disease) Diabetic retinopathy Chronic kidney disease Lumbar degenerative disc disease High cholesterol Edema Gout Family History Father Prostate cancer CVD (cardiovascular disease) Mother Hemochromatosis Brother Motor vehicle accident Sister CAD (coronary artery disease) Maternal Grandfather Myocardial infarction Surgical History S/P cardiac catheterization Hx of cardiac pacemaker History of bowel diversion surgery History of gastric surgery H/O prior ablation treatment History of carpal tunnel release History of bilateral cataract extraction History of tonsillectomy Social History Household Members: Spouse Housing: House Do you presently have visiting nurse or other home services: No Alcohol intake: never Patient Tobacco Use Status: Former Tobacco user Tobacco use type: Cigarette e-Cigarette/Vaping Use: Former Use Second Hand Smoke Exposure: Yes Have you been hit, kicked, punched, or otherwise hurt by someone within the past year? If so, by whom?: No Do you feel safe in your current relationship?: Yes Is there a partner from a previous relationship who is making you feel unsafe now?: No Are you made to feel afraid or neglected: No Advance Directives: Yes Advance Directives Information Provided: No Advance Directives on File: Yes Advance Directives Date on File: 11/06/22 Recently lost weight without trying: No Nutrition Risks: No Nutritional Risk Poor oral hygiene: No service: No Current occupational status: retired Cognitive needs: Yes Hearing needs: Yes Vision needs: Yes Meds Allergies Allergy/AdvReac Type Severity Reaction Status Date / Time No Known Allergies Allergy Verified 11/24/24 10:47 [No Known Allergies*] Active Medications: Current Medications Acetaminophen (Acetaminophen 325 Mg Tablet) 975 mg PO Q6H PRN PRN Reason: Pain, Mild 1-3,fever,headache Sodium Chloride (0.9 % Sodium Chloride Flush 3 Ml Syringe) 3 ml IVFLUSH QSHIFT [facility] Last Admin: 11/24/24 16:08 Dose: Not Given Home Medications ?Medication ?Instructions ?Recorded ?Confirmed ?Last Taken ?Type polyethylene glycol 3350 17 gram 17 g PO DAILY PRN Constipation 09/24/22 11/24/24 10/13/22 History oral powder packet (Miralax) sevelamer carbonate 800 mg tablet 800 mg PO TID 04/08/23 11/24/24 Unknown History ergocalciferol (vitamin D2) 50 mcg 50 mcg PO DAILY 08/14/23 11/24/24 Unknown History (2,000 unit) capsule midodrine 5 mg tablet 5 mg PO DAILY 08/14/23 11/24/24 Unknown History apixaban 5 mg tablet (Eliquis) 5 mg PO BID 11/24/24 11/24/24 Unknown History ferrous sulfate 325 mg (65 mg 325 mg PO DAILY 11/24/24 11/24/24 Unknown History iron) tablet Physical Exam 2 Vital Signs and Narrative: Vital Signs: Last Vital Signs Temp 97.6 F 11/24/24 15:36 Pulse 80 11/24/24 15:36 Resp 18 11/24/24 15:36 BP 146/71 H 11/24/24 15:36 Pulse Ox 99 11/24/24 15:36 O2 Del Method Room Air 11/24/24 15:36 O2 Flow Rate 4 11/24/24 12:00 BMI result Body Mass Index 31.9 Constitutional - Awake and Alert, No apparent distress. Cooperative. Pleasant. HEENT - PER, EOMI. Normal sclerae. Heart - RRR, (+) murmurs. Lungs - Normal lung expansion, Normal respiratory effort, No respiratory distress, CTA bilaterally Abdomen - NT / ND; +BS; No rebound or guarding Extremities - Legs: Hyperpigmentation, scaly skin very dry. Left ankle: Lateral aspect: Deep ulcer without discharges (see pictures below) Left lower extremity: Shortened with external rotation. Musculoskeletal - generalized atrophy. Skin - Warm/Dry Neurological - Alert & oriented x3. No focal weakness grossly noted. Normal speech. Psychological - Depressed affect Results Labs 11/24/24 11:57 11/24/24 11:57 Labs: Laboratory Results - last 24 hr 11/24/24 11/24/24 11/24/24 11:57 12:05 13:34 MCV 102.4 H MCH 34.7 H MCHC 33.9 RDW 14.9 Plt Count 99 L MPV 9.7 Immature Gran % (Auto) 0.0 Neut % (Auto) 68.7 Lymph % (Auto) 13.9 L Mcdowell % (Auto) 15.9 H Eos % (Auto) 0.0 Baso % (Auto) 1.5 Lymph # (Auto) 0.6 L Mcdowell # (Auto) 0.6 Eos # (Auto) 0.0 Baso # (Auto) 0.1 Abs Immat Gran (auto) 0.00 Absolute Neuts (auto) 2.7 Absolute Nucleated RBC 0.000 Nucleated RBC % (auto) 0.0 PT 17.4 H INR 1.5 H Anion Gap 14 Estim Creat Clear Calc 21.3 Estimated GFR 16 POC Glucose 76 68 Random Glucose 78 Lactic Acid 1.2 Calcium 8.9 Magnesium 1.9 Total Bilirubin 1.8 H AST 26 ALT 9 Alkaline Phosphatase 136 H B-Natriuretic Peptide 2669 H Total Protein 7.2 Albumin 4.0 Imaging Radiologist's Impressions: Impressions Duplex Scan Lower Extremity Artery 11/24/24 12:00 IMPRESSION: Severe inflow disease throughout the interrogated arteries. Electronically signed by: Fito Rodriges MD 11/24/2024 01:13 PM EDT RP Venous Duplex 11/24/24 12:30 IMPRESSION: No acute deep venous thrombosis interrogated veins, left lower extremity. Negative for DVT. Electronically signed by: Fito Rodriges MD 11/24/2024 01:07 PM EDT RP Ankle X-Ray 11/24/24 12:35 IMPRESSION: Inferior fibular cortex is indistinct raising concern for osteomyelitis. Cystic changes in the medial and lateral menisci are probably chronic and degenerative. Extensive peripheral arterial disease. Electronically signed by: Rod Munoz MD 11/24/2024 01:53 PM EDT RP Assessment and Plan (1) Osteomyelitis: Qualifiers: Osteomyelitis type: unspecified type Osteomyelitis location: ankle L aterality: left Qualified Code(s): M86.9 - Osteomyelitis, unspecified Status: Acute (2) Ulcer of right ankle: Qualifiers: Non-pressure ulcer stage: unspecified non-pressure ulcer stage Q ualified Code(s): L97.319 - Non-pressure chronic ulcer of right ankle with unspecified severity Status: Deleted (3) Ulcer of left ankle: Qualifiers: Non-pressure ulcer stage: unspecified non-pressure ulcer stage Q ualified Code(s): L97.329 - Non-pressure chronic ulcer of left ankle with unspecified severity Status: Acute Plan Kael Meyer is a 69 y/o man with PMHx significant for PAD admitted with: * Left ankle ulcer secondary to PAD. Assess for osteomyelitis. Admit to hospitalist service. Continue empiric IV antibiotic therapy with vancomycin and Zosyn. Check CRP. Check left ankle 3 face bone scan. Wound and vascular surgery consult. * Hypokalemia. Received KCl 40 mEqu PO in ED. Continue to monitor. * Pancytopenia (around baseline). Secondary to cirrhosis. Continue to monitor. * Chronic liver disease. No evidence of decompensation. With drinking alcohol long time ago. Continue to monitor for symptoms. * ESRD on HD. Last hemodialysis was today and completed. Continue sevelamer. Check phosphorus. Nephrology consult for inpatient hemodialysis. * Obstructive sleep apnea. Nocturnal nurse CPAP. * Essential hypertension. Continue amlodipine and metoprolol. * COPD. No home oxygen. No acute symptoms. * Paroxysmal atrial fibrillation. Continue Eliquis and metoprolol. * Hyperlipidemia. Continue statin. * Permanent pacemaker * HFrEF (20-25%). No acute symptoms. * CAD. Continue Plavix and statin. * GERD. Continue PPI. patient has been noncompliant with his hold medications DVT prophylaxis: On Eliquis GI prophylaxis: Ppi Code status: Full Patient will need hospitalization for at least 2 midnights for left ankle ulcer and possible associated osteomyelitis treatment with IV antibiotic therapy Quality Stroke Does the patient have a stroke diagnosis?: No VTE Prior VTE?: No VTE Risk Level:: Medical - moderate - high VTE Device Contraindication: Treatment Not Indicated VTE Drug Contraindication: N/A - Med Ordered
--- NOTE | 2024-11-24 17:46 | PC.NURSE ---
this nurse returned pt cane from ED26 to room 363
[2024-11-24 17:57] VITALS: BMI 32.4
[2024-11-24 18:05] LABS: C Reactive Protein 4.01 mg/dL (< or = 0.50)
[2024-11-24 18:07] VITALS: BP 137/66; PULSE 61; RESP 18; TEMP 36.3; O2SAT 95
--- NOTE | 2024-11-24 18:19 | PHA.MEDREC ---
Addendum entered by Curly Tom prasad 11/24/24 20:18: MED REC REVIEWED Dr. Rodrigo Porras was made aware that patient is not compliant. Original Note: Pharmacy Consult ? Medication Reconciliation Pharmacy has completed the medication reconciliation. Patient is not a good historian and not adherent to his medications. Patient Confirmed Eliquis 5 mg, last filled 09/01/24 for 30 days, Plavix 75 mg , last filled 09/01/24 for 90 days, Amlodipine 5 mg , last filled 04/08/24 for 90 days, Metoprolol Tart 25 mg, last filled 04/30/25 for 90 days, Hydroxychloroquine 200 mg, last filled 08/23/24 for 30 days, Midodrine 5 mg , last filled 04/06/24 for 90 days, Sevelamer 800 mg TID, however there are no claims. Patient states he should be on these medications however he has ran out of medication. last dose of patients medications are unknown.
--- NOTE | 2024-11-24 19:06 | HO.SKINPHOTO ---
left ankle wound
[2024-11-24 19:27] VITALS: BP 139/65; PULSE 60; RESP 18; TEMP 36.2; O2SAT 98
[2024-11-24] MEDS: Hydroxychloroquine Sulfate 200 MG TABLET PO (22:41)
[2024-11-24] MEDS: 0.9 % Sodium Chloride Flush 3 ML SYRINGE IVFLUSH (23:59)
--- NOTE | 2024-11-25 | PC.NURSE ---
This RN assumed care at 1900, pt denies pain at this time. Resting comfortably in bed, LS clear denies SOB/CP, BSx4, urinal at bedside. + pulse b/l but faint. KATHRINE fistula. Open wounds to BLE-ammonium lactate, Left ankle: Foam CDI (+osteo) Call pearson within reach, Will continue to assess
[2024-11-25 03:26] VITALS: BP 115/52; PULSE 89; RESP 16; TEMP 36.1; O2SAT 96
[2024-11-25 06:15] LABS: MANUAL DIFF FLAG NO
[2024-11-25 06:18] LABS: Basophils Absolute Auto 0.1 X10*3/uL (0.0-0.2); Basophils Percent Auto 1.3 % (0-2); Eosinophils Absolute Auto 0.1 X10*3/uL (0.0-0.4); Eosinophils Percent Auto 1.3 % (0-4); Hematocrit 34.3 % (42.0-52.0); Hemoglobin 11.6 g/dl (14.0-18.0); Imm Gran Abs Auto 0.01 X10*3/uL (0.00-0.03); Imm Gran Pct Auto 0.2 % (0.0-0.4); Lymphocytes Absolute Auto 0.6 X10*3/uL (1.2-4.9); Mean Corpuscular HGB Conc 33.8 g/dl (31.0-36.0); Mean Corpuscular Hemoglobin 35.2 pg (27.0-33.0); Mean Corpuscular Volume 103.9 fL (80.0-98.0); Monocytes Absolute Auto 0.6 X10*3/uL (0.1-1.2); Monocytes Percent Auto 13.6 % (2-11); Neutrophils Absolute Auto 3.3 x10*3/uL (2.0-8.3); Neutrophils Percent Auto 70.6 % (45-73); Platelet Count 105 X10*3/uL (160-400); White Blood Count 4.7 X10*3/uL (4.8-10.8)
[2024-11-25 06:43] LABS: Anion Gap 17 (12-20); Blood Urea Nitrogen 26 mg/dL (9-16); Calcium 9.5 mg/dL (8.4-10.2); Carbon Dioxide 32 mmol/L (22-29); Chloride 95 mmol/L (96-108); Creatinine Clr Calc Pharmacy 16.6; Estimated Glomerular Filt Rate 12; Glucose Random 81 mg/dL (60-115); Phosphorus 5.2 mg/dL (2.7-4.5); Potassium 3.8 mmol/L (3.3-5.1); Sodium 140 mmol/L (135-145)
[2024-11-25] MEDS: Piperacillin Sodium/Tazobactam 2.25 GM in 0.9 % Sodium Chloride 50 ML IV ×3 (07:00→21:30)
[2024-11-25] MEDS: Pantoprazole Sodium 40 MG/10 ML VIAL IVPUSH (07:01)
[2024-11-25 08:00] VITALS: BP 134/63; PULSE 61; RESP 18; TEMP 36.7; O2SAT 96
[2024-11-25] MEDS: 0.9 % Sodium Chloride Flush 3 ML SYRINGE IVFLUSH ×3 (08:51→21:30)
[2024-11-25] MEDS: Apixaban 5 MG TABLET PO ×2 (08:53→21:24)
[2024-11-25] MEDS: Clopidogrel Bisulfate 75 MG TABLET PO (08:53)
[2024-11-25] MEDS: amLODIPine Besylate 5 MG TABLET PO (08:53)
[2024-11-25] MEDS: Ferrous Sulfate 324 MG TABLET.DR PO (08:53)
[2024-11-25] MEDS: Pravastatin Sodium 20 MG TABLET PO (08:53)
[2024-11-25] MEDS: Metoprolol Tartrate 25 MG TABLET PO (08:53)
[2024-11-25] MEDS: Sevelamer Carbonate Tablet 800 MG TABLET PO ×3 (08:54→21:24)
--- NOTE | 2024-11-25 10:48 | MHC.CM.PN ---
[facility] FORM DELIVERED. PT LIVES WITH SPOUSE, USES WALKER/CANE FOR MOBILITY PRN. PT HAS BEDSIDE COMMODE WELL. PT ATTENDS HD AT [facility], TRANSPORTS. NO HOME SERVICES AT THIS TIME. + HCP ON FILE. PCP DR. WALKER AT [facility] [place]. DP: HOME WITH NEW VNA? VS HOME, NO SERVICES VS STR IF LT IV ABT CANNOT BE GIVEN AT HD. PT WOULD BE AGREEABLE TO [facility] IF HOME SERVICES ARE RECOMMENDED. PT'S WILL TRANSPORT. CM WILL CONTINUE TO FOLLOW FOR ANY CHANGE TO DC PLAN/NEEDS.
--- NOTE | 2024-11-25 11:33 | P.CONGS_ITS ---
<Statement entered by Joni Cole MD - 11/25/24 12:17> I have seen and evaluated the patient and agree with history, findings, assessment and plan documented by Charley Burns PA-c. Noninvasive testing was reviewed. We will plan for outpatient intervention. Thank you for allowing us to assist in his care. History of Present Illness Consult details Consult date: 11/25/24 Narrative: We were consulted on Kael, for concerns of a nonhealing ulcer on the left foot. He presented to the ER yesterday for a painful left ankle >1m. He has a medical hx pertinent for ESRF on HD T/Th/Sat, ZEYAD on CPAP, HTN, pacemaker, proximal Afib on Eliquis, CHF, cirrhosis, anasarca, lymphedema, COPD, HLD, gout, and PVD. He presented to the ER due to the ongoing nonhealing ulcer. He states that he has been trying to get into the [facility] and his PCP office for evaluation and treatment but has not been able to get into either; it was recommended that he present to an Urgent Care but he came to the ER instead. He was admitted for IV abx for findings of osteo on imaging. He states the ankle/foot is not hurting this morning. He denies any injuries or falls. He states he thinks the wound may be from irritation from shoes that he wears. The pt states he had been seen by Vascular Surgery at [facility] >5y and he had some sort of procedure, similar sounding to an angio, in his left lower extremity. Review of Systems 2 Constitutional: Constitutional: Reports as per HPI and Denies weakness ENT: Reports Normal hearing present and Denies dizziness Cardiovascular: Cardiovascular: Reports as per HPI, Denies chest pain, Denies chest pain at rest, Denies chest pain with activity, Denies dyspnea and Denies dyspnea on exertion Respiratory: Respiratory: Reports as per HPI, Denies cough, Denies dyspnea and Denies dyspnea on exertion Gastrointestinal: Gastrointestinal: Reports as per HPI, Denies abdominal pain, Denies nausea and Denies vomiting Musculoskeletal: Musculoskeletal: Denies numbness Integumentary/Breasts: Skin/Breast: Reports as per HPI, Denies erythema and Denies wounds Neurologic: Reports Normal hearing present, Denies dizziness, Denies numbness, Denies Sensory deficit (Neuro) and Denies weakness Psychiatric: Psychiatric: Reports no additional psychiatric complaints Endocrine: Endocrine: Reports no additional endocrine complaints [facility] Past Medical History Medical History Blood clot in arm (~04/11/24) CKD (chronic kidney disease) stage 4, GFR 15-29 ml/min Obstructive sleep apnea HTN (hypertension) Dermatitis associated with moisture from stool incontinence Clostridioides difficile diarrhea Urinary retention with incomplete bladder emptying Pacemaker Pancytopenia Incomplete emptying of bladder due to benign prostatic hyperplasia Acute kidney injury superimposed on chronic kidney disease Fistula Paroxysmal A-fib Diastolic heart failure Pulmonary hypertension Depression, major Afib Bradycardia Scrotal edema Anasarca Cirrhosis Lymphedema Type 2 diabetes mellitus with hyperglycemia Osteoarthritis Peripheral neuropathy BPH (benign prostatic hyperplasia) Venous stasis dermatitis Obesity (BMI 30-39.9) Hypercholesterolemia Peripheral vascular disease Pulmonary hypertension Essential thrombocytopenia Anemia COPD (chronic obstructive pulmonary disease) Diabetic retinopathy Chronic kidney disease Lumbar degenerative disc disease High cholesterol Edema Gout Family History Family History Father Prostate cancer CVD (cardiovascular disease) Mother Hemochromatosis Brother Motor vehicle accident Sister CAD (coronary artery disease) Maternal Grandfather Myocardial infarction Surgical History Surgical History S/P cardiac catheterization Hx of cardiac pacemaker History of bowel diversion surgery History of gastric surgery H/O prior ablation treatment History of carpal tunnel release History of bilateral cataract extraction History of tonsillectomy Social History Social History Household Members: Spouse Housing: House Do you presently have visiting nurse or other home services: No Alcohol intake: never Patient Tobacco Use Status: Former Tobacco user Tobacco use type: Cigarette e-Cigarette/Vaping Use: Former Use Second Hand Smoke Exposure: Yes Currently Displaying Signs/Symptoms of Drug Intoxication Withdrawal: No Have you been hit, kicked, punched, or otherwise hurt by someone within the past year? If so, by whom?: No Do you feel safe in your current relationship?: Yes Is there a partner from a previous relationship who is making you feel unsafe now?: No Are you made to feel afraid or neglected: No Advance Directives: Yes Advance Directives Information Provided: No Advance Directives on File: Yes Advance Directives Date on File: 11/06/22 Recently lost weight without trying: No Nutrition Risks: No Nutritional Risk Poor oral hygiene: No service: No Current occupational status: retired Cognitive needs: Yes Hearing needs: Yes Vision needs: Yes Meds Allergies Allergy/AdvReac Type Severity Reaction Status Date / Time No Known Allergies Allergy Verified 11/24/24 10:47 [No Known Allergies*] Active Medications: Current Medications Acetaminophen (Acetaminophen 325 Mg Tablet) 975 mg PO Q6H PRN PRN Reason: Pain, Mild 1-3,fever,headache Amlodipine Besylate (Amlodipine Besylate 5 Mg Tablet) 5 mg PO DAILY [facility]; Protocol Last Admin: 11/25/24 08:53 Dose: 5 mg Apixaban (Apixaban 5 Mg Tablet) 5 mg PO BID [facility] Last Admin: 11/25/24 08:53 Dose: 5 mg Clopidogrel Bisulfate (Clopidogrel Bisulfate 75 Mg Tablet) 75 mg PO DAILY [facility] Last Admin: 11/25/24 08:53 Dose: 75 mg Ferrous Sulfate (Ferrous Sulfate 324 Mg Tablet.) 324 mg PO DAILY [facility] Last Admin: 11/25/24 08:53 Dose: 324 mg Hydroxychloroquine Sulfate (Hydroxychloroquine Sulfate 200 Mg Tablet) 200 mg PO Q48H [facility] Last Admin: 11/24/24 22:41 Dose: 200 mg Piperacillin Sod/Tazobactam (Sod 2.25 gm/ Sodium Chloride) 50 mls @ 100 mls/hr IV Q8H [facility] Last Infusion: 11/25/24 08:54 Dose: Infused Vancomycin HCl 500 mg/ Sodium (Chloride) 110 mls @ 110 mls/hr IV ONCE ONE Stop: 11/25/24 08:59 Lactic Acid (Ammonium Lactate 12 % Cream 140 Gm Tube) 1 appl TOPICAL DAILY [facility]; Protocol Metoprolol Tartrate (Metoprolol Tartrate 25 Mg Tablet) 25 mg PO BID [facility]; Protocol Last Admin: 11/25/24 08:53 Dose: 25 mg Midodrine (Midodrine Hcl 5 Mg Tablet) 5 mg PO DAILY [facility] Last Admin: 11/25/24 08:56 Dose: Not Given Pantoprazole Sodium (Pantoprazole Sodium 40 Mg/10 Ml Vial) 40 mg IVPUSH DAILY@0630 [facility] Last Admin: 11/25/24 07:01 Dose: 40 mg Pharmacy Consult (Consult Rx Vancomycin Dosing) 1 each MISCELLANE DAILY PRN PRN Reason: Consult order Polyethylene Glycol (Polyethylene Glycol 3350 17 Gm Powd.Pack) 17 gm PO DAILY PRN PRN Reason: Constipation Pravastatin Sodium (Pravastatin Sodium 20 Mg Tablet) 20 mg PO DAILY [facility] Last Admin: 11/25/24 08:53 Dose: 20 mg Sevelamer Carbonate (Sevelamer Carbonate Tablet 800 Mg Tablet) 800 mg PO TID [facility] Last Admin: 11/25/24 08:54 Dose: 800 mg Sodium Chloride (0.9 % Sodium Chloride Flush 3 Ml Syringe) 3 ml IVFLUSH QSHIFT [facility] Last Admin: 11/25/24 08:51 Dose: 3 ml Home Medications ?Medication ?Instructions ?Recorded ?Confirmed ?Last Taken ?Type polyethylene glycol 3350 17 gram 17 g PO DAILY PRN Constipation 09/24/22 11/24/24 10/13/22 History oral powder packet (Miralax) sevelamer carbonate 800 mg tablet 800 mg PO TID 04/08/23 11/24/24 Unknown History ergocalciferol (vitamin D2) 50 mcg 50 mcg PO DAILY 08/14/23 11/24/24 Unknown History (2,000 unit) capsule midodrine 5 mg tablet 5 mg PO DAILY 08/14/23 11/24/24 Unknown History apixaban 5 mg tablet (Eliquis) 5 mg PO BID 11/24/24 11/24/24 Unknown History ferrous sulfate 325 mg (65 mg 325 mg PO DAILY 11/24/24 11/24/24 Unknown History iron) tablet Physical Exam 2 Vital Signs: Vital Signs: Last Vital Signs Temp 98.1 F 11/25/24 08:00 Pulse 61 11/25/24 08:00 Resp 18 11/25/24 08:00 BP 134/63 11/25/24 08:00 Pulse Ox 96 11/25/24 08:00 O2 Del Method Room Air 11/25/24 08:00 O2 Flow Rate 4 11/24/24 12:00 BMI result Body Mass Index 32.4 Const: General: comfortable and no acute distress O rientation/consciousness: patient oriented x3 HEENT: Ears: hearing grossly normal bilaterally Resp: Effort & Inspection: normal respiratory effort and able to speak in complete sentences Auscultation: clear to auscultation bilaterally Cardio: Rate: regular rate Rhythm: regular rhythm Heart sounds: S1 normal heart sound present and S2 normal heart sound present Bruits: no abdominal aortic bruits, no carotid bruits, no femoral bruits and no renal bruits GI: Palpation (GI): No Abdominal aortic bruit present Neuro: General: patient oriented x3 Cranial nerves: Yes Normal hearing present Sensory Exam: No Sensory deficit (Neuro) Extrem: Other: Bilateral lower extremities: hyperkeratosis noted from just below the knees to the tips of his toes. +2 nonpitting edema. Doppler DP pulses, unable to palpate. Left lateral ankle/foot: appx 4rut2ot wound noted on the lateral aspect of the foot, not tender to palpation. Yellow slough noted in the wound. Wound bed appears as pale pink. No drainage or bleeding noted. No rolled edges noted. Periwound is pink. Results Labs 11/25/24 05:27 11/25/24 05:27 Labs: Abnormal lab results 11/24/24 11/25/24 Range/Units 11:57 05:27 WBC 4.0 L 4.7 L (4.8-10.8) X10*3/uL RBC 3.37 L 3.30 L (4.60-5.80) X10*6/uL Hgb 11.7 L 11.6 L (14.0-18.0) g/dl Hct 34.5 L 34.3 L (42.0-52.0) % MCV 102.4 H 103.9 H (80.0-98.0) fL MCH 34.7 H 35.2 H (27.0-33.0) pg Plt Count 99 L 105 L (160-400) X10*3/uL Lymph % (Auto) 13.9 L 13.0 L (20-40) % [place] % (Auto) 15.9 H 13.6 H (2-11) % Lymph # (Auto) 0.6 L 0.6 L (1.2-4.9) X10*3/uL PT 17.4 H (10.9-12.4) SEC INR 1.5 H (0.9-1.1) Potassium 3.2 L (3.3-5.1) mmol/L Chloride 94 L 95 L (96-108) mmol/L Carbon Dioxide 36 H 32 H (22-29) mmol/L BUN 20 H 26 H (9-16) mg/dL Creatinine 3.78 H 4.89 H* (0.5-1.4) mg/dL Phosphorus 5.2 H (2.7-4.5) mg/dL Total Bilirubin 1.8 H (0.0-1.0) mg/dL Alkaline Phosphatase 136 H (39-117) U/L C-Reactive Protein 4.01 H (< or = 0.50) mg/dL B-Natriuretic Peptide 2669 H (<100) pg/mL Short CBC 11/24/24 11/25/24 Range/Units 11:57 05:27 WBC 4.0 L 4.7 L (4.8-10.8) X10*3/uL Hgb 11.7 L 11.6 L (14.0-18.0) g/dl Hct 34.5 L 34.3 L (42.0-52.0) % Plt Count 99 L 105 L (160-400) X10*3/uL BMP 11/24/24 11/25/24 11:57 05:27 Sodium 141 140 Potassium 3.2 L 3.8 Chloride 94 L 95 L Carbon Dioxide 36 H 32 H BUN 20 H 26 H Creatinine 3.78 H 4.89 H* Calcium 8.9 9.5 D Liver Function 11/24/24 Range/Units 11:57 Total Bilirubin 1.8 H (0.0-1.0) mg/dL AST 26 (5-37) U/L ALT 9 (0-40) U/L Alkaline Phosphatase 136 H (39-117) U/L Albumin 4.0 (3.5-5.0) g/dL All other labs normal. Assessment and Plan (1) Osteomyelitis: Qualifiers: Laterality: left Osteomyelitis location: ankle Osteomyelitis type: u nspecified type Qualified Code(s): M86.9 - Osteomyelitis, unspecified Status: Acute Plan We were consulted for Kael, for concerns of a nonhealing ulcer of the left lateral ankle/foot. He presented to the ER yesterday with concerns of the nonhealing ulcer, >1m. He denies any injuries to the area; he states his foot may have gotten irritated/rubbed against his shoe. He has been trying to get to his PCP and the wound care clinic, but has been unable to reach either to be seen. Arterial duplex US revealed severe dx in the left lower extremity; venous duplex was negative for DVT; and ankle XR revealed an inferior fibular cortex that is indistinct, raising concern for osteo. There is no acute vascular surgical intervention at this point. We recommend continuing with IV Abx. We recommend daily dressing changes with Alginate and Allevyn. We recommend a follow up outpatient. We will continue to monitor. If there are any questions or concerns, please do not hesitate to reach out to us. Procedures Date of Service Date of Service: 11/25/24
[2024-11-25] MEDS: Ammonium Lactate 12 % Cream 140 GM TUBE 1 APPL TOPICAL (13:07)
--- NOTE | 2024-11-25 14:37 | HO.PM.IMPN ---
Subjective Subjective Date of Service: 11/25/24 Interval History: seen and examined this morning follow up for left ankle wound no fever or chills pain controlled Review of Systems Review of Systems: Yes all other systems are reviewed and are negative Constitutional Constitutional: Denies chills and Denies fever(s) Cardiovascular Cardiovascular: Denies chest pain, Denies palpitations and Denies dyspnea Respiratory Respiratory: Denies cough and Denies dyspnea Endocrine Endocrine: Denies palpitations Physical Exam Vital Signs: Vital Signs: Last Vital Signs Temp 98.1 F 11/25/24 08:00 Pulse 61 11/25/24 08:00 Resp 18 11/25/24 08:00 BP 134/63 11/25/24 08:00 Pulse Ox 96 11/25/24 08:00 O2 Del Method Room Air 11/25/24 08:00 O2 Flow Rate 4 11/24/24 12:00 BMI result Body Mass Index 32.4 Const: General: cooperative, comfortable, alert and awake Nutritional Appearance: average body habitus Orientation/consciousness: patient oriented x3 Resp: Effort & Inspection: normal respiratory effort, able to speak in complete sentences, no respiratory distress and no use of accessory muscles Cardio: Rate: regular rate GI: Inspection: No distended Palpation (GI): Soft to palpation and nontender Skin: Other: chronic venous stasis skin changes b/l LE chronic scaly skin b/l LE LLE with ulcer lateral malleolus, no significant surrounding erythema Neuro: General: patient oriented x3, moves all extremities and CN's II-XI intact bilaterally Objective Data Active Medications Acetaminophen (Acetaminophen 325 Mg Tablet) 975 mg PO Q6H PRN PRN Reason: Pain, Mild 1-3,fever,headache Amlodipine Besylate (Amlodipine Besylate 5 Mg Tablet) 5 mg PO DAILY [facility]; Protocol Last Admin: 11/25/24 08:53 Dose: 5 mg Documented By: SARWAT Apixaban (Apixaban 5 Mg Tablet) 5 mg PO BID [facility] Last Admin: 11/25/24 08:53 Dose: 5 mg Documented By: SARWAT Clopidogrel Bisulfate (Clopidogrel Bisulfate 75 Mg Tablet) 75 mg PO DAILY [facility] Last Admin: 11/25/24 08:53 Dose: 75 mg Documented By: SARWAT Ferrous Sulfate (Ferrous Sulfate 324 Mg Tablet.) 324 mg PO DAILY [facility] Last Admin: 11/25/24 08:53 Dose: 324 mg Documented By: SARWAT Hydroxychloroquine Sulfate (Hydroxychloroquine Sulfate 200 Mg Tablet) 200 mg PO Q48H [facility] Last Admin: 11/24/24 22:41 Dose: 200 mg Documented By: MAGUE Piperacillin Sod/Tazobactam (Sod 2.25 gm/ Sodium Chloride) 50 mls @ 100 mls/hr IV Q8H [facility] Last Infusion: 11/25/24 14:11 Dose: Infused Documented By: SARWAT Vancomycin HCl 500 mg/ Sodium (Chloride) 110 mls @ 110 mls/hr IV ONCE ONE Stop: 11/25/24 08:59 Lactic Acid (Ammonium Lactate 12 % Cream 140 Gm Tube) 1 appl TOPICAL DAILY [facility]; Protocol Last Admin: 11/25/24 13:07 Dose: 1 appl Documented By: SARWAT Comments: late d/t being in a procedure Metoprolol Tartrate (Metoprolol Tartrate 25 Mg Tablet) 25 mg PO BID [facility]; Protocol Last Admin: 11/25/24 08:53 Dose: 25 mg Documented By: SARWAT Midodrine (Midodrine Hcl 5 Mg Tablet) 5 mg PO DAILY [facility] Last Admin: 11/25/24 08:56 Dose: Not Given Documented By: SARWAT Non-Admin Reason: Pt only takes on days he has Dialysis Pantoprazole Sodium (Pantoprazole Sodium 40 Mg/10 Ml Vial) 40 mg IVPUSH DAILY@0630 [facility] Last Admin: 11/25/24 07:01 Dose: 40 mg Documented By: MAGUE Pharmacy Consult (Consult Rx Vancomycin Dosing) 1 each MISCELLANE DAILY PRN PRN Reason: Consult order Polyethylene Glycol (Polyethylene Glycol 3350 17 Gm Powd.Pack) 17 gm PO DAILY PRN PRN Reason: Constipation Pravastatin Sodium (Pravastatin Sodium 20 Mg Tablet) 20 mg PO DAILY [facility] Last Admin: 11/25/24 08:53 Dose: 20 mg Documented By: SARWAT Sevelamer Carbonate (Sevelamer Carbonate Tablet 800 Mg Tablet) 800 mg PO TID [facility] Last Admin: 11/25/24 08:54 Dose: 800 mg Documented By: SARWAT Sodium Chloride (0.9 % Sodium Chloride Flush 3 Ml Syringe) 3 ml IVFLUSH QSHIFT [facility] Last Admin: 11/25/24 08:51 Dose: 3 ml Documented By: SARWAT Labs 11/25/24 05:27 11/25/24 05:27 Labs: Laboratory Results - last 24 hr 11/24/24 11/25/24 11:57 05:27 MCV 103.9 H MCH 35.2 H MCHC 33.8 RDW 15.0 Plt Count 105 L MPV 10.0 Immature Gran % (Auto) 0.2 Neut % (Auto) 70.6 Lymph % (Auto) 13.0 L [place] % (Auto) 13.6 H Eos % (Auto) 1.3 Baso % (Auto) 1.3 Lymph # (Auto) 0.6 L [place] # (Auto) 0.6 Eos # (Auto) 0.1 Baso # (Auto) 0.1 Abs Immat Gran (auto) 0.01 Absolute Neuts (auto) 3.3 Absolute Nucleated RBC 0.000 Nucleated RBC % (auto) 0.0 Anion Gap 17 Estim Creat Clear Calc 16.6 Estimated GFR 12 Random Glucose 81 Calcium 9.5 D Phosphorus 5.2 H Magnesium 2.0 C-Reactive Protein 4.01 H Microbiology Microbiology Results: Microbiology 11/24/24 12:10 Blood Culture - Preliminary Blood - Venous No growth after 24 hours. 11/24/24 11:57 Blood Culture - Preliminary Blood - Venous No growth after 24 hours. Assessment and Plan (1) Osteomyelitis: Status: Acute (2) ESRD (end stage renal disease): Status: Acute Plan This is a 69 y/o man with PMHx significant for PAD, PAF on eliquis, liver cirrhosis, admitted with: Left ankle ulcer secondary to PAD concerning for acute osteomyelitis Continue empiric IV antibiotic therapy with vancomycin and Zosyn reportedly unable to have MRI, bone scan pending Seen by vascular surgery, no inpatient intervention planned at this time Wound consult pending. Follows in the Wound Care Clinic, last visit June Continue wound care as recommended by vascular surgery -daily dressing changes with Alginate and Allevyn Hypokalemia. resolved. Pancytopenia (around baseline) secondary to cirrhosis Chronic liver disease. No evidence of decompensation. remote alcohol use ESRD on HD. Last hemodialysis 11/24 Continue sevelamer Nephrology consult for inpatient hemodialysis. phosphorus high. low phos diet takes midodrine only on dialysis day s Obstructive sleep apnea. Nocturnal CPAP. Essential hypertension. Continue amlodipine and metoprolol. COPD. No home oxygen. No acute symptoms. Paroxysmal atrial fibrillation. Continue Eliquis and metoprolol. h/o lupus continue plaquenil Hyperlipidemia. Continue statin. HFrEF (20-25%). No acute symptoms. no on diuretics at baseline due to ESRD on HD CAD. Continue Plavix and statin. DVT prophylaxis: On Eliquis Code status: Full Requires ongoing inpatient stay for left ankle ulcer and possible associated osteomyelitis treatment with IV antibiotic therapy Quality Stroke Does the patient have a stroke diagnosis?: No VTE Prior VTE?: No VTE Risk Level:: Medical - moderate - high VTE Device Contraindication: Treatment Not Indicated VTE Drug Contraindication: N/A - Med Ordered
[2024-11-25 15:15] VITALS: BP 140/62; PULSE 61; RESP 16; TEMP 36.6; O2SAT 98
--- NOTE | 2024-11-25 15:48 | PM.CNNEP ---
History of Present Illness Reason for Consult Consult date: 11/25/24 Reason for consult: esrd Chief Complaint Chief complaint: Left fibula osteomyelitis History of Present Illness Narrative: [facility] consulted for Dialysis management in ESRD PT 69 y/o M ESRD [facility] T[facility] adm with daibetic foot inf wiht ? osteo PMH as noted below last HD 11/24/24 Review of Systems Review of Systems All 12 systems were reviewed and normal except as noted in HPI. Yes all other systems are reviewed and are negative Constitutional: Reports as per HPI, Denies chills, Denies fever(s) and Denies weakness Reports Normal hearing present and Denies dizziness Cardiovascular: Reports as per HPI, Denies chest pain, Denies chest pain at rest, Denies chest pain with activity, Denies palpitations, Denies dyspnea and Denies dyspnea on exertion Respiratory: Reports as per HPI, Denies cough, Denies dyspnea and Denies dyspnea on exertion Gastrointestinal: Reports as per HPI, Denies abdominal pain, Denies nausea and Denies vomiting Musculoskeletal: Denies numbness Skin/Breast: Reports as per HPI, Denies erythema and Denies wounds Reports Normal hearing present, Denies dizziness, Denies numbness, Denies Sensory deficit (Neuro) and Denies weakness Psychiatric: Reports no additional psychiatric complaints Endocrine: Reports no additional endocrine complaints and Denies palpitations PMFSH Past Medical History Medical History Blood clot in arm (~04/11/24) CKD (chronic kidney disease) stage 4, GFR 15-29 ml/min Obstructive sleep apnea HTN (hypertension) Dermatitis associated with moisture from stool incontinence Clostridioides difficile diarrhea Urinary retention with incomplete bladder emptying Pacemaker Pancytopenia Incomplete emptying of bladder due to benign prostatic hyperplasia Acute kidney injury superimposed on chronic kidney disease Fistula Paroxysmal A-fib Diastolic heart failure Pulmonary hypertension Depression, major Afib Bradycardia Scrotal edema Anasarca Cirrhosis Lymphedema Type 2 diabetes mellitus with hyperglycemia Osteoarthritis Peripheral neuropathy BPH (benign prostatic hyperplasia) Venous stasis dermatitis Obesity (BMI 30-39.9) Hypercholesterolemia Peripheral vascular disease Pulmonary hypertension Essential thrombocytopenia Anemia COPD (chronic obstructive pulmonary disease) Diabetic retinopathy Chronic kidney disease Lumbar degenerative disc disease High cholesterol Edema Gout Family History Family History Father Prostate cancer CVD (cardiovascular disease) Mother Hemochromatosis Brother Motor vehicle accident Sister CAD (coronary artery disease) Maternal Grandfather Myocardial infarction Surgical History Surgical History S/P cardiac catheterization Hx of cardiac pacemaker History of bowel diversion surgery History of gastric surgery H/O prior ablation treatment History of carpal tunnel release History of bilateral cataract extraction History of tonsillectomy Social History Social History Household Members: Spouse Housing: House Do you presently have visiting nurse or other home services: No Alcohol intake: never Patient Tobacco Use Status: Former Tobacco user Tobacco use type: Cigarette e-Cigarette/Vaping Use: Former Use Second Hand Smoke Exposure: Yes Currently Displaying Signs/Symptoms of Drug Intoxication Withdrawal: No Have you been hit, kicked, punched, or otherwise hurt by someone within the past year? If so, by whom?: No Do you feel safe in your current relationship?: Yes Is there a partner from a previous relationship who is making you feel unsafe now?: No Are you made to feel afraid or neglected: No Advance Directives: Yes Advance Directives Information Provided: No Advance Directives on File: Yes Advance Directives Date on File: 11/06/22 Recently lost weight without trying: No Nutrition Risks: No Nutritional Risk Poor oral hygiene: No service: No Current occupational status: retired Cognitive needs: Yes Hearing needs: Yes Vision needs: Yes Meds Allergies Allergy/AdvReac Type Severity Reaction Status Date / Time No Known Allergies Allergy Verified 11/24/24 10:47 [No Known Allergies*] Active Medications: Current Medications Acetaminophen (Acetaminophen 325 Mg Tablet) 975 mg PO Q6H PRN PRN Reason: Pain, Mild 1-3,fever,headache Amlodipine Besylate (Amlodipine Besylate 5 Mg Tablet) 5 mg PO DAILY [facility]; Protocol Last Admin: 11/25/24 08:53 Dose: 5 mg Apixaban (Apixaban 5 Mg Tablet) 5 mg PO BID [facility] Last Admin: 11/25/24 08:53 Dose: 5 mg Clopidogrel Bisulfate (Clopidogrel Bisulfate 75 Mg Tablet) 75 mg PO DAILY [facility] Last Admin: 11/25/24 08:53 Dose: 75 mg Ferrous Sulfate (Ferrous Sulfate 324 Mg Tablet.) 324 mg PO DAILY [facility] Last Admin: 11/25/24 08:53 Dose: 324 mg Hydroxychloroquine Sulfate (Hydroxychloroquine Sulfate 200 Mg Tablet) 200 mg PO Q48H [facility] Last Admin: 11/24/24 22:41 Dose: 200 mg Piperacillin Sod/Tazobactam (Sod 2.25 gm/ Sodium Chloride) 50 mls @ 100 mls/hr IV Q8H [facility] Last Infusion: 11/25/24 14:11 Dose: Infused Vancomycin HCl 500 mg/ Sodium (Chloride) 110 mls @ 110 mls/hr IV ONCE ONE Stop: 11/25/24 08:59 Lactic Acid (Ammonium Lactate 12 % Cream 140 Gm Tube) 1 appl TOPICAL DAILY [facility]; Protocol Last Admin: 11/25/24 13:07 Dose: 1 appl Metoprolol Tartrate (Metoprolol Tartrate 25 Mg Tablet) 25 mg PO BID [facility]; Protocol Last Admin: 11/25/24 08:53 Dose: 25 mg Midodrine (Midodrine Hcl 5 Mg Tablet) 5 mg PO DAILY [facility] Last Admin: 11/25/24 08:56 Dose: Not Given Pharmacy Consult (Consult Rx Vancomycin Dosing) 1 each MISCELLANE DAILY PRN PRN Reason: Consult order Polyethylene Glycol (Polyethylene Glycol 3350 17 Gm Powd.Pack) 17 gm PO DAILY PRN PRN Reason: Constipation Pravastatin Sodium (Pravastatin Sodium 20 Mg Tablet) 20 mg PO DAILY [facility] Last Admin: 11/25/24 08:53 Dose: 20 mg Sevelamer Carbonate (Sevelamer Carbonate Tablet 800 Mg Tablet) 800 mg PO TID [facility] Last Admin: 11/25/24 15:21 Dose: 800 mg Sodium Chloride (0.9 % Sodium Chloride Flush 3 Ml Sy[facility]) [facility] Admin: 11/25/24 15:22 Dose: 3 ml Home Medications ?Medication ?Instructions ?Recorded ?Confirmed ?Last Taken ?Type polyethylene glycol 3350 17 gram 17 g PO DAILY PRN Constipation 09/24/22 11/24/24 10/13/22 History oral powder packet (Miralax) sevelamer carbonate 800 mg tablet 800 mg PO TID 04/08/23 11/24/24 Unknown History ergocalciferol (vitamin D2) 50 mcg 50 mcg PO DAILY 08/14/23 11/24/24 Unknown History (2,000 unit) capsule midodrine 5 mg tablet 5 mg PO DAILY 08/14/23 11/24/24 Unknown History apixaban 5 mg tablet (Eliquis) 5 mg PO BID 11/24/24 11/24/24 Unknown History ferrous sulfate 325 mg (65 mg 325 mg PO DAILY 11/24/24 11/24/24 Unknown History iron) tablet Physical Exam Vital Signs: Last Vital Signs Temp 97.8 F 11/25/24 15:15 Pulse 61 11/25/24 15:15 Resp 16 11/25/24 15:15 BP 140/62 H 11/25/24 15:15 Pulse Ox 98 11/25/24 15:15 O2 Del Method Room Air 11/25/24 15:15 O2 Flow Rate 4 11/24/24 12:00 BMI result Body Mass Index 32.4 Const General: cooperative, healthy appearing, comfortable, no acute distress, alert and awake Nutritional Appearance: average body habitus Orientation/consciousness: patient oriented x3 Limitations: no limitations HEENT Head: Yes normal to inspection and Yes atraumatic Ears: hearing grossly normal bilaterally General nose exam: Normal external nose present Face and sinus: Yes normal facial exam Eyes General: appearance normal, both eyes and all related structures EOM: EOMs intact bilaterally Neck Neck: Yes normal visual inspection and Yes no meningeal signs Resp Effort & Inspection: normal respiratory effort, able to speak in complete sentences, no respiratory distress and no use of accessory muscles Auscultation: clear to auscultation bilaterally Cardio Rate: regular rate Rhythm: regular rhythm Heart sounds: S1 normal heart sound present and S2 normal heart sound present Bruits: no abdominal aortic bruits, no carotid bruits, no femoral bruits and no renal bruits GI Inspection: No distended Palpation (GI): No Abdominal aortic bruit present, Soft to palpation and nontender Skin Other: chronic venous stasis skin changes b/l LE chronic scaly skin b/l LE LLE with ulcer lateral malleolus, no significant surrounding erythema Rashes: no rashes Neuro General: patient oriented x3, tone normal, moves all extremities, no meningeal signs and CN's II-XI intact bilaterally Cranial nerves: Yes CN's II-XII intact bilaterally and Yes Normal hearing present Gait exam (Neuro): Normal gait present Sensory Exam: No Sensory deficit (Neuro) Extrem Other: Bilateral lower extremities: hyperkeratosis noted from just below the knees to the tips of his toes. +2 nonpitting edema. Doppler DP pulses, unable to palpate. Left lateral ankle/foot: appx 3biq3mg wound noted on the lateral aspect of the foot, not tender to palpation. Yellow slough noted in the wound. Wound bed appears as pale pink. No drainage or bleeding noted. No rolled edges noted. Periwound is pink. General: Yes normal to inspection Results Lab Results 11/25/24 05:27 11/25/24 05:27 Lab results: Chemistry 11/24/24 11/25/24 11:57 05:27 Sodium 141 140 Potassium 3.2 L 3.8 Carbon Dioxide 36 H 32 H BUN 20 H 26 H Creatinine 3.78 H 4.89 H* Calcium 8.9 9.5 D Phosphorus 5.2 H Hematology 11/24/24 11/25/24 11:57 05:27 WBC 4.0 L 4.7 L Hgb 11.7 L 11.6 L Plt Count 99 L 105 L Assessment and Plan (1) Osteomyelitis: Qualifiers: Laterality: left Osteomyelitis location: ankle Osteomyelitis type: unspecified type Qualified Code(s): M86.9 - Osteomyelitis, unspecified Status: Acute (2) ESRD (end stage renal disease): Status: Acute Plan 69 Y/O M ESRD TTS adm with diabetic infection w ques osteo ESRD: cont HD TTS ID: [email or web address] as per hsopitalist Anemia: track and Tx with EPO per protocol Will follow w team Procedures Date of Service Date of Service: 11/25/24
[2024-11-25 19:53] VITALS: BP 130/62; PULSE 57; RESP 17; TEMP 36.3; O2SAT 97
[2024-11-26 03:25] VITALS: BP 143/64; PULSE 70; RESP 14; TEMP 36.7; O2SAT 97
[2024-11-26] MEDS: Piperacillin Sodium/Tazobactam 2.25 GM in 0.9 % Sodium Chloride 50 ML IV ×3 (05:43→21:01)
[2024-11-26 07:27] VITALS: BP 139/64; PULSE 65
[2024-11-26] MEDS: Clopidogrel Bisulfate 75 MG TABLET PO (07:29)
[2024-11-26] MEDS: 0.9 % Sodium Chloride Flush 3 ML SYRINGE IVFLUSH ×3 (07:29→21:01)
[2024-11-26] MEDS: Metoprolol Tartrate 25 MG TABLET PO ×2 (07:30→19:43)
[2024-11-26] MEDS: Midodrine HCl 5 MG TABLET PO (07:30)
[2024-11-26] MEDS: Apixaban 5 MG TABLET PO ×2 (07:30→19:43)
[2024-11-26] MEDS: Pravastatin Sodium 20 MG TABLET PO (07:30)
[2024-11-26] MEDS: Ferrous Sulfate 324 MG TABLET.DR PO (07:30)
[2024-11-26] MEDS: amLODIPine Besylate 5 MG TABLET PO (07:30)
[2024-11-26] MEDS: Sevelamer Carbonate Tablet 800 MG TABLET PO ×3 (07:30→19:43)
[2024-11-26] MEDS: Ammonium Lactate 12 % Cream 140 GM TUBE 1 APPL TOPICAL (07:31)
[2024-11-26 07:37] VITALS: BP 137/65; PULSE 64; RESP 18; TEMP 37; O2SAT 95
--- NOTE | 2024-11-26 08:08 | P.PNIM_ITS ---
Subjective Subjective Date of Service: 11/26/24 Physical Exam 2 Vital Signs: Vital Signs: Last Vital Signs Temp 98.6 F 11/26/24 07:37 Pulse 64 11/26/24 07:37 Resp 18 11/26/24 07:37 BP 137/65 11/26/24 07:37 Pulse Ox 95 11/26/24 07:37 O2 Del Method Room Air 11/26/24 07:37 O2 Flow Rate 4 11/24/24 12:00 BMI result Body Mass Index 32.4 Objective Data Active Medications Acetaminophen (Acetaminophen 325 Mg Tablet) 975 mg PO Q6H PRN PRN Reason: Pain, Mild 1-3,fever,headache Amlodipine Besylate (Amlodipine Besylate 5 Mg Tablet) 5 mg PO DAILY [facility]; Protocol Last Admin: 11/26/24 07:30 Dose: 5 mg Documented By: LUIS F Apixaban (Apixaban 5 Mg Tablet) 5 mg PO BID [facility] Last Admin: 11/26/24 07:30 Dose: 5 mg Documented By: LUIS F Clopidogrel Bisulfate (Clopidogrel Bisulfate 75 Mg Tablet) 75 mg PO DAILY [facility] Last Admin: 11/26/24 07:29 Dose: 75 mg Documented By: LUIS F Ferrous Sulfate (Ferrous Sulfate 324 Mg Tablet.) 324 mg PO DAILY [facility] Last Admin: 11/26/24 07:30 Dose: 324 mg Documented By: LUIS F Hydroxychloroquine Sulfate (Hydroxychloroquine Sulfate 200 Mg Tablet) 200 mg PO Q48H [facility] Last Admin: 11/24/24 22:41 Dose: 200 mg Documented By: MAGUE Piperacillin Sod/Tazobactam (Sod 2.25 gm/ Sodium Chloride) 50 mls @ 100 mls/hr IV Q8H [facility] Last Infusion: 11/26/24 06:13 Dose: Infused Documented By: HELLEN Vancomycin HCl 500 mg/ Sodium (Chloride) 110 mls @ 110 mls/hr IV ONCE ONE Stop: 11/25/24 08:59 Lactic Acid (Ammonium Lactate 12 % Cream 140 Gm Tube) 1 appl TOPICAL DAILY [facility]; Protocol Last Admin: 11/26/24 07:31 Dose: 1 appl Documented By: LUIS F Metoprolol Tartrate (Metoprolol Tartrate 25 Mg Tablet) 25 mg PO BID [facility]; Protocol Last Admin: 11/26/24 07:30 Dose: 25 mg Documented By: LUIS F Midodrine (Midodrine Hcl 5 Mg Tablet) 5 mg PO DAILY [facility] Last Admin: 11/26/24 07:30 Dose: 5 mg Documented By: LUIS F Pharmacy Consult (Consult Rx Vancomycin Dosing) 1 each MISCELLANE DAILY PRN PRN Reason: Consult order Polyethylene Glycol (Polyethylene Glycol 3350 17 Gm Powd.Pack) 17 gm PO DAILY PRN PRN Reason: Constipation Pravastatin Sodium (Pravastatin Sodium 20 Mg Tablet) 20 mg PO DAILY [facility] Last Admin: 11/26/24 07:30 Dose: 20 mg Documented By: LUIS F Sevelamer Carbonate (Sevelamer Carbonate Tablet 800 Mg Tablet) 800 mg PO TID [facility] Last Admin: 11/26/24 07:30 Dose: 800 mg Documented By: LUIS F Sodium Chloride (0.9 % Sodium Chloride Flush 3 Ml Syringe) 3 ml IVFLUSH QSHIFT [facility] Last Admin: 11/26/24 07:29 Dose: 3 ml Documented By: LUIS F Labs 11/25/24 05:27 11/25/24 05:27 Microbiology Microbiology Results: Microbiology 11/24/24 12:10 Blood Culture - Preliminary Blood - Venous No growth after 24 hours. 11/24/24 11:57 Blood Culture - Preliminary Blood - Venous No growth after 24 hours. Assessment and Plan (1) Osteomyelitis: Status: Acute (2) ESRD (end stage renal disease): Status: Acute Plan This is a 69 y/o man with PMHx significant for PAD, PAF on eliquis, liver cirrhosis, admitted with: Left ankle ulcer secondary to PAD concerning for acute osteomyelitis reportedly unable to have MRI, bone scan is negative for bony activity Continue empiric IV antibiotic therapy with vancomycin and Zosyn, change to PO Augmentina nd Doxy for dc Seen by vascular surgery, no inpatient intervention planned at this time Wound consult pending. [facility], last visit June Continue wound care as recommended by vascular surgery -daily dressing changes with Alginate and Allevyn Hypokalemia. resolved. Pancytopenia (around baseline) secondary to cirrhosis Chronic liver disease. No evidence of decompensation. remote alcohol use ESRD on HD. Last hemodialysis 11/24 Continue sevelamer Nephrology consult for inpatient hemodialysis. phosphorus high. low phos diet takes midodrine only on dialysis day s Obstructive sleep apnea. Nocturnal CPAP. Essential hypertension. Continue amlodipine and metoprolol. COPD. No home oxygen. No acute symptoms. Paroxysmal atrial fibrillation. Continue Eliquis and metoprolol. h/o lupus continue plaquenil Hyperlipidemia. Continue statin. HFrEF (20-25%). No acute symptoms. no on diuretics at baseline due to ESRD on HD CAD. Continue Plavix and statin. DVT prophylaxis: On Eliquis Code status: Full Requires ongoing inpatient stay for left ankle ulcer and possible associated osteomyelitis treatment with IV antibiotic therapy Quality Stroke Does the patient have a stroke diagnosis?: No VTE Prior VTE?: No VTE Risk Level:: Medical - moderate - high VTE Device Contraindication: Treatment Not Indicated VTE Drug Contraindication: N/A - Med Ordered
[2024-11-26 15:18] VITALS: BP 143/67; PULSE 64; RESP 17; TEMP 36.2; O2SAT 98
[2024-11-26 18:47] LABS: Vancomycin Random 15.2 mcg/mL (15-20)
[2024-11-26 19:38] VITALS: BP 128/60; PULSE 64; RESP 16; TEMP 36.4; O2SAT 97
[2024-11-26] MEDS: Hydroxychloroquine Sulfate 200 MG TABLET PO (21:01)
[2024-11-27 04:00] VITALS: BP 132/64; PULSE 64; RESP 18; TEMP 36.4; O2SAT 94
[2024-11-27] MEDS: Piperacillin Sodium/Tazobactam 2.25 GM in 0.9 % Sodium Chloride 50 ML IV (05:53)
[2024-11-27 08:00] VITALS: BP 110/55; PULSE 64; RESP 16; TEMP 36.6; O2SAT 98
[2024-11-27] MEDS: Pravastatin Sodium 20 MG TABLET PO (09:02)
[2024-11-27] MEDS: Clopidogrel Bisulfate 75 MG TABLET PO (09:02)
[2024-11-27] MEDS: Ammonium Lactate 12 % Cream 140 GM TUBE 1 APPL TOPICAL (09:03)
[2024-11-27] MEDS: Apixaban 5 MG TABLET PO (09:03)
[2024-11-27] MEDS: Sevelamer Carbonate Tablet 800 MG TABLET PO (09:03)
[2024-11-27] MEDS: 0.9 % Sodium Chloride Flush 3 ML SYRINGE IVFLUSH (09:04)
[2024-11-27 09:05] VITALS: BP 136/66
[2024-11-27] MEDS: amLODIPine Besylate 5 MG TABLET PO (09:05)
[2024-11-27 09:06] VITALS: BP 136/66; PULSE 68
[2024-11-27] MEDS: Metoprolol Tartrate 25 MG TABLET PO (09:06)
[2024-11-27] MEDS: Ferrous Sulfate 324 MG TABLET.DR PO (09:06)
--- NOTE | 2024-11-27 12:44 | MHC.CM.PN ---
CM MET WITH PT AND TO DISCUSS DCP THEY ARE AWARE PT IS MEDICALLY CLEARED TO DC AND WILL NEED DAILY DRESSING CHANGES THEY ALSO UNDERSTAND THE [facility] WILL NOT COME EVERY DAY STATES SHE FEELS SHE CAN ASSIST WITH DRESSING CHANGES WHEN THE [facility]NA IS NOT THERE PTS RN WILL PROVIDE A BEDSIDE TEACH FOR PT AND AND THEY WILL DC WITH SUPPLIES [facility] NOTIFIED OF DC / NEEDS [facility] PTS WILL TRANSPORT
--- NOTE | 2024-11-27 12:49 | P.DS_ITS ---
DS: Providers Provider Date of Service: 11/27/24 Date of admission: 11/24/24 14:35 Date of discharge: 11/27/24 Primary care physician: Steve Nguyen MD Consults: 11/24/24 17:40 Consult to Nephrology Routine Consulting Provider: [facility] Reason for consultation: Inpatient hemodialysis Has provider been notified: No 11/24/24 17:48 Consult to Vascular Surgery Routine Consulting Provider: [facility] [place] [facility] [place] Reason for consultation: Severe PAD, left ankle wound Has provider been notified: No 11/24/24 17:51 Consult to Wound Care Routine Reason for consultation: left ankle wound Has provider been notified: Yes 11/24/24 17:59 Consult to Wound Care Routine Reason for consultation: Left ankle ulcer Has provider been notified: No Attending physician on discharge: Oliver Aleman Discharging clinician: Liv Pittman DS: Diagnosis Discharge Diagnosis (1) Osteomyelitis: Status: Acute (2) ESRD (end stage renal disease): Status: Acute DS: Summary Hospital Course Hospital Course: From H&P on the day of admission Kael Meyer is a 69 years old man with past medical history significant for PVD, chronic dermatitis to the lower extremities, ESRD on HD (via right arm fistula; TTS), obstructive sleep apnea on CPAP, paroxysmal atrial fibrillation on Eliquis, permanent pacemaker, HFrEF (20- 25%), hypertension, peripheral vascular disease and COPD not on home oxygen presents to the emergency department complaining of left ankle pain associated ulcer. Patient stated that that also has been there for at least 5 months. He has not noted any discharge from the ulcer. Patient is a very poor historian. He denied any headache, dizziness, chest pain, shortness on breath, abdominal pain, nausea, vomiting or diarrhea. Denies fever or chills. His last hemodialysis was today and completed. 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 Denied illicit drug use. In the ED, he was found to have stable vital signs. Last blood pressure is 146/71. Blood workup showed leukocytosis of 0.04, hemoglobin 11.7 and platelets of 99 (all around baseline). Blood workup was remarkable for hypokalemia of 3.2, CO2 36, BUN 20 and creatinine of 3.78. Sodium is 141. Glucose 76 and 68. Bilirubin is 1.8 (around baseline), and BNP is 2669. Left lower extremity arterial duplex showed severe inflow disease through the interrogated arteries. Venous Doppler is negative for DVT. Left ankle x-ray showed inferior fibular cortex raising concern for osteomyelitis. Left hip x-ray showed no definitive acute fracture. ED tx: Vancomycin 2 g IV, potassium 40 mEq p.o. Zosyn 2.25 g IV Left ankle ulcer secondary to PAD concerning for acute osteomyelitis initial xray showing concern for osteomyelitis. reportedly unable to have MRI, so bone scan was obtained which was negative for osteomyelitis. Was initially treated with IV antibiotic therapy with vancomycin and Zosyn, will change to PO Augmentina and Doxy renally dosed upon discharge. Seen by vascular surgery, no inpatient intervention planned at this time, recommend outpatient follow up for PVD. Follows in the [facility], last visit June, should follow up in wound care clinic. Local wound care as recommended by vascular surgery -daily dressing changes with Alginate and Allevyn. will be discharged home with VNA services to assist with dressing changes. Time Attestation Discharge Coordination Time (in mins): 35 Quality: Safe Use of Opioids Does Pt have an Active Cancer Diagnosis on the Problem List?: No Quality: Stroke Does the patient have a stroke diagnosis?: No Physical Exam Vital Signs: Vital Signs: Last Vital Signs Temp 97.8 F 11/27/24 08:00 Pulse 68 11/27/24 09:06 Resp 16 11/27/24 08:00 BP 136/66 11/27/24 09:06 Pulse Ox 98 11/27/24 08:00 O2 Del Method Room Air 11/27/24 08:00 O2 Flow Rate 4 11/24/24 12:00 BMI result Body Mass Index 32.4 Const: General: cooperative, comfortable, alert and awake Nutritional Appearance: average body habitus Orientation/consciousness: patient oriented x3 Resp: Effort & Inspection: normal respiratory effort, able to speak in complete sentences, no respiratory distress and no use of accessory muscles Cardio: Rate: regular rate GI: Inspection: No distended Palpation (GI): Soft to palpation and nontender Skin: Other: chronic venous stasis skin changes b/l LE chronic scaly skin b/l LE LLE with ulcer lateral malleolus, no significant surrounding erythema Neuro: General: patient oriented x3, moves all extremities and CN's II-XI intact bilaterally DS: Data Data Completed and Pending Completed studies during hospitalization [Text1]: Procedures Drainage of Peritoneal Cavity, Percutaneous Approach (10/13/22) Excision of Descending Colon, Via Natural or Artificial Opening Endoscopic, Diagnostic (11/22/22) Excision of Duodenum, Via Natural or Artificial Opening Endoscopic, Diagnostic (11/22/22) Excision of Stomach, Pylorus, Via Natural or Artificial Opening Endoscopic, Diagnostic (11/22/22) Insertion of Infusion Device into Superior Vena Cava, Percutaneous Approach (10/13/22) Insertion of Pacemaker Lead into Right Atrium, Percutaneous Approach (09/24/22) Insertion of Pacemaker Lead into Right Ventricle, Percutaneous Approach (09/24/22) Insertion of Pacemaker, Dual Chamber into Chest Subcutaneous Tissue and Fascia, Open Approach (09/24/22) Insertion of Tunneled Vascular Access Device into Chest Subcutaneous Tissue and Fascia, Percutaneous Approach (10/13/22) Performance of Urinary Filtration, Intermittent, Less than 6 Hours Per Day (11/22/22) Transfusion of Nonautologous Red Blood Cells into Peripheral Vein, Percutaneous Approach (11/22/22) Ultrasonography of Superior Vena Cava, Guidance (10/13/22) Labs on day of discharge: Laboratory Results - last 24 hr 11/26/24 18:02 Random Vancomycin 15.2 Preliminary micro results at discharge 11/24/24 12:10 Blood Culture - Preliminary Blood - Venous No growth after 48 hours. 11/24/24 11:57 Blood Culture - Preliminary Blood - Venous No growth after 48 hours. Discharge Plan Discharge Anticipated Discharge Date/Time: 11/27/24 12:36 Patient Disposition: Home Health Service Discharge Diagnosis: left ankle wound Referrals: Son MCCALL [Outside] - 1 Week Joni Cole MD [Physician] - 1 Week Po,Steve Dawn MD [Primary Care Provider] - 1 Week Herlinda Georges MD [Physician] - 1 Week Discharge Medications: New amoxicillin-pot clavulanate [Augmentin] 500-125 mg tablet 1 tab PO DAILY Qty: 7 0RF doxycycline hyclate 100 mg tablet 100 mg PO BID Qty: 14 0RF Continued (DME) kylah.stocking,knee,reg,xlrg Misc See Rx Instructions .ROUTE .MEDSUPPLY Qty: 12 0RF Rx Instructions: As directedcompression stockings bilateral adjustable lower extremity garments (DME) compr.stocking,thigh,reg,x-lrg Misc See Rx Instructions .Route Qty: 12 0RF Rx Instructions: As directed 20-30 mm HG (DME) Juxta Lite Compression wraps - Adjustable -for chronic ulcers with open wounds bilat lower extremities See Rx Instructions .Route .MEDSUPPLY Qty: 2 0RF Rx Instructions: As directed (DME) lancets [FreeStyle Lancets] 28 gauge misc See Rx Instructions .ROUTE .MEDSUPPLY Qty: 200 3RF Rx Instructions: As directed check BS BID (DME) blood-glucose meter [FreeStyle Lite Meter] Kit See Rx Instructions .ROUTE .MEDSUPPLY Qty: 1 0RF Rx Instructions: As directed (DME) FreeStyle Lite Strips Strip See Rx Instructions .ROUTE .MEDSUPPLY Qty: 200 3RF Rx Instructions: As directed check the BS BID amlodipine 5 mg tablet 5 mg PO DAILY Qty: 90 1RF metoprolol tartrate 25 mg tablet 25 mg PO BID Qty: 180 3RF hydroxychloroquine 200 mg tablet 200 mg PO Q OTHER DAY Qty: 30 2RF pravastatin 20 mg tablet 20 mg PO DAILY Qty: 90 3RF polyethylene glycol 3350 [Miralax] 17 gram powder in packet 17 g PO DAILY PRN (Reason: Constipation) ferrous sulfate 325 mg (65 mg iron) tablet 325 mg PO DAILY Eliquis 5 mg tablet 5 mg PO BID (DME) APAP 5-15 cm H20 humidified AIR See Rx Instructions .Route .MEDSUPPLY Qty: 1 0RF Rx Instructions: As directed sevelamer carbonate 800 mg tablet 800 mg PO TID ergocalciferol (vitamin D2) 50 mcg (2,000 unit) capsule 50 mcg PO DAILY midodrine 5 mg tablet 5 mg PO DAILY clopidogrel 75 mg tablet 75 mg PO DAILY Qty: 120 3RF Discharge Orders: Discharge Order (Routine); Ordered 11/27/24 Ordered By: Liv Pittman Activity on Discharge: As tolerated Stand Alone Forms: Patient Portal Discharge page Print Language: Ghanaian Care Plan Goals: see below Health Concerns: Left lower extremity ulcer - bone involvement ruled out Plan of Treatment: complete course of antibiotics - renally dosed, take after dialysis on dialysis call to schedule follow up appointment with wound care clinic Call to schedule follow-up appointment with vascular surgery daily dressing changes - daily dressing changes with Alginate and Allevyn Assessment: See discharge summary
--- NOTE | 2024-11-27 12:49 | W.MHC.F2F ---
Service Date Service Date: 11/27/24 Encounter Date of encounter: 11/27/24 Reasons for Services Signs and symptoms assessed: needs group home for wound care Reason for group home: wound care (daily dressing changes with Alginate and Allevyn) Homebound: Leaving the home is medically contraindicated at this time without the asist of a device and/or another person due th the listed conditions above and below. Reason homebound: weakness related to hospital stay Certification: Based on the above findings, I certify that this patient is confined to the home and needs intermittent group home care, physical therapy and/or speech therapy, or continues to need occupational therapy. The patient is under my care, and I have initiated the establishment of the plan of care. The patient will be followed by a physician who will periodically review the plan of care. Time Spent With Patient Time: Total time managing care of this patient today ____ minutes.
[2024-11-27 15:04] VITALS: BP 126/62; PULSE 65; RESP 16; TEMP 36.2; O2SAT 98
== END 2024-11-27 15:50 | disposition home health service (06) | DRG 299 ==
LOC: HO.ED 14:19 → HO.EDOVER 14:36 → HO.S3 15:30
PROVIDERS: Physician Assistant; Admitting Provider Internal Medicine; Emergency Provider Emergency Medicine; PCP Internal Medicine; Visit Provider Physician Assistant Medical
DX: E11.51 Type 2 diabetes mellitus with diabetic peripheral angiopathy without gangrene (principal); N18.6 End stage renal disease; I13.2 Hypertensive heart and chronic kidney disease with heart failure and with stage 5 chronic kidney disease, or end stage renal disease; L97.329 Non-pressure chronic ulcer of left ankle with unspecified severity; I50.22 Chronic systolic (congestive) heart failure; D61.818 Other pancytopenia; I70.243 Atherosclerosis of native arteries of left leg with ulceration of ankle; E87.6 Hypokalemia; E11.22 Type 2 diabetes mellitus with diabetic chronic kidney disease; I25.10 Atherosclerotic heart disease of native coronary artery without angina pectoris; E78.5 Hyperlipidemia, unspecified; K21.9 Gastro-esophageal reflux disease without esophagitis; K74.60 Unspecified cirrhosis of liver; I48.0 Paroxysmal atrial fibrillation; D63.1 Anemia in chronic kidney disease; M32.9 Systemic lupus erythematosus, unspecified; G47.33 Obstructive sleep apnea (adult) (pediatric); Z95.0 Presence of cardiac pacemaker; Z98.84 Bariatric surgery status; Z99.2 Dependence on renal dialysis; Z87.891 Personal history of nicotine dependence; Z79.02 Long term (current) use of antithrombotics/antiplatelets; Z79.01 Long term (current) use of anticoagulants; Z79.899 Other long term (current) drug therapy
CPT/HCPCS: 36415; 73502; 73610; 78315; 80048; 80053; 80202; 82947; 83605; 83735; 83880; 84100; 85025; 85610; 86140; 87040; 90999; 93926; 93971; 99285; A9503; J2470; J2543; J3370

== ENCOUNTER → 2024-11-24 11:33 | Outpatient (BNV) | payer MEDICARE, SELFPAY | PROVIDERS: Emergency Provider Emergency Medicine; PCP Internal Medicine; Visit Provider Radiology Diagnostic Radiology | DX: S91.002A Unspecified open wound, left ankle, initial encounter (principal); R23.9 Unspecified skin changes; M21.752 Unequal limb length (acquired), left femur; I73.9 Peripheral vascular disease, unspecified | CPT/HCPCS: 73502; 73610; 93926; 93971 ==

== ENCOUNTER 2024-11-24 14:35 | Outpatient (BNV) | payer MEDICARE, SELFPAY | END 2024-11-25 10:03 | PROVIDERS: Admitting Provider Internal Medicine; Emergency Provider Emergency Medicine; PCP Internal Medicine; Visit Provider Radiology Diagnostic Radiology | DX: E11.9 Type 2 diabetes mellitus without complications (principal) | CPT/HCPCS: 78315 ==

== ENCOUNTER → 2024-11-24 14:35 | Outpatient (BNV) | payer MEDICARE, SELFPAY | PROVIDERS: Admitting Provider Internal Medicine; Emergency Provider Emergency Medicine; PCP Internal Medicine; Visit Provider Internal Medicine | DX: L97.319 Non-pressure chronic ulcer of right ankle with unspecified severity (principal); L97.329 Non-pressure chronic ulcer of left ankle with unspecified severity; M86.9 Osteomyelitis, unspecified | CPT/HCPCS: 99223; 99232 ==

== ENCOUNTER → 2024-11-24 14:35 | Outpatient (BNV) | payer MEDICARE, SELFPAY | PROVIDERS: Admitting Provider Internal Medicine; Emergency Provider Emergency Medicine; PCP Internal Medicine; Visit Provider Physician Assistant Surgical | DX: M86.9 Osteomyelitis, unspecified (principal) | CPT/HCPCS: 99222 ==

== ENCOUNTER 2024-12-01 13:26 | Outpatient (AMB) | payer MEDICARE, SELFPAY ==
--- NOTE | 2024-12-01 13:38 | A.OFFVIS_ITS ---
Vital Signs 12/01/24 13:41 Height 5 ft 10 in Weight 231 lb 7.766 oz BMI 33.2 Intake Visit Reasons: follow up for left foot non-healing ulcer Intake Note: hospital follow up for arterial US and Left LE non-healing ulcer. Has visiting nurses 3 x per week to do dressing changes. Had alginate and bandage over wound on Left ankle. Does have bilateral LE discoloration. Accompanied by: Self / Same As Patient Allergies No Known Allergies (No Known Allergies*) Allergy (Verified 12/01/24 13:45) HPI HPI follow up for left foot non-healing ulcer: Details: Kael is presenting today as a hospital follow up for nonhealing ulcer of the left ankle. He has VNA services at home 3/week and continues with HD 3/week. He states that the nurses are putting silvadene cream on it and applying a bandage, which he states does not stay on well. He denies any new ulcers/wounds. He has no new concerns today. [facility] Medical History Blood clot in arm (~04/11/24) CKD (chronic kidney disease) stage 4, GFR 15-29 ml/min Obstructive sleep apnea HTN (hypertension) Dermatitis associated with moisture from stool incontinence Clostridioides difficile diarrhea Urinary retention with incomplete bladder emptying Pacemaker Pancytopenia Incomplete emptying of bladder due to benign prostatic hyperplasia Acute kidney injury superimposed on chronic kidney disease Fistula Paroxysmal A-fib Diastolic heart failure Pulmonary hypertension Depression, major Afib Bradycardia Scrotal edema Anasarca Cirrhosis Lymphedema Type 2 diabetes mellitus with hyperglycemia Osteoarthritis Peripheral neuropathy BPH (benign prostatic hyperplasia) Venous stasis dermatitis Obesity (BMI 30-39.9) Hypercholesterolemia Peripheral vascular disease Pulmonary hypertension Essential thrombocytopenia Anemia COPD (chronic obstructive pulmonary disease) Diabetic retinopathy Chronic kidney disease Lumbar degenerative disc disease High cholesterol Edema Gout Surgical History S/P cardiac catheterization Hx of cardiac pacemaker History of bowel diversion surgery History of gastric surgery H/O prior ablation treatment History of carpal tunnel release History of bilateral cataract extraction History of tonsillectomy Family History Father Prostate cancer CVD (cardiovascular disease) Mother Hemochromatosis Brother Motor vehicle accident Sister CAD (coronary artery disease) Maternal Grandfather Myocardial infarction Social History Household Members: Spouse Housing: House Do you presently have visiting nurse or other home services: No Alcohol intake: never Patient Tobacco Use Status: Former Tobacco user Tobacco use type: Cigarette e-Cigarette/Vaping Use: Former Use Second Hand Smoke Exposure: Yes Advance Directives Date on File: 11/06/22 service: No Current occupational status: retired Cognitive needs: Yes Hearing needs: Yes Vision needs: Yes Review of Systems Const Reports as per HPI and Denies weakness ENT Reports Normal hearing present and Denies dizziness Card Reports as per HPI, Denies chest pain, Denies chest pain at rest, Denies chest pain with activity, Denies dyspnea and Denies dyspnea on exertion Resp Reports as per HPI, Denies cough, Denies dyspnea and Denies dyspnea on exertion GI Reports as per HPI, Denies abdominal pain, Denies nausea and Denies vomiting Musc Denies numbness Skin/Breast Reports as per HPI, Denies erythema and Denies wounds Neuro Reports Normal hearing present, Denies dizziness, Denies numbness, Denies Sensory deficit (Neuro) and Denies weakness Psych Reports no additional complaints Endo Reports no additional complaints Physical Exam Vital Signs: BMI result Body Mass Index 33.2 Const General: healthy appearing and no acute distress Orientation/consciousness: patient oriented x3 HEENT Head: Yes normal to inspection Ears: hearing grossly normal bilaterally Mouth: Normal oral and palatal mucosa present Resp Effort & Inspection: normal respiratory effort and able to speak in complete sentences Auscultation: clear to auscultation bilaterally Cardio Jugular venous distension: no JVD Rate: regular rate Rhythm: regular rhythm Heart sounds: S1 normal heart sound present and S2 normal heart sound present Bruits: no abdominal aortic bruits, no carotid bruits, no femoral bruits and no renal bruits Peripheral pulses: Peripheral pulses 2+ throughout GI Inspection: Yes normal to inspection Palpation (GI): No Abdominal aortic bruit present Skin General skin exam: no rashes or lesions noted Wounds: no wounds Hair: normal Neuro General: patient oriented x3 Cranial nerves: Yes Normal hearing present Cognition (Neuro): normal cognition Gait exam (Neuro): Normal gait present Motor exam (neuro): 5/5 motor strength present throughout Sensory Exam: No Sensory deficit (Neuro) Extrem Other: Bilateral lower extremities: hyperkeratosis noted from just below the knees to the tips of his toes. +2 nonpitting edema. Unable to palpate DP pulses, but foot is warm and pink. Left lateral ankle/foot: appx [id number] wound noted on the lateral aspect of the foot, not tender to palpation. Yellow slough noted in the wound. Wound bed appears as pale pink. No drainage or bleeding noted. No rolled edges noted. Periwound is pink. General: Yes normal to inspection, Yes full ROM, Yes capillary refill normal and Yes normal gait Assessment & Plan Assessment & Plan (1) Ulcer of left ankle: Code(s): L97.329 - Non-pressure chronic ulcer of left ankle with unspecified severity Category: Medical Qualifiers: Non-pressure ulcer stage: unspecified non-pressure ulcer stage Qualified Code(s): L97.329 - Non-pressure chronic ulcer of left ankle with unspecified severity Plan: Kael is presenting today on a hospital follow up s/p admission for nonhealing left ankle ulcer with osteo. He has had this ulcer for >1m; there was no precipitating injury or wound. He denies any pain in the area. We have changed the dressing to be alginate, 4x4, and kerlix wrap, to be changed 3/week with VNA services. We recommend not using Silvadene on the site. We will have him follow up next week with Dr Cole for a possible need for an angio due to disease noted on arterial duplex, found when he was in the hospital. We will have him return next week, after his dialysis. Thank you for allowing us to participate in the [facility]'s care. If there are any questions or concerns, please do not hesitate to reach out to us. Coding Level of Care Code Est Pt Level 3 (28196) Diagnoses Lower limb ulcer, ankle, left, with unspecified severity L97.329 Non-pressure ulcer stage: unspecified non-pressure ulcer stage
[2024-12-01 13:41] VITALS: BMI 33.2
--- OUTSIDE RECORDS SUMMARY | 2024-12-01 14:34 | XMS_ITS | Clinical Summary ---
Author Organization [facility] Address [address] [place] [phone] Phone Care Team Providers Care Rn Occupational Health Name Role Phone Steve Nguyen MD Primary Care Provider [phone] Allergies Active Allergy Reactions Criticality Noted Date Comments Ferumoxytol Other (see comments) High 04/02/2021 Chest pain, chills Other reaction(s): Other (see comments) Chest pain, chills Medications isosorbide mononitrate (IMDUR) 30 MG 24 hr tablet Take 30 mg by mouth 1 (one) time each day 2 Active Vitamin D, Ergocalciferol, 55248 units capsule Take 1 capsule by mouth [...] tablet 2 4 Active epoetin gaby (EPOGEN,PROCRIT) 92967 UNIT/ML injection Inject 10,000 Units under the [...] Encounters Date Type Department Care Team Description 12/01/2024 TCM in Dialysis Clinic [facility] [address] [phone] Ezequiel Reyes MD 12/01/2024 Treatment [facility] [address] [phone] Ezequiel Reyes MD End stage renal disease; Dependence on renal dialysis 11/24/2024 Treatment [facility] [place] [phone] [phone] Ezequiel Reyes MD End stage renal disease; Dependence on renal dialysis 11/15/2024 Treatment [facility] [place] [phone] [phone] Ezequiel Reyes MD End stage renal disease; Dependence on renal dialysis 11/10/2024 Treatment [facility] [address] [phone] Ezequiel Reyes MD End stage renal disease; Dependence on renal dialysis 11/03/2024 Treatment [facility] [address] [phone] Ezequiel Reyes MD End stage renal disease; Dependence on renal dialysis 10/31/2024 Telephone [facility] [address] [place] [phone] Genna Sauceda 10/28/2024 10:00 AM EDT Procedure visit [facility] [address] [place] [phone] Juan Buckner MD 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, implants and grafts, initial encounter [T85.858A] (Primary Dx) 10/27/2024 Treatment [facility] [address] [phone] Ezequiel Reyes MD End stage renal disease; Dependence on renal dialysis 10/26/2024 Telephone [facility] [address] [place] [phone] Tisha Goff 10/20/2024 Treatment [facility] [address] [phone] Ezequiel Reyes MD End stage renal disease; Dependence on renal dialysis 10/06/2024 Treatment [facility] [address] [phone] Ezequiel Reyes MD End stage renal disease; Dependence on renal dialysis 10/01/2024 Treatment [facility] [address] [phone] Ezequiel Reyes MD End stage renal disease; Dependence on renal dialysis 09/29/2024 11:30 AM EDT Office Visit [facility] [address] [place] [address] [place] [phone] Milton Stone MD End stage renal disease (HCC) (Primary Dx); Abscess of skin and/or subcutaneous tissue 09/28/2024 Telephone [facility] [address] [place] [address] [place] [phone] Coy Pamela 09/20/2024 Treatment [facility] [address] [phone] Ezequiel Reyes MD End stage renal disease; Dependence on renal dialysis 09/13/2024 Treatment [facility] [address] [phone] Ezequiel Reyes MD End stage renal disease; Dependence on renal dialysis 09/06/2024 Treatment [facility] [address] [phone] Ezequiel Reyes MD End stage renal disease; Dependence on renal dialysis 09/01/2024 Treatment [facility] [address] [phone] Ezequiel Reyes MD End stage renal disease; [...] 63 10/28/2024 9:28 AM EDT Temperature 36.4 C (97.5 F) 10/28/2024 9:28 AM EDT Respiratory Rate 14 10/28/2024 9:28 AM EDT [...] visit [facility] [address] [place] [address] [place] [phone] Health Maintenance Due Date Last Done [...] Foot Exam 08/23/2019 Diabetes: Hemoglobin A1C 12/15/2024 042 025, 06/23/2024, 08/05/2022, Additional history exists Influenza Vaccine (Season Ended) 2025 03/28/2021, 03/26/2021, 04/28/2019, Additional history exists Pneumococcal Vaccine: Peds ( 0 to 5 Years) and At-Risk Patients (6 to 49 Years) Discontinued 01/28/2018, 12/13/2013, 05/04/2012 Procedures Procedure Name Priority Date/Time Associated Diagnosis Comments LIH () Routine 11/29/2024 3:00 AM EDT PHOSPHATE ( PHOSPHORUS) Routine 11/29/2024 3:00 AM EDT LIH () Routine 11/24/2024 3:00 AM EDT POTASSIUM Routine 11/24/2024 3:00 AM EDT HEPATITIS B SURFACE ANTIGEN [...] DATE (HC) Routine 09/03/2024 3:00 AM EDT from Last 3 Months Results * LIH (11/29/2024 3:00 AM EDT) Only the most recent of15 resultswithin the time period is included. Lipemia Normal Normal [facility] Icterus Normal Normal [facility] Hemolysis Normal Normal [facility] 11/29/2024 3:00 AM EDT 11/30/2024 1:34 PM EDT Ezequiel Reyes MD LAB HISTORICA [id number] RESULTS Final Result Performing Organization Address City/[facility]/ZIP Co de Phone Number [facility]PS [facility] [address] [place] [address] * (ABNORMAL) Phosphorus (11/29/2024 3:00 AM EDT) Only the most recent of3 resultswithin the time period is included. Phosphorus, Serum 6.6(H) 2.5 - 5.0 mg/dL [facility] 11/29/2024 3:00 AM EDT 11/30/2024 1:34 PM EDT Ezequiel Reyes MD LAB BLOOD ORDERABLES Final Result Performing Organization Address City/[facility]/ZIP Co de Phone Number [facility] [address] [place] [address] * Potassium (11/24/2024 3:00 AM EDT) Only the most recent of10 resultswithin the time period is included. Potassium 3.5 3.4 - 5.0 mEq/L [facility] 11/24/2024 3:00 AM EDT 11/25/2024 12:20 PM EDT us Ezequiel Reyes MD LAB BLOOD ORDERABLES Final Result Performing Organization Address [facility] de Phone Number [facility] [address] [place] [address] * (ABNORMAL) Kt/V Natural Log, URR (11/17/2024 3:00 AM EDT) Only the most recent of3 resultswithin the time period is included. Treatment [...] PM EDT Ezequiel Reyes MD LAB HISTORICA [id number] RESULTS Final Result Performing Organization Address [facility] de Phone Number [facility] [address] [place] [address] * (ABNORMAL) Calcium Phosphorus Product, Adjusted (11/17/2024 [...] EDT us Ezequiel Reyes MD LAB HISTORICA [id number] RESULTS Final Result Performing Organization Address City/[facility] Co de Phone Number [facility] [address] [place] [address] * Hepatitis B Surface Ag w/Reflex Confirmation (11/17/2024 3:00 AM EDT) Only the most recent of3 resultswithin the time period is included. Hep B Surface Antigen Negative Negative [facility] 11/17/2024 3:00 AM EDT 11/18/2024 1:30 PM EDT us Ezequiel Reyes MD LAB BLOOD ORDERABLES Final Result Performing Organization Address [facility] de Phone Number [facility] [address] [place] [address] * BUN/CREATININE RATIO (11/17/2024 3:00 AM EDT) Only the most recent of2 resultswithin the time period is included. BUN/Creatinine Ratio 7.1 <=23.0 [facility] 11/17/2024 3:00 AM EDT 11/18/2024 1:30 PM EDT us Ezequiel Reyes MD LAB HISTORICA [id number] RESULTS Final Result Performing Organization Address [facility] Co de Phone Number [facility] [address] [place] [address] * (ABNORMAL) TSAT (11/17/2024 3:00 AM EDT) Only the most recent of3 resultswithin the time period is included. Iron 88 65 - 175 ug/dL [facility] [...] us Ezequiel Reyes MD LAB BLOOD ORDERABLES Edited Result - Final [facility] [address] [place] [address] * (ABNORMAL) CBC and Differential (11/17/2024 3:00 [...] 3:00 AM EDT 11/18/2024 1:36 PM EDT Ezqeuiel Reyes MD LAB BLOOD ORDERABLES Final Result Performing Organization Address City/[facility] Co de Phone Number [facility] [address] [place] [address] * ALT (11/17/2024 3:00 AM EDT) Only the most recent of3 resultswithin the time period is included. ALT (SGPT) 13 10 - 49 U/L [facility] 11/17/2024 3:00 AM EDT 11/18/2024 1:30 PM EDT Ezequiel Reyes MD LAB BLOOD ORDERABLES Final Result Performing Organization Address [facility] de Phone Number [facility] [address] [place] [address] * AST (11/17/2024 3:00 AM EDT) Only the most recent of3 resultswithin the time period is included. AST (SGOT) 20 <34 U/L [facility] 11/17/2024 3:00 AM EDT 11/18/2024 1:30 PM EDT Ezequiel Reyes MD LAB BLOOD ORDERABLES Final Result Performing Organization Address [facility] de Phone Number [facility] [address] [place] [address] * Protein, total (11/17/2024 3:00 AM EDT) Only the most recent of3 resultswithin the time period is included. Total Protein 7.0 6.4 - 8.9 g/dL [facility] 11/17/2024 3:00 AM EDT 11/18/2024 1:30 PM EDT us Ezequiel Reyes MD LAB BLOOD ORDERABLES Final Result Performing Organization Address [facility] Co de Phone Number [facility] [address] [place] [address] * (ABNORMAL) Alkaline phosphatase (11/17/2024 3:00 AM EDT) Only the most recent of3 resultswithin the time period is included. Alkaline Phosphatase 130(H) 46 - 116 U/L [facility] 11/17/2024 3:00 AM EDT 11/18/2024 1:30 PM EDT us Ezequiel Reyes MD LAB BLOOD ORDERABLES Final Result Performing Organization Address [facility] de Phone Number [facility] [address] [place] [address] * Magnesium (11/17/2024 3:00 AM EDT) Only the most recent of3 resultswithin the time period is included. Magnesium 2.1 1.9 - 2.7 mg/dL [facility] 11/17/2024 3:00 AM EDT 11/18/2024 1:30 PM EDT us Ezequiel Reyes MD LAB BLOOD ORDERABLES Final Result Performing Organization Address [facility] Co de Phone Number [facility] [address] [place] [address] * (ABNORMAL) Lactate dehydrogenase (11/17/2024 3:00 AM EDT) Only the most recent of3 resultswithin the time period is included. LDH 255(H) 120 - 246 U/L [facility] 11/17/2024 3:00 AM EDT 11/18/2024 1:30 PM EDT us Ezequiel Reyes MD LAB BLOOD ORDERABLES Final Result Performing Organization Address [facility] de Phone Number [facility] [address] [place] [address] * Glucose, random (11/17/2024 3:00 AM EDT) Only the most recent of3 resultswithin the time period is included. Glucose 84 70 - 99 mg/dL [facility] Comment: ADA guidelines outline the following fasting glucose ranges: Normal: <100 Prediabetes: 100-125 Diabetes: >125 11/17/2024 3:00 AM EDT 11/18/2024 1:30 PM EDT us Ezequiel Reyes MD LAB BLOOD ORDERABLES Final Result Performing Organization Address [facility] de Phone Number [facility] [address] [place] [address] * (ABNORMAL) Ferritin (11/17/2024 3:00 AM EDT) Only the most recent of3 resultswithin the time period is included. Ferritin 1,063(H) 22 - 322 ng/mL [facility] 11/17/2024 3:00 AM EDT 11/18/2024 1:30 PM EDT us Ezequiel Reyes MD LAB BLOOD ORDERABLES Final Result Performing Organization Address [facility] de Phone Number [facility] [address] [place] [address] * (ABNORMAL) Creatinine, serum (11/17/2024 3:00 AM EDT) Only the most recent of3 resultswithin the time period is included. Creatinine 6.22(H) 0.70 - 1.30 mg/dL [facility] 11/17/2024 3:00 AM EDT 11/18/2024 1:30 PM EDT us Ezequiel Reyes MD LAB BLOOD ORDERABLES Final Result Performing Organization Address [facility] de Phone Number [facility] [address] [place] [address] * Bilirubin, total (11/17/2024 3:00 AM EDT) Only the most recent of3 resultswithin the time period is included. Total Bilirubin 1.1 0.3 - 1.2 mg/dL [facility] 11/17/2024 3:00 AM EDT 11/18/2024 1:30 PM EDT Ezequiel Reyes MD LAB BLOOD ORDERABLES Final Result Performing Organization Address [facility] de Phone Number [facility] [address] [place] [address] * (ABNORMAL) Electrolyte panel (11/17/2024 3:00 AM [...] BLOOD ORDERABLES Final Result Performing Organization Address [facility] Co de Phone Number [facility] [address] [place] [address] * (ABNORMAL) Hemoglobin (11/03/2024 3:00 AM EDT) Only the most recent of3 resultswithin the time period is included. Hgb 10.9(L) 13.7 - 17.5 g/dL [facility] Hemoglobin x 3 32.7(L) 41.1 - 52.5 g/dL [facility] 11/03/2024 3:00 AM EDT 11/04/2024 12:20 PM EDT us Ezequeil Reyes MD LAB BLOOD ORDERABLES Final Result Performing Organization Address [facility] de Phone Number [facility] [address] [place] [address] * Collection Date (09/24/2024 3:00 AM EDT) Only the most recent of2 resultswithin the time period is included. Collection Date See Comment [facility] Comment: Patient sample received may exceed specimen stability, based on the collection date electronically provided. When reviewing patient results, verify collection information and consider specimen stability before acting on any critical or panic results. 09/24/2024 3:00 AM EDT us Ezequiel Reyes MD LAB HISTORICA [id number] RESULTS Final Result Performing Organization Address [facility] de Phone Number [facility] [address] [place] [address] * PTH, Intact (09/15/2024 3:00 AM EDT) Pathologist [facility] PTH, Intact 253 160 - 721 pg/mL [facility] Comment: Suggested (KDIGO) ESRD maintenance range is two to nine times the upper normal limit (80.1 pg/mL) for the laboratory. 09/15/2024 3:00 AM EDT 09/17/2024 1:30 PM EDT us Ezequiel Reyes MD LAB BLOOD ORDERABLES Final Result Performing Organization Address [facility] de Phone Number [facility] [address] [place] [address] * Hemoglobin A1c (09/15/2024 3:00 AM EDT) Hemoglobin A1C 5.1 <5.7 % [facility] Comment: Methodology: Enzymatic HbA1c (NGSP %) Suggested Diagnosis >6.4% Diabetic 5.7-6.4% Pre-Diabetic <5.7% Non-Diabetic Diabetic Glucose Control Evaluation: Therapeutic action suggested at >8.0% ADA recommends a glycemic goal of <7.0% 09/15/2024 3:00 AM EDT 09/17/2024 1:27 PM EDT Ezequiel Reyes MD LAB BLOOD ORDERABLES Final Result Performing Organization Address City/[facility] Co de Phone Number [facility] [address] [place] [address] * (ABNORMAL) Lipid panel (09/15/2024 3:00 AM EDT) Cholesterol 114 <200 mg/dL [facility] Comment: Optimal: <200 Borderline: 200-239 Higher Risk: >239 Triglycerides 74 <150 mg/dL [facility] Comment: Optimal: <150 Borderline High: 150-199 High: 200-499 Very High: >499 HDL 43(A) >59 mg/dL [facility] Comment: Desirable: >59 Higher Risk: <40 LDL-Calc 56 <100 mg/dL [facility] Comment: Optimal: <100 Above Optimal: 100-129 Borderline High: 130-159 High: 160-189 Very High: >189 VLDL Cholesterol Ravi 15 <30 mg/dL [facility] Comment: Optimal: <30 Borderline High: 30-39 High: 40-99 Very High: >99 Chol/HDL Ratio 2.7 <3.3 [facility] Comment: Optimal: <3.3 Higher Risk: >6.2 09/15/2024 3:00 AM EDT 09/17/2024 1:30 PM EDT Ezequiel Reyes MD LAB BLOOD ORDERABLES Final Result Performing Organization Address [facility] Co de Phone Number [facility] [address] [place] [address] from Last 3 Months Insurance [id number] Medicare Medicare Care Teams Rn Occupational Health Relationship Specialty Start Date End Date Steve Nguyen MD [address] [place], [place] PCP - General 04/19/19
== END 2024-12-01 14:06 | disposition home or self-care (01) ==
PROVIDERS: PCP Internal Medicine; Visit Provider Physician Assistant Surgical
DX: L97.329 Non-pressure chronic ulcer of left ankle with unspecified severity (principal)
CPT/HCPCS: 99213

== ENCOUNTER → 2024-12-01 13:26 | Outpatient (BNVA) | payer MEDICARE, SELFPAY | PROVIDERS: PCP Internal Medicine; Visit Provider Physician Assistant Surgical | DX: E11.622 Type 2 diabetes mellitus with other skin ulcer (principal); L97.329 Non-pressure chronic ulcer of left ankle with unspecified severity; M86.9 Osteomyelitis, unspecified | CPT/HCPCS: 99212 ==

== ENCOUNTER 2024-12-07 12:50 | Outpatient (AMB) | payer MEDICARE, SELFPAY ==
--- NOTE | 2024-12-07 12:55 | A.OFFPC_ITS ---
Vital Signs 12/07/24 13:00 Height 5 ft 10 in Weight 232 lb BMI 33.3 BP 120/66 Blood Pressure Location Lt brachial Position Sitting Pulse 66 Pulse Source Pulse Oximeter Temp 97.3 F Temp Source Temporal Artery Scan Pulse Oximetry (%) 91 L Oxygen Delivery Method Room Air Intake Visit Reasons: [facility] 11/27 Osteomyelitis Intake Note: Patient is here for hospital discharge and TCM follow up. Patient was discharged from [facility] on 11/27/24. Line Walker Required: No Box Covering Machine Operator: Not Required per policy Accompanied by: Self / Same As Patient Allergies No Known Allergies (No Known Allergies*) Allergy (Verified 12/07/24 13:11) Medication List - Last Reconciled 12/07/24 by Lucy Herrera PA-C amlodipine 5 mg PO DAILY [APAP 5-15 cm H20 humidified AIR As directed] apixaban (Eliquis) 5 mg PO BID blood sugar diagnostic (FreeStyle Lite Strips) As directed check the BS BID blood-glucose meter (FreeStyle Lite Meter kit) As directed clopidogrel 75 mg PO DAILY compr.stocking,thigh,reg,x-lrg As directed 20-30 mm HG kylah.stocking,knee,reg,xlrg As directedcompression stockings bilateral adjustable lower extremity garments doxycycline hyclate 100 mg PO BID ergocalciferol (vitamin D2) 50 mcg PO DAILY ferrous sulfate 325 mg PO DAILY hydroxychloroquine 200 mg PO Q OTHER DAY [Juxta Lite Compression wraps - Adjustable -for chronic ulcers with open wounds bilat lower extremities As directed] lancets (FreeStyle Lancets) As directed check BS BID metoprolol tartrate 25 mg PO BID midodrine 5 mg PO DAILY polyethylene glycol 3350 (Miralax) 17 grams PO DAILY PRN pravastatin 20 mg PO DAILY sevelamer carbonate 800 mg PO TID Tobacco use date assessed: 12/07/24 Fall risk assessment: No Falls in past year Last assessed Fall Risk: 12/07/24 Dental Screening Dental Screen Date: 09/14/24 HPI [facility] 11/27 Osteomyelitis HPI Details 69-year-old male with past medical histo ry of peripheral vascular disease, hypercholesterolemia, GERD, depression, AFib, hypertension, lupus, cardiomyopathy, obstructive sleep apnea, coronary artery disease last seen 09/[address] Nguyen coming in for hospital discharge follow up. In review of the notes, patient was seen in [facility] ED 11/24/2024 for left ankle ulcer secondary to PD concerning for osteomyelitis treated with IV antibiotic therapy switch to p.o. Augmentin and doxycycline. Vascular surgery consulted recommended outpatient follow up and patient was discharged home 11/27/2024 with VNA services. He was seen by vascular surgery 12/01/2024 for wound care and dressing change advised to follow up with Dr. Cole at next visit. He is scheduled to be seen 12/08/2024. Presenting with dizziness and wound care management. Patient was seen by his parks recreation coordinator this morning and had his toenails clipped. He has regular VNA services that come with 3 times a week and dressing was recently changed 1 hour ago. The patient has a wound measuring 2 x 4.5 cm, which has been present for approximately five months. The wound is being monitored by VNA services three times a week, with no signs of infection or excessive leakage. The patient is completing a course of doxycycline and has finished Augmentin. TCM TCM Information Date of Discharge 11/27/24 Discharged From [facility] Interactive Contact Date (Reference documentation from this date) 11/29/24 [facility] Medical History ESRD (end stage renal disease) Blood clot in arm (~04/11/24) CKD (chronic kidney disease) stage 4, GFR 15-29 ml/min Obstructive sleep apnea HTN (hypertension) Dermatitis associated with moisture from stool incontinence Clostridioides difficile diarrhea Urinary retention with incomplete bladder emptying Pacemaker Pancytopenia Incomplete emptying of bladder due to benign prostatic hyperplasia Acute kidney injury superimposed on chronic kidney disease Fistula Paroxysmal A-fib Diastolic heart failure Pulmonary hypertension Depression, major Afib Bradycardia Scrotal edema Anasarca Cirrhosis Lymphedema Type 2 diabetes mellitus with hyperglycemia Osteoarthritis Peripheral neuropathy BPH (benign prostatic hyperplasia) Venous stasis dermatitis Obesity (BMI 30-39.9) Hypercholesterolemia Peripheral vascular disease Pulmonary hypertension Essential thrombocytopenia Anemia COPD (chronic obstructive pulmonary disease) Diabetic retinopathy Chronic kidney disease Lumbar degenerative disc disease High cholesterol Edema Gout Surgical History S/P cardiac catheterization Hx of cardiac pacemaker History of bowel diversion surgery History of gastric surgery H/O prior ablation treatment History of carpal tunnel release History of bilateral cataract extraction History of tonsillectomy Family History Father Prostate cancer CVD (cardiovascular disease) Mother Hemochromatosis Brother Motor vehicle accident Sister CAD (coronary artery disease) Maternal Grandfather Myocardial infarction Social History Household Members: Spouse Housing: House Do you presently have visiting nurse or other home services: No Alcohol intake: never Patient Tobacco Use Status: Former Tobacco user Tobacco use type: Cigarette e-Cigarette/Vaping Use: Former Use Second Hand Smoke Exposure: Yes Advance Directives Date on File: 11/06/22 service: No Current occupational status: retired Cognitive needs: Yes (Cane) Hearing needs: Yes Vision needs: Yes (Glasses) Questionnaire PHQ-9 Over the last 2 weeks, how often have you been bothered by any of the following problems? 1. Little interest or pleasure in doing things: not at all 2. Feeling down, depressed, or hopeless: not at all 3. Trouble falling or staying asleep, or sleeping too much: not at all 4. Feeling tired or having little energy: not at all 5. Poor appetite or overeating: not at all 6. Feeling bad about yourself - or that you are a failure or have let yourself or your family down: not at all 7. Trouble concentrating on things, such as reading the newspaper or watching television: not at all 8. Moving or speaking so slowly that other people could have noticed. Or the opposite - being so fidgety or restless that you have been moving around a lot more than usual: not at all 9. Thoughts that you would be better off or of hurting yourself in some way: not at all Total score: 0 Depression Screening Interpretation: Negative Depression Screening Done: Yes Source: Developed by Drs. Milton Ferrer, Shanna Fischer, Marc Hunt and colleagues, with an educational kaur from [employer]. Thrive Questionnaire Date Thrive assessed: 11/25/24 RADHA-7 AMB Questionnaire RADHA-7 Date RADHA - 7 assessed: 09/14/24 Source: Developed by Drs. Milton L. CarissaShanna dyeks, Macr Hunt and colleagues, with an educational kaur from [employer]. Review of Systems Const Denies body aches, Denies chills, Denies fever(s), Denies headache(s) and Denies poor appetite Eyes Reports no additional complaints ENT Denies dizziness and Denies headache(s) Card Denies chest pain, Denies syncope, Denies edema, Denies irregular heart rhythm, Denies lightheadedness and Denies dyspnea Resp Denies cough and Denies dyspnea GI Denies abdominal pain, Denies nausea and Denies vomiting Reports no additional complaints Musc Reports no additional complaints and Denies abnormal gait Skin/Breast Reports system reviewed and no additional complaints, except as documented Neuro Denies abnormal gait, Denies dizziness, Denies syncope and Denies headache(s) Psych Reports no additional complaints Physical exam (Primary Care) Vital Signs: Last Vital Signs Temp 97.3 F 12/07/24 13:00 Pulse 66 12/07/24 13:00 BP 120/66 12/07/24 13:00 Pulse Ox 91 L 12/07/24 13:00 Oxygen Delivery Method Room Air 12/07/24 13:00 BMI result Body Mass Index 33.3 Tobacco/Smoking Status: Tobacco use Status Tobacco use date assessed 12/07/24 12/07/24 13:07 Patient Tobacco Use Status Former Tobacco user 12/07/24 12:56 Tobacco use type Cigarette 12/07/24 12:56 e-Cigarette/Vaping Use Former Use 12/07/24 12:56 PHQ-9: PHQ-9 Score PHQ-9: Total score 0 12/07/24 13:11 Depression Screening Interpretation: Negative Thrive Assessment: Date of Thrive Assessment Date Thrive assessed 11/25/24 12/07/24 12:56 Const General: cooperative, healthy appearing, comfortable and no acute distress Orientation/consciousness: patient oriented x3 HENMT Head: Yes normocephalic Ears: hearing grossly normal bilaterally General nose exam: Normal external nose present Eyes General: appearance normal, both eyes and all related structures Conjunctivae: conjunctivae normal Neck Neck: Yes full ROM and Yes no lymphadenopathy Resp Effort & Inspection: normal respiratory effort Auscultation: clear to auscultation bilaterally, no crackles, no rales, no rhonchi and no wheezes Cardio Rate: regular rate Rhythm: regular rhythm Skin General skin exam: no rashes or lesions noted Neuro General: patient oriented x3 Gait exam (Neuro): Normal gait present Extrem Other: No swelling, redness, pain of bilateral lower extremities General: Yes normal to inspection, Yes full ROM and No edema Psych Affect: normal affect Attitude: cooperative Insight: Good insight present (Psych) Judgement: Good judgement present (Psych) Coding Level of Care Code TCM Mod MDM <= 14 Days Complex EM visit Add On [id number] Diagnoses Essential hypertension I10 Hypertension type: essential hypertension Coronary artery disease I25.10 Paroxysmal atrial fibrillation I48.0 Atrial fibrillation type: paroxysmal Peripheral vascular disease I73.9 Assessment & Plan Assessment & Plan (1) HTN (hypertension): Code(s): I10 - Essential (primary) hypertension Category: Medical Qualifiers: Hypertension type: essential hypertension Qualified Code(s): I10 - Essential (primary) hypertension Plan: Continue on current blood pressure medication. Avoid salt intake and encourage healthy diet and regular exercise. (2) Coronary artery disease: Code(s): I25.10 - Atherosclerotic heart disease of [place] coronary artery without angina pectoris Category: Medical Plan: Advised good control of blood pressure, cholesterol, and blood sugars. (3) Afib: Code(s): I48.91 - Unspecified atrial fibrillation Category: Medical Qualifiers: Atrial fibrillation type: paroxysmal Qualified Code(s): I48.0 - Paroxysmal atrial fibrillation Plan: Continue to follow with Cardiology. On full oral anticoagulation with Eliquis and rate control with metoprolol. (4) Peripheral vascular disease: Code(s): I73.9 - Peripheral vascular disease, unspecified Category: Medical Plan: Patient has nonhealing ulcer of the left lower extremity secondary to peripheral vascular disease. He is seeing vascular surgery tomorrow and consideration for angio per last visit note. Plan to leave the dressing in place until he sees vascular surgery tomorrow as he just had the dressing changed 1 hour prior to his visit. No evidence of infection at this time. Plan The patient will continue to receive wound care from VNA services three times a week, with a follow-up appointment scheduled with Dr. Cole to assess the wound's progress. The patient is advised to complete the remaining doxycycline course and monitor for any signs of infection. Further imaging may be considered to evaluate the vascular status of the legs, given the history of peripheral edema and previous arterial duplex findings. The patient is scheduled to follow up with the construction carpenter in January and should continue monitoring fluid intake to manage edema. This note was constructed using voice recognition software. While every effort has been made to ensure accuracy and billing analyst, still areas may have been included sometimes these areas may affect the content or meeting of the given symptoms. Total time spent caring for the patient today was 30 minutes. This includes time spent before the visit reviewing the chart, time spent during the visit, and time spent after the visit and documentation. Patient was informed and verbally consented to the use of an ambient scribe for clinic note documentation during this visit.
[2024-12-07 13:00] VITALS: BP 120/66; PULSE 66; TEMP 36.3; O2SAT 91; BMI 33.3
--- OUTSIDE RECORDS SUMMARY | 2024-12-07 14:55 | XMS_ITS | Clinical Summary ---
Author Organization [facility] Address [address] [place] [phone] Phone Care Team Providers Care Slicing Machine Feeder Name Role Phone Steve Nguyen MD Primary Care Provider [phone] Allergies Active Allergy Reactions Criticality Noted Date Comments Ferumoxytol Other (see comments) High 04/02/2021 Chest pain, chills Other reaction(s): Other (see comments) Chest pain, chills Medications isosorbide mononitrate (IMDUR) 30 MG 24 hr tablet Take 30 mg by mouth 1 (one) time each day 2 Active Vitamin D, Ergocalciferol, 41631 units capsule Take 1 capsule by mouth [...] tablet 2 4 Active epoetin gaby (EPOGEN,PROCRIT) 55751 UNIT/ML injection Inject 10,000 Units under the [...] in Dialysis Clinic [facility] [address] [phone] Ezequiel Reyes MD 12/01/2024 Treatment [facility] [address] [phone] Ezequiel Reyes MD End stage renal disease; Dependence on renal dialysis 11/24/2024 Treatment [facility] [place] [id number] [phone] Ezequiel Reyes MD End stage renal disease; Dependence on renal dialysis 11/15/2024 Treatment [facility] [place] [address] [phone] Ezequiel Reyes MD End stage renal disease; Dependence on renal dialysis 11/10/2024 Treatment [facility] [address] [phone] Ezequiel Reyes MD End stage renal disease; Dependence on renal dialysis 11/03/2024 Treatment [facility] [address] [phone] Ezequiel Reyes MD End stage renal disease; Dependence on renal dialysis 10/31/2024 Telephone [facility] [address] [place] [address] Genna Sauceda 10/28/2024 10:00 AM EDT Procedure visit [facility] [address] [place] [phone] Juan Buckner MD 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, implants and grafts, initial encounter [T85.858A] (Primary Dx) 10/27/2024 Treatment [facility] [address] [phone] Ezequiel Reyes MD End stage renal disease; Dependence on renal dialysis 10/26/2024 Telephone [facility] [address] [place] [address] Tisha Goff 10/20/2024 Treatment [facility] [address] [address] Ezequiel Reyes MD End stage renal disease; Dependence on renal dialysis 10/06/2024 Treatment [facility] [address] [phone] Ezequiel Reyes MD End stage renal disease; Dependence on renal dialysis 10/01/2024 Treatment [facility] [address] [phone] Ezequiel Reyes MD End stage renal disease; Dependence on renal dialysis 09/29/2024 11:30 AM EDT Office Visit [facility] [address] [place] [address] [place] [phone] Milton Stone MD End stage renal disease (HCC) (Primary Dx); Abscess of skin and/or subcutaneous tissue 09/28/2024 Telephone [facility] [address] [place] [phone] Coy Pameal 09/20/2024 Treatment [facility] [address] [phone] Ezequiel Reyes MD End stage renal disease; Dependence on renal dialysis 09/13/2024 Treatment [facility] [address] [phone] Ezequiel Reyes MD End stage renal disease; Dependence on renal dialysis 09/06/2024 Treatment [facility] [address] [phone] Ezequiel Reyes MD End stage renal disease; [...] Care Team (Late st Contact Info) Description 12/19/2024 1:00 PM EDT Procedure visit [facility] [address] [place] [address] [place] [address] 02/17/2025 11:00 AM EDT Procedure visit [facility] [address] [place] [address] [place] [phone] Health Maintenance Due Date Last Done Comments [...] Foot Exam 08/23/2019 Diabetes: Hemoglobin A1C 12/15/2024 04/03/2 025, 06/23/2024, 08/05/2022, Additional history exists Influenza Vaccine (Season Ended) 2025 03/28/2021, 03/26/2021, 04/28/2019, Additional history exists Pneumococcal Vaccine: Peds ( 0 to 5 Years) and At-Risk Patients (6 to 49 Years) Discontinued 01/28/2018, 12/13/2013, 05/04/2012 Procedures Procedure Name Priority Date/Time Associated Diagnosis Comments LIH () Routine 12/01/2024 3:00 AM EDT POTASSIUM Routine 12/01/2024 3:00 AM EDT HEMOGLOBIN Routine 12/01/2024 3:00 AM EDT LIH () Routine 11/29/2024 3:00 AM EDT [...] (HC) Routine 10/13/2024 3:00 AM EDT LIH () Routine 10/06/2024 3:00 AM EDT PHOSPHATE ( [...] LIH (HC) Routine 09/08/2024 3:00 AM EDT from Last 3 Months Results * LIH (12/01/2024 3:00 AM EDT) Only the most recent of15 resultswithin the time period is included. Lipemia Normal Normal [facility] Icterus Normal Normal [facility] Hemolysis Normal Normal [facility] 12/01/2024 3:00 AM EDT 12/02/2024 1:23 PM EDT Ezequiel Reyes MD LAB HISTORICA [id number] RESULTS Final Result Performing Organization Address [facility] Co de Phone Number APS [facility] [address] [place] [address] * (ABNORMAL) Hemoglobin (12/01/2024 3:00 AM EDT) Only the most recent of3 resultswithin the time period is included. Hgb 11.4(L) 13.7 - 17.5 g/dL [facility] Hemoglobin x 3 34.2(L) 41.1 - 52.5 g/dL [facility] 12/01/2024 3:00 AM EDT 12/02/2024 12:31 PM EDT us Ezequiel Reyes MD LAB BLOOD ORDERABLES Final Result Performing Organization Address [facility]/ZIP Co de Phone Number [facility] [address] [place] [address] * (ABNORMAL) Potassium (12/01/2024 3:00 AM EDT) Only the most recent of10 resultswithin the time period is included. Potassium 3.2(L) 3.4 - 5.0 mEq/L [facility] 12/01/2024 3:00 AM EDT 12/02/2024 1:23 PM EDT us Ezequiel Reyes MD LAB BLOOD ORDERABLES Final Result Performing Organization Address [facility] de Phone Number [facility] [address] [place] [address] * (ABNORMAL) Phosphorus (11/29/2024 3:00 AM EDT) Only the most recent of3 resultswithin the time period is included. Phosphorus, Serum 6.6(H) 2.5 - 5.0 mg/dL [facility] 11/29/2024 3:00 AM EDT 11/30/2024 1:34 PM EDT us Ezequiel Reyes MD LAB BLOOD ORDERABLES Final Result Performing Organization Address [facility] de Phone Number [facility] [address] [place] [address] * (ABNORMAL) Kt/V Natural Log, URR (11/17/2024 [...] EDT us Ezequiel Reyes MD LAB HISTORICA [id number] RESULTS Final Result Performing Organization Address [facility]/ZIP Co de Phone Number [facility] [address] [place] [address] * (ABNORMAL) Calcium Phosphorus Product, Adjusted (11/17/2024 [...] PM EDT Ezequiel Reyes MD LAB HISTORICA [id number] RESULTS Final Result Performing Organization Address [facility] Co de Phone Number [facility] [address] [place] [address] * Hepatitis B Surface Ag w/Reflex Confirmation (11/17/2024 3:00 AM EDT) Only the most recent of3 resultswithin the time period is included. Pathologist [facility] Hep B Surface Antigen Negative Negative [facility] 11/17/2024 3:00 AM EDT 11/18/2024 1:30 PM EDT Ezequiel Reyes MD LAB BLOOD ORDERABLES Final Result Performing Organization Address [facility] Co de Phone Number [facility] [address] [place] [address] * BUN/CREATININE RATIO (11/17/2024 3:00 AM EDT) Only the most recent of2 resultswithin the time period is included. BUN/Creatinine Ratio 7.1 <=23.0 [facility] 11/17/2024 3:00 AM EDT 11/18/2024 1:30 PM EDT us Ezequiel Reyes MD LAB HISTORICA [id number] RESULTS Final Result Performing Organization Address [facility] Co de Phone Number [facility] [address] [place] [address] * (ABNORMAL) TSAT (11/17/2024 3:00 AM EDT) [...] Edited Result - Final Performing Organization Address [facility] Co de Phone Number [facility] [address] [place] [address] * (ABNORMAL) CBC and Differential (11/17/2024 3:00 AM EDT) Only the most recent of3 resultswithin the time period is included. DIFFERENTIAL MANUAL, 2 Not Indicated [facility] White [...] BLOOD ORDERABLES Final Result Performing Organization Address [facility]/ZIP Co de Phone Number [facility] [address] [place] [address] * ALT (11/17/2024 3:00 AM EDT) Only the most recent of3 resultswithin the time period is included. ALT (SGPT) 13 10 - 49 U/L [facility] 11/17/2024 3:00 AM EDT 11/18/2024 1:30 PM EDT Ezequiel Reyes MD LAB BLOOD ORDERABLES Final Result Performing Organization Address [facility] Co de Phone Number [facility] [address] [place] [address] * AST (11/17/2024 3:00 AM EDT) Only the most recent of3 resultswithin the time period is included. AST (SGOT) 20 <34 U/L [facility] 11/17/2024 3:00 AM EDT 11/18/2024 1:30 PM EDT us Ezequiel Reyes MD LAB BLOOD ORDERABLES Final Result Performing Organization Address [facility] de Phone Number [facility] [address] [place] [address] * Protein, total (11/17/2024 3:00 AM EDT) Only the most recent of3 resultswithin the time period is included. Total Protein 7.0 6.4 - 8.9 g/dL [facility] 11/17/2024 3:00 AM EDT 11/18/2024 1:30 PM EDT us Ezequiel Reyes MD LAB BLOOD ORDERABLES Final Result Performing Organization Address [facility] de Phone Number [facility] [address] [place] [address] * (ABNORMAL) Alkaline phosphatase (11/17/2024 3:00 AM EDT) Only the most recent of3 resultswithin the time period is included. Alkaline Phosphatase 130(H) 46 - 116 U/L [facility] 11/17/2024 3:00 AM EDT 11/18/2024 1:30 PM EDT us Ezequiel Reyes MD LAB BLOOD ORDERABLES Final Result Performing Organization Address [facility] de Phone Number [facility] [address] [place] [address] * Magnesium (11/17/2024 3:00 AM EDT) Only the most recent of3 resultswithin the time period is included. Magnesium 2.1 1.9 - 2.7 mg/dL [facility] 11/17/2024 3:00 AM EDT 11/18/2024 1:30 PM EDT us Ezequiel Reyes MD LAB BLOOD ORDERABLES Final Result Performing Organization Address [facility] de Phone Number [facility] [address] [place] [address] * (ABNORMAL) Lactate dehydrogenase (11/17/2024 3:00 AM EDT) Only the most recent of3 resultswithin the time period is included. LDH 255(H) 120 - 246 U/L [facility] 11/17/2024 3:00 AM EDT 11/18/2024 1:30 PM EDT Ezequiel Reyes MD LAB BLOOD ORDERABLES Final Result Performing Organization Address [facility] de Phone Number [facility] [address] [place] [address] * Glucose, random (11/17/2024 3:00 AM EDT) Only the most recent of3 resultswithin the time period is included. Glucose 84 70 - 99 mg/dL [facility] Comment: ADA guidelines outline the following fasting glucose ranges: Normal: <100 Prediabetes: 100-125 Diabetes: >125 11/17/2024 3:00 AM EDT 11/18/2024 1:30 PM EDT Ezequiel Reyes MD LAB BLOOD ORDERABLES Final Result Performing Organization Address [facility] de Phone Number [facility] [address] [place] [address] * (ABNORMAL) Ferritin (11/17/2024 3:00 AM EDT) Only the most recent of3 resultswithin the time period is included. Ferritin 1,063(H) 22 - 322 ng/mL [facility] 11/17/2024 3:00 AM EDT 11/18/2024 1:30 PM EDT Ezequiel Reyes MD LAB BLOOD ORDERABLES Final Result Performing Organization Address [facility] de Phone Number [facility] [address] [place] [address] * (ABNORMAL) Creatinine, serum (11/17/2024 3:00 AM EDT) Only the most recent of3 resultswithin the time period is included. Creatinine 6.22(H) 0.70 - 1.30 mg/dL [facility] 11/17/2024 3:00 AM EDT 11/18/2024 1:30 PM EDT us Ezequiel Reyes MD LAB BLOOD ORDERABLES Final Result Performing Organization Address [facility] de Phone Number [facility] [address] [place] [address] * Bilirubin, total (11/17/2024 3:00 AM EDT) Only the most recent of3 resultswithin the time period is included. Total Bilirubin 1.1 0.3 - 1.2 mg/dL [facility] 11/17/2024 3:00 AM EDT 11/18/2024 1:30 PM EDT us Ezequiel Reyes MD LAB BLOOD ORDERABLES Final Result Performing Organization Address [facility] de Phone Number [facility] [address] [place] [address] * (ABNORMAL) Electrolyte panel (11/17/2024 3:00 AM [...] BLOOD ORDERABLES Final Result Performing Organization Address [facility] de Phone Number [facility] [address] [place] [address] * Collection Date (09/24/2024 3:00 AM EDT) Collection Date See Comment [facility] Comment: Patient sample received may exceed specimen stability, based on the collection date electronically provided. When reviewing patient results, verify collection information and consider specimen stability before acting on any critical or panic results. 09/24/2024 3:00 AM EDT us Ezequiel Reyes MD LAB HISTORICA [id number] RESULTS Final Result Performing Organization Address [facility] de Phone Number [facility] [address] [place] [address] * PTH, Intact (09/15/2024 3:00 AM EDT) Pathologist [facility] PTH, Intact 253 160 - 721 pg/mL [facility] Comment: Suggested (KDIGO) ESRD maintenance range is two to nine times the upper normal limit (80.1 pg/mL) for the laboratory. 09/15/2024 3:00 AM EDT 09/17/2024 1:30 PM EDT us Ezequiel Reyes MD LAB BLOOD ORDERABLES Final Result Performing Organization Address [facility] de Phone Number [facility] [address] [place] [address] * Hemoglobin A1c (09/15/2024 3:00 AM EDT) Hemoglobin A1C 5.1 <5.7 % [facility] Comment: Methodology: Enzymatic HbA1c (NGSP %) Suggested Diagnosis >6.4% Diabetic 5.7-6.4% Pre-Diabetic <5.7% Non-Diabetic Diabetic Glucose Control Evaluation: Therapeutic action suggested at >8.0% ADA recommends a glycemic goal of <7.0% 09/15/2024 3:00 AM EDT 09/17/2024 1:27 PM EDT us Ezequiel Reyes MD LAB BLOOD ORDERABLES Final Result Performing Organization Address [facility] Co de Phone Number [facility] [address] [place] [address] * (ABNORMAL) Lipid panel (09/15/2024 3:00 AM [...] BLOOD ORDERABLES Final Result Performing Organization Address [facility] Co de Phone Number [facility] [address] [place] [address] from Last 3 Months Insurance [facility] Medicare Medicare Care Teams Slicing Machine Feeder Relationship Specialty Start Date End Date Steve Nguyen MD [facility] [address] [place], [place] PCP - General 04/19/19
== END 2024-12-07 14:01 | disposition home or self-care (01) ==
LOC: HO.HMCH 12:50
PROVIDERS: PCP Internal Medicine
DX: I10 Essential (primary) hypertension (principal); I25.10 Atherosclerotic heart disease of native coronary artery without angina pectoris; I48.0 Paroxysmal atrial fibrillation; I73.9 Peripheral vascular disease, unspecified

== ENCOUNTER → 2024-12-07 12:50 | Outpatient (BNVA) | payer MEDICARE, SELFPAY | PROVIDERS: PCP Internal Medicine | DX: I10 Essential (primary) hypertension (principal); I25.10 Atherosclerotic heart disease of native coronary artery without angina pectoris; I48.0 Paroxysmal atrial fibrillation; I73.9 Peripheral vascular disease, unspecified | CPT/HCPCS: 99495 ==

== ENCOUNTER 2024-12-08 13:52 | Outpatient (AMB) | payer MEDICARE, SELFPAY ==
[2024-12-08 14:11] VITALS: BMI 33.3
--- NOTE | 2024-12-08 14:11 | MHC.OFFVIS ---
Vital Signs 12/08/24 14:11 Height 5 ft 10 in Weight 232 lb BMI 33.3 Intake Visit Reasons: 1 week follow up L foot non-healing ulcer Intake Note: 1 week follow up Left non-healing ulcer & follow up arterial US from hospital stay 11/24/24. Has VNA 3 times per week Accompanied by: Self / Same As Patient Allergies No Known Allergies (No Known Allergies*) Allergy (Verified 12/08/24 14:13) HPI HPI 1 week follow up L foot non-healing ulcer: Details: Complex 69-year-old gentleman presents for evaluation regarding nonhealing left lower extremity ulcer. She has end-stage renal disease where he is on hemodialysis on a Thursday regimen. He is currently being dialyzed through the right arm. He had a RI approximately 2 months prior. On August 31 2024 he had a stent in the RCA by Dr. Ron. He was seen in the hospital on 12/01/2024 he has been seen by visiting nurse services as well. He now presents for routine follow-up. [facility] Medical History ESRD (end stage renal disease) Blood clot in arm (~04/11/24) CKD (chronic kidney disease) stage 4, GFR 15-29 ml/min Obstructive sleep apnea HTN (hypertension) Dermatitis associated with moisture from stool incontinence Clostridioides difficile diarrhea Urinary retention with incomplete bladder emptying Pacemaker Pancytopenia Incomplete emptying of bladder due to benign prostatic hyperplasia Acute kidney injury superimposed on chronic kidney disease Fistula Paroxysmal A-fib Diastolic heart failure Pulmonary hypertension Depression, major Afib Bradycardia Scrotal edema Anasarca Cirrhosis Lymphedema Type 2 diabetes mellitus with hyperglycemia Osteoarthritis Peripheral neuropathy BPH (benign prostatic hyperplasia) Venous stasis dermatitis Obesity (BMI 30-39.9) Hypercholesterolemia Peripheral vascular disease Pulmonary hypertension Essential thrombocytopenia Anemia COPD (chronic obstructive pulmonary disease) Diabetic retinopathy Chronic kidney disease Lumbar degenerative disc disease High cholesterol Edema Gout Surgical History S/P cardiac catheterization Hx of cardiac pacemaker History of bowel diversion surgery History of gastric surgery H/O prior ablation treatment History of carpal tunnel release History of bilateral cataract extraction History of tonsillectomy Family History Father Prostate cancer CVD (cardiovascular disease) Mother Hemochromatosis Brother Motor vehicle accident Sister CAD (coronary artery disease) Maternal Grandfather Myocardial infarction Social History Household Members: Spouse Housing: House Do you presently have visiting nurse or other home services: No Alcohol intake: never Patient Tobacco Use Status: Former Tobacco user Tobacco use type: Cigarette e-Cigarette/Vaping Use: Former Use Second Hand Smoke Exposure: Yes Advance Directives Date on File: 11/06/22 service: No Current occupational status: retired Cognitive needs: Yes (Cane) Hearing needs: Yes Vision needs: Yes (Glasses) Review of Systems Const All systems reviewed & are unremarkable except as noted in HPI and below Reports no additional complaints ENT Reports Normal hearing present Card Denies chest pain, Denies chest pain at rest, Denies chest pain with activity and Denies pedal edema Resp Denies cough GI Denies abdominal pain Musc Denies abnormal gait, Denies muscle cramps and Denies radiating pain into limb Skin/Breast Denies skin ulcer and Denies wounds Neuro Reports Normal hearing present and Denies abnormal gait Psych Reports no additional complaints Physical Exam Vital Signs: BMI result Body Mass Index 33.3 Const General: cooperative, healthy appearing and comfortable Orientation/consciousness: oriented to person, oriented to place and oriented to time HEENT Head: Yes normal to inspection Neck Neck: Yes normal visual inspection Carotids: no bruits Chest Chest palpation & inspection: normal inspection of the chest Resp Effort & Inspection: normal respiratory effort and able to speak in complete sentences Auscultation: clear to auscultation bilaterally, no crackles, no rales, no rhonchi and no wheezes Cardio Other: Bilateral DP signals Rate: regular rate Rhythm: regular rhythm Heart sounds: S1 normal heart sound present and S2 normal heart sound present Bruits: no carotid bruits GI Inspection: Yes normal to inspection Skin Other: Left leg multiple ulcerations covered by Kerlix and Carlton wrap. Wounds: no wounds Hair: normal Neuro General: oriented to person, oriented to place and oriented to time Cranial nerves: Yes CN's II-XII intact bilaterally and Yes Normal hearing present Cognition (Neuro): normal cognition Motor exam (neuro): 5/5 motor strength present throughout Extrem Other: venous exam: No significant superficial varicosities or spider telangiectasias, minimal edema General: No clubbing, No cyanosis and No edema Psych Appearance: grossly normal Mental Status: mental status grossly normal Speech and movement: Normal speech and movement present Results Reviewed Results Reviewed: 11/24/2024- monophasic flow throughout leg Assessment & Plan Assessment & Plan (1) Peripheral vascular disease: Code(s): I73.9 - Peripheral vascular disease, unspecified Category: Medical Plan: In short patient has nonhealing left lower extremity ulcers. At the current time would like to manage this as conservatively as possible in light of his recent coronary stenting and RI. we did discussed local wound care. I have scheduled a routine 3 month surveillance follow-up to see if we would address his peripheral vascular disease at that point. He may require endovascular intervention. Thank you for allowing us to assist in his care. If there are any questions or concerns please do not hesitate to contact us. Coding Level of Care Code Est Pt Level 4 (89799) Complex EM visit Add On G2211 Diagnoses Peripheral vascular disease I73.9
--- OUTSIDE RECORDS SUMMARY | 2024-12-08 16:43 | XMS_ITS | Clinical Summary ---
Author Organization [facility] Address [address] [place] [phone] Phone Care Team Providers Care Laboratory Technician Name Role Phone Steve Nguyen MD Primary Care Provider [phone] Allergies Active Allergy Reactions Criticality Noted Date Comments Ferumoxytol Other (see comments) High 04/02/2021 Chest pain, chills Other reaction(s): Other (see comments) Chest pain, chills Medications isosorbide mononitrate (IMDUR) 30 MG 24 hr tablet Take 30 mg by mouth 1 (one) time each day 2 Active Vitamin D, Ergocalciferol, 92182 units capsule Take 1 capsule by mouth [...] tablet 2 4 Active epoetin gaby (EPOGEN,PROCRIT) 59472 UNIT/ML injection Inject 10,000 Units under the [...] Encounters Date Type Department Care Team Description 12/08/2024 Treatment [facility] [address] [phone] Ezequiel Reyes MD End stage renal disease; Dependence on renal dialysis 12/01/2024 TCM in Dialysis Clinic [facility] [address] [phone] Ezequiel Reyes MD 12/01/2024 Treatment [facility] [place] [id number] [phone] Ezequiel Reyes MD End stage renal disease; Dependence on renal dialysis 11/24/2024 Treatment [facility] [place] [id number] [phone] Ezequiel Reyes MD End stage renal disease; Dependence on renal dialysis 11/15/2024 Treatment [facility] [address] [address] Ezequiel Reyes MD End stage renal disease; Dependence on renal dialysis 11/10/2024 Treatment [facility] [address] [phone] Ezequiel Reyes MD End stage renal disease; Dependence on renal dialysis 11/03/2024 Treatment [facility] [address] [phone] Ezequiel Reyes MD End stage renal disease; Dependence on renal dialysis 10/31/2024 Telephone [facility] [address] [place] [phone] Genna Sauceda 10/28/2024 10:00 AM EDT Procedure visit [facility] [address] [place] [address] Juan Buckner MD 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, implants and grafts, initial encounter [T85.858A] (Primary Dx) 10/27/2024 Treatment [facility] [address] [phone] Ezequiel Reyes MD End stage renal disease; Dependence on renal dialysis 10/26/2024 Telephone [facility] [address] [place] [address] Tisha Goff 10/20/2024 Treatment [facility] [address] [address] Ezequiel Reyes MD End stage renal disease; Dependence on renal dialysis 10/06/2024 Treatment [facility] [address] [address] Ezequiel Reyes MD End stage renal disease; Dependence on renal dialysis 10/01/2024 Treatment [facility] [address] [phone] Ezequiel Reyes MD End stage renal disease; Dependence on renal dialysis 09/29/2024 11:30 AM EDT Office Visit [facility] [address] [place] [address] [place] [address] Milton Stone MD End stage renal disease (HCC) (Primary Dx); Abscess of skin and/or subcutaneous tissue 09/28/2024 Telephone [facility] Access [address] [place] [address] Pamela Cespedes 09/20/2024 Treatment [facility] [address] [address] Ezqeuiel Reyes MD End stage renal disease; Dependence on renal dialysis 09/13/2024 Treatment [facility] [address] [phone] Ezequiel Reyes MD End stage renal disease; [...] [facility] [address] [place] [address] [place] [address] 02/17/2025 11:00 AM EDT Procedure visit [facility] [address] [place] [address] [place] [address] Health Maintenance Due Date Last Done Comments [...] 04/03/2 025, 06/23/2024, 08/05/2022, Additional history exists Pneumococcal Vaccine: Peds ( 0 to 5 Years) and At-Risk Patients (6 to 49 Years) Discontinued 01/28/2018, 12/13/2013, 05/04/2012 Influenza Vaccine Completed 02/14/2024, , 03/26/2021, Additional history exists Procedures Procedure Name Priority Date/Time Associated Diagnosis Comments LIH (HC) Routine 12/01/2024 3:00 AM EDT POTASSIUM Routine 12/01/2024 3:00 AM EDT HEMOGLOBIN Routine 12/01/2024 3:00 AM EDT LIH (HC) Routine 11/29/2024 3:00 AM EDT PHOSPHATE ( PHOSPHORUS) Routine 11/29/2024 3:00 AM EDT LIH (HC) Routine 11/24/2024 3:00 AM EDT POTASSIUM Routine [...] HEMOGLOBIN Routine 09/29/2024 3:00 AM EDT LIH () Routine 09/29/2024 3:00 AM EDT POTASSIUM Routine 09/29/2024 3:00 AM EDT LIH () Routine 09/24/2024 3:00 AM EDT POTASSIUM Routine [...] EDT us Ezequiel Reyes MD LAB HISTORICA [id number] RESULTS Final Result Performing Organization Address [facility] Co de Phone Number [facility] [address] [place] [address] * (ABNORMAL) Hemoglobin (12/01/2024 3:00 AM EDT) Only the most recent of3 resultswithin the time period is included. Hgb 11.4(L) 13.7 - 17.5 g/dL [facility] Hemoglobin x 3 34.2(L) 41.1 - 52.5 g/dL [facility] 12/01/2024 3:00 AM EDT 12/02/2024 12:31 PM EDT Ezequiel Reyes MD LAB BLOOD ORDERABLES Final Result Performing Organization Address [facility] Co de Phone Number [facility] [address] [place] [address] * (ABNORMAL) Potassium (12/01/2024 3:00 AM EDT) Only the most recent of10 resultswithin the time period is included. Potassium 3.2(L) 3.4 - 5.0 mEq/L [facility] 12/01/2024 3:00 AM EDT 12/02/2024 1:23 PM EDT Ezequiel Reyes MD LAB BLOOD ORDERABLES Final Result Performing Organization Address [facility] de Phone Number [facility] [address] [place] [address] * (ABNORMAL) Phosphorus (11/29/2024 3:00 AM EDT) Only the most recent of3 resultswithin the time period is included. Phosphorus, Serum 6.6(H) 2.5 - 5.0 mg/dL [facility] 11/29/2024 3:00 AM EDT 11/30/2024 1:34 PM EDT us Ezequiel Reyes MD LAB BLOOD ORDERABLES Final Result Performing Organization Address [facility] Phone Number [facility] [address] [place] [address] * (ABNORMAL) Kt/V Natural Log, URR (11/17/2024 [...] EDT us Ezequiel Reyes MD LAB HISTORICA [id number] RESULTS Final Result Performing Organization Address [facility]/ZIP Co de Phone Number [facility] [address] [place] [address] * (ABNORMAL) Calcium Phosphorus Product, Adjusted (11/17/2024 [...] PM EDT Ezequiel Reyes MD LAB HISTORICA [id number] RESULTS Final Result Performing Organization Address City/[facility]/ZIP Co de Phone Number [facility] [address] [place] [address] * Hepatitis B Surface Ag w/Reflex Confirmation (11/17/2024 3:00 AM EDT) Only the most recent of3 resultswithin the time period is included. Hep B Surface Antigen Negative Negative [facility] 11/17/2024 3:00 AM EDT 11/18/2024 1:30 PM EDT Ezequiel Reyes MD LAB BLOOD ORDERABLES Final Result Performing Organization Address City/[facility]/ZIP Co de Phone Number [facility] [address] [place] [address] * BUN/CREATININE RATIO (11/17/2024 3:00 AM EDT) Only the most recent of2 resultswithin the time period is included. Pathologist [facility] BUN/Creatinine Ratio 7.1 <=23.0 [facility] 11/17/2024 3:00 AM EDT 11/18/2024 1:30 PM EDT us Ezequiel Reyes MD LAB HISTORICA [id number] RESULTS Final Result Performing Organization Address [facility] de Phone Number [facility] [address] [place] [address] * (ABNORMAL) TSAT (11/17/2024 3:00 AM EDT) [...] Edited Result - Final Performing Organization Address [facility] de Phone Number [facility] [address] [place] [address] * (ABNORMAL) CBC and Differential (11/17/2024 3:00 [...] BLOOD ORDERABLES Final Result Performing Organization Address City/[facility]/ZIP Co de Phone Number [facility] [address] [place] [address] * ALT (11/17/2024 3:00 AM EDT) Only the most recent of3 resultswithin the time period is included. ALT (SGPT) 13 10 - 49 U/L [facility] 11/17/2024 3:00 AM EDT 11/18/2024 1:30 PM EDT Ezequiel Reyes MD LAB BLOOD ORDERABLES Final Result Performing Organization Address City/[facility]/ZIP Co de Phone Number [facility] [address] [place] [address] * AST (11/17/2024 3:00 AM EDT) Only the most recent of3 resultswithin the time period is included. AST (SGOT) 20 <34 U/L [facility] 11/17/2024 3:00 AM EDT 11/18/2024 1:30 PM EDT us Ezequiel Reyes MD LAB BLOOD ORDERABLES Final Result Performing Organization Address City/[facility]/ZIP Co de Phone Number [facility] [address] [place] [address] * Protein, total (11/17/2024 3:00 AM EDT) Only the most recent of3 resultswithin the time period is included. Total Protein 7.0 6.4 - 8.9 g/dL [facility] 11/17/2024 3:00 AM EDT 11/18/2024 1:30 PM EDT us Ezequiel Reyes MD LAB BLOOD ORDERABLES Final Result Performing Organization Address [facility] de Phone Number [facility] [address] [place] [address] * (ABNORMAL) Alkaline phosphatase (11/17/2024 3:00 AM EDT) Only the most recent of3 resultswithin the time period is included. Alkaline Phosphatase 130(H) 46 - 116 U/L [facility] 11/17/2024 3:00 AM EDT 11/18/2024 1:30 PM EDT us Ezequiel Reyes MD LAB BLOOD ORDERABLES Final Result Performing Organization Address [facility] de Phone Number [facility] [address] [place] [address] * Magnesium (11/17/2024 3:00 AM EDT) Only the most recent of3 resultswithin the time period is included. Magnesium 2.1 1.9 - 2.7 mg/dL [facility] 11/17/2024 3:00 AM EDT 11/18/2024 1:30 PM EDT us Ezequiel Reyes MD LAB BLOOD ORDERABLES Final Result Performing Organization Address [facility] de Phone Number [facility] [address] [place] [address] * (ABNORMAL) Lactate dehydrogenase (11/17/2024 3:00 AM EDT) Only the most recent of3 resultswithin the time period is included. LDH 255(H) 120 - 246 U/L [facility] 11/17/2024 3:00 AM EDT 11/18/2024 1:30 PM EDT us Ezequiel Reyes MD LAB BLOOD ORDERABLES Final Result Performing Organization Address [facility] de Phone Number [facility] [address] [place] [address] * Glucose, random (11/17/2024 3:00 AM EDT) Only the most recent of3 resultswithin the time period is included. Glucose 84 70 - 99 mg/dL [facility] Comment: ADA guidelines outline the following fasting glucose ranges: Normal: <100 Prediabetes: 100-125 Diabetes: >125 11/17/2024 3:00 AM EDT 11/18/2024 1:30 PM EDT us Ezequiel Reyes MD LAB BLOOD ORDERABLES Final Result Performing Organization Address [facility] de Phone Number [facility] [address] [place] [address] * (ABNORMAL) Ferritin (11/17/2024 3:00 AM EDT) Only the most recent of3 resultswithin the time period is included. Ferritin 1,063(H) 22 - 322 ng/mL [facility] 11/17/2024 3:00 AM EDT 11/18/2024 1:30 PM EDT us Ezequiel Reyes MD LAB BLOOD ORDERABLES Final Result [facility] [address] [place] [address] * (ABNORMAL) Creatinine, serum (11/17/2024 3:00 AM EDT) Only the most recent of3 resultswithin the time period is included. Creatinine 6.22(H) 0.70 - 1.30 mg/dL [facility] 11/17/2024 3:00 AM EDT 11/18/2024 1:30 PM EDT us Ezequiel Reyes MD LAB BLOOD ORDERABLES Final Result Performing Organization Address City/[facility]/ZIP Co de Phone Number [facility] [address] [place] [address] * Bilirubin, total (11/17/2024 3:00 AM EDT) Only the most recent of3 resultswithin the time period is included. Total Bilirubin 1.1 0.3 - 1.2 mg/dL [facility] 11/17/2024 3:00 AM EDT 11/18/2024 1:30 PM EDT us Ezequiel Reyes MD LAB BLOOD ORDERABLES Final Result Performing Organization Address City/[facility]/ZIP Co de Phone Number [facility] [address] [place] [address] * (ABNORMAL) Electrolyte panel (11/17/2024 3:00 AM [...] BLOOD ORDERABLES Final Result Performing Organization Address [facility] de Phone Number [facility] [address] [place] [address] * Collection Date (09/24/2024 3:00 AM EDT) Collection Date See Comment [facility] Comment: Patient sample received may exceed specimen stability, based on the collection date electronically provided. When reviewing patient results, verify collection information and consider specimen stability before acting on any critical or panic results. 09/24/2024 3:00 AM EDT us Ezequiel Reyes MD LAB HISTORICA [id number] RESULTS Final Result Performing Organization Address [facility] Phone Number [facility] [address] [place] [address] * PTH, Intact (09/15/2024 3:00 AM EDT) PTH, Intact 253 160 - 721 pg/mL [facility] Comment: Suggested (KDIGO) ESRD maintenance range is two to nine times the upper normal limit (80.1 pg/mL) for the laboratory. 09/15/2024 3:00 AM EDT 09/17/2024 1:30 PM EDT us Ezequiel Reyes MD LAB BLOOD ORDERABLES Final Result Performing Organization Address [facility] de Phone Number [facility] [address] [place] [address] * Hemoglobin A1c (09/15/2024 3:00 AM EDT) Hemoglobin A1C 5.1 <5.7 % [facility] Comment: Methodology: Enzymatic HbA1c (NGSP %) Suggested Diagnosis >6.4% Diabetic 5.7-6.4% Pre-Diabetic <5.7% Non-Diabetic Diabetic Glucose Control Evaluation: Therapeutic action suggested at >8.0% ADA recommends a glycemic goal of <7.0% 09/15/2024 3:00 AM EDT 09/17/2024 1:27 PM EDT us Ezequiel Reyes MD LAB BLOOD ORDERABLES Final Result Performing Organization Address [facility] Co de Phone Number [facility] [address] [place] [address] * (ABNORMAL) Lipid panel (09/15/2024 3:00 AM [...] BLOOD ORDERABLES Final Result Performing Organization Address [facility] Co de Phone Number [facility] [address] [place] [address] from Last 3 Months Insurance Medicare Care Teams Laboratory Technician Relationship Specialty Start Date End Date Steve Nguyen MD [facility] [address] [place], [place] PCP - General 04/19/19
== END 2024-12-08 14:31 | disposition home or self-care (01) ==
LOC: HO.HVS 13:52
PROVIDERS: PCP Internal Medicine; Visit Provider Surgery Vascular Surgery
DX: I73.9 Peripheral vascular disease, unspecified (principal)
CPT/HCPCS: 99214; G2211

== ENCOUNTER → 2024-12-08 13:52 | Outpatient (BNVA) | payer MEDICARE, SELFPAY | PROVIDERS: PCP Internal Medicine; Visit Provider Surgery Vascular Surgery | DX: E11.51 Type 2 diabetes mellitus with diabetic peripheral angiopathy without gangrene (principal); E11.622 Type 2 diabetes mellitus with other skin ulcer; L97.929 Non-pressure chronic ulcer of unspecified part of left lower leg with unspecified severity; E11.22 Type 2 diabetes mellitus with diabetic chronic kidney disease; I12.0 Hypertensive chronic kidney disease with stage 5 chronic kidney disease or end stage renal disease; N18.6 End stage renal disease; Z99.2 Dependence on renal dialysis | CPT/HCPCS: 99212 ==

== ENCOUNTER 2025-01-25 08:52 | Outpatient (AMB) | payer MEDICARE, SELFPAY ==
--- NOTE | 2025-01-25 08:55 | A.OFFPC_ITS ---
Vital Signs 01/25/25 08:56 Height 5 ft 10 in Weight 227 lb 8 oz BMI 32.6 BP 124/70 Blood Pressure Location Lt brachial Position Sitting Pulse 70 Pulse Source Pulse Oximeter Temp 97.1 F Temp Source Temporal Artery Scan Pulse Oximetry (%) 99 Oxygen Delivery Method Room Air Intake Visit Reasons: esrd, cad Intake Note: Patient is here to follow up on GERD, CAD. Radioisotope Production Operator Required: No Clinical Abstractor: Not Required per policy Accompanied by: Self / Same As Patient Allergies No Known Allergies (No Known Allergies*) Allergy (Verified 01/25/25 08:56) Tobacco use date assessed: 01/25/25 Fall risk assessment: No Falls in past year Last assessed Fall Risk: 01/25/25 Dental Screening Dental Screen Date: 09/14/24 [facility] Medical History (Updated 01/25/25 @ 09:19 by Steve Nguyen MD) Type 2 diabetes mellitus with hyperglycemia ESRD (end stage renal disease) Blood clot in arm (~04/11/24) CKD (chronic kidney disease) stage 4, GFR 15-29 ml/min Obstructive sleep apnea HTN (hypertension) Dermatitis associated with moisture from stool incontinence Clostridioides difficile diarrhea Urinary retention with incomplete bladder emptying Pacemaker Pancytopenia Incomplete emptying of bladder due to benign prostatic hyperplasia Acute kidney injury superimposed on chronic kidney disease Fistula Paroxysmal A-fib Diastolic heart failure Pulmonary hypertension Depression, major Afib Bradycardia Scrotal edema Anasarca Cirrhosis Lymphedema Osteoarthritis Peripheral neuropathy BPH (benign prostatic hyperplasia) Venous stasis dermatitis Obesity (BMI 30-39.9) Hypercholesterolemia Peripheral vascular disease Pulmonary hypertension Essential thrombocytopenia Anemia COPD (chronic obstructive pulmonary disease) Diabetic retinopathy Chronic kidney disease Lumbar degenerative disc disease High cholesterol Edema Gout Surgical History S/P cardiac catheterization Hx of cardiac pacemaker History of bowel diversion surgery History of gastric surgery H/O prior ablation treatment History of carpal tunnel release History of bilateral cataract extraction History of tonsillectomy Family History Father Prostate cancer CVD (cardiovascular disease) Mother Hemochromatosis Brother Motor vehicle accident Sister CAD (coronary artery disease) Maternal Grandfather Myocardial infarction Social History Household Members: Spouse Housing: House Do you presently have visiting nurse or other home services: No Alcohol intake: never Patient Tobacco Use Status: Former Tobacco user Tobacco use type: Cigarette e-Cigarette/Vaping Use: Former Use Second Hand Smoke Exposure: Yes Advance Directives Date on File: 11/06/22 service: No Current occupational status: retired Cognitive needs: Yes (Cane) Hearing needs: Yes Vision needs: Yes (Glasses) Questionnaire PHQ-9 Over the last 2 weeks, how often have you been bothered by any of the following problems? 1. Little interest or pleasure in doing things: several days 2. Feeling down, depressed, or hopeless: not at all 3. Trouble falling or staying asleep, or sleeping too much: several days 4. Feeling tired or having little energy: more than half the days 5. Poor appetite or overeating: several days 6. Feeling bad about yourself - or that you are a failure or have let yourself or your family down: not at all 7. Trouble concentrating on things, such as reading the newspaper or watching television: not at all 8. Moving or speaking so slowly that other people could have noticed. Or the opposite - being so fidgety or restless that you have been moving around a lot more than usual: not at all 9. Thoughts that you would be better off or of hurting yourself in some way: not at all Total score: 5 Depression Screening Interpretation: Positive Depression Screening Done: Yes Source: Developed by Drs. Milton Ferrer, Shanna Fischer, Marc Hunt and colleagues, with an educational kaur from [employer]. Thrive Questionnaire Date Thrive assessed: 11/25/24 I am a: Patient What is your living situation today?: I have a steady place to live Within the past 12 months, did the food you bought not last and you didn't have the money to get more?: Never true Within the past 12 months, did you worry whether your food would run out before you got money to buy more?: Sometimes True Do you have trouble paying for medicines?: No Do you have trouble getting transportation to medical appointments?: No Do you have trouble paying your heating and electricity bill?: No Do you have trouble taking care of your child, family member or friend?: No Do you have trouble with day-to-day activities such as bathing, preparing meals, shopping, managing finances, etc.?: Yes Are you currently unemployed and looking for a job?: No Are you interested in more education?: No Please select the resources that you would like help with: Transportation Currently or been in a relationship where the following occur: No concerns reported THRIVE Score: 1 AUDIT C Alcohol Use Questionnaire (AUDIT-C) 1. How often do you have a drink containing alcohol?: Never Total Score: 0 RADHA-7 AMB Questionnaire RADHA-7 Date RADHA - 7 assessed: 01/25/25 Feeling nervous, anxious, or on edge: 0 = Not at all Not being able to stop or control worryin = Not at all Worrying too much about different things: 1 = Several days Trouble relaxin = Not at all Being so restless that it is hard to sit still: 0 = Not at all Becoming easily annoyed or irritable: 1 = Several days Feeling afraid as if something awful might happen: 0 = Not at all Total RADHA-7 score (0-4 normal; 5-9 mild; 10-14 moderate; 15-21 severe): 2 Source: Developed by Drs. Milton Ferrer, Shanna Fischer, Marc Hunt and colleagues, with an educational kaur from [employer]. Physical exam (Primary Care) Vital Signs: Last Vital Signs Temp 97.1 F 01/25/25 08:56 Pulse 70 01/25/25 08:56 BP 124/70 01/25/25 08:56 Pulse Ox 99 01/25/25 08:56 Oxygen Delivery Method Room Air 01/25/25 08:56 BMI result Body Mass Index 32.6 Tobacco/Smoking Status: Tobacco use Status Tobacco use date assessed 01/25/25 01/25/25 09:01 Patient Tobacco Use Status Former Tobacco user 01/25/25 09:01 Tobacco use type Cigarette 01/25/25 09:01 e-Cigarette/Vaping Use Former Use 01/25/25 09:01 PHQ-9: PHQ-9 Score PHQ-9: Total score 5 01/25/25 09:13 Depression Screening Interpretation: Positive Thrive Assessment: Date of Thrive Assessment Date Thrive assessed 11/25/24 01/25/25 09:01 Currently or been in a relationship where the following occur: No concerns reported Const General: alert; No acute distress Eyes Conjunctivae: conjunctivae normal Resp Auscultation: clear to auscultation bilaterally Cardio Rate: regular rate Rhythm: regular rhythm GI Inspection: Yes normal to inspection Extrem General: Yes normal to inspection and No edema Results AMB Hemoglobin A1c AMB Hemoglobin A1c 5.1 % Last Edit by PAULA Taveras on 01/25/25 09:15 Results Reviewed Results Reviewed: Laboratory Last Values Hgb A1c (Clinic) 5.1 % (4.0-6.0) 01/25/25 09:02 Coding Level of Care Code Est Pt Level 4 (26080) Complex EM visit Add On G2211 Diagnoses Essential hypertension I10 Hypertension type: essential hypertension Cardiomyopathy, unspecified type I42.9 Cardiomyopathy type: unspecified Coronary artery disease I25.10 Paroxysmal atrial fibrillation I48.0 Atrial fibrillation type: paroxysmal Hypercholesterolemia E78.00 GERD (gastroesophageal reflux disease) K21.9 SLE (systemic lupus erythematosus) M32.9 Idiopathic chronic gout without tophus, unspecified site [id number].00X0 Chronicity: chronic Gout etiology: idiopathic Gout site: unspecified site Presence of tophus: without tophus Lower limb ulcer, ankle, left, with unspecified severity L97.329 Non-pressure ulcer stage: unspecified non-pressure ulcer stage Lymphedema I89.0 Obstructive sleep apnea G47.33 Type 2 diabetes mellitus with hyperglycemia, without long-term current use of insulin E11.65 Diabetes mellitus ad terminal makeup operator insulin use: without custodial use Assessment & Plan Assessment & Plan (1) HTN (hypertension): Code(s): I10 - Essential (primary) hypertension Category: Medical Qualifiers: Hypertension type: essential hypertension Qualified Code(s): I10 - Essential (primary) hypertension Plan: Continue with blood pressure medication. Decrease salt intake and exercise patient is on amlodipine 5 mg once a day metoprolol tartrate 25 mg twice a day (2) Cardiomyopathy: Code(s): I42.9 - Cardiomyopathy, unspecified Category: Medical Qualifiers: Cardiomyopathy type: unspecified Qualified Code(s): I42.9 - Cardiomyopathy, unspecified Plan: Control the cholesterol, weight, blood pressure (3) Coronary artery disease: Code(s): I25.10 - Atherosclerotic heart disease of [place] coronary artery without angina pectoris Category: Medical Plan: Control the cholesterol, weight, blood pressure, diabetes continue with anticoagulation and metoprolol (4) Afib: Code(s): I48.91 - Unspecified atrial fibrillation Category: Medical Qualifiers: Atrial fibrillation type: paroxysmal Qualified Code(s): I48.0 - Paroxysmal atrial fibrillation Plan: Continue with anticoagulation with Eliquis continue to monitor renal function (5) Hypercholesterolemia: Code(s): E78.00 - Pure hypercholesterolemia, unspecified Category: Medical Plan: Avoid fried foods, chicken skin, eggs, butter margarine, pastries and meat. Be it pork or beef they have a lot of cholesterol LDL goal of less than 70 and triglyceride of less than 150 patient needs to have blood work on pravastatin 20 mg once a day (6) GERD (gastroesophageal reflux disease): Code(s): K21.9 - Gastro-esophageal reflux disease without esophagitis Category: Medical Plan: Avoid the foods that causes that usually spicy foods, tomato products, juices, coffee, soda and foods that your sensitive to. After eating do not lie down, allow 3-4 hours before in lie down. And keep the head of bed above 30 degrees to avoid the acid from going up. (7) SLE (systemic lupus erythematosus): Code(s): M32.9 - Systemic lupus erythematosus, unspecified Category: Medical Plan: Continue to follow-up with dermatology on hydroxychloroquine (8) Gout: Code(s): M10.9 - Gout, unspecified Category: Medical Qualifiers: Chronicity: chronic Gout etiology: idiopathic Gout site: unspecified site Presence of tophus: without tophus Qualified Code(s): M1A.00X0 - Idiopathic chronic gout, unspecified site, without tophus (tophi) Plan: Low purine diet, keep well hydrated (9) Ulcer of left ankle: Code(s): L97.329 - Non-pressure chronic ulcer of left ankle with unspecified severity Category: Medical Qualifiers: Non-pressure ulcer stage: unspecified non-pressure ulcer stage Qualified Code(s): L97.329 - Non-pressure chronic ulcer of left ankle with unspecified severity Plan: Patient follows up with wound care and vascular (10) Lymphedema: Code(s): I89.0 - Lymphedema, not elsewhere classified Category: Medical Plan: When sitting down elevate the legs, exercise, and support stockings (11) Obstructive sleep apnea: Comment: May 2021 decline /CPAP Code(s): G47.33 - Obstructive sleep apnea (adult) (pediatric) Category: Medical Plan: has not been using and discussed about (12) Type 2 diabetes mellitus with hyperglycemia: Code(s): E11.65 - Type 2 diabetes mellitus with hyperglycemia Category: Medical Qualifiers: Diabetes mellitus ad terminal makeup operator insulin use: without custodial use Qualified Code(s): E11.65 - Type 2 diabetes mellitus with hyperglycemia Plan History of Present Illness The patient is a 69-year-old male presenting for a follow-up visit after being last seen in November 2024. He has a history of systemic lupus erythematosus, peripheral vascular disease, venous stasis dermatitis, gout, hypercholesterolemia, gastroesophageal reflux disease, and major depression. The patient also has a history of gastrointestinal bleeding, atrial fibrillation, hypertension, osteoarthritis, obstructive sleep apnea, cardiomyopathy, and coronary artery disease. The patient has been attending the wound center for a foot ulcer and has had a workup done in September 2024, which included an ultrasound showing a 2.3 cm hypoechoic area within the subcutaneous tissue of the right upper arm, possibly representing phlegmon, but no abscess was found. A partially visualized superficial venous thrombus was noted in the cephalic vein, and a partially visualized fistula graft was also observed. Blood work from September 22 showed a BUN of 55, thrombocytopenia with a platelet count of 107, anemia with hemoglobin of 10 and hematocrit of 29.9, and an MCV of 100. The patient's sodium and potassium levels were normal, but the BUN remained at 55, with a GFR of 8 and creatinine of 6.79. The patient was admitted for cellulitis and is up to date with podiatry visits, receiving ammonium lactate cream for xerosis of the skin. The patient follows up with vascular surgery for a non-healing left foot ulcer and has been hospitalized for osteomyelitis, receiving antibiotics including amoxicillin and doxycycline. An echocardiogram in September showed an ejection fraction of 20 to 25%, with severe left ventricular dysfunction and severe coronary artery disease noted on angiogram. The patient underwent a stent placement in the right coronary artery in August and had mechanical atherectomy and intravascular lithotripsy. The patient has end-stage renal disease and is on dialysis, with recent blood work showing anemia with hemoglobin of 11.6 and hematocrit of 34.3, stable thrombocytopenia, and renal function with a creatinine of 4.89. The patient is on pravastatin for hypercholesterolemia, with an LDL goal of less than 70 and triglycerides less than 150. He is also on amlodipine and metoprolol for hypertension and continues anticoagulation with Eliquis for atrial fibrillation. Health Maintenance - Patient is up to date with podiatry visits and wound care for foot ulcers. - Patient follows a low purine diet and is advised to stay hydrated. - Patient is on pravastatin with an LDL goal of less than 70 and triglycerides less than 150. - Patient is advised to eat a diet rich in vegetables and avoid fast food. - Patient is advised to use ammonium lactate cream for xerosis of the skin. Social History - Family Status: Patient lives with his who assists with care. - Nutritional Intake: Patient is advised to consume a diet rich in vegetables and avoid fast food. Review of Systems - Cardiovascular: Reports exertional pain, denies chest pain at rest. - Dermatological: Reports dry skin, denies use of lotion regularly. - Musculoskeletal: Reports left ankle pain. Physical Exam Results - Labs: BUN 55, thrombocytopenia with platelet count of 107, anemia with hemoglobin of 10 and hematocrit of 29.9, MCV 100, creatinine 6.79, GFR 8. - Imaging: Ultrasound showing 2.3 cm hypoechoic area in right upper arm, possibly phlegmon, no abscess. - Echocardiogram: EF 20-25%, severe left ventricular dysfunction, severe coronary artery disease. Plan The patient will continue with anticoagulation therapy using Eliquis, with a dosage adjustment to 2.5 mg twice daily due to renal considerations. Blood pressure management will be maintained with amlodipine and metoprolol, and the patient is advised to adhere to a low-sodium diet to aid in hypertension control. For hypercholesterolemia, the patient will continue pravastatin with a target LDL of less than 70 mg/dL and triglycerides less than 150 mg/dL. The patient is advised to follow a diet rich in vegetables and avoid fast food to support cardiovascular health and weight management. Regular follow-ups with podiatry and vascular surgery are recommended for ongoing management of foot ulcers and peripheral vascular disease. The patient is encouraged to use ammonium lactate cream regularly to manage xerosis and prevent skin breakdown. Patient was informed and verbally consented to the use of an ambient scribe for clinic note documentation during this visit. Discussion Notes During the visit, I discussed the importance of adhering to the prescribed anticoagulation regimen with Eliquis, emphasizing the need for a twice-daily dosage due to renal considerations. We reviewed the patient's blood pressure management plan, which includes amlodipine and metoprolol, and I advised maintaining a low-sodium diet to support hypertension control. I also highlighted the importance of dietary modifications, encouraging a diet rich in vegetables and avoiding fast food to improve cardiovascular health and assist with weight management. The patient was advised to continue regular follow-ups with podiatry and vascular surgery for the management of foot ulcers and peripheral vascular disease. I stressed the importance of using ammonium lactate cream regularly to manage xerosis and prevent further skin issues. Patient Instructions - Take Eliquis 2.5 mg twice daily as prescribed. - Continue taking amlodipine and metoprolol for blood pressure management. - Follow a low-sodium diet to help control blood pressure. - Maintain a diet rich in vegetables and avoid fast food. - Attend regular follow-ups with podiatry and vascular surgery. - Use ammonium lactate cream regularly to manage dry skin. Orders: Orders AMB Hemoglobin A1c Today Z13.9 - Encounter for screening, unspecified Medications: Changed From apixaban (Eliquis) 5 mg PO BID I48.0 - Paroxysmal atrial fibrillation To apixaban 2.5 mg PO BID 60 tabs 6RF I48.0 - Paroxysmal atrial fibrillation
[2025-01-25 08:56] VITALS: BP 124/70; PULSE 70; TEMP 36.2; O2SAT 99; BMI 32.6
--- OUTSIDE RECORDS SUMMARY | 2025-01-25 09:11 | XMS_ITS | Clinical Summary ---
Author Organization [facility] Address [address] [place] [address] Care Team Providers Care Animation Camera Operator Name Role Phone Steve Nguyen MD Primary Care Provider [phone] Allergies Active Allergy Reactions Criticality Noted Date [...] daily. 0 04/02/2022 Active epoetin gaby (PROCRIT) 03656 UNIT/ML injection Inject 1 mL (20,000 Units [...] 116 06/18/2022 11:27 AM EST Temperature 36.3 C (97.4 F) 06/18/2022 11:27 AM EST Respiratory Rate 18 06/18/2022 11:2 [...] PCV) 01/28/2019 01/28/2018, 12/13/2013, 05/04/2012 COVID-19 Vaccine (3 - 2023-25 season) 2024 10/18/2020, 09/27/2020 Influenza Vaccine (#1) 2025 , 03/26/2021, 04/28/2019, Additional history exists RSV Adult > 60+ Yrs or (1 - 1-dose 75+ series) 01/28/2028 Hepatitis B Vaccines Aged Out No long er eligible based on patient's age to complete this topic RSV Ped < 20 months Aged Out No longe r eligible based on patient's age to complete this topic Care Teams Animation Camera Operator Relationship Specialty Start Date End Date Po, Steve Dawn MD [address] [place] [address] Dr [address] [facility] [place] [address] PCP - General Internal Medicine 06/18/22
--- OUTSIDE RECORDS SUMMARY | 2025-01-25 09:11 | XMS_ITS | Patient Health Record ---
Author Organization [facility] Address [address] [place] [id number] Care Team Providers Care Financial Report Service Sales Agent Name Role Phone Po Steve ANDERSEN Primary Care Provider Milton Poon Unavailable [phone] Allergies No Known Allergies Reason For Referral [...] A ctive Vitamin D (Ergocalciferol) 1.25 MG (09606 UT) TAKE 1 CAPSULE BY MOUTH ONE [...] sig alcohol . He is originally from [place]. Stopped smoking in 2011; no sig alcohol . He is originally from [place]. Stopped smoking in 2011; no sig alcohol since age 48; heavy drinker from age 18 to age 48. He is originally from [place]. Stopped smoking in 2011; no sig alcohol since age 48; heavy drinker from age 18 to age 48. He is originally from [place]. Stopped smoking in 2011; no sig alcohol since age 48; heavy drinker from age 18 to age 48. He is originally from [place]. Stopped smoking in 2011; no sig alcohol since age 48; heavy drinker from age 18 to age 48. He is originally from [place]. Stopped smoking in 2011; no sig alcohol since age 48; heavy drinker from age 18 to age 48. He is originally from [place]. Problems Problem Type SNOMED Code ICD Code Onset Dates Problem Status W/U Status Risk Notes Problem 054964969 Encounter for screening for malignant neoplasm of colon (Z12.11) Active confirmed Problem 448024969 Alcoholic cirrhosis of liver without ascites (K70.30) Active confirmed Problem 372726324 Alcoholic cirrhosis of liver with ascites (K70.31) Active confirmed Problem 26289221 Constipation, unspecified constipation type (K59.00) Active confirmed Problem 323944165 Hx of adenomatou s colonic polyps (Z86.010) Active confirmed Problem Chronic liver disease (515433934) Chronic liver disease (K76.9) Active confirmed Problem 785096136 Lower extremity edema (R60.0) Active confirmed Plan Of Treatment Pending Test Test Name Order Date LIVER PROFILE 07/18/2022 LIVER PROFILE 11/20/2021 CBC w DIFF 07/18/2022 CBC w DIFF 11/20/2021 PROTHROMBIN TIME (PT, INR) 11/20/2021 PROTHROMBIN TIME (PT, INR) 01/01/2021 HEPATITIS B, C PROFILE 01/01/2021 [id number] (A1A) 01/01/2021 ALPHA-FETOPROTEIN,TUMOR MARKER 2 ALPHA-FETOPROTEIN,TUMOR MARKER 3 ALPHA-FETOPROTEIN,TUMOR MARKER 1 HCV LIVER FIBROSIS, FIBRO TEST 1 US ABDOMEN COMP WITH ELASTOGRAPHY 2020 US ABDOMEN COMP WITH ELASTOGRAPHY 2021 Prothrombin Time INR 07/18/2022 Liver Fibrosis Pnl 11/20/2021 Liver Fibrosis Pnl 07/18/2022 Mitochondrial Antibody 01/01/2021 Future Test Test Name Order Date COLONOSCOPY 04/23/2018 Insurance Providers Payer Name Payer Address Payer Phone Subscriber Number Group Number Insured Name Patient Relationship to Insured Coverage Start Date Coverage End Date [facility] [address] [address] [place] [phone] [id number] SHELL WALEKR Self - patient is the insured Medical (General) History Medical History History ICD Code Hypertension Chronic renal failure on hem odialysis 3 times per week as of the spring Diet-controlled DM Denies NH nor CVA Neuropathy in the LE's COPD Colonoscopy in 06/2012 with Wilver Dewitt--small tubular adenoma removed---previous colonoscopy in [place] had reported polyps removed as well Sleep apnea--uses CPAP Anemia Anxiety Depression Gout Lupus--Dr. Birch--Dx'd in 2019 Colonoscopy 05/2018 with removal of a sm all tubular adenoma Chronic liver disease probab ly due to EtOH seen on 12/2020 CT scan which was suggestive of cirrhosis with minimal ascites and no sign of splenomegaly--describes a neg. EGD in [place] before moving to [place]; his liver w/u was negative including normal [...] HD fistula left arm 04/2022 Laparotomy at [facility] in [facility] 2022 for what sounds like a small bowel obstruction and some small bowel resection
--- OUTSIDE RECORDS SUMMARY | 2025-01-25 09:11 | XMS_ITS | Patient Health Record ---
[facility] Address [address] [place] [address] Care Team Providers Care Surgical Services Manager Name Role Phone Steve Nguyen Primary Care Provider Dhara Marcelo Unavailable [phone] Allergies No Known Allergies Reason For Referral No Information Medications Medication SIG (Take, Route, Frequency, Duration) Notes Start Date End Date Status Ammonium Lactate 12 % 1 application Exte rnally to affected areas of dry skin to feet except for between the toes Twice a day; Duration: 30 days Active Midodrine HCl 5 MG 1 tablet Orally Twic e a day Active Eliquis 2.5 MG as directed Orally Active Pantoprazole Sodium 40 MG 1 tablet 1/2 t o 1 hour before morning meal Orally Once a day Active Plaquenil 200 MG as directed Orally Active Metoprolol Succinate 25 MG 1 capsule Ora lly Once a day Active amLODIPine Besylate 5 MG 1 tablet Orally Once a day Active Plavix 75 MG 1 tablet Orally Once a day Active Pravastatin Sodium 20 MG 1 tablet Orally Once a day Active Immunizations Vaccine Route Administration Date Status Comme nts Influenza Unknown 02/14/2024 Administered Social History Tobacco Use: Social History Observation Description Date Details (start date - stop date) Never Smoker NA - NA Tobacco use other than smoking: Question Answer Notes Are you an other tobacco user? No Tobacco Control (Standard) Question Answer Notes Tobacco use: Nonsmoker AUDIT-C (Standard) Question Answer Notes Did you have a drink containing alcohol in the p ast year? No Points 0 Interpretation Negative Problems Problem Type SNOMED Code ICD Code Onset Dates Problem Status W/U Status Risk Notes Problem Bilateral atherosclerosis of arteries of lower limbs (disorder) ([id number] ) Atherosclerosis of [place] artery of both lower extremities, with unspecified presence of clinical manifestation (I70.203) Active confirmed Q7(A), Q8(2B), Q9(1B,2 C) Vital Signs Blood pressure diastolic 70 mm Hg 12/07/2024 Height [id number] in 12/07/2024 Blood pressure systolic 145 mm Hg 12/07/2024 Weight 230 lbs 12/07/2024 BMI 33 kg/m2 12/07/2024 Encounters Encounter Location Date Provider Diagnosis [facility] [address] [place] [address] 12/07/2024 Dhara Mills Atherosclerosis of [place] artery of both lower extremities, with unspecified presence of clinical manifestation I70.203 ; Xerosis of skin L85.3 ; Tinea unguium B35.1 ; Pain in right toe(s) M79.674 and Pain in left toe(s) M79.675 Assessments Encounter Date Diagnosis (ICD Code) Assessment Notes Treatment Notes Treatment Clinical Notes Section Notes 12/07/2024 Xerosis of skin (ICD-10 - L85.3) 12/07/2024 Atherosclerosis of [place] artery of both lower extremities, with unspecified presence of clinical manifestation (ICD-10 - I70.203) Q7(A), Q8(2B), Q9(1B,2C) 12/07/2024 Tinea unguium (ICD-10 - B35.1) 12/07/2024 Pain in right toe(s) (ICD-10 - M79.674) 12/07/2024 Pain in left toe(s) (ICD-10 - M79.675) Plan Of Treatment Next Appt Details Provider Name:Dhara aguilar, 03/15/2025 10:00:00 AM, [address] [place], [address], Insurance Providers Payer Name Payer Address Payer Phone Subscriber Number Group Number Insured Name Patient Relationship to Insured Coverage Start Date Coverage End Date [employer] Medicare [id number] [address] [address] [place] [address] [phone] [id number] Kael Meyer Self - patient is the insured Medical (General) History Medical History History ICD Code Anemia Arthritis Back,Hip,and Knee pain Broken bones Cataracts Depression Gout High Blood Pressure Kidney disease Lupus Numbness Poor circulation Reflux ( GERD) Measles Mumps Chicken pox Vascular grafts Transfusions Venous stasis dermatitis Surgical History Surgery Date(Month/Year) fistula repair
--- OUTSIDE RECORDS SUMMARY | 2025-01-25 09:11 | XMS_ITS | Clinical Summary ---
Author Organization [facility] Address [address] [place] [phone] Phone Care Team Providers Care Patient Relations Director Name Role Phone Steve Nguyen MD Primary Care Provider [phone] Allergies Active Allergy Reactions Criticality Noted Date Comments Ferumoxytol Other (see comments) High 04/02/2021 Chest pain, chills Other reaction(s): Other (see comments) Chest pain, chills Medications isosorbide mononitrate (IMDUR) 30 MG 24 hr tablet Take 30 mg by mouth 1 (one) time each day 2 Active Vitamin D, Ergocalciferol, 99959 units capsule Take 1 capsule by mouth [...] DIALYSIS DAY 90 tablet 2 4 Active gabapentin (NEURONTIN) 300 MG capsule Take 300 mg by mouth in the morning. 4 Active SILVER EX Apply 1 Application topically 4 Active terazosin (HYTRIN) 5 MG capsule 1 capsule 1 (one) time each day at the same time Active ferrous sulfate 325 (65 Fe) MG tablet Take 325 mg by mouth 1 (one) time each day with breakfast Active ciclopirox (LOPROX) 0.77 % cream Apply 1 application. topically 1 (one) time each day 4 Active clopidogrel (PLAVIX) 75 MG tablet Take 75 mg by mouth 5 08/28/19 Active ammonium lactate (AMLACTIN) 12 % cream 1 Application in the morning and 1 Application in the evening. Active Active Problems Problem Noted Date Diagnosed [...] Encounters Date Type Department Care Team Description 01/17/2025 Treatment [facility] [address] [phone] Ezequiel Reyes MD End stage renal disease; Dependence on renal dialysis 01/10/2025 Treatment [facility] [address] [phone] Ezequiel Reyes MD End stage renal disease; Dependence on renal dialysis 01/07/2025 Treatment [facility] [address] [phone] Ezequiel Reyes MD End stage renal disease; Dependence on renal dialysis 12/21/2024 Telephone [facility] [address] [place] [phone] Genna Sauceda 12/20/2024 Treatment [facility] [address] [phone] Ezequiel Reyes MD End stage renal disease; Dependence on renal dialysis 12/20/2024 Telephone [facility] [address] [place] [address] [place] [phone] Genna Sauceda 12/19/2024 11:00 AM EDT Procedure visit [facility] [address] [place] [phone] Milton Stone MD End stage renal disease (HCC) (Primary Dx); 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, subsequent encounter 12/17/2024 Treatment [facility] [address] [phone] Ezequiel Reyes MD End stage renal disease; Dependence on renal dialysis 12/15/2024 Refill [facility] [address] [place] [phone] Juan Buckner MD 12/15/2024 Telephone [facility] [address] [place] [phone] [place] Tisha 12/08/2024 Treatment [facility] [address] [phone] Ezequiel Reyes MD End stage renal disease; Dependence on renal dialysis 12/01/2024 [facility] in Dialysis Clinic [facility] [address] [phone] Ezequiel Reyes MD 12/01/2024 Treatment [facility] [address] [phone] Ezequiel Reyes MD End stage renal disease; Dependence on renal dialysis 11/24/2024 Treatment [facility] [address] [phone] Ezequiel Reyes MD End stage renal disease; Dependence on renal dialysis 11/15/2024 Treatment [facility] [address] [phone] Ezequiel Reyes MD End stage renal disease; Dependence on renal dialysis 11/10/2024 [facility] [address] [phone] Ezequiel Reyes MD End stage renal disease; Dependence on renal dialysis 11/03/2024 Treatment [facility] [address] [phone] Ezequiel Reyes MD End stage renal disease; Dependence on renal dialysis 10/31/2024 Telephone [facility] [address] [place] [address] [place] [phone] Genna Sauceda 10/28/2024 10:00 AM EDT Procedure visit [facility] 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 [address] [facility] [address] [place] [phone] Ezequiel Reyes MD End stage renal disease; Dependence on renal dialysis 10/26/2024 Telephone [facility] [address] [place] [phone] Tisha Goff from Last 3 Months Immunizations Immunization Administration [...] Sign Reading Time Taken Comments Blood Pressure 146/75 12/19/2024 10:18 AM EDT Pulse 61 12/19/2024 10:18 AM EDT Temperature 36.1 C (97 F) 12/19/2024 10:18 AM EDT Respiratory Rate 14 12/19/2024 10:18 AM EDT Oxygen Saturation 98% 12/19/2024 10:18 AM EDT Inhaled Oxygen Concentration - - Weight 107 kg (235 lb 14.3 oz) 12/19/2024 10:18 AM EDT Height 177.8 cm (5' 10 ) 12/19/2024 10:18 AM EDT Body Mass Index 33.85 12/19/2024 10:18 AM EDT Plan of Treatment Upcoming Encounters Date Type Department Care Team (Late st Contact Info) Description 04/10/2025 11:00 AM EDT Procedure visit [facility] [address] [place] [phone] Health Maintenance Due Date Last [...] Visual Foot Exam 08/23/2019 Influenza Vaccine (#1) 2025 4, 03/28/2021, 03/26/2021, Additional history exists Diabetes: Hemoglobin A1C 03/15/2025 025, 09/15/2024, 06/23/2024, Additional history exists Pneumococcal Vaccine: Peds ( 0 to 5 Years) and At-Risk Patients (6 to 49 Years) Discontinued 01/28/2018, 12/13/2013, 05/04/2012 Procedures Procedure Name Priority Date/Time Associated Diagnosis Comments HEPATITIS B SURFACE ANTIGEN W/REFL CONFIRM Routine 01/19/2025 3:00 AM EDT PROTEIN, TOTAL, SERUM Routine 01/19/2025 3:00 AM EDT TRANSFERRIN SATURATION Routine 3:00 AM EDT MAGNESIUM Routine 01/19/2025 3:00 AM EDT ELECTROLYTE PANEL Routine 01/19/2025 3:0 0 AM EDT LIH (HC) Routine 01/19/2025 3:00 AM EDT LACTATE DEHYDROGENASE Routine 01/19/2025 3:00 AM EDT GLUCOSE, RANDOM Routine 01/19/2025 3:00 AM EDT BUN/CREATININE RATIO Routine 01/19/2025 3:00 AM EDT AST Routine 01/19/2025 3:00 AM EDT CREATININE, SERUM Routine 01/19/2025 3:0 0 AM EDT BILIRUBIN, TOTAL Routine 01/19/2025 3:00 AM EDT ALT Routine 01/19/2025 3:00 AM EDT CALCIUM PHOSPHORUS PRODUCT, ADJUSTED (HC) Routine 01/19/2025 3:00 AM EDT ALKALINE PHOSPHATASE Routine 01/19/2025 3:00 AM EDT FERRITIN Routine 01/19/2025 3:00 AM EDT CBC AND DIFFERENTIAL Routine 01/19/2025 3:00 AM EDT KT/V NATURAL LOG, URR (HC) Routine 01/19/2025 3:00 AM EDT POTASSIUM Routine 01/12/2025 3:00 AM EDT LIH (HC) Routine 01/12/2025 3:00 AM EDT LIH (HC) Routine 01/05/2025 3:00 AM EDT POTASSIUM Routine 01/05/2025 3:00 AM EDT PHOSPHATE ( PHOSPHORUS) Routine 01/03/2025 3:00 AM EDT LIH (HC) Routine 01/03/2025 3:00 AM EDT LIH (HC) Routine 12/29/2024 3:00 AM EDT POTASSIUM Routine 12/29/2024 3:00 AM EDT HEMOGLOBIN Routine 12/27/2024 3:00 AM EDT POTASSIUM - POST (HC) Routine 12/22/2024 3:00 AM EDT LIH (HC) Routine 12/22/2024 3:00 AM EDT KT/V NATURAL LOG, URR () Routine 12/22/2024 3:00 AM EDT LIH () Routine 12/17/2024 3:00 AM EDT KT/V NATURAL LOG, URR () Routine 12/17/2024 3:00 AM EDT HEPATITIS C ABS W/REFLEX RNA DETECTR Routine 12/13/2024 3:00 AM EDT CONFIRMATION TEST HCV Routine 12/13/2024 3:00 AM EDT TRANSFERRIN SATURATION Routine 3:00 AM EDT PROTEIN, TOTAL, SERUM Routine 12/13/2024 3:00 AM EDT MAGNESIUM Routine 12/13/2024 3:00 AM EDT ELECTROLYTE PANEL Routine 12/13/2024 3:0 0 AM EDT LIPID PANEL Routine 12/13/2024 3:00 AM EDT LIH (HC) Routine 12/13/2024 3:00 AM EDT LACTATE DEHYDROGENASE Routine 12/13/2024 3:00 AM EDT GLUCOSE, RANDOM Routine 12/13/2024 3:00 AM EDT BUN/CREATININE RATIO Routine 12/13/2024 3:00 AM EDT CREATININE, SERUM Routine 12/13/2024 3:0 0 AM EDT AST Routine 12/13/2024 3:00 AM EDT BILIRUBIN, TOTAL Routine 12/13/2024 3:00 AM EDT ALT Routine 12/13/2024 3:00 AM EDT CALCIUM PHOSPHORUS PRODUCT, ADJUSTED (HC) Routine 12/13/2024 3:00 AM EDT ALKALINE PHOSPHATASE Routine 12/13/2024 3:00 AM EDT HEPATITIS B SURFACE ANTIGEN W/REFL CONFIRM Routine 12/13/2024 3:00 AM EDT FERRITIN Routine 12/13/2024 3:00 AM EDT PTH, INTACT Routine 12/13/2024 3:00 AM EDT HEMOGLOBIN A1C Routine 12/13/2024 3:00 AM EDT CBC AND DIFFERENTIAL Routine 12/13/2024 3:00 AM EDT KT/V NATURAL LOG, URR (HC) Routine 12/13/2024 3:00 AM EDT LIH (HC) Routine 12/08/2024 3:00 AM EDT POTASSIUM Routine 12/08/2024 3:00 AM EDT LIH (HC) Routine 12/01/2024 3:00 AM EDT [...] EDT POTASSIUM Routine 10/27/2024 3:00 AM EDT from Last 3 Months Results * LIH (01/19/2025 3:00 AM EDT) Only the most recent of17 resultswithin the time period is included. Lipemia Normal Normal [facility] Icterus Normal Normal [facility] Hemolysis Normal Normal [facility] 01/19/2025 3:00 AM EDT 01/20/2025 4:35 PM EDT us Ezequiel Reyes MD LAB HISTORICA [id number] RESULTS Final Result [facility] [address] [place] [address] * (ABNORMAL) Kt/V Natural Log, URR (01/19/2025 3:00 AM EDT) Only the most recent of5 resultswithin the time period is included. Treatment Time 238 min [facility] Pre-Weight, lb 105.4 kg [facility] Post-Weight, lb 101.8 kg [facility] Ultrafiltration Rate 9 <=13 mL/kg/hr [facility] Comment: Recommend achieving Ultrafiltration Rate (UFR) <=10 mL/kg/hr References: Maria M TAFOYA et al. Kidney Int. 2010; 79(2):250-257 BUN 32(H) 7 - 25 mg/dL [facility] BUN Post Dialysis 11 7 - 25 mg/dL [facility] UREA REDUCTION RATIO (%) 66 >=65 % [facility] Kt/V Natural Log 1.26 >=1.2 [facility] 01/19/2025 3:00 AM EDT 01/20/2025 4:35 PM EDT us Ezequiel Reyes MD LAB HISTORICA [id number] RESULTS Final Result Performing Organization Address City/[facility]/ZIP Co de Phone Number [facility] [address] [place] [address] * Calcium Phosphorus Product, Adjusted (01/19/2025 3:00 AM EDT) Only the most recent of3 resultswithin the time period is included. Albumin 4.0 3.6 - 5.4 g/dL [facility] Calcium 9.5 8.6 - 10.3 mg/dL [facility] Phosphorus, Serum 4.7 2.5 - 5.0 mg/dL [facility] Ca*PO4 44.6 <55.0 mg2/dL2 [facility] Calcium, Adjusted Total 9.5 8.6 - 10.3 mg/dL [facility] CA*PO4 CORRCTD 44.6 <55.0 mg2/dL2 [facility] 01/19/2025 3:00 AM EDT 01/20/2025 4:35 PM EDT us Ezequiel Reyes MD LAB HISTORICA [id number] RESULTS Final Result Performing Organization Address [facility] Co de Phone Number [facility] [address] [place] [address] * Hepatitis B Surface Ag w/Reflex Confirmation (01/19/2025 3:00 AM EDT) Only the most recent of3 resultswithin the time period is included. Pathologist [facility] Hep B Surface Antigen Negative Negative [facility] 01/19/2025 3:00 AM EDT 01/20/2025 4:35 PM EDT Ezequiel Reyes MD LAB BLOOD ORDERABLES Final Result Performing Organization Address City/[facility] Co de Phone Number [facility] [address] [place] [address] * BUN/CREATININE RATIO (01/19/2025 3:00 AM EDT) Only the most recent of3 resultswithin the time period is included. Pathologist [facility] BUN/Creatinine Ratio 5.5 <=23.0 [facility] 01/19/2025 3:00 AM EDT 01/20/2025 4:35 PM EDT us Ezequiel Reyes MD LAB HISTORICA [id number] RESULTS Final Result Performing Organization Address [facility] Co de Phone Number [facility] [address] [place] [address] * (ABNORMAL) TSAT (01/19/2025 3:00 AM EDT) Only the most recent of3 resultswithin the time period is included. [facility] Iron 77 65 - 175 ug/dL [facility] Transferrin 167(L) 215 - 365 mg/dL [facility] TIBC 234 211 - 406 ug/dL [facility] Iron Saturation (TSat) 33 22 - 52 % [facility] 01/19/2025 3:00 AM EDT 01/20/2025 4:35 PM EDT Ezequiel Reyes MD LAB BLOOD ORDERABLES Final Result Performing Organization Address [facility] de Phone Number [facility] [address] [place] [address] * (ABNORMAL) CBC and Differential (01/19/2025 3:00 AM EDT) Only the most recent of3 resultswithin the time period is included. [facility] DIFFERENTIAL MANUAL, 2 Not Indicated [facility] White Blood Cells 5.0 4.2 - 9.1 K/uL [facility] RBC 3.28(L) 4.63 - 6.08 M/uL [facility] Hgb 11.3(L) 13.7 - 17.5 g/dL [facility] Hemoglobin x 3 33.9(L) 41.1 - 52.5 g/dL [facility] Hematocrit 34.3(L) 40.1 - 51.0 % [facility] MCV 104.6(H) 79.0 - 92.2 fL [facility] MCH 34.5(H) 25.7 - 32.2 pg [facility] MCHC 32.9 32.3 - 36.5 g/dL [facility] RDW 15.0(H) 11.6 - 14.4 % [facility] Platelets 105(L) 163 - 337 K/uL [facility] Neutrophils Relative 71.2(H) 34.0 - 67.9 % [facility] Lymphocytes Relative 15.2(L) 21.8 - 53.1 % [facility] Monocytes 12.0 5.3 - 12.2 % [facility] Eosinophils Relative 0.0(L) 0.8 - 7.0 % [facility] Basophils Relative 1.0 0.2 - 1.2 % [facility] Immature Granulocytes 0.6 0.0 - 1.0 % [facility] 01/19/2025 3:00 AM EDT 01/20/2025 4:42 PM EDT us Ezequiel Reyes MD LAB BLOOD ORDERABLES Final Result Performing Organization Address [facility] de Phone Number [facility] [address] [place] [address] * ALT (01/19/2025 3:00 AM EDT) Only the most recent of3 resultswithin the time period is included. ALT (SGPT) 13 10 - 49 U/L [facility] 01/19/2025 3:00 AM EDT 01/20/2025 4:35 PM EDT us Ezequiel Reyes MD LAB BLOOD ORDERABLES Final Result Performing Organization Address [facility] de Phone Number [facility] [address] [place] [address] * AST (01/19/2025 3:00 AM EDT) Only the most recent of3 resultswithin the time period is included. AST (SGOT) 24 <34 U/L [facility] 01/19/2025 3:00 AM EDT 01/20/2025 4:35 PM EDT us Ezequiel Reyes MD LAB BLOOD ORDERABLES Final Result Performing Organization Address [facility] Co de Phone Number [facility] [address] [place] [address] * Protein, total (01/19/2025 3:00 AM EDT) Only the most recent of3 resultswithin the time period is included. Total Protein 7.0 6.4 - 8.9 g/dL [facility] 01/19/2025 3:00 AM EDT 01/20/2025 4:35 PM EDT Ezequiel Reyes MD LAB BLOOD ORDERABLES Final Result Performing Organization Address [facility] de Phone Number [facility] [address] [place] [address] * (ABNORMAL) Alkaline phosphatase (01/19/2025 3:00 AM EDT) Only the most recent of3 resultswithin the time period is included. Alkaline Phosphatase 134(H) 46 - 116 U/L [facility] 01/19/2025 3:00 AM EDT 01/20/2025 4:35 PM EDT Ezequiel Reyes MD LAB BLOOD ORDERABLES Final Result Performing Organization Address [facility] de Phone Number [facility] [address] [place] [address] * Magnesium (01/19/2025 3:00 AM EDT) Only the most recent of3 resultswithin the time period is included. Magnesium 2.2 1.9 - 2.7 mg/dL [facility] 01/19/2025 3:00 AM EDT 01/20/2025 4:35 PM EDT us Ezequiel Reyes MD LAB BLOOD ORDERABLES Final Result Performing Organization Address [facility] Co de Phone Number [facility] [address] [place] [address] * (ABNORMAL) Lactate dehydrogenase (01/19/2025 3:00 AM EDT) Only the most recent of3 resultswithin the time period is included. LDH 290(H) 120 - 246 U/L [facility] 01/19/2025 3:00 AM EDT 01/20/2025 4:35 PM EDT Ezequiel Reyes MD LAB BLOOD ORDERABLES Final Result Performing Organization Address [facility] Co de Phone Number [facility] [address] [place] [address] * Glucose, random (01/19/2025 3:00 AM EDT) Only the most recent of3 resultswithin the time period is included. Glucose 78 70 - 99 mg/dL [facility] Comment: ADA guidelines outline the following fasting glucose ranges: Normal: <100 Prediabetes: 100-125 Diabetes: >125 01/19/2025 3:00 AM EDT 01/20/2025 4:35 PM EDT Ezequiel Reyes MD LAB BLOOD ORDERABLES Final Result Performing Organization Address [facility] de Phone Number [facility] [address] [place] [address] * (ABNORMAL) Ferritin (01/19/2025 3:00 AM EDT) Only the most recent of3 resultswithin the time period is included. Ferritin 1,265(H) 22 - 322 ng/mL [facility] 01/19/2025 3:00 AM EDT 01/20/2025 4:35 PM EDT Ezequiel Reyes MD LAB BLOOD ORDERABLES Final Result Performing Organization Address [facility] Co de Phone Number [facility] [address] [place] [address] * (ABNORMAL) Creatinine, serum (01/19/2025 3:00 AM EDT) Only the most recent of3 resultswithin the time period is included. Creatinine 5.85(H) 0.70 - 1.30 mg/dL [facility] 01/19/2025 3:00 AM EDT 01/20/2025 4:35 PM EDT Ezequiel Reyes MD LAB BLOOD ORDERABLES Final Result Performing Organization Address [facility] de Phone Number [facility] [address] [place] [address] * (ABNORMAL) Bilirubin, total (01/19/2025 3:00 AM EDT) Only the most recent of3 resultswithin the time period is included. Total Bilirubin 1.5(H) 0.3 - 1.2 mg/dL [facility] 01/19/2025 3:00 AM EDT 01/20/2025 4:35 PM EDT us Ezequiel Reyes MD LAB BLOOD ORDERABLES Final Result Performing Organization Address [facility] de Phone Number [facility] [address] [place] [address] * (ABNORMAL) Electrolyte panel (01/19/2025 3:00 AM EDT) Only the most recent of3 resultswithin the time period is included. Sodium 138 136 - 145 mEq/L [facility] Potassium 3.9 3.4 - 5.0 mEq/L [facility] Chloride 94(L) 98 - 107 mEq/L [facility] Bicarbonate (CO2) 29 21 - 31 mEq/L [facility] Anion Gap 15(H) 3 - 14 mEq/L [facility] 01/19/2025 3:00 AM EDT 01/20/2025 4:35 PM EDT us Ezequiel Reyes MD LAB BLOOD ORDERABLES Final Result Performing Organization Address [facility] de Phone Number [facility] [address] [place] [address] * Potassium (01/12/2025 3:00 AM EDT) Only the most recent of9 resultswithin the time period is included. Potassium 3.8 3.4 - 5.0 mEq/L [facility] 01/12/2025 3:00 AM EDT 01/13/2025 12:30 PM EDT us Ezequiel Reyes MD LAB BLOOD ORDERABLES Final Result Performing Organization Address [facility] Co de Phone Number [facility] [address] [place] [address] * (ABNORMAL) Phosphorus (01/03/2025 3:00 AM EDT) Only the most recent of3 resultswithin the time period is included. Phosphorus, Serum 5.6(H) 2.5 - 5.0 mg/dL [facility] 01/03/2025 3:00 AM EDT 01/04/2025 2:04 PM EDT us Ezequiel Reyes MD LAB BLOOD ORDERABLES Final Result Performing Organization Address [facility] de Phone Number [facility] [address] [place] [address] * (ABNORMAL) Hemoglobin (12/27/2024 3:00 AM EDT) Only the most recent of3 resultswithin the time period is included. Hgb 11.3(L) 13.7 - 17.5 g/dL [facility] Hemoglobin x 3 33.9(L) 41.1 - 52.5 g/dL [facility] 12/27/2024 3:00 AM EDT 12/28/2024 12:59 PM EDT us Ezequiel Reyes MD LAB BLOOD ORDERABLES Final Result Performing Organization Address City/[facility] Co de Phone Number [facility] [address] [place] [address] * (ABNORMAL) POTASSIUM - POST (12/22/2024 3:00 AM EDT) Pathologist [facility] Potassium, Post 3.1(L) 3.4 - 5.0 mEq/L [facility] 12/22/2024 3:00 AM EDT 12/23/2024 3:41 PM EDT Ezequiel Reyes MD LAB HISTORICA [id number] RESULTS Final Result Performing Organization Address [facility] de Phone Number [facility] [address] [place] [address] * Confirmation Test HCV (12/13/2024 3:00 AM EDT) [facility] Hep C Ab Confirmation Not needed [facility] 12/13/2024 3:00 AM EDT 12/14/2024 1:27 PM EDT Ezequiel Reyes MD LAB BLOOD ORDERABLES Final Result Performing Organization Address [facility] de Phone Number [facility] [address] [place] [address] * HEPATITIS C ABS W/REFLEX RNA DETECTR (12/13/2024 3:00 AM EDT) [facility] Hep C Virus Ab Non-Reacti ve Non-Reacti ve [facility] 12/13/2024 3:00 AM EDT 12/14/2024 1:19 PM EDT Ezequiel Reyes MD LAB HISTORICA [id number] RESULTS Final Result Performing Organization Address [facility] de Phone Number [facility] [address] [place] [address] * PTH, Intact (12/13/2024 3:00 AM EDT) [facility] PTH, Intact 334 160 - 721 pg/mL [facility] Comment: Suggested (KDIGO) ESRD maintenance range is two to nine times the upper normal limit (80.1 pg/mL) for the laboratory. 12/13/2024 3:00 AM EDT 12/14/2024 1:19 PM EDT Ezequile Reyes MD LAB BLOOD ORDERABLES Final Result Performing Organization Address [facility] de Phone Number APS ASCIVETT [facility] [address] [place] [address] * Hemoglobin A1c (12/13/2024 3:00 AM EDT) Hemoglobin A1C 4.8 <5.7 % [facility] Comment: Methodology: Enzymatic Normal: <5.7% Prediabetes: 5.7-6.4% Diabetes: >6.4% Diabetic Glucose Control Evaluation: Therapeutic action suggested at >8.0% ADA recommends a glycemic goal of <7.0% 12/13/2024 3:00 AM EDT 12/14/2024 1:27 PM EDT Ezequiel Reyes MD LAB BLOOD ORDERABLES Final Result Performing Organization Address [facility] de Phone Number [facility]PS [facility] [address] [place] [address] * (ABNORMAL) Lipid panel (12/13/2024 3:00 AM EDT) Cholesterol 104 mg/dL [facility] Comment: Optimal: <200 Borderline: 200-239 High Risk: >239 Triglycerides 69 mg/dL [facility] Comment: Optimal: <150 Borderline: 150-200 High Risk: >200 HDL 44(L) mg/dL [facility] Comment: Optimal: >59 Borderline: 40-59 High Risk: <40 LDL-Calc 46 mg/dL [facility] Comment: Optimal: <100 Borderline: 100-159 High Risk: >159 VLDL Cholesterol Ravi 14 mg/dL [facility] Comment: Optimal: <30 Borderline: 30-40 High Risk: >40 Chol/HDL Ratio 2.4 [facility] Comment: Optimal: <3.3 High Risk: >6.2 12/13/2024 3:00 AM EDT 12/14/2024 1:19 PM EDT us Ezequiel Reyes MD LAB BLOOD ORDERABLES Final Result MELISA Montoya [address] [place] [address] from Last 3 Months Insurance Medicare Member Subscriber Plan / Payer (Ef fective 2024-Present) Name:Dimitrios Meyer Relation to Subscriber:Self Name:Dimitrios Meyer Payer ID:[id number] (NAIC) Type:Not on file Address: [place] [phone] Medicare Medicare Care Teams Patient Relations Director Relationship Specialty Start Date End Date Steve Nguyen MD [facility] [address] [place], [place] PCP - General 04/19/19
--- OUTSIDE RECORDS SUMMARY | 2025-01-25 09:11 | XMS_ITS | Encounter Summary ---
Author Organization [facility] Address [address] [place] [address] Phone Care Team Providers Care Hospital Chief Executive Officer Name Role Phone Steve Nguyen MD Primary Care Provider [phone] Encounter Details Date Type Department Care Team (Late st Contact Info) Description 07/09/2020 Procedure Pass [facility] [address] [place], [place] [id number] Social History Tobacco Use Types Packs/Day Years Used Date Smoking Tobacco: Former Smokeless Tobacco: Never Alcohol Use Standard Drinks/Week Comments Not Currently 0 (1 standard drink = 0.6 oz pur e alcohol) Sex and Gender Information Value Date Recorded Sex Assigned at Male 08/27/2021 8:48 PM EDT Legal Sex Male 9:58 PM EDT Gender Identity Male 08/27/2021 8:48 PM EDT Sexual Orientation Straight 08/27/2021 8: 48 PM EDT documented as of this encounter Plan of Treatment Not on file documented as of this encounter Visit Diagnoses Not on filedocumented in this encounter Additional Health Concerns Infection Onset Date Last Indicated Resolved Time CoV-Risk 04/02/2021 04/02/2021 04/12/2021 1:25 AM EDT MRSA 06/09/2023 06/09/2023 documented as of this encounter Care Teams Hospital Chief Executive Officer Relationship Specialty Start Date End Date Steve Nguyen MD [address] [place] [id number] PCP - General 04/02/17 documented as of this encounter Additional Source Comments The information contained in this document represents components of the legal health record. It is not the complete legal health record.[facility]
== END 2025-01-25 09:34 | disposition home or self-care (01) ==
LOC: HO.HMCH 08:52
PROVIDERS: PCP Internal Medicine; Visit Provider Internal Medicine
DX: I42.9 Cardiomyopathy, unspecified (principal); I48.0 Paroxysmal atrial fibrillation; M32.9 Systemic lupus erythematosus, unspecified; L97.329 Non-pressure chronic ulcer of left ankle with unspecified severity; E11.65 Type 2 diabetes mellitus with hyperglycemia; I10 Essential (primary) hypertension; I25.10 Atherosclerotic heart disease of native coronary artery without angina pectoris; E78.00 Pure hypercholesterolemia, unspecified; K21.9 Gastro-esophageal reflux disease without esophagitis; M1A.00X0 Idiopathic chronic gout, unspecified site, without tophus (tophi); I89.0 Lymphedema, not elsewhere classified

== ENCOUNTER → 2025-01-25 08:52 | Outpatient (BNVA) | payer MEDICARE, SELFPAY | PROVIDERS: PCP Internal Medicine; Visit Provider Internal Medicine | DX: I10 Essential (primary) hypertension (principal); I42.9 Cardiomyopathy, unspecified; I25.10 Atherosclerotic heart disease of native coronary artery without angina pectoris; I48.0 Paroxysmal atrial fibrillation; K21.9 Gastro-esophageal reflux disease without esophagitis; M32.9 Systemic lupus erythematosus, unspecified; M1A.00X0 Idiopathic chronic gout, unspecified site, without tophus (tophi); L97.329 Non-pressure chronic ulcer of left ankle with unspecified severity; I89.0 Lymphedema, not elsewhere classified; G47.33 Obstructive sleep apnea (adult) (pediatric); E11.65 Type 2 diabetes mellitus with hyperglycemia | CPT/HCPCS: 83036; 99212 ==

== ENCOUNTER → 2025-02-11 23:59 | Outpatient (BNV) | payer MEDICARE, SELFPAY ==
--- NOTE | 2025-03-18 21:45 | A.OFFVIS_ITS ---
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- [facility] Allergies No Known Allergies (No Known Allergies*) Allergy (Verified 03/10/25 10:35) PFS Medical History (Updated 03/11/25 @ 00:00 by Oly Reeves) Type 2 diabetes mellitus with hyperglycemia ESRD (end stage renal disease) Blood clot in arm (~04/11/24) CKD (chronic kidney disease) stage 4, GFR 15-29 ml/min Obstructive sleep apnea HTN (hypertension) Dermatitis associated with moisture from stool incontinence Clostridioides difficile diarrhea Urinary retention with incomplete bladder emptying Pacemaker Pancytopenia Incomplete emptying of bladder due to benign prostatic hyperplasia Acute kidney injury superimposed on chronic kidney disease Fistula Paroxysmal A-fib Diastolic heart failure Pulmonary hypertension Depression, major Afib Bradycardia Scrotal edema Anasarca Cirrhosis Lymphedema Osteoarthritis Peripheral neuropathy BPH (benign prostatic hyperplasia) Venous stasis dermatitis Obesity (BMI 30-39.9) Hypercholesterolemia Peripheral vascular disease Pulmonary hypertension Essential thrombocytopenia Anemia COPD (chronic obstructive pulmonary disease) Diabetic retinopathy Chronic kidney disease Lumbar degenerative disc disease High cholesterol Edema Gout Surgical History S/P cardiac catheterization Hx of cardiac pacemaker History of bowel diversion surgery History of gastric surgery H/O prior ablation treatment History of carpal tunnel release History of bilateral cataract extraction History of tonsillectomy Family History Father Prostate cancer CVD (cardiovascular disease) Mother Hemochromatosis Brother Motor vehicle accident Sister CAD (coronary artery disease) Maternal Grandfather Myocardial infarction Social History Household Members: Spouse Housing: House Do you presently have visiting nurse or other home services: No Alcohol intake: never Patient Tobacco Use Status: Former Tobacco user Tobacco use type: Cigarette Smoked in Last 30 Days: No e-Cigarette/Vaping Use: Former Use Second Hand Smoke Exposure: Yes Use of substances other than those prescribed or required for medical reasons: No Advance Directives: Yes Advance Directives on File: Yes Advance Directives Date on File: 11/06/22 service: No Current occupational status: retired Cognitive needs: Yes (Cane) Hearing needs: Yes Vision needs: Yes (Glasses) Office Procedures Cardiac Device Check Cardiac Device Check Details: [id number] Good battery life CATHODE RAY 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
== END ==
PROVIDERS: PCP Internal Medicine; Visit Provider Internal Medicine Cardiovascular Disease
DX: Z45.018 Encounter for adjustment and management of other part of cardiac pacemaker (principal)
CPT/HCPCS: 93294

== ENCOUNTER 2025-03-10 10:18 | Emergency (ER) | payer MEDICARE, SELFPAY ==
[2025-03-10 10:26] VITALS: BP 135/49; BP 140/80; PULSE 63; PULSE 70; RESP 16; TEMP 37.1; O2SAT 94; O2SAT 99; BMI 32.8
[2025-03-10 10:37] VITALS: BP 135/49; PULSE 63; RESP 16; TEMP 37.1; O2SAT 95
--- NOTE | 2025-03-10 11:04 | PC.NURSE ---
Addendum entered by Marly Anaya RN 03/10/25 11:10: Patient presents with intermittent weakness for several years. Was attempting to get oob and was unable to get up. Alert and oriented. frame assembler maintained and paced rhythm noted. Lungs essentially clear bilat. respirations even and non-labored. Denies any CP or SOB. Abdomen soft non-tender with positive bowel sounds. KATHRINE AVF with positive bruit and thrill. LE edema noted. Skin tight and thick. Original Note: Medical History Type 2 diabetes mellitus with hyperglycemia ESRD (end stage renal disease) Blood clot in arm (~04/11/24) CKD (chronic kidney disease) stage 4, GFR 15-29 ml/min Obstructive sleep apnea HTN (hypertension) Dermatitis associated with moisture from stool incontinence Clostridioides difficile diarrhea Urinary retention with incomplete bladder emptying Pacemaker Pancytopenia Incomplete emptying of bladder due to benign prostatic hyperplasia Acute kidney injury superimposed on chronic kidney disease Fistula Paroxysmal A-fib Diastolic heart failure Pulmonary hypertension Depression, major Afib Bradycardia Scrotal edema Anasarca Cirrhosis Lymphedema Osteoarthritis Peripheral neuropathy BPH (benign prostatic hyperplasia) Venous stasis dermatitis Obesity (BMI 30-39.9) Hypercholesterolemia Peripheral vascular disease Pulmonary hypertension Essential thrombocytopenia Anemia COPD (chronic obstructive pulmonary disease) Diabetic retinopathy Chronic kidney disease Lumbar degenerative disc disease High cholesterol Edema Gout
[2025-03-10 11:09] VITALS: BP 145/58; PULSE 60; RESP 20; O2SAT 95
--- NOTE | 2025-03-10 12:00 | ED_ITS ---
HPI - Weakness General Chief complaint: Weakness Stated complaint: WEAKNESS,DIFFICULTY AMBULATING, DIALYSIS T-1 Time Seen by Provider: 03/10/25 11:47 Source: patient and EMS Mode of arrival: EMS Limitations: no limitations History of Present Illness ED Provider: HPI Narrative: 70-year-old male, end-stage renal disease on hemodialysis, Thursday, has not missed his dialysis, he states he was getting out of bed and he has a carpet that is slipped and he landed on his buttocks and was not able to get up so EMS was called as he lives with elderly she was not able to lift him, he states he has VNA coming to manage his chronic wounds in the lower extremities, dressings were changed 2 days ago, there was no report of dyspnea, there was no question of sepsis, he denies headache, head injury, neck pain, chest pain, shortness of breath, abdominal pain, states he is otherwise safe at home and has a enough support. Related Data Home Medications ?Medication ?Instructions ?Recorded ?Confirmed polyethylene glycol 3350 17 gram 17 g PO DAILY PRN Con stipation 09/24/22 12/07/24 oral powder packet (Miralax) sevelamer carbonate 800 mg tablet 800 mg PO TID 12/07/24 ergocalciferol (vitamin D2) 50 mcg 50 mcg PO DAILY 07/0812/07/24 (2,000 unit) capsule midodrine 5 mg tablet 5 mg PO DAILY 08/14/2312/07 ferrous sulfate 325 mg (65 mg 325 mg PO DAILY 11/24/24 12/07/24 iron) tablet Previous Rx's ?Medication ?Instructions ?Recorded kylah.stocking,knee,reg,xlrg #12 ea 11/01/20 compr.stocking,thigh,reg,x-lrg #12 ea 05/31/21 Juxta Lite Compression wraps - #2 ea 07/02/21 Adjustable -for chronic ulcers with open wounds bilat lower extremities APAP 5-15 cm H20 humidified AIR #1 ea 09/06/21 amlodipine 5 mg tablet 5 mg PO DAILY #90 tabs 10/29 metoprolol tartrate 25 mg tablet 25 mg PO BID #180 tab s 04/29/24 hydroxychloroquine 200 mg tablet 200 mg PO Q OTHER DAY #30 tabs 05/27/24 clopidogrel 75 mg tablet 75 mg PO DAILY #120 tabs 12/07 pravastatin 20 mg tablet 20 mg PO DAILY #90 tabs 12/07 apixaban 2.5 mg tablet 2.5 mg PO BID #60 tabs 01/25 blood sugar diagnostic (FreeStyle #200 ea 01/27/25 Lite Strips) blood-glucose meter (FreeStyle #1 ea 01/27/25 Lite Meter kit) lancets 28 gauge (FreeStyle #200 ea 01/27/25 Lancets) Allergies Allergy/AdvReac Type Severity Reaction Status Date / Time No Known Allergies (No Known Allergy Verified 03/10/25 10:35 Allergies*) Review of Systems Constitutional: Constitutional: Reports as per [facility] Past Medical History Medical History (Updated 03/10/25 @ 13:28 by Jameel Gordon DO) Type 2 diabetes mellitus with hyperglycemia ESRD (end stage renal disease) Blood clot in arm (~04/11/24) CKD (chronic kidney disease) stage 4, GFR 15-29 ml/min Obstructive sleep apnea HTN (hypertension) Dermatitis associated with moisture from stool incontinence Clostridioides difficile diarrhea Urinary retention with incomplete bladder emptying Pacemaker Pancytopenia Incomplete emptying of bladder due to benign prostatic hyperplasia Acute kidney injury superimposed on chronic kidney disease Fistula Paroxysmal A-fib Diastolic heart failure Pulmonary hypertension Depression, major Afib Bradycardia Scrotal edema Anasarca Cirrhosis Lymphedema Osteoarthritis Peripheral neuropathy BPH (benign prostatic hyperplasia) Venous stasis dermatitis Obesity (BMI 30-39.9) Hypercholesterolemia Peripheral vascular disease Pulmonary hypertension Essential thrombocytopenia Anemia COPD (chronic obstructive pulmonary disease) Diabetic retinopathy Chronic kidney disease Lumbar degenerative disc disease High cholesterol Edema Gout Surgical History S/P cardiac catheterization Hx of cardiac pacemaker History of bowel diversion surgery History of gastric surgery H/O prior ablation treatment History of carpal tunnel release History of bilateral cataract extraction History of tonsillectomy Family History Family History Father Prostate cancer CVD (cardiovascular disease) Mother Hemochromatosis Brother Motor vehicle accident Sister CAD (coronary artery disease) Maternal Grandfather Myocardial infarction Social History Social History Household Members: Spouse Housing: House Do you presently have visiting nurse or other home services: No Alcohol intake: never Patient Tobacco Use Status: Former Tobacco user Tobacco use type: Cigarette Smoked in Last 30 Days: No e-Cigarette/Vaping Use: Former Use Second Hand Smoke Exposure: Yes Use of substances other than those prescribed or required for medical reasons: No Advance Directives: Yes Advance Directives on File: Yes Advance Directives Date on File: 11/06/22 service: No Current occupational status: retired Cognitive needs: Yes (Cane) Hearing needs: Yes Vision needs: Yes (Glasses) Physical Exam Vital Signs: Vital Signs: Last Vital Signs Temp 98.7 F 03/10/25 10:37 Pulse 60 03/10/25 11:09 Resp 20 03/10/25 11:09 BP 145/58 H 03/10/25 11:09 Pulse Ox 95 03/10/25 11:09 O2 Del Method Room Air 03/10/25 11:09 BMI result Body Mass Index 32.8 Const: Other: * Gen: Chronically ill-appearing, no facial or head injury * HEENT: No oral trauma * Neck: Supple, no LAD * CV: S1-S2, right AV fistula functional * Resp: ?No wheezing rales rhonchi no stridor moving air well * Abd: ?Bowel sounds are present, no tenderness no rebound no rigidity * MSK: FROM, strength 5/5 all extremities * Skin: Chronic venous stasis changes with dry noninfected ulcers bilateral lower extremities * Neuro: ?Alert and oriented x3, moving upper and lower extremities symmetrical ly, no obvious facial asymmetry noted Medical Decision Making Medical Decision Making MDM Narrative: 1:24 PM 03/10/2025 (Dr. Jameel Gordon): I evaluated the patient he presented with nonsyncopal slip on a carpeted, P had no other concerns and he states he was brought to the ER because he was not able to get off the floor, he does have VNA that comes in and does wound dressing changes, I removed the dressings that he had on his in his legs, he has non weeping wounds on both legs consistent with chronic venous disease, he has no facial injury, no head injury, no tenderness along his back, he has not missed his dialysis, he is able to move his upper and lower extremities quite symmetrically without assistance, I have asked the nurse to perform ambulatory trial and re-dress his wounds, during ambulatory trial patient had did very well while using his walker he did not have any gait instability, he told me that he is safe at home and he has a enough support and I am going to be discharging patient home. Differential Diagnosis Differential Diagnoses: The differential diagnosis associated with the presentation includes (Failure to thrive, head injury, neck injury, wound infection, hip fracture) Admission/Observation Consideration of admission/observation: Escalation of care including admission/observation considered Tests considered The following testing was considered but not selected: CT brain, CT cervical spine, CBC, CMP, ECG Prescription Management I considered prescription management with: Antibiotic Chronic Conditions Patient?s care impacted by: Other (End-stage renal disease on hemodialysis) Discharge Plan Discharge Clinical Impression: Fall from slipping, Skin ulcer of multiple sites of lower extremity Patient Disposition: Home, Self-Care Additional Instructions: Evaluated after slipping off bed, physical exam in the ER reassuring there is no evidence of any trauma sustained from slip and fall, he required assistance to get up, I performed ambulatory trial in the emergency department and you did very well while use any walker, we discussed some basic fall prevention techniques, your shoes do not have a good enterprise integration developer and they are slippery, you also had a carpet next to your bed which is a common reason why people slip and fall, you had wounds that I examined in the emergency department, they do not appear to be infected, you have VNA that comes to the home as you reported to me to perform dressing changes, make sure to continue with hemodialysis, make sure to take all your medications regular basis, I was otherwise reassured by your vital signs physical exam and will be discharging you home. Prescriptions: No Action (DME) kylah.stocking,knee,reg,xlrg Misc See Rx Instructions .ROUTE .MEDSUPPLY Qty: 12 0RF Rx Instructions: As directedcompression stockings bilateral adjustable lower extremity garments (DME) compr.stocking,thigh,reg,x-lrg Misc See Rx Instructions .Route Qty: 12 0RF Rx Instructions: As directed 20-30 mm HG (DME) Juxta Lite Compression wraps - Adjustable -for chronic ulcers with open wounds bilat lower extremities See Rx Instructions .Route .MEDSUPPLY Qty: 2 0RF Rx Instructions: As directed amlodipine 5 mg tablet 5 mg PO DAILY Qty: 90 1RF metoprolol tartrate 25 mg tablet 25 mg PO BID Qty: 180 3RF hydroxychloroquine 200 mg tablet 200 mg PO Q OTHER DAY Qty: 30 2RF pravastatin 20 mg tablet 20 mg PO DAILY Qty: 90 3RF (DME) blood-glucose meter [FreeStyle Lite Meter] Kit See Rx Instructions .ROUTE .MEDSUPPLY Qty: 1 0RF Rx Instructions: As directed (DME) FreeStyle Lite Strips Strip See Rx Instructions .ROUTE .MEDSUPPLY Qty: 200 3RF Rx Instructions: As directed check the BS BID (DME) lancets [FreeStyle Lancets] 28 gauge misc See Rx Instructions .ROUTE .MEDSUPPLY Qty: 200 3RF Rx Instructions: As directed check BS BID polyethylene glycol 3350 [Miralax] 17 gram powder in packet 17 g PO DAILY PRN (Reason: Constipation) ferrous sulfate 325 mg (65 mg iron) tablet 325 mg PO DAILY (DME) APAP 5-15 cm H20 humidified AIR See Rx Instructions .Route .MEDSUPPLY Qty: 1 0RF Rx Instructions: As directed sevelamer carbonate 800 mg tablet 800 mg PO TID ergocalciferol (vitamin D2) 50 mcg (2,000 unit) capsule 50 mcg PO DAILY midodrine 5 mg tablet 5 mg PO DAILY clopidogrel 75 mg tablet 75 mg PO DAILY Qty: 120 3RF apixaban 2.5 mg tablet 2.5 mg PO BID Qty: 60 6RF Print Language: Iraqi
--- OUTSIDE RECORDS SUMMARY | 2025-03-10 12:13 | XMS_ITS | Encounter Summary ---
Author Organization [facility] Address [address] [place] [address] Phone Care Team Providers Care Leguillon Debeader Name Role Phone Steve Nguyen MD Primary Care Provider [phone] Reason for Visit * Reason Comments Med Refill Encounter Details Date Type Department Care Team ([facility] Contact Info) Description 04/01/2022 Refill [facility] [address] [place] [address] Bakari Wells MD [address] [place] [address] [place] [address] Social History Tobacco Use Types [...] Upcoming Encounters Date Type Department Care Team ([facility] Contact Info) Description 04/10/2025 11:00 AM EDT Procedure visit [facility] [address] [place] [address] documented as of this encounter Visit Diagnoses Not on filedocumented in this encounter Care Teams Leguillon Debeader Relationship Specialty Start Date End Date Steve Nguyen MD [facility] [address] [place], [place] PCP - General 04/19/19 documented as of this encounter
--- OUTSIDE RECORDS SUMMARY | 2025-03-10 12:13 | XMS_ITS | Encounter Summary ---
Author Organization [facility] Address [address] [place] [address] Phone Care Team Providers Care Gizzard Puller Name Role Phone Steve Nguyen MD Primary Care Provider Encounter Details Date Type Department Care Team (Late st Contact Info) Description 03/24/2022 Documentation Only [facility] [address] [place] [address] Sahara Rousseau PA [address] [place] [address] Social History Tobacco Use Types Packs/Day Years [...] visit [facility] [place] [address] [place] [address] documented as of this encounter Visit Diagnoses Not on filedocumented in this encounter Care Teams Gizzard Puller Relationship Specialty Start Date End Date Steve Nguyen MD [facility] [address] [place], [place] PCP - General 04/19/19 documented as of this encounter
--- OUTSIDE RECORDS SUMMARY | 2025-03-10 12:13 | XMS_ITS | Encounter Summary ---
Author Organization [facility]. Address [address] [address] Phone Care Team Providers Care Occup Therapist Name Role Phone Steve Nguyen MD Primary Care Provider [phone] Encounter Details Date Type Department Care Team (Late st Contact Info) Description 03/04/2025 Treatment [facility] [address] [address] Bianca Reyes MD [address] [address] End stage renal disease; Dependence [...] Dialysis Note - Bianca Reyes MD - 03/04/2025 12:00 AM EDT BASIC NOTE Patient: Dimitrios Meyer : 1955 Note Author: BIANCA REYES MD Service Date: 03/04/2025 This patient was personally seen [id number] for a basic visit as part of routine monthly dialysis care for end stage renal disease. Attending Blemish Remover: BIANCA REYES MD Dialysis Location: [facility] Schedule: Shift: 1 OVERVIEW Patient is stable. HOME MEDICATIONS Current [facility] Medications acetaminophen (TYLENOL) tablet Take by mouth every 6 (six) hours if needed for mild pain Start Date: albuterol (PROVENTIL HFA;VENTOLIN HFA) inhaler Inhale 2 puffs every 6 (six) hours if needed for wheezing Start Date: amLODIPine (NORVASC) tablet Take 5 mg by mouth 1 (one) time each day Start Date: ammonium lactate (AMLACTIN) cream 12% 1 Application in the morning and 1 Application in the evening. Start Date: apixaban (ELIQUIS) tablet Take 5 mg by mouth in the morning and 5 mg in the evening. Start Date: ciclopirox (LOPROX) cream 0.77% Apply 1 application. topically 1 (one) time each day Start Date: 05/26/2024 clopidogrel (PLAVIX) tablet 75 mg Take 75 mg by mouth Start Date: 09/01/2024 ferrous sulfate tablet 325 mg Take 325 mg by mouth 1 (one) time each day with breakfast Start Date: gabapentin (NEURONTIN) capsule Take 300 mg by mouth in the morning. Start Date: 04/15/2024 hydroxychloroquine (PLAQUENIL) tablet 200 mg Take by mouth 1 (one) time each day Start Date: isosorbide mononitrate (IMDUR) 24 hr tablet Take 30 mg by mouth 1 (one) time each day Start Date: 10/19/2021 metoprolol succinate (TOPROL-XL) 24 hr tablet Take 25 mg by mouth 1 (one) time each day Do not crush or chew. Start Date: midodrine (PROAMATINE) 5 MG tablet TAKE 1 TABLET BY MOUTH IN MORNING BEFORE DIALYSIS ONLY ON DIALYSIS DAY Start Date: 04/05/2024 pravastatin (PRAVACHOL) tablet Take 20 mg by mouth 1 (one) time each day Start Date: sevelamer carbonate (RENVELA) tablet 800 [...] day at the same time Start Date: VITAMIN D (ERGOCALCIFEROL) 04637 UNITS PO CAPS Take 1 capsule by mouth Start Date: 05/20/2022 Current [facility] Allergies Allergen: FERUMOXYTOL Reaction: Other (see comments) Severity: High ADEQUACY ASSESSMENT Kt/V, Natural Log 1.38 (02/21/25) 1.17 (02/16/25) 1.26 (01/19/25) UREA REDUCTION RATIO (%) 69 (02/21/25) 64 (02/16/25) 66 (01/19/25) BUN 35 (02/21/25) 36 (02/16/25) 32 (01/19/25) BUN Post Dialysis 11 (02/21/25) 13 (02/16/25) 11 (01/19/25) Creatinine 5.52 (02/16/25) 5.85 (01/19/25) 6.10 (12/13/24) Bicarbonate (CO2) 27 (02/16/25) 29 (01/19/25) 24 (12/13/24) Sodium 135 (02/16/25) 138 (01/19/25) 133 (12/13/24) ANEMIA ASSESSMENT Hgb 11.0 (03/02/25) 11.5 (02/16/25) 11.5 (02/02/25) Iron Saturation (TSat) 38 (02/16/25) 33 (01/19/25) 34 (12/13/24) Ferritin 1,418 (02/16/25) 1,265 (01/19/25) 1,137 (12/13/24) Iron 83 (02/16/25) 77 (01/19/25) 80 (12/13/24) TIBC 221 (02/16/25) 234 (01/19/25) 237 (12/13/24) MCV 103.6 (02/16/25) 104.6 (01/19/25) 104.5 (12/13/24) Platelets 98 (02/16/25) 105 (01/19/25) 109 (12/13/24) BMM ASSESSMENT Calcium, Adjusted Total 9.6 02/16/25 9.5 01/19/25 9.4 12/13/24 Calcium 9.5 02/16/25 9.5 01/19/25 9.4 12/13/24 Phosphorus, Serum 4.6 02/16/25 4.7 01/19/25 5.6 01/03/25 Ca*PO4 43.7 02/16/25 44.6 01/19/25 61.1 12/13/24 PTH, Intact 334 12/13/24 253 09/15/24 362 06/23/24 Magnesium 2.1 02/16/25 2.2 01/19/25 2.2 12/13/24 Alkaline Phosphatase 142 02/16/25 134 01/19/25 132 12/13/24 Aluminum 7 06/23/24 5 05/28/24 NUTRITION ASSESSMENT Albumin 3.9 02/16/25 4.0 01/19/25 4.1 12/13/24 Potassium 3.6 03/02/25 3.3 02/23/25 3.4 02/16/25 Hemoglobin A1C 4.8 12/13/24 5.1 09/15/24 4.4 06/23/24 ADDITIONAL LABS White Blood Cells 5.4 (02/16/25) 5.0 (01/19/25) 5.0 (12/13/24) Cholesterol 104 (12/13/24) 114 (09/15/24) 145 (06/23/24) HDL 44 (12/13/24) 43 (09/15/24) 48 (06/23/24) LDL-Calc 46 (12/13/24) 56 (09/15/24) 84 (06/23/24) Triglycerides 69 (12/13/24) 74 (09/15/24) 64 (06/23/24) Hep B Surface Antibody ?4 (06/23/24) ?4 (05/28/24) Uric Acid 6.5 (06/23/24) ADDITIONAL COMMENT COMMENTS: Note in dialysis clinical engineering manager Signed by: BIANCA REYES MD on 03/04/2025 at 12:24:01 PM Transcribed by: BIANCA REYES MD on 03/04/2025 at 12:24:01 PM documented in this encounter Plan of Treatment Upcoming Encounters Date Type Department Care Team (Late st Contact Info) Description 04/10/2025 11:00 AM EDT Procedure visit [facility] [address] [place] [address] [place] [address] documented as of this encounter Visit Diagnoses Diagnosis End stage renal disease Dependence on renal dialysis documented in this encounter Care Teams Occup Therapist Relationship Specialty Start Date End Date Steve Nguyen MD [address] [place], [place] PCP - General 04/19/19 documented as of this encounter
--- OUTSIDE RECORDS SUMMARY | 2025-03-10 12:13 | XMS_ITS | Encounter Summary ---
Author Organization [facility] Address [address] [place] [address] Phone Care Team Providers Care Assisted Living Care Manager Name Role Phone Steve Nguyen MD Primary Care Provider Encounter Details Date Type Department Care Team (Late st Contact Info) Description 07/31/2022 Documentation Only [facility] [address] [place] [address] Sahara Rousseau PA [address] [place] [address] Social History Tobacco Use Types [...] visit [facility] [place] [address] [place] [address] documented as of this encounter Visit Diagnoses Not on filedocumented in this encounter Care Teams Assisted Living Care Manager Relationship Specialty Start Date End Date Steve Nguyen MD [facility] [address] [place] PCP - General 04/19/19 documented as of this encounter
--- OUTSIDE RECORDS SUMMARY | 2025-03-10 12:13 | XMS_ITS | Clinical Summary ---
Author Organization [facility] Address [address] [place] [phone] Phone Care Team Providers Care Cable Television Installer Name Role Phone Steve Nguyen MD Primary Care Provider [phone] Allergies Active Allergy Reactions Criticality Noted Date Comments Ferumoxytol Other (see comments) High 04/02/2021 Chest pain, chills Other reaction(s): Other (see comments) Chest pain, chills Medications isosorbide mononitrate (IMDUR) 30 MG 24 hr tablet Take 30 mg by mouth 1 (one) time each day 2 Active Vitamin D, Ergocalciferol, 29853 units capsule Take 1 capsule by mouth [...] Encounters Date Type Department Care Team Description 03/04/2025 Treatment [facility] [address] [phone] Ezequiel Reyes MD End stage renal disease; Dependence on renal dialysis 02/25/2025 Treatment [facility] [address] [phone] Ezequiel Reyes MD End stage renal disease; Dependence on renal dialysis 02/16/2025 Treatment [facility] [address] [phone] Ezequiel Reyes MD End stage renal disease; Dependence on renal dialysis 02/11/2025 Treatment [facility] [address] [phone] Ezequiel Reyes MD End stage renal disease; Dependence on renal dialysis 02/07/2025 Treatment [facility] [address] [phone] Ezequiel Reyes MD End stage renal disease; Dependence on renal dialysis 02/02/2025 Treatment [facility] [address] [phone] Ezequiel Reyes MD End stage renal disease; Dependence on renal dialysis 01/17/2025 Treatment [facility] [address] [phone] Ezequiel Reyes MD End stage renal disease; Dependence on renal dialysis 01/10/2025 Treatment [facility] [address] [phone] Ezequiel Reyes MD End stage renal disease; Dependence on renal dialysis 01/07/2025 Treatment [facility] [address] [phone] Ezequiel Reyes MD End stage renal disease; Dependence on renal dialysis 12/21/2024 [place] [facility] Vascular Access Center [address] [place] [address] [place] [address] Genna Sauceda 12/20/2024 Treatment [facility] [address] [phone] Ezequiel Reyes MD End stage renal disease; Dependence on renal dialysis 12/20/2024 Telephone [facility] [address] [place] [address] [place] [address] Genna Sauceda 12/19/2024 11:00 AM EDT Procedure visit [facility] Access [address] [place] [address] Milton Stone MD End stage renal disease (HCC) (Primary Dx); 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, subsequent encounter 12/17/2024 Treatment [facility] [address] [phone] Ezequiel Reyes MD End stage renal disease; Dependence on renal dialysis 12/15/2024 Refill [facility] [address] [place] [address] Juan Buckner MD 12/15/2024 Telephone [facility] [address] [place] [address] Tisha Goff 12/08/2024 Treatment [facility] [address] [phone] Ezequiel Reyes MD End stage renal disease; [...] visit [facility] [place] [address] Health Maintenance Due Date Last Done [...] Priority Date/Time Associated Diagnosis Comments HEMOGLOBIN Routine 03/02/2025 3:00 AM EDT LIH () Routine 03/02/2025 3:00 AM EDT POTASSIUM Routine 03/02/2025 3:00 AM EDT LIH () Routine 02/23/2025 3:00 AM EDT POTASSIUM Routine 02/23/2025 3:00 AM EDT LIH (HC) Routine 02/21/2025 3:00 AM EDT KT/V NATURAL LOG, URR () Routine 02/21/2025 3:00 AM EDT HEPATITIS B SURFACE ANTIGEN W/REFL CONFIRM Routine 02/16/2025 3:00 AM EDT TRANSFERRIN SATURATION Routine 3:00 AM EDT PROTEIN, TOTAL, SERUM Routine 02/16/2025 3:00 AM EDT MAGNESIUM Routine 02/16/2025 3:00 AM EDT ELECTROLYTE PANEL Routine 02/16/2025 3:0 0 AM EDT LIH (HC) Routine 02/16/2025 3:00 AM EDT LACTATE DEHYDROGENASE Routine 02/16/2025 3:00 AM EDT GLUCOSE, RANDOM Routine 02/16/2025 3:00 AM EDT CREATININE, SERUM Routine 02/16/2025 3:0 0 AM EDT BUN/CREATININE RATIO Routine 02/16/2025 3:00 AM EDT BILIRUBIN, TOTAL Routine 02/16/2025 3:00 AM EDT AST Routine 02/16/2025 3:00 AM EDT ALT Routine 02/16/2025 3:00 AM EDT ALKALINE PHOSPHATASE Routine 02/16/2025 3:00 AM EDT CALCIUM PHOSPHORUS PRODUCT, ADJUSTED (HC) Routine 02/16/2025 3:00 AM EDT FERRITIN Routine 02/16/2025 3:00 AM EDT KT/V NATURAL LOG, URR (HC) Routine 02/16/2025 3:00 AM EDT CBC AND DIFFERENTIAL Routine 02/16/2025 3:00 AM EDT LIH (HC) Routine 02/09/2025 3:00 AM EDT POTASSIUM Routine 02/09/2025 3:00 AM EDT CLOTTED TUBE Routine 02/07/2025 3:00 AM EDT POTASSIUM Routine 02/02/2025 3:00 AM EDT LIH (HC) Routine 02/02/2025 3:00 AM EDT HEMOGLOBIN Routine 02/02/2025 3:00 AM EDT LIH (HC) Routine 01/26/2025 3:00 AM EDT POTASSIUM Routine 01/26/2025 3:00 AM EDT HEPATITIS B SURFACE ANTIGEN [...] EDT KT/V NATURAL LOG, URR (HC) Routine 12/22/2024 3:00 AM EDT LIH (HC) Routine 12/17/2024 3:00 AM EDT KT/V NATURAL LOG, URR (HC) Routine 12/17/2024 3:00 AM EDT HEPATITIS C [...] EDT POTASSIUM Routine 12/08/2024 3:00 AM EDT from Last 3 Months Results * (ABNORMAL) LIH (03/02/2025 3:00 AM EDT) Only the most recent of16 resultswithin the time period is included. Lipemia Normal Normal [facility] Icterus +(A) Normal [facility] Hemolysis Normal Normal [facility] 03/02/2025 3:00 AM EDT 03/03/2025 12:25 PM EDT us Ezequiel Reyes MD LAB HISTORICA [id number] RESULTS Final Result [facility]PS [facility] [address] [place] [address] * (ABNORMAL) Hemoglobin (03/02/2025 3:00 AM EDT) Only the most recent of3 resultswithin the time period is included. [facility] Hgb 11.0(L) 13.7 - 17.5 g/dL [facility] Hemoglobin x 3 33.0(L) 41.1 - 52.5 g/dL [facility] 03/02/2025 3:00 AM EDT 03/03/2025 12:44 PM EDT Ezequiel Reyes MD LAB BLOOD ORDERABLES Final Result Performing Organization Address City/[facility]/ZIP Co de Phone Number APS [facility] [address] [place] [address] * Potassium (03/02/2025 3:00 AM EDT) Only the most recent of9 resultswithin the time period is included. [facility] Potassium 3.6 3.4 - 5.0 mEq/L [facility] 03/02/2025 3:00 AM EDT 03/03/2025 12:25 PM EDT Ezequiel Reyes MD LAB BLOOD ORDERABLES Final Result Performing Organization Address City/[facility]/ZIP Co de Phone Number [facility]PS [facility] [address] [place] [address] * (ABNORMAL) Kt/V Natural Log, URR (02/21/2025 3:00 AM EDT) Only the most recent of6 resultswithin the time period is included. [facility] Treatment Time 239 min [facility] Pre-Weight, lb 105.3 kg [facility] Post-Weight, lb 101.2 kg [facility] Ultrafiltration Rate 10 <=13 mL/kg/hr [facility] Comment: Recommend achieving Ultrafiltration Rate (UFR) <=10 mL/kg/hr References: Mari aM TAFOYA et al. Kidney Int. 2010; 79(2):250-257 BUN Post Dialysis 11 7 - 25 mg/dL [facility] BUN 35(H) 7 - 25 mg/dL [facility] UREA REDUCTION RATIO (%) 69 >=65 % [facility] Kt/V Natural Log 1.38 >=1.2 [facility] 02/21/2025 3:00 AM EDT 02/22/2025 2:30 PM EDT us Ezequiel Reyes MD LAB HISTORICA [id number] RESULTS Final Result Performing Organization Address [facility] de Phone Number APS [facility] [address] [place] [address] * Calcium Phosphorus Product, Adjusted (02/16/2025 3:00 AM EDT) Only the most recent of3 resultswithin the time period is included. Albumin 3.9 3.6 - 5.4 g/dL [facility] Calcium 9.5 8.6 - 10.3 mg/dL [facility] Phosphorus, Serum 4.6 2.5 - 5.0 mg/dL [facility] Ca*PO4 43.7 <55.0 mg2/dL2 [facility] Calcium, Adjusted Total 9.6 8.6 - 10.3 mg/dL [facility] CA*PO4 CORRCTD 44.2 <55.0 mg2/dL2 [facility] 02/16/2025 3:00 AM EDT 02/17/2025 11:55 AM EDT us Ezequiel Reyes MD LAB HISTORICA [id number] RESULTS Final Result Performing Organization Address [facility] de Phone Number APS [facility] [address] [place] [address] * Hepatitis B Surface Ag w/Reflex Confirmation (02/16/2025 3:00 AM EDT) Only the most recent of3 resultswithin the time period is included. Hep B Surface Antigen Negative Negative [facility] 02/16/2025 3:00 AM EDT 02/17/2025 11:55 AM EDT us Ezequiel Reyes MD LAB BLOOD ORDERABLES Final Result Performing Organization Address [facility] de Phone Number [facility]PS [facility] [address] [place] [address] * BUN/CREATININE RATIO (02/16/2025 3:00 AM EDT) Only the most recent of3 resultswithin the time period is included. [facility] BUN/Creatinine Ratio 6.5 <=23.0 [facility] 02/16/2025 3:00 AM EDT 02/17/2025 11:55 AM EDT Ezequiel Reyes MD LAB HISTORICA [id number] RESULTS Final Result Performing Organization Address [facility] de Phone Number APS [facility] [address] [place] [address] * (ABNORMAL) TSAT (02/16/2025 3:00 AM EDT) Only the most recent of3 resultswithin the time period is included. [facility] Iron 83 65 - 175 ug/dL [facility] Transferrin 158(L) 215 - 365 mg/dL [facility] TIBC 221 211 - 406 ug/dL [facility] Iron Saturation (TSat) 38 22 - 52 % [facility] 02/16/2025 3:00 AM EDT 02/17/2025 11:55 AM EDT us Ezequiel Reyes MD LAB BLOOD ORDERABLES Final Result Performing Organization Address [facility] de Phone Number [facility] [address] [place] [address] * (ABNORMAL) CBC and Differential (02/16/2025 3:00 AM EDT) Only the most recent of3 resultswithin the time period is included. [facility] DIFFERENTIAL MANUAL, 2 Not Indicated [facility] White Blood Cells 5.4 4.2 - 9.1 K/uL [facility] RBC 3.30(L) 4.63 - 6.08 M/uL [facility] Hgb 11.5(L) 13.7 - 17.5 g/dL [facility] Hemoglobin x 3 34.5(L) 41.1 - 52.5 g/dL [facility] Hematocrit 34.2(L) 40.1 - 51.0 % [facility] MCV 103.6(H) 79.0 - 92.2 fL [facility] MCH 34.8(H) 25.7 - 32.2 pg [facility] MCHC 33.6 32.3 - 36.5 g/dL [facility] RDW 15.5(H) 11.6 - 14.4 % [facility] Platelets 98(L) 163 - 337 K/uL [facility] MPV 10.8 9.1 - 13.0 fL [facility] Neutrophils Relative 77.6(H) 34.0 - 67.9 % [facility] Lymphocytes Relative 9.7(L) 21.8 - 53.1 % [facility] Monocytes 11.6 5.3 - 12.2 % [facility] Eosinophils Relative 0.0(L) 0.8 - 7.0 % [facility] Basophils Relative 0.7 0.2 - 1.2 % [facility] Immature Granulocytes 0.4 0.0 - 1.0 % [facility] 02/16/2025 3:00 AM EDT 02/17/2025 11:53 AM EDT us Ezequiel Reyes MD LAB BLOOD ORDERABLES Final Result Performing Organization Address [facility] de Phone Number APS [facility] [address] [place] [address] * ALT (02/16/2025 3:00 AM EDT) Only the most recent of3 resultswithin the time period is included. ALT (SGPT) 12 10 - 49 U/L [facility] 02/16/2025 3:00 AM EDT 02/17/2025 11:55 AM EDT Ezequiel Reyes MD LAB BLOOD ORDERABLES Final Result Performing Organization Address City/[facility] de Phone Number [facility] [address] [place] [address] * AST (02/16/2025 3:00 AM EDT) Only the most recent of3 resultswithin the time period is included. AST (SGOT) 22 <34 U/L [facility] 02/16/2025 3:00 AM EDT 02/17/2025 11:55 AM EDT Ezequiel Reyes MD LAB BLOOD ORDERABLES Final Result Performing Organization Address [facility] Co de Phone Number [facility] [address] [place] [address] * Protein, total (02/16/2025 3:00 AM EDT) Only the most recent of3 resultswithin the time period is included. Total Protein 6.6 6.4 - 8.9 g/dL [facility] 02/16/2025 3:00 AM EDT 02/17/2025 11:55 AM EDT Ezequiel Reyes MD LAB BLOOD ORDERABLES Final Result Performing Organization Address [facility] de Phone Number [facility] [address] [place] [address] * (ABNORMAL) Alkaline phosphatase (02/16/2025 3:00 AM EDT) Only the most recent of3 resultswithin the time period is included. Alkaline Phosphatase 142(H) 46 - 116 U/L [facility] 02/16/2025 3:00 AM EDT 02/17/2025 11:55 AM EDT Ezequiel Reyes MD LAB BLOOD ORDERABLES Final Result Performing Organization Address [facility] de Phone Number [facility] [address] [place] [address] * Magnesium (02/16/2025 3:00 AM EDT) Only the most recent of3 resultswithin the time period is included. Magnesium 2.1 1.9 - 2.7 mg/dL [facility] 02/16/2025 3:00 AM EDT 02/17/2025 11:55 AM EDT us Ezequiel Reyes MD LAB BLOOD ORDERABLES Final Result Performing Organization Address [facility] Co de Phone Number [facility] [address] [place] [address] * (ABNORMAL) Lactate dehydrogenase (02/16/2025 3:00 AM EDT) Only the most recent of3 resultswithin the time period is included. LDH 282(H) 120 - 246 U/L [facility] 02/16/2025 3:00 AM EDT 02/17/2025 11:55 AM EDT us Ezequiel Reyes MD LAB BLOOD ORDERABLES Final Result Performing Organization Address [facility] de Phone Number [facility]PS [facility] [address] [place] [address] * Glucose, random (02/16/2025 3:00 AM EDT) Only the most recent of3 resultswithin the time period is included. Glucose 82 70 - 99 mg/dL [facility] Comment: ADA guidelines outline the following fasting glucose ranges: Normal: <100 Prediabetes: 100-125 Diabetes: >125 02/16/2025 3:00 AM EDT 02/17/2025 11:55 AM EDT Ezequiel Reyes MD LAB BLOOD ORDERABLES Final Result Performing Organization Address [facility] de Phone Number [facility]PS [facility] [address] [place] [address] * (ABNORMAL) Ferritin (02/16/2025 3:00 AM EDT) Only the most recent of3 resultswithin the time period is included. Ferritin 1,418(H) 22 - 322 ng/mL [facility] 02/16/2025 3:00 AM EDT 02/17/2025 11:55 AM EDT us Ezequiel Reyes MD LAB BLOOD ORDERABLES Final Result Performing Organization Address [facility] de Phone Number [facility] [address] [place] [address] * (ABNORMAL) Creatinine, serum (02/16/2025 3:00 AM EDT) Only the most recent of3 resultswithin the time period is included. Creatinine 5.52(H) 0.70 - 1.30 mg/dL [facility] 02/16/2025 3:00 AM EDT 02/17/2025 11:55 AM EDT us Ezequiel Reyes MD LAB BLOOD ORDERABLES Final Result Performing Organization Address [facility] Phone Number [facility]PS [facility] [address] [place] [address] * (ABNORMAL) Bilirubin, total (02/16/2025 3:00 AM EDT) Only the most recent of3 resultswithin the time period is included. Total Bilirubin 1.4(H) 0.3 - 1.2 mg/dL [facility] 02/16/2025 3:00 AM EDT 02/17/2025 11:55 AM EDT us Ezequiel Reyes MD LAB BLOOD ORDERABLES Final Result Performing Organization Address [facility] de Phone Number [facility] [address] [place] [address] * (ABNORMAL) Electrolyte panel (02/16/2025 3:00 AM EDT) Only the most recent of3 resultswithin the time period is included. Sodium 135(L) 136 - 145 mEq/L [facility] Potassium 3.4 3.4 - 5.0 mEq/L [facility] Chloride 93(L) 98 - 107 mEq/L [facility] Bicarbonate (CO2) 27 21 - 31 mEq/L [facility] Anion Gap 15(H) 3 - 14 mEq/L [facility] 02/16/2025 3:00 AM EDT 02/17/2025 11:55 AM EDT us Ezequiel Reyes MD LAB BLOOD ORDERABLES Final Result Performing Organization Address [facility] de Phone Number [facility] [address] [place] [address] * Clotted Tube (02/07/2025 3:00 AM EDT) Clotted Tube Lavender [facility] Comment:Received clotted lav john tube; unable to perform hematology tests. 02/07/2025 3:00 AM EDT us Ezequiel Reyes MD LAB BLOOD ORDERABLES Final Result Performing Organization Address [facility] de Phone Number [facility] [address] [place] [address] * (ABNORMAL) Phosphorus (01/03/2025 3:00 AM EDT) Phosphorus, Serum 5.6(H) 2.5 - 5.0 mg/dL [facility] 01/03/2025 3:00 AM EDT 01/04/2025 2:04 PM EDT us Ezequiel Reyes MD LAB BLOOD ORDERABLES Final Result Performing Organization Address [facility] de Phone Number [facility]PS [facility] [address] [place] [address] * (ABNORMAL) POTASSIUM - POST (12/22/2024 3:00 AM EDT) Potassium, Post 3.1(L) 3.4 - 5.0 mEq/L [facility] 12/22/2024 3:00 AM EDT 12/23/2024 3:41 PM EDT us Ezequiel Reyes MD LAB HISTORICA [id number] RESULTS Final Result Performing Organization Address [facility] Co de Phone Number [facility]PS [facility] [address] [place] [address] * Confirmation Test HCV (12/13/2024 3:00 AM EDT) Pathologist [facility] Hep C Ab Confirmation Not needed [facility] 12/13/2024 3:00 AM EDT 12/14/2024 1:27 PM EDT Ezequiel Reyes MD LAB BLOOD ORDERABLES Final Result Performing Organization Address [facility] Co de Phone Number [facility] [address] [place] [address] * HEPATITIS C ABS W/REFLEX RNA DETECTR (12/13/2024 3:00 AM EDT) Pathologist [facility] Hep C Virus Ab Non-Reacti ve Non-Reacti ve [facility] 12/13/2024 3:00 AM EDT 12/14/2024 1:19 PM EDT Ezequiel Reyes MD LAB HISTORICA [id number] RESULTS Final Result Performing Organization Address [facility] de Phone Number [facility] [address] [place] [address] * PTH, Intact (12/13/2024 3:00 AM EDT) Pathologist [facility] PTH, Intact 334 160 - 721 pg/mL [facility] Comment: Suggested (KDIGO) ESRD maintenance range is two to nine times the upper normal limit (80.1 pg/mL) for the laboratory. 12/13/2024 3:00 AM EDT 12/14/2024 1:19 PM EDT us Ezequiel Reyes MD LAB BLOOD ORDERABLES Final Result Performing Organization Address [facility] Co de Phone Number [facility] [address] [place] [address] * Hemoglobin A1c (12/13/2024 3:00 AM EDT) Hemoglobin A1C 4.8 <5.7 % [facility] Comment: Methodology: Enzymatic Normal: <5.7% Prediabetes: 5.7-6.4% Diabetes: >6.4% Diabetic Glucose Control Evaluation: Therapeutic action suggested at >8.0% ADA recommends a glycemic goal of <7.0% 12/13/2024 3:00 AM EDT 12/14/2024 1:27 PM EDT Ezequiel Reyes MD LAB BLOOD ORDERABLES Final Result Performing Organization Address [facility] Co de Phone Number [facility] [address] [place] [address] * (ABNORMAL) Lipid panel (12/13/2024 3:00 AM [...] 1:19 PM EDT Ezequiel Reyes MD LAB BLOOD ORDERABLES Final Result Performing Organization Address [facility] Co de Phone Number [facility] [address] [place] [address] from Last 3 Months Insurance Medicare Medicare Care Teams Cable Television Installer Relationship Specialty Start Date End Date Steve Nguyen MD [address] [place], [place] PCP - General 04/19/19
--- OUTSIDE RECORDS SUMMARY | 2025-03-10 12:13 | XMS_ITS | Encounter Summary ---
Author Organization [facility] Address [address] [place] [address] Phone Care Team Providers Care Nursing Informatics Clinical Analyst Name Role Phone Steve Nguyen MD Primary Care Provider [phone] Encounter Details Date Type Department Care Team (Late st Contact Info) Description 09/22/2022 Documentation Only [facility] [address] [place] [address] Sahara Rousseau PA [address] [place] [address] Social History Tobacco Use Types [...] visit [facility] - Vascular Access Center [address] [place] [address] documented as of this encounter Visit Diagnoses Not on filedocumented in this encounter Care Teams Nursing Informatics Clinical Analyst Relationship Specialty Start Date End Date Steve Nguyen MD [facility] [address] [place], [place] PCP - General 04/19/19 documented as of this encounter
--- OUTSIDE RECORDS SUMMARY | 2025-03-10 12:14 | XMS_ITS | Encounter Summary ---
Author Organization [facility] Address [address] [place] [address] Phone Care Team Providers Care Communications Senior Associate Name Role Phone Steve Nguyen MD Primary Care Provider [phone] Encounter Details Date Type Department Care Team (Latest Contact Info) Description 08/14/2017 Transcribe Orders [facility] Laboratory [address] [place] [address] Loki Cuevas MD [address] [place] [address] [email or web address] Hyperlipidemia, unspecified hyperlipidemia type (Primary Dx) Social History Tobacco Use Types Packs/Day Years [...] on file documented as of this encounter Results * (ABNORMAL) LFTs (hepatic panel) (08/14/2017 3:30 PM EST) ALKALINE PHOSPHATASE 119(H) 39 - 117 U/L [facility] TOTAL BILIRUBIN 0.5 0.0 - 1.2 mg/dL [facility] DIRECT BILIRUBIN <0.2 0 - 0.3 mg/dL [facility] Bilirubin (Indirect) NOT CALCULATED 0 - 1.5 mg/dL [facility] AST 24 0 - 37 U/L [facility] ALT 18 0 - 40 U/L [facility] TOTAL PROTEIN 7.0 6.5 - 8.0 g/dL [facility] ALBUMIN 3.8(L) 3.9 - 4.8 g/dL [facility] GLOBULIN 3.2 1 - 4.8 g/dL [facility] A/G Ratio 1.19 1.00 - 4.80 RATIO [facility] Blood 08/14/2017 3:30 PM EST 08/14/2017 3:32 PM EST us Loki Cuevas MD LAB BLOOD ORDERABLES Final Resu lt [address] [address] * (ABNORMAL) Lipid panel (08/14/2017 3:30 PM EST) HDL 43 mg/dL [facility] Comment: Interpretation: Risk Level Males Decreased >45 mg/dL Average 40-45 mg/dL Increased <40 mg/dL CHOLESTEROL 122 0 - 240 mg/dL [facility] TRIGLYCERIDES 97 30 - 160 mg/dL [facility] LDL 60 50 - 129 mg/dL [facility] Comment: LDL levels in terms of risk for coronary heart disease: <100 mg/dL: Optimal 100-129 mg/dL: Near or above optimal 130-159 mg/dL: Borderline high 160-189 mg/dL: High >190 mg/dL: Very High CARDIAC RISK RATIO 2.8(L) 3.4 - 5.0 C [facility] Blood 08/14/2017 3:30 PM EST 08/14/2017 3:32 PM EST us Loki Cuevas MD LAB BLOOD ORDERABLES Final Resu lt Performing Organization Address City/[facility]/ZIP Co de Phone Number [address] [address] * (ABNORMAL) Basic metabolic panel (08/14/2017 3:30 PM EST) SODIUM 137 133 - 146 mmol/L [facility] CHLORIDE 97 96 - 108 mmol/L [facility] POTASSIUM 3.7 3.3 - 5.1 mmol/L [facility] CO2 29 21 - 35 mmol/L [facility] BUN 30(H) 6 - 19 mg/dL [facility] CREATININE 1.50 0.5 - 1.5 mg/dL [facility] GLUCOSE 87 70 - 99 mg/dL [facility] CALCIUM 9.2 8.4 - 10.3 mg/dL [facility] EGFR 47(L) 60 - 1,000 mL/min/1.7 3m2 [facility] Comment:Abnormal if <60. If patient is -Polish, multiply the result by 1.21. ANION GAP 15 10 - 20 mmol/L [facility] Blood 08/14/2017 3:30 PM EST 08/14/2017 3:32 PM EST us Loki Cuevas MD LAB BLOOD ORDERABLES Final Resu lt Performing Organization Address City/State/[facility] Co de Phone Number [address] [address] documented in this encounter Visit Diagnoses Diagnosis Hyperlipidemia, unspecified hyperlipidemia type- Primary documented in this encounter Additional Health Concerns Infection Onset Date Last Indicated Resolved Time CoV-Risk 04/02/2021 04/02/2021 04/12/2021 1:25 AM EDT MRSA 06/09/2023 06/09/2023 documented as of this encounter Care Teams Communications Senior Associate Relationship Specialty Start Date End Date Steve Nguyen MD [address] [place] [phone] PCP - General 04/02/17 documented as of this encounter Additional Source Comments The information contained in this document represents components of the legal health record. It is not the complete legal health record.[facility]
--- OUTSIDE RECORDS SUMMARY | 2025-03-10 12:14 | XMS_ITS | Encounter Summary ---
Author Organization [facility] Address [address] [place] [address] Phone Care Team Providers Care Airplane Dispatch Clerk Name Role Phone Steve Nguyen MD Primary Care Provider [phone] Encounter Details Date Type Department Care Team (Latest Contact Info) Description 04/04/2017 Ancillary Orders [facility] [address] [facility] 3rd Floor, [address] [place] [address] Loki Cuevas MD [address] [place] [address] [email or web address] Diagnosis unknown Social History Tobacco Use Types Packs/Day Years [...] as of this encounter Visit Diagnoses Diagnosis Diagnosis unknown documented in this encounter Additional Health Concerns Infection Onset Date Last Indicated Resolved Time CoV-Risk 04/02/2021 04/02/2021 04/12/2021 1:25 AM EDT MRSA 06/09/2023 06/09/2023 documented as of this encounter Care Teams Airplane Dispatch Clerk Relationship Specialty Start Date End Date Steve Nguyen MD [address] [place] [address] PCP - General 04/02/17 documented as of this encounter Additional Source Comments The information contained in this document represents components of the legal health record. It is not the complete legal health record.[facility]
--- OUTSIDE RECORDS SUMMARY | 2025-03-10 12:14 | XMS_ITS | Encounter Summary ---
Author Organization [facility] Address [address] [address] Phone Care Team Providers Care Laboratory Chief Name Role Phone Steve Nguyen MD Primary Care Provider [phone] Encounter Details Date Type Department Care Team (Late st Contact Info) Description 12/01/2024 TCM in Dialysis Clinic [facility] [address] [address] Bianca Reyes MD [address] [address] Social History Tobacco Use Types [...] on file documented as of this encounter Progress Notes * Bianca Reyes MD - 12/01/2024 12:00 AM EDT Patient: Dimitrios Meyer : 1955 Note Type: Dialysis TCM Service Date: 12/01/2024 The patient was seen for a ineo-nj-wycw visit as part of Transitional Care Management services. Attending Director Of Manufacturing Operations: BIANCA REYES MD Dialysis Location: [facility] Schedule: Shift: 1 INTERACTIVE CONTACT Contact with the patient or caregiver was made or attempted within 2 business days of discharge - details in the medical record. HOSPITALIZATION SUMMARY Patient transitioned from: Hospital Patient transitioned to: Home Admit Date: 11/24/2024 Discharge Date: 11/28/2024 Discharged info reviewed: No outstanding diagnostic tests and treatments HOME MEDICATIONS Discharge med list reviewed and reconciled - no changes. PHYSICAL EXAM Exam performed. Vital Signs Reviewed. CV - Blood pressure noted. No edema. EXT - No ulcers. CARE COORDINATION Post-discharge follow-up appointments reviewed with the patient. VISIT DIAGNOSES CPT Code 52109 - High complexity, seen within 7 days of discharge. N18.6 End stage renal disease Signed by: BIANCA REYES MD on 12/01/2024 at 08:48:25 AM Transcribed by: BIANCA REYES MD on 12/01/2024 at 08:48:25 AM documented in this encounter Plan of Treatment Upcoming Encounters Date Type Department Care Team (Late st Contact Info) Description 04/10/2025 11:00 AM EDT Procedure visit [facility] - [facility] [address] [place] [address] documented as of this encounter Visit Diagnoses Not on filedocumented in this encounter Care Teams Laboratory Chief Relationship Specialty Start Date End Date Steve Nguyen MD [facility] [address] [place], [place] PCP - General 04/19/19 documented as of this encounter
--- OUTSIDE RECORDS SUMMARY | 2025-03-10 12:14 | XMS_ITS | Encounter Summary ---
Author Organization [facility] Address [address] [place] [address] Phone Care Team Providers Care Keyseater Operator Name Role Phone Steve Nguyen MD Primary Care Provider Encounter Details Date Type Department Care Team (Late st Contact Info) Description 09/01/2022 Documentation Only [facility] [address] [place] [phone] Sahara Rousseau PA [address] [place] [phone] Social History Tobacco Use Types Packs/Day Years [...] [facility] [address] [place] [phone] documented as of this encounter Visit Diagnoses Not on filedocumented in this encounter Care Teams Keyseater Operator Relationship Specialty Start Date End Date Steve Nguyen MD [facility] ME [address] [place] PCP - General 04/19/19 documented as of this encounter
--- OUTSIDE RECORDS SUMMARY | 2025-03-10 12:14 | XMS_ITS | Encounter Summary ---
Author Organization [facility] Address [address] [facility] [address] [place] [address] Phone Care Team Providers Care Construction Framer Name Role Phone Steve Nguyen MD Primary Care Provider [phone] Reason for Referral * Physical Therapy (Routine) - Closed Specialty Diagnoses / Procedures Referred By Patrick mak Referred To Contact Physical Therapy Diagnoses Encounter for rehabilitation System, Provider Not In, [facility] [id number] [place] [address] Phone: tel: Referral ID Status Reason Start Date Expiration Date Visits Re quested Visits Authorized [id number] Closed 04/29/2018 06/14/2019 99 99 Encounter Details Date Type Department Care Team (Latest Contact Info) Description 04/26/2018 Transcribe Orders [facility] [address] [place] [address] Steve Nguyen MD [address] [place] [address] [address] [place] [phone] Encounter for rehabilitation (Primary Dx) Social History Tobacco Use Types Packs/Day Years Used Date Smoking Tobacco: Never Smokeless Tobacco: Never Sex and Gender Information Value Date Recorded Sex Assigned at Male 08/27/2021 8:48 PM EDT Legal Sex Male 9:58 PM EDT Gender Identity Male 08/27/2021 8:48 PM EDT Sexual Orientation Straight 08/27/2021 8: 48 PM EDT documented as of this encounter Plan of Treatment Scheduled Referrals Name Type Priority Associated Diagnoses Orde r Schedule Ambulatory referral to [facility] Physical Therapy Outpatient Referral Routine Encounter for rehabilitation Ordered: 04/26/2018 documented as of this encounter Visit Diagnoses Diagnosis Encounter for rehabilitation- Primary documented in this encounter Additional Health Concerns Infection Onset Date Last Indicated Resolved Time CoV-Risk 04/02/2021 04/02/2021 04/12/2021 1:25 AM EDT MRSA 06/09/2023 06/09/2023 documented as of this encounter Care Teams Construction Framer Relationship Specialty Start Date End Date Steve Nguyen MD [address] [facility] [address] [place] [phone] PCP - General 04/02/17 documented as of this encounter Additional Source Comments The information contained in this document represents components of the legal health record. It is not the complete legal health record.[facility]
--- OUTSIDE RECORDS SUMMARY | 2025-03-10 12:14 | XMS_ITS | Encounter Summary ---
Author Organization [facility] Address [address] [place] [address] Phone Care Team Providers Care Assembly Line Supervisor Name Role Phone Steve Nguyen MD Primary Care Provider [phone] Encounter Details Date Type Department Care Team (Late st Contact Info) Description 04/22/2022 Documentation Only [facility] [address] [place] [address] Sahara Rousseau PA [address] [place] [address] Social History Tobacco Use Types [...] visit [facility] [place] - [facility] [address] [place] [address] documented as of this encounter Visit Diagnoses Not on filedocumented in this encounter Care Teams Assembly Line Supervisor Relationship Specialty Start Date End Date Steve Nguyen MD [facility] [address] [place], [place] PCP - General 04/19/19 documented as of this encounter
--- OUTSIDE RECORDS SUMMARY | 2025-03-10 12:14 | XMS_ITS | Encounter Summary ---
Author Organization [facility] Address [address] [facility] [address] [place] [address] Phone Care Team Providers Care Pastry Cook Helper Name Role Phone Steve Nguyen MD Primary Care Provider [phone] Encounter Details Date Type Department Care Team (Latest Contact Info) Description 08/19/2017 Ancillary Orders [facility] [address] [facility] 3rd Floor, [address] [place] [address] Loki Cuevas MD [address] [place] [address] [email or web address] Bilateral carotid artery stenosis; Bruit of left carotid artery Social History Tobacco Use Types Packs/Day Years [...] documented as of this encounter Results * US Carotid Duplex (Bilateral) (08/19/2017 1:41 PM EST) Anatomical Region Laterality Modality Heart, Thoracic Vasculature, Neck Ultrasound Narrative 08/24/2017 12:54 PM EDT See scanned document us Loki Cuevas MD US NEUROVASCULAR Final Resul t documented in this encounter Visit Diagnoses Diagnosis Diagnosis unknown Bilateral carotid artery stenosis Occlusion and stenosis of carotid artery without mention of cerebral infarction Bruit of left carotid artery Bilateral carotid artery stenosis Occlusion and stenosis of carotid artery without mention of cerebral infarction Bruit of left carotid artery documented in this encounter Additional Health Concerns Infection Onset Date Last Indicated Resolved Time CoV-Risk 04/02/2021 04/02/2021 04/12/2021 1:25 AM EDT MRSA 06/09/2023 06/09/2023 documented as of this encounter Care Teams Pastry Cook Helper Relationship Specialty Start Date End Date Po, Steve Hernandez MD [address] [place] [phone] PCP - General 04/02/17 documented as of this encounter Additional Source Comments The information contained in this document represents components of the legal health record. It is not the complete legal health record.[facility]
--- OUTSIDE RECORDS SUMMARY | 2025-03-10 12:14 | XMS_ITS | Encounter Summary ---
Author Organization [facility] Address [address] [place] [address] Phone Care Team Providers Care Senior Financial Consultant Name Role Phone Steve Nguyen MD Primary Care Provider [phone] Reason for Visit * Reason Comments Med Refill Encounter Details Date Type Department Care Team (Late st Contact Info) Description 05/10/2022 Refill [facility] [address] [place] [phone] Bakari Wlels MD [address] [place] [address] Social History Tobacco Use Types [...] Procedure visit [facility] [address] [address] documented as of this encounter Visit Diagnoses Not on filedocumented in this encounter Care Teams Senior Financial Consultant Relationship Specialty Start Date End Date Steve Nguyen MD [facility] [address] [place], [place] PCP - General 04/19/19 documented as of this encounter
--- OUTSIDE RECORDS SUMMARY | 2025-03-10 12:14 | XMS_ITS | Encounter Summary ---
Author Organization [facility] Address [address] [place] [address] Phone Care Team Providers Care Paint Stripper Name Role Phone Steve Nguyen MD Primary Care Provider [phone] Encounter Details Date Type Department Care Team (Late st Contact Info) Description 05/22/2022 Documentation Only [facility] [address] [place] [address] Hermelinda Colunga [address] [place] [phone] Social History Tobacco Use Types Packs/Day [...] visit [facility] - [facility] Center [address] [place] [phone] documented as of this encounter Visit Diagnoses Not on filedocumented in this encounter Care Teams Paint Stripper Relationship Specialty Start Date End Date Steve Nguyne MD [address] [place] PCP - General 04/19/19 documented as of this encounter
--- OUTSIDE RECORDS SUMMARY | 2025-03-10 12:14 | XMS_ITS | Patient Health Record ---
Author [facility] Address [address] [place] [address] Care Team Providers Care End User Consultant Name Role Phone Steve Nguyen Primary Care Provider Dhara Marcelo Unavailable [phone] Allergies No Known Allergies Reason For Referral [...] atherosclerosis of arteries of lower limbs (disorder) ([id number] ) Atherosclerosis of [place] artery of both lower extremities, with unspecified presence of clinical manifestation (I70.203) Active confirmed Q7(A), Q8(2B), Q9(1B,2 C) Vital Signs Blood pressure diastolic 70 mm Hg 12/07/2024 Height 9bz94ck in 12/07/2024 Blood pressure systolic 145 mm Hg 12/07/2024 Weight 230 lbs 12/07/2024 BMI 33 kg/m2 12/07/2024 Encounters Encounter Location Date Provider Diagnosis [facility] [place] [address] [place] [address] 12/07/2024 Dhara Mills Atherosclerosis of [place] artery of both lower extremities, with unspecified presence of clinical manifestation I70.203 ; Xerosis of skin L85.3 ; Tinea unguium B35.1 ; Pain in right toe(s) M79.674 and Pain in left toe(s) M79.675 Assessments Encounter Date Diagnosis (ICD Code) Assessment Notes Treatment Notes Treatment Clinical Notes Section Notes 12/07/2024 Xerosis of skin (ICD-10 - L85.3) 12/07/2024 Atherosclerosis of [place] artery of both lower extremities, with unspecified presence of clinical manifestation (ICD-10 - I70.203) Q7(A), Q8(2B), Q9(1B,2C) 12/07/2024 Tinea unguium (ICD-10 - B35.1) 12/07/2024 Pain in right toe(s) (ICD-10 - M79.674) 12/07/2024 Pain in left toe(s) (ICD-10 - M79.675) Plan Of Treatment Next Appt Details Provider Name:Dhara aguilar, 03/15/2025 10:00:00 AM, [address] [place], [address], Insurance Providers Payer Name Payer Address Payer Phone Subscriber Number Group Number Insured Name Patient Relationship to Insured Coverage Start Date Coverage End Date [employer] Medicare [id number] [address] [address] [place] [address] [id number] Kael Meyer Self - patient is the insured Medical (General) History Medical History History ICD Code Anemia Arthritis Back,Hip,and Knee pain Broken bones Cataracts Depression Gout High Blood Pressure Kidney disease Lupus Numbness Poor circulation Reflux ( GERD) Measles Mumps Chicken pox Vascular grafts Transfusions Venous stasis dermatitis Surgical History Surgery Date(Month/Year) fistula repair
--- OUTSIDE RECORDS SUMMARY | 2025-03-10 12:14 | XMS_ITS | Encounter Summary ---
Author Organization [facility] Address [address] [place] [address] [place] [address] Phone Care Team Providers Care House Fellow Name Role Phone Steve Nguyen MD Primary Care Provider [phone] Reason for Referral * Outpatient Procedure (Routine) - Closed Specialty Diagnoses / Procedures Referred By Patrick mak Referred To Contact Diagnoses Shortness of breath Procedures Adult Echo TTE Loki Cuevas MD Phone: tel: fax: mailto:[email or web address] Referral ID Status Reason Start Date Expiration Date Visits Re quested Visits Authorized [id number] Closed 11/04/2017 11/04/2018 1 1 Encounter Details Date Type Department Care Team (Latest Contact Info) Description 11/04/2017 Transcribe [facility] [address] [facility] [address], [address] [place] [address] Loki Cuevas MD [address] [address] [email or web address] Shortness of breath (Primary Dx) Social History Tobacco Use Types [...] documented as of this encounter Results * TTE COMPREHENSIVE (11/26/2017 1:28 PM EDT) Anatomical Region Laterality Modality Heart Ultrasound us Loki Cuevas MD CV ECHO ORDERABLES Final Result documented in this encounter Visit Diagnoses Diagnosis Shortness of breath- Primary documented in this encounter Additional Health Concerns Infection Onset Date Last Indicated Resolved Time CoV-Risk 04/02/2021 04/02/2021 04/12/2021 1:25 AM EDT MRSA 06/09/2023 06/09/2023 documented as of this encounter Care Teams House Fellow Relationship Specialty Start Date End Date Steve Nguyen MD [address] [place] [address] PCP - General 04/02/17 documented as of this encounter Additional Source Comments The information contained in this document represents components of the legal health record. It is not the complete legal health record.[facility]
--- OUTSIDE RECORDS SUMMARY | 2025-03-10 12:14 | XMS_ITS | Encounter Summary ---
Author Organization [facility] Address [address] [place] [address] Phone Care Team Providers Care Food Preparation Kitchen Aide Name Role Phone Steve Nguyen MD Primary Care Provider [phone] Encounter Details Date Type Department Care Team (Late st Contact Info) Description 05/21/2022 Documentation Only [facility] [address] [place] [address] Hermelinda Colunga [address] [place] [phone] Social History Tobacco Use Types Packs/Day [...] visit [facility] - [facility] Center [address] [place] [phone] documented as of this encounter Visit Diagnoses Not on filedocumented in this encounter Care Teams Food Preparation Kitchen Aide Relationship Specialty Start Date End Date Steve Nguyen MD [address] [place] PCP - General 04/19/19 documented as of this encounter
--- OUTSIDE RECORDS SUMMARY | 2025-03-10 12:14 | XMS_ITS | Encounter Summary ---
Author Organization [facility] Address [address] [place] [address] Phone Care Team Providers Care Appeals Specialist Name Role Phone Steve Nguyen MD Primary Care Provider [phone] Encounter Details Date Type Department Care Team (Late st Contact Info) Description 09/02/2021 Documentation Only [facility] [address] [place] [phone] Bakari Wells MD [address] [place] [address] [place] [phone] Social History Tobacco Use Types Packs/Day Years [...] [facility] [place] [facility] [address] [place] [phone] documented as of this encounter Visit Diagnoses Not on filedocumented in this encounter Care Teams Appeals Specialist Relationship Specialty Start Date End Date Steve Nguyen MD [address] [place] PCP - General 04/19/19 documented as of this encounter
--- OUTSIDE RECORDS SUMMARY | 2025-03-10 12:14 | XMS_ITS | Encounter Summary ---
Author Organization Located Within [facility] Address [address] [place] [address] Phone Care Team Providers Care Computer Science Professor Name Role Phone Steve Nguyen MD Primary Care Provider [phone] Encounter Details Date Type Department Care Team (Late st Contact Info) Description 07/09/2020 Procedure Pass [facility] [address] Floor [place], [place] [id number] Social History Tobacco Use Types Packs/Day Years [...] documented as of this encounter Care Teams Computer Science Professor Relationship Specialty Start Date End Date Steve Nguyen MD [address] [place] [phone] PCP - General 04/02/17 documented as of this encounter Additional Source Comments The information contained in this document represents components of the legal health record. It is not the complete legal health record.[facility]
--- OUTSIDE RECORDS SUMMARY | 2025-03-10 12:14 | XMS_ITS | Encounter Summary ---
Author Organization [facility] Address [address] [place] [address] Phone Care Team Providers Care Academic Tutor Name Role Phone Steve Nguyen MD Primary Care Provider [phone] Encounter Details Date Type Department Care Team ([facility] st Contact Info) Description 04/04/2017 Ancillary Orders [facility] [address] [place] [address] Loki Cuevas MD [address] [place] [address] [email or web address] Social History Tobacco Use Types Packs/Day Years [...] documented as of this encounter Care Teams Academic Tutor Relationship Specialty Start Date End Date Steve Nguyen MD [address] [place] [address] PCP - General 04/02/17 documented as of this encounter Additional Source Comments The information contained in this document represents components of the legal health record. It is not the complete legal health record.[facility]
--- OUTSIDE RECORDS SUMMARY | 2025-03-10 12:14 | XMS_ITS | Encounter Summary ---
Author Organization [facility] Address [address] [place] [address] Phone Care Team Providers Care Turning Sander Tender Name Role Phone Steve Nguyen MD Primary Care Provider [phone] Reason for Visit * Reason Comments Med Refill Encounter Details Date Type Department Care Team (Late Contact Info) Description 04/05/2023 Refill [facility] [address] [place] [address] Bakari Wells MD [address] [place] [address] [place] [phone] Social History Tobacco Use Types Packs/Day Years [...] Department Care Team (Late Contact Info) Description 04/10/2025 11:00 AM EDT Procedure visit [facility] [place] [address] [place] [address] [place] [phone] documented as of this encounter Visit Diagnoses Not on filedocumented in this encounter Care Teams Turning Sander Tender Relationship Specialty Start Date End Date Steve Nguyen MD [facility] [address] [place] PCP - General 04/19/19 documented as of this encounter
--- OUTSIDE RECORDS SUMMARY | 2025-03-10 12:14 | XMS_ITS | Encounter Summary ---
Author Organization [facility] Address [address] [place] [address] Phone Care Team Providers Care Circular Clerk Name Role Phone Steve Nguyen MD Primary Care Provider [phone] Encounter Details Date Type Department Care Team (Late st Contact Info) Description 05/21/2022 Documentation Only [facility] [address] [place] [place] [address] Rory Leahy MD [address] [place] [address] Social History Tobacco Use Types [...] visit [facility] [place] [address] [place] [address] documented as of this encounter Visit Diagnoses Not on filedocumented in this encounter Care Teams Circular Clerk Relationship Specialty Start Date End Date Steve Nguyen MD [facility] [address] [place] PCP - General 04/19/19 documented as of this encounter
--- OUTSIDE RECORDS SUMMARY | 2025-03-10 12:14 | XMS_ITS | Encounter Summary ---
Author Organization [facility] Address [address] [place] [address] Phone Care Team Providers Care Pipe Roller Name Role Phone Steve Nguyen MD Primary Care Provider [phone] Encounter Details Date Type Department Care Team (Late st Contact Info) Description 06/25/2022 Documentation Only [facility] [address] [place] [address] [facility] [place] [address] [place] [phone] Social History Tobacco Use Types Packs/Day [...] visit [facility] [address] [place] [phone] documented as of this encounter Visit Diagnoses Not on filedocumented in this encounter Care Teams Pipe Roller Relationship Specialty Start Date End Date Steve Nguyen MD [address] [place] PCP - General 04/19/19 documented as of this encounter
--- OUTSIDE RECORDS SUMMARY | 2025-03-10 12:14 | XMS_ITS | Encounter Summary ---
Author Organization [facility] Address [address] [place] [address] Phone Care Team Providers Care Billiard Table Assembler Name Role Phone Steve Nguyen MD Primary Care Provider [phone] Encounter Details Date Type Department Care Team (Late st Contact Info) Description 05/22/2022 Documentation Only [facility] [address] [place] [address] Hermelinda Colunga [address] [place] [phone] Social History Tobacco Use Types Packs/Day [...] visit [facility] [address] [place] [phone] documented as of this encounter Visit Diagnoses Not on filedocumented in this encounter Care Teams Billiard Table Assembler Relationship Specialty Start Date End Date Steve Nguyen MD [address] [place] PCP - General 04/19/19 documented as of this encounter
--- OUTSIDE RECORDS SUMMARY | 2025-03-10 12:14 | XMS_ITS | Encounter Summary ---
Author Organization [facility] Address [address] [place] [address] Phone Care Team Providers Care Guidance And Control System Engineer Name Role Phone Steve Nguyen MD Primary Care Provider [phone] Encounter Details Date Type Department Care Team (Late st Contact Info) Description 05/23/2021 Documentation Only [facility] [address] [place] [phone] Bakari Wells MD [address] [place] [address] [place] [phone] Social History Tobacco Use Types Packs/Day Years [...] visit [facility] [address] [place] [phone] documented as of this encounter Visit Diagnoses Not on filedocumented in this encounter Care Teams Guidance And Control System Engineer Relationship Specialty Start Date End Date Steve Nguyen MD [address] [place] PCP - General 04/19/19 documented as of this encounter
--- OUTSIDE RECORDS SUMMARY | 2025-03-10 12:14 | XMS_ITS | Encounter Summary ---
Author Organization [facility] Address [address] [place] [address] Phone Care Team Providers Care Colors Custodian Name Role Phone Steve Nguyen MD Primary Care Provider [phone] Encounter Details Date Type Department Care Team (Late st Contact Info) Description 03/21/2022 Documentation Only [facility] [address] [place] [address] Sahara Rousseau PA [address] [place] [address] Social History Tobacco Use Types [...] visit [facility] [address] [address] documented as of this encounter Visit Diagnoses Not on filedocumented in this encounter Care Teams Colors Custodian Relationship Specialty Start Date End Date Steve Nguyen MD [facility] [address] [place], [place] PCP - General 04/19/19 documented as of this encounter
--- OUTSIDE RECORDS SUMMARY | 2025-03-10 12:14 | XMS_ITS | Encounter Summary ---
Author Organization [facility] Address [address] [place] [address] Phone Care Team Providers Care Supervisor Feed Mill Name Role Phone Steve Nguyen MD Primary Care Provider [phone] Reason for Referral * Physical Therapy (Routine) - Closed Specialty Diagnoses / Procedures Referred By Patrick mak Referred To Contact Physical Therapy Diagnoses Encounter for rehabilitation System, Provider Not In, [facility] [phone] [place] [address] Phone: tel: Referral ID Status Reason Start Date Expiration Date Visits Re quested Visits Authorized [id number] Closed 09/04/2017 06/14/2018 30 30 Encounter Details Date Type Department Care Team (Latest Contact Info) Description 09/04/2017 Transcribe Orders [facility] [address] [place] [address] Steve Nguyen MD [address] [place] [address] [address] Encounter for rehabilitation (Primary Dx) Social [...] Diagnoses Orde r Schedule Ambulatory referral to [facility] Physical Therapy Outpatient Referral Routine Encounter for rehabilitation Ordered: 09/04/2017 documented as of this encounter Visit Diagnoses Diagnosis Encounter for rehabilitation- Primary documented in this encounter Additional Health Concerns Infection Onset Date Last Indicated Resolved Time CoV-Risk 04/02/2021 04/02/2021 04/12/2021 1:25 AM EDT MRSA 06/09/2023 06/09/2023 documented as of this encounter Care Teams Supervisor Feed Mill Relationship Specialty Start Date End Date Steve Nguyen MD [address] [facility] [address] [place] [phone] PCP - General 04/02/17 documented as of this encounter Additional Source Comments The information contained in this document represents components of the legal health record. It is not the complete legal health record.[facility]
--- OUTSIDE RECORDS SUMMARY | 2025-03-10 12:14 | XMS_ITS | Clinical Summary ---
Author Organization [facility] Address [address] [place] [id number] Phone Care Team Providers Care Risk And Insurance Manager Name Role Phone Steve Nguyen MD Primary Care Provider Allergies Active Allergy Reactions Criticality Noted Date Comments Ferumoxytol Sweating Medium 04/02/2021 Chest pain Medications pravastatin (PRAVACHOL) 20 MG tablet Take 1 tablet by mouth daily. Active losartan (COZAAR) 100 MG tablet [The details of the medication are not available because there are pending changes by a home health clinician.] 90 tablet 3 9 Active Additional Information Patient not taking.Reason: Therapy complete, Reported on 05/28/2024 hydrOXYchloroQU INE (PLAQUENIL) 200 mg tablet Take 1 tablet (200 mg total) by mouth every other day. 0 Active apixaban (ELIQUIS) 2.5 mg Take 2.5 mg by mouth 2 (two) times a day. Active albuterol 90 mcg/actuation inhaler INHALE 2 PUFFS INTO THE LUNGS EVERY 6 HOURS NEEDED FOR WHEEZE 8.5 g 3 Active amLODIPine (NORVASC) 5 MG tablet Take 5 mg by mouth. 2 Active pantoprazole (PROTONIX) 40 MG tablet Take 40 mg by mouth 2 (two) times a day (once in the morning and once in the afternoon). 4 Active acetaminophen (TYLENOL) 325 mg tablet Take 325 mg by mouth every 4 (four) hours as needed for pain (specific location in comments). 4 Active metoprolol tartrate (LOPRESSOR) 25 MG tablet Take 1 tablet by mouth 2 (two) times a day. 4 Active ergocalciferol, vitamin D2, 50 mcg (2,000 unit) Cap Take 50 MicroGram by mouth daily. 4 Active midodrine (PROAMATINE) 5 MG tablet Take 5 mg by mouth 3 (three) times a week. Take 1 hour prior to dialysis on , and Sat 4 Active sevelamer carbonate (RENVELA) 800 mg tablet Take 800 mg by mouth 3 (three) times a day with meals. 4 Active epoetin gaby (EPOGEN,PROCRIT ) 10,000 unit/mL injection Inject 10,000 Units under the skin 2 (two) times a week. 2 times per week as directed 4 Active traMADoL (ULTRAM) 50 mg tablet Take 50 mg by mouth nightly at bedtime. 4 Active gabapentin (NEURONTIN) 300 MG capsule Take 300 mg by mouth nightly at bedtime. 4 Active cefepime (MAXIPIME) 1 gram injection Inject 1 g into the vein 3 (three) times a week. post dialysis 4 Active vancomycin (VANCOCIN) 750 mg/150 mL PgBk injection Inject 750 mg into the vein 3 (three) times a week. post dialysis 4 Active Active Problems Problem Noted Date Diagnosed Date Morbid obesity due to excess calories 02/20/2024 Atherosclerosis of both carotid arteries 023 Congestive heart failure 03/09/2023 Lupus erythematosus 03/09/2023 Class 1 obesity 09/15/2022 Stage 5 chronic kidney disease 07/29/2022 Anemia in chronic kidney disease 06/24/2022 Atrial fibrillation 06/03/2022 Chronic depression 06/03/2022 Chronic obstructive pulmonary disease 06/03/2022 Gastroesophageal reflux disease 06/03/2022 Osteoarthritis 06/03/2022 Hyperphosphatemia 03/24/2022 Iron deficiency anemia 11/21/2020 PVD (peripheral vascular disease) 09/27/2020 PAD (peripheral artery disease) 09/27/2020 Onychomycosis 09/27/2020 Idiopathic peripheral neuropathy 09/27/2020 Lipodermatosclerosis of both lower extremities 0 09/17/2020 Assessment & Plan (09/17/2020 1:46 PM EDT): He has severe skin thickening and discoloration bilaterally. He recently had a right GSV ablation. On the left side, his has recently noted that there is an odor coming from his leg. The patient states that he has had intermittent issues with wounds on that leg for about a year. He has no fevers. The open areas are oozing a clear liquid, no active oozing at this time. We will arrange for a visit with the wound clinic/infectious disease for consideration of antibiotics as well as wound care. The patient is already scheduled to see the lymphedema clinic. Dyspnea on exertion 01/04/2020 Assessment & Plan (08/21/2020 3:29 PM EST): He reports that his shortness of breath has worsened in the past 3 months and he is now reporting some intermittent chest discomfort that happens at rest and with activity. We will order a pharmacological nuclear stress test to rule out any ischemia. In addition we will draw a proBNP and a BMP today. Does appear euvolemic on exam. Assessment & Plan (03/21/2020 3:50 PM EDT): This seems to be chronic in nature. He did not have a proBNP drawn as requested. I have reordered this for him to obtain prior to his next follow-up along with his BMP. He did have an echocardiogram on 03/08/2020 showing no significant change from previous echo. Please see full report for details. It is unclear the etiology behind his ongoing PETERSEN at this time. He has also been requested to follow-up with our drug room operator which she has not yet done. Assessment & Plan (01/04/2020 7:22 AM EDT): It has been sometime since we looked at his overall ventricular function and with his dyspnea I had asked him to have an echocardiogram and a proBNP drawn. Because of his rising creatinine I have also decrease his furosemide to a single 40 mg dose. ZEYAD on CPAP 01/04/2020 Assessment & Plan (04/04/2020 3:09 PM EDT): He has yet to make his follow-up appointment with Dr. Love. I have encouraged him to do so. Assessment & Plan (01/04/2020 7:28 AM EDT): Brianna Scruggs tells me that he has not seen a sleep physician in years so I have asked him to follow-up with Diabetic nephropathy associa arutro with type 2 diabetes mellitus 08/23/2019 Gout 08/23/2019 Hyperparathyroidism due to renal insufficiency 0 08/23/2019 Ventricular ectopy 08/16/2018 Assessment & Plan (01/04/2020 7:22 AM EDT): Occasional premature contractions on exam but asymptomatic. Assessment & Plan (12/24/2018 4:26 PM EDT): Remains asymptomatic. Assessment & Plan (09/22/2018 9:45 AM EDT): I am reluctant to treat his ventricular ectopy without symptoms. He is on a fair amount of medications already and his left ventricular function is in the normal range. I am going to suggest that we just follow this and I will repeat his Holter down the line especially if he develops symptoms. Hyperlipidemia 09/01/2017 Assessment & Plan (03/21/2020 3:51 PM EDT): Continue pravastatin. Assessment & Plan (01/04/2020 7:23 AM EDT): Maintained on his statin and recent profile fine with an LDL in the high 60s and HDL of 40. Assessment & Plan (06/29/2019 4:07 PM EST): Statin is unchanged but he has not had his labs drawn. He is agreed to have that done shortly. Assessment & Plan (12/24/2018 4:25 PM EDT): Good profile with LDL in the 70s and HDL in the 40s. Creatinine is 1.5 with a BUN of 23 and a potassium of 4.2. No changes and will repeat in 6 months. Assessment & Plan (08/16/2018 4:33 PM EST): Well-controlled with LDL 64, HDL 49 and triglycerides 65. Assessment & Plan (02/26/2018 3:08 PM EDT): Recent profile is excellent with an LDL of 62, HDL 54 and triglycerides 49. Creatinine is slightly improved at 1.4. Alkaline phosphatase was elevated but transaminases were normal. Assessment & Plan (09/02/2017 1:54 PM EDT): Remains on his statin. LDL is now 60 with an HDL of 43 and triglycerides 97. LFTs are normal. Creatinine is 1.5. Essential hypertension 09/01/2017 Assessment & Plan (09/24/2020 3:00 PM EDT): Blood pressure today 136/74. He is on losartan 100 mg daily, nifedipine 90 mg daily, furosemide 40 mg daily, hydralazine 50 mg 3 times daily. He will remain on this medication. Assessment & Plan (08/21/2020 3:28 PM EST): Pressure today was 148/50. He is on losartan 100 mg daily, nifedipine 90 mg daily, furosemide 80 mg daily. Assessment & Plan (04/04/2020 3:08 PM EDT): Difficult to control. His creatinine is now up to 2.1. I have pushed his nifedipine to 120 mg but decrease his furosemide to every other day unless he becomes more dyspneic. I am concerned about his increasing renal insufficiency and will be sure that Dr. Wells is aware. His next visit here will be in about [address] Varnre who had performed his venous ablation. Assessment & Plan (03/21/2020 4:19 PM EDT): Blood pressure in the office today 160/64, on my recheck 162/58. This seems to be historically difficult to control. Since we last saw the patient, his nifedipine was increased from 30 to 60 mg. I will increase this further to 90 mg. His Lasix had also been cut in half from 80 mg to 40 mg due to kidney dysfunction. He has continued on the 40 mg dose. I will have him repeat a BMP prior to his next follow-up. We also discussed a sodium restriction more strictly at home. Patient stated understanding. Assessment & Plan (01/04/2020 7:22 AM EDT): Fair control. No additional changes. Assessment & Plan (06/29/2019 4:06 PM EST): Fair control today. No changes. Assessment & Plan (12/24/2018 4:24 PM EDT): Mildly elevated here and at home. I have increased his losartan to 100 mg. Assessment & Plan (09/22/2018 9:45 AM EDT): Controlled today. No changes. Assessment & Plan (08/16/2018 4:33 PM EST): Fair control. However his creatinine has gone from about 1.4-1.7. I have eliminated the hydrochlorothiazide from his Hyzaar and asked him to decrease his daily furosemide to 40 mg unless the edema gets worse. I will have his metabolic profile repeated in about 2 or 3 months. Assessment & Plan (02/26/2018 3:06 PM EDT): Mildly elevated. Continue to monitor. Assessment & Plan (09/02/2017 1:55 PM EDT): Well-controlled on present therapy. Bradycardia 09/01/2017 Assessment & Plan (08/16/2018 4:29 PM EST): His ECG today reveals a sinus rhythm with right bundle branch block and PVCs and a pattern of bigeminy. He is unaware of his ectopy and has no lightheaded spells. We will place a Holter today to be sure he does not have ventricular tachycardia. He has known normal left ventricular function. Venous insufficiency 09/01/2017 Assessment & Plan (09/24/2020 2:59 PM EDT): Recent right GSV ablation. There are no active issues to the right leg. He he will need a repeat ultrasound in 3 months after ablation with follow-up after ultrasound has been completed. Assessment & Plan (09/17/2020 1:47 PM EDT): He recently had a right GSV ablation. He has no active issues to his right leg. He has a 1 week post ablation ultrasound pending. He is scheduled to come into the office for a follow-up to that. Assessment & Plan (08/21/2020 3:29 PM EST): He does have chronic venous insufficiency and does have a right leg ablation scheduled for the end of August with Dr. Albert Murrieta. He does wear compression wraps but he states that his swelling has increased in the last few weeks. He is already on furosemide 80 mg daily with a renal functionBUN 45/creatinine 1.90. We will not increase his furosemide at this time he appears euvolemic. Assessment & Plan (06/29/2019 4:06 PM EST): Markedly improved. Assessment & Plan (12/24/2018 4:25 PM EDT): Improved. He has not been wearing his compression stockings and I told him he should. He is also not doing a lot of elevation and I emphasized it's importance. Assessment & Plan (09/22/2018 9:45 AM EDT): We will begin what I believe is going to be a series of ablations at the end of this month. Assessment & Plan (08/16/2018 4:32 PM EST): His edema she certainly is not any better and he insufficient veins on both sides from a vascular ultrasound done in 2017. The edema to my eye is worse and he now is developing wounds. He has been resistant but they gets time to at least explore the ability of ablation to decrease his edema. I have referred him to Jarvis Varner. Assessment & Plan (02/26/2018 3:06 PM EDT): Unchanged. Will consider ablation if patient agreeable. Assessment & Plan (09/02/2017 1:55 PM EDT): He does have abnormal veins which is not a surprise from his venous ultrasound. He is on interested in ablation at this level I see no reason to become more aggressive. Bilateral carotid artery disease 09/01/2017 Overview (09/02/2017): 08/2017 CAROTID Cresencio LESS THAN 50% Assessment & Plan (03/21/2020 3:46 PM EDT): Carotid ultrasound from 03/02/2020 showed 16 to 49% stenosis in right and left ICA, biphasic right and left subclavian artery and the right and left vertebral artery were demonstrating antegrade flow. This was unchanged from previous carotid ultrasound. Would recommend repeat in 1 year. Assessment & Plan (06/29/2019 4:07 PM EST): Mild disease a year and a half ago. Would consider repeat in another year. Assessment & Plan (09/02/2017 1:54 PM EDT): Recent exam if anything shows an improvement which probably means there's been no progression. Both right and left are now listed as less than 50%. The left had previously been read as 50-80%. No symptoms. Immunizations Immunization Administration Dates Next Due COVID-19 (Pre-04/06) Pfizer Vaccine, mRNA, PF ,09/27/2020 Influenza High-Dose Trivalent Preservative Free IM 04/28/2019,05/03/2018 Influenza Quadrivalent w/ Preservative IM 2016,05/12/2016 Pneumococcal polysaccharide PPSV23 01/28/2018, Family History Medical History Relation Comments CV disease Maternal Grandfather 2 Diabetes mellitus Sibling 2 Relation Status Comments Maternal Grandfather 1 Maternal Grandfather 2 Sibling 1 Sibling 2 Social History Tobacco Use Types Packs/Day Years Used Date Smoking Tobacco: Former Smokeless Tobacco: Never Tobacco Cessation:Counseling Given: Not Answered Alcohol Use Standard Drinks/Week Comments Not Currently 0 (1 standard drink = 0.6 oz pur e alcohol) Home Health Assessment: Transportation Answer Date Recorded Lack of Transportation (Medical) No 06/10/2024 Lack of Transportation (Non-Medical) No 06/10/2024 Patient Unable or Declines to Respond No 06/10/2024 Education Answer Date Recorded Are you interested in more education? Not on mart e 10/10/2022 Are you concerned about learning? Not on file 10/10/2022 No 10/10/2022 No 10/10/2022 Digital Access Answer Date Recorded No 11/08/2022 No 11/08/2022 Reliable internet access at home? Not on file 11/08/2022 Device with a working camera? Not on file Sex and Gender Information Value Date Recorded Sex Assigned at Male 08/27/2021 8:48 PM EDT Legal Sex Male 9:58 PM EDT Gender Identity Male 08/27/2021 8:48 PM EDT Sexual Orientation Straight 08/27/2021 8: 48 PM EDT Last Filed Vital Signs Vital Sign Reading Time Taken Comments Blood Pressure 102/64 06/10/2024 10:19 AM EST Pulse 64 06/10/2024 10:19 AM EST Temperature 36.1 C (97 F) 06/10/2024 10:19 AM EST Respiratory Rate 14 05/02/2024 11:00 AM EST Oxygen Saturation 98% 06/10/2024 10:19 AM EST Inhaled Oxygen Concentration - - Weight 104 kg (229 lb 4.5 oz) 02/20/2024 11:37 A M EDT Height 180.3 cm (5' 11 ) 02/20/2024 11:37 AM EDT Body Mass Index 31.98 02/20/2024 11:37 AM EDT Plan of Treatment Health Maintenance Due Date Last Done Comments Adult Td,Tdap Booster 1953 DEPRESSION SCREENING 1965 SMOKING Hx and SMOKELESS TOBACCO SCREENING 1966 COLOGUARD 1998 COLONOSCOPY 1998 COLORECTAL CANCER SCREENING 1998 FIT TEST 1998 FOBT 1998 SIGMOIDOSCOPY 1998 VIRTUAL COLONOSCOPY 1998 ZOSTER VACCINES (1 of 2) 2003 RSV VACCINE (1 - Risk 60-74 years 1-dose series) 2013 ABDOMINAL AORTIC ANEURYSM (AAA) SCREENING 2018 PNEUMOCOCCAL VACCINES (50+ years) (2 of 2 - PCV) 01/28/2019 01/28/2018, 05/04/2012 DIABETIC EYE EXAM 06/09/2023 BLOOD PRESSURE 12/09/2024 06/10/2024 HEMOGLOBIN A1C 12/21/2024 06/23/2024, 01/0 02/2025, 08/05/2022, Additional history exists INFLUENZA VACCINE (#1) 2025 , 04/28/2019, 05/03/2018, Additional history exists COVID-19 VACCINE ( season) 2025 10/18/2020, 09/27/2020 POTASSIUM LEVEL 05/28/2025 05/28/2024, 04/15, 04/14/2024, Additional history exists CREATININE LEVEL 06/23/2025 06/23/2024, 10/2023, 04/21/2024, Additional history exists LIPID PANEL 06/23/2025 06/23/2024, 06/15, 04/04/2020, Additional history exists HEPATITIS C SCREENING Completed 06/23/2024 HEPATITIS A VACCINES Aged Out No long er eligible based on patient's age to complete this topic HIB VACCINES Aged Out No longer eligi ble based on patient's age to complete this topic MENINGOCOCCAL VACCINES (ACWY) Aged Out No longer eligible based on patient's age to complete this topic MENINGOCOCCAL VACCINES (B) Aged Out N o longer eligible based on patient's age to complete this topic Medical Devices Not on file Procedures Procedure Name Priority Date/Time Associated Diagnosis Comments BASIC METABOLIC PANEL Routine 08/31/2020 12:28 PM EDT Dyspnea on exertion HEMOGLOBIN A1C Routine 06/29/2020 3:44 PM EST Parenchymal renal hypertension, stage 1 through stage 4 or unspecified chronic kidney disease Type 2 diabetes mellitus with diabetic nephropathy, without long-term current use of insulin LIPID PANEL Routine 06/29/2020 3:44 PM EST Pure hypercholesterolemia from Last 3 Months or Most Recently Relevant to Health Maintenance Results * (ABNORMAL) Basic metabolic panel (08/31/2020 12:28 PM EDT) SODIUM 141 133 - 146 mmol/L [facility] CHLORIDE 107 96 - 108 mmol/L [facility] POTASSIUM 4.2 3.3 - 5.1 mmol/L [facility] CO2 21 21 - 35 mmol/L [facility] BUN 59(H) 6 - 19 mg/dL [facility] CREATININE 2.60(H) 0.5 - 1.5 mg/dL [facility] GLUCOSE 85 70 - 99 mg/dL [facility] CALCIUM 8.7 8.4 - 10.3 mg/dL [facility] EGFR 24(L) >59 mL/min/1.7 3m2 [facility] Comment:Estimated glomerular filtration rate calculated using the CKD-EPI equation. ANION GAP 17 10 - 20 mmol/L [facility] Blood 08/31/2020 12:2 8 PM EDT 08/31/2020 12:32 PM EDT us Melissa Ivy DNP LAB BLOOD ORDERABLES Final Result Performing Organization Address [facility]/ZIP Co de Phone Number [address] [address] * Hemoglobin A1c (06/29/2020 3:44 PM EST) HEMOGLOBIN A1C 5.4 4.3 - 5.8 % [facility] Blood 06/29/2020 3:44 PM EST 06/29/2020 3:54 PM EST us Bakari Wells MD LAB BLOOD ORDERABLES Final Resul t Performing Organization Address City/[facility]/ZIP Co de Phone Number [address] [address] * (ABNORMAL) Lipid panel (06/29/2020 3:44 PM EST) HDL 46 mg/dL [facility] Comment: Interpretation <40 mg/dL: Low HDL cholesterol (major risk factor for CHD) Greater than or equal to 60 mg/dL: High HDL cholesterol ( negative risk factor for CHD) HDL - cholesterol is affected by a number of factors, e.g. smoking, excerise, hormones, sex and age. CHOLESTEROL 116 0 - 240 mg/dL [facility] TRIGLYCERIDES 68 30 - 160 mg/dL [facility] LDL 56 50 - 129 mg/dL [facility] Comment: LDL levels in terms of risk for coronary heart disease: <100 mg/dL: Optimal 100-129 mg/dL: Near or above optimal 130-159 mg/dL: Borderline high 160-189 mg/dL: High >190 mg/dL: Very High CARDIAC RISK RATIO 2.5(L) 3.4 - 5.0 C [facility] Blood 06/29/2020 3:44 PM EST 06/29/2020 3:54 PM EST us Loki Cuevas MD LAB BLOOD ORDERABLES Final Resu lt [facility] [address] [place] [address] from Last 3 Months or Most Recently Relevant to Health Maintenance Additional Health Concerns Infection Onset Date Last Indicated MRSA 06/09/2023 06/09/2023 Insurance [place] [id number] [facility] [employer] MEDEX SUPPLEMENT [facility] AARP MEDICARE REPLACEMENT MEDICARE PART A & B [facility] [employer] MEDEX SUPPLEMENT [facility] AARP MEDICARE REPLACEMENT MEDICARE PART A & B [facility] MEDICARE PART A & B [place] MEDICARE PART A & B [place] [employer] MEDEX SUPPLEMENT [facility] MEDICARE REPLACEMENT MEDICARE PART A & B [facility] MEDICARE PART A & B [place] [employer] MEDEX SUPPLEMENT [facility] MEDICARE REPLACEMENT MEDICARE PART A & B [employer] MEDEX SUPPLEMENT [facility] AAR MEDICARE REPLACEMENT MEDICARE PART A & B [place] [employer] MEDEX SUPPLEMENT [facility] AAR MEDICARE REPLACEMENT Care Teams Risk And Insurance Manager Relationship Specialty Start Date End Date Steve Nguyen MD [address] [place] [address] PCP - General 04/02/17 Additional Source Comments The information contained in this document represents components of the legal health record. It is not the complete legal health record.[facility]
--- OUTSIDE RECORDS SUMMARY | 2025-03-10 12:14 | XMS_ITS | Clinical Summary ---
Author Organization [facility] Address [address] [place] [address] Care Team Providers Care Network Intelligence Analyst Name Role Phone Steve Nguyen MD Primary Care Provider [phone] Allergies Active Allergy Reactions Criticality Noted Date [...] daily. 0 04/02/2022 Active epoetin gaby (PROCRIT) 47820 UNIT/ML injection Inject 1 mL (20,000 Units [...] 01/28/2018, 12/13/2013, 05/04/2012 COVID-19 Vaccine (3 - 2024-26 season) 2025 10/18/2020, 09/27/2020 Influenza Vaccine (#1) 2025 , 03/26/2021, 04/28/2019, Additional history exists RSV Adult > 60+ Yrs or (1 - 1-dose 75+ series) 01/28/2028 Hepatitis B Vaccines Aged Out No long er eligible based on patient's age to complete this topic RSV Ped < 20 months Aged Out No longe r eligible based on patient's age to complete this topic Care Teams Network Intelligence Analyst Relationship Specialty Start Date End Date Po, tSeve Dawn MD [address] [place] [address] Dr [address] [facility] [place] [address] PCP - General Internal Medicine 06/18/22
--- OUTSIDE RECORDS SUMMARY | 2025-03-10 12:14 | XMS_ITS | Encounter Summary ---
Author Organization [facility] Address [address] [place] [address] Phone Care Team Providers Care Textile Bag Sewer Name Role Phone Steve Nguyen MD Primary Care Provider [phone] Encounter Details Date Type Department Care Team (Late st Contact Info) Description 06/20/2022 Documentation Only [facility] [address] [place] [address] Hermelinda Colunga [address] [place] [phone] Social History Tobacco Use Types Packs/Day [...] visit [facility] [address] [place] [id number] documented as of this encounter Visit Diagnoses Not on filedocumented in this encounter Care Teams Textile Bag Sewer Relationship Specialty Start Date End Date Steve Nguyen MD [address] [place] PCP - General 04/19/19 documented as of this encounter
--- OUTSIDE RECORDS SUMMARY | 2025-03-10 12:15 | XMS_ITS | Patient Health Record ---
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 He is originally from [place]. Stopped smoking in 2011; no sig alcohol . He is originally from [place]. Stopped smoking in 2011; no sig alcohol since age 48; heavy drinker from age 18 to age 48. He is originally from [place]. Stopped smoking in 2011; no sig alcohol since age 48; heavy drinker from age 18 to age 48. He is originally from [place]. Stopped smoking in 2011; no sig alcohol since age 48; heavy drinker from age 18 to age 48. He is originally from [place]. Stopped smoking in 2011; no sig alcohol since age 48; heavy drinker from age 18 to age 48. He is originally from [place]. Stopped smoking in 2011; no sig alcohol since age 48; heavy drinker from age 18 to age 48. He is originally from [place]. 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 ascites (K70.30) Active confirmed Problem 531715484 Alcoholic cirrhosis of liver with ascites (K70.31) Active confirmed Problem 77688908 Constipation, unspecified constipation type (K59.00) Active confirmed Problem 085066968 Hx of adenomatou s colonic polyps (Z86.010) Active confirmed Problem Chronic liver disease (677524342) Chronic liver disease (K76.9) Active confirmed Problem 130575452 Lower extremity edema (R60.0) Active confirmed Plan Of Treatment Pending Test Test Name Order Date LIVER PROFILE 07/18/2022 LIVER PROFILE 11/20/2021 CBC w DIFF 07/18/2022 CBC w DIFF 11/20/2021 PROTHROMBIN TIME (PT, INR) 11/20/2021 PROTHROMBIN TIME (PT, INR) 01/01/2021 HEPATITIS B, C PROFILE 01/01/2021 [id number] (A1A) 01/01/2021 ALPHA-FETOPROTEIN,TUMOR MARKER 2 ALPHA-FETOPROTEIN,TUMOR MARKER [...] Insured Coverage Start Date Coverage End Date [facility] [address] [address] [place] [phone] [id number] 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 Birch--Dx'd in 2019 Colonoscopy 05/2018 with removal of a sm all tubular adenoma Chronic liver disease probab ly due to EtOH seen on 12/2020 CT scan which was suggestive of cirrhosis with minimal ascites and no sign of splenomegaly--describes a neg. EGD in [place] before moving to [place]; his liver w/u was negative including normal [...] HD fistula left arm 04/2022 Laparotomy at [facility] in [facility] 2022 for what sounds like a small bowel obstruction and some small bowel resection
--- NOTE | 2025-03-10 12:16 | PC.NURSE ---
Patient with 3 ulcers to LE - One to RLE and two to LLE. Wounds cleaned and xeroform/DSD applied
--- NOTE | 2025-03-10 12:23 | MHC.EDTECH ---
Patient did well on ambulation trial no sigh of distress or dizziness. Nurse aware
[2025-03-10 13:49] VITALS: BP 145/58; PULSE 60; RESP 20; TEMP 36.7; O2SAT 95
== END 2025-03-10 13:51 | disposition home or self-care (01) ==
PROVIDERS: Emergency Provider Emergency Medicine; PCP Internal Medicine
DX: R53.1 Weakness (principal); I87.8 Other specified disorders of veins; E11.22 Type 2 diabetes mellitus with diabetic chronic kidney disease; I13.2 Hypertensive heart and chronic kidney disease with heart failure and with stage 5 chronic kidney disease, or end stage renal disease; I50.32 Chronic diastolic (congestive) heart failure; N18.6 End stage renal disease; Z99.2 Dependence on renal dialysis; I48.0 Paroxysmal atrial fibrillation; Z79.899 Other long term (current) drug therapy; Z91.81 History of falling
CPT/HCPCS: 99283; 99284

== ENCOUNTER → 2025-03-22 23:59 | Outpatient (BNV) | payer MEDICARE, SELFPAY ==
--- NOTE | 2025-04-10 21:37 | A.OFFVIS_ITS ---
Intake Visit Reasons: Remote device check- [facility] Allergies No Known Allergies (No Known Allergies*) Allergy (Verified 03/10/25 10:35) [facility] Medical History (Updated 03/11/25 @ 00:00 by Oly Reeves) Type 2 diabetes mellitus with hyperglycemia ESRD (end stage renal disease) Blood clot in arm (~04/11/24) CKD (chronic kidney disease) stage 4, GFR 15-29 ml/min Obstructive sleep apnea HTN (hypertension) Dermatitis associated with moisture from stool incontinence Clostridioides difficile diarrhea Urinary retention with incomplete bladder emptying Pacemaker Pancytopenia Incomplete emptying of bladder due to benign prostatic hyperplasia Acute kidney injury superimposed on chronic kidney disease Fistula Paroxysmal A-fib Diastolic heart failure Pulmonary hypertension Depression, major Afib Bradycardia Scrotal edema Anasarca Cirrhosis Lymphedema Osteoarthritis Peripheral neuropathy BPH (benign prostatic hyperplasia) Venous stasis dermatitis Obesity (BMI 30-39.9) Hypercholesterolemia Peripheral vascular disease Pulmonary hypertension Essential thrombocytopenia Anemia COPD (chronic obstructive pulmonary disease) Diabetic retinopathy Chronic kidney disease Lumbar degenerative disc disease High cholesterol Edema Gout Surgical History S/P cardiac catheterization Hx of cardiac pacemaker History of bowel diversion surgery History of gastric surgery H/O prior ablation treatment History of carpal tunnel release History of bilateral cataract extraction History of tonsillectomy Family History Father Prostate cancer CVD (cardiovascular disease) Mother Hemochromatosis Brother Motor vehicle accident Sister CAD (coronary artery disease) Maternal Grandfather Myocardial infarction Social History Household Members: Spouse Housing: House Do you presently have visiting nurse or other home services: No Alcohol intake: never Patient Tobacco Use Status: Former Tobacco user Tobacco use type: Cigarette e-Cigarette/Vaping Use: Former Use Second Hand Smoke Exposure: Yes Advance Directives Date on File: 11/06/22 service: No Current occupational status: retired Cognitive needs: Yes (Cane) Hearing needs: Yes Vision needs: Yes (Glasses) Office Procedures Cardiac Device Check Cardiac Device Check Details: LBBA 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 [id number] Cardiac Device Interrogation, pacemaker Procedure code (CPT) selection complete Assessment & Plan Assessment & Plan (1) Cardiomyopathy: Code(s): I42.9 - Cardiomyopathy, unspecified Category: Medical Qualifiers: Cardiomyopathy type: unspecified Qualified Code(s): I42.9 - Cardiomyopathy, unspecified Plan Coding Level of Care Code Procedure Only Diagnoses Cardiomyopathy, unspecified type I42.9 Cardiomyopathy type: unspecified CPT Codes Cardiac Device Check - Cardiac Device 12: [id number] Cardiac Device Int errogation, pacemaker ([id number])
== END ==
PROVIDERS: PCP Internal Medicine; Visit Provider Internal Medicine Cardiovascular Disease
DX: I42.9 Cardiomyopathy, unspecified (principal); Z95.0 Presence of cardiac pacemaker
CPT/HCPCS: 93294

== ENCOUNTER → 2025-05-24 10:15 | Outpatient (BNV) | payer MEDICARE, SELFPAY | PROVIDERS: PCP Internal Medicine; Visit Provider Internal Medicine Cardiovascular Disease | DX: Z45.018 Encounter for adjustment and management of other part of cardiac pacemaker (principal) | CPT/HCPCS: 93297 ==